=== PATIENT | female | born 1960 | race Caucasian/White ===

== ENCOUNTER 2019-07-14 09:30 | Inpatient (IN) | payer OTHER ==
[2019-07-14] MEDS ORDERED: Ondansetron 4 MG/2 ML SDV IVPUSH ONE (10:16)
[2019-07-14] MEDS ORDERED: Sodium Chloride 0.9% 10 ML Syringe FLUSH PRN ×2 (10:16→15:26)
[2019-07-14] MEDS ORDERED: HYDROmorphone 0.5 MG/0.5 ML Syringe IVPUSH ONE ×2 (10:16→12:26)
[2019-07-14] MEDS ORDERED: diphenhydrAMINE 50 MG/ML SDV IVPUSH ONE (10:17)
--- NOTE | 2019-07-14 10:21 | EDM.PDOC ---
ED HPI GENERAL MEDICAL PROBLEM - General Chief Complaint: General Stated Complaint: RECTAL PAIN Time Seen by Provider: 07/14/19 10:06 Source of Information: Reports: Patient, Family, RN Notes Reviewed History Limitations: Reports: No Limitations - History of Present Illness INITIAL COMMENTS - FREE TEXT/NARRATIVE: 58-year-old female presents emergency department with a complaint of abdominal pain she has a history of extensive abdominal surgeries does use Neulasta me she is also had troubles with hypomagnesemia, she usually controls her pain with tramadol however she has had increased abdominal pain with burning reflux type symptoms in her chest she also has a solitary kidney. No fevers no shortness of breath or chest pain she has noticed a change in her ileostomy output more liquidy Middle Abdomen Pain Score (Numeric/FACES): 8 - Related Data Allergies Allergy/AdvReac Type Severity Reaction Status Date / Time No Known Allergies Allergy Verified 07/14/19 09:52 Home Meds: Home Meds Acetaminophen [Acetaminophen Extra Strength] 1,000 mg PO Q4HR PRN 06/17/19 [ History] Cyanocobalamin (Vitamin B-12) [Cyanocobalamin Injection] 1 ml IM ASDIRECTED 12/28 [History] DULoxetine [Cymbalta] 60 mg PO DAILY 06/17/19 [History] Imipramine HCl 200 mg PO BEDTIME 06/17/19 [History] Magnesium Chloride [Mag Delay] 192 mg PO TID 06/17/19 [History] Melatonin 3 mg PO BEDTIME 06/17/19 [History] Nystatin [Nystatin Oint] 1 dose TOP BID PRN 06/17/19 [History] OLANZapine [ZyPREXA] 5 mg PO Q12HR PRN 06/17/19 [History] Ondansetron [Zofran ODT] 4 mg PO Q4HR PRN 06/17/19 [History] Pedi Multivit No.25/Folic Acid [Flintstones Multivit Chew Tab] 1 tab PO DAILY [History] SUMAtriptan [Imitrex] 50 mg PO BTNUNITS PRN 06/17/19 [History] tiZANidine [Zanaflex] 4 mg PO BID PRN 06/17/19 [History] traMADol [Ultram] 100 mg PO QID 06/17/19 [History] Past Medical History HEENT History: Reports: Impaired Vision Gastrointestinal History: Reports: Bowel Obstruction, Other (See Below) Other Gastrointestinal History: hernia, multiple bowel surgerys [employer]NE[employer]ING [employer] History: Reports: Neurological History: Reports: Migraines Psychiatric History: Reports: Anxiety Hematologic History: Reports: B12 Deficiency - Past Surgical History Head Surgeries/Procedures: Reports: None HEENT Surgical History: Reports: Adenoidectomy, Tonsillectomy Cardiovascular Surgical History: Reports: Cardiac Ablation GI Surgical History: Reports: Appendectomy, Colonoscopy, EGD, Other (See Below) Other GI Surgeries/Procedures: hernia, has iliostomy Female Surgical History: Reports: Hysterectomy Neurological Surgical History: Reports: None Dermatological Surgical History: Reports: None Social & Family History - Tobacco Use Smoking Status *Q: Never Smoker Second Hand Smoke Exposure: No - Caffeine Use Caffeine Use: Reports: None - Recreational Drug Use Recreational Drug Use: No ED ROS GENERAL - Review of Systems Review Of Systems: See Below Constitutional: Denies: Fever, Chills HEENT: Reports: No Symptoms Respiratory: Reports: No Symptoms Cardiovascular: Reports: No Symptoms GI/Abdominal: Reports: Abdominal Pain, Nausea. Denies: Vomiting Psychiatric: Reports: Anxiety ED EXAM, GENERAL - Physical Exam Exam: See Below Exam Limited By: No Limitations General Appearance: Alert, Mild Distress Head: Atraumatic, Normocephalic Neck: Normal Inspection, Supple, Non-Tender, Full Range of Motion Respiratory/Chest: No Respiratory Distress, Lungs Clear, Normal Breath Sounds, No Accessory Muscle Use, Chest Non-Tender Cardiovascular: Regular Rate, Rhythm, No Murmur GI/Abdominal: Soft, Tender Course - Vital Signs Last Recorded V/S: Last Vital Signs Temp 97.4 F 07/14/19 09:55 Pulse 84 07/14/19 13:56 Resp 10 L 07/14/19 13:56 BP 137/79 07/14/19 13:56 Pulse Ox 97 07/14/19 13:56 - Orders/Labs/Meds Orders: Active Orders 24 hr Category Date Time Status Peripheral IV Care [RC] . DIRECTED Care 07/14/19 10:16 Active Abdomen 1V Upright [CR] Stat Exams 07/14/19 10:19 Taken Lactated Ringers [Ringers, Lactated] 1,000 ml Med 07/14/19 10:30 Active IV ASDIRECTED Magnesium Sulfate/Water [Magnesium Sulfate in Water Med 07/14/19 11:22 Active Premix] 2 gm Premix Bag 1 bag IV ONETIME Sodium Chloride 0.9% [Saline Flush] Med 07/14/19 10:16 Active 10 ml FLUSH ASDIRECTED PRN Peripheral IV Insertion Adult [OM.PC] Urgent Oth 07/14/19 10:16 Ordered Medication Orders Lactated Ringer's (Ringers, Lactated) 1,000 mls @ 999 mls/hr IV ASDIRECTED CASSIE Last Admin: 07/14/19 10:50 Dose: 999 mls/hr Magnesium Sulfate 2 gm/ Premix 50 mls @ 12.5 mls/hr IV ONETIME ONE Stop: 07/14/19 15:21 Last Admin: 07/14/19 11:33 Dose: 12.5 mls/hr Sodium Chloride (Saline Flush) 10 ml FLUSH ASDIRECTED PRN PRN Reason: Keep Vein Open Last Admin: 07/14/19 10:51 Dose: 10 ml Labs: Laboratory Tests 07/14/19 07/14/19 07/14/19 Range/Units 10:24 10:24 10:24 WBC 6.1 (4.5-11.0) K/uL RBC 4.34 (3.30-5.50) M/uL Hgb 12.4 (12.0-15.0) g/dL Hct 39.9 (36.0-48.0) % MCV 92 (80-98) fL MCH 29 (27-31) pg MCHC 31 L (32-36) % Plt Count 211 (150-400) K/uL Neut % (Auto) 76 H (36-66) % Lymph % (Auto) 19 L (24-44) % [place] % (Auto) 5 (2-6) % Eos % (Auto) 0 L (2-4) % Baso % (Auto) 0 (0-1) % Sodium 137 L (140-148) mmol/L Potassium 4.2 (3.6-5.2) mmol/L Chloride 99 L (100-108) mmol/L Carbon Dioxide 22 (21-32) mmol/L Anion Gap 20.2 H (5.0-14.0) mmol/L BUN 16 (7-18) mg/dL Creatinine 1.5 H (0.6-1.0) mg/dL Est Cr Clr Drug Dosing 40.00 mL/min Estimated GFR (MDRD) 36 L (>60) Glucose 125 H (74-106) mg/dL Lactic Acid 3.7 H (0.4-2.0) mmol/L Calcium 10.4 H (8.5-10.1) mg/dL Magnesium (1.8-2.4) mg/dL Total Bilirubin 0.3 (0.2-1.0) mg/dL AST 24 (15-37) U/L ALT 41 (12-78) U/L Alkaline Phosphatase 167 H (46-116) U/L Troponin I < 0.017 (0.000-0.056) ng/mL Total Protein 8.8 H (6.4-8.2) g/dL Albumin 4.2 (3.4-5.0) g/dL Globulin 4.6 H (2.3-3.5) g/dL Albumin/Globulin Ratio 0.9 L (1.2-2.2) Lipase 86 (73-393) U/L 07/14/19 Range/Units 10:24 WBC (4.5-11.0) K/uL RBC (3.30-5.50) M/uL Hgb (12.0-15.0) g/dL Hct (36.0-48.0) % MCV (80-98) fL MCH (27-31) pg MCHC (32-36) % Plt Count (150-400) K/uL Neut % (Auto) (36-66) % Lymph % (Auto) (24-44) % [place] % (Auto) (2-6) % Eos % (Auto) (2-4) % Baso % (Auto) (0-1) % Sodium (140-148) mmol/L Potassium (3.6-5.2) mmol/L Chloride (100-108) mmol/L Carbon Dioxide (21-32) mmol/L Anion Gap (5.0-14.0) mmol/L BUN (7-18) mg/dL Creatinine (0.6-1.0) mg/dL Est Cr Clr Drug Dosing mL/min Estimated GFR (MDRD) (>60) Glucose (74-106) mg/dL Lactic Acid (0.4-2.0) mmol/L Calcium (8.5-10.1) mg/dL Magnesium 1.5 L (1.8-2.4) mg/dL Total Bilirubin (0.2-1.0) mg/dL AST (15-37) U/L ALT (12-78) U/L Alkaline Phosphatase (46-116) U/L Troponin I (0.000-0.056) ng/mL Total Protein (6.4-8.2) g/dL Albumin (3.4-5.0) g/dL Globulin (2.3-3.5) g/dL Albumin/Globulin Ratio (1.2-2.2) Lipase (73-393) U/L Meds: Medications Generic Name Dose Route Start Last Admin Trade Name Benignoq PRN Reason Stop Dose Admin Lactated Ringer's 1,000 mls @ 999 mls/hr 07/14/19 10:30 07/14/19 10:50 Ringers, Lactated IV 999 mls/hr ASDIRECTED CASSIE Administration Magnesium Sulfate 2 gm/ Premix 50 mls @ 12.5 mls/hr 07/14/19 11:22 07/14/19 11:33 IV 07/14/19 15:21 12.5 mls/hr ONETIME ONE Administration Sodium Chloride 10 ml 07/14/19 10:16 07/14/19 10:51 Saline Flush FLUSH 10 ml ASDIRECTED PRN Administration Keep Vein Open Discontinued Medications Generic Name Dose Route Start Last Admin Trade Name Freq PRN Reason Stop Dose Admin Diphenhydramine HCl 25 mg 07/14/19 10:17 07/14/19 10:55 Benadryl IVPUSH 07/14/19 10:18 25 mg ONETIME ONE Administration Hydromorphone HCl 0.5 mg 07/14/19 10:16 07/14/19 10:53 Dilaudid IVPUSH 07/14/19 10:17 0.5 mg ONETIME ONE Administration Hydromorphone HCl 1 mg 07/14/19 11:24 07/14/19 11:31 Dilaudid IVPUSH 07/14/19 11:25 1 mg ONETIME ONE Administration Hydromorphone HCl 0.5 mg 07/14/19 12:26 07/14/19 12:32 Dilaudid IVPUSH 07/14/19 12:27 0.5 mg ONETIME ONE Administration Lactated Ringer's 1,000 mls @ 999 mls/hr 07/14/19 11:31 07/14/19 11:34 Ringers, Lactated IV 07/14/19 12:31 999 mls/hr BOLUS ONE Administration Ketamine HCl 15 mg 07/14/19 12:27 07/14/19 12:35 Ketalar IV 07/14/19 12:28 15 mg ONETIME ONE Administration Ondansetron HCl 4 mg 07/14/19 10:16 07/14/19 10:55 Zofran IVPUSH 07/14/19 10:17 4 mg ONETIME ONE Administration - Re-Assessments/Exams Free Text/Narrative Re-Assessment/Exam: 07/14/19 14:49 I did have the opportunity to review old records she has been evaluated at [facility] and been getting most of her care at [facility] several visits throughout the last year and and abruptly quit sometime in December reviewed the note at that time was misuse of tramadol tablets she had received 248 tablets of tramadol on July 05. She does have a history of chronic abdominal pain with difficulty with narcotics does follow with the pain clinic has been managed with tramadol for some time however very high dose. Also review of the [place] medical prescription monitoring program was done as well her score is 700 Departure - Departure Time of Disposition: 15:04 Disposition: Admitted As Inpatient 65 Condition: Poor Clinical Impression: Chronic abdominal pain, Hypomagnesemia - Discharge Information Referrals: Lisa Gerber MD [Primary Care Provider] - Forms: ED Department Discharge Sepsis Event Note - Evaluation Sepsis Screening Result: No Definite Risk - Focused Exam Vital Signs: Vital Signs Temp Pulse Resp BP Pulse Ox 07/14/19 13:56 84 10 L 137/79 97 07/14/19 13:26 83 10 L 161/80 H 98 07/14/19 12:56 99 19 187/91 H 100 07/14/19 12:47 94 16 196/98 H 100 07/14/19 12:42 95 11 L 228/122 H 100 07/14/19 12:41 95 12 205/116 H 94 L 07/14/19 12:39 99 14 187/102 H 95 07/14/19 12:26 90 16 145/82 H 99 07/14/19 09:55 97.4 F 116 H 18 135/97 H 100 07/14/19 09:44 97.4 F 116 H 18 135/97 H 100 Date Exam was Performed: 07/14/19 Time Exam was Performed: 14:49 - My Orders Last 24 Hours: My Active Orders 07/14/19 10:16 Peripheral IV Care [RC] . DIRECTED Sodium Chloride 0.9% [Saline Flush] 10 ml FLUSH ASDIRECTED PRN Peripheral IV Insertion Adult [OM.PC] Urgent 07/14/19 10:19 Abdomen 1V Upright [CR] Stat 07/14/19 10:30 Lactated Ringers [Ringers, Lactated] 1,000 ml IV ASDIRECTED 07/14/19 11:22 Magnesium Sulfate/Water [Magnesium Sulfate in Water Premix] 2 gm Premix Bag 1 bag IV ONETIME - Assessment/Plan Last 24 Hours: My Active Orders 07/14/19 10:16 Peripheral IV Care [RC] . DIRECTED Sodium Chloride 0.9% [Saline Flush] 10 ml FLUSH ASDIRECTED PRN Peripheral IV Insertion Adult [OM.PC] Urgent 07/14/19 10:19 Abdomen 1V Upright [CR] Stat 07/14/19 10:30 Lactated Ringers [Ringers, Lactated] 1,000 ml IV ASDIRECTED 07/14/19 11:22 Magnesium Sulfate/Water [Magnesium Sulfate in Water Premix] 2 gm Premix Bag 1 bag IV ONETIME Plan: Assessment Acuity = acute on chronic Site and laterality = abdominal pain Etiology = unknown Manifestations = chronic narcotic use Location of injury = Home Lab values = CBC unremarkable creatinine elevated 1.5 consistent chronic renal failure stage G4 lactic acid elevated 3.7 consistent lactic acidosis magnesium low at 1.5 consistent with hypomagnesemia troponin was negative CT of the abdomen shows dilated gallbladder questionable infiltrate versus inflammatory marker right lower lung field otherwise no acute abdominal process to explain the abdominal pain Plan Come discussed case with hospitalist on-call at 1430 currently agreed to come evaluate patient emergency department for admission. Did review the [place] prescription drug monitoring program as well as old records from [facility] This note was dictated using [employer] voice recognition software please call with any questions on syntax or grammar.
[2019-07-14] MEDS ORDERED: Lactated Ringers 1,000 ML IV SCH (10:30)
[2019-07-14] MEDS ORDERED: Magnesium Sulfate/Water 2 GM in Premix Bag 1 BAG IV ONE (11:22)
[2019-07-14] MEDS ORDERED: HYDROmorphone 1 MG/ML Syringe IVPUSH ONE (11:24)
[2019-07-14] MEDS ORDERED: Lactated Ringers 1,000 ML IV ONE (11:31)
[2019-07-14] MEDS ORDERED: Ketamine 500 MG/5 ML MDV IV ONE (12:27)
--- NOTE | 2019-07-14 13:15 | CRLCT ---
General abdominal pain. Technique: Noncontrast CT abdomen pelvis. Coronal sagittal reformatted images obtained COMPARISON: No comparison studies are available. FINDINGS: Heart size is normal. Right basilar nodular opacities. No effusion. Splenomegaly measuring 15.2 cm. Hepatomegaly. Unenhanced liver is otherwise unremarkable. Biliary dilatation. Mild distention the gallbladder. No pericholecystic fluid or inflammatory change. Pancreas is unremarkable. Adrenal glands are unremarkable. Left nephrectomy right kidney is unremarkable. Total colectomy. Left ostomy. Mildly prominent fluid-filled small bowel loops. No transition pulmonary findings probably reflect ileus. Inflammatory change seen. Normal caliber abdominal aorta. No suspicious bony lesions. No suspicious bony lesions. Impression: 1. Right lower lobe nodular opacities may represent pneumonia or other infectious inflammatory etiologies. 2. No acute findings in the abdomen or pelvis. Mildly prominent fluid-filled small bowel loops probably reflecting ileus without transition point. 3. Hepatomegaly splenomegaly. 4. Gallbladder mildly distended. No pericholecystic fluid or inflammatory change seen. Please note that all CT scans at this facility use dose modulation, iterative reconstruction, and/or weight-based dosing when appropriate to reduce radiation dose to as low as reasonably achievable. Dictated by Carol Garcia MD @ Jul 14 2019 12:37PM (Electronically Signed)
--- NOTE | 2019-07-14 15:25 | PCM.HP.2 ---
H&P History of Present Illness - General Date of Service: 07/14/19 Admit Problem/Dx: Admission Diagnosis/Problem Admission Diagnosis/Problem Abdominal pain Source of Information: Patient, Family, Provider, RN Notes Reviewed History Limitations: Reports: No Limitations - History of Present Illness Initial Comments - Free Text/Narative: Ms. Foley is a 58-year-old woman who was admitted to observation status through the emergency department for further management of acute on chronic abdominal pain and hypomagnesemia. She has a longstanding history of chronic abdominal pain and has had multiple previous abdominal surgeries. Previous history of inflammatory bowel disease, Crohn's disease versus ulcerative colitis. She is status post total colectomy with an ileostomy. Much of her care has been through the [facility] in [place]. 3 days prior to admission she began to note increased abdominal pain from her baseline with symptoms of nausea, poor oral intake, and liquid stool through the ostomy. This progressed to the point today where she came into the emergency department for evaluation. She was found to be tachycardic, vital signs were otherwise stable with no significant temperature elevation. White blood cell count is within normal range. Lactic acid level mildly elevated at 3.7. CT scan of the abdomen and pelvis showed no obvious acute abdominal abnormality to explain her increase in pain or other symptoms. Incidental finding noted on CT scan was inflammatory changes noted in the lung. She denies respiratory symptoms including shortness of breath or cough. Middle Abdomen Pain Score (Numeric/FACES): 8 - Related Data Allergies/Adverse Reactions: Allergies Allergy/AdvReac Type Severity Reaction Status Date / Time No Known Allergies Allergy Verified 07/14/19 09:52 Home Medications: Home Meds Acetaminophen [Acetaminophen Extra Strength] 1,000 mg PO Q4HR PRN 06/17/19 [ History] Cyanocobalamin (Vitamin B-12) [Cyanocobalamin Injection] 1 ml IM ASDIRECTED 12/28 [History] DULoxetine [Cymbalta] 60 mg PO DAILY 06/17/19 [History] Imipramine HCl 200 mg PO BEDTIME 06/17/19 [History] Magnesium Chloride [Mag Delay] 192 mg PO TID 06/17/19 [History] Melatonin 3 mg PO BEDTIME 06/17/19 [History] Nystatin [Nystatin Oint] 1 dose TOP BID PRN 06/17/19 [History] OLANZapine [ZyPREXA] 5 mg PO Q12HR PRN 06/17/19 [History] Ondansetron [Zofran ODT] 4 mg PO Q4HR PRN 06/17/19 [History] Pedi Multivit No.25/Folic Acid [Flintstones Multivit Chew Tab] 1 tab PO DAILY [History] SUMAtriptan [Imitrex] 50 mg PO BTNUNITS PRN 06/17/19 [History] tiZANidine [Zanaflex] 4 mg PO BID PRN 06/17/19 [History] traMADol [Ultram] 100 mg PO QID 06/17/19 [History] Past Medical History HEENT History: Reports: Impaired Vision Cardiovascular History: Reports: None Gastrointestinal History: Reports: Bowel Obstruction, Other (See Below) Other Gastrointestinal History: hernia, multiple bowel surgerys Genitourinary History: Reports: None [employer] DIRECTOR History: Reports: Neurological History: Reports: Migraines Psychiatric History: Reports: Anxiety Hematologic History: Reports: B12 Deficiency - Past Surgical History Head Surgeries/Procedures: Reports: None HEENT Surgical History: Reports: Adenoidectomy, Tonsillectomy Cardiovascular Surgical History: Reports: Cardiac Ablation GI Surgical History: Reports: Appendectomy, Colonoscopy, EGD, Other (See Below) Other GI Surgeries/Procedures: hernia, has iliostomy Female Surgical History: Reports: Hysterectomy Neurological Surgical History: Reports: None Dermatological Surgical History: Reports: None Social & Family History - Tobacco Use Smoking Status *Q: Never Smoker Second Hand Smoke Exposure: No - Caffeine Use Caffeine Use: Reports: None - Recreational Drug Use Recreational Drug Use: No H&P Review of Systems - Review of Systems: Review Of Systems: See Below General: Reports: Weakness, Fatigue, Decreased Appetite. Denies: Fever, Chills HEENT: Reports: No Symptoms Pulmonary: Reports: No Symptoms Cardiovascular: Reports: No Symptoms Gastrointestinal: Reports: Abdominal Pain, Anorexia, Diarrhea, Nausea. Denies: Difficulty Swallowing, Distension, Hematemesis, Hematochezia, Melena, Vomiting Genitourinary: Reports: No Symptoms Musculoskeletal: Reports: No Symptoms Skin: Reports: No Symptoms Psychiatric: Reports: No Symptoms Neurological: Reports: No Symptoms Hematologic/Lymphatic: Reports: No Symptoms Immunologic: Reports: No Symptoms Exam - Exam Exam: See Below - Vital Signs Vital Signs: Last Vital Signs Temp 97.4 F 07/14/19 09:55 Pulse 95 07/14/19 15:19 Resp 12 07/14/19 15:19 BP 141/72 H 07/14/19 15:19 Pulse Ox 100 07/14/19 15:19 Weight: 177 lb 14.609 oz - Exam Quality Assessment: DVT Prophylaxis General: Alert, Oriented, Cooperative, Moderate Distress HEENT: Conjunctiva Clear, Hearing Intact, Normal Nasal Septum, Posterior Pharynx Clear, Pupils Equal. No: Mucosa Moist & [place] Neck: Supple, Trachea Midline, +2 Carotid Pulse wo Bruit Lungs: Clear to Auscultation, Normal Respiratory Effort Cardiovascular: Regular Rate, Regular Rhythm, Normal S1, Normal S2. No: Systolic Murmur, Diastolic Murmur GI/Abdominal Exam: Soft, Non-Tender, No Organomegaly, No Distention Back Exam: Normal Inspection, Full Range of Motion Extremities: Non-Tender, No Pedal Edema Skin: Warm, Dry, Intact Neurological: Cranial Nerves Intact, Strength Equal Bilateral, Normal Speech, Normal Tone, Sensation Intact. No: Focal Deficit Neuro Extensive - Mental Status: Alert, Oriented x3, Normal Mood/Affect, Normal Cognition, Memory Intact - Patient Data Lab Results Last 24 hrs: Laboratory Results - last 24 hr 07/14/19 07/14/19 07/14/19 Range/Units 10:24 10:24 10:24 WBC 6.1 (4.5-11.0) K/uL RBC 4.34 (3.30-5.50) M/uL Hgb 12.4 (12.0-15.0) g/dL Hct 39.9 (36.0-48.0) % MCV 92 (80-98) fL MCH 29 (27-31) pg MCHC 31 L (32-36) % Plt Count 211 (150-400) K/uL Neut % (Auto) 76 H (36-66) % Lymph % (Auto) 19 L (24-44) % [place] % (Auto) 5 (2-6) % Eos % (Auto) 0 L (2-4) % Baso % (Auto) 0 (0-1) % Sodium 137 L (140-148) mmol/L Potassium 4.2 (3.6-5.2) mmol/L Chloride 99 L (100-108) mmol/L Carbon Dioxide 22 (21-32) mmol/L Anion Gap 20.2 H (5.0-14.0) mmol/L BUN 16 (7-18) mg/dL Creatinine 1.5 H (0.6-1.0) mg/dL Est Cr Clr Drug Dosing 40.00 mL/min Estimated GFR (MDRD) 36 L (>60) Glucose 125 H (74-106) mg/dL Lactic Acid 3.7 H (0.4-2.0) mmol/L Calcium 10.4 H (8.5-10.1) mg/dL Magnesium (1.8-2.4) mg/dL Total Bilirubin 0.3 (0.2-1.0) mg/dL AST 24 (15-37) U/L ALT 41 (12-78) U/L Alkaline Phosphatase 167 H (46-116) U/L Troponin I < 0.017 (0.000-0.056) ng/mL Total Protein 8.8 H (6.4-8.2) g/dL Albumin 4.2 (3.4-5.0) g/dL Globulin 4.6 H (2.3-3.5) g/dL Albumin/Globulin Ratio 0.9 L (1.2-2.2) Lipase 86 (73-393) U/L 07/14/19 Range/Units 10:24 WBC (4.5-11.0) K/uL RBC (3.30-5.50) M/uL Hgb (12.0-15.0) g/dL Hct (36.0-48.0) % MCV (80-98) fL MCH (27-31) pg MCHC (32-36) % Plt Count (150-400) K/uL Neut % (Auto) (36-66) % Lymph % (Auto) (24-44) % [place] % (Auto) (2-6) % Eos % (Auto) (2-4) % Baso % (Auto) (0-1) % Sodium (140-148) mmol/L Potassium (3.6-5.2) mmol/L Chloride (100-108) mmol/L Carbon Dioxide (21-32) mmol/L Anion Gap (5.0-14.0) mmol/L BUN (7-18) mg/dL Creatinine (0.6-1.0) mg/dL Est Cr Clr Drug Dosing mL/min Estimated GFR (MDRD) (>60) Glucose (74-106) mg/dL Lactic Acid (0.4-2.0) mmol/L Calcium (8.5-10.1) mg/dL Magnesium 1.5 L (1.8-2.4) mg/dL Total Bilirubin (0.2-1.0) mg/dL AST (15-37) U/L ALT (12-78) U/L Alkaline Phosphatase (46-116) U/L Troponin I (0.000-0.056) ng/mL Total Protein (6.4-8.2) g/dL Albumin (3.4-5.0) g/dL Globulin (2.3-3.5) g/dL Albumin/Globulin Ratio (1.2-2.2) Lipase (73-393) U/L Result Diagrams: 07/14/19 10:24 07/14/19 10:24 Sepsis Event Note - Evaluation Sepsis Screening Result: No Definite Risk - Focused Exam Vital Signs: Vital Signs Temp Pulse Resp BP Pulse Ox 07/14/19 15:19 95 12 141/72 H 100 07/14/19 13:56 84 10 L 137/79 97 07/14/19 13:26 83 10 L 161/80 H 98 07/14/19 12:56 99 19 187/91 H 100 07/14/19 12:47 94 16 196/98 H 100 07/14/19 12:42 95 11 L 228/122 H 100 07/14/19 12:41 95 12 205/116 H 94 L 07/14/19 12:39 99 14 187/102 H 95 07/14/19 12:26 90 16 145/82 H 99 07/14/19 09:55 97.4 F 116 H 18 135/97 H 100 07/14/19 09:44 97.4 F 116 H 18 135/97 H 100 Date Exam was Performed: 07/14/19 Time Exam was Performed: 15:20 *Q Meaningful Use (ADM) - VTE Risk Assess *Q Each Risk Factor Represents 1 Point: Age 41 - 59 years, Obesity ( BMI > 25 kg/m2 ) Total Score 1 Point Risk Factors: 2 Each Risk Factor Represents 2 Points: None Total Score 2 Point Risk Factors: 0 Each Risk Factor Represents 3 Points: None Total Score 3 Point Risk Factors: 0 Each Risk Factor Represents 5 Points: None Total Score 5 Point Risk Factors: 0 Venous Thromboembolism Risk Factor Score *Q: 2 Problem List Initiated/Reviewed/Updated: Yes Orders Last 24hrs: Active Orders 24 hr Category Date Time Status Patient Status Manage Transfer [TRANSFER] Routine ADT 07/14/19 15:13 Active Peripheral IV Care [RC] . DIRECTED Care 07/14/19 10:16 Active Abdomen 1V Upright [CR] Stat Exams 07/14/19 10:19 Taken Lactated Ringers [Ringers, Lactated] 1,000 ml Med 07/14/19 10:30 Active IV ASDIRECTED Magnesium Sulfate/Water [Magnesium Sulfate in Water Med 07/14/19 11:22 Active Premix] 2 gm Premix Bag 1 bag IV ONETIME Sodium Chloride 0.9% [Saline Flush] Med 07/14/19 10:16 Active 10 ml FLUSH ASDIRECTED PRN Peripheral IV Insertion Adult [OM.PC] Urgent Oth 07/14/19 10:16 Ordered Resuscitation Status Routine Resus Stat 07/14/19 15:15 Ordered Medication Orders Lactated Ringer's (Ringers, Lactated) 1,000 mls @ 999 mls/hr IV ASDIRECTED CASSIE Last Admin: 07/14/19 10:50 Dose: 999 mls/hr Magnesium Sulfate 2 gm/ Premix 50 mls @ 12.5 mls/hr IV ONETIME ONE Stop: 07/14/19 15:21 Last Admin: 07/14/19 11:33 Dose: 12.5 mls/hr Sodium Chloride (Saline Flush) 10 ml FLUSH ASDIRECTED PRN PRN Reason: Keep Vein Open Last Admin: 07/14/19 10:51 Dose: 10 ml Assessment/Plan Comment:: ASSESSMENT AND PLAN ACUTE ON CHRONIC ABDOMINAL PAIN-CT scan unremarkable for specific etiology. With recent symptoms of nausea and more liquid stool, consider underlying viral gastroenteritis. -IV fluids for hydration -Pain and nausea medication as needed -Regular diet -Reassess in a.m. -Protonix 40 mg p.o. twice daily ELEVATED LACTIC ACID-likely secondary to dehydration, no evidence of underlying infectious process or sepsis -IV fluids for hydration -Reassess lactic acid level later today and in a.m. DEHYDRATION-likely secondary to poor oral intake and increased output of liquid stool -IV fluids as above INFLAMMATORY CHANGES RIGHT LOWER LOBE-no evidence of infectious process at this time and she has had no symptoms of respiratory compromise. -Outpatient follow-up CHRONIC KIDNEY DISEASE STAGE III-previous history of nephrectomy -Monitor urine output and renal function during hospital stay MAINTENANCE ISSUES -DVT prophylaxis; Lovenox 40 mg subcu daily -GI prophylaxis; Protonix as above -Law catheter; not indicated -Nutrition; regular diet -Nicotine dependence; not required CODE STATUS-FULL CODE ADMISSION STATUS-this patient will be admitted to observation status, expect no more than a one night hospital stay for evaluation and management of problems as outlined above. DISPOSITION-anticipate discharge to home after the hospital stay. PRIMARY CARE PROVIDER-Dr. Gerber - Mortality Measure Prognosis:: Good
[2019-07-14] MEDS ORDERED: Ondansetron 4 MG Tab.DIS PO PRN (15:26)
[2019-07-14] MEDS ORDERED: OLANZapine 5 MG Tab PO PRN (15:26)
[2019-07-14] MEDS: Magnesium Oxide 400 MG Tab PO SCH ×2 (16:14→20:39)
[2019-07-14] MEDS: Pantoprazole 40 MG Tab.CR PO SCH (16:14)
[2019-07-14] MEDS: Enoxaparin 40 MG/0.4 ML Syringe SUBCUT SCH (16:14)
[2019-07-14] MEDS: HYDROmorphone 0.5 MG/0.5 ML Syringe IVPUSH PRN ×4 (16:15→22:51)
[2019-07-14] MEDS: Lactated Ringers 1,000 ML IV SCH ×2 (17:05→22:55)
[2019-07-14] MEDS: Melatonin 3 MG Tab PO SCH (20:39)
[2019-07-15] MEDS: HYDROmorphone 0.5 MG/0.5 ML Syringe IVPUSH PRN ×11 (00:56→22:30)
[2019-07-15] MEDS: Lactated Ringers 1,000 ML IV SCH (07:19)
[2019-07-15] MEDS: Pantoprazole 40 MG Tab.CR PO SCH ×2 (07:22→16:03)
[2019-07-15] MEDS: Acetaminophen 325 MG Tab PO PRN ×3 (07:36→22:29)
[2019-07-15] MEDS ORDERED: Sodium Chloride 0.9% 1,000 ML IV ONE (09:00)
[2019-07-15] MEDS: DULoxetine 30 MG Cap PO SCH (09:13)
[2019-07-15] MEDS: Magnesium Oxide 400 MG Tab PO SCH (09:13)
[2019-07-15] MEDS: cefTRIAXone 1 GM in Sodium Chloride 0.9% 50 ML IV SCH (09:14)
--- NOTE | 2019-07-15 10:17 | CR ---
Abdomen 1V Upright CLINICAL HISTORY: Pain FINDINGS: There are surgical clips in the abdomen and pelvis. No free air is identified. Small intestinal configuration is nonacute. There are some calcifications in the gluteal muscles which are likely previous injection sites IMPRESSION: Nonacute intestinal gas pattern Previous abdominal surgery
--- NOTE | 2019-07-15 10:33 | CR ---
CHEST: Portable 07/15/2019 at 09 26 CLINICAL HISTORY:Sore throat, cough COMPARISON:None FINDINGS: Heart size and pulmonary vascular are normal. No infiltrate effusion or pneumothorax is seen. Patient has an [id number]-[id number] catheter from the right subclavian approach. Impression: No acute cardiopulmonary process.
[2019-07-15] MEDS: Doxycycline 100 MG in Sodium Chloride 0.9% 100 ML IV SCH ×3 (10:38→22:28)
[2019-07-15] MEDS: Magnesium Sulfate/Water 2 GM in Premix Bag 1 BAG IV SCH ×3 (10:39→21:55)
[2019-07-15] MEDS: Sodium Chloride 0.9% 1,000 ML IV SCH (10:40)
[2019-07-15] MEDS: Benzocaine/Cetylpyridinium/Menthol Lozenge MUCMEM PRN ×2 (12:13→22:29)
--- NOTE | 2019-07-15 13:15 | PCM.PN ---
- General Info Date of Service: 07/15/19 Subjective Update: Overnight the patient developed a high fever. She has been coughing but does not feel short of breath. Abdominal pain is a little better. Still not much output from her ileostomy. Lactic acid level had been slowly improving but has risen again this morning. She does complain of a sore throat. No significant myalgias. She has been placed in isolation with concern that she may have COVID19 infection. When she had the fever this morning blood cultures were obtained and she was started on antibiotics for suspected pneumonia. Functional Status: Reports: Pain Controlled, Tolerating Diet - Review of Systems General: Reports: Fever Pulmonary: Reports: Cough - Patient Data Vitals - Most Recent: Last Vital Signs Temp 37.4 C 07/15/19 11:00 Pulse 101 H 07/15/19 11:00 Resp 18 07/15/19 11:00 BP 119/60 07/15/19 11:00 Pulse Ox 95 07/15/19 11:00 Weight - Most Recent: 80.7 kg I&O - Last 24 Hours: Intake & Output 07/14/19 07/15/19 07/15/19 22:59 06:59 14:59 Intake Total 240 2149 1692 Output Total 500 250 Balance -260 2149 1442 Lab Results Last 24 Hours: Laboratory Results - last 24 hr 07/14/19 07/15/19 07/15/19 Range/Units 19:00 04:00 04:00 WBC (4.5-11.0) K/uL RBC (3.30-5.50) M/uL Hgb (12.0-15.0) g/dL Hct (36.0-48.0) % MCV (80-98) fL MCH (27-31) pg MCHC (32-36) % Plt Count (150-400) K/uL D-Dimer, Quantitative (0.0-400.0) ng/mL Sodium 129 L (140-148) mmol/L Potassium 3.7 (3.6-5.2) mmol/L Chloride 98 L (100-108) mmol/L Carbon Dioxide 22 (21-32) mmol/L Anion Gap 12.7 (5.0-14.0) mmol/L BUN 12 (7-18) mg/dL Creatinine 1.3 H (0.6-1.0) mg/dL Est Cr Clr Drug Dosing 46.16 mL/min Estimated GFR (MDRD) 42 L (>60) Glucose 160 H (74-106) mg/dL Lactic Acid 2.9 H 4.2 H (0.4-2.0) mmol/L Calcium 8.4 L D (8.5-10.1) mg/dL Magnesium 1.3 L (1.8-2.4) mg/dL Lactate Dehydrogenase (82-234) U/L C-Reactive Protein (0.0-0.3) mg/dL Procalcitonin ng/mL 07/15/19 07/15/19 07/15/19 Range/Units 08:40 08:40 08:40 WBC 5.3 (4.5-11.0) K/uL RBC 2.89 L (3.30-5.50) M/uL Hgb 8.3 L D (12.0-15.0) g/dL Hct 27.1 L (36.0-48.0) % MCV 94 (80-98) fL MCH 29 (27-31) pg MCHC 31 L (32-36) % Plt Count 96 L (150-400) K/uL D-Dimer, Quantitative 473 H (0.0-400.0) ng/mL Sodium (140-148) mmol/L Potassium (3.6-5.2) mmol/L Chloride (100-108) mmol/L Carbon Dioxide (21-32) mmol/L Anion Gap (5.0-14.0) mmol/L BUN (7-18) mg/dL Creatinine (0.6-1.0) mg/dL Est Cr Clr Drug Dosing mL/min Estimated GFR (MDRD) (>60) Glucose (74-106) mg/dL Lactic Acid (0.4-2.0) mmol/L Calcium (8.5-10.1) mg/dL Magnesium (1.8-2.4) mg/dL Lactate Dehydrogenase 126 (82-234) U/L C-Reactive Protein (0.0-0.3) mg/dL Procalcitonin ng/mL 07/15/19 07/15/19 Range/Units 08:40 08:40 WBC (4.5-11.0) K/uL RBC (3.30-5.50) M/uL Hgb (12.0-15.0) g/dL Hct (36.0-48.0) % MCV (80-98) fL MCH (27-31) pg MCHC (32-36) % Plt Count (150-400) K/uL D-Dimer, Quantitative (0.0-400.0) ng/mL Sodium (140-148) mmol/L Potassium (3.6-5.2) mmol/L Chloride (100-108) mmol/L Carbon Dioxide (21-32) mmol/L Anion Gap (5.0-14.0) mmol/L BUN (7-18) mg/dL Creatinine (0.6-1.0) mg/dL Est Cr Clr Drug Dosing mL/min Estimated GFR (MDRD) (>60) Glucose (74-106) mg/dL Lactic Acid (0.4-2.0) mmol/L Calcium (8.5-10.1) mg/dL Magnesium (1.8-2.4) mg/dL Lactate Dehydrogenase (82-234) U/L C-Reactive Protein 9.32 H (0.0-0.3) mg/dL Procalcitonin 6.77 H* ng/mL Eliud Results Last 24 Hours: Microbiology 07/15/19 10:24 Influenza Type A Antigen Screen - Final Nasal Aspirate, Unspecified NEGATIVE INFLUENZA A VIRUS AG REFERENCE RANGE: NEGATIVE Influenza Type B Antigen Screen - Final NEGATIVE INFLUENZA B VIRUS AG REFERENCE RANGE: NEGATIVE 07/15/19 10:24 Group A Streptococcus Rapid Screen - Final Throat NEGATIVE STREP A SCREEN REFERENCE RANGE: NEGATIVE Med Orders - Current: Current Medications Acetaminophen (Tylenol) 650 mg PO Q4H PRN PRN Reason: Pain (Mild 1-3)/fever Last Admin: 07/15/19 07:36 Dose: 650 mg Benzocaine/Menthol (Cepacol Sore Throat) 1 lozenge MUCMEM Q2H PRN PRN Reason: Sore Throat Last Admin: 07/15/19 12:13 Dose: 1 polina Duloxetine HCl (Cymbalta) 60 mg PO DAILY [facility] Last Admin: 07/15/19 09:13 Dose: 60 mg Enoxaparin Sodium (Lovenox) 40 mg SUBCUT Q24H [facility] Last Admin: 07/14/19 16:14 Dose: 40 mg Hydromorphone HCl (Dilaudid) 0.5 mg IVPUSH Q2H PRN PRN Reason: Pain Last Admin: 07/15/19 11:52 Dose: 0.5 mg Ceftriaxone Sodium 1 gm/ (Sodium Chloride) 50 mls @ 100 mls/hr IV Q24H [facility] Last Admin: 07/15/19 09:14 Dose: 100 mls/hr Doxycycline Hyclate 100 mg/ (Sodium Chloride) 100 mls @ 100 mls/hr IV Q12H [facility] Last Admin: 07/15/19 10:38 Dose: 100 mls/hr Sodium Chloride (Normal Saline) 1,000 mls @ 25 mls/hr IV ASDIRECTED [facility] Last Admin: 07/15/19 10:40 Dose: 25 mls/hr Magnesium Sulfate 2 gm/ Premix 50 mls @ 25 mls/hr IV Q6H [facility] Stop: 07/16/19 05:59 Last Admin: 07/15/19 10:39 Dose: 25 mls/hr Imipramine HCl (Imipramine Hcl) 200 mg PO BEDTIME [facility] Last Admin: 07/14/19 20:39 Dose: 200 mg Melatonin (Melatonin) 3 mg PO BEDTIME [facility] Last Admin: 07/14/19 20:39 Dose: 3 mg Olanzapine (Zyprexa) 5 mg PO Q12H PRN PRN Reason: Other Ondansetron HCl (Zofran Odt) 4 mg PO Q4H PRN PRN Reason: Other Pantoprazole Sodium (Protonix) 40 mg PO BIDAC [facility] Last Admin: 07/15/19 07:22 Dose: 40 mg Sodium Chloride (Saline Flush) 10 ml FLUSH ASDIRECTED PRN PRN Reason: Keep Vein Open Tizanidine HCl (Zanaflex) 4 mg PO BID PRN PRN Reason: Other Discontinued Medications Diphenhydramine HCl (Benadryl) 25 mg IVPUSH ONETIME ONE Stop: 07/14/19 10:18 Last Admin: 07/14/19 10:55 Dose: 25 mg Hydromorphone HCl (Dilaudid) 0.5 mg IVPUSH ONETIME ONE Stop: 07/14/19 10:17 Last Admin: 07/14/19 10:53 Dose: 0.5 mg Hydromorphone HCl (Dilaudid) 1 mg IVPUSH ONETIME ONE Stop: 07/14/19 11:25 Last Admin: 07/14/19 11:31 Dose: 1 mg Hydromorphone HCl (Dilaudid) 0.5 mg IVPUSH ONETIME ONE Stop: 07/14/19 12:27 Last Admin: 07/14/19 12:32 Dose: 0.5 mg Lactated Ringer's (Ringers, Lactated) 1,000 mls @ 999 mls/hr IV ASDIRECTED [facility] Last Admin: 07/14/19 10:50 Dose: 999 mls/hr Magnesium Sulfate 2 gm/ Premix 50 mls @ 12.5 mls/hr IV ONETIME ONE Stop: 07/14/19 15:21 Last Admin: 07/14/19 11:33 Dose: 12.5 mls/hr Lactated Ringer's (Ringers, Lactated) 1,000 mls @ 999 mls/hr IV BOLUS ONE Stop: 07/14/19 12:31 Last Admin: 07/14/19 11:34 Dose: 999 mls/hr Lactated Ringer's (Ringers, Lactated) 1,000 mls @ 125 mls/hr IV ASDIRECTED [facility] Last Admin: 07/15/19 07:19 Dose: 125 mls/hr Sodium Chloride (Normal Saline) 1,000 mls @ 999 mls/hr IV ASDIRECTED ONE Stop: 07/15/19 10:00 Last Admin: 07/15/19 09:19 Dose: 999 mls/hr Ketamine HCl (Ketalar) 15 mg IV ONETIME ONE Stop: 07/14/19 12:28 Last Admin: 07/14/19 12:35 Dose: 15 mg Magnesium Oxide (Magnesium Oxide) 400 mg PO TID [facility] Last Admin: 07/15/19 09:13 Dose: 400 mg Ondansetron HCl (Zofran) 4 mg IVPUSH ONETIME ONE Stop: 07/14/19 10:17 Last Admin: 07/14/19 10:55 Dose: 4 mg Sodium Chloride (Saline Flush) 10 ml FLUSH ASDIRECTED PRN PRN Reason: Keep Vein Open Last Admin: 07/14/19 10:51 Dose: 10 ml - Exam Quality Assessment: No: Supplemental Oxygen General: Alert, Oriented, Cooperative, No Acute Distress Lungs: Normal Respiratory Effort, Crackles (right lung base) Cardiovascular: Regular Rate, Regular Rhythm GI/Abdominal Exam: Soft, No Distention Extremities: No Pedal Edema Psy/Mental Status: Alert, Normal Affect Sepsis Event Note - Evaluation Sepsis Screening Result: Severe Sepsis Risk - Focused Exam Vital Signs: Vital Signs Temp Temp Pulse Resp BP Pulse Ox 07/15/19 11:00 37.4 C 101 H 18 119/60 95 07/15/19 08:06 37.4 C 07/15/19 07:36 39.1 C H 07/15/19 07:00 39.1 C H 116 H 18 129/96 H 94 L 07/15/19 03:00 37.9 C 107 H 16 130/62 94 L Date Exam was Performed: 07/15/19 Time Exam was Performed: 13:54 - Problem List Review Problem List Initiated/Reviewed/Updated: Yes - My Orders Last 24 Hours: My Active Orders 07/15/19 08:33 Precautions [COMM] Routine 07/15/19 08:55 CULTURE BLOOD [BC] Routine 07/15/19 09:30 MISCELLANEOUS REFERENCE TEST Routine 07/15/19 10:00 Magnesium Sulfate/Water [Magnesium Sulfate in Water Premix] 2 gm Premix Bag 1 bag IV Q6H Sodium Chloride 0.9% [Normal Saline] 1,000 ml IV ASDIRECTED 07/15/19 10:23 Admission Status [Patient Status] [ADT] Routine 07/15/19 10:24 CULTURE STREP A CONFIRMATION [RM] Routine STREP SCRN A RAPID W CULT CONF [RM] Routine 07/15/19 10:25 Benzocaine/Cetylpyrd/Menthol [Cepacol Sore Throat] 1 lozenge MUCMEM Q2H PRN 07/16/19 05:00 CBC W/O DIFF,HEMOGRAM [HEME] Timed (1) COMPREHENSIVE METABOLIC PN,CMP [CHEM] Timed LACTIC ACID [CHEM] Timed - Plan Plan:: ASSESSMENT AND PLAN RIGHT LOWER LOBE PNEUMONIA-CT scan unremarkable abdominal etiology but did show an opacity in the right lower lobe. Patient now has fever and increased cough and I suspect this is related to the right lower lobe infection. She does have a high procalcitonin which makes me think this is a bacterial infection but she also has some findings that could be consistent with a COVID19 infection. She has been placed in isolation. Influenza was negative. Strep testing was negative. -IV at [facility]KO -Pain and nausea medication as needed -Empiric antibiotic coverage with ceftriaxone and doxycycline -Droplet isolation precautions and follow-up COVID19 testing ELEVATED LACTIC ACID-likely secondary to sepsis with pneumonia. Level initially improved but then did rise again this morning. -Encourage oral hydration -Reassess lactic acid level in the morning CHRONIC KIDNEY DISEASE STAGE III-previous history of nephrectomy. Kidney function stable. -Monitor urine output and renal function during hospital stay CHRONIC HYPOMAGNESEMIA-secondary to previous colectomy. Magnesium level at 1.3 this morning. -Supplement magnesium over the next 24 hours patient was initially admitted to observation status MAINTENANCE ISSUES -DVT prophylaxis; Lovenox 40 mg subcu daily -GI prophylaxis; Protonix as above -Law catheter; not indicated -Nutrition; regular diet ADMISSION STATUS-but with her development of fever and new diagnosis of pneumonia I suspect she had pneumonia with sepsis present at the time of admission and it flew under the radar until it became more apparent as the early part of the hospital stay progressed. She has been transitioned to inpatient status for management of a right lower lobe pneumonia with sepsis. DISPOSITION-anticipate discharge to home after the hospital stay. Rad Pedersen MD
[2019-07-15] MEDS: Enoxaparin 40 MG/0.4 ML Syringe SUBCUT SCH (16:03)
[2019-07-15] MEDS: Melatonin 3 MG Tab PO SCH (20:54)
[2019-07-16] MEDS: HYDROmorphone 0.5 MG/0.5 ML Syringe IVPUSH PRN ×11 (00:28→23:44)
[2019-07-16] MEDS: Magnesium Sulfate/Water 2 GM in Premix Bag 1 BAG IV SCH (03:09)
[2019-07-16] MEDS: Pantoprazole 40 MG Tab.CR PO SCH ×2 (07:07→15:32)
[2019-07-16] MEDS: cefTRIAXone 1 GM in Sodium Chloride 0.9% 50 ML IV SCH (08:44)
[2019-07-16] MEDS: DULoxetine 30 MG Cap PO SCH (08:46)
[2019-07-16] MEDS: Doxycycline 100 MG in Sodium Chloride 0.9% 100 ML IV SCH ×2 (09:33→22:55)
--- NOTE | 2019-07-16 12:12 | PCM.PN ---
- General Info Date of Service: 07/16/19 Subjective Update: There were no acute events overnight. She did have several blood cultures returned positive with gram-negative rods. She has a mild cough but no significant shortness of breath. She has not required supplemental oxygen. She does have a fair amount of left lower quadrant abdominal pain but this seems to be slowly getting better. White blood cell count and platelets are both lower today. Hemoglobin is slightly lower. No evidence externally of bleeding with no blood in the ostomy bag and no hematemesis. She feels tired but otherwise a little better today. - Review of Systems General: Denies: Fever Gastrointestinal: Reports: Abdominal Pain - Patient Data Vitals - Most Recent: Last Vital Signs Temp 36.0 C L 07/16/19 10:43 Pulse 86 07/16/19 10:43 Resp 18 07/16/19 10:43 BP 123/64 07/16/19 10:43 Pulse Ox 96 07/16/19 10:43 Weight - Most Recent: 80.7 kg I&O - Last 24 Hours: Intake & Output 07/15/19 07/16/19 07/16/19 22:59 06:59 14:59 Intake Total 197 743 100 Output Total 1160 470 100 Balance -963 273 0 Lab Results Last 24 Hours: Laboratory Results - last 24 hr 07/16/19 07/16/19 07/16/19 Range/Units 04:15 04:15 04:15 WBC 2.9 L (4.5-11.0) K/uL RBC 2.67 L (3.30-5.50) M/uL Hgb 7.8 L (12.0-15.0) g/dL Hct 25.6 L (36.0-48.0) % MCV 96 (80-98) fL MCH 29 (27-31) pg MCHC 31 L (32-36) % Plt Count 77 L (150-400) K/uL Sodium 139 L (140-148) mmol/L Potassium 3.7 (3.6-5.2) mmol/L Chloride 105 (100-108) mmol/L Carbon Dioxide 25 (21-32) mmol/L Anion Gap 12.7 (5.0-14.0) mmol/L BUN 11 (7-18) mg/dL Creatinine 1.0 (0.6-1.0) mg/dL Est Cr Clr Drug Dosing 59.61 mL/min Estimated GFR (MDRD) 57 L (>60) Glucose 126 H (74-106) mg/dL Lactic Acid 1.2 (0.4-2.0) mmol/L Calcium 7.9 L (8.5-10.1) mg/dL Total Bilirubin 0.3 (0.2-1.0) mg/dL AST 13 L (15-37) U/L ALT 21 (12-78) U/L Alkaline Phosphatase 105 (46-116) U/L Total Protein 5.8 L (6.4-8.2) g/dL Albumin 2.5 L (3.4-5.0) g/dL Globulin 3.3 (2.3-3.5) g/dL Albumin/Globulin Ratio 0.8 L (1.2-2.2) Eliud Results Last 24 Hours: Microbiology 07/15/19 08:55 Aerobic Blood Culture - Preliminary Blood - Arm, Right Anaerobic Blood Culture - Preliminary 07/15/19 08:40 Aerobic Blood Culture - Preliminary Blood - Port-A-Cath Anaerobic Blood Culture - Preliminary 07/15/19 10:24 Quick Strep Confirmation Culture - Preliminary Throat NO GROUP A STREP ISOLATED REFERENCE RANGE: NEGATIVE Group A Streptococcus Rapid Screen - Final NEGATIVE STREP A SCREEN REFERENCE RANGE: NEGATIVE 07/15/19 10:24 Influenza Type A Antigen Screen - Final Nasal Aspirate, Unspecified NEGATIVE INFLUENZA A VIRUS AG REFERENCE RANGE: NEGATIVE Influenza Type B Antigen Screen - Final NEGATIVE INFLUENZA B VIRUS AG REFERENCE RANGE: NEGATIVE Med Orders - Current: Current Medications Acetaminophen (Tylenol) 650 mg PO Q4H PRN PRN Reason: Pain (Mild 1-3)/fever Last Admin: 07/15/19 22:29 Dose: 650 mg Benzocaine/Menthol (Cepacol Sore Throat) 1 lozenge MUCMEM Q2H PRN PRN Reason: Sore Throat Last Admin: 07/15/19 22:29 Dose: 1 polina Duloxetine HCl (Cymbalta) 60 mg PO DAILY [facility] Last Admin: 07/16/19 08:46 Dose: 60 mg Enoxaparin Sodium (Lovenox) 40 mg SUBCUT Q24H [facility] Last Admin: 07/15/19 16:03 Dose: 40 mg Hydromorphone HCl (Dilaudid) 0.5 mg IVPUSH Q2H PRN PRN Reason: Pain Last Admin: 07/16/19 09:33 Dose: 0.5 mg Ceftriaxone Sodium 1 gm/ (Sodium Chloride) 50 mls @ 100 mls/hr IV Q24H [facility] Last Admin: 07/16/19 08:44 Dose: 100 mls/hr Doxycycline Hyclate 100 mg/ (Sodium Chloride) 100 mls @ 100 mls/hr IV Q12H [facility] Last Admin: 07/16/19 09:33 Dose: 100 mls/hr Sodium Chloride (Normal Saline) 1,000 mls @ 25 mls/hr IV ASDIRECTED [facility] Last Admin: 07/15/19 10:40 Dose: 25 mls/hr Imipramine HCl (Imipramine Hcl) 200 mg PO BEDTIME [facility] Last Admin: 07/15/19 20:50 Dose: 200 mg Melatonin (Melatonin) 3 mg PO BEDTIME [facility] Last Admin: 07/15/19 20:54 Dose: 3 mg Olanzapine (Zyprexa) 5 mg PO Q12H PRN PRN Reason: Other Ondansetron HCl (Zofran Odt) 4 mg PO Q4H PRN PRN Reason: Other Pantoprazole Sodium (Protonix) 40 mg PO BIDAC [facility] Last Admin: 07/16/19 07:07 Dose: 40 mg Sodium Chloride (Saline Flush) 10 ml FLUSH ASDIRECTED PRN PRN Reason: Keep Vein Open Tizanidine HCl (Zanaflex) 4 mg PO BID PRN PRN Reason: Other Discontinued Medications Diphenhydramine HCl (Benadryl) 25 mg IVPUSH ONETIME ONE Stop: 07/14/19 10:18 Last Admin: 07/14/19 10:55 Dose: 25 mg Hydromorphone HCl (Dilaudid) 0.5 mg IVPUSH ONETIME ONE Stop: 07/14/19 10:17 Last Admin: 07/14/19 10:53 Dose: 0.5 mg Hydromorphone HCl (Dilaudid) 1 mg IVPUSH ONETIME ONE Stop: 07/14/19 11:25 Last Admin: 07/14/19 11:31 Dose: 1 mg Hydromorphone HCl (Dilaudid) 0.5 mg IVPUSH ONETIME ONE Stop: 07/14/19 12:27 Last Admin: 07/14/19 12:32 Dose: 0.5 mg Lactated Ringer's (Ringers, Lactated) 1,000 mls @ 999 mls/hr IV ASDIRECTED [facility] Last Admin: 07/14/19 10:50 Dose: 999 mls/hr Magnesium Sulfate 2 gm/ Premix 50 mls @ 12.5 mls/hr IV ONETIME ONE Stop: 07/14/19 15:21 Last Admin: 07/14/19 11:33 Dose: 12.5 mls/hr Lactated Ringer's (Ringers, Lactated) 1,000 mls @ 999 mls/hr IV BOLUS ONE Stop: 07/14/19 12:31 Last Admin: 07/14/19 11:34 Dose: 999 mls/hr Lactated Ringer's (Ringers, Lactated) 1,000 mls @ 125 mls/hr IV ASDIRECTED [facility] Last Admin: 07/15/19 07:19 Dose: 125 mls/hr Sodium Chloride (Normal Saline) 1,000 mls @ 999 mls/hr IV ASDIRECTED ONE Stop: 07/15/19 10:00 Last Admin: 07/15/19 09:19 Dose: 999 mls/hr Magnesium Sulfate 2 gm/ Premix 50 mls @ 25 mls/hr IV Q6H [facility] Stop: 07/16/19 05:59 Last Admin: 07/16/19 03:09 Dose: 25 mls/hr Ketamine HCl (Ketalar) 15 mg IV ONETIME ONE Stop: 07/14/19 12:28 Last Admin: 07/14/19 12:35 Dose: 15 mg Magnesium Oxide (Magnesium Oxide) 400 mg PO TID [facility] Last Admin: 07/15/19 09:13 Dose: 400 mg Ondansetron HCl (Zofran) 4 mg IVPUSH ONETIME ONE Stop: 07/14/19 10:17 Last Admin: 07/14/19 10:55 Dose: 4 mg Sodium Chloride (Saline Flush) 10 ml FLUSH ASDIRECTED PRN PRN Reason: Keep Vein Open Last Admin: 07/14/19 10:51 Dose: 10 ml - Exam Quality Assessment: No: Supplemental Oxygen General: Alert, Oriented, Cooperative, No Acute Distress Lungs: Normal Respiratory Effort, Crackles (rare right lung base) Cardiovascular: Regular Rate, Regular Rhythm GI/Abdominal Exam: Normal Bowel Sounds, Soft, No Distention, Tender (LLQ) Extremities: No Pedal Edema Psy/Mental Status: Alert, Normal Affect Sepsis Event Note - Evaluation Sepsis Screening Result: No Definite Risk - Focused Exam Vital Signs: Vital Signs Temp Pulse Resp BP BP Pulse Ox 07/16/19 10:43 36.0 C L 86 18 123/64 96 07/16/19 07:00 35.3 C L 76 18 125/66 96 07/16/19 03:00 36.0 C L 79 18 109/59 L 98 Date Exam was Performed: 07/16/19 Time Exam was Performed: 13:45 - Problem List Review Problem List Initiated/Reviewed/Updated: Yes - My Orders Last 24 Hours: My Active Orders 07/16/19 14:00 cefTAZidime Pentahydrate [Fortaz] 1 gm Sodium Chloride 0.9% [Normal Saline] 50 ml IV Q8HR 07/17/19 05:00 BASIC METABOLIC PANEL,BMP [CHEM] Timed CBC W/O DIFF,HEMOGRAM [HEME] Timed (1) CULTURE BLOOD [BC] Routine - Plan Plan:: ASSESSMENT AND PLAN RIGHT LOWER LOBE PNEUMONIA-CT scan unremarkable abdominal etiology but did show an opacity in the right lower lobe. Chest x-ray does not show impressive infiltrate. She is not on supplemental oxygen but does have a cough. -IV at TKO -Pain and nausea medication as needed -Empiric antibiotic coverage with ceftazidime and doxycycline -Droplet isolation precautions and follow-up COVID19 testing GRAM-NEGATIVE BACTEREMIA WITH SEPSIS-multiple blood cultures now positive with gram-negative rods. Unclear if this is related to the pneumonia which is not very impressive or possibly an intra-abdominal source that was not identified on CT scan. I suspect her pancytopenia is related to the gram-negative sepsis. Lactic acid level is now normal. -Change antibiotic coverage to include ceftazidime for Pseudomonas coverage -follow-up cultures -Repeat blood culture tomorrow morning to ensure clearing POSSIBLE COVID19 INFECTION-low likelihood but she does have potential exposures. Laboratory studies possibly suggestive of this type of infection. Influenza and strep testing were negative. -Follow-up COVID19 testing -Continue precautions CHRONIC KIDNEY DISEASE STAGE III-previous history of nephrectomy. Kidney function stable. -Monitor urine output and renal function during hospital stay CHRONIC HYPOMAGNESEMIA-secondary to previous colectomy. Magnesium was supplemented yesterday. -Magnesium level in the morning MAINTENANCE ISSUES -DVT prophylaxis; mechanical with thrombocytopenia -GI prophylaxis; PPI -Law catheter; not indicated -Nutrition; regular diet DISPOSITION-anticipate discharge to home after the hospital stay. Rad Pedersen MD
[2019-07-16] MEDS: Melatonin 3 MG Tab PO SCH (22:23)
[2019-07-16] MEDS: traMADol 50 MG Tab PO SCH (22:51)
[2019-07-16] MEDS: tiZANidine 4 MG Tab PO PRN (22:51)
[2019-07-17] MEDS: HYDROmorphone 0.5 MG/0.5 ML Syringe IVPUSH PRN ×11 (01:51→22:52)
[2019-07-17] MEDS: traMADol 50 MG Tab PO SCH ×4 (04:33→22:51)
[2019-07-17] MEDS: Sodium Chloride 0.9% 1,000 ML IV SCH (06:08)
[2019-07-17] MEDS: Pantoprazole 40 MG Tab.CR PO SCH ×2 (07:58→16:21)
[2019-07-17] MEDS: DULoxetine 30 MG Cap PO SCH (08:00)
[2019-07-17] MEDS: Doxycycline 100 MG in Sodium Chloride 0.9% 100 ML IV SCH (10:19)
[2019-07-17] MEDS ORDERED: Magnesium Sulfate/Water 2 GM in Premix Bag 1 BAG IV ONE (12:00)
--- NOTE | 2019-07-17 14:01 | PCM.PN ---
- General Info Date of Service: 07/17/19 Subjective Update: There were no acute events overnight. She continues to have moderate left lower quadrant abdominal pain but this seems to be slowly getting better. No nausea. She has not had any fevers. She thinks that her stool output in the ostomy has nearly returned to normal. Blood cultures have returned positive for Klebsiella pneumoniae. White blood cell count, hemoglobin and platelets are low but stable. COVID19 testing is still pending. She has not required supplemental oxygen. - Review of Systems General: Denies: Fever Gastrointestinal: Reports: Abdominal Pain - Patient Data Vitals - Most Recent: Last Vital Signs Temp 36.0 C L 07/17/19 12:14 Pulse 92 07/17/19 12:14 Resp 20 07/17/19 12:14 BP 141/62 H 07/17/19 12:14 Pulse Ox 99 07/17/19 12:14 Weight - Most Recent: 80.7 kg I&O - Last 24 Hours: Intake & Output 07/16/19 07/17/19 07/17/19 22:59 06:59 14:59 Intake Total 342 824 500 Output Total 325 120 300 Balance 17 704 200 Lab Results Last 24 Hours: Laboratory Results - last 24 hr 07/15/19 07/17/19 07/17/19 Range/Units 09:30 04:10 04:10 WBC 2.3 L (4.5-11.0) K/uL RBC 2.67 L (3.30-5.50) M/uL Hgb 7.5 L (12.0-15.0) g/dL Hct 25.8 L (36.0-48.0) % MCV 97 (80-98) fL MCH 28 (27-31) pg MCHC 29 L (32-36) % Plt Count 95 L (150-400) K/uL Sodium 140 (140-148) mmol/L Potassium 4.1 (3.6-5.2) mmol/L Chloride 106 (100-108) mmol/L Carbon Dioxide 22 (21-32) mmol/L Anion Gap 12.2 (5.0-14.0) mmol/L BUN 13 (7-18) mg/dL Creatinine 1.0 (0.6-1.0) mg/dL Est Cr Clr Drug Dosing 59.61 mL/min Estimated GFR (MDRD) 57 L (>60) Glucose 115 H (74-106) mg/dL Calcium 7.8 L (8.5-10.1) mg/dL Magnesium (1.8-2.4) mg/dL Miscellaneous Test Comment (.) 07/17/19 Range/Units 09:39 WBC (4.5-11.0) K/uL RBC (3.30-5.50) M/uL Hgb (12.0-15.0) g/dL Hct (36.0-48.0) % MCV (80-98) fL MCH (27-31) pg MCHC (32-36) % Plt Count (150-400) K/uL Sodium (140-148) mmol/L Potassium (3.6-5.2) mmol/L Chloride (100-108) mmol/L Carbon Dioxide (21-32) mmol/L Anion Gap (5.0-14.0) mmol/L BUN (7-18) mg/dL Creatinine (0.6-1.0) mg/dL Est Cr Clr Drug Dosing mL/min Estimated GFR (MDRD) (>60) Glucose (74-106) mg/dL Calcium (8.5-10.1) mg/dL Magnesium 1.8 (1.8-2.4) mg/dL Miscellaneous Test (.) Eliud Results Last 24 Hours: Microbiology 07/15/19 10:24 Quick Strep Confirmation Culture - Final Throat NO GROUP A STREP ISOLATED REFERENCE RANGE: NEGATIVE Group A Streptococcus Rapid Screen - Final NEGATIVE STREP A SCREEN REFERENCE RANGE: NEGATIVE 07/15/19 08:55 Aerobic Blood Culture - Final Blood - Arm, Right Klebsiella Pneumonia Ss Pneumo Anaerobic Blood Culture - Final Klebsiella Pneumonia Ss Pneumo 07/15/19 08:40 Aerobic Blood Culture - Final Blood - Port-A-Cath Klebsiella Pneumonia Ss Pneumo Anaerobic Blood Culture - Final Klebsiella Pneumonia Ss Pneumo Med Orders - Current: Current Medications Acetaminophen (Tylenol) 650 mg PO Q4H PRN PRN Reason: Pain (Mild 1-3)/fever Last Admin: 07/15/19 22:29 Dose: 650 mg Benzocaine/Menthol (Cepacol Sore Throat) 1 lozenge MUCMEM Q2H PRN PRN Reason: Sore Throat Last Admin: 07/15/19 22:29 Dose: 1 polina Cefdinir (Omnicef) 300 mg PO BID [facility] Duloxetine HCl (Cymbalta) 60 mg PO DAILY [facility] Last Admin: 07/17/19 08:00 Dose: 60 mg Hydromorphone HCl (Dilaudid) 0.5 mg IVPUSH Q2H PRN PRN Reason: Pain Last Admin: 07/17/19 12:18 Dose: 0.5 mg Sodium Chloride (Normal Saline) 1,000 mls @ 25 mls/hr IV ASDIRECTED [facility] Last Admin: 07/17/19 06:08 Dose: 25 mls/hr Ceftazidime 1 gm/ Sodium (Chloride) 50 mls @ 100 mls/hr IV Q8HR [facility] Stop: 07/17/19 16:00 Last Admin: 07/17/19 06:03 Dose: 100 mls/hr Magnesium Sulfate 2 gm/ Premix 50 mls @ 12.5 mls/hr IV ONETIME ONE Stop: 07/17/19 15:59 Last Admin: 07/17/19 12:12 Dose: 12.5 mls/hr Imipramine HCl (Imipramine Hcl) 200 mg PO BEDTIME [facility] Last Admin: 07/16/19 22:23 Dose: 200 mg Melatonin (Melatonin) 3 mg PO BEDTIME [facility] Last Admin: 07/16/19 22:23 Dose: 3 mg Olanzapine (Zyprexa) 5 mg PO Q12H PRN PRN Reason: Other Ondansetron HCl (Zofran Odt) 4 mg PO Q4H PRN PRN Reason: Other Pantoprazole Sodium (Protonix) 40 mg PO BIDAC [facility] Last Admin: 07/17/19 07:58 Dose: 40 mg Sodium Chloride (Saline Flush) 10 ml FLUSH ASDIRECTED PRN PRN Reason: Keep Vein Open Tizanidine HCl (Zanaflex) 4 mg PO BID PRN PRN Reason: Other Last Admin: 07/16/19 22:51 Dose: 4 mg Tramadol HCl (Ultram) 100 mg PO Q6H [facility] Last Admin: 07/17/19 10:18 Dose: 100 mg Discontinued Medications Diphenhydramine HCl (Benadryl) 25 mg IVPUSH ONETIME ONE Stop: 07/14/19 10:18 Last Admin: 07/14/19 10:55 Dose: 25 mg Enoxaparin Sodium (Lovenox) 40 mg SUBCUT Q24H [facility] Last Admin: 07/15/19 16:03 Dose: 40 mg Hydromorphone HCl (Dilaudid) 0.5 mg IVPUSH ONETIME ONE Stop: 07/14/19 10:17 Last Admin: 07/14/19 10:53 Dose: 0.5 mg Hydromorphone HCl (Dilaudid) 1 mg IVPUSH ONETIME ONE Stop: 07/14/19 11:25 Last Admin: 07/14/19 11:31 Dose: 1 mg Hydromorphone HCl (Dilaudid) 0.5 mg IVPUSH ONETIME ONE Stop: 07/14/19 12:27 Last Admin: 07/14/19 12:32 Dose: 0.5 mg Lactated Ringer's (Ringers, Lactated) 1,000 mls @ [facility] Admin: 07/14/19 10:50 Dose: 999 mls/hr Magnesium Sulfate 2 gm/ Premix 50 mls @ 12.5 mls/hr IV ONETIME ONE Stop: 07/14/19 15:21 Last Admin: 07/14/19 11:33 Dose: 12.5 mls/hr Lactated Ringer's (Ringers, Lactated) 1,000 mls @ 999 mls/hr IV BOLUS ONE Stop: 07/14/19 12:31 Last Admin: 07/14/19 11:34 Dose: 999 mls/hr Lactated Ringer's (Ringers, Lactated) 1,000 mls @ 125 mls/hr IV ASDIRECTED [facility] Last Admin: 07/15/19 07:19 Dose: 125 mls/hr Ceftriaxone Sodium 1 gm/ (Sodium Chloride) 50 mls @ 100 mls/hr IV Q24H [facility] Last Admin: 07/16/19 08:44 Dose: 100 mls/hr Doxycycline Hyclate 100 mg/ (Sodium Chloride) 100 mls @ 100 mls/hr IV Q12H [facility] Last Admin: 07/17/19 10:19 Dose: 100 mls/hr Sodium Chloride (Normal Saline) 1,000 mls @ 999 mls/hr IV ASDIRECTED ONE Stop: 07/15/19 10:00 Last Admin: 07/15/19 09:19 Dose: 999 mls/hr Magnesium Sulfate 2 gm/ Premix 50 mls @ 25 mls/hr IV Q6H [facility] Stop: 07/16/19 05:59 Last Admin: 07/16/19 03:09 Dose: 25 mls/hr Ketamine HCl (Ketalar) 15 mg IV ONETIME ONE Stop: 07/14/19 12:28 Last Admin: 07/14/19 12:35 Dose: 15 mg Magnesium Oxide (Magnesium Oxide) 400 mg PO TID [facility] Last Admin: 07/15/19 09:13 Dose: 400 mg Ondansetron HCl (Zofran) 4 mg IVPUSH ONETIME ONE Stop: 07/14/19 10:17 Last Admin: 07/14/19 10:55 Dose: 4 mg Sodium Chloride (Saline Flush) 10 ml FLUSH ASDIRECTED PRN PRN Reason: Keep Vein Open Last Admin: 07/14/19 10:51 Dose: 10 ml - Exam Quality Assessment: No: Supplemental Oxygen General: Alert, Oriented, Cooperative, No Acute Distress Lungs: Normal Respiratory Effort Cardiovascular: Regular Rate, Regular Rhythm GI/Abdominal Exam: Soft, No Distention, Tender (Left lower quadrant) Extremities: No Pedal Edema Psy/Mental Status: Alert, Normal Affect Sepsis Event Note - Evaluation Sepsis Screening Result: Severe Sepsis Risk - Focused Exam Vital Signs: Vital Signs Temp Pulse Resp BP Pulse Ox 07/17/19 12:14 36.0 C L 92 20 141/62 H 99 07/17/19 07:54 35.8 C L 88 14 152/77 H 98 07/17/19 05:59 35.3 C L 81 18 140/64 99 Date Exam was Performed: 07/17/19 Time Exam was Performed: 13:58 - Problem List Review Problem List Initiated/Reviewed/Updated: Yes - My Orders Last 24 Hours: My Active Orders 07/16/19 14:00 cefTAZidime Pentahydrate [Fortaz] 1 gm Sodium Chloride 0.9% [Normal Saline] 50 ml IV Q8HR 07/16/19 15:19 Sequential Compression Device [OM.PC] Routine 07/17/19 04:25 CULTURE BLOOD [BC] Routine 07/17/19 12:00 Magnesium Sulfate/Water [Magnesium Sulfate in Water Premix] 2 gm Premix Bag 1 bag IV ONETIME 07/17/19 21:00 Cefdinir [Omnicef] 300 mg PO BID 07/18/19 05:00 BASIC METABOLIC PANEL,BMP [CHEM] Timed CBC WITH AUTO DIFF [HEME] Timed - Plan Plan:: ASSESSMENT AND PLAN RIGHT LOWER LOBE PNEUMONIA-CT scan unremarkable abdominal etiology but did show an opacity in the right lower lobe. Chest x-ray does not show impressive infiltrate. She is not on supplemental oxygen but does have a cough. -IV at TKO -Pain and nausea medication as needed -Empiric antibiotic coverage with ceftazidime and doxycycline -Droplet isolation precautions and follow-up COVID19 testing GRAM-NEGATIVE BACTEREMIA WITH SEPSIS-multiple blood cultures now positive with Klebsiella pneumoniae. Her pneumonia was not very impressive and I think this is unlikely to be the source. Potential intra-abdominal source but CT scan did not definitively identify abscess or other intra-abdominal infection. Clinically she is improving. -Change antibiotic coverage to cefdinir -follow-up cultures including repeat blood culture -Pain control PANCYTOPENIA-likely related to gram-negative sepsis. Levels are stable or starting to improve. -Repeat labs in the morning -Transfuse only if hemoglobin less than 7 POSSIBLE COVID19 INFECTION-low likelihood but she does have potential exposures. Laboratory studies possibly suggestive of this type of infection. Influenza and strep testing were negative. -Follow-up COVID19 testing -Continue precautions CHRONIC KIDNEY DISEASE STAGE III-previous history of nephrectomy. Kidney function stable. -Monitor urine output and renal function during hospital stay CHRONIC HYPOMAGNESEMIA-secondary to previous colectomy. Magnesium will be supplemented again today. MAINTENANCE ISSUES -DVT prophylaxis; mechanical with thrombocytopenia -GI prophylaxis; PPI -Law catheter; not indicated -Nutrition; regular diet DISPOSITION-anticipate discharge to home after the hospital stay. Rad Pedersen MD
[2019-07-17] MEDS: Cefdinir 300 MG Cap PO SCH (20:35)
[2019-07-17] MEDS: Melatonin 3 MG Tab PO SCH (20:35)
[2019-07-17] MEDS: tiZANidine 4 MG Tab PO PRN (20:52)
[2019-07-18] MEDS: HYDROmorphone 0.5 MG/0.5 ML Syringe IVPUSH PRN ×2 (00:55→02:55)
[2019-07-18] MEDS: traMADol 50 MG Tab PO SCH ×4 (05:29→22:14)
[2019-07-18] MEDS: Acetaminophen/oxyCODONE 325-5 MG Tab PO PRN ×4 (05:30→22:15)
[2019-07-18] MEDS: Pantoprazole 40 MG Tab.CR PO SCH ×2 (08:41→16:25)
[2019-07-18] MEDS: DULoxetine 30 MG Cap PO SCH (08:41)
[2019-07-18] MEDS: Cefdinir 300 MG Cap PO SCH ×2 (08:41→22:14)
--- NOTE | 2019-07-18 10:54 | PCM.PN ---
- General Info Date of Service: 07/18/19 Subjective Update: No acute events overnight. Vital signs have been stable. Labs are stable. No new positive culture results. She continues to report moderately severe left lower quadrant abdominal pain. She has been using IV pain medications regularly. She did ask for additional oral pain medications yesterday as well. She reports some nausea and her appetite is not great. She has not had any fevers. No cough or shortness of breath. Functional Status: Reports: Tolerating Diet. Denies: Pain Controlled - Review of Systems General: Denies: Fever Pulmonary: Denies: Shortness of Breath Gastrointestinal: Denies: Abdominal Pain - Patient Data Vitals - Most Recent: Last Vital Signs Temp 35.4 C L 07/18/19 08:46 Pulse 79 07/18/19 08:46 Resp 20 07/18/19 08:46 BP 159/79 H 07/18/19 08:46 Pulse Ox 98 07/18/19 08:46 Weight - Most Recent: 80.7 kg I&O - Last 24 Hours: Intake & Output 07/17/19 07/18/19 07/18/19 22:59 06:59 14:59 Intake Total 785 573 Output Total 180 650 Balance 605 573 -650 Lab Results Last 24 Hours: Laboratory Results - last 24 hr 07/18/19 07/18/19 Range/Units 05:50 05:50 WBC 1.9 L (4.5-11.0) K/uL RBC 2.82 L (3.30-5.50) M/uL Hgb 8.0 L (12.0-15.0) g/dL Hct 27.2 L (36.0-48.0) % MCV 97 (80-98) fL MCH 28 (27-31) pg MCHC 29 L (32-36) % Plt Count 111 L (150-400) K/uL Neut % (Auto) 55 (36-66) % Lymph % (Auto) 37 (24-44) % [place] % (Auto) 8 H (2-6) % Eos % (Auto) 0 L (2-4) % Baso % (Auto) 0 (0-1) % Sodium 137 L (140-148) mmol/L Potassium 4.4 (3.6-5.2) mmol/L Chloride 106 (100-108) mmol/L Carbon Dioxide 25 (21-32) mmol/L Anion Gap 10.4 (5.0-14.0) mmol/L BUN 13 (7-18) mg/dL Creatinine 1.0 (0.6-1.0) mg/dL Est Cr Clr Drug Dosing 59.61 mL/min Estimated GFR (MDRD) 57 L (>60) Glucose 101 (74-106) mg/dL Calcium 8.3 L (8.5-10.1) mg/dL Eliud Results Last 24 Hours: Microbiology 07/17/19 04:25 Aerobic Blood Culture - Preliminary Blood - Port-A-Cath NO GROWTH AFTER 1 DAY Anaerobic Blood Culture - Preliminary NO GROWTH AFTER 1 DAY 07/15/19 10:24 Quick Strep Confirmation Culture - Final Throat NO GROUP A STREP ISOLATED REFERENCE RANGE: NEGATIVE Group A Streptococcus Rapid Screen - Final NEGATIVE STREP A SCREEN REFERENCE RANGE: NEGATIVE 07/15/19 08:55 Aerobic Blood Culture - Final Blood - Arm, Right Klebsiella Pneumonia Ss Pneumo Anaerobic Blood Culture - Final Klebsiella Pneumonia Ss Pneumo 07/15/19 08:40 Aerobic Blood Culture - Final Blood - Port-A-Cath Klebsiella Pneumonia Ss Pneumo Anaerobic Blood Culture - Final Klebsiella Pneumonia Ss Pneumo Med Orders - Current: Current Medications Acetaminophen (Tylenol) 650 mg PO Q4H PRN PRN Reason: Pain (Mild 1-3)/fever Last Admin: 07/15/19 22:29 Dose: 650 mg Benzocaine/Menthol (Cepacol Sore Throat) 1 lozenge MUCMEM Q2H PRN PRN Reason: Sore Throat Last Admin: 07/15/19 22:29 Dose: 1 polina Cefdinir (Omnicef) 300 mg PO BID [facility] Last Admin: 07/18/19 08:41 Dose: 300 mg Duloxetine HCl (Cymbalta) 60 mg PO DAILY [facility] Last Admin: 07/18/19 08:41 Dose: 60 mg Sodium Chloride (Normal Saline) 1,000 mls @ 25 mls/hr IV ASDIRECTED [facility] Last Admin: 07/17/19 06:08 Dose: 25 mls/hr Imipramine HCl (Imipramine Hcl) 200 mg PO BEDTIME [facility] Last Admin: 07/17/19 20:35 Dose: 200 mg Melatonin (Melatonin) 3 mg PO BEDTIME [facility] Last Admin: 07/17/19 20:35 Dose: 3 mg Olanzapine (Zyprexa) 5 mg PO Q12H PRN PRN Reason: Other Ondansetron HCl (Zofran Odt) 4 mg PO Q4H PRN PRN Reason: Other Oxycodone/Acetaminophen (Percocet 325-5 Mg) 1 - 2 tab PO Q4H PRN PRN Reason: Pain Last Admin: 07/18/19 10:29 Dose: 2 tab Pantoprazole Sodium (Protonix) 40 mg PO BIDAC [facility] Last Admin: 07/18/19 08:41 Dose: 40 mg Sodium Chloride (Saline Flush) 10 ml FLUSH ASDIRECTED PRN PRN Reason: Keep Vein Open Tizanidine HCl (Zanaflex) 4 mg PO BID PRN PRN Reason: Other Last Admin: 07/17/19 20:52 Dose: 4 mg Tramadol HCl (Ultram) 100 mg PO Q6H [facility] Last Admin: 07/18/19 10:29 Dose: 100 mg Discontinued Medications Diphenhydramine HCl (Benadryl) 25 mg IVPUSH ONETIME ONE Stop: 07/14/19 10:18 Last Admin: 07/14/19 10:55 Dose: 25 mg Enoxaparin Sodium (Lovenox) 40 mg SUBCUT Q24H [facility] Last Admin: 07/15/19 16:03 Dose: 40 mg Hydromorphone HCl (Dilaudid) 0.5 mg IVPUSH ONETIME ONE Stop: 07/14/19 10:17 Last Admin: 07/14/19 10:53 Dose: 0.5 mg Hydromorphone HCl (Dilaudid) 1 mg IVPUSH ONETIME ONE Stop: 07/14/19 11:25 Last Admin: 07/14/19 11:31 Dose: 1 mg Hydromorphone HCl (Dilaudid) 0.5 mg IVPUSH ONETIME ONE Stop: 07/14/19 12:27 Last Admin: 07/14/19 12:32 Dose: 0.5 mg Hydromorphone HCl (Dilaudid) 0.5 mg IVPUSH Q2H PRN PRN Reason: Pain Last Admin: 07/18/19 02:55 Dose: 0.5 mg Lactated Ringer's (Ringers, Lactated) 1,000 mls @ 999 mls/hr IV ASDIRECTED [facility] Last Admin: 07/14/19 10:50 Dose: 999 mls/hr Magnesium Sulfate 2 gm/ Premix 50 mls @ 12.5 mls/hr IV ONETIME ONE Stop: 07/14/19 15:21 Last Admin: 07/14/19 11:33 Dose: 12.5 mls/hr Lactated Ringer's (Ringers, Lactated) 1,000 mls @ 999 mls/hr IV BOLUS ONE Stop: 07/14/19 12:31 Last Admin: 07/14/19 11:34 Dose: 999 mls/hr Lactated Ringer's (Ringers, Lactated) 1,000 mls @ 125 mls/hr IV ASDIRECTED [facility] Last Admin: 07/15/19 07:19 Dose: 125 mls/hr Ceftriaxone Sodium 1 gm/ (Sodium Chloride) 50 mls @ 100 mls/hr IV Q24H [facility] Last Admin: 07/16/19 08:44 Dose: 100 mls/hr Doxycycline Hyclate 100 mg/ (Sodium Chloride) 100 mls @ 100 mls/hr IV Q12H [facility] Last Admin: 07/17/19 10:19 Dose: 100 mls/hr Sodium Chloride (Normal Saline) 1,000 mls @ 999 mls/hr IV ASDIRECTED ONE Stop: 07/15/19 10:00 Last Admin: 07/15/19 09:19 Dose: 999 mls/hr Magnesium Sulfate 2 gm/ Premix 50 mls @ 25 mls/hr IV Q6H [facility] Stop: 07/16/19 05:59 Last Admin: 07/16/19 03:09 Dose: 25 mls/hr Ceftazidime 1 gm/ Sodium (Chloride) 50 mls @ 100 mls/hr IV Q8HR [facility] Stop: 07/17/19 16:00 Last Admin: 07/17/19 14:24 Dose: 100 mls/hr Magnesium Sulfate 2 gm/ Premix 50 mls @ 12.5 mls/hr IV ONETIME ONE Stop: 07/17/19 15:59 Last Admin: 07/17/19 12:12 Dose: 12.5 mls/hr Ketamine HCl (Ketalar) 15 mg IV ONETIME ONE Stop: 07/14/19 12:28 Last Admin: 07/14/19 12:35 Dose: 15 mg Magnesium Oxide (Magnesium Oxide) 400 mg PO TID [facility] Last Admin: 07/15/19 09:13 Dose: 400 mg Ondansetron HCl (Zofran) 4 mg IVPUSH ONETIME ONE Stop: 07/14/19 10:17 Last Admin: 07/14/19 10:55 Dose: 4 mg Sodium Chloride (Saline Flush) 10 ml FLUSH ASDIRECTED PRN PRN Reason: Keep Vein Open Last Admin: 07/14/19 10:51 Dose: 10 ml - Exam Quality Assessment: No: Supplemental Oxygen General: Alert, Oriented, Cooperative, No Acute Distress Lungs: Normal Respiratory Effort Cardiovascular: Regular Rate, Regular Rhythm GI/Abdominal Exam: Soft, No Distention, Guarding (LLQ), Tender (severe LLQ) Extremities: No Pedal Edema Skin: Warm, Dry Psy/Mental Status: Alert, Anxious Sepsis Event Note - Evaluation Sepsis Screening Result: Sepsis Risk - Focused Exam Vital Signs: Vital Signs Temp Pulse Resp BP Pulse Ox 07/18/19 08:46 35.4 C L 79 20 159/79 H 98 07/18/19 05:28 35.4 C L 78 18 150/74 H 98 07/18/19 00:53 35 C L 72 18 137/65 99 Date Exam was Performed: 07/18/19 Time Exam was Performed: 12:42 - Problem List Review Problem List Initiated/Reviewed/Updated: Yes - My Orders Last 24 Hours: My Active Orders 07/17/19 21:00 Cefdinir [Omnicef] 300 mg PO BID 07/18/19 10:50 Abdomen Pelvis w Cont [CT] Routine 07/19/19 05:00 BASIC METABOLIC PANEL,BMP [CHEM] Timed CBC W/O DIFF,HEMOGRAM [HEME] Timed (1) - Plan Plan:: ASSESSMENT AND PLAN LEFT LOWER QUADRANT ABDOMINAL PAIN-this has persisted throughout the hospital stay and has not improved much. Initial CT did not show any significant abnormalities in the abdomen. With ongoing pain in the positive blood cultures I am going to repeat the CT scan to see if there was something developing that did not show up on the first scan which did not have IV contrast. She has had multiple abdominal surgeries in the past. No vomiting or diarrhea. -Symptom management with pain and nausea control -CT scan of the abdomen and pelvis with IV contrast RIGHT LOWER LOBE PNEUMONIA-initial CT scan unremarkable abdominal etiology but did show an opacity in the right lower lobe. Chest x-ray does not show impressive infiltrate. She is not on supplemental oxygen but does have a cough. -IV at [facility] -Droplet isolation precautions and follow-up COVID19 testing which is still pending GRAM-NEGATIVE BACTEREMIA WITH SEPSIS-multiple blood cultures now positive with Klebsiella pneumoniae. Her pneumonia was not very impressive and I think this is unlikely to be the source. Potential intra-abdominal source but CT scan did not definitively identify abscess or other intra-abdominal infection. Clinically she is improving. -Continue cefdinir -follow-up cultures including repeat blood culture -Pain control PANCYTOPENIA-likely related to gram-negative sepsis. Levels are stable or starting to improve. -Repeat labs in the morning -Transfuse only if hemoglobin less than 7 POSSIBLE COVID19 INFECTION-low likelihood but she does have potential exposures. Laboratory studies possibly suggestive of this type of infection. Influenza and strep testing were negative. -Follow-up COVID19 testing -Continue precautions CHRONIC KIDNEY DISEASE STAGE III-previous history of nephrectomy. Kidney function stable. -Monitor urine output and renal function during hospital stay CHRONIC HYPOMAGNESEMIA-secondary to previous colectomy. MAINTENANCE ISSUES -DVT prophylaxis; mechanical with thrombocytopenia -GI prophylaxis; PPI -Law catheter; not indicated -Nutrition; regular diet DISPOSITION-anticipate discharge to home after the hospital stay. Rad Pedersen MD
[2019-07-18] MEDS ORDERED: Sodium Chloride 0.9% 10 ML Syringe FLUSH PRN (11:04)
[2019-07-18] MEDS ORDERED: Iopamidol 612 MG/ML 100 ML Bottle IV PRN (11:04)
--- NOTE | 2019-07-18 13:19 | CT ---
Abdomen Pelvis w Cont CLINICAL HISTORY: Severe left lower quadrant pain COMPARISON: 07/14/2019. TECHNIQUE: Axial tomographic images are obtained from the dome of the diaphragm to the pubic symphysis without IV contrast enhancement. No oral contrast was used. Auto dosage reduction and iterative reconstruction techniques employed. FINDINGS: The lung bases show persistent the nodular density in the right posterior costophrenic angle. There is a slight increase in density since prior study. This may represent some atelectasis and/or infiltrate.. The liver is enlarged. It shows no mass or biliary dilatation. The gallbladder has a normal appearance. There is a small hiatal hernia. The spleen is significantly enlarged measuring 18.4 x 12.5 x 7.2 cm. It has a uniform density throughout. The splenic and mesenteric veins are prominent The pancreas shows no mass or inflammatory change. The adrenal glands appear normal bilaterally. There has been left nephrectomy. Right kidney has a normal appearance The aorta has a normal contour. There is no suspicious retroperitoneal adenopathy. Patient has a left lower quadrant colostomy site there has been previous low AP resection of the rectum. There is no evidence recurrent mass or abnormal fluid collection. IMPRESSION: Moderate hepatomegaly with severe splenomegaly. This is similar to prior study Previous low AP resection of the rectum with a left lower quadrant colostomy which appears patent and without inflammatory change No abdominal pelvic mass or adenopathy. Persistent irregular nodular density in the right posterior costophrenic angle. Short-term follow-up CT chest recommended in 2-3 months
[2019-07-18] MEDS: HYDROmorphone 1 MG/ML Syringe IVPUSH PRN ×3 (15:10→23:30)
[2019-07-18] MEDS: Melatonin 3 MG Tab PO SCH (22:14)
[2019-07-19] MEDS: HYDROmorphone 1 MG/ML Syringe IVPUSH PRN (03:25)
[2019-07-19] MEDS: traMADol 50 MG Tab PO SCH ×2 (05:35→11:48)
[2019-07-19] MEDS: DULoxetine 30 MG Cap PO SCH (08:05)
[2019-07-19] MEDS: Acetaminophen/oxyCODONE 325-5 MG Tab PO PRN ×2 (08:05→11:47)
[2019-07-19] MEDS: Cefdinir 300 MG Cap PO SCH (08:05)
[2019-07-19] MEDS: Pantoprazole 40 MG Tab.CR PO SCH (08:05)
--- NOTE | 2019-07-19 10:11 | PCM.DCSUM1 ---
Discharge Summary - Hospital Course Brief History: 58-year-old female with a history of multiple abdominal surgeries and current ileostomy status, chronic pain who presented with abdominal pain nausea and a change in her ostomy output. She was admitted for hydration and observation management of possible gastroenteritis. Diagnosis: Stroke: No - Discharge Data Discharge Date: 07/19/19 Discharge Disposition: Home, Self-Care 01 Condition: Good - Referral to Home Health Primary Care Physician: Lisa Gerber MD - Discharge Diagnosis/Problem(s) (1) Enteritis SNOMED Code(s): 47251174 ICD Code: K52.9 - NONINFECTIVE GASTROENTERITIS AND COLITIS, UNSPECIFIED Status: Acute Current Visit: Yes (2) Gram negative sepsis SNOMED Code(s): 077552091 ICD Code: A41.50 - GRAM-NEGATIVE SEPSIS, UNSPECIFIED Status: Acute Current Visit: Yes (3) Pancytopenia SNOMED Code(s): 952897415 ICD Code: D61.818 - OTHER PANCYTOPENIA Status: Acute Current Visit: Yes (4) CKD (chronic kidney disease), stage III SNOMED Code(s): 054044486 ICD Code: N18.3 - CHRONIC KIDNEY DISEASE, STAGE 3 (MODERATE) Status: Chronic Current Visit: Yes (5) COVID-19 virus not detected SNOMED Code(s): 950099612 ICD Code: [id number] - Status: Acute Current Visit: Yes (6) Hypomagnesemia SNOMED Code(s): 329367415 ICD Code: E83.42 - HYPOMAGNESEMIA Status: Acute Current Visit: Yes - Patient Summary/Data Labs Pending at D/C: COVID 19 Hospital Course: Aline presented to the emergency room with acute on chronic abdominal pain, change in her ostomy output as well as weakness and dehydration. Work-up in the emergency room did not show any acute abnormalities on the CT of the abdomen and initially her laboratory studies were unremarkable with the exception of a lactic acid which was 3.7. The CT scan did incidentally note a very small area of probable pneumonia in the right lower lung near the diaphragm. She was not hypoxic or febrile at the time and this was thought to be an incidental finding and not a impressive infection. Initially enteritis was suspected with a likely viral origin. She is admitted for hydration and further management. The morning after admission she did develop a significant fever as well as very mild and temporary hypoxia. At this point there was some concern for a COVID19 infection and a swab was obtained and droplet precautions initiated. We did check LDH, procalcitonin and CRP. Procalcitonin and CRP were both significantly elevated. Her blood cultures from the night before returned positive for gram-negative rods. She was started on doxycycline and ceftriaxone. After the antibiotics were started the patient did not have any more fevers. The next morning laboratory studies noted a pancytopenia with a mild reduction in her white blood cell count and a hemoglobin drop down to around 8 and platelets below 100. Symptomatically she was a little better but still having a fair amount of left-sided abdominal pain. The next day her blood cultures returned positive for Klebsiella. Vitals were stable at this point. Laboratory studies were stable. With a lack of improvement in the positive blood cultures we did repeat a CT scan of the abdomen and pelvis to see if there was an occult infection but again this was unremarkable and the previously noted and very small area of pneumonia in the right lung seem to be shrinking. Over the next couple of days laboratory studies did slowly start to improve with the rebound in her hemoglobin and platelets. White blood cell count remains on the low side of normal but improving. Symptomatically she is doing much better. Abdominal pain is quite a bit better. She is not had any significant diarrhea and her stool seem to be back to normal. At this point my best guess is that she had probably a viral enteritis and may be a temporary bacteremia because of inflammation in the GI tract. Imaging did not show a definite source of infection in the abdomen and the very small area of pneumonia on the right side I do not think was clinically significant. It certainly was not large enough to create bacteria I do not think. She did not have any significant pulmonary symptoms. She is doing better with her therapy. She will be on cefdinir for 3 more days. Her COVID19 testing did return negative. She has follow-up planned next week. She should have a CBC rechecked at that point. - Patient Instructions Diet: Regular Diet as Tolerated Activity: As Tolerated Showering/Bathing: May Shower Notify Provider of: Fever, Increased Pain, Nausea and/or Vomiting Other/Special Instructions: 1. You were in the hospital for management of what I suspect was a viral gastroenteritis complicated by a bacterial superinfection. Your condition has been improving with antibiotic therapy. I do recommend ongoing antibiotic therapy to complete a total of 1 week of antibiotics. Please take cefdinir (Omnicef) 300 mg twice daily with food. Your first dose outside of the hospital will be tonight. 2. Continue your usual home medications as previously prescribed. 3. Follow up with Dr. Lisa Gerber next week. 4. Check CBC next Tuesday 07/25 - f/u pancytopenia - Discharge Plan *PRESCRIPTION DRUG MONITORING PROGRAM REVIEWED*: Yes *COPY OF PRESCRIPTION DRUG MONITORING REPORT IN PATIENT MYLA: No Prescriptions/Med Rec: Cefdinir [Omnicef] 300 mg PO BID #5 cap Home Medications: Home Meds Acetaminophen [Acetaminophen Extra Strength] 1,000 mg PO Q4HR PRN 06/17/19 [ History] Cyanocobalamin (Vitamin B-12) [Cyanocobalamin Injection] 1 ml IM ASDIRECTED 12/28 [History] DULoxetine [Cymbalta] 60 mg PO DAILY 06/17/19 [History] Imipramine HCl 200 mg PO BEDTIME 06/17/19 [History] Magnesium Chloride [Mag Delay] 192 mg PO TID 06/17/19 [History] Melatonin 3 mg PO BEDTIME 06/17/19 [History] Nystatin [Nystatin Oint] 1 dose TOP BID PRN 06/17/19 [History] OLANZapine [ZyPREXA] 5 mg PO Q12HR PRN 06/17/19 [History] Ondansetron [Zofran ODT] 4 mg PO Q4HR PRN 06/17/19 [History] Pedi Multivit No.25/Folic Acid [Flintstones Multivit Chew Tab] 1 tab PO DAILY [History] SUMAtriptan [Imitrex] 50 mg PO BTNUNITS PRN 06/17/19 [History] tiZANidine [Zanaflex] 4 mg PO BID PRN 06/17/19 [History] traMADol [Ultram] 100 mg PO QID 06/17/19 [History] Cefdinir [Omnicef] 300 mg PO BID #5 cap 07/19/19 [Rx] Oxygen Therapy Mode: Room Air Patient Handouts: Viral Gastroenteritis, Adult Referrals: Lisa Gerber MD [Primary Care Provider] - 07/24/19 3:30 pm (Dr. Gerber's nurse will contact you the day before your appointment and determine if appointment will be a virtual apointment through your [employer] Account or you will come into the clinic. If you have any questions please call the clinic at [phone].) - Discharge Summary/Plan Comment DC Time >30 min.: No - Patient Data Vitals - Most Recent: Last Vital Signs Temp 36.2 C 07/19/19 08:02 Pulse 83 07/19/19 08:02 Resp 16 07/19/19 01:00 BP 139/74 07/19/19 08:02 Pulse Ox 98 07/19/19 01:00 Weight - Most Recent: 80.7 kg I&O - Last 24 hours: Intake & Output 07/18/19 07/19/19 07/19/19 22:59 06:59 14:59 Intake Total 240 500 Output Total 240 Balance 0 500 Lab Results - Last 24 hrs: Laboratory Results - last 24 hr 07/19/19 07/19/19 Range/Units 05:30 05:30 WBC 2.7 L (4.5-11.0) K/uL RBC 3.02 L (3.30-5.50) M/uL Hgb 8.8 L (12.0-15.0) g/dL Hct 29.0 L (36.0-48.0) % MCV 96 (80-98) fL MCH 29 (27-31) pg MCHC 30 L (32-36) % Plt Count 123 L (150-400) K/uL Sodium 140 (140-148) mmol/L Potassium 4.4 (3.6-5.2) mmol/L Chloride 106 (100-108) mmol/L Carbon Dioxide 26 (21-32) mmol/L Anion Gap 8.3 (5.0-14.0) mmol/L BUN 14 (7-18) mg/dL Creatinine 1.0 (0.6-1.0) mg/dL Est Cr Clr Drug Dosing 59.61 mL/min Estimated GFR (MDRD) 57 L (>60) Glucose 119 H (74-106) mg/dL Calcium 8.4 L (8.5-10.1) mg/dL YANNI Results - Last 24 hrs: Microbiology 07/17/19 04:25 Aerobic Blood Culture - Preliminary Blood - Port-A-Cath NO GROWTH AFTER 2 DAYS Anaerobic Blood Culture - Preliminary NO GROWTH AFTER 2 DAYS Med Orders - Current: Current Medications Acetaminophen (Tylenol) 650 mg PO Q4H PRN PRN Reason: Pain (Mild 1-3)/fever Last Admin: 07/15/19 22:29 Dose: 650 mg Benzocaine/Menthol (Cepacol Sore Throat) 1 lozenge MUCMEM Q2H PRN PRN Reason: Sore Throat Last Admin: 07/15/19 22:29 Dose: 1 polina Cefdinir (Omnicef) 300 mg PO BID [facility] Last Admin: 07/19/19 08:05 Dose: 300 mg Duloxetine HCl (Cymbalta) 60 mg PO DAILY [facility] Last Admin: 07/19/19 08:05 Dose: 60 mg Heparin Sodium (Porcine) (Heparin Lock Flush 100 Units/Ml) 500 units FLUSH ASDIRECTED PRN PRN Reason: after lab draws Last Admin: 07/19/19 05:34 Dose: 500 units Hydromorphone HCl (Dilaudid) 1 mg IVPUSH Q4H PRN PRN Reason: Pain (severe 7-10) Last Admin: 07/19/19 03:25 Dose: 1 mg Sodium Chloride (Normal Saline) 1,000 mls @ 25 mls/hr IV ASDIRECTED [facility] Last Admin: 07/17/19 06:08 Dose: 25 mls/hr Imipramine HCl (Imipramine Hcl) 200 mg PO BEDTIME [facility] Last Admin: 07/18/19 22:13 Dose: 200 mg Melatonin (Melatonin) 3 mg PO BEDTIME [facility] Last Admin: 07/18/19 22:14 Dose: 3 mg Olanzapine (Zyprexa) 5 mg PO Q12H PRN PRN Reason: Other Ondansetron HCl (Zofran Odt) 4 mg PO Q4H PRN PRN Reason: Other Oxycodone/Acetaminophen (Percocet 325-5 Mg) 1 - 2 tab PO Q4H PRN PRN Reason: Pain Last Admin: 07/19/19 08:05 Dose: 2 tab Pantoprazole Sodium (Protonix) 40 mg PO BIDAC [facility] Last Admin: 07/19/19 08:05 Dose: 40 mg Sodium Chloride (Saline Flush) 10 ml FLUSH ASDIRECTED PRN PRN Reason: Keep Vein Open Tizanidine HCl (Zanaflex) 4 mg PO BID PRN PRN Reason: Other Last Admin: 07/17/19 20:52 Dose: 4 mg Tramadol HCl (Ultram) 100 mg PO Q6H [facility] Last Admin: 07/19/19 05:35 Dose: 100 mg Discontinued Medications Diphenhydramine HCl (Benadryl) 25 mg IVPUSH ONETIME ONE Stop: 07/14/19 10:18 Last Admin: 07/14/19 10:55 Dose: 25 mg Enoxaparin Sodium (Lovenox) 40 mg SUBCUT Q24H [facility] Last Admin: 07/15/19 16:03 Dose: 40 mg Heparin Sodium (Porcine) (Heparin Lock Flush 100 Units/Ml) Confirm Administered Dose 500 units .ROUTE .STK-MED ONE Stop: 07/18/19 11:20 Last Admin: 07/18/19 11:32 Dose: 500 units Hydromorphone HCl (Dilaudid) 0.5 mg IVPUSH ONETIME ONE Stop: 07/14/19 10:17 Last Admin: 07/14/19 10:53 Dose: 0.5 mg Hydromorphone HCl (Dilaudid) 1 mg IVPUSH ONETIME ONE Stop: 07/14/19 11:25 Last Admin: 07/14/19 11:31 Dose: 1 mg Hydromorphone HCl (Dilaudid) 0.5 mg IVPUSH ONETIME ONE Stop: 07/14/19 12:27 Last Admin: 07/14/19 12:32 Dose: 0.5 mg Hydromorphone HCl (Dilaudid) 0.5 mg IVPUSH Q2H PRN PRN Reason: Pain Last Admin: 07/18/19 02:55 Dose: 0.5 mg Lactated Ringer's (Ringers, Lactated) 1,000 mls @ 999 mls/hr IV ASDIRECTED [facility] Last Admin: 07/14/19 10:50 Dose: 999 mls/hr Magnesium Sulfate 2 gm/ Premix 50 mls @ 12.5 mls/hr IV ONETIME ONE Stop: 07/14/19 15:21 Last Admin: 07/14/19 11:33 Dose: 12.5 mls/hr Lactated Ringer's (Ringers, Lactated) 1,000 mls @ 999 mls/hr IV BOLUS ONE Stop: 07/14/19 12:31 Last Admin: 07/14/19 11:34 Dose: 999 mls/hr Lactated Ringer's (Ringers, Lactated) 1,000 mls @ 125 mls/hr IV ASDIRECTED [facility] Last Admin: 07/15/19 07:19 Dose: 125 mls/hr Ceftriaxone Sodium 1 gm/ (Sodium Chloride) 50 mls @ 100 mls/hr IV Q24H [facility] Last Admin: 07/16/19 08:44 Dose: 100 mls/hr Doxycycline Hyclate 100 mg/ (Sodium Chloride) 100 mls @ 100 mls/hr IV Q12H [facility] Last Admin: 07/17/19 10:19 Dose: 100 mls/hr Sodium Chloride (Normal Saline) 1,000 mls @ 999 mls/hr IV ASDIRECTED ONE Stop: 07/15/19 10:00 Last Admin: 07/15/19 09:19 Dose: 999 mls/hr Magnesium Sulfate 2 gm/ Premix 50 mls @ 25 mls/hr IV Q6H [facility] Stop: 07/16/19 05:59 Last Admin: 07/16/19 03:09 Dose: 25 mls/hr Ceftazidime 1 gm/ Sodium (Chloride) 50 mls @ 100 mls/hr IV Q8HR [facility] Stop: 07/17/19 16:00 Last Admin: 07/17/19 14:24 Dose: 100 mls/hr Magnesium Sulfate 2 gm/ Premix 50 mls @ 12.5 mls/hr IV ONETIME ONE Stop: 07/17/19 15:59 Last Admin: 07/17/19 12:12 Dose: 12.5 mls/hr Sodium Chloride (Normal Saline) 76 mls @ 3 mls/sec IV ONETIME ONE Stop: 07/18/19 11:05 Last Admin: 07/18/19 11:40 Dose: 3 mls/sec Iopamidol (Isovue-300 (61%)) 100 ml IV . DIRECTED PRN PRN Reason: RADIOLOGY EXAM Stop: 07/18/19 16:00 Last Admin: 07/18/19 11:40 Dose: 100 ml Ketamine HCl (Ketalar) 15 mg IV ONETIME ONE Stop: 07/14/19 12:28 Last Admin: 07/14/19 12:35 Dose: 15 mg Magnesium Oxide (Magnesium Oxide) 400 mg PO TID [facility]SIE Last Admin: 07/15/19 09:13 Dose: 400 mg Ondansetron HCl (Zofran) 4 mg IVPUSH ONETIME ONE Stop: 07/14/19 10:17 Last Admin: 07/14/19 10:55 Dose: 4 mg Sodium Chloride (Saline Flush) 10 ml FLUSH ASDIRECTED PRN PRN Reason: Keep Vein Open Last Admin: 07/14/19 10:51 Dose: 10 ml Sodium Chloride (Saline Flush) 10 ml FLUSH ONETIME PRN PRN Reason: PER RADIOLOGY PROTOCOL Stop: 07/18/19 11:05 Last Admin: 07/18/19 11:40 Dose: 10 ml - Exam Quality Assessment: Denies: Supplemental Oxygen General: Reports: Alert, Oriented, Cooperative, No Acute Distress Lungs: Reports: Normal Respiratory Effort GI/Abdominal Exam: Soft, No Distention Extremities: No Pedal Edema Psy/Mental Status: Reports: Alert, Normal Affect
== END 2019-07-19 16:46 | disposition home or self-care (01) | DRG 872 ==
LOC: JP.ED 09:30 → JP.MS 15:13 → OBSVTOIN 07-15 10:23
PROVIDERS: ADMIT Hospitalist; ATTEND Internal Medicine
DX: A41.50 Gram-negative sepsis, unspecified (principal); A08.4 Viral intestinal infection, unspecified; N18.3 Chronic kidney disease, stage 3 (moderate); E83.42 Hypomagnesemia; F41.9 Anxiety disorder, unspecified; E53.8 Deficiency of other specified B group vitamins; E86.0 Dehydration; B96.1 Klebsiella pneumoniae [K. pneumoniae] as the cause of diseases classified elsewhere; Z90.49 Acquired absence of other specified parts of digestive tract; Z79.899 Other long term (current) drug therapy; Z90.710 Acquired absence of both cervix and uterus; Z93.2 Ileostomy status
CPT/HCPCS: 36415; 71045; 71045-26; 74018; 74018-26; 74176; 74177; 74177-26; 80048; 80053; 83605; 83615; 83690; 83735; 84145; 84484; 85025; 85027; 85379; 86140; 87040; 87077; 87081; 87186; 87804; 87804-59; 87880-QW; 96361; 96365; 96366; 96372; 96375; 96376; 99285-25; A9270-GY; C1751; G0378; J0696; J0713; J1170; J1200; J1642; J1650; J2405; J3475; J3490; J7030; J7050; J7120; Q9967; U0002

== ENCOUNTER 2019-07-20 16:47 | Inpatient (IN) | payer OTHER ==
[2019-07-20] MEDS ORDERED: HYDROmorphone 0.5 MG/0.5 ML Syringe IVPUSH ONE ×2 (18:03→19:11)
--- NOTE | 2019-07-20 18:16 | EDM.PDOC ---
ED HPI GENERAL MEDICAL PROBLEM - General Chief Complaint: General Stated Complaint: LOW BACK PAIN, HOT & COLD FLASHES Time Seen by Provider: 07/20/19 18:00 Source of Information: Reports: Patient, Old Records History Limitations: Reports: No Limitations - History of Present Illness INITIAL COMMENTS - FREE TEXT/NARRATIVE: 58 yo female was discharged from here yesterday late afternoon. Dr. Pedersen took care of her during that admission. She had a negative CT scan of her abdomen during that visit. She had a mildly elevated lactic acid level on admission. Her WBC ct was low. She did have Klebsiella on a blood culture so was sent home yesterday on a cephalosporin and tramadol for pain relief. She states now that her LLQ pain that she had during her recent stay has progressed over the course of the day today and tramadol is not touching her pain. Has had chills today, but no fever. Her colostomy fluid is looser than normal. She is accompanied by her who provides much of the hx today. Was tested for COVID-19 and was negative. Onset: Gradual (Has been present for a couple weeks, got better while hospitalized, worse over the course of the day today. ) Onset Date: 07/20/19 Duration: Hour(s):, Getting Worse Location: Reports: Abdomen (LLQ) Quality: Reports: Ache Severity: Severe Improves with: Reports: Medication Worsens with: Reports: Other (unknown) Context: Reports: Other (See HPI) Associated Symptoms: Reports: Other (some low back pain). Denies: Fever/Chills , Nausea/Vomiting, Rash Treatments TROUBLE SHOOTER: Reports: Other (see below) (Tramadol) - Related Data Allergies Allergy/AdvReac Type Severity Reaction Status Date / Time No Known Allergies Allergy Verified 07/20/19 18:30 Home Meds: Home Meds Acetaminophen [Acetaminophen Extra Strength] 1,000 mg PO Q4HR PRN 06/17/19 [ History] Cyanocobalamin (Vitamin B-12) [Cyanocobalamin Injection] 1 ml IM ASDIRECTED 12/28 [History] DULoxetine [Cymbalta] 60 mg PO DAILY 06/17/19 [History] Imipramine HCl 200 mg PO BEDTIME 06/17/19 [History] Magnesium Chloride [Mag Delay] 192 mg PO TID 06/17/19 [History] Melatonin 3 mg PO BEDTIME 06/17/19 [History] Nystatin [Nystatin Oint] 1 dose TOP BID PRN 06/17/19 [History] OLANZapine [ZyPREXA] 5 mg PO Q12HR PRN 06/17/19 [History] Ondansetron [Zofran ODT] 4 mg PO Q4HR PRN 06/17/19 [History] Pedi Multivit No.25/Folic Acid [Flintstones Multivit Chew Tab] 1 tab PO DAILY [History] SUMAtriptan [Imitrex] 50 mg PO BTNUNITS PRN 06/17/19 [History] tiZANidine [Zanaflex] 4 mg PO BID PRN 06/17/19 [History] traMADol [Ultram] 100 mg PO QID 06/17/19 [History] Cefdinir [Omnicef] 300 mg PO BID #5 cap 07/19/19 [Rx] Past Medical History HEENT History: Reports: Impaired Vision Cardiovascular History: Reports: None Gastrointestinal History: Reports: Bowel Obstruction, Other (See Below) Other Gastrointestinal History: hernia, multiple bowel surgerys Genitourinary History: Reports: None 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: Neurological History: Reports: Migraines Psychiatric History: Reports: Anxiety Hematologic History: Reports: B12 Deficiency - Past Surgical History Head Surgeries/Procedures: Reports: None HEENT Surgical History: Reports: Adenoidectomy, Tonsillectomy Cardiovascular Surgical History: Reports: Cardiac Ablation GI Surgical History: Reports: Appendectomy, Colonoscopy, EGD, Other (See Below) Other GI Surgeries/Procedures: hernia, has iliostomy Female Surgical History: Reports: Hysterectomy Neurological Surgical History: Reports: None Dermatological Surgical History: Reports: None Social & Family History - Tobacco Use Smoking Status *Q: Never Smoker - Caffeine Use Caffeine Use: Reports: None ED ROS GENERAL - Review of Systems Review Of Systems: See Below Constitutional: Reports: Chills, Decreased Appetite. Denies: Fever HEENT: Reports: No Symptoms Respiratory: Reports: No Symptoms Cardiovascular: Reports: No Symptoms Endocrine: Reports: No Symptoms GI/Abdominal: Reports: Abdominal Pain (LLQ), Diarrhea, Decreased Appetite. Denies: Black Stool, Bloody Stool, Constipation, Distension, Hematochezia, Nausea, Vomiting : Reports: No Symptoms Musculoskeletal: Reports: Back Pain (mild low back) Skin: Reports: No Symptoms Neurological: Reports: No Symptoms Psychiatric: Reports: Anxiety, Other (crying) ED EXAM, GENERAL - Physical Exam Exam: See Below Exam Limited By: No Limitations General Appearance: Alert Eye Exam: Bilateral Eye: Normal Inspection Ears: Normal External Exam, Normal Canal, Hearing Grossly Normal Ear Exam: Bilateral Ear: Auricle Normal, Canal Normal Nose: Normal Inspection, No Blood Throat/Mouth: Normal Inspection, Normal Lips, Normal Oropharynx, Normal Voice, No Airway Compromise Head: Atraumatic, Normocephalic Neck: Normal Inspection Respiratory/Chest: No Respiratory Distress, Lungs Clear, Normal Breath Sounds, No Accessory Muscle Use Cardiovascular: Regular Rate, Rhythm, No Edema GI/Abdominal: Normal Bowel Sounds, Soft, No Distention, Tender (in area of her colostomy bag in the LLQ). No: Non-Tender, Distended, Guarding, Rigid, Rebound Back Exam: Normal Inspection Extremities: Normal Inspection Neurological: Alert, Oriented, CN II-XII Intact, Normal Cognition Psychiatric: Tearful Skin Exam: Warm, Dry, Intact, Normal Color, No Rash Course - Vital Signs Text/Narrative:: Discussed case with Dr. Pedersen @ 1910h Last Recorded V/S: Last Vital Signs Temp 36.6 C 07/20/19 17:31 Pulse 118 H 07/20/19 17:31 Resp 22 H 07/20/19 17:31 BP 162/116 H 07/20/19 17:31 Pulse Ox 100 07/20/19 17:31 - Orders/Labs/Meds Orders: Active Orders 24 hr Category Date Time Status CULTURE BLOOD [BC] Stat Lab 07/20/19 18:15 Received Iopamidol [Isovue-300 (61%)] Med 07/20/19 19:30 Active 100 ml IV . DIRECTED Sodium Chloride 0.9% [Normal Saline] 80 ml Med 07/20/19 19:30 Active IV ASDIRECTED Sodium Chloride 0.9% [Saline Flush] Med 07/20/19 18:02 Active 10 ml FLUSH ASDIRECTED PRN Saline Lock Insert [OM.PC] Routine Oth 07/20/19 18:02 Ordered Medication Orders Sodium Chloride (Normal Saline) 80 mls @ 3 mls/sec IV ASDIRECTED CASSIE Last Admin: 07/20/19 19:37 Dose: 3 mls/sec Iopamidol (Isovue-300 (61%)) 100 ml IV . DIRECTED CASSIE Last Admin: 07/20/19 19:37 Dose: 100 ml Sodium Chloride (Saline Flush) 10 ml FLUSH ASDIRECTED PRN PRN Reason: Keep Vein Open Last Admin: 07/20/19 19:36 Dose: 10 ml Admin: 07/20/19 18:23 Dose: 10 ml Labs: Laboratory Tests 07/20/19 07/20/19 07/20/19 Range/Units 18:15 18:15 18:15 WBC 5.4 (4.5-11.0) K/uL RBC 3.95 (3.30-5.50) M/uL Hgb 11.2 L D (12.0-15.0) g/dL Hct 36.4 (36.0-48.0) % MCV 92 (80-98) fL MCH 28 (27-31) pg MCHC 31 L (32-36) % Plt Count 189 (150-400) K/uL Sodium 137 L (140-148) mmol/L Potassium 4.0 (3.6-5.2) mmol/L Chloride 100 (100-108) mmol/L Carbon Dioxide 21 (21-32) mmol/L Anion Gap 20.0 H (5.0-14.0) mmol/L BUN 13 (7-18) mg/dL Creatinine 1.1 H (0.6-1.0) mg/dL Est Cr Clr Drug Dosing 53.55 mL/min Estimated GFR (MDRD) 51 L (>60) Glucose 100 (74-106) mg/dL Lactic Acid 4.6 H (0.4-2.0) mmol/L Calcium 9.7 D (8.5-10.1) mg/dL Total Bilirubin 0.3 (0.2-1.0) mg/dL AST 16 (15-37) U/L ALT 24 (12-78) U/L Alkaline Phosphatase 127 H (46-116) U/L Lactate Dehydrogenase (82-234) U/L Total Protein 8.1 (6.4-8.2) g/dL Albumin 4.0 (3.4-5.0) g/dL Globulin 4.1 H (2.3-3.5) g/dL Albumin/Globulin Ratio 1.0 L (1.2-2.2) 07/20/19 Range/Units 19:11 WBC (4.5-11.0) K/uL RBC (3.30-5.50) M/uL Hgb (12.0-15.0) g/dL Hct (36.0-48.0) % MCV (80-98) fL MCH (27-31) pg MCHC (32-36) % Plt Count (150-400) K/uL Sodium (140-148) mmol/L Potassium (3.6-5.2) mmol/L Chloride (100-108) mmol/L Carbon Dioxide (21-32) mmol/L Anion Gap (5.0-14.0) mmol/L BUN (7-18) mg/dL Creatinine (0.6-1.0) mg/dL Est Cr Clr Drug Dosing mL/min Estimated GFR (MDRD) (>60) Glucose (74-106) mg/dL Lactic Acid (0.4-2.0) mmol/L Calcium (8.5-10.1) mg/dL Total Bilirubin (0.2-1.0) mg/dL AST (15-37) U/L ALT (12-78) U/L Alkaline Phosphatase (46-116) U/L Lactate Dehydrogenase 174 (82-234) U/L Total Protein (6.4-8.2) g/dL Albumin (3.4-5.0) g/dL Globulin (2.3-3.5) g/dL Albumin/Globulin Ratio (1.2-2.2) Meds: Medications Generic Name Dose Route Start Last Admin Trade Name Freq PRN Reason Stop Dose Admin Sodium Chloride 80 mls @ 3 mls/sec 07/20/19 19:30 07/20/19 19:37 Normal Saline IV 3 mls/sec ASDIRECTED CASSIE Administration Iopamidol 100 ml 07/20/19 19:30 07/20/19 19:37 Isovue-300 (61%) IV 100 ml . DIRECTED CASSIE Administration Sodium Chloride 10 ml 07/20/19 18:02 07/20/19 19:36 Saline Flush FLUSH 10 ml ASDIRECTED PRN Administration Keep Vein Open Discontinued Medications Generic Name Dose Route Start Last Admin Trade Name Freq PRN Reason Stop Dose Admin Dicyclomine HCl 20 mg 04/11/20 20:35 Bentyl IM 07/20/19 20:36 ONETIME ONE Hydromorphone HCl 0.5 mg 07/20/19 18:03 07/20/19 18:23 Dilaudid IVPUSH 07/20/19 18:04 0.5 mg ONETIME ONE Administration Hydromorphone HCl 0.5 mg 07/20/19 19:11 07/20/19 19:17 Dilaudid IVPUSH 07/20/19 19:12 0.5 mg ONETIME ONE Administration Lactated Ringer's 1,000 mls @ 1,000 mls/hr 07/20/19 18:17 07/20/19 18:29 Ringers, Lactated IV 07/20/19 19:16 1,000 mls/hr BOLUS ONE Administration - Radiology Interpretation Free Text/Narrative:: CT abdomen and pelvis with contrast- IMPRESSION: 1. No source for pain or diarrhea. Previous stasis appearance of the exiting ileostomy loop has resolved. 2. Improving presumed inflammatory or infectious reticulonodular density at the right costophrenic angle. 3. Hepatosplenomegaly unchanged. Please note that all CT scans at this facility use dose modulation, iterative reconstruction, and/or weight-based dosing when appropriate to reduce radiation dose to as low as reasonably achievable. Dictated by Yaay Beverly MD @ Jul 20 2019 8:29PM (Electronic Signature) CT Results Date: 07/20/19 CT Results Time: 20:34 Departure - Departure Time of Disposition: 20:50 Disposition: Refer to Observation Condition: Fair Clinical Impression: Abdominal pain Qualifiers: Abdominal location: generalized Qualified Code(s): R10.84 - Generalized abdominal pain - Discharge Information *PRESCRIPTION DRUG MONITORING PROGRAM REVIEWED*: No *COPY OF PRESCRIPTION DRUG MONITORING REPORT IN PATIENT MYLA: No Referrals: Lisa Gerber MD [Primary Care Provider] - Forms: ED Department Discharge Sepsis Event Note - Evaluation Sepsis Screening Result: No Definite Risk - Focused Exam Vital Signs: Vital Signs Temp Pulse Resp BP Pulse Ox 07/20/19 17:31 36.6 C 118 H 22 H 162/116 H 100 07/20/19 17:15 36.6 C 118 H 22 H 162/116 H 100 Date Exam was Performed: 07/20/19 Time Exam was Performed: 20:39 - My Orders Last 24 Hours: My Active Orders 07/20/19 18:02 Sodium Chloride 0.9% [Saline Flush] 10 ml FLUSH ASDIRECTED PRN Saline Lock Insert [OM.PC] Routine 07/20/19 18:15 CULTURE BLOOD [BC] Stat 07/20/19 19:30 Iopamidol [Isovue-300 (61%)] 100 ml IV . DIRECTED Sodium Chloride 0.9% [Normal Saline] 80 ml IV ASDIRECTED - Assessment/Plan Last 24 Hours: My Active Orders 07/20/19 18:02 Sodium Chloride 0.9% [Saline Flush] 10 ml FLUSH ASDIRECTED PRN Saline Lock Insert [OM.PC] Routine 07/20/19 18:15 CULTURE BLOOD [BC] Stat 07/20/19 19:30 Iopamidol [Isovue-300 (61%)] 100 ml IV . DIRECTED Sodium Chloride 0.9% [Normal Saline] 80 ml IV ASDIRECTED
[2019-07-20] MEDS ORDERED: Lactated Ringers 1,000 ML IV ONE (18:17)
[2019-07-20] MEDS: Sodium Chloride 0.9% 10 ML Syringe FLUSH PRN ×2 (18:23→19:36)
[2019-07-20] MEDS ORDERED: Iopamidol 612 MG/ML 100 ML Bottle IV SCH (19:30)
[2019-07-20] MEDS ORDERED: Sodium Chloride 0.9% 80 ML IV SCH (19:30)
--- NOTE | 2019-07-20 20:30 | CRLCT ---
INDICATION: Left lower quadrant abdominal pain with diarrhea. Elevated lactate. COMPARISON: CT 18 July 2019 and 14 July 2019. TECHNIQUE: 100 mL Isovue-300 IV contrast. FINDINGS: Ill-defined subtle reticular nodular densities in the posterior right lung base. No measurable nodule. Minimal diffuse low-attenuation steatosis of the liver. Enlargement of the spleen with greatest length of 17.5 cm. Enlargement of the liver with greatest craniocaudal length of 21 cm. Large splenic vein. Normal pancreas. No adrenal mass. Likely remote postsurgical calcifications along the left retroperitoneal margin abutting the under surface of the distal pancreas and extending along the superficial margin of the proximal psoas. Associated linear and tubular soft tissue attenuation structures may be sequela of prior left nephrectomy. Right kidney is normal. Appearance of total colectomy. Left lower quadrant ileostomy. Somewhat kinked and distorted course of the remaining small bowel but no obstruction. No wall thickening. Small mesenteric root lymph nodes. Fatty replacement of the abdominal wall musculature. Presumably posteriorly displaced bladder with contour deformity. Surgical clips along its cephalad dorsal margin. IMPRESSION: 1. No source for pain or diarrhea. Previous stasis appearance of the exiting ileostomy loop has resolved. 2. Improving presumed inflammatory or infectious reticulonodular density at the right costophrenic angle. 3. Hepatosplenomegaly unchanged. Please note that all CT scans at this facility use dose modulation, iterative reconstruction, and/or weight-based dosing when appropriate to reduce radiation dose to as low as reasonably achievable. Dictated by Yaya Beverly MD @ Jul 20 2019 8:29PM Signed by Dr. Yaya Beverly @ Jul 20 2019 8:29PM
[2019-07-20] MEDS ORDERED: Dicyclomine 20 MG/2 ML SDV IM ONE ×2 (20:35→21:32)
[2019-07-20] MEDS ORDERED: HYDROmorphone 1 MG/ML Syringe IVPUSH ONE (21:11)
--- NOTE | 2019-07-20 21:22 | PCM.HP.2 ---
H&P History of Present Illness - General Date of Service: 07/20/19 Admit Problem/Dx: Admission Diagnosis/Problem Admission Diagnosis/Problem Partial bowel obstruction Source of Information: Patient, Provider History Limitations: Reports: No Limitations - History of Present Illness Initial Comments - Free Text/Narative: CC: My pain kept getting worse HPI: Aline presents to the emergency room today with abdominal pain that started this morning and has progressed throughout the day. She describes a sharp and stabbing pain that is most intense on the left side of her abdomen just lateral to her colostomy. The pain has been fairly constant and has built up in severity as the day has progressed. She did take tramadol at home without any relief. She has not had any nausea or vomiting. She reports that she has only passed air into her ileostomy today and has had very little stool over the past 24 hours. She has had some chills but no significant fevers or shaking chills. She has not had anything to eat since supper last night. She has been drinking some fluids today. No change in bladder habits. No muscle aches. No cough or shortness of breath. Work-up in the emergency room was fairly unremarkable other than a lactic acid level that was elevated at 4. CT scan did not show any obvious cause for her abdominal pain but did show a tortuous course for the intestine through the abdominal wall to the ileostomy. The patient is in significant distress and does not safe for outpatient management. The case has been discussed with Dr. Reno of the surgical team and he will be seeing her tomorrow morning. - Related Data Allergies/Adverse Reactions: Allergies Allergy/AdvReac Type Severity Reaction Status Date / Time No Known Allergies Allergy Verified 07/20/19 18:30 Home Medications: Home Meds Acetaminophen [Acetaminophen Extra Strength] 1,000 mg PO Q4HR PRN 06/17/19 [ History] Cyanocobalamin (Vitamin B-12) [Cyanocobalamin Injection] 1 ml IM ASDIRECTED 12/28 [History] DULoxetine [Cymbalta] 60 mg PO DAILY 06/17/19 [History] Imipramine HCl 200 mg PO BEDTIME 06/17/19 [History] Magnesium Chloride [Mag Delay] 192 mg PO TID 06/17/19 [History] Melatonin 3 mg PO BEDTIME 06/17/19 [History] Nystatin [Nystatin Oint] 1 dose TOP BID PRN 06/17/19 [History] OLANZapine [ZyPREXA] 5 mg PO Q12HR PRN 06/17/19 [History] Ondansetron [Zofran ODT] 4 mg PO Q4HR PRN 06/17/19 [History] Pedi Multivit No.25/Folic Acid [Flintstones Multivit Chew Tab] 1 tab PO DAILY [History] SUMAtriptan [Imitrex] 50 mg PO BTNUNITS PRN 06/17/19 [History] tiZANidine [Zanaflex] 4 mg PO BID PRN 06/17/19 [History] traMADol [Ultram] 100 mg PO QID 06/17/19 [History] Cefdinir [Omnicef] 300 mg PO BID #5 cap 07/19/19 [Rx] Past Medical History HEENT History: Reports: Impaired Vision Cardiovascular History: Reports: None Gastrointestinal History: Reports: Bowel Obstruction, Other (See Below) Other Gastrointestinal History: hernia, multiple bowel surgerys Genitourinary History: Reports: None COMB CAPPER History: Reports: Neurological History: Reports: Migraines Psychiatric History: Reports: Anxiety Hematologic History: Reports: B12 Deficiency - Past Surgical History Head Surgeries/Procedures: Reports: None HEENT Surgical History: Reports: Adenoidectomy, Tonsillectomy Cardiovascular Surgical History: Reports: Cardiac Ablation GI Surgical History: Reports: Appendectomy, Colonoscopy, EGD, Other (See Below) Other GI Surgeries/Procedures: hernia, has iliostomy Female Surgical History: Reports: Hysterectomy Neurological Surgical History: Reports: None Dermatological Surgical History: Reports: None Social & Family History - Family History Cardiac: Denies: CAD - Tobacco Use Smoking Status *Q: Never Smoker - Caffeine Use Caffeine Use: Reports: None H&P Review of Systems - Review of Systems: Review Of Systems: See Below Free Text/Narrative: A complete 12 point review of systems was obtained. Pertinent positives and negatives are noted in the history of present illness. All other systems were reviewed and were negative except as noted. Exam - Exam Exam: See Below - Vital Signs Vital Signs: Last Vital Signs Temp 36.6 C 07/20/19 17:31 Pulse 118 H 07/20/19 17:31 Resp 22 H 07/20/19 17:31 BP 162/116 H 07/20/19 17:31 Pulse Ox 100 07/20/19 17:31 Weight: 81.647 kg - Exam Quality Assessment: No: Supplemental Oxygen General: Alert, Oriented, Cooperative, Mild Distress HEENT: Conjunctiva Clear. No: Mucosa Moist & [place] (dry), Scleral Icterus Neck: Supple, Trachea Midline. No: Lymphadenopathy Lungs: Clear to Auscultation, Normal Respiratory Effort Cardiovascular: Regular Rhythm, Tachycardia GI/Abdominal Exam: Normal Bowel Sounds, Soft, No Distention, Tender (left side of abdomen ) Extremities: No Pedal Edema. No: Increased Warmth Peripheral Pulses: 2+: Dorsalis Pedis (L), Dorsalis Pedis (R) Skin: Warm, Dry Neuro Extensive - Mental Status: Alert, Oriented x3, Nl Response to Commands Neuro Extensive - Motor, Sensory, Reflexes: No: Dysarthria, Abnormal Motor, Tremor Psychiatric: Alert, Normal Affect - Patient Data Lab Results Last 24 hrs: Laboratory Results - last 24 hr 07/20/19 07/20/19 07/20/19 Range/Units 18:15 18:15 18:15 WBC 5.4 (4.5-11.0) K/uL RBC 3.95 (3.30-5.50) M/uL Hgb 11.2 L D (12.0-15.0) g/dL Hct 36.4 (36.0-48.0) % MCV 92 (80-98) fL MCH 28 (27-31) pg MCHC 31 L (32-36) % Plt Count 189 (150-400) K/uL Sodium 137 L (140-148) mmol/L Potassium 4.0 (3.6-5.2) mmol/L Chloride 100 (100-108) mmol/L Carbon Dioxide 21 (21-32) mmol/L Anion Gap 20.0 H (5.0-14.0) mmol/L BUN 13 (7-18) mg/dL Creatinine 1.1 H (0.6-1.0) mg/dL Est Cr Clr Drug Dosing 53.55 mL/min Estimated GFR (MDRD) 51 L (>60) Glucose 100 (74-106) mg/dL Lactic Acid 4.6 H (0.4-2.0) mmol/L Calcium 9.7 D (8.5-10.1) mg/dL Total Bilirubin 0.3 (0.2-1.0) mg/dL AST 16 (15-37) U/L ALT 24 (12-78) U/L Alkaline Phosphatase 127 H (46-116) U/L Lactate Dehydrogenase (82-234) U/L Total Protein 8.1 (6.4-8.2) g/dL Albumin 4.0 (3.4-5.0) g/dL Globulin 4.1 H (2.3-3.5) g/dL Albumin/Globulin Ratio 1.0 L (1.2-2.2) 07/20/19 Range/Units 19:11 WBC (4.5-11.0) K/uL RBC (3.30-5.50) M/uL Hgb (12.0-15.0) g/dL Hct (36.0-48.0) % MCV (80-98) fL MCH (27-31) pg MCHC (32-36) % Plt Count (150-400) K/uL Sodium (140-148) mmol/L Potassium (3.6-5.2) mmol/L Chloride (100-108) mmol/L Carbon Dioxide (21-32) mmol/L Anion Gap (5.0-14.0) mmol/L BUN (7-18) mg/dL Creatinine (0.6-1.0) mg/dL Est Cr Clr Drug Dosing mL/min Estimated GFR (MDRD) (>60) Glucose (74-106) mg/dL Lactic Acid (0.4-2.0) mmol/L Calcium (8.5-10.1) mg/dL Total Bilirubin (0.2-1.0) mg/dL AST (15-37) U/L ALT (12-78) U/L Alkaline Phosphatase (46-116) U/L Lactate Dehydrogenase 174 (82-234) U/L Total Protein (6.4-8.2) g/dL Albumin (3.4-5.0) g/dL Globulin (2.3-3.5) g/dL Albumin/Globulin Ratio (1.2-2.2) Result Diagrams: 07/20/19 18:15 07/20/19 18:15 Imaging Impressions Last 24 hrs: CT scan abdomen and pelvis-images personally reviewed-she is status post colectomy and left nephrectomy. There is no obvious evidence for obstruction. There are no dilated loops of bowel. Liver and spleen are both mildly enlarged. Tortuous course of the intestine through the abdominal wall to the ileostomy. Sepsis Event Note - Evaluation Sepsis Screening Result: No Definite Risk - Focused Exam Vital Signs: Vital Signs Temp Pulse Resp BP Pulse Ox 07/20/19 17:31 36.6 C 118 H 22 H 162/116 H 100 07/20/19 17:15 36.6 C 118 H 22 H 162/116 H 100 Date Exam was Performed: 07/20/19 Time Exam was Performed: 21:34 *Q Meaningful Use (ADM) - VTE *Q VTE Pharmacological Contraindications *Q: Patient Scheduled Surgery - VTE Risk Assess *Q Each Risk Factor Represents 1 Point: Age 41 - 59 years, Obesity ( BMI > 25 kg/m2 ) Total Score 1 Point Risk Factors: 2 Each Risk Factor Represents 2 Points: None Total Score 2 Point Risk Factors: 0 Each Risk Factor Represents 3 Points: None Total Score 3 Point Risk Factors: 0 Each Risk Factor Represents 5 Points: None Total Score 5 Point Risk Factors: 0 Venous Thromboembolism Risk Factor Score *Q: 2 - Problem List (1) Partial small bowel obstruction SNOMED Code(s): 636560575 ICD Code: K56.600 - PARTIAL INTESTINAL OBSTRUCTION, UNSPECIFIED TO CAUSE Status: Acute Current Visit: Yes (2) Abdominal pain SNOMED Code(s): 78098406 ICD Code: R10.9 - UNSPECIFIED ABDOMINAL PAIN Status: Acute Current Visit : Yes Qualifiers: Abdominal location: left lower quadrant Qualified Code(s): R10.32 - Left lower quadrant pain (3) Hypomagnesemia SNOMED Code(s): 807998653 ICD Code: E83.42 - HYPOMAGNESEMIA Status: Acute Current Visit: No Problem List Initiated/Reviewed/Updated: Yes Orders Last 24hrs: Active Orders 24 hr Category Date Time Status Patient Status Manage Transfer [TRANSFER] Routine ADT 07/20/19 21:12 Ordered CULTURE BLOOD [BC] Stat Lab 07/20/19 18:15 Received Iopamidol [Isovue-300 (61%)] Med 07/20/19 19:30 Active 100 ml IV . DIRECTED Sodium Chloride 0.9% [Normal Saline] 80 ml Med 07/20/19 19:30 Active IV ASDIRECTED Sodium Chloride 0.9% [Saline Flush] Med 07/20/19 18:02 Active 10 ml FLUSH ASDIRECTED PRN Saline Lock Insert [OM.PC] Routine Oth 07/20/19 18:02 Ordered Resuscitation Status Routine Resus Stat 07/20/19 21:14 Ordered Medication Orders Sodium Chloride (Normal Saline) 80 mls @ 3 mls/sec IV ASDIRECTED [facility] Last Admin: 07/20/19 19:37 Dose: 3 mls/sec Iopamidol (Isovue-300 (61%)) 100 ml IV . DIRECTED [facility] Last Admin: 07/20/19 19:37 Dose: 100 ml Sodium Chloride (Saline Flush) 10 ml FLUSH ASDIRECTED PRN PRN Reason: Keep Vein Open Last Admin: 07/20/19 19:36 Dose: 10 ml Admin: 07/20/19 18:23 Dose: 10 ml Assessment/Plan Comment:: ASSESSMENT AND PLAN - Acute on chronic abdominal pain-recent hospitalization pain was better yesterday. Significant escalation of pain over the past 12 hours or so. Lactic acid level is elevated at 4. There is concern for partial obstruction versus potentially an ischemic bowel. She is having significant pain and is unable to take anything by mouth at this time. -IV fluids overnight -Pain and nausea management -Flat and upright in the morning -Empiric antibiotics with meropenem since she has recently had antibiotics -Surgical consultation with Dr. Reno History of inflammatory bowel disease-previous colectomy and ileostomy formation. Chronic hypomagnesemia-receives regular infusions of magnesium at the infusion center. Maintenance issues - - DVT prophylaxis -mechanical with possible surgery - GI prophylaxis -IV PPI - Nutrition -nothing by mouth - Law catheter -not indicated at this time CODE STATUS -full code Admission justification -this patient will be admitted for inpatient services and is medically appropriate meeting medical necessity for inpatient admission as outlined in my documentation. I reasonably expect the patient will require inpatient services that span a period time over 2 midnights. I reasonably expect this patient to be discharged or transferred within 96 hours [facility]. Disposition -I would anticipate discharge home after the hospital stay Primary care physician -Dr. Lisa Pedersen M.D. - Mortality Measure Prognosis:: Good
[2019-07-20] MEDS ORDERED: Acetaminophen 325 MG Tab PO PRN (22:00)
[2019-07-20] MEDS ORDERED: Magnesium Hydroxide 400 MG/5 ML Susp 30 ML Cup PO PRN (22:00)
[2019-07-20] MEDS ORDERED: Ondansetron 4 MG/2 ML SDV IV PRN (22:00)
[2019-07-20] MEDS ORDERED: Ondansetron 4 MG Tab.DIS PO PRN (22:00)
[2019-07-20] MEDS ORDERED: Albuterol 0.083% 2.5 MG/3 ML Neb Soln NEB PRN (22:00)
[2019-07-20] MEDS: Meropenem 1 GM in Sodium Chloride 0.9% 100 ML IV SCH (22:40)
[2019-07-20] MEDS: Pantoprazole 40 MG Vial IV SCH (22:41)
[2019-07-20] MEDS: Dextrose 5%-Lactated Ringers 1,000 ML IV SCH (22:41)
[2019-07-20] MEDS: HYDROmorphone 1 MG/ML Syringe IVPUSH PRN (23:47)
[2019-07-21] MEDS: HYDROmorphone 1 MG/ML Syringe IVPUSH PRN ×3 (01:48→06:09)
[2019-07-21] MEDS: Meropenem 1 GM in Sodium Chloride 0.9% 100 ML IV SCH ×3 (05:30→21:35)
[2019-07-21] MEDS ORDERED: HYDROmorphone/Normal Saline 15 MG/30 ML PCA IV PRN (08:05)
[2019-07-21] MEDS ORDERED: Naloxone 0.4 MG/ML SDV IV PRN (08:05)
[2019-07-21] MEDS: Lactobacillus Rhamnosus GG (Probiotic) Cap PO SCH ×2 (09:18→20:34)
[2019-07-21] MEDS: DULoxetine 30 MG Cap PO SCH (09:18)
[2019-07-21] MEDS: Magnesium Sulfate/Water 2 GM in Premix Bag 1 BAG IV SCH ×3 (09:28→22:33)
[2019-07-21] MEDS: Dextrose 5%-Lactated Ringers 1,000 ML IV SCH ×2 (09:32→20:50)
[2019-07-21] MEDS ORDERED: Albuterol/Ipratropium 3.0-0.5 MG/3 ML Neb Soln INH SCH (11:00)
[2019-07-21] MEDS: LORazepam 2 MG/ML SDV IVPUSH PRN (11:34)
--- NOTE | 2019-07-21 11:37 | PCM.PN ---
- General Info Date of Service: 07/21/19 Subjective Update: No acute events overnight. Pain has not been very well controlled and level has been continuously rated at 8 or greater. No obvious triggers to make the pain worse. The IV narcotics help a little bit but not for very long. No significant nausea. No diarrhea. Minimal output into the ileostomy. Blood cultures from the port site are positive for gram-negative rods. Dr. Reno did see the patient today and is planning surgery tomorrow to try to determine the cause of her pain and may potentially need to change the ileostomy site. Functional Status: Denies: Pain Controlled - Review of Systems General: Denies: Fever - Patient Data Vitals - Most Recent: Last Vital Signs Temp 36.2 C 07/21/19 10:54 Pulse 75 07/21/19 10:54 Resp 16 07/21/19 10:54 BP 123/54 L 07/21/19 10:54 Pulse Ox 97 07/21/19 10:54 Weight - Most Recent: 82.3 kg I&O - Last 24 Hours: Intake & Output 07/20/19 07/21/19 07/21/19 22:59 06:59 14:59 Intake Total 817 Output Total 150 100 Balance 667 -100 Lab Results Last 24 Hours: Laboratory Results - last 24 hr 07/20/19 07/20/19 07/20/19 Range/Units 18:15 18:15 18:15 WBC 5.4 (4.5-11.0) K/uL RBC 3.95 (3.30-5.50) M/uL Hgb 11.2 L D (12.0-15.0) g/dL Hct 36.4 (36.0-48.0) % MCV 92 (80-98) fL MCH 28 (27-31) pg MCHC 31 L (32-36) % Plt Count 189 (150-400) K/uL Sodium 137 L (140-148) mmol/L Potassium 4.0 (3.6-5.2) mmol/L Chloride 100 (100-108) mmol/L Carbon Dioxide 21 (21-32) mmol/L Anion Gap 20.0 H (5.0-14.0) mmol/L BUN 13 (7-18) mg/dL Creatinine 1.1 H (0.6-1.0) mg/dL Est Cr Clr Drug Dosing 53.55 mL/min Estimated GFR (MDRD) 51 L (>60) Glucose 100 (74-106) mg/dL Lactic Acid 4.6 H (0.4-2.0) mmol/L Calcium 9.7 D (8.5-10.1) mg/dL Phosphorus (2.5-4.9) mg/dL Magnesium (1.8-2.4) mg/dL Total Bilirubin 0.3 (0.2-1.0) mg/dL AST 16 (15-37) U/L ALT 24 (12-78) U/L Alkaline Phosphatase 127 H (46-116) U/L Lactate Dehydrogenase (82-234) U/L Total Protein 8.1 (6.4-8.2) g/dL Albumin 4.0 (3.4-5.0) g/dL Globulin 4.1 H (2.3-3.5) g/dL Albumin/Globulin Ratio 1.0 L (1.2-2.2) Blood Type Gel Antibody Screen Crossmatch 07/20/19 07/20/19 07/21/19 Range/Units 19:11 22:00 04:42 WBC 3.9 L (4.5-11.0) K/uL RBC 3.25 L (3.30-5.50) M/uL Hgb 9.3 L (12.0-15.0) g/dL Hct 30.5 L (36.0-48.0) % MCV 94 (80-98) fL MCH 29 (27-31) pg MCHC 31 L (32-36) % Plt Count 144 L (150-400) K/uL Sodium (140-148) mmol/L Potassium (3.6-5.2) mmol/L Chloride (100-108) mmol/L Carbon Dioxide (21-32) mmol/L Anion Gap (5.0-14.0) mmol/L BUN (7-18) mg/dL Creatinine (0.6-1.0) mg/dL Est Cr Clr Drug Dosing mL/min Estimated GFR (MDRD) (>60) Glucose (74-106) mg/dL Lactic Acid (0.4-2.0) mmol/L Calcium (8.5-10.1) mg/dL Phosphorus (2.5-4.9) mg/dL Magnesium 1.2 L D (1.8-2.4) mg/dL Total Bilirubin (0.2-1.0) mg/dL AST (15-37) U/L ALT (12-78) U/L Alkaline Phosphatase (46-116) U/L Lactate Dehydrogenase 174 (82-234) U/L Total Protein (6.4-8.2) g/dL Albumin (3.4-5.0) g/dL Globulin (2.3-3.5) g/dL Albumin/Globulin Ratio (1.2-2.2) Blood Type Gel Antibody Screen Crossmatch 07/21/19 07/21/19 07/21/19 Range/Units 04:42 04:42 06:45 WBC (4.5-11.0) K/uL RBC (3.30-5.50) M/uL Hgb (12.0-15.0) g/dL Hct (36.0-48.0) % MCV (80-98) fL MCH (27-31) pg MCHC (32-36) % Plt Count (150-400) K/uL Sodium 139 L (140-148) mmol/L Potassium 3.9 (3.6-5.2) mmol/L Chloride 103 (100-108) mmol/L Carbon Dioxide 24 (21-32) mmol/L Anion Gap 15.9 H (5.0-14.0) mmol/L BUN 11 (7-18) mg/dL Creatinine 1.1 H (0.6-1.0) mg/dL Est Cr Clr Drug Dosing 53.55 mL/min Estimated GFR (MDRD) 51 L (>60) Glucose 107 H (74-106) mg/dL Lactic Acid 2.7 H (0.4-2.0) mmol/L Calcium 8.7 (8.5-10.1) mg/dL Phosphorus (2.5-4.9) mg/dL Magnesium (1.8-2.4) mg/dL Total Bilirubin (0.2-1.0) mg/dL AST (15-37) U/L ALT (12-78) U/L Alkaline Phosphatase (46-116) U/L Lactate Dehydrogenase (82-234) U/L Total Protein (6.4-8.2) g/dL Albumin (3.4-5.0) g/dL Globulin (2.3-3.5) g/dL Albumin/Globulin Ratio (1.2-2.2) Blood Type Gel Antibody Screen Positive A* Crossmatch See Detail 07/21/19 Range/Units 08:02 WBC (4.5-11.0) K/uL RBC (3.30-5.50) M/uL Hgb (12.0-15.0) g/dL Hct (36.0-48.0) % MCV (80-98) fL MCH (27-31) pg MCHC (32-36) % Plt Count (150-400) K/uL Sodium (140-148) mmol/L Potassium (3.6-5.2) mmol/L Chloride (100-108) mmol/L Carbon Dioxide (21-32) mmol/L Anion Gap (5.0-14.0) mmol/L BUN (7-18) mg/dL Creatinine (0.6-1.0) mg/dL Est Cr Clr Drug Dosing mL/min Estimated GFR (MDRD) (>60) Glucose (74-106) mg/dL Lactic Acid (0.4-2.0) mmol/L Calcium (8.5-10.1) mg/dL Phosphorus 3.2 (2.5-4.9) mg/dL Magnesium (1.8-2.4) mg/dL Total Bilirubin (0.2-1.0) mg/dL AST (15-37) U/L ALT (12-78) U/L Alkaline Phosphatase (46-116) U/L Lactate Dehydrogenase (82-234) U/L Total Protein (6.4-8.2) g/dL Albumin (3.4-5.0) g/dL Globulin (2.3-3.5) g/dL Albumin/Globulin Ratio (1.2-2.2) Blood Type Gel Antibody Screen Crossmatch Eliud Results Last 24 Hours: Microbiology 07/20/19 18:15 Aerobic Blood Culture - Preliminary Blood - Port-A-Cath Med Orders - Current: Current Medications Acetaminophen (Tylenol) 650 mg PO Q4H PRN PRN Reason: Pain (Mild 1-3)/fever Albuterol (Proventil Neb Soln) 2.5 mg NEB Q4H PRN PRN Reason: Shortness Of Breath/wheezing Ropivacaine 41 ml/Dexamethasone 8 mg/Epinephrine HCl 0.4 mg/ Sodium Chloride 36.6 ml 0 ml NERVRT ASDIRECTED [facility] Duloxetine HCl (Cymbalta) 60 mg PO DAILY [facility] Last Admin: 07/21/19 09:18 Dose: 60 mg Hydromorphone HCl (Dilaudid) 1 mg IVPUSH Q2H PRN PRN Reason: Pain Last Admin: 07/21/19 06:09 Dose: 1 mg Hydromorphone HCl (Dilaudid Hydraulic Blocker 15 Mg In Ns 30 Ml) 0 mg IV ASDIRECTED PRN; Protocol PRN Reason: FACTORY CLERK PAIN CONTROL Last Admin: 07/21/19 09:18 Dose: 15 mg Dextrose/Lactated Ringer's (Dextrose 5%-Lactated Ringers) 1,000 mls @ 100 mls/ hr IV ASDIRECTED [facility] Last Admin: 07/21/19 09:32 Dose: 100 mls/hr Meropenem 1 gm/ Sodium (Chloride) 100 mls @ 200 mls/hr IV Q8H [facility] Last Admin: 07/21/19 05:30 Dose: 200 mls/hr Magnesium Sulfate 2 gm/ Premix 50 mls @ 25 mls/hr IV Q6H [facility] Stop: 07/24/19 05:59 Last Admin: 07/21/19 09:28 Dose: 25 mls/hr Ketamine HCl 50 mg/ Sodium (Chloride) 50 mls @ 18.6 mls/hr IV ASDIRECTED [facility] Imipramine HCl (Imipramine Hcl) 200 mg PO BEDTIME [facility] Ketamine HCl (Ketalar) 31 mg IV ASDIRECTED [facility] Lactobacillus Rhamnosus (Culturelle) 1 cap PO BID [facility] Last Admin: 07/21/19 09:18 Dose: 1 cap Lorazepam (Ativan) 0.5 mg IVPUSH Q4H PRN PRN Reason: Nausea/Vomiting Magnesium Hydroxide (Milk Of Magnesia) 30 ml PO Q12H PRN PRN Reason: Constipation Naloxone HCl (Narcan) 0.1 mg IV ASDIRECTED PRN PRN Reason: decreased respiratory rate Ondansetron HCl (Zofran Odt) 4 mg PO Q6H PRN PRN Reason: Nausea able to take PO Ondansetron HCl (Zofran) 4 mg IV Q6H PRN PRN Reason: Nausea/Vomiting Pantoprazole Sodium (Protonix Iv) 40 mg IV Q24H [facility] Last Admin: 07/20/19 22:41 Dose: 40 mg Senna/Docusate Sodium (Senna Plus) 1 tab PO BID PRN PRN Reason: Constipation Sodium Chloride (Saline Flush) 10 ml FLUSH ASDIRECTED PRN PRN Reason: Keep Vein Open Last Admin: 07/20/19 19:36 Dose: 10 ml Discontinued Medications Albuterol/Ipratropium (Duoneb 3.0-0.5 Mg/3 Ml) 3 ml INH PREPRO CASSIE Stop: 07/21/19 11:01 Dicyclomine HCl (Bentyl) 20 mg IM ONETIME ONE Stop: 07/20/19 20:36 Last Admin: 07/20/19 22:05 Dose: Not Given Dicyclomine HCl (Bentyl) 20 mg IM ONETIME ONE Stop: 07/20/19 21:33 Last Admin: 07/20/19 21:38 Dose: 20 mg Hydromorphone HCl (Dilaudid) 0.5 mg IVPUSH ONETIME ONE Stop: 07/20/19 18:04 Last Admin: 07/20/19 18:23 Dose: 0.5 mg Hydromorphone HCl (Dilaudid) 0.5 mg IVPUSH ONETIME ONE Stop: 07/20/19 19:12 Last Admin: 07/20/19 19:17 Dose: 0.5 mg Hydromorphone HCl (Dilaudid) 1 mg IVPUSH ONETIME ONE Stop: 07/20/19 21:12 Last Admin: 07/20/19 21:28 Dose: 1 mg Lactated Ringer's (Ringers, Lactated) 1,000 mls @ 1,000 mls/hr IV BOLUS ONE Stop: 07/20/19 19:16 Last Admin: 07/20/19 18:29 Dose: 1,000 mls/hr Sodium Chloride (Normal Saline) 80 mls @ 3 mls/sec IV ASDIRECTED [facility] Last Admin: 07/20/19 19:37 Dose: 3 mls/sec Imipramine HCl (Imipramine Hcl) 200 mg PO BEDTIME [facility] Last Admin: 07/20/19 22:40 Dose: Not Given Iopamidol (Isovue-300 (61%)) 100 ml IV . DIRECTED [facility] Last Admin: 07/20/19 19:37 Dose: 100 ml - Exam Quality Assessment: No: Supplemental Oxygen General: Alert, Oriented, Cooperative, Mild Distress Lungs: Normal Respiratory Effort Cardiovascular: Regular Rate, Regular Rhythm GI/Abdominal Exam: Soft, No Distention Extremities: No Pedal Edema Psy/Mental Status: Alert, Normal Affect Sepsis Event Note - Evaluation Sepsis Screening Result: No Definite Risk - Focused Exam Vital Signs: Vital Signs Temp Pulse Pulse Resp BP BP Pulse Ox 07/21/19 10:54 36.2 C 75 16 123/54 L 97 07/21/19 07:50 36.4 C 79 12 129/51 L 98 07/21/19 03:16 36.3 C 84 15 125/56 L 97 Date Exam was Performed: 07/21/19 Time Exam was Performed: 11:33 - Problem List & Annotations (1) Partial small bowel obstruction SNOMED Code(s): 807851004 Code(s): K56.600 - PARTIAL INTESTINAL OBSTRUCTION, UNSPECIFIED TO CAUSE Status: Acute Current Visit: Yes (2) Abdominal pain SNOMED Code(s): 63098081 Code(s): R10.9 - UNSPECIFIED ABDOMINAL PAIN Status: Acute Current Visit: Yes Qualifiers: Abdominal location: left lower quadrant Qualified Code(s): R10.32 - Left lower quadrant pain (3) Hypomagnesemia SNOMED Code(s): 590055139 Code(s): E83.42 - HYPOMAGNESEMIA Status: Acute Current Visit: No - Problem List Review Problem List Initiated/Reviewed/Updated: Yes - My Orders Last 24 Hours: My Active Orders 07/20/19 21:14 Resuscitation Status Routine 07/20/19 22:00 Patient Status [ADT] Routine Antiembolic Devices [RC] .Routine Height and Weight [RC] DAILY Intake and Output [RC] QSHIFT Notify Provider Consults [RC] ASDIRECTED Notify Provider Vital Signs [RC] ASDIRECTED Oxygen Therapy [RC] .PRN RT Aerosol Therapy [RC] ASDIRECTED Up With Assistance [RC] ASDIRECTED VTE/DVT Education [RC] Per Unit Routine Vital Signs [RC] Q4H Consult to Physician [CONS] Routine Acetaminophen [Tylenol] 650 mg PO Q4H PRN Albuterol [Proventil Neb Soln] 2.5 mg NEB Q4H PRN Dextrose 5%-Lactated Ringers 1,000 ml IV ASDIRECTED Docusate Sodium/Sennosides [Senna Plus] 1 tab PO BID PRN HYDROmorphone [Dilaudid] 1 mg IVPUSH Q2H PRN LORazepam [Ativan] 0.5 mg IVPUSH Q4H PRN Magnesium Hydroxide [Milk of Magnesia] 30 ml PO Q12H PRN Meropenem [Merrem] 1 gm Sodium Chloride 0.9% [Normal Saline] 100 ml IV Q8H Ondansetron [Zofran ODT] 4 mg PO Q6H PRN Ondansetron [Zofran] 4 mg IV Q6H PRN Pantoprazole [ProTONIX IV] 40 mg IV Q24H Sequential Compression Device [OM.PC] Routine 07/21/19 05:00 Abdomen 2V AP Flat Upright [CR] DAILY 07/21/19 09:00 DULoxetine [Cymbalta] 60 mg PO DAILY Lactobacillus Rhamnosus GG [Culturelle] 1 cap PO BID 07/22/19 21:00 Imipramine HCl 200 mg PO BEDTIME - Plan Plan:: ASSESSMENT AND PLAN - Acute on chronic abdominal pain-exact cause not entirely clear at this point but there is concerned that there may be a problem with the ileostomy site or potentially some bowel that is at risk with borderline ischemia. Surgical intervention is planned but will be delayed because of her hemoglobin that is in the 9 range and no available blood because of her antibodies. -Continue IV fluids overnight -Pain and nausea management (FACTORY CLERK started this morning) -Flat and upright in the morning -Empiric antibiotics with meropenem since she has recently had antibiotics -Surgical consultation with Dr. Reno Gram-negative bacteremia-cultures from the port site are growing gram-negative rods. Unclear if this bacteremia is related to the abdominal issue or if she has a potential port infection. -Follow-up cultures -Repeat blood cultures from the port in the morning -Continue meropenem History of inflammatory bowel disease/Crohn's disease-previous colectomy and ileostomy formation. Concern for malfunctioning ileostomy as discussed above. Chronic hypomagnesemia-receives regular infusions of magnesium at the infusion center. Maintenance issues - - DVT prophylaxis -mechanical with possible surgery - GI prophylaxis -IV PPI - Nutrition -clear liquids today, nothing by mouth after midnight - Law catheter -not indicated at this time Disposition -I would anticipate discharge home after the hospital stay Primary care physician -Dr. Lisa Pedersen M.D.
[2019-07-21] MEDS ORDERED: hydrOXYzine HCL 100 MG/2 ML SDV IM ONE (14:22)
[2019-07-21] MEDS: HYDROmorphone/Normal Saline 15 MG/30 ML PCA IV SCH (17:43)
[2019-07-21] MEDS: Pantoprazole 40 MG Vial IV SCH (22:33)
[2019-07-22] MEDS: Magnesium Sulfate/Water 2 GM in Premix Bag 1 BAG IV SCH ×3 (03:08→19:11)
[2019-07-22] MEDS: HYDROmorphone/Normal Saline 15 MG/30 ML PCA IV SCH ×2 (05:11→20:19)
[2019-07-22] MEDS: Meropenem 1 GM in Sodium Chloride 0.9% 100 ML IV SCH ×2 (05:13→19:11)
[2019-07-22] MEDS: LORazepam 2 MG/ML SDV IVPUSH PRN (06:11)
[2019-07-22] MEDS ORDERED: Meropenem 500 MG SDV ONE ×2 (06:44→10:46)
[2019-07-22] MEDS ORDERED: Lidocaine 1% with EPINEPHrine 1:100,000 50 ML MDV ONE (06:45)
[2019-07-22] MEDS ORDERED: Bupivacaine 0.5% 50 ML MDV ONE (06:45)
[2019-07-22] MEDS ORDERED: LORazepam 2 MG/ML SDV IVPUSH PRN (06:57)
[2019-07-22] MEDS ORDERED: Ondansetron 4 MG/2 ML SDV ONE (07:08)
[2019-07-22] MEDS ORDERED: Neostigmine Methylsulfate 1 MG/ML 5 ML Syringe ONE (07:08)
[2019-07-22] MEDS ORDERED: Succinylcholine 200 MG/10 ML MDV ONE (07:08)
[2019-07-22] MEDS ORDERED: fentaNYL 250 MCG/5 ML SDV ONE ×3 (07:08→13:07)
[2019-07-22] MEDS ORDERED: Rocuronium 50 MG/5 ML Vial ONE ×2 (07:08→10:21)
[2019-07-22] MEDS ORDERED: Propofol 200 MG/20 ML SDV ONE (07:08)
[2019-07-22] MEDS ORDERED: Glycopyrrolate 0.2 MG/ML 5 ML MDV ONE (07:08)
[2019-07-22] MEDS ORDERED: Dexamethasone 4 MG/ML SDV ONE (07:08)
--- NOTE | 2019-07-22 07:58 | PN ---
DATE OF SERVICE: 07/22/2019 SUBJECTIVE: Aline is n.p.o. She will be having surgery today. Vital signs have been stable. She has been afebrile. Oral intake for the past 24 hours, she has been n.p.o. since midnight, 200, and urine output 650. Labs this morning, white count 2.3, hemoglobin 7.8, platelets 96. She reports that her main concern is she is very anxious about surgery. REVIEW OF SYSTEMS: Remainder of review of systems negative for any pertinent positives and negatives. OBJECTIVE: GENERAL: Aline Foley is a pleasant 58-year-old female. VITAL SIGNS: TPR is 96.3, 78, 15, blood pressure 91/52. HEENT: Negative. NECK: Supple. HEART: Regular rate and rhythm. LUNGS: Clear. ABDOMEN: Ileostomy on left mid abdomen. Dr. Shamar Reno marked placement if necessary on the right side for ileostomy, pending what he finds when he does surgery. EXTREMITIES: Without peripheral edema. ASSESSMENT: 1. Partial small bowel obstruction. 2. Abdominal pain. 3. Crohn disease. 4. History of ileostomy. PLAN: 1. Ativan 0.5 mg IV q. hourly p.r.n. anxiety. 2. Orders to be written postoperatively. 3. We will evaluate p.r.n. or in a.m. Aline Landeros PA-C /[id number]
[2019-07-22] MEDS ORDERED: Sodium Chloride 0.9% 10 ML ONE (10:46)
--- NOTE | 2019-07-22 10:46 | CR ---
Abdomen 2V AP Flat Upright CLINICAL HISTORY: Abdominal pain FINDINGS: No free air is identified. Small intestinal configuration is nonacute. There is been previous abdominal surgery. There is contrast in the bladder from previous CT. IMPRESSION: Nonacute intestinal gas pattern Previous abdominal surgery
[2019-07-22] MEDS ORDERED: Ketamine 50 MG in Sodium Chloride 0.9% 49.5 ML IV SCH (11:00)
[2019-07-22] MEDS ORDERED: Ketamine 500 MG/5 ML MDV IV SCH (11:00)
[2019-07-22] MEDS ORDERED: Sodium Chloride 0.9% 500 ML ONE (12:35)
[2019-07-22] MEDS ORDERED: Lactated Ringers 1,000 ML ONE ×2 (12:35)
[2019-07-22] MEDS: Lactobacillus Rhamnosus GG (Probiotic) Cap PO SCH (13:11)
[2019-07-22] MEDS: DULoxetine 30 MG Cap PO SCH (13:11)
[2019-07-22] MEDS ORDERED: Labetalol 20 MG/4 ML Syringe ONE (13:25)
[2019-07-22] MEDS ORDERED: Mupirocin Oint 22 GM Tube TOP SCH (14:30)
[2019-07-22] MEDS ORDERED: Hydrogen Peroxide 3% Top Soln 240 ML Bottle ONE (14:59)
[2019-07-22] MEDS ORDERED: hydrOXYzine HCL 100 MG/2 ML SDV IM ONE (15:21)
[2019-07-22] MEDS: hydrOXYzine HCL 100 MG/2 ML SDV IM PRN (15:24)
[2019-07-22] MEDS ORDERED: Albuterol/Ipratropium 3.0-0.5 MG/3 ML Neb Soln INH PRN (16:13)
[2019-07-22] MEDS ORDERED: Ondansetron 4 MG/2 ML SDV IV PRN (16:13)
[2019-07-22] MEDS: MVI, Adult with Vitamin K 10 ML, Chromium/Copper/Mang/Selen/Zn 1 ML in Dextrose 5%-Lact... IV SCH ×3 (17:04)
[2019-07-22] MEDS: Meropenem 500 MG in Sodium Chloride 0.9% 50 ML IV SCH ×2 (17:08→22:12)
[2019-07-22] MEDS: Mupirocin Oint 22 GM Tube TOP SCH (17:09)
[2019-07-22] MEDS: Albuterol/Ipratropium 3.0-0.5 MG/3 ML Neb Soln INH SCH (20:22)
[2019-07-22] MEDS: Pantoprazole 40 MG Vial IV SCH (22:10)
[2019-07-22] MEDS: Dextrose 5%-Lactated Ringers 1,000 ML IV SCH (22:55)
[2019-07-23] MEDS: Dextrose 5%-Lactated Ringers 1,000 ML IV SCH (04:01)
[2019-07-23] MEDS: Meropenem 500 MG in Sodium Chloride 0.9% 50 ML IV SCH ×4 (04:02→22:20)
[2019-07-23] MEDS: HYDROmorphone/Normal Saline 15 MG/30 ML PCA IV SCH ×3 (06:35→21:23)
[2019-07-23] MEDS: Albuterol/Ipratropium 3.0-0.5 MG/3 ML Neb Soln INH SCH ×4 (06:59→21:26)
[2019-07-23] MEDS ORDERED: Dextrose 5%-Lactated Ringers 1,000 ML IV SCH (07:00)
[2019-07-23] MEDS: Potassium Phos in 0.9 % NaCl 15 MMOL in Premix Bag 1 BAG IV SCH ×6 (08:35→17:12)
[2019-07-23] MEDS: Mupirocin Oint 22 GM Tube TOP SCH (08:37)
--- NOTE | 2019-07-23 08:52 | PN ---
DATE OF SERVICE: 07/23/2019 SUBJECTIVE: Aline is postoperative day 1. She has been afebrile. Up, ambulated and sat in the chair for a few minutes. Hemoglobin 8.8. Phosphorus is 2. Vital signs have been stable. Afebrile. Oral intake is zero. Ileostomy put out zero. Law catheter's output was 1668. [place] drains put out 180 and 120 respectively of a dark red drainage. REVIEW OF SYSTEMS: Remainder of review of systems negative for any pertinent positives and negatives. LABORATORY DATA: Lab this morning, hemoglobin 8.8. Phosphorus is 2.0. Platelets 125,000. OBJECTIVE: GENERAL: Aline is a pleasant 58-year-old female. She is alert. VITAL SIGNS: TPR is 97.7, 86, 16. Blood pressure 115/44. HEENT: Negative. NECK: Supple. HEART: Regular rate and rhythm. LUNGS: Clear. ABDOMEN: Dressings dry and intact. Ileostomy stoma was examined by Shamar Reno MD, and looked good. Abdominal binder has been on. EXTREMITIES: Without peripheral edema. SCDs are on. ASSESSMENT: 1. Exploratory laparotomy with: a. Revision of ileostomy. b. Drainage of paraileostomy abscess. c. Small bowel resection. d. Small bowel stricturoplasty. e. Placement of Interceed mesh x2 for paraileostomy inflammation and focal abscess. 2. Severe abdominal and pelvic adhesions. 3. Focal small bowel stricture. 4. Incarcerated paracolostomy hernia. 5. Non-incarcerated incisional hernia. Date of surgery: 07/22/2019. Surgeon: Shamar Reno MD. PLAN: 1. Give 1 unit of blood today. 2. Give 1 unit of blood tomorrow, 07/24/2019. 3. Leave Law catheter in due to bladder resection and accurate output. 4. Check CBC, CMP, mag, phos and BNP in a.m. 5. Decrease IV to 100 mL per hour. 6. K-Phos 45 millimoles IV 1 time today. 7. Schedule and have consent signed for delayed primary closure, IV local and TAP block on , 07/25/2019 at 0715. Surgeon, Shamar Reno MD, n.p.o. after midnight. 8. IV Dilaudid FACILITIES MAINTENANCE ENGINEER increased to 0.5 mg. 9. Continue using incentive spirometer and ambulation. 10.We will evaluate p.r.n. or in a.m. Aline Landeros PA-C /[id number]
--- NOTE | 2019-07-23 11:42 | PCM.PN ---
- General Info Date of Service: 07/23/19 Subjective Update: Ms. Foley is status post exploratory laparotomy performed by Dr. Reno yesterday. There was inflammation and possible developing abscess near the ostomy which is likely source of her bacteremia and recurrent fevers. She has been stable since surgery, afebrile with good vital signs. Functional Status: Reports: Ambulating - Review of Systems General: Reports: Weakness. Denies: Fever, Chills Pulmonary: Reports: No Symptoms Cardiovascular: Reports: No Symptoms Gastrointestinal: Reports: Abdominal Pain. Denies: Difficulty Swallowing, Flatus, Nausea, Vomiting - Patient Data Vitals - Most Recent: Last Vital Signs Temp 98.0 F 07/23/19 11:18 Pulse 94 07/23/19 11:18 Resp 16 07/23/19 11:18 BP 120/48 L 07/23/19 11:18 Pulse Ox 95 07/23/19 11:00 Weight - Most Recent: 181 lb 7.047 oz I&O - Last 24 Hours: Intake & Output 07/22/19 07/23/19 07/23/19 22:59 06:59 14:59 Intake Total 663 1848 0 Output Total 828 1565 200 Balance -165 283 -200 Lab Results Last 24 Hours: Laboratory Results - last 24 hr 07/21/19 07/22/19 07/22/19 Range/Units 06:45 16:13 16:14 WBC (4.5-11.0) K/uL RBC (3.30-5.50) M/uL Hgb (12.0-15.0) g/dL Hct (36.0-48.0) % MCV (80-98) fL MCH (27-31) pg MCHC (32-36) % Plt Count (150-400) K/uL Sodium (140-148) mmol/L Potassium (3.6-5.2) mmol/L Chloride (100-108) mmol/L Carbon Dioxide (21-32) mmol/L Anion Gap (5.0-14.0) mmol/L BUN (7-18) mg/dL Creatinine (0.6-1.0) mg/dL Est Cr Clr Drug Dosing mL/min Estimated GFR (MDRD) (>60) Glucose (74-106) mg/dL Calcium (8.5-10.1) mg/dL Phosphorus (2.5-4.9) mg/dL Magnesium (1.8-2.4) mg/dL Ferritin 835 H (8-388) ng/ml Total Bilirubin (0.2-1.0) mg/dL AST (15-37) U/L ALT (12-78) U/L Alkaline Phosphatase (46-116) U/L Total Protein (6.4-8.2) g/dL Albumin (3.4-5.0) g/dL Globulin (2.3-3.5) g/dL Albumin/Globulin Ratio (1.2-2.2) Vitamin B12 392 (193-986) pg/ml Blood Type A POSITIVE Gel Antibody Screen Positive A* Antibody Identification Anti-K Crossmatch See Detail 07/23/19 07/23/19 Range/Units 04:15 04:15 WBC 4.2 L (4.5-11.0) K/uL RBC 3.03 L (3.30-5.50) M/uL Hgb 8.8 L (12.0-15.0) g/dL Hct 27.9 L (36.0-48.0) % MCV 92 (80-98) fL MCH 29 (27-31) pg MCHC 32 (32-36) % Plt Count 125 L (150-400) K/uL Sodium 137 L (140-148) mmol/L Potassium 4.5 (3.6-5.2) mmol/L Chloride 104 (100-108) mmol/L Carbon Dioxide 27 (21-32) mmol/L Anion Gap 10.5 (5.0-14.0) mmol/L BUN 8 (7-18) mg/dL Creatinine 0.9 (0.6-1.0) mg/dL Est Cr Clr Drug Dosing 65.28 mL/min Estimated GFR (MDRD) > 60 (>60) Glucose 160 H (74-106) mg/dL Calcium 8.2 L (8.5-10.1) mg/dL Phosphorus 2.0 L (2.5-4.9) mg/dL Magnesium 1.8 D (1.8-2.4) mg/dL Ferritin (8-388) ng/ml Total Bilirubin 0.6 (0.2-1.0) mg/dL AST 19 (15-37) U/L ALT 17 (12-78) U/L Alkaline Phosphatase 75 (46-116) U/L Total Protein 5.2 L (6.4-8.2) g/dL Albumin 2.4 L (3.4-5.0) g/dL Globulin 2.8 (2.3-3.5) g/dL Albumin/Globulin Ratio 0.9 L (1.2-2.2) Vitamin B12 (193-986) pg/ml Blood Type Gel Antibody Screen Antibody Identification Crossmatch Eliud Results Last 24 Hours: Microbiology 07/20/19 18:15 Aerobic Blood Culture - Final Blood - Port-A-Cath Klebsiella Pneumonia Ss Pneumo Anaerobic Blood Culture - Preliminary Gram Positive Cocci Med Orders - Current: Current Medications Albuterol/Ipratropium (Duoneb 3.0-0.5 Mg/3 Ml) 3 ml INH QIDRT [facility] Last Admin: 07/23/19 10:45 Dose: 3 ml Albuterol/Ipratropium (Duoneb 3.0-0.5 Mg/3 Ml) 3 ml INH ASDIRECTED PRN PRN Reason: Shortness of Breath Ropivacaine 41 ml/Dexamethasone 8 mg/Epinephrine HCl 0.4 mg/ Sodium Chloride 36.6 ml 0 ml NERVRT ASDIRECTED [facility] Heparin Sodium (Porcine) (Heparin Lock Flush 100 Units/Ml) 500 units FLUSH ASDIRECTED PRN PRN Reason: Keep Vein Open Hydromorphone HCl (Dilaudid [employer] 15 Mg In Ns 30 Ml) 15 mg IV ASDIRECTED [facility]; Protocol Last Admin: 07/23/19 06:35 Dose: 15 mg Hydroxyzine HCl (Vistaril) 100 mg IM Q4H PRN PRN Reason: Pain Last Admin: 07/22/19 15:24 Dose: 100 mg Multivitamins/Minerals 10 ml/Chromium/Copper/Manganese/Seleni/Zn 1 ml/ Dextrose/ Lactated Ringer's 1,011 mls @ 100 mls/hr IV DAILY@1600 [facility] Last Admin: 07/22/19 17:04 Dose: 200 mls/hr Meropenem 500 mg/ Sodium (Chloride) 50 mls @ 100 mls/hr IV Q6H [facility] Last Admin: 07/23/19 04:02 Dose: 100 mls/hr Dextrose/Lactated Ringer's (Dextrose 5%-Lactated Ringers) 1,000 mls @ 100 mls/ hr IV ASDIRECTED [facility] Potassium Phosphate 15 mmol/ (Premix) 250 mls @ 84 mls/hr IV Q3H [facility] Stop: 07/23/19 17:59 Last Admin: 07/23/19 08:35 Dose: 84 mls/hr Lorazepam (Ativan) 0.5 mg IV Q2H PRN PRN Reason: ANXIETY Mupirocin (Bactroban Oint) 0 gm TOP DAILY [facility] Last Admin: 07/23/19 08:37 Dose: Not Given Naloxone HCl (Narcan) 0.1 mg IV ASDIRECTED PRN PRN Reason: decreased respiratory rate Non-Formulary Medication (Tap Block, Pharmacy To Dose) 0 ml NERVRT ONETIME ONE Stop: 07/25/19 07:16 Ondansetron HCl (Zofran) 4 mg IV Q4H PRN PRN Reason: Nausea/Vomiting Pantoprazole Sodium (Protonix Iv) 40 mg IV Q24H [facility] Last Admin: 07/22/19 22:10 Dose: 40 mg Sodium Chloride (Saline Flush) 10 ml FLUSH ASDIRECTED PRN PRN Reason: Keep Vein Open Last Admin: 07/20/19 19:36 Dose: 10 ml Discontinued Medications Acetaminophen (Tylenol) 650 mg PO Q4H PRN PRN Reason: Pain (Mild 1-3)/fever Albuterol (Proventil Neb Soln) 2.5 mg NEB Q4H PRN PRN Reason: Shortness Of Breath/wheezing Albuterol/Ipratropium (Duoneb 3.0-0.5 Mg/3 Ml) 3 ml INH PREPRO [facility] Stop: 07/21/19 11:01 Bupivacaine HCl (Marcaine 0.5%) Confirm Administered Dose 50 ml .ROUTE .STK-MED ONE Stop: 07/22/19 06:46 Ropivacaine 41 ml/Dexamethasone 8 mg/Epinephrine HCl 0.4 mg/ Sodium Chloride 36.6 ml 0 ml NERVRT ASDIRECTED [facility] Last Admin: 07/22/19 13:54 Dose: 80 syringe Dexamethasone (Dexamethasone) Confirm Administered Dose 4 mg .ROUTE .STK-MED ONE Stop: 07/22/19 07:09 Dicyclomine HCl (Bentyl) 20 mg IM ONETIME ONE Stop: 07/20/19 20:36 Last Admin: 07/20/19 22:05 Dose: Not Given Dicyclomine HCl (Bentyl) 20 mg IM ONETIME ONE Stop: 07/20/19 21:33 Last Admin: 07/20/19 21:38 Dose: 20 mg Duloxetine HCl (Cymbalta) 60 mg PO DAILY [facility] Last Admin: 07/22/19 13:11 Dose: Not Given Fentanyl (Sublimaze) Confirm Administered Dose 250 mcg .ROUTE .STK-MED ONE Stop: 07/22/19 07:09 Fentanyl (Sublimaze) Confirm Administered Dose 250 mcg .ROUTE .STK-MED ONE Stop: 07/22/19 10:49 Fentanyl (Sublimaze) Confirm Administered Dose 250 mcg .ROUTE .STK-MED ONE Stop: 07/22/19 13:08 Glycopyrrolate (Robinul) Confirm Administered Dose 1 mg .ROUTE .STK-MED ONE Stop: 07/22/19 07:09 Heparin Sodium (Porcine) (Heparin Lock Flush 100 Units/Ml) Confirm Administered Dose 500 units .ROUTE .STK-MED ONE Stop: 07/23/19 05:34 Last Admin: 07/23/19 05:33 Dose: 500 units Hydrogen Peroxide (Proxacol 3%) Confirm Administered Dose 240 ml .ROUTE .STK- MED ONE Stop: 07/22/19 15:00 Hydromorphone HCl (Dilaudid) 0.5 mg IVPUSH ONETIME ONE Stop: 07/20/19 18:04 Last Admin: 07/20/19 18:23 Dose: 0.5 mg Hydromorphone HCl (Dilaudid) 0.5 mg IVPUSH ONETIME ONE Stop: 07/20/19 19:12 Last Admin: 07/20/19 19:17 Dose: 0.5 mg Hydromorphone HCl (Dilaudid) 1 mg IVPUSH ONETIME ONE Stop: 07/20/19 21:12 Last Admin: 07/20/19 21:28 Dose: 1 mg Hydromorphone HCl (Dilaudid) 1 mg IVPUSH Q2H PRN PRN Reason: Pain Last Admin: 07/21/19 06:09 Dose: 1 mg Hydromorphone HCl (Dilaudid [employer] 15 Mg In Ns 30 Ml) 0 mg IV ASDIRECTED PRN; Protocol 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 Last Admin: 07/21/19 09:18 Dose: 15 mg Hydroxyzine HCl (Vistaril) 100 mg IM ONETIME ONE Stop: 07/21/19 14:23 Last Admin: 07/21/19 14:56 Dose: 100 mg Hydroxyzine HCl (Vistaril) 100 mg IM ONETIME ONE Stop: 07/22/19 15:22 Last Admin: 07/22/19 15:41 Dose: Not Given Lactated Ringer's (Ringers, Lactated) 1,000 mls @ 1,000 mls/hr IV BOLUS ONE Stop: 07/20/19 19:16 Last Admin: 07/20/19 18:29 Dose: 1,000 mls/hr Sodium Chloride (Normal Saline) 80 mls @ 3 mls/sec IV ASDIRECTED [facility] Last Admin: 07/20/19 19:37 Dose: 3 mls/sec Dextrose/Lactated Ringer's (Dextrose 5%-Lactated Ringers) 1,000 mls @ 100 mls/ hr IV ASDIRECTED [facility] Last Admin: 07/21/19 20:50 Dose: 100 mls/hr Meropenem 1 gm/ Sodium (Chloride) 100 mls @ 200 mls/hr IV Q8H [facility] Last Admin: 07/21/19 05:30 Dose: 200 mls/hr Magnesium Sulfate 2 gm/ Premix 50 mls @ 25 mls/hr IV Q6H [facility] Stop: 07/24/19 05:59 Last Admin: 07/22/19 19:11 Dose: Not Given Ketamine HCl 50 mg/ Sodium (Chloride) 50 mls @ 18.6 mls/hr IV ASDIRECTED [facility] Meropenem 1 gm/ Sodium (Chloride) 100 mls @ 200 mls/hr IV Q8H [facility] Last Admin: 07/22/19 19:11 Dose: Not Given Sodium Chloride (Normal Saline) Confirm Administered Dose 10 mls @ as directed .ROUTE .STK-MED ONE Stop: 07/22/19 10:47 Lactated Ringer's (Ringers, Lactated) Confirm Administered Dose 1,000 mls @ as directed .ROUTE .STK-MED ONE Stop: 07/22/19 12:36 Sodium Chloride (Normal Saline) Confirm Administered Dose 500 mls @ as directed .ROUTE .STK-MED ONE Stop: 07/22/19 12:36 Lactated Ringer's (Ringers, Lactated) Confirm Administered Dose 1,000 mls @ as directed .ROUTE .STK-MED ONE Stop: 07/22/19 12:36 Dextrose/Lactated Ringer's (Dextrose 5%-Lactated Ringers) 1,000 mls @ 200 mls/ hr IV ASDIRECTED [facility] Last Admin: 07/23/19 04:01 Dose: 200 mls/hr Imipramine HCl (Imipramine Hcl) 200 mg PO BEDTIME [facility] Last Admin: 07/20/19 22:40 Dose: Not Given Imipramine HCl (Imipramine Hcl) 200 mg PO BEDTIME [facility] Iopamidol (Isovue-300 (61%)) 100 ml IV . DIRECTED [facility] Last Admin: 07/20/19 19:37 Dose: 100 ml Ketamine HCl (Ketalar) 31 mg IV ASDIRECTED [facility] Labetalol HCl (Normodyne) Confirm Administered Dose 20 mg .ROUTE .STK-MED ONE Stop: 07/22/19 13:26 Lactobacillus Rhamnosus (Culturelle) 1 cap PO BID [facility] Last Admin: 07/22/19 13:11 Dose: Not Given Lidocaine/Epinephrine (Xylocaine 1% With Epinephrine 1:100,000) Confirm Administered Dose 50 ml .ROUTE .STK-MED ONE Stop: 07/22/19 06:46 Lorazepam (Ativan) 0.5 mg IVPUSH Q4H PRN PRN Reason: Nausea/Vomiting Last Admin: 07/22/19 06:11 Dose: 0.5 mg Lorazepam (Ativan) 0.5 mg IVPUSH Q1H PRN PRN Reason: Nausea/Vomiting Last Admin: 07/22/19 08:18 Dose: 0.5 mg Magnesium Hydroxide (Milk Of Magnesia) 30 ml PO Q12H PRN PRN Reason: Constipation Meropenem (Merrem) Confirm Administered Dose 500 mg .ROUTE .STK-MED ONE Stop: 07/22/19 06:45 Last Admin: 07/22/19 09:37 Dose: 500 mg Meropenem (Merrem) Confirm Administered Dose 500 mg .ROUTE .STK-MED ONE Stop: 07/22/19 10:47 Neostigmine Methylsulfate (Neostigmine) Confirm Administered Dose 5 mg .ROUTE .STK-MED ONE Stop: 07/22/19 07:09 Ondansetron HCl (Zofran Odt) 4 mg PO Q6H PRN PRN Reason: Nausea able to take PO Ondansetron HCl (Zofran) 4 mg IV Q6H PRN PRN Reason: Nausea/Vomiting Ondansetron HCl (Zofran) Confirm Administered Dose 4 mg .ROUTE .STK-MED ONE Stop: 07/22/19 07:09 Propofol (Diprivan 20 Ml) Confirm Administered Dose 200 mg .ROUTE .STK-MED ONE Stop: 07/22/19 07:09 Rocuronium [place] (Zemuron) Confirm Administered Dose 50 mg .ROUTE .STK-MED ONE Stop: 07/22/19 07:09 Rocuronium [place] (Zemuron) Confirm Administered Dose 50 mg .ROUTE .STK-MED ONE Stop: 07/22/19 10:22 Senna/Docusate Sodium (Senna Plus) 1 tab PO BID PRN PRN Reason: Constipation Succinylcholine Chloride (Quelicin) Confirm Administered Dose 200 mg .ROUTE .STK -MED ONE Stop: 07/22/19 07:09 - Exam Quality Assessment: DVT Prophylaxis General: Alert, Oriented, Cooperative, Moderate Distress Lungs: Clear to Auscultation, Normal Respiratory Effort Cardiovascular: Regular Rate, Regular Rhythm, No Murmurs Extremities: Non-Tender, No Pedal Edema Sepsis Event Note - Evaluation Sepsis Screening Result: No Definite Risk - Focused Exam Vital Signs: Vital Signs Temp Temp Pulse Resp BP Pulse Ox 07/23/19 11:18 98.0 F 94 16 120/48 L 07/23/19 11:14 98.0 F 95 16 125/56 L 07/23/19 11:04 98.2 F 91 16 118/48 L 07/23/19 11:00 98.0 F 95 16 125/56 L 95 07/23/19 07:44 98.4 F 86 16 106/84 97 07/23/19 07:06 97 07/23/19 06:59 87 07/23/19 03:00 97.7 F 86 16 115/44 L 97 07/23/19 00:40 95 Date Exam was Performed: 07/23/19 Time Exam was Performed: 11:38 - Problem List Review Problem List Initiated/Reviewed/Updated: Yes - Plan Plan:: ASSESSMENT AND PLAN - Status post exploratory laparotomy-exact cause not entirely clear at this point but there is concerned that there may be a problem with the ileostomy site or potentially some bowel that is at risk with borderline ischemia. Surgical intervention is planned but will be delayed because of her hemoglobin that is in the 9 range and no available blood because of her antibodies. -Postoperative care per Dr. Reno Klebsiella bacteremia-likely source from the area of previous ileostomy -Continue meropenem History of inflammatory bowel disease/Crohn's disease-previous colectomy and ileostomy formation. Concern for malfunctioning ileostomy as discussed above. Chronic hypomagnesemia-receives regular infusions of magnesium at the infusion center. Maintenance issues - - DVT prophylaxis -mechanical with possible surgery - GI prophylaxis -IV PPI - Nutrition -clear liquids today, nothing by mouth after midnight - Law catheter -not indicated at this time Disposition -I would anticipate discharge home after the hospital stay Primary care physician -Dr. Lisa Gerber
[2019-07-23] MEDS: hydrOXYzine HCL 100 MG/2 ML SDV IM PRN ×3 (12:41→22:11)
[2019-07-23] MEDS: Cyclobenzaprine 10 MG Tab PO SCH ×2 (18:34→23:52)
--- NOTE | 2019-07-23 19:40 | PCM.SN ---
- Free Text/Narrative Note: O: 07/20/2019 blood cultures positive gram positive cocci and klebsiella pneumonia currently on IV antibiotics. A: positive blood culture P: retest Port a cath to rule out source. blood cultures x2 ordered. will await results.
[2019-07-23] MEDS: MVI, Adult with Vitamin K 10 ML, Chromium/Copper/Mang/Selen/Zn 1 ML in Dextrose 5%-Lact... IV SCH ×3 (21:26)
[2019-07-23] MEDS: Pantoprazole 40 MG Vial IV SCH (21:33)
[2019-07-23] MEDS: LORazepam 2 MG/ML SDV IV PRN (23:52)
[2019-07-24] MEDS: Meropenem 500 MG in Sodium Chloride 0.9% 50 ML IV SCH ×4 (04:16→23:31)
[2019-07-24] MEDS: Albuterol/Ipratropium 3.0-0.5 MG/3 ML Neb Soln INH SCH ×4 (07:28→21:20)
[2019-07-24] MEDS ORDERED: Dextrose 5%-Lactated Ringers 1,000 ML IV SCH (07:40)
[2019-07-24] MEDS: Cyclobenzaprine 10 MG Tab PO SCH ×3 (07:42→17:32)
--- NOTE | 2019-07-24 08:49 | PN ---
DATE OF SERVICE: 07/24/2019 SUBJECTIVE: Aline has had difficulty with pain control. Flexeril was added as well as Vistaril IM. Vital signs have been stable. Temperature max 98.9. Oral intake 310. Urine output 2525 via Law catheter. NG was discontinued last evening. [place] drains have put out 25 and 110 respectively and the ileostomy bag has had no output. LABORATORY DATA: Today, hemoglobin is 8. She is already ordered to have 1 unit of packed red blood cells. REVIEW OF SYSTEMS: Remainder of review of systems negative for any pertinent positives and negatives. OBJECTIVE: GENERAL: Aline Foley is a 58-year-old female. She is alert and orientated. VITAL SIGNS: TPR at 07:44, 97.4; 87; 18; blood pressure 131/50. HEENT: Negative. NECK: Supple. HEART: Regular rate and rhythm. LUNGS: Clear. ABDOMEN: Dressings dry and intact. Ileostomy bag negative. EXTREMITIES: Without peripheral edema. SCDs are on. ASSESSMENT: Exploratory laparotomy with: 1. Revision of ileostomy. 2. Drainage of jae-ileostomy abscess. 3. Small bowel resection. 4. Small bowel strictureplasty. 5. Placement of Interceed mesh x2 for jae-ileostomy inflammation and focal abscess. POSTOPERATIVE DIAGNOSES: 1. Severe abdominal pelvic adhesion. 2. Focal small-bowel stricture. 3. Incarcerated pericolostomy hernia. 4. Non incarcerated incisional hernia. 5. Date of surgery: 07/22/2019. Surgeon: Shamar Reno MD. PLAN: 1. Decrease IV to 75 mL per hour. 2. Check CBC, CMP, phos, and BNP in a.m. 3. Magnesium 2 g IV q.6 hours x72 hours. 4. N.p.o. after midnight for delayed primary closure. 5. Evaluate p.r.n. or in a.m. Aline Landeros PA-C /[id number]
[2019-07-24] MEDS: Mupirocin Oint 22 GM Tube TOP SCH (09:09)
[2019-07-24] MEDS: HYDROmorphone/Normal Saline 15 MG/30 ML PCA IV SCH ×2 (09:41→17:39)
[2019-07-24] MEDS: Magnesium Sulfate/Water 2 GM in Premix Bag 1 BAG IV SCH ×3 (09:46→21:20)
[2019-07-24] MEDS: hydrOXYzine HCL 100 MG/2 ML SDV IM PRN ×3 (10:39→21:21)
--- NOTE | 2019-07-24 12:21 | PCM.PN ---
- General Info Date of Service: 07/24/19 Subjective Update: Ms. Folye is experiencing more incisional pain today than she had had yesterday. Vital signs have remained stable and she has been afebrile. Plan is for delayed primary closure of incision tomorrow. Functional Status: Reports: Ambulating - Review of Systems General: Reports: Weakness, Fatigue. Denies: Fever, Chills Pulmonary: Reports: No Symptoms Cardiovascular: Reports: No Symptoms Gastrointestinal: Reports: Abdominal Pain. Denies: Difficulty Swallowing, Flatus, Nausea, Vomiting - Patient Data Vitals - Most Recent: Last Vital Signs Temp 98.1 F 07/24/19 11:00 Pulse 97 07/24/19 11:00 Resp 14 07/24/19 11:00 BP 111/47 L 07/24/19 11:00 Pulse Ox 91 L 07/24/19 12:04 Weight - Most Recent: 181 lb 7.047 oz I&O - Last 24 Hours: Intake & Output 07/23/19 07/24/19 07/24/19 22:59 06:59 14:59 Intake Total 1167 1096 425 Output Total 460 1280 1620 Balance 207 -251 -5948 Lab Results Last 24 Hours: Laboratory Results - last 24 hr 07/21/19 07/24/19 07/24/19 Range/Units 06:45 04:13 04:13 WBC 2.2 L (4.5-11.0) K/uL RBC 2.79 L (3.30-5.50) M/uL Hgb 8.0 L (12.0-15.0) g/dL Hct 26.3 L (36.0-48.0) % MCV 94 (80-98) fL MCH 29 (27-31) pg MCHC 30 L (32-36) % Plt Count 86 L (150-400) K/uL Sodium 141 (140-148) mmol/L Potassium 3.7 (3.6-5.2) mmol/L Chloride 106 (100-108) mmol/L Carbon Dioxide 29 (21-32) mmol/L Anion Gap 5.6 (5.0-14.0) mmol/L BUN 5 L (7-18) mg/dL Creatinine 0.8 (0.6-1.0) mg/dL Est Cr Clr Drug Dosing 73.44 mL/min Estimated GFR (MDRD) > 60 (>60) Glucose 109 H (74-106) mg/dL Calcium 8.1 L (8.5-10.1) mg/dL Phosphorus 3.2 (2.5-4.9) mg/dL Magnesium 1.6 L (1.8-2.4) mg/dL Total Bilirubin 0.4 (0.2-1.0) mg/dL AST 14 L (15-37) U/L ALT 15 (12-78) U/L Alkaline Phosphatase 66 (46-116) U/L NT-Pro-B Natriuret Pep 395 H (5-125) pg/mL Total Protein 5.0 L (6.4-8.2) g/dL Albumin 2.3 L (3.4-5.0) g/dL Globulin 2.7 (2.3-3.5) g/dL Albumin/Globulin Ratio 0.9 L (1.2-2.2) Blood Type A POSITIVE Gel Antibody Screen Positive A* Antibody Identification Anti-K Crossmatch See Detail Eliud Results Last 24 Hours: Microbiology 07/20/19 18:15 Aerobic Blood Culture - Final Blood - Port-A-Cath Klebsiella Pneumonia Ss Pneumo Anaerobic Blood Culture - Final Staphylococcus Epidermidis Med Orders - Current: Current Medications Albuterol/Ipratropium (Duoneb 3.0-0.5 Mg/3 Ml) 3 ml INH QIDRT [facility] Last Admin: 07/24/19 10:45 Dose: 3 ml Albuterol/Ipratropium (Duoneb 3.0-0.5 Mg/3 Ml) 3 ml INH ASDIRECTED PRN PRN Reason: Shortness of Breath Ropivacaine 41 ml/Dexamethasone 8 mg/Epinephrine HCl 0.4 mg/ Sodium Chloride 36.6 ml 0 ml NERVRT ASDIRECTED [facility] Cyclobenzaprine HCl (Flexeril) 10 mg PO Q6H [facility] Last Admin: 07/24/19 07:42 Dose: 10 mg Heparin Sodium (Porcine) (Heparin Lock Flush 100 Units/Ml) 500 units FLUSH ASDIRECTED PRN PRN Reason: Keep Vein Open Hydromorphone HCl (Dilaudid Horse Race Timer 15 Mg In Ns 30 Ml) 15 mg IV ASDIRECTED [facility]; Protocol Last Admin: 07/24/19 09:41 Dose: 15 mg Hydroxyzine HCl (Vistaril) 100 mg IM Q4H PRN PRN Reason: Pain Last Admin: 07/24/19 10:39 Dose: 100 mg Multivitamins/Minerals 10 ml/Chromium/Copper/Manganese/Seleni/Zn 1 ml/ Dextrose/ Lactated Ringer's 1,011 mls @ 75 mls/hr IV DAILY@1600 [facility] Last Admin: 07/23/19 21:26 Dose: 200 mls/hr Meropenem 500 mg/ Sodium (Chloride) 50 mls @ 100 mls/hr IV Q6H [facility] Last Admin: 07/24/19 04:16 Dose: 100 mls/hr Magnesium Sulfate 2 gm/ Premix 50 mls @ 25 mls/hr IV Q6H [facility] Stop: 07/27/19 05:59 Last Admin: 07/24/19 09:46 Dose: 25 mls/hr Dextrose/Lactated Ringer's (Dextrose 5%-Lactated Ringers) 1,000 mls @ 75 mls/ hr IV ASDIRECTED [facility] Lorazepam (Ativan) 0.5 mg IV Q2H PRN PRN Reason: ANXIETY Last Admin: 07/23/19 23:52 Dose: 0.5 mg Mupirocin (Bactroban Oint) 0 gm TOP DAILY [facility] Last Admin: 07/24/19 09:09 Dose: Not Given Naloxone HCl (Narcan) 0.1 mg IV ASDIRECTED PRN PRN Reason: decreased respiratory rate Non-Formulary Medication (Tap Block, Pharmacy To Dose) 0 ml NERVRT ONETIME ONE Stop: 07/25/19 07:16 Ondansetron HCl (Zofran) 4 mg IV Q4H PRN PRN Reason: Nausea/Vomiting Pantoprazole Sodium (Protonix Iv) 40 mg IV Q24H [facility] Last Admin: 07/23/19 21:33 Dose: 40 mg Sodium Chloride (Saline Flush) 10 ml FLUSH ASDIRECTED PRN PRN Reason: Keep Vein Open Last Admin: 07/20/19 19:36 Dose: 10 ml Discontinued Medications Acetaminophen (Tylenol) 650 mg PO Q4H PRN PRN Reason: Pain (Mild 1-3)/fever Albuterol (Proventil Neb Soln) 2.5 mg NEB Q4H PRN PRN Reason: Shortness Of Breath/wheezing Albuterol/Ipratropium (Duoneb 3.0-0.5 Mg/3 Ml) 3 ml INH PREPRO [facility] Stop: 07/21/19 11:01 Bupivacaine HCl (Marcaine 0.5%) Confirm Administered Dose 50 ml .ROUTE .STK-MED ONE Stop: 07/22/19 06:46 Ropivacaine 41 ml/Dexamethasone 8 mg/Epinephrine HCl 0.4 mg/ Sodium Chloride 36.6 ml 0 ml NERVRT ASDIRECTED [facility] Last Admin: 07/22/19 13:54 Dose: 80 syringe Dexamethasone (Dexamethasone) Confirm Administered Dose 4 mg .ROUTE .STK-MED ONE Stop: 07/22/19 07:09 Dicyclomine HCl (Bentyl) 20 mg IM ONETIME ONE Stop: 07/20/19 20:36 Last Admin: 07/20/19 22:05 Dose: Not Given Dicyclomine HCl (Bentyl) 20 mg IM ONETIME ONE Stop: 07/20/19 21:33 Last Admin: 07/20/19 21:38 Dose: 20 mg Duloxetine HCl (Cymbalta) 60 mg PO DAILY [facility] Last Admin: 07/22/19 13:11 Dose: Not Given Fentanyl (Sublimaze) Confirm Administered Dose 250 mcg .ROUTE .STK-MED ONE Stop: 07/22/19 07:09 Fentanyl (Sublimaze) Confirm Administered Dose 250 mcg .ROUTE .STK-MED ONE Stop: 07/22/19 10:49 Fentanyl (Sublimaze) Confirm Administered Dose 250 mcg .ROUTE .STK-MED ONE Stop: 07/22/19 13:08 Glycopyrrolate (Robinul) Confirm Administered Dose 1 mg .ROUTE .STK-MED ONE Stop: 07/22/19 07:09 Heparin Sodium (Porcine) (Heparin Lock Flush 100 Units/Ml) Confirm Administered Dose 500 units .ROUTE .STK-MED ONE Stop: 07/23/19 05:34 Last Admin: 07/23/19 05:33 Dose: 500 units Hydrogen Peroxide (Proxacol 3%) Confirm Administered Dose 240 ml .ROUTE .STK- MED ONE Stop: 07/22/19 15:00 Hydromorphone HCl (Dilaudid) 0.5 mg IVPUSH ONETIME ONE Stop: 07/20/19 18:04 Last Admin: 07/20/19 18:23 Dose: 0.5 mg Hydromorphone HCl (Dilaudid) 0.5 mg IVPUSH ONETIME ONE Stop: 07/20/19 19:12 Last Admin: 07/20/19 19:17 Dose: 0.5 mg Hydromorphone HCl (Dilaudid) 1 mg IVPUSH ONETIME ONE Stop: 07/20/19 21:12 Last Admin: 07/20/19 21:28 Dose: 1 mg Hydromorphone HCl (Dilaudid) 1 mg IVPUSH Q2H PRN PRN Reason: Pain Last Admin: 07/21/19 06:09 Dose: 1 mg Hydromorphone HCl (Dilaudid Horse Race Timer 15 Mg In Ns 30 Ml) 0 mg IV ASDIRECTED PRN; Protocol 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 Last Admin: 07/21/19 09:18 Dose: 15 mg Hydroxyzine HCl (Vistaril) 100 mg IM ONETIME ONE Stop: 07/21/19 14:23 Last Admin: 07/21/19 14:56 Dose: 100 mg Hydroxyzine HCl (Vistaril) 100 mg IM ONETIME ONE Stop: 07/22/19 15:22 Last Admin: 07/22/19 15:41 Dose: Not Given Lactated Ringer's (Ringers, Lactated) 1,000 mls @ 1,000 mls/hr IV BOLUS ONE Stop: 07/20/19 19:16 Last Admin: 07/20/19 18:29 Dose: 1,000 mls/hr Sodium Chloride (Normal Saline) 80 mls @ 3 mls/sec IV ASDIRECTED [facility] Last Admin: 07/20/19 19:37 Dose: 3 mls/sec Dextrose/Lactated Ringer's (Dextrose 5%-Lactated Ringers) 1,000 mls @ 100 mls/ hr IV ASDIRECTED [facility] Last Admin: 07/21/19 20:50 Dose: 100 mls/hr Meropenem 1 gm/ Sodium (Chloride) 100 mls @ 200 mls/hr IV Q8H [facility] Last Admin: 07/21/19 05:30 Dose: 200 mls/hr Magnesium Sulfate 2 gm/ Premix 50 mls @ 25 mls/hr IV Q6H [facility] Stop: 07/24/19 05:59 Last Admin: 07/22/19 19:11 Dose: Not Given Ketamine HCl 50 mg/ Sodium (Chloride) 50 mls @ 18.6 mls/hr IV ASDIRECTED [facility] Meropenem 1 gm/ Sodium (Chloride) 100 mls @ 200 mls/hr IV Q8H [facility] Last Admin: 07/22/19 19:11 Dose: Not Given Sodium Chloride (Normal Saline) Confirm Administered Dose 10 mls @ as directed .ROUTE .[facility] ONE Stop: 07/22/19 10:47 Lactated Ringer's (Ringers, Lactated) Confirm Administered Dose 1,000 mls @ as directed .ROUTE .[facility] ONE Stop: 07/22/19 12:36 Sodium Chloride (Normal Saline) Confirm Administered Dose 500 mls @ as directed .ROUTE .[facility] ONE Stop: 07/22/19 12:36 Lactated Ringer's (Ringers, Lactated) Confirm Administered Dose 1,000 mls @ as directed .ROUTE .[facility] ONE Stop: 07/22/19 12:36 Dextrose/Lactated Ringer's (Dextrose 5%-Lactated Ringers) 1,000 mls @ 200 mls/ hr IV ASDIRECTED [facility] Last Admin: 07/23/19 04:01 Dose: 200 mls/hr Dextrose/Lactated Ringer's (Dextrose 5%-Lactated Ringers) 1,000 mls @ 100 mls/ hr IV ASDIRECTED [facility] Potassium Phosphate 15 mmol/ (Premix) 250 mls @ 84 mls/hr IV Q3H [facility] Stop: 07/23/19 17:59 Last Admin: 07/23/19 17:12 Dose: 84 mls/hr Imipramine HCl (Imipramine Hcl) 200 mg PO BEDTIME [facility] Last Admin: 07/20/19 22:40 Dose: Not Given Imipramine HCl (Imipramine Hcl) 200 mg PO BEDTIME [facility] Iopamidol (Isovue-300 (61%)) 100 ml IV . DIRECTED [facility] Last Admin: 07/20/19 19:37 Dose: 100 ml Ketamine HCl (Ketalar) 31 mg IV ASDIRECTED [facility] Labetalol HCl (Normodyne) Confirm Administered Dose 20 mg .ROUTE .[facility] ONE Stop: 07/22/19 13:26 Lactobacillus Rhamnosus (Culturelle) 1 cap PO BID [facility] Last Admin: 07/22/19 13:11 Dose: Not Given Lidocaine/Epinephrine (Xylocaine 1% With Epinephrine 1:100,000) Confirm Administered Dose 50 ml .ROUTE .STK-MED ONE Stop: 07/22/19 06:46 Lorazepam (Ativan) 0.5 mg IVPUSH Q4H PRN PRN Reason: Nausea/Vomiting Last Admin: 07/22/19 06:11 Dose: 0.5 mg Lorazepam (Ativan) 0.5 mg IVPUSH Q1H PRN PRN Reason: Nausea/Vomiting Last Admin: 07/22/19 08:18 Dose: 0.5 mg Magnesium Hydroxide (Milk Of Magnesia) 30 ml PO Q12H PRN PRN Reason: Constipation Meropenem (Merrem) Confirm Administered Dose 500 mg .ROUTE .STK-MED ONE Stop: 07/22/19 06:45 Last Admin: 07/22/19 09:37 Dose: 500 mg Meropenem (Merrem) Confirm Administered Dose 500 mg .ROUTE .STK-MED ONE Stop: 07/22/19 10:47 Neostigmine Methylsulfate (Neostigmine) Confirm Administered Dose 5 mg .ROUTE .STK-MED ONE Stop: 07/22/19 07:09 Ondansetron HCl (Zofran Odt) 4 mg PO Q6H PRN PRN Reason: Nausea able to take PO Ondansetron HCl (Zofran) 4 mg IV Q6H PRN PRN Reason: Nausea/Vomiting Ondansetron HCl (Zofran) Confirm Administered Dose 4 mg .ROUTE .STK-MED ONE Stop: 07/22/19 07:09 Propofol (Diprivan 20 Ml) Confirm Administered Dose 200 mg .ROUTE .STK-MED ONE Stop: 07/22/19 07:09 Rocuronium [place] (Zemuron) Confirm Administered Dose 50 mg .ROUTE .STK-MED ONE Stop: 07/22/19 07:09 Rocuronium [place] (Zemuron) Confirm Administered Dose 50 mg .ROUTE .STK-MED ONE Stop: 07/22/19 10:22 Senna/Docusate Sodium (Senna Plus) 1 tab PO BID PRN PRN Reason: Constipation Succinylcholine Chloride (Quelicin) Confirm Administered Dose 200 mg .ROUTE .STK -MED ONE Stop: 07/22/19 07:09 - Exam General: Alert, Oriented, Cooperative, Moderate Distress Lungs: Clear to Auscultation, Normal Respiratory Effort Cardiovascular: Regular Rate, Regular Rhythm, No Murmurs Extremities: Non-Tender, No Pedal Edema Sepsis Event Note - Evaluation Sepsis Screening Result: No Definite Risk - Focused Exam Vital Signs: Vital Signs Temp Temp Pulse Resp BP Pulse Ox Pulse Ox 07/24/19 12:04 91 L 07/24/19 11:00 98.1 F 97 14 111/47 L 99 07/24/19 10:45 91 07/24/19 10:25 97.8 F 91 16 118/55 L 07/24/19 09:57 97.7 F 92 16 119/46 L 07/24/19 09:40 97.8 F 90 16 111/49 L 07/24/19 09:21 97.7 F 89 16 119/51 L 07/24/19 09:06 97.5 F 91 16 121/51 L 07/24/19 08:55 97.2 F 95 18 131/52 L 07/24/19 07:44 97.4 F 87 18 131/50 L 100 07/24/19 07:28 87 99 07/24/19 07:05 100 07/24/19 04:00 98.9 F 16 130/57 L 96 07/24/19 01:09 97 Pulse Ox 07/24/19 12:04 07/24/19 11:00 07/24/19 10:45 96 07/24/19 10:25 07/24/19 09:57 07/24/19 09:40 07/24/19 09:21 07/24/19 09:06 07/24/19 08:55 07/24/19 07:44 07/24/19 07:28 07/24/19 07:05 07/24/19 04:00 07/24/19 01:09 Date Exam was Performed: 07/24/19 Time Exam was Performed: 12:17 - Problem List Review Problem List Initiated/Reviewed/Updated: Yes - Plan Plan:: ASSESSMENT AND PLAN - Status post exploratory laparotomy -Postoperative care per Dr. Reno Klebsiella bacteremia-likely source from the area of previous ileostomy -Continue meropenem Pancytopenia-she will require further evaluation after she is recovered from surgery -Outpatient referral to hematology for probable bone marrow biopsy History of inflammatory bowel disease/Crohn's disease-previous colectomy and ileostomy formation. Concern for malfunctioning ileostomy as discussed above. Chronic hypomagnesemia-receives regular infusions of magnesium at the infusion center. Maintenance issues - - DVT prophylaxis -mechanical with possible surgery - GI prophylaxis -IV PPI - Nutrition -clear liquids today, nothing by mouth after midnight - Law catheter -not indicated at this time Disposition -I would anticipate discharge home after the hospital stay Primary care physician -Dr. Lisa Gerber
--- NOTE | 2019-07-24 13:19 | OR ---
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 POSTOPERATIVE DIAGNOSES: 1. Paraileostomy inflammation focal abscess. 2. Severe abdominal and pelvic adhesions. 3. Focal small bowel stricture. 4. Incarcerated paraileostomy hernia. 5. Incarcerated incisional hernia. OPERATIVE PROCEDURES: Exploratory laparotomy with: 1. Formation of new ileostomy (09694). 2. Drainage of paraileostomy abscess (56568). 3. Small bowel resection (24248). 4. Small bowel stricturoplasty (49364). 5. Repair of incarcerated paraileostomy hernia (40681). 6. Repair of non-incarcerated incisional hernia involving midline incision (47388). 7. Placement of Interceed mesh x2 to limit recurrent adhesion formation between pelvic and abdominal wall and underlying viscera (27084). ANESTHESIA: General. [employer]ACLE [employer] CONSULTANT: Aline Landeros PA-C INDICATIONS FOR PROCEDURE: This is a 58-year-old with very complex previous abdominal surgical history. She presents now with severe pain located at and lateral to her left lower quadrant ileostomy. There appeared to be no other obvious source causing this. There was some previous CT scans done in the last few days showing some bogginess of the small bowel as it entered the area of the ileostomy. Plan is to proceed with exploratory laparotomy, most likely revision of the ileostomy to a new location, and other procedures as indicated. Potential risks of the procedure including bleeding, infection, injury to underlying viscera, possibility of any complications with a new ileostomy, as well as possibility of cardiopulmonary, septic, or hemorrhagic complications leading to were discussed, and the patient wishes to proceed. DETAILS OF PROCEDURE: The patient was taken to the operating room and after general endotracheal anesthesia was induced, a Law catheter was inserted, and the abdomen prepped and draped. The previous midline incision from just above the umbilicus down toward the pubis was made and carried down through the full-thickness abdominal wall. What we then encountered were, over the next several hours, very severe dense adhesions with virtually no free planes of dissection, causing this to be up to a 6-hour operation due to the extensive adhesions. Eventually the adhesions were taken down between the small bowel and the abdominal wall toward the left, and the area around the ileostomy was encircled. The patient did have some incarcerated omentum within that hernia. As that was pulled down, there was some salas inflammatory appearing fluid. At that point, there had been some slight admixture with the ileostomy contents, and so cultures were not obtained, as they would certainly not be valid to any the extent. The ileostomy was eventually then taken down, and it was felt that this would be best repositioned, given the infection present. The attachments of the ileostomy were then freed up circumferentially. The actual end of the ileostomy was then stapled off with a MARY LOU stapler and the small bowel and the fat then mobilized into the peritoneal cavity. At that point, the ileostomy hernia site was then closed with an internal layer of #1 Vicryl stitch through the fascia and then a secondary #1 Vicryl stitch placed anteriorly, and that wound was then packed open given the obvious contamination. In order to mobilize the small bowel over to the right lower quadrant for formation of the new ileostomy, extensive small bowel dissection was required. Segment of small bowel distally had to be resected, as it was quite deserosalized after being dissected. As that loop coming out of the previous ileostomy was adherent extremely densely all the way down to the pelvic floor, I suspect that the patient probably had, at one of her previous procedures, a pelvic abscess found to be flanged between the bladder, pelvic sidewall, and urinary bladder and were extremely densely scarred in a confluent manner. Once that small bowel was mobilized up out of the pelvis, the area that was deserosalized was then resected and this was able to be mobilized over into the right lower quadrant, where we had a premarked location for the new ileostomy. On inspection of small bowel at this point, the patient had one additional small bowel stricture, which was treated by means of a stricturoplasty with bowel being flipped over on itself, antimesenteric border being opened, and internal firing of the MARY LOU stapler undertaken and the common opening then closed transversely with the MARY LOU stapler as well. The angles of anastomosis were reinforced with some 3-0 Vicryl stitch. In this case, there was no mesenteric defect. A roughly nickel sized incision was then made lateral to the umbilicus on the right side, where we premarked a relatively smooth area of the abdominal wall, and that core of skin then undertaken. A linear incision in the rectus muscle was then undertaken and the rectus muscle was spread and the underlying peritoneum spread, allowing the end ileostomy small- bowel to be pulled up into that area. The blood supply initially appeared to be a little bit dusky, but after loosening the internal opening somewhat more, that improved, and we had adequate blood supply to the end of the small bowel being used for the new ileostomy. The area was then irrigated with antibiotic-containing saline solution and a total of 3 Dann- Sadler drains placed, 2 in the depths of the pelvis and 1 across the more upper area of the abdomen. The patient did have quite a bit of oozing during the case and did receive 2 units of packed RBCs. However, those were planned to be given irregardless, as she came in with hemoglobin of under 8, and as we had been waiting for some cross-matchable blood. At that point, the midline fascia was approximated. On entering the abdomen, the patient did have an incisional hernia inferior to the umbilicus, and this was repaired as part of the closure with a #2 Vicryl stitch. The skin and subcutaneous tissue were packed open at both the primary midline incision and the old ileostomy site. The ileostomy was then matured using standard technique and using 3-0 Vicryl stitches, and this came up with a nice look circumferentially for hopefully an adequate appliance placement. The patient was then taken to the recovery room in satisfactory condition. There were no evident complications. Physician retail event and sales assistant, Aline Landeros, played an essential role in assisting in this case, helping to position the patient, retract structures as needed, as well as suturing and cutting sutures when indicated. Her presence improved patient safety and decreased operative time. Shamar Reno MD /[id number]
--- NOTE | 2019-07-24 13:49 | CONS ---
DATE OF SERVICE: 07/21/2019 REFERRING PHYSICIAN: CONSULTING PHYSICIAN: Shamar Reno MD HISTORY OF PRESENT ILLNESS: This is a 58-year-old with a long history of abdominal problems. Roughly 4 years ago, she had a total abdominal colectomy with ileostomy for inflammatory bowel disease. She is not certain whether or not the underlying diagnosis was Crohn's versus ulcerative colitis, but she does report in the past that she has had some problems with anal fistulas, which would imply an underlying Crohn's disease diagnosis. Over the past several days, the patient has had increasing abdominal pain and did have positive blood culture with Klebsiella and is on IV antibiotics for that. She was discharged home and then came back yesterday with increasing pain and her lactate was elevated around 4. This morning, it is down to 2.7, and she otherwise hemodynamically appears to be stable. She does have some tenderness lateral to the ileostomy, which is in the left lower quadrant and probably has a degree of paraileostomy hernia in that location as well. CT scan shows no obvious ongoing inflammatory bowel disease, but there certainly remains the possibility particularly with the likely history of Crohn's disease being an underlying primary diagnosis. Otherwise, her labs show hemoglobin dropped to 9.3. The white count was in the low-normal range. Magnesium is quite low this morning, it will be supplemented. We will check her phosphate also. She does have history of red blood cell antibodies, and we will type and cross for 2 units of packed RBCs today. The surgery may need to be delayed if we are not able to have blood available, for the complex history it probably would be ill advised to be operating on her without some cross-matched blood available. Otherwise, plan will be to proceed with an exploratory laparotomy with repair of paraileostomy hernia, as well as possible revision and moving the ileostomy to a new location, (this has been done twice previously in this case), and then other procedures as indicated. Positive blood cultures as such would imply there may be some infectious component that is going on, although that is not clear clinically or radiologically. We will plan on doing them preoperatively, and she is presently on meropenem, which likely should cover things adequately. We will switch her over to Dilaudid MOISTURE MACHINE TENDER today for better pain control and begin supplementing the magnesium, which is quite low at 1.2. Potential risks of the procedure were reviewed with the patient including bleeding, infection, injury to the underlying viscera, possible need for extensive bowel resection, as well as the possibility of cardiopulmonary, septic, or hemorrhagic complications leading to were discussed, and the patient wishes to proceed. We will marya the patient's abdominal wall tomorrow morning in the event that we need to move the ileostomy to a new location so as to place the ileostomy in a location where the appliance would likely work fairly well. Shamar Reno MD /[id number]
[2019-07-24] MEDS: MVI, Adult with Vitamin K 10 ML, Chromium/Copper/Mang/Selen/Zn 1 ML in Dextrose 5%-Lact... IV SCH ×3 (16:58)
[2019-07-24] MEDS: Pantoprazole 40 MG Vial IV SCH (21:20)
[2019-07-25] MEDS: Cyclobenzaprine 10 MG Tab PO SCH ×5 (00:17→23:43)
[2019-07-25] MEDS: hydrOXYzine HCL 100 MG/2 ML SDV IM PRN ×4 (01:55→20:20)
[2019-07-25] MEDS: Magnesium Sulfate/Water 2 GM in Premix Bag 1 BAG IV SCH ×4 (04:06→21:03)
[2019-07-25] MEDS: Meropenem 500 MG in Sodium Chloride 0.9% 50 ML IV SCH ×4 (06:04→23:36)
[2019-07-25] MEDS ORDERED: Meropenem 500 MG SDV ONE (06:26)
[2019-07-25] MEDS ORDERED: Lidocaine 1% with EPINEPHrine 1:100,000 50 ML MDV ONE (06:26)
[2019-07-25] MEDS ORDERED: Bupivacaine 0.5% 50 ML MDV ONE (06:26)
[2019-07-25] MEDS ORDERED: fentaNYL 100 MCG/2 ML SDV ONE (06:54)
[2019-07-25] MEDS ORDERED: Propofol 200 MG/20 ML SDV ONE ×3 (06:54→08:00)
[2019-07-25] MEDS ORDERED: Midazolam 1 MG/ML 2 ML SDV ONE (06:54)
[2019-07-25] MEDS: Albuterol/Ipratropium 3.0-0.5 MG/3 ML Neb Soln INH SCH ×4 (07:03→20:10)
[2019-07-25] MEDS ORDERED: Lactated Ringers 1,000 ML ONE (07:24)
[2019-07-25] MEDS: Mupirocin Oint 22 GM Tube TOP SCH (08:16)
--- NOTE | 2019-07-25 08:26 | PN ---
DATE OF SERVICE: 07/25/2019 SUBJECTIVE: Hemoglobin this morning was 10. BNP was 138. She is n.p.o. for delayed primary closure. States she is very nervous anytime she goes into surgery. Pain has been marginally controlled with FILE CLERK of Dilaudid, Vistaril, Ativan, and Flexeril. Denies any nausea or vomiting. Has been up ambulating. Remainder of review of systems is negative for any pertinent positives and negatives. OBJECTIVE: GENERAL: Aline Foley is a 58-year-old female, alert, orientated, appears quite anxious this morning. VITAL SIGNS: TPR at 0200; 97.5, 87, 16. Blood pressure 114/45. HEENT: Negative. NECK: Supple. HEART: Regular rate and rhythm. LUNGS: Clear. ABDOMEN: Dressing is dry and intact. Ileostomy has no further drainage. [place] drains are intact. EXTREMITIES: Without peripheral edema. ASSESSMENT: Exploratory laparotomy with: 1. Formation of new ileostomy. 2. Drainage of taylor-ileostomy abscess. 3. Small bowel resection. 4. Small bowel strictureplasty. 5. Repair of incarcerated paraileostomy hernia. 6. Repair of non-incarcerated incisional hernia involving midline incision. 7. Placement of Interceed mesh x2 to limit recurrent adhesion formation between pelvic and abdominal wall and underlying viscera. POSTOPERATIVE DIAGNOSES: 1. Taylor-ileostomy inflammation focal abscess. 2. Severe abdominal and pelvic adhesions. 3. Focal small-bowel stricture. 4. Incarcerated paraileostomy hernia. 5. Non-incarcerated incisional hernia. Date of surgery: 07/22/2019. Surgeon: Shamar Reno MD. PLAN: 1. Orders to be written after delayed primary closure today. 2. We will evaluate p.r.n. or in a.m. Aline Landeros PA-C /[id number]
--- NOTE | 2019-07-25 09:11 | PCM.PN ---
- General Info Date of Service: 07/25/19 Subjective Update: Ms. Foley is status post delayed primary closure this morning. She has remained hemodynamically stable and afebrile. She has been doing well with activity and walking in the hallways several times a day. Functional Status: Reports: Ambulating - Review of Systems General: Reports: Weakness. Denies: Fever, Chills Pulmonary: Reports: No Symptoms Cardiovascular: Reports: No Symptoms Gastrointestinal: Reports: Abdominal Pain. Denies: Difficulty Swallowing, Flatus, Nausea, Vomiting - Patient Data Vitals - Most Recent: Last Vital Signs Temp 97.9 F 07/25/19 08:55 Pulse 85 07/25/19 08:55 Resp 16 07/25/19 08:55 BP 110/43 L 07/25/19 08:55 Pulse Ox 94 L 07/25/19 08:55 Weight - Most Recent: 181 lb 7.047 oz I&O - Last 24 Hours: Intake & Output 07/24/19 07/25/19 07/25/19 22:59 06:59 14:59 Intake Total 50 1118 Output Total 410 9288 981 Balance -082 -4351 -338 Lab Results Last 24 Hours: Laboratory Results - last 24 hr 07/21/19 07/25/19 07/25/19 Range/Units 06:45 04:38 04:38 WBC 3.2 L (4.5-11.0) K/uL RBC 3.45 (3.30-5.50) M/uL Hgb 10.0 L D (12.0-15.0) g/dL Hct 32.3 L (36.0-48.0) % MCV 94 (80-98) fL MCH 29 (27-31) pg MCHC 31 L (32-36) % Plt Count 113 L (150-400) K/uL Sodium 138 L (140-148) mmol/L Potassium 3.8 (3.6-5.2) mmol/L Chloride 102 (100-108) mmol/L Carbon Dioxide 31 (21-32) mmol/L Anion Gap 8.8 (5.0-14.0) mmol/L BUN 4 L (7-18) mg/dL Creatinine 0.9 (0.6-1.0) mg/dL Est Cr Clr Drug Dosing 65.28 mL/min Estimated GFR (MDRD) > 60 (>60) Glucose 115 H (74-106) mg/dL Calcium 8.4 L (8.5-10.1) mg/dL Phosphorus 3.5 (2.5-4.9) mg/dL Total Bilirubin 0.9 D (0.2-1.0) mg/dL AST 12 L (15-37) U/L ALT 16 (12-78) U/L Alkaline Phosphatase 76 (46-116) U/L NT-Pro-B Natriuret Pep 138 H (5-125) pg/mL Total Protein 5.4 L (6.4-8.2) g/dL Albumin 2.4 L (3.4-5.0) g/dL Globulin 3.0 (2.3-3.5) g/dL Albumin/Globulin Ratio 0.8 L (1.2-2.2) Antibody Identification Anti-K Crossmatch See Detail Eliud Results Last 24 Hours: Microbiology 07/23/19 19:52 Aerobic Blood Culture - Preliminary Blood - Port-A-Cath NO GROWTH AFTER 1 DAY Anaerobic Blood Culture - Preliminary NO GROWTH AFTER 1 DAY 07/20/19 18:15 Aerobic Blood Culture - Final Blood - Port-A-Cath Klebsiella Pneumonia Ss Pneumo Anaerobic Blood Culture - Final Staphylococcus Epidermidis Med Orders - Current: Current Medications Albuterol/Ipratropium (Duoneb 3.0-0.5 Mg/3 Ml) 3 ml INH QIDRT [facility] Last Admin: 07/25/19 07:03 Dose: Not Given Albuterol/Ipratropium (Duoneb 3.0-0.5 Mg/3 Ml) 3 ml INH ASDIRECTED PRN PRN Reason: Shortness of Breath Bisacodyl (Dulcolax) 10 mg PO BID [facility] Cyanocobalamin (Vitamin B12) 1,000 mcg IM ONETIME ONE Stop: 07/25/19 10:01 Cyclobenzaprine HCl (Flexeril) 10 mg PO Q6H [facility] [place] Last Admin: 07/25/19 06:10 Dose: 10 mg Heparin Sodium (Porcine) (Heparin Lock Flush 100 Units/Ml) 500 units FLUSH ASDIRECTED PRN PRN Reason: Keep Vein Open Hydromorphone HCl (Dilaudid Waiter/Waitress Tavern 15 Mg In Ns 30 Ml) 15 mg IV ASDIRECTED CASSIE; Protocol Last Admin: 07/24/19 17:39 Dose: 15 mg Hydroxyzine HCl (Vistaril) 100 mg IM Q4H PRN PRN Reason: Pain Last Admin: 07/25/19 01:55 Dose: 100 mg Multivitamins/Minerals 10 ml/Chromium/Copper/Manganese/Seleni/Zn 1 ml/ Dextrose/ Lactated Ringer's 1,011 mls @ 75 mls/hr IV DAILY@1600 [facility] Last Admin: 07/24/19 16:58 Dose: 200 mls/hr Meropenem 500 mg/ Sodium (Chloride) 50 mls @ 100 mls/hr IV Q6H [facility] [place] Last Admin: 07/25/19 06:04 Dose: 100 mls/hr Magnesium Sulfate 2 gm/ Premix 50 mls @ 25 mls/hr IV Q6H [facility] [place] Stop: 07/27/19 05:59 Last Admin: 07/25/19 04:06 Dose: 25 mls/hr Dextrose/Lactated Ringer's (Dextrose 5%-Lactated Ringers) 1,000 mls @ 75 mls/ hr IV ASDIRECTED [facility] Lorazepam (Ativan) 0.5 mg IV Q2H PRN PRN Reason: ANXIETY Last Admin: 07/23/19 23:52 Dose: 0.5 mg Mupirocin (Bactroban Oint) 0 gm TOP DAILY [facility] [place] Last Admin: 07/25/19 08:16 Dose: Not Given Naloxone HCl (Narcan) 0.1 mg IV ASDIRECTED PRN PRN Reason: decreased respiratory rate Ondansetron HCl (Zofran) 4 mg IV Q4H PRN PRN Reason: Nausea/Vomiting Pantoprazole Sodium (Protonix Iv) 40 mg IV Q24H [facility] [place] Last Admin: 07/24/19 21:20 Dose: 40 mg Sodium Chloride (Saline Flush) 10 ml FLUSH ASDIRECTED PRN PRN Reason: Keep Vein Open Last Admin: 07/20/19 19:36 Dose: 10 ml Discontinued Medications Acetaminophen (Tylenol) 650 mg PO Q4H PRN PRN Reason: Pain (Mild 1-3)/fever Albuterol (Proventil Neb Soln) 2.5 mg NEB Q4H PRN PRN Reason: Shortness Of Breath/wheezing Albuterol/Ipratropium (Duoneb 3.0-0.5 Mg/3 Ml) 3 ml INH PREPRO [facility] [place] Stop: 07/21/19 11:01 Bupivacaine HCl (Marcaine 0.5%) Confirm Administered Dose 50 ml .ROUTE .STK-MED ONE Stop: 07/22/19 06:46 Bupivacaine HCl (Marcaine 0.5%) Confirm Administered Dose 50 ml .ROUTE .STK-MED ONE Stop: 07/25/19 06:27 Last Admin: 07/25/19 07:39 Dose: 10 ml Ropivacaine 41 ml/Dexamethasone 8 mg/Epinephrine HCl 0.4 mg/ Sodium Chloride 36.6 ml 0 ml NERVRT ASDIRECTED [facility] [place] Last Admin: 07/22/19 13:54 Dose: 80 syringe Ropivacaine 41 ml/Dexamethasone 8 mg/Epinephrine HCl 0.4 mg/ Sodium Chloride 36.6 ml 0 ml NERVRT ASDIRECTED [facility] Last Admin: 07/25/19 07:37 Dose: 80 syringe Dexamethasone (Dexamethasone) Confirm Administered Dose 4 mg .ROUTE .STK-MED ONE Stop: 07/22/19 07:09 Dicyclomine HCl (Bentyl) 20 mg IM ONETIME ONE Stop: 07/20/19 20:36 Last Admin: 07/20/19 22:05 Dose: Not Given Dicyclomine HCl (Bentyl) 20 mg IM ONETIME ONE Stop: 07/20/19 21:33 Last Admin: 07/20/19 21:38 Dose: 20 mg Duloxetine HCl (Cymbalta) 60 mg PO DAILY [facility] [place] Last Admin: 07/22/19 13:11 Dose: Not Given Fentanyl (Sublimaze) Confirm Administered Dose 250 mcg .ROUTE .STK-MED ONE Stop: 07/22/19 07:09 Fentanyl (Sublimaze) Confirm Administered Dose 250 mcg .ROUTE .STK-MED ONE Stop: 07/22/19 10:49 Fentanyl (Sublimaze) Confirm Administered Dose 250 mcg .ROUTE .STK-MED ONE Stop: 07/22/19 13:08 Fentanyl (Sublimaze) Confirm Administered Dose 100 mcg .ROUTE .STK-MED ONE Stop: 07/25/19 06:55 Glycopyrrolate (Robinul) Confirm Administered Dose 1 mg .ROUTE .STK-MED ONE Stop: 07/22/19 07:09 Heparin Sodium (Porcine) (Heparin Lock Flush 100 Units/Ml) Confirm Administered Dose 500 units .ROUTE .STK-MED ONE Stop: 07/23/19 05:34 Last Admin: 07/23/19 05:33 Dose: 500 units Hydrogen Peroxide (Proxacol 3%) Confirm Administered Dose 240 ml .ROUTE .STK- MED ONE Stop: 07/22/19 15:00 Hydromorphone HCl (Dilaudid) 0.5 mg IVPUSH ONETIME ONE Stop: 07/20/19 18:04 Last Admin: 07/20/19 18:23 Dose: 0.5 mg Hydromorphone HCl (Dilaudid) 0.5 mg IVPUSH ONETIME ONE Stop: 07/20/19 19:12 Last Admin: 07/20/19 19:17 Dose: 0.5 mg Hydromorphone HCl (Dilaudid) 1 mg IVPUSH ONETIME ONE Stop: 07/20/19 21:12 Last Admin: 07/20/19 21:28 Dose: 1 mg Hydromorphone HCl (Dilaudid) 1 mg IVPUSH Q2H PRN PRN Reason: Pain Last Admin: 07/21/19 06:09 Dose: 1 mg Hydromorphone HCl (Dilaudid Waiter/Waitress [place]avern 15 Mg In Ns 30 Ml) 0 mg IV ASDIRECTED PRN; Protocol PRN Reason: INCOME TAX MANAGER PAIN CONTROL Last Admin: 07/21/19 09:18 Dose: 15 mg Hydroxyzine HCl (Vistaril) 100 mg IM ONETIME ONE Stop: 07/21/19 14:23 Last Admin: 07/21/19 14:56 Dose: 100 mg Hydroxyzine HCl (Vistaril) 100 mg IM ONETIME ONE Stop: 07/22/19 15:22 Last Admin: 07/22/19 15:41 Dose: Not Given Lactated Ringer's (Ringers, Lactated) 1,000 mls @ 1,000 mls/hr IV BOLUS ONE Stop: 07/20/19 19:16 Last Admin: 07/20/19 18:29 Dose: 1,000 mls/hr Sodium Chloride (Normal Saline) 80 mls @ 3 mls/sec IV ASDIRECTED CASSIE Last Admin: 07/20/19 19:37 Dose: 3 mls/sec Dextrose/Lactated Ringer's (Dextrose 5%-Lactated Ringers) 1,000 mls @ 100 mls/ hr IV ASDIRECTED CASSIE Last Admin: 07/21/19 20:50 Dose: 100 mls/hr Meropenem 1 gm/ Sodium (Chloride) 100 mls @ 200 mls/hr IV Q8H [facility] Last Admin: 07/21/19 05:30 Dose: 200 mls/hr Magnesium Sulfate 2 gm/ Premix 50 mls @ 25 mls/hr IV Q6H [facility] [place] Stop: 07/24/19 05:59 Last Admin: 07/22/19 19:11 Dose: Not Given Ketamine HCl 50 mg/ Sodium (Chloride) 50 mls @ 18.6 mls/hr IV ASDIRECTED [facility] Meropenem 1 gm/ Sodium (Chloride) 100 mls @ 200 mls/hr IV Q8H [facility] [place] Last Admin: 07/22/19 19:11 Dose: Not Given Sodium Chloride (Normal Saline) Confirm Administered Dose 10 mls @ as directed .ROUTE .STK-MED ONE Stop: 07/22/19 10:47 Lactated Ringer's (Ringers, Lactated) Confirm Administered Dose 1,000 mls @ as directed .ROUTE .STK-MED ONE Stop: 07/22/19 12:36 Sodium Chloride (Normal Saline) Confirm Administered Dose 500 mls @ as directed .ROUTE .STK-MED ONE Stop: 07/22/19 12:36 Lactated Ringer's (Ringers, Lactated) Confirm Administered Dose 1,000 mls @ as directed .ROUTE .STK-MED ONE Stop: 07/22/19 12:36 Dextrose/Lactated Ringer's (Dextrose 5%-Lactated Ringers) 1,000 mls @ 200 mls/ hr IV ASDIRECTED [facility] [place] Last Admin: 07/23/19 04:01 Dose: 200 mls/hr Dextrose/Lactated Ringer's (Dextrose 5%-Lactated Ringers) 1,000 mls @ 100 mls/ hr IV ASDIRECTED [facility] Potassium Phosphate 15 mmol/ (Premix) 250 mls @ 84 mls/hr IV Q3H [facility] Stop: 07/23/19 17:59 Last Admin: 07/23/19 17:12 Dose: 84 mls/hr Lactated Ringer's (Ringers, Lactated) Confirm Administered Dose 1,000 mls @ as directed .ROUTE .STK-MED ONE Stop: 07/25/19 07:25 Imipramine HCl (Imipramine Hcl) 200 mg PO BEDTIME [facility] [place] Last Admin: 07/20/19 22:40 Dose: Not Given Imipramine HCl (Imipramine Hcl) 200 mg PO BEDTIME [facility] Iopamidol (Isovue-300 (61%)) 100 ml IV . DIRECTED [facility] Last Admin: 07/20/19 19:37 Dose: 100 ml Ketamine HCl (Ketalar) 31 mg IV ASDIRECTED [facility] Labetalol HCl (Normodyne) Confirm Administered Dose 20 mg .ROUTE .STK-MED ONE Stop: 07/22/19 13:26 Lactobacillus Rhamnosus (Culturelle) 1 cap PO BID [facility] [place] Last Admin: 07/22/19 13:11 Dose: Not Given Lidocaine/Epinephrine (Xylocaine 1% With Epinephrine 1:100,000) Confirm Administered Dose 50 ml .ROUTE .STK-MED ONE Stop: 07/22/19 06:46 Lidocaine/Epinephrine (Xylocaine 1% With Epinephrine 1:100,000) Confirm Administered Dose 50 ml .ROUTE .STK-MED ONE Stop: 07/25/19 06:27 Last Admin: 07/25/19 07:40 Dose: 10 ml Lorazepam (Ativan) 0.5 mg IVPUSH Q4H PRN PRN Reason: Nausea/Vomiting Last Admin: 07/22/19 06:11 Dose: 0.5 mg Lorazepam (Ativan) 0.5 mg IVPUSH Q1H PRN PRN Reason: Nausea/Vomiting Last Admin: 07/22/19 08:18 Dose: 0.5 mg Magnesium Hydroxide (Milk Of Magnesia) 30 ml PO Q12H PRN PRN Reason: Constipation Meropenem (Merrem) Confirm Administered Dose 500 mg .ROUTE .STK-MED ONE Stop: 07/22/19 06:45 Last Admin: 07/22/19 09:37 Dose: 500 mg Meropenem (Merrem) Confirm Administered Dose 500 mg .ROUTE .STK-MED ONE Stop: 07/22/19 10:47 Meropenem (Merrem) Confirm Administered Dose 500 mg .ROUTE .STK-MED ONE Stop: 07/25/19 06:27 Last Admin: 07/25/19 07:40 Dose: 500 mg Midazolam HCl (Versed 1 Mg/Ml) Confirm Administered Dose 2 mg .ROUTE .STK-MED ONE Stop: 07/25/19 06:55 Neostigmine Methylsulfate (Neostigmine) Confirm Administered Dose 5 mg .ROUTE .STK-MED ONE Stop: 07/22/19 07:09 Non-Formulary Medication (Tap Block, Pharmacy To Dose) 0 ml NERVRT ONETIME ONE Stop: 07/25/19 07:16 Ondansetron HCl (Zofran Odt) 4 mg PO Q6H PRN PRN Reason: Nausea able to take PO Ondansetron HCl (Zofran) 4 mg IV Q6H PRN PRN Reason: Nausea/Vomiting Ondansetron HCl (Zofran) Confirm Administered Dose 4 mg .ROUTE .STK-MED ONE Stop: 07/22/19 07:09 Propofol (Diprivan 20 Ml) Confirm Administered Dose 200 mg .ROUTE .STK-MED ONE Stop: 07/22/19 07:09 Propofol (Diprivan 20 Ml) Confirm Administered Dose 200 mg .ROUTE .STK-MED ONE Stop: 07/25/19 06:55 Propofol (Diprivan 20 Ml) Confirm Administered Dose 200 mg .ROUTE .STK-MED ONE Stop: 07/25/19 07:35 Propofol (Diprivan 20 Ml) Confirm Administered Dose 200 mg .ROUTE .STK-MED ONE Stop: 07/25/19 08:01 Rocuronium [place] (Zemuron) Confirm Administered Dose 50 mg .ROUTE .STK-MED ONE Stop: 07/22/19 07:09 Rocuronium [place] (Zemuron) Confirm Administered Dose 50 mg .ROUTE .STK-MED ONE Stop: 07/22/19 10:22 Senna/Docusate Sodium (Senna Plus) 1 tab PO BID PRN PRN Reason: Constipation Succinylcholine Chloride (Quelicin) Confirm Administered Dose 200 mg .ROUTE .STK -MED ONE Stop: 07/22/19 07:09 - Exam Quality Assessment: DVT Prophylaxis General: Alert, Oriented, Cooperative, Moderate Distress Lungs: Clear to Auscultation, Normal Respiratory Effort Cardiovascular: Regular Rate, Regular Rhythm, No Murmurs Extremities: Non-Tender, No Pedal Edema Sepsis Event Note - Evaluation Sepsis Screening Result: No Definite Risk - Focused Exam Vital Signs: Vital Signs Temp Temp Pulse Resp BP Pulse Ox 07/25/19 08:55 97.9 F 85 16 110/43 L 94 L 07/25/19 08:42 95 07/25/19 08:40 98.8 F 89 18 107/50 L 95 07/25/19 08:25 97.5 F 90 14 111/55 L 98 07/25/19 08:20 94 14 111/57 L 96 07/25/19 08:15 88 14 112/52 L 98 07/25/19 08:10 89 14 109/53 L 98 07/25/19 08:05 97.3 F 92 14 102/50 L 96 07/25/19 02:00 97.5 F 87 16 114/45 L 99 07/25/19 01:41 97 07/24/19 22:32 99.2 F 90 16 115/45 L 95 Date Exam was Performed: 07/25/19 Time Exam was Performed: 09:08 - Problem List Review Problem List Initiated/Reviewed/Updated: Yes - Plan Plan:: ASSESSMENT AND PLAN Status post exploratory laparotomy-she did undergo delayed primary closure this morning -Postoperative care per Dr. Reno Klebsiella bacteremia-likely source from the area of previous ileostomy -Continue meropenem Pancytopenia-she will require further evaluation after she is recovered from surgery, sent modestly improved since yesterday -Outpatient referral to hematology for probable bone marrow biopsy -Continue to monitor during hospital stay History of inflammatory bowel disease/Crohn's disease-previous colectomy and ileostomy formation. Concern for malfunctioning ileostomy as discussed above. Chronic hypomagnesemia-receives regular infusions of magnesium at the infusion center. Maintenance issues - - DVT prophylaxis -mechanical with possible surgery - GI prophylaxis -IV PPI - Nutrition -clear liquids today, nothing by mouth after midnight - Law catheter -not indicated at this time Disposition -I would anticipate discharge home after the hospital stay Primary care physician -Dr. Lisa Gerber
[2019-07-25] MEDS: HYDROmorphone/Normal Saline 15 MG/30 ML PCA IV SCH ×2 (09:21→20:10)
[2019-07-25] MEDS: Bisacodyl 5 MG Tab PO SCH ×2 (09:58→20:10)
[2019-07-25] MEDS ORDERED: Cyanocobalamin (Vitamin B12) 1,000 MCG/ML SDV IM ONE (10:00)
[2019-07-25] MEDS: MVI, Adult with Vitamin K 10 ML, Chromium/Copper/Mang/Selen/Zn 1 ML in Dextrose 5%-Lact... IV SCH ×3 (15:52)
[2019-07-25] MEDS: Pantoprazole 40 MG Vial IV SCH (21:02)
[2019-07-26] MEDS: hydrOXYzine HCL 100 MG/2 ML SDV IM PRN ×2 (00:45→04:48)
[2019-07-26] MEDS: HYDROmorphone/Normal Saline 15 MG/30 ML PCA IV SCH (04:52)
[2019-07-26] MEDS: Magnesium Sulfate/Water 2 GM in Premix Bag 1 BAG IV SCH ×4 (04:55→22:08)
[2019-07-26] MEDS: Meropenem 500 MG in Sodium Chloride 0.9% 50 ML IV SCH ×3 (05:01→16:28)
[2019-07-26] MEDS: Cyclobenzaprine 10 MG Tab PO SCH ×4 (05:42→23:50)
[2019-07-26] MEDS: Albuterol/Ipratropium 3.0-0.5 MG/3 ML Neb Soln INH SCH ×4 (06:58→22:08)
[2019-07-26] MEDS: Mupirocin Oint 22 GM Tube TOP SCH (08:11)
[2019-07-26] MEDS: Bisacodyl 5 MG Tab PO SCH ×2 (08:11→22:08)
--- NOTE | 2019-07-26 09:30 | PN ---
DATE OF SERVICE: 07/26/2019 SUBJECTIVE: Aline's pain has been better controlled. Vital signs stable. Oral intake zero. Recorded ileostomy output 200. [place] drains have put out respectively. She had some questions regarding surgery that she discussed with Shamar Reno MD. No other questions or concerns. REVIEW OF SYSTEMS: Remainder of review of systems negative for any pertinent positives and negatives. OBJECTIVE: GENERAL: Aline is a 58-year-old female, alert and orientated. VITAL SIGNS: TPR at 07:44 is 97, 90, 16, blood pressure 122/53. HEENT: Negative. NECK: Supple. HEART: Regular rate and rhythm. LUNGS: Clear. ABDOMEN: Dressings dry and intact. Ileostomy bag intact. EXTREMITIES: Without peripheral edema. ASSESSMENT: 1. Delayed primary closure on 07/25/2019. 2. Exploratory laparotomy with: a. Formation of new ileostomy. b. Drainage of taylor-ileostomy abscess. c. Small bowel resection. d. Small bowel strictureplasty. e. Repair of incarcerated taylor-ileostomy hernia. f. Repair of nonincarcerated incisional hernia involving midline incision. g. Placement of Interceed mesh x2 to limit recurrent adhesion formation between pelvic and abdominal wall and underlying viscera. POSTOPERATIVE DIAGNOSES: 1. Taylor-ileostomy inflammation, focal abscess. 2. Severe abdominal and pelvic adhesions. 3. Focal small-bowel stricture. 4. Incarcerated taylor-ileostomy hernia. 5. Nonincarcerated incisional hernia. Date of surgery: 07/22/2019. Surgeon: Shamar Reno MD. PLAN: 1. Regular diet. 2. Discontinue Vistaril IM. 3. 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 4. Dilaudid 4 mg every 4 hours p.r.n. pain. 5. Vistaril 50 to 100 mg every 4 hours p.r.n. pain. Pharmacy will try to formulate a liquid form. The patient is concerned that she will not absorb the pain medication and will just come straight through her in pill form. 6. Continue ambulation. 7. May shower. 8. We will evaluate p.r.n. or in a.m. Aline Landeros PA-C /[id number]
--- NOTE | 2019-07-26 10:37 | PCM.PN ---
- General Info Date of Service: 07/26/19 Subjective Update: Ms. Foley has been stable over the last 24 hours. Vital signs have remained good and she has been afebrile. Doing well with ambulation and transfers, reports ongoing incisional pain as would be expected. She is started to have output through her ostomy and has been started on a liquid diet. Functional Status: Reports: Tolerating Diet, Ambulating - Review of Systems General: Reports: Weakness. Denies: Fever, Chills Pulmonary: Reports: No Symptoms Cardiovascular: Reports: No Symptoms Gastrointestinal: Reports: Abdominal Pain, Decreased Appetite. Denies: Difficulty Swallowing, Nausea, Vomiting - Patient Data Vitals - Most Recent: Last Vital Signs Temp 97.0 F 07/26/19 07:44 Pulse 90 07/26/19 07:44 Resp 16 07/26/19 07:44 BP 122/53 L 07/26/19 07:44 Pulse Ox 99 07/26/19 07:44 Weight - Most Recent: 180 lb 3.2 oz I&O - Last 24 Hours: Intake & Output 07/25/19 07/26/19 07/26/19 22:59 06:59 14:59 Intake Total 437 956 Output Total 2200 1350 Balance -1763 -394 Eliud Results Last 24 Hours: Microbiology 07/23/19 19:52 Aerobic Blood Culture - Preliminary Blood - Port-A-Cath NO GROWTH AFTER 2 DAYS Anaerobic Blood Culture - Preliminary NO GROWTH AFTER 2 DAYS Med Orders - Current: Current Medications Albuterol/Ipratropium (Duoneb 3.0-0.5 Mg/3 Ml) 3 ml INH QIDRT [facility] Last Admin: 07/26/19 06:58 Dose: 3 ml Albuterol/Ipratropium (Duoneb 3.0-0.5 Mg/3 Ml) 3 ml INH ASDIRECTED PRN PRN Reason: Shortness of Breath Bisacodyl (Dulcolax) 10 mg PO BID [facility] Last Admin: 07/26/19 08:11 Dose: 10 mg Cyclobenzaprine HCl (Flexeril) 10 mg PO Q6H [facility] Last Admin: 07/26/19 05:42 Dose: 10 mg Heparin Sodium (Porcine) (Heparin Lock Flush 100 Units/Ml) 500 units FLUSH ASDIRECTED PRN PRN Reason: Keep Vein Open Hydromorphone HCl (Dilaudid) 4 mg PO Q4H PRN PRN Reason: Pain Hydroxyzine HCl (Atarax) 25 - 50 mg PO Q4H PRN PRN Reason: Pain Multivitamins/Minerals 10 ml/Chromium/Copper/Manganese/Seleni/Zn 1 ml/ Dextrose/ Lactated Ringer's 1,011 mls @ 75 mls/hr IV DAILY@1600 [facility] Last Admin: 07/25/19 15:52 Dose: 200 mls/hr Meropenem 500 mg/ Sodium (Chloride) 50 mls @ 100 mls/hr IV Q6H [facility] Last Admin: 07/26/19 05:01 Dose: 100 mls/hr Magnesium Sulfate 2 gm/ Premix 50 mls @ 25 mls/hr IV Q6H [facility] Stop: 07/27/19 05:59 Last Admin: 07/26/19 04:55 Dose: 25 mls/hr Lorazepam (Ativan) 0.5 mg IV Q2H PRN PRN Reason: ANXIETY Last Admin: 07/23/19 23:52 Dose: 0.5 mg Melatonin (Melatonin) 9 mg PO BEDTIME [facility] Mupirocin (Bactroban Oint) 0 gm TOP DAILY [facility] Last Admin: 07/26/19 08:11 Dose: 1 dose Ondansetron HCl (Zofran) 4 mg IV Q4H PRN PRN Reason: Nausea/Vomiting Pantoprazole Sodium (Protonix Iv) 40 mg IV Q24H [facility] Last Admin: 07/25/19 21:02 Dose: 40 mg Sodium Chloride (Saline Flush) 10 ml FLUSH ASDIRECTED PRN PRN Reason: Keep Vein Open Last Admin: 07/20/19 19:36 Dose: 10 ml Discontinued Medications Acetaminophen (Tylenol) 650 mg PO Q4H PRN PRN Reason: Pain (Mild 1-3)/fever Albuterol (Proventil Neb Soln) 2.5 mg NEB Q4H PRN PRN Reason: Shortness Of Breath/wheezing Albuterol/Ipratropium (Duoneb 3.0-0.5 Mg/3 Ml) 3 ml INH PREPRO [facility] Stop: 07/21/19 11:01 Bupivacaine HCl (Marcaine 0.5%) Confirm Administered Dose 50 ml .ROUTE .[facility]-MED ONE Stop: 07/22/19 06:46 Bupivacaine HCl (Marcaine 0.5%) Confirm Administered Dose 50 ml .ROUTE .ST[facility]-MED ONE Stop: 07/25/19 06:27 Last Admin: 07/25/19 07:39 Dose: 10 ml Ropivacaine 41 ml/Dexamethasone 8 mg/Epinephrine HCl 0.4 mg/ Sodium Chloride 36.6 ml 0 ml NERVRT ASDIRECTED [facility] Last Admin: 07/22/19 13:54 Dose: 80 syringe Ropivacaine 41 ml/Dexamethasone 8 mg/Epinephrine HCl 0.4 mg/ Sodium Chloride 36.6 ml 0 ml NERVRT ASDIRECTED [facility] Last Admin: 07/25/19 07:37 Dose: 80 syringe Cyanocobalamin (Vitamin B12) 1,000 mcg IM ONETIME ONE Stop: 07/25/19 10:01 Last Admin: 07/25/19 11:20 Dose: Not Given Dexamethasone (Dexamethasone) Confirm Administered Dose 4 mg .ROUTE .STK-MED ONE Stop: 07/22/19 07:09 Dicyclomine HCl (Bentyl) 20 mg IM ONETIME ONE Stop: 07/20/19 20:36 Last Admin: 07/20/19 22:05 Dose: Not Given Dicyclomine HCl (Bentyl) 20 mg IM ONETIME ONE Stop: 07/20/19 21:33 Last Admin: 07/20/19 21:38 Dose: 20 mg Duloxetine HCl (Cymbalta) 60 mg PO DAILY [facility] Last Admin: 07/22/19 13:11 Dose: Not Given Fentanyl (Sublimaze) Confirm Administered Dose 250 mcg .ROUTE .STK-MED ONE Stop: 07/22/19 07:09 Fentanyl (Sublimaze) Confirm Administered Dose 250 mcg .ROUTE .STK-MED ONE Stop: 07/22/19 10:49 Fentanyl (Sublimaze) Confirm Administered Dose 250 mcg .ROUTE .STK-MED ONE Stop: 07/22/19 13:08 Fentanyl (Sublimaze) Confirm Administered Dose 100 mcg .ROUTE .STK-MED ONE Stop: 07/25/19 06:55 Glycopyrrolate (Robinul) Confirm Administered Dose 1 mg .ROUTE .STK-MED ONE Stop: 07/22/19 07:09 Heparin Sodium (Porcine) (Heparin Lock Flush 100 Units/Ml) Confirm Administered Dose 500 units .ROUTE .STK-MED ONE Stop: 07/23/19 05:34 Last Admin: 07/23/19 05:33 Dose: 500 units Hydrogen Peroxide (Proxacol 3%) Confirm Administered Dose 240 ml .ROUTE .STK- MED ONE Stop: 07/22/19 15:00 Hydromorphone HCl (Dilaudid) 0.5 mg IVPUSH ONETIME ONE Stop: 07/20/19 18:04 Last Admin: 07/20/19 18:23 Dose: 0.5 mg Hydromorphone HCl (Dilaudid) 0.5 mg IVPUSH ONETIME ONE Stop: 07/20/19 19:12 Last Admin: 07/20/19 19:17 Dose: 0.5 mg Hydromorphone HCl (Dilaudid) 1 mg IVPUSH ONETIME ONE Stop: 07/20/19 21:12 Last Admin: 07/20/19 21:28 Dose: 1 mg Hydromorphone HCl (Dilaudid) 1 mg IVPUSH Q2H PRN PRN Reason: Pain Last Admin: 07/21/19 06:09 Dose: 1 mg Hydromorphone HCl (Dilaudid Final Touch Up Painter 15 Mg In Ns 30 Ml) 0 mg IV ASDIRECTED PRN; Protocol PRN Reason: [employer]MATION F[employer]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 [employer]PERATOR PAIN CONTROL Last Admin: 07/21/19 09:18 Dose: 15 mg Hydromorphone HCl (Dilaudid Final Touch Up Painter 15 Mg In Ns 30 Ml) 15 mg IV ASDIRECTED [facility]; Protocol Last Admin: 07/26/19 04:52 Dose: 15 mg Hydroxyzine HCl (Vistaril) 100 mg IM ONETIME ONE Stop: 07/21/19 14:23 Last Admin: 07/21/19 14:56 Dose: 100 mg Hydroxyzine HCl (Vistaril) 100 mg IM Q4H PRN PRN Reason: Pain Last Admin: 07/26/19 04:48 Dose: 100 mg Hydroxyzine HCl (Vistaril) 100 mg IM ONETIME ONE Stop: 07/22/19 15:22 Last Admin: 07/22/19 15:41 Dose: Not Given Lactated Ringer's (Ringers, Lactated) 1,000 mls @ 1,000 mls/hr IV BOLUS ONE Stop: 07/20/19 19:16 Last Admin: 07/20/19 18:29 Dose: 1,000 mls/hr Sodium Chloride (Normal Saline) 80 mls @ 3 mls/sec IV ASDIRECTED [facility] Last Admin: 07/20/19 19:37 Dose: 3 mls/sec Dextrose/Lactated Ringer's (Dextrose 5%-Lactated Ringers) 1,000 mls @ 100 mls/ hr IV ASDIRECTED [facility] Last Admin: 07/21/19 20:50 Dose: 100 mls/hr Meropenem 1 gm/ Sodium (Chloride) 100 mls @ 200 mls/hr IV Q8H [facility] Last Admin: 07/21/19 05:30 Dose: 200 mls/hr Magnesium Sulfate 2 gm/ Premix 50 mls @ 25 mls/hr IV Q6H [facility] Stop: 07/24/19 05:59 Last Admin: 07/22/19 19:11 Dose: Not Given Ketamine HCl 50 mg/ Sodium (Chloride) 50 mls @ 18.6 mls/hr IV ASDIRECTED [facility] Meropenem 1 gm/ Sodium (Chloride) 100 mls @ 200 mls/hr IV Q8H [facility] Last Admin: 07/22/19 19:11 Dose: Not Given Sodium Chloride (Normal Saline) Confirm Administered Dose 10 mls @ as directed .ROUTE .STK-MED ONE Stop: 07/22/19 10:47 Lactated Ringer's (Ringers, Lactated) Confirm Administered Dose 1,000 mls @ as directed .ROUTE .STK-MED ONE Stop: 07/22/19 12:36 Sodium Chloride (Normal Saline) Confirm Administered Dose 500 mls @ as directed .ROUTE .STK-MED ONE Stop: 07/22/19 12:36 Lactated Ringer's (Ringers, Lactated) Confirm Administered Dose 1,000 mls @ as directed .ROUTE .STK-MED ONE Stop: 07/22/19 12:36 Dextrose/Lactated Ringer's (Dextrose 5%-Lactated Ringers) 1,000 mls @ 200 mls/ hr IV ASDIRECTED [facility] Last Admin: 07/23/19 04:01 Dose: 200 mls/hr Dextrose/Lactated Ringer's (Dextrose 5%-Lactated Ringers) 1,000 mls @ 100 mls/ hr IV ASDIRECTED [facility] Potassium Phosphate 15 mmol/ (Premix) 250 mls @ 84 mls/hr IV Q3H [facility] Stop: 07/23/19 17:59 Last Admin: 07/23/19 17:12 Dose: 84 mls/hr Dextrose/Lactated Ringer's (Dextrose 5%-Lactated Ringers) 1,000 mls @ 75 mls/ hr IV ASDIRECTED [facility] Lactated Ringer's (Ringers, Lactated) Confirm Administered Dose 1,000 mls @ as directed .ROUTE .STK-MED ONE Stop: 07/25/19 07:25 Imipramine HCl (Imipramine Hcl) 200 mg PO BEDTIME [facility] Last Admin: 07/20/19 22:40 Dose: Not Given Imipramine HCl (Imipramine Hcl) 200 mg PO BEDTIME [facility] Iopamidol (Isovue-300 (61%)) 100 ml IV . DIRECTED [facility] Last Admin: 07/20/19 19:37 Dose: 100 ml Ketamine HCl (Ketalar) 31 mg IV ASDIRECTED [facility] Labetalol HCl (Normodyne) Confirm Administered Dose 20 mg .ROUTE .STK-MED ONE Stop: 07/22/19 13:26 Lactobacillus Rhamnosus (Culturelle) 1 cap PO BID [facility] Last Admin: 07/22/19 13:11 Dose: Not Given Lidocaine/Epinephrine (Xylocaine 1% With Epinephrine 1:100,000) Confirm Administered Dose 50 ml .ROUTE .STK-MED ONE Stop: 07/22/19 06:46 Lidocaine/Epinephrine (Xylocaine 1% With Epinephrine 1:100,000) Confirm Administered Dose 50 ml .ROUTE .STK-MED ONE Stop: 07/25/19 06:27 Last Admin: 07/25/19 07:40 Dose: 10 ml Lorazepam (Ativan) 0.5 mg IVPUSH Q4H PRN PRN Reason: Nausea/Vomiting Last Admin: 07/22/19 06:11 Dose: 0.5 mg Lorazepam (Ativan) 0.5 mg IVPUSH Q1H PRN PRN Reason: Nausea/Vomiting Last Admin: 07/22/19 08:18 Dose: 0.5 mg Magnesium Hydroxide (Milk Of Magnesia) 30 ml PO Q12H PRN PRN Reason: Constipation Meropenem (Merrem) Confirm Administered Dose 500 mg .ROUTE .STK-MED ONE Stop: 07/22/19 06:45 Last Admin: 07/22/19 09:37 Dose: 500 mg Meropenem (Merrem) Confirm Administered Dose 500 mg .ROUTE .STK-MED ONE Stop: 07/22/19 10:47 Meropenem (Merrem) Confirm Administered Dose 500 mg .ROUTE .STK-MED ONE Stop: 07/25/19 06:27 Last Admin: 07/25/19 07:40 Dose: 500 mg Midazolam HCl (Versed 1 Mg/Ml) Confirm Administered Dose 2 mg .ROUTE .STK-MED ONE Stop: 07/25/19 06:55 Naloxone HCl (Narcan) 0.1 mg IV ASDIRECTED PRN PRN Reason: decreased respiratory rate Neostigmine Methylsulfate (Neostigmine) Confirm Administered Dose 5 mg .ROUTE .STK-MED ONE Stop: 07/22/19 07:09 Non-Formulary Medication (Tap Block, Pharmacy To Dose) 0 ml NERVRT ONETIME ONE Stop: 07/25/19 07:16 Last Admin: 07/25/19 15:18 Dose: Not Given Ondansetron HCl (Zofran Odt) 4 mg PO Q6H PRN PRN Reason: Nausea able to take PO Ondansetron HCl (Zofran) 4 mg IV Q6H PRN PRN Reason: Nausea/Vomiting Ondansetron HCl (Zofran) Confirm Administered Dose 4 mg .ROUTE .STK-MED ONE Stop: 07/22/19 07:09 Propofol (Diprivan 20 Ml) Confirm Administered Dose 200 mg .ROUTE .STK-MED ONE Stop: 07/22/19 07:09 Propofol (Diprivan 20 Ml) Confirm Administered Dose 200 mg .ROUTE .STK-MED ONE Stop: 07/25/19 06:55 Propofol (Diprivan 20 Ml) Confirm Administered Dose 200 mg .ROUTE .STK-MED ONE Stop: 07/25/19 07:35 Propofol (Diprivan 20 Ml) Confirm Administered Dose 200 mg .ROUTE .STK-MED ONE Stop: 07/25/19 08:01 Rocuronium [place] (Zemuron) Confirm Administered Dose 50 mg .ROUTE .STK-MED ONE Stop: 07/22/19 07:09 Rocuronium [place] (Zemuron) Confirm Administered Dose 50 mg .ROUTE .STK-MED ONE Stop: 07/22/19 10:22 Senna/Docusate Sodium (Senna Plus) 1 tab PO BID PRN PRN Reason: Constipation Succinylcholine Chloride (Quelicin) Confirm Administered Dose 200 mg .ROUTE .STK -MED ONE Stop: 07/22/19 07:09 - Exam Quality Assessment: DVT Prophylaxis General: Alert, Oriented, Cooperative, Moderate Distress Lungs: Clear to Auscultation, Normal Respiratory Effort Cardiovascular: Regular Rate, Regular Rhythm, No Murmurs Extremities: Non-Tender, No Pedal Edema Sepsis Event Note - Evaluation Sepsis Screening Result: No Definite Risk - Focused Exam Vital Signs: Vital Signs Temp Pulse Resp BP Pulse Ox 07/26/19 07:44 97.0 F 90 16 122/53 L 99 07/26/19 07:41 94 L 07/26/19 06:59 85 07/26/19 03:00 97.9 F 80 18 97/52 L 98 07/26/19 01:00 96 07/25/19 23:21 97 F 90 16 122/50 L 97 Date Exam was Performed: 07/26/19 Time Exam was Performed: 10:33 - Problem List Review Problem List Initiated/Reviewed/Updated: Yes - My Orders Last 24 Hours: My Active Orders 07/26/19 10:31 Convert IV to Saline Lock [OM.PC] Routine 07/26/19 21:00 Melatonin 9 mg PO BEDTIME - Plan Plan:: ASSESSMENT AND PLAN Status post exploratory laparotomy-she did undergo delayed primary closure this morning -Postoperative care per Dr. Reno Klebsiella bacteremia-likely source from the area of previous ileostomy -Continue meropenem for a total course of 10 days, this will be completed on July 29. Pancytopenia-she will require further evaluation after she is recovered from surgery -Outpatient referral to hematology for probable bone marrow biopsy -Continue to monitor during hospital stay History of inflammatory bowel disease/Crohn's disease-previous colectomy and ileostomy formation. Concern for malfunctioning ileostomy as discussed above. Chronic hypomagnesemia-receives regular infusions of magnesium at the infusion center. Maintenance issues - - DVT prophylaxis -mechanical with possible surgery - GI prophylaxis -IV PPI - Nutrition -clear liquids today, nothing by mouth after midnight - Law catheter -not indicated at this time Disposition -I would anticipate discharge home after the hospital stay Primary care physician -Dr. Lisa Gerber She has been medically stable over the past several days, hospital service will sign off on the patient at this time. If we can be of further assistance in her medical care during this hospitalization please feel free to reconsult.
[2019-07-26] MEDS: HYDROmorphone 2 MG Tab PO PRN ×2 (10:55→22:27)
[2019-07-26] MEDS: hydrOXYzine HCl 25 MG Tab PO PRN ×2 (10:56→22:27)
[2019-07-26] MEDS: LORazepam 2 MG/ML SDV IV PRN (13:00)
[2019-07-26] MEDS: Melatonin 3 MG Tab PO SCH (22:08)
[2019-07-26] MEDS: Pantoprazole 40 MG Vial IV SCH (22:35)
[2019-07-26] MEDS ORDERED: HYDROmorphone 1 MG/ML Syringe IVPUSH ONE (22:59)
[2019-07-27] MEDS ORDERED: HYDROmorphone 1 MG/ML Syringe IVPUSH ONE (00:34)
[2019-07-27] MEDS: Meropenem 500 MG in Sodium Chloride 0.9% 50 ML IV SCH ×5 (00:45→22:18)
[2019-07-27] MEDS: HYDROmorphone 2 MG Tab PO PRN ×6 (02:36→22:15)
[2019-07-27] MEDS: hydrOXYzine HCl 25 MG Tab PO PRN ×7 (02:36→22:14)
[2019-07-27] MEDS: Magnesium Sulfate/Water 2 GM in Premix Bag 1 BAG IV SCH (03:18)
[2019-07-27] MEDS: Cyclobenzaprine 10 MG Tab PO SCH ×4 (06:23→23:31)
[2019-07-27] MEDS: Albuterol/Ipratropium 3.0-0.5 MG/3 ML Neb Soln INH SCH ×4 (07:41→22:13)
[2019-07-27] MEDS: Bisacodyl 5 MG Tab PO SCH ×2 (09:11→22:13)
[2019-07-27] MEDS: Mupirocin Oint 22 GM Tube TOP SCH (09:11)
[2019-07-27] MEDS ORDERED: HYDROmorphone 2 MG Tab PO PRN (10:44)
[2019-07-27] MEDS ORDERED: Meperidine PF 100 MG/ML Syringe IM ONE (11:50)
[2019-07-27] MEDS ORDERED: hydrOXYzine HCL 100 MG/2 ML SDV IM ONE (11:50)
[2019-07-27] MEDS: Pantoprazole 40 MG Tab.CR PO SCH (22:14)
[2019-07-27] MEDS: Melatonin 3 MG Tab PO SCH (22:14)
[2019-07-28] MEDS: hydrOXYzine HCl 25 MG Tab PO PRN ×6 (02:15→22:27)
[2019-07-28] MEDS: HYDROmorphone 2 MG Tab PO PRN ×6 (02:15→22:27)
[2019-07-28] MEDS: Meropenem 500 MG in Sodium Chloride 0.9% 50 ML IV SCH ×4 (05:56→22:29)
[2019-07-28] MEDS: Cyclobenzaprine 10 MG Tab PO SCH ×3 (06:28→18:21)
[2019-07-28] MEDS: Albuterol/Ipratropium 3.0-0.5 MG/3 ML Neb Soln INH SCH ×4 (07:12→20:44)
[2019-07-28] MEDS ORDERED: fentaNYL 25 MCG/HR Transdermal Patch TRDERM SCH (08:30)
[2019-07-28] MEDS: Mupirocin Oint 22 GM Tube TOP SCH (08:36)
[2019-07-28] MEDS: Bisacodyl 5 MG Tab PO SCH ×2 (08:37→20:34)
[2019-07-28] MEDS: VERIFY FENTANYL PATCH TOP SCH ×2 (08:38→20:43)
[2019-07-28] MEDS: Melatonin 3 MG Tab PO SCH (20:34)
[2019-07-28] MEDS: Pantoprazole 40 MG Tab.CR PO SCH (20:34)
[2019-07-29] MEDS: Cyclobenzaprine 10 MG Tab PO SCH ×4 (00:22→18:32)
[2019-07-29] MEDS: HYDROmorphone 2 MG Tab PO PRN ×5 (02:30→20:55)
[2019-07-29] MEDS: hydrOXYzine HCl 25 MG Tab PO PRN ×5 (02:30→20:55)
[2019-07-29] MEDS: Meropenem 500 MG in Sodium Chloride 0.9% 50 ML IV SCH ×4 (05:31→22:33)
[2019-07-29] MEDS: Albuterol/Ipratropium 3.0-0.5 MG/3 ML Neb Soln INH SCH ×4 (07:04→20:56)
[2019-07-29] MEDS: Bisacodyl 5 MG Tab PO SCH ×2 (08:52→20:55)
[2019-07-29] MEDS: Mupirocin Oint 22 GM Tube TOP SCH (08:52)
[2019-07-29] MEDS: VERIFY FENTANYL PATCH TOP SCH ×2 (08:55→20:56)
[2019-07-29] MEDS ORDERED: Levofloxacin 500 MG Tab PO SCH (12:00)
--- NOTE | 2019-07-29 13:00 | PN ---
DATE OF SERVICE: 07/25/2019 The patient has been afebrile with stable vital signs. Some mucus coming out of the ostomy but no stool as of yet. However, she has been clinically stable. Does require fair bit of pain medication, but was wide awake and alert with that. She underwent the delayed primary closure of both incisions today and the [place] drains and Law catheter were removed. We will begin some bowel stimulation, but otherwise keep her on sips of clear liquids until she get return of bowel function. Her ostomy was examined today, that looks edematous, but otherwise very viable. Shamar Reno MD /[id number]
--- NOTE | 2019-07-29 13:00 | PN ---
DATE OF SERVICE: 07/27/2019 The patient has been afebrile with stable vital signs. She had quite a bit of confusion and pain control issues during the night related to Ativan dose. Her reports that had occurred previously in the hospital in [place] at one point and will, therefore, discontinue the Ativan and have that listed as a medication with adverse side effects. Otherwise, will tentatively plan to have the patient be discharged home tomorrow, pending continued clinical stability. Shamar Reno MD /[id number]
--- NOTE | 2019-07-29 13:30 | PN ---
DATE OF SERVICE: 07/28/2019 The patient has been afebrile with stable vital signs. in the way of abdominal pain. She is receiving quite high doses of Dilaudid 6 mg every 4 hours or so, along with some oral Vistaril, but is still complaining of a fair bit of pain. She is wide awake, so she does not appear to be overdosing on this. Given this, I think we will add a fentanyl patch to see if we can get some more stability in terms of pain control, and otherwise, her examination shows the ileostomy to be healing well. The ischemic changes that were seen initially have now dissipated, and the entire ileostomy is well perfused and this seems to be bradley normally. We will see how we are doing tomorrow as far as pain control, and she may be ready for discharge home at that point. Aquacel dressing will be replaced today. Shamar Reno MD /[id number]
--- NOTE | 2019-07-29 15:22 | DISCH ---
ADMISSION DIAGNOSES: 1. Positive blood culture for Klebsiella. 2. Left lower quadrant abdominal pain. 3. Fever and chills. 4. Gram-negative sepsis. 5. Chronic kidney disease, stage 3. 6. Narcotic addiction. 7. Red blood cell antibody positive. 8. History of supraventricular tachycardia. 9. Chronic pain syndrome. 10.History of left nephrectomy. 11.Crohn's disease. POSTOPERATIVE DIAGNOSES: 1. Paraileostomy inflammation, focal abscess. 2. Severe abdominal and pelvic adhesions. 3. Focal small-bowel stricture. 4. Incarcerated paraileostomy hernia. 5. Non-incarcerated incisional hernia. DISCHARGE DIAGNOSES: 1. Exploratory laparotomy with: a. Formation of a new ileostomy. b. Drainage of paraileostomy abscess. c. Small bowel resection. d. Small bowel strictureplasty. e. Repair of an incarcerated paraileostomy hernia. f. Repair of a non-incarcerated incisional hernia involving midline incision. g. Placement of Interceed mesh x2 to limit recurrent adhesion formation between pelvic and abdominal wall and underlying viscera. Date of surgery, 07/22/2019. Surgeon, Shamar Reno MD. 2. Delayed primary closure for open abdominal incision, 07/25/2019. 3. Klebsiella bacteremia, source likely from the area of previous ileostomy. 4. Pancytopenia. 5. History of inflammatory bowel disease and Crohn's disease, previously colectomy and ileostomy formation. 6. Chronic hypomagnesemia (receives regular infusions of magnesium at the Infusion Center). 7. History of port placement, considered long-term for chronic hypomagnesemia. HISTORY: Aline Foley is a 58-year-old female, who presented to the emergency room on 07/20/2019 after being discharged late 07/19/2019 for Klebsiella on a blood culture. She was sent home with cephalosporin and tramadol but reappeared at the ER with left lower quadrant abdominal pain, which progressed. She had chills but no fever. Colostomy fluid was looser. Tramadol was not helping with her pain. She had a CT and was admitted to the hospital and, on 07/20/2019, consultation with Shamar Reno MD, surgeon, for increasing abdominal pain and tenderness lateral to the ileostomy. She also had a paraileostomy hernia. Hemoglobin had dropped to 9.3. Magnesium was low, so it was supplemented, and she was typed and crossed for 2 units of packed red blood cells. On 07/22/2019, she was hemodynamically stable for surgery. She had no operative complications, with the exception of hemoglobin of 8.8 on postoperative day #1. Phosphorus was 2. Platelets were 125,000, which was up from 96,000 on the day of surgery. The pain was difficult to control, so WATERFRONT DIRECTOR was increased. On 07/23/2019, she was given 1 unit of blood, as well as on 07/24/2019. K- Phos was replaced, and on , she had delayed primary closure and had no complications following that. On 07/25/2019, vital signs remained stable. She was started on a regular diet. Vistaril, which was given IM in adjunct to her WATERFRONT DIRECTOR, was changed to oral, and WATERFRONT DIRECTOR was discontinued, and she was given oral Dilaudid. On 07/27/2019, the pain was not adequately controlled with oral Dilaudid; it was increased to 6 mg of Dilaudid every 4 hours, and she was started on fentanyl 25 mcg patch, along with her Atarax. This seemed to be adequate for pain management. Aline was up independently and afebrile. Vital signs were stable. Oral intake was 960. Urine output was 1700. She was having stool in her ileostomy. Appetite had improved. Labs on the morning of discharge: White count 2.3, hemoglobin 7.8, and platelets 96,000. Potassium 3.8. Calcium is 8.2. Magnesium was not checked; she is getting that through the IV. Aline was alert and orientated and was able to be discharged to home in stable condition. PHYSICAL EXAMINATION: GENERAL: Aline is a 58-year-old female. VITAL SIGNS: Height is 5 feet 6.93 inches, weight is 181 pounds, and BMI is 28. TPR at 0232 hours 97.6, 87, and 14 and blood pressure 107/44. HEENT: Negative. NECK: Supple. HEART: Regular rate and rhythm. LUNGS: Clear. ABDOMEN: Dressing is dry and intact. She has Aquacel on. Ileostomy bag is intact. There is some stool in that. EXTREMITIES: Without peripheral edema. DISPOSITION: Discharged to home. CONDITION: Stable and improving. FOLLOWUP APPOINTMENT: With Shamar Reno MD, on 08/02/2019, at 10:00 a.m. She is to arrive at 9:30 a.m. and have lab work drawn; CBC, magnesium, phosphorus, and CMP. NEW MEDICATIONS: 1. Duragesic 25 mcg transderm patch, to remove that on 08/02/2019. 2. Dilaudid 6 mg q.6 hours p.r.n. pain, #50. 3. Vistaril 25 to 50 mg every 4 hours p.r.n. pain, #50. HOME MEDICATIONS: 1. Discontinue tramadol. 2. Tylenol 1000 mg every 4 hours p.r.n. pain. 3. Vitamin B12 injection 1 mL IM as directed. 4. Cymbalta 60 mg oral daily. 5. Imipramine 200 mg at bedtime. 6. Magnesium chloride 192 mg oral 3 times a day. 7. Melatonin 3 mg at bedtime. 8. Nystatin ointment 1 topical twice daily. 9. Zyprexa 5 mg every 12 hours. 10.Zofran ODT 4 mg every 4 hours p.r.n. nausea. 11.Flintstones multiple chewable tablet 1 tablet daily. 12.Imitrex 50 mg oral p.r.n. migraine. 13.Tizanidine 4 mg twice daily p.r.n. muscle spasms. Discontinue taking Omnicef and tramadol as stated. DISCHARGE INSTRUCTIONS: Diet: Usual diet as tolerated, drink 8 to 10 glasses of water a day. Other activity: No lifting over 10 pounds for 6 weeks. Other activity: Walk 6 times daily. Driving: Do not drive while on narcotic pain medication. Shower/bathing: May shower. Notify the provider if any fever, increased pain, nausea, or vomiting. Keep the site clean and dry. Take off the Aquacel dressing on , 08/01/2019. Other instructions: Use incentive spirometer 10 times every hour while awake. Of note, the patient's port was flushed prior to discharge. She does have an appointment weekly with the infusion center at [facility] for weekly port dressing changes and flushes and magnesium infusion. She also has supplies at home to infuse through her port saline when she feels like she is dehydrated.
[2019-07-29] MEDS: Melatonin 3 MG Tab PO SCH (20:56)
[2019-07-29] MEDS: Pantoprazole 40 MG Tab.CR PO SCH (20:57)
[2019-07-30] MEDS: Cyclobenzaprine 10 MG Tab PO SCH ×3 (00:15→12:11)
[2019-07-30] MEDS: HYDROmorphone 2 MG Tab PO PRN ×3 (01:01→09:24)
[2019-07-30] MEDS: hydrOXYzine HCl 25 MG Tab PO PRN ×3 (01:02→09:24)
[2019-07-30] MEDS: Meropenem 500 MG in Sodium Chloride 0.9% 50 ML IV SCH ×2 (04:58→11:07)
[2019-07-30] MEDS: Albuterol/Ipratropium 3.0-0.5 MG/3 ML Neb Soln INH SCH ×2 (06:58→10:33)
--- NOTE | 2019-07-30 08:52 | OR ---
DATE OF PROCEDURE: 07/25/2019 SURGEON: Shamar Reno MD PREOPERATIVE DIAGNOSIS: Open abdominal incisions. POSTOPERATIVE DIAGNOSIS: Open abdominal incisions. OPERATIVE PROCEDURE: Delayed primary closure of open abdominal incisions. ANESTHESIA: Local plus IV sedation. INDICATION FOR PROCEDURE: This is a 58-year-old status post revision of an ileostomy. The previous ileostomy site was left open, along with the midline incision, as they were felt to be high risk for wound infection. Primary closure was undertaken. The potential risks of delayed primary closure, including bleeding and infection, were reviewed, and the patient wishes to proceed. DETAILS OF PROCEDURE: The patient was taken to the operating room and placed in a supine position after IV sedation was administered. The previous abdominal dressings were taken down. The wounds were inspected and found to be clean. Bilateral transversus abdominis plane blocks were then placed using ultrasound guidance, and the incisions were then prepped and draped and anesthetized with 1% lidocaine mixed with Marcaine and irrigated with a meropenem- containing saline solution at both sites. Two layers of 3-0 and 4-0 Vicryl sutures were placed deep and the skin closed with christiano. Dressings were applied. The patient was taken to the recovery room in satisfactory condition. Shamar Reno MD /[id number]
[2019-07-30] MEDS: Mupirocin Oint 22 GM Tube TOP SCH (08:56)
[2019-07-30] MEDS: Bisacodyl 5 MG Tab PO SCH (08:56)
[2019-07-30] MEDS: VERIFY FENTANYL PATCH TOP SCH (08:59)
--- NOTE | 2019-07-30 11:05 | DISCH ---
ADDENDUM: Aline was discharged yesterday, but had brown urine, which was found to be secondary to bilirubin of 2.2 and urinary tract infection. She was started on Levaquin. She also had a lot of increased anxiety about going home with these 2 issues. She had a good day yesterday and was started on Levaquin. Afebrile. Labs today; hemoglobin 7.7. Creatinine 1.2. Bilirubin was 2.2 yesterday and was 1.8 this morning. REVIEW OF SYSTEMS: Remainder of review of systems negative for any pertinent positives and negatives. OBJECTIVE: GENERAL: Aline is a 58-year-old female. VITAL SIGNS: TPR at 0316; 98.4, 78, 16. Blood pressure 90/51. HEENT: Negative. NECK: Supple. HEART: Regular rate and rhythm. LUNGS: Clear. ABDOMEN: Dressings dry and intact. Ileostomy intact. She has emptied it 3 times in the past 24 hours. EXTREMITIES: Without peripheral edema. PLAN: Replace Aquacel dressing. Levaquin 500 mg for 4 days. Followup Monday with Shamar Reno MD, which is already scheduled at 10:00 a.m., and she is to arrive at 9:30 a.m. to have lab work done. Next week, the patient was instructed, if she would develop any fevers, she should call the clinic for evaluation and to consider port infection or UTI.
== END 2019-07-30 12:45 | disposition home or self-care (01) | DRG 329 ==
LOC: JP.ED 16:47 → JP.MS 21:12
PROVIDERS: ADMIT Internal Medicine; ATTEND Hospitalist
PROC: 0D1B0Z4 Bypass Ileum to Cutaneous, Open Approach (ICD-10-PCS; principal; 2019-07-22)
PROC: 0D9B0ZZ Drainage of Ileum, Open Approach (ICD-10-PCS; 2019-07-22)
PROC: 0DB80ZZ Excision of Small Intestine, Open Approach (ICD-10-PCS; 2019-07-22)
PROC: 0WQF0ZZ Repair Abdominal Wall, Open Approach (ICD-10-PCS; 2019-07-22)
PROC: 0WQF0ZZ Repair Abdominal Wall, Open Approach (ICD-10-PCS; 2019-07-22)
PROC: 3E0M05Z Introduction of Adhesion Barrier into Peritoneal Cavity, Open Approach (ICD-10-PCS; 2019-07-22)
PROC: 30233N1 Transfusion of Nonautologous Red Blood Cells into Peripheral Vein, Percutaneous Approach (ICD-10-PCS; 2019-07-23)
PROC: 30233N1 Transfusion of Nonautologous Red Blood Cells into Peripheral Vein, Percutaneous Approach (ICD-10-PCS; 2019-07-24)
PROC: 0WQF0ZZ Repair Abdominal Wall, Open Approach (ICD-10-PCS; 2019-07-25)
DX: K94.12 Enterostomy infection (principal); A41.59 Other Gram-negative sepsis; I47.1 Supraventricular tachycardia; K50.90 Crohn's disease, unspecified, without complications; K43.3 Parastomal hernia with obstruction, without gangrene; K43.0 Incisional hernia with obstruction, without gangrene; F11.20 Opioid dependence, uncomplicated; D61.818 Other pancytopenia; K56.51 Intestinal adhesions [bands], with partial obstruction; N39.0 Urinary tract infection, site not specified; N18.3 Chronic kidney disease, stage 3 (moderate); Y83.8 Other surgical procedures as the cause of abnormal reaction of the patient, or of later complication, without mention of misadventure at the time of the procedure; E83.42 Hypomagnesemia; H54.7 Unspecified visual loss; G43.909 Migraine, unspecified, not intractable, without status migrainosus; F41.9 Anxiety disorder, unspecified; E53.8 Deficiency of other specified B group vitamins; Z90.5 Acquired absence of kidney; Z90.49 Acquired absence of other specified parts of digestive tract; Z79.899 Other long term (current) drug therapy; Z90.89 Acquired absence of other organs
CPT/HCPCS: 36415; 36430; 74019; 74019-26; 74177; 80048; 80053; 81001; 82607; 82728; 83605; 83615; 83735; 83880; 84100; 85027; 86156; 86850; 86870; 86900; 86901; 86902; 86920; 86922; 87040; 87077; 87086; 87088; 87186; 88304; 88305; 88307; 94640; 94762; 96361; 96372; 96374; 96376; 99285-25; A9270-GY; C1751; C9113; J0171; J0330; J0500; J1100; J1170; J1642; J2060; J2175; J2185; J2250; J2405; J2704; J2710; J2795; J3010; J3410; J3475; J3490; J7040; J7050; J7120; J7121; J7620-GY; P9016; Q9967

== ENCOUNTER 2019-08-02 11:19 | Inpatient (IN) | payer OTHER ==
[2019-08-02] MEDS ORDERED: Naloxone 0.4 MG/ML SDV IV PRN (11:43)
[2019-08-02] MEDS ORDERED: SUMAtriptan 50 MG Tab PO PRN (11:54)
[2019-08-02] MEDS ORDERED: Ropivacaine 40 ML, dexAMETHasone 8 MG, EPINEPHrine 0.4 MG, Sodium Chloride 0.9% 37.6 ML NERVRT SCH ×4 (12:00)
[2019-08-02] MEDS ORDERED: SELEN IV ONE ×3 (12:30)
[2019-08-02] MEDS ORDERED: COPPER IV ONE ×3 (12:30)
[2019-08-02] MEDS ORDERED: MVI IV ONE ×3 (12:30)
[2019-08-02] MEDS ORDERED: MANG IV ONE ×3 (12:30)
[2019-08-02] MEDS ORDERED: [UNRECOGNIZED DRUG - OTHER] IV ONE ×3 (12:30)
[2019-08-02] MEDS ORDERED: VITAMIN K IV ONE ×3 (12:30)
[2019-08-02] MEDS ORDERED: CHROMIUM IV ONE ×3 (12:30)
[2019-08-02] MEDS: HYDROmorphone/Normal Saline 15 MG/30 ML PCA IV PRN ×2 (13:26→22:09)
[2019-08-02] MEDS: hydrOXYzine HCL 100 MG/2 ML SDV IM PRN ×2 (14:55→19:56)
[2019-08-02] MEDS: Acetaminophen 325 MG Tab PO SCH ×2 (16:52→21:27)
[2019-08-02] MEDS: Dextrose 5%-Lactated Ringers 1,000 ML IV SCH (17:30)
[2019-08-02] MEDS: Melatonin 3 MG Tab PO SCH (21:27)
[2019-08-02] MEDS: OLANZapine 5 MG Tab PO PRN (23:00)
[2019-08-02] MEDS: Cyclobenzaprine 10 MG Tab PO PRN (23:00)
[2019-08-03] MEDS: hydrOXYzine HCL 100 MG/2 ML SDV IM PRN ×4 (00:10→23:01)
[2019-08-03] MEDS: Dextrose 5%-Lactated Ringers 1,000 ML IV SCH ×3 (03:05→21:07)
[2019-08-03] MEDS: Acetaminophen 325 MG Tab PO SCH ×4 (05:13→20:59)
[2019-08-03] MEDS ORDERED: Bupivacaine 0.5% 50 ML MDV ONE (06:38)
[2019-08-03] MEDS ORDERED: Meropenem 500 MG SDV ONE (06:38)
[2019-08-03] MEDS ORDERED: Lidocaine 1% with EPINEPHrine 1:100,000 50 ML MDV ONE (06:39)
[2019-08-03] MEDS ORDERED: Levofloxacin/Dextrose 5%-Water 500 MG in Premix Bag 1 BAG IV SCH (07:00)
[2019-08-03] MEDS ORDERED: Midazolam 1 MG/ML 2 ML SDV ONE (07:06)
[2019-08-03] MEDS ORDERED: Propofol 200 MG/20 ML SDV ONE ×2 (07:06→07:37)
[2019-08-03] MEDS ORDERED: fentaNYL 100 MCG/2 ML SDV ONE (07:06)
[2019-08-03] MEDS: Levofloxacin/Dextrose 5%-Water 500 MG in Premix Bag 1 BAG IV SCH (09:11)
[2019-08-03] MEDS: Magnesium Sulfate/Water 2 GM in Premix Bag 1 BAG IV SCH ×3 (10:56→20:59)
[2019-08-03] MEDS: DULoxetine 30 MG Cap PO SCH (11:01)
[2019-08-03] MEDS ORDERED: Iohexol 300 MG/ML 30 ML Bottle PO ONE (13:21)
[2019-08-03] MEDS: HYDROmorphone/Normal Saline 15 MG/30 ML PCA IV PRN (15:56)
[2019-08-03] MEDS: Cyclobenzaprine 10 MG Tab PO PRN (15:56)
--- NOTE | 2019-08-03 16:48 | CRLCT ---
Indication: Postoperative abdominal pain Technique: Oral contrast only. CT abdomen and pelvis without intravenous contrast. Please note that all CT scans at this facility use dose modulation, iterative reconstruction, and/or weight-based dosing when appropriate to reduce radiation dose to as low as reasonably achievable. Comparison: CT July 20, 2019 Findings: Interval takedown of left lower quadrant ostomy and placement right lower quadrant ostomy compared to the most recent examination. There are postoperative changes to the periumbilical and left lower quadrant abdominal wall with incomplete closure. Just beneath the umbilical incision is a fluid collection containing bubbles of air measuring 6.7 x 2.6 centimeters in transverse dimensions and up to 5.8 centimeters in craniocaudad dimension. Fluid within the midline of the pelvis again noted, however, there is now mild peripheral enhancement along with a small bubble of air. This fluid collection measures 5.9 x 5.2 centimeters. Postoperative changes of bowel resection noted in the lower abdomen. Positive oral contrast noted without obstruction. Hepatosplenomegaly with upper abdominal varices and mild mesenteric adenopathy similar to the prior study. Dependent atelectasis without pleural effusion. Small densities associated with the right kidney without hydronephrosis. Left kidney absent. Adrenal glands normal. Normal pancreas. Gallbladder incompletely distended. No intrinsic bone lesion or fracture. Impression: Postoperative changes to the abdominal wall with construction of right lower quadrant ostomy. No mechanical bowel obstruction. Fluid collection containing bubbles of air and peripheral enhancement beneath the umbilical incision measuring 6.7 x 2.6 x 5.8 centimeters consistent with infected fluid collection or abscess. Fluid collection within the midline of the pelvis again noted, however, there is now peripheral enhancement and a small bubble of internal air suggesting infected fluid. Chronic hepatosplenomegaly with upper abdominal ascites and mild mesenteric adenopathy. Please note that all CT scans at this facility use dose modulation, iterative reconstruction, and/or weight-based dosing when appropriate to reduce radiation dose to as low as reasonably achievable. Dictated by Johnathon Padron MD @ Aug 03 2019 4:34PM Signed by Dr. Johnathon Padron @ Aug 03 2019 4:47PM
[2019-08-03] MEDS: Melatonin 3 MG Tab PO SCH (20:58)
[2019-08-03] MEDS: OLANZapine 5 MG Tab PO PRN (20:58)
[2019-08-04] MEDS: Cyclobenzaprine 10 MG Tab PO PRN ×3 (00:01→19:26)
[2019-08-04] MEDS: HYDROmorphone/Normal Saline 15 MG/30 ML PCA IV SCH ×3 (02:12→22:13)
[2019-08-04] MEDS: Acetaminophen 325 MG Tab PO SCH ×4 (05:00→21:13)
[2019-08-04] MEDS: hydrOXYzine HCL 100 MG/2 ML SDV IM PRN ×4 (05:00→21:14)
[2019-08-04] MEDS: Magnesium Sulfate/Water 2 GM in Premix Bag 1 BAG IV SCH ×4 (05:00→21:13)
[2019-08-04] MEDS: DULoxetine 30 MG Cap PO SCH (09:21)
--- NOTE | 2019-08-04 09:21 | HP ---
HISTORY OF PRESENT ILLNESS: The patient presented to the clinic today after a complex recent abdominal surgery with quite a bit of pain in her incision and overall picture of failure to thrive. She is status post drainage of para-ileostomy abscess recently along with movement of the ileostomy from the left to the right side, resection of small bowel stricture plasty, and repair of the para-ileostomy hernia and repair of some incisional hernia in the midline. She was subsequently discharged home. At the time of discharge, her hemoglobin was 8.6. She developed ongoing continued pain in the incision and at this point will be admitted for exploration of that incision tomorrow. There appeared to be some focal necrosis of the skin overlying the suspected probably some fascial necrosis locally as well. She has had little bit of thin drainage from the wound but this does not appear to be grossly infected, i.e., there is no surrounding redness or evidence of cellulitis, and she has been afebrile. The ileostomy wound was also closed on the left side and that wound is much less painful, but will likely be best explored as well. PAST MEDICAL HISTORY: Multiple abdominal surgeries and bowel obstructions. She recently had an ileostomy placed after total partial colectomy for Crohn disease 40 years ago and this most recent ileostomy was in fact the 4th ileostomy as they are being removed periodically through the years. She has history of migraines and some anxiety and recently noted to have low magnesium and generalized malnourished condition. PAST SURGICAL HISTORY: Cardiac ablation for arrhythmias, T and A, multiple hernia repairs. SOCIAL HISTORY: Includes never having smoked. Alcohol use is rare. FAMILY HISTORY: No history of abnormal bleeding or anesthetic problems. MEDICATIONS: As per the attached sheets. ALLERGIES: PER THE ATTACHED SHEETS. REVIEW OF SYSTEMS: The patient other than for pain has been generally doing fairly well. Her most recent ileostomy is working satisfactorily. PHYSICAL EXAMINATION: VITAL SIGNS: The patient is afebrile with stable vital signs. HEENT: Shows some degree of dehydration, otherwise unremarkable. HEART: Regular rhythm. Normal S1 and S2. LUNGS: Clear. BREASTS: Deferred. ABDOMEN: Shows the midline incision with the otherwise intact ileostomy. This has a little bit of thin drainage on its midportion and some focal areas of skin necrosis along the side. No surrounding redness or evidence of cellulitis per se. PELVIC: Deferred. RECTAL: Not possible due to the previous total proctocolectomy. LABORATORY DATA: Show a white count of 6.1; hemoglobin 8.7, which is roughly where it had been at the time of recent discharge. Electrolytes are unremarkable. Creatinine is 1.43, which the patient having been status post a previous left nephrectomy is within the normal range. Albumin is slightly low at 3.3. Liver function tests were unremarkable. IMPRESSION: Painful incision with focal necrosis. The plan will be to proceed with admission with hydration and continuation of the Levaquin that the patient has done prophylactically, and exploration of the wound tomorrow. With hydration, her hemoglobin may drop somewhat further. If this is the case, we will need to work that up as well as provide some transfusions. Shamar Reno MD /[id number]
[2019-08-04] MEDS: Levofloxacin/Dextrose 5%-Water 500 MG in Premix Bag 1 BAG IV SCH (09:22)
[2019-08-04] MEDS: Potassium Phos in 0.9 % NaCl 15 MMOL in Premix Bag 1 BAG IV SCH ×6 (10:37→16:50)
--- NOTE | 2019-08-04 10:55 | PN ---
DATE OF SERVICE: 08/03/2019 The patient has been afebrile with stable vital signs. Bicarb is noted to be somewhat low this morning in the 4 range. Hemoglobin dropped to 6 with hydration. Otherwise, has been clinically stable. The plan is to proceed with exploration of the wound with local plus IV sedation. Will give a TAP block at the same time. Required the need to have some debridement of the wound based on recent focal skin necrosis of the skin with a hemoglobin of 6, so we will plan to get a CT of the abdomen tomorrow to make sure there is not some postoperative hematoma that has developed in the interim and then probably proceed with an upper endoscopy on Monday. The stool has been completely green with no black or bloody stool being reported, so one would think if this is GI tract related, those would be findings present, but we will check the stomach nonetheless probably on Monday and obtain the CT scan of the abdomen tomorrow. She will be receiving 2 units of packed RBCs today as well. Shamar Reno MD /[id number]
[2019-08-04] MEDS: Dextrose 5%-Lactated Ringers 1,000 ML IV SCH (19:50)
[2019-08-04] MEDS: Melatonin 3 MG Tab PO SCH (21:13)
[2019-08-04] MEDS: OLANZapine 5 MG Tab PO PRN (21:14)
[2019-08-05] MEDS: Acetaminophen 325 MG Tab PO SCH ×4 (04:31→22:22)
[2019-08-05] MEDS: Cyclobenzaprine 10 MG Tab PO PRN ×3 (04:32→22:21)
[2019-08-05] MEDS: Magnesium Sulfate/Water 2 GM in Premix Bag 1 BAG IV SCH ×3 (04:32→20:48)
[2019-08-05] MEDS: hydrOXYzine HCL 100 MG/2 ML SDV IM PRN ×3 (04:32→17:54)
[2019-08-05] MEDS: Dextrose 5%-Lactated Ringers 1,000 ML IV SCH ×2 (04:41→20:47)
[2019-08-05] MEDS ORDERED: Meropenem 500 MG SDV ONE (07:29)
[2019-08-05] MEDS ORDERED: Glycopyrrolate 0.2 MG/ML 5 ML MDV ONE (07:38)
[2019-08-05] MEDS ORDERED: Neostigmine Methylsulfate 1 MG/ML 5 ML Syringe ONE (07:38)
[2019-08-05] MEDS ORDERED: Rocuronium 50 MG/5 ML Vial ONE (07:38)
[2019-08-05] MEDS ORDERED: Ondansetron 4 MG/2 ML SDV ONE (07:38)
[2019-08-05] MEDS ORDERED: Propofol 200 MG/20 ML SDV ONE (07:38)
[2019-08-05] MEDS ORDERED: Dexamethasone 4 MG/ML SDV ONE (07:38)
[2019-08-05] MEDS ORDERED: Succinylcholine 200 MG/10 ML MDV ONE (07:38)
[2019-08-05] MEDS ORDERED: fentaNYL 250 MCG/5 ML SDV ONE (07:39)
[2019-08-05] MEDS ORDERED: Ketamine 500 MG/5 ML MDV IV SCH (08:00)
[2019-08-05] MEDS ORDERED: Ropivacaine 40 ML, dexAMETHasone 8 MG, EPINEPHrine 0.4 MG, Sodium Chloride 0.9% 37.6 ML NERVRT SCH ×4 (08:00)
[2019-08-05] MEDS ORDERED: Ketamine 50 MG in Sodium Chloride 0.9% 49.5 ML IV SCH (08:00)
[2019-08-05] MEDS ORDERED: fentaNYL 100 MCG/2 ML SDV ONE (10:29)
[2019-08-05] MEDS ORDERED: Furosemide 20 MG/2 ML VIAL IVPUSH ONE (11:25)
[2019-08-05] MEDS: DULoxetine 30 MG Cap PO SCH (12:00)
[2019-08-05] MEDS: Levofloxacin/Dextrose 5%-Water 500 MG in Premix Bag 1 BAG IV SCH (12:01)
--- NOTE | 2019-08-05 14:35 | PN ---
DATE OF SERVICE: 08/05/2019 SUBJECTIVE: Aline was admitted on 08/02/2019. She is n.p.o., scheduled for exploratory laparotomy for abdominal abscess. She states her pain is controlled. Oral intake before n.p.o. was 1350, urine output 1250. Total output out of ileostomy was 575. Vital signs have been stable and afebrile. Labs; hemoglobin this morning 7.5, creatinine 1.3, and total bilirubin 2.7, BNP 788, albumin 2, total protein 5.8. She has no other concerns or questions. Remainder of review of systems negative for any pertinent positives or negatives. OBJECTIVE: GENERAL: Aline Foley is a 58-year-old female, she is alert, orientated, pale. VITAL SIGNS: TPR at 0446 is 97.5, 77, 16. Blood pressure 107/56. HEENT: Negative. NECK: Supple. HEART: Regular rate and rhythm. LUNGS: Clear. ABDOMEN: Generalized tenderness. Ileostomy intact. EXTREMITIES: Without peripheral edema. ASSESSMENT: 1. Hemoglobin 7.5. 2. Focal necrosis of the skin overlying suspected probable fascial necrosis. 3. Elevated bilirubin. PLAN: Orders will be written postoperatively. Questions were answered. We will evaluate p.r.n. or in a.m. Aline Landeros PA-C /[id number]
[2019-08-05] MEDS: HYDROmorphone/Normal Saline 15 MG/30 ML PCA IV SCH ×2 (16:11→23:19)
[2019-08-05] MEDS: Melatonin 3 MG Tab PO SCH (20:48)
[2019-08-05] MEDS ORDERED: hydrOXYzine HCl 10 MG Tab PO PRN (21:39)
[2019-08-05] MEDS: OLANZapine 5 MG Tab PO PRN (22:21)
[2019-08-05] MEDS ORDERED: hydrOXYzine HCl 25 MG Tab PO PRN (22:40)
[2019-08-06] MEDS: Magnesium Sulfate/Water 2 GM in Premix Bag 1 BAG IV SCH ×2 (03:02→07:20)
[2019-08-06] MEDS: Acetaminophen 325 MG Tab PO SCH ×4 (03:02→21:34)
[2019-08-06] MEDS: Dextrose 5%-Lactated Ringers 1,000 ML IV SCH ×2 (07:14→17:38)
[2019-08-06] MEDS: HYDROmorphone/Normal Saline 15 MG/30 ML PCA IV PRN ×2 (09:10→20:11)
[2019-08-06] MEDS: Levofloxacin/Dextrose 5%-Water 500 MG in Premix Bag 1 BAG IV SCH (09:19)
[2019-08-06] MEDS: DULoxetine 30 MG Cap PO SCH (09:19)
[2019-08-06] MEDS ORDERED: Furosemide 20 MG/2 ML VIAL IVPUSH ONE (10:00)
[2019-08-06] MEDS: hydrOXYzine HCl 25 MG Tab PO PRN ×3 (11:32→20:34)
--- NOTE | 2019-08-06 11:46 | PN ---
DATE OF SERVICE: 08/06/2019 SUBJECTIVE: Aline is postoperative day #1. She has been having dressing changes. Pain has been controlled. Vital signs have been stable. She has been afebrile. Regular diet. Oral intake is 1350, ostomy put out 575, and urine output 1250 of a tea-colored urine. [place] drain 1 and 2 put out 45 and 15 of a light red drainage. Aline did receive 2 units of packed red blood cells for hemoglobin of 7.5, hemoglobin this morning 8.3, bilirubin 2.4, down from 2.6. BNP 1021. Remainder of review of systems negative for any pertinent positives and negatives. OBJECTIVE: GENERAL: Aline is a 58-year-old female. She is sleepy this morning. VITAL SIGNS: TPR at 0716; 97.2, 85, 18. Blood pressure 96/48. HEENT: Negative. NECK: Supple. HEART: Regular rate and rhythm. LUNGS: Clear. ABDOMEN: Dressing dry and intact. Ileostomy in place. EXTREMITIES: Without peripheral edema. ASSESSMENT: 1. Exploratory laparotomy with drainage of subfascial intraabdominal abscess. 2. Drainage of retroperitoneal abdominal abscess. 3. Debridement of abdominal wall for superior intraabdominal and pelvic retroperitoneal abscesses and focal necrosis. Date of surgery: 08/05/2019. Surgeon: Shamar Reno MD. PLAN: 1. Scheduled and have consent signed for EGD with possible biopsies, 08/07/2019 at 0715, IV local sedation, n.p.o. after midnight. Shamar Reno MD. 2. Robinul 0.4 mg IV on-call to OR 08/07/2019, 0715. 3. Scheduled with OR. 4. Decrease CREDIT ASSESSMENT ANALYST settings to 0.4. 5. Decrease Vistaril to 50 mg oral every 4 hours. 6. Continue to change dressings b.i.d. as directed. 7. Give 1 unit of packed red blood cells now. 8. Lasix 20 mg IV after packed red blood cells are infused. 9. May saline lock peripheral IV after the blood has been transfused. 10.Consult Dr. Dickerson for hemolysis. 11.Check CBC, CMP, mag, phos, and BNP in a.m. 12.Good pulmonary toilet. 13.We will evaluate p.r.n. or in a.m. Aline Landeros, PA-C /[id number]
[2019-08-06] MEDS ORDERED: Folic Acid 50 MG/10 ML MDV IV SCH (15:45)
[2019-08-06] MEDS: Folic Acid 1 MG in Sodium Chloride 0.9% 50 ML IV SCH (16:35)
--- NOTE | 2019-08-06 17:06 | PCM.CONS ---
H&P History of Present Illness - General Date of Service: 08/06/19 Admit Problem/Dx: Admission Diagnosis/Problem Admission Diagnosis/Problem Abdominal pain Source of Information: Patient, Old Records, Provider, RN Notes Reviewed History Limitations: Reports: No Limitations - History of Present Illness Initial Comments - Free Text/Narative: Ms. Foley is a 58-year-old woman who I been asked to see by Dr. Reno concerning anemia. Ms. Foley has had 2 hospitalizations within the past several weeks. Initial hospitalization for is for probable intra-abdominal infection and partial bowel obstruction, she was managed conservatively with bowel rest and antibiotics. She improved and was discharged home, within 24 hours she was readmitted with recurrent symptoms of abdominal pain nausea and vomiting. She was seen and evaluated by Dr. Reno and did undergo an exploratory laparotomy. She was felt to have infection at the previous ileostomy site, this site was taken down and a new ileostomy created on the right abdomen. She was hospitalized at that time for over a week and during that period of time was noted to be anemic requiring blood transfusions. She was also noted to be pancytopenic although white blood cell count and platelet counts improved through the hospitalization. She was discharged home but returned after approximately 1 week with recurrent fever and abdominal pain. She was found to have intra-abdominal abscess on CT scan and was taken to the operating room by Dr. Reno for drainage. During this hospitalization she was found to be anemic on admission with a hemoglobin of 6.0. Since then she has been transfused 6 units of red blood cells and her hemoglobin is currently 8.3. Following transfusion nursing staff has noted bloody appearing urine and she is also developed an increase in her hemoglobin level following transfusions. Incisional Pain Score (Numeric/FACES): 9 - Related Data Allergies/Adverse Reactions: Allergies Allergy/AdvReac Type Severity Reaction Status Date / Time lorazepam AdvReac Intermediate Confusion Verified 08/02/19 12:32 Home Medications: Home Meds Acetaminophen [Acetaminophen Extra Strength] 1,000 mg PO Q4HR PRN 06/17/19 [ History] Cyanocobalamin (Vitamin B-12) [Cyanocobalamin Injection] 1 ml IM ASDIRECTED 12/28 [History] DULoxetine [Cymbalta] 60 mg PO DAILY 06/17/19 [History] Imipramine HCl 200 mg PO BEDTIME 06/17/19 [History] Magnesium Chloride [Mag Delay] 192 mg PO TID 06/17/19 [History] Melatonin 3 mg PO BEDTIME 06/17/19 [History] Nystatin [Nystatin Oint] 1 dose TOP BID PRN 06/17/19 [History] OLANZapine [ZyPREXA] 5 mg PO Q12HR PRN 06/17/19 [History] Ondansetron [Zofran ODT] 4 mg PO Q4HR PRN 06/17/19 [History] Pedi Multivit No.25/Folic Acid [Flintstones Multivit Chew Tab] 1 tab PO DAILY [History] SUMAtriptan [Imitrex] 50 mg PO BTNUNITS PRN 06/17/19 [History] tiZANidine [Zanaflex] 4 mg PO BID PRN 06/17/19 [History] HYDROmorphone [Dilaudid] 6 mg PO Q6H PRN #50 tablet 07/29/19 [Rx] Levofloxacin [Levaquin] 500 mg PO DAILY #4 tablet 07/29/19 [Rx] hydrOXYzine HCL [hydrOXYzine] 25 - 50 mg PO Q4H PRN #50 tablet 07/29/19 [Rx] Past Medical History HEENT History: Reports: Impaired Vision Cardiovascular History: Reports: None Gastrointestinal History: Reports: Bowel Obstruction, Other (See Below) Other Gastrointestinal History: hernia, multiple bowel surgerys Genitourinary History: Reports: None 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: Neurological History: Reports: Migraines Psychiatric History: Reports: Anxiety Insulin Pump Model and Associate Music Professor: no Hematologic History: Reports: B12 Deficiency - Infectious Disease History Infectious Disease History: Reports: Chicken Pox, Mononucleosis - Past Surgical History Head Surgeries/Procedures: Reports: None HEENT Surgical History: Reports: Adenoidectomy, Tonsillectomy Cardiovascular Surgical History: Reports: Cardiac Ablation GI Surgical History: Reports: Appendectomy, Colonoscopy, EGD, Other (See Below) Other GI Surgeries/Procedures: hernia, has ileostomy Female Surgical History: Reports: Hysterectomy Neurological Surgical History: Reports: None Dermatological Surgical History: Reports: None Social & Family History - Family History Family Medical History: Noncontributory - Tobacco Use Smoking Status *Q: Never Smoker Second Hand Smoke Exposure: No - Caffeine Use Caffeine Use: Reports: Soda - Recreational Drug Use Recreational Drug Use: No H&P Review of Systems - Review of Systems: Review Of Systems: See Below General: Reports: Malaise, Weakness. Denies: Fever, Chills HEENT: Reports: No Symptoms Pulmonary: Reports: No Symptoms Cardiovascular: Reports: No Symptoms Gastrointestinal: Reports: Abdominal Pain. Denies: Difficulty Swallowing, Distension, Hematemesis, Hematochezia, Melena, Nausea, Vomiting Genitourinary: Reports: No Symptoms Musculoskeletal: Reports: No Symptoms Skin: Reports: No Symptoms Psychiatric: Reports: No Symptoms Neurological: Reports: No Symptoms Hematologic/Lymphatic: Reports: No Symptoms Immunologic: Reports: No Symptoms Exam - Exam Exam: See Below - Vital Signs Vital Signs: Last Vital Signs Temp 97.0 F 08/06/19 16:47 Pulse 78 08/06/19 16:47 Resp 18 08/06/19 16:47 BP 103/45 L 08/06/19 16:47 Pulse Ox 95 08/06/19 16:47 Weight: 176 lb - Exam Neck: Supple, Trachea Midline, +2 Carotid Pulse wo Bruit Lungs: Clear to Auscultation, Normal Respiratory Effort Cardiovascular: Regular Rate, Regular Rhythm, Normal S1, Normal S2. No: Systolic Murmur, Diastolic Murmur GI/Abdominal Exam: Soft, No Organomegaly, Tender. No: Distended, Guarding, Rigid, Rebound Extremities: Non-Tender, No Pedal Edema Skin: Warm, Dry - Patient Data Lab Results Last 24 hrs: Laboratory Results - last 24 hr 08/02/19 08/05/19 08/06/19 Range/Units 12:13 04:00 04:20 WBC 5.5 (4.5-11.0) K/uL RBC 3.02 L (3.30-5.50) M/uL Hgb 8.3 L (12.0-15.0) g/dL Hct 26.5 L (36.0-48.0) % MCV 88 (80-98) fL MCH 28 (27-31) pg MCHC 31 L (32-36) % Plt Count 156 (150-400) K/uL Percent Retic (0.5-1.5) % Sodium (140-148) mmol/L Potassium (3.6-5.2) mmol/L Chloride (100-108) mmol/L Carbon Dioxide (21-32) mmol/L Anion Gap (5.0-14.0) mmol/L BUN (7-18) mg/dL Creatinine (0.6-1.0) mg/dL Est Cr Clr Drug Dosing mL/min Estimated GFR (MDRD) (>60) Glucose (74-106) mg/dL Calcium (8.5-10.1) mg/dL Phosphorus (2.5-4.9) mg/dL Iron (50-170) ug/dL TIBC (250-450) ug/dl % Saturation (20-55) % Total Bilirubin (0.2-1.0) mg/dL Direct Bilirubin (0.0-0.2) mg/dL AST (15-37) U/L ALT (12-78) U/L Alkaline Phosphatase (46-116) U/L Lactate Dehydrogenase (82-234) U/L NT-Pro-B Natriuret Pep (5-125) pg/mL Total Protein (6.4-8.2) g/dL Albumin (3.4-5.0) g/dL Globulin (2.3-3.5) g/dL Albumin/Globulin Ratio (1.2-2.2) Vitamin B12 (193-986) pg/ml Folate (8.6-58.9) ng/ml Blood Type A POSITIVE A POSITIVE Gel Antibody Screen Positive A* Positive A* Antibody Identification Anti-K Crossmatch See Detail See Detail 08/06/19 08/06/19 08/06/19 Range/Units 04:20 07:57 10:00 WBC (4.5-11.0) K/uL RBC (3.30-5.50) M/uL Hgb (12.0-15.0) g/dL Hct (36.0-48.0) % MCV (80-98) fL MCH (27-31) pg MCHC (32-36) % Plt Count (150-400) K/uL Percent Retic 5.0 H (0.5-1.5) % Sodium 139 L (140-148) mmol/L Potassium 4.7 (3.6-5.2) mmol/L Chloride 104 (100-108) mmol/L Carbon Dioxide 26 (21-32) mmol/L Anion Gap 13.7 (5.0-14.0) mmol/L BUN 30 H (7-18) mg/dL Creatinine 1.4 H (0.6-1.0) mg/dL Est Cr Clr Drug Dosing 42.08 mL/min Estimated GFR (MDRD) 38 L (>60) Glucose 161 H (74-106) mg/dL Calcium 8.0 L (8.5-10.1) mg/dL Phosphorus 3.8 (2.5-4.9) mg/dL Iron (50-170) ug/dL TIBC (250-450) ug/dl % Saturation (20-55) % Total Bilirubin 2.4 H (0.2-1.0) mg/dL Direct Bilirubin (0.0-0.2) mg/dL AST 81 H (15-37) U/L ALT 24 (12-78) U/L Alkaline Phosphatase 79 (46-116) U/L Lactate Dehydrogenase > 1000 H (82-234) U/L NT-Pro-B Natriuret Pep 1021 H (5-125) pg/mL Total Protein 6.1 L (6.4-8.2) g/dL Albumin 2.1 L (3.4-5.0) g/dL Globulin 4.0 H (2.3-3.5) g/dL Albumin/Globulin Ratio 0.5 L (1.2-2.2) Vitamin B12 (193-986) pg/ml Folate (8.6-58.9) ng/ml Blood Type Gel Antibody Screen Antibody Identification Crossmatch 08/06/19 08/06/19 Range/Units 10:00 10:00 WBC (4.5-11.0) K/uL RBC (3.30-5.50) M/uL Hgb (12.0-15.0) g/dL Hct (36.0-48.0) % MCV (80-98) fL MCH (27-31) pg MCHC (32-36) % Plt Count (150-400) K/uL Percent Retic (0.5-1.5) % Sodium (140-148) mmol/L Potassium (3.6-5.2) mmol/L Chloride (100-108) mmol/L Carbon Dioxide (21-32) mmol/L Anion Gap (5.0-14.0) mmol/L BUN (7-18) mg/dL Creatinine (0.6-1.0) mg/dL Est Cr Clr Drug Dosing mL/min Estimated GFR (MDRD) (>60) Glucose (74-106) mg/dL Calcium (8.5-10.1) mg/dL Phosphorus (2.5-4.9) mg/dL Iron 99 (50-170) ug/dL TIBC 186 L (250-450) ug/dl % Saturation 53 (20-55) % Total Bilirubin (0.2-1.0) mg/dL Direct Bilirubin 0.55 H (0.0-0.2) mg/dL AST (15-37) U/L ALT (12-78) U/L Alkaline Phosphatase (46-116) U/L Lactate Dehydrogenase (82-234) U/L NT-Pro-B Natriuret Pep (5-125) pg/mL Total Protein (6.4-8.2) g/dL Albumin (3.4-5.0) g/dL Globulin (2.3-3.5) g/dL Albumin/Globulin Ratio (1.2-2.2) Vitamin B12 369 (193-986) pg/ml Folate 4.0 L (8.6-58.9) ng/ml Blood Type Gel Antibody Screen Antibody Identification Crossmatch Result Diagrams: 08/06/19 04:20 08/06/19 04:20 Eliud Results Last 24 hrs: Microbiology 08/05/19 09:55 Gram Stain - Final Abdomen - Abscess Wound Culture - Preliminary 08/05/19 09:57 Gram Stain - Final Abdomen - Abscess Wound Culture - Preliminary Sepsis Event Note - Evaluation Sepsis Screening Result: No Definite Risk - Focused Exam Vital Signs: Vital Signs Temp Pulse Resp BP Pulse Ox 08/06/19 16:47 97.0 F 78 18 103/45 L 95 08/06/19 14:32 94 L 08/06/19 13:15 96.8 F L 86 16 96/62 96 08/06/19 07:26 96 08/06/19 07:16 97.2 F 85 18 96/48 L 98 Date Exam was Performed: 08/06/19 Time Exam was Performed: 17:01 Consult PN Assessment/Plan Problem List Initiated/Reviewed/Updated: Yes My Orders Last 24 Hours: My Active Orders 08/06/19 10:00 COPPER, SERUM Routine DIRECT STEVEN [BBK] Routine HAPTOGLOBIN Routine TRANSFUSION REACTION [BBK] Routine 08/06/19 16:00 Folic Acid 1 mg Sodium Chloride 0.9% [Normal Saline] 50 ml IV Q24H 08/07/19 05:11 FERRITIN [CHEM] AM Plan: ASSESSMENT AND RECOMMENDATIONS ANEMIA-persistent anemia despite transfusion of 6 units of red blood cells over the past 4 days. Evidence of hemolysis with increase in bilirubin following transfusion as well as appearance of blood in the urine. 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 She denies any previous history of hemolytic anemia or significant family history of hemolytic anemia that she is aware of. Evaluation thus far shows an LDH level of greater than 1000 and a reticulocyte count of 5.0. Total bilirubin is 2.4 with an indirect of 1.85, haptoglobin and peripheral smear are pending Steven test direct anti-globin is negative iron B12 levels are normal folic acid level found to be low at 4.0. -Hold on any further blood transfusions -Further discussion with Heme/Onc in a.m. concerning follow-up hemoglobin level and review of peripheral smear -CBC and ferritin in a.m. Requesting Provider: SCOTT Date Consult Requested: 08/06/19 Reason for Consult: Possible hemolytic anemia Patient History Reviewed: Yes Notified Requestor: Yes
[2019-08-06] MEDS: Cyclobenzaprine 10 MG Tab PO PRN (17:44)
[2019-08-06] MEDS: Melatonin 3 MG Tab PO SCH (20:34)
[2019-08-07] MEDS: hydrOXYzine HCl 25 MG Tab PO PRN ×5 (01:17→20:59)
[2019-08-07] MEDS: Cyclobenzaprine 10 MG Tab PO PRN ×3 (01:34→18:41)
[2019-08-07] MEDS: Acetaminophen 325 MG Tab PO SCH ×4 (03:40→21:49)
[2019-08-07] MEDS: Dextrose 5%-Lactated Ringers 1,000 ML IV SCH ×2 (03:42→15:58)
[2019-08-07] MEDS ORDERED: Midazolam 1 MG/ML 2 ML SDV ONE (06:54)
[2019-08-07] MEDS ORDERED: fentaNYL 100 MCG/2 ML SDV ONE (06:54)
[2019-08-07] MEDS ORDERED: Propofol 200 MG/20 ML SDV ONE (06:55)
[2019-08-07] MEDS ORDERED: Glycopyrrolate 0.2 MG/ML 2 ML SDV IVPUSH ONE (07:15)
[2019-08-07] MEDS: Levofloxacin/Dextrose 5%-Water 500 MG in Premix Bag 1 BAG IV SCH (09:21)
[2019-08-07] MEDS: DULoxetine 30 MG Cap PO SCH (09:21)
--- NOTE | 2019-08-07 10:19 | PN ---
DATE OF SERVICE: 08/07/2019 SUBJECTIVE: Aline's hemoglobin this morning was 7.4, creatinine 1.2, magnesium 2, bilirubin 1.1, and BNP 455. She did sleep well during the night, had increased amount of pain with dressing changes. Vital signs have been stable. She is n.p.o. for an EGD this morning. REVIEW OF SYSTEMS: The remainder of the review of systems is negative for any pertinent positives and negatives. OBJECTIVE: GENERAL: Aline Foley is a 58-year-old female. VITAL SIGNS: TPR at 0750 hours: 97.2, 96, and 16. Blood pressure 127/68. HEENT: Negative. NECK: Supple, HEART: Regular rate and rhythm. LUNGS: Clear. ABDOMEN: Dressings dry and intact. Ileostomy bag is intact. EXTREMITIES: Without peripheral edema. ASSESSMENT: 1. Exploratory laparotomy: a. Drainage of a subfascial intraabdominal abscess. b. Drainage of a retroperitoneal abdominal abscess. c. Debridement of abdominal wall for superior intraabdominal and pelvic retroperitoneal abscesses and focal necrosis. Date of surgery: 08/05/2019. Surgeon: Shamar Reno MD. 1. Persistent anemia despite transfusion of 6 units of red blood cells. PLAN: 1. Check CBC, CMP, mag, phos, and BNP in the a.m. Orders will be written post EGD. 2. We will evaluate p.r.n. or in the a.m. Aline Landeros PA-C /[id number]
[2019-08-07] MEDS: HYDROmorphone/Normal Saline 15 MG/30 ML PCA IV PRN (12:53)
[2019-08-07] MEDS: Folic Acid 1 MG in Sodium Chloride 0.9% 50 ML IV SCH (15:58)
--- NOTE | 2019-08-07 17:09 | PCM.CONSN ---
- General Info Date of Service: 08/07/19 Subjective Update: Ms. Foley been stable since yesterday, continues to report significant abdominal wall pain related to recent surgery. Hemoglobin has dropped 1 g from yesterday to 7.4. Denies lightheadedness or increased shortness of breath. Bilirubin has improved from yesterday. Functional Status: Reports: Ambulating - Review of Systems General: Reports: Weakness, Fatigue. Denies: Fever, Chills Pulmonary: Reports: No Symptoms Cardiovascular: Reports: No Symptoms Gastrointestinal: Denies: Diarrhea, Difficulty Swallowing, Nausea, Vomiting - Patient Data Vitals - Most Recent: Last Vital Signs Temp 99.0 F 08/07/19 15:58 Pulse 93 08/07/19 15:38 Resp 16 08/07/19 15:38 BP 98/69 08/07/19 15:38 Pulse Ox 97 08/07/19 15:38 Weight - Most Recent: 176 lb I&O - Last 24 Hours: Intake & Output 08/07/19 08/07/19 08/07/19 06:59 14:59 22:59 Intake Total 1143 600 Output Total 725 500 Balance 418 100 Lab Results Last 24 Hours: Laboratory Results - last 24 hr 08/07/19 08/07/19 08/07/19 Range/Units 04:19 04:19 04:26 WBC 3.7 L (4.5-11.0) K/uL RBC 2.72 L (3.30-5.50) M/uL Hgb 7.4 L (12.0-15.0) g/dL Hct 24.8 L (36.0-48.0) % MCV 91 (80-98) fL MCH 27 (27-31) pg MCHC 30 L (32-36) % Plt Count 148 L (150-400) K/uL Sodium 142 (140-148) mmol/L Potassium 4.0 (3.6-5.2) mmol/L Chloride 106 (100-108) mmol/L Carbon Dioxide 27 (21-32) mmol/L Anion Gap 9.4 (5.0-14.0) mmol/L BUN 19 H (7-18) mg/dL Creatinine 1.2 H (0.6-1.0) mg/dL Est Cr Clr Drug Dosing 49.09 mL/min Estimated GFR (MDRD) 46 L (>60) Glucose 97 (74-106) mg/dL Calcium 7.7 L (8.5-10.1) mg/dL Phosphorus 3.8 (2.5-4.9) mg/dL Magnesium 2.0 D (1.8-2.4) mg/dL Ferritin 1846 H (8-388) ng/ml Total Bilirubin 1.1 H D (0.2-1.0) mg/dL AST 35 (15-37) U/L ALT 21 (12-78) U/L Alkaline Phosphatase 68 (46-116) U/L NT-Pro-B Natriuret Pep 455 H (5-125) pg/mL Total Protein 5.5 L (6.4-8.2) g/dL Albumin 2.0 L (3.4-5.0) g/dL Globulin 3.5 (2.3-3.5) g/dL Albumin/Globulin Ratio 0.6 L (1.2-2.2) Eliud Results Last 24 Hours: Microbiology 08/05/19 09:57 Gram Stain - Final Abdomen - Abscess Wound Culture - Preliminary Anaerobic Culture - Preliminary NO GROWTH AFTER 2 DAYS 08/05/19 09:55 Gram Stain - Final Abdomen - Abscess Wound Culture - Preliminary Anaerobic Culture - Preliminary NO GROWTH AFTER 2 DAYS Med Orders - Current: Current Medications Acetaminophen (Tylenol) 650 mg PO Q6H [facility] Last Admin: 08/07/19 15:58 Dose: 650 mg Cyclobenzaprine HCl (Flexeril) 10 mg PO Q8H PRN PRN Reason: MUSCLE SPASM Last Admin: 08/07/19 10:31 Dose: 10 mg Duloxetine HCl (Cymbalta) 60 mg PO DAILY [facility] Last Admin: 08/07/19 09:21 Dose: 60 mg Hydromorphone HCl (Dilaudid Supervisor Paper Machine 15 Mg In Ns 30 Ml) 0 mg IV ASDIRECTED PRN; Protocol PRN Reason: PAIN Last Admin: 08/07/19 12:53 Dose: 15 mg Hydroxyzine HCl (Atarax) 50 mg PO Q4H PRN PRN Reason: Pain Last Admin: 08/07/19 14:45 Dose: 50 mg Dextrose/Lactated Ringer's (Dextrose 5%-Lactated Ringers) 1,000 mls @ 100 mls/ hr IV ASDIRECTED [facility]SIE Last Admin: 08/07/19 15:58 Dose: 100 mls/hr Levofloxacin/Dextrose 500 mg/ (Premix) 100 mls @ 100 mls/hr IV Q24H [facility] Last Admin: 08/07/19 09:21 Dose: 100 mls/hr Folic Acid 1 mg/ Sodium (Chloride) 50.2 mls @ 200 mls/hr IV Q24H [facility] Last Admin: 08/07/19 15:58 Dose: 200 mls/hr Imipramine HCl (Imipramine Hcl) 200 mg PO BEDTIME [facility] Last Admin: 08/06/19 20:34 Dose: 200 mg Melatonin (Melatonin) 9 mg PO BEDTIME [facility] Last Admin: 08/06/19 20:34 Dose: 9 mg Naloxone HCl (Narcan) 0.1 mg IV ASDIRECTED PRN PRN Reason: decreased respiratory rate Olanzapine (Zyprexa) 5 mg PO Q12H PRN PRN Reason: ANX Last Admin: 08/05/19 22:21 Dose: 5 mg Sumatriptan Succinate (Imitrex) 50 mg PO ASDIRECTED PRN PRN Reason: HEADACHE Discontinued Medications Bupivacaine HCl (Marcaine 0.5%) Confirm Administered Dose 50 ml .ROUTE .STK-MED ONE Stop: 08/03/19 06:39 Ropivacaine 40 ml/Dexamethasone 8 mg/Epinephrine HCl 0.4 mg/ Sodium Chloride 37.6 ml 0 ml NERVRT ASDIRECTED [facility] Last Admin: 08/03/19 07:25 Dose: 80 syringe Ropivacaine 40 ml/Dexamethasone 8 mg/Epinephrine HCl 0.4 mg/ Sodium Chloride 37.6 ml 0 ml NERVRT ASDIRECTED [facility] Last Admin: 08/05/19 10:38 Dose: 80 syringe Dexamethasone (Dexamethasone) Confirm Administered Dose 4 mg .ROUTE .STK-MED ONE Stop: 08/05/19 07:39 Fentanyl (Sublimaze) Confirm Administered Dose 100 mcg .ROUTE .STK-MED ONE Stop: 08/03/19 07:07 Fentanyl (Sublimaze) Confirm Administered Dose 250 mcg .ROUTE .STK-MED ONE Stop: 08/05/19 07:40 Fentanyl (Sublimaze) Confirm Administered Dose 100 mcg .ROUTE .STK-MED ONE Stop: 08/05/19 10:30 Fentanyl (Sublimaze) Confirm Administered Dose 100 mcg .ROUTE .STK-MED ONE Stop: 08/07/19 06:55 Furosemide (Lasix) 20 mg IVPUSH ONETIME ONE Stop: 08/05/19 11:26 Last Admin: 08/05/19 11:14 Dose: 20 mg Furosemide (Lasix) 20 mg IVPUSH ONETIME ONE Stop: 08/06/19 10:01 Last Admin: 08/06/19 15:32 Dose: Not Given Glycopyrrolate (Robinul) Confirm Administered Dose 1 mg .ROUTE .STK-MED ONE Stop: 08/05/19 07:39 Glycopyrrolate (Glycopyrrolate) 0.4 mg IVPUSH ONETIME ONE Stop: 08/07/19 07:16 Last Admin: 08/07/19 07:09 Dose: 0.4 mg Hydromorphone HCl (Dilaudid Supervisor Paper Machine 15 Mg In Ns 30 Ml) 0 mg IV ASDIRECTED PRN; Protocol PRN Reason: [employer] PAIN [employer]OL Last Admin: 08/03/19 15:56 Dose: 15 mg Hydromorphone HCl (Dilaudid Supervisor Paper Machine 15 Mg In Ns 30 Ml) 15 mg IV ASDIRECTED [facility]SIE; Protocol Last Admin: 08/05/19 23:19 Dose: 15 mg Hydroxyzine HCl (Vistaril) 100 mg IM Q4H PRN PRN Reason: PAIN Last Admin: 08/05/19 17:54 Dose: 100 mg Hydroxyzine HCl (Atarax) 100 mg PO Q4H PRN PRN Reason: Pain Last Admin: 08/05/19 22:58 Dose: 100 mg Hydroxyzine HCl (Atarax) 100 mg PO Q4H PRN PRN Reason: Pain Last Admin: 08/06/19 03:02 Dose: 100 mg Chromium/Copper/Manganese/Seleni/Zn 1 ml/ Multivitamins/Minerals 10 ml/ Lactated Ringer's 1,011 mls @ 250 mls/hr IV ONETIME ONE Stop: 08/02/19 16:32 Last Admin: 08/02/19 13:22 Dose: 250 mls/hr Levofloxacin/Dextrose 500 mg/ (Premix) 100 mls @ 100 mls/hr IV Q24H [facility] Last Admin: 08/03/19 15:03 Dose: Not Given Magnesium Sulfate 2 gm/ Premix 50 mls @ 25 mls/hr IV Q6H [facility] Stop: 08/06/19 05:59 Last Admin: 08/05/19 12:59 Dose: 25 mls/hr Potassium Phosphate 15 mmol/ (Premix) 250 mls @ 85 mls/hr IV Q3H [facility] Stop: 08/04/19 17:27 Last Admin: 08/04/19 16:50 Dose: 85 mls/hr Ketamine HCl 50 mg/ Sodium (Chloride) 50 mls @ 18.6 mls/hr IV ASDIRECTED [facility] Magnesium Sulfate 2 gm/ Premix 50 mls @ 25 mls/hr IV Q6H [facility] Stop: 08/06/19 09:59 Last Admin: 08/06/19 07:20 Dose: 25 mls/hr Iohexol (Omnipaque) 20 ml PO ONETIME ONE Stop: 08/03/19 13:22 Last Admin: 08/03/19 13:45 Dose: 20 ml Ketamine HCl (Ketalar) 31 mg IV ASDIRECTED [facility] Lidocaine/Epinephrine (Xylocaine 1% With Epinephrine 1:100,000) Confirm Administered Dose 50 ml .ROUTE .STK-MED ONE Stop: 08/03/19 06:40 Linezolid (Zyvox) 600 mg IRR .STK-MED ONE Stop: 08/05/19 10:36 Last Admin: 08/05/19 10:35 Dose: 600 mg Meropenem (Merrem) Confirm Administered Dose 500 mg .ROUTE .STK-MED ONE Stop: 08/03/19 06:39 Meropenem (Merrem) Confirm Administered Dose 500 mg .ROUTE .STK-MED ONE Stop: 08/05/19 07:30 Last Admin: 08/05/19 10:35 Dose: 500 mg Midazolam HCl (Versed 1 Mg/Ml) Confirm Administered Dose 2 mg .ROUTE .STK-MED ONE Stop: 08/03/19 07:07 Midazolam HCl (Versed 1 Mg/Ml) Confirm Administered Dose 2 mg .ROUTE .STK-MED ONE Stop: 08/07/19 06:55 Neostigmine Methylsulfate (Neostigmine) Confirm Administered Dose 5 mg .ROUTE .STK-MED ONE Stop: 08/05/19 07:39 Ondansetron HCl (Zofran) Confirm Administered Dose 4 mg .ROUTE .STK-MED ONE Stop: 08/05/19 07:39 Propofol (Diprivan 20 Ml) Confirm Administered Dose 200 mg .ROUTE .STK-MED ONE Stop: 08/03/19 07:07 Propofol (Diprivan 20 Ml) Confirm Administered Dose 200 mg .ROUTE .STK-MED ONE Stop: 08/03/19 07:38 Propofol (Diprivan 20 Ml) Confirm Administered Dose 200 mg .ROUTE .STK-MED ONE Stop: 08/05/19 07:39 Propofol (Diprivan 20 Ml) Confirm Administered Dose 200 mg .ROUTE .STK-MED ONE Stop: 08/07/19 06:56 Rocuronium [place] (Zemuron) Confirm Administered Dose 50 mg .ROUTE .STK-MED ONE Stop: 08/05/19 07:39 Succinylcholine Chloride (Quelicin) Confirm Administered Dose 200 mg .ROUTE .STK -MED ONE Stop: 08/05/19 07:39 - Exam Quality Assessment: DVT Prophylaxis General: Alert, Oriented, Cooperative, Moderate Distress Lungs: Clear to Auscultation, Normal Respiratory Effort Cardiovascular: Regular Rate, Regular Rhythm, No Murmurs GI/Abdominal Exam: Soft, No Organomegaly, Tender. No: Distended, Guarding, Rigid, Rebound Extremities: Non-Tender, No Pedal Edema Sepsis Event Note - Evaluation Sepsis Screening Result: No Definite Risk - Focused Exam Vital Signs: Vital Signs Temp Temp Temp Pulse Resp BP Pulse Ox 08/07/19 15:58 99.0 F 08/07/19 15:38 99.0 F 93 16 98/69 97 08/07/19 12:18 96 08/07/19 11:35 97.5 F 96 16 116/46 L 98 08/07/19 09:00 97.3 F 83 16 114/52 L 95 08/07/19 08:45 84 16 121/52 L 94 L 08/07/19 08:30 82 16 131/64 95 08/07/19 08:15 97.3 F 84 16 98/33 L 95 08/07/19 08:03 95 08/07/19 08:01 97.3 F 96 16 143/72 H 98 08/07/19 07:50 97.2 F 96 16 127/68 95 08/07/19 07:45 102 H 16 125/74 95 08/07/19 07:40 93 16 117/70 98 08/07/19 07:35 84 16 118/69 98 08/07/19 07:30 97.0 F 87 16 110/73 98 Date Exam was Performed: 08/07/19 Time Exam was Performed: 17:04 Consult PN Assessment/Plan Problem List Initiated/Reviewed/Updated: Yes My Orders Last 24 Hours: My Active Orders 08/07/19 17:03 HEMOSIDERIN, URINE Stat Plan: ASSESSMENT AND RECOMMENDATIONS ANEMIA-persistent anemia despite transfusion of 6 units of red blood cells. Evidence of hemolysis with increase in bilirubin following transfusion as well as appearance of blood in the urine. 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 Further questioning today she reports she did have episode of anemia last summer and was evaluated at [facility] in [place]. Extensive evaluation there resulted in the opinion that hemolysis was related to her splenomegaly. Hemoglobin has dropped 1 g from yesterday. I have reviewed all of this with the start up specialist multi operation machine operator in [place]. After review of all of the available information he feels that is most likely that hemolysis is related to splenomegaly. -Plan is to transfuse as needed to maintain hemoglobin level of greater than 8 -Further discussion with Heme/Onc in a.m. concerning follow-up hemoglobin level and review of peripheral smear -CBC in a.m. -Urinalysis and urine hemosiderin
[2019-08-07] MEDS ORDERED: tiZANidine 4 MG Tab PO SCH (19:00)
[2019-08-07] MEDS: Melatonin 3 MG Tab PO SCH (20:53)
[2019-08-08] MEDS: hydrOXYzine HCl 25 MG Tab PO PRN ×4 (01:01→17:24)
[2019-08-08] MEDS: Dextrose 5%-Lactated Ringers 1,000 ML IV SCH ×2 (02:15→14:33)
[2019-08-08] MEDS: HYDROmorphone/Normal Saline 15 MG/30 ML PCA IV PRN ×2 (03:10→14:11)
[2019-08-08] MEDS: Cyclobenzaprine 10 MG Tab PO PRN ×2 (03:11→13:55)
[2019-08-08] MEDS: Acetaminophen 325 MG Tab PO SCH ×4 (04:35→21:15)
[2019-08-08] MEDS ORDERED: Linezolid 600 MG in Premix Bag 1 BAG IV SCH ×2 (08:00→21:00)
[2019-08-08] MEDS ORDERED: Fluconazole/Normal Saline 400 MG in Premix Bag 1 BAG IV SCH (09:00)
[2019-08-08] MEDS ORDERED: Fluconazole/Normal Saline 400 MG in Premix Bag 200 BAG IV SCH (09:00)
[2019-08-08] MEDS: DULoxetine 30 MG Cap PO SCH (09:28)
--- NOTE | 2019-08-08 11:28 | PN ---
DATE OF SERVICE: 08/08/2019 SUBJECTIVE: Aline states her pain has been controlled. She has been afebrile. Vital signs stable. Up, ambulating. Oral intake 4420. LABS THIS MORNING: Hemoglobin 7. Magnesium 1.3, creatinine 1.2. REVIEW OF SYSTEMS: Remainder of review of systems negative for any pertinent positives and negatives. OBJECTIVE: GENERAL: Aline Foley is a 58-year-old female. She is alert and orientated. VITAL SIGNS: TPR is 97, 83, 16, blood pressure 112/50. HEENT: Negative. NECK: Supple. HEART: Regular rate and rhythm. LUNGS: Clear. ABDOMEN: Dressings dry and intact. Abdominal binder is on. EXTREMITIES: Without peripheral edema. ASSESSMENT: 1. Exploratory laparotomy: a. Drainage of subfascial intraabdominal abscess. b. Drainage of retroperitoneal abdominal abscess. c. Debridement of abdominal wall for superior intraabdominal and pelvic retroperitoneal abscesses and focal necrosis. d. Date of surgery: 08/05/2019. Surgeon: Shamar Reno MD. 2. Persistent anemia despite transfusion of 6 units of red blood cells. PLAN: 1. Magnesium 2 g IV q.6 hours x72 hours for a magnesium of 1.3. 2. Discontinue Levaquin. 3. Zyvox 600 mg IV q.12 hours. 4. Diflucan 400 mg IV daily for 5 days. Stop on 08/12/2019 after morning dose. 5. Check CBC, CMP, phos, and BNP in a.m. 6. We will evaluate p.r.n. or in a.m. Aline Landeros PA-C /[id number]
[2019-08-08] MEDS: Magnesium Sulfate/Water 2 GM in Premix Bag 1 BAG IV SCH ×2 (13:51→17:19)
[2019-08-08] MEDS: Pantoprazole 40 MG Vial IVPUSH SCH (14:16)
[2019-08-08] MEDS: Clindamycin Phosphate 900 MG in Sodium Chloride 0.9% 100 ML IV SCH ×2 (14:19→21:09)
[2019-08-08] MEDS: Folic Acid 1 MG in Sodium Chloride 0.9% 50 ML IV SCH (16:04)
--- NOTE | 2019-08-08 19:42 | PCM.CONSN ---
- General Info Date of Service: 08/08/19 Subjective Update: Ms. Foley has remained fairly stable since yesterday, although hemoglobin has now dropped to 7.0. Bilirubin has normalized and she has remained afebrile. Continues to experience significant abdominal wall pain related to recent surgeries. - Review of Systems General: Reports: Weakness, Fatigue. Denies: Fever, Chills Pulmonary: Reports: No Symptoms Cardiovascular: Reports: No Symptoms Gastrointestinal: Reports: Abdominal Pain. Denies: Difficulty Swallowing, Nausea, Vomiting - Patient Data Vitals - Most Recent: Last Vital Signs Temp 97.5 F 08/08/19 19:05 Pulse 82 08/08/19 19:05 Resp 14 08/08/19 19:05 BP 141/60 H 08/08/19 19:05 Pulse Ox 99 08/08/19 19:17 Weight - Most Recent: 176 lb I&O - Last 24 Hours: Intake & Output 08/08/19 08/08/19 08/08/19 06:59 14:59 22:59 Intake Total 6584 293 0800 Output Total 410 300 310 Balance 0539 536 4644 Lab Results Last 24 Hours: Laboratory Results - last 24 hr 08/05/19 08/06/19 08/07/19 Range/Units 04:00 10:00 21:47 WBC (4.5-11.0) K/uL RBC (3.30-5.50) M/uL Hgb (12.0-15.0) g/dL Hct (36.0-48.0) % MCV (80-98) fL MCH (27-31) pg MCHC (32-36) % Plt Count (150-400) K/uL Haptoglobin <10 L (33-346) mg/dL Sodium (140-148) mmol/L Potassium (3.6-5.2) mmol/L Chloride (100-108) mmol/L Carbon Dioxide (21-32) mmol/L Anion Gap (5.0-14.0) mmol/L BUN (7-18) mg/dL Creatinine (0.6-1.0) mg/dL Est Cr Clr Drug Dosing mL/min Estimated GFR (MDRD) (>60) Glucose (74-106) mg/dL Calcium (8.5-10.1) mg/dL Phosphorus (2.5-4.9) mg/dL Magnesium (1.8-2.4) mg/dL Total Bilirubin (0.2-1.0) mg/dL AST (15-37) U/L ALT (12-78) U/L Alkaline Phosphatase (46-116) U/L NT-Pro-B Natriuret Pep (5-125) pg/mL Total Protein (6.4-8.2) g/dL Albumin (3.4-5.0) g/dL Globulin (2.3-3.5) g/dL Albumin/Globulin Ratio (1.2-2.2) Urine Color Yellow (YELLOW) Urine Appearance Slightly cloudy A (CLEAR) Urine pH 8.5 H (5.0-8.0) Ur Specific [place] 1.020 (1.008-1.030) Urine Protein Negative (NEGATIVE) mg/dL Urine Glucose (UA) Negative (NEGATIVE) mg/dL Urine Ketones Negative (NEGATIVE) mg/dL Urine Occult Blood Small H (NEGATIVE) Urine Nitrite Negative (NEGATIVE) Urine Bilirubin Negative (NEGATIVE) Urine Urobilinogen 0.2 (0.2-1.0) EU/dL Ur Leukocyte Esterase Negative (NEGATIVE) Urine RBC 0-5 (0-5) Urine WBC 0-5 (0-5) Ur Epithelial Cells Rare Amorphous Sediment Few Urine Bacteria Rare Urine Mucus Not seen Blood Type A POSITIVE Gel Antibody Screen Positive A* Crossmatch See Detail 08/08/19 08/08/19 Range/Units 04:20 04:20 WBC 3.5 L (4.5-11.0) K/uL RBC 2.56 L (3.30-5.50) M/uL Hgb 7.0 L (12.0-15.0) g/dL Hct 23.6 L (36.0-48.0) % MCV 92 (80-98) fL MCH 27 (27-31) pg MCHC 30 L (32-36) % Plt Count 131 L (150-400) K/uL Haptoglobin (33-346) mg/dL Sodium 138 L (140-148) mmol/L Potassium 4.3 (3.6-5.2) mmol/L Chloride 105 (100-108) mmol/L Carbon Dioxide 26 (21-32) mmol/L Anion Gap 11.3 (5.0-14.0) mmol/L BUN 11 (7-18) mg/dL Creatinine 1.2 H (0.6-1.0) mg/dL Est Cr Clr Drug Dosing 49.09 mL/min Estimated GFR (MDRD) 46 L (>60) Glucose 96 (74-106) mg/dL Calcium 7.9 L (8.5-10.1) mg/dL Phosphorus 4.7 (2.5-4.9) mg/dL Magnesium 1.3 L D (1.8-2.4) mg/dL Total Bilirubin 0.9 (0.2-1.0) mg/dL AST 27 (15-37) U/L ALT 20 (12-78) U/L Alkaline Phosphatase 70 (46-116) U/L NT-Pro-B Natriuret Pep 580 H (5-125) pg/mL Total Protein 5.6 L (6.4-8.2) g/dL Albumin 1.9 L (3.4-5.0) g/dL Globulin 3.7 H (2.3-3.5) g/dL Albumin/Globulin Ratio 0.5 L (1.2-2.2) Urine Color (YELLOW) Urine Appearance (CLEAR) Urine pH (5.0-8.0) Ur Specific [place] (1.008-1.030) Urine Protein (NEGATIVE) mg/dL Urine Glucose (UA) (NEGATIVE) mg/dL Urine Ketones (NEGATIVE) mg/dL Urine Occult Blood (NEGATIVE) Urine Nitrite (NEGATIVE) Urine Bilirubin (NEGATIVE) Urine Urobilinogen (0.2-1.0) EU/dL Ur Leukocyte Esterase (NEGATIVE) Urine RBC (0-5) Urine WBC (0-5) Ur Epithelial Cells Amorphous Sediment Urine Bacteria Urine Mucus Blood Type Gel Antibody Screen Crossmatch Eliud Results Last 24 Hours: Microbiology 08/07/19 07:29 CLOtest - Final Stomach NEGATIVE CLOTEST REFERENCE RANGE: NEGATIVE 08/05/19 09:57 Gram Stain - Final Abdomen - Abscess Wound Culture - Final Staphylococcus Simulans Yeast Isolated Anaerobic Culture - Final NO GROWTH AFTER 3 DAYS 08/05/19 09:55 Gram Stain - Final Abdomen - Abscess Wound Culture - Final Staphylococcus Simulans Yeast Isolated Anaerobic Culture - Final NO GROWTH AFTER 3 DAYS Med Orders - Current: Current Medications Acetaminophen (Tylenol) 650 mg PO Q6H [facility] Last Admin: 04/30/20 15:38 Dose: 650 mg Cyclobenzaprine HCl (Flexeril) 10 mg PO Q8H PRN PRN Reason: MUSCLE SPASM Last Admin: 08/08/19 13:55 Dose: 10 mg Duloxetine HCl (Cymbalta) 60 mg PO DAILY [facility] Last Admin: 08/08/19 09:28 Dose: 60 mg Hydromorphone HCl (Dilaudid Access Analyst 15 Mg In Ns 30 Ml) 0 mg IV ASDIRECTED PRN; Protocol PRN Reason: PAIN Last Admin: 08/08/19 14:11 Dose: 15 mg Hydroxyzine HCl (Atarax) 50 mg PO Q4H PRN PRN Reason: Pain Last Admin: 08/08/19 17:24 Dose: 50 mg Dextrose/Lactated Ringer's (Dextrose 5%-Lactated Ringers) 1,000 mls @ 100 mls/ hr IV ASDIRECTED [facility] Last Admin: 08/08/19 14:33 Dose: 100 mls/hr Folic Acid 1 mg/ Sodium (Chloride) 50.2 mls @ 200 mls/hr IV Q24H [facility] Last Admin: 08/08/19 16:04 Dose: 200 mls/hr Magnesium Sulfate 2 gm/ Premix 50 mls @ 25 mls/hr IV Q6H [facility] Stop: 08/11/19 07:59 Last Admin: 08/08/19 17:19 Dose: 25 mls/hr Clindamycin Phosphate 900 mg/ (Sodium Chloride) 106 mls @ 212 mls/hr IV Q8H [facility] Last Admin: 08/08/19 14:19 Dose: 212 mls/hr Fluconazole/Sodium Chloride (400 mg/ Premix) 200 mls @ 100 mls/hr IV Q24H [facility] Stop: 08/12/19 11:59 Imipramine HCl (Imipramine Hcl) 200 mg PO BEDTIME [facility] Last Admin: 08/07/19 20:52 Dose: 200 mg Melatonin (Melatonin) 9 mg PO BEDTIME [facility] Last Admin: 08/07/19 20:53 Dose: 9 mg Naloxone HCl (Narcan) 0.1 mg IV ASDIRECTED PRN PRN Reason: decreased respiratory rate Olanzapine (Zyprexa) 5 mg PO Q12H PRN PRN Reason: ANX Last Admin: 08/05/19 22:21 Dose: 5 mg Pantoprazole Sodium (Protonix Iv) 40 mg IVPUSH Q12H [facility] Last Admin: 08/08/19 14:16 Dose: 40 mg Sumatriptan Succinate (Imitrex) 50 mg PO ASDIRECTED PRN PRN Reason: HEADACHE Discontinued Medications Bupivacaine HCl (Marcaine 0.5%) Confirm Administered Dose 50 ml .ROUTE .STK-MED ONE Stop: 08/03/19 06:39 Ropivacaine 40 ml/Dexamethasone 8 mg/Epinephrine HCl 0.4 mg/ Sodium Chloride 37.6 ml 0 ml NERVRT ASDIRECTED [facility] Last Admin: 08/03/19 07:25 Dose: 80 syringe Ropivacaine 40 ml/Dexamethasone 8 mg/Epinephrine HCl 0.4 mg/ Sodium Chloride 37.6 ml 0 ml NERVRT ASDIRECTED [facility] Last Admin: 08/05/19 10:38 Dose: 80 syringe Dexamethasone (Dexamethasone) Confirm Administered Dose 4 mg .ROUTE .STK-MED ONE Stop: 08/05/19 07:39 Fentanyl (Sublimaze) Confirm Administered Dose 100 mcg .ROUTE .STK-MED ONE Stop: 08/03/19 07:07 Fentanyl (Sublimaze) Confirm Administered Dose 250 mcg .ROUTE .STK-MED ONE Stop: 08/05/19 07:40 Fentanyl (Sublimaze) Confirm Administered Dose 100 mcg .ROUTE .STK-MED ONE Stop: 08/05/19 10:30 Fentanyl (Sublimaze) Confirm Administered Dose 100 mcg .ROUTE .STK-MED ONE Stop: 08/07/19 06:55 Furosemide (Lasix) 20 mg IVPUSH ONETIME ONE Stop: 08/05/19 11:26 Last Admin: 08/05/19 11:14 Dose: 20 mg Furosemide (Lasix) 20 mg IVPUSH ONETIME ONE Stop: 08/06/19 10:01 Last Admin: 08/06/19 15:32 Dose: Not Given Glycopyrrolate (Robinul) Confirm Administered Dose 1 mg .ROUTE .STK-MED ONE Stop: 08/05/19 07:39 Glycopyrrolate (Glycopyrrolate) 0.4 mg IVPUSH ONETIME ONE Stop: 08/07/19 07:16 Last Admin: 08/07/19 07:09 Dose: 0.4 mg Hydromorphone HCl (Dilaudid Access Analyst 15 Mg In Ns 30 Ml) 0 mg IV ASDIRECTED PRN; Protocol PRN Reason: [employer] PAIN CONTROL Last Admin: 08/03/19 15:56 Dose: 15 mg Hydromorphone HCl (Dilaudid Access Analyst 15 Mg In Ns 30 Ml) 15 mg IV ASDIRECTED [facility]; Protocol Last Admin: 08/05/19 23:19 Dose: 15 mg Hydroxyzine HCl (Vistaril) 100 mg IM Q4H PRN PRN Reason: PAIN Last Admin: 08/05/19 17:54 Dose: 100 mg Hydroxyzine HCl (Atarax) 100 mg PO Q4H PRN PRN Reason: Pain Last Admin: 08/05/19 22:58 Dose: 100 mg Hydroxyzine HCl (Atarax) 100 mg PO Q4H PRN PRN Reason: Pain Last Admin: 08/06/19 03:02 Dose: 100 mg Chromium/Copper/Manganese/Seleni/Zn 1 ml/ Multivitamins/Minerals 10 ml/ Lactated Ringer's 1,011 mls @ 250 mls/hr IV ONETIME ONE Stop: 08/02/19 16:32 Last Admin: 08/02/19 13:22 Dose: 250 mls/hr Levofloxacin/Dextrose 500 mg/ (Premix) 100 mls @ 100 mls/hr IV Q24H [facility] Last Admin: 08/03/19 15:03 Dose: Not Given Levofloxacin/Dextrose 500 mg/ (Premix) 100 mls @ 100 mls/hr IV Q24H [facility] Last Admin: 08/07/19 09:21 Dose: 100 mls/hr Magnesium Sulfate 2 gm/ Premix 50 mls @ 25 mls/hr IV Q6H [facility] Stop: 08/06/19 05:59 Last Admin: 08/05/19 12:59 Dose: 25 mls/hr Potassium Phosphate 15 mmol/ (Premix) 250 mls @ 85 mls/hr IV Q3H [facility] Stop: 08/04/19 17:27 Last Admin: 08/04/19 16:50 Dose: 85 mls/hr Ketamine HCl 50 mg/ Sodium (Chloride) 50 mls @ 18.6 mls/hr IV ASDIRECTED [facility] Magnesium Sulfate 2 gm/ Premix 50 mls @ 25 mls/hr IV Q6H [facility] Stop: 08/06/19 09:59 Last Admin: 08/06/19 07:20 Dose: 25 mls/hr Linezolid 600 mg/ Premix 300 mls @ 300 mls/hr IV Q12H [facility] Last Admin: 08/08/19 09:21 Dose: 300 mls/hr Fluconazole/Sodium Chloride (400 mg/ Premix) 200 mls @ 100 mls/hr IV DAILY [facility] Stop: 08/12/19 10:59 Last Admin: 08/08/19 11:00 Dose: 100 mls/hr Fluconazole/Sodium Chloride (400 mg/ Premix) 200 mls @ 100 mls/hr IV Q24H [facility] Stop: 08/12/19 07:59 Iohexol (Omnipaque) 20 ml PO ONETIME ONE Stop: 08/03/19 13:22 Last Admin: 08/03/19 13:45 Dose: 20 ml Ketamine HCl (Ketalar) 31 mg IV ASDIRECTED [facility] Lidocaine/Epinephrine (Xylocaine 1% With Epinephrine 1:100,000) Confirm Administered Dose 50 ml .ROUTE .STK-MED ONE Stop: 08/03/19 06:40 Linezolid (Zyvox) 600 mg IRR .STK-MED ONE Stop: 08/05/19 10:36 Last Admin: 08/05/19 10:35 Dose: 600 mg Meropenem (Merrem) Confirm Administered Dose 500 mg .ROUTE .STK-MED ONE Stop: 08/03/19 06:39 Meropenem (Merrem) Confirm Administered Dose 500 mg .ROUTE .STK-MED ONE Stop: 08/05/19 07:30 Last Admin: 08/05/19 10:35 Dose: 500 mg Midazolam HCl (Versed 1 Mg/Ml) Confirm Administered Dose 2 mg .ROUTE .STK-MED ONE Stop: 08/03/19 07:07 Midazolam HCl (Versed 1 Mg/Ml) Confirm Administered Dose 2 mg .ROUTE .STK-MED ONE Stop: 08/07/19 06:55 Neostigmine Methylsulfate (Neostigmine) Confirm Administered Dose 5 mg .ROUTE .STK-MED ONE Stop: 08/05/19 07:39 Ondansetron HCl (Zofran) Confirm Administered Dose 4 mg .ROUTE .STK-MED ONE Stop: 08/05/19 07:39 Propofol (Diprivan 20 Ml) Confirm Administered Dose 200 mg .ROUTE .STK-MED ONE Stop: 08/03/19 07:07 Propofol (Diprivan 20 Ml) Confirm Administered Dose 200 mg .ROUTE .STK-MED ONE Stop: 08/03/19 07:38 Propofol (Diprivan 20 Ml) Confirm Administered Dose 200 mg .ROUTE .STK-MED ONE Stop: 08/05/19 07:39 Propofol (Diprivan 20 Ml) Confirm Administered Dose 200 mg .ROUTE .STK-MED ONE Stop: 08/07/19 06:56 Rocuronium [place] (Zemuron) Confirm Administered Dose 50 mg .ROUTE .STK-MED ONE Stop: 08/05/19 07:39 Succinylcholine Chloride (Quelicin) Confirm Administered Dose 200 mg .ROUTE .STK -MED ONE Stop: 08/05/19 07:39 Tizanidine HCl (Zanaflex) 4 mg PO DAILY [facility] Stop: 08/07/19 19:01 Last Admin: 08/07/19 19:08 Dose: 4 mg - Exam Quality Assessment: DVT Prophylaxis General: Alert, Oriented, Cooperative, Moderate Distress Lungs: Clear to Auscultation, Normal Respiratory Effort Cardiovascular: Regular Rate, Regular Rhythm, No Murmurs GI/Abdominal Exam: Soft, Non-Tender, No Organomegaly, No Distention Sepsis Event Note - Evaluation Sepsis Screening Result: No Definite Risk - Focused Exam Vital Signs: Vital Signs Temp Temp Pulse Resp BP Pulse Ox 08/08/19 19:17 99 08/08/19 19:05 97.5 F 82 14 141/60 H 99 08/08/19 17:50 97.7 F 76 16 136/59 L 08/08/19 17:46 97.7 F 78 16 143/82 H 08/08/19 17:15 98.5 F 75 16 145/70 H 08/08/19 16:45 97.7 F 78 16 125/65 08/08/19 16:15 98.5 F 79 16 120/56 L 08/08/19 16:01 97.8 F 80 16 115/56 L 08/08/19 16:00 97.8 F 82 16 113/52 L 92 L 08/08/19 15:46 97.8 F 82 16 113/52 L 08/08/19 15:31 98.5 F 78 16 132/60 08/08/19 13:10 100 08/08/19 11:00 97.7 F 84 17 100/44 L 100 Date Exam was Performed: 08/08/19 Time Exam was Performed: 19:38 Consult PN Assessment/Plan Problem List Initiated/Reviewed/Updated: Yes My Orders Last 24 Hours: My Active Orders 08/07/19 21:55 HEMOSIDERIN, URINE Stat 08/08/19 11:13 RED BLOOD CELLS LP [BBK] Urgent Transfuse Red Blood Cells [COMM] Urgent 08/08/19 13:00 Pantoprazole [ProTONIX IV] 40 mg IVPUSH Q12H 08/09/19 05:11 LACTATE DEHYDROGENASE,LDH [CHEM] AM Plan: ASSESSMENT AND RECOMMENDATIONS ANEMIA-persistent anemia despite transfusion of 6 units of red blood cells. Evidence of hemolysis with increase in bilirubin following transfusion as well as appearance of blood in the urine. 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 Further questioning today she reports she did have episode of anemia last summer and was evaluated at [facility] in [place]. Extensive evaluation there resulted in the opinion that hemolysis was related to her splenomegaly. Hemoglobin has dropped 1 g from yesterday. I have reviewed all of this with the terra cotta setter subcontract administrator in [place]. After review of all of the available information he feels that is most likely that hemolysis is related to splenomegaly. Hemoglobin further decreased today to 7.0 -Plan is to transfuse as needed to maintain hemoglobin level of greater than 7 -Further discussion with Heme/Onc in a.m. concerning follow-up hemoglobin level -CBC in a.m. -urine hemosiderin pending -Reassess LDH in a.m. -Transfuse 1 unit of red blood cells today
[2019-08-08] MEDS: Melatonin 3 MG Tab PO SCH (21:09)
[2019-08-09] MEDS: Dextrose 5%-Lactated Ringers 1,000 ML IV SCH ×2 (00:20→10:04)
[2019-08-09] MEDS: Magnesium Sulfate/Water 2 GM in Premix Bag 1 BAG IV SCH ×5 (00:21→23:39)
[2019-08-09] MEDS: hydrOXYzine HCl 25 MG Tab PO PRN ×3 (00:24→21:00)
[2019-08-09] MEDS: Pantoprazole 40 MG Vial IVPUSH SCH ×2 (01:49→13:49)
[2019-08-09] MEDS: Acetaminophen 325 MG Tab PO SCH ×4 (03:11→21:04)
[2019-08-09] MEDS: Clindamycin Phosphate 900 MG in Sodium Chloride 0.9% 100 ML IV SCH ×3 (05:46→21:14)
[2019-08-09] MEDS ORDERED: Fluconazole/Normal Saline 400 MG in Premix Bag 1 BAG IV SCH (06:00)
[2019-08-09] MEDS ORDERED: Furosemide 20 MG/2 ML VIAL IVPUSH ONE ×2 (07:30→14:00)
[2019-08-09] MEDS: HYDROmorphone/Normal Saline 15 MG/30 ML PCA IV PRN ×2 (08:48→19:57)
[2019-08-09] MEDS: DULoxetine 30 MG Cap PO SCH (08:53)
[2019-08-09] MEDS: Lactobacillus Rhamnosus GG (Probiotic) Cap PO SCH ×2 (08:53→20:48)
[2019-08-09] MEDS: Cyclobenzaprine 10 MG Tab PO PRN ×2 (08:57→20:48)
[2019-08-09] MEDS: Fluconazole/Normal Saline 400 MG in Premix Bag 1 BAG IV SCH (10:38)
--- NOTE | 2019-08-09 13:25 | PN ---
DATE OF SERVICE: 08/09/2019 SUBJECTIVE: Aline did receive a unit of packed red blood cells yesterday. Her hemoglobin went from 7.0 to 7.1, bilirubin increased to 2.3, BNP is 1665. Vital signs have been stable. Her pain has been managed. Up, ambulating. Antibiotic started yesterday with clindamycin due to adverse reactions with the Zyvox, so she is reporting that she is emptying out her ileostomy more often. Does request IV rate to be decreased due to frequent urination. REVIEW OF SYSTEMS: Remainder of review of systems negative for any pertinent positives and negatives. OBJECTIVE: GENERAL: Aline Foley is a pleasant 58-year-old female. VITAL SIGNS: TPR at 0750, 98.3; 79; 15; blood pressure 119/52. HEENT: Negative. NECK: Supple. HEART: Regular rate and rhythm. LUNGS: Clear. ABDOMEN: Dressings dry and intact. Abdominal binder is on. EXTREMITIES: Without peripheral edema. ASSESSMENT: 1. Exploratory laparotomy with: a. Drainage of subfascial intraabdominal abscess. b. Drainage of retroperitoneal abdominal abscess. c. Debridement of abdominal wall for superior intraabdominal and pelvic retroperitoneal abscesses and focal necrosis. Date of surgery: 08/05/2019. Surgeon: Shamar Reno MD. 2. Persistent anemia despite transfusion of 7 units of packed red blood cells. 3. Hypomagnesemia. 4. Elevated BNP. PLAN: 1. Type and screen 5 units packed red blood cells, to have 5 units in the hospital for the weekend. 2. Lasix 20 mg IV now. 3. Lasix 20 mg IV at 1400. 4. Probiotics 2 b.i.d. p.o. 5. Decrease IV to keep open. 6. Good pulmonary toilet. 7. We will evaluate p.r.n. or in a.m. Aline Landeros PA-C /[id number]
--- NOTE | 2019-08-09 13:56 | PCM.CONSN ---
- General Info Date of Service: 08/09/19 Subjective Update: Ms. Foley has unfortunately shown ongoing evidence of hemolysis. She was transfused 1 unit of red blood cells yesterday for a hemoglobin of 7.0, this morning hemoglobin is 7.1 and bilirubin has increased again to 2.3. She otherwise has been hemodynamically stable and afebrile. Seems to be slowly progressing and improving following her surgery. Functional Status: Reports: Tolerating Diet, Ambulating - Review of Systems General: Reports: Weakness, Fatigue. Denies: Fever, Chills Pulmonary: Reports: No Symptoms Cardiovascular: Reports: No Symptoms Gastrointestinal: Reports: Abdominal Pain. Denies: Difficulty Swallowing, Nausea, Vomiting - Patient Data Vitals - Most Recent: Last Vital Signs Temp 97.9 F 08/09/19 10:59 Pulse 98 08/09/19 10:59 Resp 18 08/09/19 10:59 BP 127/46 L 08/09/19 10:59 Pulse Ox 95 08/09/19 13:11 Weight - Most Recent: 176 lb I&O - Last 24 Hours: Intake & Output 08/08/19 08/09/19 08/09/19 22:59 06:59 14:59 Intake Total 1809 1618 250 Output Total 510 2457 3330 Balance 2449 -590 -2322 Lab Results Last 24 Hours: Laboratory Results - last 24 hr 08/02/19 08/05/19 08/06/19 Range/Units 12:13 04:00 10:00 WBC (4.5-11.0) K/uL RBC (3.30-5.50) M/uL Hgb (12.0-15.0) g/dL Hct (36.0-48.0) % MCV (80-98) fL MCH (27-31) pg MCHC (32-36) % Plt Count (150-400) K/uL Sodium (140-148) mmol/L Potassium (3.6-5.2) mmol/L Chloride (100-108) mmol/L Carbon Dioxide (21-32) mmol/L Anion Gap (5.0-14.0) mmol/L BUN (7-18) mg/dL Creatinine (0.6-1.0) mg/dL Est Cr Clr Drug Dosing mL/min Estimated GFR (MDRD) (>60) Glucose (74-106) mg/dL Calcium (8.5-10.1) mg/dL Phosphorus (2.5-4.9) mg/dL Total Bilirubin (0.2-1.0) mg/dL AST (15-37) U/L ALT (12-78) U/L Alkaline Phosphatase (46-116) U/L Lactate Dehydrogenase (82-234) U/L NT-Pro-B Natriuret Pep (5-125) pg/mL Total Protein (6.4-8.2) g/dL Albumin (3.4-5.0) g/dL Globulin (2.3-3.5) g/dL Albumin/Globulin Ratio (1.2-2.2) Serum Copper 148 (72-166) ug/dL Blood Type A POSITIVE Gel Antibody Screen Positive A* Antibody Identification Direct AHG Gel w BRIANNA (NEGATIVE) Crossmatch See Detail See Detail Tx Rx Implicated Unit 1 Unit 1 Component Urine Blood Reaction Clerical Check Pre-Trans Blood Type Pre-Trans Vis Hemolysis Pre-Trans Icterus Pre-Trans NEHEMIAH IgG (Gel) Post-Trans Blood Type Post-Tx Visible Hemolys Post-Trans Icterus Post-Trans NEHEMIAH IgG (Gel) Reaction Interpretation 08/06/19 08/08/19 08/09/19 Range/Units 10:00 12:30 04:25 WBC 4.0 L (4.5-11.0) K/uL RBC 2.66 L (3.30-5.50) M/uL Hgb 7.1 L (12.0-15.0) g/dL Hct 24.0 L (36.0-48.0) % MCV 90 (80-98) fL MCH 27 (27-31) pg MCHC 30 L (32-36) % Plt Count 124 L (150-400) K/uL Sodium (140-148) mmol/L Potassium (3.6-5.2) mmol/L Chloride (100-108) mmol/L Carbon Dioxide (21-32) mmol/L Anion Gap (5.0-14.0) mmol/L BUN (7-18) mg/dL Creatinine (0.6-1.0) mg/dL Est Cr Clr Drug Dosing mL/min Estimated GFR (MDRD) (>60) Glucose (74-106) mg/dL Calcium (8.5-10.1) mg/dL Phosphorus (2.5-4.9) mg/dL Total Bilirubin (0.2-1.0) mg/dL AST (15-37) U/L ALT (12-78) U/L Alkaline Phosphatase (46-116) U/L Lactate Dehydrogenase (82-234) U/L NT-Pro-B Natriuret Pep (5-125) pg/mL Total Protein (6.4-8.2) g/dL Albumin (3.4-5.0) g/dL Globulin (2.3-3.5) g/dL Albumin/Globulin Ratio (1.2-2.2) Serum Copper (72-166) ug/dL Blood Type A POSITIVE Gel Antibody Screen Positive A* Antibody Identification Anti-K Direct AHG Gel w BRIANNA Negative (NEGATIVE) Crossmatch See Detail See Detail Tx Rx Implicated Unit 1 Unit 1 Component Prbc Urine Blood Large Reaction Clerical Check Acceptable Pre-Trans Blood Type A positive Pre-Trans Vis Hemolysis Negative Pre-Trans Icterus Negative Pre-Trans NEHEMIAH IgG (Gel) Negative Post-Trans Blood Type A positive Post-Tx Visible Hemolys 2+ Post-Trans Icterus 4+ Post-Trans NEHEMIAH IgG (Gel) Negative Reaction Interpretation 08/09/19 08/09/19 Range/Units 04:25 04:25 WBC (4.5-11.0) K/uL RBC (3.30-5.50) M/uL Hgb (12.0-15.0) g/dL Hct (36.0-48.0) % MCV (80-98) fL MCH (27-31) pg MCHC (32-36) % Plt Count (150-400) K/uL Sodium 138 L (140-148) mmol/L Potassium 4.2 (3.6-5.2) mmol/L Chloride 105 (100-108) mmol/L Carbon Dioxide 26 (21-32) mmol/L Anion Gap 11.2 (5.0-14.0) mmol/L BUN 20 H D (7-18) mg/dL Creatinine 1.3 H (0.6-1.0) mg/dL Est Cr Clr Drug Dosing 45.31 mL/min Estimated GFR (MDRD) 42 L (>60) Glucose 115 H (74-106) mg/dL Calcium 8.0 L (8.5-10.1) mg/dL Phosphorus 3.8 (2.5-4.9) mg/dL Total Bilirubin 2.3 H D (0.2-1.0) mg/dL AST 59 H D (15-37) U/L ALT 21 (12-78) U/L Alkaline Phosphatase 78 (46-116) U/L Lactate Dehydrogenase 1238 H (82-234) U/L NT-Pro-B Natriuret Pep 1666 H (5-125) pg/mL Total Protein 5.8 L (6.4-8.2) g/dL Albumin 1.9 L (3.4-5.0) g/dL Globulin 3.9 H (2.3-3.5) g/dL Albumin/Globulin Ratio 0.5 L (1.2-2.2) Serum Copper (72-166) ug/dL Blood Type Gel Antibody Screen Antibody Identification Direct AHG Gel w BRIANNA (NEGATIVE) Crossmatch Tx Rx Implicated Unit 1 Unit 1 Component Urine Blood Reaction Clerical Check Pre-Trans Blood Type Pre-Trans Vis Hemolysis Pre-Trans Icterus Pre-Trans NEHEMIAH IgG (Gel) Post-Trans Blood Type Post-Tx Visible Hemolys Post-Trans Icterus Post-Trans NEHEMIAH IgG (Gel) Reaction Interpretation Eliud Results Last 24 Hours: Microbiology 08/07/19 07:29 CLOtest - Final Stomach NEGATIVE CLOTEST REFERENCE RANGE: NEGATIVE Med Orders - Current: Current Medications Acetaminophen (Tylenol) 650 mg PO Q6H CASSIE Last Admin: 08/09/19 10:06 Dose: 650 mg Cyclobenzaprine HCl (Flexeril) 10 mg PO Q8H PRN PRN Reason: MUSCLE SPASM Last Admin: 08/09/19 08:57 Dose: 10 mg Duloxetine HCl (Cymbalta) 60 mg PO DAILY CASSIE Last Admin: 08/09/19 08:53 Dose: 60 mg Furosemide (Lasix) 20 mg IVPUSH ONETIME ONE Stop: 08/09/19 14:01 Hydromorphone HCl (Dilaudid [employer]imming [employer] Helper 15 Mg In Ns 30 Ml) 0 mg IV ASDIRECTED PRN; Protocol PRN Reason: PAIN Last Admin: 08/09/19 08:48 Dose: 15 mg Hydroxyzine HCl (Atarax) 50 mg PO Q4H PRN PRN Reason: Pain Last Admin: 08/09/19 00:24 Dose: 50 mg Dextrose/Lactated Ringer's (Dextrose 5%-Lactated Ringers) 1,000 mls @ 0 mls/hr IV ASDIRECTED [facility] Last Admin: 08/09/19 10:04 Dose: 100 mls/hr Folic Acid 1 mg/ Sodium (Chloride) 50.2 mls @ 200 mls/hr IV Q24H [facility] Last Admin: 08/08/19 16:04 Dose: 200 mls/hr Magnesium Sulfate 2 gm/ Premix 50 mls @ 25 mls/hr IV Q6H [facility] Stop: 08/11/19 07:59 Last Admin: 08/09/19 13:28 Dose: 25 mls/hr Clindamycin Phosphate 900 mg/ (Sodium Chloride) 106 mls @ 212 mls/hr IV Q8H [facility] Last Admin: 08/09/19 05:46 Dose: 212 mls/hr Fluconazole/Sodium Chloride (400 mg/ Premix) 200 mls @ 100 mls/hr IV Q24H [facility] Stop: 08/12/19 11:59 Last Admin: 08/09/19 10:38 Dose: 100 mls/hr Imipramine HCl (Imipramine Hcl) 200 mg PO BEDTIME [facility] Last Admin: 08/08/19 21:09 Dose: 200 mg Lactobacillus Rhamnosus (Culturelle) 2 cap PO BID [facility] Last Admin: 08/09/19 08:53 Dose: 2 cap Melatonin (Melatonin) 9 mg PO BEDTIME [facility] Last Admin: 08/08/19 21:09 Dose: 9 mg Naloxone HCl (Narcan) 0.1 mg IV ASDIRECTED PRN PRN Reason: decreased respiratory rate Olanzapine (Zyprexa) 5 mg PO Q12H PRN PRN Reason: ANX Last Admin: 08/05/19 22:21 Dose: 5 mg Pantoprazole Sodium (Protonix Iv) 40 mg IVPUSH Q12H [facility] Last Admin: 08/09/19 13:49 Dose: 40 mg Sumatriptan Succinate (Imitrex) 50 mg PO ASDIRECTED PRN PRN Reason: HEADACHE Discontinued Medications Bupivacaine HCl (Marcaine 0.5%) Confirm Administered Dose 50 ml .ROUTE .STK-MED ONE Stop: 08/03/19 06:39 Ropivacaine 40 ml/Dexamethasone 8 mg/Epinephrine HCl 0.4 mg/ Sodium Chloride 37.6 ml 0 ml NERVRT ASDIRECTED [facility] Last Admin: 08/03/19 07:25 Dose: 80 syringe Ropivacaine 40 ml/Dexamethasone 8 mg/Epinephrine HCl 0.4 mg/ Sodium Chloride 37.6 ml 0 ml NERVRT ASDIRECTED [facility] Last Admin: 08/05/19 10:38 Dose: 80 syringe Dexamethasone (Dexamethasone) Confirm Administered Dose 4 mg .ROUTE .STK-MED ONE Stop: 08/05/19 07:39 Fentanyl (Sublimaze) Confirm Administered Dose 100 mcg .ROUTE .STK-MED ONE Stop: 08/03/19 07:07 Fentanyl (Sublimaze) Confirm Administered Dose 250 mcg .ROUTE .STK-MED ONE Stop: 08/05/19 07:40 Fentanyl (Sublimaze) Confirm Administered Dose 100 mcg .ROUTE .STK-MED ONE Stop: 08/05/19 10:30 Fentanyl (Sublimaze) Confirm Administered Dose 100 mcg .ROUTE .STK-MED ONE Stop: 08/07/19 06:55 Furosemide (Lasix) 20 mg IVPUSH ONETIME ONE Stop: 08/05/19 11:26 Last Admin: 08/05/19 11:14 Dose: 20 mg Furosemide (Lasix) 20 mg IVPUSH ONETIME ONE Stop: 08/06/19 10:01 Last Admin: 08/06/19 15:32 Dose: Not Given Furosemide (Lasix) 20 mg IVPUSH ONETIME ONE Stop: 08/09/19 07:31 Last Admin: 08/09/19 07:43 Dose: 20 mg Glycopyrrolate (Robinul) Confirm Administered Dose 1 mg .ROUTE .STK-MED ONE Stop: 08/05/19 07:39 Glycopyrrolate (Glycopyrrolate) 0.4 mg IVPUSH ONETIME ONE Stop: 08/07/19 07:16 Last Admin: 08/07/19 07:09 Dose: 0.4 mg Hydromorphone HCl (Dilaudid Swimming [employer] Helper 15 Mg In Ns 30 Ml) 0 mg IV ASDIRECTED PRN; Protocol PRN Reason: CRANK HAND PAIN CONTROL Last Admin: 08/03/19 15:56 Dose: 15 mg Hydromorphone HCl (Dilaudid Swimming [employer] Plasterer Helper 15 Mg In Ns 30 Ml) 15 mg IV ASDIRECTED CASSIE; Protocol Last Admin: 08/05/19 23:19 Dose: 15 mg Hydroxyzine HCl (Vistaril) 100 mg IM Q4H PRN PRN Reason: PAIN Last Admin: 08/05/19 17:54 Dose: 100 mg Hydroxyzine HCl (Atarax) 100 mg PO Q4H PRN PRN Reason: Pain Last Admin: 08/05/19 22:58 Dose: 100 mg Hydroxyzine HCl (Atarax) 100 mg PO Q4H PRN PRN Reason: Pain Last Admin: 08/06/19 03:02 Dose: 100 mg Chromium/Copper/Manganese/Seleni/Zn 1 ml/ Multivitamins/Minerals 10 ml/ Lactated Ringer's 1,011 mls @ 250 mls/hr IV ONETIME ONE Stop: 08/02/19 16:32 Last Admin: 08/02/19 13:22 Dose: 250 mls/hr Levofloxacin/Dextrose 500 mg/ (Premix) 100 mls @ 100 mls/hr IV Q24H [facility] Last Admin: 08/03/19 15:03 Dose: Not Given Levofloxacin/Dextrose 500 mg/ (Premix) 100 mls @ 100 mls/hr IV Q24H [facility] Last Admin: 08/07/19 09:21 Dose: 100 mls/hr Magnesium Sulfate 2 gm/ Premix 50 mls @ 25 mls/hr IV Q6H [facility] Stop: 08/06/19 05:59 Last Admin: 08/05/19 12:59 Dose: 25 mls/hr Potassium Phosphate 15 mmol/ (Premix) 250 mls @ 85 mls/hr IV Q3H [facility] Stop: 08/04/19 17:27 Last Admin: 08/04/19 16:50 Dose: 85 mls/hr Ketamine HCl 50 mg/ Sodium (Chloride) 50 mls @ 18.6 mls/hr IV ASDIRECTED [facility] Magnesium Sulfate 2 gm/ Premix 50 mls @ 25 mls/hr IV Q6H [facility] Stop: 08/06/19 09:59 Last Admin: 08/06/19 07:20 Dose: 25 mls/hr Linezolid 600 mg/ Premix 300 mls @ 300 mls/hr IV Q12H [facility] Last Admin: 08/08/19 09:21 Dose: 300 mls/hr Fluconazole/Sodium Chloride (400 mg/ Premix) 200 mls @ 100 mls/hr IV DAILY [facility] Stop: 08/12/19 10:59 Last Admin: 08/08/19 11:00 Dose: 100 mls/hr Fluconazole/Sodium Chloride (400 mg/ Premix) 200 mls @ 100 mls/hr IV Q24H [facility] Stop: 08/12/19 07:59 Iohexol (Omnipaque) 20 ml PO ONETIME ONE Stop: 08/03/19 13:22 Last Admin: 08/03/19 13:45 Dose: 20 ml Ketamine HCl (Ketalar) 31 mg IV ASDIRECTED [facility] Lidocaine/Epinephrine (Xylocaine 1% With Epinephrine 1:100,000) Confirm Administered Dose 50 ml .ROUTE .STK-MED ONE Stop: 08/03/19 06:40 Linezolid (Zyvox) 600 mg IRR .STK-MED ONE Stop: 08/05/19 10:36 Last Admin: 08/05/19 10:35 Dose: 600 mg Meropenem (Merrem) Confirm Administered Dose 500 mg .ROUTE .STK-MED ONE Stop: 08/03/19 06:39 Meropenem (Merrem) Confirm Administered Dose 500 mg .ROUTE .STK-MED ONE Stop: 08/05/19 07:30 Last Admin: 08/05/19 10:35 Dose: 500 mg Midazolam HCl (Versed 1 Mg/Ml) Confirm Administered Dose 2 mg .ROUTE .STK-MED ONE Stop: 08/03/19 07:07 Midazolam HCl (Versed 1 Mg/Ml) Confirm Administered Dose 2 mg .ROUTE .STK-MED ONE Stop: 08/07/19 06:55 Neostigmine Methylsulfate (Neostigmine) Confirm Administered Dose 5 mg .ROUTE .STK-MED ONE Stop: 08/05/19 07:39 Ondansetron HCl (Zofran) Confirm Administered Dose 4 mg .ROUTE .STK-MED ONE Stop: 08/05/19 07:39 Propofol (Diprivan 20 Ml) Confirm Administered Dose 200 mg .ROUTE .STK-MED ONE Stop: 08/03/19 07:07 Propofol (Diprivan 20 Ml) Confirm Administered Dose 200 mg .ROUTE .STK-MED ONE Stop: 08/03/19 07:38 Propofol (Diprivan 20 Ml) Confirm Administered Dose 200 mg .ROUTE .STK-MED ONE Stop: 08/05/19 07:39 Propofol (Diprivan 20 Ml) Confirm Administered Dose 200 mg .ROUTE .STK-MED ONE Stop: 08/07/19 06:56 Rocuronium [place] (Zemuron) Confirm Administered Dose 50 mg .ROUTE .STK-MED ONE Stop: 08/05/19 07:39 Succinylcholine Chloride (Quelicin) Confirm Administered Dose 200 mg .ROUTE .STK -MED ONE Stop: 08/05/19 07:39 Tizanidine HCl (Zanaflex) 4 mg PO DAILY [facility] Stop: 08/07/19 19:01 Last Admin: 08/07/19 19:08 Dose: 4 mg - Exam Quality Assessment: DVT Prophylaxis General: Alert, Oriented, Cooperative, Moderate Distress Lungs: Clear to Auscultation, Normal Respiratory Effort Cardiovascular: Regular Rate, Regular Rhythm, No Murmurs GI/Abdominal Exam: Soft, Non-Tender, No Organomegaly, No Distention Extremities: Non-Tender, No Pedal Edema Sepsis Event Note - Evaluation Sepsis Screening Result: No Definite Risk - Focused Exam Vital Signs: Vital Signs Temp Pulse Resp BP BP Pulse Ox 08/09/19 13:11 95 08/09/19 10:59 97.9 F 98 18 127/46 L 08/09/19 07:50 98.3 F 79 15 119/52 L 97 08/09/19 07:32 98 08/09/19 04:37 99.2 F 80 18 122/54 L 98 Date Exam was Performed: 08/09/19 Time Exam was Performed: 13:53 Consult PN Assessment/Plan Problem List Initiated/Reviewed/Updated: Yes My Orders Last 24 Hours: My Active Orders 08/08/19 13:00 Pantoprazole [ProTONIX IV] 40 mg IVPUSH Q12H 08/09/19 09:13 Transfuse Red Blood Cells [COMM] Urgent 08/12/19 05:11 LACTATE DEHYDROGENASE,LDH [CHEM] AM RETICULOCYTE COUNT [HEME] AM Plan: ASSESSMENT AND RECOMMENDATIONS ANEMIA-going evidence of hemolysis, no significant improvement in hemoglobin following transfusion yesterday. Bilirubin is elevated following transfusion and LDH remains significantly elevated. Serum haptoglobin did come back and was within normal range. Urine hemosiderin is still pending. Reviewed again today with hematology they have recommended transfusion to keep hemoglobin greater than 7 and continue to monitor. Plan for follow-up reticulocyte count and LDH on Monday, May 4. -Plan is to transfuse as needed to maintain hemoglobin level of greater than 7 -Further discussion with Heme/Onc in a.m. concerning follow-up hemoglobin level -CBC in a.m. -urine hemosiderin pending -Reassess LDH in a.m. -Transfuse 1 unit of red blood cells today
[2019-08-09] MEDS: Folic Acid 1 MG in Sodium Chloride 0.9% 50 ML IV SCH (18:28)
[2019-08-09] MEDS: Melatonin 3 MG Tab PO SCH (20:48)
[2019-08-09] MEDS: OLANZapine 5 MG Tab PO PRN (21:00)
[2019-08-09] MEDS: Sodium Chloride 0.9% 1,000 ML IV SCH (23:44)
[2019-08-10] MEDS: Pantoprazole 40 MG Vial IVPUSH SCH ×2 (00:55→12:34)
[2019-08-10] MEDS: hydrOXYzine HCl 25 MG Tab PO PRN ×5 (00:55→21:03)
[2019-08-10] MEDS: Acetaminophen 325 MG Tab PO SCH ×4 (03:38→21:04)
[2019-08-10] MEDS: Clindamycin Phosphate 900 MG in Sodium Chloride 0.9% 100 ML IV SCH ×3 (05:11→21:04)
[2019-08-10] MEDS: Magnesium Sulfate/Water 2 GM in Premix Bag 1 BAG IV SCH ×3 (05:53→17:06)
[2019-08-10] MEDS: DULoxetine 30 MG Cap PO SCH (09:24)
[2019-08-10] MEDS: Lactobacillus Rhamnosus GG (Probiotic) Cap PO SCH ×2 (09:24→21:03)
[2019-08-10] MEDS: Fluconazole/Normal Saline 400 MG in Premix Bag 1 BAG IV SCH (09:25)
[2019-08-10] MEDS: Cyclobenzaprine 10 MG Tab PO PRN ×2 (09:50→21:03)
--- NOTE | 2019-08-10 10:22 | PCM.CONSN ---
- General Info Date of Service: 08/10/19 Subjective Update: Ms. Foley has been stable since yesterday, afebrile with good vital signs. Hemoglobin following transfusion of 1 unit of red blood cells yesterday is up to 7.5. She denies significant shortness of breath, chest pain, or lightheadedness. Functional Status: Reports: Tolerating Diet, Ambulating - Review of Systems General: Reports: Weakness. Denies: Fever, Chills Pulmonary: Reports: No Symptoms Cardiovascular: Reports: No Symptoms Gastrointestinal: Reports: Abdominal Pain. Denies: Difficulty Swallowing, Nausea, Vomiting - Patient Data Vitals - Most Recent: Last Vital Signs Temp 96.9 F 08/10/19 07:42 Pulse 84 08/10/19 07:42 Resp 16 08/10/19 07:42 BP 130/62 08/10/19 07:42 Pulse Ox 96 08/10/19 07:42 Weight - Most Recent: 176 lb I&O - Last 24 Hours: Intake & Output 08/09/19 08/10/19 08/10/19 22:59 06:59 14:59 Intake Total 3031 917 200 Output Total 1310 1754 500 Balance 1721 -837 -300 Lab Results Last 24 Hours: Laboratory Results - last 24 hr 08/05/19 08/06/19 08/08/19 Range/Units 04:00 10:00 12:30 WBC (4.5-11.0) K/uL RBC (3.30-5.50) M/uL Hgb (12.0-15.0) g/dL Hct (36.0-48.0) % MCV (80-98) fL MCH (27-31) pg MCHC (32-36) % Plt Count (150-400) K/uL Sodium (140-148) mmol/L Potassium (3.6-5.2) mmol/L Chloride (100-108) mmol/L Carbon Dioxide (21-32) mmol/L Anion Gap (5.0-14.0) mmol/L BUN (7-18) mg/dL Creatinine (0.6-1.0) mg/dL Est Cr Clr Drug Dosing mL/min Estimated GFR (MDRD) (>60) Glucose (74-106) mg/dL Calcium (8.5-10.1) mg/dL Phosphorus (2.5-4.9) mg/dL Total Bilirubin (0.2-1.0) mg/dL AST (15-37) U/L ALT (12-78) U/L Alkaline Phosphatase (46-116) U/L NT-Pro-B Natriuret Pep (5-125) pg/mL Total Protein (6.4-8.2) g/dL Albumin (3.4-5.0) g/dL Globulin (2.3-3.5) g/dL Albumin/Globulin Ratio (1.2-2.2) Vitamin B12 (193-986) pg/ml Folate (8.6-58.9) ng/ml Blood Type A POSITIVE Gel Antibody Screen Positive A* Antibody Identification Anti-K Direct AHG Gel w BRIANNA Negative (NEGATIVE) Crossmatch See Detail See Detail See Detail Tx Rx Implicated Unit 1 Unit 1 Component Prbc Urine Blood Large Reaction Clerical Check Acceptable Pre-Trans Blood Type A positive Pre-Trans Vis Hemolysis Negative Pre-Trans Icterus Negative Pre-Trans NE[facility]IA[facility] IgG (Gel) Negative Post-Trans Blood Type A positive Post-Tx Visible Hemolys 2+ Post-Trans Icterus 4+ Post-Trans NE[facility] IgG (Gel) Negative Reaction Interpretation 08/10/19 08/10/19 Range/Units 04:13 04:13 WBC 4.1 L (4.5-11.0) K/uL RBC 2.77 L (3.30-5.50) M/uL Hgb 7.5 L (12.0-15.0) g/dL Hct 24.8 L (36.0-48.0) % MCV 90 (80-98) fL MCH 27 (27-31) pg MCHC 30 L (32-36) % Plt Count 128 L (150-400) K/uL Sodium 137 L (140-148) mmol/L Potassium 4.2 (3.6-5.2) mmol/L Chloride 104 (100-108) mmol/L Carbon Dioxide 25 (21-32) mmol/L Anion Gap 12.2 (5.0-14.0) mmol/L BUN 21 H (7-18) mg/dL Creatinine 1.5 H (0.6-1.0) mg/dL Est Cr Clr Drug Dosing 39.27 mL/min Estimated GFR (MDRD) 36 L (>60) Glucose 116 H (74-106) mg/dL Calcium 8.0 L (8.5-10.1) mg/dL Phosphorus 4.2 (2.5-4.9) mg/dL Total Bilirubin 1.9 H (0.2-1.0) mg/dL AST 36 (15-37) U/L ALT 19 (12-78) U/L Alkaline Phosphatase 85 (46-116) U/L NT-Pro-B Natriuret Pep 910 H (5-125) pg/mL Total Protein 6.2 L (6.4-8.2) g/dL Albumin 2.0 L (3.4-5.0) g/dL Globulin 4.2 H (2.3-3.5) g/dL Albumin/Globulin Ratio 0.5 L (1.2-2.2) Vitamin B12 377 (193-986) pg/ml Folate 12.7 (8.6-58.9) ng/ml Blood Type Gel Antibody Screen Antibody Identification Direct AHG Gel w BRIANNA (NEGATIVE) Crossmatch Tx Rx Implicated Unit 1 Unit 1 Component Urine Blood Reaction Clerical Check Pre-Trans Blood Type Pre-Trans Vis Hemolysis Pre-Trans Icterus Pre-Trans NE[place]MIA[facility] IgG (Gel) Post-Trans Blood Type Post-Tx Visible Hemolys Post-Trans Icterus Post-Trans NE[facility] IgG (Gel) Reaction Interpretation Med Orders - Current: Current Medications Acetaminophen (Tylenol) 650 mg PO Q6H [facility] Last Admin: 08/10/19 09:25 Dose: 650 mg Cyclobenzaprine HCl (Flexeril) 10 mg PO Q8H PRN PRN Reason: MUSCLE SPASM Last Admin: 08/10/19 09:50 Dose: 10 mg Duloxetine HCl (Cymbalta) 60 mg PO DAILY [facility] Last Admin: 08/10/19 09:24 Dose: 60 mg Hydromorphone HCl (Dilaudid Forklift Picker 15 Mg In Ns 30 Ml) 0 mg IV ASDIRECTED PRN; Protocol PRN Reason: PAIN Last Admin: 08/09/19 19:57 Dose: 15 mg Hydroxyzine HCl (Atarax) 50 mg PO Q4H PRN PRN Reason: Pain Last Admin: 08/10/19 09:50 Dose: 50 mg Folic Acid 1 mg/ Sodium (Chloride) 50.2 mls @ 200 mls/hr IV Q24H [facility] Last Admin: 08/09/19 18:28 Dose: 200 mls/hr Magnesium Sulfate 2 gm/ Premix 50 mls @ 25 mls/hr IV Q6H [facility] Stop: 08/11/19 07:59 Last Admin: 08/10/19 05:53 Dose: 25 mls/hr Clindamycin Phosphate 900 mg/ (Sodium Chloride) 106 mls @ 212 mls/hr IV Q8H [facility] Last Admin: 08/10/19 05:11 Dose: 212 mls/hr Fluconazole/Sodium Chloride (400 mg/ Premix) 200 mls @ 100 mls/hr IV Q24H [facility] Stop: 08/12/19 11:59 Last Admin: 08/10/19 09:25 Dose: 100 mls/hr Sodium Chloride (Normal Saline) 1,000 mls @ 0 mls/hr IV ASDIRECTED [facility] Last Admin: 08/09/19 23:44 Dose: 25 mls/hr Imipramine HCl (Imipramine Hcl) 200 mg PO BEDTIME [facility] Last Admin: 08/09/19 20:49 Dose: 200 mg Lactobacillus Rhamnosus (Culturelle) 2 cap PO BID [facility] Last Admin: 08/10/19 09:24 Dose: 2 cap Melatonin (Melatonin) 9 mg PO BEDTIME [facility] Last Admin: 08/09/19 20:48 Dose: 9 mg Naloxone HCl (Narcan) 0.1 mg IV ASDIRECTED PRN PRN Reason: decreased respiratory rate Olanzapine (Zyprexa) 5 mg PO Q12H PRN PRN Reason: ANX Last Admin: 08/09/19 21:00 Dose: 5 mg Pantoprazole Sodium (Protonix Iv) 40 mg IVPUSH Q12H [facility] Last Admin: 08/10/19 00:55 Dose: 40 mg Sumatriptan Succinate (Imitrex) 50 mg PO ASDIRECTED PRN PRN Reason: HEADACHE Discontinued Medications Bupivacaine HCl (Marcaine 0.5%) Confirm Administered Dose 50 ml .ROUTE .STK-MED ONE Stop: 08/03/19 06:39 Ropivacaine 40 ml/Dexamethasone 8 mg/Epinephrine HCl 0.4 mg/ Sodium Chloride 37.6 ml 0 ml NERVRT ASDIRECTED [facility] Last Admin: 08/03/19 07:25 Dose: 80 syringe Ropivacaine 40 ml/Dexamethasone 8 mg/Epinephrine HCl 0.4 mg/ Sodium Chloride 37.6 ml 0 ml NERVRT ASDIRECTED [facility] Last Admin: 08/05/19 10:38 Dose: 80 syringe Dexamethasone (Dexamethasone) Confirm Administered Dose 4 mg .ROUTE .STK-MED ONE Stop: 08/05/19 07:39 Fentanyl (Sublimaze) Confirm Administered Dose 100 mcg .ROUTE .STK-MED ONE Stop: 08/03/19 07:07 Fentanyl (Sublimaze) Confirm Administered Dose 250 mcg .ROUTE .STK-MED ONE Stop: 08/05/19 07:40 Fentanyl (Sublimaze) Confirm Administered Dose 100 mcg .ROUTE .STK-MED ONE Stop: 08/05/19 10:30 Fentanyl (Sublimaze) Confirm Administered Dose 100 mcg .ROUTE .STK-MED ONE Stop: 08/07/19 06:55 Furosemide (Lasix) 20 mg IVPUSH ONETIME ONE Stop: 08/05/19 11:26 Last Admin: 08/05/19 11:14 Dose: 20 mg Furosemide (Lasix) 20 mg IVPUSH ONETIME ONE Stop: 08/06/19 10:01 Last Admin: 08/06/19 15:32 Dose: Not Given Furosemide (Lasix) 20 mg IVPUSH ONETIME ONE Stop: 08/09/19 07:31 Last Admin: 08/09/19 07:43 Dose: 20 mg Furosemide (Lasix) 20 mg IVPUSH ONETIME ONE Stop: 08/09/19 14:01 Last Admin: 08/09/19 14:30 Dose: Not Given Glycopyrrolate (Robinul) Confirm Administered Dose 1 mg .ROUTE .STK-MED ONE Stop: 08/05/19 07:39 Glycopyrrolate (Glycopyrrolate) 0.4 mg IVPUSH ONETIME ONE Stop: 08/07/19 07:16 Last Admin: 08/07/19 07:09 Dose: 0.4 mg Hydromorphone HCl (Dilaudid Forklift Picker 15 Mg In Ns 30 Ml) 0 mg IV ASDIRECTED PRN; Protocol PRN Reason: [employer] PAIN [employer]OL Last Admin: 08/03/19 15:56 Dose: 15 mg Hydromorphone HCl (Dilaudid Forklift Picker 15 Mg In Ns 30 Ml) 15 mg IV ASDIRECTED [facility]; Protocol Last Admin: 08/05/19 23:19 Dose: 15 mg Hydroxyzine HCl (Vistaril) 100 mg IM Q4H PRN PRN Reason: PAIN Last Admin: 08/05/19 17:54 Dose: 100 mg Hydroxyzine HCl (Atarax) 100 mg PO Q4H PRN PRN Reason: Pain Last Admin: 08/05/19 22:58 Dose: 100 mg Hydroxyzine HCl (Atarax) 100 mg PO Q4H PRN PRN Reason: Pain Last Admin: 08/06/19 03:02 Dose: 100 mg Chromium/Copper/Manganese/Seleni/Zn 1 ml/ Multivitamins/Minerals 10 ml/ Lactated Ringer's 1,011 mls @ 250 mls/hr IV ONETIME ONE Stop: 08/02/19 16:32 Last Admin: 08/02/19 13:22 Dose: 250 mls/hr Dextrose/Lactated Ringer's (Dextrose 5%-Lactated Ringers) 1,000 mls @ 0 mls/hr IV ASDIRECTED [facility] Last Admin: 08/09/19 10:04 Dose: 100 mls/hr Levofloxacin/Dextrose 500 mg/ (Premix) 100 mls @ 100 mls/hr IV Q24H [facility] Last Admin: 08/03/19 15:03 Dose: Not Given Levofloxacin/Dextrose 500 mg/ (Premix) 100 mls @ 100 mls/hr IV Q24H [facility] Last Admin: 08/07/19 09:21 Dose: 100 mls/hr Magnesium Sulfate 2 gm/ Premix 50 mls @ 25 mls/hr IV Q6H [facility] Stop: 08/06/19 05:59 Last Admin: 08/05/19 12:59 Dose: 25 mls/hr Potassium Phosphate 15 mmol/ (Premix) 250 mls @ 85 mls/hr IV Q3H [facility] Stop: 08/04/19 17:27 Last Admin: 08/04/19 16:50 Dose: 85 mls/hr Ketamine HCl 50 mg/ Sodium (Chloride) 50 mls @ 18.6 mls/hr IV ASDIRECTED [facility] Magnesium Sulfate 2 gm/ Premix 50 mls @ 25 mls/hr IV Q6H [facility] Stop: 08/06/19 09:59 Last Admin: 08/06/19 07:20 Dose: 25 mls/hr Linezolid 600 mg/ Premix 300 mls @ 300 mls/hr IV Q12H [facility] Last Admin: 08/08/19 09:21 Dose: 300 mls/hr Fluconazole/Sodium Chloride (400 mg/ Premix) 200 mls @ 100 mls/hr IV DAILY [facility] Stop: 08/12/19 10:59 Last Admin: 08/08/19 11:00 Dose: 100 mls/hr Fluconazole/Sodium Chloride (400 mg/ Premix) 200 mls @ 100 mls/hr IV Q24H [facility] Stop: 08/12/19 07:59 Iohexol (Omnipaque) 20 ml PO ONETIME ONE Stop: 08/03/19 13:22 Last Admin: 08/03/19 13:45 Dose: 20 ml Ketamine HCl (Ketalar) 31 mg IV ASDIRECTED [facility] Lidocaine/Epinephrine (Xylocaine 1% With Epinephrine 1:100,000) Confirm Administered Dose 50 ml .ROUTE .STK-MED ONE Stop: 08/03/19 06:40 Linezolid (Zyvox) 600 mg IRR .STK-MED ONE Stop: 08/05/19 10:36 Last Admin: 08/05/19 10:35 Dose: 600 mg Meropenem (Merrem) Confirm Administered Dose 500 mg .ROUTE .STK-MED ONE Stop: 08/03/19 06:39 Meropenem (Merrem) Confirm Administered Dose 500 mg .ROUTE .STK-MED ONE Stop: 08/05/19 07:30 Last Admin: 08/05/19 10:35 Dose: 500 mg Midazolam HCl (Versed 1 Mg/Ml) Confirm Administered Dose 2 mg .ROUTE .STK-MED ONE Stop: 08/03/19 07:07 Midazolam HCl (Versed 1 Mg/Ml) Confirm Administered Dose 2 mg .ROUTE .STK-MED ONE Stop: 08/07/19 06:55 Neostigmine Methylsulfate (Neostigmine) Confirm Administered Dose 5 mg .ROUTE .STK-MED ONE Stop: 08/05/19 07:39 Ondansetron HCl (Zofran) Confirm Administered Dose 4 mg .ROUTE .STK-MED ONE Stop: 08/05/19 07:39 Propofol (Diprivan 20 Ml) Confirm Administered Dose 200 mg .ROUTE .STK-MED ONE Stop: 08/03/19 07:07 Propofol (Diprivan 20 Ml) Confirm Administered Dose 200 mg .ROUTE .STK-MED ONE Stop: 08/03/19 07:38 Propofol (Diprivan 20 Ml) Confirm Administered Dose 200 mg .ROUTE .STK-MED ONE Stop: 08/05/19 07:39 Propofol (Diprivan 20 Ml) Confirm Administered Dose 200 mg .ROUTE .STK-MED ONE Stop: 08/07/19 06:56 Rocuronium Datto (Zemuron) Confirm Administered Dose 50 mg .ROUTE .STK-MED ONE Stop: 08/05/19 07:39 Succinylcholine Chloride (Quelicin) Confirm Administered Dose 200 mg .ROUTE .STK -MED ONE Stop: 08/05/19 07:39 Tizanidine HCl (Zanaflex) 4 mg PO DAILY [facility] Stop: 08/07/19 19:01 Last Admin: 08/07/19 19:08 Dose: 4 mg - Exam Quality Assessment: DVT Prophylaxis General: Alert, Oriented, Cooperative, Mild Distress Lungs: Clear to Auscultation, Normal Respiratory Effort Cardiovascular: Regular Rate, Regular Rhythm, No Murmurs Extremities: Non-Tender, No Pedal Edema Sepsis Event Note - Evaluation Sepsis Screening Result: No Definite Risk - Focused Exam Vital Signs: Vital Signs Temp Temp Pulse Resp BP Pulse Ox 08/10/19 07:42 96.9 F 84 16 130/62 96 08/10/19 07:30 94 L 08/10/19 07:16 94 L 08/10/19 03:40 96.2 F L 80 14 103/47 L 98 08/10/19 02:17 96 08/09/19 23:36 96.5 F L 72 14 96/62 95 Date Exam was Performed: 08/10/19 Time Exam was Performed: 10:18 Consult PN Assessment/Plan Problem List Initiated/Reviewed/Updated: Yes My Orders Last 24 Hours: My Active Orders 08/12/19 05:11 LACTATE DEHYDROGENASE,LDH [CHEM] AM RETICULOCYTE COUNT [HEME] AM Plan: ASSESSMENT AND RECOMMENDATIONS ANEMIA-hemoglobin up to 7.5 following transfusion of 1 unit of red blood cells yesterday. She remains asymptomatic with the anemia, bilirubin improved over the last 24 hours -Plan is to transfuse as needed to maintain hemoglobin level of greater than 7 -Follow-up with hematology by phone on Monday, August 4 -CBC in a.m. -Repeat LDH and reticulocyte count on Monday, August 11 -urine hemosiderin pending
[2019-08-10] MEDS: HYDROmorphone/Normal Saline 15 MG/30 ML PCA IV PRN (14:01)
[2019-08-10] MEDS: Folic Acid 1 MG in Sodium Chloride 0.9% 50 ML IV SCH (16:23)
[2019-08-10] MEDS: OLANZapine 5 MG Tab PO PRN (17:00)
[2019-08-10] MEDS: Melatonin 3 MG Tab PO SCH (21:04)
[2019-08-11] MEDS: Magnesium Sulfate/Water 2 GM in Premix Bag 1 BAG IV SCH ×2 (01:31→06:44)
[2019-08-11] MEDS: hydrOXYzine HCl 25 MG Tab PO PRN ×4 (01:32→20:17)
[2019-08-11] MEDS: Pantoprazole 40 MG Vial IVPUSH SCH ×2 (01:32→14:26)
[2019-08-11] MEDS: Acetaminophen 325 MG Tab PO SCH ×4 (03:16→22:15)
[2019-08-11] MEDS: Clindamycin Phosphate 900 MG in Sodium Chloride 0.9% 100 ML IV SCH ×3 (06:07→22:14)
[2019-08-11] MEDS: HYDROmorphone/Normal Saline 15 MG/30 ML PCA IV PRN ×2 (06:11→20:44)
[2019-08-11] MEDS: Lactobacillus Rhamnosus GG (Probiotic) Cap PO SCH ×2 (08:37→20:17)
[2019-08-11] MEDS: DULoxetine 30 MG Cap PO SCH (08:38)
[2019-08-11] MEDS: Cyclobenzaprine 10 MG Tab PO PRN ×2 (08:43→18:18)
--- NOTE | 2019-08-11 10:29 | PCM.CONSN ---
- General Info Date of Service: 08/11/19 Subjective Update: Ms. Foley has experienced further drop in hemoglobin today to 6.7, transfusion of 1 unit of red blood cells has been ordered by Dr. Reno. She remains active walking in the hallways several times a day and sitting in the chair. She denies significant shortness of breath, lightheadedness, or chest pain. Functional Status: Reports: Tolerating Diet, Ambulating - Review of Systems General: Reports: Weakness. Denies: Fever, Chills Pulmonary: Reports: No Symptoms Cardiovascular: Reports: No Symptoms Gastrointestinal: Reports: Abdominal Pain. Denies: Difficulty Swallowing, Hematochezia, Melena, Nausea, Vomiting - Patient Data Vitals - Most Recent: Last Vital Signs Temp 97.7 F 08/11/19 10:19 Pulse 75 08/11/19 10:19 Resp 16 08/11/19 10:19 BP 105/49 L 08/11/19 10:19 Pulse Ox 97 08/11/19 10:19 Weight - Most Recent: 176 lb I&O - Last 24 Hours: Intake & Output 08/10/19 08/11/19 08/11/19 22:59 06:59 14:59 Intake Total 1181 595 0 Output Total 995 600 350 Balance 186 -5 -350 Lab Results Last 24 Hours: Laboratory Results - last 24 hr 08/07/19 08/08/19 08/11/19 Range/Units 21:55 12:30 04:48 WBC 4.0 L (4.5-11.0) K/uL RBC 2.47 L (3.30-5.50) M/uL Hgb 6.7 L* (12.0-15.0) g/dL Hct 22.2 L (36.0-48.0) % MCV 90 (80-98) fL MCH 27 (27-31) pg MCHC 30 L (32-36) % Plt Count 155 (150-400) K/uL Neut % (Auto) 70 H (36-66) % Lymph % (Auto) 22 L (24-44) % Randall % (Auto) 8 H (2-6) % Eos % (Auto) 0 L (2-4) % Baso % (Auto) 0 (0-1) % Sodium (140-148) mmol/L Potassium (3.6-5.2) mmol/L Chloride (100-108) mmol/L Carbon Dioxide (21-32) mmol/L Anion Gap (5.0-14.0) mmol/L BUN (7-18) mg/dL Creatinine (0.6-1.0) mg/dL Est Cr Clr Drug Dosing mL/min Estimated GFR (MDRD) (>60) Glucose (74-106) mg/dL Calcium (8.5-10.1) mg/dL Phosphorus (2.5-4.9) mg/dL Total Bilirubin (0.2-1.0) mg/dL AST (15-37) U/L ALT (12-78) U/L Alkaline Phosphatase (46-116) U/L NT-Pro-B Natriuret Pep (5-125) pg/mL Total Protein (6.4-8.2) g/dL Albumin (3.4-5.0) g/dL Globulin (2.3-3.5) g/dL Albumin/Globulin Ratio (1.2-2.2) Urine Hemosiderin Negative (Negative) Blood Type A POSITIVE Gel Antibody Screen Positive A* Antibody Identification Anti-K Crossmatch See Detail 08/11/19 Range/Units 04:48 WBC (4.5-11.0) K/uL RBC (3.30-5.50) M/uL Hgb (12.0-15.0) g/dL Hct (36.0-48.0) % MCV (80-98) fL MCH (27-31) pg MCHC (32-36) % Plt Count (150-400) K/uL Neut % (Auto) (36-66) % Lymph % (Auto) (24-44) % Randall % (Auto) (2-6) % Eos % (Auto) (2-4) % Baso % (Auto) (0-1) % Sodium 136 L (140-148) mmol/L Potassium 4.1 (3.6-5.2) mmol/L Chloride 104 (100-108) mmol/L Carbon Dioxide 25 (21-32) mmol/L Anion Gap 11.1 (5.0-14.0) mmol/L BUN 18 (7-18) mg/dL Creatinine 1.6 H (0.6-1.0) mg/dL Est Cr Clr Drug Dosing 36.82 mL/min Estimated GFR (MDRD) 33 L (>60) Glucose 126 H (74-106) mg/dL Calcium 7.9 L (8.5-10.1) mg/dL Phosphorus 4.5 (2.5-4.9) mg/dL Total Bilirubin 1.0 (0.2-1.0) mg/dL AST 23 (15-37) U/L ALT 18 (12-78) U/L Alkaline Phosphatase 89 (46-116) U/L NT-Pro-B Natriuret Pep 333 H (5-125) pg/mL Total Protein 6.2 L (6.4-8.2) g/dL Albumin 2.0 L (3.4-5.0) g/dL Globulin 4.2 H (2.3-3.5) g/dL Albumin/Globulin Ratio 0.5 L (1.2-2.2) Urine Hemosiderin (Negative) Blood Type Gel Antibody Screen Antibody Identification Crossmatch Med Orders - Current: Current Medications Acetaminophen (Tylenol) 650 mg PO Q6H [facility] Last Admin: 08/11/19 03:16 Dose: 650 mg Cyclobenzaprine HCl (Flexeril) 10 mg PO Q8H PRN PRN Reason: MUSCLE SPASM Last Admin: 08/11/19 08:43 Dose: 10 mg Duloxetine HCl (Cymbalta) 60 mg PO DAILY [facility] Last Admin: 08/11/19 08:38 Dose: 60 mg Hydromorphone HCl (Dilaudid Rod Puller 15 Mg In Ns 30 Ml) 0 mg IV ASDIRECTED PRN; Protocol PRN Reason: PAIN Last Admin: 08/11/19 06:11 Dose: 15 mg Hydroxyzine HCl (Atarax) 50 mg PO Q4H PRN PRN Reason: Pain Last Admin: 08/11/19 08:42 Dose: 50 mg Folic Acid 1 mg/ Sodium (Chloride) 50.2 mls @ 200 mls/hr IV Q24H [facility] Last Admin: 08/10/19 16:23 Dose: 200 mls/hr Clindamycin Phosphate 900 mg/ (Sodium Chloride) 106 mls @ 212 mls/hr IV Q8H [facility] Last Admin: 08/11/19 06:07 Dose: 212 mls/hr Fluconazole/Sodium Chloride (400 mg/ Premix) 200 mls @ 100 mls/hr IV Q24H [facility] Stop: 08/12/19 11:59 Last Admin: 08/10/19 09:25 Dose: 100 mls/hr Sodium Chloride (Normal Saline) 1,000 mls @ 0 mls/hr IV ASDIRECTED [facility] Last Admin: 08/09/19 23:44 Dose: 25 mls/hr Imipramine HCl (Imipramine Hcl) 200 mg PO BEDTIME [facility] Last Admin: 08/10/19 21:03 Dose: 200 mg Lactobacillus Rhamnosus (Culturelle) 2 cap PO BID [facility] Last Admin: 08/11/19 08:37 Dose: 2 cap Melatonin (Melatonin) 9 mg PO BEDTIME [facility] Last Admin: 08/10/19 21:04 Dose: 9 mg Naloxone HCl (Narcan) 0.1 mg IV ASDIRECTED PRN PRN Reason: decreased respiratory rate Olanzapine (Zyprexa) 5 mg PO Q12H PRN PRN Reason: ANX Last Admin: 08/10/19 17:00 Dose: 5 mg Pantoprazole Sodium (Protonix Iv) 40 mg IVPUSH Q12H [facility] Last Admin: 08/11/19 01:32 Dose: 40 mg Sumatriptan Succinate (Imitrex) 50 mg PO ASDIRECTED PRN PRN Reason: HEADACHE Discontinued Medications Bupivacaine HCl (Marcaine 0.5%) Confirm Administered Dose 50 ml .ROUTE .STK-MED ONE Stop: 08/03/19 06:39 Ropivacaine 40 ml/Dexamethasone 8 mg/Epinephrine HCl 0.4 mg/ Sodium Chloride 37.6 ml 0 ml NERVRT ASDIRECTED [facility] Last Admin: 08/03/19 07:25 Dose: 80 syringe Ropivacaine 40 ml/Dexamethasone 8 mg/Epinephrine HCl 0.4 mg/ Sodium Chloride 37.6 ml 0 ml NERVRT ASDIRECTED [facility] Last Admin: 08/05/19 10:38 Dose: 80 syringe Dexamethasone (Dexamethasone) Confirm Administered Dose 4 mg .ROUTE .STK-MED ONE Stop: 08/05/19 07:39 Fentanyl (Sublimaze) Confirm Administered Dose 100 mcg .ROUTE .STK-MED ONE Stop: 08/03/19 07:07 Fentanyl (Sublimaze) Confirm Administered Dose 250 mcg .ROUTE .STK-MED ONE Stop: 08/05/19 07:40 Fentanyl (Sublimaze) Confirm Administered Dose 100 mcg .ROUTE .STK-MED ONE Stop: 08/05/19 10:30 Fentanyl (Sublimaze) Confirm Administered Dose 100 mcg .ROUTE .STK-MED ONE Stop: 08/07/19 06:55 Furosemide (Lasix) 20 mg IVPUSH ONETIME ONE Stop: 08/05/19 11:26 Last Admin: 08/05/19 11:14 Dose: 20 mg Furosemide (Lasix) 20 mg IVPUSH ONETIME ONE Stop: 08/06/19 10:01 Last Admin: 08/06/19 15:32 Dose: Not Given Furosemide (Lasix) 20 mg IVPUSH ONETIME ONE Stop: 08/09/19 07:31 Last Admin: 08/09/19 07:43 Dose: 20 mg Furosemide (Lasix) 20 mg IVPUSH ONETIME ONE Stop: 08/09/19 14:01 Last Admin: 08/09/19 14:30 Dose: Not Given Glycopyrrolate (Robinul) Confirm Administered Dose 1 mg .ROUTE .STK-MED ONE Stop: 08/05/19 07:39 Glycopyrrolate (Glycopyrrolate) 0.4 mg IVPUSH ONETIME ONE Stop: 08/07/19 07:16 Last Admin: 08/07/19 07:09 Dose: 0.4 mg Hydromorphone HCl (Dilaudid Rod Puller 15 Mg In Ns 30 Ml) 0 mg IV ASDIRECTED PRN; Protocol PRN Reason: [employer] PAIN CONTROL Last Admin: 08/03/19 15:56 Dose: 15 mg Hydromorphone HCl (Dilaudid Rod Puller 15 Mg In Ns 30 Ml) 15 mg IV ASDIRECTED [facility]; Protocol Last Admin: 08/05/19 23:19 Dose: 15 mg Hydroxyzine HCl (Vistaril) 100 mg IM Q4H PRN PRN Reason: PAIN Last Admin: 08/05/19 17:54 Dose: 100 mg Hydroxyzine HCl (Atarax) 100 mg PO Q4H PRN PRN Reason: Pain Last Admin: 08/05/19 22:58 Dose: 100 mg Hydroxyzine HCl (Atarax) 100 mg PO Q4H PRN PRN Reason: Pain Last Admin: 08/06/19 03:02 Dose: 100 mg Chromium/Copper/Manganese/Seleni/Zn 1 ml/ Multivitamins/Minerals 10 ml/ Lactated Ringer's 1,011 mls @ 250 mls/hr IV ONETIME ONE Stop: 08/02/19 16:32 Last Admin: 08/02/19 13:22 Dose: 250 mls/hr Dextrose/Lactated Ringer's (Dextrose 5%-Lactated Ringers) 1,000 mls @ 0 mls/hr IV ASDIRECTED [facility] Last Admin: 08/09/19 10:04 Dose: 100 mls/hr Levofloxacin/Dextrose 500 mg/ (Premix) 100 mls @ 100 mls/hr IV Q24H [facility] Last Admin: 08/03/19 15:03 Dose: Not Given Levofloxacin/Dextrose 500 mg/ (Premix) 100 mls @ 100 mls/hr IV Q24H [facility] Last Admin: 08/07/19 09:21 Dose: 100 mls/hr Magnesium Sulfate 2 gm/ Premix 50 mls @ 25 mls/hr IV Q6H [facility] Stop: 08/06/19 05:59 Last Admin: 08/05/19 12:59 Dose: 25 mls/hr Potassium Phosphate 15 mmol/ (Premix) 250 mls @ 85 mls/hr IV Q3H [facility] Stop: 08/04/19 17:27 Last Admin: 08/04/19 16:50 Dose: 85 mls/hr Ketamine HCl 50 mg/ Sodium (Chloride) 50 mls @ 18.6 mls/hr IV ASDIRECTED [facility] Magnesium Sulfate 2 gm/ Premix 50 mls @ 25 mls/hr IV Q6H [facility] Stop: 08/06/19 09:59 Last Admin: 08/06/19 07:20 Dose: 25 mls/hr Linezolid 600 mg/ Premix 300 mls @ 300 mls/hr IV Q12H [facility] Last Admin: 08/08/19 09:21 Dose: 300 mls/hr Magnesium Sulfate 2 gm/ Premix 50 mls @ 25 mls/hr IV Q6H [facility] Stop: 08/11/19 07:59 Last Admin: 08/11/19 06:44 Dose: 25 mls/hr Fluconazole/Sodium Chloride (400 mg/ Premix) 200 mls @ 100 mls/hr IV DAILY [facility] Stop: 08/12/19 10:59 Last Admin: 08/08/19 11:00 Dose: 100 mls/hr Fluconazole/Sodium Chloride (400 mg/ Premix) 200 mls @ 100 mls/hr IV Q24H [facility] Stop: 08/12/19 07:59 Iohexol (Omnipaque) 20 ml PO ONETIME ONE Stop: 08/03/19 13:22 Last Admin: 08/03/19 13:45 Dose: 20 ml Ketamine HCl (Ketalar) 31 mg IV ASDIRECTED [facility] Lidocaine/Epinephrine (Xylocaine 1% With Epinephrine 1:100,000) Confirm Administered Dose 50 ml .ROUTE .STK-MED ONE Stop: 08/03/19 06:40 Linezolid (Zyvox) 600 mg IRR .STK-MED ONE Stop: 08/05/19 10:36 Last Admin: 08/05/19 10:35 Dose: 600 mg Meropenem (Merrem) Confirm Administered Dose 500 mg .ROUTE .STK-MED ONE Stop: 08/03/19 06:39 Meropenem (Merrem) Confirm Administered Dose 500 mg .ROUTE .STK-MED ONE Stop: 08/05/19 07:30 Last Admin: 08/05/19 10:35 Dose: 500 mg Midazolam HCl (Versed 1 Mg/Ml) Confirm Administered Dose 2 mg .ROUTE .STK-MED ONE Stop: 08/03/19 07:07 Midazolam HCl (Versed 1 Mg/Ml) Confirm Administered Dose 2 mg .ROUTE .STK-MED ONE Stop: 08/07/19 06:55 Neostigmine Methylsulfate (Neostigmine) Confirm Administered Dose 5 mg .ROUTE .STK-MED ONE Stop: 08/05/19 07:39 Ondansetron HCl (Zofran) Confirm Administered Dose 4 mg .ROUTE .STK-MED ONE Stop: 08/05/19 07:39 Propofol (Diprivan 20 Ml) Confirm Administered Dose 200 mg .ROUTE .STK-MED ONE Stop: 08/03/19 07:07 Propofol (Diprivan 20 Ml) Confirm Administered Dose 200 mg .ROUTE .STK-MED ONE Stop: 08/03/19 07:38 Propofol (Diprivan 20 Ml) Confirm Administered Dose 200 mg .ROUTE .STK-MED ONE Stop: 08/05/19 07:39 Propofol (Diprivan 20 Ml) Confirm Administered Dose 200 mg .ROUTE .STK-MED ONE Stop: 08/07/19 06:56 Rocuronium Sycamore (Zemuron) Confirm Administered Dose 50 mg .ROUTE .STK-MED ONE Stop: 08/05/19 07:39 Succinylcholine Chloride (Quelicin) Confirm Administered Dose 200 mg .ROUTE .STK -MED ONE Stop: 08/05/19 07:39 Tizanidine HCl (Zanaflex) 4 mg PO DAILY [facility] Stop: 08/07/19 19:01 Last Admin: 08/07/19 19:08 Dose: 4 mg - Exam Quality Assessment: DVT Prophylaxis General: Alert, Oriented, Cooperative, Mild Distress Lungs: Clear to Auscultation, Normal Respiratory Effort Cardiovascular: Regular Rate, Regular Rhythm, No Murmurs Extremities: Non-Tender, No Pedal Edema Sepsis Event Note - Evaluation Sepsis Screening Result: No Definite Risk - Focused Exam Vital Signs: Vital Signs Temp Temp Pulse Resp BP Pulse Ox 08/11/19 10:19 97.7 F 75 16 105/49 L 97 08/11/19 09:52 97.9 F 76 16 108/52 L 96 08/11/19 09:37 97.8 F 72 16 108/48 L 08/11/19 09:22 97.2 F 77 16 110/45 L 08/11/19 09:08 97.1 F 76 16 119/52 L 08/11/19 07:28 94 L 08/11/19 07:00 96.9 F 78 16 111/51 L 97 08/11/19 01:36 97.8 F 75 16 96/40 L 97 08/11/19 01:07 99 Date Exam was Performed: 08/11/19 Time Exam was Performed: 10:23 Consult PN Assessment/Plan Problem List Initiated/Reviewed/Updated: Yes My Orders Last 24 Hours: My Active Orders 08/11/19 17:00 HGB [HEMOGLOBIN] [HEME] Stat 08/12/19 05:11 LACTATE DEHYDROGENASE,LDH [CHEM] AM RETICULOCYTE COUNT [HEME] AM Plan: ASSESSMENT AND RECOMMENDATIONS 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 Hemoglobin has dropped to 6.7 this morning. She has remained active walking in the hallways several times a day, currently denies chest pain, shortness of breath, or lightheadedness. Urine hemosiderin has finally come back and is negative -Transfuse 1 unit of red blood cells today -Follow-up hemoglobin later this afternoon and in a.m. -Reticulocyte count and LDH in a.m. -Plan is to transfuse as needed to maintain hemoglobin level of greater than 7 -Follow-up with hematology by phone on August 11
[2019-08-11] MEDS: Fluconazole/Normal Saline 400 MG in Premix Bag 1 BAG IV SCH (12:07)
[2019-08-11] MEDS: Folic Acid 1 MG in Sodium Chloride 0.9% 50 ML IV SCH (16:21)
[2019-08-11] MEDS: OLANZapine 5 MG Tab PO PRN (20:17)
[2019-08-11] MEDS: Melatonin 3 MG Tab PO SCH (20:17)
[2019-08-12] MEDS: hydrOXYzine HCl 25 MG Tab PO PRN ×6 (00:52→23:25)
[2019-08-12] MEDS: Pantoprazole 40 MG Vial IVPUSH SCH ×2 (00:52→13:38)
[2019-08-12] MEDS: Cyclobenzaprine 10 MG Tab PO PRN ×3 (04:21→23:25)
[2019-08-12] MEDS: Acetaminophen 325 MG Tab PO SCH ×4 (04:22→21:15)
[2019-08-12] MEDS: Sodium Chloride 0.9% 1,000 ML IV SCH (04:27)
[2019-08-12] MEDS: Clindamycin Phosphate 900 MG in Sodium Chloride 0.9% 100 ML IV SCH ×3 (05:36→21:16)
[2019-08-12] MEDS: DULoxetine 30 MG Cap PO SCH (08:09)
[2019-08-12] MEDS: Lactobacillus Rhamnosus GG (Probiotic) Cap PO SCH ×2 (08:09→21:16)
[2019-08-12] MEDS: OLANZapine 5 MG Tab PO PRN ×2 (08:09→23:25)
[2019-08-12] MEDS: Fluconazole/Normal Saline 400 MG in Premix Bag 1 BAG IV SCH (10:51)
--- NOTE | 2019-08-12 11:57 | PCM.CONSN ---
- General Info Date of Service: 08/12/19 Subjective Update: No acute events overnight. Patient reports an increase in her abdominal pain today and feels very fatigued. No significant shortness of breath. She has been walking around. Only able to eat small quantities at this time. No fevers. Tolerated blood transfusion yesterday and hemoglobin did improve last night but is back down to less than 7 this morning. No obvious source for blood loss. I did talk to the implementation specialist again this morning. The persistent anemia remains a mystery. LDH is slightly better than it was but remains elevated. Reticulocyte count is low. - Review of Systems General: Reports: Fatigue. Denies: Fever Gastrointestinal: Reports: Abdominal Pain - Patient Data Vitals - Most Recent: Last Vital Signs Temp 36.7 C 08/12/19 10:12 Pulse 74 08/12/19 10:12 Resp 16 08/12/19 10:12 BP 112/57 L 08/12/19 10:12 Pulse Ox 97 08/12/19 10:12 Weight - Most Recent: 79.832 kg I&O - Last 24 Hours: Intake & Output 08/11/19 08/12/19 08/12/19 22:59 06:59 14:59 Intake Total 167 1224 200 Output Total 1158 403 550 Balance -991 821 -350 Lab Results Last 24 Hours: Laboratory Results - last 24 hr 08/08/19 08/11/19 08/12/19 Range/Units 12:30 16:58 04:10 WBC (4.5-11.0) K/uL RBC (3.30-5.50) M/uL Hgb 8.3 L (12.0-15.0) g/dL Hct (36.0-48.0) % MCV (80-98) fL MCH (27-31) pg MCHC (32-36) % Plt Count (150-400) K/uL Neut % (Auto) (36-66) % Lymph % (Auto) (24-44) % Bailey % (Auto) (2-6) % Eos % (Auto) (2-4) % Baso % (Auto) (0-1) % Percent Retic 2.7 H (0.5-1.5) % Sodium (140-148) mmol/L Potassium (3.6-5.2) mmol/L Chloride (100-108) mmol/L Carbon Dioxide (21-32) mmol/L Anion Gap (5.0-14.0) mmol/L BUN (7-18) mg/dL Creatinine (0.6-1.0) mg/dL Est Cr Clr Drug Dosing mL/min Estimated GFR (MDRD) (>60) Glucose (74-106) mg/dL Calcium (8.5-10.1) mg/dL Phosphorus (2.5-4.9) mg/dL Magnesium (1.8-2.4) mg/dL Total Bilirubin (0.2-1.0) mg/dL AST (15-37) U/L ALT (12-78) U/L Alkaline Phosphatase (46-116) U/L Lactate Dehydrogenase (82-234) U/L NT-Pro-B Natriuret Pep (5-125) pg/mL Total Protein (6.4-8.2) g/dL Albumin (3.4-5.0) g/dL Globulin (2.3-3.5) g/dL Albumin/Globulin Ratio (1.2-2.2) Blood Type A POSITIVE Gel Antibody Screen Positive A* Antibody Identification Anti-K Crossmatch See Detail 08/12/19 08/12/19 08/12/19 Range/Units 04:10 04:10 04:10 WBC 3.4 L (4.5-11.0) K/uL RBC 2.50 L (3.30-5.50) M/uL Hgb 6.8 L* (12.0-15.0) g/dL Hct 22.5 L (36.0-48.0) % MCV 90 (80-98) fL MCH 27 (27-31) pg MCHC 30 L (32-36) % Plt Count 150 (150-400) K/uL Neut % (Auto) 66 (36-66) % Lymph % (Auto) 24 (24-44) % Bailey % (Auto) 10 H (2-6) % Eos % (Auto) 0 L (2-4) % Baso % (Auto) 0 (0-1) % Percent Retic (0.5-1.5) % Sodium 137 L (140-148) mmol/L Potassium 4.3 (3.6-5.2) mmol/L Chloride 106 (100-108) mmol/L Carbon Dioxide 24 (21-32) mmol/L Anion Gap 11.3 (5.0-14.0) mmol/L BUN 16 (7-18) mg/dL Creatinine 1.6 H (0.6-1.0) mg/dL Est Cr Clr Drug Dosing 36.82 mL/min Estimated GFR (MDRD) 33 L (>60) Glucose 92 (74-106) mg/dL Calcium 7.7 L (8.5-10.1) mg/dL Phosphorus 4.4 (2.5-4.9) mg/dL Magnesium 2.3 D (1.8-2.4) mg/dL Total Bilirubin 1.2 H (0.2-1.0) mg/dL AST 25 (15-37) U/L ALT 21 (12-78) U/L Alkaline Phosphatase 88 (46-116) U/L Lactate Dehydrogenase 945 H (82-234) U/L NT-Pro-B Natriuret Pep 500 H (5-125) pg/mL Total Protein 6.2 L (6.4-8.2) g/dL Albumin 2.0 L (3.4-5.0) g/dL Globulin 4.2 H (2.3-3.5) g/dL Albumin/Globulin Ratio 0.5 L (1.2-2.2) Blood Type Gel Antibody Screen Antibody Identification Crossmatch Med Orders - Current: Current Medications Acetaminophen (Tylenol) 650 mg PO Q6H [facility] Last Admin: 08/12/19 10:50 Dose: 650 mg Cyclobenzaprine HCl (Flexeril) 10 mg PO Q8H PRN PRN Reason: MUSCLE SPASM Last Admin: 08/12/19 04:21 Dose: 10 mg Duloxetine HCl (Cymbalta) 60 mg PO DAILY [facility]SIE Last Admin: 08/12/19 08:09 Dose: 60 mg Hydromorphone HCl (Dilaudid Invasive Physician 15 Mg In Ns 30 Ml) 0 mg IV ASDIRECTED PRN; Protocol PRN Reason: PAIN Last Admin: 08/11/19 20:44 Dose: 15 mg Hydroxyzine HCl (Atarax) 50 mg PO Q4H PRN PRN Reason: Pain Last Admin: 08/12/19 08:15 Dose: 50 mg Folic Acid 1 mg/ Sodium (Chloride) 50.2 mls @ 200 mls/hr IV Q24H [facility] Last Admin: 08/11/19 16:21 Dose: 200 mls/hr Clindamycin Phosphate 900 mg/ (Sodium Chloride) 106 mls @ 212 mls/hr IV Q8H [facility] Last Admin: 08/12/19 05:36 Dose: 212 mls/hr Fluconazole/Sodium Chloride (400 mg/ Premix) 200 mls @ 100 mls/hr IV Q24H [facility] Stop: 08/12/19 11:59 Last Admin: 08/12/19 10:51 Dose: 100 mls/hr Sodium Chloride (Normal Saline) 1,000 mls @ 0 mls/hr IV ASDIRECTED [facility] Last Admin: 08/12/19 04:27 Dose: 25 mls/hr Imipramine HCl (Imipramine Hcl) 200 mg PO BEDTIME [facility] Last Admin: 08/11/19 20:16 Dose: 200 mg Lactobacillus Rhamnosus (Culturelle) 2 cap PO BID [facility] Last Admin: 08/12/19 08:09 Dose: 2 cap Melatonin (Melatonin) 9 mg PO BEDTIME [facility] Last Admin: 08/11/19 20:17 Dose: 9 mg Naloxone HCl (Narcan) 0.1 mg IV ASDIRECTED PRN PRN Reason: decreased respiratory rate Olanzapine (Zyprexa) 5 mg PO Q12H PRN PRN Reason: ANX Last Admin: 08/12/19 08:09 Dose: 5 mg Pantoprazole Sodium (Protonix Iv) 40 mg IVPUSH Q12H [facility] Last Admin: 08/12/19 00:52 Dose: 40 mg Sumatriptan Succinate (Imitrex) 50 mg PO ASDIRECTED PRN PRN Reason: HEADACHE Discontinued Medications Bupivacaine HCl (Marcaine 0.5%) Confirm Administered Dose 50 ml .ROUTE .STK-MED ONE Stop: 08/03/19 06:39 Ropivacaine 40 ml/Dexamethasone 8 mg/Epinephrine HCl 0.4 mg/ Sodium Chloride 37.6 ml 0 ml NERVRT ASDIRECTED [facility] Last Admin: 08/03/19 07:25 Dose: 80 syringe Ropivacaine 40 ml/Dexamethasone 8 mg/Epinephrine HCl 0.4 mg/ Sodium Chloride 37.6 ml 0 ml NERVRT ASDIRECTED [facility] Last Admin: 08/05/19 10:38 Dose: 80 syringe Dexamethasone (Dexamethasone) Confirm Administered Dose 4 mg .ROUTE .STK-MED ONE Stop: 08/05/19 07:39 Fentanyl (Sublimaze) Confirm Administered Dose 100 mcg .ROUTE .STK-MED ONE Stop: 08/03/19 07:07 Fentanyl (Sublimaze) Confirm Administered Dose 250 mcg .ROUTE .STK-MED ONE Stop: 08/05/19 07:40 Fentanyl (Sublimaze) Confirm Administered Dose 100 mcg .ROUTE .STK-MED ONE Stop: 08/05/19 10:30 Fentanyl (Sublimaze) Confirm Administered Dose 100 mcg .ROUTE .STK-MED ONE Stop: 08/07/19 06:55 Furosemide (Lasix) 20 mg IVPUSH ONETIME ONE Stop: 08/05/19 11:26 Last Admin: 08/05/19 11:14 Dose: 20 mg Furosemide (Lasix) 20 mg IVPUSH ONETIME ONE Stop: 08/06/19 10:01 Last Admin: 08/06/19 15:32 Dose: Not Given Furosemide (Lasix) 20 mg IVPUSH ONETIME ONE Stop: 08/09/19 07:31 Last Admin: 08/09/19 07:43 Dose: 20 mg Furosemide (Lasix) 20 mg IVPUSH ONETIME ONE Stop: 08/09/19 14:01 Last Admin: 08/09/19 14:30 Dose: Not Given Glycopyrrolate (Robinul) Confirm Administered Dose 1 mg .ROUTE .STK-MED ONE Stop: 08/05/19 07:39 Glycopyrrolate (Glycopyrrolate) 0.4 mg IVPUSH ONETIME ONE Stop: 08/07/19 07:16 Last Admin: 08/07/19 07:09 Dose: 0.4 mg Hydromorphone HCl (Dilaudid Invasive Physician 15 Mg In Ns 30 Ml) 0 mg IV ASDIRECTED PRN; Protocol 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 Last Admin: 08/03/19 15:56 Dose: 15 mg Hydromorphone HCl (Dilaudid Invasive Physician 15 Mg In Ns 30 Ml) 15 mg IV ASDIRECTED [facility]SIE; Protocol Last Admin: 08/05/19 23:19 Dose: 15 mg Hydroxyzine HCl (Vistaril) 100 mg IM Q4H PRN PRN Reason: PAIN Last Admin: 08/05/19 17:54 Dose: 100 mg Hydroxyzine HCl (Atarax) 100 mg PO Q4H PRN PRN Reason: Pain Last Admin: 08/05/19 22:58 Dose: 100 mg Hydroxyzine HCl (Atarax) 100 mg PO Q4H PRN PRN Reason: Pain Last Admin: 08/06/19 03:02 Dose: 100 mg Chromium/Copper/Manganese/Seleni/Zn 1 ml/ Multivitamins/Minerals 10 ml/ Lactated Ringer's 1,011 mls @ 250 mls/hr IV ONETIME ONE Stop: 08/02/19 16:32 Last Admin: 08/02/19 13:22 Dose: 250 mls/hr Dextrose/Lactated Ringer's (Dextrose 5%-Lactated Ringers) 1,000 mls @ 0 mls/hr IV ASDIRECTED [facility] Last Admin: 08/09/19 10:04 Dose: 100 mls/hr Levofloxacin/Dextrose 500 mg/ (Premix) 100 mls @ 100 mls/hr IV Q24H [facility] Last Admin: 08/03/19 15:03 Dose: Not Given Levofloxacin/Dextrose 500 mg/ (Premix) 100 mls @ 100 mls/hr IV Q24H [facility] Last Admin: 08/07/19 09:21 Dose: 100 mls/hr Magnesium Sulfate 2 gm/ Premix 50 mls @ 25 mls/hr IV Q6H [facility] Stop: 08/06/19 05:59 Last Admin: 08/05/19 12:59 Dose: 25 mls/hr Potassium Phosphate 15 mmol/ (Premix) 250 mls @ 85 mls/hr IV Q3H [facility] Stop: 08/04/19 17:27 Last Admin: 08/04/19 16:50 Dose: 85 mls/hr Ketamine HCl 50 mg/ Sodium (Chloride) 50 mls @ 18.6 mls/hr IV ASDIRECTED [facility] Magnesium Sulfate 2 gm/ Premix 50 mls @ 25 mls/hr IV Q6H [facility] Stop: 08/06/19 09:59 Last Admin: 08/06/19 07:20 Dose: 25 mls/hr Linezolid 600 mg/ Premix 300 mls @ 300 mls/hr IV Q12H [facility] Last Admin: 08/08/19 09:21 Dose: 300 mls/hr Magnesium Sulfate 2 gm/ Premix 50 mls @ 25 mls/hr IV Q6H [facility] Stop: 08/11/19 07:59 Last Admin: 08/11/19 06:44 Dose: 25 mls/hr Fluconazole/Sodium Chloride (400 mg/ Premix) 200 mls @ 100 mls/hr IV DAILY [facility] Stop: 08/12/19 10:59 Last Admin: 08/08/19 11:00 Dose: 100 mls/hr Fluconazole/Sodium Chloride (400 mg/ Premix) 200 mls @ 100 mls/hr IV Q24H [facility] Stop: 08/12/19 07:59 Iohexol (Omnipaque) 20 ml PO ONETIME ONE Stop: 08/03/19 13:22 Last Admin: 08/03/19 13:45 Dose: 20 ml Ketamine HCl (Ketalar) 31 mg IV ASDIRECTED [facility] Lidocaine/Epinephrine (Xylocaine 1% With Epinephrine 1:100,000) Confirm Administered Dose 50 ml .ROUTE .STK-MED ONE Stop: 08/03/19 06:40 Linezolid (Zyvox) 600 mg IRR .STK-MED ONE Stop: 08/05/19 10:36 Last Admin: 08/05/19 10:35 Dose: 600 mg Meropenem (Merrem) Confirm Administered Dose 500 mg .ROUTE .STK-MED ONE Stop: 08/03/19 06:39 Meropenem (Merrem) Confirm Administered Dose 500 mg .ROUTE .STK-MED ONE Stop: 08/05/19 07:30 Last Admin: 08/05/19 10:35 Dose: 500 mg Midazolam HCl (Versed 1 Mg/Ml) Confirm Administered Dose 2 mg .ROUTE .STK-MED ONE Stop: 08/03/19 07:07 Midazolam HCl (Versed 1 Mg/Ml) Confirm Administered Dose 2 mg .ROUTE .STK-MED ONE Stop: 08/07/19 06:55 Neostigmine Methylsulfate (Neostigmine) Confirm Administered Dose 5 mg .ROUTE .STK-MED ONE Stop: 08/05/19 07:39 Ondansetron HCl (Zofran) Confirm Administered Dose 4 mg .ROUTE .STK-MED ONE Stop: 08/05/19 07:39 Propofol (Diprivan 20 Ml) Confirm Administered Dose 200 mg .ROUTE .STK-MED ONE Stop: 08/03/19 07:07 Propofol (Diprivan 20 Ml) Confirm Administered Dose 200 mg .ROUTE .STK-MED ONE Stop: 08/03/19 07:38 Propofol (Diprivan 20 Ml) Confirm Administered Dose 200 mg .ROUTE .STK-MED ONE Stop: 08/05/19 07:39 Propofol (Diprivan 20 Ml) Confirm Administered Dose 200 mg .ROUTE .STK-MED ONE Stop: 08/07/19 06:56 Rocuronium Torrey (Zemuron) Confirm Administered Dose 50 mg .ROUTE .STK-MED ONE Stop: 08/05/19 07:39 Succinylcholine Chloride (Quelicin) Confirm Administered Dose 200 mg .ROUTE .STK -MED ONE Stop: 08/05/19 07:39 Tizanidine HCl (Zanaflex) 4 mg PO DAILY [facility] Stop: 08/07/19 19:01 Last Admin: 08/07/19 19:08 Dose: 4 mg - Exam Quality Assessment: No: Supplemental Oxygen General: Alert, Oriented, Cooperative, No Acute Distress Lungs: Normal Respiratory Effort GI/Abdominal Exam: Soft, No Distention Extremities: No Pedal Edema Skin: Warm, Dry Psy/Mental Status: Alert, Normal Affect Sepsis Event Note - Evaluation Sepsis Screening Result: No Definite Risk - Focused Exam Vital Signs: Vital Signs Temp Pulse Resp BP BP Pulse Ox 08/12/19 10:12 36.7 C 74 16 112/57 L 97 08/12/19 07:15 97 08/12/19 07:09 36.2 C 78 16 133/64 97 08/12/19 04:23 36.5 C 77 14 110/58 L 98 08/12/19 01:15 100 Date Exam was Performed: 08/12/19 Time Exam was Performed: 12:43 Consult PN Assessment/Plan Problem List Initiated/Reviewed/Updated: Yes Plan: ASSESSMENT AND RECOMMENDATIONS 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 Hemoglobin improved yesterday but back to below 7 again this morning. Case was discussed with hematology again this morning. He recommended transfusing several units with the goal to get above 9 and then discharging the patient when she is stable from a surgical standpoint with outpatient follow-up. Still no definitive answer for why the patient is having what appears to be hemolysis versus potentially sequestration in the spleen. -Transfuse 1 unit of red blood cells today -Follow-up hemoglobin in the morning -Plan is to transfuse as needed to maintain hemoglobin level of greater than 7 -Follow-up with hematology by phone or as an outpatient (Dr Alverto Meraz ) Rad Pedersen MD
--- NOTE | 2019-08-12 12:19 | PN ---
DATE OF SERVICE: 08/12/2019 SUBJECTIVE: Vital signs have been stable. Her pain has been controlled. Oral intakes 1600, ostomy put out 350, and urine output 1750. [place] drains have put out 6 and 5 respectively in the past 24 hours. REVIEW OF SYSTEMS: Remainder of review of systems negative for any pertinent positives and negatives. LABORATORY DATA: Hemoglobin 6.7 yesterday, she received 1 unit of blood at 1600, hemoglobin 8.3. This morning, hemoglobin is 6.8. LDH 945. BNP 500. OBJECTIVE: GENERAL: Aline Foley is a 58-year-old female. She is little short of breath, just came back from the bathroom. VITAL SIGNS: TPR at 0423, 97.7, 77, 14, blood pressure 110/58, HEENT: Negative. NECK: Supple. HEART: Regular rate and rhythm. LUNGS: Clear. ABDOMEN: Ileostomy is leaking right now. Her will be bringing her some bags, otherwise intact. [place] drains intact. Dressing otherwise is dry and intact, has been packed twice daily. Per nursing report, it is granulating in nicely. ASSESSMENT: 1. Exploratory laparotomy with: a. Drainage of subfascial intraabdominal abscess. b. Drainage of retroperitoneal abdominal abscess. c. Debridement of abdominal wall for superior intraabdominal and pelvic retroperitoneal abscesses and focal necrosis. d. Date of surgery: 08/05/2019. Surgeon: Shamar Reno MD. 2. Persistent anemia despite transfusion of 9 units of blood. 3. Hypomagnesium, chronic. PLAN: 1. Type and crossmatch 2 units of packed red blood cells. 2. Give 1 unit of packed red blood cells. 3. Discontinue [place] drains x2. 4. Check CBC, CMP, mag, phos, and BNP in a.m. 5. We will evaluate p.r.n. or in a.m. Aline Landeros PA-C /[id number]
--- NOTE | 2019-08-12 12:47 | PN ---
DATE OF SERVICE: 08/04/2019 The patient has been afebrile with stable vital signs. CT scan did show 2 probably infected fluid collections, one below the umbilicus and one further down in the pelvis. Both these have similar fluid and little bit of air present. Her hemoglobin today is 7.2, so we will transfuse her 2 units of packed RBCs and plan to get those areas drained today. We will keep the present antibiotics, which is Levaquin as this appears to be preventing at this point significant septic response. If things worsen over the next 24 hours, we will need to move things up earlier in terms of exploration, but it will be nice to have some more blood available as these 2 units given today are the only ones available at immediate present time due to the red antibodies in the blood requiring blood being sent from [place]. Otherwise, her laboratories show a bump up in the bilirubin to 2.8. We saw this with the last hospitalization and it spontaneously came down. Rest of her liver function tests were basically normal, so this is probably illustrative of Gilbert disease. Otherwise, her phosphate is somewhat low. We will give her some additional potassium phosphate today and recheck some laboratories in the morning. Plan to proceed with exploration with general anesthetic, TAP block, and ketamine infusions tomorrow morning. Shamar Reno MD /[id number]
--- NOTE | 2019-08-12 13:08 | OR ---
DATE OF PROCEDURE: 08/07/2019 SURGEON: Shamar Reno MD PREOPERATIVE DIAGNOSIS: Rule out gastrointestinal bleeding. POSTOPERATIVE DIAGNOSES: 1. Very mild antral gastritis. 2. No gastrointestinal bleeding source noted on upper endoscopy. OPERATIVE PROCEDURE: Esophagogastroduodenoscopy with antral biopsies for CLOtest. ANESTHESIA: IV sedation. INDICATIONS FOR PROCEDURE: This is a 58-year-old presenting with some ongoing problems with drop in hemoglobin. Currently, it is becoming more apparent that this is related to hemolysis, but to rule out any upper GI bleeding source, an upper endoscopy is planned for completion of the workup. Potential risks of the procedure including bleeding and perforation were discussed and the patient wishes to proceed. DETAILS OF PROCEDURE: The patient was taken to the operating room and placed in a left lateral decubitus position. IV sedation was administered, after which the upper GI endoscope was passed orally through the length of the esophagus and into stomach with retroflexion view of the fundus, and thereafter through the pyloric channel and into the duodenum to the junction of the 3rd and 4th portions. Findings included normal hypopharynx, larynx, upper esophageal sphincter, and esophageal body. There was a small hiatal hernia, but not associated with any gross inflammation or other abnormalities of the esophagogastric junction mucosal line. In the stomach, there was some very mild patchy gastritis in the antrum. Otherwise, this was unremarkable. Pyloric channel and visualized portions of the duodenum were unremarkable. At this point, biopsies were obtained from the antrum and sent for CLOtest for H. pylori. Minimal bleeding from the biopsy sites was seen and the procedure was then concluded. The patient was taken to the recovery room in satisfactory condition. Shamar Reno MD /[id number]
--- NOTE | 2019-08-12 13:51 | PN ---
DATE OF SERVICE: 08/11/2019 The patient has been afebrile with stable vital signs. Her hemoglobin did drop to 6.7 overnight and given this, we will transfuse 1 unit of packed RBCs today, recheck some labs. Otherwise, continue with present management. The drain is still putting out a little bit, and we will leave it in place for the next 24 hours and get in the morning. Otherwise, we will continue to follow this case over the next few days to see if the tendency for hemolysis is subsiding. If not, a consideration for a splenectomy will be undertaken. It is notable that she has a chronically enlarged spleen and also some abdominal varices related to some likely portal hypertension making the splenectomy a reasonable option should the hemolysis not subside. Shamar Reno MD /[id number]
--- NOTE | 2019-08-12 14:06 | PN ---
DATE OF SERVICE: 08/07/2019 The patient has been afebrile with stable vital signs, still complaining of quite a bit of pain. At that time, she was quite drowsy, so we elected not to increase the amount of pain medication. Otherwise, oral intake has been fairly good. Upper endoscopy showed no evidence of upper GI bleeding source, and clinical picture continues to be consistent with hemolysis. It is notable that her ferritin level is over 1800, likely related to the hemolysis and hemoglobin dropped from the mid 8s to 7.5 overnight. The hemolysis workup is continuing today per Dr. Dickerson. Otherwise, her dressing is being changed and is clean and will resume oral intake today. We will not give her any additional blood today so as to get a good idea in terms of how the blood loss from hemolysis is going. Otherwise, maximize activity, work with pulmonary toilet, nothing new in the cultures. We will continue the present antibiotics. Shamar Reno MD /[id number]
--- NOTE | 2019-08-12 14:14 | PN ---
DATE OF SERVICE: 08/10/2019 The patient has been afebrile with stable vital signs. No major problems have been noted. Overall, her pain control appears to be gradually improving as time goes by. Particularly with dressing changes, it was fairly uncomfortable. Oral intake has been fairly good and her activity level has been improving spontaneously. Wound was inspected and found to be clean. [place] drainage is quite minimal and will probably pull those out tomorrow. Lab showed the hemoglobin having gone from 7.1 yesterday to 7.5 today, after 1 unit of packed RBCs. I think we will hold off giving any blood today, to get some idea how well the resolution of the inflammation may improve the ongoing hemolysis, as suggested might happen per the consulting photogrammetric surveyor. The patient's creatinine is up little bit at 1.5 from 1.3, but she did have a net diuresis of around 2 L over the last 24 hours, so that would probably be expected. The bilirubin is 1.9 this morning, consistent with the patient receiving blood, as that has been the pattern. At this point, we will maximize activity, continue present antibiotics consisting of clindamycin. With that, we will be giving her some probiotics on an ongoing basis just to make sure there is no impairment in terms of micronutrients needed for red blood cell formation. Folate and B12 were checked, and these were both in the normal range. Ferritin checked earlier was extremely high, consistent with hemolysis. At this point, we will not transfuse the patient today, again to see how things are going. Otherwise, maximize activity and work with pulmonary toilet. Shamar Reno MD /[id number]
[2019-08-12] MEDS: HYDROmorphone/Normal Saline 15 MG/30 ML PCA IV PRN (14:23)
[2019-08-12] MEDS: Folic Acid 1 MG in Sodium Chloride 0.9% 50 ML IV SCH (16:04)
[2019-08-12] MEDS: Melatonin 3 MG Tab PO SCH (21:15)
[2019-08-13] MEDS: Pantoprazole 40 MG Vial IVPUSH SCH (00:37)
[2019-08-13] MEDS: Acetaminophen 325 MG Tab PO SCH ×4 (03:13→21:09)
[2019-08-13] MEDS: hydrOXYzine HCl 25 MG Tab PO PRN ×5 (04:21→23:57)
[2019-08-13] MEDS: Clindamycin Phosphate 900 MG in Sodium Chloride 0.9% 100 ML IV SCH (05:00)
[2019-08-13] MEDS: Sodium Chloride 0.9% 1,000 ML IV SCH (05:05)
[2019-08-13] MEDS ORDERED: Loperamide 2 MG Cap PO PRN (06:50)
[2019-08-13] MEDS: Cyclobenzaprine 10 MG Tab PO PRN ×3 (07:42→23:57)
--- NOTE | 2019-08-13 08:51 | PN ---
DATE OF SERVICE: 08/13/2019 SUBJECTIVE: Aline had a temperature max of 101.3 at 2200, 08/12/2019. Vital signs otherwise have been stable. Oral intake 1010, urine output 900, and she has had 1575 out of her ostomy, which has been loose. Labs this morning, hemoglobin 8.2 after 1 unit of packed red blood cells, creatinine is 1.4, and total bilirubin is 3. BNP 1175. Remainder of review of systems negative for any pertinent positives and negatives. OBJECTIVE: GENERAL: Aline Foley is a pleasant 58-year-old female, sleepy this morning. VITAL SIGNS: TPR at 0311; 98.9, 85, 20, blood pressure 141/75. HEENT: Negative. NECK: Supple. HEART: Regular rate and rhythm. LUNGS: Clear. ABDOMEN: Dressings dry and intact. There is redness noted around ileostomy bag and abdominal binder is on. EXTREMITIES: Without peripheral edema. ASSESSMENT: 1. Exploratory laparotomy with: a. Drainage of subfascial intraabdominal abscess. b. Drainage of retroperitoneal abdominal abscess. c. Debridement of abdominal wall for superior intraabdominal and pelvic retroperitoneal abscesses and focal necrosis. d. Date of surgery: 08/05/2019. Surgeon: Shamar Reno MD. 2. Chronic hypomagnesemia. 3. Multifactorial anemia, 11 units being transfused. PLAN: 1. Give 3 units of packed red blood cells today. 2. Discontinue clindamycin. 3. Lasix 20 mg IV after 2nd unit of packed red blood cells. 4. Lasix 20 mg IV after 3rd unit of packed red blood cells. 5. Imodium 2 mg every 4 hours p.r.n. loose stools. 6. Magnesium 2 g q.6 x48 hours. 7. Discontinue NURSING FACULTY. 8. Dilaudid 6 mg every 6 hours p.r.n. pain. 9. Communication order to put barrier cream around ileostomy site. 10.Check CBC, CMP, phos, and BNP in a.m. 11.Plan discharge in a.m. 12.We will evaluate p.r.n. or in a.m. Hospitalists both have been in contact with Hematology, and the plan is to transfuse as needed to maintain hemoglobin level of greater than 7. Loft Worker would like to follow up with her by phone or as an outpatient, Dr. Paddy Meraz, phone #[phone]. Aline Landeros PA-C /[id number]
[2019-08-13] MEDS ORDERED: Furosemide 20 MG/2 ML VIAL IVPUSH ONE ×4 (09:00→16:30)
[2019-08-13] MEDS: DULoxetine 30 MG Cap PO SCH (09:05)
[2019-08-13] MEDS: Lactobacillus Rhamnosus GG (Probiotic) Cap PO SCH ×2 (09:05→21:09)
[2019-08-13] MEDS: Magnesium Sulfate/Water 2 GM in Premix Bag 1 BAG IV SCH ×3 (09:10→19:44)
--- NOTE | 2019-08-13 10:51 | PCM.CONSN ---
- General Info Date of Service: 08/13/19 Subjective Update: No acute events overnight. The plan is for transition from IV to oral pain medications and the patient is very concerned about pain control with this change. Vital signs have been stable. Hemoglobin is greater than 8 this morning and 3 more units have been ordered. She has not had any fevers. Appetite has been decent. She has been up and walking around. Functional Status: Reports: Pain Controlled, Tolerating Diet - Review of Systems General: Denies: Fever - Patient Data Vitals - Most Recent: Last Vital Signs Temp 36.1 C 08/13/19 10:31 Pulse 81 08/13/19 10:31 Resp 16 08/13/19 10:31 BP 132/67 08/13/19 10:31 Pulse Ox 97 08/13/19 10:31 Weight - Most Recent: 79.832 kg I&O - Last 24 Hours: Intake & Output 08/12/19 08/13/19 08/13/19 22:59 06:59 14:59 Intake Total 1386 831 50 Output Total 750 200 Balance 636 631 50 Lab Results Last 24 Hours: Laboratory Results - last 24 hr 08/08/19 08/12/19 08/13/19 Range/Units 12:30 04:00 04:15 WBC 4.3 L (4.5-11.0) K/uL RBC 3.11 L (3.30-5.50) M/uL Hgb 8.2 L (12.0-15.0) g/dL Hct 27.4 L (36.0-48.0) % MCV 88 (80-98) fL MCH 26 L (27-31) pg MCHC 30 L (32-36) % Plt Count 156 (150-400) K/uL Sodium (140-148) mmol/L Potassium (3.6-5.2) mmol/L Chloride (100-108) mmol/L Carbon Dioxide (21-32) mmol/L Anion Gap (5.0-14.0) mmol/L BUN (7-18) mg/dL Creatinine (0.6-1.0) mg/dL Est Cr Clr Drug Dosing mL/min Estimated GFR (MDRD) (>60) Glucose (74-106) mg/dL Calcium (8.5-10.1) mg/dL Phosphorus (2.5-4.9) mg/dL Magnesium (1.8-2.4) mg/dL Total Bilirubin (0.2-1.0) mg/dL AST (15-37) U/L ALT (12-78) U/L Alkaline Phosphatase (46-116) U/L NT-Pro-B Natriuret Pep (5-125) pg/mL Total Protein (6.4-8.2) g/dL Albumin (3.4-5.0) g/dL Globulin (2.3-3.5) g/dL Albumin/Globulin Ratio (1.2-2.2) Blood Type A POSITIVE Gel Antibody Screen Positive A* Crossmatch See Detail See Detail 08/13/19 Range/Units 04:15 WBC (4.5-11.0) K/uL RBC (3.30-5.50) M/uL Hgb (12.0-15.0) g/dL Hct (36.0-48.0) % MCV (80-98) fL MCH (27-31) pg MCHC (32-36) % Plt Count (150-400) K/uL Sodium 138 L (140-148) mmol/L Potassium 4.3 (3.6-5.2) mmol/L Chloride 106 (100-108) mmol/L Carbon Dioxide 22 (21-32) mmol/L Anion Gap 14.3 H (5.0-14.0) mmol/L BUN 26 H D (7-18) mg/dL Creatinine 1.4 H (0.6-1.0) mg/dL Est Cr Clr Drug Dosing 42.08 mL/min Estimated GFR (MDRD) 38 L (>60) Glucose 102 (74-106) mg/dL Calcium 8.5 (8.5-10.1) mg/dL Phosphorus 3.9 (2.5-4.9) mg/dL Magnesium 1.5 L D (1.8-2.4) mg/dL Total Bilirubin 3.0 H D (0.2-1.0) mg/dL AST 49 H D (15-37) U/L ALT 17 (12-78) U/L Alkaline Phosphatase 98 (46-116) U/L NT-Pro-B Natriuret Pep 1175 H (5-125) pg/mL Total Protein 6.7 (6.4-8.2) g/dL Albumin 2.1 L (3.4-5.0) g/dL Globulin 4.6 H (2.3-3.5) g/dL Albumin/Globulin Ratio 0.5 L (1.2-2.2) Blood Type Gel Antibody Screen Crossmatch Eliud Results Last 24 Hours: Microbiology 08/12/19 21:33 Clostridioides difficile (PCR) - Final Stool / Feces Med Orders - Current: Current Medications Acetaminophen (Tylenol) 650 mg PO Q6H [facility], [facility] Last Admin: 08/13/19 09:05 Dose: 650 mg Cyclobenzaprine HCl (Flexeril) 10 mg PO Q8H PRN PRN Reason: MUSCLE SPASM Last Admin: 08/13/19 07:42 Dose: 10 mg Duloxetine HCl (Cymbalta) 60 mg PO DAILY [facility], [facility] Last Admin: 08/13/19 09:05 Dose: 60 mg Furosemide (Lasix) 20 mg IVPUSH ONETIME ONE Stop: 08/13/19 11:01 Hydromorphone HCl (Dilaudid) 6 mg PO Q4H PRN PRN Reason: Pain Hydroxyzine HCl (Atarax) 50 mg PO Q4H PRN PRN Reason: Pain Last Admin: 08/13/19 10:09 Dose: 50 mg Folic Acid 1 mg/ Sodium (Chloride) 50.2 mls @ 200 mls/hr IV Q24H [facility], [facility] Last Admin: 08/12/19 16:04 Dose: 200 mls/hr Sodium Chloride (Normal Saline) 1,000 mls @ 0 mls/hr IV ASDIRECTED [facility], [facility] Last Admin: 08/13/19 05:05 Dose: 25 mls/hr Magnesium Sulfate 2 gm/ Premix 50 mls @ 25 mls/hr IV Q6H [facility] Stop: 08/16/19 03:59 Last Admin: 08/13/19 09:10 Dose: 25 mls/hr Imipramine HCl (Imipramine Hcl) 200 mg PO BEDTIME [facility] Last Admin: 08/12/19 21:15 Dose: 200 mg Lactobacillus Rhamnosus (Culturelle) 2 cap PO BID [facility] Last Admin: 08/13/19 09:05 Dose: 2 cap Loperamide HCl (Imodium) 2 mg PO Q4H PRN PRN Reason: Diarrhea Melatonin (Melatonin) 9 mg PO BEDTIME [facility] Last Admin: 08/12/19 21:15 Dose: 9 mg Naloxone HCl (Narcan) 0.1 mg IV ASDIRECTED PRN PRN Reason: decreased respiratory rate Olanzapine (Zyprexa) 5 mg PO Q12H PRN PRN Reason: ANX Last Admin: 08/12/19 23:25 Dose: 5 mg Pantoprazole Sodium (Protonix Iv) 40 mg IVPUSH Q12H [facility] Last Admin: 08/13/19 00:37 Dose: 40 mg Sumatriptan Succinate (Imitrex) 50 mg PO ASDIRECTED PRN PRN Reason: HEADACHE Discontinued Medications Bupivacaine HCl (Marcaine 0.5%) Confirm Administered Dose 50 ml .ROUTE .STK-MED ONE Stop: 08/03/19 06:39 Ropivacaine 40 ml/Dexamethasone 8 mg/Epinephrine HCl 0.4 mg/ Sodium Chloride 37.6 ml 0 ml NERVRT ASDIRECTED [facility], [facility] Last Admin: 08/03/19 07:25 Dose: 80 syringe Ropivacaine 40 ml/Dexamethasone 8 mg/Epinephrine HCl 0.4 mg/ Sodium Chloride 37.6 ml 0 ml NERVRT ASDIRECTED [facility], [facility] Last Admin: 08/05/19 10:38 Dose: 80 syringe Dexamethasone (Dexamethasone) Confirm Administered Dose 4 mg .ROUTE .STK-MED ONE Stop: 08/05/19 07:39 Fentanyl (Sublimaze) Confirm Administered Dose 100 mcg .ROUTE .STK-MED ONE Stop: 08/03/19 07:07 Fentanyl (Sublimaze) Confirm Administered Dose 250 mcg .ROUTE .STK-MED ONE Stop: 08/05/19 07:40 Fentanyl (Sublimaze) Confirm Administered Dose 100 mcg .ROUTE .STK-MED ONE Stop: 08/05/19 10:30 Fentanyl (Sublimaze) Confirm Administered Dose 100 mcg .ROUTE .STK-MED ONE Stop: 08/07/19 06:55 Furosemide (Lasix) 20 mg IVPUSH ONETIME ONE Stop: 08/05/19 11:26 Last Admin: 08/05/19 11:14 Dose: 20 mg Furosemide (Lasix) 20 mg IVPUSH ONETIME ONE Stop: 08/06/19 10:01 Last Admin: 08/06/19 15:32 Dose: Not Given Furosemide (Lasix) 20 mg IVPUSH ONETIME ONE Stop: 08/09/19 07:31 Last Admin: 08/09/19 07:43 Dose: 20 mg Furosemide (Lasix) 20 mg IVPUSH ONETIME ONE Stop: 08/09/19 14:01 Last Admin: 08/09/19 14:30 Dose: Not Given Furosemide (Lasix) 20 mg IVPUSH ONETIME ONE Stop: 08/13/19 09:01 Glycopyrrolate (Robinul) Confirm Administered Dose 1 mg .ROUTE .STK-MED ONE Stop: 08/05/19 07:39 Glycopyrrolate (Glycopyrrolate) 0.4 mg IVPUSH ONETIME ONE Stop: 08/07/19 07:16 Last Admin: 08/07/19 07:09 Dose: 0.4 mg Hydromorphone HCl (Dilaudid Car Park Attendant 15 Mg In Ns 30 Ml) 0 mg IV ASDIRECTED PRN; Protocol 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 Last Admin: 08/03/19 15:56 Dose: 15 mg Hydromorphone HCl (Dilaudid Car Park Attendant 15 Mg In Ns 30 Ml) 15 mg IV ASDIRECTED CASSIE; Protocol Last Admin: 08/05/19 23:19 Dose: 15 mg Hydromorphone HCl (Dilaudid Car Park Attendant 15 Mg In Ns 30 Ml) 0 mg IV ASDIRECTED PRN; Protocol PRN Reason: PAIN Last Admin: 08/12/19 14:23 Dose: 15 mg Hydroxyzine HCl (Vistaril) 100 mg IM Q4H PRN PRN Reason: PAIN Last Admin: 08/05/19 17:54 Dose: 100 mg Hydroxyzine HCl (Atarax) 100 mg PO Q4H PRN PRN Reason: Pain Last Admin: 08/05/19 22:58 Dose: 100 mg Hydroxyzine HCl (Atarax) 100 mg PO Q4H PRN PRN Reason: Pain Last Admin: 08/06/19 03:02 Dose: 100 mg Chromium/Copper/Manganese/Seleni/Zn 1 ml/ Multivitamins/Minerals 10 ml/ Lactated Ringer's 1,011 mls @ 250 mls/hr IV ONETIME ONE Stop: 08/02/19 16:32 Last Admin: 08/02/19 13:22 Dose: 250 mls/hr Dextrose/Lactated Ringer's (Dextrose 5%-Lactated Ringers) 1,000 mls @ 0 mls/hr IV ASDIRECTED [facility], [facility] Last Admin: 08/09/19 10:04 Dose: 100 mls/hr Levofloxacin/Dextrose 500 mg/ (Premix) 100 mls @ 100 mls/hr IV Q24H [facility] Last Admin: 08/03/19 15:03 Dose: Not Given Levofloxacin/Dextrose 500 mg/ (Premix) 100 mls @ 100 mls/hr IV Q24H [facility] Last Admin: 08/07/19 09:21 Dose: 100 mls/hr Magnesium Sulfate 2 gm/ Premix 50 mls @ 25 mls/hr IV Q6H [facility] Stop: 08/06/19 05:59 Last Admin: 08/05/19 12:59 Dose: 25 mls/hr Potassium Phosphate 15 mmol/ (Premix) 250 mls @ 85 mls/hr IV Q3H [facility] Stop: 08/04/19 17:27 Last Admin: 08/04/19 16:50 Dose: 85 mls/hr Ketamine HCl 50 mg/ Sodium (Chloride) 50 mls @ 18.6 mls/hr IV ASDIRECTED [facility], [facility] Magnesium Sulfate 2 gm/ Premix 50 mls @ 25 mls/hr IV Q6H [facility] Stop: 08/06/19 09:59 Last Admin: 08/06/19 07:20 Dose: 25 mls/hr Linezolid 600 mg/ Premix 300 mls @ 300 mls/hr IV Q12H [facility] Last Admin: 08/08/19 09:21 Dose: 300 mls/hr Magnesium Sulfate 2 gm/ Premix 50 mls @ 25 mls/hr IV Q6H [facility] Stop: 08/11/19 07:59 Last Admin: 08/11/19 06:44 Dose: 25 mls/hr Fluconazole/Sodium Chloride (400 mg/ Premix) 200 mls @ 100 mls/hr IV DAILY [facility] Stop: 08/12/19 10:59 Last Admin: 08/08/19 11:00 Dose: 100 mls/hr Fluconazole/Sodium Chloride (400 mg/ Premix) 200 mls @ 100 mls/hr IV Q24H [facility] Stop: 08/12/19 07:59 Clindamycin Phosphate 900 mg/ (Sodium Chloride) 106 mls @ 212 mls/hr IV Q8H [facility] Last Admin: 08/13/19 05:00 Dose: 212 mls/hr Fluconazole/Sodium Chloride (400 mg/ Premix) 200 mls @ 100 mls/hr IV Q24H [facility] Stop: 08/12/19 11:59 Last Admin: 08/12/19 10:51 Dose: 100 mls/hr Iohexol (Omnipaque) 20 ml PO ONETIME ONE Stop: 08/03/19 13:22 Last Admin: 08/03/19 13:45 Dose: 20 ml Ketamine HCl (Ketalar) 31 mg IV ASDIRECTED [facility], [facility] Lidocaine/Epinephrine (Xylocaine 1% With Epinephrine 1:100,000) Confirm Administered Dose 50 ml .ROUTE .STK-MED ONE Stop: 08/03/19 06:40 Linezolid (Zyvox) 600 mg IRR .STK-MED ONE Stop: 08/05/19 10:36 Last Admin: 08/05/19 10:35 Dose: 600 mg Meropenem (Merrem) Confirm Administered Dose 500 mg .ROUTE .STK-MED ONE Stop: 08/03/19 06:39 Meropenem (Merrem) Confirm Administered Dose 500 mg .ROUTE .STK-MED ONE Stop: 08/05/19 07:30 Last Admin: 08/05/19 10:35 Dose: 500 mg Midazolam HCl (Versed 1 Mg/Ml) Confirm Administered Dose 2 mg .ROUTE .STK-MED ONE Stop: 08/03/19 07:07 Midazolam HCl (Versed 1 Mg/Ml) Confirm Administered Dose 2 mg .ROUTE .STK-MED ONE Stop: 08/07/19 06:55 Neostigmine Methylsulfate (Neostigmine) Confirm Administered Dose 5 mg .ROUTE .STK-MED ONE Stop: 08/05/19 07:39 Ondansetron HCl (Zofran) Confirm Administered Dose 4 mg .ROUTE .STK-MED ONE Stop: 08/05/19 07:39 Propofol (Diprivan 20 Ml) Confirm Administered Dose 200 mg .ROUTE .STK-MED ONE Stop: 08/03/19 07:07 Propofol (Diprivan 20 Ml) Confirm Administered Dose 200 mg .ROUTE .STK-MED ONE Stop: 08/03/19 07:38 Propofol (Diprivan 20 Ml) Confirm Administered Dose 200 mg .ROUTE .STK-MED ONE Stop: 08/05/19 07:39 Propofol (Diprivan 20 Ml) Confirm Administered Dose 200 mg .ROUTE .STK-MED ONE Stop: 08/07/19 06:56 Rocuronium [place] (Zemuron) Confirm Administered Dose 50 mg .ROUTE .STK-MED ONE Stop: 08/05/19 07:39 Succinylcholine Chloride (Quelicin) Confirm Administered Dose 200 mg .ROUTE .STK -MED ONE Stop: 08/05/19 07:39 Tizanidine HCl (Zanaflex) 4 mg PO DAILY CASSIE Stop: 08/07/19 19:01 Last Admin: 08/07/19 19:08 Dose: 4 mg - Exam Quality Assessment: No: Supplemental Oxygen General: Alert, Oriented, Cooperative, No Acute Distress Lungs: Normal Respiratory Effort GI/Abdominal Exam: Soft, No Distention Psy/Mental Status: Alert, Normal Affect Sepsis Event Note - Evaluation Sepsis Screening Result: No Definite Risk - Focused Exam Vital Signs: Vital Signs Temp Temp Pulse Resp BP BP Pulse Ox 08/13/19 10:31 36.1 C 81 16 132/67 97 08/13/19 10:01 36.6 C 74 14 130/62 95 08/13/19 09:30 36.5 C 78 16 129/63 94 L 08/13/19 09:15 36.5 C 82 16 129/61 94 L 08/13/19 09:00 36.2 C 75 16 134/60 97 08/13/19 08:47 36.3 C 76 14 134/58 L 96 08/13/19 08:39 36.8 C 74 16 133/60 96 08/13/19 07:26 97 08/13/19 07:24 36.8 C 76 16 124/63 98 08/13/19 03:11 37.2 C 85 20 141/75 H 98 08/13/19 01:30 94 L Date Exam was Performed: 08/13/19 Time Exam was Performed: 12:52 Consult PN Assessment/Plan Problem List Initiated/Reviewed/Updated: Yes Plan: ASSESSMENT AND RECOMMENDATIONS 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 Hemoglobin has remained stable overnight. No evidence for bleeding. Seems to be finally getting through the worst of this. She is receiving several units of blood ordered by the surgical service with the hope of improving her hemoglobin level to a safe level for discharge with planned outpatient follow-up. -Transfusion ordered by surgical service today -Follow-up hemoglobin in the morning -Patient will need a hemoglobin checked 72 hours after hospital discharge -She would benefit from outpatient follow-up with hematology in the near future as well -Follow-up with hematology by phone or as an outpatient (Dr Alverto Meraz ) Rad Pedersen MD
[2019-08-13] MEDS: HYDROmorphone 2 MG Tab PO PRN ×4 (11:52→23:57)
[2019-08-13] MEDS: Pantoprazole 40 MG Tab.CR PO SCH (16:16)
[2019-08-13] MEDS: OLANZapine 5 MG Tab PO PRN (16:16)
[2019-08-13] MEDS ORDERED: Folic Acid 1 MG Tab PO SCH (17:00)
[2019-08-13] MEDS: Melatonin 3 MG Tab PO SCH (21:10)
[2019-08-13] MEDS ORDERED: traMADol 50 MG Tab PO ONE (21:35)
[2019-08-14] MEDS: Sodium Chloride 0.9% 1,000 ML IV SCH (02:10)
[2019-08-14] MEDS: Magnesium Sulfate/Water 2 GM in Premix Bag 1 BAG IV SCH ×2 (02:11→07:36)
[2019-08-14] MEDS: Acetaminophen 325 MG Tab PO SCH (04:25)
[2019-08-14] MEDS: HYDROmorphone 2 MG Tab PO PRN ×2 (04:25→08:47)
[2019-08-14] MEDS: hydrOXYzine HCl 25 MG Tab PO PRN ×2 (04:26→08:47)
[2019-08-14] MEDS: Pantoprazole 40 MG Tab.CR PO SCH (07:35)
[2019-08-14] MEDS: DULoxetine 30 MG Cap PO SCH (08:47)
[2019-08-14] MEDS: Lactobacillus Rhamnosus GG (Probiotic) Cap PO SCH (08:47)
--- NOTE | 2019-08-14 11:47 | DISCH ---
ADMISSION DIAGNOSES: 1. 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 2. Low hemoglobin 8.7. Chronic kidney disease stage 3. Red blood cell antibody positive. 3. History of supraventricular tachycardia. 4. Chronic pain syndrome. 5. Crohn's disease. 6. Chronic hypomagnesium. 7. Pancytopenia. DISCHARGE DIAGNOSES: 1. Exploratory laparotomy with: a. Drainage of subfascial intraabdominal abscess. b. Drainage of retroperitoneal abdominal abscess. c. Debridement of abdominal wall for superior intraabdominal and pelvic retroperitoneal abscesses and focal necrosis. Date of surgery 08/05/2019, surgeon Shamar Reno MD. 2. Multifactorial anemia with 14 units of packed red blood cells infused. 3. Chronic hypomagnesium and chronic pain syndrome, chronic kidney disease stage 3, and red blood cell antibody positive. Esophageal gastroduodenoscopy with antral biopsies for CLOtest on 08/07/2019. Postop diagnosis, very mild antral gastritis. No gastrointestinal bleeding source noted on upper endoscopy. HISTORY OF HOSPITALIZATION: Aline Foley is a 58-year-old female, who was seen in the clinic for postop followup on 08/02/2019. She had the above surgery and presented with a hemoglobin of 8.7. She had presented with a painful incision with focal necrosis and she was started on IV hydration and IV antibiotics. On 08/04/2019, her CT showed 2 probable infected fluid collections, 1 below the umbilicus and 1 further in the pelvis. On 08/05/2019, she had her surgery as noted above. Hemoglobin was 7.5. On 08/06/2019, incision was left open for better healing. She was getting dressings changed. Pain was controlled with the STROBOSCOPE OPERATOR. She did have 2 units of packed red blood cells for hemoglobin of 7.5 yesterday and on 08/06/2019 was 8.3. Enrique Dickerson MD, hospitalist is following the patient for hemolysis. On 08/06, she had the EGD, which was negative to rule out any further bleeding. On 08/07/2019, hemoglobin was 7.4. On 08/08/2019, hemoglobin was 7. She received packed red blood cells. Her hospital magnesium did drop, so she was restarted on IV magnesium and antibiotic was changed, Levaquin discontinued and she was started on Zyvox and Diflucan for Staphylococcus simulans and the yeast isolated from her abdominal abscesses. Aline was monitored with CBCs, BNPs, CMPs throughout her hospitalization. Vital signs did remain stable. She received a total of 14 units of packed red blood cells. When she would receive the packed red blood cells, creatinine would remain stable with 1 kidney, but her bilirubin would increase. This was thought to be from inflammatory response and she has had a full workup in other medical facilities. On day of discharge, 08/14/2019, vital signs were stable, afebrile. Pain was controlled with oral Dilaudid, Vistaril. She did receive 1 dose of tramadol during the night. Oral intake was 20/50. Ostomy put out 550 mL. Urine output 1900. Labs morning of discharge; hemoglobin was 11.2, platelets 171, hematocrit 34.6, potassium 3.7, creatinine 1.5, estimated GFR 36, glucose 113, total bilirubin 3.3, AST 54, ALT 19, alkaline phosphatase 118. BNP is 794. Aline was able to be discharged to home in stable condition. PHYSICAL EXAMINATION: GENERAL: Aline Foley is a 58-year-old female. VITAL SIGNS: Height is 5 feet 7 inches, weight is 176 pounds. TPR at 0300; 97, 83, 16. Blood pressure 116/78. HEENT: Negative. NECK: Supple. HEART: Regular rate and rhythm. LUNGS: Clear. ABDOMEN: Ileostomy is in place. There is redness noted around the stoma itself. Open incision has been dressed twice daily. Dressing is dry and intact. EXTREMITIES: Without peripheral edema. DISPOSITION: Discharged to home. CONDITION: Stable and improving. FOLLOWUP APPOINTMENTS: Aline Landeros PA-C Monday08/19/2019 at 8:30 a.m. She is to check a CBC, CMP, and magnesium prior to that appointment. HOME MEDICATIONS: To resume home medications. She did have Dilaudid prescription filled less than 24 hours before being readmitted. She is to take: 1. Tylenol 1000 mg every 4 hours p.r.n. pain. 2. Vitamin B12 injection 1 mL as directed. She does these at home. 3. Cymbalta 60 mg oral daily. 4. Dilaudid 6 mg every 6 hours p.r.n. pain. 5. Imipramine 200 mg at bedtime. 6. Levaquin 500 mg oral to finish the dose she has at home. 7. Magnesium chloride magnesium delay 192 oral 3 times daily. 8. Melatonin 3 mg at bedtime. 9. Nystatin 1 dose topical twice daily p.r.n. 10.Zyprexa 5 mg oral every 12 hours. 11.Zofran ODT 4 mg every 4 hours p.r.n. nausea. 12.Flintstones multivitamin chewable 1 daily. 13.Imitrex 50 mg oral between units of blood product p.r.n. migraine headache. 14.Hydroxyzine 25 to 50 mg oral every 4 hours. 15.Tizanidine 4 mg oral twice daily p.r.n. muscle spasms. DIET: Regular diet as tolerated. Drink 8 to 10 glasses of water a day. ACTIVITY: No lifting greater than 10 pounds for 6 weeks. Other activity: Walk at least 6 times daily inside your home. Driving after discharge. Do not drive while on narcotic pain medication. Shower/bathing: May shower. DISCHARGE INSTRUCTIONS: Notify provider if any fever, increased pain, nausea, or vomiting. Keep site clean and dry. Change dressing on open incision twice a day. Use incentive spirometer 10 times every hour while awake. Follow up with Alverto Meraz MD, crop farm workers. Appointment will be made by hospital staff prior to discharge.
--- NOTE | 2019-08-18 11:58 | OR ---
DATE OF PROCEDURE: 08/05/2019 SURGEON: Shamar Reno MD PREOPERATIVE DIAGNOSIS: Intraabdominal abscess. POSTOPERATIVE DIAGNOSES: 1. Separate intraabdominal and pelvic retroperitoneal abscesses. 2. Focal necrosis of abdominal wall. OPERATIVE PROCEDURES: Exploratory laparotomy with: 1. Drainage of subfascial intraabdominal abscess (69308). 2. Drainage of separate retroperitoneal pelvic abscess (27459). 3. Debridement of abdominal wall (68176). ANESTHESIA: General. CAREER SERVICES REPRESENTATIVE: Aline Landeros PA-C. INDICATIONS FOR PROCEDURE: The patient was admitted with increasing abdominal pain. Initially, we opened up her skin and subcutaneous tissue and debrided that somewhat. She continues to have significant discomfort, and a CT scan was obtained, which showed an abscess underneath the fascia, i.e. an intraabdominal abscess. There is also what appeared an area of abscess collection within the pelvis. The plan is to proceed with exploratory laparotomy and drainage of the abscesses as indicated. Potential risks including bleeding, infection, injury to the underlying viscera were all reviewed, and the patient wishes to proceed. DETAILS OF PROCEDURE: The patient was taken to the operating room, and after general endotracheal anesthesia was induced, the previous operative dressing was removed and the abdomen prepped and draped. Law catheter was placed. The previously closed fascia was then opened. The patient was noted to have some necrosis of the skin, subcutaneous tissue, and muscle and fascia layers. Some of this area was initially debrided. Following this, the peritoneal cavity was entered. Underneath the fascia, there was a well-defined area of purulence. Cultures of this were obtained, and this area was evacuated. Further dissection down toward the pelvis showed a separate collection. This is more or less between the urinary bladder and the pubic bone, i.e. was a retroperitoneal pelvic abscess that was separate from the intraabdominal abscess. This had to do with a significant amount of dissection required during one of the previous operations in the area of the urinary bladder. The bladder was peeled away from the attachments to the abdominal wall on the bladder apex and then pulled back down, opening up the retropubic space, where the abscess was then drained, and cultures of this were obtained. At this point, no further problems were noted. There was a thick layer of scar formation over the underlying viscera, so this did not in fact appear to be a significant danger of injury or fistula formation. The area was irrigated with meropenem and Zyvox containing saline solution until all areas were clear. Two Dann-Sadler drains were then placed through stab wounds in the left abdomen, one taken into the pelvic area, one into and across the area of lower abdominal incision. The midline fascia was then approximated with #2 Vicryl stitch, skin and subcutaneous tissue were packed open with iodoform gauze. The patient received bilateral transversus abdominis plane blocks with ultrasound guidance, and the patient was taken to the recovery room in satisfactory condition. Physician family practice physician assistant, Aline Landeros, played an essential role in assisting in this case, helping to position the patient, retract structures as needed, as well as suturing and cutting sutures when indicated. Her presence improved patient safety and decreased the operative time. Shamar Reno MD /[id number]
--- NOTE | 2019-08-19 19:25 | OR ---
DATE OF PROCEDURE: 08/03/2019 SURGEON: Shamar Reno MD PREOPERATIVE DIAGNOSIS: Painful abdominal incision. POSTOPERATIVE DIAGNOSIS: Painful abdominal incision with: 1. Focal necrosis of skin and subcutaneous tissue and muscular fascia. 2. Focal fascial dehiscence. PROCEDURE PERFORMED: Exploration of abdominal wound with: 1. Debridement of skin and subcutaneous tissue and muscular fascia (98823). 2. Closure of focal fascial dehiscence (68741). ANESTHESIA: General. INDICATION FOR PROCEDURE: The patient was re-admitted with quite a bit of pain in her midline incision. Our plan is to proceed with exploration of that incision, most likely reopening it given the likelihood of some underlying contaminated stroma formation. It does not appear to be overtly infected. The patient had a normal white count, no significant cellulitis around it, and relatively minimal drainage. Potential risks of the procedure including further bleeding and infection were reviewed, and the patient wishes to proceed. DETAILS OF PROCEDURE: The patient was taken to the operating room and after general endotracheal anesthesia was induced, the abdomen was prepped and draped. The christiano of the previous incision were then taken down, and the subcutaneous tissue stitches were divided. The patient had some other contamination, but again, no obvious infection in the wound. The area of skin, subcutaneous tissue, and muscle fascia that was necrotic was then debrided using electrocautery. On the inferior aspect of the incision, the patient was noted to have a focal fascial dehiscence with significant separation of the fascia at that level. This was closed with a series of interrupted #1 Vicryl stitches. At this point, the wound was then packed open with iodoform gauze and a dressing applied. Bilateral transversus abdominis plane blocks were placed with ultrasound guidance, and the patient taken to the recovery room in satisfactory condition. Shamar Reno MD /[id number]
== END 2019-08-14 11:30 | disposition home or self-care (01) | DRG 857 ==
LOC: EEVIPCON 11:19 → JP.MS 11:19
PROVIDERS: ADMIT Surgery; ATTEND Surgery
PROC: 30233N1 Transfusion of Nonautologous Red Blood Cells into Peripheral Vein, Percutaneous Approach (ICD-10-PCS; 2019-08-03)
PROC: 0JB80ZZ Excision of Abdomen Subcutaneous Tissue and Fascia, Open Approach (ICD-10-PCS; 2019-08-03)
PROC: 0WQF0ZZ Repair Abdominal Wall, Open Approach (ICD-10-PCS; 2019-08-03)
PROC: 0W9G0ZZ Drainage of Peritoneal Cavity, Open Approach (ICD-10-PCS; 2019-08-05)
PROC: 0W9H0ZZ Drainage of Retroperitoneum, Open Approach (ICD-10-PCS; 2019-08-05)
PROC: 0DB68ZX Excision of Stomach, Via Natural or Artificial Opening Endoscopic, Diagnostic (ICD-10-PCS; principal; 2019-08-07)
DX: T81.43XA Infection following a procedure, organ and space surgical site, initial encounter (principal); K76.6 Portal hypertension; D58.9 Hereditary hemolytic anemia, unspecified; D61.818 Other pancytopenia; I96 Gangrene, not elsewhere classified; D64.9 Anemia, unspecified; K29.70 Gastritis, unspecified, without bleeding; E83.42 Hypomagnesemia; R16.1 Splenomegaly, not elsewhere classified; F41.9 Anxiety disorder, unspecified; E53.8 Deficiency of other specified B group vitamins; N18.3 Chronic kidney disease, stage 3 (moderate); L76.82 Other postprocedural complications of skin and subcutaneous tissue; B95.8 Unspecified staphylococcus as the cause of diseases classified elsewhere; Z88.8 Allergy status to other drugs, medicaments and biological substances; Z79.899 Other long term (current) drug therapy
CPT/HCPCS: 36415; 36430; 74176; 80053; 81001; 82248; 82525; 82607; 82728; 82746; 83010; 83070; 83550; 83615; 83735; 83880; 84100; 85018; 85025; 85027; 85045; 86850; 86870; 86880; 86900; 86901; 86902; 86920; 86922; 86970; 87070; 87075; 87077; 87081; 87186; 87205; 87493; 88304; 94762; A9270-GY; C1751; C9113; J0171; J0330; J1100; J1170; J1450; J1642; J1940; J1956; J2020; J2185; J2250; J2405; J2704; J2710; J2795; J3010; J3410; J3475; J3490; J7030; J7050; J7120; J7121; P9016; Q9967

== ENCOUNTER 2019-08-31 16:17 | Inpatient (IN) | payer MEDICARE, OTHER ==
--- NOTE | 2019-08-31 17:23 | EDM.PDOC ---
ED HPI GENERAL MEDICAL PROBLEM - General Chief Complaint: Abdominal Pain Stated Complaint: ABD PAIN, WEAK, UNSTABLE Time Seen by Provider: 08/31/19 16:19 Source of Information: Reports: Patient History Limitations: Reports: No Limitations - History of Present Illness INITIAL COMMENTS - FREE TEXT/NARRATIVE: Aline presents today with complaints of feeling weak, like her legs are shaky with nausea at times. She reports abdominal pain that radiates to her rectum for the past two weeks. She currently has an open wound of the lower abdomen that she does wet to dry dressings on. She states her ostomy stool has been more liquid. She denies fever, chills, nausea, vomiting, or other concerns. Discussion with her finds Aline has been drinking more grape soda pop lately along with water. She has not really been eating too much. abdomen Pain Score (Numeric/FACES): 8 - Related Data Allergies Allergy/AdvReac Type Severity Reaction Status Date / Time lorazepam AdvReac Intermediate Confusion Verified 08/02/19 12:32 Home Meds: Home Meds Acetaminophen [Acetaminophen Extra Strength] 1,000 mg PO Q4HR PRN 06/17/19 [ History] Cyanocobalamin (Vitamin B-12) [Cyanocobalamin Injection] 1 ml IM ASDIRECTED 12/28 [History] DULoxetine [Cymbalta] 60 mg PO DAILY 06/17/19 [History] Imipramine HCl 200 mg PO BEDTIME 06/17/19 [History] Magnesium Chloride [Mag Delay] 192 mg PO TID 06/17/19 [History] Melatonin 3 mg PO BEDTIME 06/17/19 [History] Nystatin [Nystatin Oint] 1 dose TOP BID PRN 06/17/19 [History] OLANZapine [ZyPREXA] 5 mg PO Q12HR PRN 06/17/19 [History] Ondansetron [Zofran ODT] 4 mg PO Q4HR PRN 06/17/19 [History] Pedi Multivit No.25/Folic Acid [Flintstones Multivit Chew Tab] 1 tab PO DAILY [History] SUMAtriptan [Imitrex] 50 mg PO BTNUNITS PRN 06/17/19 [History] tiZANidine [Zanaflex] 4 mg PO BID PRN 06/17/19 [History] HYDROmorphone [Dilaudid] 6 mg PO Q6H PRN #50 tablet 07/29/19 [Rx] Levofloxacin [Levaquin] 500 mg PO DAILY #4 tablet 07/29/19 [Rx] hydrOXYzine HCL [hydrOXYzine] 25 - 50 mg PO Q4H PRN #50 tablet 07/29/19 [Rx] Metoprolol Tartrate 25 mg PO DAILY 08/31/19 [History] amLODIPine [Norvasc] 5 mg PO DAILY 08/31/19 [History] calcitrioL [Calcitriol] 0.25 mg PO DAILY 08/31/19 [History] Past Medical History HEENT History: Reports: Impaired Vision Cardiovascular History: Reports: None Gastrointestinal History: Reports: Bowel Obstruction, Other (See Below) Other Gastrointestinal History: hernia, multiple bowel surgerys Genitourinary History: Reports: None [employer] History: Reports: Neurological History: Reports: Migraines Psychiatric History: Reports: Anxiety Insulin Pump Model and Shoulder Puncher: no Hematologic History: Reports: B12 Deficiency - Infectious Disease History Infectious Disease History: Reports: Chicken Pox, Mononucleosis - Past Surgical History Head Surgeries/Procedures: Reports: None HEENT Surgical History: Reports: Adenoidectomy, Tonsillectomy Cardiovascular Surgical History: Reports: Cardiac Ablation GI Surgical History: Reports: Appendectomy, Colonoscopy, EGD, Other (See Below) Other GI Surgeries/Procedures: hernia, has ileostomy Female Surgical History: Reports: Hysterectomy Neurological Surgical History: Reports: None Dermatological Surgical History: Reports: None Social & Family History - Family History Family Medical History: Noncontributory - Tobacco Use Smoking Status *Q: Never Smoker - Caffeine Use Caffeine Use: Reports: Soda - Recreational Drug Use Recreational Drug Use: No ED ROS GENERAL - Review of Systems Review Of Systems: See Below Constitutional: Reports: Weakness, Decreased Appetite HEENT: Reports: No Symptoms Respiratory: Reports: No Symptoms Cardiovascular: Reports: No Symptoms Endocrine: Reports: No Symptoms GI/Abdominal: Reports: Abdominal Pain, Nausea, Other (Open abdominal wound, she also reports more liquid stool to ostomy) : Reports: Pain (pain to low pelvis) Musculoskeletal: Reports: No Symptoms Skin: Reports: Wound, Other (chronic open wound to abdomen, smaller closed woundwith scab to abdomen. ) Neurological: Reports: No Symptoms Psychiatric: Reports: No Symptoms Hematologic/Lymphatic: Reports: No Symptoms Immunologic: Reports: No Symptoms ED EXAM, GI/ABD - Physical Exam Exam: See Below Exam Limited By: No Limitations General Appearance: Alert, WD/WN, No Apparent Distress Eyes: Bilateral: Normal Appearance (PERRL) Ears: Normal External Exam, Normal Canal, Hearing Grossly Normal, Normal TMs Throat/Mouth: Normal Inspection, Normal Lips, Normal Gums, Normal Oropharynx, Normal Voice, No Airway Compromise Head: Atraumatic, Normocephalic Neck: Normal Inspection, Supple, Non-Tender, Full Range of Motion. No: Lymphadenopathy (R), Lymphadenopathy (L) Respiratory/Chest: No Respiratory Distress, Lungs Clear, Normal Breath Sounds, No Accessory Muscle Use, Chest Non-Tender. No: Crackles, Rales, Rhonchi, Wheezing Cardiovascular: Normal Peripheral Pulses, Regular Rate, Rhythm, No Edema, No Gallop, No Murmur, No Rub GI/Abdominal Exam: Normal Bowel Sounds, Soft, Tender. No: Guarding, Rigid, Rebound Back Exam: Normal Inspection, Full Range of Motion. No: CVA Tenderness (R), CVA Tenderness (L) Extremities: Normal Inspection, Normal Range of Motion, Non-Tender, No Pedal Edema, Normal Capillary Refill Neurological: Alert, Oriented, Normal Cognition Psychiatric: Normal Affect, Normal Mood Skin Exam: Warm, Dry, No Rash, Other (large open wound with scant drainage to lower abdomen, packed with wet gauze. 3.5cm eschar noted to closed wound to LLQ ) Lymphatic: No Adenopathy Course - Vital Signs Last Recorded V/S: Last Vital Signs Temp 36.7 C 08/31/19 20:43 Pulse 116 H 08/31/19 20:43 Resp 20 08/31/19 20:43 BP 97/67 08/31/19 20:43 Pulse Ox 98 08/31/19 20:43 - Orders/Labs/Meds Orders: Active Orders 24 hr Category Date Time Status CULTURE STOOL + SHIGATOX [RM] Stat Lab 08/31/19 18:41 Received Sodium Chloride 0.9% [Normal Saline] 250 ml Med 08/31/19 17:30 Active IV ASDIRECTED Sodium Chloride 0.9% [Saline Flush] Med 08/31/19 17:24 Active 10 ml FLUSH ASDIRECTED PRN Saline Lock Insert [OM.PC] Routine Oth 08/31/19 17:24 Ordered Medication Orders Sodium Chloride (Normal Saline) 250 mls @ 250 mls/hr IV ASDIRECTED CASSIE Last Admin: 08/31/19 17:43 Dose: 250 mls/hr Sodium Chloride (Saline Flush) 10 ml FLUSH ASDIRECTED PRN PRN Reason: Keep Vein Open Last Admin: 08/31/19 17:43 Dose: 10 ml Labs: Laboratory Tests 08/31/19 08/31/19 08/31/19 Range/Units 17:35 17:35 18:22 WBC 8.5 (4.5-11.0) K/uL RBC 4.16 (3.30-5.50) M/uL Hgb 10.7 L (12.0-15.0) g/dL Hct 34.2 L (36.0-48.0) % MCV 82 (80-98) fL MCH 26 L (27-31) pg MCHC 31 L (32-36) % Plt Count 209 (150-400) K/uL Neut % (Auto) 76 H (36-66) % Lymph % (Auto) 15 L (24-44) % [place] % (Auto) 8 H (2-6) % Eos % (Auto) 0 L (2-4) % Baso % (Auto) 0 (0-1) % Sodium 125 L (140-148) mmol/L Potassium 4.2 (3.6-5.2) mmol/L Chloride 90 L (100-108) mmol/L Carbon Dioxide 26 (21-32) mmol/L Anion Gap 13.2 (5.0-14.0) mmol/L BUN 40 H (7-18) mg/dL Creatinine 3.9 H* D (0.6-1.0) mg/dL Est Cr Clr Drug Dosing 15.10 mL/min Estimated GFR (MDRD) 12 L (>60) Glucose 128 H (74-106) mg/dL Lactic Acid (0.4-2.0) mmol/L Calcium 9.5 (8.5-10.1) mg/dL Magnesium 1.3 L (1.8-2.4) mg/dL C-Reactive Protein 2.83 H (0.0-0.3) mg/dL Procalcitonin ng/mL Urine Color (YELLOW) Urine Appearance (CLEAR) Urine pH (5.0-8.0) Ur Specific [place] (1.008-1.030) Urine Protein (NEGATIVE) mg/dL Urine Glucose (UA) (NEGATIVE) mg/dL Urine Ketones (NEGATIVE) mg/dL Urine Occult Blood (NEGATIVE) Urine Nitrite (NEGATIVE) Urine Bilirubin (NEGATIVE) Urine Urobilinogen (0.2-1.0) EU/dL Ur Leukocyte Esterase (NEGATIVE) Urine RBC (0-5) Urine WBC (0-5) Ur Epithelial Cells Amorphous Sediment Urine Bacteria Urine Mucus 08/31/19 08/31/19 08/31/19 Range/Units 18:23 18:27 18:41 WBC (4.5-11.0) K/uL RBC (3.30-5.50) M/uL Hgb (12.0-15.0) g/dL Hct (36.0-48.0) % MCV (80-98) fL MCH (27-31) pg MCHC (32-36) % Plt Count (150-400) K/uL Neut % (Auto) (36-66) % Lymph % (Auto) (24-44) % [place] % (Auto) (2-6) % Eos % (Auto) (2-4) % Baso % (Auto) (0-1) % Sodium (140-148) mmol/L Potassium (3.6-5.2) mmol/L Chloride (100-108) mmol/L Carbon Dioxide (21-32) mmol/L Anion Gap (5.0-14.0) mmol/L BUN (7-18) mg/dL Creatinine (0.6-1.0) mg/dL Est Cr Clr Drug Dosing mL/min Estimated GFR (MDRD) (>60) Glucose (74-106) mg/dL Lactic Acid 3.1 H (0.4-2.0) mmol/L Calcium (8.5-10.1) mg/dL Magnesium (1.8-2.4) mg/dL C-Reactive Protein (0.0-0.3) mg/dL Procalcitonin 1.03 ng/mL Urine Color Yellow (YELLOW) Urine Appearance Cloudy A (CLEAR) Urine pH 5.0 (5.0-8.0) Ur Specific [place] >= 1.030 (1.008-1.030) Urine Protein 100 H (NEGATIVE) mg/dL Urine Glucose (UA) Negative (NEGATIVE) mg/dL Urine Ketones Negative (NEGATIVE) mg/dL Urine Occult Blood Trace-intact H (NEGATIVE) Urine Nitrite Negative (NEGATIVE) Urine Bilirubin Moderate H (NEGATIVE) Urine Urobilinogen 0.2 (0.2-1.0) EU/dL Ur Leukocyte Esterase Small H (NEGATIVE) Urine RBC 0-5 (0-5) Urine WBC 10-20 H (0-5) Ur Epithelial Cells Moderate Amorphous Sediment Many Urine Bacteria Many Urine Mucus Few Patient lab work reviewed, Dr. eRno notified, he advises to admit patient for hydration through hospitalist. Dr. Pedersen notified, additional lab work initiated, CT abdomen/pelvis ordered. Meds: Medications Generic Name Dose Route Start Last Admin Trade Name Freq PRN Reason Stop Dose Admin Sodium Chloride 250 mls @ 250 mls/hr 08/31/19 17:30 08/31/19 17:43 Normal Saline IV 250 mls/hr ASDIRECTED CASSIE Administration Sodium Chloride 10 ml 08/31/19 17:24 08/31/19 17:43 Saline Flush FLUSH 10 ml ASDIRECTED PRN Administration Keep Vein Open Discontinued Medications Generic Name Dose Route Start Last Admin Trade Name Freq PRN Reason Stop Dose Admin Hydromorphone HCl 0.5 mg 08/31/19 19:03 08/31/19 19:16 Dilaudid IVPUSH 08/31/19 19:04 0.5 mg ONETIME ONE Administration Ondansetron HCl 4 mg 08/31/19 17:43 08/31/19 17:57 Zofran IVPUSH 08/31/19 17:44 4 mg ONETIME ONE Administration - Re-Assessments/Exams Free Text/Narrative Re-Assessment/Exam: 08/31/19 17:43 Patient request something for nausea and pain. She will be given zofran 4mg IV. Vital signs stable. Lab work pending. 08/31/19 19:33 Dr. Pedersen updated with patient labs, he will be in to admit patient. Departure - Departure Time of Disposition: 20:30 Disposition: Admitted As Inpatient 65 Condition: Fair Clinical Impression: BEN (acute kidney injury), Dehydration, Nausea - Discharge Information *PRESCRIPTION DRUG MONITORING PROGRAM REVIEWED*: Yes *COPY OF PRESCRIPTION DRUG MONITORING REPORT IN PATIENT MYLA: No Sepsis Event Note - Evaluation Sepsis Screening Result: No Definite Risk - Focused Exam Vital Signs: Vital Signs Temp Pulse Resp BP Pulse Ox 08/31/19 19:15 107 H 18 109/73 96 08/31/19 16:54 36.1 C 114 H 20 110/73 97 08/31/19 16:45 36.1 C 114 H 20 110/73 97 Date Exam was Performed: 08/31/19 Time Exam was Performed: 20:51 - My Orders Last 24 Hours: My Active Orders 08/31/19 17:24 Sodium Chloride 0.9% [Saline Flush] 10 ml FLUSH ASDIRECTED PRN Saline Lock Insert [OM.PC] Routine 08/31/19 17:30 Sodium Chloride 0.9% [Normal Saline] 250 ml IV ASDIRECTED 08/31/19 18:41 CULTURE STOOL + SHIGATOX [RM] Stat - Assessment/Plan Last 24 Hours: My Active Orders 08/31/19 17:24 Sodium Chloride 0.9% [Saline Flush] 10 ml FLUSH ASDIRECTED PRN Saline Lock Insert [OM.PC] Routine 08/31/19 17:30 Sodium Chloride 0.9% [Normal Saline] 250 ml IV ASDIRECTED 08/31/19 18:41 CULTURE STOOL + SHIGATOX [RM] Stat Assessment:: BEN, dehydration, nausea Patient admitted per Dr. Pedersen.
[2019-08-31] MEDS ORDERED: Sodium Chloride 0.9% 10 ML Syringe FLUSH PRN (17:24)
[2019-08-31] MEDS ORDERED: Sodium Chloride 0.9% 250 ML IV SCH (17:30)
[2019-08-31] MEDS ORDERED: Ondansetron 4 MG/2 ML SDV IVPUSH ONE (17:43)
[2019-08-31] MEDS ORDERED: HYDROmorphone 0.5 MG/0.5 ML Syringe IVPUSH ONE (19:03)
--- NOTE | 2019-08-31 19:33 | CRLCT ---
INDICATION: Abdominal pain TECHNIQUE: CT Abdomen and pelvis without i.v. contrast. Coronal and sagittal reformats were obtained. COMPARISON: 08/03/2019 FINDINGS: Lower chest: Unremarkable. Liver: Unremarkable. Spleen: Moderate splenomegaly is present, measuring 16.5 cm without change. Pancreas: Unremarkable. Gallbladder: Unremarkable. Kidney: The patient is status post left nephrectomy. The right kidney is unremarkable on noncontrast imaging. Adrenal: Unremarkable. 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 On image 108, there is a posterior fluid collection measuring 1.9 cm with marginal surgical clip seen. This is presumably a residual rectal stump. The appendix is normal in appearance and size. Vascular: Unremarkable. Lymph: Unremarkable. Peritoneum: The anterior peritoneal fluid collection seen on prior examination has resolved. No pneumoperitoneum is seen. No significant ascites is noted. Pelvis: Unremarkable. Soft tissue: Dehiscence of the midline abdominal incision is present, likely due to healing by secondary intention. Bone: Unremarkable for age. IMPRESSION: 1. Moderate splenomegaly is present, measuring 16.5 cm without change. Dictated by Pancho Redman MD @ 08/31/2019 7:31:55 PM Please note that all CT scans at this facility use dose modulation, iterative reconstruction, and/or weight-based dosing when appropriate to reduce radiation dose to as low as reasonably achievable. Dictated by: Pancho Redman MD @ 08/31/2019 19:32:00 (Electronically Signed)
--- NOTE | 2019-08-31 20:28 | PCM.HP.2 ---
H&P History of Present Illness - General Date of Service: 08/31/19 Admit Problem/Dx: Admission Diagnosis/Problem Admission Diagnosis/Problem Acute kidney injury Source of Information: Patient, Provider History Limitations: Reports: No Limitations - History of Present Illness Initial Comments - Free Text/Narative: CC: I get so dizzy, I know there is something wrong HPI: Aline presents to the emergency room with several days of progressive nausea. She has had one episode of vomiting. Symptoms have progressed to the point that she is had a significant decrease in her intake which was marginal at best to start. She complains of mild generalized abdominal pain with the most impressive pain in the lower abdomen. This is a crampy pain that comes and goes. She has been taking some abat-wpk-yolzbwp pain medications without much relief. She has not had any noted fevers or chills. Her appetite has been decreased but this is been the norm for the past several weeks. Ostomy output is normal in quantity but slightly more loose than usual. She has been having some difficulty with passing urine and is able to pass only small quantities of urine at a time. She does not report any dysuria or urgency. She feels weak. She gets dizzy when she stands up and tries to walk around. Dizziness is better when she is laying down. Work-up in the emergency room revealed significant acute kidney injury with a creatinine of 3.9. Magnesium is low. White blood cell count is normal. Urine moderately suggestive of infection. Lactic acid is mildly elevated. Patient will be admitted for management of acute kidney injury likely secondary to severe dehydration as well as electrolyte replacement and symptom management. - Related Data Allergies/Adverse Reactions: Allergies Allergy/AdvReac Type Severity Reaction Status Date / Time lorazepam AdvReac Intermediate Confusion Verified 08/02/19 12:32 Home Medications: Home Meds Acetaminophen [Acetaminophen Extra Strength] 1,000 mg PO Q4HR PRN 06/17/19 [ History] Cyanocobalamin (Vitamin B-12) [Cyanocobalamin Injection] 1 ml IM ASDIRECTED 12/28 [History] DULoxetine [Cymbalta] 60 mg PO DAILY 06/17/19 [History] Imipramine HCl 200 mg PO BEDTIME 06/17/19 [History] Magnesium Chloride [Mag Delay] 192 mg PO TID 06/17/19 [History] Melatonin 3 mg PO BEDTIME 06/17/19 [History] Nystatin [Nystatin Oint] 1 dose TOP BID PRN 06/17/19 [History] OLANZapine [ZyPREXA] 5 mg PO Q12HR PRN 06/17/19 [History] Ondansetron [Zofran ODT] 4 mg PO Q4HR PRN 06/17/19 [History] Pedi Multivit No.25/Folic Acid [Flintstones Multivit Chew Tab] 1 tab PO DAILY [History] SUMAtriptan [Imitrex] 50 mg PO BTNUNITS PRN 06/17/19 [History] tiZANidine [Zanaflex] 4 mg PO BID PRN 06/17/19 [History] HYDROmorphone [Dilaudid] 6 mg PO Q6H PRN #50 tablet 07/29/19 [Rx] Levofloxacin [Levaquin] 500 mg PO DAILY #4 tablet 07/29/19 [Rx] hydrOXYzine HCL [hydrOXYzine] 25 - 50 mg PO Q4H PRN #50 tablet 07/29/19 [Rx] Metoprolol Tartrate 25 mg PO DAILY 08/31/19 [History] amLODIPine [Norvasc] 5 mg PO DAILY 08/31/19 [History] calcitrioL [Calcitriol] 0.25 mg PO DAILY 08/31/19 [History] Past Medical History HEENT History: Reports: Impaired Vision Cardiovascular History: Reports: None Gastrointestinal History: Reports: Bowel Obstruction, Other (See Below) Other Gastrointestinal History: hernia, multiple bowel surgerys Genitourinary History: Reports: None 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: Neurological History: Reports: Migraines Psychiatric History: Reports: Anxiety Insulin Pump Model and [id number] Armor Crewman: no Hematologic History: Reports: B12 Deficiency - Infectious Disease History Infectious Disease History: Reports: Chicken Pox, Mononucleosis - Past Surgical History Head Surgeries/Procedures: Reports: None HEENT Surgical History: Reports: Adenoidectomy, Tonsillectomy Cardiovascular Surgical History: Reports: Cardiac Ablation GI Surgical History: Reports: Appendectomy, Colonoscopy, EGD, Other (See Below) Other GI Surgeries/Procedures: hernia, has ileostomy Female Surgical History: Reports: Hysterectomy Neurological Surgical History: Reports: None Dermatological Surgical History: Reports: None Social & Family History - Family History Family Medical History: Noncontributory - Tobacco Use Smoking Status *Q: Never Smoker - Caffeine Use Caffeine Use: Reports: Soda - Recreational Drug Use Recreational Drug Use: No H&P Review of Systems - Review of Systems: Review Of Systems: See Below Free Text/Narrative: A complete 12 point review of systems was obtained. Pertinent positives and negatives are noted in the history of present illness. All other systems were reviewed and were negative except as noted. Exam - Exam Exam: See Below - Vital Signs Vital Signs: Last Vital Signs Temp 36.1 C 08/31/19 16:54 Pulse 114 H 08/31/19 16:54 Resp 20 08/31/19 16:54 BP 110/73 08/31/19 16:54 Pulse Ox 97 08/31/19 16:54 Weight: 73.936 kg - Exam Quality Assessment: No: Supplemental Oxygen General: Alert, Oriented, Cooperative, Mild Distress HEENT: Conjunctiva Clear. No: Mucosa Moist & [place] (dry), Scleral Icterus Neck: Supple, Trachea Midline. No: Lymphadenopathy Lungs: Clear to Auscultation, Normal Respiratory Effort Cardiovascular: Regular Rhythm, Tachycardia. No: Systolic Murmur GI/Abdominal Exam: Normal Bowel Sounds, Soft, No Distention, Tender, Other ( ostomy right upper abdomen ) Extremities: No Pedal Edema. No: Increased Warmth Peripheral Pulses: 1+: Dorsalis Pedis (L), Dorsalis Pedis (R) Skin: Warm, Dry, Incision (midline abdominal incision healing by secondary intention with no erythema or drainage) Neuro Extensive - Mental Status: Alert, Oriented x3, Nl Response to Commands Neuro Extensive - Motor, Sensory, Reflexes: No: Dysarthria, Abnormal Motor, Tremor Psychiatric: Alert, Normal Affect - Patient Data Lab Results Last 24 hrs: Laboratory Results - last 24 hr 08/31/19 08/31/19 08/31/19 Range/Units 17:35 17:35 18:22 WBC 8.5 (4.5-11.0) K/uL RBC 4.16 (3.30-5.50) M/uL Hgb 10.7 L (12.0-15.0) g/dL Hct 34.2 L (36.0-48.0) % MCV 82 (80-98) fL MCH 26 L (27-31) pg MCHC 31 L (32-36) % Plt Count 209 (150-400) K/uL Neut % (Auto) 76 H (36-66) % Lymph % (Auto) 15 L (24-44) % [place] % (Auto) 8 H (2-6) % Eos % (Auto) 0 L (2-4) % Baso % (Auto) 0 (0-1) % Sodium 125 L (140-148) mmol/L Potassium 4.2 (3.6-5.2) mmol/L Chloride 90 L (100-108) mmol/L Carbon Dioxide 26 (21-32) mmol/L Anion Gap 13.2 (5.0-14.0) mmol/L BUN 40 H (7-18) mg/dL Creatinine 3.9 H* D (0.6-1.0) mg/dL Est Cr Clr Drug Dosing 15.10 mL/min Estimated GFR (MDRD) 12 L (>60) Glucose 128 H (74-106) mg/dL Lactic Acid (0.4-2.0) mmol/L Calcium 9.5 (8.5-10.1) mg/dL Magnesium 1.3 L (1.8-2.4) mg/dL C-Reactive Protein 2.83 H (0.0-0.3) mg/dL Procalcitonin ng/mL Urine Color (YELLOW) Urine Appearance (CLEAR) Urine pH (5.0-8.0) Ur Specific [place] (1.008-1.030) Urine Protein (NEGATIVE) mg/dL Urine Glucose (UA) (NEGATIVE) mg/dL Urine Ketones (NEGATIVE) mg/dL Urine Occult Blood (NEGATIVE) Urine Nitrite (NEGATIVE) Urine Bilirubin (NEGATIVE) Urine Urobilinogen (0.2-1.0) EU/dL Ur Leukocyte Esterase (NEGATIVE) Urine RBC (0-5) Urine WBC (0-5) Ur Epithelial Cells Amorphous Sediment Urine Bacteria Urine Mucus 08/31/19 08/31/19 08/31/19 Range/Units 18:23 18:27 18:41 WBC (4.5-11.0) K/uL RBC (3.30-5.50) M/uL Hgb (12.0-15.0) g/dL Hct (36.0-48.0) % MCV (80-98) fL MCH (27-31) pg MCHC (32-36) % Plt Count (150-400) K/uL Neut % (Auto) (36-66) % Lymph % (Auto) (24-44) % [place] % (Auto) (2-6) % Eos % (Auto) (2-4) % Baso % (Auto) (0-1) % Sodium (140-148) mmol/L Potassium (3.6-5.2) mmol/L Chloride (100-108) mmol/L Carbon Dioxide (21-32) mmol/L Anion Gap (5.0-14.0) mmol/L BUN (7-18) mg/dL Creatinine (0.6-1.0) mg/dL Est Cr Clr Drug Dosing mL/min Estimated GFR (MDRD) (>60) Glucose (74-106) mg/dL Lactic Acid 3.1 H (0.4-2.0) mmol/L Calcium (8.5-10.1) mg/dL Magnesium (1.8-2.4) mg/dL C-Reactive Protein (0.0-0.3) mg/dL Procalcitonin 1.03 ng/mL Urine Color Yellow (YELLOW) Urine Appearance Cloudy A (CLEAR) Urine pH 5.0 (5.0-8.0) Ur Specific [place] >= 1.030 (1.008-1.030) Urine Protein 100 H (NEGATIVE) mg/dL Urine Glucose (UA) Negative (NEGATIVE) mg/dL Urine Ketones Negative (NEGATIVE) mg/dL Urine Occult Blood Trace-intact H (NEGATIVE) Urine Nitrite Negative (NEGATIVE) Urine Bilirubin Moderate H (NEGATIVE) Urine Urobilinogen 0.2 (0.2-1.0) EU/dL Ur Leukocyte Esterase Small H (NEGATIVE) Urine RBC 0-5 (0-5) Urine WBC 10-20 H (0-5) Ur Epithelial Cells Moderate Amorphous Sediment Many Urine Bacteria Many Urine Mucus Few Result Diagrams: 08/31/19 17:35 08/31/19 17:35 Eliud Results Last 24 hrs: Microbiology 08/31/19 18:41 Stool for WBCs - Final Stool / Feces NO WBC SEEN REFERENCE RANGE: NO WBC SEEN Imaging Impressions Last 24 hrs: CT abd/pelvis-images personally reviewed-s/p subtotal colectomy with right sided ostomy. Left kidney surgically absent. No hydronephrosis. No abscess or free air. No bowel distention. Sepsis Event Note - Evaluation Sepsis Screening Result: No Definite Risk - Focused Exam Vital Signs: Vital Signs Temp Pulse Resp BP Pulse Ox 08/31/19 16:54 36.1 C 114 H 20 110/73 97 08/31/19 16:45 36.1 C 114 H 20 110/73 97 Date Exam was Performed: 08/31/19 Time Exam was Performed: 20:32 *Q Meaningful Use (ADM) - VTE Risk Assess *Q Each Risk Factor Represents 1 Point: Age 41 - 59 years Total Score 1 Point Risk Factors: 1 Each Risk Factor Represents 2 Points: None Total Score 2 Point Risk Factors: 0 Each Risk Factor Represents 3 Points: None Total Score 3 Point Risk Factors: 0 Each Risk Factor Represents 5 Points: None Total Score 5 Point Risk Factors: 0 Venous Thromboembolism Risk Factor Score *Q: 1 - Problem List (1) Acute kidney injury SNOMED Code(s): 56366374, 26067872 ICD Code: N17.9 - ACUTE KIDNEY FAILURE, UNSPECIFIED Status: Acute Current Visit: Yes (2) Severe dehydration SNOMED Code(s): 131087525 ICD Code: E86.0 - DEHYDRATION Status: Acute Current Visit: Yes (3) Nausea SNOMED Code(s): 515634913 ICD Code: R11.0 - NAUSEA Status: Acute Current Visit: Yes (4) History of left nephrectomy SNOMED Code(s): 29525340151862 ICD Code: Z90.5 - ACQUIRED ABSENCE OF KIDNEY Status: Chronic Current Visit: No (5) Crohn's disease SNOMED Code(s): 75919261 ICD Code: K50.90 - CROHN'S DISEASE, UNSPECIFIED, WITHOUT COMPLICATIONS Status: Chronic Current Visit: No Qualifiers: Gastrointestinal tract location: unspecified location Digestive disease complication type: unspecified complication Qualified Code(s): K50.919 - Crohn 's disease, unspecified, with unspecified complications Problem List Initiated/Reviewed/Updated: Yes Orders Last 24hrs: Active Orders 24 hr Category Date Time Status Patient Status Manage Transfer [TRANSFER] Routine ADT 08/31/19 20:11 Ordered CULTURE STOOL + SHIGATOX [RM] Stat Lab 08/31/19 18:41 Received Sodium Chloride 0.9% [Normal Saline] 250 ml Med 08/31/19 17:30 Active IV ASDIRECTED Sodium Chloride 0.9% [Saline Flush] Med 08/31/19 17:24 Active 10 ml FLUSH ASDIRECTED PRN Saline Lock Insert [OM.PC] Routine Oth 08/31/19 17:24 Ordered Resuscitation Status Routine Resus Stat 08/31/19 20:15 Ordered Medication Orders Sodium Chloride (Normal Saline) 250 mls @ 250 mls/hr IV ASDIRECTED CASSIE Last Admin: 08/31/19 17:43 Dose: 250 mls/hr Sodium Chloride (Saline Flush) 10 ml FLUSH ASDIRECTED PRN PRN Reason: Keep Vein Open Last Admin: 08/31/19 17:43 Dose: 10 ml Assessment/Plan Comment:: ASSESSMENT AND PLAN - Acute kidney injury-secondary to severe dehydration. She has only her right kidney remaining. Lactic acid is elevated and I suspect is related to the dehydration rather than sepsis. Urine specific gravity is greater than 1.030. She has not been eating or drinking well secondary to nausea. No acute intra- abdominal pathology on the CT scan. -IV fluids overnight -Repeat labs in the morning -Symptomatic management of nausea with scopolamine patch Acute cystitis without hematuria, suspected-moderate suggestion of infection based on urinalysis. She is symptomatic so I will treat this while the culture is pending. 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 Incision is healing by secondary intention and appears to be doing well at this time. Ostomy output has been normal. Hypomagnesemia-chronic problem with her previous colectomy. -Supplement magnesium Maintenance issues - - DVT prophylaxis -SCDs - GI prophylaxis -PPI - Nutrition -regular diet - Law catheter -not indicated CODE STATUS -full code Admission justification -this patient will be admitted for inpatient services and is medically appropriate meeting medical necessity for inpatient admission as outlined in my documentation. I reasonably expect the patient will require inpatient services that span a period time over 2 midnights. I reasonably expect this patient to be discharged or transferred within 96 hours [facility]. Disposition -anticipate discharge home after the hospital stay Primary care physician -Dr. Lisa Pedersen M.D. - Mortality Measure Prognosis:: Good
[2019-08-31] MEDS ORDERED: Magnesium Hydroxide 400 MG/5 ML Susp 30 ML Cup PO PRN (21:03)
[2019-08-31] MEDS ORDERED: Albuterol 0.083% 2.5 MG/3 ML Neb Soln NEB PRN (21:03)
[2019-08-31] MEDS ORDERED: cefTRIAXone 1 GM in Sodium Chloride 0.9% 50 ML IV ONE (21:15)
[2019-08-31] MEDS: Sodium Chloride 0.9% 1,000 ML IV SCH (22:00)
[2019-08-31] MEDS: HYDROmorphone 1 MG/ML Syringe IVPUSH PRN (22:00)
[2019-08-31] MEDS: Melatonin 3 MG Tab PO SCH (22:08)
[2019-08-31] MEDS: Lactobacillus Rhamnosus GG (Probiotic) Cap PO SCH (22:08)
[2019-08-31] MEDS: HYDROmorphone 2 MG Tab PO PRN (22:08)
[2019-08-31] MEDS: Ondansetron 4 MG/2 ML SDV IV PRN (22:17)
[2019-08-31] MEDS: Scopolamine 1.5 MG Transdermal Patch TRDERM SCH (22:47)
[2019-08-31] MEDS: Magnesium Sulfate/Water 2 GM in Premix Bag 1 BAG IV SCH (22:48)
[2019-09-01] MEDS: HYDROmorphone 1 MG/ML Syringe IVPUSH PRN ×5 (01:40→22:04)
[2019-09-01] MEDS: Magnesium Sulfate/Water 2 GM in Premix Bag 1 BAG IV SCH ×4 (04:39→21:04)
[2019-09-01] MEDS: Sodium Chloride 0.9% 1,000 ML IV SCH ×2 (06:38→14:48)
[2019-09-01] MEDS: HYDROmorphone 2 MG Tab PO PRN ×3 (07:34→21:02)
[2019-09-01] MEDS: Pantoprazole 40 MG Tab.CR PO SCH (07:38)
[2019-09-01] MEDS: Lactobacillus Rhamnosus GG (Probiotic) Cap PO SCH ×2 (08:51→21:05)
[2019-09-01] MEDS: DULoxetine 30 MG Cap PO SCH (08:51)
[2019-09-01] MEDS: LORazepam 2 MG/ML SDV IVPUSH PRN ×2 (11:01→22:04)
[2019-09-01] MEDS: CALCITRIOL 0.25 MG PO SCH (11:02)
--- NOTE | 2019-09-01 11:09 | PCM.PN ---
- General Info Date of Service: 09/01/19 Subjective Update: No acute events overnight since admission. Abdominal pain persists and is not dramatically better. Still having some nausea but was able to eat better today. No fevers. Sodium is slightly better but creatinine level has risen from yesterday. She has not made any urine since she is been admitted to the hospital. Functional Status: Reports: Pain Controlled - Review of Systems General: Reports: Weakness Gastrointestinal: Reports: Abdominal Pain, Nausea - Patient Data Vitals - Most Recent: Last Vital Signs Temp 35.9 C L 09/01/19 08:19 Pulse 84 09/01/19 08:19 Resp 16 09/01/19 08:19 BP 103/49 L 09/01/19 08:19 Pulse Ox 93 L 09/01/19 08:19 Weight - Most Recent: 73.936 kg I&O - Last 24 Hours: Intake & Output 08/31/19 09/01/19 09/01/19 22:59 06:59 14:59 Intake Total 100 1406 350 Output Total 400 550 Balance 100 1006 -200 Lab Results Last 24 Hours: Laboratory Results - last 24 hr 08/31/19 08/31/19 08/31/19 Range/Units 17:35 17:35 18:22 WBC 8.5 (4.5-11.0) K/uL RBC 4.16 (3.30-5.50) M/uL Hgb 10.7 L (12.0-15.0) g/dL Hct 34.2 L (36.0-48.0) % MCV 82 (80-98) fL MCH 26 L (27-31) pg MCHC 31 L (32-36) % Plt Count 209 (150-400) K/uL Neut % (Auto) 76 H (36-66) % Lymph % (Auto) 15 L (24-44) % [place] % (Auto) 8 H (2-6) % Eos % (Auto) 0 L (2-4) % Baso % (Auto) 0 (0-1) % Sodium 125 L (140-148) mmol/L Potassium 4.2 (3.6-5.2) mmol/L Chloride 90 L (100-108) mmol/L Carbon Dioxide 26 (21-32) mmol/L Anion Gap 13.2 (5.0-14.0) mmol/L BUN 40 H (7-18) mg/dL Creatinine 3.9 H* D (0.6-1.0) mg/dL Est Cr Clr Drug Dosing 15.10 mL/min Estimated GFR (MDRD) 12 L (>60) Glucose 128 H (74-106) mg/dL Lactic Acid (0.4-2.0) mmol/L Calcium 9.5 (8.5-10.1) mg/dL Magnesium 1.3 L (1.8-2.4) mg/dL C-Reactive Protein 2.83 H (0.0-0.3) mg/dL Procalcitonin ng/mL Urine Color (YELLOW) Urine Appearance (CLEAR) Urine pH (5.0-8.0) Ur Specific [place] (1.008-1.030) Urine Protein (NEGATIVE) mg/dL Urine Glucose (UA) (NEGATIVE) mg/dL Urine Ketones (NEGATIVE) mg/dL Urine Occult Blood (NEGATIVE) Urine Nitrite (NEGATIVE) Urine Bilirubin (NEGATIVE) Urine Urobilinogen (0.2-1.0) EU/dL Ur Leukocyte Esterase (NEGATIVE) Urine RBC (0-5) Urine WBC (0-5) Ur Epithelial Cells Amorphous Sediment Urine Bacteria Urine Mucus 08/31/19 08/31/19 08/31/19 Range/Units 18:23 18:27 18:41 WBC (4.5-11.0) K/uL RBC (3.30-5.50) M/uL Hgb (12.0-15.0) g/dL Hct (36.0-48.0) % MCV (80-98) fL MCH (27-31) pg MCHC (32-36) % Plt Count (150-400) K/uL Neut % (Auto) (36-66) % Lymph % (Auto) (24-44) % [place] % (Auto) (2-6) % Eos % (Auto) (2-4) % Baso % (Auto) (0-1) % Sodium (140-148) mmol/L Potassium (3.6-5.2) mmol/L Chloride (100-108) mmol/L Carbon Dioxide (21-32) mmol/L Anion Gap (5.0-14.0) mmol/L BUN (7-18) mg/dL Creatinine (0.6-1.0) mg/dL Est Cr Clr Drug Dosing mL/min Estimated GFR (MDRD) (>60) Glucose (74-106) mg/dL Lactic Acid 3.1 H (0.4-2.0) mmol/L Calcium (8.5-10.1) mg/dL Magnesium (1.8-2.4) mg/dL C-Reactive Protein (0.0-0.3) mg/dL Procalcitonin 1.03 ng/mL Urine Color Yellow (YELLOW) Urine Appearance Cloudy A (CLEAR) Urine pH 5.0 (5.0-8.0) Ur Specific [place] >= 1.030 (1.008-1.030) Urine Protein 100 H (NEGATIVE) mg/dL Urine Glucose (UA) Negative (NEGATIVE) mg/dL Urine Ketones Negative (NEGATIVE) mg/dL Urine Occult Blood Trace-intact H (NEGATIVE) Urine Nitrite Negative (NEGATIVE) Urine Bilirubin Moderate H (NEGATIVE) Urine Urobilinogen 0.2 (0.2-1.0) EU/dL Ur Leukocyte Esterase Small H (NEGATIVE) Urine RBC 0-5 (0-5) Urine WBC 10-20 H (0-5) Ur Epithelial Cells Moderate Amorphous Sediment Many Urine Bacteria Many Urine Mucus Few 08/31/19 09/01/19 09/01/19 Range/Units 22:00 04:50 04:50 WBC 8.4 (4.5-11.0) K/uL RBC 3.56 (3.30-5.50) M/uL Hgb 9.1 L (12.0-15.0) g/dL Hct 29.8 L (36.0-48.0) % MCV 84 (80-98) fL MCH 26 L (27-31) pg MCHC 31 L (32-36) % Plt Count 161 (150-400) K/uL Neut % (Auto) (36-66) % Lymph % (Auto) (24-44) % [place] % (Auto) (2-6) % Eos % (Auto) (2-4) % Baso % (Auto) (0-1) % Sodium 128 L (140-148) mmol/L Potassium 4.4 (3.6-5.2) mmol/L Chloride 94 L (100-108) mmol/L Carbon Dioxide 26 (21-32) mmol/L Anion Gap 12.4 (5.0-14.0) mmol/L BUN 43 H (7-18) mg/dL Creatinine 4.3 H* (0.6-1.0) mg/dL Est Cr Clr Drug Dosing 13.70 mL/min Estimated GFR (MDRD) 11 L (>60) Glucose 117 H (74-106) mg/dL Lactic Acid 1.8 (0.4-2.0) mmol/L Calcium 8.7 (8.5-10.1) mg/dL Magnesium (1.8-2.4) mg/dL C-Reactive Protein (0.0-0.3) mg/dL Procalcitonin ng/mL Urine Color (YELLOW) Urine Appearance (CLEAR) Urine pH (5.0-8.0) Ur Specific [place] (1.008-1.030) Urine Protein (NEGATIVE) mg/dL Urine Glucose (UA) (NEGATIVE) mg/dL Urine Ketones (NEGATIVE) mg/dL Urine Occult Blood (NEGATIVE) Urine Nitrite (NEGATIVE) Urine Bilirubin (NEGATIVE) Urine Urobilinogen (0.2-1.0) EU/dL Ur Leukocyte Esterase (NEGATIVE) Urine RBC (0-5) Urine WBC (0-5) Ur Epithelial Cells Amorphous Sediment Urine Bacteria Urine Mucus 09/01/19 Range/Units 04:50 WBC (4.5-11.0) K/uL RBC (3.30-5.50) M/uL Hgb (12.0-15.0) g/dL Hct (36.0-48.0) % MCV (80-98) fL MCH (27-31) pg MCHC (32-36) % Plt Count (150-400) K/uL Neut % (Auto) (36-66) % Lymph % (Auto) (24-44) % [place] % (Auto) (2-6) % Eos % (Auto) (2-4) % Baso % (Auto) (0-1) % Sodium (140-148) mmol/L Potassium (3.6-5.2) mmol/L Chloride (100-108) mmol/L Carbon Dioxide (21-32) mmol/L Anion Gap (5.0-14.0) mmol/L BUN (7-18) mg/dL Creatinine (0.6-1.0) mg/dL Est Cr Clr Drug Dosing mL/min Estimated GFR (MDRD) (>60) Glucose (74-106) mg/dL Lactic Acid 1.8 (0.4-2.0) mmol/L Calcium (8.5-10.1) mg/dL Magnesium (1.8-2.4) mg/dL C-Reactive Protein (0.0-0.3) mg/dL Procalcitonin ng/mL Urine Color (YELLOW) Urine Appearance (CLEAR) Urine pH (5.0-8.0) Ur Specific [place] (1.008-1.030) Urine Protein (NEGATIVE) mg/dL Urine Glucose (UA) (NEGATIVE) mg/dL Urine Ketones (NEGATIVE) mg/dL Urine Occult Blood (NEGATIVE) Urine Nitrite (NEGATIVE) Urine Bilirubin (NEGATIVE) Urine Urobilinogen (0.2-1.0) EU/dL Ur Leukocyte Esterase (NEGATIVE) Urine RBC (0-5) Urine WBC (0-5) Ur Epithelial Cells Amorphous Sediment Urine Bacteria Urine Mucus Eliud Results Last 24 Hours: Microbiology 08/31/19 18:41 Stool for WBCs - Final Stool / Feces NO WBC SEEN REFERENCE RANGE: NO WBC SEEN Med Orders - Current: Current Medications Acetaminophen (Tylenol) 650 mg PO Q4H PRN PRN Reason: Pain (Mild 1-3)/fever Albuterol (Proventil Neb Soln) 2.5 mg NEB Q4H PRN PRN Reason: Shortness Of Breath/wheezing Duloxetine HCl (Cymbalta) 60 mg PO DAILY [facility] Last Admin: 09/01/19 08:51 Dose: 60 mg Heparin Sodium (Porcine) (Heparin Lock Flush 100 Units/Ml) 500 units FLUSH ASDIRECTED PRN PRN Reason: Keep Vein Open Hydromorphone HCl (Dilaudid) 6 mg PO Q6H PRN PRN Reason: Pain (moderate 4-6) Last Admin: 09/01/19 07:34 Dose: 6 mg Hydromorphone HCl (Dilaudid) 1 mg IVPUSH Q2H PRN PRN Reason: Pain (severe 7-10) Last Admin: 09/01/19 04:47 Dose: 1 mg Ceftriaxone Sodium 1 gm/ (Sodium Chloride) 50 mls @ 100 mls/hr IV Q24H [facility] Magnesium Sulfate 2 gm/ Premix 50 mls @ 12.5 mls/hr IV Q6H [facility] Stop: 09/02/19 19:29 Last Admin: 09/01/19 08:51 Dose: 12.5 mls/hr Sodium Chloride (Normal Saline) 1,000 mls @ 125 mls/hr IV ASDIRECTED [facility] Last Admin: 09/01/19 06:38 Dose: 125 mls/hr Lactobacillus Rhamnosus (Culturelle) 1 cap PO BID [facility] Last Admin: 09/01/19 08:51 Dose: 1 cap Lorazepam (Ativan) 0.5 mg IVPUSH Q4H PRN PRN Reason: Nausea/Vomiting Last Admin: 09/01/19 11:01 Dose: 0.5 mg Magnesium Hydroxide (Milk Of Magnesia) 30 ml PO Q12H PRN PRN Reason: Constipation Melatonin (Melatonin) 9 mg PO BEDTIME [facility] Last Admin: 08/31/19 22:08 Dose: 9 mg Calcitriol ( Calcitriol) 0.25 Mg* *Pom 0.25 mg PO DAILY [facility] Last Admin: 09/01/19 11:02 Dose: Not Given Ondansetron HCl (Zofran Odt) 4 mg PO Q6H PRN PRN Reason: Nausea able to take PO Ondansetron HCl (Zofran) 4 mg IV Q6H PRN PRN Reason: Nausea/Vomiting Last Admin: 08/31/19 22:17 Dose: 4 mg Pantoprazole Sodium (Protonix) 40 mg PO ACBREAKFAST [facility] Last Admin: 09/01/19 07:38 Dose: 40 mg Imipramine Hcl 100mg (CapPom) 0 each PO BEDTIME [facility] Scopolamine (Transderm-Scop) 1.5 mg TRDERM Q72H [facility] Last Admin: 08/31/19 22:47 Dose: 1.5 mg Senna/Docusate Sodium (Senna Plus) 1 tab PO BID PRN PRN Reason: Constipation Sodium Chloride (Saline Flush) 10 ml FLUSH ASDIRECTED PRN PRN Reason: Keep Vein Open Last Admin: 08/31/19 17:43 Dose: 10 ml Discontinued Medications Hydromorphone HCl (Dilaudid) 0.5 mg IVPUSH ONETIME ONE Stop: 08/31/19 19:04 Last Admin: 08/31/19 19:16 Dose: 0.5 mg Sodium Chloride (Normal Saline) 250 mls @ 250 mls/hr IV ASDIRECTED [facility] Last Admin: 08/31/19 17:43 Dose: 250 mls/hr Ceftriaxone Sodium 1 gm/ (Sodium Chloride) 50 mls @ 100 mls/hr IV ONETIME ONE Stop: 08/31/19 21:44 Last Admin: 08/31/19 22:09 Dose: 100 mls/hr Imipramine HCl (Imipramine Hcl) 200 mg PO BEDTIME [facility] Imipramine HCl (Imipramine Hcl) 200 mg PO ONETIME ONE Stop: 08/31/19 21:31 Last Admin: 08/31/19 22:48 Dose: Not Given Ondansetron HCl (Zofran) 4 mg IVPUSH ONETIME ONE Stop: 08/31/19 17:44 Last Admin: 08/31/19 17:57 Dose: 4 mg - Exam Quality Assessment: No: Supplemental Oxygen General: Alert, Oriented, Cooperative, No Acute Distress Lungs: Normal Respiratory Effort Cardiovascular: Regular Rate, Regular Rhythm GI/Abdominal Exam: Soft, No Distention Extremities: No Pedal Edema Psy/Mental Status: Alert, Normal Affect Sepsis Event Note - Evaluation Sepsis Screening Result: No Definite Risk - Focused Exam Vital Signs: Vital Signs Temp Temp Pulse Pulse Resp BP Pulse Ox 09/01/19 08:19 35.9 C L 84 16 103/49 L 93 L 09/01/19 05:51 36.0 C L 85 16 96/39 L 97 09/01/19 01:03 36.4 C 98 16 104/45 L 98 Date Exam was Performed: 09/01/19 Time Exam was Performed: 13:39 - Problem List & Annotations (1) Acute kidney injury SNOMED Code(s): 51397603, 62653977 Code(s): N17.9 - ACUTE KIDNEY FAILURE, UNSPECIFIED Status: Acute Current Visit: Yes (2) Severe dehydration SNOMED Code(s): 376294341 Code(s): E86.0 - DEHYDRATION Status: Acute Current Visit: Yes (3) Nausea SNOMED Code(s): 245838456 Code(s): R11.0 - NAUSEA Status: Acute Current Visit: Yes (4) History of left nephrectomy SNOMED Code(s): 69964042943899 Code(s): Z90.5 - ACQUIRED ABSENCE OF KIDNEY Status: Chronic Current Visit : No (5) Crohn's disease SNOMED Code(s): 58233653 Code(s): K50.90 - CROHN'S DISEASE, UNSPECIFIED, WITHOUT COMPLICATIONS Status: Chronic Current Visit: No Qualifiers: Gastrointestinal tract location: unspecified location Digestive disease complication type: unspecified complication Qualified Code(s): K50.919 - Crohn 's disease, unspecified, with unspecified complications - Problem List Review Problem List Initiated/Reviewed/Updated: Yes - My Orders Last 24 Hours: My Active Orders 08/31/19 20:15 Resuscitation Status Routine 08/31/19 21:03 Patient Status [ADT] Routine Antiembolic Devices [RC] .Routine Height and Weight [RC] DAILY Intake and Output [RC] QSHIFT Notify Provider Vital Signs [RC] ASDIRECTED Oxygen Therapy [RC] PRN RT Aerosol Therapy [RC] ASDIRECTED Up With Assistance [RC] ASDIRECTED Vital Signs [RC] Q4H Acetaminophen [Tylenol] 650 mg PO Q4H PRN Albuterol [Proventil Neb Soln] 2.5 mg NEB Q4H PRN Docusate Sodium/Sennosides [Senna Plus] 1 tab PO BID PRN HYDROmorphone [Dilaudid] 1 mg IVPUSH Q2H PRN HYDROmorphone [Dilaudid] 6 mg PO Q6H PRN LORazepam [Ativan] 0.5 mg IVPUSH Q4H PRN Lactobacillus Rhamnosus GG [Culturelle] 1 cap PO BID Magnesium Hydroxide [Milk of Magnesia] 30 ml PO Q12H PRN Melatonin 9 mg PO BEDTIME Ondansetron [Zofran ODT] 4 mg PO Q6H PRN Ondansetron [Zofran] 4 mg IV Q6H PRN Scopolamine [Transderm-Scop] 1.5 mg TRDERM Q72H Sodium Chloride 0.9% [Normal Saline] 1,000 ml IV ASDIRECTED Sequential Compression Device [OM.PC] Routine 08/31/19 21:30 Magnesium Sulfate/Water [Magnesium Sulfate in Water Premix] 2 gm Premix Bag 1 bag IV Q6H 09/01/19 05:34 Heparin Sodium [Heparin Lock Flush 100 Units/ML] 500 units FLUSH ASDIRECTED PRN 09/01/19 07:30 Pantoprazole [ProTONIX] 40 mg PO ACBREAKFAST 09/01/19 09:00 DULoxetine [Cymbalta] 60 mg PO DAILY calcitrioL [Calcitriol] 0.25 mg PO DAILY 09/01/19 21:00 Patient's Own Medication [Ptom] 0 each PO BEDTIME cefTRIAXone [Rocephin] 1 gm Sodium Chloride 0.9% [Normal Saline] 50 ml IV Q24H 09/02/19 05:00 BASIC METABOLIC PANEL,BMP [CHEM] Timed CBC W/O DIFF,HEMOGRAM [HEME] Timed (1) - Plan Plan:: ASSESSMENT AND PLAN - Acute oliguric kidney injury-secondary to severe dehydration. She has only her right kidney remaining. Creatinine level has risen from yesterday despite the fluids overnight. She has not made any urine since hospital admission. No strong urgency to initiate dialysis at this point but without any urine output we may be heading in that direction. -Continue IV fluids -Repeat BMP this afternoon -Repeat labs in the morning -Symptomatic management of nausea with scopolamine patch -Consider transfer to a higher level of care if she continues to be oliguric/ anuric Acute cystitis without hematuria, suspected-moderate suggestion of infection based on urinalysis. Culture negative so far. 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 Incision is healing by secondary intention and appears to be doing well at this time. Ostomy output has been normal. Hypomagnesemia-chronic problem with her previous colectomy. -Supplement magnesium Maintenance issues - - DVT prophylaxis -SCDs - GI prophylaxis -PPI - Nutrition -regular diet Disposition -anticipate discharge home after the hospital stay Primary care physician -Dr. Lisa Pedersen M.D.
[2019-09-01] MEDS: cefTRIAXone 1 GM in Sodium Chloride 0.9% 50 ML IV SCH (21:03)
[2019-09-01] MEDS: IMIPRAMINE HCL 100 MG PO SCH (21:05)
[2019-09-01] MEDS: Melatonin 3 MG Tab PO SCH (21:05)
[2019-09-02] MEDS: Sodium Chloride 0.9% 1,000 ML IV SCH (03:26)
[2019-09-02] MEDS: HYDROmorphone 2 MG Tab PO PRN ×4 (03:45→19:47)
[2019-09-02] MEDS: Magnesium Sulfate/Water 2 GM in Premix Bag 1 BAG IV SCH ×3 (03:46→16:58)
[2019-09-02] MEDS: HYDROmorphone 1 MG/ML Syringe IVPUSH PRN ×3 (03:56→08:53)
[2019-09-02] MEDS: Pantoprazole 40 MG Tab.CR PO SCH (07:32)
[2019-09-02] MEDS: DULoxetine 30 MG Cap PO SCH (08:45)
[2019-09-02] MEDS: CALCITRIOL 0.25 MG PO SCH (08:46)
[2019-09-02] MEDS: Lactobacillus Rhamnosus GG (Probiotic) Cap PO SCH ×3 (08:46→20:15)
--- NOTE | 2019-09-02 13:04 | PCM.PN ---
- General Info Date of Service: 09/02/19 Subjective Update: Ms. Foley has shown some improvement over the last 24 hours. Appetite seems to be improving along with her oral intake. Renal function significantly improved and she is started to make urine with slowly improving urine output. She has redeveloped significant anemia although is not showing overt onset of hemolysis. Functional Status: Reports: Tolerating Diet, Ambulating, Urinating - Review of Systems General: Reports: Weakness. Denies: Fever, Chills Pulmonary: Reports: No Symptoms Cardiovascular: Reports: No Symptoms Gastrointestinal: Reports: Abdominal Pain. Denies: Diarrhea, Difficulty Swallowing, Nausea, Vomiting - Patient Data Vitals - Most Recent: Last Vital Signs Temp 96.6 F L 09/02/19 10:10 Pulse 81 09/02/19 10:10 Resp 18 09/02/19 10:10 BP 110/58 L 09/02/19 10:10 Pulse Ox 96 09/02/19 10:10 Weight - Most Recent: 163 lb I&O - Last 24 Hours: Intake & Output 09/01/19 09/02/19 09/02/19 22:59 06:59 14:59 Intake Total 3078 2300 290 Output Total 2175 600 400 Balance 903 1700 -110 Lab Results Last 24 Hours: Laboratory Results - last 24 hr 09/01/19 09/02/19 09/02/19 Range/Units 14:04 05:59 05:59 WBC 2.6 L (4.5-11.0) K/uL RBC 2.71 L (3.30-5.50) M/uL Hgb 7.0 L D (12.0-15.0) g/dL Hct 23.6 L (36.0-48.0) % MCV 87 (80-98) fL MCH 26 L (27-31) pg MCHC 30 L (32-36) % Plt Count 96 L (150-400) K/uL Sodium 132 L 134 L (140-148) mmol/L Potassium 3.9 3.7 (3.6-5.2) mmol/L Chloride 99 L 103 (100-108) mmol/L Carbon Dioxide 24 26 (21-32) mmol/L Anion Gap 12.9 8.7 (5.0-14.0) mmol/L BUN 41 H 28 H (7-18) mg/dL Creatinine 3.7 H* 2.4 H (0.6-1.0) mg/dL Est Cr Clr Drug Dosing 15.92 24.54 mL/min Estimated GFR (MDRD) 13 L 21 L (>60) Glucose 123 H 110 H (74-106) mg/dL Calcium 7.9 L 7.5 L (8.5-10.1) mg/dL Blood Type Gel Antibody Screen Crossmatch 09/02/19 Range/Units 06:25 WBC (4.5-11.0) K/uL RBC (3.30-5.50) M/uL Hgb (12.0-15.0) g/dL Hct (36.0-48.0) % MCV (80-98) fL MCH (27-31) pg MCHC (32-36) % Plt Count (150-400) K/uL Sodium (140-148) mmol/L Potassium (3.6-5.2) mmol/L Chloride (100-108) mmol/L Carbon Dioxide (21-32) mmol/L Anion Gap (5.0-14.0) mmol/L BUN (7-18) mg/dL Creatinine (0.6-1.0) mg/dL Est Cr Clr Drug Dosing mL/min Estimated GFR (MDRD) (>60) Glucose (74-106) mg/dL Calcium (8.5-10.1) mg/dL Blood Type A POSITIVE Gel Antibody Screen Positive A* Crossmatch See Detail Eliud Results Last 24 Hours: Microbiology 08/31/19 18:41 Stool Culture - Preliminary Stool / Feces NORMAL ENTERIC CLARY 1 DAY Shiga Toxin I - Final NEGATIVE FOR SHIGA TOXIN 1 Shiga Toxin II - Final NEGATIVE FOR SHIGA TOXIN 2 REFERENCE RANGE: NEGATIVE Med Orders - Current: Current Medications Acetaminophen (Tylenol) 650 mg PO Q4H PRN PRN Reason: Pain (Mild 1-3)/fever Albuterol (Proventil Neb Soln) 2.5 mg NEB Q4H PRN PRN Reason: Shortness Of Breath/wheezing Duloxetine HCl (Cymbalta) 60 mg PO DAILY [facility] Last Admin: 09/02/19 08:45 Dose: 60 mg Heparin Sodium (Porcine) (Heparin Lock Flush 100 Units/Ml) 500 units FLUSH ASDIRECTED PRN PRN Reason: Keep Vein Open Hydromorphone HCl (Dilaudid) 2 mg PO Q4H PRN PRN Reason: Pain (moderate 4-6) Last Admin: 09/02/19 12:27 Dose: 2 mg Ceftriaxone Sodium 1 gm/ (Sodium Chloride) 50 mls @ 100 mls/hr IV Q24H [facility] Last Admin: 09/01/19 21:03 Dose: 100 mls/hr Magnesium Sulfate 2 gm/ Premix 50 mls @ 12.5 mls/hr IV Q6H [facility] Stop: 09/02/19 19:29 Last Admin: 09/02/19 08:47 Dose: 12.5 mls/hr Lactobacillus Rhamnosus (Culturelle) 1 cap PO BID [facility] Last Admin: 09/02/19 08:46 Dose: 1 cap Lorazepam (Ativan) 0.5 mg IVPUSH Q4H PRN PRN Reason: Nausea/Vomiting Last Admin: 09/01/19 22:04 Dose: 0.5 mg Magnesium Hydroxide (Milk Of Magnesia) 30 ml PO Q12H PRN PRN Reason: Constipation Melatonin (Melatonin) 9 mg PO BEDTIME [facility] Last Admin: 09/01/19 21:05 Dose: 9 mg Calcitriol ( Calcitriol) 0.25 Mg* *Pom 0.25 mg PO DAILY [facility] Last Admin: 09/02/19 08:46 Dose: Not Given Ondansetron HCl (Zofran Odt) 4 mg PO Q6H PRN PRN Reason: Nausea able to take PO Ondansetron HCl (Zofran) 4 mg IV Q6H PRN PRN Reason: Nausea/Vomiting Last Admin: 08/31/19 22:17 Dose: 4 mg Pantoprazole Sodium (Protonix) 40 mg PO ACBREAKFAST [facility] Last Admin: 09/02/19 07:32 Dose: 40 mg Imipramine Hcl 100mg (CapPom) 0 each PO BEDTIME [facility] Last Admin: 09/01/19 21:05 Dose: 1 each Scopolamine (Transderm-Scop) 1.5 mg TRDERM Q72H [facility] Last Admin: 08/31/19 22:47 Dose: 1.5 mg Senna/Docusate Sodium (Senna Plus) 1 tab PO BID PRN PRN Reason: Constipation Sodium Chloride (Saline Flush) 10 ml FLUSH ASDIRECTED PRN PRN Reason: Keep Vein Open Last Admin: 08/31/19 17:43 Dose: 10 ml Discontinued Medications Hydromorphone HCl (Dilaudid) 0.5 mg IVPUSH ONETIME ONE Stop: 08/31/19 19:04 Last Admin: 08/31/19 19:16 Dose: 0.5 mg Hydromorphone HCl (Dilaudid) 6 mg PO Q6H PRN PRN Reason: Pain (moderate 4-6) Last Admin: 09/02/19 03:45 Dose: 6 mg Hydromorphone HCl (Dilaudid) 1 mg IVPUSH Q2H PRN PRN Reason: Pain (severe 7-10) Last Admin: 09/02/19 08:53 Dose: 1 mg Sodium Chloride (Normal Saline) 250 mls @ 250 mls/hr IV ASDIRECTED [facility] Last Admin: 08/31/19 17:43 Dose: 250 mls/hr Sodium Chloride (Normal Saline) 1,000 mls @ 125 mls/hr IV ASDIRECTED [facility] Last Admin: 09/02/19 03:26 Dose: 125 mls/hr Ceftriaxone Sodium 1 gm/ (Sodium Chloride) 50 mls @ 100 mls/hr IV ONETIME ONE Stop: 08/31/19 21:44 Last Admin: 08/31/19 22:09 Dose: 100 mls/hr Imipramine HCl (Imipramine Hcl) 200 mg PO BEDTIME [facility] Imipramine HCl (Imipramine Hcl) 200 mg PO ONETIME ONE Stop: 08/31/19 21:31 Last Admin: 08/31/19 22:48 Dose: Not Given Ondansetron HCl (Zofran) 4 mg IVPUSH ONETIME ONE Stop: 08/31/19 17:44 Last Admin: 08/31/19 17:57 Dose: 4 mg - Exam Quality Assessment: DVT Prophylaxis General: Alert, Oriented, Cooperative, Mild Distress Lungs: Clear to Auscultation, Normal Respiratory Effort Cardiovascular: Regular Rate, Regular Rhythm, No Murmurs GI/Abdominal Exam: Soft, No Organomegaly, Tender. No: Distended, Guarding, Rigid, Rebound Extremities: Non-Tender, No Pedal Edema Skin: Warm, Dry Sepsis Event Note - Evaluation Sepsis Screening Result: No Definite Risk - Focused Exam Vital Signs: Vital Signs Temp Pulse Resp BP BP Pulse Ox 09/02/19 10:10 96.6 F L 81 18 110/58 L 96 09/02/19 07:32 96.8 F L 80 16 108/56 L 96 09/02/19 03:00 96.4 F L 77 16 92/50 L 100 Date Exam was Performed: 09/02/19 Time Exam was Performed: 13:00 - Problem List Review Problem List Initiated/Reviewed/Updated: Yes - My Orders Last 24 Hours: My Active Orders 09/02/19 10:39 HYDROmorphone [Dilaudid] 2 mg PO Q4H PRN Convert IV to Saline Lock [OM.PC] Routine 09/02/19 12:56 Consult to Physician [CONS] Routine 09/02/19 12:57 Notify Provider Consults [RC] ASDIRECTED 09/03/19 05:00 BASIC METABOLIC PANEL,BMP [CHEM] Timed CBC WITH AUTO DIFF [HEME] Timed - Plan Plan:: ASSESSMENT AND PLAN - Acute oliguric kidney injury-secondary to severe dehydration. She has only her right kidney remaining. Improvement in creatinine over the last 24 hours, urine output slowly improving -Saline lock IV -Repeat labs in the morning -Symptomatic management of nausea with scopolamine patch Acute cystitis without hematuria, suspected-moderate suggestion of infection based on urinalysis. Culture negative so far. 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 Incision is healing by secondary intention and appears to be doing well at this time. Ostomy output has been normal. Hypomagnesemia-chronic problem with her previous colectomy. -Supplement magnesium Hemolytic anemia-significant problem for her in the past as well as during recent hospitalizations. Specific etiology not apparent based on previous evaluation. Hemoglobin has now dropped to 7.0 -Transfuse 1 unit of red blood cells later today when available -Follow-up hemoglobin in a.m. Maintenance issues - - DVT prophylaxis -SCDs - GI prophylaxis -PPI - Nutrition -regular diet Disposition -anticipate discharge home after the hospital stay Primary care physician -Dr. Lisa Gerber
[2019-09-02] MEDS: LORazepam 2 MG/ML SDV IVPUSH PRN (18:36)
[2019-09-02] MEDS: Acetaminophen 325 MG Tab PO PRN (18:38)
[2019-09-02] MEDS: Melatonin 3 MG Tab PO SCH ×2 (19:49→20:15)
[2019-09-02] MEDS: IMIPRAMINE HCL 100 MG PO SCH ×2 (19:50→20:15)
[2019-09-02] MEDS: tiZANidine 4 MG Tab PO PRN (20:32)
[2019-09-02] MEDS: cefTRIAXone 1 GM in Sodium Chloride 0.9% 50 ML IV SCH (20:32)
[2019-09-03] MEDS: HYDROmorphone 2 MG Tab PO PRN ×3 (00:33→08:53)
[2019-09-03] MEDS: Ondansetron 4 MG/2 ML SDV IV PRN (00:51)
[2019-09-03] MEDS: Acetaminophen 325 MG Tab PO PRN ×3 (04:27→16:45)
[2019-09-03] MEDS: Pantoprazole 40 MG Tab.CR PO SCH (07:41)
[2019-09-03] MEDS: Lactobacillus Rhamnosus GG (Probiotic) Cap PO SCH ×3 (08:55→20:53)
[2019-09-03] MEDS: CALCITRIOL 0.25 MG PO SCH (08:55)
[2019-09-03] MEDS: DULoxetine 30 MG Cap PO SCH (08:56)
--- NOTE | 2019-09-03 12:24 | PCM.PN ---
- General Info Date of Service: 09/03/19 Subjective Update: Ms. Foley has shown further improvement since yesterday. Urine output has been picking up and renal function has significantly improved from admission. She has been in the hallways ambulating on a regular basis and reports that her appetite is improved with less nausea. Functional Status: Reports: Tolerating Diet, Ambulating, Urinating - Review of Systems General: Reports: Weakness. Denies: Fever, Chills Pulmonary: Reports: No Symptoms Cardiovascular: Reports: No Symptoms Gastrointestinal: Reports: Abdominal Pain. Denies: Constipation, Diarrhea, Difficulty Swallowing, Hematochezia, Nausea, Vomiting Genitourinary: Reports: No Symptoms - Patient Data Vitals - Most Recent: Last Vital Signs Temp 97.8 F 09/03/19 07:33 Pulse 81 09/03/19 07:33 Resp 16 09/03/19 07:33 BP 96/56 L 09/03/19 07:33 Pulse Ox 98 09/03/19 07:33 Weight - Most Recent: 163 lb I&O - Last 24 Hours: Intake & Output 09/02/19 09/03/19 09/03/19 22:59 06:59 14:59 Intake Total 575 290 Output Total 1300 1250 Balance -725 -960 Lab Results Last 24 Hours: Laboratory Results - last 24 hr 09/02/19 09/03/19 09/03/19 Range/Units 06:25 05:55 05:55 WBC 3.4 L (4.5-11.0) K/uL RBC 2.97 L (3.30-5.50) M/uL Hgb 7.8 L (12.0-15.0) g/dL Hct 26.1 L (36.0-48.0) % MCV 88 (80-98) fL MCH 26 L (27-31) pg MCHC 30 L (32-36) % Plt Count 100 L (150-400) K/uL Neut % (Auto) 69 H (36-66) % Lymph % (Auto) 21 L (24-44) % [place] % (Auto) 10 H (2-6) % Eos % (Auto) 0 L (2-4) % Baso % (Auto) 0 (0-1) % Sodium 136 L (140-148) mmol/L Potassium 3.8 (3.6-5.2) mmol/L Chloride 104 (100-108) mmol/L Carbon Dioxide 27 (21-32) mmol/L Anion Gap 8.8 (5.0-14.0) mmol/L BUN 17 (7-18) mg/dL Creatinine 1.6 H (0.6-1.0) mg/dL Est Cr Clr Drug Dosing 36.82 mL/min Estimated GFR (MDRD) 33 L (>60) Glucose 124 H (74-106) mg/dL Calcium 7.3 L (8.5-10.1) mg/dL Blood Type A POSITIVE Gel Antibody Screen Positive A* Antibody Identification Anti-K Crossmatch See Detail Eliud Results Last 24 Hours: Microbiology 08/31/19 18:41 Stool Culture - Preliminary Stool / Feces NORMAL ENTERIC CLARY 2 DAYS Shiga Toxin I - Final NEGATIVE FOR SHIGA TOXIN 1 Shiga Toxin II - Final NEGATIVE FOR SHIGA TOXIN 2 REFERENCE RANGE: NEGATIVE Med Orders - Current: Current Medications Acetaminophen (Tylenol) 650 mg PO Q4H PRN PRN Reason: Pain (Mild 1-3)/fever Last Admin: 09/03/19 04:27 Dose: 650 mg Albuterol (Proventil Neb Soln) 2.5 mg NEB Q4H PRN PRN Reason: Shortness Of Breath/wheezing Duloxetine HCl (Cymbalta) 60 mg PO DAILY [facility] Last Admin: 09/03/19 08:56 Dose: 60 mg Heparin Sodium (Porcine) (Heparin Lock Flush 100 Units/Ml) 500 units FLUSH ASDIRECTED PRN PRN Reason: Keep Vein Open Ceftriaxone Sodium 1 gm/ (Sodium Chloride) 50 mls @ 100 mls/hr IV Q24H [facility] Last Admin: 09/02/19 20:32 Dose: 100 mls/hr Lactobacillus Rhamnosus (Culturelle) 1 cap PO BID [facility] Last Admin: 09/03/19 08:55 Dose: 1 cap Magnesium Hydroxide (Milk Of Magnesia) 30 ml PO Q12H PRN PRN Reason: Constipation Melatonin (Melatonin) 9 mg PO BEDTIME [facility] Last Admin: 09/02/19 20:15 Dose: Not Given Calcitriol ( Calcitriol) 0.25 Mg* *Pom 0.25 mg PO DAILY [facility] Last Admin: 09/03/19 08:55 Dose: Not Given Ondansetron HCl (Zofran Odt) 4 mg PO Q6H PRN PRN Reason: Nausea able to take PO Ondansetron HCl (Zofran) 4 mg IV Q6H PRN PRN Reason: Nausea/Vomiting Last Admin: 09/03/19 00:51 Dose: 4 mg Pantoprazole Sodium (Protonix) 40 mg PO ACBREAKFAST [facility] Last Admin: 09/03/19 07:41 Dose: 40 mg Imipramine Hcl 100mg (CapPom) 0 each PO BEDTIME [facility] Last Admin: 09/02/19 20:15 Dose: Not Given Scopolamine (Transderm-Scop) 1.5 mg TRDERM Q72H [facility] Last Admin: 08/31/19 22:47 Dose: 1.5 mg Senna/Docusate Sodium (Senna Plus) 1 tab PO BID PRN PRN Reason: Constipation Sodium Chloride (Saline Flush) 10 ml FLUSH ASDIRECTED PRN PRN Reason: Keep Vein Open Last Admin: 08/31/19 17:43 Dose: 10 ml Tizanidine HCl (Zanaflex) 4 mg PO BID PRN PRN Reason: Muscle Spasm Last Admin: 09/02/19 20:32 Dose: 4 mg Tramadol HCl (Ultram) 50 mg PO Q4H PRN PRN Reason: Pain Discontinued Medications Hydromorphone HCl (Dilaudid) 0.5 mg IVPUSH ONETIME ONE Stop: 08/31/19 19:04 Last Admin: 08/31/19 19:16 Dose: 0.5 mg Hydromorphone HCl (Dilaudid) 6 mg PO Q6H PRN PRN Reason: Pain (moderate 4-6) Last Admin: 09/02/19 03:45 Dose: 6 mg Hydromorphone HCl (Dilaudid) 1 mg IVPUSH Q2H PRN PRN Reason: Pain (severe 7-10) Last Admin: 09/02/19 08:53 Dose: 1 mg Hydromorphone HCl (Dilaudid) 2 mg PO Q4H PRN PRN Reason: Pain (moderate 4-6) Last Admin: 09/02/19 16:04 Dose: 2 mg Hydromorphone HCl (Dilaudid) 4 mg PO Q4H PRN PRN Reason: Pain (moderate 4-6) Last Admin: 09/03/19 08:53 Dose: 4 mg Sodium Chloride (Normal Saline) 250 mls @ 250 mls/hr IV ASDIRECTED [facility] Last Admin: 08/31/19 17:43 Dose: 250 mls/hr Magnesium Sulfate 2 gm/ Premix 50 mls @ 12.5 mls/hr IV Q6H [facility] Stop: 09/02/19 19:29 Last Admin: 09/02/19 16:58 Dose: 12.5 mls/hr Sodium Chloride (Normal Saline) 1,000 mls @ 125 mls/hr IV ASDIRECTED [facility] Last Admin: 09/02/19 03:26 Dose: 125 mls/hr Ceftriaxone Sodium 1 gm/ (Sodium Chloride) 50 mls @ 100 mls/hr IV ONETIME ONE Stop: 08/31/19 21:44 Last Admin: 08/31/19 22:09 Dose: 100 mls/hr Imipramine HCl (Imipramine Hcl) 200 mg PO BEDTIME [facility] Imipramine HCl (Imipramine Hcl) 200 mg PO ONETIME ONE Stop: 08/31/19 21:31 Last Admin: 08/31/19 22:48 Dose: Not Given Lorazepam (Ativan) 0.5 mg IVPUSH Q4H PRN PRN Reason: Nausea/Vomiting Last Admin: 09/02/19 18:36 Dose: 0.5 mg Ondansetron HCl (Zofran) 4 mg IVPUSH ONETIME ONE Stop: 08/31/19 17:44 Last Admin: 08/31/19 17:57 Dose: 4 mg - Exam Quality Assessment: DVT Prophylaxis General: Alert, Oriented, Cooperative, Mild Distress Lungs: Clear to Auscultation, Normal Respiratory Effort Cardiovascular: Regular Rate, Regular Rhythm, No Murmurs GI/Abdominal Exam: Soft, Non-Tender, No Organomegaly, No Distention Extremities: Non-Tender, No Pedal Edema Sepsis Event Note - Evaluation Sepsis Screening Result: No Definite Risk - Focused Exam Vital Signs: Vital Signs Temp Temp Pulse Resp BP BP Pulse Ox 09/03/19 07:33 97.8 F 81 16 96/56 L 98 09/03/19 04:57 99.0 F 09/03/19 04:29 113/73 09/03/19 04:27 100.0 F 09/03/19 04:01 100.0 F 84 16 88/43 L 94 L Date Exam was Performed: 09/03/19 Time Exam was Performed: 12:21 - Problem List Review Problem List Initiated/Reviewed/Updated: Yes - My Orders Last 24 Hours: My Active Orders 09/02/19 12:56 Consult to Physician [CONS] Routine 09/02/19 12:57 Notify Provider Consults [RC] ASDIRECTED 09/02/19 19:59 tiZANidine [Zanaflex] 4 mg PO BID PRN 09/03/19 12:17 traMADol [Ultram] 50 mg PO Q4H PRN 09/03/19 12:18 Transfuse Red Blood Cells [COMM] Urgent 09/04/19 05:00 BASIC METABOLIC PANEL,BMP [CHEM] Timed CBC WITH AUTO DIFF [HEME] Timed - Plan Plan:: ASSESSMENT AND PLAN - Acute oliguric kidney injury-secondary to severe dehydration. She has only her right kidney remaining. Urine output has improved and creatinine also improved to 1.6 today -Saline lock IV -Repeat labs in the morning -Symptomatic management of nausea with scopolamine patch Acute cystitis without hematuria, suspected-moderate suggestion of infection based on urinalysis. Culture negative so far. 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 Incision is healing by secondary intention and appears to be doing well at this time. Ostomy output has been normal. Hypomagnesemia-chronic problem with her previous colectomy. -Supplement magnesium Hemolytic anemia-significant problem for her in the past as well as during recent hospitalizations. Specific etiology not apparent based on previous evaluation. Now improved to 7.8 following transfusion of 1 unit of red blood cells. Will manage as we did during last hospitalization with a few more transfusions prior to discharge. -Transfuse 1 unit of red blood cells today -Follow-up hemoglobin in a.m. Maintenance issues - - DVT prophylaxis -SCDs - GI prophylaxis -PPI - Nutrition -regular diet Disposition -anticipate discharge home after the hospital stay Primary care physician -Dr. Lisa Gerber
[2019-09-03] MEDS: traMADol 50 MG Tab PO PRN ×3 (12:41→21:40)
--- NOTE | 2019-09-03 14:10 | CONS ---
DATE OF SERVICE: 09/03/2019 REFERRING PHYSICIAN: CONSULTING PHYSICIAN: Aline Landeros PA-C ADMISSION DIAGNOSES: 1. Open abdominal incision. 2. Acute kidney injury. 3. Dehydration. 4. Nausea. 5. History of left nephrectomy. 6. Crohn disease. 7. Chronic hypomagnesemia. 8. Status post subtotal colectomy with right-sided ostomy. HISTORY: Ms. Aline Foley presented to the emergency room on 08/31/2019, and Dr. Enrique Dickerson requested consultation in regard to her open abdominal incision, which she has been packing at home. Aline states, she presented to the ER after several days of nausea, vomiting, and came in weak and dehydrated. No appetite. MEDICATIONS: See EMR. CHRONIC MEDICAL HISTORY: Crohn's, multiple bowel surgeries, has had an ostomy for over 40 years, migraine headaches, chronic pain, anxiety, vitamin B12 deficiency, chronic low magnesium. PAST SURGICAL HISTORY: See EMR. SOCIAL HISTORY: . Not employed. Does not smoke. Drinks caffeinated and carbonated beverages rare. REVIEW OF SYSTEMS: CONSTITUTIONAL: Denies any fever, chills, night sweats, or fatigue. NECK: Negative. CHEST: No chest pain, shortness of breath, fast or irregular heartbeats. LUNGS: No cough. ABDOMEN: No abdominal pain. Incision looks good. Ileostomy has been working well. EXTREMITIES: No joint pain, but does report her legs feel weak. SKIN: There has been no rash. NEURO: Has been dizzy, weak, and afraid of falling. PSYCHIATRIC: Increased depression stating because she has been sick for so long. Remainder of review of systems negative for any pertinent positives and negatives. OBJECTIVE: GENERAL: Aline Foley is a 58-year-old female. VITAL SIGNS: Height is 5 feet 7 inches. Weight is 163 pounds. TPR at 07:33; 97.8, 81, 16, and blood pressure 96/56. HEENT: Negative. NECK: Supple. HEART: Regular rate and rhythm. LUNGS: Clear. ABDOMEN: Incision is almost flush with the skin. 4x4 lays and open incision is healing well. Benoit tissue granulation occurring. Ostomy is intact. EXTREMITIES: Without peripheral edema. SCDs are on. NEUROLOGIC: Intact. SKIN: Without rash. PSYCHIATRIC: Mood and affect appropriate. ASSESSMENT: 1. Open abdominal incision. 2. Acute kidney injury. 3. Severe dehydration. 4. Nausea. 5. History of left nephrectomy. 6. Crohn disease. 7. Hemolytic anemia, 1 unit of red blood cells transfused on 09/02/2019. PLAN: Continue dressing changes b.i.d. Will evaluate p.r.n. or in a.m. Thank you for this consultation. Aline Landeros PA-C /[id number]
[2019-09-03] MEDS: Ondansetron 4 MG Tab.DIS PO PRN (18:28)
[2019-09-03] MEDS: IMIPRAMINE HCL 100 MG PO SCH ×2 (19:40→20:53)
[2019-09-03] MEDS: tiZANidine 4 MG Tab PO PRN (19:40)
[2019-09-03] MEDS: Melatonin 3 MG Tab PO SCH ×2 (19:43→20:53)
[2019-09-03] MEDS: cefTRIAXone 1 GM in Sodium Chloride 0.9% 50 ML IV SCH (21:34)
[2019-09-03] MEDS: Scopolamine 1.5 MG Transdermal Patch TRDERM SCH (21:35)
[2019-09-04] MEDS: traMADol 50 MG Tab PO PRN ×5 (02:29→20:23)
[2019-09-04] MEDS: Acetaminophen 325 MG Tab PO PRN ×3 (08:18→20:22)
[2019-09-04] MEDS: Ondansetron 4 MG Tab.DIS PO PRN ×2 (08:25→18:44)
[2019-09-04] MEDS: Loperamide 2 MG Cap PO SCH ×2 (09:51→16:03)
[2019-09-04] MEDS: Pantoprazole 40 MG Tab.CR PO SCH (09:51)
[2019-09-04] MEDS: Lactobacillus Rhamnosus GG (Probiotic) Cap PO SCH ×2 (09:51→20:26)
[2019-09-04] MEDS: CALCITRIOL 0.25 MG PO SCH (09:51)
[2019-09-04] MEDS: DULoxetine 30 MG Cap PO SCH (09:52)
[2019-09-04] MEDS ORDERED: Lactated Ringers 1,000 ML IV SCH (10:45)
[2019-09-04] MEDS: Atropine/Diphenoxylate 0.025-2.5 MG Tab PO SCH ×3 (11:04→20:31)
[2019-09-04] MEDS: LORazepam 0.5 MG Tab PO PRN ×2 (11:11→18:44)
--- NOTE | 2019-09-04 11:31 | PN ---
DATE OF SERVICE: 09/04/2019 SUBJECTIVE: Aline states that she is feeling a little better. Hemoglobin this morning 8.4, creatinine 1.3. She received 1 unit of packed red blood cells yesterday. She has a virtual appointment with kidney specialist today. Vital signs have been stable, afebrile. Changing her colostomy quite frequently. She has had 3250 mL out of stool. REVIEW OF SYSTEMS: Remainder of review of systems negative for any pertinent positives and negatives. OBJECTIVE: GENERAL: Aline Foley is a 58-year-old female. Alert, orientated. VITAL SIGNS: TPR at 0804, 97.9; 74; 24; blood pressure 111/62. HEENT: Negative. NECK: Supple. HEART: Regular rate and rhythm. LUNGS: Clear. ABDOMEN: Dressings dry and intact. Abdominal binder is on. EXTREMITIES: Without peripheral edema. ASSESSMENT: 1. Diarrhea, large output from ostomy. 2. Open abdominal incision. 3. Acute kidney injury. 4. Severe dehydration, resolving. 5. Nausea. 6. History of left nephrectomy. 7. Crohn's disease. 8. Hemolytic anemia, 2 units of red blood cells transfused on 09/02/2019 and 09/03/2019. PLAN: 1. Check Clostridium difficile now. 2. Imodium/loperamide 2 mg p.o. q.8 hours scheduled. 3. Lomotil 0.025/2.5 mg 1 tablet p.o. t.i.d. scheduled. 4. We will evaluate p.r.n. or in a.m. Aline Landreos PA-C /[id number]
--- NOTE | 2019-09-04 12:03 | PCM.PN ---
- General Info Date of Service: 09/04/19 Subjective Update: Ms. Foley has developed increased symptoms of nausea with higher ostomy output since yesterday. Oral intake today thus far has been poor. Hemoglobin relatively stable following transfusion over the past 2 days. She will receive her third transfusion today to try and stabilize her hemoglobin level until she is able to see hematology. Functional Status: Reports: Ambulating, Urinating. Denies: Tolerating Diet - Review of Systems General: Reports: Weakness. Denies: Fever, Chills Pulmonary: Reports: No Symptoms Cardiovascular: Reports: No Symptoms Gastrointestinal: Reports: Abdominal Pain, Decreased Appetite, Nausea. Denies: Difficulty Swallowing, Vomiting Genitourinary: Reports: No Symptoms - Patient Data Vitals - Most Recent: Last Vital Signs Temp 96.5 F L 09/04/19 11:23 Pulse 72 09/04/19 11:23 Resp 18 09/04/19 11:23 BP 128/60 09/04/19 11:23 Pulse Ox 99 09/04/19 10:53 Weight - Most Recent: 163 lb I&O - Last 24 Hours: Intake & Output 09/03/19 09/04/19 09/04/19 22:59 06:59 14:59 Intake Total 1410 400 Output Total 3650 750 1000 Balance -2240 -750 -600 Lab Results Last 24 Hours: Laboratory Results - last 24 hr 09/02/19 09/04/19 09/04/19 Range/Units 06:25 04:25 04:25 WBC 3.2 L (4.5-11.0) K/uL RBC 3.16 L (3.30-5.50) M/uL Hgb 8.4 L (12.0-15.0) g/dL Hct 27.9 L (36.0-48.0) % MCV 88 (80-98) fL MCH 27 (27-31) pg MCHC 30 L (32-36) % Plt Count 89 L (150-400) K/uL Neut % (Auto) 68 H (36-66) % Lymph % (Auto) 20 L (24-44) % [place] % (Auto) 12 H (2-6) % Eos % (Auto) 0 L (2-4) % Baso % (Auto) 0 (0-1) % Sodium 137 L (140-148) mmol/L Potassium 3.7 (3.6-5.2) mmol/L Chloride 104 (100-108) mmol/L Carbon Dioxide 25 (21-32) mmol/L Anion Gap 11.7 (5.0-14.0) mmol/L BUN 14 (7-18) mg/dL Creatinine 1.3 H (0.6-1.0) mg/dL Est Cr Clr Drug Dosing 45.31 mL/min Estimated GFR (MDRD) 42 L (>60) Glucose 121 H (74-106) mg/dL Calcium 8.0 L (8.5-10.1) mg/dL Blood Type A POSITIVE Gel Antibody Screen Positive A* Antibody Identification Anti-K Crossmatch See Detail Eliud Results Last 24 Hours: Microbiology 09/04/19 08:22 Clostridioides difficile (PCR) - Final Stool / Feces 08/31/19 18:41 Stool Culture - Final Stool / Feces NORMAL ENTERIC CLARY. NO SALMONELLA, SHIGELLA, CAMPYLOBACTER OR E.COLI O157 ISOLATED. Shiga Toxin I - Final NEGATIVE FOR SHIGA TOXIN 1 Shiga Toxin II - Final NEGATIVE FOR SHIGA TOXIN 2 REFERENCE RANGE: NEGATIVE Med Orders - Current: Current Medications Acetaminophen (Tylenol) 650 mg PO Q4H PRN PRN Reason: Pain (Mild 1-3)/fever Last Admin: 09/04/19 08:18 Dose: 650 mg Albuterol (Proventil Neb Soln) 2.5 mg NEB Q4H PRN PRN Reason: Shortness Of Breath/wheezing Diphenoxylate HCl/Atropine (Lomotil 0.025-2.5 Mg) 1 tab PO TID [facility] Last Admin: 09/04/19 11:04 Dose: 1 tab Duloxetine HCl (Cymbalta) 60 mg PO DAILY [facility] Last Admin: 09/04/19 09:52 Dose: 60 mg Heparin Sodium (Porcine) (Heparin Lock Flush 100 Units/Ml) 500 units FLUSH ASDIRECTED PRN PRN Reason: Keep Vein Open Ceftriaxone Sodium 1 gm/ (Sodium Chloride) 50 mls @ 100 mls/hr IV Q24H [facility] Last Admin: 09/03/19 21:34 Dose: 100 mls/hr Sodium Chloride (Normal Saline) 1,000 mls @ 125 mls/hr IV ASDIRECTED [facility] Lactobacillus Rhamnosus (Culturelle) 1 cap PO BID [facility] Last Admin: 09/04/19 09:51 Dose: 1 cap Loperamide HCl (Imodium) 2 mg PO Q8H [facility] Last Admin: 09/04/19 09:51 Dose: 2 mg Lorazepam (Ativan) 0.5 mg PO Q4H PRN PRN Reason: Anxiety Last Admin: 09/04/19 11:11 Dose: 0.5 mg Magnesium Hydroxide (Milk Of Magnesia) 30 ml PO Q12H PRN PRN Reason: Constipation Melatonin (Melatonin) 9 mg PO BEDTIME [facility] Last Admin: 09/03/19 20:53 Dose: Not Given Calcitriol ( Calcitriol) 0.25 Mg* *Pom 0.25 mg PO DAILY [facility] Last Admin: 09/04/19 09:51 Dose: Not Given Olanzapine (Zyprexa) 5 mg PO Q12H PRN PRN Reason: Anxiety Ondansetron HCl (Zofran Odt) 4 mg PO Q6H PRN PRN Reason: Nausea able to take PO Last Admin: 09/04/19 08:25 Dose: 4 mg Ondansetron HCl (Zofran) 4 mg IV Q6H PRN PRN Reason: Nausea/Vomiting Last Admin: 09/03/19 00:51 Dose: 4 mg Pantoprazole Sodium (Protonix) 40 mg PO ACBREAKFAST [facility] Last Admin: 09/04/19 09:51 Dose: 40 mg Imipramine Hcl 100mg (CapPom) 0 each PO BEDTIME [facility] Last Admin: 09/03/19 20:53 Dose: Not Given Scopolamine (Transderm-Scop) 1.5 mg TRDERM Q72H [facility] Last Admin: 09/03/19 21:35 Dose: 1.5 mg Senna/Docusate Sodium (Senna Plus) 1 tab PO BID PRN PRN Reason: Constipation Sodium Chloride (Saline Flush) 10 ml FLUSH ASDIRECTED PRN PRN Reason: Keep Vein Open Last Admin: 08/31/19 17:43 Dose: 10 ml Tizanidine HCl (Zanaflex) 4 mg PO BID PRN PRN Reason: Muscle Spasm Last Admin: 09/03/19 19:40 Dose: 4 mg Tramadol HCl (Ultram) 50 mg PO Q4H PRN PRN Reason: Pain Last Admin: 09/04/19 08:18 Dose: 50 mg Discontinued Medications Hydromorphone HCl (Dilaudid) 0.5 mg IVPUSH ONETIME ONE Stop: 08/31/19 19:04 Last Admin: 08/31/19 19:16 Dose: 0.5 mg Hydromorphone HCl (Dilaudid) 6 mg PO Q6H PRN PRN Reason: Pain (moderate 4-6) Last Admin: 09/02/19 03:45 Dose: 6 mg Hydromorphone HCl (Dilaudid) 1 mg IVPUSH Q2H PRN PRN Reason: Pain (severe 7-10) Last Admin: 09/02/19 08:53 Dose: 1 mg Hydromorphone HCl (Dilaudid) 2 mg PO Q4H PRN PRN Reason: Pain (moderate 4-6) Last Admin: 09/02/19 16:04 Dose: 2 mg Hydromorphone HCl (Dilaudid) 4 mg PO Q4H PRN PRN Reason: Pain (moderate 4-6) Last Admin: 09/03/19 08:53 Dose: 4 mg Sodium Chloride (Normal Saline) 250 mls @ 250 mls/hr IV ASDIRECTED [facility] Last Admin: 08/31/19 17:43 Dose: 250 mls/hr Magnesium Sulfate 2 gm/ Premix 50 mls @ 12.5 mls/hr IV Q6H [facility] Stop: 09/02/19 19:29 Last Admin: 09/02/19 16:58 Dose: 12.5 mls/hr Sodium Chloride (Normal Saline) 1,000 mls @ 125 mls/hr IV ASDIRECTED [facility] Last Admin: 09/02/19 03:26 Dose: 125 mls/hr Ceftriaxone Sodium 1 gm/ (Sodium Chloride) 50 mls @ 100 mls/hr IV ONETIME ONE Stop: 08/31/19 21:44 Last Admin: 08/31/19 22:09 Dose: 100 mls/hr Lactated Ringer's (Ringers, Lactated) 1,000 mls @ 125 mls/hr IV ASDIRECTED [facility] Imipramine HCl (Imipramine Hcl) 200 mg PO BEDTIME [facility] Imipramine HCl (Imipramine Hcl) 200 mg PO ONETIME ONE Stop: 08/31/19 21:31 Last Admin: 08/31/19 22:48 Dose: Not Given Lorazepam (Ativan) 0.5 mg IVPUSH Q4H PRN PRN Reason: Nausea/Vomiting Last Admin: 09/02/19 18:36 Dose: 0.5 mg Ondansetron HCl (Zofran) 4 mg IVPUSH ONETIME ONE Stop: 08/31/19 17:44 Last Admin: 08/31/19 17:57 Dose: 4 mg - Exam Quality Assessment: DVT Prophylaxis General: Alert, Oriented, Cooperative, Moderate Distress Lungs: Clear to Auscultation, Normal Respiratory Effort Cardiovascular: Regular Rate, Regular Rhythm, No Murmurs GI/Abdominal Exam: Soft, No Organomegaly, Tender. No: Distended, Guarding, Rigid, Rebound Extremities: Non-Tender, No Pedal Edema Sepsis Event Note - Evaluation Sepsis Screening Result: Severe Sepsis Risk - Focused Exam Vital Signs: Vital Signs Temp Temp Pulse Pulse Resp BP Pulse Ox 09/04/19 11:23 96.5 F L 72 18 128/60 09/04/19 10:53 96.3 F L 76 20 115/48 L 99 09/04/19 10:38 96.7 F L 72 20 133/69 09/04/19 10:21 97.3 F 72 18 92/75 98 09/04/19 10:08 97.5 F 68 20 114/54 L 09/04/19 08:04 97.9 F 74 24 H 111/62 100 09/04/19 03:00 98.0 F 81 16 131/66 98 Date Exam was Performed: 09/04/19 Time Exam was Performed: 11:59 - Problem List Review Problem List Initiated/Reviewed/Updated: Yes - My Orders Last 24 Hours: My Active Orders 09/03/19 12:17 traMADol [Ultram] 50 mg PO Q4H PRN 09/04/19 08:09 Transfuse Red Blood Cells [COMM] Urgent 09/04/19 10:44 LORazepam [Ativan] 0.5 mg PO Q4H PRN 09/04/19 10:45 Sodium Chloride 0.9% [Normal Saline] 1,000 ml IV ASDIRECTED 09/05/19 05:00 BASIC METABOLIC PANEL,BMP [CHEM] Timed CBC WITH AUTO DIFF [HEME] Timed MAGNESIUM [CHEM] Timed - Plan Plan:: ASSESSMENT AND PLAN - Acute oliguric kidney injury-resolved -Saline lock IV -Repeat labs in the morning -Symptomatic management of nausea with scopolamine patch Acute cystitis without hematuria, suspected-moderate suggestion of infection based on urinalysis. 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 Incision is healing by secondary intention and appears to be doing well at this time. Increased symptoms of nausea with higher ostomy output, difficile negative -IV fluids Hypomagnesemia-chronic problem with her previous colectomy. -Supplement magnesium Hemolytic anemia-significant problem for her in the past as well as during recent hospitalizations. Specific etiology not apparent based on previous evaluation. Open stable following transfusions. Will follow previous protocol and transfused to a higher level, appointment with hematology is pending -Transfuse 1 unit of red blood cells today -Follow-up hemoglobin in a.m. Maintenance issues - - DVT prophylaxis -SCDs - GI prophylaxis -PPI - Nutrition -regular diet Disposition -anticipate discharge home after the hospital stay Primary care physician -Dr. Lisa Gerber
[2019-09-04] MEDS: Sodium Chloride 0.9% 1,000 ML IV SCH (12:23)
[2019-09-04] MEDS: tiZANidine 4 MG Tab PO PRN (16:03)
[2019-09-04] MEDS: Melatonin 3 MG Tab PO SCH (20:27)
[2019-09-04] MEDS: IMIPRAMINE HCL 100 MG PO SCH (20:27)
[2019-09-04] MEDS: cefTRIAXone 1 GM in Sodium Chloride 0.9% 50 ML IV SCH (20:31)
[2019-09-05] MEDS: Loperamide 2 MG Cap PO SCH ×4 (00:48→23:30)
[2019-09-05] MEDS: traMADol 50 MG Tab PO PRN ×5 (00:58→20:23)
[2019-09-05] MEDS: LORazepam 0.5 MG Tab PO PRN ×3 (03:37→12:41)
[2019-09-05] MEDS: Sodium Chloride 0.9% 1,000 ML IV SCH ×2 (08:17→15:31)
[2019-09-05] MEDS: Pantoprazole 40 MG Tab.CR PO SCH (08:19)
[2019-09-05] MEDS: CALCITRIOL 0.25 MG PO SCH (08:20)
[2019-09-05] MEDS: DULoxetine 30 MG Cap PO SCH (08:20)
[2019-09-05] MEDS: Lactobacillus Rhamnosus GG (Probiotic) Cap PO SCH ×2 (08:20→20:23)
--- NOTE | 2019-09-05 09:46 | PCM.PN ---
- General Info Date of Service: 09/05/19 Subjective Update: Ms. Foley continues to experience some symptoms of nausea as well as wording relatively high output from her ostomy. Oral intake has been poor because of her symptoms of nausea. After third transfusion, hemoglobin is now 8.5. All signs overall have been stable and she has remained afebrile. White blood cell count and platelets remain low. Functional Status: Reports: Ambulating, Urinating. Denies: Tolerating Diet - Review of Systems General: Reports: Weakness. Denies: Fever, Chills Pulmonary: Reports: No Symptoms Cardiovascular: Reports: No Symptoms Gastrointestinal: Reports: Abdominal Pain, Diarrhea, Nausea. Denies: Difficulty Swallowing, Hematochezia, Melena, Vomiting Genitourinary: Reports: No Symptoms - Patient Data Vitals - Most Recent: Last Vital Signs Temp 98.5 F 09/05/19 07:16 Pulse 73 09/05/19 07:16 Resp 16 09/05/19 07:16 BP 147/66 H 09/05/19 07:16 Pulse Ox 99 09/05/19 07:16 Weight - Most Recent: 172 lb 3.2 oz I&O - Last 24 Hours: Intake & Output 09/04/19 09/05/19 09/05/19 22:59 06:59 14:59 Intake Total 1325 600 350 Output Total 2100 700 Balance -775 -100 350 Lab Results Last 24 Hours: Laboratory Results - last 24 hr 09/02/19 09/05/19 09/05/19 Range/Units 06:25 04:15 04:15 WBC 2.9 L (4.5-11.0) K/uL RBC 3.21 L (3.30-5.50) M/uL Hgb 8.5 L (12.0-15.0) g/dL Hct 28.4 L (36.0-48.0) % MCV 89 (80-98) fL MCH 27 (27-31) pg MCHC 30 L (32-36) % Plt Count 84 L (150-400) K/uL Neut % (Auto) 61 (36-66) % Lymph % (Auto) 30 (24-44) % [place] % (Auto) 9 H (2-6) % Eos % (Auto) 0 L (2-4) % Baso % (Auto) 0 (0-1) % Sodium 139 L (140-148) mmol/L Potassium 3.9 (3.6-5.2) mmol/L Chloride 106 (100-108) mmol/L Carbon Dioxide 26 (21-32) mmol/L Anion Gap 10.9 (5.0-14.0) mmol/L BUN 13 (7-18) mg/dL Creatinine 1.3 H (0.6-1.0) mg/dL Est Cr Clr Drug Dosing 45.31 mL/min Estimated GFR (MDRD) 42 L (>60) Glucose 93 (74-106) mg/dL Calcium 7.4 L (8.5-10.1) mg/dL Magnesium 1.2 L (1.8-2.4) mg/dL Blood Type A POSITIVE Gel Antibody Screen Positive A* Antibody Identification Anti-K Crossmatch See Detail Eliud Results Last 24 Hours: Microbiology 09/04/19 08:22 Clostridioides difficile (PCR) - Final Stool / Feces 08/31/19 18:41 Stool Culture - Final Stool / Feces NORMAL ENTERIC CLARY. NO SALMONELLA, SHIGELLA, CAMPYLOBACTER OR E.COLI O157 ISOLATED. Shiga Toxin I - Final NEGATIVE FOR SHIGA TOXIN 1 Shiga Toxin II - Final NEGATIVE FOR SHIGA TOXIN 2 REFERENCE RANGE: NEGATIVE Med Orders - Current: Current Medications Acetaminophen (Tylenol) 650 mg PO Q4H PRN PRN Reason: Pain (Mild 1-3)/fever Last Admin: 09/04/19 20:22 Dose: 650 mg Albuterol (Proventil Neb Soln) 2.5 mg NEB Q4H PRN PRN Reason: Shortness Of Breath/wheezing Calcium Polycarbophil (Fibercon) 1,250 mg PO QID [facility] Diphenoxylate HCl/Atropine (Lomotil 0.025-2.5 Mg) 2 tab PO QID [facility] Duloxetine HCl (Cymbalta) 60 mg PO DAILY [facility] Last Admin: 09/05/19 08:20 Dose: 60 mg Heparin Sodium (Porcine) (Heparin Lock Flush 100 Units/Ml) 500 units FLUSH ASDIRECTED PRN PRN Reason: Keep Vein Open Ceftriaxone Sodium 1 gm/ (Sodium Chloride) 50 mls @ 100 mls/hr IV Q24H [facility] Last Admin: 09/04/19 20:31 Dose: 100 mls/hr Sodium Chloride (Normal Saline) 1,000 mls @ 125 mls/hr IV ASDIRECTED [facility] Last Admin: 09/05/19 08:17 Dose: 125 mls/hr Magnesium Sulfate 2 gm/ Premix 50 mls @ 25 mls/hr IV Q4H [facility] Stop: 09/07/19 07:59 Lactobacillus Rhamnosus (Culturelle) 1 cap PO BID [facility] Last Admin: 09/05/19 08:20 Dose: 1 cap Loperamide HCl (Imodium) 2 mg PO Q8H [facility] Last Admin: 09/05/19 08:19 Dose: 2 mg Lorazepam (Ativan) 0.5 mg PO Q4H PRN PRN Reason: Anxiety Last Admin: 09/05/19 08:16 Dose: 0.5 mg Magnesium Hydroxide (Milk Of Magnesia) 30 ml PO Q12H PRN PRN Reason: Constipation Melatonin (Melatonin) 9 mg PO BEDTIME [facility] Last Admin: 09/04/19 20:27 Dose: 9 mg Calcitriol ( Calcitriol) 0.25 Mg* *Pom 0.25 mg PO DAILY [facility] Last Admin: 09/05/19 08:20 Dose: Not Given Olanzapine (Zyprexa) 5 mg PO Q12H PRN PRN Reason: Anxiety Ondansetron HCl (Zofran Odt) 4 mg PO Q6H PRN PRN Reason: Nausea able to take PO Last Admin: 09/04/19 18:44 Dose: 4 mg Ondansetron HCl (Zofran) 4 mg IV Q6H PRN PRN Reason: Nausea/Vomiting Last Admin: 09/03/19 00:51 Dose: 4 mg Pantoprazole Sodium (Protonix) 40 mg PO ACBREAKFAST [facility] Last Admin: 09/05/19 08:19 Dose: 40 mg Imipramine Hcl 100mg (CapPom) 0 each PO BEDTIME [facility] Last Admin: 09/04/19 20:27 Dose: 1 each Scopolamine (Transderm-Scop) 1.5 mg TRDERM Q72H [facility] Last Admin: 09/03/19 21:35 Dose: 1.5 mg Senna/Docusate Sodium (Senna Plus) 1 tab PO BID PRN PRN Reason: Constipation Sodium Chloride (Saline Flush) 10 ml FLUSH ASDIRECTED PRN PRN Reason: Keep Vein Open Last Admin: 08/31/19 17:43 Dose: 10 ml Tizanidine HCl (Zanaflex) 4 mg PO BID PRN PRN Reason: Muscle Spasm Last Admin: 09/04/19 16:03 Dose: 4 mg Tramadol HCl (Ultram) 50 mg PO Q4H PRN PRN Reason: Pain Last Admin: 09/05/19 06:47 Dose: 50 mg Discontinued Medications Diphenoxylate HCl/Atropine (Lomotil 0.025-2.5 Mg) 1 tab PO TID [facility] Last Admin: 09/04/19 20:31 Dose: 1 tab Hydromorphone HCl (Dilaudid) 0.5 mg IVPUSH ONETIME ONE Stop: 08/31/19 19:04 Last Admin: 08/31/19 19:16 Dose: 0.5 mg Hydromorphone HCl (Dilaudid) 6 mg PO Q6H PRN PRN Reason: Pain (moderate 4-6) Last Admin: 09/02/19 03:45 Dose: 6 mg Hydromorphone HCl (Dilaudid) 1 mg IVPUSH Q2H PRN PRN Reason: Pain (severe 7-10) Last Admin: 09/02/19 08:53 Dose: 1 mg Hydromorphone HCl (Dilaudid) 2 mg PO Q4H PRN PRN Reason: Pain (moderate 4-6) Last Admin: 09/02/19 16:04 Dose: 2 mg Hydromorphone HCl (Dilaudid) 4 mg PO Q4H PRN PRN Reason: Pain (moderate 4-6) Last Admin: 09/03/19 08:53 Dose: 4 mg Sodium Chloride (Normal Saline) 250 mls @ 250 mls/hr IV ASDIRECTED [facility] Last Admin: 08/31/19 17:43 Dose: 250 mls/hr Magnesium Sulfate 2 gm/ Premix 50 mls @ 12.5 mls/hr IV Q6H [facility] Stop: 09/02/19 19:29 Last Admin: 09/02/19 16:58 Dose: 12.5 mls/hr Sodium Chloride (Normal Saline) 1,000 mls @ 125 mls/hr IV ASDIRECTED [facility] Last Admin: 09/02/19 03:26 Dose: 125 mls/hr Ceftriaxone Sodium 1 gm/ (Sodium Chloride) 50 mls @ 100 mls/hr IV ONETIME ONE Stop: 08/31/19 21:44 Last Admin: 08/31/19 22:09 Dose: 100 mls/hr Lactated Ringer's (Ringers, Lactated) 1,000 mls @ 125 mls/hr IV ASDIRECTED [facility] Imipramine HCl (Imipramine Hcl) 200 mg PO BEDTIME [facility] Imipramine HCl (Imipramine Hcl) 200 mg PO ONETIME ONE Stop: 08/31/19 21:31 Last Admin: 08/31/19 22:48 Dose: Not Given Lorazepam (Ativan) 0.5 mg IVPUSH Q4H PRN PRN Reason: Nausea/Vomiting Last Admin: 09/02/19 18:36 Dose: 0.5 mg Ondansetron HCl (Zofran) 4 mg IVPUSH ONETIME ONE Stop: 08/31/19 17:44 Last Admin: 08/31/19 17:57 Dose: 4 mg - Exam Quality Assessment: DVT Prophylaxis General: Alert, Oriented, Cooperative, Mild Distress Lungs: Clear to Auscultation, Normal Respiratory Effort Cardiovascular: Regular Rate, Regular Rhythm, No Murmurs GI/Abdominal Exam: Soft, No Organomegaly, Tender. No: Distended, Guarding, Rigid, Rebound Extremities: Non-Tender, No Pedal Edema Skin: Warm, Dry Sepsis Event Note - Evaluation Sepsis Screening Result: Severe Sepsis Risk - Focused Exam Vital Signs: Vital Signs Temp Pulse Resp BP Pulse Ox 09/05/19 07:16 98.5 F 73 16 147/66 H 99 09/05/19 03:38 97.8 F 66 16 110/49 L 98 09/04/19 22:32 97.5 F 73 18 93/35 L 98 Date Exam was Performed: 09/05/19 Time Exam was Performed: 09:42 - Problem List Review Problem List Initiated/Reviewed/Updated: Yes - My Orders Last 24 Hours: My Active Orders 09/04/19 10:44 LORazepam [Ativan] 0.5 mg PO Q4H PRN 09/04/19 10:45 Sodium Chloride 0.9% [Normal Saline] 1,000 ml IV ASDIRECTED - Plan Plan:: ASSESSMENT AND PLAN - Acute oliguric kidney injury-resolved -Saline lock IV -Repeat labs in the morning -Symptomatic management of nausea with scopolamine patch Acute cystitis without hematuria, suspected-moderate suggestion of infection based on urinalysis. 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 Incision is healing by secondary intention and appears to be doing well at this time. Increased symptoms of nausea with higher ostomy output, difficile negative -IV fluids -Monitor and record ostomy output Hypomagnesemia-chronic problem with her previous colectomy. -Supplement magnesium Hemolytic anemia-significant problem for her in the past as well as during recent hospitalizations. Specific etiology not apparent based on previous evaluation. Hemoglobin today 8.5 following transfusion of 3 units of red blood cells. -Follow-up hemoglobin in a.m. Maintenance issues - - DVT prophylaxis -SCDs - GI prophylaxis -PPI - Nutrition -regular diet Disposition -anticipate discharge home after the hospital stay Primary care physician -Dr. Lisa Gerber
[2019-09-05] MEDS: Atropine/Diphenoxylate 0.025-2.5 MG Tab PO SCH ×4 (10:16→23:29)
[2019-09-05] MEDS: Calcium Polycarbophil 625 MG Tab PO SCH ×3 (10:16→23:29)
[2019-09-05] MEDS: Magnesium Sulfate/Water 2 GM in Premix Bag 1 BAG IV SCH ×4 (10:16→23:30)
[2019-09-05] MEDS: tiZANidine 4 MG Tab PO PRN ×2 (10:23→15:43)
[2019-09-05] MEDS: Acetaminophen 325 MG Tab PO PRN (12:40)
--- NOTE | 2019-09-05 13:18 | PN ---
DATE OF SERVICE: 09/05/2019 SUBJECTIVE: Aline's vital signs have been stable. Labs this morning; hemoglobin 8.5 and magnesium was 1.2. The creatinine is stable at 1.3. Oral intake 1800. Ostomy output 2300. Urine output 1150. Starting the Lomotil and Imodium 24 hours did slightly decrease her output out of the ostomy. C diff was obtained and negative. REVIEW OF SYSTEMS: Remainder of review of systems negative for any pertinent positives and negatives. OBJECTIVE: GENERAL: Aline Foley is a 58-year-old female, alert and orientated, weepy this morning. VITAL SIGNS: TPR at 0716; 98.5, 73, 16, and blood pressure 147/66. HEENT: Negative. NECK: Supple. HEART: Regular rate and rhythm. LUNGS: Clear. ABDOMEN: Dressing has been observed being changed by patient. Open incision healing well. EXTREMITIES: Without peripheral edema. ASSESSMENT: 1. Diarrhea. Large output from ostomy. 2. Open abdominal incision. 3. Acute kidney injury. 4. Severe dehydration, resolved. 5. Nausea, resolved. 6. History of left nephrectomy. 7. Crohn's disease. 8. Hemolytic anemia. 3 units of RBCs transfused; 09/01, 09/02, and 09/03. PLAN: 1. Continue imodium 2 mg q.8 hours scheduled. Increase Lomotil 0.025/2.5 mg 2 tabs oral q.i.d. scheduled. 2. Dietary consult. 3. Magnesium 2 g IV q.4 hours x72 hours. 4. Check CMP, CBC, and phos in the a.m. 5. FiberCon tablets q.i.d. 6. Dietary consult in regard to increasing fiber in diet. Aline Landeros PA-C /[id number]
[2019-09-05] MEDS: Melatonin 3 MG Tab PO SCH (20:23)
[2019-09-05] MEDS: IMIPRAMINE HCL 100 MG PO SCH (20:24)
[2019-09-05] MEDS: cefTRIAXone 1 GM in Sodium Chloride 0.9% 50 ML IV SCH (20:26)
[2019-09-06] MEDS: Magnesium Sulfate/Water 2 GM in Premix Bag 1 BAG IV SCH ×6 (03:05→22:02)
[2019-09-06] MEDS: Sodium Chloride 0.9% 1,000 ML IV SCH ×2 (03:09→18:20)
[2019-09-06] MEDS: tiZANidine 4 MG Tab PO PRN ×2 (03:18→12:12)
[2019-09-06] MEDS: traMADol 50 MG Tab PO PRN ×5 (03:18→20:32)
[2019-09-06] MEDS: Atropine/Diphenoxylate 0.025-2.5 MG Tab PO SCH ×4 (05:51→22:05)
[2019-09-06] MEDS: Calcium Polycarbophil 625 MG Tab PO SCH ×4 (05:51→22:04)
[2019-09-06] MEDS: LORazepam 0.5 MG Tab PO PRN ×2 (07:36→12:12)
[2019-09-06] MEDS: Loperamide 2 MG Cap PO SCH ×4 (07:38→22:05)
[2019-09-06] MEDS: Pantoprazole 40 MG Tab.CR PO SCH ×2 (07:38→16:24)
[2019-09-06] MEDS ORDERED: Amylase/Lipase/Protease 12,000 Unit Cap.CR PO SCH (08:00)
--- NOTE | 2019-09-06 09:19 | PCM.PN ---
- General Info Date of Service: 09/06/19 Subjective Update: Ms. Foley continues to experience symptoms of nausea, output from ostomy has improved but still remains higher than desired. Vital signs have remained stable and she has been afebrile. Hemoglobin level this morning 8.1 which does represent a drop from yesterday. Functional Status: Reports: Ambulating, Urinating. Denies: Tolerating Diet - Review of Systems General: Reports: Weakness. Denies: Fever, Chills, Appetite Pulmonary: Reports: No Symptoms Cardiovascular: Reports: No Symptoms Gastrointestinal: Reports: Abdominal Pain, Nausea. Denies: Difficulty Swallowing, Vomiting - Patient Data Vitals - Most Recent: Last Vital Signs Temp 97.1 F 09/06/19 07:41 Pulse 68 09/06/19 07:41 Resp 18 09/06/19 07:41 BP 126/48 L 09/06/19 07:41 Pulse Ox 99 09/06/19 07:41 Weight - Most Recent: 172 lb 3.2 oz I&O - Last 24 Hours: Intake & Output 09/05/19 09/06/19 09/06/19 22:59 06:59 14:59 Intake Total 1932 1453 240 Output Total 1725 1200 550 Balance 207 253 -310 Lab Results Last 24 Hours: Laboratory Results - last 24 hr 09/02/19 09/06/19 09/06/19 Range/Units 06:25 04:30 04:30 WBC 2.6 L (4.5-11.0) K/uL RBC 3.03 L (3.30-5.50) M/uL Hgb 8.1 L (12.0-15.0) g/dL Hct 26.8 L (36.0-48.0) % MCV 88 (80-98) fL MCH 27 (27-31) pg MCHC 30 L (32-36) % Plt Count 96 L (150-400) K/uL Sodium 134 L (140-148) mmol/L Potassium 3.7 (3.6-5.2) mmol/L Chloride 107 (100-108) mmol/L Carbon Dioxide 25 (21-32) mmol/L Anion Gap 5.7 (5.0-14.0) mmol/L BUN 8 (7-18) mg/dL Creatinine 1.1 H (0.6-1.0) mg/dL Est Cr Clr Drug Dosing 53.55 mL/min Estimated GFR (MDRD) 51 L (>60) Glucose 97 (74-106) mg/dL Calcium 7.2 L (8.5-10.1) mg/dL Phosphorus 2.3 L (2.5-4.9) mg/dL Total Bilirubin 0.8 D (0.2-1.0) mg/dL AST 24 (15-37) U/L ALT 18 (12-78) U/L Alkaline Phosphatase 85 (46-116) U/L Total Protein 6.1 L (6.4-8.2) g/dL Albumin 2.1 L (3.4-5.0) g/dL Globulin 4.0 H (2.3-3.5) g/dL Albumin/Globulin Ratio 0.5 L (1.2-2.2) Crossmatch See Detail Med Orders - Current: Current Medications Acetaminophen (Tylenol) 650 mg PO Q4H PRN PRN Reason: Pain (Mild 1-3)/fever Last Admin: 09/05/19 12:40 Dose: 650 mg Albuterol (Proventil Neb Soln) 2.5 mg NEB Q4H PRN PRN Reason: Shortness Of Breath/wheezing Lipase/Protease/Amylase (Cremazin Dr 12,000 Units) 24,000 cap PO TIDMEALS [facility] Calcium Polycarbophil (Fibercon) 1,250 mg PO QID [facility] Last Admin: 09/06/19 05:51 Dose: 1,250 mg Diphenoxylate HCl/Atropine (Lomotil 0.025-2.5 Mg) 2 tab PO QID [facility] Last Admin: 09/06/19 05:51 Dose: 2 tab Duloxetine HCl (Cymbalta) 60 mg PO DAILY [facility] Last Admin: 09/05/19 08:20 Dose: 60 mg Heparin Sodium (Porcine) (Heparin Lock Flush 100 Units/Ml) 500 units FLUSH ASDIRECTED PRN PRN Reason: Keep Vein Open Ceftriaxone Sodium 1 gm/ (Sodium Chloride) 50 mls @ 100 mls/hr IV Q24H [facility] Last Admin: 09/05/19 20:26 Dose: 100 mls/hr Magnesium Sulfate 2 gm/ Premix 50 mls @ 25 mls/hr IV Q4H [facility] Stop: 05/30/20 07:59 Last Admin: 09/06/19 05:52 Dose: 25 mls/hr Albumin Human (Albumin 25%) 25 gm in 100 mls @ 25 mls/hr IV DAILY [facility] Stop: 09/09/19 12:59 Albumin Human (Albumin 25%) 25 gm in 100 mls @ 25 mls/hr IV Q24H [facility] Stop: 09/09/19 17:59 Sodium Chloride (Normal Saline) 1,000 mls @ 75 mls/hr IV ASDIRECTED [facility] Lactobacillus Rhamnosus (Culturelle) 1 cap PO BID [facility] Last Admin: 09/05/19 20:23 Dose: 1 cap Loperamide HCl (Imodium) 4 mg PO Q6H [facility] Lorazepam (Ativan) 0.5 mg PO Q4H PRN PRN Reason: Anxiety Last Admin: 09/06/19 07:36 Dose: 0.5 mg Magnesium Hydroxide (Milk Of Magnesia) 30 ml PO Q12H PRN PRN Reason: Constipation Melatonin (Melatonin) 9 mg PO BEDTIME [facility] Last Admin: 09/05/19 20:23 Dose: 9 mg Calcitriol ( Calcitriol) 0.25 Mg* *Pom 0.25 mg PO DAILY [facility] Last Admin: 09/05/19 08:20 Dose: Not Given Olanzapine (Zyprexa) 5 mg PO Q12H PRN PRN Reason: Anxiety Ondansetron HCl (Zofran Odt) 4 mg PO Q6H PRN PRN Reason: Nausea able to take PO Last Admin: 09/04/19 18:44 Dose: 4 mg Ondansetron HCl (Zofran) 4 mg IV Q6H PRN PRN Reason: Nausea/Vomiting Last Admin: 09/03/19 00:51 Dose: 4 mg Pantoprazole Sodium (Protonix) 40 mg PO BIDAC [facility] Imipramine Hcl 100mg (CapPom) 0 each PO BEDTIME [facility] Last Admin: 09/05/19 20:24 Dose: 1 each Scopolamine (Transderm-Scop) 1.5 mg TRDERM Q72H [facility] Last Admin: 09/03/19 21:35 Dose: 1.5 mg Senna/Docusate Sodium (Senna Plus) 1 tab PO BID PRN PRN Reason: Constipation Sodium Chloride (Saline Flush) 10 ml FLUSH ASDIRECTED PRN PRN Reason: Keep Vein Open Last Admin: 08/31/19 17:43 Dose: 10 ml Tizanidine HCl (Zanaflex) 4 mg PO BID PRN PRN Reason: Muscle Spasm Last Admin: 09/06/19 03:18 Dose: 4 mg Tramadol HCl (Ultram) 50 mg PO Q4H PRN PRN Reason: Pain Last Admin: 09/06/19 07:36 Dose: 50 mg Discontinued Medications Diphenoxylate HCl/Atropine (Lomotil 0.025-2.5 Mg) 1 tab PO TID [facility] Last Admin: 09/05/19 14:01 Dose: Not Given Hydromorphone HCl (Dilaudid) 0.5 mg IVPUSH ONETIME ONE Stop: 08/31/19 19:04 Last Admin: 08/31/19 19:16 Dose: 0.5 mg Hydromorphone HCl (Dilaudid) 6 mg PO Q6H PRN PRN Reason: Pain (moderate 4-6) Last Admin: 09/02/19 03:45 Dose: 6 mg Hydromorphone HCl (Dilaudid) 1 mg IVPUSH Q2H PRN PRN Reason: Pain (severe 7-10) Last Admin: 09/02/19 08:53 Dose: 1 mg Hydromorphone HCl (Dilaudid) 2 mg PO Q4H PRN PRN Reason: Pain (moderate 4-6) Last Admin: 09/02/19 16:04 Dose: 2 mg Hydromorphone HCl (Dilaudid) 4 mg PO Q4H PRN PRN Reason: Pain (moderate 4-6) Last Admin: 09/03/19 08:53 Dose: 4 mg Sodium Chloride (Normal Saline) 250 mls @ 250 mls/hr IV ASDIRECTED [facility] Last Admin: 08/31/19 17:43 Dose: 250 mls/hr Magnesium Sulfate 2 gm/ Premix 50 mls @ 12.5 mls/hr IV Q6H [facility] Stop: 09/02/19 19:29 Last Admin: 09/02/19 16:58 Dose: 12.5 mls/hr Sodium Chloride (Normal Saline) 1,000 mls @ 125 mls/hr IV ASDIRECTED [facility] Last Admin: 09/02/19 03:26 Dose: 125 mls/hr Ceftriaxone Sodium 1 gm/ (Sodium Chloride) 50 mls @ 100 mls/hr IV ONETIME ONE Stop: 08/31/19 21:44 Last Admin: 08/31/19 22:09 Dose: 100 mls/hr Lactated Ringer's (Ringers, Lactated) 1,000 mls @ 125 mls/hr IV ASDIRECTED [facility] Sodium Chloride (Normal Saline) 1,000 mls @ 125 mls/hr IV ASDIRECTED [facility] Last Admin: 09/06/19 03:09 Dose: 125 mls/hr Imipramine HCl (Imipramine Hcl) 200 mg PO BEDTIME [facility] Imipramine HCl (Imipramine Hcl) 200 mg PO ONETIME ONE Stop: 08/31/19 21:31 Last Admin: 08/31/19 22:48 Dose: Not Given Loperamide HCl (Imodium) 2 mg PO Q8H [facility] Last Admin: 09/06/19 07:38 Dose: 2 mg Lorazepam (Ativan) 0.5 mg IVPUSH Q4H PRN PRN Reason: Nausea/Vomiting Last Admin: 09/02/19 18:36 Dose: 0.5 mg Ondansetron HCl (Zofran) 4 mg IVPUSH ONETIME ONE Stop: 08/31/19 17:44 Last Admin: 08/31/19 17:57 Dose: 4 mg Pantoprazole Sodium (Protonix) 40 mg PO ACBREAKFAST [facility] Last Admin: 09/06/19 07:38 Dose: 40 mg - Exam Quality Assessment: DVT Prophylaxis General: Alert, Oriented, Cooperative, Moderate Distress Lungs: Clear to Auscultation, Normal Respiratory Effort Cardiovascular: Regular Rate, Regular Rhythm GI/Abdominal Exam: Soft, No Organomegaly, Tender. No: Distended, Guarding, Rigid, Rebound Extremities: Non-Tender, No Pedal Edema Sepsis Event Note - Evaluation Sepsis Screening Result: No Definite Risk - Focused Exam Vital Signs: Vital Signs Temp Pulse Resp BP Pulse Ox 09/06/19 07:41 97.1 F 68 18 126/48 L 99 09/06/19 03:11 96.8 F L 74 16 131/53 L 100 09/05/19 23:00 97 F 65 16 109/48 L 98 Date Exam was Performed: 09/06/19 Time Exam was Performed: 09:15 - Problem List Review Problem List Initiated/Reviewed/Updated: Yes - My Orders Last 24 Hours: My Active Orders 09/06/19 09:15 Sodium Chloride 0.9% @ 75 MLS/HR(1000ml) Sodium Chloride 0.9% [Normal Saline] 1 ,000 ml IV ASDIRECTED 09/07/19 05:00 CBC WITH AUTO DIFF [HEME] Timed COMPREHENSIVE METABOLIC PN,CMP [CHEM] Timed - Plan Plan:: ASSESSMENT AND PLAN Acute oliguric kidney injury-resolved -Repeat labs in the morning Acute cystitis without hematuria, suspected-moderate suggestion of infection based on urinalysis. 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 Incision is healing by secondary intention and appears to be doing well at this time. Increased symptoms of nausea with higher ostomy output, difficile negative -Management per Dr. [place] -IV fluids -Monitor and record ostomy output Hypomagnesemia-chronic problem with her previous colectomy. -Supplement magnesium Hemolytic anemia-significant problem for her in the past as well as during recent hospitalizations. Specific etiology not apparent based on previous evaluation. Hemoglobin today 8.1 following transfusion of 3 units of red blood cells. -Follow-up hemoglobin in a.m. Maintenance issues - - DVT prophylaxis -SCDs - GI prophylaxis -PPI - Nutrition -regular diet Disposition -anticipate discharge home after the hospital stay Primary care physician -Dr. Lisa Gerber
[2019-09-06] MEDS: Lactobacillus Rhamnosus GG (Probiotic) Cap PO SCH ×2 (09:52→20:31)
[2019-09-06] MEDS: DULoxetine 30 MG Cap PO SCH (09:52)
[2019-09-06] MEDS: CALCITRIOL 0.25 MG PO SCH (09:54)
[2019-09-06] MEDS: Amylase/Lipase/Protease 12,000 Unit Cap.CR PO SCH ×3 (09:55→16:24)
[2019-09-06] MEDS: Ondansetron 4 MG Tab.DIS PO PRN (10:50)
--- NOTE | 2019-09-06 12:00 | PN ---
DATE OF SERVICE: 09/06/2019 SUBJECTIVE: Aline has had in oral intake 1330 and ostomy output 2100. Urine output 2125. She had 100% of breakfast, 40% of lunch, and 50% of dinner. Afebrile. Vital signs stable. Weight is stable. LABORATORY DATA: Hemoglobin 8.1, platelets 96,000. Sodium 134, potassium 3.7, creatinine 1.1, total protein 6.1, albumin is 2.1. OBJECTIVE: GENERAL: Aline Foley is a 58-year-old female. Color pale. VITAL SIGNS: TPR at 0741, 97.1; 68; 18; blood pressure 126/48. HEENT: Negative. NECK: Supple. HEART: Regular rate and rhythm. LUNGS: Clear. ABDOMEN: Dressings dry and intact. Abdominal binder is on. EXTREMITIES: Without peripheral edema. ASSESSMENT: 1. Diarrhea, large output from ostomy. 2. Open abdominal incision. 3. Acute kidney injury. 4. Severe dehydration, resolved. 5. Nausea, resolved. 6. Hemolytic anemia. 7. History of left nephrectomy. 8. Crohn's disease. PLAN: 1. Type and cross 3 units of packed red blood cells. The blood will be here in [facility]. 2. Albumin 50 g IV x4 days. 3. Accurate intake and output. 4. Protein supplements q.i.d. 5. 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 6. Increase Protonix 40 mg to b.i.d. 7. Add Creon 24,000 International Units 3 times a day with each meal. 8. Increase Imodium to 4 mg every 6 hours scheduled. 9. Encourage the patient to increase oral intake. 10.We will evaluate p.r.n. or in a.m. Aline Landeros PA-C /[id number]
[2019-09-06] MEDS: Acetaminophen 325 MG Tab PO PRN ×2 (12:12→20:31)
[2019-09-06] MEDS: OLANZapine 5 MG Tab PO PRN (19:30)
[2019-09-06] MEDS: Melatonin 3 MG Tab PO SCH (20:31)
[2019-09-06] MEDS: IMIPRAMINE HCL 100 MG PO SCH (20:33)
[2019-09-06] MEDS: Scopolamine 1.5 MG Transdermal Patch TRDERM SCH (20:41)
[2019-09-07] MEDS: tiZANidine 4 MG Tab PO PRN ×3 (00:16→21:32)
[2019-09-07] MEDS: Magnesium Sulfate/Water 2 GM in Premix Bag 1 BAG IV SCH ×2 (02:13→05:52)
[2019-09-07] MEDS: Acetaminophen 325 MG Tab PO PRN ×5 (04:13→23:30)
[2019-09-07] MEDS: traMADol 50 MG Tab PO PRN ×5 (04:13→23:31)
[2019-09-07] MEDS: Loperamide 2 MG Cap PO SCH ×4 (04:13→21:32)
[2019-09-07] MEDS: Atropine/Diphenoxylate 0.025-2.5 MG Tab PO SCH ×4 (05:50→21:32)
[2019-09-07] MEDS: Calcium Polycarbophil 625 MG Tab PO SCH ×4 (05:50→21:31)
[2019-09-07] MEDS: Sodium Chloride 0.9% 1,000 ML IV SCH (07:36)
[2019-09-07] MEDS: Pantoprazole 40 MG Tab.CR PO SCH ×2 (08:51→15:36)
[2019-09-07] MEDS: Amylase/Lipase/Protease 12,000 Unit Cap.CR PO SCH ×3 (08:51→17:18)
[2019-09-07] MEDS: CALCITRIOL 0.25 MG PO SCH (08:53)
[2019-09-07] MEDS: Lactobacillus Rhamnosus GG (Probiotic) Cap PO SCH ×2 (08:53→20:29)
[2019-09-07] MEDS: DULoxetine 30 MG Cap PO SCH (08:53)
[2019-09-07] MEDS: OLANZapine 5 MG Tab PO PRN ×2 (09:29→21:32)
--- NOTE | 2019-09-07 10:36 | PCM.PN ---
- General Info Date of Service: 09/07/19 Subjective Update: Ms. Foley is been stable since yesterday, hemoglobin is now down to 7.3. Nausea and ostomy output seem to be improved, she reports better appetite. Vital signs have been good and she has remained afebrile. Functional Status: Reports: Ambulating, Urinating - Review of Systems General: Denies: Fever, Chills Pulmonary: Reports: No Symptoms Cardiovascular: Reports: No Symptoms Gastrointestinal: Reports: Abdominal Pain, Nausea. Denies: Decreased Appetite, Diarrhea, Difficulty Swallowing, Vomiting Genitourinary: Reports: No Symptoms - Patient Data Vitals - Most Recent: Last Vital Signs Temp 97 F 09/07/19 07:22 Pulse 66 09/07/19 07:22 Resp 16 09/07/19 07:22 BP 108/49 L 09/07/19 07:22 Pulse Ox 98 09/07/19 07:22 Weight - Most Recent: 175 lb 3.2 oz I&O - Last 24 Hours: Intake & Output 09/06/19 09/07/19 09/07/19 22:59 06:59 14:59 Intake Total 2173 1095 100 Output Total 2075 1825 Balance 98 -730 100 Lab Results Last 24 Hours: Laboratory Results - last 24 hr 09/06/19 09/07/19 09/07/19 Range/Units 05:45 03:50 03:50 WBC 2.4 L (4.5-11.0) K/uL RBC 2.73 L (3.30-5.50) M/uL Hgb 7.3 L (12.0-15.0) g/dL Hct 24.5 L (36.0-48.0) % MCV 90 (80-98) fL MCH 27 (27-31) pg MCHC 30 L (32-36) % Plt Count 99 L (150-400) K/uL Neut % (Auto) 55 (36-66) % Lymph % (Auto) 35 (24-44) % [place] % (Auto) 10 H (2-6) % Eos % (Auto) 0 L (2-4) % Baso % (Auto) 0 (0-1) % Sodium 140 (140-148) mmol/L Potassium 4.1 (3.6-5.2) mmol/L Chloride 109 H (100-108) mmol/L Carbon Dioxide 26 (21-32) mmol/L Anion Gap 9.1 (5.0-14.0) mmol/L BUN 9 (7-18) mg/dL Creatinine 1.0 (0.6-1.0) mg/dL Est Cr Clr Drug Dosing 58.91 mL/min Estimated GFR (MDRD) 57 L (>60) Glucose 92 (74-106) mg/dL Calcium 7.6 L (8.5-10.1) mg/dL Total Bilirubin 1.0 (0.2-1.0) mg/dL AST 23 (15-37) U/L ALT 17 (12-78) U/L Alkaline Phosphatase 74 (46-116) U/L Total Protein 6.2 L (6.4-8.2) g/dL Albumin 2.7 L (3.4-5.0) g/dL Globulin 3.5 (2.3-3.5) g/dL Albumin/Globulin Ratio 0.8 L (1.2-2.2) Blood Type A POSITIVE Gel Antibody Screen Positive A* Antibody Identification Anti-K Crossmatch See Detail Med Orders - Current: Current Medications Acetaminophen (Tylenol) 650 mg PO Q4H PRN PRN Reason: Pain (Mild 1-3)/fever Last Admin: 09/07/19 09:29 Dose: 650 mg Albuterol (Proventil Neb Soln) 2.5 mg NEB Q4H PRN PRN Reason: Shortness Of Breath/wheezing Lipase/Protease/Amylase (Cremazin Dr 12,000 Units) 2 cap PO TIDMEALS [facility] Last Admin: 09/07/19 08:51 Dose: 2 cap Calcium Polycarbophil (Fibercon) 1,250 mg PO QID [facility] Last Admin: 09/07/19 09:00 Dose: 1,250 mg Diphenoxylate HCl/Atropine (Lomotil 0.025-2.5 Mg) 2 tab PO QID [facility] Last Admin: 09/07/19 09:05 Dose: 2 tab Duloxetine HCl (Cymbalta) 60 mg PO DAILY [facility] Last Admin: 09/07/19 08:53 Dose: 60 mg Heparin Sodium (Porcine) (Heparin Lock Flush 100 Units/Ml) 500 units FLUSH ASDIRECTED PRN PRN Reason: Keep Vein Open Albumin Human (Albumin 25%) 25 gm in 100 mls @ 25 mls/hr IV DAILY [facility] Stop: 09/09/19 12:59 Last Admin: 09/07/19 08:52 Dose: 25 mls/hr Albumin Human (Albumin 25%) 25 gm in 100 mls @ 25 mls/hr IV Q24H [facility] Stop: 09/09/19 17:59 Last Admin: 09/06/19 14:09 Dose: 25 mls/hr Sodium Chloride (Normal Saline) 1,000 mls @ 75 mls/hr IV ASDIRECTED [facility] Last Admin: 09/07/19 07:36 Dose: 75 mls/hr Lactobacillus Rhamnosus (Culturelle) 1 cap PO BID [facility] Last Admin: 09/07/19 08:53 Dose: 1 cap Loperamide HCl (Imodium) 4 mg PO Q6H [facility] Last Admin: 09/07/19 09:01 Dose: 4 mg Lorazepam (Ativan) 0.5 mg PO Q4H PRN PRN Reason: Anxiety Last Admin: 09/06/19 12:12 Dose: 0.5 mg Magnesium Hydroxide (Milk Of Magnesia) 30 ml PO Q12H PRN PRN Reason: Constipation Melatonin (Melatonin) 9 mg PO BEDTIME [facility] Last Admin: 09/06/19 20:31 Dose: 9 mg Calcitriol ( Calcitriol) 0.25 Mg* *Pom 0.25 mg PO DAILY [facility] Last Admin: 09/07/19 08:53 Dose: Not Given Olanzapine (Zyprexa) 5 mg PO Q12H PRN PRN Reason: Anxiety Last Admin: 09/07/19 09:29 Dose: 5 mg Ondansetron HCl (Zofran Odt) 4 mg PO Q6H PRN PRN Reason: Nausea able to take PO Last Admin: 09/06/19 10:50 Dose: 4 mg Ondansetron HCl (Zofran) 4 mg IV Q6H PRN PRN Reason: Nausea/Vomiting Last Admin: 09/03/19 00:51 Dose: 4 mg Pantoprazole Sodium (Protonix) 40 mg PO BIDAC [facility] Last Admin: 09/07/19 08:51 Dose: 40 mg Imipramine Hcl 100mg (CapPom) 0 each PO BEDTIME [facility] Last Admin: 09/06/19 20:33 Dose: 1 each Scopolamine (Transderm-Scop) 1.5 mg TRDERM Q72H [facility] Last Admin: 09/06/19 20:41 Dose: 1.5 mg Senna/Docusate Sodium (Senna Plus) 1 tab PO BID PRN PRN Reason: Constipation Sodium Chloride (Saline Flush) 10 ml FLUSH ASDIRECTED PRN PRN Reason: Keep Vein Open Last Admin: 08/31/19 17:43 Dose: 10 ml Tizanidine HCl (Zanaflex) 4 mg PO BID PRN PRN Reason: Muscle Spasm Last Admin: 09/07/19 09:30 Dose: 4 mg Tramadol HCl (Ultram) 50 mg PO Q4H PRN PRN Reason: Pain Last Admin: 09/07/19 09:30 Dose: 50 mg Discontinued Medications Diphenoxylate HCl/Atropine (Lomotil 0.025-2.5 Mg) 1 tab PO TID [facility] Last Admin: 09/05/19 14:01 Dose: Not Given Hydromorphone HCl (Dilaudid) 0.5 mg IVPUSH ONETIME ONE Stop: 08/31/19 19:04 Last Admin: 08/31/19 19:16 Dose: 0.5 mg Hydromorphone HCl (Dilaudid) 6 mg PO Q6H PRN PRN Reason: Pain (moderate 4-6) Last Admin: 09/02/19 03:45 Dose: 6 mg Hydromorphone HCl (Dilaudid) 1 mg IVPUSH Q2H PRN PRN Reason: Pain (severe 7-10) Last Admin: 09/02/19 08:53 Dose: 1 mg Hydromorphone HCl (Dilaudid) 2 mg PO Q4H PRN PRN Reason: Pain (moderate 4-6) Last Admin: 09/02/19 16:04 Dose: 2 mg Hydromorphone HCl (Dilaudid) 4 mg PO Q4H PRN PRN Reason: Pain (moderate 4-6) Last Admin: 09/03/19 08:53 Dose: 4 mg Sodium Chloride (Normal Saline) 250 mls @ 250 mls/hr IV ASDIRECTED [facility] Last Admin: 08/31/19 17:43 Dose: 250 mls/hr Ceftriaxone Sodium 1 gm/ (Sodium Chloride) 50 mls @ 100 mls/hr IV Q24H [facility] Last Admin: 09/05/19 20:26 Dose: 100 mls/hr Magnesium Sulfate 2 gm/ Premix 50 mls @ 12.5 mls/hr IV Q6H [facility] Stop: 09/02/19 19:29 Last Admin: 09/02/19 16:58 Dose: 12.5 mls/hr Sodium Chloride (Normal Saline) 1,000 mls @ 125 mls/hr IV ASDIRECTED [facility] Last Admin: 09/02/19 03:26 Dose: 125 mls/hr Ceftriaxone Sodium 1 gm/ (Sodium Chloride) 50 mls @ 100 mls/hr IV ONETIME ONE Stop: 08/31/19 21:44 Last Admin: 08/31/19 22:09 Dose: 100 mls/hr Lactated Ringer's (Ringers, Lactated) 1,000 mls @ 125 mls/hr IV ASDIRECTED [facility] Sodium Chloride (Normal Saline) 1,000 mls @ 125 mls/hr IV ASDIRECTED [facility] Last Admin: 09/06/19 03:09 Dose: 125 mls/hr Magnesium Sulfate 2 gm/ Premix 50 mls @ 25 mls/hr IV Q4H [facility] Stop: 09/07/19 07:59 Last Admin: 09/07/19 05:52 Dose: 25 mls/hr Imipramine HCl (Imipramine Hcl) 200 mg PO BEDTIME [facility] Imipramine HCl (Imipramine Hcl) 200 mg PO ONETIME ONE Stop: 08/31/19 21:31 Last Admin: 08/31/19 22:48 Dose: Not Given Loperamide HCl (Imodium) 2 mg PO Q8H [facility] Last Admin: 09/06/19 07:38 Dose: 2 mg Lorazepam (Ativan) 0.5 mg IVPUSH Q4H PRN PRN Reason: Nausea/Vomiting Last Admin: 09/02/19 18:36 Dose: 0.5 mg Ondansetron HCl (Zofran) 4 mg IVPUSH ONETIME ONE Stop: 08/31/19 17:44 Last Admin: 08/31/19 17:57 Dose: 4 mg Pantoprazole Sodium (Protonix) 40 mg PO ACBREAKFAST [facility] Last Admin: 09/06/19 07:38 Dose: 40 mg - Exam General: Alert, Oriented, Cooperative, Mild Distress Lungs: Clear to Auscultation, Normal Respiratory Effort Cardiovascular: Regular Rate, Regular Rhythm, No Murmurs GI/Abdominal Exam: Soft, Non-Tender, No Organomegaly, No Distention Extremities: Non-Tender, No Pedal Edema Sepsis Event Note - Evaluation Sepsis Screening Result: No Definite Risk - Focused Exam Vital Signs: Vital Signs Temp Pulse Resp BP BP Pulse Ox 09/07/19 07:22 97 F 66 16 108/49 L 98 09/07/19 04:16 97.3 F 66 16 103/39 L 97 09/06/19 22:36 98.2 F 71 14 102/38 L 95 Date Exam was Performed: 09/07/19 Time Exam was Performed: 10:33 - Problem List Review Problem List Initiated/Reviewed/Updated: Yes - Plan Plan:: ASSESSMENT AND PLAN Acute oliguric kidney injury-resolved -Repeat labs in the morning Acute cystitis without hematuria-resolved -Discontinue ceftriaxone Crohn's disease with multiple intestinal abnormalities-recent significant abdominal surgery to redo the ileostomy with multiple postoperative complications including 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 Incision is healing by secondary intention and appears to be doing well at this time. Nausea and ostomy output improved over the last 24 hours -Management per Dr. Reno -Saline lock IV -Monitor and record ostomy output Hypomagnesemia-chronic problem with her previous colectomy. -Supplement magnesium Hemolytic anemia-significant problem for her in the past as well as during recent hospitalizations. Specific etiology not apparent based on previous evaluation. Hemoglobin is now dropped to 7.3 -Transfuse 1 unit of red blood cells -Follow-up hemoglobin in a.m. Maintenance issues - - DVT prophylaxis -SCDs - GI prophylaxis -PPI - Nutrition -regular diet Disposition -anticipate discharge home after the hospital stay Primary care physician -Dr. Lisa Gerber
[2019-09-07] MEDS: LORazepam 0.5 MG Tab PO PRN ×2 (16:56→23:00)
[2019-09-07] MEDS: Melatonin 3 MG Tab PO SCH (20:29)
[2019-09-07] MEDS: IMIPRAMINE HCL 100 MG PO SCH (20:30)
[2019-09-08] MEDS: LORazepam 0.5 MG Tab PO PRN ×2 (03:00→16:31)
[2019-09-08] MEDS: Acetaminophen 325 MG Tab PO PRN ×5 (03:30→20:02)
[2019-09-08] MEDS: Loperamide 2 MG Cap PO SCH ×5 (03:31→22:11)
[2019-09-08] MEDS: traMADol 50 MG Tab PO PRN ×5 (03:31→20:02)
[2019-09-08] MEDS: Calcium Polycarbophil 625 MG Tab PO SCH ×4 (05:31→22:12)
[2019-09-08] MEDS: Atropine/Diphenoxylate 0.025-2.5 MG Tab PO SCH ×5 (05:31→22:11)
[2019-09-08] MEDS: Pantoprazole 40 MG Tab.CR PO SCH ×2 (07:37→16:08)
[2019-09-08] MEDS: tiZANidine 4 MG Tab PO PRN ×2 (07:37→23:07)
[2019-09-08] MEDS: Amylase/Lipase/Protease 12,000 Unit Cap.CR PO SCH ×3 (07:38→18:03)
[2019-09-08] MEDS: OLANZapine 5 MG Tab PO PRN ×2 (07:42→16:07)
--- NOTE | 2019-09-08 08:25 | PCM.PN ---
- General Info Date of Service: 09/08/19 Subjective Update: Ms. Foley continues to experience hemolytic anemia, hemoglobin yesterday was 7.3, after transfusion of 1 unit hemoglobin today is 7.7. She continues to experience symptoms of nausea and relatively high output through her ostomy. - Review of Systems General: Reports: Weakness. Denies: Fever, Chills Pulmonary: Reports: No Symptoms Cardiovascular: Reports: No Symptoms Gastrointestinal: Reports: Abdominal Pain, Nausea. Denies: Difficulty Swallowing, Vomiting Genitourinary: Reports: No Symptoms - Patient Data Vitals - Most Recent: Last Vital Signs Temp 99.8 F 09/08/19 07:25 Pulse 95 09/08/19 07:25 Resp 16 09/08/19 07:25 BP 118/54 L 09/08/19 07:25 Pulse Ox 93 L 09/08/19 07:25 Weight - Most Recent: 175 lb 3.2 oz I&O - Last 24 Hours: Intake & Output 09/07/19 09/08/19 09/08/19 22:59 06:59 14:59 Intake Total 3032 1025 Output Total 4250 1050 500 Balance -1218 -25 -500 Lab Results Last 24 Hours: Laboratory Results - last 24 hr 09/06/19 09/08/19 09/08/19 Range/Units 05:45 03:55 03:55 WBC 4.2 L (4.5-11.0) K/uL RBC 2.92 L (3.30-5.50) M/uL Hgb 7.7 L (12.0-15.0) g/dL Hct 26.0 L (36.0-48.0) % MCV 89 (80-98) fL MCH 26 L (27-31) pg MCHC 30 L (32-36) % Plt Count 88 L (150-400) K/uL Sodium 137 L (140-148) mmol/L Potassium 3.8 (3.6-5.2) mmol/L Chloride 103 (100-108) mmol/L Carbon Dioxide 23 (21-32) mmol/L Anion Gap 14.8 H (5.0-14.0) mmol/L BUN 14 D (7-18) mg/dL Creatinine 1.2 H (0.6-1.0) mg/dL Est Cr Clr Drug Dosing 49.09 mL/min Estimated GFR (MDRD) 46 L (>60) Glucose 104 (74-106) mg/dL Calcium 8.3 L (8.5-10.1) mg/dL Phosphorus 2.0 L (2.5-4.9) mg/dL Magnesium 1.5 L (1.8-2.4) mg/dL Total Bilirubin 2.2 H D (0.2-1.0) mg/dL AST 23 (15-37) U/L ALT 16 (12-78) U/L Alkaline Phosphatase 75 (46-116) U/L Total Protein 7.1 (6.4-8.2) g/dL Albumin 3.5 (3.4-5.0) g/dL Globulin 3.6 H (2.3-3.5) g/dL Albumin/Globulin Ratio 1.0 L (1.2-2.2) Blood Type A POSITIVE Gel Antibody Screen Positive A* Antibody Identification Anti-K Crossmatch See Detail Med Orders - Current: Current Medications Acetaminophen (Tylenol) 650 mg PO Q4H PRN PRN Reason: Pain (Mild 1-3)/fever Last Admin: 09/08/19 07:37 Dose: 650 mg Albuterol (Proventil Neb Soln) 2.5 mg NEB Q4H PRN PRN Reason: Shortness Of Breath/wheezing Lipase/Protease/Amylase ([place] 12,000 Units) 2 cap PO TIDMEALS [facility] Last Admin: 09/08/19 07:38 Dose: 2 cap Calcium Polycarbophil (Fibercon) 1,250 mg PO QID [facility] Last Admin: 09/08/19 05:31 Dose: 1,250 mg Diphenoxylate HCl/Atropine (Lomotil 0.025-2.5 Mg) 2 tab PO QID [facility] Last Admin: 09/08/19 05:31 Dose: 2 tab Duloxetine HCl (Cymbalta) 60 mg PO DAILY [facility] Last Admin: 09/07/19 08:53 Dose: 60 mg Heparin Sodium (Porcine) (Heparin Lock Flush 100 Units/Ml) 500 units FLUSH ASDIRECTED PRN PRN Reason: Keep Vein Open Albumin Human (Albumin 25%) 25 gm in 100 mls @ 25 mls/hr IV DAILY [facility] Stop: 09/09/19 12:59 Last Admin: 09/07/19 08:52 Dose: 25 mls/hr Albumin Human (Albumin 25%) 25 gm in 100 mls @ 25 mls/hr IV Q24H [facility] Stop: 09/09/19 17:59 Last Admin: 09/07/19 15:12 Dose: 25 mls/hr Lactobacillus Rhamnosus (Culturelle) 1 cap PO BID [facility] Last Admin: 09/07/19 20:29 Dose: 1 cap Loperamide HCl (Imodium) 4 mg PO Q6H [facility] Last Admin: 09/08/19 03:31 Dose: 4 mg Lorazepam (Ativan) 0.5 mg PO Q4H PRN PRN Reason: Anxiety Last Admin: 09/08/19 03:00 Dose: 0.5 mg Magnesium Hydroxide (Milk Of Magnesia) 30 ml PO Q12H PRN PRN Reason: Constipation Melatonin (Melatonin) 9 mg PO BEDTIME [facility] Last Admin: 09/07/19 20:29 Dose: 9 mg Calcitriol ( Calcitriol) 0.25 Mg* *Pom 0.25 mg PO DAILY [facility] Last Admin: 09/07/19 08:53 Dose: Not Given Olanzapine (Zyprexa) 5 mg PO Q12H PRN PRN Reason: Anxiety Last Admin: 09/08/19 07:42 Dose: 5 mg Ondansetron HCl (Zofran Odt) 4 mg PO Q6H PRN PRN Reason: Nausea able to take PO Last Admin: 09/06/19 10:50 Dose: 4 mg Ondansetron HCl (Zofran) 4 mg IV Q6H PRN PRN Reason: Nausea/Vomiting Last Admin: 09/03/19 00:51 Dose: 4 mg Pantoprazole Sodium (Protonix) 40 mg PO BIDAC [facility] Last Admin: 09/08/19 07:37 Dose: 40 mg Imipramine Hcl 100mg (CapPom) 0 each PO BEDTIME [facility] Last Admin: 09/07/19 20:30 Dose: 1 each Scopolamine (Transderm-Scop) 1.5 mg TRDERM Q72H [facility] Last Admin: 09/06/19 20:41 Dose: 1.5 mg Senna/Docusate Sodium (Senna Plus) 1 tab PO BID PRN PRN Reason: Constipation Sodium Chloride (Saline Flush) 10 ml FLUSH ASDIRECTED PRN PRN Reason: Keep Vein Open Last Admin: 08/31/19 17:43 Dose: 10 ml Tizanidine HCl (Zanaflex) 4 mg PO BID PRN PRN Reason: Muscle Spasm Last Admin: 09/08/19 07:37 Dose: 4 mg Tramadol HCl (Ultram) 50 mg PO Q4H PRN PRN Reason: Pain Last Admin: 09/08/19 07:36 Dose: 50 mg Discontinued Medications Diphenoxylate HCl/Atropine (Lomotil 0.025-2.5 Mg) 1 tab PO TID [facility] Last Admin: 09/05/19 14:01 Dose: Not Given Hydromorphone HCl (Dilaudid) 0.5 mg IVPUSH ONETIME ONE Stop: 08/31/19 19:04 Last Admin: 08/31/19 19:16 Dose: 0.5 mg Hydromorphone HCl (Dilaudid) 6 mg PO Q6H PRN PRN Reason: Pain (moderate 4-6) Last Admin: 09/02/19 03:45 Dose: 6 mg Hydromorphone HCl (Dilaudid) 1 mg IVPUSH Q2H PRN PRN Reason: Pain (severe 7-10) Last Admin: 09/02/19 08:53 Dose: 1 mg Hydromorphone HCl (Dilaudid) 2 mg PO Q4H PRN PRN Reason: Pain (moderate 4-6) Last Admin: 09/02/19 16:04 Dose: 2 mg Hydromorphone HCl (Dilaudid) 4 mg PO Q4H PRN PRN Reason: Pain (moderate 4-6) Last Admin: 09/03/19 08:53 Dose: 4 mg Sodium Chloride (Normal Saline) 250 mls @ 250 mls/hr IV ASDIRECTED [facility] Last Admin: 08/31/19 17:43 Dose: 250 mls/hr Ceftriaxone Sodium 1 gm/ (Sodium Chloride) 50 mls @ 100 mls/hr IV Q24H [facility] Last Admin: 09/05/19 20:26 Dose: 100 mls/hr Magnesium Sulfate 2 gm/ Premix 50 mls @ 12.5 mls/hr IV Q6H [facility] Stop: 09/02/19 19:29 Last Admin: 09/02/19 16:58 Dose: 12.5 mls/hr Sodium Chloride (Normal Saline) 1,000 mls @ 125 mls/hr IV ASDIRECTED [facility] Last Admin: 09/02/19 03:26 Dose: 125 mls/hr Ceftriaxone Sodium 1 gm/ (Sodium Chloride) 50 mls @ 100 mls/hr IV ONETIME ONE Stop: 08/31/19 21:44 Last Admin: 08/31/19 22:09 Dose: 100 mls/hr Lactated Ringer's (Ringers, Lactated) 1,000 mls @ 125 mls/hr IV ASDIRECTED [facility] Sodium Chloride (Normal Saline) 1,000 mls @ 125 mls/hr IV ASDIRECTED [facility] Last Admin: 09/06/19 03:09 Dose: 125 mls/hr Magnesium Sulfate 2 gm/ Premix 50 mls @ 25 mls/hr IV Q4H [facility] Stop: 09/07/19 07:59 Last Admin: 09/07/19 05:52 Dose: 25 mls/hr Sodium Chloride (Normal Saline) 1,000 mls @ 75 mls/hr IV ASDIRECTED [facility] Last Admin: 09/07/19 07:36 Dose: 75 mls/hr Imipramine HCl (Imipramine Hcl) 200 mg PO BEDTIME [facility] Imipramine HCl (Imipramine Hcl) 200 mg PO ONETIME ONE Stop: 08/31/19 21:31 Last Admin: 08/31/19 22:48 Dose: Not Given Loperamide HCl (Imodium) 2 mg PO Q8H [facility] Last Admin: 09/06/19 07:38 Dose: 2 mg Lorazepam (Ativan) 0.5 mg IVPUSH Q4H PRN PRN Reason: Nausea/Vomiting Last Admin: 09/02/19 18:36 Dose: 0.5 mg Ondansetron HCl (Zofran) 4 mg IVPUSH ONETIME ONE Stop: 08/31/19 17:44 Last Admin: 08/31/19 17:57 Dose: 4 mg Pantoprazole Sodium (Protonix) 40 mg PO ACBREAKFAST [facility] Last Admin: 09/06/19 07:38 Dose: 40 mg - Exam General: Alert, Oriented, Cooperative, Mild Distress Lungs: Clear to Auscultation, Normal Respiratory Effort Cardiovascular: Regular Rate, Regular Rhythm, No Murmurs GI/Abdominal Exam: Soft, No Organomegaly, Tender. No: Distended, Guarding, Rigid, Rebound Extremities: Non-Tender, No Pedal Edema Sepsis Event Note - Evaluation Sepsis Screening Result: No Definite Risk - Focused Exam Vital Signs: Vital Signs Temp Pulse Resp BP Pulse Ox 09/08/19 07:25 99.8 F 95 16 118/54 L 93 L 09/08/19 05:32 100.3 F 09/08/19 03:32 100.9 F H 102 H 118/56 L 09/08/19 03:02 101 F H 104 H 16 90/42 L 99 09/07/19 22:29 98.1 F 71 16 140/45 L 99 Date Exam was Performed: 09/08/19 Time Exam was Performed: 08:20 - Problem List Review Problem List Initiated/Reviewed/Updated: Yes - My Orders Last 24 Hours: My Active Orders 09/07/19 10:36 Convert IV to Saline Lock [OM.PC] Routine 09/09/19 05:00 CBC WITH AUTO DIFF [HEME] Timed COMPREHENSIVE METABOLIC PN,CMP [CHEM] Timed MAGNESIUM [CHEM] Timed 09/09/19 05:11 LACTATE DEHYDROGENASE,LDH [CHEM] AM RETICULOCYTE COUNT [HEME] AM - Plan Plan:: ASSESSMENT AND PLAN Acute oliguric kidney injury-resolved -Repeat labs in the morning Acute cystitis without hematuria-resolved Crohn's disease with multiple intestinal abnormalities-recent significant abdominal surgery to redo the ileostomy with multiple postoperative complications including 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 Incision is healing by secondary intention and appears to be doing well at this time. New difficulty with nausea and high output through the ostomy -Management per Dr. Reno -Saline lock IV -Monitor and record ostomy output Hypomagnesemia-chronic problem with her previous colectomy. -Follow-up magnesium in a.m. Hemolytic anemia-significant problem for her in the past as well as during recent hospitalizations. 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 Reviewed with hematology on-call again today, they have recommended a trial of steroids to see if there is any response. -Decadron 14 mg IV daily -Also consider a trial of IgG -Transfuse 1 unit of red blood cells -Follow-up hemoglobin in a.m. Maintenance issues - - DVT prophylaxis -SCDs - GI prophylaxis -PPI - Nutrition -regular diet Disposition -anticipate discharge home after the hospital stay Primary care physician -Dr. Lisa Gerber
[2019-09-08] MEDS ORDERED: Dexamethasone 4 MG/ML SDV IVPUSH SCH (09:00)
[2019-09-08] MEDS: DULoxetine 30 MG Cap PO SCH (10:00)
[2019-09-08] MEDS: Lactobacillus Rhamnosus GG (Probiotic) Cap PO SCH ×2 (10:00→20:01)
[2019-09-08] MEDS: Magnesium Sulfate/Water 2 GM in Premix Bag 1 BAG IV SCH ×3 (10:02→20:53)
--- NOTE | 2019-09-08 11:13 | PN ---
DATE OF SERVICE: 09/08/2019 The patient has been afebrile with stable vital signs. Oral intake was a little higher. With this, her ileostomy output has also gone up higher over around 2300 again. Tincture of opium was not available, but we will ask pharmacy to order that in. In the meantime, we will see if we can move up the Lomotil and Imodium doses to q.4 hours, and otherwise continue the administration of the albumin. The magnesium remains somewhat low and we will continue to supplement that IV, and at some point, we may need to think in terms of getting the patient home with some home TPN to supplement oral intake, if we are not able to get the ileostomy output decreased sufficiently over the next few days. The patient's hemoglobin went from 7.4 to 7.7 with 1 unit of packed RBCs yesterday. We will give her 1 additional unit today. She is obviously undergoing some hemolysis, as she has done previously, as the bilirubin did bump up to around 2 with yesterday's transfusion. Shamar Reno MD /[id number] MTDD
[2019-09-08] MEDS: VERIFY SCOP PATCH TOP SCH (13:42)
--- NOTE | 2019-09-08 15:46 | PN ---
DATE OF SERVICE: 09/07/2019 The patient has been afebrile with stable vital signs. Her ileostomy output is decreasing now to around 1800 from 3200 yesterday and oral intake was little over 2 L, so things are gradually improving. Hemoglobin is down in the 7s. We will give her 1 unit of packed RBCs today. Recheck some laboratories tomorrow. She is on maximum dose of Imodium and Lomotil. Given this, I will add some tincture of opium 0.5 mL q.i.d. to try to slow the ileostomy down somewhat further. Otherwise, we will build up her albumin levels, which should help with absorption as well and continue the local wound care. Shamar Reno MD /[id number]
[2019-09-08] MEDS: Ondansetron 4 MG Tab.DIS PO PRN ×2 (16:31→22:14)
[2019-09-08] MEDS: CALCITRIOL 0.25 MG PO SCH (16:57)
[2019-09-08] MEDS ORDERED: Vancomycin 1 GM SDV IV SCH (20:00)
[2019-09-08] MEDS: Melatonin 3 MG Tab PO SCH (20:02)
[2019-09-08] MEDS: IMIPRAMINE HCL 100 MG PO SCH (20:02)
[2019-09-08] MEDS: Piperacillin/Tazobactam 3.375 GM in Sodium Chloride 0.9% 50 ML IV SCH (20:04)
--- NOTE | 2019-09-08 20:23 | CRLCR ---
Indication: No fever. Technique: Two views of the chest. Comparison: July 15, 2019. Findings: A right-sided Port-A-Cath is identified. A probable developing left lower lobe infiltrate is identified. No pleural effusion or pneumothorax is identified. Impression: Probable developing left lower lobe infiltrate Dictated by Mary Marino MD @ Sep 08 2019 8:21PM Signed by Dr. Mary Marino @ Sep 08 2019 8:22PM
--- NOTE | 2019-09-08 20:50 | PCM.SN.2 ---
- Free Text/Narrative Note: Ms. Foley shortly developed a fever late this afternoon/early evening. This did occur shortly after she had completed her transfusion, there was some question as to whether there may have been a transfusion reaction. Initial evaluation for that is negative. Blood cultures have been obtained, urinalysis showed no evidence of infection. Chest x-ray shows probable developing left lower lobe infiltrate. She has been started on broad-spectrum IV antibiotic therapy for healthcare associated pneumonia. Antibiotics include vancomycin, Zosyn, and levofloxacin.
[2019-09-08] MEDS ORDERED: VANCOMYCIN PER PHARMACY SCH (21:00)
[2019-09-08] MEDS ORDERED: Levofloxacin/Dextrose 5%-Water 750 MG in Premix Bag 1 BAG IV SCH ×2 (21:00→23:00)
[2019-09-09] MEDS: Acetaminophen 325 MG Tab PO PRN ×4 (00:13→13:08)
[2019-09-09] MEDS: traMADol 50 MG Tab PO PRN ×5 (00:14→19:43)
[2019-09-09] MEDS: Piperacillin/Tazobactam 3.375 GM in Sodium Chloride 0.9% 50 ML IV SCH (02:06)
[2019-09-09] MEDS: Loperamide 2 MG Cap PO SCH ×6 (02:34→21:16)
[2019-09-09] MEDS: Atropine/Diphenoxylate 0.025-2.5 MG Tab PO SCH ×6 (02:35→21:39)
[2019-09-09] MEDS: Magnesium Sulfate/Water 2 GM in Premix Bag 1 BAG IV SCH ×4 (02:36→21:21)
[2019-09-09] MEDS: Calcium Polycarbophil 625 MG Tab PO SCH ×4 (05:45→21:16)
[2019-09-09] MEDS: Amylase/Lipase/Protease 12,000 Unit Cap.CR PO SCH ×3 (07:28→16:20)
[2019-09-09] MEDS: Pantoprazole 40 MG Tab.CR PO SCH ×2 (07:28→16:19)
[2019-09-09] MEDS: Piperacillin/Tazobactam/Dext 3.375 GM in Premix Bag 1 BAG IV SCH ×3 (08:04→19:30)
[2019-09-09] MEDS: VERIFY SCOP PATCH TOP SCH (08:09)
[2019-09-09] MEDS: Lactobacillus Rhamnosus GG (Probiotic) Cap PO SCH ×2 (08:11→21:16)
[2019-09-09] MEDS: DULoxetine 30 MG Cap PO SCH (08:11)
[2019-09-09] MEDS: OLANZapine 5 MG Tab PO PRN ×2 (08:51→13:09)
--- NOTE | 2019-09-09 10:38 | PN ---
DATE OF SERVICE: 09/09/2019 SUBJECTIVE: Aline had a unit of blood yesterday and she did develop 102 fever after the blood was infused and nausea. Blood cultures are pending. Chest x-ray showed left lower lobe infiltration. She was started on Levaquin, Zosyn, and vancomycin. She has been afebrile since the temperature spike. Oral intake 1320, 1125 mL out of the ostomy bag. REVIEW OF SYSTEMS: Remainder of review of systems negative for any pertinent positives and negatives. LABORATORY DATA: Hemoglobin 7.5. OBJECTIVE: GENERAL: Aline is a 58-year-old female, color pale. Alert, orientated. VITAL SIGNS: TPR at 0718, 95.9; 71; 16; blood pressure 104/44. HEENT: Negative. NECK: Supple. HEART: Regular rate and rhythm. LUNGS: Clear. ABDOMEN: Dressing dry and intact. Ileostomy intact. EXTREMITIES: Without peripheral edema. ASSESSMENT: 1. New left lower lobe infiltration. 2. Diarrhea, large amount from ostomy. 3. Open abdominal incision. 4. Acute kidney injury. 5. Severe dehydration, resolved. 6. Hemolytic anemia. 7. History of left nephrectomy. 8. Crohn's disease. PLAN: 1. Give 1 unit of packed red blood cells. 2. Albumin 50 g x3 days. 3. Check CBC, CMP, phos, and BNP in a.m. 4. Encouraged to use incentive spirometer. 5. We will evaluate p.r.n. or in a.m. Aline Landeros PA-C /[id number]
--- NOTE | 2019-09-09 14:37 | PCM.PN ---
- General Info Date of Service: 09/09/19 Subjective Update: No acute events overnight. Pain is stable and fairly well controlled. Still has nausea not able to eat very much. No fever since yesterday afternoon and antibiotics were initiated. Cultures negative so far. Hemoglobin level stable compared to yesterday despite the transfusion. Platelets are slightly lower than yesterday. She has been up and walking around. Ostomy output slightly less today but still on the high output side. Functional Status: Reports: Pain Controlled, Tolerating Diet - Review of Systems Pulmonary: Denies: Shortness of Breath Gastrointestinal: Reports: Abdominal Pain, Nausea - Patient Data Vitals - Most Recent: Last Vital Signs Temp 35.1 C L 09/09/19 14:29 Pulse 75 09/09/19 14:29 Resp 18 09/09/19 14:29 BP 104/42 L 09/09/19 14:29 Pulse Ox 96 09/09/19 11:39 Weight - Most Recent: 77.474 kg I&O - Last 24 Hours: Intake & Output 09/08/19 09/09/19 09/09/19 22:59 06:59 14:59 Intake Total 1650 750 440 Output Total 1375 500 575 Balance 275 250 -135 Lab Results Last 24 Hours: Laboratory Results - last 24 hr 09/06/19 09/08/19 09/09/19 Range/Units 05:45 20:00 05:40 WBC 3.6 L (4.5-11.0) K/uL RBC 2.69 L (3.30-5.50) M/uL Hgb 7.5 L (12.0-15.0) g/dL Hct 24.0 L (36.0-48.0) % MCV 89 (80-98) fL MCH 28 (27-31) pg MCHC 31 L (32-36) % Plt Count 47 L (150-400) K/uL Add Manual Diff Yes Neutrophils % (Manual) 80 H (36-66) % Lymphocytes % (Manual) 17 L (24-44) % Monocytes % (Manual) 3 (2-6) % Percent Retic (0.5-1.5) % Sodium (140-148) mmol/L Potassium (3.6-5.2) mmol/L Chloride (100-108) mmol/L Carbon Dioxide (21-32) mmol/L Anion Gap (5.0-14.0) mmol/L BUN (7-18) mg/dL Creatinine (0.6-1.0) mg/dL Est Cr Clr Drug Dosing mL/min Estimated GFR (MDRD) (>60) Glucose (74-106) mg/dL Calcium (8.5-10.1) mg/dL Phosphorus (2.5-4.9) mg/dL Magnesium (1.8-2.4) mg/dL Total Bilirubin (0.2-1.0) mg/dL AST (15-37) U/L ALT (12-78) U/L Alkaline Phosphatase (46-116) U/L Lactate Dehydrogenase (82-234) U/L Total Protein (6.4-8.2) g/dL Albumin (3.4-5.0) g/dL Globulin (2.3-3.5) g/dL Albumin/Globulin Ratio (1.2-2.2) Urine Color Other A (YELLOW) Urine Appearance Clear (CLEAR) Urine pH 5.5 (5.0-8.0) Ur Specific [place] 1.015 (1.008-1.030) Urine Protein 100 H (NEGATIVE) mg/dL Urine Glucose (UA) Negative (NEGATIVE) mg/dL Urine Ketones Negative (NEGATIVE) mg/dL Urine Occult Blood Small H (NEGATIVE) Urine Nitrite Negative (NEGATIVE) Urine Bilirubin Small H (NEGATIVE) Urine Urobilinogen 0.2 (0.2-1.0) EU/dL Ur Leukocyte Esterase Negative (NEGATIVE) Urine RBC Not seen (0-5) Urine WBC Not seen (0-5) Ur Epithelial Cells Moderate Amorphous Sediment Few Urine Bacteria Not seen Blood Type A POSITIVE Gel Antibody Screen Positive A* Antibody Identification Anti-K Crossmatch See Detail 09/09/19 09/09/19 09/09/19 Range/Units 05:40 05:40 05:40 WBC (4.5-11.0) K/uL RBC (3.30-5.50) M/uL Hgb (12.0-15.0) g/dL Hct (36.0-48.0) % MCV (80-98) fL MCH (27-31) pg MCHC (32-36) % Plt Count (150-400) K/uL Add Manual Diff Neutrophils % (Manual) (36-66) % Lymphocytes % (Manual) (24-44) % Monocytes % (Manual) (2-6) % Percent Retic 2.2 H (0.5-1.5) % Sodium 137 L (140-148) mmol/L Potassium 4.1 (3.6-5.2) mmol/L Chloride 103 (100-108) mmol/L Carbon Dioxide 24 (21-32) mmol/L Anion Gap 14.1 H (5.0-14.0) mmol/L BUN 26 H D (7-18) mg/dL Creatinine 1.5 H (0.6-1.0) mg/dL Est Cr Clr Drug Dosing 39.27 mL/min Estimated GFR (MDRD) 36 L (>60) Glucose 148 H (74-106) mg/dL Calcium 9.2 (8.5-10.1) mg/dL Phosphorus (2.5-4.9) mg/dL Magnesium 3.0 H D (1.8-2.4) mg/dL Total Bilirubin 4.6 H D (0.2-1.0) mg/dL AST 21 (15-37) U/L ALT 18 (12-78) U/L Alkaline Phosphatase 57 (46-116) U/L Lactate Dehydrogenase 442 H (82-234) U/L Total Protein 7.2 (6.4-8.2) g/dL Albumin 3.5 (3.4-5.0) g/dL Globulin 3.7 H (2.3-3.5) g/dL Albumin/Globulin Ratio 1.0 L (1.2-2.2) Urine Color (YELLOW) Urine Appearance (CLEAR) Urine pH (5.0-8.0) Ur Specific [place] (1.008-1.030) Urine Protein (NEGATIVE) mg/dL Urine Glucose (UA) (NEGATIVE) mg/dL Urine Ketones (NEGATIVE) mg/dL Urine Occult Blood (NEGATIVE) Urine Nitrite (NEGATIVE) Urine Bilirubin (NEGATIVE) Urine Urobilinogen (0.2-1.0) EU/dL Ur Leukocyte Esterase (NEGATIVE) Urine RBC (0-5) Urine WBC (0-5) Ur Epithelial Cells Amorphous Sediment Urine Bacteria Blood Type Gel Antibody Screen Antibody Identification Crossmatch 09/09/19 Range/Units 05:40 WBC (4.5-11.0) K/uL RBC (3.30-5.50) M/uL Hgb (12.0-15.0) g/dL Hct (36.0-48.0) % MCV (80-98) fL MCH (27-31) pg MCHC (32-36) % Plt Count (150-400) K/uL Add Manual Diff Neutrophils % (Manual) (36-66) % Lymphocytes % (Manual) (24-44) % Monocytes % (Manual) (2-6) % Percent Retic (0.5-1.5) % Sodium (140-148) mmol/L Potassium (3.6-5.2) mmol/L Chloride (100-108) mmol/L Carbon Dioxide (21-32) mmol/L Anion Gap (5.0-14.0) mmol/L BUN (7-18) mg/dL Creatinine (0.6-1.0) mg/dL Est Cr Clr Drug Dosing mL/min Estimated GFR (MDRD) (>60) Glucose (74-106) mg/dL Calcium (8.5-10.1) mg/dL Phosphorus 2.8 (2.5-4.9) mg/dL Magnesium (1.8-2.4) mg/dL Total Bilirubin (0.2-1.0) mg/dL AST (15-37) U/L ALT (12-78) U/L Alkaline Phosphatase (46-116) U/L Lactate Dehydrogenase (82-234) U/L Total Protein (6.4-8.2) g/dL Albumin (3.4-5.0) g/dL Globulin (2.3-3.5) g/dL Albumin/Globulin Ratio (1.2-2.2) Urine Color (YELLOW) Urine Appearance (CLEAR) Urine pH (5.0-8.0) Ur Specific [place] (1.008-1.030) Urine Protein (NEGATIVE) mg/dL Urine Glucose (UA) (NEGATIVE) mg/dL Urine Ketones (NEGATIVE) mg/dL Urine Occult Blood (NEGATIVE) Urine Nitrite (NEGATIVE) Urine Bilirubin (NEGATIVE) Urine Urobilinogen (0.2-1.0) EU/dL Ur Leukocyte Esterase (NEGATIVE) Urine RBC (0-5) Urine WBC (0-5) Ur Epithelial Cells Amorphous Sediment Urine Bacteria Blood Type Gel Antibody Screen Antibody Identification Crossmatch Med Orders - Current: Current Medications Acetaminophen (Tylenol) 650 mg PO Q4H PRN PRN Reason: Pain (Mild 1-3)/fever Last Admin: 09/09/19 13:08 Dose: 650 mg Albuterol (Proventil Neb Soln) 2.5 mg NEB Q4H PRN PRN Reason: Shortness Of Breath/wheezing Lipase/Protease/Amylase (Cremazin Dr 12,000 Units) 2 cap PO TIDMEALS [facility] Last Admin: 09/09/19 13:10 Dose: 2 cap Calcium Polycarbophil (Fibercon) 1,250 mg PO QID [facility] Last Admin: 09/09/19 10:15 Dose: 1,250 mg Diphenoxylate HCl/Atropine (Lomotil 0.025-2.5 Mg) 2 tab PO Q4H [facility] Last Admin: 09/09/19 11:23 Dose: 2 tab Duloxetine HCl (Cymbalta) 60 mg PO DAILY [facility] Last Admin: 09/09/19 08:11 Dose: 60 mg Heparin Sodium (Porcine) (Heparin Lock Flush 100 Units/Ml) 500 units FLUSH ASDIRECTED PRN PRN Reason: Keep Vein Open Albumin Human (Albumin 25%) 25 gm in 100 mls @ 25 mls/hr IV Q24H [facility] Stop: 09/09/19 17:59 Last Admin: 09/08/19 13:40 Dose: 25 mls/hr Magnesium Sulfate 2 gm/ Premix 50 mls @ 25 mls/hr IV Q6H [facility] Stop: 09/11/19 05:29 Last Admin: 09/09/19 10:14 Dose: 25 mls/hr Dexamethasone 14 mg/ Sodium (Chloride) 53.5 mls @ 104.902 mls/hr IV Q24H [facility] Stop: 09/12/19 12:01 Last Admin: 09/09/19 13:11 Dose: 104.902 mls/hr Vancomycin HCl 1 gm/ Sodium (Chloride) 250 mls @ 166.667 mls/hr IV Q24H [facility] Last Admin: 09/08/19 20:49 Dose: 166.667 mls/hr Albumin Human (Albumin 25%) 25 gm in 100 mls @ 25 mls/hr IV DAILY [facility] Stop: 09/12/19 12:59 Albumin Human (Albumin 25%) 25 gm in 100 mls @ 25 mls/hr IV Q24H [facility] Stop: 09/12/19 17:59 Piperacillin/Tazobactam/ (Dextrose 3.375 gm/ Premix) 50 mls @ 100 mls/hr IV Q6H [facility] Last Admin: 09/09/19 14:03 Dose: 100 mls/hr Levofloxacin/Dextrose 750 mg/ (Premix) 150 mls @ 100 mls/hr IV Q48H [facility] Lactobacillus Rhamnosus (Culturelle) 1 cap PO BID [facility] Last Admin: 09/09/19 08:11 Dose: 1 cap Loperamide HCl (Imodium) 4 mg PO Q4H [facility] Last Admin: 09/09/19 13:50 Dose: 4 mg Lorazepam (Ativan) 0.5 mg PO Q4H PRN PRN Reason: Anxiety Last Admin: 09/08/19 16:31 Dose: 0.5 mg Magnesium Hydroxide (Milk Of Magnesia) 30 ml PO Q12H PRN PRN Reason: Constipation Melatonin (Melatonin) 9 mg PO BEDTIME [facility] Last Admin: 09/08/19 20:02 Dose: 9 mg Verify Scop Patch 0 each TOP DAILY [facility] Last Admin: 09/09/19 08:09 Dose: 1 each Olanzapine (Zyprexa) 5 mg PO Q12H PRN PRN Reason: Anxiety Last Admin: 09/09/19 13:09 Dose: 5 mg Ondansetron HCl (Zofran Odt) 4 mg PO Q6H PRN PRN Reason: Nausea able to take PO Last Admin: 09/08/19 22:14 Dose: 4 mg Ondansetron HCl (Zofran) 4 mg IV Q6H PRN PRN Reason: Nausea/Vomiting Last Admin: 09/03/19 00:51 Dose: 4 mg Pantoprazole Sodium (Protonix) 40 mg PO BIDAC [facility] Last Admin: 09/09/19 07:28 Dose: 40 mg Imipramine Hcl 100mg (CapPom) 0 each PO BEDTIME [facility] Last Admin: 09/08/19 20:02 Dose: 1 each Scopolamine (Transderm-Scop) 1.5 mg TRDERM Q72H [facility] Last Admin: 09/06/19 20:41 Dose: 1.5 mg Senna/Docusate Sodium (Senna Plus) 1 tab PO BID PRN PRN Reason: Constipation Sodium Chloride (Saline Flush) 10 ml FLUSH ASDIRECTED PRN PRN Reason: Keep Vein Open Last Admin: 08/31/19 17:43 Dose: 10 ml Tizanidine HCl (Zanaflex) 4 mg PO BID PRN PRN Reason: Muscle Spasm Last Admin: 09/08/19 23:07 Dose: 4 mg Tramadol HCl (Ultram) 50 mg PO Q4H PRN PRN Reason: Pain Last Admin: 09/09/19 13:09 Dose: 50 mg Discontinued Medications Diphenoxylate HCl/Atropine (Lomotil 0.025-2.5 Mg) 1 tab PO TID [facility] Last Admin: 09/05/19 14:01 Dose: Not Given Diphenoxylate HCl/Atropine (Lomotil 0.025-2.5 Mg) 2 tab PO QID [facility] Last Admin: 09/08/19 05:31 Dose: 2 tab Hydromorphone HCl (Dilaudid) 0.5 mg IVPUSH ONETIME ONE Stop: 08/31/19 19:04 Last Admin: 08/31/19 19:16 Dose: 0.5 mg Hydromorphone HCl (Dilaudid) 6 mg PO Q6H PRN PRN Reason: Pain (moderate 4-6) Last Admin: 09/02/19 03:45 Dose: 6 mg Hydromorphone HCl (Dilaudid) 1 mg IVPUSH Q2H PRN PRN Reason: Pain (severe 7-10) Last Admin: 09/02/19 08:53 Dose: 1 mg Hydromorphone HCl (Dilaudid) 2 mg PO Q4H PRN PRN Reason: Pain (moderate 4-6) Last Admin: 09/02/19 16:04 Dose: 2 mg Hydromorphone HCl (Dilaudid) 4 mg PO Q4H PRN PRN Reason: Pain (moderate 4-6) Last Admin: 09/03/19 08:53 Dose: 4 mg Sodium Chloride (Normal Saline) 250 mls @ 250 mls/hr IV ASDIRECTED [facility] Last Admin: 08/31/19 17:43 Dose: 250 mls/hr Ceftriaxone Sodium 1 gm/ (Sodium Chloride) 50 mls @ 100 mls/hr IV Q24H [facility] Last Admin: 09/05/19 20:26 Dose: 100 mls/hr Magnesium Sulfate 2 gm/ Premix 50 mls @ 12.5 mls/hr IV Q6H [facility] Stop: 09/02/19 19:29 Last Admin: 09/02/19 16:58 Dose: 12.5 mls/hr Sodium Chloride (Normal Saline) 1,000 mls @ 125 mls/hr IV ASDIRECTED [facility] Last Admin: 09/02/19 03:26 Dose: 125 mls/hr Ceftriaxone Sodium 1 gm/ (Sodium Chloride) 50 mls @ 100 mls/hr IV ONETIME ONE Stop: 08/31/19 21:44 Last Admin: 08/31/19 22:09 Dose: 100 mls/hr Lactated Ringer's (Ringers, Lactated) 1,000 mls @ 125 mls/hr IV ASDIRECTED [facility] Sodium Chloride (Normal Saline) 1,000 mls @ 125 mls/hr IV ASDIRECTED [facility] Last Admin: 09/06/19 03:09 Dose: 125 mls/hr Magnesium Sulfate 2 gm/ Premix 50 mls @ 25 mls/hr IV Q4H [facility] Stop: 09/07/19 07:59 Last Admin: 09/07/19 05:52 Dose: 25 mls/hr Albumin Human (Albumin 25%) 25 gm in 100 mls @ 25 mls/hr IV DAILY [facility] Stop: 09/09/19 12:59 Last Admin: 09/09/19 09:12 Dose: 25 mls/hr Sodium Chloride (Normal Saline) 1,000 mls @ 75 mls/hr IV ASDIRECTED [facility] Last Admin: 09/07/19 07:36 Dose: 75 mls/hr Piperacillin Sod/Tazobactam (Sod 3.375 gm/ Sodium Chloride) 50 mls @ 100 mls/ hr IV Q6H [facility] Last Admin: 09/09/19 02:06 Dose: 100 mls/hr Levofloxacin/Dextrose 750 mg/ (Premix) 150 mls @ 100 mls/hr IV Q24H [facility] Last Admin: 09/08/19 22:18 Dose: Not Given Levofloxacin/Dextrose 750 mg/ (Premix) 150 mls @ 100 mls/hr IV Q24H [facility] Last Admin: 09/08/19 22:57 Dose: 100 mls/hr Imipramine HCl (Imipramine Hcl) 200 mg PO BEDTIME [facility] Imipramine HCl (Imipramine Hcl) 200 mg PO ONETIME ONE Stop: 08/31/19 21:31 Last Admin: 08/31/19 22:48 Dose: Not Given Loperamide HCl (Imodium) 2 mg PO Q8H [facility] Last Admin: 09/06/19 07:38 Dose: 2 mg Loperamide HCl (Imodium) 4 mg PO Q6H [facility] Last Admin: 09/08/19 03:31 Dose: 4 mg Lorazepam (Ativan) 0.5 mg IVPUSH Q4H PRN PRN Reason: Nausea/Vomiting Last Admin: 09/02/19 18:36 Dose: 0.5 mg Calcitriol ( Calcitriol) 0.25 Mg* *Pom 0.25 mg PO DAILY [facility] Last Admin: 09/08/19 16:57 Dose: Not Given Ondansetron HCl (Zofran) 4 mg IVPUSH ONETIME ONE Stop: 08/31/19 17:44 Last Admin: 08/31/19 17:57 Dose: 4 mg Pantoprazole Sodium (Protonix) 40 mg PO ACBREAKFAST [facility] Last Admin: 09/06/19 07:38 Dose: 40 mg Pharmacy Consult (Consult To Pharmacy) 1 each .XX ASDIRECTED [facility] Stop: 09/09/19 08:00 Vancomycin HCl (Vancomycin) 1 gm IV .PHARMACY TO DOSE [facility] - Exam Quality Assessment: No: Supplemental Oxygen General: Alert, Oriented, Cooperative, No Acute Distress Lungs: Normal Respiratory Effort Cardiovascular: Regular Rate, Regular Rhythm GI/Abdominal Exam: Soft, No Distention Extremities: No Pedal Edema Skin: Warm, Dry Psy/Mental Status: Alert, Normal Affect Sepsis Event Note - Evaluation Sepsis Screening Result: Severe Sepsis Risk - Focused Exam Vital Signs: Vital Signs Temp Temp Pulse Pulse Resp BP Pulse Ox 09/09/19 14:29 35.1 C L 75 75 18 104/42 L 09/09/19 14:14 35.2 C L 77 18 110/46 L 09/09/19 13:59 34.4 C L 79 18 96/39 L 09/09/19 11:39 35.4 C L 69 16 91/41 L 96 09/09/19 07:18 35.5 C L 71 16 104/44 L 99 09/09/19 02:54 105/54 L 09/09/19 02:38 35.9 C L 69 16 86/40 L 96 Date Exam was Performed: 09/09/19 Time Exam was Performed: 15:45 - Problem List & Annotations (1) Acute kidney injury SNOMED Code(s): 12016352, 64755796 Code(s): N17.9 - ACUTE KIDNEY FAILURE, UNSPECIFIED Status: Acute Current Visit: Yes (2) Severe dehydration SNOMED Code(s): 311434807 Code(s): E86.0 - DEHYDRATION Status: Acute Current Visit: Yes (3) Nausea SNOMED Code(s): 471952030 Code(s): R11.0 - NAUSEA Status: Acute Current Visit: Yes (4) History of left nephrectomy SNOMED Code(s): 73935897141632 Code(s): Z90.5 - ACQUIRED ABSENCE OF KIDNEY Status: Chronic Current Visit : No (5) Crohn's disease SNOMED Code(s): 29315725 Code(s): K50.90 - CROHN'S DISEASE, UNSPECIFIED, WITHOUT COMPLICATIONS Status: Chronic Current Visit: No Qualifiers: Gastrointestinal tract location: unspecified location Digestive disease complication type: unspecified complication Qualified Code(s): K50.919 - Crohn 's disease, unspecified, with unspecified complications - Problem List Review Problem List Initiated/Reviewed/Updated: Yes - Plan Plan:: ASSESSMENT AND PLAN Acute oliguric kidney injury-resolved -Repeat labs in the morning Acute cystitis without hematuria-resolved Crohn's disease with multiple intestinal abnormalities-recent significant abdominal surgery to redo the ileostomy with multiple postoperative complications including 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 Incision is healing by secondary intention and appears to be doing well at this time. New difficulty with nausea and high output through the ostomy. -Management per Dr. Reno -Saline lock IV -Monitor and record ostomy output Hypomagnesemia-chronic problem with her previous colectomy. -Follow-up magnesium in a.m. Hemolytic anemia, suspected-significant problem for her in the past as well as during recent hospitalizations. 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 Reviewed with hematology on- call again today, they have recommended a trial of steroids to see if there is any response. -Decadron 14 mg IV daily x5 days -Also consider a trial of IVIG -Transfuse 1 unit of red blood cells -Follow-up hemoglobin in a.m. Maintenance issues - - DVT prophylaxis -SCDs - GI prophylaxis -PPI - Nutrition -regular diet Disposition -anticipate discharge home after the hospital stay Rad Pedersen MD
[2019-09-09] MEDS: OPIUM TINCTURE PO SCH ×2 (15:55→21:39)
[2019-09-09] MEDS: Fluconazole/Normal Saline 200 MG in Premix Bag 1 BAG IV SCH (17:45)
[2019-09-09] MEDS: LORazepam 0.5 MG Tab PO PRN (19:48)
[2019-09-09] MEDS: tiZANidine 4 MG Tab PO PRN (19:48)
[2019-09-09] MEDS: Melatonin 3 MG Tab PO SCH (21:16)
[2019-09-09] MEDS: Scopolamine 1.5 MG Transdermal Patch TRDERM SCH (21:16)
[2019-09-09] MEDS: IMIPRAMINE HCL 100 MG PO SCH (21:19)
[2019-09-10] MEDS: LORazepam 0.5 MG Tab PO PRN ×4 (00:03→20:24)
[2019-09-10] MEDS: traMADol 50 MG Tab PO PRN ×5 (00:04→20:23)
[2019-09-10] MEDS: Loperamide 2 MG Cap PO SCH ×6 (02:31→22:36)
[2019-09-10] MEDS: Atropine/Diphenoxylate 0.025-2.5 MG Tab PO SCH ×6 (02:32→22:36)
[2019-09-10] MEDS: Piperacillin/Tazobactam/Dext 3.375 GM in Premix Bag 1 BAG IV SCH ×4 (02:32→20:30)
[2019-09-10] MEDS: Magnesium Sulfate/Water 2 GM in Premix Bag 1 BAG IV SCH ×4 (02:33→20:33)
[2019-09-10] MEDS: OLANZapine 5 MG Tab PO PRN ×2 (04:28→20:23)
[2019-09-10] MEDS: Calcium Polycarbophil 625 MG Tab PO SCH ×4 (05:39→22:36)
[2019-09-10] MEDS: OPIUM TINCTURE PO SCH ×4 (05:40→23:35)
[2019-09-10] MEDS: Amylase/Lipase/Protease 12,000 Unit Cap.CR PO SCH ×3 (07:49→17:08)
[2019-09-10] MEDS: Pantoprazole 40 MG Tab.CR PO SCH ×2 (08:04→17:08)
[2019-09-10] MEDS: Acetaminophen 325 MG Tab PO PRN ×3 (08:47→20:23)
[2019-09-10] MEDS: tiZANidine 4 MG Tab PO PRN ×3 (08:48→20:23)
[2019-09-10] MEDS: DULoxetine 30 MG Cap PO SCH (08:54)
[2019-09-10] MEDS: Lactobacillus Rhamnosus GG (Probiotic) Cap PO SCH ×3 (08:54→20:33)
[2019-09-10] MEDS: VERIFY SCOP PATCH TOP SCH (08:55)
[2019-09-10] MEDS ORDERED: Furosemide 20 MG/2 ML VIAL IVPUSH ONE (09:00)
--- NOTE | 2019-09-10 12:09 | PN ---
DATE OF SERVICE: 09/10/2019 SUBJECTIVE: Aline has been afebrile. She has been more active, up walking. Vital signs; afebrile. Oral intake 1080, urine output 1650, and ileostomy put out 900. Pain is controlled with tramadol. She did start opium tincture for diarrhea yesterday around 4:00 p.m. LABORATORY DATA TODAY: Hemoglobin 8.2, white count 4.5, potassium 4.5. She is getting magnesium, so that was not checked. BNP was 3834. REVIEW OF SYSTEMS: Remainder of review of systems negative for any pertinent positives and negatives. OBJECTIVE: GENERAL: Aline Foley is a 58-year-old female, alert and orientated, looks like she is feeling much better. Color is pale. VITAL SIGNS: TPR at 0700, 95.6; 75; 18; blood pressure 135/62. HEENT: Negative. NECK: Supple. HEART: Regular rate and rhythm. LUNGS: Clear. ABDOMEN: Dressing is dry and intact. Abdominal binder is on. EXTREMITIES: Without peripheral edema. ASSESSMENT: 1. Left lower lobe infiltration. 2. Diarrhea, large amount from ostomy. 3. Open abdominal incision. 4. Acute kidney injury. 5. Severe dehydration, resolved. 6. Hemolytic anemia. 7. History of left nephrectomy. 8. Crohn's disease. PLAN: 1. Lasix 20 mg IV now. 2. Check CBC, CMP, phos, BNP. 3. Type and cross 2 units of blood in a.m. 4. May shower. 5. Continue use of good pulmonary function, use of IS, and ambulation. 6. We will evaluate p.r.n. or in a.m. Aline Landeros PA-C /[id number]
--- NOTE | 2019-09-10 12:24 | PCM.PN ---
- General Info Date of Service: 09/10/19 Subjective Update: No acute events overnight. Vital signs have been stable. Abdominal pain is controlled. Ostomy output is a little better today. No fevers in the past 48 hours. Blood cultures from her peripheral collection are positive for gram- positive cocci. Blood cultures from the port are growing gram-negative rods and some fungal elements were seen. She has been walking. Appetite is little better. Hemoglobin is slightly improved from yesterday and platelets are improving. Functional Status: Reports: Pain Controlled, Tolerating Diet - Review of Systems Gastrointestinal: Reports: Abdominal Pain - Patient Data Vitals - Most Recent: Last Vital Signs Temp 35.3 C L 09/10/19 07:00 Pulse 75 09/10/19 07:00 Resp 18 09/10/19 07:00 BP 135/62 09/10/19 07:00 Pulse Ox 97 09/10/19 07:00 Weight - Most Recent: 78.608 kg I&O - Last 24 Hours: Intake & Output 09/09/19 09/10/19 09/10/19 22:59 06:59 14:59 Intake Total 1330 500 200 Output Total 950 1100 400 Balance 380 -600 -200 Lab Results Last 24 Hours: Laboratory Results - last 24 hr 09/06/19 09/10/19 09/10/19 Range/Units 05:45 04:15 04:15 WBC 4.5 (4.5-11.0) K/uL RBC 3.01 L (3.30-5.50) M/uL Hgb 8.2 L (12.0-15.0) g/dL Hct 26.9 L (36.0-48.0) % MCV 89 (80-98) fL MCH 27 (27-31) pg MCHC 31 L (32-36) % Plt Count 60 L (150-400) K/uL Sodium 138 L (140-148) mmol/L Potassium 4.5 (3.6-5.2) mmol/L Chloride 105 (100-108) mmol/L Carbon Dioxide 22 (21-32) mmol/L Anion Gap 15.5 H (5.0-14.0) mmol/L BUN 39 H (7-18) mg/dL Creatinine 1.3 H (0.6-1.0) mg/dL Est Cr Clr Drug Dosing 45.31 mL/min Estimated GFR (MDRD) 42 L (>60) Glucose 148 H (74-106) mg/dL Calcium 8.7 (8.5-10.1) mg/dL Phosphorus 3.1 (2.5-4.9) mg/dL Total Bilirubin 2.8 H (0.2-1.0) mg/dL AST 16 (15-37) U/L ALT 16 (12-78) U/L Alkaline Phosphatase 50 (46-116) U/L NT-Pro-B Natriuret Pep 3834 H (5-125) pg/mL Total Protein 7.3 (6.4-8.2) g/dL Albumin 3.7 (3.4-5.0) g/dL Globulin 3.6 H (2.3-3.5) g/dL Albumin/Globulin Ratio 1.0 L (1.2-2.2) Blood Type A POSITIVE Gel Antibody Screen Positive A* Antibody Identification Anti-K Crossmatch See Detail Eliud Results Last 24 Hours: Microbiology 09/08/19 19:45 Aerobic Blood Culture - Preliminary Blood - Venous - Lab Draw Anaerobic Blood Culture - Preliminary NO GROWTH AFTER 1 DAY 09/08/19 19:45 Aerobic Blood Culture - Preliminary Blood - Venous Anaerobic Blood Culture - Preliminary NO GROWTH AFTER 1 DAY Med Orders - Current: Current Medications Acetaminophen (Tylenol) 650 mg PO Q4H PRN PRN Reason: Pain (Mild 1-3)/fever Last Admin: 09/10/19 08:47 Dose: 650 mg Albuterol (Proventil Neb Soln) 2.5 mg NEB Q4H PRN PRN Reason: Shortness Of Breath/wheezing Lipase/Protease/Amylase (Gus Greer 12,000 Units) 2 cap PO TIDMEALS [facility] Last Admin: 09/10/19 07:49 Dose: 2 cap Calcium Polycarbophil (Fibercon) 1,250 mg PO QID [facility] Last Admin: 09/10/19 10:31 Dose: 1,250 mg Diphenoxylate HCl/Atropine (Lomotil 0.025-2.5 Mg) 2 tab PO Q4H [facility] Last Admin: 09/10/19 05:39 Dose: 2 tab Duloxetine HCl (Cymbalta) 60 mg PO DAILY [facility] Last Admin: 09/10/19 08:54 Dose: 60 mg Heparin Sodium (Porcine) (Heparin Lock Flush 100 Units/Ml) 500 units FLUSH ASDIRECTED PRN PRN Reason: Keep Vein Open Magnesium Sulfate 2 gm/ Premix 50 mls @ 25 mls/hr IV Q6H [facility] Stop: 09/11/19 05:29 Last Admin: 09/10/19 08:56 Dose: 25 mls/hr Dexamethasone 14 mg/ Sodium (Chloride) 53.5 mls @ 104.902 mls/hr IV Q24H [facility] Stop: 09/12/19 12:01 Last Admin: 09/09/19 13:11 Dose: 104.902 mls/hr Vancomycin HCl 1 gm/ Sodium (Chloride) 250 mls @ 166.667 mls/hr IV Q24H [facility] Last Admin: 09/09/19 21:23 Dose: 166.667 mls/hr Albumin Human (Albumin 25%) 25 gm in 100 mls @ 25 mls/hr IV DAILY [facility] Stop: 09/12/19 12:59 Last Admin: 09/10/19 08:53 Dose: 25 mls/hr Albumin Human (Albumin 25%) 25 gm in 100 mls @ 25 mls/hr IV Q24H [facility] Stop: 09/12/19 17:59 Piperacillin/Tazobactam/ (Dextrose 3.375 gm/ Premix) 50 mls @ 100 mls/hr IV Q6H [facility] Last Admin: 09/10/19 07:49 Dose: 100 mls/hr Levofloxacin/Dextrose 750 mg/ (Premix) 150 mls @ 100 mls/hr IV Q48H [facility] Fluconazole/Sodium Chloride (200 mg/ Premix) 100 mls @ 100 mls/hr IV Q24H [facility] Last Admin: 09/09/19 17:45 Dose: 100 mls/hr Lactobacillus Rhamnosus (Culturelle) 1 cap PO BID [facility] Last Admin: 09/10/19 08:54 Dose: 1 cap Loperamide HCl (Imodium) 4 mg PO Q4H [facility] Last Admin: 09/10/19 10:30 Dose: 4 mg Lorazepam (Ativan) 0.5 mg PO Q4H PRN PRN Reason: Anxiety Last Admin: 09/10/19 08:51 Dose: 0.5 mg Magnesium Hydroxide (Milk Of Magnesia) 30 ml PO Q12H PRN PRN Reason: Constipation Melatonin (Melatonin) 9 mg PO BEDTIME [facility] Last Admin: 09/09/19 21:16 Dose: 9 mg Verify Scop Patch 0 each TOP DAILY [facility] Last Admin: 09/10/19 08:55 Dose: Not Given Olanzapine (Zyprexa) 5 mg PO Q12H PRN PRN Reason: Anxiety Last Admin: 09/10/19 04:28 Dose: 5 mg Ondansetron HCl (Zofran Odt) 4 mg PO Q6H PRN PRN Reason: Nausea able to take PO Last Admin: 09/08/19 22:14 Dose: 4 mg Ondansetron HCl (Zofran) 4 mg IV Q6H PRN PRN Reason: Nausea/Vomiting Last Admin: 09/03/19 00:51 Dose: 4 mg Opium Tincture (Opium Tincture) 5 mg PO QID [facility] Last Admin: 09/10/19 10:32 Dose: 5 mg Pantoprazole Sodium (Protonix) 40 mg PO BIDAC [facility] Last Admin: 09/10/19 08:04 Dose: 40 mg Imipramine Hcl 100mg (CapPom) 0 each PO BEDTIME [facility] Last Admin: 09/09/19 21:19 Dose: 1 each Scopolamine (Transderm-Scop) 1.5 mg TRDERM Q72H [facility] Last Admin: 09/09/19 21:16 Dose: 1.5 mg Senna/Docusate Sodium (Senna Plus) 1 tab PO BID PRN PRN Reason: Constipation Sodium Chloride (Saline Flush) 10 ml FLUSH ASDIRECTED PRN PRN Reason: Keep Vein Open Last Admin: 08/31/19 17:43 Dose: 10 ml Tizanidine HCl (Zanaflex) 4 mg PO BID PRN PRN Reason: Muscle Spasm Last Admin: 09/10/19 08:48 Dose: 4 mg Tramadol HCl (Ultram) 50 mg PO Q4H PRN PRN Reason: Pain Last Admin: 09/10/19 08:46 Dose: 50 mg Discontinued Medications Diphenoxylate HCl/Atropine (Lomotil 0.025-2.5 Mg) 1 tab PO TID [facility] Last Admin: 09/05/19 14:01 Dose: Not Given Diphenoxylate HCl/Atropine (Lomotil 0.025-2.5 Mg) 2 tab PO QID [facility] Last Admin: 09/08/19 05:31 Dose: 2 tab Furosemide (Lasix) 20 mg IVPUSH ONETIME ONE Stop: 09/10/19 09:01 Last Admin: 09/10/19 10:31 Dose: 20 mg Hydromorphone HCl (Dilaudid) 0.5 mg IVPUSH ONETIME ONE Stop: 08/31/19 19:04 Last Admin: 08/31/19 19:16 Dose: 0.5 mg Hydromorphone HCl (Dilaudid) 6 mg PO Q6H PRN PRN Reason: Pain (moderate 4-6) Last Admin: 09/02/19 03:45 Dose: 6 mg Hydromorphone HCl (Dilaudid) 1 mg IVPUSH Q2H PRN PRN Reason: Pain (severe 7-10) Last Admin: 09/02/19 08:53 Dose: 1 mg Hydromorphone HCl (Dilaudid) 2 mg PO Q4H PRN PRN Reason: Pain (moderate 4-6) Last Admin: 09/02/19 16:04 Dose: 2 mg Hydromorphone HCl (Dilaudid) 4 mg PO Q4H PRN PRN Reason: Pain (moderate 4-6) Last Admin: 09/03/19 08:53 Dose: 4 mg Sodium Chloride (Normal Saline) 250 mls @ 250 mls/hr IV ASDIRECTED [facility] Last Admin: 08/31/19 17:43 Dose: 250 mls/hr Ceftriaxone Sodium 1 gm/ (Sodium Chloride) 50 mls @ 100 mls/hr IV Q24H [facility] Last Admin: 09/05/19 20:26 Dose: 100 mls/hr Magnesium Sulfate 2 gm/ Premix 50 mls @ 12.5 mls/hr IV Q6H [facility] Stop: 09/02/19 19:29 Last Admin: 09/02/19 16:58 Dose: 12.5 mls/hr Sodium Chloride (Normal Saline) 1,000 mls @ 125 [facility] Last Admin: 09/02/19 03:26 Dose: 125 mls/hr Ceftriaxone Sodium 1 gm/ (Sodium Chloride) 50 mls @ 100 mls/hr IV ONETIME ONE Stop: 08/31/19 21:44 Last Admin: 08/31/19 22:09 Dose: 100 mls/hr Lactated Ringer's (Ringers, Lactated) 1,000 mls @ 125 mls/hr IV ASDIRECTED [facility] Sodium Chloride (Normal Saline) 1,000 mls @ 125 mls/hr IV ASDIRECTED [facility] Last Admin: 09/06/19 03:09 Dose: 125 mls/hr Magnesium Sulfate 2 gm/ Premix 50 mls @ 25 mls/hr IV Q4H [facility] Stop: 09/07/19 07:59 Last Admin: 09/07/19 05:52 Dose: 25 mls/hr Albumin Human (Albumin 25%) 25 gm in 100 mls @ 25 mls/hr IV DAILY [facility] Stop: 09/09/19 12:59 Last Admin: 09/09/19 14:49 Dose: 25 mls/hr Albumin Human (Albumin 25%) 25 gm in 100 mls @ 25 mls/hr IV Q24H [facility] Stop: 09/09/19 17:59 Last Admin: 09/09/19 15:16 Dose: 25 mls/hr Sodium Chloride (Normal Saline) 1,000 mls @ 75 mls/hr IV ASDIRECTED [facility] Last Admin: 09/07/19 07:36 Dose: 75 mls/hr Piperacillin Sod/Tazobactam (Sod 3.375 gm/ Sodium Chloride) 50 mls @ 100 mls/ hr IV Q6H [facility] Last Admin: 09/09/19 02:06 Dose: 100 mls/hr Levofloxacin/Dextrose 750 mg/ (Premix) 150 mls @ 100 mls/hr IV Q24H [facility] Last Admin: 09/08/19 22:18 Dose: Not Given Levofloxacin/Dextrose 750 mg/ (Premix) 150 mls @ 100 mls/hr IV Q24H [facility] Last Admin: 09/08/19 22:57 Dose: 100 mls/hr Imipramine HCl (Imipramine Hcl) 200 mg PO BEDTIME [facility] Imipramine HCl (Imipramine Hcl) 200 mg PO ONETIME ONE Stop: 08/31/19 21:31 Last Admin: 08/31/19 22:48 Dose: Not Given Loperamide HCl (Imodium) 2 mg PO Q8H [facility] Last Admin: 09/06/19 07:38 Dose: 2 mg Loperamide HCl (Imodium) 4 mg PO Q6H [facility] Last Admin: 09/08/19 03:31 Dose: 4 mg Lorazepam (Ativan) 0.5 mg IVPUSH Q4H PRN PRN Reason: Nausea/Vomiting Last Admin: 09/02/19 18:36 Dose: 0.5 mg Calcitriol ( Calcitriol) 0.25 Mg* *Pom 0.25 mg PO DAILY [facility] Last Admin: 09/08/19 16:57 Dose: Not Given Ondansetron HCl (Zofran) 4 mg IVPUSH ONETIME ONE Stop: 08/31/19 17:44 Last Admin: 08/31/19 17:57 Dose: 4 mg Pantoprazole Sodium (Protonix) 40 mg PO ACBREAKFAST [facility] Last Admin: 09/06/19 07:38 Dose: 40 mg Pharmacy Consult (Consult To Pharmacy) 1 each .XX ASDIRECTED [facility] Stop: 09/09/19 08:00 Vancomycin HCl (Vancomycin) 1 gm IV .PHARMACY TO DOSE [facility] - Exam Quality Assessment: No: Supplemental Oxygen General: Alert, Oriented, Cooperative, No Acute Distress Lungs: Normal Respiratory Effort GI/Abdominal Exam: Soft, No Distention Extremities: No Pedal Edema Skin: Warm, Dry Psy/Mental Status: Alert, Normal Affect Sepsis Event Note - Evaluation Sepsis Screening Result: No Definite Risk - Focused Exam Vital Signs: Vital Signs Temp Pulse Resp BP Pulse Ox 09/10/19 07:00 35.3 C L 75 18 135/62 97 09/10/19 02:37 35.4 C L 64 18 106/54 L 97 Date Exam was Performed: 09/10/19 Time Exam was Performed: 14:23 - Problem List & Annotations (1) Acute kidney injury SNOMED Code(s): 68455699, 40266647 Code(s): N17.9 - ACUTE KIDNEY FAILURE, UNSPECIFIED Status: Acute Current Visit: Yes (2) Severe dehydration SNOMED Code(s): 867761909 Code(s): E86.0 - DEHYDRATION Status: Acute Current Visit: Yes (3) Nausea SNOMED Code(s): 982058236 Code(s): R11.0 - NAUSEA Status: Acute Current Visit: Yes (4) History of left nephrectomy SNOMED Code(s): 72347971815760 Code(s): Z90.5 - ACQUIRED ABSENCE OF KIDNEY Status: Chronic Current Visit : No (5) Crohn's disease SNOMED Code(s): 08549279 Code(s): K50.90 - CROHN'S DISEASE, UNSPECIFIED, WITHOUT COMPLICATIONS Status: Chronic Current Visit: No Qualifiers: Gastrointestinal tract location: unspecified location Digestive disease complication type: unspecified complication Qualified Code(s): K50.919 - Crohn 's disease, unspecified, with unspecified complications - Problem List Review Problem List Initiated/Reviewed/Updated: Yes - My Orders Last 24 Hours: My Active Orders 09/09/19 17:30 Fluconazole/Normal Saline [Diflucan in NS 200 MG/100 ML] 200 mg Premix Bag 1 bag IV Q24H 09/10/19 12:30 tiZANidine [Zanaflex] 4 mg PO Q6H PRN 09/10/19 Dinner NPO After Midnight [Nothing per Oral After Midnight Diet] [DIET] 09/11/19 04:00 LACTATE DEHYDROGENASE,LDH [CHEM] Timed RETICULOCYTE COUNT [HEME] Timed - Plan Plan:: ASSESSMENT AND PLAN Fever and bacteremia-peripheral blood cultures have gram-positive cocci growing in the Port culture is growing gram-negative rods and possibly yeast. She is on broad-spectrum antibiotics at this time. She has had several positive cultures from her port over recent months and I am concerned that there may be a colonization/infection of the port catheter. The plan is for removal of this device tomorrow morning. She will remain on broad-spectrum antibiotics until cultures are final. Initially there was concern for pneumonia but I suspect this is the source of fever and infection. 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 Incision is healing by secondary intention and appears to be doing well at this time. New difficulty with nausea and high output through the ostomy. -Management per Dr. Reno -Saline lock IV -Monitor and record ostomy output Hypomagnesemia-chronic problem with her previous colectomy. -Follow-up magnesium in a.m. Hemolytic anemia, suspected-significant problem for her in the past as well as during recent hospitalizations. 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 Reviewed with hematology on- call again, they have recommended a trial of steroids to see if there is any response. Levels are improving. -No indication for transfusion today -Decadron 14 mg IV daily x5 days -Follow-up labs in the morning Maintenance issues - - DVT prophylaxis -SCDs - GI prophylaxis -PPI - Nutrition -regular diet Disposition -anticipate discharge home after the hospital stay Rad Pedersen MD
[2019-09-10] MEDS: Fluconazole/Normal Saline 200 MG in Premix Bag 1 BAG IV SCH (17:09)
[2019-09-10] MEDS: Melatonin 3 MG Tab PO SCH ×2 (20:22→20:33)
[2019-09-10] MEDS: IMIPRAMINE HCL 100 MG PO SCH ×2 (20:22→20:33)
[2019-09-10] MEDS ORDERED: Levofloxacin/Dextrose 5%-Water 750 MG in Premix Bag 1 BAG IV SCH (23:00)
[2019-09-11] MEDS: Atropine/Diphenoxylate 0.025-2.5 MG Tab PO SCH ×6 (01:31→19:45)
[2019-09-11] MEDS: Loperamide 2 MG Cap PO SCH ×6 (01:31→21:27)
[2019-09-11] MEDS: Piperacillin/Tazobactam/Dext 3.375 GM in Premix Bag 1 BAG IV SCH ×4 (01:48→19:45)
[2019-09-11] MEDS: traMADol 50 MG Tab PO PRN ×4 (02:10→19:45)
[2019-09-11] MEDS: tiZANidine 4 MG Tab PO PRN ×3 (02:11→18:48)
[2019-09-11] MEDS: LORazepam 0.5 MG Tab PO PRN ×3 (02:11→18:48)
[2019-09-11] MEDS: Magnesium Sulfate/Water 2 GM in Premix Bag 1 BAG IV SCH (03:33)
[2019-09-11] MEDS: Calcium Polycarbophil 625 MG Tab PO SCH ×3 (05:03→15:48)
[2019-09-11] MEDS: OPIUM TINCTURE PO SCH ×4 (05:09→21:26)
[2019-09-11] MEDS ORDERED: Lidocaine 1% with EPINEPHrine 1:100,000 50 ML MDV ONE (06:31)
[2019-09-11] MEDS ORDERED: Bupivacaine 0.5% 50 ML MDV ONE (06:31)
[2019-09-11] MEDS ORDERED: Midazolam 1 MG/ML 2 ML SDV ONE (07:10)
[2019-09-11] MEDS ORDERED: fentaNYL 100 MCG/2 ML SDV ONE (07:10)
[2019-09-11] MEDS ORDERED: Propofol 200 MG/20 ML SDV ONE (07:10)
[2019-09-11] MEDS ORDERED: Lidocaine 1% 2 ML ONE (07:15)
[2019-09-11] MEDS ORDERED: Lactated Ringers 1,000 ML ONE (07:28)
[2019-09-11] MEDS: Amylase/Lipase/Protease 12,000 Unit Cap.CR PO SCH ×3 (08:51→16:49)
[2019-09-11] MEDS: Pantoprazole 40 MG Tab.CR PO SCH ×2 (08:51→15:50)
[2019-09-11] MEDS: DULoxetine 30 MG Cap PO SCH (08:52)
[2019-09-11] MEDS: Lactobacillus Rhamnosus GG (Probiotic) Cap PO SCH ×2 (08:52→21:27)
[2019-09-11] MEDS: VERIFY SCOP PATCH TOP SCH (08:54)
--- NOTE | 2019-09-11 09:08 | PN ---
DATE OF SERVICE: 09/11/2019 SUBJECTIVE: Aline is n.p.o. She will be having her port removed today. She has been afebrile. Oral intake 2080, urine output 2600, and her ostomy output was 775 for 24 hours. REVIEW OF SYSTEMS: Remainder of review of systems negative for any pertinent positives and negatives. LABORATORY DATA: Hemoglobin 7.9. Potassium is 4.7, creatinine 1.3. Her BNP is 3381. OBJECTIVE: GENERAL: Aline Foley is a 58-year-old female. She is alert and orientated. Color pale. VITAL SIGNS: TPR at 0203, 95.1; 71; 18; blood pressure 134/67. HEENT: Negative. NECK: Supple. HEART: Regular rate and rhythm. LUNGS: Clear. ABDOMEN: Dressings dry and intact. Abdominal binder is on. EXTREMITIES: Without peripheral edema. ASSESSMENT: 1. Positive cultures from port. 2. Left lower lobe infiltration. 3. Diarrhea, large amount from ostomy, improving. 4. Open abdominal incision. 5. Acute kidney injury. 6. Severe dehydration, resolved. 7. Hemolytic anemia. 8. History of left nephrectomy. 9. Crohn's disease. PLAN: 1. Referral to dietitian for oral hydrating, oral solution for small bowel syndrome. 2. Imodium. Continue same dose, but give every 6 hours instead of every 4. Lomotil, same dose, give every 6 hours instead of every 4. 3. Communication order written to get preauthorization from her insurance company, as needed, for opium tincture 5 mg p.o. q.i.d. 4. We will continue use of incentive spirometer. 5. We will evaluate p.r.n. or in a.m. Aline Landeros PA-C /[id number]
[2019-09-11] MEDS: Lactated Ringers 1,000 ML IV SCH (11:24)
--- NOTE | 2019-09-11 11:40 | PCM.PN ---
- General Info Date of Service: 09/11/19 Subjective Update: No acute event overnight. She had her port removed this morning and the tip was sent for culture. No significant pain issues at this time. No nausea. Ostomy output is slightly better again today. She has been up and walking around. No fevers. White blood cell count, hemoglobin and platelets are all stable. Kidney function stable. Functional Status: Reports: Pain Controlled - Review of Systems General: Denies: Fever - Patient Data Vitals - Most Recent: Last Vital Signs Temp 35.6 C L 09/11/19 10:45 Pulse 63 09/11/19 10:45 Resp 16 09/11/19 10:45 BP 141/64 H 09/11/19 10:45 Pulse Ox 100 09/11/19 10:45 Weight - Most Recent: 80.467 kg I&O - Last 24 Hours: Intake & Output 09/10/19 09/11/19 09/11/19 22:59 06:59 14:59 Intake Total 2595 100 250 Output Total 6942 211 3346 Balance 1320 -800 -800 Lab Results Last 24 Hours: Laboratory Results - last 24 hr 09/11/19 09/11/19 09/11/19 Range/Units 04:10 04:10 04:10 WBC 3.6 L (4.5-11.0) K/uL RBC 2.90 L (3.30-5.50) M/uL Hgb 7.9 L (12.0-15.0) g/dL Hct 26.4 L (36.0-48.0) % MCV 91 (80-98) fL MCH 27 (27-31) pg MCHC 30 L (32-36) % Plt Count 69 L (150-400) K/uL Percent Retic 1.9 H (0.5-1.5) % Sodium 138 L (140-148) mmol/L Potassium 4.7 (3.6-5.2) mmol/L Chloride 106 (100-108) mmol/L Carbon Dioxide 23 (21-32) mmol/L Anion Gap 13.7 (5.0-14.0) mmol/L BUN 31 H (7-18) mg/dL Creatinine 1.3 H (0.6-1.0) mg/dL Est Cr Clr Drug Dosing 45.31 mL/min Estimated GFR (MDRD) 42 L (>60) Glucose 144 H (74-106) mg/dL Calcium 8.5 (8.5-10.1) mg/dL Phosphorus 3.3 (2.5-4.9) mg/dL Total Bilirubin 1.4 H (0.2-1.0) mg/dL AST 9 L (15-37) U/L ALT 17 (12-78) U/L Alkaline Phosphatase 44 L (46-116) U/L Lactate Dehydrogenase 310 H (82-234) U/L NT-Pro-B Natriuret Pep 3381 H (5-125) pg/mL Total Protein 7.2 (6.4-8.2) g/dL Albumin 3.7 (3.4-5.0) g/dL Globulin 3.5 (2.3-3.5) g/dL Albumin/Globulin Ratio 1.1 L (1.2-2.2) Blood Type A POSITIVE Gel Antibody Screen Positive A* Crossmatch See Detail Eliud Results Last 24 Hours: Microbiology 09/11/19 08:02 Gram Stain - Final Other - Port-A-Cath 09/08/19 19:45 Aerobic Blood Culture - Final Blood - Venous - Lab Draw Staph Hominis Ss Hominis Anaerobic Blood Culture - Final 09/08/19 19:45 Aerobic Blood Culture - Final Blood - Venous Klebsiella Pneumonia Ss Pneumo Anaerobic Blood Culture - Preliminary NO GROWTH AFTER 2 DAYS Med Orders - Current: Current Medications Acetaminophen (Tylenol) 650 mg PO Q4H PRN PRN Reason: Pain (Mild 1-3)/fever Last Admin: 09/10/19 20:23 Dose: 650 mg Albuterol (Proventil Neb Soln) 2.5 mg NEB Q4H PRN PRN Reason: Shortness Of Breath/wheezing Lipase/Protease/Amylase (Gus Greer 12,000 Units) 2 cap PO TIDMEALS [facility] Last Admin: 09/11/19 11:23 Dose: 2 cap Calcium Polycarbophil (Fibercon) 1,250 mg PO QID [facility] Last Admin: 09/11/19 09:27 Dose: 1,250 mg Diphenoxylate HCl/Atropine (Lomotil 0.025-2.5 Mg) 2 tab PO Q6H [facility] Last Admin: 09/11/19 08:52 Dose: 2 tab Duloxetine HCl (Cymbalta) 60 mg PO DAILY [facility] Last Admin: 09/11/19 08:52 Dose: 60 mg Heparin Sodium (Porcine) (Heparin Lock Flush 100 Units/Ml) 500 units FLUSH ASDIRECTED PRN PRN Reason: Keep Vein Open Dexamethasone 14 mg/ Sodium (Chloride) 53.5 mls @ 104.902 mls/hr IV Q24H [facility] Stop: 09/12/19 12:01 Last Admin: 09/10/19 12:27 Dose: 104.902 mls/hr Albumin Human (Albumin 25%) 25 gm in 100 mls @ 25 mls/hr IV DAILY [facility] Stop: 09/12/19 12:59 Last Admin: 09/11/19 09:10 Dose: 25 mls/hr Albumin Human (Albumin 25%) 25 gm in 100 mls @ 25 mls/hr IV Q24H [facility] Stop: 09/12/19 17:59 Last Admin: 09/10/19 13:33 Dose: 25 mls/hr Piperacillin/Tazobactam/ (Dextrose 3.375 gm/ Premix) 50 mls @ 100 mls/hr IV Q6H [facility] Last Admin: 09/11/19 09:06 Dose: 100 mls/hr Fluconazole/Sodium Chloride (200 mg/ Premix) 100 mls @ 100 mls/hr IV Q24H [facility] Last Admin: 09/10/19 17:09 Dose: 100 mls/hr Lactated Ringer's (Ringers, Lactated) 1,000 mls @ 50 mls/hr IV ASDIRECTED [facility] Last Admin: 09/11/19 11:24 Dose: 50 mls/hr Lactobacillus Rhamnosus (Culturelle) 1 cap PO BID [facility] Last Admin: 09/11/19 08:52 Dose: 1 cap Loperamide HCl (Imodium) 4 mg PO Q6H [facility] Last Admin: 09/11/19 09:28 Dose: 4 mg Lorazepam (Ativan) 0.5 mg PO Q4H PRN PRN Reason: Anxiety Last Admin: 09/11/19 02:11 Dose: 0.5 mg Magnesium Hydroxide (Milk Of Magnesia) 30 ml PO Q12H PRN PRN Reason: Constipation Melatonin (Melatonin) 9 mg PO BEDTIME [facility] Last Admin: 09/10/19 20:33 Dose: Not Given Verify Scop Patch 0 each TOP DAILY [facility] Last Admin: 09/11/19 08:54 Dose: Not Given Olanzapine (Zyprexa) 5 mg PO Q12H PRN PRN Reason: Anxiety Last Admin: 09/10/19 20:23 Dose: 5 mg Ondansetron HCl (Zofran Odt) 4 mg PO Q6H PRN PRN Reason: Nausea able to take PO Last Admin: 09/08/19 22:14 Dose: 4 mg Ondansetron HCl (Zofran) 4 mg IV Q6H PRN PRN Reason: Nausea/Vomiting Last Admin: 09/03/19 00:51 Dose: 4 mg Opium Tincture (Opium Tincture) 5 mg PO QID [facility] Last Admin: 09/11/19 09:42 Dose: 5 mg Pantoprazole Sodium (Protonix) 40 mg PO BIDAC [facility] Last Admin: 09/11/19 08:51 Dose: 40 mg Imipramine Hcl 100mg (CapPom) 0 each PO BEDTIME [facility] Last Admin: 09/10/19 20:33 Dose: Not Given Scopolamine (Transderm-Scop) 1.5 mg TRDERM Q72H [facility] Last Admin: 09/09/19 21:16 Dose: 1.5 mg Senna/Docusate Sodium (Senna Plus) 1 tab PO BID PRN PRN Reason: Constipation Sodium Chloride (Saline Flush) 10 ml FLUSH ASDIRECTED PRN PRN Reason: Keep Vein Open Last Admin: 08/31/19 17:43 Dose: 10 ml Tizanidine HCl (Zanaflex) 4 mg PO Q6H PRN PRN Reason: Muscle Spasm Last Admin: 09/11/19 02:11 Dose: 4 mg Tramadol HCl (Ultram) 50 mg PO Q4H PRN PRN Reason: Pain Last Admin: 09/11/19 02:10 Dose: 50 mg Discontinued Medications Bupivacaine HCl (Marcaine 0.5%) Confirm Administered Dose 50 ml .ROUTE .STK-MED ONE Stop: 09/11/19 06:32 Last Admin: 09/11/19 08:03 Dose: 2.5 ml Diphenoxylate HCl/Atropine (Lomotil 0.025-2.5 Mg) 1 tab PO TID [facility] Last Admin: 09/05/19 14:01 Dose: Not Given Diphenoxylate HCl/Atropine (Lomotil 0.025-2.5 Mg) 2 tab PO QID [facility] Last Admin: 09/08/19 05:31 Dose: 2 tab Diphenoxylate HCl/Atropine (Lomotil 0.025-2.5 Mg) 2 tab PO Q4H [facility] Last Admin: 09/11/19 05:03 Dose: Not Given Fentanyl (Sublimaze) Confirm Administered Dose 100 mcg .ROUTE .STK-MED ONE Stop: 09/11/19 07:11 Furosemide (Lasix) 20 mg IVPUSH ONETIME ONE Stop: 09/10/19 09:01 Last Admin: 09/10/19 10:31 Dose: 20 mg Hydromorphone HCl (Dilaudid) 0.5 mg IVPUSH ONETIME ONE Stop: 08/31/19 19:04 Last Admin: 08/31/19 19:16 Dose: 0.5 mg Hydromorphone HCl (Dilaudid) 6 mg PO Q6H PRN PRN Reason: Pain (moderate 4-6) Last Admin: 09/02/19 03:45 Dose: 6 mg Hydromorphone HCl (Dilaudid) 1 mg IVPUSH Q2H PRN PRN Reason: Pain (severe 7-10) Last Admin: 09/02/19 08:53 Dose: 1 mg Hydromorphone HCl (Dilaudid) 2 mg PO Q4H PRN PRN Reason: Pain (moderate 4-6) Last Admin: 09/02/19 16:04 Dose: 2 mg Hydromorphone HCl (Dilaudid) 4 mg PO Q4H PRN PRN Reason: Pain (moderate 4-6) Last Admin: 09/03/19 08:53 Dose: 4 mg Sodium Chloride (Normal Saline) 250 mls @ 250 mls/hr IV ASDIRECTED [facility] Last Admin: 08/31/19 17:43 Dose: 250 mls/hr Ceftriaxone Sodium 1 gm/ (Sodium Chloride) 50 mls @ 100 mls/hr IV Q24H [facility] Last Admin: 09/05/19 20:26 Dose: 100 mls/hr Magnesium Sulfate 2 gm/ Premix 50 mls @ 12.5 mls/hr IV Q6H [facility] Stop: 09/02/19 19:29 Last Admin: 09/02/19 16:58 Dose: 12.5 mls/hr Sodium Chloride (Normal Saline) 1,000 mls @ 125 mls/hr IV ASDIRECTED [facility] Last Admin: 09/02/19 03:26 Dose: 125 mls/hr Ceftriaxone Sodium 1 gm/ (Sodium Chloride) 50 mls @ 100 mls/hr IV ONETIME ONE Stop: 08/31/19 21:44 Last Admin: 08/31/19 22:09 Dose: 100 mls/hr Lactated Ringer's (Ringers, Lactated) 1,000 mls @ 125 mls/hr IV ASDIRECTED [facility] Sodium Chloride (Normal Saline) 1,000 mls @ 125 mls/hr IV ASDIRECTED [facility] Last Admin: 09/06/19 03:09 Dose: 125 mls/hr Magnesium Sulfate 2 gm/ Premix 50 mls @ 25 mls/hr IV Q4H [facility] Stop: 09/07/19 07:59 Last Admin: 09/07/19 05:52 Dose: 25 mls/hr Albumin Human (Albumin 25%) 25 gm in 100 mls @ 25 mls/hr IV DAILY [facility] Stop: 09/09/19 12:59 Last Admin: 09/09/19 14:49 Dose: 25 mls/hr Albumin Human (Albumin 25%) 25 gm in 100 mls @ 25 mls/hr IV Q24H [facility] Stop: 09/09/19 17:59 Last Admin: 09/09/19 15:16 Dose: 25 mls/hr Sodium Chloride (Normal Saline) 1,000 mls @ 75 mls/hr IV ASDIRECTED [facility] Last Admin: 09/07/19 07:36 Dose: 75 mls/hr Magnesium Sulfate 2 gm/ Premix 50 mls @ 25 mls/hr IV Q6H [facility] Stop: 09/11/19 05:29 Last Admin: 09/11/19 03:33 Dose: 25 mls/hr Piperacillin Sod/Tazobactam (Sod 3.375 gm/ Sodium Chloride) 50 mls @ 100 mls/ hr IV Q6H [facility] Last Admin: 09/09/19 02:06 Dose: 100 mls/hr Vancomycin HCl 1 gm/ Sodium (Chloride) 250 mls @ 166.667 mls/hr IV Q24H [facility] Last Admin: 06/02/20 20:33 Dose: 166.667 mls/hr Levofloxacin/Dextrose 750 mg/ (Premix) 150 mls @ 100 mls/hr IV Q24H [facility] Last Admin: 09/08/19 22:18 Dose: Not Given Levofloxacin/Dextrose 750 mg/ (Premix) 150 mls @ 100 mls/hr IV Q24H [facility] Last Admin: 09/08/19 22:57 Dose: 100 mls/hr Levofloxacin/Dextrose 750 mg/ (Premix) 150 mls @ 100 mls/hr IV Q48H [facility] Last Admin: 09/11/19 00:17 Dose: 100 mls/hr Lidocaine HCl (Xylocaine-Mpf 1%) Confirm Administered Dose 2 mls @ as directed .ROUTE .ST-MED ONE Stop: 09/11/19 07:16 Lactated Ringer's (Ringers, Lactated) Confirm Administered Dose 1,000 mls @ as directed .ROUTE .ST-MED ONE Stop: 09/11/19 07:29 Imipramine HCl (Imipramine Hcl) 200 mg PO BEDTIME [facility] Imipramine HCl (Imipramine Hcl) 200 mg PO ONETIME ONE Stop: 08/31/19 21:31 Last Admin: 08/31/19 22:48 Dose: Not Given Lidocaine/Epinephrine (Xylocaine 1% With Epinephrine 1:100,000) Confirm Administered Dose 50 ml .ROUTE .STK-MED ONE Stop: 09/11/19 06:32 Last Admin: 09/11/19 08:03 Dose: 2.5 ml Loperamide HCl (Imodium) 2 mg PO Q8H [facility] Last Admin: 09/06/19 07:38 Dose: 2 mg Loperamide HCl (Imodium) 4 mg PO Q6H [facility] Last Admin: 09/08/19 03:31 Dose: 4 mg Loperamide HCl (Imodium) 4 mg PO Q4H [facility] Last Admin: 09/11/19 05:03 Dose: Not Given Lorazepam (Ativan) 0.5 mg IVPUSH Q4H PRN PRN Reason: Nausea/Vomiting Last Admin: 09/02/19 18:36 Dose: 0.5 mg Midazolam HCl (Versed 1 Mg/Ml) Confirm Administered Dose 2 mg .ROUTE .STK-MED ONE Stop: 09/11/19 07:11 Calcitriol ( Calcitriol) 0.25 Mg* *Pom 0.25 mg PO DAILY [facility] Last Admin: 09/08/19 16:57 Dose: Not Given Ondansetron HCl (Zofran) 4 mg IVPUSH ONETIME ONE Stop: 08/31/19 17:44 Last Admin: 08/31/19 17:57 Dose: 4 mg Pantoprazole Sodium (Protonix) 40 mg PO ACBREAKFAST [facility] Last Admin: 09/06/19 07:38 Dose: 40 mg Pharmacy Consult (Consult To Pharmacy) 1 each .XX ASDIRECTED [facility] Stop: 09/09/19 08:00 Propofol (Diprivan 20 Ml) Confirm Administered Dose 200 mg .ROUTE .STK-MED ONE Stop: 09/11/19 07:11 Tizanidine HCl (Zanaflex) 4 mg PO BID PRN PRN Reason: Muscle Spasm Last Admin: 09/10/19 08:48 Dose: 4 mg Vancomycin HCl (Vancomycin) 1 gm IV .PHARMACY TO DOSE [facility] - Exam Quality Assessment: No: Supplemental Oxygen General: Alert, Oriented, Cooperative, No Acute Distress Lungs: Normal Respiratory Effort GI/Abdominal Exam: Soft, No Distention Extremities: No Pedal Edema Psy/Mental Status: Alert, Normal Affect Sepsis Event Note - Evaluation Sepsis Screening Result: No Definite Risk - Focused Exam Vital Signs: Vital Signs Temp Temp Pulse Pulse Resp BP BP 09/11/19 10:45 35.6 C L 63 16 141/64 H 09/11/19 09:30 35.6 C L 59 L 14 143/59 H 09/11/19 09:00 35.6 C L 60 14 136/62 09/11/19 08:45 96.6 C H 58 L 14 125/69 09/11/19 08:30 35.9 C L 67 15 126/41 L 09/11/19 08:17 35.9 C L 58 L 16 132/54 L 09/11/19 08:05 36.2 C 64 14 140/69 09/11/19 08:00 62 14 136/66 09/11/19 07:55 64 14 144/78 H 09/11/19 07:50 60 14 137/68 09/11/19 07:45 36 C L 66 14 131/64 09/11/19 02:03 35.1 C L 71 18 134/67 Pulse Ox 09/11/19 10:45 100 06/03/20 09:30 97 09/11/19 09:00 98 09/11/19 08:45 98 09/11/19 08:30 95 09/11/19 08:17 97 09/11/19 08:05 95 09/11/19 08:00 95 09/11/19 07:55 98 09/11/19 07:50 98 09/11/19 07:45 98 09/11/19 02:03 98 Date Exam was Performed: 09/11/19 Time Exam was Performed: 14:21 - Problem List & Annotations (1) Acute kidney injury SNOMED Code(s): 81158672, 40030451 Code(s): N17.9 - ACUTE KIDNEY FAILURE, UNSPECIFIED Status: Acute Current Visit: Yes (2) Severe dehydration SNOMED Code(s): 255496759 Code(s): E86.0 - DEHYDRATION Status: Acute Current Visit: Yes (3) Nausea SNOMED Code(s): 265757878 Code(s): R11.0 - NAUSEA Status: Acute Current Visit: Yes (4) History of left nephrectomy SNOMED Code(s): 38420429673833 Code(s): Z90.5 - ACQUIRED ABSENCE OF KIDNEY Status: Chronic Current Visit : No (5) Crohn's disease SNOMED Code(s): 05337321 Code(s): K50.90 - CROHN'S DISEASE, UNSPECIFIED, WITHOUT COMPLICATIONS Status: Chronic Current Visit: No Qualifiers: Gastrointestinal tract location: unspecified location Digestive disease complication type: unspecified complication Qualified Code(s): K50.919 - Crohn 's disease, unspecified, with unspecified complications - Problem List Review Problem List Initiated/Reviewed/Updated: Yes - My Orders Last 24 Hours: My Active Orders 09/10/19 12:30 tiZANidine [Zanaflex] 4 mg PO Q6H PRN 09/11/19 04:10 ANTIBODY IDENTIFICATION [BBK] Routine RED BLOOD CELLS LP [BBK] Routine TYPE AND SCREEN [BBK] Routine 09/12/19 04:00 CULTURE BLOOD [BC] Timed - Plan Plan:: ASSESSMENT AND PLAN Fever and bacteremia-peripheral blood culture grew out staph hominis which I suspect is a contaminant. Her port culture grew out Klebsiella which is similar to previous positive blood cultures from her port and there were some fungal elements seen though no fungus has been identified on culture as of yet. Her port has been removed but I am concerned this may have been the source of infection and potentially a smoldering sepsis-like picture. 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 Incision is healing by secondary intention and appears to be doing well at this time. Symptoms are improving and intake is improving. -Management per Dr. Reno -Saline lock IV -Monitor and record ostomy output Hypomagnesemia-chronic problem with her previous colectomy. -Follow-up magnesium in a.m. Hemolytic anemia, suspected-significant problem for her in the past as well as during recent hospitalizations. Thought be secondary to chronic anemia as well as hemolytic anemia secondary to splenomegaly versus smoldering sepsis-like picture. Reviewed with hematology on-call again, they have recommended a trial of steroids to see if there is any response. Levels are stable but not dramatically improved. I do not believe she is responding very well to steroids. -No indication for transfusion today -Decadron 14 mg IV daily x5 days then stop -Follow-up labs in the morning Maintenance issues - - DVT prophylaxis -SCDs - GI prophylaxis -PPI - Nutrition -regular diet Disposition -anticipate discharge home after the hospital stay Rad Pedersen MD
[2019-09-11] MEDS: Fluconazole/Normal Saline 200 MG in Premix Bag 1 BAG IV SCH (18:36)
[2019-09-11] MEDS: Melatonin 3 MG Tab PO SCH (21:27)
[2019-09-11] MEDS: IMIPRAMINE HCL 100 MG PO SCH (21:27)
[2019-09-11] MEDS: OLANZapine 5 MG Tab PO PRN (21:32)
[2019-09-12] MEDS: LORazepam 0.5 MG Tab PO PRN ×4 (01:08→20:06)
[2019-09-12] MEDS: Calcium Polycarbophil 625 MG Tab PO SCH ×5 (01:08→22:06)
[2019-09-12] MEDS: Atropine/Diphenoxylate 0.025-2.5 MG Tab PO SCH ×4 (01:08→20:13)
[2019-09-12] MEDS: Piperacillin/Tazobactam/Dext 3.375 GM in Premix Bag 1 BAG IV SCH ×4 (01:08→20:03)
[2019-09-12] MEDS: traMADol 50 MG Tab PO PRN ×4 (01:09→20:06)
[2019-09-12] MEDS: Loperamide 2 MG Cap PO SCH ×4 (04:37→22:05)
[2019-09-12] MEDS: OPIUM TINCTURE PO SCH ×4 (05:21→22:16)
[2019-09-12] MEDS: Pantoprazole 40 MG Tab.CR PO SCH ×2 (07:33→15:57)
[2019-09-12] MEDS: Amylase/Lipase/Protease 12,000 Unit Cap.CR PO SCH ×3 (07:33→16:00)
[2019-09-12] MEDS: Lactated Ringers 1,000 ML IV SCH (07:38)
[2019-09-12] MEDS: DULoxetine 30 MG Cap PO SCH (08:54)
[2019-09-12] MEDS: Lactobacillus Rhamnosus GG (Probiotic) Cap PO SCH ×2 (08:54→20:14)
[2019-09-12] MEDS: VERIFY SCOP PATCH TOP SCH (09:05)
[2019-09-12] MEDS: tiZANidine 4 MG Tab PO PRN ×3 (09:11→22:08)
--- NOTE | 2019-09-12 11:17 | PN ---
DATE OF SERVICE: 09/12/2019 SUBJECTIVE: Aline is up ambulating, afebrile, feeling better. She has had oral intake of 1480, urine output 2250, and ostomy output 1100. REVIEW OF SYSTEMS: Remainder of review of systems negative for any pertinent positives and negatives. OBJECTIVE: GENERAL: Aline Foley is a 58-year-old female, alert, orientated VITAL SIGNS: TPR at 0727 at 95.5, 72, 16. Blood pressure 144/72. HEENT: Negative. NECK: Supple. HEART: Regular rate and rhythm. LUNGS: Clear. ABDOMEN: Dressing dry and intact. Abdominal binder is on. EXTREMITIES: Without peripheral edema. ASSESSMENT: 1. Port removal, 09/11/2019, Shamar Reno, Surgeon. 2. Positive cultures from port. 3. Left lower lobe infiltration. 4. Diarrhea, large amount from ostomy, improving. 5. Open abdominal incision. 6. Acute kidney injury. 7. Severe dehydration, resolved. 8. Hemolytic anemia. 9. History of left nephrectomy. 10.Crohn's disease. PLAN: 1. Check CBC, CMP, phos, BNP, and magnesium in the morning. 2. 1 L of oral hydrating solution daily. 3. Accurate intake and output. 4. Remove dressing from port removal. 5. Continue use of incentive spirometer and ambulation. 6. We will evaluate p.r.n. or in a.m. Aline Landeros PA-C /[id number]
--- NOTE | 2019-09-12 11:57 | PCM.PN ---
- General Info Date of Service: 09/12/19 Subjective Update: No acute events overnight. Pain has been well controlled with the increase in the tramadol. She has been up and walking around. Appetite and oral intake have been improving. No fevers. Port was removed successfully yesterday. Cultures negative so far. Labs are stable. Feeling better each day. Functional Status: Reports: Pain Controlled, Tolerating Diet - Review of Systems General: Denies: Fever - Patient Data Vitals - Most Recent: Last Vital Signs Temp 36.1 C 09/12/19 10:41 Pulse 67 09/12/19 10:41 Resp 16 09/12/19 10:41 BP 139/70 09/12/19 10:41 Pulse Ox 97 09/12/19 10:41 Weight - Most Recent: 80.558 kg I&O - Last 24 Hours: Intake & Output 09/11/19 09/12/19 09/12/19 22:59 06:59 14:59 Intake Total 1133 400 290 Output Total 950 850 750 Balance 183 450 -460 Lab Results Last 24 Hours: Laboratory Results - last 24 hr 09/12/19 09/12/19 Range/Units 04:39 04:39 WBC 2.8 L (4.5-11.0) K/uL RBC 3.01 L (3.30-5.50) M/uL Hgb 8.1 L (12.0-15.0) g/dL Hct 27.9 L (36.0-48.0) % MCV 93 (80-98) fL MCH 27 (27-31) pg MCHC 29 L (32-36) % Plt Count 82 L (150-400) K/uL Sodium 140 (140-148) mmol/L Potassium 4.5 (3.6-5.2) mmol/L Chloride 106 (100-108) mmol/L Carbon Dioxide 23 (21-32) mmol/L Anion Gap 10.6 (5.0-14.0) mmol/L BUN 28 H (7-18) mg/dL Creatinine 1.2 H (0.6-1.0) mg/dL Est Cr Clr Drug Dosing 49.09 mL/min Estimated GFR (MDRD) 46 L (>60) Glucose 151 H (74-106) mg/dL Calcium 8.9 (8.5-10.1) mg/dL Phosphorus 3.1 (2.5-4.9) mg/dL Magnesium 2.0 D (1.8-2.4) mg/dL Total Bilirubin 1.2 H (0.2-1.0) mg/dL AST 9 L (15-37) U/L ALT 17 (12-78) U/L Alkaline Phosphatase 52 (46-116) U/L Total Protein 7.4 (6.4-8.2) g/dL Albumin 4.1 (3.4-5.0) g/dL Globulin 3.3 (2.3-3.5) g/dL Albumin/Globulin Ratio 1.2 (1.2-2.2) Eliud Results Last 24 Hours: Microbiology 09/11/19 08:02 Anaerobic Culture - Preliminary Other - Port-A-Cath NO GROWTH AFTER 1 DAY 09/11/19 08:02 Gram Stain - Final Other - Port-A-Cath Wound Culture - Preliminary NO GROWTH AFTER 1 DAY 09/08/19 19:45 Aerobic Blood Culture - Final Blood - Venous Klebsiella Pneumonia Ss Pneumo Anaerobic Blood Culture - Preliminary NO GROWTH AFTER 3 DAYS Med Orders - Current: Current Medications Acetaminophen (Tylenol) 650 mg PO Q4H PRN PRN Reason: Pain (Mild 1-3)/fever Last Admin: 09/10/19 20:23 Dose: 650 mg Albuterol (Proventil Neb Soln) 2.5 mg NEB Q4H PRN PRN Reason: Shortness Of Breath/wheezing Lipase/Protease/Amylase (Creon Dr 12,000 Units) 2 cap PO TIDMEALS [facility] Last Admin: 09/12/19 11:08 Dose: 2 cap Calcium Polycarbophil (Fibercon) 1,250 mg PO QID [facility] Last Admin: 09/12/19 09:09 Dose: 1,250 mg Diphenoxylate HCl/Atropine (Lomotil 0.025-2.5 Mg) 2 tab PO Q6H [facility] Last Admin: 09/12/19 07:37 Dose: 2 tab Duloxetine HCl (Cymbalta) 60 mg PO DAILY [facility] Last Admin: 09/12/19 08:54 Dose: 60 mg Heparin Sodium (Porcine) (Heparin Lock Flush 100 Units/Ml) 500 units FLUSH ASDIRECTED PRN PRN Reason: Keep Vein Open Dexamethasone 14 mg/ Sodium (Chloride) 53.5 mls @ 104.902 mls/hr IV Q24H [facility] Stop: 09/12/19 12:01 Last Admin: 09/11/19 12:06 Dose: 104.902 mls/hr Albumin Human (Albumin 25%) 25 gm in 100 mls @ 25 mls/hr IV DAILY [facility] Stop: 09/12/19 12:59 Last Admin: 09/12/19 08:53 Dose: 25 mls/hr Albumin Human (Albumin 25%) 25 gm in 100 mls @ 25 mls/hr IV Q24H [facility] Stop: 09/12/19 17:59 Last Admin: 09/11/19 14:30 Dose: 25 mls/hr Piperacillin/Tazobactam/ (Dextrose 3.375 gm/ Premix) 50 mls @ 100 mls/hr IV Q6H [facility] Last Admin: 09/12/19 07:39 Dose: 100 mls/hr Fluconazole/Sodium Chloride (200 mg/ Premix) 100 mls @ 100 mls/hr IV Q24H [facility] Last Admin: 09/11/19 18:36 Dose: 100 mls/hr Lactated Ringer's (Ringers, Lactated) 1,000 mls @ 50 mls/hr IV ASDIRECTED [facility] Last Admin: 09/12/19 07:38 Dose: 50 mls/hr Lactobacillus Rhamnosus (Culturelle) 1 cap PO BID [facility] Last Admin: 09/12/19 08:54 Dose: 1 cap Loperamide HCl (Imodium) 4 mg PO Q6H [facility] Last Admin: 09/12/19 09:10 Dose: 4 mg Lorazepam (Ativan) 0.5 mg PO Q4H PRN PRN Reason: Anxiety Last Admin: 09/12/19 09:11 Dose: 0.5 mg Melatonin (Melatonin) 9 mg PO BEDTIME [facility] Last Admin: 09/11/19 21:27 Dose: 9 mg Verify Scop Patch 0 each TOP DAILY [facility] Last Admin: 09/12/19 09:05 Dose: Not Given Olanzapine (Zyprexa) 5 mg PO Q12H PRN PRN Reason: Anxiety Last Admin: 09/11/19 21:32 Dose: 5 mg Ondansetron HCl (Zofran Odt) 4 mg PO Q6H PRN PRN Reason: Nausea able to take PO Last Admin: 09/08/19 22:14 Dose: 4 mg Ondansetron HCl (Zofran) 4 mg IV Q6H PRN PRN Reason: Nausea/Vomiting Last Admin: 09/03/19 00:51 Dose: 4 mg Opium Tincture (Opium Tincture) 5 mg PO QID [facility] Last Admin: 09/12/19 09:10 Dose: 5 mg Pantoprazole Sodium (Protonix) 40 mg PO BIDAC [facility] Last Admin: 09/12/19 07:33 Dose: 40 mg Imipramine Hcl 100mg (CapPom) 0 each PO BEDTIME [facility] Last Admin: 09/11/19 21:27 Dose: 2 each Scopolamine (Transderm-Scop) 1.5 mg TRDERM Q72H [facility] Last Admin: 09/09/19 21:16 Dose: 1.5 mg Senna/Docusate Sodium (Senna Plus) 1 tab PO BID PRN PRN Reason: Constipation Sodium Chloride (Saline Flush) 10 ml FLUSH ASDIRECTED PRN PRN Reason: Keep Vein Open Last Admin: 08/31/19 17:43 Dose: 10 ml Tizanidine HCl (Zanaflex) 4 mg PO Q6H PRN PRN Reason: Muscle Spasm Last Admin: 09/12/19 09:11 Dose: 4 mg Tramadol HCl (Ultram) 100 mg PO Q4H PRN PRN Reason: Pain Last Admin: 09/12/19 09:11 Dose: 100 mg Discontinued Medications Bupivacaine HCl (Marcaine 0.5%) Confirm Administered Dose 50 ml .ROUTE .STK-MED ONE Stop: 09/11/19 06:32 Last Admin: 09/11/19 08:03 Dose: 2.5 ml Diphenoxylate HCl/Atropine (Lomotil 0.025-2.5 Mg) 1 tab PO TID [facility] Last Admin: 09/05/19 14:01 Dose: Not Given Diphenoxylate HCl/Atropine (Lomotil 0.025-2.5 Mg) 2 tab PO QID [facility] Last Admin: 09/08/19 05:31 Dose: 2 tab Diphenoxylate HCl/Atropine (Lomotil 0.025-2.5 Mg) 2 tab PO Q4H [facility] Last Admin: 09/11/19 05:03 Dose: Not Given Fentanyl (Sublimaze) Confirm Administered Dose 100 mcg .ROUTE .STK-MED ONE Stop: 09/11/19 07:11 Furosemide (Lasix) 20 mg IVPUSH ONETIME ONE Stop: 09/10/19 09:01 Last Admin: 09/10/19 10:31 Dose: 20 mg Hydromorphone HCl (Dilaudid) 0.5 mg IVPUSH ONETIME ONE Stop: 08/31/19 19:04 Last Admin: 08/31/19 19:16 Dose: 0.5 mg Hydromorphone HCl (Dilaudid) 6 mg PO Q6H PRN PRN Reason: Pain (moderate 4-6) Last Admin: 09/02/19 03:45 Dose: 6 mg Hydromorphone HCl (Dilaudid) 1 mg IVPUSH Q2H PRN PRN Reason: Pain (severe 7-10) Last Admin: 09/02/19 08:53 Dose: 1 mg Hydromorphone HCl (Dilaudid) 2 mg PO Q4H PRN PRN Reason: Pain (moderate 4-6) Last Admin: 09/02/19 16:04 Dose: 2 mg Hydromorphone HCl (Dilaudid) 4 mg PO Q4H PRN PRN Reason: Pain (moderate 4-6) Last Admin: 09/03/19 08:53 Dose: 4 mg Sodium Chloride (Normal Saline) 250 mls @ 250 mls/hr IV ASDIRECTED [facility] Last Admin: 08/31/19 17:43 Dose: 250 mls/hr Ceftriaxone Sodium 1 gm/ (Sodium Chloride) 50 mls @ 100 mls/hr IV Q24H [facility] Last Admin: 09/05/19 20:26 Dose: 100 mls/hr Magnesium Sulfate 2 gm/ Premix 50 mls @ 12.5 mls/hr IV Q6H [facility] Stop: 09/02/19 19:29 Last Admin: 09/02/19 16:58 Dose: 12.5 mls/hr Sodium Chloride (Normal Saline) 1,000 mls @ 125 mls/hr IV ASDIRECTED [facility] Last Admin: 09/02/19 03:26 Dose: 125 mls/hr Ceftriaxone Sodium 1 gm/ (Sodium Chloride) 50 mls @ 100 mls/hr IV ONETIME ONE Stop: 08/31/19 21:44 Last Admin: 08/31/19 22:09 Dose: 100 mls/hr Lactated Ringer's (Ringers, Lactated) 1,000 mls @ 125 mls/hr IV ASDIRECTED [facility] Sodium Chloride (Normal Saline) 1,000 mls @ 125 mls/hr IV ASDIRECTED [facility] Last Admin: 09/06/19 03:09 Dose: 125 mls/hr Magnesium Sulfate 2 gm/ Premix 50 mls @ 25 mls/hr IV Q4H [facility] Stop: 09/07/19 07:59 Last Admin: 09/07/19 05:52 Dose: 25 mls/hr Albumin Human (Albumin 25%) 25 gm in 100 mls @ 25 mls/hr IV DAILY [facility] Stop: 09/09/19 12:59 Last Admin: 09/09/19 14:49 Dose: 25 mls/hr Albumin Human (Albumin 25%) 25 gm in 100 mls @ 25 mls/hr IV Q24H [facility] Stop: 09/09/19 17:59 Last Admin: 09/09/19 15:16 Dose: 25 mls/hr Sodium Chloride (Normal Saline) 1,000 mls @ 75 mls/hr IV ASDIRECTED [facility] Last Admin: 09/07/19 07:36 Dose: 75 mls/hr Magnesium Sulfate 2 gm/ Premix 50 mls @ 25 mls/hr IV Q6H [facility] Stop: 09/11/19 05:29 Last Admin: 09/11/19 03:33 Dose: 25 mls/hr Piperacillin Sod/Tazobactam (Sod 3.375 gm/ Sodium Chloride) 50 mls @ 100 mls/ hr IV Q6H [facility] Last Admin: 09/09/19 02:06 Dose: 100 mls/hr Vancomycin HCl 1 gm/ Sodium (Chloride) 250 mls @ 166.667 mls/hr IV Q24H [facility] Last Admin: 09/10/19 20:33 Dose: 166.667 mls/hr Levofloxacin/Dextrose 750 mg/ (Premix) 150 mls @ 100 mls/hr IV Q24H [facility] Last Admin: 09/08/19 22:18 Dose: Not Given Levofloxacin/Dextrose 750 mg/ (Premix) 150 mls @ 100 mls/hr IV Q24H [facility] Last Admin: 09/08/19 22:57 Dose: 100 mls/hr Levofloxacin/Dextrose 750 mg/ (Premix) 150 mls @ 100 mls/hr IV Q48H [facility] Last Admin: 09/11/19 00:17 Dose: 100 mls/hr Lidocaine HCl (Xylocaine-Mpf 1%) Confirm Administered Dose 2 mls @ as directed .ROUTE .[facility]-MED ONE Stop: 09/11/19 07:16 Lactated Ringer's (Ringers, Lactated) Confirm Administered Dose 1,000 mls @ as directed .ROUTE .[facility] ONE Stop: 09/11/19 07:29 Imipramine HCl (Imipramine Hcl) 200 mg PO BEDTIME [facility] Imipramine HCl (Imipramine Hcl) 200 mg PO ONETIME ONE Stop: 08/31/19 21:31 Last Admin: 08/31/19 22:48 Dose: Not Given Lidocaine/Epinephrine (Xylocaine 1% With Epinephrine 1:100,000) Confirm Administered Dose 50 ml .ROUTE .[facility] ONE Stop: 09/11/19 06:32 Last Admin: 09/11/19 08:03 Dose: 2.5 ml Loperamide HCl (Imodium) 2 mg PO Q8H [facility] Last Admin: 09/06/19 07:38 Dose: 2 mg Loperamide HCl (Imodium) 4 mg PO Q6H [facility] Last Admin: 09/08/19 03:31 Dose: 4 mg Loperamide HCl (Imodium) 4 mg PO Q4H [facility] Last Admin: 09/11/19 05:03 Dose: Not Given Lorazepam (Ativan) 0.5 mg IVPUSH Q4H PRN PRN Reason: Nausea/Vomiting Last Admin: 09/02/19 18:36 Dose: 0.5 mg Magnesium Hydroxide (Milk Of Magnesia) 30 ml PO Q12H PRN PRN Reason: Constipation Midazolam HCl (Versed 1 Mg/Ml) Confirm Administered Dose 2 mg .ROUTE .[facility]-MED ONE Stop: 09/11/19 07:11 Calcitriol ( Calcitriol) 0.25 Mg* *Pom 0.25 mg PO DAILY [facility] Last Admin: 09/08/19 16:57 Dose: Not Given Ondansetron HCl (Zofran) 4 mg IVPUSH ONETIME ONE Stop: 08/31/19 17:44 Last Admin: 08/31/19 17:57 Dose: 4 mg Pantoprazole Sodium (Protonix) 40 mg PO ACBREAKFAST [facility] Last Admin: 09/06/19 07:38 Dose: 40 mg Pharmacy Consult (Consult To Pharmacy) 1 each .XX ASDIRECTED [facility] Stop: 09/09/19 08:00 Propofol (Diprivan 20 Ml) Confirm Administered Dose 200 mg .ROUTE .STK-MED ONE Stop: 09/11/19 07:11 Tizanidine HCl (Zanaflex) 4 mg PO BID PRN PRN Reason: Muscle Spasm Last Admin: 09/10/19 08:48 Dose: 4 mg Tramadol HCl (Ultram) 50 mg PO Q4H PRN PRN Reason: Pain Last Admin: 09/11/19 02:10 Dose: 50 mg Vancomycin HCl (Vancomycin) 1 gm IV .PHARMACY TO DOSE [facility] - Exam Quality Assessment: No: Supplemental Oxygen General: Alert, Oriented, Cooperative, No Acute Distress Lungs: Normal Respiratory Effort GI/Abdominal Exam: Soft, No Distention Extremities: No Pedal Edema Psy/Mental Status: Alert, Normal Affect Sepsis Event Note - Evaluation Sepsis Screening Result: Severe Sepsis Risk - Focused Exam Vital Signs: Vital Signs Temp Pulse Resp BP Pulse Ox 09/12/19 10:41 36.1 C 67 16 139/70 97 09/12/19 07:27 35.3 C L 72 16 144/72 H 99 09/12/19 02:03 35.6 C L 65 16 151/68 H 99 Date Exam was Performed: 09/12/19 Time Exam was Performed: 13:45 - Problem List & Annotations (1) Acute kidney injury SNOMED Code(s): 07868467, 54267592 Code(s): N17.9 - ACUTE KIDNEY FAILURE, UNSPECIFIED Status: Acute Current Visit: Yes (2) Severe dehydration SNOMED Code(s): 886812965 Code(s): E86.0 - DEHYDRATION Status: Acute Current Visit: Yes (3) Nausea SNOMED Code(s): 134044692 Code(s): R11.0 - NAUSEA Status: Acute Current Visit: Yes (4) History of left nephrectomy SNOMED Code(s): 57805632872484 Code(s): Z90.5 - ACQUIRED ABSENCE OF KIDNEY Status: Chronic Current Visit : No (5) Crohn's disease SNOMED Code(s): 68872550 Code(s): K50.90 - CROHN'S DISEASE, UNSPECIFIED, WITHOUT COMPLICATIONS Status: Chronic Current Visit: No Qualifiers: Gastrointestinal tract location: unspecified location Digestive disease complication type: unspecified complication Qualified Code(s): K50.919 - Crohn 's disease, unspecified, with unspecified complications - Problem List Review Problem List Initiated/Reviewed/Updated: Yes - My Orders Last 24 Hours: My Active Orders 09/11/19 11:45 traMADol [Ultram] 100 mg PO Q4H PRN 09/12/19 04:39 CULTURE BLOOD [BC] Routine - Plan Plan:: ASSESSMENT AND PLAN Fever and bacteremia-peripheral blood culture grew out staph hominis which I suspect is a contaminant. Her port culture grew out Klebsiella and fungal elements were thought to be seen. Port was removed on 09/10. Clinically doing well. No fevers. Follow-up cultures are pending. 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 Incision is healing by secondary intention and appears to be doing well at this time. Symptoms are improving and intake is improving. -Management per Dr. Reno -Saline lock IV -Monitor and record ostomy output Hypomagnesemia-chronic problem with her previous colectomy but doing well with recent supplementation.. Hemolytic anemia, suspected-significant problem for her in the past as well as during recent hospitalizations. Thought be secondary to chronic anemia as well as hemolytic anemia secondary to splenomegaly versus smoldering sepsis-like picture. Reviewed with hematology on-call again, they have recommended a trial of steroids to see if there is any response. Levels are stable. I do not believe she is responding very well to steroids and the 5-day burst will be complete today. -No indication for transfusion today -Decadron 14 mg IV daily x5 days then stop (today is day 5) -Follow-up labs in the morning Maintenance issues - - DVT prophylaxis -SCDs - GI prophylaxis -PPI - Nutrition -regular diet Disposition -anticipate discharge home after the hospital stay Rad Pedersen MD
[2019-09-12] MEDS: Fluconazole/Normal Saline 200 MG in Premix Bag 1 BAG IV SCH (18:15)
[2019-09-12] MEDS: Melatonin 3 MG Tab PO SCH (20:13)
[2019-09-12] MEDS: IMIPRAMINE HCL 100 MG PO SCH (20:14)
[2019-09-12] MEDS: Scopolamine 1.5 MG Transdermal Patch TRDERM SCH (20:16)
[2019-09-12] MEDS: OLANZapine 5 MG Tab PO PRN (22:06)
[2019-09-13] MEDS: traMADol 50 MG Tab PO PRN ×5 (00:04→22:47)
[2019-09-13] MEDS: LORazepam 0.5 MG Tab PO PRN ×5 (00:04→22:47)
[2019-09-13] MEDS: Piperacillin/Tazobactam/Dext 3.375 GM in Premix Bag 1 BAG IV SCH ×4 (01:55→20:57)
[2019-09-13] MEDS: Atropine/Diphenoxylate 0.025-2.5 MG Tab PO SCH ×4 (01:56→20:58)
[2019-09-13] MEDS: OPIUM TINCTURE PO SCH ×4 (05:00→21:06)
[2019-09-13] MEDS: Calcium Polycarbophil 625 MG Tab PO SCH ×4 (05:00→21:01)
[2019-09-13] MEDS: Loperamide 2 MG Cap PO SCH ×4 (05:01→21:01)
[2019-09-13] MEDS: tiZANidine 4 MG Tab PO PRN ×3 (05:07→21:06)
[2019-09-13] MEDS ORDERED: Furosemide 20 MG/2 ML VIAL IVPUSH SCH (08:00)
[2019-09-13] MEDS: Amylase/Lipase/Protease 12,000 Unit Cap.CR PO SCH ×3 (08:14→16:23)
[2019-09-13] MEDS: Pantoprazole 40 MG Tab.CR PO SCH ×2 (08:14→15:37)
[2019-09-13] MEDS: Magnesium Sulfate/Water 2 GM in Premix Bag 1 BAG IV SCH ×3 (08:19→21:00)
[2019-09-13] MEDS: DULoxetine 30 MG Cap PO SCH (08:19)
[2019-09-13] MEDS: Lactobacillus Rhamnosus GG (Probiotic) Cap PO SCH ×2 (08:19→21:00)
[2019-09-13] MEDS: VERIFY SCOP PATCH TOP SCH (08:20)
--- NOTE | 2019-09-13 10:23 | PN ---
DATE OF SERVICE: 09/13/2019 SUBJECTIVE: Aline is feeling better. Vital signs have been stable. Oral intake 2030, urine output 2350, ostomy output 1350. LABORATORY DATA: Hemoglobin 8.5, potassium is 5, magnesium 1.6, and BNP is 8364. REVIEW OF SYSTEMS: Remainder of review of systems negative for any pertinent positives and negatives. OBJECTIVE: GENERAL: Aline Foley is a pleasant 58-year-old female. VITAL SIGNS: TPR at 0705; 95, 65, 16, blood pressure 107/91. HEENT: Negative. NECK: Supple. HEART: Regular rate and rhythm. LUNGS: Clear. ABDOMEN: Dressings dry and intact. Abdominal binder is on. EXTREMITIES: Without peripheral edema. ASSESSMENT: 1. Port removal, 09/11/2019; Shamar Reno, surgeon. 2. Positive cultures from port, which required removal. 3. Left lower lobe infiltration. 4. Diarrhea, large amount from ostomy, improving. 5. Open abdominal incision. 6. Acute kidney injury. 7. Severe dehydration, resolved. 8. Hemolytic anemia. 9. History of left nephrectomy. 10.Crohn's disease. PLAN: 1. Magnesium 2 g IV q.6 hours x72 hours. 2. Lasix 20 mg IV now 0800 and repeat at 1400, 1 time/1 day. 3. Saline lock IV. 4. Check CBC, CMP, phos, BNP in a.m. 5. Continue with dietary instructions. 6. We will evaluate p.r.n. or in a.m. Aline Landeros PA-C /[id number]
--- NOTE | 2019-09-13 12:52 | PCM.PN ---
- General Info Date of Service: 09/13/19 Subjective Update: No acute events overnight. No fevers. She continues to feel better each day. Appetite is getting better. Output from the ostomy is decreasing. Hemoglobin slightly better again today. Platelets and white count are little better. Doing well and repeat cultures and port cultures are negative so far. Functional Status: Reports: Tolerating Diet - Review of Systems General: Denies: Fever - Patient Data Vitals - Most Recent: Last Vital Signs Temp 35.6 C L 09/13/19 10:29 Pulse 69 09/13/19 10:29 Resp 16 09/13/19 10:29 BP 118/64 09/13/19 10:29 Pulse Ox 100 09/13/19 10:29 Weight - Most Recent: 80.921 kg I&O - Last 24 Hours: Intake & Output 09/12/19 09/13/19 09/13/19 22:59 06:59 14:59 Intake Total 1768 1250 820 Output Total 1600 900 675 Balance 168 350 145 Lab Results Last 24 Hours: Laboratory Results - last 24 hr 09/13/19 09/13/19 Range/Units 04:00 04:20 WBC 3.0 L (4.5-11.0) K/uL RBC 3.08 L (3.30-5.50) M/uL Hgb 8.5 L (12.0-15.0) g/dL Hct 28.5 L (36.0-48.0) % MCV 93 (80-98) fL MCH 28 (27-31) pg MCHC 30 L (32-36) % Plt Count 96 L (150-400) K/uL Sodium 142 (140-148) mmol/L Potassium 5.0 (3.6-5.2) mmol/L Chloride 108 (100-108) mmol/L Carbon Dioxide 23 (21-32) mmol/L Anion Gap 11.5 (5.0-14.0) mmol/L BUN 27 H (7-18) mg/dL Creatinine 1.1 H (0.6-1.0) mg/dL Est Cr Clr Drug Dosing 53.55 mL/min Estimated GFR (MDRD) 51 L (>60) Glucose 118 H (74-106) mg/dL Calcium 9.1 (8.5-10.1) mg/dL Phosphorus 2.8 (2.5-4.9) mg/dL Magnesium 1.6 L (1.8-2.4) mg/dL Total Bilirubin 1.0 (0.2-1.0) mg/dL AST 10 L (15-37) U/L ALT 24 (12-78) U/L Alkaline Phosphatase 56 (46-116) U/L NT-Pro-B Natriuret Pep 8364 H (5-125) pg/mL Total Protein 7.4 (6.4-8.2) g/dL Albumin 4.4 (3.4-5.0) g/dL Globulin 3.0 (2.3-3.5) g/dL Albumin/Globulin Ratio 1.5 (1.2-2.2) Eliud Results Last 24 Hours: Microbiology 09/11/19 08:02 Gram Stain - Final Other - Port-A-Cath Wound Culture - Preliminary NO GROWTH AFTER 2 DAYS 09/12/19 04:39 Aerobic Blood Culture - Preliminary Blood NO GROWTH AFTER 1 DAY Anaerobic Blood Culture - Preliminary NO GROWTH AFTER 1 DAY 09/08/19 19:45 Aerobic Blood Culture - Final Blood - Venous Klebsiella Pneumonia Ss Pneumo Anaerobic Blood Culture - Preliminary NO GROWTH AFTER 4 DAYS Med Orders - Current: Current Medications Acetaminophen (Tylenol) 650 mg PO Q4H PRN PRN Reason: Pain (Mild 1-3)/fever Last Admin: 09/10/19 20:23 Dose: 650 mg Albuterol (Proventil Neb Soln) 2.5 mg NEB Q4H PRN PRN Reason: Shortness Of Breath/wheezing Lipase/Protease/Amylase (uGs Dr 12,000 Units) 2 cap PO TIDMEALS [facility] Last Admin: 09/13/19 12:24 Dose: 2 cap Calcium Polycarbophil (Fibercon) 1,250 mg PO QID [facility] Last Admin: 09/13/19 09:28 Dose: 1,250 mg Diphenoxylate HCl/Atropine (Lomotil 0.025-2.5 Mg) 2 tab PO Q6H [facility] Last Admin: 09/13/19 08:17 Dose: 2 tab Duloxetine HCl (Cymbalta) 60 mg PO DAILY [facility] Last Admin: 09/13/19 08:19 Dose: 60 mg Furosemide (Lasix) 20 mg IVPUSH BID@0800,1400 [facility] Stop: 09/13/19 14:01 Last Admin: 09/13/19 08:13 Dose: 20 mg Heparin Sodium (Porcine) (Heparin Lock Flush 100 Units/Ml) 500 units FLUSH ASDIRECTED PRN PRN Reason: Keep Vein Open Piperacillin/Tazobactam/ (Dextrose 3.375 gm/ Premix) 50 mls @ 100 mls/hr IV Q6H [facility] Last Admin: 09/13/19 08:17 Dose: 100 mls/hr Lactated Ringer's (Ringers, Lactated) 1,000 mls @ 50 mls/hr IV ASDIRECTED [facility] Last Admin: 09/12/19 07:38 Dose: 50 mls/hr Magnesium Sulfate 2 gm/ Premix 50 mls @ 25 mls/hr IV Q6H [facility] Stop: 09/16/19 04:59 Last Admin: 09/13/19 08:19 Dose: 25 mls/hr Lactobacillus Rhamnosus (Culturelle) 1 cap PO BID [facility] Last Admin: 09/13/19 08:19 Dose: 1 cap Loperamide HCl (Imodium) 4 mg PO Q6H [facility] Last Admin: 09/13/19 09:28 Dose: 4 mg Lorazepam (Ativan) 0.5 mg PO Q4H PRN PRN Reason: Anxiety Last Admin: 09/13/19 05:07 Dose: 0.5 mg Melatonin (Melatonin) 9 mg PO BEDTIME [facility] Last Admin: 09/12/19 20:13 Dose: 9 mg Verify Scop Patch 0 each TOP DAILY [facility] Last Admin: 09/13/19 08:20 Dose: Not Given Olanzapine (Zyprexa) 5 mg PO Q12H PRN PRN Reason: Anxiety Last Admin: 09/12/19 22:06 Dose: 5 mg Ondansetron HCl (Zofran Odt) 4 mg PO Q6H PRN PRN Reason: Nausea able to take PO Last Admin: 09/08/19 22:14 Dose: 4 mg Ondansetron HCl (Zofran) 4 mg IV Q6H PRN PRN Reason: Nausea/Vomiting Last Admin: 09/03/19 00:51 Dose: 4 mg Opium Tincture (Opium Tincture) 5 mg PO QID [facility] Last Admin: 09/13/19 09:57 Dose: 5 mg Pantoprazole Sodium (Protonix) 40 mg PO BIDAC [facility] Last Admin: 09/13/19 08:14 Dose: 40 mg Imipramine Hcl 100mg (CapPom) 0 each PO BEDTIME [facility] Last Admin: 09/12/19 20:14 Dose: 1 each Scopolamine (Transderm-Scop) 1.5 mg TRDERM Q72H [facility] Last Admin: 09/12/19 20:16 Dose: 1.5 mg Senna/Docusate Sodium (Senna Plus) 1 tab PO BID PRN PRN Reason: Constipation Sodium Chloride (Saline Flush) 10 ml FLUSH ASDIRECTED PRN PRN Reason: Keep Vein Open Last Admin: 08/31/19 17:43 Dose: 10 ml Tizanidine HCl (Zanaflex) 4 mg PO Q6H PRN PRN Reason: Muscle Spasm Last Admin: 09/13/19 05:07 Dose: 4 mg Tramadol HCl (Ultram) 100 mg PO Q4H PRN PRN Reason: Pain Last Admin: 09/13/19 04:59 Dose: 100 mg Discontinued Medications Bupivacaine HCl (Marcaine 0.5%) Confirm Administered Dose 50 ml .ROUTE .STK-MED ONE Stop: 09/11/19 06:32 Last Admin: 09/11/19 08:03 Dose: 2.5 ml Diphenoxylate HCl/Atropine (Lomotil 0.025-2.5 Mg) 1 tab PO TID [facility] Last Admin: 09/05/19 14:01 Dose: Not Given Diphenoxylate HCl/Atropine (Lomotil 0.025-2.5 Mg) 2 tab PO QID [facility] Last Admin: 09/08/19 05:31 Dose: 2 tab Diphenoxylate HCl/Atropine (Lomotil 0.025-2.5 Mg) 2 tab PO Q4H [facility] Last Admin: 09/11/19 05:03 Dose: Not Given Fentanyl (Sublimaze) Confirm Administered Dose 100 mcg .ROUTE .STK-MED ONE Stop: 09/11/19 07:11 Furosemide (Lasix) 20 mg IVPUSH ONETIME ONE Stop: 09/10/19 09:01 Last Admin: 09/10/19 10:31 Dose: 20 mg Hydromorphone HCl (Dilaudid) 0.5 mg IVPUSH ONETIME ONE Stop: 08/31/19 19:04 Last Admin: 08/31/19 19:16 Dose: 0.5 mg Hydromorphone HCl (Dilaudid) 6 mg PO Q6H PRN PRN Reason: Pain (moderate 4-6) Last Admin: 09/02/19 03:45 Dose: 6 mg Hydromorphone HCl (Dilaudid) 1 mg IVPUSH Q2H PRN PRN Reason: Pain (severe 7-10) Last Admin: 09/02/19 08:53 Dose: 1 mg Hydromorphone HCl (Dilaudid) 2 mg PO Q4H PRN PRN Reason: Pain (moderate 4-6) Last Admin: 09/02/19 16:04 Dose: 2 mg Hydromorphone HCl (Dilaudid) 4 mg PO Q4H PRN PRN Reason: Pain (moderate 4-6) Last Admin: 09/03/19 08:53 Dose: 4 mg Sodium Chloride (Normal Saline) 250 mls @ 250 mls/hr IV ASDIRECTED [facility] Last Admin: 08/31/19 17:43 Dose: 250 mls/hr Ceftriaxone Sodium 1 gm/ (Sodium Chloride) 50 mls @ 100 mls/hr IV Q24H [facility] Last Admin: 09/05/19 20:26 Dose: 100 mls/hr Magnesium Sulfate 2 gm/ Premix 50 mls @ 12.5 mls/hr IV Q6H [facility] Stop: 09/02/19 19:29 Last Admin: 09/02/19 16:58 Dose: 12.5 mls/hr Sodium Chloride (Normal Saline) 1,000 mls @ 125 mls/hr IV ASDIRECTED [facility] Last Admin: 09/02/19 03:26 Dose: 125 mls/hr Ceftriaxone Sodium 1 gm/ (Sodium Chloride) 50 mls @ 100 mls/hr IV ONETIME ONE Stop: 08/31/19 21:44 Last Admin: 08/31/19 22:09 Dose: 100 mls/hr Lactated Ringer's (Ringers, Lactated) 1,000 mls @ 125 mls/hr IV ASDIRECTED [facility] Sodium Chloride (Normal Saline) 1,000 mls @ 125 mls/hr IV ASDIRECTED [facility] Last Admin: 09/06/19 03:09 Dose: 125 mls/hr Magnesium Sulfate 2 gm/ Premix 50 mls @ 25 mls/hr IV Q4H [facility] Stop: 09/07/19 07:59 Last Admin: 09/07/19 05:52 Dose: 25 mls/hr Albumin Human (Albumin 25%) 25 gm in 100 mls @ 25 mls/hr IV DAILY [facility] Stop: 09/09/19 12:59 Last Admin: 09/09/19 14:49 Dose: 25 mls/hr Albumin Human (Albumin 25%) 25 gm in 100 mls @ 25 mls/hr IV Q24H [facility] Stop: 09/09/19 17:59 Last Admin: 09/09/19 15:16 Dose: 25 mls/hr Sodium Chloride (Normal Saline) 1,000 mls @ 75 mls/hr IV ASDIRECTED [facility] Last Admin: 09/07/19 07:36 Dose: 75 mls/hr Magnesium Sulfate 2 gm/ Premix 50 mls @ 25 mls/hr IV Q6H [facility] Stop: 09/11/19 05:29 Last Admin: 09/11/19 03:33 Dose: 25 mls/hr Dexamethasone 14 mg/ Sodium (Chloride) 53.5 mls @ 104.902 mls/hr IV Q24H [facility] Stop: 09/12/19 12:01 Last Admin: 09/12/19 12:52 Dose: 104.902 mls/hr Piperacillin Sod/Tazobactam (Sod 3.375 gm/ Sodium Chloride) 50 mls @ 100 mls/ hr IV Q6H [facility] Last Admin: 09/09/19 02:06 Dose: 100 mls/hr Vancomycin HCl 1 gm/ Sodium (Chloride) 250 mls @ 166.667 mls/hr IV Q24H [facility] Last Admin: 09/10/19 20:33 Dose: 166.667 mls/hr Levofloxacin/Dextrose 750 mg/ (Premix) 150 mls @ 100 mls/hr IV Q24H [facility] Last Admin: 09/08/19 22:18 Dose: Not Given Levofloxacin/Dextrose 750 mg/ (Premix) 150 mls @ 100 mls/hr IV Q24H [facility] Last Admin: 09/08/19 22:57 Dose: 100 mls/hr Albumin Human (Albumin 25%) 25 gm in 100 mls @ 25 mls/hr IV DAILY [facility] Stop: 09/12/19 12:59 Last Admin: 09/12/19 08:53 Dose: 25 mls/hr Albumin Human (Albumin 25%) 25 gm in 100 mls @ 25 mls/hr IV Q24H [facility] Stop: 09/12/19 17:59 Last Admin: 09/12/19 14:09 Dose: 25 mls/hr Levofloxacin/Dextrose 750 mg/ (Premix) 150 mls @ 100 mls/hr IV Q48H [facility] Last Admin: 09/11/19 00:17 Dose: 100 mls/hr Fluconazole/Sodium Chloride (200 mg/ Premix) 100 mls @ 100 mls/hr IV Q24H [facility] Last Admin: 09/12/19 18:15 Dose: 100 mls/hr Lidocaine HCl (Xylocaine-Mpf 1%) Confirm Administered Dose 2 mls @ as directed .ROUTE .STK-MED ONE Stop: 09/11/19 07:16 Lactated Ringer's (Ringers, Lactated) Confirm Administered Dose 1,000 mls @ as directed .ROUTE .STK-MED ONE Stop: 09/11/19 07:29 Imipramine HCl (Imipramine Hcl) 200 mg PO BEDTIME [facility] Imipramine HCl (Imipramine Hcl) 200 mg PO ONETIME ONE Stop: 08/31/19 21:31 Last Admin: 08/31/19 22:48 Dose: Not Given Lidocaine/Epinephrine (Xylocaine 1% With Epinephrine 1:100,000) Confirm Administered Dose 50 ml .ROUTE .STK-MED ONE Stop: 09/11/19 06:32 Last Admin: 09/11/19 08:03 Dose: 2.5 ml Loperamide HCl (Imodium) 2 mg PO Q8H [facility] Last Admin: 09/06/19 07:38 Dose: 2 mg Loperamide HCl (Imodium) 4 mg PO Q6H [facility] Last Admin: 09/08/19 03:31 Dose: 4 mg Loperamide HCl (Imodium) 4 mg PO Q4H [facility] Last Admin: 09/11/19 05:03 Dose: Not Given Lorazepam (Ativan) 0.5 mg IVPUSH Q4H PRN PRN Reason: Nausea/Vomiting Last Admin: 09/02/19 18:36 Dose: 0.5 mg Magnesium Hydroxide (Milk Of Magnesia) 30 ml PO Q12H PRN PRN Reason: Constipation Midazolam HCl (Versed 1 Mg/Ml) Confirm Administered Dose 2 mg .ROUTE .STK-MED ONE Stop: 09/11/19 07:11 Calcitriol ( Calcitriol) 0.25 Mg* *Pom 0.25 mg PO DAILY [facility] Last Admin: 09/08/19 16:57 Dose: Not Given Ondansetron HCl (Zofran) 4 mg IVPUSH ONETIME ONE Stop: 08/31/19 17:44 Last Admin: 08/31/19 17:57 Dose: 4 mg Pantoprazole Sodium (Protonix) 40 mg PO ACBREAKFAST [facility] Last Admin: 09/06/19 07:38 Dose: 40 mg Pharmacy Consult (Consult To Pharmacy) 1 each .XX ASDIRECTED [facility] Stop: 09/09/19 08:00 Propofol (Diprivan 20 Ml) Confirm Administered Dose 200 mg .ROUTE .STK-MED ONE Stop: 09/11/19 07:11 Tizanidine HCl (Zanaflex) 4 mg PO BID PRN PRN Reason: Muscle Spasm Last Admin: 09/10/19 08:48 Dose: 4 mg Tramadol HCl (Ultram) 50 mg PO Q4H PRN PRN Reason: Pain Last Admin: 09/11/19 02:10 Dose: 50 mg Vancomycin HCl (Vancomycin) 1 gm IV .PHARMACY TO DOSE [facility] - Exam Quality Assessment: No: Supplemental Oxygen General: Alert, Oriented, Cooperative, No Acute Distress Lungs: Normal Respiratory Effort GI/Abdominal Exam: Soft, No Distention Extremities: No Pedal Edema Psy/Mental Status: Alert, Normal Affect Sepsis Event Note - Evaluation Sepsis Screening Result: Severe Sepsis Risk - Focused Exam Vital Signs: Vital Signs Temp Pulse Resp BP Pulse Ox 09/13/19 10:29 35.6 C L 69 16 118/64 100 09/13/19 07:05 35.0 C L 65 16 107/91 H 99 09/13/19 03:14 35.2 C L 63 16 129/59 L 99 Date Exam was Performed: 09/13/19 Time Exam was Performed: 14:49 - Problem List & Annotations (1) Acute kidney injury SNOMED Code(s): 92406303, 57290897 Code(s): N17.9 - ACUTE KIDNEY FAILURE, UNSPECIFIED Status: Acute Current Visit: Yes (2) Severe dehydration SNOMED Code(s): 209534805 Code(s): E86.0 - DEHYDRATION Status: Acute Current Visit: Yes (3) Nausea SNOMED Code(s): 946003770 Code(s): R11.0 - NAUSEA Status: Acute Current Visit: Yes (4) History of left nephrectomy SNOMED Code(s): 59578922408755 Code(s): Z90.5 - ACQUIRED ABSENCE OF KIDNEY Status: Chronic Current Visit : No (5) Crohn's disease SNOMED Code(s): 77083411 Code(s): K50.90 - CROHN'S DISEASE, UNSPECIFIED, WITHOUT COMPLICATIONS Status: Chronic Current Visit: No Qualifiers: Gastrointestinal tract location: unspecified location Digestive disease complication type: unspecified complication Qualified Code(s): K50.919 - Crohn 's disease, unspecified, with unspecified complications - Problem List Review Problem List Initiated/Reviewed/Updated: Yes - My Orders Last 24 Hours: My Active Orders 09/14/19 09:00 Cefdinir [Omnicef] 300 mg PO BID - Plan Plan:: ASSESSMENT AND PLAN Fever and bacteremia-peripheral blood culture grew out staph hominis which I suspect is a contaminant. Her port culture grew out Klebsiella and fungal elements were thought to be seen. Port was removed on 09/10. Clinically doing well. No fevers. Repeat cultures and port culture negative so far. 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 Incision is healing by secondary intention and appears to be doing well at this time. Symptoms are improving and intake is improving. -Management per Dr. Reno -Saline lock IV -Monitor and record ostomy output Hypomagnesemia-chronic problem with her previous colectomy but doing well with recent supplementation.. Hemolytic anemia, suspected-significant problem for her in the past as well as during recent hospitalizations. Thought be secondary to chronic anemia as well as hemolytic anemia secondary to splenomegaly versus smoldering sepsis-like picture. Did not seem to respond to steroids. Levels slowly improving. -No indication for transfusion today -Follow-up labs in the morning Maintenance issues - - DVT prophylaxis -SCDs - GI prophylaxis -PPI - Nutrition -regular diet Disposition -anticipate discharge home after the hospital stay Rad Pedersen MD
[2019-09-13] MEDS ORDERED: HYDROmorphone 1 MG/ML Syringe IVPUSH ONE (16:45)
[2019-09-13] MEDS: IMIPRAMINE HCL 100 MG PO SCH (21:00)
[2019-09-13] MEDS: Melatonin 3 MG Tab PO SCH (21:00)
[2019-09-14] MEDS: Acetaminophen 325 MG Tab PO PRN ×3 (01:45→13:10)
[2019-09-14] MEDS: Atropine/Diphenoxylate 0.025-2.5 MG Tab PO SCH ×4 (01:45→20:42)
[2019-09-14] MEDS: Piperacillin/Tazobactam/Dext 3.375 GM in Premix Bag 1 BAG IV SCH (01:45)
[2019-09-14] MEDS: traMADol 50 MG Tab PO PRN ×4 (02:49→19:49)
[2019-09-14] MEDS: LORazepam 0.5 MG Tab PO PRN ×2 (02:49→13:10)
[2019-09-14] MEDS: Magnesium Sulfate/Water 2 GM in Premix Bag 1 BAG IV SCH ×4 (02:50→20:43)
[2019-09-14] MEDS: Lactated Ringers 1,000 ML IV SCH (02:57)
[2019-09-14] MEDS: Loperamide 2 MG Cap PO SCH ×4 (03:03→21:06)
[2019-09-14] MEDS: Calcium Polycarbophil 625 MG Tab PO SCH ×4 (05:31→21:06)
[2019-09-14] MEDS: OPIUM TINCTURE PO SCH ×4 (05:31→21:05)
[2019-09-14] MEDS: Pantoprazole 40 MG Tab.CR PO SCH ×2 (08:02→16:08)
[2019-09-14] MEDS: Amylase/Lipase/Protease 12,000 Unit Cap.CR PO SCH ×3 (08:02→16:09)
[2019-09-14] MEDS: Lactobacillus Rhamnosus GG (Probiotic) Cap PO SCH ×2 (08:12→20:43)
[2019-09-14] MEDS: DULoxetine 30 MG Cap PO SCH (08:13)
[2019-09-14] MEDS: VERIFY SCOP PATCH TOP SCH (08:42)
[2019-09-14] MEDS ORDERED: Furosemide 20 MG/2 ML VIAL IVPUSH ONE (09:00)
[2019-09-14] MEDS: Cefdinir 300 MG Cap PO SCH ×2 (10:02→20:43)
[2019-09-14] MEDS ORDERED: HYDROmorphone 1 MG/ML Syringe IVPUSH PRN (10:55)
--- NOTE | 2019-09-14 10:57 | PCM.PN ---
- General Info Date of Service: 09/14/19 Subjective Update: No acute events overnight. Patient has been having difficulty with increased irritation and pain around her ostomy site. She has had to change her ostomy 9 times in the past 24 hours which is quite unusual for her. The pain around her ostomy site can be quite severe because of the irritation to her skin. No fevers. Appetite has been good. Functional Status: Reports: Pain Controlled, Tolerating Diet - Review of Systems Gastrointestinal: Reports: Other (burning pain around ostomy site ) - Patient Data Vitals - Most Recent: Last Vital Signs Temp 35.8 C L 09/14/19 10:07 Pulse 77 09/14/19 10:07 Resp 16 09/14/19 10:07 BP 120/50 L 09/14/19 10:07 Pulse Ox 99 09/14/19 10:07 Weight - Most Recent: 80.467 kg I&O - Last 24 Hours: Intake & Output 09/13/19 09/14/19 09/14/19 22:59 06:59 14:59 Intake Total 1420 948 740 Output Total 537 689 6280 Balance 920 48 -635 Lab Results Last 24 Hours: Laboratory Results - last 24 hr 09/14/19 09/14/19 Range/Units 04:15 04:15 WBC 5.0 (4.5-11.0) K/uL RBC 3.24 L (3.30-5.50) M/uL Hgb 8.6 L (12.0-15.0) g/dL Hct 29.9 L (36.0-48.0) % MCV 92 (80-98) fL MCH 27 (27-31) pg MCHC 29 L (32-36) % Plt Count 131 L (150-400) K/uL Sodium 142 (140-148) mmol/L Potassium 3.9 (3.6-5.2) mmol/L Chloride 108 (100-108) mmol/L Carbon Dioxide 26 (21-32) mmol/L Anion Gap 8.2 (5.0-14.0) mmol/L BUN 27 H (7-18) mg/dL Creatinine 1.2 H (0.6-1.0) mg/dL Est Cr Clr Drug Dosing 49.09 mL/min Estimated GFR (MDRD) 46 L (>60) Glucose 98 (74-106) mg/dL Calcium 8.2 L (8.5-10.1) mg/dL Phosphorus 3.0 (2.5-4.9) mg/dL Total Bilirubin 0.8 (0.2-1.0) mg/dL AST 9 L (15-37) U/L ALT 23 (12-78) U/L Alkaline Phosphatase 56 (46-116) U/L NT-Pro-B Natriuret Pep 4473 H (5-125) pg/mL Total Protein 6.7 (6.4-8.2) g/dL Albumin 3.8 (3.4-5.0) g/dL Globulin 2.9 (2.3-3.5) g/dL Albumin/Globulin Ratio 1.3 (1.2-2.2) Leiud Results Last 24 Hours: Microbiology 09/08/19 19:45 Aerobic Blood Culture - Final Blood - Venous Klebsiella Pneumonia Ss Pneumo Anaerobic Blood Culture - Preliminary 09/11/19 08:02 Gram Stain - Final Other - Port-A-Cath Wound Culture - Preliminary 09/11/19 08:02 Anaerobic Culture - Preliminary Other - Port-A-Cath NO GROWTH AFTER 2 DAYS 09/12/19 04:39 Aerobic Blood Culture - Preliminary Blood NO GROWTH AFTER 2 DAYS Anaerobic Blood Culture - Preliminary NO GROWTH AFTER 2 DAYS Med Orders - Current: Current Medications Acetaminophen (Tylenol) 650 mg PO Q4H PRN PRN Reason: Pain (Mild 1-3)/fever Last Admin: 09/14/19 08:09 Dose: 650 mg Albuterol (Proventil Neb Soln) 2.5 mg NEB Q4H PRN PRN Reason: Shortness Of Breath/wheezing Lipase/Protease/Amylase (Cremazin Dr 12,000 Units) 2 cap PO TIDMEALS [facility] Last Admin: 09/14/19 08:02 Dose: 2 cap Calcium Polycarbophil (Fibercon) 1,250 mg PO QID [facility] Last Admin: 09/14/19 10:01 Dose: 1,250 mg Cefdinir (Omnicef) 300 mg PO BID [facility] Last Admin: 09/14/19 10:02 Dose: 300 mg Diphenoxylate HCl/Atropine (Lomotil 0.025-2.5 Mg) 2 tab PO Q6H [facility] Last Admin: 09/14/19 08:10 Dose: 2 tab Duloxetine HCl (Cymbalta) 60 mg PO DAILY [facility] Last Admin: 09/14/19 08:13 Dose: 60 mg Heparin Sodium (Porcine) (Heparin Lock Flush 100 Units/Ml) 500 units FLUSH ASDIRECTED PRN PRN Reason: Keep Vein Open Lactated Ringer's (Ringers, Lactated) 1,000 mls @ 50 mls/hr IV ASDIRECTED [facility] Last Admin: 09/14/19 02:57 Dose: 50 mls/hr Magnesium Sulfate 2 gm/ Premix 50 mls @ 25 mls/hr IV Q6H [facility] Stop: 09/16/19 04:59 Last Admin: 09/14/19 08:19 Dose: 25 mls/hr Lactobacillus Rhamnosus (Culturelle) 1 cap PO BID [facility] Last Admin: 09/14/19 08:12 Dose: 1 cap Loperamide HCl (Imodium) 4 mg PO Q6H [facility] Last Admin: 09/14/19 10:03 Dose: 4 mg Lorazepam (Ativan) 0.5 mg PO Q4H PRN PRN Reason: Anxiety Last Admin: 09/14/19 02:49 Dose: 0.5 mg Melatonin (Melatonin) 9 mg PO BEDTIME [facility] Last Admin: 09/13/19 21:00 Dose: 9 mg Verify Scop Patch 0 each TOP DAILY [facility] Last Admin: 09/14/19 08:42 Dose: Not Given Olanzapine (Zyprexa) 5 mg PO Q12H PRN PRN Reason: Anxiety Last Admin: 09/12/19 22:06 Dose: 5 mg Ondansetron HCl (Zofran Odt) 4 mg PO Q6H PRN PRN Reason: Nausea able to take PO Last Admin: 09/08/19 22:14 Dose: 4 mg Ondansetron HCl (Zofran) 4 mg IV Q6H PRN PRN Reason: Nausea/Vomiting Last Admin: 09/03/19 00:51 Dose: 4 mg Opium Tincture (Opium Tincture) 5 mg PO QID [facility] Last Admin: 09/14/19 10:04 Dose: 5 mg Pantoprazole Sodium (Protonix) 40 mg PO BIDAC [facility] Last Admin: 09/14/19 08:02 Dose: 40 mg Imipramine Hcl 100mg (CapPom) 0 each PO BEDTIME [facility] Last Admin: 09/13/19 21:00 Dose: 2 each Scopolamine (Transderm-Scop) 1.5 mg TRDERM Q72H [facility] Last Admin: 09/12/19 20:16 Dose: 1.5 mg Senna/Docusate Sodium (Senna Plus) 1 tab PO BID PRN PRN Reason: Constipation Sodium Chloride (Saline Flush) 10 ml FLUSH ASDIRECTED PRN PRN Reason: Keep Vein Open Last Admin: 08/31/19 17:43 Dose: 10 ml Tizanidine HCl (Zanaflex) 4 mg PO Q6H PRN PRN Reason: Muscle Spasm Last Admin: 09/13/19 21:06 Dose: 4 mg Tramadol HCl (Ultram) 100 mg PO Q4H PRN PRN Reason: Pain Last Admin: 09/14/19 08:09 Dose: 100 mg Discontinued Medications Bupivacaine HCl (Marcaine 0.5%) Confirm Administered Dose 50 ml .ROUTE .STK-MED ONE Stop: 09/11/19 06:32 Last Admin: 09/11/19 08:03 Dose: 2.5 ml Diphenoxylate HCl/Atropine (Lomotil 0.025-2.5 Mg) 1 tab PO TID [facility] Last Admin: 09/05/19 14:01 Dose: Not Given Diphenoxylate HCl/Atropine (Lomotil 0.025-2.5 Mg) 2 tab PO QID [facility] Last Admin: 09/08/19 05:31 Dose: 2 tab Diphenoxylate HCl/Atropine (Lomotil 0.025-2.5 Mg) 2 tab PO Q4H [facility] Last Admin: 09/11/19 05:03 Dose: Not Given Fentanyl (Sublimaze) Confirm Administered Dose 100 mcg .ROUTE .STK-MED ONE Stop: 09/11/19 07:11 Furosemide (Lasix) 20 mg IVPUSH ONETIME ONE Stop: 09/10/19 09:01 Last Admin: 09/10/19 10:31 Dose: 20 mg Furosemide (Lasix) 20 mg IVPUSH BID@0800,1400 [facility] Stop: 09/13/19 14:01 Last Admin: 09/13/19 08:13 Dose: 20 mg Furosemide (Lasix) 20 mg IVPUSH ONETIME ONE Stop: 09/14/19 09:01 Last Admin: 09/14/19 08:11 Dose: 20 mg Hydromorphone HCl (Dilaudid) 0.5 mg IVPUSH ONETIME ONE Stop: 08/31/19 19:04 Last Admin: 08/31/19 19:16 Dose: 0.5 mg Hydromorphone HCl (Dilaudid) 6 mg PO Q6H PRN PRN Reason: Pain (moderate 4-6) Last Admin: 09/02/19 03:45 Dose: 6 mg Hydromorphone HCl (Dilaudid) 1 mg IVPUSH Q2H PRN PRN Reason: Pain (severe 7-10) Last Admin: 09/02/19 08:53 Dose: 1 mg Hydromorphone HCl (Dilaudid) 2 mg PO Q4H PRN PRN Reason: Pain (moderate 4-6) Last Admin: 09/02/19 16:04 Dose: 2 mg Hydromorphone HCl (Dilaudid) 4 mg PO Q4H PRN PRN Reason: Pain (moderate 4-6) Last Admin: 09/03/19 08:53 Dose: 4 mg Hydromorphone HCl (Dilaudid) 1 mg IVPUSH ONETIME ONE Stop: 09/13/19 16:46 Last Admin: 09/13/19 16:53 Dose: 1 mg Sodium Chloride (Normal Saline) 250 mls @ 250 mls/hr IV ASDIRECTED [facility] Last Admin: 08/31/19 17:43 Dose: 250 mls/hr Ceftriaxone Sodium 1 gm/ (Sodium Chloride) 50 mls @ 100 mls/hr IV Q24H [facility] Last Admin: 09/05/19 20:26 Dose: 100 mls/hr Magnesium Sulfate 2 gm/ Premix 50 mls @ 12.5 mls/hr IV Q6H [facility] Stop: 09/02/19 19:29 Last Admin: 09/02/19 16:58 Dose: 12.5 mls/hr Sodium Chloride (Normal Saline) 1,000 mls @ 125 mls/hr IV ASDIRECTED [facility] Last Admin: 09/02/19 03:26 Dose: 125 mls/hr Ceftriaxone Sodium 1 gm/ (Sodium Chloride) 50 mls @ 100 mls/hr IV ONETIME ONE Stop: 08/31/19 21:44 Last Admin: 08/31/19 22:09 Dose: 100 mls/hr Lactated Ringer's (Ringers, Lactated) 1,000 mls @ 125 mls/hr IV ASDIRECTED [facility] Sodium Chloride (Normal Saline) 1,000 mls @ 125 mls/hr IV ASDIRECTED [facility] Last Admin: 09/06/19 03:09 Dose: 125 mls/hr Magnesium Sulfate 2 gm/ Premix 50 mls @ 25 mls/hr IV Q4H [facility] Stop: 09/07/19 07:59 Last Admin: 09/07/19 05:52 Dose: 25 mls/hr Albumin Human (Albumin 25%) 25 gm in 100 mls @ 25 mls/hr IV DAILY [facility] Stop: 09/09/19 12:59 Last Admin: 09/09/19 14:49 Dose: 25 mls/hr Albumin Human (Albumin 25%) 25 gm in 100 mls @ 25 mls/hr IV Q24H [facility] Stop: 09/09/19 17:59 Last Admin: 09/09/19 15:16 Dose: 25 mls/hr Sodium Chloride (Normal Saline) 1,000 mls @ 75 mls/hr IV ASDIRECTED [facility] Last Admin: 09/07/19 07:36 Dose: 75 mls/hr Magnesium Sulfate 2 gm/ Premix 50 mls @ 25 mls/hr IV Q6H [facility] Stop: 09/11/19 05:29 Last Admin: 09/11/19 03:33 Dose: 25 mls/hr Dexamethasone 14 mg/ Sodium (Chloride) 53.5 mls @ 104.902 mls/hr IV Q24H [facility] Stop: 09/12/19 12:01 Last Admin: 09/12/19 12:52 Dose: 104.902 mls/hr Piperacillin Sod/Tazobactam (Sod 3.375 gm/ Sodium Chloride) 50 mls @ 100 mls/ hr IV Q6H [facility] Last Admin: 09/09/19 02:06 Dose: 100 mls/hr Vancomycin HCl 1 gm/ Sodium (Chloride) 250 mls @ 166.667 mls/hr IV Q24H [facility] Last Admin: 09/10/19 20:33 Dose: 166.667 mls/hr Levofloxacin/Dextrose 750 mg/ (Premix) 150 mls @ 100 mls/hr IV Q24H [facility] Last Admin: 09/08/19 22:18 Dose: Not Given Levofloxacin/Dextrose 750 mg/ (Premix) 150 mls @ 100 mls/hr IV Q24H [facility] Last Admin: 09/08/19 22:57 Dose: 100 mls/hr Albumin Human (Albumin 25%) 25 gm in 100 mls @ 25 mls/hr IV DAILY [facility] Stop: 09/12/19 12:59 Last Admin: 09/12/19 08:53 Dose: 25 mls/hr Albumin Human (Albumin 25%) 25 gm in 100 mls @ 25 mls/hr IV Q24H [facility] Stop: 09/12/19 17:59 Last Admin: 09/12/19 14:09 Dose: 25 mls/hr Piperacillin/Tazobactam/ (Dextrose 3.375 gm/ Premix) 50 mls @ 100 mls/hr IV Q6H [facility] Stop: 09/14/19 05:00 Last Admin: 09/14/19 01:45 Dose: 100 mls/hr Levofloxacin/Dextrose 750 mg/ (Premix) 150 mls @ 100 mls/hr IV Q48H [facility] Last Admin: 09/11/19 00:17 Dose: 100 mls/hr Fluconazole/Sodium Chloride (200 mg/ Premix) 100 mls @ 100 mls/hr IV Q24H [facility] Last Admin: 09/12/19 18:15 Dose: 100 mls/hr Lidocaine HCl (Xylocaine-Mpf 1%) Confirm Administered Dose 2 mls @ as directed .ROUTE .STK-MED ONE Stop: 09/11/19 07:16 Lactated Ringer's (Ringers, Lactated) Confirm Administered Dose 1,000 mls @ as directed .ROUTE .STK-MED ONE Stop: 09/11/19 07:29 Imipramine HCl (Imipramine Hcl) 200 mg PO BEDTIME [facility] Imipramine HCl (Imipramine Hcl) 200 mg PO ONETIME ONE Stop: 08/31/19 21:31 Last Admin: 08/31/19 22:48 Dose: Not Given Lidocaine/Epinephrine (Xylocaine 1% With Epinephrine 1:100,000) Confirm Administered Dose 50 ml .ROUTE .STK-MED ONE Stop: 09/11/19 06:32 Last Admin: 09/11/19 08:03 Dose: 2.5 ml Loperamide HCl (Imodium) 2 mg PO Q8H [facility] Last Admin: 09/06/19 07:38 Dose: 2 mg Loperamide HCl (Imodium) 4 mg PO Q6H [facility] Last Admin: 09/08/19 03:31 Dose: 4 mg Loperamide HCl (Imodium) 4 mg PO Q4H [facility] Last Admin: 09/11/19 05:03 Dose: Not Given Lorazepam (Ativan) 0.5 mg IVPUSH Q4H PRN PRN Reason: Nausea/Vomiting Last Admin: 09/02/19 18:36 Dose: 0.5 mg Magnesium Hydroxide (Milk Of Magnesia) 30 ml PO Q12H PRN PRN Reason: Constipation Midazolam HCl (Versed 1 Mg/Ml) Confirm Administered Dose 2 mg .ROUTE .STK-MED ONE Stop: 09/11/19 07:11 Calcitriol ( Calcitriol) 0.25 Mg* *Pom 0.25 mg PO DAILY [facility] Last Admin: 09/08/19 16:57 Dose: Not Given Ondansetron HCl (Zofran) 4 mg IVPUSH ONETIME ONE Stop: 08/31/19 17:44 Last Admin: 08/31/19 17:57 Dose: 4 mg Pantoprazole Sodium (Protonix) 40 mg PO ACBREAKFAST [facility] Last Admin: 09/06/19 07:38 Dose: 40 mg Pharmacy Consult (Consult To Pharmacy) 1 each .XX ASDIRECTED [facility] Stop: 09/09/19 08:00 Propofol (Diprivan 20 Ml) Confirm Administered Dose 200 mg .ROUTE .STK-MED ONE Stop: 09/11/19 07:11 Tizanidine HCl (Zanaflex) 4 mg PO BID PRN PRN Reason: Muscle Spasm Last Admin: 09/10/19 08:48 Dose: 4 mg Tramadol HCl (Ultram) 50 mg PO Q4H PRN PRN Reason: Pain Last Admin: 09/11/19 02:10 Dose: 50 mg Vancomycin HCl (Vancomycin) 1 gm IV .PHARMACY TO DOSE CASSIE - Exam Quality Assessment: No: Supplemental Oxygen General: Alert, Oriented, Cooperative, No Acute Distress Lungs: Normal Respiratory Effort GI/Abdominal Exam: Soft, No Distention Extremities: No Pedal Edema Skin: Warm, Dry, Rash (patchy erythematous rash around ostomy site and surrounding skin ) Psy/Mental Status: Alert, Normal Affect Sepsis Event Note - Evaluation Sepsis Screening Result: No Definite Risk - Focused Exam Vital Signs: Vital Signs Temp Pulse Resp BP Pulse Ox 09/14/19 10:07 35.8 C L 77 16 120/50 L 99 09/14/19 06:47 35.3 C L 82 18 125/72 100 09/14/19 03:00 35.8 C L 61 14 108/47 L 97 Date Exam was Performed: 09/14/19 Time Exam was Performed: 11:26 - Problem List & Annotations (1) Acute kidney injury SNOMED Code(s): 51072415, 12434427 Code(s): N17.9 - ACUTE KIDNEY FAILURE, UNSPECIFIED Status: Acute Current Visit: Yes (2) Severe dehydration SNOMED Code(s): 715868831 Code(s): E86.0 - DEHYDRATION Status: Acute Current Visit: Yes (3) Nausea SNOMED Code(s): 720160984 Code(s): R11.0 - NAUSEA Status: Acute Current Visit: Yes (4) History of left nephrectomy SNOMED Code(s): 83359636672996 Code(s): Z90.5 - ACQUIRED ABSENCE OF KIDNEY Status: Chronic Current Visit : No (5) Crohn's disease SNOMED Code(s): 03886790 Code(s): K50.90 - CROHN'S DISEASE, UNSPECIFIED, WITHOUT COMPLICATIONS Status: Chronic Current Visit: No Qualifiers: Gastrointestinal tract location: unspecified location Digestive disease complication type: unspecified complication Qualified Code(s): K50.919 - Crohn 's disease, unspecified, with unspecified complications - Problem List Review Problem List Initiated/Reviewed/Updated: Yes - My Orders Last 24 Hours: My Active Orders 09/14/19 09:00 Cefdinir [Omnicef] 300 mg PO BID 09/14/19 10:55 HYDROmorphone [Dilaudid] 1 mg IVPUSH Q4H PRN - Plan Plan:: ASSESSMENT AND PLAN Fever and bacteremia-peripheral blood culture grew out staph hominis which I suspect is a contaminant. Her port culture grew out Klebsiella and fungal elements were thought to be seen. Port was removed on 09/10. Clinically doing well. No fevers. Repeat cultures and port culture negative so far. 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 Some difficulty with irritation around her ostomy site. -Local wound cares around her ostomy site -Management per Dr. Reno -Saline lock IV -Monitor and record ostomy output Hypomagnesemia-currently being supplemented. Hemolytic anemia, suspected-significant problem for her in the past as well as during recent hospitalizations. Thought be secondary to chronic anemia as well as hemolytic anemia secondary to splenomegaly versus smoldering sepsis-like picture. Did not seem to respond to steroids. Levels stable to slightly improved. -No indication for transfusion today -Follow-up labs in the morning Maintenance issues - - DVT prophylaxis -SCDs - GI prophylaxis -PPI - Nutrition -regular diet Disposition -anticipate discharge home after the hospital stay Rad Pedersen MD
[2019-09-14] MEDS: HYDROmorphone 1 MG/ML Syringe IVPUSH PRN ×3 (14:10→22:33)
[2019-09-14] MEDS ORDERED: Dimethicone 20%/Zinc Oxide 25% 56 GM Spray Bottle TOP PRN (19:18)
[2019-09-14] MEDS: Melatonin 3 MG Tab PO SCH (20:43)
[2019-09-14] MEDS: IMIPRAMINE HCL 100 MG PO SCH (21:00)
[2019-09-14] MEDS: OLANZapine 5 MG Tab PO PRN (21:05)
[2019-09-14] MEDS: tiZANidine 4 MG Tab PO PRN (21:05)
[2019-09-15] MEDS: LORazepam 0.5 MG Tab PO PRN ×3 (01:54→22:12)
[2019-09-15] MEDS: traMADol 50 MG Tab PO PRN ×5 (01:54→23:52)
[2019-09-15] MEDS: Atropine/Diphenoxylate 0.025-2.5 MG Tab PO SCH ×5 (01:54→22:12)
[2019-09-15] MEDS: Magnesium Sulfate/Water 2 GM in Premix Bag 1 BAG IV SCH ×4 (01:59→20:03)
[2019-09-15] MEDS: Loperamide 2 MG Cap PO SCH ×5 (03:34→23:52)
[2019-09-15] MEDS: tiZANidine 4 MG Tab PO PRN ×2 (03:34→21:31)
[2019-09-15] MEDS: OPIUM TINCTURE PO SCH ×4 (05:29→21:31)
[2019-09-15] MEDS: HYDROmorphone 1 MG/ML Syringe IVPUSH PRN ×7 (05:29→22:12)
[2019-09-15] MEDS: Calcium Polycarbophil 625 MG Tab PO SCH ×2 (05:30→09:25)
[2019-09-15] MEDS: Pantoprazole 40 MG Tab.CR PO SCH ×2 (07:18→16:28)
[2019-09-15] MEDS: Acetaminophen 325 MG Tab PO PRN ×4 (07:27→23:52)
[2019-09-15] MEDS: DULoxetine 30 MG Cap PO SCH (08:04)
[2019-09-15] MEDS: Amylase/Lipase/Protease 12,000 Unit Cap.CR PO SCH ×3 (08:05→16:28)
[2019-09-15] MEDS: Lactobacillus Rhamnosus GG (Probiotic) Cap PO SCH ×2 (08:08→20:03)
[2019-09-15] MEDS: VERIFY SCOP PATCH TOP SCH (08:12)
[2019-09-15] MEDS: Cefdinir 300 MG Cap PO SCH ×2 (09:25→20:04)
[2019-09-15] MEDS: Lactated Ringers 1,000 ML IV SCH (09:28)
[2019-09-15] MEDS ORDERED: Aluminum Hydroxide/Magnesium Hydroxide/Simethicone Susp 30 ML Cup PRN (11:15)
--- NOTE | 2019-09-15 11:18 | PCM.PN ---
- General Info Date of Service: 09/15/19 Subjective Update: No acute events overnight. Still having trouble with her ostomy. The area of irritation seems larger and more irritated today than yesterday. She is complaining of burning pain around her ostomy. She has not had any fevers. Stool remains mostly liquid. Functional Status: Reports: Tolerating Diet. Denies: Pain Controlled - Review of Systems General: Denies: Fever Skin: Reports: Rash (around ostomy ) - Patient Data Vitals - Most Recent: Last Vital Signs Temp 37.1 C 09/15/19 07:57 Pulse 75 09/15/19 07:57 Resp 16 09/15/19 07:57 BP 117/50 L 09/15/19 07:57 Pulse Ox 99 09/15/19 07:57 Weight - Most Recent: 79.107 kg I&O - Last 24 Hours: Intake & Output 09/14/19 09/15/19 09/15/19 22:59 06:59 14:59 Intake Total 860 1714 240 Output Total 900 1200 350 Balance -40 514 -110 Lab Results Last 24 Hours: Laboratory Results - last 24 hr 09/11/19 09/15/19 09/15/19 Range/Units 04:10 04:15 04:15 WBC 4.7 (4.5-11.0) K/uL RBC 3.43 (3.30-5.50) M/uL Hgb 9.2 L (12.0-15.0) g/dL Hct 31.5 L (36.0-48.0) % MCV 92 (80-98) fL MCH 27 (27-31) pg MCHC 29 L (32-36) % Plt Count 134 L (150-400) K/uL Sodium 141 (140-148) mmol/L Potassium 3.7 (3.6-5.2) mmol/L Chloride 107 (100-108) mmol/L Carbon Dioxide 27 (21-32) mmol/L Anion Gap 7.3 (5.0-14.0) mmol/L BUN 20 H (7-18) mg/dL Creatinine 1.1 H (0.6-1.0) mg/dL Est Cr Clr Drug Dosing 53.41 mL/min Estimated GFR (MDRD) 51 L (>60) Glucose 97 (74-106) mg/dL Calcium 7.7 L (8.5-10.1) mg/dL Phosphorus 3.5 (2.5-4.9) mg/dL Total Bilirubin 0.8 (0.2-1.0) mg/dL AST 10 L (15-37) U/L ALT 22 (12-78) U/L Alkaline Phosphatase 54 (46-116) U/L NT-Pro-B Natriuret Pep 993 H (5-125) pg/mL Total Protein 6.5 (6.4-8.2) g/dL Albumin 3.6 (3.4-5.0) g/dL Globulin 2.9 (2.3-3.5) g/dL Albumin/Globulin Ratio 1.2 (1.2-2.2) Crossmatch See Detail Eliud Results Last 24 Hours: Microbiology 09/08/19 19:45 Aerobic Blood Culture - Final Blood - Venous - Lab Draw Staph Hominis Ss Hominis Anaerobic Blood Culture - Final 09/08/19 19:45 Aerobic Blood Culture - Final Blood - Venous Klebsiella Pneumonia Ss Pneumo Anaerobic Blood Culture - Final Klebsiella Pneumonia Ss Pneumo 09/11/19 08:02 Anaerobic Culture - Final Other - Port-A-Cath NO GROWTH AFTER 3 DAYS 09/11/19 08:02 Gram Stain - Final Other - Port-A-Cath Wound Culture - Final Klebsiella Pneumonia Ss Pneumo 09/12/19 04:39 Aerobic Blood Culture - Preliminary Blood NO GROWTH AFTER 3 DAYS Anaerobic Blood Culture - Preliminary NO GROWTH AFTER 3 DAYS Med Orders - Current: Current Medications Acetaminophen (Tylenol) 650 mg PO Q4H PRN PRN Reason: Pain (Mild 1-3)/fever Last Admin: 09/15/19 07:27 Dose: 650 mg Al Hydroxide/Mg Hydroxide (Mag-Al Plus) 30 ml .XX Q2H PRN PRN Reason: Ostomy irritation Albuterol (Proventil Neb Soln) 2.5 mg NEB Q4H PRN PRN Reason: Shortness Of Breath/wheezing Lipase/Protease/Amylase (Gus Greer 12,000 Units) 2 cap PO TIDMEALS [facility] Last Admin: 09/15/19 08:05 Dose: 2 cap Calcium Polycarbophil (Fibercon) 1,250 mg PO QID [facility] Last Admin: 09/15/19 09:25 Dose: 1,250 mg Cefdinir (Omnicef) 300 mg PO BID [facility] Last Admin: 09/15/19 09:25 Dose: 300 mg Dimethicone/Zinc Oxide (Rash Relief-Zinc Oxide [place]) 0.5 gm TOP ASDIRECTED PRN PRN Reason: skin irritation Diphenoxylate HCl/Atropine (Lomotil 0.025-2.5 Mg) 2 tab PO Q6H [facility] Last Admin: 09/15/19 08:16 Dose: 2 tab Duloxetine HCl (Cymbalta) 60 mg PO DAILY [facility] Last Admin: 09/15/19 08:04 Dose: 60 mg Heparin Sodium (Porcine) (Heparin Lock Flush 100 Units/Ml) 500 units FLUSH ASDIRECTED PRN PRN Reason: Keep Vein Open Hydromorphone HCl (Dilaudid) 1 mg IVPUSH Q2H PRN PRN Reason: Pain (severe 7-10) Last Admin: 09/15/19 10:33 Dose: 1 mg Lactated Ringer's (Ringers, Lactated) 1,000 mls @ 50 mls/hr IV ASDIRECTED [facility] Last Admin: 09/15/19 09:28 Dose: 50 mls/hr Magnesium Sulfate 2 gm/ Premix 50 mls @ 25 mls/hr IV Q6H [facility] Stop: 09/16/19 04:59 Last Admin: 09/15/19 08:10 Dose: 25 mls/hr Magnesium Sulfate 2 gm/ Premix 50 mls @ 25 mls/hr IV Q6H [facility] Lactobacillus Rhamnosus (Culturelle) 1 cap PO BID [facility] Last Admin: 09/15/19 08:08 Dose: 1 cap Loperamide HCl (Imodium) 4 mg PO Q6H [facility] Last Admin: 09/15/19 09:25 Dose: 4 mg Lorazepam (Ativan) 0.5 mg PO Q4H PRN PRN Reason: Anxiety Last Admin: 09/15/19 01:54 Dose: 0.5 mg Melatonin (Melatonin) 9 mg PO BEDTIME [facility] Last Admin: 09/14/19 20:43 Dose: 9 mg Verify Scop Patch 0 each TOP DAILY [facility] Last Admin: 09/15/19 08:12 Dose: Not Given Olanzapine (Zyprexa) 5 mg PO Q12H PRN PRN Reason: Anxiety Last Admin: 09/14/19 21:05 Dose: 5 mg Ondansetron HCl (Zofran Odt) 4 mg PO Q6H PRN PRN Reason: Nausea able to take PO Last Admin: 09/08/19 22:14 Dose: 4 mg Ondansetron HCl (Zofran) 4 mg IV Q6H PRN PRN Reason: Nausea/Vomiting Last Admin: 09/03/19 00:51 Dose: 4 mg Opium Tincture (Opium Tincture) 5 mg PO QID [facility] Last Admin: 09/15/19 09:26 Dose: 5 mg Pantoprazole Sodium (Protonix) 40 mg PO BIDAC [facility] Last Admin: 09/15/19 07:18 Dose: 40 mg Imipramine Hcl 100mg (CapPom) 0 each PO BEDTIME [facility] Last Admin: 09/14/19 21:00 Dose: 1 each Scopolamine (Transderm-Scop) 1.5 mg TRDERM Q72H [facility] Last Admin: 09/12/19 20:16 Dose: 1.5 mg Senna/Docusate Sodium (Senna Plus) 1 tab PO BID PRN PRN Reason: Constipation Silver Sulfadiazine (Silvadene 1% Cream 400 Gm) 1 gm TOP BID [facility] Sodium Chloride (Saline Flush) 10 ml FLUSH ASDIRECTED PRN PRN Reason: Keep Vein Open Last Admin: 08/31/19 17:43 Dose: 10 ml Tizanidine HCl (Zanaflex) 4 mg PO Q6H PRN PRN Reason: Muscle Spasm Last Admin: 09/15/19 03:34 Dose: 4 mg Tramadol HCl (Ultram) 100 mg PO Q4H PRN PRN Reason: Pain Last Admin: 09/15/19 07:27 Dose: 100 mg Discontinued Medications Bupivacaine HCl (Marcaine 0.5%) Confirm Administered Dose 50 ml .ROUTE .STK-MED ONE Stop: 09/11/19 06:32 Last Admin: 09/11/19 08:03 Dose: 2.5 ml Diphenoxylate HCl/Atropine (Lomotil 0.025-2.5 Mg) 1 tab PO TID [facility] Last Admin: 09/05/19 14:01 Dose: Not Given Diphenoxylate HCl/Atropine (Lomotil 0.025-2.5 Mg) 2 tab PO QID [facility] Last Admin: 09/08/19 05:31 Dose: 2 tab Diphenoxylate HCl/Atropine (Lomotil 0.025-2.5 Mg) 2 tab PO Q4H [facility] Last Admin: 09/11/19 05:03 Dose: Not Given Fentanyl (Sublimaze) Confirm Administered Dose 100 mcg .ROUTE .[facility] ONE Stop: 09/11/19 07:11 Furosemide (Lasix) 20 mg IVPUSH ONETIME ONE Stop: 09/10/19 09:01 Last Admin: 09/10/19 10:31 Dose: 20 mg Furosemide (Lasix) 20 mg IVPUSH BID@0800,1400 [facility] Stop: 09/13/19 14:01 Last Admin: 09/13/19 08:13 Dose: 20 mg Furosemide (Lasix) 20 mg IVPUSH ONETIME ONE Stop: 09/14/19 09:01 Last Admin: 09/14/19 08:11 Dose: 20 mg Hydromorphone HCl (Dilaudid) 0.5 mg IVPUSH ONETIME ONE Stop: 08/31/19 19:04 Last Admin: 08/31/19 19:16 Dose: 0.5 mg Hydromorphone HCl (Dilaudid) 6 mg PO Q6H PRN PRN Reason: Pain (moderate 4-6) Last Admin: 09/02/19 03:45 Dose: 6 mg Hydromorphone HCl (Dilaudid) 1 mg IVPUSH Q2H PRN PRN Reason: Pain (severe 7-10) Last Admin: 09/02/19 08:53 Dose: 1 mg Hydromorphone HCl (Dilaudid) 2 mg PO Q4H PRN PRN Reason: Pain (moderate 4-6) Last Admin: 09/02/19 16:04 Dose: 2 mg Hydromorphone HCl (Dilaudid) 4 mg PO Q4H PRN PRN Reason: Pain (moderate 4-6) Last Admin: 09/03/19 08:53 Dose: 4 mg Hydromorphone HCl (Dilaudid) 1 mg IVPUSH ONETIME ONE Stop: 09/13/19 16:46 Last Admin: 09/13/19 16:53 Dose: 1 mg Hydromorphone HCl (Dilaudid) 1 mg IVPUSH Q4H PRN PRN Reason: Pain (severe 7-10) Last Admin: 09/14/19 11:28 Dose: 1 mg Sodium Chloride (Normal Saline) 250 mls @ 250 mls/hr IV ASDIRECTED [facility] Last Admin: 08/31/19 17:43 Dose: 250 mls/hr Ceftriaxone Sodium 1 gm/ (Sodium Chloride) 50 mls @ 100 mls/hr IV Q24H [facility] Last Admin: 09/05/19 20:26 Dose: 100 mls/hr Magnesium Sulfate 2 gm/ Premix 50 mls @ 12.5 mls/hr IV Q6H [facility] Stop: 09/02/19 19:29 Last Admin: 09/02/19 16:58 Dose: 12.5 mls/hr Sodium Chloride (Normal Saline) 1,000 mls @ 125 mls/hr IV ASDIRECTED [facility] Last Admin: 09/02/19 03:26 Dose: 125 mls/hr Ceftriaxone Sodium 1 gm/ (Sodium Chloride) 50 mls @ 100 mls/hr IV ONETIME ONE Stop: 08/31/19 21:44 Last Admin: 08/31/19 22:09 Dose: 100 mls/hr Lactated Ringer's (Ringers, Lactated) 1,000 mls @ 125 mls/hr IV ASDIRECTED [facility] Sodium Chloride (Normal Saline) 1,000 mls @ 125 mls/hr IV ASDIRECTED [facility] Last Admin: 09/06/19 03:09 Dose: 125 mls/hr Magnesium Sulfate 2 gm/ Premix 50 mls @ 25 mls/hr IV Q4H [facility] Stop: 09/07/19 07:59 Last Admin: 09/07/19 05:52 Dose: 25 mls/hr Albumin Human (Albumin 25%) 25 gm in 100 mls @ 25 mls/hr IV DAILY [facility] Stop: 09/09/19 12:59 Last Admin: 09/09/19 14:49 Dose: 25 mls/hr Albumin Human (Albumin 25%) 25 gm in 100 mls @ 25 mls/hr IV Q24H [facility] Stop: 09/09/19 17:59 Last Admin: 09/09/19 15:16 Dose: 25 mls/hr Sodium Chloride (Normal Saline) 1,000 mls @ 75 mls/hr IV ASDIRECTED [facility] Last Admin: 09/07/19 07:36 Dose: 75 mls/hr Magnesium Sulfate 2 gm/ Premix 50 mls @ 25 mls/hr IV Q6H [facility] Stop: 09/11/19 05:29 Last Admin: 09/11/19 03:33 Dose: 25 mls/hr Dexamethasone 14 mg/ Sodium (Chloride) 53.5 mls @ 104.902 mls/hr IV Q24H [facility] Stop: 09/12/19 12:01 Last Admin: 09/12/19 12:52 Dose: 104.902 mls/hr Piperacillin Sod/Tazobactam (Sod 3.375 gm/ Sodium Chloride) 50 mls @ 100 mls/ hr IV Q6H [facility] Last Admin: 09/09/19 02:06 Dose: 100 mls/hr Vancomycin HCl 1 gm/ Sodium (Chloride) 250 mls @ 166.667 mls/hr IV Q24H [facility] Last Admin: 09/10/19 20:33 Dose: 166.667 mls/hr Levofloxacin/Dextrose 750 mg/ (Premix) 150 mls @ 100 mls/hr IV Q24H [facility] Last Admin: 09/08/19 22:18 Dose: Not Given Levofloxacin/Dextrose 750 mg/ (Premix) 150 mls @ 100 mls/hr IV Q24H [facility] Last Admin: 09/08/19 22:57 Dose: 100 mls/hr Albumin Human (Albumin 25%) 25 gm in 100 mls @ 25 mls/hr IV DAILY [facility] Stop: 09/12/19 12:59 Last Admin: 09/12/19 08:53 Dose: 25 mls/hr Albumin Human (Albumin 25%) 25 gm in 100 mls @ 25 mls/hr IV Q24H [facility] Stop: 09/12/19 17:59 Last Admin: 09/12/19 14:09 Dose: 25 mls/hr Piperacillin/Tazobactam/ (Dextrose 3.375 gm/ Premix) 50 mls @ 100 mls/hr IV Q6H [facility] Stop: 09/14/19 05:00 Last Admin: 09/14/19 01:45 Dose: 100 mls/hr Levofloxacin/Dextrose 750 mg/ (Premix) 150 mls @ 100 mls/hr IV Q48H [facility] Last Admin: 09/11/19 00:17 Dose: 100 mls/hr Fluconazole/Sodium Chloride (200 mg/ Premix) 100 mls @ 100 mls/hr IV Q24H [facility] Last Admin: 09/12/19 18:15 Dose: 100 mls/hr Lidocaine HCl (Xylocaine-Mpf 1%) Confirm Administered Dose 2 mls @ as directed .ROUTE .[facility] ONE Stop: 09/11/19 07:16 Lactated Ringer's (Ringers, Lactated) Confirm Administered Dose 1,000 mls @ as directed .ROUTE .[facility] ONE Stop: 09/11/19 07:29 Imipramine HCl (Imipramine Hcl) 200 mg PO BEDTIME [facility] Imipramine HCl (Imipramine Hcl) 200 mg PO ONETIME ONE Stop: 08/31/19 21:31 Last Admin: 08/31/19 22:48 Dose: Not Given Lidocaine/Epinephrine (Xylocaine 1% With Epinephrine 1:100,000) Confirm Administered Dose 50 ml .ROUTE .[facility] ONE Stop: 09/11/19 06:32 Last Admin: 09/11/19 08:03 Dose: 2.5 ml Loperamide HCl (Imodium) 2 mg PO Q8H [facility] Last Admin: 09/06/19 07:38 Dose: 2 mg Loperamide HCl (Imodium) 4 mg PO Q6H [facility] Last Admin: 09/08/19 03:31 Dose: 4 mg Loperamide HCl (Imodium) 4 mg PO Q4H [facility] Last Admin: 09/11/19 05:03 Dose: Not Given Lorazepam (Ativan) 0.5 mg IVPUSH Q4H PRN PRN Reason: Nausea/Vomiting Last Admin: 09/02/19 18:36 Dose: 0.5 mg Magnesium Hydroxide (Milk Of Magnesia) 30 ml PO Q12H PRN PRN Reason: Constipation Midazolam HCl (Versed 1 Mg/Ml) Confirm Administered Dose 2 mg .ROUTE .[facility] ONE Stop: 09/11/19 07:11 Calcitriol ( Calcitriol) 0.25 Mg* *Pom 0.25 mg PO DAILY [facility] Last Admin: 09/08/19 16:57 Dose: Not Given Ondansetron HCl (Zofran) 4 mg IVPUSH ONETIME ONE Stop: 08/31/19 17:44 Last Admin: 08/31/19 17:57 Dose: 4 mg Pantoprazole Sodium (Protonix) 40 mg PO ACBREAKFAST [facility] Last Admin: 09/06/19 07:38 Dose: 40 mg Pharmacy Consult (Consult To Pharmacy) 1 each .XX ASDIRECTED [facility] Stop: 09/09/19 08:00 Propofol (Diprivan 20 Ml) Confirm Administered Dose 200 mg .ROUTE .STK-MED ONE Stop: 09/11/19 07:11 Tizanidine HCl (Zanaflex) 4 mg PO BID PRN PRN Reason: Muscle Spasm Last Admin: 09/10/19 08:48 Dose: 4 mg Tramadol HCl (Ultram) 50 mg PO Q4H PRN PRN Reason: Pain Last Admin: 09/11/19 02:10 Dose: 50 mg Vancomycin HCl (Vancomycin) 1 gm IV .PHARMACY TO DOSE [facility] - Exam Quality Assessment: No: Supplemental Oxygen General: Alert, Oriented, Cooperative, No Acute Distress Lungs: Normal Respiratory Effort GI/Abdominal Exam: Soft, No Distention, Other (ostomy right mid abdomen ) Extremities: No Pedal Edema Skin: Rash (erythematous excoriated rash around the ostomy laterally and inferiorly. ) Psy/Mental Status: Alert, Normal Affect Sepsis Event Note - Evaluation Sepsis Screening Result: No Definite Risk - Focused Exam Vital Signs: Vital Signs Temp Pulse Resp BP Pulse Ox 09/15/19 07:57 37.1 C 75 16 117/50 L 99 09/15/19 01:57 72 16 111/48 L 99 Date Exam was Performed: 09/15/19 Time Exam was Performed: 11:34 - Problem List & Annotations (1) Acute kidney injury SNOMED Code(s): 28737566, 94586703 Code(s): N17.9 - ACUTE KIDNEY FAILURE, UNSPECIFIED Status: Acute Current Visit: Yes (2) Severe dehydration SNOMED Code(s): 501765927 Code(s): E86.0 - DEHYDRATION Status: Acute Current Visit: Yes (3) Nausea SNOMED Code(s): 434383651 Code(s): R11.0 - NAUSEA Status: Acute Current Visit: Yes (4) History of left nephrectomy SNOMED Code(s): 55828317072474 Code(s): Z90.5 - ACQUIRED ABSENCE OF KIDNEY Status: Chronic Current Visit : No (5) Crohn's disease SNOMED Code(s): 45671020 Code(s): K50.90 - CROHN'S DISEASE, UNSPECIFIED, WITHOUT COMPLICATIONS Status: Chronic Current Visit: No Qualifiers: Gastrointestinal tract location: unspecified location Digestive disease complication type: unspecified complication Qualified Code(s): K50.919 - Crohn 's disease, unspecified, with unspecified complications - Problem List Review Problem List Initiated/Reviewed/Updated: Yes - My Orders Last 24 Hours: My Active Orders 09/14/19 14:00 HYDROmorphone [Dilaudid] 1 mg IVPUSH Q2H PRN 09/14/19 19:18 Dimethicone/Zinc Oxide [Rash Relief-Zinc Oxide [place]] 0.5 gm TOP ASDIRECTED PRN 09/15/19 11:15 Alum Hydrox/Mag Hydrox/Simeth [Mag-Al Plus] 30 ml .XX Q2H PRN 09/15/19 11:30 Silver Sulfadiazine [Silvadene 1% Cream 400 GM] 1 gm TOP BID - Plan Plan:: ASSESSMENT AND PLAN Fever and bacteremia-peripheral blood culture grew out staph hominis which I suspect is a contaminant. Her port culture and peripheral blood cultures grew out Klebsiella and fungal elements were thought to be seen in the port blood sample though no cultures have been positive for yeast. Port was removed on 09/10 and repeat cultures have been negative. -Continue ciprofloxacin, plan for total of 10 days from the time of port removal (end on 09/20) -Follow-up repeat blood culture collected 09/11 (-to date) Ostomy malfunction-increasing irritation and erythema over the past couple of days. Does not appear to be infected but she is having some leakage despite a variety of efforts to help with the adhesive. 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 Increasing difficulty with irritation around her ostomy site. -Local wound cares around her ostomy site -Management per Dr. Reno -Saline lock IV -Monitor and record ostomy output Hypomagnesemia-currently being supplemented. Hemolytic anemia, suspected-significant problem for her in the past as well as during recent hospitalizations. Thought be secondary to chronic anemia as well as hemolytic anemia secondary to splenomegaly versus smoldering sepsis-like picture since she is getting better with treatment for infection. Did not seem to respond to steroids. Levels stable to slightly improved. -No indication for transfusion today -Follow-up labs in the morning Maintenance issues - - DVT prophylaxis -SCDs - GI prophylaxis -PPI - Nutrition -regular diet Disposition -anticipate discharge home after the hospital stay Rad Pedersen MD
[2019-09-15] MEDS: Silver Sulfadiazine 1% Crm 400 GM Jar TOP SCH ×2 (11:24→20:02)
[2019-09-15] MEDS ORDERED: Silver Sulfadiazine 1% Crm 400 GM Jar TOP SCH (11:30)
[2019-09-15] MEDS: OLANZapine 5 MG Tab PO PRN (15:10)
[2019-09-15] MEDS: IMIPRAMINE HCL 100 MG PO SCH (20:02)
[2019-09-15] MEDS: Melatonin 3 MG Tab PO SCH (20:03)
[2019-09-15] MEDS: Scopolamine 1.5 MG Transdermal Patch TRDERM SCH (20:04)
[2019-09-16] MEDS: HYDROmorphone 1 MG/ML Syringe IVPUSH PRN ×2 (00:19→03:29)
[2019-09-16] MEDS: Magnesium Sulfate/Water 2 GM in Premix Bag 1 BAG IV SCH (03:28)
[2019-09-16] MEDS: LORazepam 0.5 MG Tab PO PRN (03:28)
[2019-09-16] MEDS: Atropine/Diphenoxylate 0.025-2.5 MG Tab PO SCH ×2 (03:28→05:33)
[2019-09-16] MEDS: OLANZapine 5 MG Tab PO PRN (03:28)
[2019-09-16] MEDS: tiZANidine 4 MG Tab PO PRN (03:28)
[2019-09-16] MEDS: Lactated Ringers 1,000 ML IV SCH (05:32)
[2019-09-16] MEDS: Loperamide 2 MG Cap PO SCH ×2 (05:33→08:04)
[2019-09-16] MEDS: OPIUM TINCTURE PO SCH (05:34)
[2019-09-16] MEDS: Amylase/Lipase/Protease 12,000 Unit Cap.CR PO SCH (08:03)
[2019-09-16] MEDS: Pantoprazole 40 MG Tab.CR PO SCH (08:03)
[2019-09-16] MEDS: Lactobacillus Rhamnosus GG (Probiotic) Cap PO SCH (08:04)
[2019-09-16] MEDS: DULoxetine 30 MG Cap PO SCH (08:04)
[2019-09-16] MEDS: Silver Sulfadiazine 1% Crm 400 GM Jar TOP SCH (08:05)
[2019-09-16] MEDS: Cefdinir 300 MG Cap PO SCH (08:05)
[2019-09-16] MEDS: VERIFY SCOP PATCH TOP SCH (08:07)
[2019-09-16] MEDS ORDERED: Magnesium Sulfate/Water 2 GM in Premix Bag 1 BAG IV SCH (09:00)
--- NOTE | 2019-09-16 13:25 | DISCH ---
ADMISSION DIAGNOSES: 1. Severe dehydration. 2. Open abdominal incision. 3. Acute kidney injury. 4. Nausea. 5. History of left nephrectomy. 6. Crohn's disease. 7. Chronic hypomagnesemia. 8. Status post subtotal colectomy with right-sided ostomy. 9. Hemolytic anemia. DISCHARGE DIAGNOSES: 1. Port removal on 09/11/2019. Surgeon: surgeon Alphonso. 2. Positive cultures from port, which required removal. 3. Left lower lobe infiltration. 4. Diarrhea, large amounts from ostomy, improving. 5. Open abdominal incision. 6. Acute kidney injury. 7. Severe dehydration, resolved. 8. Hemolytic anemia, requiring 6 units of transfused red blood cells. 9. History of left nephrectomy. 10.Crohn's disease. HISTORY: Aline Foley is a 58-year-old female, who had had colectomy, along with removal of her ileostomy. She presented to the emergency room on 08/31/2019 with several days of progressive nausea, 1 episode of vomiting. Workup in the emergency room showed an acute kidney injury. Creatinine of 3.9. Magnesium is low, and she was admitted to the hospital with acute kidney injury and severe dehydration. On 09/01/19, hemoglobin 10.7, and by receiving adequate fluids, she did improve. On 09/02/19, appetite was improving. Kidney function test has improved. Creatinine went to 2.4. On 09/03/19, she had a surgical consult due to open abdominal incision, which she had been packing at home. Hemoglobin was 7.8, and she was given 1 unit of packed red blood cells. Her hemoglobin was 7.8 following the transfusion. On 09/04/19, she started having large output from the ostomy. Clostridium difficile was ordered, along with Imodium and Lomotil. It was also noted that she had acute cystitis without hematuria and is on ceftriaxone. Magnesium was supplemented, and she was given 1 more unit of packed red blood cells. She continued to have an increased amount of output from the ostomy, and Imodium and Lomotil were increased. Hemoglobin was 8.5 after a total of 3 units of packed red blood cells. On 09/06/19, albumin was supplemented. Dietary consult for short-gut syndrome. Imodium was increased to 4 mg every 6 hours. Protonix was increased to 40 mg b.i.d. Dietary consult and protein supplements were given. IV prednisone was given for the hemolytic anemia. With Dietary consult, her ostomy output eventually started to decrease, and she was started on electrolyte solution to supplement for the short gut syndrome. Rehydration mixture recipes were given to Aline. She was rehydrating with tomato juice and water and also Gatorade and salt. With a total of 6 units transfused, her port was removed, due to culturing out Klebsiella pneumoniae, along with her blood cultures grew out the same. Aline was treated with antibiotics, IV Omnicef, and she will be able to be discharged to home with a bowel regime of Lomotil, Imodium, opium tincture, and Creon, and diet instructions with rehydrating solution. Aline was able to be discharged to home on 09/16/2019. Last labs on 09/16/2019, hemoglobin 8.4, platelets 124,000, potassium 3.8, creatinine 1.1. BNP 425. REVIEW OF SYSTEMS: CONSTITUTIONAL: No fever, chills, night sweats. She is very tired, has been taking Dilaudid IV every 2 hours. HEENT: Otherwise negative. NECK: Supple. HEART: Negative for chest pain, shortness of breath. LUNGS: No cough. ABDOMEN: As above. Ostomy has put out 1100 in the past 24 hours. Oral intake was 1780 and urine output 2150. Ostomy appliance has been leaking quite a bit in the last 2 days. EXTREMITIES: Without joint pain or swelling. NEUROLOGIC: Intact. SKIN: Without rash. PSYCHIATRIC: Mood and affect appropriate. PHYSICAL EXAMINATION: GENERAL: Aline Foley is a 58-year-old female. VITAL SIGNS: Height is 5 feet 6.93 inches, weight is 174 pounds. TPR at 0023, 96.7; 79; 16; blood pressure 102/46. HEENT: Negative. NECK: Supple. HEART: Regular rate and rhythm. LUNGS: Clear. ABDOMEN: Dressing dry and intact. Ileostomy is intact right now. EXTREMITIES: Without peripheral edema. DISPOSITION: Discharged to home. CONDITION: Stable and improving. FOLLOWUP: Appointment on 09/19/2019 at 8:45 a.m. Arrive at 8:30 a.m. for CMP, magnesium, BNP, CBC, and phos. NEW MEDICATIONS: 1. Creon 24,000 units 1 capsule 3 times a day with meals. 2. Lomotil 2 mg every 4 hours p.r.n. diarrhea, 180. 3. Culturelle 1 capsule twice daily, #60. 4. Imodium 4 mg every 4 hours #100 p.r.n. 5. Mag-Oxide 400 mg oral twice a day, #60. 6. Zofran 4 mg every 6 hours p.r.n. nausea, #30. 7. Opium tincture 10 mg/mL and she gets 5 mg 4 times a day, #28. 8. Tylenol 650 mg q.4 hours p.r.n. pain. 9. Cymbalta 60 mg oral daily. 10.Melatonin 9 mg at bedtime. 11.Zyprexa 5 mg every 12 hours. 12.Silvadene 1% cream twice daily to affected area. 13.Tizanidine 4 mg oral q.6 hours p.r.n. muscle spasms. 14.Tramadol 100 mg every 4 hours p.r.n. pain. 15.Vitamin B12 1 mL IM as directed. 16.Imipramine HCL 200 mg at bedtime. 17.Metoprolol tartrate 25 mg oral daily. 18.Nystatin 1 dose topical twice a day. 19.Pediatric multivitamin 1 tablet oral daily. 20.Imitrex 50 mg p.r.n. migraine headaches. 21.Norvasc 5 mg oral daily. 22.Calcitriol 0.25 mg oral daily. 23.Hydroxyzine 25 to 50 mg oral every 4 hours p.r.n. additional pain. DIET: Usual diet as tolerated. Drink 1 to 2 L of the special electrolyte beverages a day. OTHER ACTIVITY: Walk at least 6 times inside your house. May shower. Notify provider if any fever, increased pain, nausea, or vomiting. Keep site clean and dry. Change dressing twice a day.
--- NOTE | 2019-09-16 13:50 | PN ---
DATE OF SERVICE: 09/15/2019 The patient has been afebrile with stable vital signs. Her ostomy appliance remains the biggest problem at this point. We did get a good seal around midnight tonight and that has been holding. Upon discharge, she will need to be set up to see the ostomy nurse in [place] for ongoing management of that issue. Otherwise, she is tolerating the Gatorade with added salt very well. BNP is down to 993. Oral intake remains fairly good. Ostomy output was around 400, so there was some spillage, but overall it appears that the amount of output has decreased quite a bit. Her labs show no major problems. Creatinine is stable at 1.1. Hemoglobin continues to creep up at 9.2. We will tentatively plan for discharge home tomorrow. We will continue the magnesium supplementation until the time of discharge home. Shamar Reno MD /[id number] MTDD
--- NOTE | 2019-09-16 14:34 | PN ---
DATE OF SERVICE: 09/14/2019 The patient has been afebrile with stable vital signs. No major problems were noted overnight. She has been having a little bit of problem with ostomy appliance but seems to be getting worked out. Her BNP is down from 8000 to 4000. We will give her one additional dose of Lasix today. Otherwise, ostomy output has been only around 800, and at this point, if things remain stable over the weekend, we can have her discharged home on Monday. She is tolerating the oral hydration solution, which basically consists of Gatorade with some added sodium, and we will have the patient and instructed on how to mix this and tentatively plan for discharge home on Monday. Of note, her hemoglobin is slightly higher than yesterday at 8.6, so we are not seeing any ongoing significant hemolysis. Shamar Reno MD /[id number] MTDD
--- NOTE | 2019-09-18 18:42 | OR ---
DATE OF PROCEDURE: 09/11/2019 SURGEON: Shamar Reno MD PREOPERATIVE DIAGNOSIS: Possibly infected port. POSTOPERATIVE DIAGNOSIS: Possibly infected port. OPERATIVE PROCEDURE: Removal of Bard port located in right subclavian vein region. ANESTHESIA: Local plus IV sedation. INDICATION: This 58-year-old is presenting with two sets of blood cultures, one from periphery and one from the port, which draws different organisms, making it suspicious that the port is involved in a smoldering infection. Given this, the port is to be removed. Potential risks including further bleeding and infection were reviewed, and the patient wishes to proceed. DESCRIPTION OF PROCEDURE: The patient was taken to the operating room and placed in supine position. IV sedation was administered, after which the right anterior chest wall was prepped and draped. The area over the port was then anesthetized with 1% lidocaine mixed with Marcaine. A transverse incision was made and carried down through the skin and subcutaneous tissue. The port was then freed up of surrounding attachments. Cultures were then obtained from within the port capsule. Then, the port point where the port tubing left the capsule was dissected free such that the tubing was then freed up as well. Pursestring stitch of 3-0 Vicryl stitch around the port exit site was then placed and catheter was removed. The tip of the catheter was then also cut and sent for cultures. There was no gross purulence present. The wound was irrigated with meropenem-containing saline solution and then closed with some 3-0 and 4-0 Vicryl stitch deep and 4-0 Vicryl subcuticular stitch. Steri-Strips were applied. The patient was taken to the recovery room in satisfactory condition. Shamar Reno MD /[id number]
== END 2019-09-16 09:20 | disposition home or self-care (01) | DRG 981 ==
LOC: JP.ED 16:17 → JP.2SS 20:11 → JP.MS 09-08 14:19
PROVIDERS: ADMIT Internal Medicine; ATTEND Hospitalist
PROC: 30233N1 Transfusion of Nonautologous Red Blood Cells into Peripheral Vein, Percutaneous Approach (ICD-10-PCS; principal; 2019-09-03)
PROC: 30233N1 Transfusion of Nonautologous Red Blood Cells into Peripheral Vein, Percutaneous Approach (ICD-10-PCS; 2019-09-04)
PROC: 05PY03Z Removal of Infusion Device from Upper Vein, Open Approach (ICD-10-PCS; 2019-09-11)
PROC: 0JPT0WZ Removal of Totally Implantable Vascular Access Device from Trunk Subcutaneous Tissue and Fascia, Open Approach (ICD-10-PCS; 2019-09-11)
DX: N17.9 Acute kidney failure, unspecified (principal); J18.9 Pneumonia, unspecified organism; T80.211A Bloodstream infection due to central venous catheter, initial encounter; K50.919 Crohn's disease, unspecified, with unspecified complications; N30.00 Acute cystitis without hematuria; K56.609 Unspecified intestinal obstruction, unspecified as to partial versus complete obstruction; D58.9 Hereditary hemolytic anemia, unspecified; K50.912 Crohn's disease, unspecified, with intestinal obstruction; K94.13 Enterostomy malfunction; E86.0 Dehydration; R11.0 Nausea; H54.7 Unspecified visual loss; F41.9 Anxiety disorder, unspecified; E53.8 Deficiency of other specified B group vitamins; E83.42 Hypomagnesemia; Z90.89 Acquired absence of other organs; Z90.49 Acquired absence of other specified parts of digestive tract; G43.909 Migraine, unspecified, not intractable, without status migrainosus; Z93.2 Ileostomy status; Z90.710 Acquired absence of both cervix and uterus; Z90.5 Acquired absence of kidney; Z88.8 Allergy status to other drugs, medicaments and biological substances; Z79.899 Other long term (current) drug therapy
CPT/HCPCS: 36415; 74176; 80048; 81001; 83605; 83735; 84145; 85025; 86140; 87046; 87899 ×2; 89055; 96361; 96374; 96375; 99285; J1170; J2405; J7050; 36430; 71046; 80053; 83615; 83880; 84100; 85027; 85045; 86156; 86850; 86870; 86900; 86901; 86902; 86920; 86922; 86970; 87040; 87070; 87075; 87077; 87186; 87205; 87493; A9270-GY; J0696; J1100; J1450; J1940; J1956; J2001; J2060; J2250; J2543; J2704; J3010; J3370; J3475; J3490; J7030; J7120; P9016; P9047

== ENCOUNTER 2019-09-23 04:33 | Emergency (ER) | payer OTHER ==
[2019-09-23] MEDS ORDERED: HYDROmorphone 1 MG/ML Syringe IVPUSH ONE (05:27)
[2019-09-23] MEDS ORDERED: Haloperidol Lactate 5 MG/ML SDV IVPUSH ONE (05:28)
--- NOTE | 2019-09-23 05:41 | EDM.PDOC ---
<Frantz Delgado - Last Filed: 09/23/19 07:30> ED HPI GENERAL MEDICAL PROBLEM - General Chief Complaint: Abdominal Pain Stated Complaint: ABD PAIN Time Seen by Provider: 09/23/19 05:10 Source of Information: Reports: Patient, Family History Limitations: Reports: No Limitations - History of Present Illness INITIAL COMMENTS - FREE TEXT/NARRATIVE: This is a 58-year-old with history of Crohn's disease and multiple prior abdominal surgeries, including redo colostomy and current abdominal incision healing by secondary intention, who presents with abdominal pain. History is primarily provided by her as the patient is hysterical. Reportedly she was doing well after going home from the hospital last week. 2 days ago she was out and running some errands around town. Yesterday she began having intermittent abdominal pain and decreased appetite. This was accompanied by some nausea. The pain is seemingly epigastric in nature and also between her open incision and her ostomy site. The pain is severe. At this time the patient is primarily interested in having something to drink, she is unable to provide any more history. abd pain Pain Score (Numeric/FACES): 9 - Related Data Allergies Allergy/AdvReac Type Severity Reaction Status Date / Time No Known Allergies Allergy Verified 09/23/19 04:43 Home Meds: Home Meds Acetaminophen [Acetaminophen Extra Strength] 1,000 mg PO Q4HR PRN 06/17/19 [ History] Cyanocobalamin (Vitamin B-12) [Cyanocobalamin Injection] 1 ml IM ASDIRECTED 12/28 [History] Imipramine HCl 200 mg PO BEDTIME 06/17/19 [History] Melatonin 3 mg PO BEDTIME 06/17/19 [History] Nystatin [Nystatin Oint] 1 dose TOP BID PRN 06/17/19 [History] Ondansetron [Zofran ODT] 4 mg PO Q4HR PRN 06/17/19 [History] Pedi Multivit No.25/Folic Acid [Flintstones Multivit Chew Tab] 1 tab PO DAILY [History] SUMAtriptan [Imitrex] 50 mg PO BTNUNITS PRN 06/17/19 [History] tiZANidine [Zanaflex] 4 mg PO BID PRN 06/17/19 [History] hydrOXYzine HCL [hydrOXYzine] 25 - 50 mg PO Q4H PRN #50 tablet 07/29/19 [Rx] Metoprolol Tartrate 25 mg PO DAILY 08/31/19 [History] amLODIPine [Norvasc] 5 mg PO DAILY 08/31/19 [History] calcitrioL [Calcitriol] 0.25 mg PO DAILY 08/31/19 [History] Opium Tincture 5 mg PO QID #28 ml 09/11/19 [Rx] Acetaminophen [Tylenol] 650 mg PO Q4H PRN tablet 09/16/19 [Rx] Amylase/Lipase/Protease [Creon DR 12,000 Units] 2 cap PO TIDMEALS #180 cap.cr [Rx] Atropine/Diphenoxylate [Diphenoxylate-Atropine] 2 tab PO Q4H #180 tablet [Rx] DULoxetine [Cymbalta] 60 mg PO DAILY cap 09/16/19 [Rx] Lactobacillus Rhamnosus GG [Culturelle] 1 cap PO BID #60 cap 09/16/19 [Rx] Loperamide [Imodium] 4 mg PO Q4H #100 cap 09/16/19 [Rx] Magnesium Oxide 400 mg PO BID #60 tab 09/16/19 [Rx] Melatonin 9 mg PO BEDTIME tablet 09/16/19 [Rx] OLANZapine [ZyPREXA] 5 mg PO Q12H PRN tablet 09/16/19 [Rx] Ondansetron [Zofran ODT] 4 mg PO Q6H PRN #30 tab.dis 09/16/19 [Rx] Silver Sulfadiazine [Silvadene 1% Cream 400 GM] 0 gm TOP BID jar 09/16/19 [Rx] tiZANidine [Zanaflex] 4 mg PO Q6H PRN tablet 09/16/19 [Rx] traMADol [Ultram] 100 mg PO Q4H PRN tablet 09/16/19 [Rx] Past Medical History HEENT History: Reports: Impaired Vision Cardiovascular History: Reports: None Gastrointestinal History: Reports: Bowel Obstruction, Other (See Below) Other Gastrointestinal History: hernia, multiple bowel surgerys Genitourinary History: Reports: None [employer] History: Reports: Neurological History: Reports: Migraines Psychiatric History: Reports: Anxiety Insulin Pump Model and Street Light Wirer: no Hematologic History: Reports: Anemia, B12 Deficiency, Blood Transfusion(s), Folic Acid, Iron Deficiency - Infectious Disease History Infectious Disease History: Reports: Chicken Pox, Mononucleosis - Past Surgical History Head Surgeries/Procedures: Reports: None HEENT Surgical History: Reports: Adenoidectomy, Tonsillectomy Cardiovascular Surgical History: Reports: Cardiac Ablation GI Surgical History: Reports: Appendectomy, Colonoscopy, EGD, Other (See Below) Other GI Surgeries/Procedures: hernia, has ileostomy. ileostomy Female Surgical History: Reports: Hysterectomy Neurological Surgical History: Reports: None Dermatological Surgical History: Reports: None Social & Family History - Family History Family Medical History: Noncontributory - Tobacco Use Smoking Status *Q: Never Smoker - Caffeine Use Caffeine Use: Reports: Soda - Recreational Drug Use Recreational Drug Use: No ED ROS GENERAL - Review of Systems Review Of Systems: See Below Constitutional: Reports: No Symptoms HEENT: Reports: No Symptoms Respiratory: Reports: No Symptoms Cardiovascular: Reports: No Symptoms Endocrine: Reports: No Symptoms GI/Abdominal: Reports: Abdominal Pain : Reports: No Symptoms Musculoskeletal: Reports: No Symptoms Skin: Reports: No Symptoms Neurological: Reports: No Symptoms Psychiatric: Reports: No Symptoms Hematologic/Lymphatic: Reports: No Symptoms Immunologic: Reports: No Symptoms ED EXAM, GI/ABD - Physical Exam Exam: See Below Exam Limited By: No Limitations General Appearance: Moderate Distress Ears: Normal External Exam Nose: Normal Inspection Throat/Mouth: Normal Inspection Head: Atraumatic, Normocephalic Neck: Normal Inspection Respiratory/Chest: Lungs Clear Cardiovascular: Regular Rate, Rhythm GI/Abdominal Exam: Soft, No Distention, Other (Ostomy with green output, packing in her open abdominal wound, she has mild diffuse tenderness.) Extremities: Normal Inspection Neurological: Alert, Oriented Psychiatric: Anxious, Tearful Skin Exam: Warm, Dry Course - Vital Signs Last Recorded V/S: Last Vital Signs Temp 96.8 F L 09/23/19 04:53 Pulse 99 09/23/19 04:53 Resp 20 09/23/19 04:53 BP 161/85 H 09/23/19 04:53 Pulse Ox 100 09/23/19 04:53 - Orders/Labs/Meds Labs: Laboratory Tests 09/23/19 09/23/19 Range/Units 06:10 06:10 WBC 5.8 (4.5-11.0) K/uL RBC 3.95 (3.30-5.50) M/uL Hgb 11.1 L D (12.0-15.0) g/dL Hct 35.0 L (36.0-48.0) % MCV 89 (80-98) fL MCH 28 (27-31) pg MCHC 32 (32-36) % Plt Count 164 (150-400) K/uL Sodium 140 (140-148) mmol/L Potassium 4.2 (3.6-5.2) mmol/L Chloride 103 (100-108) mmol/L Carbon Dioxide 21 (21-32) mmol/L Anion Gap 15.7 H (5.0-14.0) mmol/L BUN 20 H (7-18) mg/dL Creatinine 1.2 H (0.6-1.0) mg/dL Est Cr Clr Drug Dosing 49.09 mL/min Estimated GFR (MDRD) 46 L (>60) Glucose 114 H (74-106) mg/dL Calcium 9.9 D (8.5-10.1) mg/dL Total Bilirubin 1.3 H D (0.2-1.0) mg/dL AST 31 D (15-37) U/L ALT 36 D (12-78) U/L Alkaline Phosphatase 131 H D (46-116) U/L Total Protein 9.2 H (6.4-8.2) g/dL Albumin 4.6 (3.4-5.0) g/dL Globulin 4.6 H (2.3-3.5) g/dL Albumin/Globulin Ratio 1.0 L (1.2-2.2) Lipase 164 (73-393) U/L Meds: Medications Discontinued Medications Generic Name Dose Route Start Last Admin Trade Name Freq PRN Reason Stop Dose Admin Haloperidol Lactate 2 mg 09/23/19 05:28 Haldol IVPUSH 09/23/19 05:29 ONETIME ONE Haloperidol Lactate 2 mg 09/23/19 06:16 09/23/19 06:27 Haldol IM 09/23/19 06:17 2 mg ONETIME ONE Administration Hydromorphone HCl 1 mg 09/23/19 05:27 Dilaudid IVPUSH 09/23/19 05:28 ONETIME ONE Hydromorphone HCl 1 mg 09/23/19 06:17 09/23/19 06:26 Dilaudid IM 09/23/19 06:18 1 mg ONETIME ONE Administration Hydromorphone HCl 0.5 mg 09/23/19 07:30 09/23/19 07:43 Dilaudid IVPUSH 09/23/19 07:31 0.5 mg ONETIME ONE Administration Lidocaine HCl Confirm 09/23/19 07:14 Xylocaine-Mpf 1% Administered 09/23/19 07:15 Dose 2 mls @ as directed .ROUTE .STK-MED ONE - Re-Assessments/Exams Free Text/Narrative Re-Assessment/Exam: This is a 58-year-old with a very complex medical and surgical history who presents with concerns of abdominal pain. On exam she is found to be quite distressed, apparent psychologic component to her presentation, fortunately her vitals and exam are actually quite reassuring. She was recently admitted and had a complex hospital course including bacteremia and apparent pneumonia. I think given her complex history we do need to check abdominal labs and a CT scan, however it would not be surprising to find that her presentation is largely psychogenic. We are going to give her a dose of IV Dilaudid as well as Haldol for nausea/ hysteria. 09/23/19 05:42 Free Text/Narrative Re-Assessment/Exam: Patient more comfortable but still concerned of now primarily RUQ pain. Labs notable for elevated Bili and Alk phos, otherwise largely at baseline. Read of CT pending, non-contrast obtained due to lack of IV contrast. Gallbladder does seem enlarged but no appreciable wall thickening. Anesthesia was able to place IV. We are going to give a dose of dilaudid and obtain RUQ ultrasound to further investigate gall bladder. Patient is quite concerned about her home pain plan, does have PCP appointment later this AM for this. She was signed out to Dr Sainz at end of shift pending imaging results and final disposition. 09/23/19 07:30 Departure - Departure Disposition: Home, Self-Care 01 Clinical Impression: Abdominal pain Qualifiers: Abdominal location: upper abdomen, unspecified Qualified Code(s): R10.10 - Upper abdominal pain, unspecified - Discharge Information Instructions: Abdominal Pain, Adult, [id number] Referrals: Lisa Gerber MD [Primary Care Provider] - Forms: ED Department Discharge Care Plan Goals: Continue your medications as prescribed and recheck later this week as scheduled. Sepsis Event Note (ED) - Evaluation Sepsis Screening Result: No Definite Risk - Focused Exam Vital Signs: Vital Signs Temp Pulse Resp BP Pulse Ox 09/23/19 04:53 96.8 F L 99 20 161/85 H 100 09/23/19 04:52 96.8 F L 99 20 161/85 H 100 <Yair Sainz - Last Filed: 09/23/19 09:30> Course - Re-Assessments/Exams Free Text/Narrative Re-Assessment/Exam: 09/23/19 08:18 FINDINGS: No abnormal intra pulmonary nodular densities through the lung bases. No evidence of pleural effusion. Normal size cardiac silhouette without any evidence of pericardial effusion. No focal hepatic pathology. Splenomegaly; stable in appearance. No pancreatic pathology. Distended gallbladder without any pericholecystic inflammatory changes. No evidence of biliary duct dilatation. No adrenal pathology. Status post left nephrectomy. The right kidney is unremarkable. No retroperitoneal lymphadenopathy. Colectomy with the ostomy in the right lower quadrant of the abdomen. A 4.1 cm loculated low-dense fluid collection in the presacral location; increasing in size when compared to August 31, 2019; this may represent distention of the rectal stump. No pathology surrounding the ostomy site in the right lower quadrant of the abdomen to explain the patient`s clinical symptomatology. Impression : 1. No pathology surrounding the ostomy site. 2. Status post colectomy and left nephrectomy with an ostomy in the right lower quadrant of the abdomen. 3. Increasing low-dense fluid collection presacral area; rule out distention of the rectal stump. 4. Splenomegaly ; stable in appearance. Care turned over from Dr. Delgado pending ultrasound report. Gallbladder is distended but no inflammation or pathologic findings. This was discussed with the patient and she became very emotional and insisted on being told what was the problem because she has so many sweats during the day and night over the past couple of days. I did review the above CT scan and will discuss the significance of the distention of the rectal stump finding. She refused to do the ultrasound until having more narcotic pain medication which is very concerning. 09/23/19 08:[address] report with Dr. Reno, nothing was acutely concerning. Patient did calm down and was willing to go home when offered 15 additional doses of tramadol to take home. This was supplied through [facility]. Recheck later this week with her primary providers as scheduled. Departure - Departure Time of Disposition: 08:55
[2019-09-23] MEDS ORDERED: Haloperidol Lactate 5 MG/ML SDV IM ONE (06:16)
[2019-09-23] MEDS ORDERED: HYDROmorphone 1 MG/ML Syringe IM ONE (06:17)
[2019-09-23] MEDS ORDERED: Lidocaine 1% 2 ML ONE (07:14)
[2019-09-23] MEDS ORDERED: HYDROmorphone 0.5 MG/0.5 ML Syringe IVPUSH ONE (07:30)
--- NOTE | 2019-09-23 07:43 | CRLCT ---
INDICATION: Pain around the ostomy site. COMPARISON: CT abdomen and pelvis without intravenous or oral contrast August 31, 2019. TECHNIQUE: CT abdomen and pelvis without intravenous or oral contrast; coronal and sagittal reformats. FINDINGS: No abnormal intra pulmonary nodular densities through the lung bases. No evidence of pleural effusion. Normal size cardiac silhouette without any evidence of pericardial effusion. No focal hepatic pathology. Splenomegaly; stable in appearance. No pancreatic pathology. Distended gallbladder without any pericholecystic inflammatory changes. No evidence of biliary duct dilatation. No adrenal pathology. Status post left nephrectomy. The right kidney is unremarkable. No retroperitoneal lymphadenopathy. Colectomy with the ostomy in the right lower quadrant of the abdomen. A 4.1 cm loculated low-dense fluid collection in the presacral location; increasing in size when compared to August 31, 2019; this may represent distention of the rectal stump. No pathology surrounding the ostomy site in the right lower quadrant of the abdomen to explain the patient`s clinical symptomatology. Impression : 1. No pathology surrounding the ostomy site. 2. Status post colectomy and left nephrectomy with an ostomy in the right lower quadrant of the abdomen. 3. Increasing low-dense fluid collection presacral area; rule out distention of the rectal stump. 4. Splenomegaly ; stable in appearance. Please note that all CT scans at this facility use dose modulation, iterative reconstruction, and/or weight-based dosing when appropriate to reduce radiation dose to as low as reasonably achievable. Dictated by Yomaira Mary MD @ Sep 23 2019 7:33AM Signed by Dr. Yomaira Mary @ Sep 23 2019 7:41AM
--- NOTE | 2019-09-23 09:26 | US ---
Abdomen Ltd CLINICAL HISTORY: Elevated LFTs COMPARISON: CT earlier same day. TECHNIQUE: Real-time images were obtained through the gallbladder fossa. FINDINGS: The limited visualized liver is free of mass or biliary dilatation. The echotexture appears normal. The gallbladder is distended measuring 10 cm in length. This correlates to findings on. There is no wall thickening. The common bile duct measures 5 mm. IMPRESSION: Very limited study Gallbladder distention without stones wall thickening or pericholecystic fluid. Common bile duct is normal
== END 2019-09-23 08:56 | disposition home or self-care (01) ==
LOC: JP.ED 04:33
DX: R10.10 Upper abdominal pain, unspecified (principal); G43.909 Migraine, unspecified, not intractable, without status migrainosus; Z90.49 Acquired absence of other specified parts of digestive tract; Z98.890 Other specified postprocedural states; Z90.710 Acquired absence of both cervix and uterus; Z79.899 Other long term (current) drug therapy
CPT/HCPCS: 36415; 74176; 76705; 80053; 83690; 85027; 96372; 96374; 99284; J1170; J1630; J2001

== ENCOUNTER 2019-10-22 15:52 | Inpatient (IN) | payer MEDICARE, OTHER ==
[2019-10-22] MEDS ORDERED: Sodium Chloride 0.9% 1,000 ML IV SCH ×2 (17:00→19:25)
--- NOTE | 2019-10-22 17:10 | EDM.PDOC ---
ED HPI GENERAL MEDICAL PROBLEM - General Chief Complaint: Abdominal Pain Stated Complaint: DIARRHEA Time Seen by Provider: 10/22/19 16:10 Source of Information: Reports: Patient, Family History Limitations: Reports: No Limitations - History of Present Illness INITIAL COMMENTS - FREE TEXT/NARRATIVE: pt has had 2 procedures to revise her ileostomy. She has beem pouring out huge v oumes of fluid in the bag. She feels like she is not keeping up with the fluid Onset: Gradual Duration: Hour(s): Location: Reports: Abdomen, Generalized Associated Symptoms: Reports: Other (huge voumes of output in the ileostomy) Upper Anterior Abdominal Pain Score (Numeric/FACES): 8 - Related Data Allergies Allergy/AdvReac Type Severity Reaction Status Date / Time No Known Allergies Allergy Verified 10/22/19 16:15 Home Meds: Home Meds Acetaminophen [Acetaminophen Extra Strength] 1,000 mg PO Q4HR PRN 06/17/19 [History] Cyanocobalamin (Vitamin B-12) [Cyanocobalamin Injection] 1 ml IM ASDIRECTED 06/17/19 [History] Imipramine HCl 200 mg PO BEDTIME 06/17/19 [History] Nystatin [Nystatin Oint] 1 dose TOP BID PRN 06/17/19 [History] Ondansetron [Zofran ODT] 4 mg PO Q4HR PRN 06/17/19 [History] Pedi Multivit No.25/Folic Acid [Flintstones Multivit Chew Tab] 1 tab PO DAILY 06/17/19 [History] SUMAtriptan [Imitrex] 50 mg PO BTNUNITS PRN 06/17/19 [History] tiZANidine [Zanaflex] 4 mg PO BID PRN 06/17/19 [History] hydrOXYzine HCL [hydrOXYzine] 25 - 50 mg PO Q4H PRN #50 tablet 07/29/19 [Rx] Acetaminophen [Tylenol] 650 mg PO Q4H PRN tablet 09/16/19 [Rx] Amylase/Lipase/Protease [Creon DR 12,000 Units] 2 cap PO TIDMEALS #180 cap.cr 09/16/19 [Rx] DULoxetine [Cymbalta] 60 mg PO DAILY cap 09/16/19 [Rx] Lactobacillus Rhamnosus GG [Culturelle] 1 cap PO BID #60 cap 09/16/19 [Rx] Loperamide [Imodium] 4 mg PO Q4H #100 cap 09/16/19 [Rx] Melatonin 9 mg PO BEDTIME tablet 09/16/19 [Rx] OLANZapine [ZyPREXA] 5 mg PO Q12H PRN tablet 09/16/19 [Rx] traMADol [Ultram] 100 mg PO Q4H PRN tablet 09/16/19 [Rx] Atropine/Diphenoxylate [Diphenoxylate-Atropine] 2 tab PO Q6H 10/22/19 [History] Magnesium Oxide 400 mg PO TID 10/22/19 [History] Potassium Chloride 1 tab PO BID 10/22/19 [History] Past Medical History HEENT History: Reports: Impaired Vision Cardiovascular History: Reports: None Gastrointestinal History: Reports: Bowel Obstruction, Other (See Below) Other Gastrointestinal History: hernia, multiple bowel surgerys Genitourinary History: Reports: None [employer] HELPER History: Reports: Neurological History: Reports: Migraines Psychiatric History: Reports: Anxiety Insulin Pump Model and Radiology Director: no Hematologic History: Reports: Anemia, B12 Deficiency, Blood Transfusion(s), Folic Acid, Iron Deficiency - Infectious Disease History Infectious Disease History: Reports: Chicken Pox - Past Surgical History Head Surgeries/Procedures: Reports: None HEENT Surgical History: Reports: Adenoidectomy, Tonsillectomy Cardiovascular Surgical History: Reports: Cardiac Ablation GI Surgical History: Reports: Appendectomy, Colonoscopy, EGD, Other (See Below) Other GI Surgeries/Procedures: hernia, has ileostomy. ileostomy Female Surgical History: Reports: Hysterectomy Neurological Surgical History: Reports: None Dermatological Surgical History: Reports: None Social & Family History - Family History Family Medical History: Noncontributory - Tobacco Use Smoking Status *Q: Never Smoker Second Hand Smoke Exposure: No - Caffeine Use Caffeine Use: Reports: None - Recreational Drug Use Recreational Drug Use: No ED ROS GENERAL - Review of Systems Review Of Systems: See Below Constitutional: Reports: Malaise, Weakness HEENT: Reports: No Symptoms Respiratory: Reports: No Symptoms Cardiovascular: Reports: No Symptoms Endocrine: Reports: No Symptoms, Fatigue GI/Abdominal: Reports: Diarrhea, Other (huge volumes of output with the ileostomy) Musculoskeletal: Reports: Muscle Stiffness Skin: Reports: No Symptoms ED EXAM, GI/ABD - Physical Exam Exam: See Below Text/Narrative:: pt arrived with a history of discomfort in the upper abdoman. She feels like she has a burning sensation present. She has continued to put out large volumes of stool with the ileostomy. Exam Limited By: No Limitations General Appearance: Alert, Anxious, Moderate Distress, Other ( she feels like she has emptied her bag at least 10 times today very watery. ) Ears: Normal TMs Nose: Normal Inspection Throat/Mouth: Normal Inspection Head: Atraumatic Neck: Normal Inspection Respiratory/Chest: No Respiratory Distress Cardiovascular: Regular Rate, Rhythm GI/Abdominal Exam: Other ( wounds look good. She is tender in the epigastric area. She has alot of burning in the area. She has been scoped in the past and she was found to have irritation) (Female) Exam: Deferred Rectal (Female) Exam: Deferred Back Exam: Normal Inspection Extremities: Normal Inspection Neurological: Alert, Oriented, Normal Cognition Psychiatric: Anxious Course - Vital Signs Last Recorded V/S: Last Vital Signs Temp 36.1 C 10/27/19 14:41 Pulse 70 10/27/19 14:41 Resp 18 10/27/19 14:41 BP 105/59 L 10/27/19 14:41 Pulse Ox 94 L 10/27/19 14:41 - Orders/Labs/Meds Orders: Medication Orders Acetaminophen (Tylenol) 650 mg PO Q4H PRN PRN Reason: Pain (Mild 1-3)/fever Last Admin: 10/27/19 03:15 Dose: 650 mg Documented by: Admin: 10/24/19 04:45 Dose: 650 mg Documented by: KVNG Lipase/Protease/Amylase (Gus Greer 12,000 Units) 2 cap PO TIDMEALS [facility]E Tab Admin: 10/27/19 17:03 Dose: 2 cap Documented by: Admin: 10/27/19 12:30 Dose: 2 cap Documented by: Admin: 10/27/19 08:50 Dose: 2 cap Documented by: Admin: 10/26/19 16:43 Dose: 2 cap Documented by: Admin: 10/26/19 13:59 Dose: 2 cap Documented by: Admin: 10/26/19 08:48 Dose: 2 cap Documented by: Admin: 10/25/19 16:37 Dose: 2 cap Documented by: Admin: 10/25/19 12:38 Dose: 2 cap Documented by: Admin: 10/25/19 07:43 Dose: 2 cap Documented by: Admin: 10/24/19 18:32 Dose: 2 cap Documented by: Admin: 10/24/19 13:05 Dose: 2 cap Documented by: Admin: 10/24/19 07:56 Dose: 2 cap Documented by: Admin: 10/23/19 18:19 Dose: 2 cap Documented by: Admin: 10/23/19 11:40 Dose: 2 cap Documented by: Admin: 10/23/19 08:38 Dose: 2 cap Documented by: ANJELICA Diphenoxylate HCl/Atropine (Lomotil 0.025-2.5 Mg) 2 tab PO Q6H [facility]SIE Barth Admin: 10/27/19 17:06 Dose: 2 tab Documented by: Admin: 10/27/19 09:04 Dose: 2 tab Documented by: Admin: 10/27/19 01:56 Dose: 2 tab Documented by: Admin: 10/26/19 20:47 Dose: 2 tab Documented by: Admin: 10/26/19 14:01 Dose: 2 tab Documented by: Admin: 10/26/19 09:03 Dose: 2 tab Documented by: Admin: 10/26/19 02:35 Dose: 2 tab Documented by: Admin: 10/25/19 19:52 Dose: 2 tab Documented by: Admin: 10/25/19 14:33 Dose: 2 tab Documented by: Admin: 10/25/19 09:28 Dose: 2 tab Documented by: Admin: 10/25/19 01:25 Dose: 2 tab Documented by: Admin: 10/24/19 20:07 Dose: 2 tab Documented by: Admin: 10/24/19 14:58 Dose: 2 tab Documented by: Admin: 10/24/19 07:55 Dose: 2 tab Documented by: Admin: 10/24/19 03:01 Dose: 2 tab Documented by: Admin: 10/23/19 20:48 Dose: 2 tab Documented by: Admin: 10/23/19 14:23 Dose: 2 tab Documented by: Admin: 10/23/19 08:39 Dose: 2 tab Documented by: Admin: 10/23/19 01:56 Dose: 2 tab Documented by: Admin: 10/22/19 20:52 Dose: 2 tab Documented by: MARCELINO Duloxetine HCl (Cymbalta) 60 mg PO DAILY [facility] Tab Admin: 10/27/19 08:49 Dose: 60 mg Documented by: Admin: 10/26/19 08:49 Dose: 60 mg Documented by: Admin: 10/25/19 09:04 Dose: 60 mg Documented by: Admin: 10/24/19 09:37 Dose: 60 mg Documented by: Admin: 10/23/19 08:38 Dose: 60 mg Documented by: ANJELICA Sodium Chloride (Normal Saline) 1,000 mls @ 25 mls/hr IV ASDIRECTED [facility] Magnesium Sulfate 2 gm/ Premix 50 mls @ 25 mls/hr IV Q4H [facility] Last Admin: 10/27/19 17:04 Dose: 25 mls/hr Documented by: Infusion: 10/27/19 15:52 Dose: 25 mls/hr Documented by: Admin: 10/27/19 13:52 Dose: 25 mls/hr Documented by: Infusion: 10/27/19 12:40 Dose: 25 mls/hr Documented by: Admin: 10/27/19 10:40 Dose: 25 mls/hr Documented by: Infusion: 10/27/19 07:39 Dose: 25 mls/hr Documented by: Admin: 10/27/19 05:39 Dose: 25 mls/hr Documented by: Infusion: 10/27/19 03:58 Dose: 25 mls/hr Documented by: Admin: 10/27/19 01:58 Dose: 25 mls/hr Documented by: Infusion: 10/26/19 23:38 Dose: 25 mls/hr Documented by: Admin: 10/26/19 21:38 Dose: 25 mls/hr Documented by: Infusion: 10/26/19 20:03 Dose: 25 mls/hr Documented by: Admin: 10/26/19 18:03 Dose: 25 mls/hr Documented by: Infusion: 10/26/19 15:59 Dose: 25 mls/hr Documented by: Admin: 10/26/19 13:59 Dose: 25 mls/hr Documented by: Infusion: 10/26/19 12:54 Dose: 25 mls/hr Documented by: Admin: 10/26/19 10:54 Dose: 25 mls/hr Documented by: DOREEN Lactated Ringer's (Ringers, Lactated) 1,000 mls @ 60 mls/hr IV ASDIRECTED [facility] Last Admin: 10/27/19 17:00 Dose: 60 mls/hr Documented by: Infusion: 10/27/19 17:00 Dose: 60 mls/hr Documented by: Admin: 10/27/19 05:45 Dose: 60 mls/hr Documented by: Infusion: 10/27/19 03:41 Dose: 60 mls/hr Documented by: Admin: 10/26/19 11:00 Dose: 60 mls/hr Documented by: DOREEN Albumin Human (Albumin 25%) 25 gm in 100 mls @ 25 mls/hr IV Q24H [facility] Stop: 10/29/19 12:59 Last Admin: 10/27/19 09:04 Dose: 25 mls/hr Documented by: DEWEY Albumin Human (Albumin 25%) 25 gm in 100 mls @ 25 mls/hr IV Q24H [facility] Stop: 10/29/19 16:59 Last Admin: 10/27/19 12:44 Dose: 25 mls/hr Documented by: HARSHIL Imipramine HCl (Imipramine Hcl) 200 mg PO BEDTIME [facility] Last Admin: 10/26/19 20:46 Dose: 200 mg Documented by: Admin: 10/25/19 20:54 Dose: 200 mg Documented by: Admin: 10/24/19 20:07 Dose: 200 mg Documented by: Admin: 10/23/19 20:48 Dose: 200 mg Documented by: Admin: 10/22/19 21:04 Dose: 200 mg Documented by: MARCELINO Lactobacillus Rhamnosus (Culturelle) 1 cap PO BID [facility] Admin: 10/27/19 08:50 Dose: 1 cap Documented by: Admin: 10/26/19 20:47 Dose: 1 cap Documented by: Admin: 10/26/19 08:49 Dose: 1 cap Documented by: Admin: 10/25/19 20:53 Dose: 1 cap Documented by: Admin: 10/25/19 09:04 Dose: 1 cap Documented by: Admin: 10/24/19 20:07 Dose: 1 cap Documented by: Admin: 10/24/19 09:37 Dose: 1 cap Documented by: Admin: 10/23/19 20:48 Dose: 1 cap Documented by: Admin: 10/23/19 08:38 Dose: 1 cap Documented by: Admin: 10/22/19 20:52 Dose: 1 cap Documented by: MARCELINO Liraglutide (Victoza) 1.2 mg SUBCUT DAILY [facility] Admin: 10/27/19 08:50 Dose: 1.2 mg Documented by: DEWEY Loperamide HCl (Imodium) 4 mg PO QID [facility] Admin: 10/27/19 17:02 Dose: 4 mg Documented by: Admin: 10/27/19 09:13 Dose: 4 mg Documented by: Admin: 10/27/19 05:39 Dose: 4 mg Documented by: Admin: 10/26/19 21:39 Dose: 4 mg Documented by: Admin: 10/26/19 16:44 Dose: 4 mg Documented by: Admin: 10/26/19 09:03 Dose: 4 mg Documented by: Admin: 10/26/19 06:00 Dose: 4 mg Documented by: Admin: 10/25/19 21:01 Dose: 4 mg Documented by: Admin: 10/25/19 16:36 Dose: 4 mg Documented by: MARBELLA Lorazepam (Ativan) 0.5 mg IVPUSH Q4H PRN PRN Reason: Nausea Magnesium Oxide (Magnesium Oxide) 400 mg PO TID [facility] Admin: 10/27/19 13:52 Dose: 400 mg Documented by: Admin: 10/27/19 08:49 Dose: 400 mg Documented by: Admin: 10/26/19 20:47 Dose: 400 mg Documented by: Admin: 10/26/19 13:59 Dose: 400 mg Documented by: Admin: 10/26/19 08:49 Dose: 400 mg Documented by: Admin: 10/25/19 20:53 Dose: 400 mg Documented by: Admin: 10/25/19 14:29 Dose: 400 mg Documented by: Admin: 10/25/19 09:04 Dose: 400 mg Documented by: Admin: 10/24/19 20:07 Dose: 400 mg Documented by: Admin: 10/24/19 13:05 Dose: 400 mg Documented by: Admin: 10/24/19 09:37 Dose: 400 mg Documented by: Admin: 10/23/19 20:48 Dose: 400 mg Documented by: Admin: 10/23/19 14:23 Dose: 400 mg Documented by: Admin: 10/23/19 08:38 Dose: 400 mg Documented by: Admin: 10/22/19 20:52 Dose: 400 mg Documented by: MARCELINO Melatonin (Melatonin) 9 mg PO BEDTIME [facility] Admin: 10/26/19 20:47 Dose: 9 mg Documented by: Admin: 10/25/19 20:53 Dose: 9 mg Documented by: Admin: 10/24/19 20:07 Dose: 9 mg Documented by: Admin: 10/23/19 20:48 Dose: 9 mg Documented by: Admin: 10/22/19 20:53 Dose: 9 mg Documented by: MARCELINO Multivitamins/Iron (Child Chew Iron) 1 tab PO DAILY [facility] Admin: 10/27/19 08:48 Dose: 1 tab Documented by: Admin: 10/26/19 08:49 Dose: 1 tab Documented by: Admin: 10/25/19 09:04 Dose: 1 tab Documented by: Admin: 10/24/19 09:37 Dose: 1 tab Documented by: Admin: 10/23/19 08:38 Dose: 1 tab Documented by: ANJELICA Olanzapine (Zyprexa) 5 mg PO Q12H PRN PRN Reason: Anxiety Last Admin: 10/22/19 20:53 Dose: 5 mg Documented by: MARCELINO Ondansetron HCl (Zofran) 4 mg IV Q4H PRN PRN Reason: Nausea/Vomiting Last Admin: 10/27/19 14:21 Dose: 4 mg Documented by: DOREEN Opium Tincture (Opium Tincture 5 Mg/0.5ml U/D) 10 mg PO QID [facility] Admin: 10/27/19 17:02 Dose: 10 mg Documented by: Admin: 10/27/19 10:39 Dose: 10 mg Documented by: Admin: 10/27/19 05:39 Dose: 10 mg Documented by: Admin: 10/26/19 21:39 Dose: 10 mg Documented by: Admin: 10/26/19 16:52 Dose: 10 mg Documented by: GORDON Pantoprazole Sodium (Protonix) 40 mg PO BIDAC [facility] Last Admin: 10/27/19 15:44 Dose: 40 mg Documented by: Admin: 10/27/19 08:50 Dose: 40 mg Documented by: Admin: 10/26/19 16:43 Dose: 40 mg Documented by: GORDON Psyllium Husk (Metamucil Fiber Wafer) 2 each PO TID [facility] Last Admin: 10/27/19 13:52 Dose: 2 each Documented by: Admin: 10/27/19 08:51 Dose: 2 each Documented by: DEWEY Sodium Chloride (Saline Flush) 10 ml FLUSH ASDIRECTED PRN PRN Reason: Keep Vein Open Tizanidine HCl (Zanaflex) 4 mg PO BID PRN PRN Reason: Other Last Admin: 10/27/19 15:48 Dose: 4 mg Documented by: Admin: 10/27/19 03:15 Dose: 4 mg Documented by: Admin: 10/26/19 20:46 Dose: 4 mg Documented by: Admin: 10/25/19 20:54 Dose: 4 mg Documented by: Admin: 10/24/19 07:55 Dose: 4 mg Documented by: Admin: 10/22/19 20:51 Dose: 4 mg Documented by: MARCELINO Tramadol HCl (Ultram) 100 mg PO Q6H PRN PRN Reason: Pain Last Admin: 10/27/19 13:52 Dose: 100 mg Documented by: Admin: 10/27/19 05:39 Dose: 100 mg Documented by: Admin: 10/26/19 21:39 Dose: 100 mg Documented by: Admin: 10/26/19 10:59 Dose: 100 mg Documented by: Admin: 10/25/19 22:52 Dose: 100 mg Documented by: Admin: 10/25/19 15:43 Dose: 100 mg Documented by: MARBELLA Labs: Laboratory Tests 10/22/19 10/22/19 10/22/19 Range/Units 16:30 16:30 16:30 WBC 9.4 (4.5-11.0) K/uL RBC 4.39 (3.30-5.50) M/uL Hgb 13.4 D (12.0-15.0) g/dL Hct 40.2 (36.0-48.0) % MCV 92 (80-98) fL MCH 31 (27-31) pg MCHC 33 (32-36) % Plt Count 208 (150-400) K/uL Neut % (Auto) 60 (36-66) % Lymph % (Auto) 31 (24-44) % Atkinson % (Auto) 9 H (2-6) % Eos % (Auto) 0 L (2-4) % Baso % (Auto) 0 (0-1) % Sodium 137 L (140-148) mmol/L Potassium 3.6 (3.6-5.2) mmol/L Chloride 95 L (100-108) mmol/L Carbon Dioxide 30 (21-32) mmol/L Anion Gap 15.6 H (5.0-14.0) mmol/L BUN 46 H D (7-18) mg/dL Creatinine 3.7 H* D (0.6-1.0) mg/dL Est Cr Clr Drug Dosing 15.92 mL/min Estimated GFR (MDRD) 13 L (>60) Glucose 118 H (74-106) mg/dL Calcium 8.8 (8.5-10.1) mg/dL Magnesium 1.3 L (1.8-2.4) mg/dL Total Bilirubin 0.7 (0.2-1.0) mg/dL AST 41 H (15-37) U/L ALT 67 D (12-78) U/L Alkaline Phosphatase 166 H (46-116) U/L Total Protein 9.6 H (6.4-8.2) g/dL Albumin 4.8 (3.4-5.0) g/dL Globulin 4.8 H (2.3-3.5) g/dL Albumin/Globulin Ratio 1.0 L (1.2-2.2) Urine Color (YELLOW) Urine Appearance (CLEAR) Urine pH (5.0-8.0) Ur Specific [place] (1.008-1.030) Urine Protein (NEGATIVE) mg/dL Urine Glucose (UA) (NEGATIVE) mg/dL Urine Ketones (NEGATIVE) mg/dL Urine Occult Blood (NEGATIVE) Urine Nitrite (NEGATIVE) Urine Bilirubin (NEGATIVE) Urine Urobilinogen (0.2-1.0) EU/dL Ur Leukocyte Esterase (NEGATIVE) Urine RBC (0-5) Urine WBC (0-5) Ur Epithelial Cells Amorphous Sediment Urine Bacteria Urine Mucus 10/22/19 Range/Units 16:47 WBC (4.5-11.0) K/uL RBC (3.30-5.50) M/uL Hgb (12.0-15.0) g/dL Hct (36.0-48.0) % MCV (80-98) fL MCH (27-31) pg MCHC (32-36) % Plt Count (150-400) K/uL Neut % (Auto) (36-66) % Lymph % (Auto) (24-44) % Atkinson % (Auto) (2-6) % Eos % (Auto) (2-4) % Baso % (Auto) (0-1) % Sodium (140-148) mmol/L Potassium (3.6-5.2) mmol/L Chloride (100-108) mmol/L Carbon Dioxide (21-32) mmol/L Anion Gap (5.0-14.0) mmol/L BUN (7-18) mg/dL Creatinine (0.6-1.0) mg/dL Est Cr Clr Drug Dosing mL/min Estimated GFR (MDRD) (>60) Glucose (74-106) mg/dL Calcium (8.5-10.1) mg/dL Magnesium (1.8-2.4) mg/dL Total Bilirubin (0.2-1.0) mg/dL AST (15-37) U/L ALT (12-78) U/L Alkaline Phosphatase (46-116) U/L Total Protein (6.4-8.2) g/dL Albumin (3.4-5.0) g/dL Globulin (2.3-3.5) g/dL Albumin/Globulin Ratio (1.2-2.2) Urine Color Yellow (YELLOW) Urine Appearance Cloudy A (CLEAR) Urine pH 5.5 (5.0-8.0) Ur Specific [place] >= 1.030 (1.008-1.030) Urine Protein 100 H (NEGATIVE) mg/dL Urine Glucose (UA) Negative (NEGATIVE) mg/dL Urine Ketones Negative (NEGATIVE) mg/dL Urine Occult Blood Negative (NEGATIVE) Urine Nitrite Negative (NEGATIVE) Urine Bilirubin Small H (NEGATIVE) Urine Urobilinogen 0.2 (0.2-1.0) EU/dL Ur Leukocyte Esterase Trace H (NEGATIVE) Urine RBC 0-5 (0-5) Urine WBC 10-20 H (0-5) Ur Epithelial Cells Few Amorphous Sediment Rare Urine Bacteria Moderate Urine Mucus Rare Meds: Medications Generic Name Dose Route Start Last Admin Trade Name Benignoq PRN Reason Stop Dose Admin Acetaminophen 650 mg 10/22/19 19:25 10/27/19 03:15 Tylenol PO 650 mg Q4H PRN Administration Pain (Mild 1-3)/fever Lipase/Protease/Amylase 2 cap 10/23/19 08:00 10/27/19 17:03 Gus Greer 12,000 Units PO 2 cap TIDMEALS [facility] Administration Diphenoxylate HCl/Atropine 2 tab 10/22/19 20:00 10/27/19 17:06 Lomotil 0.025-2.5 Mg PO 2 tab Q6H [facility] Administration Duloxetine HCl 60 mg 10/23/19 09:00 10/27/19 08:49 Cymbalta PO 60 mg DAILY [facility] Administration Sodium Chloride 1,000 mls @ 25 mls/hr 10/25/19 13:05 Normal Saline IV ASDIRECTED [facility] Magnesium Sulfate 2 gm/ Premix 50 mls @ 25 mls/hr 10/26/19 10:00 10/27/19 17:04 IV 25 mls/hr Q4H [facility] Administration Lactated Ringer's 1,000 mls @ 60 mls/hr 10/26/19 09:30 10/27/19 17:00 Ringers, Lactated IV 60 mls/hr ASDIRECTED [facility] Administration Albumin Human 25 gm in 100 mls @ 25 mls/hr 10/27/19 09:00 10/27/19 09:04 Albumin 25% IV 10/29/19 12:59 25 mls/hr Q24H [facility] Administration Albumin Human 25 gm in 100 mls @ 25 mls/hr 10/27/19 13:00 10/27/19 12:44 Albumin 25% IV 10/29/19 16:59 25 mls/hr Q24H [facility] Administration Imipramine HCl 200 mg 10/22/19 21:00 10/26/19 20:46 Imipramine Hcl PO 200 mg BEDTIME [facility] Administration Lactobacillus Rhamnosus 1 cap 10/22/19 21:00 10/27/19 08:50 Culturelle PO 1 cap BID [facility] Administration Liraglutide 1.2 mg 10/27/19 09:00 10/27/19 08:50 Victoza SUBCUT 1.2 mg DAILY [facility] Administration Loperamide HCl 4 mg 10/25/19 16:00 10/27/19 17:02 Imodium PO 4 mg QID [facility] Administration Lorazepam 0.5 mg 10/27/19 17:14 Ativan IVPUSH Q4H PRN Nausea Magnesium Oxide 400 mg 10/22/19 21:00 10/27/19 13:52 Magnesium Oxide PO 400 mg TID [facility] Administration Melatonin 9 mg 10/22/19 21:00 10/26/19 20:47 Melatonin PO 9 mg BEDTIME [facility] Administration Multivitamins/Iron 1 tab 10/23/19 09:00 10/27/19 08:48 Child Chew Iron PO 1 tab DAILY [facility] Administration Olanzapine 5 mg 10/22/19 19:25 10/22/19 20:53 Zyprexa PO 5 mg Q12H PRN Administration Anxiety Ondansetron HCl 4 mg 10/22/19 19:25 10/27/19 14:21 Zofran IV 4 mg Q4H PRN Administration Nausea/Vomiting Opium Tincture 10 mg 10/26/19 16:00 10/27/19 17:02 Opium Tincture 5 Mg/0.5ml U/D PO 10 mg QID [facility] Administration Pantoprazole Sodium 40 mg 10/26/19 16:30 10/27/19 15:44 Protonix PO 40 mg BIDAC [facility] Administration Psyllium Husk 2 each 10/27/19 09:00 10/27/19 13:52 Metamucil Fiber Wafer PO 2 each TID [facility] Administration Sodium Chloride 10 ml 10/22/19 19:25 Saline Flush FLUSH ASDIRECTED PRN Keep Vein Open Tizanidine HCl 4 mg 10/22/19 19:25 10/27/19 15:48 Zanaflex PO 4 mg BID PRN Administration Other Tramadol HCl 100 mg 10/25/19 13:09 10/27/19 13:52 Ultram PO 100 mg Q6H PRN Administration Pain Discontinued Medications Generic Name Dose Route Start Last Admin Trade Name Freq PRN Reason Stop Dose Admin Cephalexin 500 mg 10/24/19 21:00 10/26/19 08:49 Keflex PO 500 mg BID [facility] Administration Clonidine HCl 0.1 mg 10/26/19 21:00 10/27/19 11:41 Catapres PO Not Given BID [facility] Enoxaparin Sodium 30 mg 10/22/19 19:25 10/22/19 20:52 Lovenox SUBCUT 30 mg DAILY [facility] Administration Enoxaparin Sodium 30 mg 10/23/19 20:00 Lovenox SUBCUT Q24H [facility] Hydromorphone HCl 0.5 mg 10/22/19 18:45 10/22/19 18:51 Dilaudid IVPUSH 10/22/19 18:46 0.5 mg ONETIME ONE Administration Sodium Chloride 1,000 mls @ 999 mls/hr 10/22/19 17:00 10/22/19 17:56 Normal Saline IV 999 mls/hr ASDIRECTED [facility] Administration Magnesium Sulfate 2 gm/ Premix 50 mls @ 12.5 mls/hr 10/22/19 17:26 10/22/19 18:18 IV 10/22/19 21:25 12.5 mls/hr ONETIME ONE Administration Ceftriaxone Sodium 1 gm/ 50 mls @ 100 mls/hr 10/22/19 20:00 10/23/19 20:48 Sodium Chloride IV 100 mls/hr Q24H [facility] Administration Sodium Chloride 1,000 mls @ 250 mls/hr 10/22/19 19:25 10/22/19 20:54 Normal Saline IV 10/23/19 01:26 250 mls/hr ASDIRECTED [facility] Administration Sodium Chloride 1,000 mls @ 125 mls/hr 10/22/19 23:45 10/23/19 07:22 Normal Saline IV 125 mls/hr ASDIRECTED [facility] Administration Magnesium Sulfate 2 gm/ Premix 50 mls @ 25 mls/hr 10/23/19 00:00 10/23/19 05:34 IV 10/23/19 07:59 25 mls/hr Q6H [facility] Administration Sodium Chloride 500 mls @ 500 mls/hr 10/23/19 03:00 10/23/19 03:59 Normal Saline IV 10/23/19 03:59 500 mls/hr .BOLUS ONE Administration Sodium Chloride 1,000 mls @ 75 mls/hr 10/23/19 11:00 Normal Saline IV ASDIRECTED [facility] Albumin Human 25 gm in 100 mls @ 25 mls/hr 10/25/19 13:30 10/25/19 17:56 Albumin 25% IV 10/25/19 21:29 25 mls/hr Q4H CASSIE Administration Liraglutide 0.6 mg 10/26/19 10:00 10/26/19 10:55 Victoza SUBCUT 0.6 mg DAILY CASSIE Administration Loperamide HCl 4 mg 10/22/19 19:25 10/22/19 20:51 Imodium PO 4 mg Q4H PRN Administration Diarrhea Opium Tincture 10 mg 10/24/19 14:00 Opium Tincture PO TID CASSIE Opium Tincture 10 mg 10/24/19 14:00 10/26/19 09:03 Opium Tincture 5 Mg/0.5ml U/D PO 10 mg TID CASSIE Administration Opium Tincture 10 mg 10/26/19 12:30 10/26/19 13:58 Opium Tincture 5 Mg/0.5ml U/D PO 10/26/19 12:31 10 mg ONETIME ONE Administration Oxycodone HCl 5 mg 10/22/19 19:54 10/25/19 11:27 Oxycodone PO 5 mg Q4H PRN Administration Pain Pantoprazole Sodium 40 mg 10/22/19 17:34 10/22/19 18:18 Protonix Iv IVPUSH 10/22/19 17:35 40 mg ONETIME ONE Administration Pantoprazole Sodium 40 mg 10/26/19 10:00 10/26/19 10:55 Protonix Iv IV 10/26/19 10:01 40 mg ONETIME ONE Administration Potassium Chloride 40 meq 10/23/19 08:00 10/23/19 08:38 Klor-Con M20 PO 10/23/19 08:01 40 meq ONETIME ONE Administration Psyllium Husk 2 each 10/26/19 10:00 10/26/19 20:46 Metamucil Fiber Wafer PO 2 each BID CASSIE Administration Tramadol HCl 100 mg 10/22/19 19:25 Ultram PO Q6H PRN Pain - Re-Assessments/Exams Free Text/Narrative Re-Assessment/Exam: 10/22/19 17:33 pt has a creatnine that has risen to 3.7. Will obtain stools for culture. Her mag is low and will bolus for that. She is having burning pain in the epigastric area. will give her protonix Departure - Departure Time of Disposition: 14:45 Disposition: Admitted As Inpatient 65 Condition: Fair Clinical Impression: Dehydration, Renal insufficiency, Diarrhea, Hypomagnesemia, Gastrointestinal irritation, UTI (urinary tract infection) - Discharge Information Sepsis Event Note (ED) - Evaluation Sepsis Screening Result: No Definite Risk
[2019-10-22] MEDS ORDERED: Magnesium Sulfate/Water 2 GM in Premix Bag 1 BAG IV ONE (17:26)
[2019-10-22] MEDS ORDERED: Pantoprazole 40 MG Vial IVPUSH ONE (17:34)
--- NOTE | 2019-10-22 17:45 | PCM.HP.2 ---
H&P History of Present Illness - General Date of Service: 10/22/19 Admit Problem/Dx: Admission Diagnosis/Problem Admission Diagnosis/Problem Acute kidney injury Source of Information: Patient, Family, Old Records, Provider, RN Notes Reviewed History Limitations: Reports: No Limitations - History of Present Illness Initial Comments - Free Text/Narative: Ms. Foley is a 58-year-old woman who was admitted through the emergency department with progressive weakness, dehydration, and acute kidney injury, secondary to high output out of her ileostomy. She has recent history of several prolonged hospitalizations at this facility. She presented with intra- abdominal action associated with her previous ileostomy and underwent surgical procedure with creation of a new ileostomy. Postoperative course was complicated by intra-abdominal infection requiring exploratory laparotomy and drainage, with an open abdominal wound. She was last hospitalized at this facility at the end of August and after discharged home is done relatively well until recently. Over the past week has noted increased output from her ostomy and has become progressively more weak. Appetite is been diminished and she has experienced intermittent nausea and vomiting. Abdominal wound has been slowly closing with only a small residual open area. She denies recent fevers chills or sweats. Upper Anterior Abdominal Pain Score (Numeric/FACES): 8 - Related Data Allergies/Adverse Reactions: Allergies Allergy/AdvReac Type Severity Reaction Status Date / Time No Known Allergies Allergy Verified 10/22/19 16:15 Home Medications: Home Meds Acetaminophen [Acetaminophen Extra Strength] 1,000 mg PO Q4HR PRN 06/17/19 [History] Cyanocobalamin (Vitamin B-12) [Cyanocobalamin Injection] 1 ml IM ASDIRECTED 06/17/19 [History] Imipramine HCl 200 mg PO BEDTIME 06/17/19 [History] Nystatin [Nystatin Oint] 1 dose TOP BID PRN 06/17/19 [History] Ondansetron [Zofran ODT] 4 mg PO Q4HR PRN 06/17/19 [History] Pedi Multivit No.25/Folic Acid [Flintstones Multivit Chew Tab] 1 tab PO DAILY 06/17/19 [History] SUMAtriptan [Imitrex] 50 mg PO BTNUNITS PRN 06/17/19 [History] tiZANidine [Zanaflex] 4 mg PO BID PRN 06/17/19 [History] hydrOXYzine HCL [hydrOXYzine] 25 - 50 mg PO Q4H PRN #50 tablet 07/29/19 [Rx] Acetaminophen [Tylenol] 650 mg PO Q4H PRN tablet 09/16/19 [Rx] Amylase/Lipase/Protease [Creon DR 12,000 Units] 2 cap PO TIDMEALS #180 cap.cr 09/16/19 [Rx] DULoxetine [Cymbalta] 60 mg PO DAILY cap 09/16/19 [Rx] Lactobacillus Rhamnosus GG [Culturelle] 1 cap PO BID #60 cap 09/16/19 [Rx] Loperamide [Imodium] 4 mg PO Q4H #100 cap 09/16/19 [Rx] Melatonin 9 mg PO BEDTIME tablet 09/16/19 [Rx] OLANZapine [ZyPREXA] 5 mg PO Q12H PRN tablet 09/16/19 [Rx] traMADol [Ultram] 100 mg PO Q4H PRN tablet 09/16/19 [Rx] Atropine/Diphenoxylate [Diphenoxylate-Atropine] 2 tab PO Q6H 10/22/19 [History] Magnesium Oxide 400 mg PO TID 10/22/19 [History] Potassium Chloride 1 tab PO BID 10/22/19 [History] Past Medical History HEENT History: Reports: Impaired Vision Cardiovascular History: Reports: None Gastrointestinal History: Reports: Bowel Obstruction, Other (See Below) Other Gastrointestinal History: hernia, multiple bowel surgerys Genitourinary History: Reports: None 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: Neurological History: Reports: Migraines Psychiatric History: Reports: Anxiety Insulin Pump Model and Tank Filler: no Hematologic History: Reports: Anemia, B12 Deficiency, Blood Transfusion(s), Folic Acid, Iron Deficiency - Infectious Disease History Infectious Disease History: Reports: Chicken Pox - Past Surgical History Head Surgeries/Procedures: Reports: None HEENT Surgical History: Reports: Adenoidectomy, Tonsillectomy Cardiovascular Surgical History: Reports: Cardiac Ablation GI Surgical History: Reports: Appendectomy, Colonoscopy, EGD, Other (See Below) Other GI Surgeries/Procedures: hernia, has ileostomy. ileostomy Female Surgical History: Reports: Hysterectomy Neurological Surgical History: Reports: None Dermatological Surgical History: Reports: None Social & Family History - Family History Family Medical History: Noncontributory - Tobacco Use Smoking Status *Q: Never Smoker Second Hand Smoke Exposure: No - Caffeine Use Caffeine Use: Reports: None - Recreational Drug Use Recreational Drug Use: No H&P Review of Systems - Review of Systems: Review Of Systems: See Below General: Reports: Malaise, Weakness, Fatigue, Decreased Appetite. Denies: Fever, Chills HEENT: Reports: No Symptoms Pulmonary: Reports: No Symptoms Cardiovascular: Reports: No Symptoms Gastrointestinal: Reports: Abdominal Pain, Diarrhea, Decreased Appetite, Nausea, Vomiting. Denies: Constipation, Difficulty Swallowing, Distension, Hematemesis, Hematochezia, Melena Genitourinary: Reports: No Symptoms Musculoskeletal: Reports: No Symptoms Skin: Reports: No Symptoms Psychiatric: Reports: No Symptoms Neurological: Reports: No Symptoms Hematologic/Lymphatic: Reports: No Symptoms Immunologic: Reports: No Symptoms Exam - Exam Exam: See Below - Vital Signs Vital Signs: Last Vital Signs Temp 96.4 F L 10/22/19 16:50 Pulse 105 H 10/22/19 16:51 Resp 16 10/22/19 16:51 BP 136/88 10/22/19 16:51 Pulse Ox 98 10/22/19 16:51 Weight: 154 lb 15.759 oz - Exam Quality Assessment: DVT Prophylaxis General: Alert, Oriented, Cooperative, Mild Distress HEENT: Conjunctiva Clear, Hearing Intact. No: Mucosa Moist & [place] Neck: Supple, Trachea Midline, +2 Carotid Pulse wo Bruit Lungs: Clear to Auscultation, Normal Respiratory Effort Cardiovascular: Regular Rate, Regular Rhythm, Normal S1, Normal S2. No: S ystolic Murmur, Diastolic Murmur GI/Abdominal Exam: Soft, No Organomegaly, Tender, Other (2 cm open wound mid abdomen with apparent small sinus tract). No: Distended, Guarding, Rigid, Rebound Back Exam: Normal Inspection, Full Range of Motion Extremities: Non-Tender, No Pedal Edema Skin: Warm, Dry Neurological: Cranial Nerves Intact, Strength Equal Bilateral, Normal Speech, Normal Tone, Sensation Intact. No: Focal Deficit Neuro Extensive - Mental Status: Alert, Oriented x3, Normal Mood/Affect, Normal Cognition, Memory Intact - Patient Data Lab Results Last 24 hrs: Laboratory Results - last 24 hr 10/22/19 10/22/19 10/22/19 Range/Units 16:30 16:30 16:30 WBC 9.4 (4.5-11.0) K/uL RBC 4.39 (3.30-5.50) M/uL Hgb 13.4 D (12.0-15.0) g/dL Hct 40.2 (36.0-48.0) % MCV 92 (80-98) fL MCH 31 (27-31) pg MCHC 33 (32-36) % Plt Count 208 (150-400) K/uL Neut % (Auto) 60 (36-66) % Lymph % (Auto) 31 (24-44) % Wise % (Auto) 9 H (2-6) % Eos % (Auto) 0 L (2-4) % Baso % (Auto) 0 (0-1) % Sodium 137 L (140-148) mmol/L Potassium 3.6 (3.6-5.2) mmol/L Chloride 95 L (100-108) mmol/L Carbon Dioxide 30 (21-32) mmol/L Anion Gap 15.6 H (5.0-14.0) mmol/L BUN 46 H D (7-18) mg/dL Creatinine 3.7 H* D (0.6-1.0) mg/dL Est Cr Clr Drug Dosing 15.92 mL/min Estimated GFR (MDRD) 13 L (>60) Glucose 118 H (74-106) mg/dL Calcium 8.8 (8.5-10.1) mg/dL Magnesium 1.3 L (1.8-2.4) mg/dL Total Bilirubin 0.7 (0.2-1.0) mg/dL AST 41 H (15-37) U/L ALT 67 D (12-78) U/L Alkaline Phosphatase 166 H (46-116) U/L Total Protein 9.6 H (6.4-8.2) g/dL Albumin 4.8 (3.4-5.0) g/dL Globulin 4.8 H (2.3-3.5) g/dL Albumin/Globulin Ratio 1.0 L (1.2-2.2) Urine Color (YELLOW) Urine Appearance (CLEAR) Urine pH (5.0-8.0) Ur Specific [place] (1.008-1.030) Urine Protein (NEGATIVE) mg/dL Urine Glucose (UA) (NEGATIVE) mg/dL Urine Ketones (NEGATIVE) mg/dL Urine Occult Blood (NEGATIVE) Urine Nitrite (NEGATIVE) Urine Bilirubin (NEGATIVE) Urine Urobilinogen (0.2-1.0) EU/dL Ur Leukocyte Esterase (NEGATIVE) Urine RBC (0-5) Urine WBC (0-5) Ur Epithelial Cells Amorphous Sediment Urine Bacteria Urine Mucus 10/22/19 Range/Units 16:47 WBC (4.5-11.0) K/uL RBC (3.30-5.50) M/uL Hgb (12.0-15.0) g/dL Hct (36.0-48.0) % MCV (80-98) fL MCH (27-31) pg MCHC (32-36) % Plt Count (150-400) K/uL Neut % (Auto) (36-66) % Lymph % (Auto) (24-44) % Wise % (Auto) (2-6) % Eos % (Auto) (2-4) % Baso % (Auto) (0-1) % Sodium (140-148) mmol/L Potassium (3.6-5.2) mmol/L Chloride (100-108) mmol/L Carbon Dioxide (21-32) mmol/L Anion Gap (5.0-14.0) mmol/L BUN (7-18) mg/dL Creatinine (0.6-1.0) mg/dL Est Cr Clr Drug Dosing mL/min Estimated GFR (MDRD) (>60) Glucose (74-106) mg/dL Calcium (8.5-10.1) mg/dL Magnesium (1.8-2.4) mg/dL Total Bilirubin (0.2-1.0) mg/dL AST (15-37) U/L ALT (12-78) U/L Alkaline Phosphatase (46-116) U/L Total Protein (6.4-8.2) g/dL Albumin (3.4-5.0) g/dL Globulin (2.3-3.5) g/dL Albumin/Globulin Ratio (1.2-2.2) Urine Color Yellow (YELLOW) Urine Appearance Cloudy A (CLEAR) Urine pH 5.5 (5.0-8.0) Ur Specific [place] >= 1.030 (1.008-1.030) Urine Protein 100 H (NEGATIVE) mg/dL Urine Glucose (UA) Negative (NEGATIVE) mg/dL Urine Ketones Negative (NEGATIVE) mg/dL Urine Occult Blood Negative (NEGATIVE) Urine Nitrite Negative (NEGATIVE) Urine Bilirubin Small H (NEGATIVE) Urine Urobilinogen 0.2 (0.2-1.0) EU/dL Ur Leukocyte Esterase Trace H (NEGATIVE) Urine RBC 0-5 (0-5) Urine WBC 10-20 H (0-5) Ur Epithelial Cells Few Amorphous Sediment Rare Urine Bacteria Moderate Urine Mucus Rare Result Diagrams: 10/22/19 16:30 10/22/19 16:30 Sepsis Event Note - Evaluation Sepsis Screening Result: No Definite Risk - Focused Exam Vital Signs: Vital Signs Temp Pulse Resp BP Pulse Ox 10/22/19 16:51 105 H 16 136/88 98 10/22/19 16:50 96.4 F L 107 H 16 137/95 H 98 10/22/19 16:09 96.4 F L 107 H 16 137/95 H 98 Date Exam was Performed: 10/22/19 Time Exam was Performed: 19:12 *Q Meaningful Use (ADM) - VTE Risk Assess *Q Each Risk Factor Represents 1 Point: Age 41 - 59 years, History Inflammatory Bowel Disease Total Score 1 Point Risk Factors: 2 Each Risk Factor Represents 2 Points: None Total Score 2 Point Risk Factors: 0 Each Risk Factor Represents 3 Points: None Total Score 3 Point Risk Factors: 0 Each Risk Factor Represents 5 Points: None Total Score 5 Point Risk Factors: 0 Venous Thromboembolism Risk Factor Score *Q: 2 Problem List Initiated/Reviewed/Updated: Yes Orders Last 24hrs: Active Orders 24 hr Category Date Time Status Patient Status Manage Transfer [TRANSFER] Routine ADT 10/22/19 17:35 Ordered CLOS DIFFICILE PCR W/REFLEX [RM] Stat Lab 10/22/19 17:30 Received CULTURE STOOL + SHIGATOX [RM] Stat Lab 10/22/19 17:30 Received CULTURE URINE [RM] Stat Lab 10/22/19 17:07 Received OVA + PARASITE EXAM Stat Lab 10/22/19 17:30 Received Magnesium Sulfate/Water [Magnesium Sulfate in Water Med 10/22/19 17:26 Active Premix] 2 gm Premix Bag 1 bag IV ONETIME Sodium Chloride 0.9% [Normal Saline] 1,000 ml Med 10/22/19 17:00 Active IV ASDIRECTED Resuscitation Status Routine Resus Stat 10/22/19 17:40 Ordered Medication Orders Sodium Chloride (Normal Saline) 1,000 mls @ 999 mls/hr IV ASDIRECTED [facility] Magnesium Sulfate 2 gm/ Premix 50 mls @ 12.5 mls/hr IV ONETIME ONE Stop: 10/22/19 21:25 Assessment/Plan Comment:: ASSESSMENT AND PLAN DIARRHEA/HIGH OSTOMY OUTPUT-causing dehydration with associated acute kidney injury -Continue current therapy with Lomotil and Imodium -IV fluids for hydration -Stool studies including C. difficile pending ACUTE KIDNEY INJURY-secondary to dehydration and intravascular volume depletion -IV fluids for hydration -Closely monitor urine output and renal function DEHYDRATION-secondary to high ostomy output -IV fluids as above URINARY TRACT INFECTION-uncomplicated -Urine culture pending -Ceftriaxone 1 g IV every 24 hours OPEN ABDOMINAL WOUND -Continue current management and wound care MAINTENANCE ISSUES -DVT prophylaxis; Lovenox 30 mg subcu daily -GI prophylaxis; continue outpatient PPI therapy -Law catheter; not indicated -Nutrition; regular diet -Nicotine dependence; not required CODE STATUS-FULL CODE ADMISSION STATUS-patient will be admitted to inpatient status, expect at least a 2 night hospital stay for evaluation and management of problems as outlined above. At the time of this admission I do not reasonably expected evaluation and management of this problem will require more than a 96 hour hospital stay. DISPOSITION-anticipate discharge to home after the hospital stay. PRIMARY CARE PROVIDER-Dr. Gerber - Mortality Measure Prognosis:: Good
[2019-10-22] MEDS ORDERED: HYDROmorphone 0.5 MG/0.5 ML Syringe IVPUSH ONE (18:45)
[2019-10-22] MEDS ORDERED: Enoxaparin 30 MG/0.3 ML Syringe SUBCUT SCH (19:25)
[2019-10-22] MEDS ORDERED: traMADol 50 MG Tab PO PRN (19:25)
[2019-10-22] MEDS ORDERED: Sodium Chloride 0.9% 10 ML Syringe FLUSH PRN (19:25)
[2019-10-22] MEDS ORDERED: Loperamide 2 MG Cap PO PRN (19:25)
[2019-10-22] MEDS: tiZANidine 2 MG Tab PO PRN (20:51)
[2019-10-22] MEDS: Atropine/Diphenoxylate 0.025-2.5 MG Tab PO SCH (20:52)
[2019-10-22] MEDS: Magnesium Oxide 400 MG Tab PO SCH (20:52)
[2019-10-22] MEDS: cefTRIAXone 1 GM in Sodium Chloride 0.9% 50 ML IV SCH (20:52)
[2019-10-22] MEDS: Lactobacillus Rhamnosus GG (Probiotic) Cap PO SCH (20:52)
[2019-10-22] MEDS: OLANZapine 5 MG Tab PO PRN (20:53)
[2019-10-22] MEDS: oxyCODONE 5 MG Tab PO PRN (20:53)
[2019-10-22] MEDS: Melatonin 3 MG Tab PO SCH (20:53)
[2019-10-22] MEDS: Magnesium Sulfate/Water 2 GM in Premix Bag 1 BAG IV SCH (23:52)
[2019-10-23] MEDS: Sodium Chloride 0.9% 1,000 ML IV SCH ×2 (00:44→07:22)
[2019-10-23] MEDS: Atropine/Diphenoxylate 0.025-2.5 MG Tab PO SCH ×4 (01:56→20:48)
[2019-10-23] MEDS ORDERED: Sodium Chloride 0.9% 500 ML IV ONE (03:00)
[2019-10-23] MEDS: Magnesium Sulfate/Water 2 GM in Premix Bag 1 BAG IV SCH (05:34)
[2019-10-23] MEDS: oxyCODONE 5 MG Tab PO PRN ×3 (05:39→20:06)
[2019-10-23] MEDS ORDERED: Potassium Chloride 20 MEQ Tab.ER PO ONE (08:00)
[2019-10-23] MEDS: Lactobacillus Rhamnosus GG (Probiotic) Cap PO SCH ×2 (08:38→20:48)
[2019-10-23] MEDS: Amylase/Lipase/Protease 12,000 Unit Cap.CR PO SCH ×3 (08:38→18:19)
[2019-10-23] MEDS: DULoxetine 30 MG Cap PO SCH (08:38)
[2019-10-23] MEDS: Magnesium Oxide 400 MG Tab PO SCH ×3 (08:38→20:48)
[2019-10-23] MEDS: Multivitamins with Iron Tab.Chew PO SCH (08:38)
--- NOTE | 2019-10-23 10:57 | PCM.PN ---
- General Info Date of Service: 10/23/19 Subjective Update: No acute events overnight. No fevers. Ostomy output seems to be a little better today with a slight decrease. No significant abdominal pain. She has been up and walking around. No complaints of nausea. Urine cultures growing a gram-negative radha. Creatinine has improved significantly since yesterday but is not back to normal yet. Functional Status: Reports: Pain Controlled, Tolerating Diet - Review of Systems General: Denies: Fever Gastrointestinal: Reports: Diarrhea. Denies: Abdominal Pain - Patient Data Vitals - Most Recent: Last Vital Signs Temp 35.3 C L 10/23/19 07:16 Pulse 66 10/23/19 07:16 Resp 16 10/23/19 07:16 BP 94/42 L 10/23/19 07:16 Pulse Ox 98 10/23/19 07:16 Weight - Most Recent: 74.2 kg I&O - Last 24 Hours: Intake & Output 10/22/19 10/23/19 10/23/19 22:59 06:59 14:59 Intake Total 2482 360 Output Total 725 550 Balance 1757 -190 Lab Results Last 24 Hours: Laboratory Results - last 24 hr 10/22/19 10/22/19 10/22/19 Range/Units 16:30 16:30 16:30 WBC 9.4 (4.5-11.0) K/uL RBC 4.39 (3.30-5.50) M/uL Hgb 13.4 D (12.0-15.0) g/dL Hct 40.2 (36.0-48.0) % MCV 92 (80-98) fL MCH 31 (27-31) pg MCHC 33 (32-36) % Plt Count 208 (150-400) K/uL Neut % (Auto) 60 (36-66) % Lymph % (Auto) 31 (24-44) % [place] % (Auto) 9 H (2-6) % Eos % (Auto) 0 L (2-4) % Baso % (Auto) 0 (0-1) % Sodium 137 L (140-148) mmol/L Potassium 3.6 (3.6-5.2) mmol/L Chloride 95 L (100-108) mmol/L Carbon Dioxide 30 (21-32) mmol/L Anion Gap 15.6 H (5.0-14.0) mmol/L BUN 46 H D (7-18) mg/dL Creatinine 3.7 H* D (0.6-1.0) mg/dL Est Cr Clr Drug Dosing 15.92 mL/min Estimated GFR (MDRD) 13 L (>60) Glucose 118 H (74-106) mg/dL Calcium 8.8 (8.5-10.1) mg/dL Magnesium 1.3 L (1.8-2.4) mg/dL Total Bilirubin 0.7 (0.2-1.0) mg/dL AST 41 H (15-37) U/L ALT 67 D (12-78) U/L Alkaline Phosphatase 166 H (46-116) U/L Total Protein 9.6 H (6.4-8.2) g/dL Albumin 4.8 (3.4-5.0) g/dL Globulin 4.8 H (2.3-3.5) g/dL Albumin/Globulin Ratio 1.0 L (1.2-2.2) Urine Color (YELLOW) Urine Appearance (CLEAR) Urine pH (5.0-8.0) Ur Specific [place] (1.008-1.030) Urine Protein (NEGATIVE) mg/dL Urine Glucose (UA) (NEGATIVE) mg/dL Urine Ketones (NEGATIVE) mg/dL Urine Occult Blood (NEGATIVE) Urine Nitrite (NEGATIVE) Urine Bilirubin (NEGATIVE) Urine Urobilinogen (0.2-1.0) EU/dL Ur Leukocyte Esterase (NEGATIVE) Urine RBC (0-5) Urine WBC (0-5) Ur Epithelial Cells Amorphous Sediment Urine Bacteria Urine Mucus 10/22/19 10/23/19 10/23/19 Range/Units 16:47 04:41 04:41 WBC 3.8 L (4.5-11.0) K/uL RBC 2.97 L (3.30-5.50) M/uL Hgb 9.0 L D (12.0-15.0) g/dL Hct 28.3 L (36.0-48.0) % MCV 95 (80-98) fL MCH 30 (27-31) pg MCHC 32 (32-36) % Plt Count 109 L (150-400) K/uL Neut % (Auto) 46 (36-66) % Lymph % (Auto) 44 (24-44) % Granite % (Auto) 10 H (2-6) % Eos % (Auto) 0 L (2-4) % Baso % (Auto) 0 (0-1) % Sodium 141 (140-148) mmol/L Potassium 3.4 L (3.6-5.2) mmol/L Chloride 104 (100-108) mmol/L Carbon Dioxide 28 (21-32) mmol/L Anion Gap 12.4 (5.0-14.0) mmol/L BUN 38 H (7-18) mg/dL Creatinine 2.5 H (0.6-1.0) mg/dL Est Cr Clr Drug Dosing 23.56 mL/min Estimated GFR (MDRD) 20 L (>60) Glucose 100 (74-106) mg/dL Calcium 7.8 L (8.5-10.1) mg/dL Magnesium 2.8 H D (1.8-2.4) mg/dL Total Bilirubin 0.5 (0.2-1.0) mg/dL AST 32 (15-37) U/L ALT 47 (12-78) U/L Alkaline Phosphatase 114 (46-116) U/L Total Protein 6.3 L (6.4-8.2) g/dL Albumin 3.1 L (3.4-5.0) g/dL Globulin 3.2 (2.3-3.5) g/dL Albumin/Globulin Ratio 1.0 L (1.2-2.2) Urine Color Yellow (YELLOW) Urine Appearance Cloudy A (CLEAR) Urine pH 5.5 (5.0-8.0) Ur Specific [place] >= 1.030 (1.008-1.030) Urine Protein 100 H (NEGATIVE) mg/dL Urine Glucose (UA) Negative (NEGATIVE) mg/dL Urine Ketones Negative (NEGATIVE) mg/dL Urine Occult Blood Negative (NEGATIVE) Urine Nitrite Negative (NEGATIVE) Urine Bilirubin Small H (NEGATIVE) Urine Urobilinogen 0.2 (0.2-1.0) EU/dL Ur Leukocyte Esterase Trace H (NEGATIVE) Urine RBC 0-5 (0-5) Urine WBC 10-20 H (0-5) Ur Epithelial Cells Few Amorphous Sediment Rare Urine Bacteria Moderate Urine Mucus Rare Eliud Results Last 24 Hours: Microbiology 10/22/19 17:30 Stool Culture - Preliminary Stool / Feces NORMAL ENTERIC CLARY 1 DAY 10/22/19 17:07 Urine Culture - Preliminary Urine, Bladder 10/22/19 17:30 Clostridioides difficile (PCR) - Final Stool / Feces Med Orders - Current: Current Medications Acetaminophen (Tylenol) 650 mg PO Q4H PRN PRN Reason: Pain (Mild 1-3)/fever Lipase/Protease/Amylase (Creon Dr 12,000 Units) 2 cap PO TIDMEALS [facility] Last Admin: 10/23/19 08:38 Dose: 2 cap Documented by: Diphenoxylate HCl/Atropine (Lomotil 0.025-2.5 Mg) 2 tab PO Q6H [facility] Last Admin: 10/23/19 08:39 Dose: 2 tab Documented by: Duloxetine HCl (Cymbalta) 60 mg PO DAILY [facility] Last Admin: 10/23/19 08:38 Dose: 60 mg Documented by: Ceftriaxone Sodium 1 gm/ (Sodium Chloride) 50 mls @ 100 mls/hr IV Q24H [facility] Last Admin: 10/22/19 20:52 Dose: 100 mls/hr Documented by: Imipramine HCl (Imipramine Hcl) 200 mg PO BEDTIME [facility] Last Admin: 10/22/19 21:04 Dose: 200 mg Documented by: Lactobacillus Rhamnosus (Culturelle) 1 cap PO BID [facility] Last Admin: 10/23/19 08:38 Dose: 1 cap Documented by: Loperamide HCl (Imodium) 4 mg PO Q4H PRN PRN Reason: Diarrhea Last Admin: 10/22/19 20:51 Dose: 4 mg Documented by: Magnesium Oxide (Magnesium Oxide) 400 mg PO TID [facility] Last Admin: 10/23/19 08:38 Dose: 400 mg Documented by: Melatonin (Melatonin) 9 mg PO BEDTIME [facility] Last Admin: 10/22/19 20:53 Dose: 9 mg Documented by: Multivitamins/Iron (Child Chew Iron) 1 tab PO DAILY [facility] Last Admin: 10/23/19 08:38 Dose: 1 tab Documented by: Olanzapine (Zyprexa) 5 mg PO Q12H PRN PRN Reason: Anxiety Last Admin: 10/22/19 20:53 Dose: 5 mg Documented by: Ondansetron HCl (Zofran) 4 mg IV Q4H PRN PRN Reason: Nausea/Vomiting Oxycodone HCl (Oxycodone) 5 mg PO Q4H PRN PRN Reason: Pain Last Admin: 10/23/19 05:39 Dose: 5 mg Documented by: Sodium Chloride (Saline Flush) 10 ml FLUSH ASDIRECTED PRN PRN Reason: Keep Vein Open Tizanidine HCl (Zanaflex) 4 mg PO BID PRN PRN Reason: Other Last Admin: 10/22/19 20:51 Dose: 4 mg Documented by: Discontinued Medications Enoxaparin Sodium (Lovenox) 30 mg SUBCUT DAILY [facility] Last Admin: 10/22/19 20:52 Dose: 30 mg Documented by: Enoxaparin Sodium (Lovenox) 30 mg SUBCUT Q24H [facility] Hydromorphone HCl (Dilaudid) 0.5 mg IVPUSH ONETIME ONE Stop: 10/22/19 18:46 Last Admin: 10/22/19 18:51 Dose: 0.5 mg Documented by: Sodium Chloride (Normal Saline) 1,000 mls @ 999 mls/hr IV ASDIRECTED [facility] Last Admin: 10/22/19 17:56 Dose: 999 mls/hr Documented by: Magnesium Sulfate 2 gm/ Premix 50 mls @ 12.5 mls/hr IV ONETIME ONE Stop: 10/22/19 21:25 Last Admin: 10/22/19 18:18 Dose: 12.5 mls/hr Documented by: Sodium Chloride (Normal Saline) 1,000 mls @ 250 mls/hr IV ASDIRECTED [facility] Stop: 10/23/19 01:26 Last Admin: 10/22/19 20:54 Dose: 250 mls/hr Documented by: Sodium Chloride (Normal Saline) 1,000 mls @ 125 mls/hr IV ASDIRECTED [facility] Last Admin: 10/23/19 07:22 Dose: 125 mls/hr Documented by: Magnesium Sulfate 2 gm/ Premix 50 mls @ 25 mls/hr IV Q6H [facility] Stop: 10/23/19 07:59 Last Admin: 10/23/19 05:34 Dose: 25 mls/hr Documented by: Sodium Chloride (Normal Saline) 500 mls @ 500 mls/hr IV .BOLUS ONE Stop: 10/23/19 03:59 Last Admin: 10/23/19 03:59 Dose: 500 mls/hr Documented by: Pantoprazole Sodium (Protonix Iv) 40 mg IVPUSH ONETIME ONE Stop: 10/22/19 17:35 Last Admin: 10/22/19 18:18 Dose: 40 mg Documented by: Potassium Chloride (Klor-Con M20) 40 meq PO ONETIME ONE Stop: 10/23/19 08:01 Last Admin: 10/23/19 08:38 Dose: 40 meq Documented by: Tramadol HCl (Ultram) 100 mg PO Q6H PRN PRN Reason: Pain - Exam Quality Assessment: No: Supplemental Oxygen General: Alert, Oriented, Cooperative, No Acute Distress Lungs: Normal Respiratory Effort Cardiovascular: Regular Rate, Regular Rhythm GI/Abdominal Exam: Soft, No Distention Extremities: No Pedal Edema Psy/Mental Status: Alert, Normal Affect Sepsis Event Note - Evaluation Sepsis Screening Result: No Definite Risk - Focused Exam Vital Signs: Vital Signs Temp Pulse Resp BP Pulse Ox 10/23/19 07:16 35.3 C L 66 16 94/42 L 98 10/23/19 05:00 70 16 104/42 L 95 10/23/19 04:02 71 16 89/44 L 95 10/23/19 03:00 71 16 83/40 L 98 10/23/19 01:57 35.2 C L 73 16 85/46 L 98 10/23/19 00:45 73 16 90/40 L 98 10/22/19 23:51 81 16 79/41 L 98 Date Exam was Performed: 10/23/19 Time Exam was Performed: 13:18 - Problem List Review Problem List Initiated/Reviewed/Updated: Yes - My Orders Last 24 Hours: My Active Orders 10/23/19 11:00 Sodium Chloride 0.9% [Normal Saline] 1,000 ml IV ASDIRECTED 10/24/19 05:00 BASIC METABOLIC PANEL,BMP [CHEM] Timed CBC W/O DIFF,HEMOGRAM [HEME] Timed (1) - Plan Plan:: ASSESSMENT AND PLAN DIARRHEA/HIGH OSTOMY OUTPUT-output still higher than usual but is less today. Better oral intake today. C. difficile was negative. -Continue current therapy with Lomotil and Imodium -Continue gentle IV fluids for hydration ACUTE KIDNEY INJURY-secondary to dehydration and intravascular volume depletion. Creatinine significantly improved but still quite a bit higher than baseline. -Continue gentle IV fluids for hydration -Closely monitor urine output and renal function DEHYDRATION-secondary to high ostomy output -IV fluids as above URINARY TRACT INFECTION-culture growing a gram-negative radha but identification is still pending. -Follow-up urine culture -Ceftriaxone 1 g IV every 24 hours OPEN ABDOMINAL WOUND-healing well, no issues. -Continue current management and wound care MAINTENANCE ISSUES -DVT prophylaxis; SCDs -GI prophylaxis; continue outpatient PPI therapy -Nutrition; regular diet DISPOSITION-anticipate discharge to home after the hospital stay. Rad Pedersen MD
[2019-10-23] MEDS ORDERED: Sodium Chloride 0.9% 1,000 ML IV SCH (11:00)
[2019-10-23] MEDS ORDERED: Enoxaparin 30 MG/0.3 ML Syringe SUBCUT SCH (20:00)
[2019-10-23] MEDS: cefTRIAXone 1 GM in Sodium Chloride 0.9% 50 ML IV SCH (20:48)
[2019-10-23] MEDS: Melatonin 3 MG Tab PO SCH (20:48)
[2019-10-24] MEDS: Atropine/Diphenoxylate 0.025-2.5 MG Tab PO SCH ×4 (03:01→20:07)
[2019-10-24] MEDS: Acetaminophen 325 MG Tab PO PRN (04:45)
[2019-10-24] MEDS: oxyCODONE 5 MG Tab PO PRN ×3 (04:45→20:18)
[2019-10-24] MEDS: tiZANidine 2 MG Tab PO PRN (07:55)
[2019-10-24] MEDS: Amylase/Lipase/Protease 12,000 Unit Cap.CR PO SCH ×3 (07:56→18:32)
[2019-10-24] MEDS: DULoxetine 30 MG Cap PO SCH (09:37)
[2019-10-24] MEDS: Lactobacillus Rhamnosus GG (Probiotic) Cap PO SCH ×2 (09:37→20:07)
[2019-10-24] MEDS: Magnesium Oxide 400 MG Tab PO SCH ×3 (09:37→20:07)
[2019-10-24] MEDS: Multivitamins with Iron Tab.Chew PO SCH (09:37)
[2019-10-24] MEDS ORDERED: OPIUM TINCTURE PO SCH (14:00)
[2019-10-24] MEDS: [UNRECOGNIZED DRUG - OTHER] PO SCH ×2 (14:59→20:08)
--- NOTE | 2019-10-24 15:08 | PCM.PN ---
- General Info Date of Service: 10/24/19 Subjective Update: There were no acute events overnight. The patient reports that overall she feels fairly well. No significant abdominal pain or nausea. She does continue to have a fairly high output from her ostomy. She has not had any fevers. She has been up and walking around. Kidney function is better. - Patient Data Vitals - Most Recent: Last Vital Signs Temp 36.3 C 10/24/19 11:00 Pulse 83 10/24/19 11:00 Resp 18 10/24/19 11:00 BP 102/48 L 10/24/19 11:00 Pulse Ox 100 10/24/19 11:00 Weight - Most Recent: 74.2 kg I&O - Last 24 Hours: Intake & Output 10/24/19 10/24/19 10/24/19 06:59 14:59 22:59 Intake Total 1902 1140 Output Total 950 350 Balance 952 790 Lab Results Last 24 Hours: Laboratory Results - last 24 hr 10/23/19 10/24/19 10/24/19 Range/Units 14:17 05:45 05:45 WBC 2.5 L (4.5-11.0) K/uL RBC 2.65 L (3.30-5.50) M/uL Hgb 8.1 L (12.0-15.0) g/dL Hct 25.9 L (36.0-48.0) % MCV 98 (80-98) fL MCH 31 (27-31) pg MCHC 31 L (32-36) % Plt Count 77 L (150-400) K/uL Sodium 143 (140-148) mmol/L Potassium 4.1 (3.6-5.2) mmol/L Chloride 109 H (100-108) mmol/L Carbon Dioxide 28 (21-32) mmol/L Anion Gap 10.1 (5.0-14.0) mmol/L BUN 23 H (7-18) mg/dL Creatinine 1.5 H (0.6-1.0) mg/dL Est Cr Clr Drug Dosing 39.27 mL/min Estimated GFR (MDRD) 36 L (>60) Glucose 108 H (74-106) mg/dL Calcium 8.0 L (8.5-10.1) mg/dL Magnesium (1.8-2.4) mg/dL SARS Virus RNA (PCR) Negative (NEGATIVE) 10/24/19 Range/Units 05:45 WBC (4.5-11.0) K/uL RBC (3.30-5.50) M/uL Hgb (12.0-15.0) g/dL Hct (36.0-48.0) % MCV (80-98) fL MCH (27-31) pg MCHC (32-36) % Plt Count (150-400) K/uL Sodium (140-148) mmol/L Potassium (3.6-5.2) mmol/L Chloride (100-108) mmol/L Carbon Dioxide (21-32) mmol/L Anion Gap (5.0-14.0) mmol/L BUN (7-18) mg/dL Creatinine (0.6-1.0) mg/dL Est Cr Clr Drug Dosing mL/min Estimated GFR (MDRD) (>60) Glucose (74-106) mg/dL Calcium (8.5-10.1) mg/dL Magnesium 1.9 D (1.8-2.4) mg/dL SARS Virus RNA (PCR) (NEGATIVE) Eliud Results Last 24 Hours: Microbiology 10/22/19 17:30 Stool Culture - Preliminary Stool / Feces NORMAL ENTERIC CLARY 2 DAYS Shiga Toxin I - Final NEGATIVE FOR SHIGA TOXIN 1 Shiga Toxin II - Final NEGATIVE FOR SHIGA TOXIN 2 REFERENCE RANGE: NEGATIVE 10/22/19 17:07 Urine Culture - Final Urine, Bladder Klebsiella Pneumonia Ss Pneumo Med Orders - Current: Current Medications Acetaminophen (Tylenol) 650 mg PO Q4H PRN PRN Reason: Pain (Mild 1-3)/fever Last Admin: 10/24/19 04:45 Dose: 650 mg Documented by: Lipase/Protease/Amylase (Gus Greer 12,000 Units) 2 cap PO TIDMEALS [facility] Last Admin: 10/24/19 13:05 Dose: 2 cap Documented by: Diphenoxylate HCl/Atropine (Lomotil 0.025-2.5 Mg) 2 tab PO Q6H [facility] Last Admin: 10/24/19 14:58 Dose: 2 tab Documented by: Duloxetine HCl (Cymbalta) 60 mg PO DAILY [facility] Last Admin: 10/24/19 09:37 Dose: 60 mg Documented by: Ceftriaxone Sodium 1 gm/ (Sodium Chloride) 50 mls @ 100 mls/hr IV Q24H [facility] Last Admin: 10/23/19 20:48 Dose: 100 mls/hr Documented by: Sodium Chloride (Normal Saline) 1,000 mls @ 75 mls/hr IV ASDIRECTED [facility] Imipramine HCl (Imipramine Hcl) 200 mg PO BEDTIME [facility] Last Admin: 10/23/19 20:48 Dose: 200 mg Documented by: Lactobacillus Rhamnosus (Culturelle) 1 cap PO BID [facility] Last Admin: 10/24/19 09:37 Dose: 1 cap Documented by: Loperamide HCl (Imodium) 4 mg PO Q4H PRN PRN Reason: Diarrhea Last Admin: 10/22/19 20:51 Dose: 4 mg Documented by: Magnesium Oxide (Magnesium Oxide) 400 mg PO TID [facility] Last Admin: 10/24/19 13:05 Dose: 400 mg Documented by: Melatonin (Melatonin) 9 mg PO BEDTIME [facility] Last Admin: 10/23/19 20:48 Dose: 9 mg Documented by: Multivitamins/Iron (Child Chew Iron) 1 tab PO DAILY [facility] Last Admin: 10/24/19 09:37 Dose: 1 tab Documented by: Olanzapine (Zyprexa) 5 mg PO Q12H PRN PRN Reason: Anxiety Last Admin: 10/22/19 20:53 Dose: 5 mg Documented by: Ondansetron HCl (Zofran) 4 mg IV Q4H PRN PRN Reason: Nausea/Vomiting Opium Tincture (Opium Tincture 5 Mg/0.5ml U/D) 10 mg PO TID [facility] Last Admin: 10/24/19 14:59 Dose: 10 mg Documented by: Oxycodone HCl (Oxycodone) 5 mg PO Q4H PRN PRN Reason: Pain Last Admin: 10/24/19 13:05 Dose: 5 mg Documented by: Sodium Chloride (Saline Flush) 10 ml FLUSH ASDIRECTED PRN PRN Reason: Keep Vein Open Tizanidine HCl (Zanaflex) 4 mg PO BID PRN PRN Reason: Other Last Admin: 10/24/19 07:55 Dose: 4 mg Documented by: Discontinued Medications Enoxaparin Sodium (Lovenox) 30 mg SUBCUT DAILY [facility] Last Admin: 10/22/19 20:52 Dose: 30 mg Documented by: Enoxaparin Sodium (Lovenox) 30 mg SUBCUT Q24H [facility] Hydromorphone HCl (Dilaudid) 0.5 mg IVPUSH ONETIME ONE Stop: 10/22/19 18:46 Last Admin: 10/22/19 18:51 Dose: 0.5 mg Documented by: Sodium Chloride (Normal Saline) 1,000 mls @ 999 mls/hr IV ASDIRECTED [facility] Last Admin: 10/22/19 17:56 Dose: 999 mls/hr Documented by: Magnesium Sulfate 2 gm/ Premix 50 mls @ 12.5 mls/hr IV ONETIME ONE Stop: 10/22/19 21:25 Last Admin: 10/22/19 18:18 Dose: 12.5 mls/hr Documented by: Sodium Chloride (Normal Saline) 1,000 mls @ 250 mls/hr IV ASDIRECTED [facility] Stop: 10/23/19 01:26 Last Admin: 10/22/19 20:54 Dose: 250 mls/hr Documented by: Sodium Chloride (Normal Saline) 1,000 mls @ 125 mls/hr IV ASDIRECTED [facility] Last Admin: 10/23/19 07:22 Dose: 125 mls/hr Documented by: Magnesium Sulfate 2 gm/ Premix 50 mls @ 25 mls/hr IV Q6H [facility] Stop: 10/23/19 07:59 Last Admin: 10/23/19 05:34 Dose: 25 mls/hr Documented by: Sodium Chloride (Normal Saline) 500 mls @ 500 mls/hr IV .BOLUS ONE Stop: 10/23/19 03:59 Last Admin: 10/23/19 03:59 Dose: 500 mls/hr Documented by: Opium Tincture (Opium Tincture) 10 mg PO TID [facility] Pantoprazole Sodium (Protonix Iv) 40 mg IVPUSH ONETIME ONE Stop: 10/22/19 17:35 Last Admin: 10/22/19 18:18 Dose: 40 mg Documented by: Potassium Chloride (Klor-Con M20) 40 meq PO ONETIME ONE Stop: 10/23/19 08:01 Last Admin: 10/23/19 08:38 Dose: 40 meq Documented by: Tramadol HCl (Ultram) 100 mg PO Q6H PRN PRN Reason: Pain - Exam Quality Assessment: No: Supplemental Oxygen General: Alert, Oriented, Cooperative, No Acute Distress Lungs: Normal Respiratory Effort Cardiovascular: Regular Rate, Regular Rhythm GI/Abdominal Exam: Soft, No Distention Extremities: No Pedal Edema Psy/Mental Status: Alert, Normal Affect Sepsis Event Note - Evaluation Sepsis Screening Result: No Definite Risk - Focused Exam Vital Signs: Vital Signs Temp Pulse Resp BP Pulse Ox 10/24/19 11:00 36.3 C 83 18 102/48 L 100 10/24/19 07:00 36.4 C 80 18 110/48 L 100 Date Exam was Performed: 10/24/19 Time Exam was Performed: 15:06 - Problem List Review Problem List Initiated/Reviewed/Updated: Yes - My Orders Last 24 Hours: My Active Orders 10/24/19 14:00 Opium Tincture [Opium Tincture 5 MG/0.5ML U/D] 10 mg PO TID 10/25/19 05:00 BASIC METABOLIC PANEL,BMP [CHEM] Timed CBC W/O DIFF,HEMOGRAM [HEME] Timed (1) - Plan Plan:: ASSESSMENT AND PLAN DIARRHEA/HIGH OSTOMY OUTPUT-ostomy output still quite high and I think she is at high risk for dehydration until her output decreases. -Continue current therapy with Lomotil and Imodium -Tincture of opium 3 times daily -Encourage oral intake ACUTE KIDNEY INJURY-secondary to dehydration and intravascular volume depletion. Creatinine back to baseline. -Closely monitor urine output and renal function DEHYDRATION-secondary to high ostomy output URINARY TRACT INFECTION-culture growing Klebsiella. -Cephalexin twice daily OPEN ABDOMINAL WOUND-healing well, no issues. -Continue current management and wound care MAINTENANCE ISSUES -DVT prophylaxis; SCDs -GI prophylaxis; continue outpatient PPI therapy -Nutrition; regular diet DISPOSITION-anticipate discharge to home after the hospital stay. Rad Pedersen MD
[2019-10-24] MEDS: Melatonin 3 MG Tab PO SCH (20:07)
[2019-10-24] MEDS: Cephalexin 250 MG Cap PO SCH (20:08)
[2019-10-25] MEDS: Atropine/Diphenoxylate 0.025-2.5 MG Tab PO SCH ×4 (01:25→19:52)
[2019-10-25] MEDS: oxyCODONE 5 MG Tab PO PRN ×3 (01:25→11:27)
[2019-10-25] MEDS: Amylase/Lipase/Protease 12,000 Unit Cap.CR PO SCH ×3 (07:43→16:37)
[2019-10-25] MEDS: Lactobacillus Rhamnosus GG (Probiotic) Cap PO SCH ×2 (09:04→20:53)
[2019-10-25] MEDS: Cephalexin 250 MG Cap PO SCH ×2 (09:04→20:53)
[2019-10-25] MEDS: Multivitamins with Iron Tab.Chew PO SCH (09:04)
[2019-10-25] MEDS: Magnesium Oxide 400 MG Tab PO SCH ×3 (09:04→20:53)
[2019-10-25] MEDS: DULoxetine 30 MG Cap PO SCH (09:04)
[2019-10-25] MEDS: [UNRECOGNIZED DRUG - OTHER] PO SCH ×3 (09:28→21:01)
[2019-10-25] MEDS ORDERED: Sodium Chloride 0.9% 1,000 ML IV SCH (13:05)
--- NOTE | 2019-10-25 13:06 | PCM.PN ---
- General Info Date of Service: 10/25/19 Subjective Update: No acute events overnight. No fevers. Still having high output from her ostomy but otherwise feels well. No significant abdominal pain other than her chronic pains. No new positive culture results. Kidney function is back to baseline. White count, hemoglobin and platelets are stable. She has been up and walking around. Functional Status: Reports: Pain Controlled - Patient Data Vitals - Most Recent: Last Vital Signs Temp 36.2 C 10/25/19 11:00 Pulse 76 10/25/19 11:00 Resp 18 10/25/19 11:00 BP 94/56 L 10/25/19 11:00 Pulse Ox 100 10/25/19 11:00 Weight - Most Recent: 74.2 kg I&O - Last 24 Hours: Intake & Output 10/24/19 10/25/19 10/25/19 22:59 06:59 14:59 Intake Total 1410 1310 Output Total 3731 750 1075 Balance -2321 -750 235 Lab Results Last 24 Hours: Laboratory Results - last 24 hr 10/24/19 10/25/19 10/25/19 Range/Units 05:45 06:19 06:19 WBC 2.2 L (4.5-11.0) K/uL RBC 2.83 L (3.30-5.50) M/uL Hgb 8.8 L (12.0-15.0) g/dL Hct 27.8 L (36.0-48.0) % MCV 98 (80-98) fL MCH 31 (27-31) pg MCHC 32 (32-36) % Plt Count 78 L (150-400) K/uL Sodium 142 (140-148) mmol/L Potassium 4.7 (3.6-5.2) mmol/L Chloride 108 (100-108) mmol/L Carbon Dioxide 27 (21-32) mmol/L Anion Gap 7.1 (5.0-14.0) mmol/L BUN 15 (7-18) mg/dL Creatinine 1.2 H (0.6-1.0) mg/dL Est Cr Clr Drug Dosing 48.96 mL/min Estimated GFR (MDRD) 46 L (>60) Glucose 87 (74-106) mg/dL Calcium 8.2 L (8.5-10.1) mg/dL Magnesium 1.9 D (1.8-2.4) mg/dL Eliud Results Last 24 Hours: Microbiology 10/22/19 17:30 Stool Culture - Final Stool / Feces NORMAL ENTERIC CLARY. NO SALMONELLA, SHIGELLA, CAMPYLOBACTER OR E.COLI O157 ISOLATED. Shiga Toxin I - Final NEGATIVE FOR SHIGA TOXIN 1 Shiga Toxin II - Final NEGATIVE FOR SHIGA TOXIN 2 REFERENCE RANGE: NEGATIVE Med Orders - Current: Current Medications Acetaminophen (Tylenol) 650 mg PO Q4H PRN PRN Reason: Pain (Mild 1-3)/fever Last Admin: 10/24/19 04:45 Dose: 650 mg Documented by: Lipase/Protease/Amylase (Gus Greer 12,000 Units) 2 cap PO TIDMEALS [facility] Last Admin: 10/25/19 12:38 Dose: 2 cap Documented by: Cephalexin (Keflex) 500 mg PO BID [facility] Last Admin: 10/25/19 09:04 Dose: 500 mg Documented by: Diphenoxylate HCl/Atropine (Lomotil 0.025-2.5 Mg) 2 tab PO Q6H [facility] Last Admin: 10/25/19 09:28 Dose: 2 tab Documented by: Duloxetine HCl (Cymbalta) 60 mg PO DAILY [facility] Last Admin: 10/25/19 09:04 Dose: 60 mg Documented by: Imipramine HCl (Imipramine Hcl) 200 mg PO BEDTIME [facility] Last Admin: 10/24/19 20:07 Dose: 200 mg Documented by: Lactobacillus Rhamnosus (Culturelle) 1 cap PO BID [facility] Last Admin: 10/25/19 09:04 Dose: 1 cap Documented by: Magnesium Oxide (Magnesium Oxide) 400 mg PO TID [facility] Last Admin: 10/25/19 09:04 Dose: 400 mg Documented by: Melatonin (Melatonin) 9 mg PO BEDTIME [facility] Last Admin: 10/24/19 20:07 Dose: 9 mg Documented by: Multivitamins/Iron (Child Chew Iron) 1 tab PO DAILY [facility] Last Admin: 10/25/19 09:04 Dose: 1 tab Documented by: Olanzapine (Zyprexa) 5 mg PO Q12H PRN PRN Reason: Anxiety Last Admin: 10/22/19 20:53 Dose: 5 mg Documented by: Ondansetron HCl (Zofran) 4 mg IV Q4H PRN PRN Reason: Nausea/Vomiting Opium Tincture (Opium Tincture 5 Mg/0.5ml U/D) 10 mg PO TID [facility] Last Admin: 10/25/19 09:28 Dose: 10 mg Documented by: Oxycodone HCl (Oxycodone) 5 mg PO Q4H PRN PRN Reason: Pain Last Admin: 10/25/19 11:27 Dose: 5 mg Documented by: Sodium Chloride (Saline Flush) 10 ml FLUSH ASDIRECTED PRN PRN Reason: Keep Vein Open Tizanidine HCl (Zanaflex) 4 mg PO BID PRN PRN Reason: Other Last Admin: 10/24/19 07:55 Dose: 4 mg Documented by: Discontinued Medications Enoxaparin Sodium (Lovenox) 30 mg SUBCUT DAILY [facility] Last Admin: 10/22/19 20:52 Dose: 30 mg Documented by: Enoxaparin Sodium (Lovenox) 30 mg SUBCUT Q24H [facility] Hydromorphone HCl (Dilaudid) 0.5 mg IVPUSH ONETIME ONE Stop: 10/22/19 18:46 Last Admin: 10/22/19 18:51 Dose: 0.5 mg Documented by: Sodium Chloride (Normal Saline) 1,000 mls @ 999 mls/hr IV ASDIRECTED [facility] Last Admin: 10/22/19 17:56 Dose: 999 mls/hr Documented by: Magnesium Sulfate 2 gm/ Premix 50 mls @ 12.5 mls/hr IV ONETIME ONE Stop: 10/22/19 21:25 Last Admin: 10/22/19 18:18 Dose: 12.5 mls/hr Documented by: Ceftriaxone Sodium 1 gm/ (Sodium Chloride) 50 mls @ 100 mls/hr IV Q24H [facility] Last Admin: 10/23/19 20:48 Dose: 100 mls/hr Documented by: Sodium Chloride (Normal Saline) 1,000 mls @ 250 mls/hr IV ASDIRECTED [facility] Stop: 10/23/19 01:26 Last Admin: 10/22/19 20:54 Dose: 250 mls/hr Documented by: Sodium Chloride (Normal Saline) 1,000 mls @ 125 mls/hr IV ASDIRECTED [facility] Last Admin: 10/23/19 07:22 Dose: 125 mls/hr Documented by: Magnesium Sulfate 2 gm/ Premix 50 mls @ 25 mls/hr IV Q6H [facility] Stop: 10/23/19 07:59 Last Admin: 10/23/19 05:34 Dose: 25 mls/hr Documented by: Sodium Chloride (Normal Saline) 500 mls @ 500 mls/hr IV .BOLUS ONE Stop: 10/23/19 03:59 Last Admin: 10/23/19 03:59 Dose: 500 mls/hr Documented by: Sodium Chloride (Normal Saline) 1,000 mls @ 75 mls/hr IV ASDIRECTED [facility] Loperamide HCl (Imodium) 4 mg PO Q4H PRN PRN Reason: Diarrhea Last Admin: 10/22/19 20:51 Dose: 4 mg Documented by: Opium Tincture (Opium Tincture) 10 mg PO TID [facility] Pantoprazole Sodium (Protonix Iv) 40 mg IVPUSH ONETIME ONE Stop: 10/22/19 17:35 Last Admin: 10/22/19 18:18 Dose: 40 mg Documented by: Potassium Chloride (Klor-Con M20) 40 meq PO ONETIME ONE Stop: 10/23/19 08:01 Last Admin: 10/23/19 08:38 Dose: 40 meq Documented by: Tramadol HCl (Ultram) 100 mg PO Q6H PRN PRN Reason: Pain - Exam Quality Assessment: No: Supplemental Oxygen General: Alert, Oriented, Cooperative, No Acute Distress Lungs: Normal Respiratory Effort Cardiovascular: Regular Rate, Regular Rhythm GI/Abdominal Exam: Soft, No Distention Extremities: No Pedal Edema Psy/Mental Status: Alert, Normal Affect Sepsis Event Note - Evaluation Sepsis Screening Result: No Definite Risk - Focused Exam Vital Signs: Vital Signs Temp Pulse Resp BP Pulse Ox 10/25/19 11:00 36.2 C 76 18 94/56 L 100 10/25/19 07:45 35.9 C L 85 16 94/66 97 10/25/19 03:00 36.2 C 75 16 94/44 L 100 Date Exam was Performed: 10/25/19 Time Exam was Performed: 15:57 - Problem List Review Problem List Initiated/Reviewed/Updated: Yes - My Orders Last 24 Hours: My Active Orders 10/24/19 14:00 Opium Tincture [Opium Tincture 5 MG/0.5ML U/D] 10 mg PO TID 10/24/19 21:00 cephALEXin [Keflex] 500 mg PO BID 10/25/19 13:03 Albumin 25 GM/100 ML IVPB @ 25 MLS/HR Albumin Human [Albumin 25%] 25 gm in 100 ml IV ONETIME 10/25/19 13:05 Sodium Chloride 0.9% [Normal Saline] 1,000 ml IV ASDIRECTED 10/25/19 13:06 Albumin 25 GM/100 ML IVPB @ 25 MLS/HR Albumin Human [Albumin 25%] 25 gm in 100 ml IV ONETIME 10/25/19 16:00 Loperamide [Imodium] 4 mg PO QID 10/26/19 05:00 CBC W/O DIFF,HEMOGRAM [HEME] Timed (1) COMPREHENSIVE METABOLIC PN,CMP [CHEM] Timed MAGNESIUM [CHEM] Timed - Plan Plan:: ASSESSMENT AND PLAN DIARRHEA/HIGH OSTOMY OUTPUT-still having high output from her ostomy despite increased medications yesterday. With only 1 kidney she is at high risk for dehydration and kidney injury given the ongoing high output of more than 4 L per 24 hours. -Albumin infusion with the hope of improving gut absorption -Scheduled Lomotil -Schedule Imodium 4 times daily -Tincture of opium 3 times daily -High-fiber diet -Encourage oral intake -Surgical consultation with Dr. Reno for any additional recommendations in the morning ACUTE KIDNEY INJURY-secondary to dehydration and intravascular volume depletion. Creatinine back to baseline. -Closely monitor urine output and renal function DEHYDRATION-secondary to high ostomy output. Resolved. URINARY TRACT INFECTION-culture growing Klebsiella. -Cephalexin twice daily OPEN ABDOMINAL WOUND-healing well, no issues. -Continue current management and wound care MAINTENANCE ISSUES -DVT prophylaxis; SCDs -GI prophylaxis; continue outpatient PPI therapy -Nutrition; regular diet DISPOSITION-anticipate discharge to home after the hospital stay. Rad Pedersen MD
[2019-10-25] MEDS: traMADol 50 MG Tab PO PRN ×2 (15:43→22:52)
[2019-10-25] MEDS: Loperamide 2 MG Cap PO SCH ×2 (16:36→21:01)
[2019-10-25] MEDS: Melatonin 3 MG Tab PO SCH (20:53)
[2019-10-25] MEDS: tiZANidine 2 MG Tab PO PRN (20:54)
[2019-10-26] MEDS: Atropine/Diphenoxylate 0.025-2.5 MG Tab PO SCH ×4 (02:35→20:47)
[2019-10-26] MEDS: Loperamide 2 MG Cap PO SCH ×4 (06:00→21:39)
[2019-10-26] MEDS: Amylase/Lipase/Protease 12,000 Unit Cap.CR PO SCH ×3 (08:48→16:43)
[2019-10-26] MEDS: Lactobacillus Rhamnosus GG (Probiotic) Cap PO SCH ×2 (08:49→20:47)
[2019-10-26] MEDS: Multivitamins with Iron Tab.Chew PO SCH (08:49)
[2019-10-26] MEDS: DULoxetine 30 MG Cap PO SCH (08:49)
[2019-10-26] MEDS: Cephalexin 250 MG Cap PO SCH (08:49)
[2019-10-26] MEDS: Magnesium Oxide 400 MG Tab PO SCH ×3 (08:49→20:47)
[2019-10-26] MEDS: [UNRECOGNIZED DRUG - OTHER] PO SCH ×3 (09:03→21:39)
[2019-10-26] MEDS ORDERED: Pantoprazole 40 MG Vial IV ONE (10:00)
[2019-10-26] MEDS ORDERED: Liraglutide (rDNA Origin) 0.6 MG/0.1 ML 3 ML Pen SUBCUT SCH (10:00)
--- NOTE | 2019-10-26 10:15 | CONS ---
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 The problem she has been facing is intermittently getting behind in terms of the high output from the ileostomy resulting in dehydration and insults to renal function requiring some multiple hospitalizations. The patient in the past has been on variety of agents including Gatorade with added sodium. At some point, we also tried some Victoza. I am not sure if that was covered as an outpatient, however, looking at the med list today, some additional adjuncts to help slow down the ostomy output will be added and this will include metamucil wafers 2 b.i.d. We will instruct her to get started on Gatorade 2 to 3 L a day with pharmacy to add or provide instructions to add 100 mEq/L concentration of sodium chloride in the Gatorade. Also add Protonix with initial IV dose followed by a b.i.d. oral dose of codeine sulfate 20 mg p.o. q.i.d. That dose could be increased as needed. Clonidine 0.1 mg p.o. b.i.d. We will need to watch for any problems with low blood pressure with that, and then we will have Victoza starting at 0.6 mg subcutaneous dose daily and to check to see if that is covered. Otherwise, her magnesium is quite low today at 1.1 and for the duration of the hospitalization, we will give her 2 g of magnesium sulfate q.4 hours IV. We will follow the case and try to make some adjustments to medical management as tolerated. Shamar Reno MD /[id number]
--- NOTE | 2019-10-26 10:36 | PCM.PN ---
- General Info Date of Service: 10/26/19 Subjective Update: No acute events overnight. No fevers. No abdominal pain. Still having a fairly high output from her ostomy. Labs are stable. No nausea. She has been up and walking around and in general feels well. Functional Status: Reports: Pain Controlled, Tolerating Diet - Review of Systems General: Denies: Fever - Patient Data Vitals - Most Recent: Last Vital Signs Temp 36.3 C 10/26/19 10:00 Pulse 95 10/26/19 10:00 Resp 18 10/26/19 10:00 BP 104/46 L 10/26/19 10:00 Pulse Ox 98 10/26/19 10:00 Weight - Most Recent: 74.2 kg I&O - Last 24 Hours: Intake & Output 10/25/19 10/26/19 10/26/19 22:59 06:59 14:59 Intake Total 200 755 480 Output Total 1450 1775 300 Balance -1250 -1020 180 Lab Results Last 24 Hours: Laboratory Results - last 24 hr 10/26/19 10/26/19 Range/Units 04:15 04:15 WBC 2.3 L (4.5-11.0) K/uL RBC 2.58 L (3.30-5.50) M/uL Hgb 7.9 L (12.0-15.0) g/dL Hct 25.4 L (36.0-48.0) % MCV 98 (80-98) fL MCH 31 (27-31) pg MCHC 31 L (32-36) % Plt Count 83 L (150-400) K/uL Sodium 143 (140-148) mmol/L Potassium 4.5 (3.6-5.2) mmol/L Chloride 109 H (100-108) mmol/L Carbon Dioxide 25 (21-32) mmol/L Anion Gap 13.5 (5.0-14.0) mmol/L BUN 13 (7-18) mg/dL Creatinine 1.2 H (0.6-1.0) mg/dL Est Cr Clr Drug Dosing 48.96 mL/min Estimated GFR (MDRD) 46 L (>60) Glucose 92 (74-106) mg/dL Calcium 8.1 L (8.5-10.1) mg/dL Magnesium 1.1 L D (1.8-2.4) mg/dL Total Bilirubin 0.3 (0.2-1.0) mg/dL AST 19 (15-37) U/L ALT 30 (12-78) U/L Alkaline Phosphatase 82 (46-116) U/L Total Protein 6.3 L (6.4-8.2) g/dL Albumin 3.4 (3.4-5.0) g/dL Globulin 2.9 (2.3-3.5) g/dL Albumin/Globulin Ratio 1.2 (1.2-2.2) Eliud Results Last 24 Hours: Microbiology 10/22/19 17:30 Stool Culture - Final Stool / Feces NORMAL ENTERIC CLARY. NO SALMONELLA, SHIGELLA, CAMPYLOBACTER OR E.COLI O157 ISOLATED. Shiga Toxin I - Final NEGATIVE FOR SHIGA TOXIN 1 Shiga Toxin II - Final NEGATIVE FOR SHIGA TOXIN 2 REFERENCE RANGE: NEGATIVE Med Orders - Current: Current Medications Acetaminophen (Tylenol) 650 mg PO Q4H PRN PRN Reason: Pain (Mild 1-3)/fever Last Admin: 10/24/19 04:45 Dose: 650 mg Documented by: Lipase/Protease/Amylase (Creon Dr 12,000 Units) 2 cap PO TIDMEALS [facility] Last Admin: 10/26/19 08:48 Dose: 2 cap Documented by: Cephalexin (Keflex) 500 mg PO BID [facility] Last Admin: 10/26/19 08:49 Dose: 500 mg Documented by: Clonidine HCl (Catapres) 0.1 mg PO BID [facility] Diphenoxylate HCl/Atropine (Lomotil 0.025-2.5 Mg) 2 tab PO Q6H [facility] Last Admin: 10/26/19 09:03 Dose: 2 tab Documented by: Duloxetine HCl (Cymbalta) 60 mg PO DAILY [facility] Last Admin: 10/26/19 08:49 Dose: 60 mg Documented by: Sodium Chloride (Normal Saline) 1,000 mls @ 25 mls/hr IV ASDIRECTED [facility] Magnesium Sulfate 2 gm/ Premix 50 mls @ 25 mls/hr IV Q4H [facility] Lactated Ringer's (Ringers, Lactated) 1,000 mls @ 60 mls/hr IV ASDIRECTED [facility] Imipramine HCl (Imipramine Hcl) 200 mg PO BEDTIME [facility] Last Admin: 10/25/19 20:54 Dose: 200 mg Documented by: Lactobacillus Rhamnosus (Culturelle) 1 cap PO BID [facility] Last Admin: 10/26/19 08:49 Dose: 1 cap Documented by: Liraglutide (Victoza) 0.6 mg SUBCUT DAILY [facility] Loperamide HCl (Imodium) 4 mg PO QID [facility] Last Admin: 10/26/19 09:03 Dose: 4 mg Documented by: Magnesium Oxide (Magnesium Oxide) 400 mg PO TID [facility] Last Admin: 10/26/19 08:49 Dose: 400 mg Documented by: Melatonin (Melatonin) 9 mg PO BEDTIME [facility] Last Admin: 10/25/19 20:53 Dose: 9 mg Documented by: Multivitamins/Iron (Child Chew Iron) 1 tab PO DAILY [facility] Last Admin: 10/26/19 08:49 Dose: 1 tab Documented by: Olanzapine (Zyprexa) 5 mg PO Q12H PRN PRN Reason: Anxiety Last Admin: 10/22/19 20:53 Dose: 5 mg Documented by: Ondansetron HCl (Zofran) 4 mg IV Q4H PRN PRN Reason: Nausea/Vomiting Opium Tincture (Opium Tincture 5 Mg/0.5ml U/D) 10 mg PO QID [facility] Opium Tincture (Opium Tincture 5 Mg/0.5ml U/D) 10 mg PO ONETIME ONE Stop: 10/26/19 12:31 Pantoprazole Sodium (Protonix) 40 mg PO BIDAC [facility] Psyllium Husk (Metamucil Fiber Wafer) 2 each PO BID [facility] Sodium Chloride (Saline Flush) 10 ml FLUSH ASDIRECTED PRN PRN Reason: Keep Vein Open Tizanidine HCl (Zanaflex) 4 mg PO BID PRN PRN Reason: Other Last Admin: 10/25/19 20:54 Dose: 4 mg Documented by: Tramadol HCl (Ultram) 100 mg PO Q6H PRN PRN Reason: Pain Last Admin: 10/25/19 22:52 Dose: 100 mg Documented by: Discontinued Medications Enoxaparin Sodium (Lovenox) 30 mg SUBCUT DAILY [facility] Last Admin: 10/22/19 20:52 Dose: 30 mg Documented by: Enoxaparin Sodium (Lovenox) 30 mg SUBCUT Q24H [facility] Hydromorphone HCl (Dilaudid) 0.5 mg IVPUSH ONETIME ONE Stop: 10/22/19 18:46 Last Admin: 10/22/19 18:51 Dose: 0.5 mg Documented by: Sodium Chloride (Normal Saline) 1,000 mls @ 999 mls/hr IV ASDIRECTED [facility] Last Admin: 10/22/19 17:56 Dose: 999 mls/hr Documented by: Magnesium Sulfate 2 gm/ Premix 50 mls @ 12.5 mls/hr IV ONETIME ONE Stop: 10/22/19 21:25 Last Admin: 10/22/19 18:18 Dose: 12.5 mls/hr Documented by: Ceftriaxone Sodium 1 gm/ (Sodium Chloride) 50 mls @ 100 mls/hr IV Q24H [facility] Last Admin: 10/23/19 20:48 Dose: 100 mls/hr Documented by: Sodium Chloride (Normal Saline) 1,000 mls @ 250 mls/hr IV ASDIRECTED [facility] Stop: 10/23/19 01:26 Last Admin: 10/22/19 20:54 Dose: 250 mls/hr Documented by: Sodium Chloride (Normal Saline) 1,000 mls @ 125 mls/hr IV ASDIRECTED [facility] Last Admin: 10/23/19 07:22 Dose: 125 mls/hr Documented by: Magnesium Sulfate 2 gm/ Premix 50 mls @ 25 mls/hr IV Q6H [facility] Stop: 10/23/19 07:59 Last Admin: 10/23/19 05:34 Dose: 25 mls/hr Documented by: Sodium Chloride (Normal Saline) 500 mls @ 500 mls/hr IV .BOLUS ONE Stop: 10/23/19 03:59 Last Admin: 10/23/19 03:59 Dose: 500 mls/hr Documented by: Sodium Chloride (Normal Saline) 1,000 mls @ 75 mls/hr IV ASDIRECTED [facility] Albumin Human (Albumin 25%) 25 gm in 100 mls @ 25 mls/hr IV Q4H [facility] Stop: 10/25/19 21:29 Last Admin: 10/25/19 17:56 Dose: 25 mls/hr Documented by: Loperamide HCl (Imodium) 4 mg PO Q4H PRN PRN Reason: Diarrhea Last Admin: 10/22/19 20:51 Dose: 4 mg Documented by: Opium Tincture (Opium Tincture) 10 mg PO TID [facility] Opium Tincture (Opium Tincture 5 Mg/0.5ml U/D) 10 mg PO TID [facility] Last Admin: 10/26/19 09:03 Dose: 10 mg Documented by: Oxycodone HCl (Oxycodone) 5 mg PO Q4H PRN PRN Reason: Pain Last Admin: 10/25/19 11:27 Dose: 5 mg Documented by: Pantoprazole Sodium (Protonix Iv) 40 mg IVPUSH ONETIME ONE Stop: 10/22/19 17:35 Last Admin: 10/22/19 18:18 Dose: 40 mg Documented by: Pantoprazole Sodium (Protonix Iv) 40 mg IV ONETIME ONE Stop: 10/26/19 10:01 Potassium Chloride (Klor-Con M20) 40 meq PO ONETIME ONE Stop: 10/23/19 08:01 Last Admin: 10/23/19 08:38 Dose: 40 meq Documented by: Tramadol HCl (Ultram) 100 mg PO Q6H PRN PRN Reason: Pain - Exam Quality Assessment: No: Supplemental Oxygen General: Alert, Oriented, Cooperative, No Acute Distress Lungs: Normal Respiratory Effort GI/Abdominal Exam: Soft, No Distention Extremities: No Pedal Edema Psy/Mental Status: Alert, Normal Affect Sepsis Event Note - Evaluation Sepsis Screening Result: No Definite Risk - Focused Exam Vital Signs: Vital Signs Temp Pulse Resp BP Pulse Ox 10/26/19 10:00 36.3 C 95 18 104/46 L 98 10/26/19 07:00 36.0 C L 78 18 113/53 L 100 10/26/19 02:39 35.7 C L 69 16 102/47 L 100 10/25/19 23:18 116/52 L 10/25/19 22:53 35.8 C L 79 14 84/40 L 98 Date Exam was Performed: 10/26/19 Time Exam was Performed: 11:58 - Problem List Review Problem List Initiated/Reviewed/Updated: Yes - My Orders Last 24 Hours: My Active Orders 10/25/19 13:05 Sodium Chloride 0.9% [Normal Saline] 1,000 ml IV ASDIRECTED 10/25/19 13:09 traMADol [Ultram] 100 mg PO Q6H PRN 10/25/19 13:37 Consult to Physician [CONS] Routine 10/25/19 13:38 Notify Provider Consults [RC] ASDIRECTED 10/25/19 16:00 Loperamide [Imodium] 4 mg PO QID 10/26/19 12:30 Opium Tincture [Opium Tincture 5 MG/0.5ML U/D] 10 mg PO ONETIME ONE - Plan Plan:: ASSESSMENT AND PLAN DIARRHEA/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 Still having high output from her ostomy. Surgical consultation today recommended a variety of medication changes. -Additional management as recommended by surgery -Scheduled Lomotil -Schedule Imodium 4 times daily -Tincture of opium 3 times daily -High-fiber diet -Encourage oral intake ACUTE KIDNEY INJURY-resolved. At high risk for recurrence without aggressive interventions discussed above. -Closely monitor urine output and renal function URINARY TRACT INFECTION-culture growing Klebsiella and she has completed adequate treatment. -Stop antibiotics OPEN ABDOMINAL WOUND-healing well, no issues. -Continue current management and wound care MAINTENANCE ISSUES -DVT prophylaxis; SCDs -GI prophylaxis; continue outpatient PPI therapy -Nutrition; regular diet DISPOSITION-anticipate discharge to home after the hospital stay. Rad Pedersen MD
[2019-10-26] MEDS: Psyllium Seed (With Sugar) Wafer PO SCH ×2 (10:54→20:46)
[2019-10-26] MEDS: Magnesium Sulfate/Water 2 GM in Premix Bag 1 BAG IV SCH ×4 (10:54→21:38)
[2019-10-26] MEDS: traMADol 50 MG Tab PO PRN ×2 (10:59→21:39)
[2019-10-26] MEDS: Lactated Ringers 1,000 ML IV SCH (11:00)
[2019-10-26] MEDS ORDERED: [UNRECOGNIZED DRUG - OTHER] PO ONE (12:30)
[2019-10-26] MEDS: Pantoprazole 40 MG Tab.CR PO SCH (16:43)
[2019-10-26] MEDS: tiZANidine 2 MG Tab PO PRN (20:46)
[2019-10-26] MEDS: cloNIDine 0.1 MG Tab PO SCH (20:46)
[2019-10-26] MEDS: Melatonin 3 MG Tab PO SCH (20:47)
[2019-10-27] MEDS: Atropine/Diphenoxylate 0.025-2.5 MG Tab PO SCH ×4 (01:56→20:14)
[2019-10-27] MEDS: Magnesium Sulfate/Water 2 GM in Premix Bag 1 BAG IV SCH ×6 (01:58→21:58)
[2019-10-27] MEDS: tiZANidine 2 MG Tab PO PRN ×2 (03:15→15:48)
[2019-10-27] MEDS: Acetaminophen 325 MG Tab PO PRN (03:15)
[2019-10-27] MEDS: [UNRECOGNIZED DRUG - OTHER] PO SCH ×4 (05:39→21:58)
[2019-10-27] MEDS: traMADol 50 MG Tab PO PRN ×3 (05:39→20:20)
[2019-10-27] MEDS: Loperamide 2 MG Cap PO SCH ×4 (05:39→21:58)
[2019-10-27] MEDS: Lactated Ringers 1,000 ML IV SCH ×2 (05:45→17:00)
[2019-10-27] MEDS: Multivitamins with Iron Tab.Chew PO SCH (08:48)
[2019-10-27] MEDS: Magnesium Oxide 400 MG Tab PO SCH ×3 (08:49→20:08)
[2019-10-27] MEDS: DULoxetine 30 MG Cap PO SCH (08:49)
[2019-10-27] MEDS: Lactobacillus Rhamnosus GG (Probiotic) Cap PO SCH ×2 (08:50→20:08)
[2019-10-27] MEDS: Pantoprazole 40 MG Tab.CR PO SCH ×2 (08:50→15:44)
[2019-10-27] MEDS: Amylase/Lipase/Protease 12,000 Unit Cap.CR PO SCH ×3 (08:50→17:03)
[2019-10-27] MEDS: Psyllium Seed (With Sugar) Wafer PO SCH ×3 (08:51→20:09)
[2019-10-27] MEDS ORDERED: Liraglutide (rDNA Origin) 0.6 MG/0.1 ML 3 ML Pen SUBCUT SCH (09:00)
--- NOTE | 2019-10-27 10:44 | PCM.PN ---
- General Info Date of Service: 10/27/19 Subjective Update: No acute events overnight. No fevers. Patient feels well. No significant abdominal pain. Continues to have high output from her ostomy despite multiple interventions initiated yesterday. Quantity of output is very similar over the past 24 hours. Kidney function stable. Pancytopenia stable. She has been up and walking around. Tolerating diet well. Functional Status: Reports: Pain Controlled, Tolerating Diet - Patient Data Vitals - Most Recent: Last Vital Signs Temp 35.6 C L 10/27/19 07:00 Pulse 66 10/27/19 07:00 Resp 18 10/27/19 07:00 BP 98/53 L 10/27/19 07:00 Pulse Ox 100 10/27/19 07:00 Weight - Most Recent: 74.2 kg I&O - Last 24 Hours: Intake & Output 10/26/19 10/27/19 10/27/19 22:59 06:59 14:59 Intake Total 1666 600 Output Total 1925 1600 Balance -259 -1000 Lab Results Last 24 Hours: Laboratory Results - last 24 hr 10/27/19 10/27/19 10/27/19 Range/Units 04:10 04:10 08:00 WBC 2.4 L (4.5-11.0) K/uL RBC 2.50 L (3.30-5.50) M/uL Hgb 7.8 L (12.0-15.0) g/dL Hct 24.6 L (36.0-48.0) % MCV 98 (80-98) fL MCH 31 (27-31) pg MCHC 32 (32-36) % Plt Count 93 L (150-400) K/uL Sodium 143 (140-148) mmol/L Potassium 4.6 (3.6-5.2) mmol/L Chloride 109 H (100-108) mmol/L Carbon Dioxide 24 (21-32) mmol/L Anion Gap 14.6 H (5.0-14.0) mmol/L BUN 13 (7-18) mg/dL Creatinine 1.2 H (0.6-1.0) mg/dL Est Cr Clr Drug Dosing 48.96 mL/min Estimated GFR (MDRD) 46 L (>60) Glucose 114 H (74-106) mg/dL Calcium 7.9 L (8.5-10.1) mg/dL Phosphorus 3.1 (2.5-4.9) mg/dL Total Bilirubin 0.4 (0.2-1.0) mg/dL AST 17 (15-37) U/L ALT 26 (12-78) U/L Alkaline Phosphatase 84 (46-116) U/L Total Protein 5.8 L (6.4-8.2) g/dL Albumin 3.2 L (3.4-5.0) g/dL Globulin 2.6 (2.3-3.5) g/dL Albumin/Globulin Ratio 1.2 (1.2-2.2) Blood Type A POSITIVE Gel Antibody Screen Positive A* Crossmatch See Detail Med Orders - Current: Current Medications Acetaminophen (Tylenol) 650 mg PO Q4H PRN PRN Reason: Pain (Mild 1-3)/fever Last Admin: 10/27/19 03:15 Dose: 650 mg Documented by: Lipase/Protease/Amylase (Creon Dr 12,000 Units) 2 cap PO TIDMEALS [facility] Last Admin: 10/27/19 08:50 Dose: 2 cap Documented by: Diphenoxylate HCl/Atropine (Lomotil 0.025-2.5 Mg) 2 tab PO Q6H [facility] Last Admin: 10/27/19 09:04 Dose: 2 tab Documented by: Duloxetine HCl (Cymbalta) 60 mg PO DAILY [facility] Last Admin: 10/27/19 08:49 Dose: 60 mg Documented by: Sodium Chloride (Normal Saline) 1,000 mls @ 25 mls/hr IV ASDIRECTED [facility] Magnesium Sulfate 2 gm/ Premix 50 mls @ 25 mls/hr IV Q4H [facility] Last Admin: 10/27/19 10:40 Dose: 25 mls/hr Documented by: Lactated Ringer's (Ringers, Lactated) 1,000 mls @ 60 mls/hr IV ASDIRECTED [facility] Last Admin: 10/27/19 05:45 Dose: 60 mls/hr Documented by: Albumin Human (Albumin 25%) 25 gm in 100 mls @ 25 mls/hr IV Q24H [facility] Stop: 10/29/19 12:59 Last Admin: 10/27/19 09:04 Dose: 25 mls/hr Documented by: Albumin Human (Albumin 25%) 25 gm in 100 mls @ 25 mls/hr IV Q24H [facility] Stop: 10/29/19 16:59 Imipramine HCl (Imipramine Hcl) 200 mg PO BEDTIME [facility] Last Admin: 10/26/19 20:46 Dose: 200 mg Documented by: Lactobacillus Rhamnosus (Culturelle) 1 cap PO BID [facility] Last Admin: 10/27/19 08:50 Dose: 1 cap Documented by: Liraglutide (Victoza) 1.2 mg SUBCUT DAILY [facility] Last Admin: 10/27/19 08:50 Dose: 1.2 mg Documented by: Loperamide HCl (Imodium) 4 mg PO QID [facility] Last Admin: 10/27/19 09:13 Dose: 4 mg Documented by: Magnesium Oxide (Magnesium Oxide) 400 mg PO TID [facility] Last Admin: 10/27/19 08:49 Dose: 400 mg Documented by: Melatonin (Melatonin) 9 mg PO BEDTIME [facility] Last Admin: 10/26/19 20:47 Dose: 9 mg Documented by: Multivitamins/Iron (Child Chew Iron) 1 tab PO DAILY [facility] Last Admin: 10/27/19 08:48 Dose: 1 tab Documented by: Olanzapine (Zyprexa) 5 mg PO Q12H PRN PRN Reason: Anxiety Last Admin: 10/22/19 20:53 Dose: 5 mg Documented by: Ondansetron HCl (Zofran) 4 mg IV Q4H PRN PRN Reason: Nausea/Vomiting Opium Tincture (Opium Tincture 5 Mg/0.5ml U/D) 10 mg PO QID [facility] Last Admin: 10/27/19 10:39 Dose: 10 mg Documented by: Pantoprazole Sodium (Protonix) 40 mg PO BIDAC [facility] Last Admin: 10/27/19 08:50 Dose: 40 mg Documented by: Psyllium Husk (Metamucil Fiber Wafer) 2 each PO TID [facility] Last Admin: 10/27/19 08:51 Dose: 2 each Documented by: Sodium Chloride (Saline Flush) 10 ml FLUSH ASDIRECTED PRN PRN Reason: Keep Vein Open Tizanidine HCl (Zanaflex) 4 mg PO BID PRN PRN Reason: Other Last Admin: 10/27/19 03:15 Dose: 4 mg Documented by: Tramadol HCl (Ultram) 100 mg PO Q6H PRN PRN Reason: Pain Last Admin: 10/27/19 05:39 Dose: 100 mg Documented by: Discontinued Medications Cephalexin (Keflex) 500 mg PO BID [facility] Last Admin: 10/26/19 08:49 Dose: 500 mg Documented by: Clonidine HCl (Catapres) 0.1 mg PO BID [facility] Last Admin: 10/26/19 20:46 Dose: 0.1 mg Documented by: Enoxaparin Sodium (Lovenox) 30 mg SUBCUT DAILY [facility] Last Admin: 10/22/19 20:52 Dose: 30 mg Documented by: Enoxaparin Sodium (Lovenox) 30 mg SUBCUT Q24H [facility] Hydromorphone HCl (Dilaudid) 0.5 mg IVPUSH ONETIME ONE Stop: 10/22/19 18:46 Last Admin: 10/22/19 18:51 Dose: 0.5 mg Documented by: Sodium Chloride (Normal Saline) 1,000 mls @ 999 mls/hr IV ASDIRECTED [facility] Last Admin: 10/22/19 17:56 Dose: 999 mls/hr Documented by: Magnesium Sulfate 2 gm/ Premix 50 mls @ 12.5 mls/hr IV ONETIME ONE Stop: 10/22/19 21:25 Last Admin: 10/22/19 18:18 Dose: 12.5 mls/hr Documented by: Ceftriaxone Sodium 1 gm/ (Sodium Chloride) 50 mls @ 100 mls/hr IV Q24H [facility] Last Admin: 10/23/19 20:48 Dose: 100 mls/hr Documented by: Sodium Chloride (Normal Saline) 1,000 mls @ 250 mls/hr IV ASDIRECTED [facility] Stop: 10/23/19 01:26 Last Admin: 10/22/19 20:54 Dose: 250 mls/hr Documented by: Sodium Chloride (Normal Saline) 1,000 mls @ 125 mls/hr IV ASDIRECTED [facility] Last Admin: 10/23/19 07:22 Dose: 125 mls/hr Documented by: Magnesium Sulfate 2 gm/ Premix 50 mls @ 25 mls/hr IV Q6H [facility] Stop: 10/23/19 07:59 Last Admin: 10/23/19 05:34 Dose: 25 mls/hr Documented by: Sodium Chloride (Normal Saline) 500 mls @ 500 mls/hr IV .BOLUS ONE Stop: 10/23/19 03:59 Last Admin: 10/23/19 03:59 Dose: 500 mls/hr Documented by: Sodium Chloride (Normal Saline) 1,000 mls @ 75 mls/hr IV ASDIRECTED [facility] Albumin Human (Albumin 25%) 25 gm in 100 mls @ 25 mls/hr IV Q4H [facility] Stop: 10/25/19 21:29 Last Admin: 10/25/19 17:56 Dose: 25 mls/hr Documented by: Liraglutide (Victoza) 0.6 mg SUBCUT DAILY [facility] Last Admin: 10/26/19 10:55 Dose: 0.6 mg Documented by: Loperamide HCl (Imodium) 4 mg PO Q4H PRN PRN Reason: Diarrhea Last Admin: 10/22/19 20:51 Dose: 4 mg Documented by: Opium Tincture (Opium Tincture) 10 mg PO TID [facility] Opium Tincture (Opium Tincture 5 Mg/0.5ml U/D) 10 mg PO TID [facility] Last Admin: 10/26/19 09:03 Dose: 10 mg Documented by: Opium Tincture (Opium Tincture 5 Mg/0.5ml U/D) 10 mg PO ONETIME ONE Stop: 10/26/19 12:31 Last Admin: 10/26/19 13:58 Dose: 10 mg Documented by: Oxycodone HCl (Oxycodone) 5 mg PO Q4H PRN PRN Reason: Pain Last Admin: 10/25/19 11:27 Dose: 5 mg Documented by: Pantoprazole Sodium (Protonix Iv) 40 mg IVPUSH ONETIME ONE Stop: 10/22/19 17:35 Last Admin: 10/22/19 18:18 Dose: 40 mg Documented by: Pantoprazole Sodium (Protonix Iv) 40 mg IV ONETIME ONE Stop: 10/26/19 10:01 Last Admin: 10/26/19 10:55 Dose: 40 mg Documented by: Potassium Chloride (Klor-Con M20) 40 meq PO ONETIME ONE Stop: 10/23/19 08:01 Last Admin: 10/23/19 08:38 Dose: 40 meq Documented by: Psyllium Husk (Metamucil Fiber Wafer) 2 each PO BID [facility] Last Admin: 10/26/19 20:46 Dose: 2 each Documented by: Tramadol HCl (Ultram) 100 mg PO Q6H PRN PRN Reason: Pain - Exam Quality Assessment: No: Supplemental Oxygen General: Alert, Oriented, Cooperative, No Acute Distress Lungs: Normal Respiratory Effort GI/Abdominal Exam: Soft, No Distention Extremities: No Pedal Edema Psy/Mental Status: Alert, Normal Affect Sepsis Event Note - Evaluation Sepsis Screening Result: No Definite Risk - Focused Exam Vital Signs: Vital Signs Temp Pulse Resp BP Pulse Ox 10/27/19 07:00 35.6 C L 66 18 98/53 L 100 10/27/19 03:16 36.2 C 70 17 90/45 L 98 10/26/19 23:45 35.3 C L 78 18 104/41 L 97 Date Exam was Performed: 10/27/19 Time Exam was Performed: 11:23 - Problem List Review Problem List Initiated/Reviewed/Updated: Yes - Plan Plan:: ASSESSMENT AND PLAN DIARRHEA/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 Not much change in the past 24 hours. Blood pressure low so clonidine will be held. Blood work is all stable and overall she looks well but continues to have a very high output and is at a very high risk for problems given her solitary kidney and risk for dehydration. -Additional management as recommended by surgery -Discontinue clonidine with low blood pressure -Scheduled Lomotil -Schedule Imodium 4 times daily -Tincture of opium 3 times daily -High-fiber diet -Encourage oral intake ACUTE KIDNEY INJURY-resolved. At high risk for recurrence without aggressive interventions discussed above. -Closely monitor urine output and renal function URINARY TRACT INFECTION-culture growing Klebsiella and she has completed adequate treatment. OPEN ABDOMINAL WOUND-healing well, no issues. -Continue current management and wound care MAINTENANCE ISSUES -DVT prophylaxis; SCDs -GI prophylaxis; continue outpatient PPI therapy -Nutrition; regular diet DISPOSITION-anticipate discharge to home after the hospital stay. Rda Pedersen MD
[2019-10-27] MEDS: cloNIDine 0.1 MG Tab PO SCH (11:41)
--- NOTE | 2019-10-27 13:16 | PN ---
DATE OF SERVICE: 10/27/2019 The patient has been afebrile. Stable vital signs. She was on 2 L of the Gatorade with sodium chloride supplementation and ileostomy output is still quite excessive and we will adjust today in terms of increasing Metamucil wafers to 2 wafers t.i.d. and move the Victoza up to 1.2 mg subcu today and q.a.m. We will need to check and see if Victoza is covered by insurance. Otherwise, we will give her some additional albumin today and over the next couple of days. Her hemoglobin is 7.8. We will give her 1 unit of packed RBCs today as well and then have Dietary see the patient on Monday regarding decreasing hypertonic p.o. intake and continue the magnesium supplementation. Shamar Reno MD /[id number]
[2019-10-27] MEDS: Ondansetron 4 MG/2 ML SDV IV PRN (14:21)
[2019-10-27] MEDS: Melatonin 3 MG Tab PO SCH (20:07)
[2019-10-28] MEDS: Atropine/Diphenoxylate 0.025-2.5 MG Tab PO SCH ×4 (01:00→22:15)
[2019-10-28] MEDS: tiZANidine 2 MG Tab PO PRN ×2 (01:00→09:08)
[2019-10-28] MEDS: Magnesium Sulfate/Water 2 GM in Premix Bag 1 BAG IV SCH ×8 (01:00→22:20)
[2019-10-28] MEDS: Ondansetron 4 MG/2 ML SDV IV PRN ×3 (03:30→19:12)
[2019-10-28] MEDS: Loperamide 2 MG Cap PO SCH ×4 (05:10→22:16)
[2019-10-28] MEDS: [UNRECOGNIZED DRUG - OTHER] PO SCH ×4 (05:11→22:21)
[2019-10-28] MEDS: Amylase/Lipase/Protease 12,000 Unit Cap.CR PO SCH ×3 (07:45→16:03)
[2019-10-28] MEDS: Pantoprazole 40 MG Tab.CR PO SCH ×2 (07:45→16:02)
[2019-10-28] MEDS ORDERED: Liraglutide (rDNA Origin) 0.6 MG/0.1 ML 3 ML Pen SUBCUT SCH (09:00)
[2019-10-28] MEDS: Magnesium Oxide 400 MG Tab PO SCH ×3 (09:05→22:15)
[2019-10-28] MEDS: DULoxetine 30 MG Cap PO SCH (09:05)
[2019-10-28] MEDS: Lactobacillus Rhamnosus GG (Probiotic) Cap PO SCH ×2 (09:05→22:15)
[2019-10-28] MEDS: Psyllium Seed (With Sugar) Wafer PO SCH ×3 (09:05→22:16)
[2019-10-28] MEDS: Multivitamins with Iron Tab.Chew PO SCH (09:05)
[2019-10-28] MEDS: traMADol 50 MG Tab PO PRN (09:08)
--- NOTE | 2019-10-28 12:30 | PN ---
DATE OF SERVICE: 10/28/2019 SUBJECTIVE: Aline continues to have high output out of her ileostomy. She put out 4300 yesterday. Oral intake 2880, although she states that she did drink 3 L of Gatorade. She reports she has been up ambulating and has no other questions or concerns today. Hemoglobin 8.5, creatinine 1.1, phosphorus 3.4, magnesium is 4.3. REVIEW OF SYSTEMS: Remainder of review of systems negative for any pertinent positives and negatives. OBJECTIVE: GENERAL: Aline Foley is a 58-year-old female. Color pale. She is alert and orientated. VITAL SIGNS: TPR is 97.3, 78, 16, and blood pressure 121/72. HEENT: Negative. NECK: Supple. HEART: Regular rate and rhythm. LUNGS: Clear. ABDOMEN: Soft and nontender. Ileostomy in place. Open wound, dressing dry and intact. EXTREMITIES: Without peripheral edema. ASSESSMENT: 1. Diarrhea, history of ileostomy, large output. 2. Acute kidney injury, resolved. 3. Urinary tract infection, Klebsiella, resolved. 4. Open abdominal wound. 5. Chronic low magnesium. PLAN: 1. Schedule and have consent signed for port placement, 10/29/2019, at 0715, first case. IV local sedation. Surgeon: Shamar Reno MD. N.p.o. after midnight. 2. Hold clonidine if systolic blood pressure is 105 or less. 3. Increase Victoza 1.8 subcu q.a.m. 4. We will be checking with insurance company if they will pay for the Victoza. 5. Dietary consult in regard to high ostomy output. 6. Step 4 gastric bypass diet. 7. N.p.o. after midnight. 8. We will evaluate p.r.n. or in a.m. Aline Landeros PA-C /[id number]
--- NOTE | 2019-10-28 13:25 | PCM.PN ---
- General Info Date of Service: 10/28/19 Subjective Update: Ms. Foley unfortunately continues to experience high ostomy output. Otherwise she has been doing well and remains afebrile. She has been eating and walking in the hallways. Functional Status: Reports: Tolerating Diet, Ambulating, Urinating - Review of Systems General: Reports: No Symptoms Pulmonary: Reports: No Symptoms Cardiovascular: Reports: No Symptoms Gastrointestinal: Reports: No Symptoms - Patient Data Vitals - Most Recent: Last Vital Signs Temp 97.4 F 10/28/19 10:36 Pulse 80 10/28/19 10:36 Resp 16 10/28/19 10:36 BP 96/50 L 10/28/19 10:36 Pulse Ox 98 10/28/19 10:36 Weight - Most Recent: 163 lb 9.328 oz I&O - Last 24 Hours: Intake & Output 10/27/19 10/28/19 10/28/19 22:59 06:59 14:59 Intake Total 1130 975 600 Output Total 2400 1400 600 Balance -1270 -425 0 Lab Results Last 24 Hours: Laboratory Results - last 24 hr 10/28/19 10/28/19 Range/Units 04:10 04:10 WBC 2.8 L (4.5-11.0) K/uL RBC 2.79 L (3.30-5.50) M/uL Hgb 8.5 L (12.0-15.0) g/dL Hct 27.2 L (36.0-48.0) % MCV 98 (80-98) fL MCH 31 (27-31) pg MCHC 31 L (32-36) % Plt Count 116 L (150-400) K/uL Sodium 143 (140-148) mmol/L Potassium 4.4 (3.6-5.2) mmol/L Chloride 108 (100-108) mmol/L Carbon Dioxide 27 (21-32) mmol/L Anion Gap 8.2 (5.0-14.0) mmol/L BUN 10 (7-18) mg/dL Creatinine 1.1 H (0.6-1.0) mg/dL Est Cr Clr Drug Dosing 53.41 mL/min Estimated GFR (MDRD) 51 L (>60) Glucose 90 (74-106) mg/dL Calcium 8.3 L (8.5-10.1) mg/dL Phosphorus 3.4 (2.5-4.9) mg/dL Magnesium 4.3 H D (1.8-2.4) mg/dL Total Bilirubin 0.4 (0.2-1.0) mg/dL AST 14 L (15-37) U/L ALT 23 (12-78) U/L Alkaline Phosphatase 79 (46-116) U/L Total Protein 6.7 (6.4-8.2) g/dL Albumin 3.6 (3.4-5.0) g/dL Globulin 3.1 (2.3-3.5) g/dL Albumin/Globulin Ratio 1.2 (1.2-2.2) Med Orders - Current: Current Medications Acetaminophen (Tylenol) 650 mg PO Q4H PRN PRN Reason: Pain (Mild 1-3)/fever Last Admin: 10/27/19 03:15 Dose: 650 mg Documented by: Lipase/Protease/Amylase (Gus Dr 12,000 Units) 2 cap PO TIDMEALS [facility] Last Admin: 10/28/19 11:39 Dose: 2 cap Documented by: Diphenoxylate HCl/Atropine (Lomotil 0.025-2.5 Mg) 2 tab PO Q6H [facility] Last Admin: 10/28/19 07:45 Dose: 2 tab Documented by: Duloxetine HCl (Cymbalta) 60 mg PO DAILY [facility] Last Admin: 10/28/19 09:05 Dose: 60 mg Documented by: Sodium Chloride (Normal Saline) 1,000 mls @ 25 mls/hr IV ASDIRECTED [facility] Magnesium Sulfate 2 gm/ Premix 50 mls @ 25 mls/hr IV Q4H [facility] Last Admin: 10/28/19 11:39 Dose: 25 mls/hr Documented by: Lactated Ringer's (Ringers, Lactated) 1,000 mls @ 60 mls/hr IV ASDIRECTED [facility] Last Admin: 10/27/19 17:00 Dose: 60 mls/hr Documented by: Albumin Human (Albumin 25%) 25 gm in 100 mls @ 25 mls/hr IV Q24H [facility] Stop: 10/29/19 12:59 Last Admin: 10/28/19 09:04 Dose: 25 mls/hr Documented by: Albumin Human (Albumin 25%) 25 gm in 100 mls @ 25 mls/hr IV Q24H [facility] Stop: 10/29/19 16:59 Last Admin: 10/27/19 12:44 Dose: 25 mls/hr Documented by: Imipramine HCl (Imipramine Hcl) 200 mg PO BEDTIME [facility] Last Admin: 10/27/19 20:09 Dose: 200 mg Documented by: Lactobacillus Rhamnosus (Culturelle) 1 cap PO BID [facility] Last Admin: 10/28/19 09:05 Dose: 1 cap Documented by: Liraglutide (Victoza) 1.8 mg SUBCUT DAILY [facility] Last Admin: 10/28/19 09:06 Dose: 1.8 mg Documented by: Loperamide HCl (Imodium) 4 mg PO QID [facility] Last Admin: 10/28/19 09:04 Dose: 4 mg Documented by: Lorazepam (Ativan) 0.5 mg IVPUSH Q4H PRN PRN Reason: Nausea Magnesium Oxide (Magnesium Oxide) 400 mg PO TID [facility] Last Admin: 10/28/19 09:05 Dose: 400 mg Documented by: Melatonin (Melatonin) 9 mg PO BEDTIME [facility] Last Admin: 10/27/19 20:07 Dose: 9 mg Documented by: Multivitamins/Iron (Child Chew Iron) 1 tab PO DAILY [facility] Last Admin: 10/28/19 09:05 Dose: 1 tab Documented by: Olanzapine (Zyprexa) 5 mg PO Q12H PRN PRN Reason: Anxiety Last Admin: 10/22/19 20:53 Dose: 5 mg Documented by: Ondansetron HCl (Zofran) 4 mg IV Q4H PRN PRN Reason: Nausea/Vomiting Last Admin: 10/28/19 03:30 Dose: 4 mg Documented by: Opium Tincture (Opium Tincture 5 Mg/0.5ml U/D) 10 mg PO QID [facility] Last Admin: 10/28/19 11:40 Dose: 10 mg Documented by: Pantoprazole Sodium (Protonix) 40 mg PO BIDAC [facility] Last Admin: 10/28/19 07:45 Dose: 40 mg Documented by: Psyllium Husk (Metamucil Fiber Wafer) 2 each PO TID [facility] Last Admin: 10/28/19 09:05 Dose: 2 each Documented by: Sodium Chloride (Saline Flush) 10 ml FLUSH ASDIRECTED PRN PRN Reason: Keep Vein Open Tizanidine HCl (Zanaflex) 4 mg PO BID PRN PRN Reason: Other Last Admin: 10/28/19 09:08 Dose: 4 mg Documented by: Tramadol HCl (Ultram) 100 mg PO Q6H PRN PRN Reason: Pain Last Admin: 10/28/19 09:08 Dose: 100 mg Documented by: Discontinued Medications Cephalexin (Keflex) 500 mg PO BID [facility] Last Admin: 10/26/19 08:49 Dose: 500 mg Documented by: Clonidine HCl (Catapres) 0.1 mg PO BID [facility] Last Admin: 10/27/19 11:41 Dose: Not Given Documented by: Enoxaparin Sodium (Lovenox) 30 mg SUBCUT DAILY [facility] Last Admin: 10/22/19 20:52 Dose: 30 mg Documented by: Enoxaparin Sodium (Lovenox) 30 mg SUBCUT Q24H [facility] Hydromorphone HCl (Dilaudid) 0.5 mg IVPUSH ONETIME ONE Stop: 10/22/19 18:46 Last Admin: 10/22/19 18:51 Dose: 0.5 mg Documented by: Sodium Chloride (Normal Saline) 1,000 mls @ [facility] Last Admin: 10/22/19 17:56 Dose: 999 mls/hr Documented by: Magnesium Sulfate 2 gm/ Premix 50 mls @ 12.5 mls/hr IV ONETIME ONE Stop: 10/22/19 21:25 Last Admin: 10/22/19 18:18 Dose: 12.5 mls/hr Documented by: Ceftriaxone Sodium 1 gm/ (Sodium Chloride) 50 mls @ 100 mls/hr IV Q24H [facility] Last Admin: 10/23/19 20:48 Dose: 100 mls/hr Documented by: Sodium Chloride (Normal Saline) 1,000 mls @ 250 mls/hr IV ASDIRECTED [facility] Stop: 10/23/19 01:26 Last Admin: 10/22/19 20:54 Dose: 250 mls/hr Documented by: Sodium Chloride (Normal Saline) 1,000 mls @ 125 mls/hr IV ASDIRECTED [facility] Last Admin: 10/23/19 07:22 Dose: 125 mls/hr Documented by: Magnesium Sulfate 2 gm/ Premix 50 mls @ 25 mls/hr IV Q6H [facility] Stop: 10/23/19 07:59 Last Admin: 10/23/19 05:34 Dose: 25 mls/hr Documented by: Sodium Chloride (Normal Saline) 500 mls @ 500 mls/hr IV .BOLUS ONE Stop: 10/23/19 03:59 Last Admin: 10/23/19 03:59 Dose: 500 mls/hr Documented by: Sodium Chloride (Normal Saline) 1,000 mls @ 75 mls/hr IV ASDIRECTED [facility] Albumin Human (Albumin 25%) 25 gm in 100 mls @ 25 mls/hr IV Q4H [facility] Stop: 10/25/19 21:29 Last Admin: 10/25/19 17:56 Dose: 25 mls/hr Documented by: Liraglutide (Victoza) 0.6 mg SUBCUT DAILY [facility] Last Admin: 10/26/19 10:55 Dose: 0.6 mg Documented by: Liraglutide (Victoza) 1.2 mg SUBCUT DAILY [facility] Last Admin: 10/27/19 08:50 Dose: 1.2 mg Documented by: Loperamide HCl (Imodium) 4 mg PO Q4H PRN PRN Reason: Diarrhea Last Admin: 10/22/19 20:51 Dose: 4 mg Documented by: Opium Tincture (Opium Tincture) 10 mg PO TID [facility] Opium Tincture (Opium Tincture 5 Mg/0.5ml U/D) 10 mg PO TID [facility] Last Admin: 10/26/19 09:03 Dose: 10 mg Documented by: Opium Tincture (Opium Tincture 5 Mg/0.5ml U/D) 10 mg PO ONETIME ONE Stop: 10/26/19 12:31 Last Admin: 10/26/19 13:58 Dose: 10 mg Documented by: Oxycodone HCl (Oxycodone) 5 mg PO Q4H PRN PRN Reason: Pain Last Admin: 10/25/19 11:27 Dose: 5 mg Documented by: Pantoprazole Sodium (Protonix Iv) 40 mg IVPUSH ONETIME ONE Stop: 10/22/19 17:35 Last Admin: 10/22/19 18:18 Dose: 40 mg Documented by: Pantoprazole Sodium (Protonix Iv) 40 mg IV ONETIME ONE Stop: 10/26/19 10:01 Last Admin: 10/26/19 10:55 Dose: 40 mg Documented by: Potassium Chloride (Klor-Con M20) 40 meq PO ONETIME ONE Stop: 10/23/19 08:01 Last Admin: 10/23/19 08:38 Dose: 40 meq Documented by: Psyllium Husk (Metamucil Fiber Wafer) 2 each PO BID [facility] Last Admin: 10/26/19 20:46 Dose: 2 each Documented by: Tramadol HCl (Ultram) 100 mg PO Q6H PRN PRN Reason: Pain - Exam Quality Assessment: DVT Prophylaxis General: Alert, Oriented, Cooperative, Mild Distress Lungs: Clear to Auscultation, Normal Respiratory Effort Cardiovascular: Regular Rate, Regular Rhythm, No Murmurs GI/Abdominal Exam: Soft, Non-Tender, No Organomegaly, No Distention Extremities: Non-Tender, No Pedal Edema Sepsis Event Note - Evaluation Sepsis Screening Result: No Definite Risk - Focused Exam Vital Signs: Vital Signs Temp Pulse Resp BP Pulse Ox 10/28/19 10:36 97.4 F 80 16 96/50 L 98 10/28/19 07:04 97.3 F 78 16 121/72 97 Date Exam was Performed: 10/28/19 Time Exam was Performed: 13:23 - Problem List Review Problem List Initiated/Reviewed/Updated: Yes - Plan Plan:: ASSESSMENT AND PLAN DIARRHEA/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 Not much change in the past 24 hours. Blood pressure low so clonidine will be held. Blood work is all stable and overall she looks well but continues to have a very high output and is at a very high risk for problems given her solitary kidney and risk for dehydration. -Additional management as recommended by surgery -Discontinue clonidine with low blood pressure -Scheduled Lomotil -Schedule Imodium 4 times daily -Tincture of opium 3 times daily -High-fiber diet -Encourage oral intake ACUTE KIDNEY INJURY-resolved. At high risk for recurrence without aggressive interventions discussed above. -Closely monitor urine output and renal function URINARY TRACT INFECTION-culture growing Klebsiella and she has completed adequate treatment. OPEN ABDOMINAL WOUND-healing well, no issues. -Continue current management and wound care MAINTENANCE ISSUES -DVT prophylaxis; SCDs -GI prophylaxis; continue outpatient PPI therapy -Nutrition; regular diet DISPOSITION-anticipate discharge to home after the hospital stay.
[2019-10-28] MEDS: LORazepam 2 MG/ML SDV IVPUSH PRN (20:02)
[2019-10-28] MEDS ORDERED: Metoclopramide 10 MG Tab PO ONE (21:31)
[2019-10-28] MEDS ORDERED: Metoclopramide 10 MG/2 ML SDV IV STA (22:08)
[2019-10-28] MEDS: Melatonin 3 MG Tab PO SCH (22:15)
[2019-10-28] MEDS: Lactated Ringers 1,000 ML IV SCH (22:25)
[2019-10-29] MEDS: LORazepam 2 MG/ML SDV IVPUSH PRN ×3 (00:20→10:53)
[2019-10-29] MEDS: Atropine/Diphenoxylate 0.025-2.5 MG Tab PO SCH ×4 (02:48→20:00)
[2019-10-29] MEDS: Magnesium Sulfate/Water 2 GM in Premix Bag 1 BAG IV SCH ×6 (02:48→21:15)
[2019-10-29] MEDS: [UNRECOGNIZED DRUG - OTHER] PO SCH (08:13)
[2019-10-29] MEDS: Loperamide 2 MG Cap PO SCH ×4 (08:51→21:15)
--- NOTE | 2019-10-29 08:55 | PN ---
DATE OF SERVICE: 10/29/2019 SUBJECTIVE: Aline had become nauseated last evening, had a total of 350 emesis. Oral intake was 2540 and output 875. Her ileostomy put out 2024. She reports she continues to be a little bit nauseated. REVIEW OF SYSTEMS: Remainder of review of systems negative for any pertinent positives and negatives. OBJECTIVE: GENERAL: Aline Foley is a 58-year-old female, color pale. VITAL SIGNS: TPR on 10/28/2019 at 2226, 96; 76; 16; blood pressure 165/57. HEENT: Negative. NECK: Supple. HEART: Regular rate and rhythm. LUNGS: Clear. ABDOMEN: Soft and nontender. Ileostomy intact. EXTREMITIES: Without peripheral edema. ASSESSMENT: 1. Postpone port placement until tomorrow, make n.p.o. after midnight tonight. Hold Victoza. 2. Hold tincture of opium. 3. Increase IV of LR to 125 mL/hour. 4. We will evaluate p.r.n. or in a.m. Aline Landeros PA-C /[id number]
[2019-10-29] MEDS: Pantoprazole 40 MG Tab.CR PO SCH ×2 (09:06→15:59)
[2019-10-29] MEDS: Amylase/Lipase/Protease 12,000 Unit Cap.CR PO SCH ×3 (09:06→17:02)
[2019-10-29] MEDS: Magnesium Oxide 400 MG Tab PO SCH ×3 (09:07→20:01)
[2019-10-29] MEDS: Psyllium Seed (With Sugar) Wafer PO SCH ×4 (09:07→20:02)
[2019-10-29] MEDS: traMADol 50 MG Tab PO PRN ×2 (09:21→20:08)
[2019-10-29] MEDS: tiZANidine 2 MG Tab PO PRN ×2 (09:21→20:08)
[2019-10-29] MEDS: Ondansetron 4 MG/2 ML SDV IV PRN (09:21)
[2019-10-29] MEDS: Multivitamins with Iron Tab.Chew PO SCH (10:58)
[2019-10-29] MEDS: Lactobacillus Rhamnosus GG (Probiotic) Cap PO SCH ×2 (10:58→20:00)
[2019-10-29] MEDS: DULoxetine 30 MG Cap PO SCH (10:58)
--- NOTE | 2019-10-29 12:26 | PCM.PN ---
- General Info Date of Service: 10/29/19 Subjective Update: Ms. Foley has unfortunately experienced nausea and vomiting since yesterday afternoon. Output from her ostomy has decreased during the last 24 hours to a much more reasonable range. Plan is for placement of James catheter tomorrow by Dr. Reno. Functional Status: Reports: Tolerating Diet, Ambulating, Urinating - Review of Systems General: Reports: No Symptoms Pulmonary: Reports: No Symptoms Cardiovascular: Reports: No Symptoms Gastrointestinal: Reports: Nausea, Vomiting. Denies: Abdominal Pain, Difficulty Swallowing - Patient Data Vitals - Most Recent: Last Vital Signs Temp 95.6 F L 10/29/19 08:48 Pulse 75 10/29/19 08:48 Resp 16 10/29/19 08:48 BP 124/53 L 10/29/19 08:48 Pulse Ox 99 10/29/19 08:48 Weight - Most Recent: 163 lb 9.328 oz I&O - Last 24 Hours: Intake & Output 10/28/19 10/29/19 10/29/19 22:59 06:59 14:59 Intake Total 3040 150 Output Total 2375 350 8852 Balance 1240 -850 -1600 Lab Results Last 24 Hours: Laboratory Results - last 24 hr 10/29/19 Range/Units 05:40 Sodium 140 (140-148) mmol/L Potassium 5.2 (3.6-5.2) mmol/L Chloride 104 (100-108) mmol/L Carbon Dioxide 30 (21-32) mmol/L Anion Gap 6.4 (5.0-14.0) mmol/L BUN 11 (7-18) mg/dL Creatinine 1.2 H (0.6-1.0) mg/dL Est Cr Clr Drug Dosing 48.96 mL/min Estimated GFR (MDRD) 46 L (>60) Glucose 100 (74-106) mg/dL Calcium 9.0 (8.5-10.1) mg/dL Magnesium 3.2 H D (1.8-2.4) mg/dL Eliud Results Last 24 Hours: Microbiology 10/22/19 17:30 Ova and Parasites - Final Stool / Feces Med Orders - Current: Current Medications Acetaminophen (Tylenol) 650 mg PO Q4H PRN PRN Reason: Pain (Mild 1-3)/fever Last Admin: 10/27/19 03:15 Dose: 650 mg Documented by: Lipase/Protease/Amylase (Gus Greer 12,000 Units) 2 cap PO TIDMEALS [facility] Last Admin: 10/29/19 09:06 Dose: Not Given Documented by: Diphenoxylate HCl/Atropine (Lomotil 0.025-2.5 Mg) 2 tab PO Q6H [facility] Last Admin: 10/29/19 08:53 Dose: Not Given Documented by: Duloxetine HCl (Cymbalta) 60 mg PO DAILY [facility] Last Admin: 10/29/19 10:58 Dose: 60 mg Documented by: Sodium Chloride (Normal Saline) 1,000 mls @ 25 mls/hr IV ASDIRECTED [facility] Magnesium Sulfate 2 gm/ Premix 50 mls @ 25 mls/hr IV Q4H [facility] Last Admin: 10/29/19 09:07 Dose: Not Given Documented by: Albumin Human (Albumin 25%) 25 gm in 100 mls @ 25 mls/hr IV Q24H [facility] Stop: 10/29/19 12:59 Last Admin: 10/29/19 09:23 Dose: 25 mls/hr Documented by: Albumin Human (Albumin 25%) 25 gm in 100 mls @ 25 mls/hr IV Q24H [facility] Stop: 10/29/19 16:59 Last Admin: 10/28/19 13:40 Dose: 25 mls/hr Documented by: Lactated Ringer's (Ringers, Lactated) 1,000 mls @ 125 mls/hr IV ASDIRECTED [facility] Imipramine HCl (Imipramine Hcl) 200 mg PO BEDTIME [facility] Last Admin: 10/28/19 22:15 Dose: Not Given Documented by: Lactobacillus Rhamnosus (Culturelle) 1 cap PO BID [facility] Last Admin: 10/29/19 10:58 Dose: 1 cap Documented by: Liraglutide (Victoza) 1.8 mg SUBCUT DAILY [facility] Last Admin: 10/28/19 09:06 Dose: 1.8 mg Documented by: Loperamide HCl (Imodium) 4 mg PO QID [facility] Last Admin: 10/29/19 10:57 Dose: 4 mg Documented by: Lorazepam (Ativan) 0.5 mg IVPUSH Q4H PRN PRN Reason: Nausea Last Admin: 10/29/19 10:53 Dose: 0.5 mg Documented by: Magnesium Oxide (Magnesium Oxide) 400 mg PO TID [facility] Last Admin: 10/29/19 09:07 Dose: Not Given Documented by: Melatonin (Melatonin) 9 mg PO BEDTIME [facility] Last Admin: 10/28/19 22:15 Dose: Not Given Documented by: Metoclopramide HCl (Reglan) 10 mg PO Q6H PRN PRN Reason: Nausea/Vomiting Multivitamins/Iron (Child Chew Iron) 1 tab PO DAILY [facility] Last Admin: 10/29/19 10:58 Dose: 1 tab Documented by: Olanzapine (Zyprexa) 5 mg PO Q12H PRN PRN Reason: Anxiety Last Admin: 10/22/19 20:53 Dose: 5 mg Documented by: Ondansetron HCl (Zofran) 4 mg IV Q4H PRN PRN Reason: Nausea/Vomiting Last Admin: 10/29/19 09:21 Dose: 4 mg Documented by: Opium Tincture (Opium Tincture 5 Mg/0.5ml U/D) 10 mg PO QID [facility] Last Admin: 10/29/19 08:13 Dose: Not Given Documented by: Pantoprazole Sodium (Protonix) 40 mg PO BIDAC COUNT [facility] Last Admin: 10/29/19 09:06 Dose: Not Given Documented by: Psyllium Husk (Metamucil Fiber Wafer) 2 each PO TID [facility] Last Admin: 10/29/19 10:57 Dose: 2 each Documented by: Sodium Chloride (Saline Flush) 10 ml FLUSH ASDIRECTED PRN PRN Reason: Keep Vein Open Tizanidine HCl (Zanaflex) 4 mg PO BID PRN PRN Reason: Other Last Admin: 10/29/19 09:21 Dose: 4 mg Documented by: Tramadol HCl (Ultram) 100 mg PO Q6H PRN PRN Reason: Pain Last Admin: 10/29/19 09:21 Dose: 100 mg Documented by: Discontinued Medications Cephalexin (Keflex) 500 mg PO BID [facility] Last Admin: 10/26/19 08:49 Dose: 500 mg Documented by: Clonidine HCl (Catapres) 0.1 mg PO BID [facility] Last Admin: 10/27/19 11:41 Dose: Not Given Documented by: Enoxaparin Sodium (Lovenox) 30 mg SUBCUT DAILY [facility] Last Admin: 10/22/19 20:52 Dose: 30 mg Documented by: Enoxaparin Sodium (Lovenox) 30 mg SUBCUT Q24H [facility] Hydromorphone HCl (Dilaudid) 0.5 mg IVPUSH ONETIME ONE Stop: 10/22/19 18:46 Last Admin: 10/22/19 18:51 Dose: 0.5 mg Documented by: Sodium Chloride (Normal Saline) 1,000 mls @ 999 mls/hr IV ASDIRECTED COUNT [facility] Last Admin: 10/22/19 17:56 Dose: 999 mls/hr Documented by: Magnesium Sulfate 2 gm/ Premix 50 mls @ 12.5 mls/hr IV ONETIME ONE Stop: 10/22/19 21:25 Last Admin: 10/22/19 18:18 Dose: 12.5 mls/hr Documented by: Ceftriaxone Sodium 1 gm/ (Sodium Chloride) 50 mls @ 100 mls/hr IV Q24H COUNT [facility] Last Admin: 10/23/19 20:48 Dose: 100 mls/hr Documented by: Sodium Chloride (Normal Saline) 1,000 mls @ 250 mls/hr IV ASDIRECTED COUNT [facility] Stop: 10/23/19 01:26 Last Admin: 10/22/19 20:54 Dose: 250 mls/hr Documented by: Sodium Chloride (Normal Saline) 1,000 mls @ 125 mls/hr IV ASDIRECTED COUNT [facility] Last Admin: 10/23/19 07:22 Dose: 125 mls/hr Documented by: Magnesium Sulfate 2 gm/ Premix 50 mls @ 25 mls/hr IV Q6H COUNT [facility] Stop: 10/23/19 07:59 Last Admin: 10/23/19 05:34 Dose: 25 mls/hr Documented by: Sodium Chloride (Normal Saline) 500 mls @ 500 mls/hr IV .BOLUS ONE Stop: 10/23/19 03:59 Last Admin: 10/23/19 03:59 Dose: 500 mls/hr Documented by: Sodium Chloride (Normal Saline) 1,000 mls @ 75 mls/hr IV ASDIRECTED COUNT [facility] Albumin Human (Albumin 25%) 25 gm in 100 mls @ 25 mls/hr IV Q4H COUNT [facility] Stop: 10/25/19 21:29 Last Admin: 10/25/19 17:56 Dose: 25 mls/hr Documented by: Lactated Ringer's (Ringers, Lactated) 1,000 mls @ 60 mls/hr IV ASDIRECTED COUNT [facility] Last Admin: 10/28/19 22:25 Dose: 60 mls/hr Documented by: Liraglutide (Victoza) 0.6 mg SUBCUT DAILY COUNT [facility] Last Admin: 10/26/19 10:55 Dose: 0.6 mg Documented by: Liraglutide (Victoza) 1.2 mg SUBCUT DAILY COUNT [facility] Last Admin: 10/27/19 08:50 Dose: 1.2 mg Documented by: Loperamide HCl (Imodium) 4 mg PO Q4H PRN PRN Reason: Diarrhea Last Admin: 10/22/19 20:51 Dose: 4 mg Documented by: Metoclopramide HCl (Reglan) 10 mg PO ONETIME ONE Stop: 10/28/19 21:32 Last Admin: 10/28/19 22:07 Dose: Not Given Documented by: Metoclopramide HCl (Reglan) 10 mg IV ONETIME STA Stop: 10/28/19 22:09 Last Admin: 10/28/19 22:23 Dose: 10 mg Documented by: Opium Tincture (Opium Tincture) 10 mg PO TID COUNT [facility] Opium Tincture (Opium Tincture 5 Mg/0.5ml U/D) 10 mg PO TID COUNT [facility] Last Admin: 10/26/19 09:03 Dose: 10 mg Documented by: Opium Tincture (Opium Tincture 5 Mg/0.5ml U/D) 10 mg PO ONETIME ONE Stop: 10/26/19 12:31 Last Admin: 10/26/19 13:58 Dose: 10 mg Documented by: Oxycodone HCl (Oxycodone) 5 mg PO Q4H PRN PRN Reason: Pain Last Admin: 10/25/19 11:27 Dose: 5 mg Documented by: Pantoprazole Sodium (Protonix Iv) 40 mg IVPUSH ONETIME ONE Stop: 10/22/19 17:35 Last Admin: 10/22/19 18:18 Dose: 40 mg Documented by: Pantoprazole Sodium (Protonix Iv) 40 mg IV ONETIME ONE Stop: 10/26/19 10:01 Last Admin: 10/26/19 10:55 Dose: 40 mg Documented by: Potassium Chloride (Klor-Con M20) 40 meq PO ONETIME ONE Stop: 10/23/19 08:01 Last Admin: 10/23/19 08:38 Dose: 40 meq Documented by: Psyllium Husk (Metamucil Fiber Wafer) 2 each PO BID [facility] Last Admin: 10/26/19 20:46 Dose: 2 each Documented by: Tramadol HCl (Ultram) 100 mg PO Q6H PRN PRN Reason: Pain - Exam General: Alert, Oriented, Cooperative, Moderate Distress Lungs: Clear to Auscultation, Normal Respiratory Effort Cardiovascular: Regular Rate, Regular Rhythm GI/Abdominal Exam: Soft, Non-Tender, No Organomegaly, No Distention Extremities: Non-Tender, No Pedal Edema Sepsis Event Note - Evaluation Sepsis Screening Result: No Definite Risk - Focused Exam Vital Signs: Vital Signs Temp Pulse Resp BP Pulse Ox 10/29/19 08:48 95.6 F L 75 16 124/53 L 99 10/29/19 02:00 16 Date Exam was Performed: 10/29/19 Time Exam was Performed: 12:24 - Problem List Review Problem List Initiated/Reviewed/Updated: Yes - Plan Plan:: ASSESSMENT AND PLAN DIARRHEA/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 Ostomy output has decreased nicely over the last 24 hours, she is now developed nausea and vomiting. -Additional management as recommended by surgery -Scheduled Lomotil -Schedule Imodium 4 times daily -Tincture of opium 3 times daily -High-fiber diet -Encourage oral intake ACUTE KIDNEY INJURY-resolved. At high risk for recurrence without aggressive interventions discussed above. -Closely monitor urine output and renal function URINARY TRACT INFECTION-culture growing Klebsiella and she has completed adequate treatment. OPEN ABDOMINAL WOUND-healing well, no issues. -Continue current management and wound care MAINTENANCE ISSUES -DVT prophylaxis; SCDs -GI prophylaxis; continue outpatient PPI therapy -Nutrition; regular diet DISPOSITION-anticipate discharge to home after the hospital stay.
[2019-10-29] MEDS: Lactated Ringers 1,000 ML IV SCH ×2 (17:04→22:20)
[2019-10-29] MEDS: Melatonin 3 MG Tab PO SCH (20:02)
[2019-10-30] MEDS: LORazepam 2 MG/ML SDV IVPUSH PRN ×2 (01:30→05:25)
[2019-10-30] MEDS: Atropine/Diphenoxylate 0.025-2.5 MG Tab PO SCH ×4 (01:30→20:20)
[2019-10-30] MEDS: Magnesium Sulfate/Water 2 GM in Premix Bag 1 BAG IV SCH ×6 (01:30→22:02)
[2019-10-30] MEDS: Ondansetron 4 MG/2 ML SDV IV PRN ×4 (03:22→20:17)
[2019-10-30] MEDS: Metoclopramide 10 MG Tab PO PRN ×4 (04:16→23:26)
[2019-10-30] MEDS: tiZANidine 2 MG Tab PO PRN ×2 (05:25→14:00)
[2019-10-30] MEDS: traMADol 50 MG Tab PO PRN ×2 (05:25→14:01)
[2019-10-30] MEDS: Loperamide 2 MG Cap PO SCH ×4 (05:30→22:02)
[2019-10-30] MEDS ORDERED: Bupivacaine 0.5% 50 ML MDV ONE (06:24)
[2019-10-30] MEDS ORDERED: Lidocaine 1% with EPINEPHrine 1:100,000 50 ML MDV ONE (06:24)
[2019-10-30] MEDS: Lactated Ringers 1,000 ML IV SCH ×2 (06:38→14:12)
[2019-10-30] MEDS ORDERED: Propofol 200 MG/20 ML SDV ONE ×2 (06:52→07:27)
[2019-10-30] MEDS ORDERED: Midazolam 1 MG/ML 2 ML SDV ONE (06:52)
[2019-10-30] MEDS ORDERED: fentaNYL 100 MCG/2 ML SDV ONE (06:52)
[2019-10-30] MEDS: DULoxetine 30 MG Cap PO SCH (08:30)
[2019-10-30] MEDS: Psyllium Seed (With Sugar) Wafer PO SCH ×3 (08:30→20:22)
[2019-10-30] MEDS: Lactobacillus Rhamnosus GG (Probiotic) Cap PO SCH ×2 (08:30→20:21)
[2019-10-30] MEDS: Magnesium Oxide 400 MG Tab PO SCH ×3 (08:31→20:22)
[2019-10-30] MEDS: Multivitamins with Iron Tab.Chew PO SCH (08:31)
[2019-10-30] MEDS: Pantoprazole 40 MG Tab.CR PO SCH ×2 (08:39→16:43)
[2019-10-30] MEDS: Amylase/Lipase/Protease 12,000 Unit Cap.CR PO SCH ×3 (08:43→16:43)
[2019-10-30] MEDS ORDERED: Liraglutide (rDNA Origin) 0.6 MG/0.1 ML 3 ML Pen SUBCUT SCH (09:00)
--- NOTE | 2019-10-30 10:33 | PN ---
DATE OF SERVICE: 10/30/2019 SUBJECTIVE: Aline is n.p.o. She will be having a James catheter placed. Her vital signs have been stable. She had 1 episode of nausea, but no emesis. She has questions regarding some moles on her back by her waistband that she would like removed. Dr. Reno did look at those, will remove those at a later time, and she has a stitch from her incision where her James catheter was before, that will be removed during OR. REVIEW OF SYSTEMS: Remainder of review of systems negative for any pertinent positives or negatives. LABORATORY DATA: See EMR. Oral intake 2420. Ostomy output 4150. Urine output 2325. OBJECTIVE: GENERAL: Aline is a 58-year-old female. VITAL SIGNS: TPR at 0845, 97.4, 73, 18, blood pressure 105/55. HEENT: Negative. NECK: Supple. HEART: Regular rate and rhythm. LUNGS: Clear. ABDOMEN: Ileostomy in place. EXTREMITIES: Without peripheral edema. ASSESSMENT: 1. Diarrhea, history of ileostomy, large output. 2. Acute kidney injury, resolved. 3. Urinary tract infection, Klebsiella, resolved. 4. Open abdominal wound. 5. Chronic low magnesium. PLAN: Orders to be written post James catheter placement. We will evaluate p.r.n. or in a.m. Aline Landeros PA-C /[id number]
--- NOTE | 2019-10-30 12:32 | PCM.PN ---
- General Info Date of Service: 10/30/19 Subjective Update: Ms. Foley underwent placement of James catheter earlier today, still recovering from sedation and is mildly to moderately lethargic. Nausea and vomiting have improved but not totally resolved. She continues to experience fairly high output through her ostomy. Functional Status: Reports: Ambulating, Urinating - Review of Systems General: Reports: Weakness, Fatigue. Denies: Fever, Chills Pulmonary: Reports: No Symptoms Cardiovascular: Reports: No Symptoms Gastrointestinal: Reports: Abdominal Pain, Decreased Appetite, Diarrhea, Nausea. Denies: Difficulty Swallowing, Vomiting - Patient Data Vitals - Most Recent: Last Vital Signs Temp 98.2 F 10/30/19 11:04 Pulse 67 10/30/19 11:04 Resp 18 10/30/19 11:04 BP 99/57 L 10/30/19 11:04 Pulse Ox 98 10/30/19 11:04 Weight - Most Recent: 163 lb 9.328 oz I&O - Last 24 Hours: Intake & Output 10/29/19 10/30/19 10/30/19 22:59 06:59 14:59 Intake Total 1016 1800 500 Output Total 1829 3956 8790 Balance -809 -[id number] -[id number] Lab Results Last 24 Hours: Laboratory Results - last 24 hr 10/27/19 10/30/19 10/30/19 Range/Units 08:00 04:00 04:00 WBC 2.0 L (4.5-11.0) K/uL RBC 2.55 L (3.30-5.50) M/uL Hgb 7.8 L (12.0-15.0) g/dL Hct 25.0 L (36.0-48.0) % MCV 98 (80-98) fL MCH 31 (27-31) pg MCHC 31 L (32-36) % Plt Count 123 L (150-400) K/uL Sodium 143 (140-148) mmol/L Potassium 4.0 (3.6-5.2) mmol/L Chloride 105 (100-108) mmol/L Carbon Dioxide 28 (21-32) mmol/L Anion Gap 10.3 (5.0-14.0) mmol/L BUN 12 (7-18) mg/dL Creatinine 1.2 H (0.6-1.0) mg/dL Est Cr Clr Drug Dosing 48.96 mL/min Estimated GFR (MDRD) 46 L (>60) Glucose 97 (74-106) mg/dL Calcium 8.6 (8.5-10.1) mg/dL Phosphorus 3.5 (2.5-4.9) mg/dL Total Bilirubin 0.5 (0.2-1.0) mg/dL AST 14 L (15-37) U/L ALT 18 (12-78) U/L Alkaline Phosphatase 81 (46-116) U/L Total Protein 7.3 (6.4-8.2) g/dL Albumin 4.3 (3.4-5.0) g/dL Globulin 3.0 (2.3-3.5) g/dL Albumin/Globulin Ratio 1.4 (1.2-2.2) Blood Type A POSITIVE Gel Antibody Screen Positive A* Antibody Identification Anti-K Crossmatch See Detail Med Orders - Current: Current Medications Acetaminophen (Tylenol) 650 mg PO Q4H PRN PRN Reason: Pain (Mild 1-3)/fever Last Admin: 10/27/19 03:15 Dose: 650 mg Documented by: Lipase/Protease/Amylase (Gus Greer 12,000 Units) 2 cap PO TIDMEALS [facility] Last Admin: 10/30/19 12:07 Dose: 2 cap Documented by: Diphenoxylate HCl/Atropine (Lomotil 0.025-2.5 Mg) 2 tab PO Q6H [facility] Last Admin: 10/30/19 08:30 Dose: 2 tab Documented by: Duloxetine HCl (Cymbalta) 60 mg PO DAILY [facility] Last Admin: 10/30/19 08:30 Dose: 60 mg Documented by: Heparin Sodium (Porcine) (Heparin Lock Flush 100 Units/Ml) 500 units FLUSH ASDIRECTED PRN PRN Reason: Other Sodium Chloride (Normal Saline) 1,000 mls @ 25 mls/hr IV ASDIRECTED [facility] Magnesium Sulfate 2 gm/ Premix 50 mls @ 25 mls/hr IV Q4H [facility] Last Admin: 10/30/19 09:51 Dose: 25 mls/hr Documented by: Lactated Ringer's (Ringers, Lactated) 1,000 mls @ 125 mls/hr IV ASDIRECTED [facility] Last Admin: 10/30/19 06:38 Dose: 125 mls/hr Documented by: Albumin Human (Albumin 25%) 25 gm in 100 mls @ 25 mls/hr IV Q24H [facility] Stop: 11/01/19 12:59 Last Admin: 10/30/19 09:51 Dose: 25 mls/hr Documented by: Albumin Human (Albumin 25%) 25 gm in 100 mls @ 25 mls/hr IV Q24H [facility] Stop: 11/01/19 16:59 Imipramine HCl (Imipramine Hcl) 200 mg PO BEDTIME [facility] Last Admin: 10/29/19 20:01 Dose: 200 mg Documented by: Lactobacillus Rhamnosus (Culturelle) 1 cap PO BID [facility] Last Admin: 10/30/19 08:30 Dose: 1 cap Documented by: Liraglutide (Victoza) 1.8 mg SUBCUT DAILY [facility] Last Admin: 10/30/19 08:39 Dose: 1.8 mg Documented by: Loperamide HCl (Imodium) 4 mg PO QID [facility] Last Admin: 10/30/19 09:51 Dose: 4 mg Documented by: Lorazepam (Ativan) 0.5 mg IVPUSH Q4H PRN PRN Reason: Nausea Last Admin: 10/30/19 05:25 Dose: 0.5 mg Documented by: Magnesium Oxide (Magnesium Oxide) 400 mg PO TID [facility] Last Admin: 10/30/19 08:31 Dose: 400 mg Documented by: Melatonin (Melatonin) 9 mg PO BEDTIME [facility] Last Admin: 10/29/19 20:02 Dose: 9 mg Documented by: Metoclopramide HCl (Reglan) 10 mg PO Q6H PRN PRN Reason: Nausea/Vomiting Last Admin: 10/30/19 10:08 Dose: 10 mg Documented by: Multivitamins/Iron (Child Chew Iron) 1 tab PO DAILY [facility] Last Admin: 10/30/19 08:31 Dose: 1 tab Documented by: Olanzapine (Zyprexa) 5 mg PO Q12H PRN PRN Reason: Anxiety Last Admin: 10/22/19 20:53 Dose: 5 mg Documented by: Ondansetron HCl (Zofran) 4 mg IV Q4H PRN PRN Reason: Nausea/Vomiting Last Admin: 10/30/19 08:31 Dose: 4 mg Documented by: Opium Tincture (Opium Tincture 5 Mg/0.5ml U/D) 10 mg PO QID [facility] Last Admin: 10/29/19 08:13 Dose: Not Given Documented by: Pantoprazole Sodium (Protonix) 40 mg PO BIDAC [facility] Last Admin: 10/30/19 08:39 Dose: 40 mg Documented by: Psyllium Husk (Metamucil Fiber Wafer) 2 each PO TID [facility] Last Admin: 10/30/19 08:30 Dose: 2 each Documented by: Sodium Chloride (Saline Flush) 10 ml FLUSH ASDIRECTED PRN PRN Reason: Keep Vein Open Tizanidine HCl (Zanaflex) 4 mg PO BID PRN PRN Reason: Other Last Admin: 10/30/19 05:25 Dose: 4 mg Documented by: Tramadol HCl (Ultram) 100 mg PO Q6H PRN PRN Reason: Pain Last Admin: 10/30/19 05:25 Dose: 100 mg Documented by: Discontinued Medications Bupivacaine HCl (Marcaine 0.5%) Confirm Administered Dose 50 ml .ROUTE .STK-MED ONE Stop: 10/30/19 06:25 Last Admin: 10/30/19 07:33 Dose: 7.5 ml Documented by: Cephalexin (Keflex) 500 mg PO BID [facility] Last Admin: 10/26/19 08:49 Dose: 500 mg Documented by: Clonidine HCl (Catapres) 0.1 mg PO BID [facility] Last Admin: 10/27/19 11:41 Dose: Not Given Documented by: Enoxaparin Sodium (Lovenox) 30 mg SUBCUT DAILY [facility] Last Admin: 10/22/19 20:52 Dose: 30 mg Documented by: Enoxaparin Sodium (Lovenox) 30 mg SUBCUT Q24H [facility] Fentanyl (Sublimaze) Confirm Administered Dose 100 mcg .ROUTE .STK-MED ONE Stop: 10/30/19 06:53 Heparin Sodium (Porcine) (Heparin Lock Flush 100 Units/Ml) Confirm Administered Dose 1,500 units .ROUTE .STK-MED ONE Stop: 10/30/19 06:25 Last Admin: 10/30/19 07:28 Dose: 1,500 units Documented by: Hydromorphone HCl (Dilaudid) 0.5 mg IVPUSH ONETIME ONE Stop: 10/22/19 18:46 Last Admin: 10/22/19 18:51 Dose: 0.5 mg Documented by: Sodium Chloride (Normal Saline) 1,000 mls @ 999 mls/hr IV ASDIRECTED [facility] Last Admin: 10/22/19 17:56 Dose: 999 mls/hr Documented by: Magnesium Sulfate 2 gm/ Premix 50 mls @ 12.5 mls/hr IV ONETIME ONE Stop: 10/22/19 21:25 Last Admin: 10/22/19 18:18 Dose: 12.5 mls/hr Documented by: Ceftriaxone Sodium 1 gm/ (Sodium Chloride) 50 mls @ 100 mls/hr IV Q24H [facility] Last Admin: 10/23/19 20:48 Dose: 100 mls/hr Documented by: Sodium Chloride (Normal Saline) 1,000 mls @ 250 mls/hr IV ASDIRECTED [facility] Stop: 10/23/19 01:26 Last Admin: 10/22/19 20:54 Dose: 250 mls/hr Documented by: Sodium Chloride (Normal Saline) 1,000 mls @ 125 mls/hr IV ASDIRECTED [facility] Last Admin: 10/23/19 07:22 Dose: 125 mls/hr Documented by: Magnesium Sulfate 2 gm/ Premix 50 mls @ 25 mls/hr IV Q6H [facility] Stop: 10/23/19 07:59 Last Admin: 10/23/19 05:34 Dose: 25 mls/hr Documented by: Sodium Chloride (Normal Saline) 500 mls @ 500 mls/hr IV .BOLUS ONE Stop: 10/23/19 03:59 Last Admin: 10/23/19 03:59 Dose: 500 mls/hr Documented by: Sodium Chloride (Normal Saline) 1,000 mls @ 75 mls/hr IV ASDIRECTED [facility] Albumin Human (Albumin 25%) 25 gm in 100 mls @ 25 mls/hr IV Q4H [facility] Stop: 10/25/19 21:29 Last Admin: 10/25/19 17:56 Dose: 25 mls/hr Documented by: Lactated Ringer's (Ringers, Lactated) 1,000 mls @ 60 mls/hr IV ASDIRECTED [facility] Last Admin: 10/28/19 22:25 Dose: 60 mls/hr Documented by: Albumin Human (Albumin 25%) 25 gm in 100 mls @ 25 mls/hr IV Q24H [facility] Stop: 10/29/19 12:59 Last Admin: 10/29/19 09:23 Dose: 25 mls/hr Documented by: Albumin Human (Albumin 25%) 25 gm in 100 mls @ 25 mls/hr IV Q24H [facility] Stop: 10/29/19 16:59 Last Admin: 10/29/19 13:23 Dose: 25 mls/hr Documented by: Linezolid (Zyvox) Confirm Administered Dose 300 mls @ as directed .ROUTE .STK- MED ONE Stop: 10/30/19 07:28 Albumin Human (Albumin 25%) 25 gm in 100 mls @ 25 mls/hr IV Q24H [facility] Stop: 11/01/19 12:59 Lidocaine/Epinephrine (Xylocaine 1% With Epinephrine 1:100,000) Confirm Administered Dose 50 ml .ROUTE .STK-MED ONE Stop: 10/30/19 06:25 Last Admin: 10/30/19 07:33 Dose: 7.5 ml Documented by: Linezolid (Zyvox) 600 mg IRR .STK-MED ONE Stop: 10/30/19 07:31 Last Admin: 10/30/19 07:30 Dose: 600 mg Documented by: Liraglutide (Victoza) 0.6 mg SUBCUT DAILY [facility] Last Admin: 10/26/19 10:55 Dose: 0.6 mg Documented by: Liraglutide (Victoza) 1.2 mg SUBCUT DAILY [facility] Last Admin: 10/27/19 08:50 Dose: 1.2 mg Documented by: Liraglutide (Victoza) 1.8 mg SUBCUT DAILY [facility] Last Admin: 10/28/19 09:06 Dose: 1.8 mg Documented by: Loperamide HCl (Imodium) 4 mg PO Q4H PRN PRN Reason: Diarrhea Last Admin: 10/22/19 20:51 Dose: 4 mg Documented by: Metoclopramide HCl (Reglan) 10 mg PO ONETIME ONE Stop: 10/28/19 21:32 Last Admin: 10/28/19 22:07 Dose: Not Given Documented by: Metoclopramide HCl (Reglan) 10 mg IV ONETIME [facility] Stop: 10/28/19 22:09 Last Admin: 10/28/19 22:23 Dose: 10 mg Documented by: Midazolam HCl (Versed 1 Mg/Ml) Confirm Administered Dose 2 mg .ROUTE .STK-MED ONE Stop: 10/30/19 06:53 Opium Tincture (Opium Tincture) 10 mg PO TID [facility] Opium Tincture (Opium Tincture 5 Mg/0.5ml U/D) 10 mg PO TID [facility] Last Admin: 10/26/19 09:03 Dose: 10 mg Documented by: Opium Tincture (Opium Tincture 5 Mg/0.5ml U/D) 10 mg PO ONETIME ONE Stop: 10/26/19 12:31 Last Admin: 10/26/19 13:58 Dose: 10 mg Documented by: Oxycodone HCl (Oxycodone) 5 mg PO Q4H PRN PRN Reason: Pain Last Admin: 10/25/19 11:27 Dose: 5 mg Documented by: Pantoprazole Sodium (Protonix Iv) 40 mg IVPUSH ONETIME ONE Stop: 10/22/19 17:35 Last Admin: 10/22/19 18:18 Dose: 40 mg Documented by: Pantoprazole Sodium (Protonix Iv) 40 mg IV ONETIME ONE Stop: 10/26/19 10:01 Last Admin: 10/26/19 10:55 Dose: 40 mg Documented by: Potassium Chloride (Klor-Con M20) 40 meq PO ONETIME ONE Stop: 10/23/19 08:01 Last Admin: 10/23/19 08:38 Dose: 40 meq Documented by: Propofol (Diprivan 20 Ml) Confirm Administered Dose 200 mg .ROUTE .STK-MED ONE Stop: 10/30/19 06:53 Propofol (Diprivan 20 Ml) Confirm Administered Dose 200 mg .ROUTE .STK-MED ONE Stop: 10/30/19 07:28 Psyllium Husk (Metamucil Fiber Wafer) 2 each PO BID [facility] Last Admin: 10/26/19 20:46 Dose: 2 each Documented by: Tramadol HCl (Ultram) 100 mg PO Q6H PRN PRN Reason: Pain - Exam Quality Assessment: DVT Prophylaxis General: Alert, Oriented, Cooperative, Mild Distress Lungs: Clear to Auscultation, Normal Respiratory Effort Cardiovascular: Regular Rate, Regular Rhythm, No Murmurs GI/Abdominal Exam: Soft, No Organomegaly, Tender. No: Distended, Guarding, Rigid, Rebound Extremities: Non-Tender, No Pedal Edema Sepsis Event Note - Evaluation Sepsis Screening Result: No Definite Risk - Focused Exam Vital Signs: Vital Signs Temp Temp Pulse Resp BP BP Pulse Ox 10/30/19 11:04 98.2 F 67 18 99/57 L 98 10/30/19 10:03 94/53 L 10/30/19 09:30 124/55 L 10/30/19 09:00 119/72 10/30/19 08:45 97.4 F 73 18 108/55 L 97 10/30/19 08:30 74 18 113/60 99 10/30/19 08:20 96.8 F L 74 18 130/60 99 10/30/19 08:05 97.0 F 77 16 121/65 99 10/30/19 08:00 78 15 120/59 L 97 10/30/19 07:55 80 14 121/64 100 10/30/19 07:50 79 14 118/63 100 10/30/19 07:45 96.8 F L 85 14 116/64 100 10/30/19 02:00 97.0 F 78 16 121/66 97 Date Exam was Performed: 10/30/19 Time Exam was Performed: 12:30 - Problem List Review Problem List Initiated/Reviewed/Updated: Yes - Plan Plan:: ASSESSMENT AND PLAN DIARRHEA/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 Due to and vomiting moderately improved, still fairly high ostomy output over the last 24 hours. Status post placement of James catheter earlier today by Dr. Reno. -Additional management as recommended by surgery -Scheduled Lomotil -Schedule Imodium 4 times daily -Tincture of opium 3 times daily -High-fiber diet -Encourage oral intake ACUTE KIDNEY INJURY-resolved. At high risk for recurrence without aggressive interventions discussed above. -Closely monitor urine output and renal function URINARY TRACT INFECTION-culture growing Klebsiella and she has completed adequate treatment. OPEN ABDOMINAL WOUND-healing well, no issues. -Continue current management and wound care MAINTENANCE ISSUES -DVT prophylaxis; SCDs -GI prophylaxis; continue outpatient PPI therapy -Nutrition; regular diet DISPOSITION-anticipate discharge to home after the hospital stay.
[2019-10-30] MEDS: [UNRECOGNIZED DRUG - OTHER] PO SCH ×2 (16:42→22:02)
[2019-10-30] MEDS: Melatonin 3 MG Tab PO SCH (20:22)
[2019-10-31] MEDS: Magnesium Sulfate/Water 2 GM in Premix Bag 1 BAG IV SCH ×6 (01:02→22:17)
[2019-10-31] MEDS: Lactated Ringers 1,000 ML IV SCH ×3 (01:02→20:25)
[2019-10-31] MEDS: Ondansetron 4 MG/2 ML SDV IV PRN (01:58)
[2019-10-31] MEDS: Atropine/Diphenoxylate 0.025-2.5 MG Tab PO SCH ×4 (01:58→20:21)
[2019-10-31] MEDS: traMADol 50 MG Tab PO PRN ×4 (01:58→20:21)
[2019-10-31] MEDS: tiZANidine 2 MG Tab PO PRN ×2 (05:45→08:17)
[2019-10-31] MEDS: Loperamide 2 MG Cap PO SCH ×4 (05:45→22:16)
[2019-10-31] MEDS: Acetaminophen 325 MG Tab PO PRN (05:46)
[2019-10-31] MEDS: [UNRECOGNIZED DRUG - OTHER] PO SCH ×4 (05:46→22:17)
[2019-10-31] MEDS: Metoclopramide 10 MG Tab PO PRN (05:46)
[2019-10-31] MEDS: Amylase/Lipase/Protease 12,000 Unit Cap.CR PO SCH ×3 (07:23→16:25)
[2019-10-31] MEDS: Pantoprazole 40 MG Tab.CR PO SCH ×2 (07:23→16:25)
[2019-10-31] MEDS ORDERED: Lactated Ringers 1,000 ML IV SCH (07:30)
[2019-10-31] MEDS: Psyllium Seed (With Sugar) Wafer PO SCH ×3 (08:32→20:23)
[2019-10-31] MEDS: Multivitamins with Iron Tab.Chew PO SCH (08:32)
[2019-10-31] MEDS: Lactobacillus Rhamnosus GG (Probiotic) Cap PO SCH ×2 (08:32→20:22)
[2019-10-31] MEDS: DULoxetine 30 MG Cap PO SCH (08:32)
[2019-10-31] MEDS: Magnesium Oxide 400 MG Tab PO SCH ×3 (08:32→20:23)
--- NOTE | 2019-10-31 09:41 | PN ---
DATE OF SERVICE: 10/31/2019 SUBJECTIVE: Aline had her central line put in yesterday. Her oral intake was 1750. Ostomy output was 4675. Urine output was 2425. Afebrile. Reports some nausea. REVIEW OF SYSTEMS: Remainder of review of systems negative for any pertinent positives and negatives. OBJECTIVE: GENERAL: Aline Foley is a 58-year-old female, alert and orientated. Color pale. VITAL SIGNS: TPR 97.5; 77; 18; blood pressure 120/59. HEENT: Negative. NECK: Supple. HEART: Regular rate and rhythm. LUNGS: Clear. ABDOMEN: Ostomy in place. Otherwise abdomen is soft and nontender. EXTREMITIES: Without peripheral edema. ASSESSMENT: 1. Status post James catheter placement on 10/30/2019. 2. Acute kidney injury, resolved. 3. Urinary tract infection, Klebsiella, resolved. 4. Open abdominal wound. 5. Chronic low magnesium. PLAN: 1. Discontinue continuous IV. 2. 1 L of lactated Ringer's twice daily. 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 She will do this once in the morning and once in the afternoon to run over 2 hours approximately, and will be discharged with this order. 3. To stop Victoza. 4. To replace James catheter dressing, it is coming loose on 1 edge. 5. Plan discharge in a.m. Aline Landeros PA-C /[id number]
--- NOTE | 2019-10-31 11:57 | PCM.PN ---
- General Info Date of Service: 10/31/19 Subjective Update: Ms. Foley has improved somewhat, still experiencing relatively high ostomy output. Vital signs have remained good and she is afebrile. Continues to show evidence of her hemolytic anemia although has not required transfusion during this stay. Functional Status: Reports: Ambulating, Urinating. Denies: Tolerating Diet - Review of Systems General: Reports: Weakness. Denies: Fever, Chills Pulmonary: Reports: No Symptoms Cardiovascular: Reports: No Symptoms Gastrointestinal: Reports: Abdominal Pain, Decreased Appetite, Diarrhea, Nausea. Denies: Difficulty Swallowing, Vomiting Genitourinary: Reports: No Symptoms - Patient Data Vitals - Most Recent: Last Vital Signs Temp 97.5 F 10/31/19 07:14 Pulse 77 10/31/19 07:14 Resp 18 10/31/19 07:14 BP 120/59 L 10/31/19 07:14 Pulse Ox 97 10/31/19 07:14 Weight - Most Recent: 163 lb 9.328 oz I&O - Last 24 Hours: Intake & Output 10/30/19 10/31/19 10/31/19 22:59 06:59 14:59 Intake Total 1597 2014 300 Output Total 2088 8262 9708 Balance -0739 -954 -1114 Lab Results Last 24 Hours: Laboratory Results - last 24 hr 10/31/19 10/31/19 Range/Units 04:00 04:00 WBC 2.4 L (4.5-11.0) K/uL RBC 2.46 L (3.30-5.50) M/uL Hgb 7.5 L (12.0-15.0) g/dL Hct 24.6 L (36.0-48.0) % MCV 100 H (80-98) fL MCH 31 (27-31) pg MCHC 31 L (32-36) % Plt Count 128 L (150-400) K/uL Sodium 141 (140-148) mmol/L Potassium 4.2 (3.6-5.2) mmol/L Chloride 104 (100-108) mmol/L Carbon Dioxide 28 (21-32) mmol/L Anion Gap 8.8 (5.0-14.0) mmol/L BUN 12 (7-18) mg/dL Creatinine 1.2 H (0.6-1.0) mg/dL Est Cr Clr Drug Dosing 48.96 mL/min Estimated GFR (MDRD) 46 L (>60) Glucose 86 (74-106) mg/dL Calcium 8.5 (8.5-10.1) mg/dL Phosphorus 3.5 (2.5-4.9) mg/dL Magnesium 4.3 H D (1.8-2.4) mg/dL Total Bilirubin 0.7 (0.2-1.0) mg/dL AST 13 L (15-37) U/L ALT 19 (12-78) U/L Alkaline Phosphatase 75 (46-116) U/L Total Protein 7.3 (6.4-8.2) g/dL Albumin 4.6 (3.4-5.0) g/dL Globulin 2.7 (2.3-3.5) g/dL Albumin/Globulin Ratio 1.7 (1.2-2.2) Med Orders - Current: Current Medications Acetaminophen (Tylenol) 650 mg PO Q4H PRN PRN Reason: Pain (Mild 1-3)/fever Last Admin: 10/31/19 05:46 Dose: 650 mg Documented by: Lipase/Protease/Amylase (Gus Greer 12,000 Units) 2 cap PO TIDMEALS [facility] Last Admin: 10/31/19 11:37 Dose: 2 cap Documented by: Diphenoxylate HCl/Atropine (Lomotil 0.025-2.5 Mg) 2 tab PO Q6H [facility] Last Admin: 10/31/19 07:23 Dose: 2 tab Documented by: Duloxetine HCl (Cymbalta) 60 mg PO DAILY [facility] Last Admin: 10/31/19 08:32 Dose: 60 mg Documented by: Heparin Sodium (Porcine) (Heparin Lock Flush 100 Units/Ml) 500 units FLUSH ASDIRECTED PRN PRN Reason: Other Last Admin: 10/31/19 04:34 Dose: 500 units Documented by: Sodium Chloride (Normal Saline) 1,000 mls @ 25 mls/hr IV ASDIRECTED [facility] Magnesium Sulfate 2 gm/ Premix 50 mls @ 25 mls/hr IV Q4H [facility] Last Admin: 10/31/19 09:50 Dose: 25 mls/hr Documented by: Albumin Human (Albumin 25%) 25 gm in 100 mls @ 25 mls/hr IV Q24H [facility] Stop: 11/01/19 12:59 Last Admin: 10/31/19 08:21 Dose: 25 mls/hr Documented by: Albumin Human (Albumin 25%) 25 gm in 100 mls @ 25 mls/hr IV Q24H [facility] Stop: 11/01/19 16:59 Last Admin: 10/30/19 14:01 Dose: 25 mls/hr Documented by: Lactated Ringer's (Ringers, Lactated) 1,000 mls @ 500 mls/hr IV BID [facility] Last Admin: 10/31/19 08:19 Dose: 500 mls/hr Documented by: Imipramine HCl (Imipramine Hcl) 200 mg PO BEDTIME [facility] Last Admin: 10/30/19 20:21 Dose: 200 mg Documented by: Lactobacillus Rhamnosus (Culturelle) 1 cap PO BID [facility] Last Admin: 10/31/19 08:32 Dose: 1 cap Documented by: Loperamide HCl (Imodium) 4 mg PO QID [facility] Last Admin: 10/31/19 09:49 Dose: 4 mg Documented by: Lorazepam (Ativan) 0.5 mg IVPUSH Q4H PRN PRN Reason: Nausea Last Admin: 10/30/19 05:25 Dose: 0.5 mg Documented by: Magnesium Oxide (Magnesium Oxide) 400 mg PO TID [facility] Last Admin: 10/31/19 08:32 Dose: 400 mg Documented by: Melatonin (Melatonin) 9 mg PO BEDTIME [facility] Last Admin: 10/30/19 20:22 Dose: 9 mg Documented by: Metoclopramide HCl (Reglan) 10 mg PO Q6H PRN PRN Reason: Nausea/Vomiting Last Admin: 10/31/19 05:46 Dose: 10 mg Documented by: Multivitamins/Iron (Child Chew Iron) 1 tab PO DAILY [facility] Last Admin: 10/31/19 08:32 Dose: 1 tab Documented by: Olanzapine (Zyprexa) 5 mg PO Q12H PRN PRN Reason: Anxiety Last Admin: 10/22/19 20:53 Dose: 5 mg Documented by: Ondansetron HCl (Zofran) 4 mg IV Q4H PRN PRN Reason: Nausea/Vomiting Last Admin: 10/31/19 01:58 Dose: 4 mg Documented by: Opium Tincture (Opium Tincture 5 Mg/0.5ml U/D) 10 mg PO QID [facility] Last Admin: 10/31/19 11:10 Dose: Not Given Documented by: Pantoprazole Sodium (Protonix) 40 mg PO BIDAC [facility] Last Admin: 10/31/19 07:23 Dose: 40 mg Documented by: Psyllium Husk (Metamucil Fiber Wafer) 2 each PO TID [facility] Last Admin: 10/31/19 08:32 Dose: 2 each Documented by: Sodium Chloride (Saline Flush) 10 ml FLUSH ASDIRECTED PRN PRN Reason: Keep Vein Open Tizanidine HCl (Zanaflex) 4 mg PO BID PRN PRN Reason: Other Last Admin: 10/31/19 08:17 Dose: 4 mg Documented by: Tramadol HCl (Ultram) 100 mg PO Q6H PRN PRN Reason: Pain Last Admin: 10/31/19 08:17 Dose: 100 mg Documented by: Discontinued Medications Bupivacaine HCl (Marcaine 0.5%) Confirm Administered Dose 50 ml .ROUTE .STK-MED ONE Stop: 10/30/19 06:25 Last Admin: 10/30/19 07:33 Dose: 7.5 ml Documented by: Cephalexin (Keflex) 500 mg PO BID [facility] Last Admin: 10/26/19 08:49 Dose: 500 mg Documented by: Clonidine HCl (Catapres) 0.1 mg PO BID [facility] Last Admin: 10/27/19 11:41 Dose: Not Given Documented by: Enoxaparin Sodium (Lovenox) 30 mg SUBCUT DAILY [facility] Last Admin: 10/22/19 20:52 Dose: 30 mg Documented by: Enoxaparin Sodium (Lovenox) 30 mg SUBCUT Q24H [facility] Fentanyl (Sublimaze) Confirm Administered Dose 100 mcg .ROUTE .STK-MED ONE Stop: 10/30/19 06:53 Heparin Sodium (Porcine) (Heparin Lock Flush 100 Units/Ml) Confirm Administered Dose 1,500 units .ROUTE .STK-MED ONE Stop: 10/30/19 06:25 Last Admin: 10/30/19 07:28 Dose: 1,500 units Documented by: Hydromorphone HCl (Dilaudid) 0.5 mg IVPUSH ONETIME ONE Stop: 10/22/19 18:46 Last Admin: 10/22/19 18:51 Dose: 0.5 mg Documented by: Sodium Chloride (Normal Saline) 1,000 mls @ 999 mls/hr IV ASDIRECTED [facility] Last Admin: 10/22/19 17:56 Dose: 999 mls/hr Documented by: Magnesium Sulfate 2 gm/ Premix 50 mls @ 12.5 mls/hr IV ONETIME ONE Stop: 10/22/19 21:25 Last Admin: 10/22/19 18:18 Dose: 12.5 mls/hr Documented by: Ceftriaxone Sodium 1 gm/ (Sodium Chloride) 50 mls @ 100 mls/hr IV Q24H [facility] Last Admin: 10/23/19 20:48 Dose: 100 mls/hr Documented by: Sodium Chloride (Normal Saline) 1,000 mls @ 250 mls/hr IV ASDIRECTED [facility] Stop: 10/23/19 01:26 Last Admin: 10/22/19 20:54 Dose: 250 mls/hr Documented by: Sodium Chloride (Normal Saline) 1,000 mls @ 125 mls/hr IV ASDIRECTED [facility] Last Admin: 10/23/19 07:22 Dose: 125 mls/hr Documented by: Magnesium Sulfate 2 gm/ Premix 50 mls @ 25 mls/hr IV Q6H [facility] Stop: 10/23/19 07:59 Last Admin: 10/23/19 05:34 Dose: 25 mls/hr Documented by: Sodium Chloride (Normal Saline) 500 mls @ 500 mls/hr IV .BOLUS ONE Stop: 10/23/19 03:59 Last Admin: 10/23/19 03:59 Dose: 500 mls/hr Documented by: Sodium Chloride (Normal Saline) 1,000 mls @ 75 mls/hr IV ASDIRECTED [facility] Albumin Human (Albumin 25%) 25 gm in 100 mls @ 25 mls/hr IV Q4H [facility] Stop: 10/25/19 21:29 Last Admin: 10/25/19 17:56 Dose: 25 mls/hr Documented by: Lactated Ringer's (Ringers, Lactated) 1,000 mls @ 60 mls/hr IV ASDIRECTED [facility] Last Admin: 10/28/19 22:25 Dose: 60 mls/hr Documented by: Albumin Human (Albumin 25%) 25 gm in 100 mls @ 25 mls/hr IV Q24H [facility] Stop: 10/29/19 12:59 Last Admin: 10/29/19 09:23 Dose: 25 mls/hr Documented by: Albumin Human (Albumin 25%) 25 gm in 100 mls @ 25 mls/hr IV Q24H [facility] Stop: 10/29/19 16:59 Last Admin: 10/29/19 13:23 Dose: 25 mls/hr Documented by: Lactated Ringer's (Ringers, Lactated) 1,000 mls @ 125 mls/hr IV ASDIRECTED [facility] Last Admin: 10/31/19 01:02 Dose: 125 mls/hr Documented by: Linezolid (Zyvox) Confirm Administered Dose 300 mls @ as directed .ROUTE .STK- MED ONE Stop: 10/30/19 07:28 Albumin Human (Albumin 25%) 25 gm in 100 mls @ 25 mls/hr IV Q24H [facility] Stop: 11/01/19 12:59 Lidocaine/Epinephrine (Xylocaine 1% With Epinephrine 1:100,000) Confirm Administered Dose 50 ml .ROUTE .STK-MED ONE Stop: 10/30/19 06:25 Last Admin: 10/30/19 07:33 Dose: 7.5 ml Documented by: Linezolid (Zyvox) 600 mg IRR .STK-MED ONE Stop: 10/30/19 07:31 Last Admin: 10/30/19 07:30 Dose: 600 mg Documented by: Liraglutide (Victoza) 0.6 mg SUBCUT DAILY [facility] Last Admin: 10/26/19 10:55 Dose: 0.6 mg Documented by: Liraglutide (Victoza) 1.2 mg SUBCUT DAILY [facility] Last Admin: 10/27/19 08:50 Dose: 1.2 mg Documented by: Liraglutide (Victoza) 1.8 mg SUBCUT DAILY [facility] Last Admin: 10/28/19 09:06 Dose: 1.8 mg Documented by: Liraglutide (Victoza) 1.8 mg SUBCUT DAILY [facility] Last Admin: 10/30/19 08:39 Dose: 1.8 mg Documented by: Loperamide HCl (Imodium) 4 mg PO Q4H PRN PRN Reason: Diarrhea Last Admin: 10/22/19 20:51 Dose: 4 mg Documented by: Metoclopramide HCl (Reglan) 10 mg PO ONETIME ONE Stop: 10/28/19 21:32 Last Admin: 10/28/19 22:07 Dose: Not Given Documented by: Metoclopramide HCl (Reglan) 10 mg IV ONETIME [facility] Stop: 10/28/19 22:09 Last Admin: 10/28/19 22:23 Dose: 10 mg Documented by: Midazolam HCl (Versed 1 Mg/Ml) Confirm Administered Dose 2 mg .ROUTE .STK-MED ONE Stop: 10/30/19 06:53 Opium Tincture (Opium Tincture) 10 mg PO TID [facility] Opium Tincture (Opium Tincture 5 Mg/0.5ml U/D) 10 mg PO TID [facility] Last Admin: 10/26/19 09:03 Dose: 10 mg Documented by: Opium Tincture (Opium Tincture 5 Mg/0.5ml U/D) 10 mg PO ONETIME ONE Stop: 10/26/19 12:31 Last Admin: 10/26/19 13:58 Dose: 10 mg Documented by: Oxycodone HCl (Oxycodone) 5 mg PO Q4H PRN PRN Reason: Pain Last Admin: 10/25/19 11:27 Dose: 5 mg Documented by: Pantoprazole Sodium (Protonix Iv) 40 mg IVPUSH ONETIME ONE Stop: 10/22/19 17:35 Last Admin: 10/22/19 18:18 Dose: 40 mg Documented by: Pantoprazole Sodium (Protonix Iv) 40 mg IV ONETIME ONE Stop: 10/26/19 10:01 Last Admin: 10/26/19 10:55 Dose: 40 mg Documented by: Potassium Chloride (Klor-Con M20) 40 meq PO ONETIME ONE Stop: 10/23/19 08:01 Last Admin: 10/23/19 08:38 Dose: 40 meq Documented by: Propofol (Diprivan 20 Ml) Confirm Administered Dose 200 mg .ROUTE .STK-MED ONE Stop: 10/30/19 06:53 Propofol (Diprivan 20 Ml) Confirm Administered Dose 200 mg .ROUTE .STK-MED ONE Stop: 10/30/19 07:28 Psyllium Husk (Metamucil Fiber Wafer) 2 each PO BID [facility] Last Admin: 07/18/20 20:46 Dose: 2 each Documented by: Tramadol HCl (Ultram) 100 mg PO Q6H PRN PRN Reason: Pain - Exam Quality Assessment: DVT Prophylaxis General: Alert, Oriented, Cooperative, Mild Distress Lungs: Clear to Auscultation, Normal Respiratory Effort Cardiovascular: Regular Rate, Regular Rhythm, No Murmurs GI/Abdominal Exam: Soft, No Organomegaly, Tender. 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 Due to and vomiting moderately improved, still fairly high ostomy output over the last 24 hours. Status post placement of James catheter by Dr. Reno. -Additional management as recommended by surgery -Scheduled Lomotil -Schedule Imodium 4 times daily -Tincture of opium 3 times daily -High-fiber diet -Encourage oral intake HEMOLYTIC ANEMIA-associated with pancytopenia. Hemoglobin low but stable and has not yet required transfusion -Reassess CBC in a.m. ACUTE KIDNEY INJURY-resolved. At high risk for recurrence without aggressive interventions discussed above. -Closely monitor urine output and renal function URINARY TRACT INFECTION-culture growing Klebsiella and she has completed adequate treatment. OPEN ABDOMINAL WOUND-healing well, no issues. -Continue current management and wound care MAINTENANCE ISSUES -DVT prophylaxis; SCDs -GI prophylaxis; continue outpatient PPI therapy -Nutrition; regular diet DISPOSITION-anticipate discharge to home after the hospital stay.
[2019-10-31] MEDS: Melatonin 3 MG Tab PO SCH (20:23)
[2019-11-01] MEDS: tiZANidine 2 MG Tab PO PRN (00:25)
[2019-11-01] MEDS: Magnesium Sulfate/Water 2 GM in Premix Bag 1 BAG IV SCH ×4 (02:24→13:41)
[2019-11-01] MEDS: Atropine/Diphenoxylate 0.025-2.5 MG Tab PO SCH ×3 (02:24→13:45)
[2019-11-01] MEDS: traMADol 50 MG Tab PO PRN ×2 (03:46→13:38)
[2019-11-01] MEDS: [UNRECOGNIZED DRUG - OTHER] PO SCH ×3 (05:36→15:45)
[2019-11-01] MEDS: Loperamide 2 MG Cap PO SCH ×3 (05:41→15:20)
[2019-11-01] MEDS: Amylase/Lipase/Protease 12,000 Unit Cap.CR PO SCH ×3 (07:44→16:17)
[2019-11-01] MEDS: Pantoprazole 40 MG Tab.CR PO SCH ×2 (07:44→16:17)
[2019-11-01] MEDS: Lactated Ringers 1,000 ML IV SCH ×2 (08:41→15:21)
[2019-11-01] MEDS: Lactobacillus Rhamnosus GG (Probiotic) Cap PO SCH (08:41)
[2019-11-01] MEDS: Multivitamins with Iron Tab.Chew PO SCH (08:41)
[2019-11-01] MEDS: DULoxetine 30 MG Cap PO SCH (08:42)
[2019-11-01] MEDS: Magnesium Oxide 400 MG Tab PO SCH ×2 (08:42→13:43)
[2019-11-01] MEDS: Psyllium Seed (With Sugar) Wafer PO SCH ×2 (08:42→13:43)
[2019-11-01] MEDS: Ondansetron 4 MG/2 ML SDV IV PRN (10:03)
[2019-11-01] MEDS: OLANZapine 5 MG Tab PO PRN (13:39)
--- NOTE | 2019-11-02 10:50 | DISCH ---
ADMISSION DIAGNOSES: Acute kidney injury. Urinary tract infection, Klebsiella, resolved. Dehydration, chronic low magnesium, high ileostomy output, open abdominal wound, anxiety, multiple blood transfusions. DISCHARGE DIAGNOSES: James catheter placement, 10/30/2019, surgeon, Shamar Reno MD. Persistent high ileostomy output. Chronic low magnesium, open abdominal incision, acute injury to kidney resolved and acute urinary tract infection resolved. HISTORY: Aline Foley is a 58-year-old female who presented to the emergency room on 10/22/2019 with progressive weakness, dehydration, acute kidney injury secondary to high output of her ileostomy. She was admitted to the hospital. HOSPITAL COURSE: She was given IV fluids, medications to help with her high ileostomy output. She was tried on Victoza which caused nausea and vomiting, so this was discontinued, and she also was on tincture of opium for diarrhea, but this was discontinued during the hospitalization due to nausea. Medications that she took at home were continued; Lomotil, probiotics, Creon, Imodium. Metamucil Fiber Wafers were added. Aline was taught during the hospitalization to administer through her James catheter 1 L of lactated Ringer's twice a day. Aline was taught how to give herself the IV liquids. These were ordered through [facility] along with saline flushes and heparin flushes. She was able to be discharged to home on 11/01/2019. REVIEW OF SYSTEMS: CONSTITUTIONAL: Denies any fever, chills, night sweats, or fatigue. HEENT: Negative for headache, dizziness, loss of coordination. NECK: Negative. HEART: No chest pain, palpitations. LUNGS: No shortness of breath or cough. ABDOMEN: Ileostomy output remains to be high. No nausea and no abdominal pain. EXTREMITIES: Negative. SKIN: Without rash. NEUROLOGIC: Negative as stated above. PSYCHIATRIC: Some depression. Remainder of review of systems negative for any pertinent positives and negatives. OBJECTIVE: GENERAL: Aline Foley is a 58-year-old female. VITAL SIGNS: Height is 5 feet 6.93 inches. Weight is 163 pounds. TPR: 96.7, 73, 18. Blood pressure 145/64. HEENT: Negative. NECK: Supple. HEART: Regular rate and rhythm. LUNGS: Clear. ABDOMEN: Dressings dry and intact. Ileostomy bag is intact. EXTREMITIES: Without peripheral edema. I and O in the past 24 hours: Oral intake 3250. Ileostomy output is 4050. Urine output is 2075. LABORATORY DATA: Labs prior to discharge, white count 2.6, RBC is 2.34, hemoglobin 7.3, hematocrit 23.4, and platelets of 118. Potassium 4.2, magnesium 4.3, but she was receiving magnesium. DISPOSITION: Discharged to home. CONDITION: Stable and improving. FOLLOWUP APPOINTMENT: With Shamar Rowdy on 11/06/2019. Time of appointment will be made through scheduling. She is to arrive 30 minutes before scheduled time for CBC, CMP, mag, and phos. DIET: Regular diet as tolerated along with her electrolyte drinks per Dietary. Drink 8 to 10 glasses of water a day with electrolyte solution. HOME MEDICATIONS: New medication is metamucil fiber wafer 2, three times a day, #180 with 11 refills. A prescription for lactated Ringer's 1 L b.i.d. for 1 month and 11 refills filled out. Heparin flushes refilled for 1 year and saline flushes refilled for 1 year. She is to resume her home medication with the exception of discontinuing the tincture of opium. DISCHARGE INSTRUCTIONS: Activity as tolerated. May shower. Continue to change open abdominal wound dressings twice a day.
--- NOTE | 2019-11-04 09:21 | OR ---
DATE OF PROCEDURE: 10/30/2019 SURGEON: Shamar Reno MD PREOPERATIVE DIAGNOSIS: Indication for long-term central venous access. POSTOPERATIVE DIAGNOSIS: Indication for long-term central venous access. OPERATIVE PROCEDURE: Placement of double-lumen James catheter via left subclavian vein approach. ANESTHESIA: Local plus IV sedation. INDICATION FOR PROCEDURE: This is a 58-year-old who remains a difficult case in terms of short bowel syndrome with an end-jejunostomy. Her ileostomy output remained high despite multiple approaches to try to slow that down. Nutritionally, the patient appears to be holding her own but has difficulty maintaining adequate liquid intake. To facilitate this, we will place a James catheter through which the patient can be provided additional IV fluid at home. Potential risks of the procedure including bleeding, infection, injury to the neurovascular structure of the lungs during the procedure were reviewed along with possibility of infection or occlusion of the James catheter were reviewed, and the patient wishes to proceed. DETAILS OF PROCEDURE: The patient was taken to the operating room and placed in a supine position. After IV sedation was administered, the upper chest and neck areas were prepped and draped. The left subclavian area was anesthetized with 1% lidocaine, the left subclavian vein cannulated, a guidewire passed over, and at that point, some additional local anesthetic was placed in the infraclavicular area. A small stab wound roughly 4 fingerbreadths below the original puncture site was then made and the James catheter was tunneled between those 2 incisions, and over and peel-away catheter was placed without difficulty. Good in and outflow was noted through the James catheter which was then flushed with heparinized saline. The catheter was sutured at the same level with 3-0 nylon stitch and original puncture site closed with subdermal stitch of 4-0 Vicryl stitch. The catheter had been cut such that the tip would lie in the upper right atrium, and fluoroscopy confirmed adequate location of the catheter. The patient was taken to the recovery room in satisfactory condition. Shamar Reno MD /[id number]
== END 2019-11-01 17:25 | disposition home or self-care (01) | DRG 683 ==
LOC: JP.ED 15:52 → JP.MS 17:35
PROVIDERS: ADMIT Hospitalist; ATTEND Internal Medicine
PROC: 30233N1 Transfusion of Nonautologous Red Blood Cells into Peripheral Vein, Percutaneous Approach (ICD-10-PCS; 2019-10-27)
PROC: 05H633Z Insertion of Infusion Device into Left Subclavian Vein, Percutaneous Approach (ICD-10-PCS; principal; 2019-10-30)
DX: N17.9 Acute kidney failure, unspecified (principal); K91.2 Postsurgical malabsorption, not elsewhere classified; N39.0 Urinary tract infection, site not specified; D58.9 Hereditary hemolytic anemia, unspecified; D61.818 Other pancytopenia; E83.42 Hypomagnesemia; N18.9 Chronic kidney disease, unspecified; R19.7 Diarrhea, unspecified; H54.7 Unspecified visual loss; E86.0 Dehydration; G43.909 Migraine, unspecified, not intractable, without status migrainosus; E86.9 Volume depletion, unspecified; Z20.828 Contact with and (suspected) exposure to other viral communicable diseases; F41.9 Anxiety disorder, unspecified; E53.8 Deficiency of other specified B group vitamins; B96.1 Klebsiella pneumoniae [K. pneumoniae] as the cause of diseases classified elsewhere; S31.109D Unspecified open wound of abdominal wall, unspecified quadrant without penetration into peritoneal cavity, subsequent encounter; Z93.2 Ileostomy status; Z98.890 Other specified postprocedural states; Z79.899 Other long term (current) drug therapy; Z90.89 Acquired absence of other organs; Z90.710 Acquired absence of both cervix and uterus
CPT/HCPCS: 36415; 80048; 80053; 81001; 83735; 84100; 85025; 85027; 86850; 86870; 86900; 86901; 86902; 86920; 86922; 87046; 87086; 87088; 87177; 87186; 87209; 87493; 87899; 99284; 99285; A9270-GY; C9113; J0696; J1170; J1642; J1650; J2020; J2060; J2250; J2405; J2704; J2765; J3010; J3475; J3490; J7030; J7040; J7050; J7120; P9047; U0002

== ENCOUNTER 2019-11-08 08:02 | Day surgery (SDC) | payer MEDICARE, OTHER ==
[~2019-11-08 08:02] MED LIST: Bupivacaine 0.5% 50 ML MDV ONE; Lidocaine 1% with EPINEPHrine 1:100,000 50 ML MDV ONE; Midazolam 1 MG/ML 2 ML SDV ONE; Propofol 200 MG/20 ML SDV ONE; fentaNYL 100 MCG/2 ML SDV ONE
[2019-11-08] MEDS ORDERED: Magnesium Sulfate/Water 2 GM in Premix Bag 1 BAG IV ONE ×2 (09:00→13:00)
[2019-11-08] MEDS ORDERED: MVI, Adult with Vitamin K 10 ML, Chromium/Copper/Mang/Selen/Zn 1 ML in Lactated Ringers... IV ONE ×3 (09:00)
[2019-11-08] MEDS ORDERED: Linezolid 600 MG in Premix Bag 1 BAG IV ONE (10:00)
[2019-11-08] MEDS ORDERED: Meropenem 500 MG SDV ONE (10:43)
[2019-11-08] MEDS ORDERED: Propofol 200 MG/20 ML SDV ONE ×2 (11:26→11:35)
[2019-11-08] MEDS ORDERED: Lactated Ringers 1,000 ML IV ONE (12:15)
--- NOTE | 2019-11-08 13:40 | CR ---
Fluoro Up To 1Hr CLINICAL HISTORY: James insertion FINDINGS: Single fluoroscopy image is seen of the upper mediastinum showing a central venous catheter from the left subclavian approach. Tip is in the brachycephalic superior vena caval junction Fluoroscopy time was 266 seconds
--- NOTE | 2019-11-12 15:07 | OR ---
DATE OF PROCEDURE: 11/08/2019 SURGEON: Shamar Reno MD PREOPERATIVE DIAGNOSIS: Contaminated James catheter. POSTOPERATIVE DIAGNOSIS: Contaminated James catheter. OPERATIVE PROCEDURES: 1. Removal of previous James catheter (94387). 2. Placement of new James catheter ([id number]). ANESTHESIA: Local plus IV sedation. INDICATION FOR PROCEDURE: A 58-year-old suffering with short bowel syndrome, was receiving supplemental IV fluids at home. She went home with James catheter, and despite training of her and her regarding management, the caps where the James catheter was normally closed off, were both open to the air when she was seen in the clinic yesterday, and given this, it was felt likely that the James catheter would be contaminated and its removal and replacement would be warranted. Potential risks of the procedure including bleeding, infection, injury to the underlying lung or vasculature were reviewed, and the patient wishes to proceed. DETAILS OF PROCEDURE: The patient was taken to the operating room, and after IV sedation was administered, the previous James catheter in the left infraclavicular area was removed. This needed relatively minimal dissection at this point as it had been recently placed of scar formation around the fibrous cuff had developed. This was then held with some pressure briefly to avoid any bleeding. Attention was then taken to the right infraclavicular area. The patient had a port in that location for extended period, and after being anesthetized, the subclavian vein at no point could be cannulated. I struck maybe thrombosed relatively longstanding port in that area that had been previously present. Attention was then taken to the left side which was further anesthetized with 1% lidocaine mixed with Marcaine somewhat lateral to the more recent James catheter site. A puncture was made and the subclavian vein cannulated. A guidewire was placed there and into the superior vena cava and right atrial junction 4 fingerbreadths below that puncture site. Then, a stab wound was made and the James catheter was then tunneled between the 2 small incisions and cut such that the tip would lie in the area of the right atrial and subclavian vein junction. Over the introducer and peel- away catheter, the James catheter was then deployed under fluoroscopic control without difficulty. Good in and outflow was noted through the port which was flushed with heparinized saline and the original skin puncture site closed with a subdermal layer of 4-0 Vicryl stitch and Steri-Strips and the catheter at the skin exit site approximated with a 2- 0 nylon stitch. The patient was taken to the recovery room in satisfactory condition. There were no evident complications. Shamar Reno MD /[id number]
== END 2019-11-08 14:37 | disposition home or self-care (01) ==
LOC: JP.SDS 08:02
PROVIDERS: ATTEND Surgery
DX: T82.594A Other mechanical complication of infusion catheter, initial encounter (principal); K91.2 Postsurgical malabsorption, not elsewhere classified; E66.9 Obesity, unspecified; Z11.59 Encounter for screening for other viral diseases; Z68.25 Body mass index [BMI] 25.0-25.9, adult
CPT/HCPCS: 36558; 36589; 76000; J1642; J2020; J2250; J2704; J3010; J3475; J3490; J7120; U0002; J2185

== ENCOUNTER 2019-12-13 07:52 | Inpatient (IN) | payer MEDICARE, OTHER ==
[2019-12-13] MEDS ORDERED: HYDROmorphone 0.5 MG/0.5 ML Syringe IVPUSH ONE ×2 (08:23→09:55)
--- NOTE | 2019-12-13 08:26 | EDM.PDOC ---
ED HPI GENERAL MEDICAL PROBLEM - General Chief Complaint: General Stated Complaint: abd. pain Time Seen by Provider: 12/13/19 08:10 Source of Information: Reports: Patient, Family History Limitations: Reports: No Limitations - History of Present Illness INITIAL COMMENTS - FREE TEXT/NARRATIVE: 59-year-old female with an extensive history of abdominal surgeries who has had 1 week of persistent diarrhea and abdominal pain not responding to tramadol. No fevers or chills. Denies nausea or vomiting. Also increased low back pain, no urinary symptoms. She presents very similar to when I saw her earlier this year with significant abdominal pain but the work-up was negative. She takes 6 or 8 tramadol daily, did not take any this morning because it is "not working. Onset: Unknown/Unsure Associated Symptoms: Reports: Malaise, Weakness. Denies: Confusion, Chest Pain, Cough, Fever/Chills, Shortness of Breath Lower Abdomen Pain Score (Numeric/FACES): 8 - Related Data Allergies Allergy/AdvReac Type Severity Reaction Status Date / Time No Known Allergies Allergy Verified 12/13/19 08:05 Home Meds: Home Meds Acetaminophen [Acetaminophen Extra Strength] 1,000 mg PO Q4HR PRN 06/17/19 [History] Cyanocobalamin (Vitamin B-12) [Cyanocobalamin Injection] 1 ml IM ASDIRECTED 06/17/19 [History] Imipramine HCl 200 mg PO BEDTIME 06/17/19 [History] Nystatin [Nystatin Oint] 1 dose TOP BID PRN 06/17/19 [History] Ondansetron [Zofran ODT] 4 mg PO Q4HR PRN 06/17/19 [History] Pedi Multivit No.25/Folic Acid [Flintstones Multivit Chew Tab] 1 tab PO DAILY 06/17/19 [History] SUMAtriptan [Imitrex] 50 mg PO BTNUNITS PRN 06/17/19 [History] tiZANidine [Zanaflex] 4 mg PO BID PRN 06/17/19 [History] Amylase/Lipase/Protease [Gus BEE 12,000 Units] 2 cap PO TIDMEALS #180 cap.cr 09/16/19 [Rx] DULoxetine [Cymbalta] 60 mg PO DAILY cap 09/16/19 [Rx] Lactobacillus Rhamnosus GG [Culturelle] 1 cap PO BID #60 cap 09/16/19 [Rx] Loperamide [Imodium] 4 mg PO Q4H #100 cap 09/16/19 [Rx] Melatonin 9 mg PO BEDTIME tablet 09/16/19 [Rx] traMADol [Ultram] 100 mg PO Q4H PRN tablet 09/16/19 [Rx] Atropine/Diphenoxylate [Diphenoxylate-Atropine] 2 tab PO Q6H 10/22/19 [History] Magnesium Oxide 400 mg PO TID 10/22/19 [History] Potassium Chloride 20 meq PO BID 10/22/19 [History] Psyllium Seed (With Sugar) [Metamucil Fiber Wafer] 2 each PO TID #180 wafer 11/01/19 [Rx] Past Medical History HEENT History: Reports: Impaired Vision Cardiovascular History: Reports: Arrhythmia Gastrointestinal History: Reports: Bowel Obstruction, Chronic Diarrhea, Other (See Below) Other Gastrointestinal History: hernia, multiple bowel surgerys, short gut syndrome Genitourinary History: Reports: Renal Calculus [employer] History: Reports: Neurological History: Reports: Migraines Psychiatric History: Reports: Anxiety Insulin Pump Model and Junior Php Developer: no Hematologic History: Reports: Anemia, B12 Deficiency, Blood Transfusion(s), Folic Acid, Iron Deficiency - Infectious Disease History Infectious Disease History: Reports: Chicken Pox - Past Surgical History Head Surgeries/Procedures: Reports: None HEENT Surgical History: Reports: Adenoidectomy, Tonsillectomy Cardiovascular Surgical History: Reports: Cardiac Ablation GI Surgical History: Reports: Appendectomy, Colonoscopy, EGD, Other (See Below) Other GI Surgeries/Procedures: hernia, has ileostomy. ileostomy Female Surgical History: Reports: Hysterectomy Neurological Surgical History: Reports: None Dermatological Surgical History: Reports: None Social & Family History - Family History Family Medical History: Noncontributory - Tobacco Use Smoking Status *Q: Never Smoker - Caffeine Use Caffeine Use: Reports: Soda - Recreational Drug Use Recreational Drug Use: No ED ROS GENERAL - Review of Systems Review Of Systems: See Below Constitutional: Reports: Malaise. Denies: Fever, Chills HEENT: Reports: No Symptoms Respiratory: Denies: Shortness of Breath Cardiovascular: Denies: Chest Pain, Palpitations GI/Abdominal: Reports: Abdominal Pain, Diarrhea : Reports: No Symptoms. Denies: Frequency Skin: Reports: No Symptoms Neurological: Reports: Dizziness, Weakness Psychiatric: Reports: Anxiety ED EXAM, GENERAL - Physical Exam Exam: See Below Exam Limited By: No Limitations General Appearance: Alert, No Apparent Distress (Looks uncomfortable but not distressed) Eye Exam: Bilateral Eye: Normal Inspection Head: Atraumatic Respiratory/Chest: No Respiratory Distress, Lungs Clear Cardiovascular: Regular Rate, Rhythm Extremities: Normal Inspection Neurological: Alert, No Motor/Sensory Deficits Psychiatric: Anxious, Tearful Skin Exam: Warm, Dry Course - Vital Signs Last Recorded V/S: Last Vital Signs Temp 97.6 F 12/13/19 08:05 Pulse 94 12/13/19 10:56 Resp 18 12/13/19 08:05 BP 164/86 H 12/13/19 10:56 Pulse Ox 100 12/13/19 10:56 - Orders/Labs/Meds Orders: Active Orders 24 hr Category Date Time Status Magnesium Sulfate/Water [Magnesium Sulfate in Water Med 12/13/19 11:30 Active Premix] 2 gm Premix Bag 1 bag IV Q1H Sodium Chloride 0.9% [Normal Saline] 1,000 ml Med 12/13/19 09:15 Active IV ASDIRECTED Sodium Chloride 0.9% [Normal Saline] 1,000 ml Med 12/13/19 11:30 Active IV ASDIRECTED Sodium Chloride 0.9% [Normal Saline] 77 ml Med 12/13/19 10:00 Active IV ASDIRECTED Medication Orders Sodium Chloride (Normal Saline) 1,000 mls @ 1,000 mls/hr IV ASDIRECTED [facility] Last Admin: 12/13/19 11:25 Dose: 1,000 mls/hr Documented by: Infusion: 12/13/19 10:20 Dose: 1,000 mls/hr Documented by: Admin: 12/13/19 09:20 Dose: 1,000 mls/hr Documented by: NEENA Sodium Chloride (Normal Saline) 77 mls @ 3.5 mls/sec IV ASDIRECTED CASSIE Last Admin: 12/13/19 10:11 Dose: 3.5 mls/sec Documented by: TELLY Magnesium Sulfate 2 gm/ Premix 50 mls @ 50 mls/hr IV Q1H CASSIE Stop: 12/13/19 13:29 Last Admin: 12/13/19 12:43 Dose: 50 mls/hr Documented by: Infusion: 12/13/19 12:25 Dose: 50 mls/hr Documented by: Admin: 12/13/19 11:25 Dose: 50 mls/hr Documented by: NEENA Sodium Chloride (Normal Saline) 1,000 mls @ 1,000 mls/hr IV ASDIRECTED [facility] Labs: Laboratory Tests 12/13/19 12/13/19 12/13/19 Range/Units 08:31 08:39 08:39 WBC 4.3 L (4.5-11.0) K/uL RBC 3.69 (3.30-5.50) M/uL Hgb 11.8 L D (12.0-15.0) g/dL Hct 35.2 L (36.0-48.0) % MCV 95 (80-98) fL MCH 32 H (27-31) pg MCHC 34 (32-36) % Plt Count 111 L (150-400) K/uL Neut % (Auto) 72 H (36-66) % Lymph % (Auto) 23 L (24-44) % Brooks % (Auto) 5 (2-6) % Eos % (Auto) 0 L (2-4) % Baso % (Auto) 0 (0-1) % Sodium 138 L (140-148) mmol/L Potassium 4.1 (3.6-5.2) mmol/L Chloride 102 (100-108) mmol/L Carbon Dioxide 23 (21-32) mmol/L Anion Gap 17.1 H (5.0-14.0) mmol/L BUN 12 (7-18) mg/dL Creatinine 1.3 H (0.6-1.0) mg/dL Est Cr Clr Drug Dosing 45.59 mL/min Estimated GFR (MDRD) 42 L (>60) Glucose 100 (74-106) mg/dL Lactic Acid (0.4-2.0) mmol/L Calcium 9.3 (8.5-10.1) mg/dL Magnesium 1.2 L (1.8-2.4) mg/dL Total Bilirubin 0.5 (0.2-1.0) mg/dL AST 26 D (15-37) U/L ALT 40 D (12-78) U/L Alkaline Phosphatase 132 H D (46-116) U/L Total Protein 8.5 H (6.4-8.2) g/dL Albumin 4.4 (3.4-5.0) g/dL Globulin 4.1 H (2.3-3.5) g/dL Albumin/Globulin Ratio 1.1 L (1.2-2.2) Urine Color Yellow (YELLOW) Urine Appearance Slightly cloudy A (CLEAR) Urine pH 6.5 (5.0-8.0) Ur Specific [place] 1.020 (1.008-1.030) Urine Protein Negative (NEGATIVE) mg/dL Urine Glucose (UA) Negative (NEGATIVE) mg/dL Urine Ketones Negative (NEGATIVE) mg/dL Urine Occult Blood Small H (NEGATIVE) Urine Nitrite Negative (NEGATIVE) Urine Bilirubin Negative (NEGATIVE) Urine Urobilinogen 0.2 (0.2-1.0) EU/dL Ur Leukocyte Esterase Negative (NEGATIVE) Urine RBC 0-5 (0-5) Urine WBC Not seen (0-5) Ur Epithelial Cells Rare Amorphous Sediment Few Urine Bacteria Few Urine Mucus Few 12/13/19 Range/Units 08:39 WBC (4.5-11.0) K/uL RBC (3.30-5.50) M/uL Hgb (12.0-15.0) g/dL Hct (36.0-48.0) % MCV (80-98) fL MCH (27-31) pg MCHC (32-36) % Plt Count (150-400) K/uL Neut % (Auto) (36-66) % Lymph % (Auto) (24-44) % Brooks % (Auto) (2-6) % Eos % (Auto) (2-4) % Baso % (Auto) (0-1) % Sodium (140-148) mmol/L Potassium (3.6-5.2) mmol/L Chloride (100-108) mmol/L Carbon Dioxide (21-32) mmol/L Anion Gap (5.0-14.0) mmol/L BUN (7-18) mg/dL Creatinine (0.6-1.0) mg/dL Est Cr Clr Drug Dosing mL/min Estimated GFR (MDRD) (>60) Glucose (74-106) mg/dL Lactic Acid 1.9 (0.4-2.0) mmol/L Calcium (8.5-10.1) mg/dL Magnesium (1.8-2.4) mg/dL Total Bilirubin (0.2-1.0) mg/dL AST (15-37) U/L ALT (12-78) U/L Alkaline Phosphatase (46-116) U/L Total Protein (6.4-8.2) g/dL Albumin (3.4-5.0) g/dL Globulin (2.3-3.5) g/dL Albumin/Globulin Ratio (1.2-2.2) Urine Color (YELLOW) Urine Appearance (CLEAR) Urine pH (5.0-8.0) Ur Specific [place] (1.008-1.030) Urine Protein (NEGATIVE) mg/dL Urine Glucose (UA) (NEGATIVE) mg/dL Urine Ketones (NEGATIVE) mg/dL Urine Occult Blood (NEGATIVE) Urine Nitrite (NEGATIVE) Urine Bilirubin (NEGATIVE) Urine Urobilinogen (0.2-1.0) EU/dL Ur Leukocyte Esterase (NEGATIVE) Urine RBC (0-5) Urine WBC (0-5) Ur Epithelial Cells Amorphous Sediment Urine Bacteria Urine Mucus Meds: Medications Generic Name Dose Route Start Last Admin Trade Name Freq PRN Reason Stop Dose Admin Sodium Chloride 1,000 mls @ 1,000 mls/hr 12/13/19 09:15 12/13/19 11:25 Normal Saline IV 1,000 mls/hr ASDIRECTED CASSIE Administration Sodium Chloride 77 mls @ 3.5 mls/sec 12/13/19 10:00 12/13/19 10:11 Normal Saline IV 3.5 mls/sec ASDIRECTED CASSIE Administration Magnesium Sulfate 2 gm/ Premix 50 mls @ 50 mls/hr 12/13/19 11:30 12/13/19 12:43 IV 12/13/19 13:29 50 mls/hr Q1H CASSIE Administration Sodium Chloride 1,000 mls @ 1,000 mls/hr 12/13/19 11:30 Normal Saline IV ASDIRECTED CASSIE Discontinued Medications Generic Name Dose Route Start Last Admin Trade Name Freq PRN Reason Stop Dose Admin Hydromorphone HCl 0.5 mg 12/13/19 08:23 12/13/19 08:34 Dilaudid IVPUSH 12/13/19 08:24 0.5 mg ONETIME ONE Administration Hydromorphone HCl 0.5 mg 12/13/19 09:55 12/13/19 09:59 Dilaudid IVPUSH 12/13/19 09:56 0.5 mg ONETIME ONE Administration Iopamidol 111 ml 12/13/19 09:53 12/13/19 10:11 Isovue-300 (61%) IV 12/13/19 09:54 111 ml ONETIME ONE Administration - Re-Assessments/Exams Free Text/Narrative Re-Assessment/Exam: 12/13/19 09:50 Patient initially got some relief from the IV Dilaudid, mini cath UA showed a specific gravity of 1.020 and no infection. Hemoglobin is 11.8 which is excellent for her, white count 4300 and lactic acid was normal. Magnesium 1.2. Patient will be hydrated with normal saline and a CT with IV contrast performed. Creatinine is 1.3 and GFR 43. 12/13/19 11:59 CT scan was nonspecific, patient became more symptomatic and upset that we "finding anything". Dr. Reno recommended 4 g of medium IV and a second liter of fluid, I discussed her condition with Dr. Dickerson and he agreed to see her to consider admission. Departure - Departure Time of Disposition: 12:50 Disposition: Admitted As Inpatient 65 Clinical Impression: Chronic abdominal pain - Discharge Information Sepsis Event Note (ED) - Evaluation Sepsis Screening Result: No Definite Risk - Focused Exam Vital Signs: Vital Signs Temp Pulse Resp BP Pulse Ox 12/13/19 10:56 94 164/86 H 100 12/13/19 10:36 93 159/81 H 100 12/13/19 10:15 90 155/75 H 12/13/19 09:55 95 141/88 H 12/13/19 09:25 96 152/78 H 12/13/19 08:56 94 156/78 H 96 12/13/19 08:26 102 H 163/94 H 100 12/13/19 08:05 97.6 F 103 H 18 166/103 H 100 12/13/19 07:59 97.6 F 103 H 18 166/103 H 100 - My Orders Last 24 Hours: My Active Orders 12/13/19 09:15 Sodium Chloride 0.9% [Normal Saline] 1,000 ml IV ASDIRECTED 12/13/19 10:00 Sodium Chloride 0.9% [Normal Saline] 77 ml IV ASDIRECTED 12/13/19 11:30 Magnesium Sulfate/Water [Magnesium Sulfate in Water Premix] 2 gm Premix Bag 1 bag IV Q1H Sodium Chloride 0.9% [Normal Saline] 1,000 ml IV ASDIRECTED - Assessment/Plan Last 24 Hours: My Active Orders 12/13/19 09:15 Sodium Chloride 0.9% [Normal Saline] 1,000 ml IV ASDIRECTED 12/13/19 10:00 Sodium Chloride 0.9% [Normal Saline] 77 ml IV ASDIRECTED 12/13/19 11:30 Magnesium Sulfate/Water [Magnesium Sulfate in Water Premix] 2 gm Premix Bag 1 bag IV Q1H Sodium Chloride 0.9% [Normal Saline] 1,000 ml IV ASDIRECTED
[2019-12-13] MEDS: Sodium Chloride 0.9% 1,000 ML IV SCH ×3 (09:20→19:45)
[2019-12-13] MEDS ORDERED: Iopamidol 612 MG/ML 500 ML Multipack Bottle IV ONE (09:53)
[2019-12-13] MEDS: Magnesium Sulfate/Water 2 GM in Premix Bag 1 BAG IV SCH ×3 (11:25→19:57)
[2019-12-13] MEDS ORDERED: Sodium Chloride 0.9% 1,000 ML IV SCH (11:30)
--- NOTE | 2019-12-13 11:44 | CT ---
Abdomen Pelvis w Cont CLINICAL HISTORY: Pain COMPARISON: Noncontrast study September 2019. TECHNIQUE: Axial tomographic images are obtained from the dome of the diaphragm to the pubic symphysis with IV contrast enhancement. No oral contrast was used. Auto dosage reduction and iterative reconstruction techniques employed. FINDINGS: The lung bases are clear. The liver is enlarged. There is diffuse fatty infiltration. There is no biliary dilatation. The gallbladder is large. This is similar to prior study. The spleen is moderately enlarged measuring 19 cm in length. This is unchanged. The pancreas shows no mass or inflammatory change. The adrenal glands appear normal bilaterally. The left kidney has been removed. Right kidney has a normal appearance The aorta has a normal contour. There is no suspicious retroperitoneal adenopathy. Patient is status post total colectomy. There is a right abdominal ileostomy. There is moderate scarring and abdominal wall thickening at the midline from previous surgery. Fat planes are well demarcated. Pelvic side daly are clear. IMPRESSION: Moderate hepatosplenomegaly with fatty infiltration of the liver Prominent gallbladder similar to September 2019 Previous colectomy and multiple prior small intestinal surgeries. There is a right abdominal ileostomy. Intestinal configuration is nonacute. Previous left nephrectomy
--- NOTE | 2019-12-13 11:55 | PCM.HP.2 ---
H&P History of Present Illness - General Date of Service: 12/13/19 Admit Problem/Dx: Admission Diagnosis/Problem Admission Diagnosis/Problem Diarrhea Source of Information: Patient, Family, Old Records, Provider, RN Notes Reviewed History Limitations: Reports: No Limitations - History of Present Illness Initial Comments - Free Text/Narative: Ms. Foley is a 59-year-old woman who is admitted through the emergency department with weakness and abdominal pain secondary to increased ostomy output and hypomagnesemia. She intermittently has had difficulty with high ostomy ou tput often becomes very dehydrated with associated acute kidney injury. It has not progressed to that point but she has had a higher ostomy outputs over the past 10 days, significantly worse over the last 24 hours. Renal function at this time is stable but she is found to have significant hypomagnesemia which has been an ongoing problem for her. She reports increased pain in her lower back and left lower quadrant to the abdomen. CT scan was obtained in the emergency department and shows no significant abnormalities within the abdomen to explain her current symptoms. Labs have not been obtained and other than low magnesium there are no other obvious red flags. Lower Abdomen Pain Score (Numeric/FACES): 8 - Related Data Allergies/Adverse Reactions: Allergies Allergy/AdvReac Type Severity Reaction Status Date / Time No Known Allergies Allergy Verified 12/13/19 08:05 Home Medications: Home Meds Acetaminophen [Acetaminophen Extra Strength] 1,000 mg PO Q4HR PRN 06/17/19 [History] Cyanocobalamin (Vitamin B-12) [Cyanocobalamin Injection] 1 ml IM ASDIRECTED 06/17/19 [History] Imipramine HCl 200 mg PO BEDTIME 06/17/19 [History] Nystatin [Nystatin Oint] 1 dose TOP BID PRN 06/17/19 [History] Ondansetron [Zofran ODT] 4 mg PO Q4HR PRN 06/17/19 [History] Pedi Multivit No.25/Folic Acid [Flintstones Multivit Chew Tab] 1 tab PO DAILY 06/17/19 [History] SUMAtriptan [Imitrex] 50 mg PO BTNUNITS PRN 06/17/19 [History] tiZANidine [Zanaflex] 4 mg PO BID PRN 06/17/19 [History] Amylase/Lipase/Protease [Creon DR 12,000 Units] 2 cap PO TIDMEALS #180 cap.cr 09/16/19 [Rx] DULoxetine [Cymbalta] 60 mg PO DAILY cap 09/16/19 [Rx] Lactobacillus Rhamnosus GG [Culturelle] 1 cap PO BID #60 cap 09/16/19 [Rx] Loperamide [Imodium] 4 mg PO Q4H #100 cap 09/16/19 [Rx] Melatonin 9 mg PO BEDTIME tablet 09/16/19 [Rx] traMADol [Ultram] 100 mg PO Q4H PRN tablet 09/16/19 [Rx] Atropine/Diphenoxylate [Diphenoxylate-Atropine] 2 tab PO Q6H 10/22/19 [History] Magnesium Oxide 400 mg PO TID 10/22/19 [History] Potassium Chloride 20 meq PO BID 10/22/19 [History] Psyllium Seed (With Sugar) [Metamucil Fiber Wafer] 2 each PO TID #180 wafer 11/01/19 [Rx] Past Medical History HEENT History: Reports: Impaired Vision Cardiovascular History: Reports: Arrhythmia Gastrointestinal History: Reports: Bowel Obstruction, Chronic Diarrhea, Other (See Below) Other Gastrointestinal History: hernia, multiple bowel surgerys, short gut syndrome Genitourinary History: Reports: Renal Calculus 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: Neurological History: Reports: Migraines Psychiatric History: Reports: Anxiety Insulin Pump Model and Hr Director: no Hematologic History: Reports: Anemia, B12 Deficiency, Blood Transfusion(s), Folic Acid, Iron Deficiency - Infectious Disease History Infectious Disease History: Reports: Chicken Pox - Past Surgical History Head Surgeries/Procedures: Reports: None HEENT Surgical History: Reports: Adenoidectomy, Tonsillectomy Cardiovascular Surgical History: Reports: Cardiac Ablation GI Surgical History: Reports: Appendectomy, Colonoscopy, EGD, Other (See Below) Other GI Surgeries/Procedures: hernia, has ileostomy. ileostomy Female Surgical History: Reports: Hysterectomy Neurological Surgical History: Reports: None Dermatological Surgical History: Reports: None Social & Family History - Family History Family Medical History: Noncontributory - Tobacco Use Smoking Status *Q: Never Smoker - Caffeine Use Caffeine Use: Reports: Soda - Recreational Drug Use Recreational Drug Use: No H&P Review of Systems - Review of Systems: Review Of Systems: See Below General: Reports: Malaise, Weakness. Denies: Fever, Chills HEENT: Reports: No Symptoms Pulmonary: Reports: No Symptoms Cardiovascular: Reports: No Symptoms Gastrointestinal: Reports: Abdominal Pain, Diarrhea, Decreased Appetite. De nies: Black Stool, Bloody Stool, Difficulty Swallowing, Distension, Nausea, Vomiting Genitourinary: Reports: No Symptoms Musculoskeletal: Reports: No Symptoms Skin: Reports: No Symptoms Psychiatric: Reports: No Symptoms Neurological: Reports: No Symptoms Hematologic/Lymphatic: Reports: No Symptoms Immunologic: Reports: No Symptoms Exam - Exam Exam: See Below - Vital Signs Vital Signs: Last Vital Signs Temp 97.6 F 12/13/19 08:05 Pulse 94 12/13/19 10:56 Resp 18 12/13/19 08:05 BP 164/86 H 12/13/19 10:56 Pulse Ox 100 12/13/19 10:56 Weight: 162 lb 14.746 oz - Exam Quality Assessment: DVT Prophylaxis General: Alert, Oriented, Cooperative, Moderate Distress HEENT: Conjunctiva Clear, Hearing Intact, Mucosa Moist & [place], Normal Nasal Septum, Posterior Pharynx Clear, Pupils Equal Neck: Supple, Trachea Midline, +2 Carotid Pulse wo Bruit Lungs: Clear to Auscultation, Normal Respiratory Effort Cardiovascular: Regular Rate, Regular Rhythm, Normal S1, Normal S2. No: Systolic Murmur, Diastolic Murmur GI/Abdominal Exam: Soft, No Organomegaly, Tender. No: Distended, Guarding, Rigid, Rebound Back Exam: Normal Inspection, Full Range of Motion Extremities: Non-Tender, No Pedal Edema Skin: Warm, Dry Neurological: Cranial Nerves Intact, Strength Equal Bilateral, Normal Speech, Normal Tone, Sensation Intact. No: Focal Deficit Neuro Extensive - Mental Status: Alert, Oriented x3, Normal Mood/Affect, Normal Cognition, Memory Intact - Patient Data Lab Results Last 24 hrs: Laboratory Results - last 24 hr 12/13/19 12/13/19 12/13/19 Range/Units 08:31 08:39 08:39 WBC 4.3 L (4.5-11.0) K/uL RBC 3.69 (3.30-5.50) M/uL Hgb 11.8 L D (12.0-15.0) g/dL Hct 35.2 L (36.0-48.0) % MCV 95 (80-98) fL MCH 32 H (27-31) pg MCHC 34 (32-36) % Plt Count 111 L (150-400) K/uL Neut % (Auto) 72 H (36-66) % Lymph % (Auto) 23 L (24-44) % [place] % (Auto) 5 (2-6) % Eos % (Auto) 0 L (2-4) % Baso % (Auto) 0 (0-1) % Sodium 138 L (140-148) mmol/L Potassium 4.1 (3.6-5.2) mmol/L Chloride 102 (100-108) mmol/L Carbon Dioxide 23 (21-32) mmol/L Anion Gap 17.1 H (5.0-14.0) mmol/L BUN 12 (7-18) mg/dL Creatinine 1.3 H (0.6-1.0) mg/dL Est Cr Clr Drug Dosing 45.59 mL/min Estimated GFR (MDRD) 42 L (>60) Glucose 100 (74-106) mg/dL Lactic Acid (0.4-2.0) mmol/L Calcium 9.3 (8.5-10.1) mg/dL Magnesium 1.2 L (1.8-2.4) mg/dL Total Bilirubin 0.5 (0.2-1.0) mg/dL AST 26 D (15-37) U/L ALT 40 D (12-78) U/L Alkaline Phosphatase 132 H D (46-116) U/L Total Protein 8.5 H (6.4-8.2) g/dL Albumin 4.4 (3.4-5.0) g/dL Globulin 4.1 H (2.3-3.5) g/dL Albumin/Globulin Ratio 1.1 L (1.2-2.2) Urine Color Yellow (YELLOW) Urine Appearance Slightly cloudy A (CLEAR) Urine pH 6.5 (5.0-8.0) Ur Specific [place] 1.020 (1.008-1.030) Urine Protein Negative (NEGATIVE) mg/dL Urine Glucose (UA) Negative (NEGATIVE) mg/dL Urine Ketones Negative (NEGATIVE) mg/dL Urine Occult Blood Small H (NEGATIVE) Urine Nitrite Negative (NEGATIVE) Urine Bilirubin Negative (NEGATIVE) Urine Urobilinogen 0.2 (0.2-1.0) EU/dL Ur Leukocyte Esterase Negative (NEGATIVE) Urine RBC 0-5 (0-5) Urine WBC Not seen (0-5) Ur Epithelial Cells Rare Amorphous Sediment Few Urine Bacteria Few Urine Mucus Few 12/13/19 Range/Units 08:39 WBC (4.5-11.0) K/uL RBC (3.30-5.50) M/uL Hgb (12.0-15.0) g/dL Hct (36.0-48.0) % MCV (80-98) fL MCH (27-31) pg MCHC (32-36) % Plt Count (150-400) K/uL Neut % (Auto) (36-66) % Lymph % (Auto) (24-44) % [place] % (Auto) (2-6) % Eos % (Auto) (2-4) % Baso % (Auto) (0-1) % Sodium (140-148) mmol/L Potassium (3.6-5.2) mmol/L Chloride (100-108) mmol/L Carbon Dioxide (21-32) mmol/L Anion Gap (5.0-14.0) mmol/L BUN (7-18) mg/dL Creatinine (0.6-1.0) mg/dL Est Cr Clr Drug Dosing mL/min Estimated GFR (MDRD) (>60) Glucose (74-106) mg/dL Lactic Acid 1.9 (0.4-2.0) mmol/L Calcium (8.5-10.1) mg/dL Magnesium (1.8-2.4) mg/dL Total Bilirubin (0.2-1.0) mg/dL AST (15-37) U/L ALT (12-78) U/L Alkaline Phosphatase (46-116) U/L Total Protein (6.4-8.2) g/dL Albumin (3.4-5.0) g/dL Globulin (2.3-3.5) g/dL Albumin/Globulin Ratio (1.2-2.2) Urine Color (YELLOW) Urine Appearance (CLEAR) Urine pH (5.0-8.0) Ur Specific [place] (1.008-1.030) Urine Protein (NEGATIVE) mg/dL Urine Glucose (UA) (NEGATIVE) mg/dL Urine Ketones (NEGATIVE) mg/dL Urine Occult Blood (NEGATIVE) Urine Nitrite (NEGATIVE) Urine Bilirubin (NEGATIVE) Urine Urobilinogen (0.2-1.0) EU/dL Ur Leukocyte Esterase (NEGATIVE) Urine RBC (0-5) Urine WBC (0-5) Ur Epithelial Cells Amorphous Sediment Urine Bacteria Urine Mucus Result Diagrams: 12/13/19 08:39 12/13/19 08:39 Sepsis Event Note - Evaluation Sepsis Screening Result: No Definite Risk - Focused Exam Vital Signs: Vital Signs Temp Pulse Resp BP Pulse Ox 12/13/19 10:56 94 164/86 H 100 12/13/19 10:36 93 159/81 H 100 12/13/19 10:15 90 155/75 H 12/13/19 09:55 95 141/88 H 12/13/19 09:25 96 152/78 H 12/13/19 08:56 94 156/78 H 96 12/13/19 08:26 102 H 163/94 H 100 12/13/19 08:05 97.6 F 103 H 18 166/103 H 100 12/13/19 07:59 97.6 F 103 H 18 166/103 H 100 *Q Meaningful Use (ADM) - VTE Risk Assess *Q Each Risk Factor Represents 1 Point: None Total Score 1 Point Risk Factors: 0 Each Risk Factor Represents 2 Points: Age 60 - 74 Years Total Score 2 Point Risk Factors: 2 Each Risk Factor Represents 3 Points: None Total Score 3 Point Risk Factors: 0 Each Risk Factor Represents 5 Points: None Total Score 5 Point Risk Factors: 0 Venous Thromboembolism Risk Factor Score *Q: 2 Problem List Initiated/Reviewed/Updated: Yes Orders Last 24hrs: Active Orders 24 hr Category Date Time Status Patient Status Manage Transfer [TRANSFER] Routine ADT 12/13/19 11:46 Ordered Magnesium Sulfate/Water [Magnesium Sulfate in Water Med 12/13/19 11:30 Active Premix] 2 gm Premix Bag 1 bag IV Q1H Sodium Chloride 0.9% [Normal Saline] 1,000 ml Med 12/13/19 09:15 Active IV ASDIRECTED Sodium Chloride 0.9% [Normal Saline] 1,000 ml Med 12/13/19 11:30 Active IV ASDIRECTED Sodium Chloride 0.9% [Normal Saline] 77 ml Med 12/13/19 10:00 Active IV ASDIRECTED Resuscitation Status Routine Resus Stat 12/13/19 11:50 Ordered Medication Orders Sodium Chloride (Normal Saline) 1,000 mls @ 1,000 mls/hr IV ASDIRECTED [facility] Last Admin: 12/13/19 11:25 Dose: 1,000 mls/hr Documented by: Infusion: 12/13/19 10:20 Dose: 1,000 mls/hr Documented by: Admin: 12/13/19 09:20 Dose: 1,000 mls/hr Documented by: NEENA Sodium Chloride (Normal Saline) 77 mls @ 3.5 mls/sec IV ASDIRECTED [facility] Last Admin: 12/13/19 10:11 Dose: 3.5 mls/sec Documented by: TELLY Magnesium Sulfate 2 gm/ Premix 50 mls @ 50 mls/hr IV Q1H [facility] Stop: 12/13/19 13:29 Last Admin: 12/13/19 11:25 Dose: 50 mls/hr Documented by: NEENA Sodium Chloride (Normal Saline) 1,000 mls @ 1,000 mls/hr IV ASDIRECTED [facility] Assessment/Plan Comment:: ASSESSMENT AND PLAN DIARRHEA/HIGH OSTOMY OUTPUT-symptoms of weakness and associated abdominal pain, no severe dehydration or acute kidney injury with this episode -Continue current therapy with Lomotil and Imodium -IV fluids for hydration -Stool studies including C. difficile pending OPEN ABDOMINAL WOUND-all open area on the upper aspect of her abdominal wound -Continue current management and wound care HYPOMAGNESEMIA -IV magnesium replacement -Reassess magnesium level in a.m. MAINTENANCE ISSUES -DVT prophylaxis; Lovenox 40 mg subcu daily -GI prophylaxis; continue outpatient PPI therapy -Law catheter; not indicated -Nutrition; regular diet -Nicotine dependence; not required CODE STATUS-FULL CODE ADMISSION STATUS-patient will be admitted to observation status, expect no more than 48-hour hospitalization for management of current problems. DISPOSITION-anticipate discharge to home after the hospital stay. PRIMARY CARE PROVIDER-Dr. Gerber - Mortality Measure Prognosis:: Good
[2019-12-13] MEDS ORDERED: tiZANidine 2 MG Tab PO PRN (12:57)
[2019-12-13] MEDS ORDERED: Sodium Chloride 0.9% 10 ML Syringe FLUSH PRN (12:57)
[2019-12-13] MEDS ORDERED: SUMAtriptan 50 MG Tab PO PRN (12:57)
[2019-12-13] MEDS ORDERED: Ondansetron 4 MG Tab.DIS PO PRN (12:57)
[2019-12-13] MEDS: HYDROmorphone 2 MG Tab PO PRN ×4 (13:35→23:18)
[2019-12-13] MEDS: LIPASE PO SCH ×2 (13:37→16:18)
[2019-12-13] MEDS: PROTEASE PO SCH ×2 (13:37→16:18)
[2019-12-13] MEDS: AMYLASE PO SCH ×2 (13:37→16:18)
[2019-12-13] MEDS: MAGNESIUM OXIDE 400 MG PO SCH ×2 (14:16→22:08)
[2019-12-13] MEDS: [UNRECOGNIZED DRUG - OTHER] PO SCH ×2 (14:16→22:09)
[2019-12-13] MEDS: Enoxaparin 40 MG/0.4 ML Syringe SUBCUT SCH (14:45)
[2019-12-13] MEDS: Potassium Chloride 20 MEQ Tab.ER PO SCH (16:18)
[2019-12-13] MEDS: ATROPINE PO SCH ×2 (16:34→22:11)
[2019-12-13] MEDS: DIPHENOXYLATE PO SCH ×2 (16:34→22:11)
[2019-12-13] MEDS: Acetaminophen 325 MG Tab PO PRN (19:53)
[2019-12-13] MEDS ORDERED: IMIPRAMINE HCL PO SCH (21:00)
[2019-12-13] MEDS ORDERED: Non-Formulary Medication 1 Each (Potassium Chloride [Potassium Chloride] 20 MEQ) PO SCH (21:00)
[2019-12-13] MEDS: LACTOBACILLUS RHAMNOSUS GG PO SCH (22:07)
[2019-12-13] MEDS: Melatonin 3 MG Tab PO SCH (22:12)
[2019-12-13] MEDS: TIZANIDINE 2 MG PO PRN (23:16)
[2019-12-14] MEDS: Magnesium Sulfate/Water 2 GM in Premix Bag 1 BAG IV SCH ×2 (02:14→08:14)
[2019-12-14] MEDS: HYDROmorphone 2 MG Tab PO PRN ×7 (02:14→21:40)
[2019-12-14] MEDS: Loperamide 2 MG Cap PO SCH (02:57)
[2019-12-14] MEDS: Sodium Chloride 0.9% 1,000 ML IV SCH (03:08)
[2019-12-14] MEDS: DIPHENOXYLATE PO SCH ×4 (03:10→21:48)
[2019-12-14] MEDS: ATROPINE PO SCH ×4 (03:10→21:48)
[2019-12-14] MEDS: MAGNESIUM OXIDE 400 MG PO SCH ×3 (08:10→21:44)
[2019-12-14] MEDS: [UNRECOGNIZED DRUG - OTHER] PO SCH ×3 (08:11→21:47)
[2019-12-14] MEDS: LOPERAMIDE 2 MG PO PRN (08:12)
[2019-12-14] MEDS: LACTOBACILLUS RHAMNOSUS GG PO SCH ×2 (08:13→21:41)
[2019-12-14] MEDS: AMYLASE PO SCH ×3 (08:15→17:27)
[2019-12-14] MEDS: PROTEASE PO SCH ×3 (08:15→17:27)
[2019-12-14] MEDS: LIPASE PO SCH ×3 (08:15→17:27)
[2019-12-14] MEDS: DULOXETINE 60 MG PO SCH (08:16)
[2019-12-14] MEDS: Multivitamins with Iron Tab.Chew PO SCH (08:16)
[2019-12-14] MEDS: Potassium Chloride 20 MEQ Tab.ER PO SCH ×2 (08:16→17:31)
[2019-12-14] MEDS: Acetaminophen 325 MG Tab PO PRN ×3 (08:20→21:43)
[2019-12-14] MEDS ORDERED: [UNRECOGNIZED DRUG - REMARK] PO SCH (09:00)
--- NOTE | 2019-12-14 09:42 | PCM.PN ---
- General Info Date of Service: 12/14/19 Subjective Update: Ms. Foley is been stable since admission, ostomy output also has remained within average range although stools are somewhat loose. C. difficile is negative, other stool cultures pending. She has remained afebrile and has been hemodynamically stable. She has developed mild pancytopenia, present during previous admissions. Functional Status: Reports: Tolerating Diet, Ambulating, Urinating - Review of Systems General: Reports: No Symptoms Pulmonary: Reports: No Symptoms Cardiovascular: Reports: No Symptoms Gastrointestinal: Reports: Abdominal Pain. Denies: Diarrhea, Difficulty Swallowing, Hematochezia, Melena, Nausea, Vomiting - Patient Data Vitals - Most Recent: Last Vital Signs Temp 97.3 F 12/14/19 09:36 Pulse 79 12/14/19 09:36 Resp 18 12/14/19 09:36 BP 115/63 12/14/19 09:36 Pulse Ox 99 12/14/19 09:36 Weight - Most Recent: 164 lb I&O - Last 24 Hours: Intake & Output 12/13/19 12/14/19 12/14/19 22:59 06:59 14:59 Intake Total 2706 1269 50 Output Total 450 775 Balance 2256 494 50 Lab Results Last 24 Hours: Laboratory Results - last 24 hr 12/14/19 12/14/19 Range/Units 04:15 04:15 WBC 2.5 L (4.5-11.0) K/uL RBC 2.95 L (3.30-5.50) M/uL Hgb 9.5 L D (12.0-15.0) g/dL Hct 28.9 L (36.0-48.0) % MCV 98 (80-98) fL MCH 32 H (27-31) pg MCHC 33 (32-36) % Plt Count 82 L (150-400) K/uL Neut % (Auto) 48 (36-66) % Lymph % (Auto) 43 (24-44) % [place] % (Auto) 9 H (2-6) % Eos % (Auto) 0 L (2-4) % Baso % (Auto) 0 (0-1) % Sodium 139 L (140-148) mmol/L Potassium 4.2 (3.6-5.2) mmol/L Chloride 107 (100-108) mmol/L Carbon Dioxide 24 (21-32) mmol/L Anion Gap 12.2 (5.0-14.0) mmol/L BUN 12 (7-18) mg/dL Creatinine 1.1 H (0.6-1.0) mg/dL Est Cr Clr Drug Dosing 53.88 mL/min Estimated GFR (MDRD) 51 L (>60) Glucose 103 (74-106) mg/dL Calcium 8.5 (8.5-10.1) mg/dL Magnesium 3.3 H D (1.8-2.4) mg/dL Eliud Results Last 24 Hours: Microbiology 12/13/19 16:03 Shiga Toxin I - Final Stool / Feces NEGATIVE FOR SHIGA TOXIN 1 Shiga Toxin II - Final NEGATIVE FOR SHIGA TOXIN 2 REFERENCE RANGE: NEGATIVE Clostridioides difficile (PCR) - Final 12/13/19 16:03 Stool for WBCs - Final Stool / Feces NO WBC SEEN REFERENCE RANGE: NO WBC SEEN Med Orders - Current: Current Medications Acetaminophen (Tylenol) 650 mg PO Q4H PRN PRN Reason: Pain (Mild 1-3)/fever Last Admin: 12/14/19 08:20 Dose: 650 mg Documented by: Lipase/Protease/Amylase (Gus Greer 12,000 Units) 2 cap PO TIDMEALS [facility] Last Admin: 12/14/19 08:15 Dose: 2 cap Documented by: Cyanocobalamin (Vitamin B12) 1,000 mcg IM Q30D [facility] Diphenoxylate HCl/Atropine (Lomotil 0.025-2.5 Mg) 2 tab PO Q6H [facility] Last Admin: 12/14/19 09:35 Dose: 2 tab Documented by: Enoxaparin Sodium (Lovenox) 40 mg SUBCUT Q24H [facility] Last Admin: 12/13/19 14:45 Dose: 40 mg Documented by: Hydromorphone HCl (Dilaudid) 2 mg PO Q3H PRN PRN Reason: Pain Last Admin: 12/14/19 09:32 Dose: 2 mg Documented by: Magnesium Sulfate 2 gm/ Premix 50 mls @ 25 mls/hr IV Q6H [facility] Stop: 12/14/19 09:59 Last Admin: 12/14/19 08:14 Dose: 25 mls/hr Documented by: Lactobacillus Rhamnosus (Culturelle) 1 cap PO BID [facility] Last Admin: 12/14/19 08:13 Dose: 1 cap Documented by: Loperamide HCl (Imodium) 4 mg PO QID PRN PRN Reason: Diarrhea Last Admin: 12/14/19 08:12 Dose: 4 mg Documented by: Magnesium Oxide (Magnesium Oxide) 400 mg PO TID [facility] Last Admin: 12/14/19 08:10 Dose: 400 mg Documented by: Melatonin (Melatonin) 9 mg PO BEDTIME [facility] Last Admin: 12/13/19 22:12 Dose: 9 mg Documented by: Multivitamins/Iron (Child Chew Iron) 1 tab PO DAILY [facility] Last Admin: 12/14/19 08:16 Dose: 1 tab Documented by: Imipramine 100mg (Caps Own Med ) 2 each PO BEDTIME [facility] Ondansetron HCl (Zofran Odt) 4 mg PO Q4H PRN PRN Reason: Other Duloxetine 60 Mg Cap (Pom) 0 each PO DAILY [facility] Last Admin: 12/14/19 08:16 Dose: 60 each Documented by: Potassium Chloride (Klor-Con M20) 20 meq PO BIDMEALS [facility] Last Admin: 12/14/19 08:16 Dose: 20 meq Documented by: Psyllium Husk (Metamucil Fiber Wafer) 2 each PO TID [facility] Last Admin: 12/14/19 08:11 Dose: 2 each Documented by: Sodium Chloride (Saline Flush) 10 ml FLUSH ASDIRECTED PRN PRN Reason: Keep Vein Open Sumatriptan Succinate (Imitrex) 50 mg PO Q24H PRN PRN Reason: Migraine Tizanidine HCl (Zanaflex) 4 mg PO BID PRN PRN Reason: cramps Last Admin: 12/13/19 23:16 Dose: 4 mg Documented by: Discontinued Medications Hydromorphone HCl (Dilaudid) 0.5 mg IVPUSH ONETIME ONE Stop: 12/13/19 08:24 Last Admin: 12/13/19 08:34 Dose: 0.5 mg Documented by: Hydromorphone HCl (Dilaudid) 0.5 mg IVPUSH ONETIME ONE Stop: 12/13/19 09:56 Last Admin: 12/13/19 09:59 Dose: 0.5 mg Documented by: Sodium Chloride (Normal Saline) 1,000 mls @ 1,000 mls/hr IV ASDIRECTED [facility] Last Admin: 12/13/19 11:25 Dose: 1,000 mls/hr Documented by: Sodium Chloride (Normal Saline) 77 mls @ 3.5 mls/sec IV ASDIRECTED [facility] Last Admin: 12/13/19 10:11 Dose: 3.5 mls/sec Documented by: Magnesium Sulfate 2 gm/ Premix 50 mls @ 50 mls/hr IV Q1H [facility] Stop: 12/13/19 13:29 Last Admin: 12/13/19 12:43 Dose: 50 mls/hr Documented by: Sodium Chloride (Normal Saline) 1,000 mls @ 1,000 mls/hr IV ASDIRECTED [facility] Sodium Chloride (Normal Saline) 1,000 mls @ 125 mls/hr IV ASDIRECTED [facility] Last Admin: 12/14/19 03:08 Dose: 125 mls/hr Documented by: Imipramine HCl (Imipramine Hcl) 200 mg PO BEDTIME [facility] Last Admin: 12/14/19 01:05 Dose: Not Given Documented by: Iopamidol (Isovue-300 (61%)) 111 ml IV ONETIME ONE Stop: 12/13/19 09:54 Last Admin: 12/13/19 10:11 Dose: 111 ml Documented by: Loperamide HCl (Imodium) 4 mg PO Q4H [facility] Last Admin: 12/14/19 02:57 Dose: Not Given Documented by: Tizanidine HCl (Zanaflex) 4 mg PO BID PRN PRN Reason: cramps - Exam Quality Assessment: DVT Prophylaxis General: Alert, Oriented, Cooperative, Mild Distress Lungs: Clear to Auscultation, Normal Respiratory Effort Cardiovascular: Regular Rate, Regular Rhythm, No Murmurs GI/Abdominal Exam: Soft, No Organomegaly, Tender. No: Distended, Guarding, Rigid, Rebound Extremities: Non-Tender, No Pedal Edema Sepsis Event Note - Evaluation Sepsis Screening Result: No Definite Risk - Focused Exam Vital Signs: Vital Signs Temp Pulse Resp BP Pulse Ox 12/14/19 09:36 97.3 F 79 18 115/63 99 12/14/19 02:10 97.9 F 70 15 105/40 L 99 12/13/19 22:37 96.8 F L 68 16 105/48 L 100 - Problem List Review Problem List Initiated/Reviewed/Updated: Yes - My Orders Last 24 Hours: My Active Orders 12/13/19 11:50 Resuscitation Status Routine 12/13/19 Lunch Regular Diet [DIET] 12/13/19 12:57 Acetaminophen [TylenoL] 650 mg PO Q4H PRN HYDROmorphone [Dilaudid] 2 mg PO Q3H PRN Ondansetron [Zofran ODT] 4 mg PO Q4H PRN SUMAtriptan [Imitrex] 50 mg PO Q24H PRN Sodium Chloride 0.9% [Saline Flush] 10 ml FLUSH ASDIRECTED PRN 12/13/19 12:57 Patient Status [ADT] Routine Ambulate [RC] QID Height and Weight [RC] DAILY Intake and Output [RC] QSHIFT Notify Provider Vital Signs [RC] ASDIRECTED Oxygen Therapy [RC] PRN Peripheral IV Care [RC] Q12H Up ad Faith [RC] ASDIRECTED Up to Chair [RC] QID VTE/DVT Education [RC] Per Unit Routine Vital Signs [RC] Q4H Peripheral IV Insertion Adult [OM.PC] Routine 12/13/19 13:15 Amylase/Lipase/Protease [Gus GREER 12,000 Units] 2 cap PO TIDMEALS 12/13/19 14:00 Enoxaparin [Lovenox] 40 mg SUBCUT Q24H Magnesium Oxide 400 mg PO TID Psyllium Seed (With Sugar) [Metamucil Fiber Wafer] 2 each PO TID 12/13/19 16:00 Atropine/Diphenoxylate [Lomotil 0.025-2.5 MG] 2 tab PO Q6H 12/13/19 16:03 CLOS DIFFICILE PCR W/REFLEX [RM] Stat CULTURE STOOL + SHIGATOX [RM] Stat 12/13/19 17:00 Potassium Chloride [Klor-Con M20] 20 meq PO BIDMEALS 12/13/19 20:00 Magnesium Sulfate/Water [Magnesium Sulfate in Water Premix] 2 gm Premix Bag 1 bag IV Q6H 12/13/19 21:00 Lactobacillus Rhamnosus GG [Culturelle] 1 cap PO BID Melatonin 9 mg PO BEDTIME 12/13/19 22:57 tiZANidine [Zanaflex] 4 mg PO BID PRN 12/14/19 09:00 Multivitamins with Iron [Child Chew Iron] 1 tab PO DAILY Patient's Own Medication [Ptom] 0 each PO DAILY 12/14/19 09:38 Convert IV to Saline Lock [OM.PC] Routine 12/14/19 21:00 Non-Formulary Medication [NF Drug] 2 each PO BEDTIME 12/15/19 05:00 BASIC METABOLIC PANEL,BMP [CHEM] Timed CBC WITH AUTO DIFF [HEME] Timed 12/19/19 10:00 Cyanocobalamin (Vitamin B12) [Vitamin B12] 1,000 mcg IM Q30D - Plan Plan:: ASSESSMENT AND PLAN DIARRHEA/HIGH OSTOMY OUTPUT-symptoms of weakness and associated abdominal pain, no severe dehydration or acute kidney injury with this episode. Ostomy output seems to be fairly well controlled since admission. Difficile is negative, other stool studies pending -Continue current therapy with Lomotil and Imodium -Lock IV -Stool studies pending OPEN ABDOMINAL WOUND-small open area on the upper aspect of her abdominal wound -Continue current management and wound care HYPOMAGNESEMIA-resolved PANCYTOPENIA-recurrent, often present during previous admissions -Reassess CBC in a.m. MAINTENANCE ISSUES -DVT prophylaxis; Lovenox 40 mg subcu daily -GI prophylaxis; continue outpatient PPI therapy -Law catheter; not indicated -Nutrition; regular diet -Nicotine dependence; not required CODE STATUS-FULL CODE ADMISSION STATUS-patient will be admitted to observation status, expect no more than 48-hour hospitalization for management of current problems. DISPOSITION-anticipate discharge to home after the hospital stay. PRIMARY CARE PROVIDER-Dr. Gerber
[2019-12-14] MEDS: TIZANIDINE 2 MG PO PRN ×2 (12:29→18:37)
[2019-12-14] MEDS: Enoxaparin 40 MG/0.4 ML Syringe SUBCUT SCH (14:07)
[2019-12-14] MEDS: IMIPRAMINE PO SCH (21:47)
[2019-12-14] MEDS: Melatonin 3 MG Tab PO SCH (21:47)
[2019-12-15] MEDS: HYDROmorphone 2 MG Tab PO PRN ×8 (00:58→22:19)
[2019-12-15] MEDS: DIPHENOXYLATE PO SCH ×4 (04:00→21:04)
[2019-12-15] MEDS: ATROPINE PO SCH ×4 (04:00→21:04)
[2019-12-15] MEDS: Acetaminophen 325 MG Tab PO PRN ×3 (07:05→19:23)
[2019-12-15] MEDS: TIZANIDINE 2 MG PO PRN ×2 (07:06→13:22)
[2019-12-15] MEDS: PROTEASE PO SCH ×3 (08:43→17:40)
[2019-12-15] MEDS: LIPASE PO SCH ×3 (08:43→17:40)
[2019-12-15] MEDS: AMYLASE PO SCH ×3 (08:43→17:40)
[2019-12-15] MEDS: Multivitamins with Iron Tab.Chew PO SCH (08:44)
[2019-12-15] MEDS: MAGNESIUM OXIDE 400 MG PO SCH ×3 (08:45→21:02)
[2019-12-15] MEDS: LACTOBACILLUS RHAMNOSUS GG PO SCH ×2 (08:45→21:01)
[2019-12-15] MEDS: [UNRECOGNIZED DRUG - OTHER] PO SCH ×3 (08:46→21:03)
[2019-12-15] MEDS: DULOXETINE 60 MG PO SCH (08:46)
[2019-12-15] MEDS: Potassium Chloride 20 MEQ Tab.ER PO SCH ×2 (08:49→17:47)
--- NOTE | 2019-12-15 09:34 | PCM.PN ---
- General Info Date of Service: 12/15/19 Subjective Update: Ms. Foley has unfortunately experienced increase in liquid ostomy output over the last 24 hours. She reports that her pain control is improved this morning, she has remained afebrile and hemodynamically stable. Pancytopenia has been stable with no progression of anemia. Functional Status: Reports: Tolerating Diet, Ambulating, Urinating - Review of Systems General: Reports: Weakness, Fatigue. Denies: Fever, Chills Pulmonary: Reports: No Symptoms Cardiovascular: Reports: No Symptoms Gastrointestinal: Reports: Abdominal Pain, Diarrhea, Nausea. Denies: Difficulty Swallowing, Vomiting - Patient Data Vitals - Most Recent: Last Vital Signs Temp 97.0 F 12/15/19 07:07 Pulse 66 12/15/19 07:07 Resp 16 12/15/19 07:07 BP 130/57 L 12/15/19 07:07 Pulse Ox 99 12/15/19 07:07 Weight - Most Recent: 164 lb I&O - Last 24 Hours: Intake & Output 12/14/19 12/15/19 12/15/19 22:59 06:59 14:59 Intake Total 250 800 Output Total 2475 130 900 Balance -2475 120 -100 Lab Results Last 24 Hours: Laboratory Results - last 24 hr 12/15/19 12/15/19 Range/Units 05:30 05:30 WBC 2.7 L (4.5-11.0) K/uL RBC 3.17 L (3.30-5.50) M/uL Hgb 10.4 L (12.0-15.0) g/dL Hct 31.3 L (36.0-48.0) % MCV 99 H (80-98) fL MCH 33 H (27-31) pg MCHC 33 (32-36) % Plt Count 91 L (150-400) K/uL Neut % (Auto) 47 (36-66) % Lymph % (Auto) 45 H (24-44) % [place] % (Auto) 9 H (2-6) % Eos % (Auto) 0 L (2-4) % Baso % (Auto) 0 (0-1) % Sodium 139 L (140-148) mmol/L Potassium 4.7 (3.6-5.2) mmol/L Chloride 105 (100-108) mmol/L Carbon Dioxide 25 (21-32) mmol/L Anion Gap 13.7 (5.0-14.0) mmol/L BUN 12 (7-18) mg/dL Creatinine 1.2 H (0.6-1.0) mg/dL Est Cr Clr Drug Dosing 49.39 mL/min Estimated GFR (MDRD) 46 L (>60) Glucose 108 H (74-106) mg/dL Calcium 9.0 (8.5-10.1) mg/dL Eliud Results Last 24 Hours: Microbiology 12/13/19 16:03 Stool Culture - Preliminary Stool / Feces NORMAL ENTERIC [place] 1 DAY Shiga Toxin I - Final NEGATIVE FOR SHIGA TOXIN 1 Shiga Toxin II - Final NEGATIVE FOR SHIGA TOXIN 2 REFERENCE RANGE: NEGATIVE Clostridioides difficile (PCR) - Final Med Orders - Current: Current Medications Acetaminophen (Tylenol) 650 mg PO Q4H PRN PRN Reason: Pain (Mild 1-3)/fever Last Admin: 12/15/19 07:05 Dose: 650 mg Documented by: Lipase/Protease/Amylase (Gus Greer 12,000 Units) 2 cap PO TIDMEALS [facility] Last Admin: 12/15/19 08:43 Dose: 2 cap Documented by: Cyanocobalamin (Vitamin B12) 1,000 mcg IM Q30D [facility] Diphenoxylate HCl/Atropine (Lomotil 0.025-2.5 Mg) 2 tab PO Q6H [facility] Last Admin: 12/15/19 04:00 Dose: 2 tab Documented by: Enoxaparin Sodium (Lovenox) 40 mg SUBCUT Q24H [facility] Last Admin: 12/14/19 14:07 Dose: 40 mg Documented by: Heparin Sodium (Porcine) (Heparin Lock Flush 100 Units/Ml) 500 units 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 Last Admin: 12/15/19 05:37 Dose: 500 units Documented by: Hydromorphone HCl (Dilaudid) 2 mg PO Q3H PRN PRN Reason: Pain Last Admin: 12/15/19 07:05 Dose: 2 mg Documented by: Sodium Chloride (Normal Saline) 1,000 mls @ 100 mls/hr IV ASDIRECTED [facility] Lactobacillus Rhamnosus (Culturelle) 1 cap PO BID [facility] Last Admin: 12/15/19 08:45 Dose: 1 cap Documented by: Loperamide HCl (Imodium) 4 mg PO QID PRN PRN Reason: Diarrhea Last Admin: 12/14/19 08:12 Dose: 4 mg Documented by: Magnesium Oxide (Magnesium Oxide) 400 mg PO TID [facility] Last Admin: 12/15/19 08:45 Dose: 400 mg Documented by: Melatonin (Melatonin) 9 mg PO BEDTIME [facility] Last Admin: 12/14/19 21:47 Dose: Not Given Documented by: Multivitamins/Iron (Child Chew Iron) 1 tab PO DAILY [facility] Last Admin: 12/15/19 08:44 Dose: Not Given Documented by: Imipramine 100mg (Caps Own Med ) 2 each PO BEDTIME [facility] Last Admin: 12/14/19 21:47 Dose: 2 each Documented by: Ondansetron HCl (Zofran Odt) 4 mg PO Q4H PRN PRN Reason: Other Duloxetine 60 Mg Cap (Pom) 0 each PO DAILY [facility] Last Admin: 12/15/19 08:46 Dose: 1 each Documented by: Potassium Chloride (Klor-Con M20) 20 meq PO BIDMEALS [facility] Last Admin: 12/15/19 08:49 Dose: 20 meq Documented by: Psyllium Husk (Metamucil Fiber Wafer) 2 each PO TID [facility] Last Admin: 12/15/19 08:46 Dose: 2 each Documented by: Sodium Chloride (Saline Flush) 10 ml FLUSH ASDIRECTED PRN PRN Reason: Keep Vein Open Sumatriptan Succinate (Imitrex) 50 mg PO Q24H PRN PRN Reason: Migraine Tizanidine HCl (Zanaflex) 4 mg PO BID PRN PRN Reason: cramps Last Admin: 12/15/19 07:06 Dose: 4 mg Documented by: Discontinued Medications Hydromorphone HCl (Dilaudid) 0.5 mg IVPUSH ONETIME ONE Stop: 12/13/19 08:24 Last Admin: 12/13/19 08:34 Dose: 0.5 mg Documented by: Hydromorphone HCl (Dilaudid) 0.5 mg IVPUSH ONETIME ONE Stop: 12/13/19 09:56 Last Admin: 12/13/19 09:59 Dose: 0.5 mg Documented by: Sodium Chloride (Normal Saline) 1,000 mls @ 1,000 mls/hr IV ASDIRECTED [facility] Last Admin: 12/13/19 11:25 Dose: 1,000 mls/hr Documented by: Sodium Chloride (Normal Saline) 77 mls @ 3.5 mls/sec IV ASDIRECTED [facility] Last Admin: 12/13/19 10:11 Dose: 3.5 mls/sec Documented by: Magnesium Sulfate 2 gm/ Premix 50 mls @ 50 mls/hr IV Q1H [facility] Stop: 12/13/19 13:29 Last Admin: 12/13/19 12:43 Dose: 50 mls/hr Documented by: Sodium Chloride (Normal Saline) 1,000 mls @ 1,000 mls/hr IV ASDIRECTED [facility] Sodium Chloride (Normal Saline) 1,000 mls @ 125 mls/hr IV ASDIRECTED [facility] Last Admin: 12/14/19 03:08 Dose: 125 mls/hr Documented by: Magnesium Sulfate 2 gm/ Premix 50 mls @ 25 mls/hr IV Q6H [facility] Stop: 12/14/19 09:59 Last Admin: 12/14/19 08:14 Dose: 25 mls/hr Documented by: Imipramine HCl (Imipramine Hcl) 200 mg PO BEDTIME [facility] Last Admin: 12/14/19 01:05 Dose: Not Given Documented by: Iopamidol (Isovue-300 (61%)) 111 ml IV ONETIME ONE Stop: 12/13/19 09:54 Last Admin: 12/13/19 10:11 Dose: 111 ml Documented by: Loperamide HCl (Imodium) 4 mg PO Q4H [facility] Last Admin: 12/14/19 02:57 Dose: Not Given Documented by: Tizanidine HCl (Zanaflex) 4 mg PO BID PRN PRN Reason: cramps - Exam Quality Assessment: DVT Prophylaxis General: Alert, Oriented, Cooperative, Mild Distress Lungs: Clear to Auscultation, Normal Respiratory Effort Cardiovascular: Regular Rate, Regular Rhythm, No Murmurs GI/Abdominal Exam: Soft, No Organomegaly, Tender. No: Distended, Guarding, Rigid, Rebound Extremities: Non-Tender, No Pedal Edema Sepsis Event Note - Evaluation Sepsis Screening Result: No Definite Risk - Focused Exam Vital Signs: Vital Signs Temp Pulse Resp BP Pulse Ox 12/15/19 07:07 97.0 F 66 16 130/57 L 99 12/15/19 03:58 96.0 F L 65 16 100/52 L 98 12/15/19 00:00 96.7 F L 67 16 110/50 L 98 - Problem List Review Problem List Initiated/Reviewed/Updated: Yes - My Orders Last 24 Hours: My Active Orders 12/14/19 09:00 Multivitamins with Iron [Child Chew Iron] 1 tab PO DAILY Patient's Own Medication [Ptom] 0 each PO DAILY 12/14/19 10:28 Heparin Sodium [Heparin Lock Flush 100 Units/ML] 500 units FLUSH ASDIRECTED PRN 12/14/19 21:00 Non-Formulary Medication [NF Drug] 2 each PO BEDTIME 12/15/19 09:28 Patient Status [ADT] Routine 12/15/19 09:30 Sodium Chloride 0.9% @ 100 MLS/HR(1000ml) Sodium Chloride 0.9% [Normal Saline] 1,000 ml IV ASDIRECTED 12/16/19 05:00 BASIC METABOLIC PANEL,BMP [CHEM] Timed CBC WITH AUTO DIFF [HEME] Timed MAGNESIUM [CHEM] Timed 12/19/19 10:00 Cyanocobalamin (Vitamin B12) [Vitamin B12] 1,000 mcg IM Q30D - Plan Plan:: ASSESSMENT AND PLAN DIARRHEA/HIGH OSTOMY OUTPUT-symptoms of weakness and associated abdominal pain. The output has increased over the last 24 hours with very liquid output -Continue current therapy with Lomotil and Imodium -Banana flakes -Because of high ostomy output restarted IV fluids, normal saline 100 cc/h OPEN ABDOMINAL WOUND-small open area on the upper aspect of her abdominal wound -Continue current management and wound care HYPOMAGNESEMIA-resolved -Reassess magnesium level in a.m. PANCYTOPENIA-recurrent, often present during previous admissions. Levels have mildly improved over the last 24 hours, no severe anemia so far -Reassess CBC in a.m. MAINTENANCE ISSUES -DVT prophylaxis; Lovenox 40 mg subcu daily -GI prophylaxis; continue outpatient PPI therapy -Law catheter; not indicated -Nutrition; regular diet -Nicotine dependence; not required CODE STATUS-FULL CODE ADMISSION STATUS-patient will be admitted to observation status, expect no more than 48-hour hospitalization for management of current problems. DISPOSITION-anticipate discharge to home after the hospital stay. PRIMARY CARE PROVIDER-Dr. Gerber
[2019-12-15] MEDS: Sodium Chloride 0.9% 1,000 ML IV SCH ×2 (10:00→19:08)
[2019-12-15] MEDS: LOPERAMIDE 2 MG PO PRN ×2 (10:00→15:15)
[2019-12-15] MEDS: Enoxaparin 40 MG/0.4 ML Syringe SUBCUT SCH (13:13)
[2019-12-15] MEDS: IMIPRAMINE PO SCH (21:03)
[2019-12-15] MEDS: Melatonin 3 MG Tab PO SCH (21:06)
[2019-12-16] MEDS: Acetaminophen 325 MG Tab PO PRN ×4 (01:19→20:48)
[2019-12-16] MEDS: HYDROmorphone 2 MG Tab PO PRN ×7 (01:19→20:47)
[2019-12-16] MEDS: DIPHENOXYLATE PO SCH ×4 (04:25→21:00)
[2019-12-16] MEDS: ATROPINE PO SCH ×4 (04:25→21:00)
[2019-12-16] MEDS: Sodium Chloride 0.9% 1,000 ML IV SCH ×2 (04:28→20:55)
[2019-12-16] MEDS: TIZANIDINE 2 MG PO PRN (07:25)
[2019-12-16] MEDS: AMYLASE PO SCH ×3 (07:29→17:22)
[2019-12-16] MEDS: Potassium Chloride 20 MEQ Tab.ER PO SCH ×2 (07:29→17:22)
[2019-12-16] MEDS: LIPASE PO SCH ×3 (07:29→17:22)
[2019-12-16] MEDS: PROTEASE PO SCH ×3 (07:29→17:22)
[2019-12-16] MEDS: [UNRECOGNIZED DRUG - OTHER] PO SCH ×3 (09:01→20:50)
[2019-12-16] MEDS: MAGNESIUM OXIDE 400 MG PO SCH ×3 (09:03→20:50)
[2019-12-16] MEDS: DULOXETINE 60 MG PO SCH (09:03)
[2019-12-16] MEDS: LACTOBACILLUS RHAMNOSUS GG PO SCH ×2 (09:04→20:49)
[2019-12-16] MEDS: Multivitamins with Iron Tab.Chew PO SCH (09:05)
--- NOTE | 2019-12-16 10:42 | PCM.PN ---
- General Info Date of Service: 12/16/19 Subjective Update: No acute issues overnight. Abdominal pain is a little better today. Appetite is a little better. No fevers. Ostomy output seemed more thick last night but is back to water today. Magnesium a little low today. Up and walking around. Functional Status: Reports: Pain Controlled, Tolerating Diet - Review of Systems General: Denies: Fever Gastrointestinal: Reports: Abdominal Pain - Patient Data Vitals - Most Recent: Last Vital Signs Temp 36.9 C 12/16/19 10:02 Pulse 95 12/16/19 10:02 Resp 18 12/16/19 10:02 BP 133/70 12/16/19 10:02 Pulse Ox 98 12/16/19 10:02 Weight - Most Recent: 75.296 kg I&O - Last 24 Hours: Intake & Output 12/15/19 12/16/19 12/16/19 22:59 06:59 14:59 Intake Total 785 1658 760 Output Total 1570 1500 525 Balance -785 158 235 Lab Results Last 24 Hours: Laboratory Results - last 24 hr 12/16/19 12/16/19 Range/Units 04:05 04:05 WBC 2.9 L (4.5-11.0) K/uL RBC 3.19 L (3.30-5.50) M/uL Hgb 10.2 L (12.0-15.0) g/dL Hct 31.2 L (36.0-48.0) % MCV 98 (80-98) fL MCH 32 H (27-31) pg MCHC 33 (32-36) % Plt Count 92 L (150-400) K/uL Neut % (Auto) 46 (36-66) % Lymph % (Auto) 46 H (24-44) % [place] % (Auto) 9 H (2-6) % Eos % (Auto) 0 L (2-4) % Baso % (Auto) 0 (0-1) % Sodium 139 L (140-148) mmol/L Potassium 4.9 (3.6-5.2) mmol/L Chloride 106 (100-108) mmol/L Carbon Dioxide 22 (21-32) mmol/L Anion Gap 15.9 H (5.0-14.0) mmol/L BUN 12 (7-18) mg/dL Creatinine 1.1 H (0.6-1.0) mg/dL Est Cr Clr Drug Dosing 53.88 mL/min Estimated GFR (MDRD) 51 L (>60) Glucose 96 (74-106) mg/dL Calcium 8.7 (8.5-10.1) mg/dL Magnesium 1.5 L D (1.8-2.4) mg/dL Eliud Results Last 24 Hours: Microbiology 12/13/19 16:03 Stool Culture - Preliminary Stool / Feces NORMAL ENTERIC [place] 2 DAYS Shiga Toxin I - Final NEGATIVE FOR SHIGA TOXIN 1 Shiga Toxin II - Final NEGATIVE FOR SHIGA TOXIN 2 REFERENCE RANGE: NEGATIVE Clostridioides difficile (PCR) - Final Med Orders - Current: Current Medications Acetaminophen (Tylenol) 650 mg PO Q4H PRN PRN Reason: Pain (Mild 1-3)/fever Last Admin: 12/16/19 07:22 Dose: 650 mg Documented by: Lipase/Protease/Amylase ([place] Dr 12,000 Units) 2 cap PO TIDMEALS [facility] Last Admin: 12/16/19 07:29 Dose: 2 cap Documented by: Cyanocobalamin (Vitamin B12) 1,000 mcg IM Q30D [facility] Diphenoxylate HCl/Atropine (Lomotil 0.025-2.5 Mg) 2 tab PO Q6H [facility] Last Admin: 12/16/19 09:02 Dose: 2 tab Documented by: Enoxaparin Sodium (Lovenox) 40 mg SUBCUT Q24H [facility] Last Admin: 12/15/19 13:13 Dose: 40 mg Documented by: Heparin Sodium (Porcine) (Heparin Lock Flush 100 Units/Ml) 500 units 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 Last Admin: 12/15/19 05:37 Dose: 500 units Documented by: Hydromorphone HCl (Dilaudid) 2 mg PO Q3H PRN PRN Reason: Pain Last Admin: 12/16/19 10:36 Dose: 2 mg Documented by: Sodium Chloride (Normal Saline) 1,000 mls @ 100 mls/hr IV ASDIRECTED [facility] Last Admin: 12/16/19 04:28 Dose: 100 mls/hr Documented by: Lactobacillus Rhamnosus (Culturelle) 1 cap PO BID [facility] Last Admin: 12/16/19 09:04 Dose: 1 cap Documented by: Loperamide HCl (Imodium) 4 mg PO QID PRN PRN Reason: Diarrhea Last Admin: 12/15/19 15:15 Dose: 4 mg Documented by: Magnesium Oxide (Magnesium Oxide) 400 mg PO TID [facility] Last Admin: 12/16/19 09:03 Dose: 400 mg Documented by: Melatonin (Melatonin) 9 mg PO BEDTIME [facility] Last Admin: 12/15/19 21:06 Dose: 9 mg Documented by: Multivitamins/Iron (Child Chew Iron) 1 tab PO DAILY [facility] Last Admin: 12/16/19 09:05 Dose: Not Given Documented by: Imipramine 100mg (Caps Own Med ) 2 each PO BEDTIME [facility] Last Admin: 12/15/19 21:03 Dose: 2 each Documented by: Ondansetron HCl (Zofran Odt) 4 mg PO Q4H PRN PRN Reason: Other Duloxetine 60 Mg Cap (Pom) 0 each PO DAILY [facility] Last Admin: 12/16/19 09:03 Dose: 1 each Documented by: Potassium Chloride (Klor-Con M20) 20 meq PO BIDMEALS [facility] Last Admin: 12/16/19 07:29 Dose: 20 meq Documented by: Psyllium Husk (Metamucil Fiber Wafer) 2 each PO TID [facility] Last Admin: 12/16/19 09:01 Dose: 2 each Documented by: Sodium Chloride (Saline Flush) 10 ml FLUSH ASDIRECTED PRN PRN Reason: Keep Vein Open Sumatriptan Succinate (Imitrex) 50 mg PO Q24H PRN PRN Reason: Migraine Tizanidine HCl (Zanaflex) 4 mg PO BID PRN PRN Reason: cramps Last Admin: 12/16/19 07:25 Dose: 4 mg Documented by: Discontinued Medications Hydromorphone HCl (Dilaudid) 0.5 mg IVPUSH ONETIME ONE Stop: 12/13/19 08:24 Last Admin: 12/13/19 08:34 Dose: 0.5 mg Documented by: Hydromorphone HCl (Dilaudid) 0.5 mg IVPUSH ONETIME ONE Stop: 12/13/19 09:56 Last Admin: 12/13/19 09:59 Dose: 0.5 mg Documented by: Sodium Chloride (Normal Saline) 1,000 mls @ 1,000 mls/hr IV ASDIRECTED [facility] Last Admin: 12/13/19 11:25 Dose: 1,000 mls/hr Documented by: Sodium Chloride (Normal Saline) 77 mls @ 3.5 mls/sec IV ASDIRECTED [facility] Last Admin: 12/13/19 10:11 Dose: 3.5 mls/sec Documented by: Magnesium Sulfate 2 gm/ Premix 50 mls @ 50 mls/hr IV Q1H [facility] Stop: 12/13/19 13:29 Last Admin: 12/13/19 12:43 Dose: 50 mls/hr Documented by: Sodium Chloride (Normal Saline) 1,000 mls @ 1,000 mls/hr IV ASDIRECTED [facility] Sodium Chloride (Normal Saline) 1,000 mls @ 125 mls/hr IV ASDIRECTED [facility] Last Admin: 12/14/19 03:08 Dose: 125 mls/hr Documented by: Magnesium Sulfate 2 gm/ Premix 50 mls @ 25 mls/hr IV Q6H [facility] Stop: 12/14/19 09:59 Last Admin: 12/14/19 08:14 Dose: 25 mls/hr Documented by: Imipramine HCl (Imipramine Hcl) 200 mg PO BEDTIME [facility] Last Admin: 12/14/19 01:05 Dose: Not Given Documented by: Iopamidol (Isovue-300 (61%)) 111 ml IV ONETIME ONE Stop: 12/13/19 09:54 Last Admin: 12/13/19 10:11 Dose: 111 ml Documented by: Loperamide HCl (Imodium) 4 mg PO Q4H [facility] Last Admin: 12/14/19 02:57 Dose: Not Given Documented by: Tizanidine HCl (Zanaflex) 4 mg PO BID PRN PRN Reason: cramps - Exam Quality Assessment: No: Supplemental Oxygen General: Alert, Oriented, Cooperative, No Acute Distress Lungs: Normal Respiratory Effort Cardiovascular: Regular Rate, Regular Rhythm GI/Abdominal Exam: Soft, No Distention Extremities: No Pedal Edema Psy/Mental Status: Alert, Normal Affect Sepsis Event Note - Evaluation Sepsis Screening Result: No Definite Risk - Focused Exam Vital Signs: Vital Signs Temp Pulse Resp BP Pulse Ox 12/16/19 10:02 36.9 C 95 18 133/70 98 12/16/19 07:00 36.4 C 72 18 153/70 H 99 12/16/19 03:00 36.6 C 72 16 145/68 H 99 12/15/19 22:45 36.2 C 58 L 16 105/46 L 98 - Problem List Review Problem List Initiated/Reviewed/Updated: Yes - My Orders Last 24 Hours: My Active Orders 12/16/19 10:45 Magnesium Sulfate/Water [Magnesium Sulfate in Water Premix] 2 gm Premix Bag 1 bag IV Q6H 12/16/19 11:00 Cholestyramine/Sucrose [Cholestyramine Packet] 4 gm PO QID 12/17/19 05:00 BASIC METABOLIC PANEL,BMP [CHEM] Timed CBC W/O DIFF,HEMOGRAM [HEME] Timed (1) - Plan Plan:: ASSESSMENT AND PLAN DIARRHEA/HIGH OSTOMY OUTPUT-symptoms of weakness and associated abdominal pain. The output was better last night but liquid and high output again today. -Continue current therapy with Lomotil and Imodium -trial of cholestyramine QID -Banana flakes -continue gentle fluids OPEN ABDOMINAL WOUND-small open area on the upper aspect of her abdominal wound -Continue current management and wound care HYPOMAGNESEMIA-low again this am. -supplement via IV route PANCYTOPENIA-recurrent, often present during previous admissions. Levels stable. -Reassess CBC in a.m. MAINTENANCE ISSUES -DVT prophylaxis; Lovenox 40 mg subcu daily -GI prophylaxis; continue outpatient PPI therapy -Law catheter; not indicated -Nutrition; regular diet DISPOSITION-anticipate discharge to home after the hospital stay. Rad Pedersen MD
[2019-12-16] MEDS: Cholestyramine/Sucrose Powder 4 GM Packet PO SCH ×4 (12:23→21:01)
[2019-12-16] MEDS: Magnesium Sulfate/Water 2 GM in Premix Bag 1 BAG IV SCH ×3 (12:25→22:21)
[2019-12-16] MEDS: Enoxaparin 40 MG/0.4 ML Syringe SUBCUT SCH (14:11)
[2019-12-16] MEDS: tiZANidine 2 MG Tab PO PRN ×2 (15:11→21:00)
[2019-12-16] MEDS: Melatonin 3 MG Tab PO SCH (20:50)
[2019-12-16] MEDS: IMIPRAMINE PO SCH (20:52)
[2019-12-16] MEDS ORDERED: HYDROmorphone 1 MG/ML Syringe IVPUSH ONE (22:03)
[2019-12-17] MEDS: HYDROmorphone 2 MG Tab PO PRN ×8 (00:56→23:04)
[2019-12-17] MEDS: Acetaminophen 325 MG Tab PO PRN ×4 (00:57→19:59)
[2019-12-17] MEDS: DIPHENOXYLATE PO SCH ×2 (04:00→09:00)
[2019-12-17] MEDS: ATROPINE PO SCH ×2 (04:00→09:00)
[2019-12-17] MEDS: tiZANidine 2 MG Tab PO PRN (04:00)
[2019-12-17] MEDS: Sodium Chloride 0.9% 1,000 ML IV SCH ×3 (04:01→23:06)
[2019-12-17] MEDS: Magnesium Sulfate/Water 2 GM in Premix Bag 1 BAG IV SCH (04:03)
[2019-12-17] MEDS: Cholestyramine/Sucrose Powder 4 GM Packet PO SCH ×5 (06:02→21:06)
[2019-12-17] MEDS: Potassium Chloride 20 MEQ Tab.ER PO SCH ×2 (07:34→16:13)
[2019-12-17] MEDS: LIPASE PO SCH (07:34)
[2019-12-17] MEDS: PROTEASE PO SCH (07:34)
[2019-12-17] MEDS: AMYLASE PO SCH (07:34)
[2019-12-17] MEDS ORDERED: Loperamide 2 MG Cap PO PRN (08:54)
[2019-12-17] MEDS: DULOXETINE 60 MG PO SCH (08:57)
[2019-12-17] MEDS: [UNRECOGNIZED DRUG - OTHER] PO SCH (08:57)
[2019-12-17] MEDS: Multivitamins with Iron Tab.Chew PO SCH (08:58)
[2019-12-17] MEDS: MAGNESIUM OXIDE 400 MG PO SCH (08:58)
[2019-12-17] MEDS: LACTOBACILLUS RHAMNOSUS GG PO SCH (08:58)
[2019-12-17] MEDS: Atropine/Diphenoxylate 0.025-2.5 MG Tab PO SCH ×3 (09:10→21:11)
--- NOTE | 2019-12-17 10:08 | PCM.PN ---
- General Info Date of Service: 12/17/19 Subjective Update: Patient did report an increase in her pain overnight but otherwise no acute events. Abdominal pain is slightly better today. Stool seems to be thickening up slightly with a darker color and is not just water coming out at this time. No fevers. Intake and output was matched fairly well yesterday with the IV fluids. Labs are stable. Functional Status: Reports: Pain Controlled, Tolerating Diet - Review of Systems General: Denies: Fever Gastrointestinal: Reports: Abdominal Pain, Diarrhea - Patient Data Vitals - Most Recent: Last Vital Signs Temp 35 C L 12/17/19 07:36 Pulse 70 12/17/19 07:36 Resp 16 12/17/19 07:36 BP 141/70 H 12/17/19 07:36 Pulse Ox 99 12/17/19 07:36 Weight - Most Recent: 74.752 kg I&O - Last 24 Hours: Intake & Output 12/16/19 12/17/19 12/17/19 22:59 06:59 14:59 Intake Total 3250 1107 Output Total 1875 925 Balance 1375 182 Lab Results Last 24 Hours: Laboratory Results - last 24 hr 12/17/19 12/17/19 Range/Units 04:20 04:20 WBC 3.0 L (4.5-11.0) K/uL RBC 3.41 (3.30-5.50) M/uL Hgb 10.9 L (12.0-15.0) g/dL Hct 33.3 L (36.0-48.0) % MCV 98 (80-98) fL MCH 32 H (27-31) pg MCHC 33 (32-36) % Plt Count 94 L (150-400) K/uL Sodium 139 L (140-148) mmol/L Potassium 4.7 (3.6-5.2) mmol/L Chloride 106 (100-108) mmol/L Carbon Dioxide 23 (21-32) mmol/L Anion Gap 14.7 H (5.0-14.0) mmol/L BUN 12 (7-18) mg/dL Creatinine 1.2 H (0.6-1.0) mg/dL Est Cr Clr Drug Dosing 49.39 mL/min Estimated GFR (MDRD) 46 L (>60) Glucose 90 (74-106) mg/dL Calcium 8.8 (8.5-10.1) mg/dL Eliud Results Last 24 Hours: Microbiology 12/13/19 16:03 Stool Culture - Final Stool / Feces NORMAL ENTERIC CLARY. NO SALMONELLA, SHIGELLA, CAMPYLOBACTER OR E.COLI O157 ISOLATED. Shiga Toxin I - Final NEGATIVE FOR SHIGA TOXIN 1 Shiga Toxin II - Final NEGATIVE FOR SHIGA TOXIN 2 REFERENCE RANGE: NEGATIVE Clostridioides difficile (PCR) - Final Med Orders - Current: Current Medications Acetaminophen (Tylenol) 650 mg PO Q4H PRN PRN Reason: Pain (Mild 1-3)/fever Last Admin: 12/17/19 07:33 Dose: 650 mg Documented by: Lipase/Protease/Amylase (Creon Dr 12,000 Units) 2 cap PO TIDMEALS [facility] Cholestyramine Resin (Cholestyramine Packet) 4 gm PO QID [facility] Last Admin: 12/17/19 09:00 Dose: 4 gm Documented by: Cyanocobalamin (Vitamin B12) 1,000 mcg IM Q30D [facility] Diphenoxylate HCl/Atropine (Lomotil 0.025-2.5 Mg) 2 tab PO Q6H [facility] Last Admin: 12/17/19 09:10 Dose: Not Given Documented by: Duloxetine HCl (Cymbalta) 60 mg PO DAILY [facility] Enoxaparin Sodium (Lovenox) 40 mg SUBCUT Q24H [facility] Last Admin: 12/16/19 14:11 Dose: 40 mg Documented by: Heparin Sodium (Porcine) (Heparin Lock Flush 100 Units/Ml) 500 units FLUSH 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 Last Admin: 12/17/19 04:30 Dose: 500 units Documented by: Hydromorphone HCl (Dilaudid) 2 mg PO Q3H PRN PRN Reason: Pain Last Admin: 12/17/19 07:33 Dose: 2 mg Documented by: Sodium Chloride (Normal Saline) 1,000 mls @ 100 mls/hr IV ASDIRECTED [facility] Last Admin: 12/17/19 04:01 Dose: 100 mls/hr Documented by: Imipramine HCl (Imipramine Hcl) 200 mg PO BEDTIME [facility] Lactobacillus Rhamnosus (Culturelle) 1 cap PO BID [facility] Loperamide HCl (Imodium) 4 mg PO QID PRN PRN Reason: Diarrhea Magnesium Oxide (Magnesium Oxide) 400 mg PO TID [facility] Melatonin (Melatonin) 9 mg PO BEDTIME [facility] Last Admin: 12/16/19 20:50 Dose: 9 mg Documented by: Multivitamins/Iron (Child Chew Iron) 1 tab PO DAILY [facility] Last Admin: 12/17/19 08:58 Dose: 1 tab Documented by: Ondansetron HCl (Zofran Odt) 4 mg PO Q4H PRN PRN Reason: Other Potassium Chloride (Klor-Con M20) 20 meq PO BIDMEALS [facility] Last Admin: 12/17/19 07:34 Dose: 20 meq Documented by: Psyllium Husk (Metamucil Fiber Wafer) 2 each PO TID [facility] Sodium Chloride (Saline Flush) 10 ml FLUSH ASDIRECTED PRN PRN Reason: Keep Vein Open Sumatriptan Succinate (Imitrex) 50 mg PO Q24H PRN PRN Reason: Migraine Tizanidine HCl (Zanaflex) 4 mg PO Q6H PRN PRN Reason: cramps Discontinued Medications Lipase/Protease/Amylase (Gus Dr 12,000 Units) 2 cap PO TIDMEALS [facility] Last Admin: 12/17/19 07:34 Dose: 2 cap Documented by: Diphenoxylate HCl/Atropine (Lomotil 0.025-2.5 Mg) 2 tab PO Q6H [facility] Last Admin: 12/17/19 09:00 Dose: 2 tab Documented by: Hydromorphone HCl (Dilaudid) 0.5 mg IVPUSH ONETIME ONE Stop: 12/13/19 08:24 Last Admin: 12/13/19 08:34 Dose: 0.5 mg Documented by: Hydromorphone HCl (Dilaudid) 0.5 mg IVPUSH ONETIME ONE Stop: 12/13/19 09:56 Last Admin: 12/13/19 09:59 Dose: 0.5 mg Documented by: Hydromorphone HCl (Dilaudid) 1 mg IVPUSH ONETIME ONE Stop: 12/16/19 22:04 Last Admin: 12/16/19 22:13 Dose: 1 mg Documented by: Sodium Chloride (Normal Saline) 1,000 mls @ 1,000 mls/hr IV ASDIRECTED [facility] Last Admin: 12/13/19 11:25 Dose: 1,000 mls/hr Documented by: Sodium Chloride (Normal Saline) 77 mls @ 3.5 mls/sec IV ASDIRECTED [facility] Last Admin: 12/13/19 10:11 Dose: 3.5 mls/sec Documented by: Magnesium Sulfate 2 gm/ Premix 50 mls @ 50 mls/hr IV Q1H [facility] Stop: 12/13/19 13:29 Last Admin: 12/13/19 12:43 Dose: 50 mls/hr Documented by: Sodium Chloride (Normal Saline) 1,000 mls @ 1,000 mls/hr IV ASDIRECTED [facility] Sodium Chloride (Normal Saline) 1,000 mls @ 125 mls/hr IV ASDIRECTED [facility] Last Admin: 12/14/19 03:08 Dose: 125 mls/hr Documented by: Magnesium Sulfate 2 gm/ Premix 50 mls @ 25 mls/hr IV Q6H [facility] Stop: 12/14/19 09:59 Last Admin: 12/14/19 08:14 Dose: 25 mls/hr Documented by: Magnesium Sulfate 2 gm/ Premix 50 mls @ 25 mls/hr IV Q6H [facility] Stop: 12/17/19 06:59 Last Admin: 12/17/19 04:03 Dose: 25 mls/hr Documented by: Imipramine HCl (Imipramine Hcl) 200 mg PO BEDTIME [facility] Last Admin: 12/14/19 01:05 Dose: Not Given Documented by: Iopamidol (Isovue-300 (61%)) 111 ml IV ONETIME ONE Stop: 12/13/19 09:54 Last Admin: 12/13/19 10:11 Dose: 111 ml Documented by: Lactobacillus Rhamnosus (Culturelle) 1 cap PO BID [facility] Stop: 12/17/19 09:10 Last Admin: 12/17/19 08:58 Dose: 1 cap Documented by: Loperamide HCl (Imodium) 4 mg PO Q4H [facility] Last Admin: 12/14/19 02:57 Dose: Not Given Documented by: Loperamide HCl (Imodium) 4 mg PO QID PRN PRN Reason: Diarrhea Last Admin: 12/15/19 15:15 Dose: 4 mg Documented by: Magnesium Oxide (Magnesium Oxide) 400 mg PO TID [facility] Stop: 12/17/19 09:10 Last Admin: 12/17/19 08:58 Dose: 400 mg Documented by: Imipramine 100mg (Caps Own Med ) 2 each PO BEDTIME [facility] Last Admin: 12/16/19 20:52 Dose: 2 each Documented by: Duloxetine 60 Mg Cap (Pom) 0 each PO DAILY [facility] Stop: 12/17/19 09:10 Last Admin: 12/17/19 08:57 Dose: 1 each Documented by: Psyllium Husk (Metamucil Fiber Wafer) 2 each PO TID [facility] Last Admin: 12/17/19 08:57 Dose: 2 each Documented by: Tizanidine HCl (Zanaflex) 4 mg PO BID PRN PRN Reason: cramps Tizanidine HCl (Zanaflex) 4 mg PO BID PRN PRN Reason: cramps Last Admin: 12/16/19 07:25 Dose: 4 mg Documented by: Tizanidine HCl (Zanaflex) 4 mg PO Q6H PRN PRN Reason: cramps Last Admin: 12/17/19 04:00 Dose: 4 mg Documented by: - Exam Quality Assessment: No: Supplemental Oxygen General: Alert, Oriented, Cooperative, No Acute Distress Lungs: Normal Respiratory Effort GI/Abdominal Exam: Soft, No Distention Back Exam: CVA Tenderness (L) Skin: Warm, Dry Psy/Mental Status: Alert, Normal Affect Sepsis Event Note - Evaluation Sepsis Screening Result: No Definite Risk - Focused Exam Vital Signs: Vital Signs Temp Pulse Resp BP Pulse Ox 12/17/19 07:36 35 C L 70 16 141/70 H 99 12/17/19 04:04 36.5 C 68 16 152/61 H 99 12/16/19 22:18 36.0 C L 77 18 136/51 L 98 - Problem List Review Problem List Initiated/Reviewed/Updated: Yes - My Orders Last 24 Hours: My Active Orders 12/16/19 11:00 Cholestyramine/Sucrose [Cholestyramine Packet] 4 gm PO QID 12/17/19 09:01 tiZANidine [Zanaflex] 4 mg PO Q6H PRN 12/18/19 05:00 BASIC METABOLIC PANEL,BMP [CHEM] Timed CBC W/O DIFF,HEMOGRAM [HEME] Timed (1) - Plan Plan:: ASSESSMENT AND PLAN DIARRHEA/HIGH OSTOMY OUTPUT-output remains elevated but seems to be thickening up and hopefully we are turning the corner. Abdominal pain persists but is a little bit better today. No fevers. -Continue current therapy with Lomotil and Imodium -trial of cholestyramine QID -Banana flakes -continue gentle fluids OPEN ABDOMINAL WOUND-small open area on the upper aspect of her abdominal wound -Continue current management and wound care HYPOMAGNESEMIA-low again yesterday and she did receive supplementation. PANCYTOPENIA-recurrent, often present during previous admissions. Levels stable. -Reassess CBC in a.m. MAINTENANCE ISSUES -DVT prophylaxis; Lovenox 40 mg subcu daily -GI prophylaxis; continue outpatient PPI therapy -Law catheter; not indicated -Nutrition; regular diet DISPOSITION-anticipate discharge to home after the hospital stay. Rad Pedersen MD
[2019-12-17] MEDS: tiZANidine 4 MG Tab PO PRN ×2 (10:36→19:51)
[2019-12-17] MEDS: Amylase/Lipase/Protease 12,000 Unit Cap.CR PO SCH ×2 (12:04→16:13)
[2019-12-17] MEDS: Magnesium Oxide 400 MG Tab PO SCH ×3 (13:28→20:01)
[2019-12-17] MEDS: Psyllium Seed (With Sugar) Wafer PO SCH ×3 (13:28→20:01)
[2019-12-17] MEDS: Enoxaparin 40 MG/0.4 ML Syringe SUBCUT SCH (13:29)
[2019-12-17] MEDS: Lactobacillus Rhamnosus GG (Probiotic) Cap PO SCH ×2 (19:50→20:01)
[2019-12-17] MEDS: Melatonin 3 MG Tab PO SCH (21:10)
[2019-12-18] MEDS: HYDROmorphone 2 MG Tab PO PRN ×5 (02:36→14:39)
[2019-12-18] MEDS: tiZANidine 4 MG Tab PO PRN ×2 (05:24→11:51)
[2019-12-18] MEDS: Atropine/Diphenoxylate 0.025-2.5 MG Tab PO SCH ×3 (05:25→17:06)
[2019-12-18] MEDS: Cholestyramine/Sucrose Powder 4 GM Packet PO SCH ×3 (05:27→17:14)
[2019-12-18] MEDS: Potassium Chloride 20 MEQ Tab.ER PO SCH ×2 (07:44→17:06)
[2019-12-18] MEDS: Amylase/Lipase/Protease 12,000 Unit Cap.CR PO SCH ×3 (07:44→17:06)
[2019-12-18] MEDS: Magnesium Oxide 400 MG Tab PO SCH ×2 (08:40→14:40)
[2019-12-18] MEDS: Lactobacillus Rhamnosus GG (Probiotic) Cap PO SCH (08:40)
[2019-12-18] MEDS: Multivitamins with Iron Tab.Chew PO SCH (08:40)
[2019-12-18] MEDS: Psyllium Seed (With Sugar) Wafer PO SCH ×2 (08:41→14:38)
[2019-12-18] MEDS ORDERED: DULoxetine 30 MG Cap PO SCH (09:00)
--- NOTE | 2019-12-18 11:38 | PCM.DCSUM1 ---
Discharge Summary - Hospital Course Brief History: 59-year-old female with history of Crohn's disease with multiple complications and surgeries including colectomy with ileostomy formation who presented with high output from her ostomy and was admitted for management of significant dehydration, abdominal pain and weakness because of the high output. Diagnosis: Stroke: No - Discharge Data Discharge Date: 12/18/19 Discharge Disposition: Home, Self-Care 01 Condition: Fair - Referral to Home Health Primary Care Physician: Lisa Gerber MD - Discharge Diagnosis/Problem(s) (1) High output ileostomy SNOMED Code(s): 794701611 ICD Code: R19.8 - OT SYMPTOMS AND SIGNS INVOLVING THE DGSTV SYS AND ABDOMEN; Z93.2 - ILEOSTOMY STATUS Status: Acute Current Visit: Yes (2) Dehydration SNOMED Code(s): 14880754 ICD Code: E86.0 - DEHYDRATION Status: Acute Current Visit: No (3) Abdominal pain SNOMED Code(s): 20339374 ICD Code: R10.9 - UNSPECIFIED ABDOMINAL PAIN Status: Acute Current Visit: No Qualifiers: Abdominal location: upper abdomen, unspecified Qualified Code(s): R10.10 - Upper abdominal pain, unspecified (4) Hypomagnesemia SNOMED Code(s): 444992521 ICD Code: E83.42 - HYPOMAGNESEMIA Status: Acute Current Visit: No (5) Pancytopenia SNOMED Code(s): 174418469 ICD Code: D61.818 - OTHER PANCYTOPENIA Status: Acute Current Visit: Yes (6) CKD (chronic kidney disease), stage III SNOMED Code(s): 369776984 ICD Code: N18.3 - CHRONIC KIDNEY DISEASE, STAGE 3 (MODERATE) Status: Chronic Current Visit: No (7) Crohn's disease SNOMED Code(s): 89538824 ICD Code: K50.90 - CROHN'S DISEASE, UNSPECIFIED, WITHOUT COMPLICATIONS Status: Chronic Current Visit: No Qualifiers: Gastrointestinal tract location: unspecified location Digestive disease complication type: other complication Qualified Code(s): K50.918 - Crohn's disease, unspecified, with other complication - Patient Summary/Data Hospital Course: Aline presented to the emergency room with progressive increase in output from her ileostomy as well as weakness, dehydration and acute on chronic abdominal pain. Work-up in the emergency room was fairly unremarkable including labs and a CT scan of the abdomen and pelvis. There was some evidence for dehydration and she was not thought to be safe for outpatient management. She was admitted to the hospital with IV fluids and symptom management. We did add banana flakes to her home regimen to reduce the output from her ostomy. Over the next couple of days things remained stable but she continued to have high output. Her abdominal pain was stable but not back to baseline. In addition to the banana flakes we added cholestyramine and this did seem to provide a difference for decreasing her ostomy output and helping it to be thicker. Her kidney function has remained stable throughout the course of the hospital stay. She was managed with IV fluids for much of the stay because of the high output of about 5 L of fluid per day. Her abdominal pain seems to be slowly improving. She has not had any fevers. Stool studies were all unremarkable. Her magnesium was low and this was supplemented throughout the course of the hospital stay. We did see a mild pancytopenia which is common during her hospitalizations. Her hemoglobin level remained above 10 the entire time and platelets were only slightly below 100. All of these levels have been trending up at the time of discharge. Seem to be heading in the right direction with all the changes to her bowel regimen. These are all outlined in the medication section. She feels well enough and comfortable going home at this time. She does have IV fluids available to her as an outpatient. She was interested in outpatient magnesium infusions and was hoping to do these at home and this has been coordinated through home health care. She has early follow-up scheduled with primary care. - Patient Instructions Diet: Usual Diet as Tolerated Activity: As Tolerated Driving: Do Not Drive (If taking pain pills) Showering/Bathing: May Shower Notify Provider of: Fever, Increased Pain, Nausea and/or Vomiting Other/Special Instructions: 1. You were in the hospital for management of a high output ileostomy which led to dehydration, abdominal pain and weakness. Your condition has been improving with the addition of cholestyramine to your regimen. You should continue to take the cholestyramine 4 times daily along with banana flakes 3-4 times daily. These are in addition to the probiotic, Lomotil, Imodium, and fiber wafers that you have been taking. 2. Continue your other home medications as previously prescribed. 3. You should continue your outpatient IV fluids as previously prescribed. We have completed paperwork for outpatient magnesium infusions which you will receive weekly. You should have your magnesium level checked prior to administration of the magnesium. - Discharge Plan *PRESCRIPTION DRUG MONITORING PROGRAM REVIEWED*: Not Applicable *COPY OF PRESCRIPTION DRUG MONITORING REPORT IN PATIENT MYLA: Not Applicable Prescriptions/Med Rec: Cholestyramine/Sucrose [Cholestyramine] 4 gm PO QID #120 packet HYDROmorphone [Dilaudid] 2 - 4 mg PO Q4H PRN #25 tablet PRN Reason: Pain Home Medications: Home Meds Acetaminophen [Acetaminophen Extra Strength] 1,000 mg PO Q4HR PRN 06/17/19 [History] Cyanocobalamin (Vitamin B-12) [Cyanocobalamin Injection] 1 ml IM ASDIRECTED 06/17/19 [History] Imipramine HCl 200 mg PO BEDTIME 06/17/19 [History] Nystatin [Nystatin Oint] 1 dose TOP BID PRN 06/17/19 [History] Ondansetron [Zofran ODT] 4 mg PO Q4HR PRN 06/17/19 [History] Pedi Multivit No.25/Folic Acid [Flintstones Multivit Chew Tab] 1 tab PO DAILY 06/17/19 [History] SUMAtriptan [Imitrex] 50 mg PO BTNUNITS PRN 06/17/19 [History] tiZANidine [Zanaflex] 4 mg PO BID PRN 06/17/19 [History] Amylase/Lipase/Protease [Creon DR 12,000 Units] 2 cap PO TIDMEALS #180 cap.cr 09/16/19 [Rx] DULoxetine [Cymbalta] 60 mg PO DAILY cap 09/16/19 [Rx] Lactobacillus Rhamnosus GG [Culturelle] 1 cap PO BID #60 cap 09/16/19 [Rx] Loperamide [Imodium] 4 mg PO Q4H #100 cap 09/16/19 [Rx] Melatonin 9 mg PO BEDTIME tablet 09/16/19 [Rx] traMADol [Ultram] 100 mg PO Q4H PRN tablet 09/16/19 [Rx] Atropine/Diphenoxylate [Diphenoxylate-Atropine] 2 tab PO Q6H 10/22/19 [History] Magnesium Oxide 400 mg PO TID 10/22/19 [History] Potassium Chloride 20 meq PO BID 10/22/19 [History] Psyllium Seed (With Sugar) [Metamucil Fiber Wafer] 2 each PO TID #180 wafer 11/01/19 [Rx] Cholestyramine/Sucrose [Cholestyramine] 4 gm PO QID #120 packet 12/18/19 [Rx] HYDROmorphone [Dilaudid] 2 - 4 mg PO Q4H PRN #25 tablet 12/18/19 [Rx] Oxygen Therapy Mode: Room Air Patient Handouts: Dehydration, Adult Referrals: Lisa Gerber MD [Primary Care Provider] - 12/30/19 9:40 am (1 week -follow-up hospital stay for high output ileostomy with dehydration Appointment with Dr. Gerber is a virtual appointment. Please check in through your My Chart 15 minutes early.) - Discharge Summary/Plan Comment DC Time >30 min.: Yes (45-coordinating outpatient infusions) - Patient Data Vitals - Most Recent: Last Vital Signs Temp 34.8 C L 12/18/19 10:34 Pulse 84 12/18/19 10:34 Resp 18 12/18/19 10:34 BP 119/84 12/18/19 10:34 Pulse Ox 100 12/18/19 10:34 Weight - Most Recent: 74.661 kg I&O - Last 24 hours: Intake & Output 12/17/19 12/18/19 12/18/19 22:59 06:59 14:59 Intake Total 3039 660 Output Total 2140 157 925 Balance 579 -0544 -995 Lab Results - Last 24 hrs: Laboratory Results - last 24 hr 12/18/19 12/18/19 Range/Units 04:00 04:00 WBC 3.4 L (4.5-11.0) K/uL RBC 3.50 (3.30-5.50) M/uL Hgb 10.9 L (12.0-15.0) g/dL Hct 34.6 L (36.0-48.0) % MCV 99 H (80-98) fL MCH 31 (27-31) pg MCHC 32 (32-36) % Plt Count 100 L (150-400) K/uL Sodium 140 (140-148) mmol/L Potassium 5.1 (3.6-5.2) mmol/L Chloride 107 (100-108) mmol/L Carbon Dioxide 23 (21-32) mmol/L Anion Gap 10.4 (5.0-14.0) mmol/L BUN 12 (7-18) mg/dL Creatinine 1.1 H (0.6-1.0) mg/dL Est Cr Clr Drug Dosing 53.52 mL/min Estimated GFR (MDRD) 51 L (>60) Glucose 86 (74-106) mg/dL Calcium 9.0 (8.5-10.1) mg/dL YANNI Results - Last 24 hrs: Microbiology 12/13/19 16:03 Stool Culture - Final Stool / Feces NORMAL ENTERIC CLARY. NO SALMONELLA, SHIGELLA, CAMPYLOBACTER OR E.COLI O157 ISOLATED. Shiga Toxin I - Final NEGATIVE FOR SHIGA TOXIN 1 Shiga Toxin II - Final NEGATIVE FOR SHIGA TOXIN 2 REFERENCE RANGE: NEGATIVE Clostridioides difficile (PCR) - Final Med Orders - Current: Current Medications Acetaminophen (Tylenol) 650 mg PO Q4H PRN PRN Reason: Pain (Mild 1-3)/fever Last Admin: 12/17/19 19:59 Dose: 650 mg Documented by: Lipase/Protease/Amylase (Cremazin Dr 12,000 Units) 2 cap PO TIDMEALS [facility] Last Admin: 12/18/19 07:44 Dose: 2 cap Documented by: Cholestyramine Resin (Cholestyramine Packet) 4 gm PO QID [facility] Last Admin: 12/18/19 10:39 Dose: 4 gm Documented by: Cyanocobalamin (Vitamin B12) 1,000 mcg IM Q30D [facility] Diphenoxylate HCl/Atropine (Lomotil 0.025-2.5 Mg) 2 tab PO Q6H [facility] Last Admin: 12/18/19 10:39 Dose: 2 tab Documented by: Duloxetine HCl (Cymbalta) 60 mg PO DAILY [facility] Last Admin: 12/18/19 08:42 Dose: 60 mg Documented by: Enoxaparin Sodium (Lovenox) 40 mg SUBCUT Q24H [facility] Last Admin: 12/17/19 13:29 Dose: 40 mg Documented by: Heparin Sodium (Porcine) (Heparin Lock Flush 100 Units/Ml) 500 units 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 Last Admin: 12/18/19 10:55 Dose: 500 units Documented by: Hydromorphone HCl (Dilaudid) 4 mg PO Q3H PRN PRN Reason: Pain Last Admin: 12/18/19 08:39 Dose: 4 mg Documented by: Sodium Chloride (Normal Saline) 1,000 mls @ 100 mls/hr IV ASDIRECTED [facility] Last Admin: 12/17/19 23:06 Dose: 100 mls/hr Documented by: Imipramine HCl (Imipramine Hcl) 200 mg PO BEDTIME [facility] Last Admin: 12/17/19 20:01 Dose: Not Given Documented by: Lactobacillus Rhamnosus (Culturelle) 1 cap PO BID [facility] Last Admin: 12/18/19 08:40 Dose: 1 cap Documented by: Loperamide HCl (Imodium) 4 mg PO QID PRN PRN Reason: Diarrhea Magnesium Oxide (Magnesium Oxide) 400 mg PO TID [facility] Last Admin: 12/18/19 08:40 Dose: 400 mg Documented by: Melatonin (Melatonin) 9 mg PO BEDTIME [facility] Last Admin: 12/17/19 21:10 Dose: 9 mg Documented by: Multivitamins/Iron (Child Chew Iron) 1 tab PO DAILY [facility] Last Admin: 12/18/19 08:40 Dose: 1 tab Documented by: Ondansetron HCl (Zofran Odt) 4 mg PO Q4H PRN PRN Reason: Other Potassium Chloride (Klor-Con M20) 20 meq PO BIDMEALS [facility] Last Admin: 12/18/19 07:44 Dose: 20 meq Documented by: Psyllium Husk (Metamucil Fiber Wafer) 2 each PO TID [facility] Last Admin: 12/18/19 08:41 Dose: 2 each Documented by: Sodium Chloride (Saline Flush) 10 ml FLUSH ASDIRECTED PRN PRN Reason: Keep Vein Open Sumatriptan Succinate (Imitrex) 50 mg PO Q24H PRN PRN Reason: Migraine Tizanidine HCl (Zanaflex) 4 mg PO Q6H PRN PRN Reason: cramps Last Admin: 12/18/19 05:24 Dose: 4 mg Documented by: Discontinued Medications Lipase/Protease/Amylase (Gus Greer 12,000 Units) 2 cap PO TIDMEALS [facility] Last Admin: 12/17/19 07:34 Dose: 2 cap Documented by: Diphenoxylate HCl/Atropine (Lomotil 0.025-2.5 Mg) 2 tab PO Q6H [facility] Last Admin: 12/17/19 09:00 Dose: 2 tab Documented by: Hydromorphone HCl (Dilaudid) 0.5 mg IVPUSH ONETIME ONE Stop: 12/13/19 08:24 Last Admin: 12/13/19 08:34 Dose: 0.5 mg Documented by: Hydromorphone HCl (Dilaudid) 0.5 mg IVPUSH ONETIME ONE Stop: 12/13/19 09:56 Last Admin: 12/13/19 09:59 Dose: 0.5 mg Documented by: Hydromorphone HCl (Dilaudid) 2 mg PO Q3H PRN PRN Reason: Pain Last Admin: 12/17/19 10:36 Dose: 2 mg Documented by: Hydromorphone HCl (Dilaudid) 1 mg IVPUSH ONETIME ONE Stop: 12/16/19 22:04 Last Admin: 12/16/19 22:13 Dose: 1 mg Documented by: Sodium Chloride (Normal Saline) 1,000 mls @ 1,000 mls/hr IV ASDIRECTED [facility] Last Admin: 12/13/19 11:25 Dose: 1,000 mls/hr Documented by: Sodium Chloride (Normal Saline) 77 mls @ 3.5 mls/sec IV ASDIRECTED [facility] Last Admin: 12/13/19 10:11 Dose: 3.5 mls/sec Documented by: Magnesium Sulfate 2 gm/ Premix 50 mls @ 50 mls/hr IV Q1H [facility] Stop: 12/13/19 13:29 Last Admin: 12/13/19 12:43 Dose: 50 mls/hr Documented by: Sodium Chloride (Normal Saline) 1,000 mls @ 1,000 mls/hr IV ASDIRECTED [facility] Sodium Chloride (Normal Saline) 1,000 mls @ 125 mls/hr IV ASDIRECTED [facility] Last Admin: 12/14/19 03:08 Dose: 125 mls/hr Documented by: Magnesium Sulfate 2 gm/ Premix 50 mls @ 25 mls/hr IV Q6H [facility] Stop: 12/14/19 09:59 Last Admin: 12/14/19 08:14 Dose: 25 mls/hr Documented by: Magnesium Sulfate 2 gm/ Premix 50 mls @ 25 mls/hr IV Q6H [facility] Stop: 12/17/19 06:59 Last Admin: 12/17/19 04:03 Dose: 25 mls/hr Documented by: Imipramine HCl (Imipramine Hcl) 200 mg PO BEDTIME [facility] Last Admin: 12/14/19 01:05 Dose: Not Given Documented by: Iopamidol (Isovue-300 (61%)) 111 ml IV ONETIME ONE Stop: 12/13/19 09:54 Last Admin: 12/13/19 10:11 Dose: 111 ml Documented by: Lactobacillus Rhamnosus (Culturelle) 1 cap PO BID [facility] Stop: 12/17/19 09:10 Last Admin: 12/17/19 08:58 Dose: 1 cap Documented by: Loperamide HCl (Imodium) 4 mg PO Q4H [facility] Last Admin: 12/14/19 02:57 Dose: Not Given Documented by: Loperamide HCl (Imodium) 4 mg PO QID PRN PRN Reason: Diarrhea Last Admin: 12/15/19 15:15 Dose: 4 mg Documented by: Magnesium Oxide (Magnesium Oxide) 400 mg PO TID [facility] Stop: 12/17/19 09:10 Last Admin: 12/17/19 08:58 Dose: 400 mg Documented by: Imipramine 100mg (Caps Own Med ) 2 each PO BEDTIME [facility] Last Admin: 12/16/19 20:52 Dose: 2 each Documented by: Duloxetine 60 Mg Cap (Pom) 0 each PO DAILY [facility] Stop: 12/17/19 09:10 Last Admin: 12/17/19 08:57 Dose: 1 each Documented by: Psyllium Husk (Metamucil Fiber Wafer) 2 each PO TID [facility] Last Admin: 12/17/19 08:57 Dose: 2 each Documented by: Tizanidine HCl (Zanaflex) 4 mg PO BID PRN PRN Reason: cramps Tizanidine HCl (Zanaflex) 4 mg PO BID PRN PRN Reason: cramps Last Admin: 12/16/19 07:25 Dose: 4 mg Documented by: Tizanidine HCl (Zanaflex) 4 mg PO Q6H PRN PRN Reason: cramps Last Admin: 12/17/19 04:00 Dose: 4 mg Documented by:
[2019-12-18] MEDS: Enoxaparin 40 MG/0.4 ML Syringe SUBCUT SCH (14:37)
[2019-12-19] MEDS ORDERED: Cyanocobalamin (Vitamin B12) 1,000 MCG/ML SDV IM SCH (10:00)
== END 2019-12-18 17:15 | disposition home or self-care (01) | DRG 641 ==
LOC: JP.ED 07:52 → JP.2SS 11:46 → OBSVTOIN 12-15 09:28
PROVIDERS: ADMIT Hospitalist; ATTEND Internal Medicine
DX: R19.7 Diarrhea, unspecified (principal); E86.0 Dehydration; R10.9 Unspecified abdominal pain; D61.818 Other pancytopenia; K50.918 Crohn's disease, unspecified, with other complication; X58.XXXA Exposure to other specified factors, initial encounter; S31.109A Unspecified open wound of abdominal wall, unspecified quadrant without penetration into peritoneal cavity, initial encounter; R19.8 Other specified symptoms and signs involving the digestive system and abdomen; E83.42 Hypomagnesemia; D64.9 Anemia, unspecified; E53.8 Deficiency of other specified B group vitamins; N18.3 Chronic kidney disease, stage 3 (moderate); H54.7 Unspecified visual loss; K52.9 Noninfective gastroenteritis and colitis, unspecified; G43.909 Migraine, unspecified, not intractable, without status migrainosus; D51.9 Vitamin B12 deficiency anemia, unspecified; Z93.2 Ileostomy status; Z79.899 Other long term (current) drug therapy; Z98.890 Other specified postprocedural states; Z93.3 Colostomy status; Z87.442 Personal history of urinary calculi; Z90.89 Acquired absence of other organs; Z90.710 Acquired absence of both cervix and uterus
CPT/HCPCS: 36415; 74177; 74177-26; 80048; 80053; 81001; 83605; 83735; 85025; 85027; 87046; 87493; 87899; 89055; 96361; 96365; 96366; 96372; 96375; 96376; 99284; 99285-25; A9270-GY; G0378; J1170; J1642; J1650; J3475; J7030; J7050; Q9967

== ENCOUNTER 2020-01-19 13:09 | Emergency (ER) | payer MEDICARE, OTHER ==
[2020-01-19] MEDS ORDERED: Sodium Chloride 0.9% 10 ML Syringe FLUSH PRN (14:15)
[2020-01-19] MEDS ORDERED: Sodium Chloride 0.9% 1,000 ML IV SCH (14:15)
[2020-01-19] MEDS ORDERED: HYDROmorphone 1 MG/ML Syringe IVPUSH ONE (14:44)
[2020-01-19] MEDS ORDERED: Lactated Ringers 2,000 ML IV ONE (14:45)
--- NOTE | 2020-01-19 14:46 | EDM.PDOC ---
ED HPI GENERAL MEDICAL PROBLEM - General Chief Complaint: Abdominal Pain Stated Complaint: STOMACH, SWEATS, LOW GRADE TEMP Time Seen by Provider: 01/19/20 14:46 Source of Information: Reports: Patient, Family (husbnd ), Old Records (previous hospitalization) History Limitations: Reports: No Limitations (severe abdominal discomfort) - History of Present Illness INITIAL COMMENTS - FREE TEXT/NARRATIVE: Aline is a 59 year old female with extensive GI history with surgery related to Crohn's disease with multiple complications including colectomy with ileostomy and localized ileostomy abscess formation with relocation by Dr Reno in [place]. Aline was admitted 3-4 weeks ago for high output ostomy, diarrhea with severe acute on chronic abdominal pain. Aline was discharge on Dec 17 and was doing fairly well until the last 3-4 days progressive worsening loose stools and increase in generalized abdominal pain, exactly the same but noticed increased nausea, without vomiting, nasal congestion and increased fatigue. Aline was previous discharged with a few doses of oral Dilaudid. Pain is usually managed with Tramadol up to 8 dose per day to manage chronic pain. Previous visits and recent hospitalization was reviewed with test results. Aline had a flare 2 months prior to last hospitalizations. Aline's Crohn's has been managed by [facility], GI specialist but has not updated her [facility] provider since June of this year. Aline normal goes to the [facility] yearly to see her GI specialist. Zachery has not contacted her [facility] provider about recent hospitalization and progressive symptoms. Aline report chronc rectal pain 5 out of 10 but rectal pain closer to 9.5 out of 10 and generalized abdominal pain 9 out of 10. Abdomen Pain Score (Numeric/FACES): 9 - Related Data Allergies Allergy/AdvReac Type Severity Reaction Status Date / Time No Known Allergies Allergy Verified 01/19/20 14:11 Home Meds: Home Meds Acetaminophen [Acetaminophen Extra Strength] 1,000 mg PO Q4HR PRN 06/17/19 [History] Cyanocobalamin (Vitamin B-12) [Cyanocobalamin Injection] 1 ml IM ASDIRECTED 06/17/19 [History] Imipramine HCl 200 mg PO BEDTIME 06/17/19 [History] Nystatin [Nystatin Oint] 1 dose TOP BID PRN 06/17/19 [History] Ondansetron [Zofran ODT] 4 mg PO Q4HR PRN 06/17/19 [History] Pedi Multivit No.25/Folic Acid [Flintstones Multivit Chew Tab] 1 tab PO DAILY 06/17/19 [History] SUMAtriptan [Imitrex] 50 mg PO BTNUNITS PRN 06/17/19 [History] tiZANidine [Zanaflex] 4 mg PO BID PRN 06/17/19 [History] Amylase/Lipase/Protease [Gus BEE 12,000 Units] 2 cap PO TIDMEALS #180 cap.cr 09/16/19 [Rx] DULoxetine [Cymbalta] 60 mg PO DAILY cap 09/16/19 [Rx] Lactobacillus Rhamnosus GG [Culturelle] 1 cap PO BID #60 cap 09/16/19 [Rx] Loperamide [Imodium] 4 mg PO Q4H #100 cap 09/16/19 [Rx] Melatonin 9 mg PO BEDTIME tablet 09/16/19 [Rx] traMADol [Ultram] 100 mg PO Q4H PRN tablet 09/16/19 [Rx] Atropine/Diphenoxylate [Diphenoxylate-Atropine] 2 tab PO Q6H 10/22/19 [History] Magnesium Oxide 400 mg PO TID 10/22/19 [History] Potassium Chloride 20 meq PO BID 10/22/19 [History] Psyllium Seed (With Sugar) [Metamucil Fiber Wafer] 2 each PO TID #180 wafer 11/01/19 [Rx] Cholestyramine/Sucrose [Cholestyramine] 4 gm PO QID #120 packet 12/18/19 [Rx] Amylase/Lipase/Protease [Gus BEE 12,000 Units] 2 cap PO TID 01/19/20 [History] HYDROmorphone [Dilaudid] 2 - 4 mg PO Q4H PRN 3 Days #20 tab 01/19/20 [Rx] L. 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: Neurological History: Reports: Migraines Psychiatric History: Reports: Anxiety Insulin Pump Model and Cloth Shearer: no Hematologic History: Reports: Anemia, B12 Deficiency, Blood Transfusion(s), Folic Acid, Iron Deficiency Other Hematologic History: magnesium deficiency - Infectious Disease History Infectious Disease History: Reports: C-Difficile - Past Surgical History Head Surgeries/Procedures: Reports: None HEENT Surgical History: Reports: Adenoidectomy, Tonsillectomy Cardiovascular Surgical History: Reports: Cardiac Ablation GI Surgical History: Reports: Appendectomy, Colonoscopy, EGD, Other (See Below) Other GI Surgeries/Procedures: hernia, has ileostomy. ileostomy Female Surgical History: Reports: Hysterectomy, Other (See Below) Other Female Surgeries/Procedures: nephrectomy left Neurological Surgical History: Reports: None Dermatological Surgical History: Reports: None Social & Family History - Family History Family Medical History: Noncontributory - Tobacco Use Smoking Status *Q: Never Smoker - Caffeine Use Caffeine Use: Reports: Soda - Recreational Drug Use Recreational Drug Use: No ED ROS GENERAL - Review of Systems Review Of Systems: Comprehensive ROS is negative, except as noted in HPI. ED EXAM, GI/ABD - Physical Exam Exam: See Below Exam Limited By: No Limitations (tearful due to severe abdominal pressure and rectal pain) General Appearance: Alert, Severe Distress (tearful) Eyes: Bilateral: Normal Appearance Ears: Hearing Grossly Normal Nose: Other (deferred due to mask use) Throat/Mouth: Other (deferred due to mask use) Neck: Full Range of Motion Respiratory/Chest: No Respiratory Distress, Lungs Clear, Normal Breath Sounds Cardiovascular: Normal Peripheral Pulses, Regular Rate, Rhythm (elevated blood pressure), Diastolic Murmur, Systolic Murmur GI/Abdominal Exam: Normal Bowel Sounds, Other (diffuse discomfort non focal. Ileostomy site. ) (Female) Exam: Deferred Rectal (Female) Exam: Deferred Back Exam: Full Range of Motion (no joseluis with movement) Extremities: Normal Inspection, Normal Range of Motion (no pain with movement) Neurological: Alert, Oriented, Normal Cognition Psychiatric: Flat Affect, Tearful Skin Exam: Warm, Dry, Intact, Normal Color, No Rash Lymphatic: No Adenopathy Course - Vital Signs Last Recorded V/S: Last Vital Signs Temp 36.8 C 01/19/20 14:08 Pulse 81 01/19/20 14:30 Resp 16 01/19/20 15:00 BP 182/92 H 01/19/20 15:00 Pulse Ox 97 01/19/20 15:00 - Orders/Labs/Meds Orders: Active Orders 24 hr Category Date Time Status Cardiac Monitoring [RC] .As Directed Care 01/19/20 14:14 Active Implanted Port Access [RC] QSHIFT Care 01/19/20 15:05 Active Peripheral IV Care [RC] . DIRECTED Care 01/19/20 14:15 Active Vital Signs [RC] Q30M Care 01/19/20 15:08 Active C Diff [CLOS DIFFICILE PCR W/REFLEX] [] Stat Lab 01/19/20 17:54 Ordered CULTURE STOOL + SHIGATOX [] Stat Lab 01/19/20 17:54 Ordered HYDROmorphone [Dilaudid] Med 01/19/20 15:06 Active 1 mg IVPUSH ONETIME PRN Heparin Sodium [Heparin Lock Flush 100 Units/ML] Med 01/19/20 18:21 Active 500 units FLUSH ASDIRECTED PRN Sodium Chloride 0.9% [Saline Flush] Med 01/19/20 14:15 Active 10 ml FLUSH ASDIRECTED PRN Peripheral IV Insertion Adult [OM.PC] Urgent Oth 01/19/20 14:15 Ordered Medication Orders Heparin Sodium (Porcine) (Heparin Lock Flush 100 Units/Ml) 500 units FLUSH ASDIRECTED PRN PRN Reason: Other Last Admin: 01/19/20 18:36 Dose: 500 units Documented by: PREILOR Hydromorphone HCl (Dilaudid) 1 mg IVPUSH ONETIME PRN PRN Reason: Pain Last Admin: 01/19/20 15:48 Dose: 1 mg Documented by: PREILOR Sodium Chloride (Saline Flush) 10 ml FLUSH ASDIRECTED PRN PRN Reason: Keep Vein Open Last Admin: 01/19/20 18:35 Dose: 10 ml Documented by: PREILOR Labs: Laboratory Tests 01/19/20 01/19/20 01/19/20 Range/Units 14:28 14:30 14:30 WBC 4.4 L (4.5-11.0) K/uL RBC 3.48 (3.30-5.50) M/uL Hgb 11.5 L (12.0-15.0) g/dL Hct 33.8 L (36.0-48.0) % MCV 97 (80-98) fL MCH 33 H (27-31) pg MCHC 34 (32-36) % Plt Count 137 L (150-400) K/uL Neut % (Auto) 67 H (36-66) % Lymph % (Auto) 26 (24-44) % [place] % (Auto) 6 (2-6) % Eos % (Auto) 0 L (2-4) % Baso % (Auto) 0 (0-1) % Sodium 140 (140-148) mmol/L Potassium 4.3 (3.6-5.2) mmol/L Chloride 104 (100-108) mmol/L Carbon Dioxide 23 (21-32) mmol/L Anion Gap 13.2 (5.0-14.0) mmol/L BUN 11 (7-18) mg/dL Creatinine 1.1 H (0.6-1.0) mg/dL Est Cr Clr Drug Dosing 52.89 mL/min Estimated GFR (MDRD) 51 L (>60) Glucose 102 (74-106) mg/dL Lactic Acid (0.4-2.0) mmol/L Calcium 9.7 (8.5-10.1) mg/dL Magnesium 1.4 L (1.8-2.4) mg/dL Total Bilirubin 0.6 (0.2-1.0) mg/dL AST 24 (15-37) U/L ALT 38 (12-78) U/L Alkaline Phosphatase 141 H (46-116) U/L Total Protein 8.6 H (6.4-8.2) g/dL Albumin 4.3 (3.4-5.0) g/dL Globulin 4.3 H (2.3-3.5) g/dL Albumin/Globulin Ratio 1.0 L (1.2-2.2) Lipase 142 (73-393) U/L TSH, Ultra Sensitive 1.260 (0.358-3.740) uIU/mL SARS-CoV-2 RNA (B[facility]) (NEGATIVE) 10/11/20 10/11/20 Range/Units 14:30 15:33 WBC (4.5-11.0) K/uL RBC (3.30-5.50) M/uL Hgb (12.0-15.0) g/dL Hct (36.0-48.0) % MCV (80-98) fL MCH (27-31) pg MCHC (32-36) % Plt Count (150-400) K/uL Neut % (Auto) (36-66) % Lymph % (Auto) (24-44) % [place] % (Auto) (2-6) % Eos % (Auto) (2-4) % Baso % (Auto) (0-1) % Sodium (140-148) mmol/L Potassium (3.6-5.2) mmol/L Chloride (100-108) mmol/L Carbon Dioxide (21-32) mmol/L Anion Gap (5.0-14.0) mmol/L BUN (7-18) mg/dL Creatinine (0.6-1.0) mg/dL Est Cr Clr Drug Dosing mL/min Estimated GFR (MDRD) (>60) Glucose (74-106) mg/dL Lactic Acid 2.6 H (0.4-2.0) mmol/L Calcium (8.5-10.1) mg/dL Magnesium (1.8-2.4) mg/dL Total Bilirubin (0.2-1.0) mg/dL AST (15-37) U/L ALT (12-78) U/L Alkaline Phosphatase (46-116) U/L Total Protein (6.4-8.2) g/dL Albumin (3.4-5.0) g/dL Globulin (2.3-3.5) g/dL Albumin/Globulin Ratio (1.2-2.2) Lipase (73-393) U/L TSH, Ultra Sensitive (0.358-3.740) uIU/mL SARS-CoV-2 RNA ([facility]) Negative (NEGATIVE) Meds: Medications Generic Name Dose Route Start Last Admin Trade Name Freq PRN Reason Stop Dose Admin Heparin Sodium (Porcine) 500 units 01/19/20 18:21 01/19/20 18:36 Heparin Lock Flush 100 Units/Ml FLUSH 500 units ASDIRECTED PRN Administration Other Hydromorphone HCl 1 mg 01/19/20 15:06 01/19/20 15:48 Dilaudid IVPUSH 1 mg ONETIME PRN Administration Pain Sodium Chloride 10 ml 01/19/20 14:15 01/19/20 18:35 Saline Flush FLUSH 10 ml ASDIRECTED PRN Administration Keep Vein Open Discontinued Medications Generic Name Dose Route Start Last Admin Trade Name Freq PRN Reason Stop Dose Admin Hydromorphone HCl 1 mg 01/19/20 14:44 01/19/20 15:10 Dilaudid IVPUSH 01/19/20 14:45 1 mg ONETIME ONE Administration Hydromorphone HCl 1 mg 01/19/20 16:54 01/19/20 17:21 Dilaudid IVPUSH 01/19/20 16:55 1 mg ONETIME ONE Administration Hydromorphone HCl 1 mg 01/19/20 18:21 01/19/20 18:34 Dilaudid IVPUSH 01/19/20 18:22 1 mg ONETIME ONE Administration Lactated Ringer's 2,000 mls @ 1,000 mls/hr 01/19/20 14:45 01/19/20 15:09 Ringers, Lactated IV 01/19/20 16:44 1,000 mls/hr BOLUS ONE Administration Magnesium Sulfate 2 gm/ Premix 50 mls @ 50 mls/hr 01/19/20 16:47 01/19/20 17:10 IV 01/19/20 17:46 50 mls/hr ONETIME ONE Administration Ondansetron HCl 4 mg 01/19/20 15:06 01/19/20 15:23 Zofran IVPUSH 01/19/20 15:07 4 mg ONETIME ONE Administration Tramadol HCl 100 mg 01/19/20 16:55 01/19/20 17:20 Ultram PO 01/19/20 16:56 100 mg ONETIME ONE Administration - Re-Assessments/Exams Free Text/Narrative Re-Assessment/Exam: Offered to call [facility] but no health and safety consultant provider available per patient and and phone number in purse at home. GI specialist may have additional recommendations or treatment alternatives for acute on chronic abdominal pain, ileostomy dumping with low magnesium, dehydration despite self treatment with 2L LR (daily) and Mag 2GM (2 times per week). Magnesium decreases due to GI loss. Reassessment: Aline's pain is improved to 8 out of 10 after Dilaudid 1 mg x 2 1-2 hours ago, IV LR 1 liter through port. discuss blood test which show no concerning findings at this time. CT not warranted or recommended for further evaluation. Discussed repeat Dilaudid dosing with oral Tramadol 100mg (pt usual pain management medication, second liter of LR and magnesium 2GM IV over 60 minutes. Aline would like to attempt to go home with Dilaudid tablets and discuss recurrent symptoms and hospitalization with [facility] specialist for recommendations at this time. 01/19/20 17:00 Departure - Departure Time of Disposition: 18:47 Disposition: Home, Self-Care 01 Clinical Impression: Chronic abdominal pain, Hypomagnesemia, High output ileostomy, Chronic pain syndrome, Diarrhea Crohn's disease Qualifiers: Gastrointestinal tract location: unspecified location Digestive disease complication type: other complication Qualified Code(s): K50.918 - Crohn's disease, unspecified, with other complication - Discharge Information Prescriptions: HYDROmorphone [Dilaudid] 2 - 4 mg PO Q4H PRN 3 Days #20 tab PRN Reason: Abdominal Pain Instructions: Diarrhea, Adult, Abdominal Pain, Adult, Hypomagnesemia, Short Bowel Syndrome Referrals: PCP,None [Primary Care Provider] - Forms: ED Department Discharge Additional Instructions: 1. Discussed step butts approach to improve ileostomy output (decrease diarrhea): Fiberco/Metamucil wafers (2pkg QID) then Imodium 4mg upto TID, Cholestyramine upto 24G per 24 hours (2-4 times per day) then Lomotil increases are directed. 2. Call [facility] specialist with ER visits and recent hospitalizations to see if additional recommendations. 3. Do not take magnesium potassium or any other medications within 2 hours of taking Cholestyramine (will decrease absorption of medication). 4. Continue Tramadol 50-100mg per PCP pain contract 8 tablets per 24hours. 5. Dilaudid 2-4mg every 6-8hours for severe pain #20 tablet prescription written. 6. Call PCP regarding recent ER visit and additional pain medications/recommendations. Sepsis Event Note (ED) - Evaluation Sepsis Screening Result: No Definite Risk - Focused Exam Vital Signs: Vital Signs Temp Pulse Resp BP Pulse Ox 01/19/20 15:00 16 182/92 H 97 01/19/20 14:30 81 18 186/99 H 97 01/19/20 14:08 36.8 C 90 22 H 199/94 H 100 - My Orders Last 24 Hours: My Active Orders 01/19/20 14:14 Cardiac Monitoring [RC] .As Directed 01/19/20 14:15 Peripheral IV Care [RC] . DIRECTED Sodium Chloride 0.9% [Saline Flush] 10 ml FLUSH ASDIRECTED PRN Peripheral IV Insertion Adult [OM.PC] Urgent 01/19/20 15:05 Implanted Port Access [RC] QSHIFT 01/19/20 15:06 HYDROmorphone [Dilaudid] 1 mg IVPUSH ONETIME PRN 01/19/20 15:08 Vital Signs [RC] Q30M 01/19/20 17:54 C Diff [CLOS DIFFICILE PCR W/REFLEX] [RM] Stat CULTURE STOOL + SHIGATOX [RM] Stat 01/19/20 18:21 Heparin Sodium [Heparin Lock Flush 100 Units/ML] 500 units FLUSH ASDIRECTED PRN - Assessment/Plan Last 24 Hours: My Active Orders 01/19/20 14:14 Cardiac Monitoring [RC] .As Directed 01/19/20 14:15 Peripheral IV Care [RC] . DIRECTED Sodium Chloride 0.9% [Saline Flush] 10 ml FLUSH ASDIRECTED PRN Peripheral IV Insertion Adult [OM.PC] Urgent 01/19/20 15:05 Implanted Port Access [RC] QSHIFT 01/19/20 15:06 HYDROmorphone [Dilaudid] 1 mg IVPUSH ONETIME PRN 01/19/20 15:08 Vital Signs [RC] Q30M 01/19/20 17:54 C Diff [CLOS DIFFICILE PCR W/REFLEX] [RM] Stat CULTURE STOOL + SHIGATOX [RM] Stat 01/19/20 18:21 Heparin Sodium [Heparin Lock Flush 100 Units/ML] 500 units FLUSH ASDIRECTED PRN
[2020-01-19] MEDS ORDERED: Ondansetron 4 MG/2 ML SDV IVPUSH ONE (15:06)
[2020-01-19] MEDS ORDERED: HYDROmorphone 0.5 MG/0.5 ML Syringe IVPUSH PRN (15:06)
[2020-01-19] MEDS ORDERED: Magnesium Sulfate/Water 2 GM in Premix Bag 1 BAG IV ONE (16:47)
[2020-01-19] MEDS ORDERED: HYDROmorphone 0.5 MG/0.5 ML Syringe IVPUSH ONE ×2 (16:54→18:21)
[2020-01-19] MEDS ORDERED: traMADol 50 MG Tab PO ONE (16:55)
== END 2020-01-19 19:12 | disposition home or self-care (01) ==
LOC: JP.ED 13:09
DX: K50.918 Crohn's disease, unspecified, with other complication (principal); E83.42 Hypomagnesemia; Z93.2 Ileostomy status; Z20.828 Contact with and (suspected) exposure to other viral communicable diseases; F41.9 Anxiety disorder, unspecified; Z79.899 Other long term (current) drug therapy; Z90.49 Acquired absence of other specified parts of digestive tract; Z90.710 Acquired absence of both cervix and uterus
CPT/HCPCS: 36415; 80053; 83605; 83690; 83735; 84443; 85025; 96365; 96375; 96376; 99284; A9270; J1170; J1642; J2405; J3475; J7120; U0002

== ENCOUNTER 2020-01-22 07:40 | Emergency (ER) | payer MEDICARE, OTHER ==
[2020-01-22] MEDS ORDERED: HYDROmorphone 2 MG Tab PO STA (08:35)
--- NOTE | 2020-01-22 08:41 | EDM.PDOC ---
ED HPI GENERAL MEDICAL PROBLEM - General Chief Complaint: Gastrointestinal Problem Stated Complaint: PAIN, HEADACHE, LOOSE STOOLS Time Seen by Provider: 01/22/20 08:25 Source of Information: Reports: Patient, Family, Old Records, RN History Limitations: Reports: No Limitations - History of Present Illness INITIAL COMMENTS - FREE TEXT/NARRATIVE: 59 yo female with a pHx of Crohn's presents with large volumes of diarrhea and abd/rectal pain much like she had when she presented here a few days ago. Got IV fluids, but was not clinically dehydrated at that time. She was also given magnesium for her chronic hypomagnesemia. She also was given IV Dilaudid while here and oral Dilaudid to go. She has not used up all of her Dilaudid since her last ER visit. She was given several things to try to hopefully make the diarrhea less severe. 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 When queried she has not reached out to [facility], her primary, or her surgeon since her last ER visit. Without saying as much it sounds like she is mainly looking for more IV Dilaudid. She also reports a GRIJALVA currently. Her last oral Dilaudid was 2 mg at about 0100h last night. Onset: Unknown/Unsure Duration: Chronic, Waxing/Waning Location: Reports: Abdomen ( and rectal area pain) Quality: Reports: Ache Severity: Severe Improves with: Reports: Medication (Dilaudid/Tramadol) Worsens with: Reports: Eating Context: Reports: Other (See HPI) Associated Symptoms: Reports: Headaches. Denies: Fever/Chills, Nausea/Vomiting Treatments FITNESS/WELLNESS DIRECTOR: Reports: Other (see below) (none since 0100h) Rectal Pain Score (Numeric/FACES): 9 - Related Data Allergies Allergy/AdvReac Type Severity Reaction Status Date / Time No Known Allergies Allergy Verified 01/22/20 07:51 Home Meds: Home Meds Acetaminophen [Acetaminophen Extra Strength] 1,000 mg PO Q4HR PRN 06/17/19 [History] Cyanocobalamin (Vitamin B-12) [Cyanocobalamin Injection] 1 ml IM ASDIRECTED 06/17/19 [History] Imipramine HCl 200 mg PO BEDTIME 06/17/19 [History] Nystatin [Nystatin Oint] 1 dose TOP BID PRN 06/17/19 [History] Ondansetron [Zofran ODT] 4 mg PO Q4HR PRN 06/17/19 [History] Pedi Multivit No.25/Folic Acid [Flintstones Multivit Chew Tab] 1 tab PO DAILY 06/17/19 [History] SUMAtriptan [Imitrex] 50 mg PO BTNUNITS PRN 06/17/19 [History] tiZANidine [Zanaflex] 4 mg PO BID PRN 06/17/19 [History] DULoxetine [Cymbalta] 60 mg PO DAILY cap 09/16/19 [Rx] Lactobacillus Rhamnosus GG [Culturelle] 1 cap PO BID #60 cap 09/16/19 [Rx] Loperamide [Imodium] 4 mg PO Q4H #100 cap 09/16/19 [Rx] Melatonin 9 mg PO BEDTIME tablet 09/16/19 [Rx] traMADol [Ultram] 100 mg PO Q4H PRN tablet 09/16/19 [Rx] Atropine/Diphenoxylate [Diphenoxylate-Atropine] 2 tab PO Q6H 10/22/19 [History] Magnesium Oxide 400 mg PO TID 10/22/19 [History] Potassium Chloride 20 meq PO BID 10/22/19 [History] Psyllium Seed (With Sugar) [Metamucil Fiber Wafer] 2 each PO TID #180 wafer 11/01/19 [Rx] Cholestyramine/Sucrose [Cholestyramine] 4 gm PO QID #120 packet 12/18/19 [Rx] Amylase/Lipase/Protease [Creon DR 12,000 Units] 2 cap PO TID 01/19/20 [History] HYDROmorphone [Dilaudid] 2 - 4 mg PO Q4H PRN 3 Days #20 tab 01/19/20 [Rx] L. Rhamnosus GG/Inulin [Culturelle Digest 10B Cell Cap] 1 cap PO ASDIRECTED 01/19/20 [History] Magnesium Sulfate/D5W [Magnesium 2 Gram/50 ml-D5w] 2 gm IV ASDIRECTED 01/19/20 [History] Past Medical History HEENT History: Reports: Impaired Vision Cardiovascular History: Reports: Arrhythmia Gastrointestinal History: Reports: Bowel Obstruction, Chronic Diarrhea, Other (See Below) Other Gastrointestinal History: hernia, multiple bowel surgerys, short gut syndrome Genitourinary History: Reports: Renal Calculus HOURLY ASSOCIATE History: Reports: Neurological History: Reports: Migraines Psychiatric History: Reports: Anxiety Insulin Pump Model and Bakery Associate: no Hematologic History: Reports: Anemia, B12 Deficiency, Blood Transfusion(s), Folic Acid, Iron Deficiency Other Hematologic History: magnesium deficiency - Infectious Disease History Infectious Disease History: Reports: Chicken Pox, Measles, Mumps - Past Surgical History HEENT Surgical History: Reports: Adenoidectomy, Tonsillectomy Cardiovascular Surgical History: Reports: Cardiac Ablation GI Surgical History: Reports: Appendectomy, Colonoscopy, EGD, Other (See Below) Other GI Surgeries/Procedures: hernia, has ileostomy. ileostomy Female Surgical History: Reports: Hysterectomy, Other (See Below) Other Female Surgeries/Procedures: nephrectomy left Neurological Surgical History: Reports: None Dermatological Surgical History: Reports: None Social & Family History - Family History Family Medical History: Noncontributory - Tobacco Use Tobacco Use Status *Q: Never Tobacco User Second Hand Smoke Exposure: No - Caffeine Use Caffeine Use: Reports: Soda - Recreational Drug Use Recreational Drug Use: No ED ROS GENERAL - Review of Systems Review Of Systems: See Below Constitutional: Reports: No Symptoms HEENT: Reports: No Symptoms Respiratory: Reports: No Symptoms Cardiovascular: Reports: No Symptoms Endocrine: Reports: No Symptoms GI/Abdominal: Reports: Abdominal Pain ( and rectal pain), Diarrhea. Denies: Black Stool, Bloody Stool, Constipation, Distension, Hematemesis, Hematochezia, Melena, Nausea, Vomiting : Reports: No Symptoms Musculoskeletal: Reports: No Symptoms Skin: Reports: No Symptoms Neurological: Reports: No Symptoms Psychiatric: Reports: No Symptoms ED EXAM, GI/ABD - Physical Exam Exam: See Below Exam Limited By: No Limitations General Appearance: Alert, WD/WN, No Apparent Distress Eyes: Bilateral: Normal Appearance Ears: Normal External Exam, Normal Canal, Hearing Grossly Normal Nose: Normal Inspection, No Blood Throat/Mouth: Normal Inspection, Normal Lips, Normal Oropharynx, Normal Voice, No Airway Compromise Head: Atraumatic, Normocephalic Neck: Normal Inspection Respiratory/Chest: No Respiratory Distress, Lungs Clear, Normal Breath Sounds, No Accessory Muscle Use Cardiovascular: Regular Rate, Rhythm, No Edema GI/Abdominal Exam: Normal Bowel Sounds, Soft, No Distention, Tender (mild, diffuse). No: Distended, Guarding, Rigid, Rebound Extremities: Normal Inspection, Normal Range of Motion, Non-Tender, No Pedal Edema Neurological: Alert, Oriented, CN II-XII Intact, Normal Cognition, No Motor/Sensory Deficits Psychiatric: Normal Affect, Normal Mood Skin Exam: Warm, Dry, Intact, Normal Color, No Rash Course - Vital Signs Text/Narrative:: Case discussed with Dr. Reno @ [facility], recommends f/u with her primary. Last Recorded V/S: Last Vital Signs Temp 36.2 C 01/22/20 08:14 Pulse 92 01/22/20 08:14 Resp 16 01/22/20 08:14 BP 164/82 H 01/22/20 08:14 Pulse Ox 100 01/22/20 08:14 - Orders/Labs/Meds Orders: Active Orders 24 hr Category Date Time Status Orthostatic Vital Signs [RC] ASDIRECTED Care 01/22/20 08:23 Active Abdomen Pelvis w Cont [CT] Stat Exams 01/22/20 09:59 Ordered Hemoccult [OCCULT BLOOD DIAGNOSTIC] [OP] Stat Lab 01/22/20 10:18 Ordered UA W/O MICROSCOPIC [URIN] Stat Lab 01/22/20 08:23 Ordered Iopamidol [Isovue-300 (61%)] Med 01/22/20 10:30 Active 114 ml IV . DIRECTED Sodium Chloride 0.9% [Saline Flush] Med 01/22/20 09:51 Active 10 ml FLUSH ASDIRECTED PRN Sodium Chloride 0.9% [Saline Flush] Med 01/22/20 10:19 Active 10 ml FLUSH ONETIME PRN Saline Lock Insert [OM.PC] Routine Oth 01/22/20 09:51 Ordered Medication Orders Iopamidol (Isovue-300 (61%)) 114 ml IV . DIRECTED CASSIE Sodium Chloride (Saline Flush) 10 ml FLUSH ASDIRECTED PRN PRN Reason: Keep Vein Open Sodium Chloride (Saline Flush) 10 ml FLUSH ONETIME PRN PRN Reason: PER RADIOLOGY PROTOCOL Labs: Laboratory Tests 01/22/20 01/22/20 01/22/20 Range/Units 08:22 08:23 09:42 WBC 3.6 L (4.5-11.0) K/uL RBC 3.25 L (3.30-5.50) M/uL Hgb 10.4 L (12.0-15.0) g/dL Hct 32.5 L (36.0-48.0) % MCV 100 H (80-98) fL MCH 32 H (27-31) pg MCHC 32 (32-36) % Plt Count 115 L (150-400) K/uL Sodium 141 (140-148) mmol/L Potassium 4.4 (3.6-5.2) mmol/L Chloride 106 (100-108) mmol/L Carbon Dioxide 24 (21-32) mmol/L Anion Gap 11.0 (5.0-14.0) mmol/L BUN 11 (7-18) mg/dL Creatinine 1.2 H (0.6-1.0) mg/dL Est Cr Clr Drug Dosing 48.48 mL/min Estimated GFR (MDRD) 46 L (>60) Glucose 103 (74-106) mg/dL Calcium 9.0 (8.5-10.1) mg/dL Magnesium 1.6 L (1.8-2.4) mg/dL Lipase (73-393) U/L 01/22/20 Range/Units 10:25 WBC (4.5-11.0) K/uL RBC (3.30-5.50) M/uL Hgb (12.0-15.0) g/dL Hct (36.0-48.0) % MCV (80-98) fL MCH (27-31) pg MCHC (32-36) % Plt Count (150-400) K/uL Sodium (140-148) mmol/L Potassium (3.6-5.2) mmol/L Chloride (100-108) mmol/L Carbon Dioxide (21-32) mmol/L Anion Gap (5.0-14.0) mmol/L BUN (7-18) mg/dL Creatinine (0.6-1.0) mg/dL Est Cr Clr Drug Dosing mL/min Estimated GFR (MDRD) (>60) Glucose (74-106) mg/dL Calcium (8.5-10.1) mg/dL Magnesium (1.8-2.4) mg/dL Lipase 159 (73-393) U/L Meds: Medications Generic Name Dose Route Start Last Admin Trade Name Freq PRN Reason Stop Dose Admin Iopamidol 114 ml 01/22/20 10:30 Isovue-300 (61%) IV . DIRECTED CASSIE Sodium Chloride 10 ml 01/22/20 09:51 Saline Flush FLUSH ASDIRECTED PRN Keep Vein Open Sodium Chloride 10 ml 01/22/20 10:19 Saline Flush FLUSH ONETIME PRN PER RADIOLOGY PROTOCOL Discontinued Medications Generic Name Dose Route Start Last Admin Trade Name Benignoq PRN Reason Stop Dose Admin Diphenhydramine HCl 25 mg 01/22/20 09:52 01/22/20 10:11 Benadryl IVPUSH 01/22/20 09:53 25 mg ONETIME ONE Administration Hydromorphone HCl 4 mg 01/22/20 08:35 01/22/20 08:51 Dilaudid PO 01/22/20 08:36 4 mg NOW STA Administration Sodium Chloride 75 mls @ 3 mls/sec 01/22/20 10:19 Normal Saline IV 01/22/20 10:20 ONETIME ONE Ketorolac Tromethamine 30 mg 01/22/20 09:52 01/22/20 10:13 Toradol IVPUSH 01/22/20 09:53 30 mg ONETIME ONE Administration Prochlorperazine Edisylate 10 mg 01/22/20 09:52 01/22/20 10:09 Compazine IVPUSH 01/22/20 09:53 10 mg ONETIME ONE Administration - Radiology Interpretation Free Text/Narrative:: CT abdomen/pelvis with IV contast- CT Results Date: 01/22/20 - Re-Assessments/Exams Free Text/Narrative Re-Assessment/Exam: 01/22/20 09:53 Says sx's worse since 4 mg oral Dilaudid. GRIJALVA no better. Will give IV Toradol, compazine, benedryl to see if this helps her GRIJALVA, abdomen. Has had GRIJALVA's like this in the past. 01/22/20 09:54 Free Text/Narrative Re-Assessment/Exam: 01/22/20 11:05 Patient deferred on having another CT scan to work up her abd/rectal pain as nothing was found the last time she was scanned for this. Departure - Departure Time of Disposition: 11:10 Disposition: Home, Self-Care 01 Condition: Fair Clinical Impression: Chronic abdominal pain, High output ileostomy Headache Qualifiers: Headache type: unspecified Headache chronicity pattern: acute headache Intractability: not intractable Qualified Code(s): R51.9 - Headache, unspecified - Discharge Information *PRESCRIPTION DRUG MONITORING PROGRAM REVIEWED*: No *COPY OF PRESCRIPTION DRUG MONITORING REPORT IN PATIENT MYLA: No Referrals: Lisa Gerber MD [Primary Care Provider] - Forms: ED Department Discharge Additional Instructions: Your lab work today was all normal. A copy of these labs were provided today so that you can share them with your family doctor. Continue your present cares. Follow up with Dr. Buzz gold to formulate a plan your management of your condition and possibly to provide a referral to [facility] if this is needed. Dr. Gerber should be prescribing pain meds if they are needed. Return here if there is a change in your condition such as fever or bleeding. Sepsis Event Note (ED) - Evaluation Sepsis Screening Result: No Definite Risk - Focused Exam Vital Signs: Vital Signs Temp Pulse Resp BP Pulse Ox 01/22/20 08:14 36.2 C 92 16 164/82 H 100 - My Orders Last 24 Hours: My Active Orders 01/22/20 08:23 Orthostatic Vital Signs [RC] ASDIRECTED UA W/O MICROSCOPIC [URIN] Stat 01/22/20 09:51 Sodium Chloride 0.9% [Saline Flush] 10 ml FLUSH ASDIRECTED PRN Saline Lock Insert [OM.PC] Routine 01/22/20 09:59 Abdomen Pelvis w Cont [CT] Stat 01/22/20 10:18 Hemoccult [OCCULT BLOOD DIAGNOSTIC] [OP] Stat 01/22/20 10:19 Sodium Chloride 0.9% [Saline Flush] 10 ml FLUSH ONETIME PRN 01/22/20 10:30 Iopamidol [Isovue-300 (61%)] 114 ml IV . DIRECTED - Assessment/Plan Last 24 Hours: My Active Orders 01/22/20 08:23 Orthostatic Vital Signs [RC] ASDIRECTED UA W/O MICROSCOPIC [URIN] Stat 01/22/20 09:51 Sodium Chloride 0.9% [Saline Flush] 10 ml FLUSH ASDIRECTED PRN Saline Lock Insert [OM.PC] Routine 01/22/20 09:59 Abdomen Pelvis w Cont [CT] Stat 01/22/20 10:18 Hemoccult [OCCULT BLOOD DIAGNOSTIC] [OP] Stat 01/22/20 10:19 Sodium Chloride 0.9% [Saline Flush] 10 ml FLUSH ONETIME PRN 01/22/20 10:30 Iopamidol [Isovue-300 (61%)] 114 ml IV . DIRECTED
[2020-01-22] MEDS ORDERED: Sodium Chloride 0.9% 10 ML Syringe FLUSH PRN ×2 (09:51→10:19)
[2020-01-22] MEDS ORDERED: Ketorolac 30 MG/ML SDV IVPUSH ONE (09:52)
[2020-01-22] MEDS ORDERED: Prochlorperazine 10 MG/2 ML SDV IVPUSH ONE (09:52)
[2020-01-22] MEDS ORDERED: diphenhydrAMINE 50 MG/ML SDV IVPUSH ONE (09:52)
[2020-01-22] MEDS ORDERED: Sodium Chloride 0.9% 75 ML IV ONE (10:19)
[2020-01-22] MEDS ORDERED: Iopamidol 612 MG/ML 150 ML Bottle IV SCH (10:30)
== END 2020-01-22 11:20 | disposition home or self-care (01) ==
LOC: JP.ED 07:40
DX: R10.84 Generalized abdominal pain (principal); G89.29 Other chronic pain; F41.9 Anxiety disorder, unspecified; Z79.899 Other long term (current) drug therapy; Z93.2 Ileostomy status; R51.9 Headache, unspecified
CPT/HCPCS: 36415; 80048; 83690; 83735; 85027; 96374; 96375; 99284; A9270; J0780; J1200; J1885

== ENCOUNTER 2020-03-10 13:45 | Emergency (ER) | payer MEDICARE, OTHER ==
[2020-03-10] MEDS ORDERED: Sodium Chloride 0.9% 10 ML Syringe FLUSH PRN (15:08)
[2020-03-10] MEDS ORDERED: fentaNYL 100 MCG/2 ML SDV IVPUSH ONE (15:09)
--- NOTE | 2020-03-10 15:14 | EDM.PDOC ---
ED HPI GENERAL MEDICAL PROBLEM - General Chief Complaint: General Stated Complaint: KIDNEY STONES? Time Seen by Provider: 03/10/20 15:00 Source of Information: Reports: Patient, Family, RN Notes Reviewed History Limitations: Reports: No Limitations - History of Present Illness INITIAL COMMENTS - FREE TEXT/NARRATIVE: 59-year-old female presents emergency department with a complaint of abdominal pain, she was recently admitted to [facility] last week she states she underwent an extensive evaluation did receive a transfusion of blood down there and started on antibiotics both through her port and orally she does have difficulty explaining the exact procedures that were done or exactly why she was admitted. Was discharged home is set to follow-up at the [facility] within a week however over the last few days she she has become more short of breath has had some fevers at home increasing abdominal pain and body aches Right Lower Back Pain Score (Numeric/FACES): 9 - Related Data Allergies Allergy/AdvReac Type Severity Reaction Status Date / Time No Known Allergies Allergy Verified 01/22/20 07:51 Home Meds: Home Meds Acetaminophen [Acetaminophen Extra Strength] 1,000 mg PO Q4HR PRN 06/17/19 [History] Cyanocobalamin (Vitamin B-12) [Cyanocobalamin Injection] 1 ml IM ASDIRECTED 06/17/19 [History] Imipramine HCl 200 mg PO BEDTIME 06/17/19 [History] Nystatin [Nystatin Oint] 1 dose TOP BID PRN 06/17/19 [History] Ondansetron [Zofran ODT] 4 mg PO Q4HR PRN 06/17/19 [History] Pedi Multivit No.25/Folic Acid [Flintstones Multivit Chew Tab] 1 tab PO DAILY 06/17/19 [History] SUMAtriptan [Imitrex] 50 mg PO BTNUNITS PRN 06/17/19 [History] tiZANidine [Zanaflex] 4 mg PO BID PRN 06/17/19 [History] DULoxetine [Cymbalta] 60 mg PO DAILY cap 09/16/19 [Rx] Lactobacillus Rhamnosus GG [Culturelle] 1 cap PO BID #60 cap 09/16/19 [Rx] Loperamide [Imodium] 4 mg PO Q4H #100 cap 09/16/19 [Rx] Melatonin 9 mg PO BEDTIME tablet 09/16/19 [Rx] traMADol [Ultram] 100 mg PO Q4H PRN tablet 09/16/19 [Rx] Atropine/Diphenoxylate [Diphenoxylate-Atropine] 2 tab PO Q6H 10/22/19 [History] Magnesium Oxide 400 mg PO TID 10/22/19 [History] Potassium Chloride 20 meq PO BID 10/22/19 [History] Psyllium Seed (With Sugar) [Metamucil Fiber Wafer] 2 each PO TID #180 wafer 11/01/19 [Rx] Cholestyramine/Sucrose [Cholestyramine] 4 gm PO QID #120 packet 12/18/19 [Rx] Amylase/Lipase/Protease [Gus DR 12,000 Units] 2 cap PO TID 01/19/20 [History] L. Rhamnosus GG/Inulin [Culturelle Digest 10B Cell Cap] 1 cap PO ASDIRECTED 01/19/20 [History] Magnesium Sulfate/D5W [Magnesium 2 Gram/50 ml-D5w] 2 gm IV ASDIRECTED 01/19/20 [History] Amoxicillin 875 mg PO BID 03/10/20 [History] HYDROmorphone [Dilaudid] 2 mg PO Q4H PRN #20 tab 03/10/20 [Rx] Levofloxacin [Levaquin] 500 mg PO ASDIRECTED 03/10/20 [History] OLANZapine [Olanzapine] 5 mg PO BID 03/10/20 [History] oxyCODONE 5 mg PO TID 03/10/20 [History] Past Medical History HEENT History: Reports: Impaired Vision Cardiovascular History: Reports: Arrhythmia Gastrointestinal History: Reports: Bowel Obstruction, Chronic Diarrhea, Other (See Below) Other Gastrointestinal History: hernia, multiple bowel surgerys, short gut syndrome Genitourinary History: Reports: Renal Calculus ROUND UP RING HAND History: Reports: Neurological History: Reports: Migraines Psychiatric History: Reports: Anxiety Hematologic History: Reports: Anemia, B12 Deficiency, Blood Transfusion(s), Folic Acid, Iron Deficiency Other Hematologic History: magnesium deficiency - Infectious Disease History Infectious Disease History: Reports: Chicken Pox, Measles, Mumps - Past Surgical History Head Surgeries/Procedures: Reports: None HEENT Surgical History: Reports: Adenoidectomy, Tonsillectomy Cardiovascular Surgical History: Reports: Cardiac Ablation GI Surgical History: Reports: Appendectomy, Colonoscopy, EGD, Other (See Below) Other GI Surgeries/Procedures: hernia, has ileostomy. ileostomy Female Surgical History: Reports: Hysterectomy, Other (See Below) Other Female Surgeries/Procedures: nephrectomy left Neurological Surgical History: Reports: None Dermatological Surgical History: Reports: None Social & Family History - Family History Family Medical History: No Pertinent Family History - Tobacco Use Tobacco Use Status *Q: Never Tobacco User - Caffeine Use Caffeine Use: Reports: Soda - Recreational Drug Use Recreational Drug Use: No ED ROS GENERAL - Review of Systems Review Of Systems: See Below Constitutional: Reports: Fever, Chills, Weakness Respiratory: Reports: No Symptoms Cardiovascular: Reports: No Symptoms GI/Abdominal: Reports: Abdominal Pain, Flatus, Nausea. Denies: Vomiting : Reports: No Symptoms Musculoskeletal: Reports: Muscle Pain ED EXAM, GENERAL - Physical Exam Exam: See Below Exam Limited By: No Limitations General Appearance: Alert, Mild Distress Respiratory/Chest: No Respiratory Distress, Lungs Clear, Normal Breath Sounds, No Accessory Muscle Use, Chest Non-Tender Cardiovascular: Regular Rate, Rhythm, No Murmur GI/Abdominal: Normal Bowel Sounds, Soft, Tender (Generalized tenderness) Course - Vital Signs Last Recorded V/S: Last Vital Signs Temp 97 F 03/10/20 14:12 Pulse 85 03/10/20 17:50 Resp 16 03/10/20 14:12 BP 142/73 H 03/10/20 17:50 Pulse Ox 100 03/10/20 16:18 - Orders/Labs/Meds Orders: Active Orders 24 hr Category Date Time Status Peripheral IV Care [RC] . DIRECTED Care 03/10/20 15:09 Active UA W/MICROSCOPIC [URIN] Urgent Lab 03/10/20 16:26 Ordered Lactated Ringers [Ringers, Lactated] 1,000 ml Med 03/10/20 15:15 Active IV ASDIRECTED Sodium Chloride 0.9% [Saline Flush] Med 03/10/20 15:08 Active 10 ml FLUSH ASDIRECTED PRN Isolation [COMM] Stat Oth 03/10/20 15:12 Ordered Peripheral IV Insertion Adult [OM.PC] Urgent Oth 03/10/20 15:08 Ordered Medication Orders Lactated Ringer's (Ringers, Lactated) 1,000 mls @ 999 mls/hr IV ASDIRECTED CASSIE Last Admin: 03/10/20 15:23 Dose: 999 mls/hr Documented by: DEE DEE Sodium Chloride (Saline Flush) 10 ml FLUSH ASDIRECTED PRN PRN Reason: Keep Vein Open Last Admin: 03/10/20 15:24 Dose: 10 ml Documented by: DEE DEE Labs: Laboratory Tests 03/10/20 03/10/20 03/10/20 Range/Units 15:18 15:18 15:18 WBC 3.6 L (4.5-11.0) K/uL RBC 2.81 L (3.30-5.50) M/uL Hgb 8.7 L (12.0-15.0) g/dL Hct 27.9 L (36.0-48.0) % MCV 99 H (80-98) fL MCH 31 (27-31) pg MCHC 31 L (32-36) % Plt Count 109 L (150-400) K/uL Neut % (Auto) 70 H (36-66) % Lymph % (Auto) 25 (24-44) % Ransom % (Auto) 5 (2-6) % Eos % (Auto) 0 L (2-4) % Baso % (Auto) 0 (0-1) % PT (9.5-12.0) sec INR (0.80-1.20) D-Dimer, Quantitative (0.0-500.0) ng/mL Sodium 129 L (140-148) mmol/L Potassium 4.1 (3.6-5.2) mmol/L Chloride 94 L (100-108) mmol/L Carbon Dioxide 23 (21-32) mmol/L Anion Gap 16.1 H (5.0-14.0) mmol/L BUN 14 (7-18) mg/dL Creatinine 1.4 H (0.6-1.0) mg/dL Est Cr Clr Drug Dosing 41.55 mL/min Estimated GFR (MDRD) 38 L (>60) Glucose 95 (74-106) mg/dL Lactic Acid 0.8 (0.4-2.0) mmol/L Calcium 8.3 L (8.5-10.1) mg/dL Ferritin (8-388) ng/ml Total Bilirubin 1.0 D (0.2-1.0) mg/dL AST 42 H (15-37) U/L ALT 20 (12-78) U/L Alkaline Phosphatase 86 (46-116) U/L Lactate Dehydrogenase (82-234) U/L Troponin I < 0.017 (0.000-0.056) ng/mL Total Protein 7.4 (6.4-8.2) g/dL Albumin 2.6 L (3.4-5.0) g/dL Globulin 4.8 H (2.3-3.5) g/dL Albumin/Globulin Ratio 0.5 L (1.2-2.2) Lipase 78 (73-393) U/L Procalcitonin ng/mL SARS CoV-2 RNA Rapid BJ 03/10/20 03/10/20 03/10/20 Range/Units 15:18 15:18 15:18 WBC (4.5-11.0) K/uL RBC (3.30-5.50) M/uL Hgb (12.0-15.0) g/dL Hct (36.0-48.0) % MCV (80-98) fL MCH (27-31) pg MCHC (32-36) % Plt Count (150-400) K/uL Neut % (Auto) (36-66) % Lymph % (Auto) (24-44) % Ransom % (Auto) (2-6) % Eos % (Auto) (2-4) % Baso % (Auto) (0-1) % PT 16.5 H (9.5-12.0) sec INR 1.53 H (0.80-1.20) D-Dimer, Quantitative 3933.33 H (0.0-500.0) ng/mL Sodium (140-148) mmol/L Potassium (3.6-5.2) mmol/L Chloride (100-108) mmol/L Carbon Dioxide (21-32) mmol/L Anion Gap (5.0-14.0) mmol/L BUN (7-18) mg/dL Creatinine (0.6-1.0) mg/dL Est Cr Clr Drug Dosing mL/min Estimated GFR (MDRD) (>60) Glucose (74-106) mg/dL Lactic Acid (0.4-2.0) mmol/L Calcium (8.5-10.1) mg/dL Ferritin 3377 H (8-388) ng/ml Total Bilirubin (0.2-1.0) mg/dL AST (15-37) U/L ALT (12-78) U/L Alkaline Phosphatase (46-116) U/L Lactate Dehydrogenase (82-234) U/L Troponin I (0.000-0.056) ng/mL Total Protein (6.4-8.2) g/dL Albumin (3.4-5.0) g/dL Globulin (2.3-3.5) g/dL Albumin/Globulin Ratio (1.2-2.2) Lipase (73-393) U/L Procalcitonin ng/mL SARS CoV-2 RNA Rapid BJ 03/10/20 03/10/20 03/10/20 Range/Units 15:18 15:18 15:36 WBC (4.5-11.0) K/uL RBC (3.30-5.50) M/uL Hgb (12.0-15.0) g/dL Hct (36.0-48.0) % MCV (80-98) fL MCH (27-31) pg MCHC (32-36) % Plt Count (150-400) K/uL Neut % (Auto) (36-66) % Lymph % (Auto) (24-44) % Ransom % (Auto) (2-6) % Eos % (Auto) (2-4) % Baso % (Auto) (0-1) % PT (9.5-12.0) sec INR (0.80-1.20) D-Dimer, Quantitative (0.0-500.0) ng/mL Sodium (140-148) mmol/L Potassium (3.6-5.2) mmol/L Chloride (100-108) mmol/L Carbon Dioxide (21-32) mmol/L Anion Gap (5.0-14.0) mmol/L BUN (7-18) mg/dL Creatinine (0.6-1.0) mg/dL Est Cr Clr Drug Dosing mL/min Estimated GFR (MDRD) (>60) Glucose (74-106) mg/dL Lactic Acid (0.4-2.0) mmol/L Calcium (8.5-10.1) mg/dL Ferritin (8-388) ng/ml Total Bilirubin (0.2-1.0) mg/dL AST (15-37) U/L ALT (12-78) U/L Alkaline Phosphatase (46-116) U/L Lactate Dehydrogenase 470 H (82-234) U/L Troponin I (0.000-0.056) ng/mL Total Protein (6.4-8.2) g/dL Albumin (3.4-5.0) g/dL Globulin (2.3-3.5) g/dL Albumin/Globulin Ratio (1.2-2.2) Lipase (73-393) U/L Procalcitonin 4.84 H* ng/mL SARS CoV-2 RNA Rapid BJ Negative Meds: Medications Generic Name Dose Route Start Last Admin Trade Name Freq PRN Reason Stop Dose Admin Lactated Ringer's 1,000 mls @ 999 mls/hr 03/10/20 15:15 03/10/20 15:23 Ringers, Lactated IV 999 mls/hr ASDIRECTED CASSIE Administration Sodium Chloride 10 ml 03/10/20 15:08 03/10/20 15:24 Saline Flush FLUSH 10 ml ASDIRECTED PRN Administration Keep Vein Open Discontinued Medications Generic Name Dose Route Start Last Admin Trade Name Freq PRN Reason Stop Dose Admin Fentanyl 100 mcg 03/10/20 15:09 03/10/20 15:23 Sublimaze IVPUSH 03/10/20 15:10 100 mcg ONETIME ONE Administration Hydromorphone HCl 1 mg 03/10/20 16:19 03/10/20 16:24 Dilaudid IVPUSH 03/10/20 16:20 1 mg ONETIME ONE Administration Hydromorphone HCl 1 mg 03/10/20 17:02 03/10/20 17:20 Dilaudid IVPUSH 03/10/20 17:03 1 mg ONETIME ONE Administration Hydromorphone HCl 1 mg 03/10/20 18:02 Dilaudid IVPUSH 03/10/20 18:03 ONETIME ONE Lactated Ringer's 1,000 mls @ 999 mls/hr 03/10/20 16:22 03/10/20 16:24 Ringers, Lactated IV 03/10/20 17:22 999 mls/hr BOLUS ONE Administration Tizanidine HCl 4 mg 03/10/20 17:03 03/10/20 17:19 Zanaflex PO 03/10/20 17:04 4 mg NOW STA Administration Departure - Departure Time of Disposition: 18:09 Disposition: Home, Self-Care 01 Condition: Poor Clinical Impression: Abdominal pain Qualifiers: Abdominal location: upper abdomen, unspecified Qualified Code(s): R10.10 - Upper abdominal pain, unspecified - Discharge Information Prescriptions: HYDROmorphone [Dilaudid] 2 mg PO Q4H PRN #20 tab PRN Reason: Pain Instructions: Abdominal Pain, Adult, [id number] Referrals: Lisa Gerber MD [Primary Care Provider] - Forms: ED Department Discharge Additional Instructions: Your medications have been faxed to [facility], please keep your follow-up appointment with your primary care for your hospitalization, call or return to the emergency department worsening of symptoms Sepsis Event Note (ED) - Evaluation Sepsis Screening Result: No Definite Risk - Focused Exam Vital Signs: Vital Signs Temp Pulse Resp BP Pulse Ox 03/10/20 17:50 85 142/73 H 03/10/20 16:18 89 149/64 H 100 03/10/20 14:12 97 F 110 H 16 149/72 H 100 03/10/20 14:07 97 F 110 H 16 149/72 H 100 - My Orders Last 24 Hours: My Active Orders 03/10/20 15:08 Sodium Chloride 0.9% [Saline Flush] 10 ml FLUSH ASDIRECTED PRN Peripheral IV Insertion Adult [OM.PC] Urgent 03/10/20 15:09 Peripheral IV Care [RC] . DIRECTED 03/10/20 15:12 Isolation [COMM] Stat 03/10/20 15:15 Lactated Ringers [Ringers, Lactated] 1,000 ml IV ASDIRECTED 03/10/20 16:26 UA W/MICROSCOPIC [URIN] Urgent - Assessment/Plan Last 24 Hours: My Active Orders 03/10/20 15:08 Sodium Chloride 0.9% [Saline Flush] 10 ml FLUSH ASDIRECTED PRN Peripheral IV Insertion Adult [OM.PC] Urgent 03/10/20 15:09 Peripheral IV Care [RC] . DIRECTED 03/10/20 15:12 Isolation [COMM] Stat 03/10/20 15:15 Lactated Ringers [Ringers, Lactated] 1,000 ml IV ASDIRECTED 03/10/20 16:26 UA W/MICROSCOPIC [URIN] Urgent Plan: Assessment Acuity = acute Site and laterality = abdominal pain Etiology = unknown Manifestations = none Location of injury = Home Lab values = WBC low at 3.6 consistent leukopenia hemoglobin 8.7 consistent with normochromic anemia INR 1.53 D-dimer elevated 3933 consistent with inflammatory response sodium low at 129 consistent hyponatremia creatinine elevated 1.4 consistent chronic renal failure stage G3 B ferritin elevated 3377 LDH slightly elevated 470 troponin was negative lipase normal at 78 procalcitonin elevated 4.84 of uncertain significance Covid negative chest x-ray shows no acute process Plan After reviewing lab work from the [facility] and recent hospitalization last week she was admitted for abdominal pain and hematuria thought to be a pyelonephritis treated with antibiotics of vancomycin and gentamicin ceftriaxone discharged home on Vanco and amoxicillin. Continue to have pain throughout her course she reports the emergency department same problem today however her lab work is better from compared to last week. I did offer her admission however we are read alert at this time that would include a transfer which she declined she is going to try pain medication at home and continue with her antibiotics therefore prescription for Dilaudid 2 mg p.o. every 4 hours as needed total #20 faxed to [facility] keep her follow-up appointment for posthospitalization This note was dictated using [employer] voice recognition software please call with any questions on syntax or grammar.
[2020-03-10] MEDS ORDERED: Lactated Ringers 1,000 ML IV SCH (15:15)
[2020-03-10] MEDS ORDERED: HYDROmorphone 1 MG/ML Syringe IVPUSH ONE ×3 (16:19→18:02)
[2020-03-10] MEDS ORDERED: Lactated Ringers 1,000 ML IV ONE (16:22)
--- NOTE | 2020-03-10 16:28 | CRLCR ---
Indication: Respiratory failure Technique: Chest 1 view Comparison: September 08, 2019 Findings/Impression: Left-sided central venous catheter tip terminates at the level of the cavoatrial junction. Normal cardiomediastinal silhouette and pulmonary vasculature. The lungs are clear. No effusion or pneumothorax. No acute osseous abnormality. Dictated by Lisa Keith MD @ Mar 10 2020 4:26PM Signed by Dr. Lisa Keith @ Mar 10 2020 4:27PM
[2020-03-10] MEDS ORDERED: tiZANidine 4 MG Tab PO STA (17:03)
== END 2020-03-10 18:22 | disposition home or self-care (01) ==
LOC: JP.ED 13:45
DX: R10.10 Upper abdominal pain, unspecified (principal); F41.9 Anxiety disorder, unspecified; Z79.899 Other long term (current) drug therapy; Z20.828 Contact with and (suspected) exposure to other viral communicable diseases
CPT/HCPCS: 36415; 71045; 80053; 82728; 83605; 83615; 83690; 84145; 84484; 85025; 85379; 85610; 96374; 96375; 96376; 99285; A9270; J1170; J1642; J3010; J7120; U0002

== ENCOUNTER 2020-03-15 09:01 | Inpatient (IN) | payer MEDICARE, OTHER ==
[2020-03-15] MEDS ORDERED: HYDROmorphone 0.5 MG/0.5 ML Syringe IVPUSH ONE ×3 (09:59→13:38)
[2020-03-15] MEDS ORDERED: Sodium Chloride 0.9% 10 ML Syringe FLUSH PRN (09:59)
--- NOTE | 2020-03-15 10:07 | EDM.PDOC ---
ED HPI GENERAL MEDICAL PROBLEM - General Chief Complaint: Abdominal Pain Stated Complaint: ABDOMINAL PAIN Time Seen by Provider: 03/15/20 09:50 Source of Information: Reports: Patient, Old Records, RN History Limitations: Reports: Other (incomplete records) - History of Present Illness INITIAL COMMENTS - FREE TEXT/NARRATIVE: 59 yo female s/p ileostomy was seen in [place] for chronic abdominal pain with diarrhea since her ileostomy. They noted some blood in her urine and electrolyte deficiencies and admitted her for 5 days during which time she had a CT scan of her abd/pelvis that was apparently unremarkable. She has a follow up appt back with [place] in a couple weeks. She was here last Monday and saw Officer. He gave her Dilaudid 4 mg tabs #20 which she is now out of. She called the clinic a couple of times this past week after her ER visit and was told they would not see her before the middle of the month(Dr. Gerber) and no one called her back about the fact that she was running out of her pain meds. She is now in pain and says she is very weak. Eating increases her abdominal pain. She continues to have a lot of diarrhea. No fever. Here with her . Onset: Unknown/Unsure Duration: Chronic, Waxing/Waning Location: Reports: Abdomen Quality: Reports: Ache Severity: Moderate Improves with: Reports: Medication Worsens with: Reports: Eating Context: Reports: Other (See HPI) Associated Symptoms: Reports: Loss of Appetite, Malaise, Weakness (generalized). Denies: Fever/Chills, Nausea/Vomiting Treatments SKETCHER: Reports: Other (see below) (usual meds) Abdomen Pain Score (Numeric/FACES): 9 - Related Data Allergies Allergy/AdvReac Type Severity Reaction Status Date / Time No Known Allergies Allergy Verified 03/15/20 09:24 Home Meds: Home Meds Acetaminophen [Acetaminophen Extra Strength] 1,000 mg PO Q4HR PRN 06/17/19 [History] Cyanocobalamin (Vitamin B-12) [Cyanocobalamin Injection] 1 ml IM ASDIRECTED 06/17/19 [History] Imipramine HCl 200 mg PO BEDTIME 06/17/19 [History] Nystatin [Nystatin Oint] 1 dose TOP BID PRN 06/17/19 [History] Ondansetron [Zofran ODT] 4 mg PO Q4HR PRN 06/17/19 [History] Pedi Multivit No.25/Folic Acid [Flintstones Multivit Chew Tab] 1 tab PO DAILY 06/17/19 [History] SUMAtriptan [Imitrex] 50 mg PO BTNUNITS PRN 06/17/19 [History] tiZANidine [Zanaflex] 4 mg PO BID PRN 06/17/19 [History] DULoxetine [Cymbalta] 60 mg PO DAILY cap 09/16/19 [Rx] Lactobacillus Rhamnosus GG [Culturelle] 1 cap PO BID #60 cap 09/16/19 [Rx] Melatonin 9 mg PO BEDTIME tablet 09/16/19 [Rx] Atropine/Diphenoxylate [Diphenoxylate-Atropine] 2 tab PO Q6H 10/22/19 [History] Magnesium Oxide 400 mg PO TID 10/22/19 [History] Potassium Chloride 20 meq PO BID 10/22/19 [History] Psyllium Seed (With Sugar) [Metamucil Fiber Wafer] 2 each PO TID #180 wafer 11/01/19 [Rx] Cholestyramine/Sucrose [Cholestyramine] 4 gm PO QID #120 packet 12/18/19 [Rx] Amylase/Lipase/Protease [Gus DR 12,000 Units] 2 cap PO TID 01/19/20 [History] L. Rhamnosus GG/Inulin [Culturelle Digest 10B Cell Cap] 1 cap PO ASDIRECTED 01/19/20 [History] Magnesium Sulfate/D5W [Magnesium 2 Gram/50 ml-D5w] 2 gm IV ASDIRECTED 01/19/20 [History] OLANZapine [Olanzapine] 5 mg PO BID 03/10/20 [History] Loperamide [Imodium] 2 mg PO Q4H PRN 03/15/20 [History] Past Medical History HEENT History: Reports: Impaired Vision Cardiovascular History: Reports: Arrhythmia Gastrointestinal History: Reports: Bowel Obstruction, Chronic Diarrhea, Other (See Below) Other Gastrointestinal History: hernia, multiple bowel surgerys, short gut syndrome Genitourinary History: Reports: Renal Calculus [employer]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: Neurological History: Reports: Migraines Psychiatric History: Reports: Anxiety Hematologic History: Reports: Anemia, B12 Deficiency, Blood Transfusion(s), Folic Acid, Iron Deficiency Other Hematologic History: magnesium deficiency - Infectious Disease History Infectious Disease History: Reports: Chicken Pox, Measles, Mumps - Past Surgical History Head Surgeries/Procedures: Reports: None HEENT Surgical History: Reports: Adenoidectomy, Tonsillectomy Cardiovascular Surgical History: Reports: Cardiac Ablation GI Surgical History: Reports: Appendectomy, Colonoscopy, EGD, Other (See Below) Other GI Surgeries/Procedures: hernia, has ileostomy. ileostomy Female Surgical History: Reports: Hysterectomy, Other (See Below) Other Female Surgeries/Procedures: nephrectomy left Neurological Surgical History: Reports: None Dermatological Surgical History: Reports: None Social & Family History - Family History Family Medical History: No Pertinent Family History - Tobacco Use Tobacco Use Status *Q: Never Tobacco User - Caffeine Use Caffeine Use: Reports: Soda - Recreational Drug Use Recreational Drug Use: No ED ROS GENERAL - Review of Systems Review Of Systems: See Below Constitutional: Reports: Malaise, Weakness, Decreased Appetite. Denies: Fever, Chills HEENT: Reports: No Symptoms Respiratory: Reports: No Symptoms Cardiovascular: Reports: No Symptoms Endocrine: Reports: No Symptoms GI/Abdominal: Reports: Abdominal Pain, Diarrhea. Denies: Black Stool, Bloody Stool, Constipation, Distension, Flatus, Hematemesis, Hematochezia, Melena, Nausea, Vomiting : Reports: No Symptoms Musculoskeletal: Reports: No Symptoms Skin: Reports: No Symptoms. Denies: Change in Color Neurological: Reports: No Symptoms Psychiatric: Reports: No Symptoms ED EXAM, GI/ABD - Physical Exam Exam: See Below Exam Limited By: No Limitations General Appearance: Alert, WD/WN, No Apparent Distress Eyes: Bilateral: Normal Appearance Ears: Normal External Exam, Normal Canal, Hearing Grossly Normal Nose: Normal Inspection, No Blood Throat/Mouth: Normal Inspection, Normal Lips, Normal Oropharynx, Normal Voice, No Airway Compromise Head: Atraumatic, Normocephalic Neck: Normal Inspection Respiratory/Chest: No Respiratory Distress, Lungs Clear, Normal Breath Sounds, No Accessory Muscle Use Cardiovascular: Regular Rate, Rhythm, No Edema GI/Abdominal Exam: Normal Bowel Sounds, Soft, No Distention, Tender (diffuse), Other (extensive surgical wounds present, all healed. Some bruising present. ). No: Non-Tender, Distended, Guarding, Rigid, Rebound Back Exam: Normal Inspection. No: CVA Tenderness (R), CVA Tenderness (L) Extremities: Normal Inspection, Normal Range of Motion, Non-Tender, No Pedal Edema Neurological: Alert, Oriented, CN II-XII Intact, Normal Cognition, No Motor/Sensory Deficits Psychiatric: Normal Affect, Normal Mood Skin Exam: Warm, Dry, Intact, No Rash, Ecchymosis (just left of umbilicus). No: Erythema Course - Vital Signs Text/Narrative:: Dr. Sandy Reno called @ 1339h Dr. Pedersen called @ 1343h Last Recorded V/S: Last Vital Signs Temp 36.2 C 03/15/20 09:20 Pulse 102 H 03/15/20 09:20 Resp 18 03/15/20 09:20 BP 180/91 H 03/15/20 09:20 Pulse Ox 100 03/15/20 09:20 - Orders/Labs/Meds Orders: Active Orders 24 hr Category Date Time Status UA W/MICROSCOPIC [URIN] Stat Lab 03/15/20 10:00 Ordered Sodium Chloride 0.9% [Normal Saline] 1,000 ml Med 03/15/20 10:45 Active IV ASDIRECTED Sodium Chloride 0.9% [Saline Flush] Med 03/15/20 09:59 Active 10 ml FLUSH ASDIRECTED PRN Saline Lock Insert [OM.PC] Routine Oth 03/15/20 09:59 Ordered Medication Orders Sodium Chloride (Normal Saline) 1,000 mls @ 500 mls/hr IV ASDIRECTED CASSIE Last Admin: 03/15/20 11:13 Dose: 500 mls/hr Documented by: PREILOR Sodium Chloride (Saline Flush) 10 ml FLUSH ASDIRECTED PRN PRN Reason: Keep Vein Open Last Admin: 03/15/20 10:11 Dose: 10 ml Documented by: PREILOR Labs: Laboratory Tests 03/15/20 03/15/20 03/15/20 Range/Units 10:12 10:12 10:12 WBC 3.9 L (4.5-11.0) K/uL RBC 2.77 L (3.30-5.50) M/uL Hgb 8.3 L (12.0-15.0) g/dL Hct 27.3 L (36.0-48.0) % MCV 99 H (80-98) fL MCH 30 (27-31) pg MCHC 30 L (32-36) % Plt Count 164 (150-400) K/uL Sodium 134 L (140-148) mmol/L Potassium 3.9 (3.6-5.2) mmol/L Chloride 99 L (100-108) mmol/L Carbon Dioxide 24 (21-32) mmol/L Anion Gap 14.9 H (5.0-14.0) mmol/L BUN 7 (7-18) mg/dL Creatinine 1.1 H (0.6-1.0) mg/dL Est Cr Clr Drug Dosing 52.89 mL/min Estimated GFR (MDRD) 51 L (>60) Glucose 107 H (74-106) mg/dL Calcium 8.3 L (8.5-10.1) mg/dL Magnesium 1.6 L (1.8-2.4) mg/dL Total Bilirubin 0.8 (0.2-1.0) mg/dL AST 27 (15-37) U/L ALT 27 (12-78) U/L Alkaline Phosphatase 131 H (46-116) U/L C-Reactive Protein 8.45 H (0.0-0.3) mg/dL Total Protein 7.1 (6.4-8.2) g/dL Albumin 2.5 L (3.4-5.0) g/dL Globulin 4.6 H (2.3-3.5) g/dL Albumin/Globulin Ratio 0.5 L (1.2-2.2) Lipase (73-393) U/L 03/15/20 Range/Units 10:12 WBC (4.5-11.0) K/uL RBC (3.30-5.50) M/uL Hgb (12.0-15.0) g/dL Hct (36.0-48.0) % MCV (80-98) fL MCH (27-31) pg MCHC (32-36) % Plt Count (150-400) K/uL Sodium (140-148) mmol/L Potassium (3.6-5.2) mmol/L Chloride (100-108) mmol/L Carbon Dioxide (21-32) mmol/L Anion Gap (5.0-14.0) mmol/L BUN (7-18) mg/dL Creatinine (0.6-1.0) mg/dL Est Cr Clr Drug Dosing mL/min Estimated GFR (MDRD) (>60) Glucose (74-106) mg/dL Calcium (8.5-10.1) mg/dL Magnesium (1.8-2.4) mg/dL Total Bilirubin (0.2-1.0) mg/dL AST (15-37) U/L ALT (12-78) U/L Alkaline Phosphatase (46-116) U/L C-Reactive Protein (0.0-0.3) mg/dL Total Protein (6.4-8.2) g/dL Albumin (3.4-5.0) g/dL Globulin (2.3-3.5) g/dL Albumin/Globulin Ratio (1.2-2.2) Lipase 84 (73-393) U/L Meds: Medications Generic Name Dose Route Start Last Admin Trade Name Tierra PRN Reason Stop Dose Admin Sodium Chloride 1,000 mls @ 500 mls/hr 03/15/20 10:45 03/15/20 11:13 Normal Saline IV 500 mls/hr ASDIRECTED CASSIE Administration Sodium Chloride 10 ml 03/15/20 09:59 03/15/20 10:11 Saline Flush FLUSH 10 ml ASDIRECTED PRN Administration Keep Vein Open Discontinued Medications Generic Name Dose Route Start Last Admin Trade Name Tierra PRN Reason Stop Dose Admin Acetaminophen 1,000 mg 03/15/20 11:15 03/15/20 11:26 Tylenol Extra Strength PO 03/15/20 11:16 1,000 mg ONETIME ONE Administration Hydromorphone HCl 0.5 mg 03/15/20 09:59 03/15/20 10:10 Dilaudid IVPUSH 03/15/20 10:00 0.5 mg ONETIME ONE Administration Hydromorphone HCl 0.5 mg 03/15/20 11:09 03/15/20 11:15 Dilaudid IVPUSH 03/15/20 11:10 0.5 mg ONETIME ONE Administration Hydromorphone HCl 0.5 mg 03/15/20 13:38 Dilaudid IVPUSH 03/15/20 13:39 ONETIME ONE Magnesium Sulfate 2 gm in 50 mls @ 25 mls/hr 03/15/20 10:44 03/15/20 11:14 Magnesium Sulfate In Water Premix IV 03/15/20 12:43 25 mls/hr ONETIME ONE Administration Sodium Chloride 74 mls @ 3 mls/sec 03/15/20 11:30 Normal Saline IV 03/15/20 11:31 ASDIRECTED CASSIE Iopamidol 112 ml 03/15/20 11:16 Isovue-300 (61%) IV 03/15/20 11:17 ONETIME ONE Lorazepam 1 mg 03/15/20 11:30 03/15/20 11:40 Ativan IVPUSH 03/15/20 11:31 1 mg ONETIME ONE Administration Sodium Chloride 10 ml 03/15/20 11:16 Saline Flush FLUSH 03/15/20 11:17 ONETIME ONE - Radiology Interpretation Free Text/Narrative:: CT abd/pelvis with IV contrast- IMPRESSION: 1. Small-bowel obstruction with a transition point in the lower pelvis. There is a some mesenteric stranding but no interloop fluid. 2. Hepatosplenomegaly slightly increased from prior. 3. Postoperative changes of left nephrectomy and colectomy with right lower quadrant ostomy. 4. Layering sludge within a distended gallbladder, unchanged. No evidence of acute cholecystitis. Please note that all CT scans at this facility use dose modulation, iterative reconstruction, and/or weight-based dosing when appropriate to reduce radiation dose to as low as reasonably achievable. Dictated by Marilu Nevarez MD @ Mar 15 2020 1:07PM CT Results Date: 03/15/20 CT Results Time: 13:37 Departure - Departure Time of Disposition: 13:50 Disposition: Admitted As Inpatient 65 Condition: Fair Clinical Impression: SBO (small bowel obstruction) Anemia Qualifiers: Anemia type: unspecified type Qualified Code(s): D64.9 - Anemia, unspecified - Discharge Information *PRESCRIPTION DRUG MONITORING PROGRAM REVIEWED*: No *COPY OF PRESCRIPTION DRUG MONITORING REPORT IN PATIENT MYLA: No Referrals: Lisa Gerber MD [Primary Care Provider] - Forms: ED Department Discharge Sepsis Event Note (ED) - Evaluation Sepsis Screening Result: Possible Sepsis Risk - Focused Exam Vital Signs: Vital Signs Temp Pulse Resp BP Pulse Ox 03/15/20 09:20 36.2 C 102 H 18 180/91 H 100 03/15/20 09:16 36.2 C 102 H 18 180/91 H 100 - My Orders Last 24 Hours: My Active Orders 03/15/20 09:59 Sodium Chloride 0.9% [Saline Flush] 10 ml FLUSH ASDIRECTED PRN Saline Lock Insert [OM.PC] Routine 03/15/20 10:00 UA W/MICROSCOPIC [URIN] Stat 03/15/20 10:45 Sodium Chloride 0.9% [Normal Saline] 1,000 ml IV ASDIRECTED - Assessment/Plan Last 24 Hours: My Active Orders 03/15/20 09:59 Sodium Chloride 0.9% [Saline Flush] 10 ml FLUSH ASDIRECTED PRN Saline Lock Insert [OM.PC] Routine 03/15/20 10:00 UA W/MICROSCOPIC [URIN] Stat 03/15/20 10:45 Sodium Chloride 0.9% [Normal Saline] 1,000 ml IV ASDIRECTED
[2020-03-15] MEDS ORDERED: Magnesium Sulfate/Water 2 GM/50 ML BAG IV ONE (10:44)
[2020-03-15] MEDS ORDERED: Sodium Chloride 0.9% 1,000 ML IV SCH (10:45)
[2020-03-15] MEDS ORDERED: Acetaminophen 500 MG Tab PO ONE (11:15)
[2020-03-15] MEDS ORDERED: Iopamidol 612 MG/ML 500 ML Multipack Bottle IV ONE (11:16)
[2020-03-15] MEDS ORDERED: LORazepam 2 MG/ML SDV IVPUSH ONE (11:30)
--- NOTE | 2020-03-15 13:35 | CRLCT ---
INDICATION: Abdominal pain. TECHNIQUE: CT abdomen and pelvis acquired with IV contrast. 112 mL IV Isovue-300. COMPARISON: CT of the abdomen and pelvis 12/13/2019. FINDINGS: The lung bases are clear. Hepatomegaly measuring 25.6 cm, similar to slightly increased in size compared to the previous CT. The spleen is markedly enlarged measuring 24.1 cm increased from the prior exam. There is no hepatic or splenic mass. Layering gallbladder sludge within a distended gallbladder similar to prior. No gallbladder wall thickening or pericholecystic fluid. No biliary ductal dilatation. Postoperative changes of colectomy with right lower quadrant ostomy. There are moderately dilated loops of small bowel measuring up to 3.4 cm in diameter in the right lower quadrant. Distal loops are decompressed. The transition point is not visualized directly however it is likely in the lower pelvis. No pneumatosis. There is a mild mesenteric stranding in the left lower quadrant no interloop fluid or free air. The previously described presacral fluid collection is decreased in size. A small amount of soft tissue is present which may reflect the rectal stump. The pancreas, adrenal glands and right kidney are unremarkable. Status post left nephrectomy. No abdominal or pelvic lymphadenopathy. Mild atherosclerotic calcifications of a normal caliber abdominal aorta. No acute osseous abnormality. IMPRESSION: 1. Small-bowel obstruction with a transition point in the lower pelvis. There is a some mesenteric stranding but no interloop fluid. 2. Hepatosplenomegaly slightly increased from prior. 3. Postoperative changes of left nephrectomy and colectomy with right lower quadrant ostomy. 4. Layering sludge within a distended gallbladder, unchanged. No evidence of acute cholecystitis. Please note that all CT scans at this facility use dose modulation, iterative reconstruction, and/or weight-based dosing when appropriate to reduce radiation dose to as low as reasonably achievable. Dictated by Marilu Nevarez MD @ Mar 15 2020 1:07PM Signed by Dr. Marilu Nevarez @ Mar 15 2020 1:33PM
--- NOTE | 2020-03-15 14:42 | PCM.HP.2 ---
H&P History of Present Illness - General Date of Service: 03/15/20 Admit Problem/Dx: Admission Diagnosis/Problem Admission Diagnosis/Problem Small bowel obstruction due to adhesions Source of Information: Patient, Family, Provider History Limitations: Reports: No Limitations - History of Present Illness Initial Comments - Free Text/Narative: CC: My stomach has been hurting HPI: Aline presents to the emergency room today with several days of progressive generalized abdominal pain. She describes this as a constant dull throbbing pain throughout her abdomen. This has progressed to moderately severe. She has some hydromorphone pills that she has been using and this does help temporarily. Moving seems to make the pain worse. Trying to eat makes the pain worse. This is different than her usual chronic abdominal pain and is steadily getting worse. She has had nausea but no vomiting. She has had very little to eat in the past 3 days but has been able to get some fluids in. She is making good quantities of urine. She has had very little stool passing into her ostomy bag but does get some gas. She has some subjective fevers but has not measured any elevated temperatures. No complaints of chest pain or shortness of breath. She feels weak and tired. Work-up in the emergency room revealed stable chronic pancytopenia and stable kidney function. A CT scan of the abdomen and pelvis showed a small bowel obstruction with a probable transition point in the pelvis area. She will be admitted for further management. Abdomen Pain Score (Numeric/FACES): 9 - Related Data Allergies/Adverse Reactions: Allergies Allergy/AdvReac Type Severity Reaction Status Date / Time No Known Allergies Allergy Verified 03/15/20 09:24 Home Medications: Home Meds Acetaminophen [Acetaminophen Extra Strength] 1,000 mg PO Q4HR PRN 06/17/19 [History] Cyanocobalamin (Vitamin B-12) [Cyanocobalamin Injection] 1 ml IM ASDIRECTED 06/17/19 [History] Imipramine HCl 200 mg PO BEDTIME 06/17/19 [History] Nystatin [Nystatin Oint] 1 dose TOP BID PRN 06/17/19 [History] Ondansetron [Zofran ODT] 4 mg PO Q4HR PRN 06/17/19 [History] Pedi Multivit No.25/Folic Acid [Flintstones Multivit Chew Tab] 1 tab PO DAILY 06/17/19 [History] SUMAtriptan [Imitrex] 50 mg PO BTNUNITS PRN 06/17/19 [History] tiZANidine [Zanaflex] 4 mg PO BID PRN 06/17/19 [History] DULoxetine [Cymbalta] 60 mg PO DAILY cap 09/16/19 [Rx] Lactobacillus Rhamnosus GG [Culturelle] 1 cap PO BID #60 cap 09/16/19 [Rx] Melatonin 9 mg PO BEDTIME tablet 09/16/19 [Rx] Atropine/Diphenoxylate [Diphenoxylate-Atropine] 2 tab PO Q6H 10/22/19 [History] Magnesium Oxide 400 mg PO TID 10/22/19 [History] Potassium Chloride 20 meq PO BID 10/22/19 [History] Psyllium Seed (With Sugar) [Metamucil Fiber Wafer] 2 each PO TID #180 wafer 11/01/19 [Rx] Cholestyramine/Sucrose [Cholestyramine] 4 gm PO QID #120 packet 12/18/19 [Rx] Amylase/Lipase/Protease [Creon DR 12,000 Units] 2 cap PO TID 01/19/20 [History] L. Rhamnosus GG/Inulin [Culturelle Digest 10B Cell Cap] 1 cap PO ASDIRECTED 01/19/20 [History] Magnesium Sulfate/D5W [Magnesium 2 Gram/50 ml-D5w] 2 gm IV ASDIRECTED 01/19/20 [History] OLANZapine [Olanzapine] 5 mg PO BID 03/10/20 [History] Loperamide [Imodium] 2 mg PO Q4H PRN 03/15/20 [History] Past Medical History HEENT History: Reports: Impaired Vision Cardiovascular History: Reports: Arrhythmia Gastrointestinal History: Reports: Bowel Obstruction, Chronic Diarrhea, Other (See Below) Other Gastrointestinal History: hernia, multiple bowel surgerys, short gut syndrome Genitourinary History: Reports: Renal Calculus 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: Neurological History: Reports: Migraines Psychiatric History: Reports: Anxiety Hematologic History: Reports: Anemia, B12 Deficiency, Blood Transfusion(s), Folic Acid, Iron Deficiency Other Hematologic History: magnesium deficiency - Infectious Disease History Infectious Disease History: Reports: Chicken Pox, Measles, Mumps - Past Surgical History Head Surgeries/Procedures: Reports: None HEENT Surgical History: Reports: Adenoidectomy, Tonsillectomy Cardiovascular Surgical History: Reports: Cardiac Ablation GI Surgical History: Reports: Appendectomy, Colonoscopy, EGD, Other (See Below) Other GI Surgeries/Procedures: hernia, has ileostomy. ileostomy Female Surgical History: Reports: Hysterectomy, Other (See Below) Other Female Surgeries/Procedures: nephrectomy left Neurological Surgical History: Reports: None Dermatological Surgical History: Reports: None Social & Family History - Family History Family Medical History: No Pertinent Family History - Tobacco Use Tobacco Use Status *Q: Never Tobacco User - Caffeine Use Caffeine Use: Reports: Soda - Alcohol Use Alcohol Use History: No - Recreational Drug Use Recreational Drug Use: No H&P Review of Systems - Review of Systems: Review Of Systems: See Below Free Text/Narrative: A complete 12 point review of systems was obtained. Pertinent positives and negatives are noted in the history of present illness. All other systems were reviewed and were negative except as noted. Exam - Exam Exam: See Below - Vital Signs Vital Signs: Last Vital Signs Temp 36.2 C 03/15/20 09: Pulse 93 03/15/20 14:09 Resp 18 03/15/20 14:09 BP 164/82 H 03/15/20 14:09 Pulse Ox 98 03/15/20 14:09 Weight: 74.843 kg - Exam Quality Assessment: No: Supplemental Oxygen General: Alert, Oriented, Cooperative, Mild Distress HEENT: Conjunctiva Clear, Mucosa Moist & [place]. No: Scleral Icterus Neck: Supple, Trachea Midline Lungs: Clear to Auscultation, Normal Respiratory Effort Cardiovascular: Regular Rate, Regular Rhythm, Other (flowers insertion left upper chest with no erythema or drainage) GI/Abdominal Exam: Normal Bowel Sounds, Soft, No Distention, Tender (moderate diffuse ) Extremities: No Pedal Edema. No: Increased Warmth Peripheral Pulses: 2+: Dorsalis Pedis (L), Dorsalis Pedis (R) Skin: Warm, Dry Neuro Extensive - Mental Status: Alert, Oriented x3, Nl Response to Commands Neuro Extensive - Motor, Sensory, Reflexes: No: Dysarthria, Abnormal Motor, Tremor Psychiatric: Alert, Normal Affect - Patient Data Lab Results Last 24 hrs: Laboratory Results - last 24 hr 03/15/20 03/15/20 03/15/20 Range/Units 10:12 10:12 10:12 WBC 3.9 L (4.5-11.0) K/uL RBC 2.77 L (3.30-5.50) M/uL Hgb 8.3 L (12.0-15.0) g/dL Hct 27.3 L (36.0-48.0) % MCV 99 H (80-98) fL MCH 30 (27-31) pg MCHC 30 L (32-36) % Plt Count 164 (150-400) K/uL Sodium 134 L (140-148) mmol/L Potassium 3.9 (3.6-5.2) mmol/L Chloride 99 L (100-108) mmol/L Carbon Dioxide 24 (21-32) mmol/L Anion Gap 14.9 H (5.0-14.0) mmol/L BUN 7 (7-18) mg/dL Creatinine 1.1 H (0.6-1.0) mg/dL Est Cr Clr Drug Dosing 52.89 mL/min Estimated GFR (MDRD) 51 L (>60) Glucose 107 H (74-106) mg/dL Calcium 8.3 L (8.5-10.1) mg/dL Magnesium 1.6 L (1.8-2.4) mg/dL Total Bilirubin 0.8 (0.2-1.0) mg/dL AST 27 (15-37) U/L ALT 27 (12-78) U/L Alkaline Phosphatase 131 H (46-116) U/L C-Reactive Protein 8.45 H (0.0-0.3) mg/dL Total Protein 7.1 (6.4-8.2) g/dL Albumin 2.5 L (3.4-5.0) g/dL Globulin 4.6 H (2.3-3.5) g/dL Albumin/Globulin Ratio 0.5 L (1.2-2.2) Lipase (73-393) U/L 03/15/20 Range/Units 10:12 WBC (4.5-11.0) K/uL RBC (3.30-5.50) M/uL Hgb (12.0-15.0) g/dL Hct (36.0-48.0) % MCV (80-98) fL MCH (27-31) pg MCHC (32-36) % Plt Count (150-400) K/uL Sodium (140-148) mmol/L Potassium (3.6-5.2) mmol/L Chloride (100-108) mmol/L Carbon Dioxide (21-32) mmol/L Anion Gap (5.0-14.0) mmol/L BUN (7-18) mg/dL Creatinine (0.6-1.0) mg/dL Est Cr Clr Drug Dosing mL/min Estimated GFR (MDRD) (>60) Glucose (74-106) mg/dL Calcium (8.5-10.1) mg/dL Magnesium (1.8-2.4) mg/dL Total Bilirubin (0.2-1.0) mg/dL AST (15-37) U/L ALT (12-78) U/L Alkaline Phosphatase (46-116) U/L C-Reactive Protein (0.0-0.3) mg/dL Total Protein (6.4-8.2) g/dL Albumin (3.4-5.0) g/dL Globulin (2.3-3.5) g/dL Albumin/Globulin Ratio (1.2-2.2) Lipase 84 (73-393) U/L Result Diagrams: 03/15/20 10:12 03/15/20 10:12 Imaging Impressions Last 24 hrs: CT scan of the abdomen and pelvis-images personally reviewed-there is evidence for a small bowel obstruction with dilated loops of small bowel in the lower abdomen. No specific transition point identified but suspect transition point in the pelvis area. Postoperative changes are noted throughout the abdomen. She has an ileostomy. Gallbladder mildly distended with some sludge. Right kidney appears normal. Left kidney surgically absent. Sepsis Event Note - Evaluation Sepsis Screening Result: Possible Sepsis Risk - Focused Exam Vital Signs: Vital Signs Temp Pulse Resp BP Pulse Ox 03/15/20 14:09 93 18 164/82 H 98 03/15/20 09:20 36.2 C 102 H 18 180/91 H 100 03/15/20 09:16 36.2 C 102 H 18 180/91 H 100 *Q Meaningful Use (ADM) - VTE Risk Assess *Q Each Risk Factor Represents 1 Point: History Inflammatory Bowel Disease Total Score 1 Point Risk Factors: 1 Each Risk Factor Represents 2 Points: Age 60 - 74 Years Total Score 2 Point Risk Factors: 2 Each Risk Factor Represents 3 Points: None Total Score 3 Point Risk Factors: 0 Each Risk Factor Represents 5 Points: None Total Score 5 Point Risk Factors: 0 Venous Thromboembolism Risk Factor Score *Q: 3 - Problem List (1) SBO (small bowel obstruction) SNOMED Code(s): 427031604 ICD Code: K56.609 - UNSP INTESTNL OBST, UNSP TO PARTIAL VERSUS COMPLETE OBST Status: Acute Current Visit: Yes (2) Crohn's disease SNOMED Code(s): 78283917 ICD Code: K50.90 - CROHN'S DISEASE, UNSPECIFIED, WITHOUT COMPLICATIONS Status: Chronic Current Visit: No Qualifiers: Gastrointestinal tract location: unspecified location Digestive disease complication type: other complication Qualified Code(s): K50.918 - Crohn's disease, unspecified, with other complication (3) Pancytopenia SNOMED Code(s): 034374244 ICD Code: D61.818 - OTHER PANCYTOPENIA Status: Chronic Current Visit: No (4) CKD (chronic kidney disease), stage III SNOMED Code(s): 511616034 ICD Code: N18.3 - CHRONIC KIDNEY DISEASE, STAGE 3 (MODERATE) * DO NOT USE * Status: Chronic Current Visit: No Qualifiers: Chronic kidney disease stage 3 subtype: stage 3a (GFR 45-59) Qualified C ode(s): N18.31 - Chronic kidney disease, stage 3a (5) History of left nephrectomy SNOMED Code(s): 63934393140910 ICD Code: Z90.5 - ACQUIRED ABSENCE OF KIDNEY Status: Chronic Current Visit: No Problem List Initiated/Reviewed/Updated: Yes Orders Last 24hrs: Active Orders 24 hr Category Date Time Status Patient Status Manage Transfer [TRANSFER] Routine ADT 03/15/20 14:32 Ordered UA W/MICROSCOPIC [URIN] Stat Lab 03/15/20 10:00 Ordered Sodium Chloride 0.9% [Normal Saline] 1,000 ml Med 03/15/20 10:45 Active IV ASDIRECTED Sodium Chloride 0.9% [Saline Flush] Med 03/15/20 09:59 Active 10 ml FLUSH ASDIRECTED PRN Saline Lock Insert [OM.PC] Routine Oth 03/15/20 09:59 Ordered Resuscitation Status Routine Resus Stat 03/15/20 14:34 Ordered Medication Orders Sodium Chloride (Normal Saline) 1,000 mls @ 500 mls/hr IV ASDIRECTED [facility] Last Admin: 03/15/20 11:13 Dose: 500 mls/hr Documented by: PREILOR Sodium Chloride (Saline Flush) 10 ml FLUSH ASDIRECTED PRN PRN Reason: Keep Vein Open Last Admin: 03/15/20 10:11 Dose: 10 ml Documented by: PREILOR Assessment/Plan Comment:: ASSESSMENT AND PLAN - Small bowel obstruction-Long history of Crohn's disease with multiple abdominal surgeries and ileostomy. Transition point appears to be in the abdomen based on CT imaging. Currently having a fair amount of pain. Vital signs are stable. No vomiting. -Symptomatic management of pain and nausea -IV fluids -Flat and upright x-ray in the morning -Surgical consultation with Dr. Reno -NG tube if she starts vomiting Pancytopenia-chronic, stable. This usually decompensates slightly when she gets sick or stressed. Levels are currently stable with no indication for transfusion. Thought to be related to hypersplenism. -Labs in the morning -Transfuse hemoglobin if less than 7 Stage III chronic kidney disease-history of left nephrectomy. Kidney function at baseline. Maintenance issues - - DVT prophylaxis -SCDs - GI prophylaxis -PPI - Nutrition -n.p.o. - Law catheter -not indicated CODE STATUS -full code Admission justification -this patient will be admitted for inpatient services and is medically appropriate meeting medical necessity for inpatient admission as outlined in my documentation. I reasonably expect the patient will require inpatient services that span a period time over 2 midnights. I reasonably expect this patient to be discharged or transferred within 96 hours [facility]. Disposition -anticipate discharge home after the hospital stay Primary care physician -Dr. Lisa Pedersen M.D. - Mortality Measure Prognosis:: Good
[2020-03-15] MEDS ORDERED: Ondansetron 4 MG Tab.DIS PO PRN (15:16)
[2020-03-15] MEDS ORDERED: LORazepam 2 MG/ML SDV IVPUSH PRN (15:16)
[2020-03-15] MEDS ORDERED: tiZANidine 2 MG Tab PO PRN (15:16)
[2020-03-15] MEDS: Lactated Ringers 1,000 ML IV SCH ×2 (15:56→23:34)
[2020-03-15] MEDS: HYDROmorphone 1 MG/ML Syringe IVPUSH PRN ×4 (15:57→22:31)
[2020-03-15] MEDS: Pantoprazole 40 MG Vial IV SCH (15:57)
[2020-03-15] MEDS: Sodium Chloride 0.9% 10 ML Syringe FLUSH ONE (19:33)
[2020-03-15] MEDS: OLANZapine 5 MG Tab PO SCH (20:29)
[2020-03-15] MEDS: tiZANidine 4 MG Tab PO PRN (20:30)
[2020-03-15] MEDS: Magnesium Sulfate/Water 2 GM/50 ML BAG IV SCH (20:34)
[2020-03-15] MEDS ORDERED: IMIPRAMINE HCL PO SCH (21:00)
[2020-03-15] MEDS: Acetaminophen 325 MG Tab PO PRN (22:39)
[2020-03-16] MEDS: HYDROmorphone 1 MG/ML Syringe IVPUSH PRN ×5 (00:41→09:43)
[2020-03-16] MEDS: Magnesium Sulfate/Water 2 GM/50 ML BAG IV SCH (02:41)
[2020-03-16] MEDS: Pantoprazole 40 MG Vial IV SCH ×2 (04:40→16:02)
[2020-03-16] MEDS: Lactated Ringers 1,000 ML IV SCH (09:48)
[2020-03-16] MEDS: OLANZapine 5 MG Tab PO SCH ×2 (09:50→20:52)
[2020-03-16] MEDS: DULoxetine 30 MG Cap PO SCH (09:50)
--- NOTE | 2020-03-16 10:32 | CR ---
Abdomen 2V AP Flat Upright CLINICAL HISTORY: Follow-up obstruction FINDINGS: There is massive hepatosplenomegaly. A shunt has an ostomy site in the right lower quadrant. Chest gas pattern is nonacute. No free air is identified. There are some patchy infiltrates or some fibrosis in both lung bases. IMPRESSION: Right lower quadrant ostomy site. Massive hepatosplenomegaly Bibasal infiltrates. Some of this may be chronic.
--- NOTE | 2020-03-16 10:59 | CONS ---
DATE OF SERVICE: 03/16/2020 REFERRING PHYSICIAN: Rad Pedersen MD CONSULTING PHYSICIAN: Aline Landeros PA-C HISTORY OF PRESENT ILLNESS: Aline presented to the clinic yesterday for abdominal pain. She has had progressive generalized abdominal pain; constant, dull, throbbing pain in her abdomen, she reports it was a 10/10. She had some leftover Dilaudid that she had been taking; moving makes the pain worse; trying to eat, but unable to. States this pain is different. She has had nausea, but no vomiting and very little to eat in the past 3 days, but has been able to get in fluids. She has had some blood passing in the ostomy bag and she also has had very little stools. CT scan of the abdomen and pelvis showed a partial small bowel obstruction, probable transition point in the abdomen. CURRENT MEDICATIONS: See D-Share. PAST MEDICAL HISTORY: Wears corrective lenses for impaired vision. Heart; arrhythmia. GI; has had an ileostomy, prior to that a colostomy for over 30 years, history of bowel obstruction and chronic diarrhea. GI; multiple surgeries, short-gut syndrome. ; renal calculus. 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 Neurological history is chronic migraine. Psychiatric is anxiety. Hematologic history; anemia, B12, has had several blood transfusions and has iron deficiency anemia. Also chronic magnesium deficiency, so gives herself magnesium infusions at home. PAST SURGICAL HISTORY: See EMR. REVIEW OF SYSTEMS: All 12 systems were reviewed. Negative for any other pertinent positives or negatives with exception of abdominal pain. PHYSICAL EXAMINATION: GENERAL: Aline is a 59-year-old female. Height is 5 feet 7 inches. Weight is 164 pounds. BMI is 25.7. VITAL SIGNS: TPR is 97.7, 92, 18, blood pressure 173/73. HEENT: Negative. NECK: Supple. HEART: Regular rate and rhythm. LUNGS: Clear. ABDOMEN: Generalized tenderness. Ileostomy in place. EXTREMITIES: Without peripheral edema. NEUROLOGIC: Intact. SKIN: Without rash. ASSESSMENT: 1. Partial small bowel obstruction. 2. Crohn disease. 3. . 4. Chronic kidney disease stage 3. 5. History of left nephrectomy. PLAN: 1. Start TPN. Orders faxed to Pharmacy. 2. Check CBC, CMP, mag, phos, type and screen for 2 units. 3. Abdominal x-ray flat and upright in a.m. clear. 4. Decrease IV to TKO when TPN is started. 5. Sips of clear liquids and ice chips. 6. We will evaluate p.r.n. or in a.m. Aline Landeros PA-C /[id number]
[2020-03-16] MEDS: 1: AA 5%/Calcium/D15W/Lytes 1,000 ML with MVI, Adult with Vitamin K 10 ML, Zinc/Copper/M IV SCH ×6 (12:07→21:55)
[2020-03-16] MEDS: oxyCODONE 5 MG Tab PO PRN ×3 (14:04→22:41)
[2020-03-16] MEDS: tiZANidine 4 MG Tab PO PRN (15:54)
[2020-03-16] MEDS: Acetaminophen 325 MG Tab PO PRN ×2 (15:56→22:40)
--- NOTE | 2020-03-16 15:56 | PCM.PN ---
- General Info Date of Service: 03/16/20 Subjective Update: Ms. Foley was admitted through the emergency department yesterday. Symptoms included abdominal pain with nausea and decreased ostomy output. CT scan showed evidence of small bowel obstruction. Functional Status: Reports: Ambulating, Urinating - Review of Systems General: Reports: Weakness, Fatigue. Denies: Fever, Chills Pulmonary: Reports: No Symptoms Cardiovascular: Reports: No Symptoms Gastrointestinal: Reports: Abdominal Pain, Nausea. Denies: Diarrhea, Difficulty Swallowing, Hematochezia, Melena, Vomiting Genitourinary: Reports: No Symptoms - Patient Data Vitals - Most Recent: Last Vital Signs Temp 101.6 F H 03/16/20 15:44 Pulse 100 03/16/20 15:44 Resp 18 03/16/20 15:44 BP 187/80 H 03/16/20 15:44 Pulse Ox 84 L 03/16/20 15:44 Weight - Most Recent: 163 lb 4.813 oz I&O - Last 24 Hours: Intake & Output 03/16/20 03/16/20 03/16/20 06:59 14:59 22:59 Intake Total 1423 Output Total 425 300 Balance 998 -300 Lab Results Last 24 Hours: Laboratory Results - last 24 hr 03/15/20 03/16/20 03/16/20 Range/Units 19:39 05:55 05:55 WBC 3.3 L (4.5-11.0) K/uL RBC 2.50 L (3.30-5.50) M/uL Hgb 7.3 L (12.0-15.0) g/dL Hct 24.8 L (36.0-48.0) % MCV 99 H (80-98) fL MCH 29 (27-31) pg MCHC 29 L (32-36) % Plt Count 158 (150-400) K/uL Sodium 133 L (140-148) mmol/L Potassium 4.0 (3.6-5.2) mmol/L Chloride 100 (100-108) mmol/L Carbon Dioxide 23 (21-32) mmol/L Anion Gap 14.0 (5.0-14.0) mmol/L BUN 9 (7-18) mg/dL Creatinine 1.2 H (0.6-1.0) mg/dL Est Cr Clr Drug Dosing 48.48 mL/min Estimated GFR (MDRD) 46 L (>60) Glucose 93 (74-106) mg/dL Calcium 8.1 L (8.5-10.1) mg/dL Urine Color Yellow (YELLOW) Urine Appearance Clear (CLEAR) Urine pH 7.0 (5.0-8.0) Ur Specific [place] 1.015 (1.008-1.030) Urine Protein Negative (NEGATIVE) mg/dL Urine Glucose (UA) Negative (NEGATIVE) mg/dL Urine Ketones Negative (NEGATIVE) mg/dL Urine Occult Blood Moderate H (NEGATIVE) Urine Nitrite Negative (NEGATIVE) Urine Bilirubin Negative (NEGATIVE) Urine Urobilinogen 0.2 (0.2-1.0) EU/dL Ur Leukocyte Esterase Negative (NEGATIVE) Urine RBC Not seen (0-5) Urine WBC Not seen (0-5) Ur Epithelial Cells Rare Urine Bacteria Not seen Med Orders - Current: Current Medications Acetaminophen (Tylenol) 650 mg PO Q4H PRN PRN Reason: Pain (Mild 1-3)/fever Last Admin: 03/15/20 22:39 Dose: 650 mg Documented by: Duloxetine HCl (Cymbalta) 60 mg PO DAILY [facility] Last Admin: 03/16/20 09:50 Dose: 60 mg Documented by: Fat Emulsion Intravenous (Intralipid 20%) 100 mls @ 8.3 mls/hr IV Q24H [facility] Multivitamins/Minerals 10 ml/Zinc 1 ml/ Amino Ac/Electrol/Dextrose/Calcium 1,011 mls @ 100 mls/hr IV .BY DURATION [facility] Last Admin: 03/16/20 12:07 Dose: 100 mls/hr Documented by: Amino Ac/Electrol/Dextrose/Calcium (Clinimix E 5/15) 1,000 mls @ 100 mls/hr IV .BY DURATION [facility] Imipramine HCl (Imipramine Hcl) 200 mg PO BEDTIME [facility] Last Admin: 03/15/20 20:29 Dose: 200 mg Documented by: Olanzapine (Zyprexa) 5 mg PO BID [facility] Last Admin: 03/16/20 09:50 Dose: 5 mg Documented by: Ondansetron HCl (Zofran) 4 mg IV Q6H PRN PRN Reason: Nausea/Vomiting Ondansetron HCl (Zofran Odt) 4 mg PO Q6H PRN PRN Reason: Nausea able to take PO Oxycodone HCl (Oxycodone) 5 mg PO Q4H PRN PRN Reason: Pain Last Admin: 03/16/20 14:04 Dose: 5 mg Documented by: Pantoprazole Sodium (Protonix Iv) 40 mg IV Q12H [facility] Last Admin: 03/16/20 04:40 Dose: 40 mg Documented by: Tizanidine HCl (Zanaflex) 4 mg PO Q6H PRN PRN Reason: muscle cramps Last Admin: 03/15/20 20:30 Dose: 4 mg Documented by: Discontinued Medications Acetaminophen (Tylenol Extra Strength) 1,000 mg PO ONETIME ONE Stop: 03/15/20 11:16 Last Admin: 03/15/20 11:26 Dose: 1,000 mg Documented by: Hydromorphone HCl (Dilaudid) 0.5 mg IVPUSH ONETIME ONE Stop: 03/15/20 10:00 Last Admin: 03/15/20 10:10 Dose: 0.5 mg Documented by: Hydromorphone HCl (Dilaudid) 0.5 mg IVPUSH ONETIME ONE Stop: 03/15/20 11:10 Last Admin: 03/15/20 11:15 Dose: 0.5 mg Documented by: Hydromorphone HCl (Dilaudid) 0.5 mg IVPUSH ONETIME ONE Stop: 03/15/20 13:39 Last Admin: 03/15/20 14:04 Dose: 0.5 mg Documented by: Hydromorphone HCl (Dilaudid) 1 mg IVPUSH Q2H PRN PRN Reason: Pain (severe 7-10) Last Admin: 03/16/20 09:43 Dose: 1 mg Documented by: Sodium Chloride (Normal Saline) 1,000 mls @ 500 mls/hr IV ASDIRECTED [facility] Last Admin: 03/15/20 11:13 Dose: 500 mls/hr Documented by: Magnesium Sulfate (Magnesium Sulfate In Water Premix) 2 gm in 50 mls @ 25 mls/hr IV ONETIME ONE Stop: 03/15/20 12:43 Last Admin: 03/15/20 11:14 Dose: 25 mls/hr Documented by: Sodium Chloride (Normal Saline) 74 mls @ 3 mls/sec IV ASDIRECTED [facility] Stop: 03/15/20 11:31 Lactated Ringer's (Ringers, Lactated) 1,000 mls @ 0 mls/hr IV ASDIRECTED [facility] Last Admin: 03/16/20 09:48 Dose: 100 mls/hr Documented by: Magnesium Sulfate (Magnesium Sulfate In Water Premix) 2 gm in 50 mls @ 12.5 mls/hr IV Q6H [facility] Stop: 03/16/20 05:59 Last Admin: 03/16/20 02:41 Dose: 12.5 mls/hr Documented by: Iopamidol (Isovue-300 (61%)) 112 ml IV ONETIME ONE Stop: 03/15/20 11:17 Last Admin: 03/15/20 19:33 Dose: Not Given Documented by: Lorazepam (Ativan) 1 mg IVPUSH ONETIME ONE Stop: 03/15/20 11:31 Last Admin: 03/15/20 11:40 Dose: 1 mg Documented by: Lorazepam (Ativan) 0.5 mg IVPUSH Q4H PRN PRN Reason: Nausea/Vomiting Sodium Chloride (Saline Flush) 10 ml FLUSH ASDIRECTED PRN PRN Reason: Keep Vein Open Last Admin: 03/15/20 10:11 Dose: 10 ml Documented by: Sodium Chloride (Saline Flush) 10 ml FLUSH ONETIME ONE Stop: 03/15/20 11:17 Last Admin: 03/15/20 19:33 Dose: Not Given Documented by: - Exam Quality Assessment: DVT Prophylaxis General: Alert, Oriented, Cooperative, Mild Distress Lungs: Clear to Auscultation, Normal Respiratory Effort Cardiovascular: Regular Rate, Regular Rhythm, No Murmurs GI/Abdominal Exam: Soft, No Organomegaly, Tender. No: Distended, Guarding, Rigid, Rebound Extremities: Non-Tender, No Pedal Edema Sepsis Event Note - Evaluation Sepsis Screening Result: No Definite Risk - Focused Exam Vital Signs: Vital Signs Temp Pulse Resp BP Pulse Ox 03/16/20 15:44 101.6 F H 100 18 187/80 H 84 L 03/16/20 12:08 99.8 F 100 20 180/82 H 93 L 03/16/20 10:00 99.0 F 03/16/20 07:33 97.7 F 92 18 173/73 H 93 L - Problem List Review Problem List Initiated/Reviewed/Updated: Yes - My Orders Last 24 Hours: My Active Orders 03/16/20 12:37 oxyCODONE 5 mg PO Q4H PRN - Plan Plan:: ASSESSMENT AND PLAN - Small bowel obstruction-Long history of Crohn's disease with multiple abdominal surgeries and ileostomy. Transition point appears to be in the abdomen based on CT imaging. Improved from admission, intermittent ostomy output -Symptomatic management of pain and nausea -IV fluids -Flat and upright x-ray in the morning -Surgical follow-up per Dr. Reno -NG tube if she starts vomiting Pancytopenia-chronic, stable. This usually decompensates slightly when she gets sick or stressed. Levels are currently stable with no indication for transfusion. Thought to be related to hypersplenism. -Labs in the morning -Transfuse hemoglobin if less than 7 Stage III chronic kidney disease-history of left nephrectomy. Kidney function at baseline. Maintenance issues - - DVT prophylaxis -SCDs - GI prophylaxis -PPI - Nutrition -n.p.o. - Law catheter -not indicated CODE STATUS -full code Admission justification -this patient will be admitted for inpatient services and is medically appropriate meeting medical necessity for inpatient admission as outlined in my documentation. I reasonably expect the patient will require inpatient services that span a period time over 2 midnights. I reasonably expect this patient to be discharged or transferred within 96 hours [facility]. Disposition -anticipate discharge home after the hospital stay Primary care physician -Dr. Lisa Gerber
[2020-03-16] MEDS ORDERED: Fat Emulsion 100 ML IV SCH (16:00)
[2020-03-16] MEDS ORDERED: Sodium Chloride 0.9% 10 ML SDV FLUSH ONE (17:52)
[2020-03-16] MEDS ORDERED: Iopamidol 755 Mg/ML 100 ML Bottle IV SCH (18:00)
[2020-03-16] MEDS ORDERED: Vancomycin 1 GM SDV IV SCH (18:00)
[2020-03-16] MEDS ORDERED: Sodium Chloride 0.9% 100 ML IV SCH (18:00)
[2020-03-16] MEDS: Meropenem 1 GM in Sodium Chloride 0.9% 100 ML IV SCH (18:49)
[2020-03-16] MEDS: Sodium Chloride 0.9% 10 ML Syringe FLUSH ONE (19:31)
[2020-03-16] MEDS ORDERED: Vancomycin 2 GM in Sodium Chloride 0.9% 500 ML IV ONE (20:00)
--- NOTE | 2020-03-16 20:13 | CRLCT ---
Indication: Chest pain, hypoxia and fever Technique: Volumetric multidetector CT images of the chest were obtained after the administration of IV contrast. 100 cc Isovue-370 low osmolar Comparison: CT abdomen pelvis March 15, 2020 Findings: The thoracic inlet and thyroid gland are unremarkable. The thoracic aorta is nonaneurysmal. There is no central filling defect to suggest pulmonary embolism. There are extensive enlarged mediastinal and hilar lymph nodes. There is no evidence of axillary adenopathy. There is marked thickening of the central bronchi. There are extensive nodular airspace opacities seen throughout the bilateral hemithoraces with diffuse air-trapping, interlobular septal thickening and trace basilar effusions with adjacent compressive atelectasis. There are innumerable pulmonary nodules seen bilaterally. The partially visualized upper abdominal viscera demonstrates marked hepatosplenomegaly. The thoracic vertebral body heights are grossly maintained with minimal endplate Schmorl`s defect. There is moderate facet arthrosis. There is no evidence of displaced fracture. Impression: No evidence of pulmonary embolus. Demonstration of extensive nodular airspace opacities and pulmonary nodules seen throughout the bilateral hemithoraces which may represent multifocal infiltrates such as can be seen in the setting of septic embolization. However, is no evidence of cavitation of these lesions. Additional considerations could include multifocal metastatic disease from unknown primary. Continued follow-up after treatment is recommended therefore. Please note that all CT scans at this facility use dose modulation, iterative reconstruction, and/or weight-based dosing when appropriate to reduce radiation dose to as low as reasonably achievable. Dictated by Chris Cohen MD @ Mar 16 2020 8:04PM Signed by Dr. Chris Cohen @ Mar 16 2020 8:12PM
[2020-03-16] MEDS: Lactobacillus Rhamnosus GG (Probiotic) Cap PO SCH ×2 (20:45→20:51)
[2020-03-16] MEDS: Levofloxacin/Dextrose 5%-Water 750 MG in Premix Bag 1 BAG IV SCH (20:50)
[2020-03-17] MEDS: Meropenem 1 GM in Sodium Chloride 0.9% 100 ML IV SCH ×3 (03:08→18:21)
[2020-03-17] MEDS: oxyCODONE 5 MG Tab PO PRN ×3 (03:09→13:29)
[2020-03-17] MEDS: Acetaminophen 325 MG Tab PO PRN ×4 (03:09→19:56)
[2020-03-17] MEDS: Pantoprazole 40 MG Vial IV SCH ×2 (04:16→16:06)
[2020-03-17] MEDS: tiZANidine 4 MG Tab PO PRN ×2 (04:16→13:32)
[2020-03-17] MEDS ORDERED: Central Total Parenteral Nutrition Bag SCH (08:00)
--- NOTE | 2020-03-17 08:55 | CR ---
CHEST: 2 view CLINICAL HISTORY:Chest wall pain COMPARISON:03/10/2020 FINDINGS: Heart size and pulmonary vascularity are normal. There are patchy bilateral ill-defined infiltrates in both lung xie right greater than left. There is a central venous catheter in the superior vena cava. There are small bibasal effusions. IMPRESSION: Diffuse bilateral ill-defined pneumonic infiltrates Minimal bibasal effusions
--- NOTE | 2020-03-17 09:05 | CR ---
Abdomen 2V AP Flat Upright CLINICAL HISTORY: Small bowel obstruction FINDINGS: Patient is significant hepatosplenomegaly. There is been previous lower abdominal and pelvic surgery with a right lower quadrant ostomy site. There is a slight increase in gas-filled bowel loops. Gas pattern is nonspecific. No free air is seen. IMPRESSION: Slight increase in bowel gas in a nonspecific pattern Significant hepatosplenomegaly Previous abdominal surgery with right lower quadrant ostomy site
[2020-03-17] MEDS: DULoxetine 30 MG Cap PO SCH (09:26)
[2020-03-17] MEDS: OLANZapine 5 MG Tab PO SCH ×2 (09:26→20:05)
[2020-03-17] MEDS: Lactobacillus Rhamnosus GG (Probiotic) Cap PO SCH ×2 (09:26→20:05)
[2020-03-17] MEDS ORDERED: fentaNYL 100 MCG/2 ML SDV ONE (09:54)
[2020-03-17] MEDS ORDERED: Propofol 200 MG/20 ML SDV ONE (09:54)
[2020-03-17] MEDS ORDERED: Midazolam 1 MG/ML 2 ML SDV ONE (09:55)
[2020-03-17] MEDS ORDERED: Ibuprofen 400 MG Tab PO ONE ×2 (10:42→13:00)
[2020-03-17] MEDS ORDERED: Sodium Chloride 0.9% 500 ML IV ONE (10:42)
[2020-03-17] MEDS ORDERED: Sodium Chloride 0.9% 1,000 ML IV SCH ×2 (10:45→16:45)
[2020-03-17] MEDS ORDERED: Bupivacaine 0.5% 50 ML MDV ONE (10:54)
[2020-03-17] MEDS ORDERED: Lidocaine 1% with EPINEPHrine 1:100,000 50 ML MDV ONE (10:54)
--- NOTE | 2020-03-17 10:57 | PN ---
DATE OF SERVICE: 03/17/2020 SUBJECTIVE: Aline developed a temp max of 101.5. Enrique Dickerson was consulted. She did have gram-positive cocci cultured out of her port. She was started on meropenem, vancomycin, and Levaquin. Her oxygen at the time of her temperature did go in the 80s and currently now was running 90% on 2 L of O2. Per nursing staff, she has been connecting and disconnecting her port while the TPN and lipids had been running. Reports the pain is not controlled, would like an increase in her pain medication, this was deferred to Enrique Dickerson MD. REVIEW OF SYSTEMS: Remainder of review of systems negative for any pertinent positives and negatives. OBJECTIVE: GENERAL: Aline Foley is a 59-year-old female. VITAL SIGNS: Temp at 07:30 was 103.4, pulse 111, respirations 20, blood pressure 154/60, O2 by pulse oximetry is 94% on 2 L. HEENT: Negative. NECK: Supple. HEART: Regular rate and rhythm. LUNGS: Revealed decreased breath sounds bilaterally, rhonchi with coughing. ABDOMEN: Generalized tenderness. EXTREMITIES: Without peripheral edema. ASSESSMENT: 1. 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 2. Partial small bowel obstruction. 3. Crohn disease. 4. Chronic kidney disease, stage III with history of left nephrectomy. PLAN: Discontinue TPN, discontinue lipids. Use peripheral IV with normal saline running at 100 mL/h. We will evaluate p.r.n. or in a.m. Removal of Port-A-Cath pending. Aline Landeros PA-C /[id number]
[2020-03-17] MEDS ORDERED: Lidocaine 1% 2 ML ONE (11:03)
[2020-03-17] MEDS: HYDROmorphone 0.5 MG/0.5 ML Syringe IVPUSH PRN ×4 (12:49→23:05)
--- NOTE | 2020-03-17 13:14 | PCM.PN ---
- General Info Date of Service: 03/17/20 Subjective Update: Ms. Foley has unfortunately developed evidence of significant pulmonary infection and sepsis over the last 24 hours. She did develop increased respiratory rate with hypoxia, stabilized on supplemental oxygen. During this period of time also noted to spike temperature. Blood cultures were obtained and are growing gram-positive cocci. She does have a central line catheter on the left and during hospitalization has been noted by nursing staff to be manip ulating access points and IV lines. She recently was hospitalized at the [facility] in [place]. Blood cultures at that time were positive for Enterobacter and Enterococcus. She was discharged home on oral antibiotic therapy with ampicillin and levofloxacin. She also was directed to flush central line with vancomycin and gentamicin. She completed her antibiotic therapy on 11 March including the central line flushes. Abdominal flatplate and upright x-ray continued to show evidence of at least partial bowel obstruction. CT scan of the chest with PE protocol was obtained last night showing no evidence of pulmonary emboli but did document multiple areas of infection through both lung xie consistent with seeding of infection versus malignancy with multiple mets. She has been started on broad-spectrum IV antibiotic therapy including vancomycin, meropenem, and levofloxacin. - Review of Systems General: Reports: Fever, Weakness, Fatigue, Malaise, Chills Pulmonary: Reports: Shortness of Breath, Pleuritic Chest Pain. Denies: Cough, Sputum, Hemoptysis, Wheezing Cardiovascular: Reports: Dyspnea on Exertion. Denies: Chest Pain, Palpitations, Orthopnea, PND, Edema, Lightheadedness Gastrointestinal: Reports: Abdominal Pain. Denies: Difficulty Swallowing, Hematochezia, Melena, Nausea, Vomiting Musculoskeletal: Reports: No Symptoms Skin: Reports: No Symptoms - Patient Data Vitals - Most Recent: Last Vital Signs Temp 102.1 F H 03/17/20 13:06 Pulse 116 H 03/17/20 13:06 Resp 25 H 03/17/20 13:06 BP 125/67 03/17/20 13:06 Pulse Ox 94 L 03/17/20 12:45 Weight - Most Recent: 163 lb 4.813 oz I&O - Last 24 Hours: Intake & Output 03/16/20 03/17/20 03/17/20 22:59 06:59 14:59 Intake Total 770 1230 Output Total 1000 750 Balance -230 -750 1230 Lab Results Last 24 Hours: Laboratory Results - last 24 hr 03/16/20 03/16/20 03/16/20 Range/Units 16:30 16:30 16:30 WBC 3.9 L (4.5-11.0) K/uL RBC 2.55 L (3.30-5.50) M/uL Hgb 7.6 L (12.0-15.0) g/dL Hct 25.0 L (36.0-48.0) % MCV 98 (80-98) fL MCH 30 (27-31) pg MCHC 30 L (32-36) % Plt Count 173 (150-400) K/uL Neut % (Auto) 72 H (36-66) % Lymph % (Auto) 19 L (24-44) % [place] % (Auto) 9 H (2-6) % Eos % (Auto) 0 L (2-4) % Baso % (Auto) 0 (0-1) % Puncture Site Lt brachial ABG pH 7.463 H (7.350-7.450) ABG pCO2 34.9 L (35.0-42.0) mmHg ABG pO2 50.0 L (75.0-100.0) mmHg ABG HCO3 24.7 (22.0-26.0) mmol/L ABG Total CO2 23.4 (21.0-25.0) mmol/L ABG O2 Saturation 84.1 L (95.0-98.0) % ABG O2 Content 9.0 L (15.0-23.0) %vol ABG Base Excess 1.4 mm/L ABG Hemoglobin 7.8 L (12.0-16.0) g/dL ABG Oxyhemoglobin 81.7 % ABG Carboxyhemoglobin 2.1 H (0.0-1.6) % ABG Methemoglobin 0.7 % César Test N/a O2 Delivery Device Nasal cannula Oxygen Flow Rate 2.0 L Sodium (140-148) mmol/L Potassium (3.6-5.2) mmol/L Chloride (100-108) mmol/L Carbon Dioxide (21-32) mmol/L Anion Gap (5.0-14.0) mmol/L BUN (7-18) mg/dL Creatinine (0.6-1.0) mg/dL Est Cr Clr Drug Dosing mL/min Estimated GFR (MDRD) (>60) Glucose (74-106) mg/dL Lactic Acid 0.7 (0.4-2.0) mmol/L Calcium (8.5-10.1) mg/dL Phosphorus (2.5-4.9) mg/dL Magnesium (1.8-2.4) mg/dL Total Bilirubin (0.2-1.0) mg/dL AST (15-37) U/L ALT (12-78) U/L Alkaline Phosphatase (46-116) U/L Troponin I (0.000-0.056) ng/mL Total Protein (6.4-8.2) g/dL Albumin (3.4-5.0) g/dL Globulin (2.3-3.5) g/dL Albumin/Globulin Ratio (1.2-2.2) Urine Color (YELLOW) Urine Appearance (CLEAR) Urine pH (5.0-8.0) Ur Specific [place] (1.008-1.030) Urine Protein (NEGATIVE) mg/dL Urine Glucose (UA) (NEGATIVE) mg/dL Urine Ketones (NEGATIVE) mg/dL Urine Occult Blood (NEGATIVE) Urine Nitrite (NEGATIVE) Urine Bilirubin (NEGATIVE) Urine Urobilinogen (0.2-1.0) EU/dL Ur Leukocyte Esterase (NEGATIVE) Urine RBC (0-5) Urine WBC (0-5) Ur Epithelial Cells Amorphous Sediment Urine Bacteria Urine Mucus SARS-CoV-2 RNA (BJ) (NEGATIVE) SARS CoV-2 RNA Rapid BJ 03/16/20 03/16/20 03/16/20 Range/Units 16:40 17:36 18:50 WBC (4.5-11.0) K/uL RBC (3.30-5.50) M/uL Hgb (12.0-15.0) g/dL Hct (36.0-48.0) % MCV (80-98) fL MCH (27-31) pg MCHC (32-36) % Plt Count (150-400) K/uL Neut % (Auto) (36-66) % Lymph % (Auto) (24-44) % [place] % (Auto) (2-6) % Eos % (Auto) (2-4) % Baso % (Auto) (0-1) % Puncture Site ABG pH (7.350-7.450) ABG pCO2 (35.0-42.0) mmHg ABG pO2 (75.0-100.0) mmHg ABG HCO3 (22.0-26.0) mmol/L ABG Total CO2 (21.0-25.0) mmol/L ABG O2 Saturation (95.0-98.0) % ABG O2 Content (15.0-23.0) %vol ABG Base Excess mm/L ABG Hemoglobin (12.0-16.0) g/dL ABG Oxyhemoglobin % ABG Carboxyhemoglobin (0.0-1.6) % ABG Methemoglobin % César Test O2 Delivery Device Oxygen Flow Rate L Sodium (140-148) mmol/L Potassium (3.6-5.2) mmol/L Chloride (100-108) mmol/L Carbon Dioxide (21-32) mmol/L Anion Gap (5.0-14.0) mmol/L BUN (7-18) mg/dL Creatinine (0.6-1.0) mg/dL Est Cr Clr Drug Dosing mL/min Estimated GFR (MDRD) (>60) Glucose (74-106) mg/dL Lactic Acid (0.4-2.0) mmol/L Calcium (8.5-10.1) mg/dL Phosphorus (2.5-4.9) mg/dL Magnesium (1.8-2.4) mg/dL Total Bilirubin (0.2-1.0) mg/dL AST (15-37) U/L ALT (12-78) U/L Alkaline Phosphatase (46-116) U/L Troponin I < 0.017 (0.000-0.056) ng/mL Total Protein (6.4-8.2) g/dL Albumin (3.4-5.0) g/dL Globulin (2.3-3.5) g/dL Albumin/Globulin Ratio (1.2-2.2) Urine Color (YELLOW) Urine Appearance (CLEAR) Urine pH (5.0-8.0) Ur Specific [place] (1.008-1.030) Urine Protein (NEGATIVE) mg/dL Urine Glucose (UA) (NEGATIVE) mg/dL Urine Ketones (NEGATIVE) mg/dL Urine Occult Blood (NEGATIVE) Urine Nitrite (NEGATIVE) Urine Bilirubin (NEGATIVE) Urine Urobilinogen (0.2-1.0) EU/dL Ur Leukocyte Esterase (NEGATIVE) Urine RBC (0-5) Urine WBC (0-5) Ur Epithelial Cells Amorphous Sediment Urine Bacteria Urine Mucus SARS-CoV-2 RNA (BJ) Negative (NEGATIVE) SARS CoV-2 RNA Rapid BJ Negative 03/17/20 03/17/20 03/17/20 Range/Units 04:00 04:00 04:30 WBC 2.8 L (4.5-11.0) K/uL RBC 2.50 L (3.30-5.50) M/uL Hgb 7.6 L (12.0-15.0) g/dL Hct 24.6 L (36.0-48.0) % MCV 98 (80-98) fL MCH 30 (27-31) pg MCHC 31 L (32-36) % Plt Count 132 L (150-400) K/uL Neut % (Auto) (36-66) % Lymph % (Auto) (24-44) % [place] % (Auto) (2-6) % Eos % (Auto) (2-4) % Baso % (Auto) (0-1) % Puncture Site ABG pH (7.350-7.450) ABG pCO2 (35.0-42.0) mmHg ABG pO2 (75.0-100.0) mmHg ABG HCO3 (22.0-26.0) mmol/L ABG Total CO2 (21.0-25.0) mmol/L ABG O2 Saturation (95.0-98.0) % ABG O2 Content (15.0-23.0) %vol ABG Base Excess mm/L ABG Hemoglobin (12.0-16.0) g/dL ABG Oxyhemoglobin % ABG Carboxyhemoglobin (0.0-1.6) % ABG Methemoglobin % César Test O2 Delivery Device Oxygen Flow Rate L Sodium 133 L (140-148) mmol/L Potassium 4.3 (3.6-5.2) mmol/L Chloride 101 (100-108) mmol/L Carbon Dioxide 23 (21-32) mmol/L Anion Gap 13.3 (5.0-14.0) mmol/L BUN 12 (7-18) mg/dL Creatinine 1.3 H (0.6-1.0) mg/dL Est Cr Clr Drug Dosing 44.63 mL/min Estimated GFR (MDRD) 42 L (>60) Glucose 142 H (74-106) mg/dL Lactic Acid (0.4-2.0) mmol/L Calcium 7.7 L (8.5-10.1) mg/dL Phosphorus 2.2 L (2.5-4.9) mg/dL Magnesium 1.9 (1.8-2.4) mg/dL Total Bilirubin 0.6 (0.2-1.0) mg/dL AST 17 (15-37) U/L ALT 17 (12-78) U/L Alkaline Phosphatase 95 (46-116) U/L Troponin I (0.000-0.056) ng/mL Total Protein 6.8 (6.4-8.2) g/dL Albumin 2.1 L (3.4-5.0) g/dL Globulin 4.7 H (2.3-3.5) g/dL Albumin/Globulin Ratio 0.5 L (1.2-2.2) Urine Color Yellow (YELLOW) Urine Appearance Clear (CLEAR) Urine pH 8.0 (5.0-8.0) Ur Specific [place] 1.020 (1.008-1.030) Urine Protein Trace H (NEGATIVE) mg/dL Urine Glucose (UA) Normal (NEGATIVE) mg/dL Urine Ketones Negative (NEGATIVE) mg/dL Urine Occult Blood Moderate (NEGATIVE) Urine Nitrite Negative (NEGATIVE) Urine Bilirubin Negative (NEGATIVE) Urine Urobilinogen 0.2 (0.2-1.0) EU/dL Ur Leukocyte Esterase Negative (NEGATIVE) Urine RBC 5-10 H (0-5) Urine WBC 0-5 (0-5) Ur Epithelial Cells Few Amorphous Sediment Not seen Urine Bacteria Few Urine Mucus Not seen SARS-CoV-2 RNA (BJ) (NEGATIVE) SARS CoV-2 RNA Rapid BJ Eliud Results Last 24 Hours: Microbiology 03/17/20 11:34 Gram Stain - Final Other - Abscess 03/17/20 11:35 Gram Stain - Final Other - James Line 03/16/20 16:39 Aerobic Blood Culture - Preliminary Blood - Port-A-Cath Gram Positive Cocci Anaerobic Blood Culture - Preliminary Gram Positive Cocci Med Orders - Current: Current Medications Acetaminophen (Tylenol) 650 mg PO Q4H PRN PRN Reason: Pain (Mild 1-3)/fever Last Admin: 03/17/20 07:30 Dose: 650 mg Documented by: Duloxetine HCl (Cymbalta) 60 mg PO DAILY COUNTS INCLUDE 234 BEDS AT THE [facility] Last Admin: 03/17/20 09:26 Dose: 60 mg Documented by: Hydromorphone HCl (Dilaudid) 0.5 mg IVPUSH Q3H PRN PRN Reason: Pain Last Admin: 03/17/20 12:49 Dose: 0.5 mg Documented by: Meropenem 1 gm/ Sodium (Chloride) 100 mls @ 200 mls/hr IV Q8H COUNTS INCLUDE 234 BEDS AT THE [facility] Last Admin: 03/17/20 10:55 Dose: 200 mls/hr Documented by: Levofloxacin/Dextrose 750 mg/ (Premix) 150 mls @ 100 mls/hr IV Q24H COUNTS INCLUDE 234 BEDS AT THE [facility] Last Admin: 03/16/20 20:50 Dose: 100 mls/hr Documented by: Vancomycin HCl 1 gm/ Sodium (Chloride) 250 mls @ 165 mls/hr IV Q12H COUNTS INCLUDE 234 BEDS AT THE [facility] Last Admin: 03/17/20 10:41 Dose: 165 mls/hr Documented by: Sodium Chloride (Normal Saline) 1,000 mls @ 100 mls/hr IV ASDIRECTED COUNTS INCLUDE 234 BEDS AT THE [facility] Imipramine HCl (Imipramine Hcl) 200 mg PO BEDTIME COUNTS INCLUDE 234 BEDS AT THE [facility] Last Admin: 03/16/20 20:52 Dose: 200 mg Documented by: Lactobacillus Rhamnosus (Culturelle) 1 cap PO BID COUNTS INCLUDE 234 BEDS AT THE [facility] Last Admin: 03/17/20 09:26 Dose: 1 cap Documented by: Olanzapine (Zyprexa) 5 mg PO BID COUNTS INCLUDE 234 BEDS AT THE [facility] Last Admin: 03/17/20 09:26 Dose: 5 mg Documented by: Ondansetron HCl (Zofran) 4 mg IV Q6H PRN PRN Reason: Nausea/Vomiting Ondansetron HCl (Zofran Odt) 4 mg PO Q6H PRN PRN Reason: Nausea able to take PO Oxycodone HCl (Oxycodone) 5 mg PO Q4H PRN PRN Reason: Pain Last Admin: 03/17/20 07:30 Dose: 5 mg Documented by: Pantoprazole Sodium (Protonix Iv) 40 mg IV Q12H COUNTS INCLUDE 234 BEDS AT THE [facility] Last Admin: 03/17/20 04:16 Dose: 40 mg Documented by: Tizanidine HCl (Zanaflex) 4 mg PO Q6H PRN PRN Reason: muscle cramps Last Admin: 03/17/20 04:16 Dose: 4 mg Documented by: Vancomycin HCl (Vancomycin) 1 gm IV .PHARMACY TO DOSE COUNTS INCLUDE 234 BEDS AT THE [facility] Stop: 03/17/20 18:01 Discontinued Medications Acetaminophen (Tylenol Extra Strength) 1,000 mg PO ONETIME ONE Stop: 03/15/20 11:16 Last Admin: 03/15/20 11:26 Dose: 1,000 mg Documented by: Bupivacaine HCl (Marcaine 0.5%) Confirm Administered Dose 50 ml .ROUTE .STK-MED ONE Stop: 03/17/20 10:55 Last Admin: 03/17/20 11:30 Dose: 3.5 ml Documented by: Fentanyl (Sublimaze) Confirm Administered Dose 100 mcg .ROUTE .STK-MED ONE Stop: 03/17/20 09:55 Heparin Sodium (Porcine) (Heparin Lock Flush 100 Units/Ml) Confirm Administered Dose 500 units .ROUTE .STK-MED ONE Stop: 03/17/20 10:55 Last Admin: 03/17/20 11:40 Dose: 500 units Documented by: Hydromorphone HCl (Dilaudid) 0.5 mg IVPUSH ONETIME ONE Stop: 03/15/20 10:00 Last Admin: 03/15/20 10:10 Dose: 0.5 mg Documented by: Hydromorphone HCl (Dilaudid) 0.5 mg IVPUSH ONETIME ONE Stop: 03/15/20 11:10 Last Admin: 03/15/20 11:15 Dose: 0.5 mg Documented by: Hydromorphone HCl (Dilaudid) 0.5 mg IVPUSH ONETIME ONE Stop: 03/15/20 13:39 Last Admin: 03/15/20 14:04 Dose: 0.5 mg Documented by: Hydromorphone HCl (Dilaudid) 1 mg IVPUSH Q2H PRN PRN Reason: Pain (severe 7-10) Last Admin: 03/16/20 09:43 Dose: 1 mg Documented by: Sodium Chloride (Normal Saline) 1,000 mls @ 500 mls/hr IV ASDIRECTED COUNTS INCLUDE 234 BEDS AT THE [facility] Last Admin: 03/15/20 11:13 Dose: 500 mls/hr Documented by: Magnesium Sulfate (Magnesium Sulfate In Water Premix) 2 gm in 50 mls @ 25 mls/hr IV ONETIME ONE Stop: 03/15/20 12:43 Last Admin: 03/15/20 11:14 Dose: 25 mls/hr Documented by: Sodium Chloride (Normal Saline) 74 mls @ 3 mls/sec IV ASDIRECTED COUNTS INCLUDE 234 BEDS AT THE [facility] Stop: 03/15/20 11:31 Lactated Ringer's (Ringers, Lactated) 1,000 mls @ 0 mls/hr IV ASDIRECTED COUNTS INCLUDE 234 BEDS AT THE [facility] Last Admin: 03/16/20 09:48 Dose: 100 mls/hr Documented by: Magnesium Sulfate (Magnesium Sulfate In Water Premix) 2 gm in 50 mls @ 12.5 mls/hr IV Q6H COUNTS INCLUDE 234 BEDS AT THE [facility] Stop: 03/16/20 05:59 Last Admin: 03/16/20 02:41 Dose: 12.5 mls/hr Documented by: Fat Emulsion Intravenous (Intralipid 20%) 100 mls @ 8.3 mls/hr IV Q24H COUNTS INCLUDE 234 BEDS AT THE [facility] Last Admin: 03/16/20 16:01 Dose: 8.3 mls/hr Documented by: Multivitamins/Minerals 10 ml/Zinc 1 ml/ Amino Ac/Electrol/Dextrose/Calcium 1,011 mls @ 100 mls/hr IV .BY DURATION COUNTS INCLUDE 234 BEDS AT THE [facility] Last Admin: 03/16/20 12:07 Dose: 100 mls/hr Documented by: Amino Ac/Electrol/Dextrose/Calcium (Clinimix E /15) 1,000 mls @ 100 mls/hr IV .BY DURATION COUNTS INCLUDE 234 BEDS AT THE [facility] Last Admin: 03/16/20 21:55 Dose: 100 mls/hr Documented by: Sodium Chloride (Normal Saline) 100 mls @ 3 mls/sec IV ASDIRECTED COUNTS INCLUDE 234 BEDS AT THE [facility] Last Admin: 03/16/20 19:31 Dose: 3 mls/sec Documented by: Vancomycin HCl 2 gm/ Sodium (Chloride) 500 mls @ 250 mls/hr IV ONETIME ONE Stop: 03/16/20 21:59 Last Admin: 03/16/20 22:41 Dose: 250 mls/hr Documented by: Vancomycin HCl 1 gm/ Sodium (Chloride) 250 mls @ 166.667 mls/hr IV Q12H COUNTS INCLUDE 234 BEDS AT THE [facility] Sodium Chloride (Normal Saline) 500 mls @ 500 mls/hr IV .BOLUS ONE Stop: 03/17/20 11:41 Last Admin: 03/17/20 10:56 Dose: 500 mls/hr Documented by: Lidocaine HCl (Xylocaine-Mpf 1%) Confirm Administered Dose 2 mls @ as directed .ROUTE .STK-MED ONE Stop: 03/17/20 11:04 Ibuprofen (Motrin) 400 mg PO ONETIME ONE Stop: 03/17/20 13:01 Last Admin: 03/17/20 12:59 Dose: 400 mg Documented by: Iopamidol (Isovue-300 (61%)) 112 ml IV ONETIME ONE Stop: 03/15/20 11:17 Last Admin: 03/15/20 19:33 Dose: Not Given Documented by: Iopamidol (Isovue-370 (76%)) 100 ml IV . DIRECTED COUNTS INCLUDE 234 BEDS AT THE [facility] Last Admin: 03/16/20 19:31 Dose: 100 ml Documented by: Lidocaine/Epinephrine (Xylocaine 1% With Epinephrine 1:100,000) Confirm Administered Dose 50 ml .ROUTE .STK-MED ONE Stop: 03/17/20 10:55 Last Admin: 03/17/20 11:30 Dose: 3.5 ml Documented by: Lorazepam (Ativan) 1 mg IVPUSH ONETIME ONE Stop: 03/15/20 11:31 Last Admin: 03/15/20 11:40 Dose: 1 mg Documented by: Lorazepam (Ativan) 0.5 mg IVPUSH Q4H PRN PRN Reason: Nausea/Vomiting Midazolam HCl (Versed 1 Mg/Ml) Confirm Administered Dose 2 mg .ROUTE .STK-MED ONE Stop: 03/17/20 09:56 Non-Formulary Medication (Total Parenteral Nutrition, Central) 1,000 ml .XX .Continue Order COUNTS INCLUDE 234 BEDS AT THE [facility] Stop: 03/17/20 08:01 Propofol (Diprivan 20 Ml) Confirm Administered Dose 200 mg .ROUTE .STK-MED ONE Stop: 03/17/20 09:55 Sodium Chloride (Saline Flush) 10 ml FLUSH ASDIRECTED PRN PRN Reason: Keep Vein Open Last Admin: 03/15/20 10:11 Dose: 10 ml Documented by: Sodium Chloride (Saline Flush) 10 ml FLUSH ONETIME ONE Stop: 03/15/20 11:17 Last Admin: 03/16/20 19:31 Dose: 10 ml Documented by: Sodium Chloride (Normal Saline) 10 ml FLUSH ONETIME ONE Stop: 12/07/20 17:53 Last Admin: 03/16/20 20:53 Dose: Not Given Documented by: - Exam Quality Assessment: Supplemental Oxygen, Central Line/PICC, DVT Prophylaxis General: Alert, Cooperative, Moderate Distress Lungs: Clear to Auscultation, Decreased Breath Sounds. No: Normal Respiratory Effort, Rales, Rhonchi, Wheezing Cardiovascular: Regular Rhythm, No Murmurs, Tachycardia GI/Abdominal Exam: Soft, Non-Tender, No Organomegaly, No Distention Extremities: Non-Tender, No Pedal Edema Skin: Warm, Dry, Intact Sepsis Event Note - Evaluation Sepsis Screening Result: Sepsis Risk - Focused Exam Vital Signs: Vital Signs Temp Temp Temp Pulse Resp BP Pulse Ox 03/17/20 13:06 102.1 F H 116 H 25 H 125/67 03/17/20 12:45 110 H 50 H 160/28 H 94 L 03/17/20 12:15 101.5 F H 113 H 141/75 H 03/17/20 12:10 112 H 36 H 117/66 98 03/17/20 12:05 98.2 F 111 H 36 H 125/63 98 03/17/20 12:00 111 H 36 H 105/67 99 03/17/20 11:55 98.2 F 110 H 36 H 121/56 L 96 03/17/20 10:35 103.3 F H 116 H 30 H 124/46 L 94 L 03/17/20 08:15 104.2 F H 03/17/20 08:00 217.8 F H 03/17/20 07:30 103.4 F H 03/17/20 07:26 103 F H 111 H 20 154/60 H 94 L 03/17/20 07:25 86 L 03/17/20 01:25 100.3 F 96 18 160/50 H 95 - Problem List Review Problem List Initiated/Reviewed/Updated: Yes - My Orders Last 24 Hours: My Active Orders 03/16/20 12:37 oxyCODONE 5 mg PO Q4H PRN 03/16/20 16:17 Blood Culture x2 Reflex Set [OM.PC] Urgent 03/16/20 16:30 CULTURE BLOOD [BC] Stat 03/16/20 16:39 CULTURE BLOOD [BC] Stat 03/16/20 17:43 EKG 12 Lead [EK] Stat 03/16/20 18:00 Lactobacillus Rhamnosus GG [Culturelle] 1 cap PO BID Meropenem [Merrem] 1 gm Sodium Chloride 0.9% [Normal Saline] 100 ml IV Q8H Vancomycin 1 gm IV .PHARMACY TO DOSE 03/16/20 18:30 Levofloxacin/Dextrose 5%-Water [Levaquin in D5W 750 MG/150 ML] 750 mg Premix Bag 1 bag IV Q24H 03/17/20 10:00 Vancomycin 1 gm Sodium Chloride 0.9% [Normal Saline] 250 ml IV Q12H 03/17/20 10:45 Sodium Chloride 0.9% [Normal Saline] 1,000 ml IV ASDIRECTED 03/17/20 11:01 IS (RT) [RT Incentive Spirometry] [RC] Q1HWA 03/17/20 11:52 Patient Status [ADT] Routine 03/17/20 12:00 HYDROmorphone [Dilaudid] 0.5 mg IVPUSH Q3H PRN 03/17/20 13:15 Enoxaparin [Lovenox] 40 mg SUBCUT DAILY 03/18/20 05:00 Chest 1V Frontal [CR] Timed BLOOD GAS ARTERIAL [BG] Timed CBC WITH AUTO DIFF [HEME] Timed COMPREHENSIVE METABOLIC PN,CMP [CHEM] Timed MAGNESIUM [CHEM] Timed 03/18/20 05:11 CULTURE BLOOD [BC] AM CULTURE BLOOD [BC] AM Blood Culture x2 Reflex Set [OM.PC] AM 03/19/20 09:30 VANCOMYCIN TROUGH [CHEM] Timed - Plan Plan:: ASSESSMENT AND PLAN Bilateral pneumonia with sepsis-likely secondary to seeding from central line. Question as to whether her manipulation of the central line led to infection and current seeding of the lungs with pneumonia. T scan was consistent with multiple patchy areas of infiltrate consistent with hematologic seeding of infection. Recent positive blood cultures the [facility] in [place] including Enterobacter and Enterococcus related to a urinary tract infection. She does have some evidence of sepsis I have not given vigorous fluid replacement as she is received ongoing IV fluids since admission and current blood pressures within desired range. Her left sided central line has been removed by Dr. Reno. -Monitor in ICU, further fluid boluses and or norepinephrine depending on hemodynamic stability -Repeat blood cultures in a.m. -Continue current antibiotic therapy with vancomycin, meropenem, and levofloxacin, pending culture results Hypoxic respiratory compromise-secondary to bilateral pulmonary infiltrates -Supplemental oxygen as needed -Repeat blood gases in a.m. Small bowel obstruction-Long history of Crohn's disease with multiple abdominal surgeries and ileostomy. Transition point appears to be in the abdomen based on CT imaging. Improved from admission, intermittent ostomy output -Symptomatic management of pain and nausea -IV fluids -Flat and upright x-ray in the morning -Surgical follow-up per Dr. Reno -NG tube if she starts vomiting Pancytopenia-chronic, stable. This usually decompensates slightly when she gets sick or stressed. Levels are currently stable with no indication for transfusion. Thought to be related to hypersplenism. -Labs in the morning -Transfuse hemoglobin if less than 7 Stage III chronic kidney disease-history of left nephrectomy. Kidney function at baseline. Maintenance issues - - DVT prophylaxis -SCDs - GI prophylaxis -PPI - Nutrition -n.p.o. - Law catheter -not indicated CODE STATUS -full code Admission justification -this patient will be admitted for inpatient services and is medically appropriate meeting medical necessity for inpatient admission as outlined in my documentation. I reasonably expect the patient will require inpatient services that span a period time over 2 midnights. I reasonably expect this patient to be discharged or transferred within 96 hours [facility] Disposition -anticipate discharge home after the hospital stay Primary care physician -Dr. Lisa Gerber
--- NOTE | 2020-03-17 14:05 | CR ---
CHEST: Vertebral 03/17/2020 at 12:06 PM CLINICAL HISTORY:James catheter insertion COMPARISON:Prior day study FINDINGS: There has been interval removal of a left subclavian catheter and placement of a right the subclavian James catheter. The tip is in the right atrium. Patient has persistent diffuse bilateral infiltrates. There are no pleural effusions or pneumothorax. Heart and pulmonary vascularity are normal. Impression: Right-sided subclavian James catheter placed Diffuse bilateral pulmonary infiltrates persist No pneumothorax
[2020-03-17] MEDS: Norepinephrine 4 MG in Dextrose 5% in Water 246 ML IV SCH ×2 (15:18)
[2020-03-17] MEDS ORDERED: Enoxaparin 40 MG/0.4 ML Syringe SUBCUT SCH (16:00)
[2020-03-17] MEDS ORDERED: Fat Emulsion 100 ML IV SCH (16:00)
[2020-03-17] MEDS: 1: AA 5%/Calcium/D15W/Lytes 1,000 ML with MVI, Adult with Vitamin K 10 ML, Zinc/Copper/M IV SCH ×3 (16:06)
[2020-03-17] MEDS: Levofloxacin/Dextrose 5%-Water 750 MG in Premix Bag 1 BAG IV SCH (19:06)
[2020-03-18] MEDS: Norepinephrine 4 MG in Dextrose 5% in Water 246 ML IV SCH ×8 (00:37→18:21)
[2020-03-18] MEDS: Meropenem 1 GM in Sodium Chloride 0.9% 100 ML IV SCH ×3 (01:17→21:05)
[2020-03-18] MEDS: 1: AA 5%/Calcium/D15W/Lytes 1,000 ML with MVI, Adult with Vitamin K 10 ML, Zinc/Copper/M IV SCH ×9 (01:17→22:27)
[2020-03-18] MEDS: HYDROmorphone 0.5 MG/0.5 ML Syringe IVPUSH PRN ×6 (01:57→23:25)
[2020-03-18] MEDS: Pantoprazole 40 MG Vial IV SCH ×3 (04:00→15:18)
[2020-03-18] MEDS: tiZANidine 4 MG Tab PO PRN (04:05)
[2020-03-18] MEDS ORDERED: LORazepam 2 MG/ML SDV IVPUSH ONE (06:37)
[2020-03-18] MEDS: OLANZapine 5 MG Tab PO SCH (08:56)
[2020-03-18] MEDS: Lactobacillus Rhamnosus GG (Probiotic) Cap PO SCH (08:56)
[2020-03-18] MEDS: DULoxetine 30 MG Cap PO SCH (08:56)
--- NOTE | 2020-03-18 09:17 | CR ---
Abdomen Series w Chest 1V CLINICAL HISTORY: Small bowel obstruction FINDINGS: Patient has diffuse bilateral pulmonary infiltrates. These are similar to 03/17/2020. There is a right subclavian line. Tip is in the right atrium. There is mild gaseous distention of stomach. This appears similar to prior study. There may be an element of gastroparesis. There are scattered air-filled loops of small bowel in a nonspecific pattern. Patient has significant hepatosplenomegaly IMPRESSION: Persistent diffuse bilateral pulmonary infiltrates similar to prior study Mild gastric distention Nonspecific intestinal gas pattern similar to prior study Significant hepatosplenomegaly
--- NOTE | 2020-03-18 10:22 | PN ---
DATE OF SERVICE: 03/18/2020 SUBJECTIVE: Aline had her port replaced yesterday. Currently, her temperature is 100.3, respirations have been 62 to 70, and she has been having a difficult time breathing. She is receiving a unit of packed red blood cells right now. She has no other questions or concerns. OBJECTIVE: GENERAL: Aline Foley is a 59-year-old female. She is pale, short of breath. VITAL SIGNS: TPR is 100.3, 107, 62, blood pressure is 101/50. HEENT: Negative. HEART: Regular rate and rhythm. LUNGS: Very shallow, rapid respirations. Dressing over left upper chest. ASSESSMENT: 1. Removal of left James catheter and central venous catheter insertion for infected James catheter and need for long-term IV access. Date of procedure: 03/17/2020. Surgeon: Shamar Reno MD. 2. May remove dressing over new catheter site. 3. Remainder of care as per Enrique Dickerson MD. Aline Landeros PA-C /[id number]
[2020-03-18] MEDS ORDERED: propofoL 100 ML ONE (10:44)
[2020-03-18] MEDS ORDERED: Heparin Sodium 5,000 Units/ML Vial ONE (10:58)
[2020-03-18] MEDS ORDERED: Succinylcholine 200 MG/10 ML MDV ONE (11:21)
[2020-03-18] MEDS ORDERED: Propofol 200 MG/20 ML SDV ONE (11:21)
[2020-03-18] MEDS: Heparin Sodium 5,000 UNITS in Sodium Chloride 0.9% 500 ML IV SCH (11:41)
[2020-03-18] MEDS: propofoL 100 ML IV SCH ×3 (11:45→20:53)
--- NOTE | 2020-03-18 12:11 | PCM.PN ---
- General Info Date of Service: 03/18/20 Subjective Update: Ms. Foley has unfortunately developed progressive respiratory compromise through the night. She has been unable to tolerate BiPAP and has had very rapid respiratory rate with shallow inspiration. Chest x-ray from this morning shows bilateral pulmonary infiltrates, similar to yesterday. Hemodynamics have stabilized with use of IV norepinephrine. - Review of Systems General: Reports: Fever, Weakness, Fatigue. Denies: Chills Pulmonary: Reports: Shortness of Breath, Cough. Denies: Pleuritic Chest Pain, Sputum, Hemoptysis, Wheezing Cardiovascular: Reports: Dyspnea on Exertion. Denies: Chest Pain, Palpitations, Orthopnea, PND, Edema, Lightheadedness Gastrointestinal: Reports: Abdominal Pain, Decreased Appetite. Denies: Constipation, Diarrhea, Difficulty Swallowing, Nausea, Vomiting Genitourinary: Reports: No Symptoms - Patient Data Vitals - Most Recent: Last Vital Signs Temp 102.1 F H 03/18/20 11:00 Pulse 117 H 03/18/20 09:05 Resp 32 H 03/18/20 11:35 BP 130/55 L 03/18/20 11:35 Pulse Ox 98 03/18/20 11:35 Weight - Most Recent: 167 lb 8.821 oz I&O - Last 24 Hours: Intake & Output 03/17/20 03/18/20 03/18/20 22:59 06:59 14:59 Intake Total 748 2986 328 Output Total 650 600 250 Balance 98 2386 78 Lab Results Last 24 Hours: Laboratory Results - last 24 hr 03/17/20 03/17/20 03/18/20 Range/Units 04:00 16:30 06:20 WBC 2.7 L (4.5-11.0) K/uL RBC 2.21 L (3.30-5.50) M/uL Hgb 6.5 L* (12.0-15.0) g/dL Hct 21.8 L (36.0-48.0) % MCV 99 H (80-98) fL MCH 29 (27-31) pg MCHC 30 L (32-36) % Plt Count 77 L (150-400) K/uL Add Manual Diff Yes Neutrophils % (Manual) 68 H (36-66) % Band Neutrophils % 19 H (5-11) % Lymphocytes % (Manual) 10 L (24-44) % Monocytes % (Manual) 3 (2-6) % Puncture Site Lt radial ABG pH 7.385 (7.350-7.450) ABG pCO2 28.6 L (35.0-42.0) mmHg ABG pO2 103.0 H (75.0-100.0) mmHg ABG HCO3 16.7 L (22.0-26.0) mmol/L ABG Total CO2 16.1 L (21.0-25.0) mmol/L ABG O2 Saturation 97.9 (95.0-98.0) % ABG O2 Content 10.1 L (15.0-23.0) %vol ABG Base Excess -7.1 mm/L ABG Hemoglobin 7.4 L (12.0-16.0) g/dL ABG Oxyhemoglobin 95.6 % ABG Carboxyhemoglobin 1.6 (0.0-1.6) % ABG Methemoglobin 0.8 % César Test Passed O2 Delivery Device Bipap Oxygen Flow Rate L Sodium (140-148) mmol/L Potassium (3.6-5.2) mmol/L Chloride (100-108) mmol/L Carbon Dioxide (21-32) mmol/L Anion Gap (5.0-14.0) mmol/L BUN (7-18) mg/dL Creatinine (0.6-1.0) mg/dL Est Cr Clr Drug Dosing mL/min Estimated GFR (MDRD) (>60) Glucose (74-106) mg/dL Calcium (8.5-10.1) mg/dL Magnesium (1.8-2.4) mg/dL Total Bilirubin (0.2-1.0) mg/dL AST (15-37) U/L ALT (12-78) U/L Alkaline Phosphatase (46-116) U/L Total Protein (6.4-8.2) g/dL Albumin (3.4-5.0) g/dL Globulin (2.3-3.5) g/dL Albumin/Globulin Ratio (1.2-2.2) Vancomycin Trough (10.0-20.0) ug/mL Blood Type A POSITIVE Gel Antibody Screen Positive A* Crossmatch See Detail 03/18/20 03/18/20 03/18/20 Range/Units 06:20 06:20 10:00 WBC (4.5-11.0) K/uL RBC (3.30-5.50) M/uL Hgb (12.0-15.0) g/dL Hct (36.0-48.0) % MCV (80-98) fL MCH (27-31) pg MCHC (32-36) % Plt Count (150-400) K/uL Add Manual Diff Neutrophils % (Manual) (36-66) % Band Neutrophils % (5-11) % Lymphocytes % (Manual) (24-44) % Monocytes % (Manual) (2-6) % Puncture Site Rt radial ABG pH 7.365 (7.350-7.450) ABG pCO2 34.7 L (35.0-42.0) mmHg ABG pO2 56.2 L (75.0-100.0) mmHg ABG HCO3 19.3 L (22.0-26.0) mmol/L ABG Total CO2 18.9 L (21.0-25.0) mmol/L ABG O2 Saturation 88.3 L (95.0-98.0) % ABG O2 Content 8.2 L (15.0-23.0) %vol ABG Base Excess -5.0 mm/L ABG Hemoglobin 6.8 L (12.0-16.0) g/dL ABG Oxyhemoglobin 85.8 % ABG Carboxyhemoglobin 1.9 H (0.0-1.6) % ABG Methemoglobin 0.9 % César Test Pass O2 Delivery Device Nasal cannula Oxygen Flow Rate 3.0 L Sodium 136 L (140-148) mmol/L Potassium 4.3 (3.6-5.2) mmol/L Chloride 105 (100-108) mmol/L Carbon Dioxide 21 (21-32) mmol/L Anion Gap 14.3 H (5.0-14.0) mmol/L BUN 23 H D (7-18) mg/dL Creatinine 1.8 H (0.6-1.0) mg/dL Est Cr Clr Drug Dosing 32.23 mL/min Estimated GFR (MDRD) 29 L (>60) Glucose 146 H (74-106) mg/dL Calcium 7.4 L (8.5-10.1) mg/dL Magnesium 1.7 L (1.8-2.4) mg/dL Total Bilirubin 1.2 H D (0.2-1.0) mg/dL AST 30 D (15-37) U/L ALT 15 (12-78) U/L Alkaline Phosphatase 82 (46-116) U/L Total Protein 5.6 L (6.4-8.2) g/dL Albumin 1.6 L (3.4-5.0) g/dL Globulin 4.0 H (2.3-3.5) g/dL Albumin/Globulin Ratio 0.4 L (1.2-2.2) Vancomycin Trough 17.0 (10.0-20.0) ug/mL Blood Type Gel Antibody Screen Crossmatch Eliud Results Last 24 Hours: Microbiology 03/16/20 16:39 Aerobic Blood Culture - Preliminary Blood - Port-A-Cath Gram Positive Cocci Anaerobic Blood Culture - Preliminary Gram Positive Cocci 03/17/20 11:35 Gram Stain - Final Other - James Line Wound Culture - Preliminary NO GROWTH AFTER 1 DAY Anaerobic Culture - Preliminary NO GROWTH AFTER 1 DAY 03/17/20 11:34 Gram Stain - Final Other - Abscess Wound Culture - Preliminary NO GROWTH AFTER 1 DAY Anaerobic Culture - Preliminary NO GROWTH AFTER 1 DAY 03/16/20 16:30 Aerobic Blood Culture - Preliminary Blood - Artery NO GROWTH AFTER 1 DAY Anaerobic Blood Culture - Preliminary NO GROWTH AFTER 1 DAY Med Orders - Current: Current Medications Duloxetine HCl (Cymbalta) 60 mg PO DAILY [facility] Last Admin: 03/18/20 08:56 Dose: 60 mg Documented by: Hydromorphone HCl (Dilaudid) 0.5 mg IVPUSH Q3H PRN PRN Reason: Pain Last Admin: 03/18/20 08:10 Dose: 0.5 mg Documented by: Meropenem 1 gm/ Sodium (Chloride) 100 mls @ 200 mls/hr IV Q8H [facility] Last Admin: 03/18/20 09:56 Dose: 200 mls/hr Documented by: Levofloxacin/Dextrose 750 mg/ (Premix) 150 mls @ 100 mls/hr IV Q24H [facility] Last Admin: 03/17/20 19:06 Dose: 100 mls/hr Documented by: Vancomycin HCl 1 gm/ Sodium (Chloride) 250 mls @ 165 mls/hr IV Q12H [facility] Last Admin: 03/18/20 10:47 Dose: 165 mls/hr Documented by: Multivitamins/Minerals 10 ml/Zinc 1 ml/ Amino Ac/Electrol/Dextrose/Calcium 1,011 mls @ 100 mls/hr IV .BY DURATION [facility] Last Admin: 03/17/20 16:06 Dose: 100 mls/hr Documented by: Amino Ac/Electrol/Dextrose/Calcium (Clinimix E 5/15) 1,000 mls @ 100 mls/hr IV .BY DURATION [facility] Last Admin: 03/18/20 01:17 Dose: 100 mls/hr Documented by: Norepinephrine Bitartrate 4 mg (/ Dextrose/Water) 250 mls @ 7.5 mls/hr IV TITRATE [facility]; Protocol Last Titration: 03/18/20 09:30 Dose: 7 mcg/min, 26.25 mls/hr Documented by: Propofol (Diprivan 100 Ml) 100 mls @ 2.28 mls/hr IV TITRATE [facility]; Protocol Imipramine HCl (Imipramine Hcl) 200 mg PO BEDTIME [facility] Last Admin: 03/17/20 20:04 Dose: 200 mg Documented by: Olanzapine (Zyprexa) 5 mg PO BID [facility] Last Admin: 03/18/20 08:56 Dose: 5 mg Documented by: Ondansetron HCl (Zofran) 4 mg IV Q6H PRN PRN Reason: Nausea/Vomiting Ondansetron HCl (Zofran Odt) 4 mg PO Q6H PRN PRN Reason: Nausea able to take PO Pantoprazole Sodium (Protonix Iv) 40 mg IV Q12H [facility] Last Admin: 03/18/20 05:48 Dose: Not Given Documented by: Discontinued Medications Acetaminophen (Tylenol Extra Strength) 1,000 mg PO ONETIME ONE Stop: 03/15/20 11:16 Last Admin: 03/15/20 11:26 Dose: 1,000 mg Documented by: Acetaminophen (Tylenol) 650 mg PO Q4H PRN PRN Reason: Pain (Mild 1-3)/fever Last Admin: 03/17/20 19:56 Dose: 650 mg Documented by: Bupivacaine HCl (Marcaine 0.5%) Confirm Administered Dose 50 ml .ROUTE .STK-MED ONE Stop: 03/17/20 10:55 Last Admin: 03/17/20 11:30 Dose: 3.5 ml Documented by: Enoxaparin Sodium (Lovenox) 40 mg SUBCUT Q24H [facility] Last Admin: 03/17/20 16:05 Dose: 40 mg Documented by: Fentanyl (Sublimaze) Confirm Administered Dose 100 mcg .ROUTE .STK-MED ONE Stop: 03/17/20 09:55 Heparin Sodium (Porcine) (Heparin Lock Flush 100 Units/Ml) Confirm Administered Dose 500 units .ROUTE .STK-MED ONE Stop: 03/17/20 10:55 Last Admin: 03/17/20 11:40 Dose: 500 units Documented by: Heparin Sodium (Porcine) (Heparin Sodium) Confirm Administered Dose 5,000 units .ROUTE .STK-MED ONE Stop: 03/18/20 10:59 Last Admin: 03/18/20 11:54 Dose: Not Given Documented by: Hydromorphone HCl (Dilaudid) 0.5 mg IVPUSH ONETIME ONE Stop: 03/15/20 10:00 Last Admin: 03/15/20 10:10 Dose: 0.5 mg Documented by: Hydromorphone HCl (Dilaudid) 0.5 mg IVPUSH ONETIME ONE Stop: 03/15/20 11:10 Last Admin: 03/15/20 11:15 Dose: 0.5 mg Documented by: Hydromorphone HCl (Dilaudid) 0.5 mg IVPUSH ONETIME ONE Stop: 03/15/20 13:39 Last Admin: 03/15/20 14:04 Dose: 0.5 mg Documented by: Hydromorphone HCl (Dilaudid) 1 mg IVPUSH Q2H PRN PRN Reason: Pain (severe 7-10) Last Admin: 03/16/20 09:43 Dose: 1 mg Documented by: Sodium Chloride (Normal Saline) 1,000 mls @ 500 mls/hr IV ASDIRECTED [facility] Last Admin: 03/15/20 11:13 Dose: 500 mls/hr Documented by: Magnesium Sulfate (Magnesium Sulfate In Water Premix) 2 gm in 50 mls @ 25 mls/hr IV ONETIME ONE Stop: 03/15/20 12:43 Last Admin: 03/15/20 11:14 Dose: 25 mls/hr Documented by: Sodium Chloride (Normal Saline) 74 mls @ 3 mls/sec IV ASDIRECTED [facility] Stop: 03/15/20 11:31 Lactated Ringer's (Ringers, Lactated) 1,000 mls @ 0 mls/hr IV ASDIRECTED [facility] Last Admin: 03/16/20 09:48 Dose: 100 mls/hr Documented by: Magnesium Sulfate (Magnesium Sulfate In Water Premix) 2 gm in 50 mls @ 12.5 mls/hr IV Q6H [facility] Stop: 03/16/20 05:59 Last Admin: 03/16/20 02:41 Dose: 12.5 mls/hr Documented by: Fat Emulsion Intravenous (Intralipid 20%) 100 mls @ 8.3 mls/hr IV Q24H [facility] Last Admin: 03/16/20 16:01 Dose: 8.3 mls/hr Documented by: Multivitamins/Minerals 10 ml/Zinc 1 ml/ Amino Ac/Electrol/Dextrose/Calcium 1,011 mls @ 100 mls/hr IV .BY DURATION [facility] Last Admin: 03/16/20 12:07 Dose: 100 mls/hr Documented by: Amino Ac/Electrol/Dextrose/Calcium (Clinimix E /15) 1,000 mls @ 100 mls/hr IV .BY DURATION [facility] Last Admin: 03/16/20 21:55 Dose: 100 mls/hr Documented by: Sodium Chloride (Normal Saline) 100 mls @ 3 mls/sec IV ASDIRECTED [facility] Last Admin: 03/16/20 19:31 Dose: 3 mls/sec Documented by: Vancomycin HCl 2 gm/ Sodium (Chloride) 500 mls @ 250 mls/hr IV ONETIME ONE Stop: 03/16/20 21:59 Last Admin: 03/16/20 22:41 Dose: 250 mls/hr Documented by: Vancomycin HCl 1 gm/ Sodium (Chloride) 250 mls @ 166.667 mls/hr IV Q12H [facility] Sodium Chloride (Normal Saline) 1,000 mls @ 100 mls/hr IV ASDIRECTED [facility] Last Admin: 03/18/20 00:39 Dose: 100 mls/hr Documented by: Sodium Chloride (Normal Saline) 500 mls @ 500 mls/hr IV .BOLUS ONE Stop: 03/17/20 11:41 Last Admin: 03/17/20 10:56 Dose: 500 mls/hr Documented by: Lidocaine HCl (Xylocaine-Mpf 1%) Confirm Administered Dose 2 mls @ as directed .ROUTE .STK-MED ONE Stop: 03/17/20 11:04 Fat Emulsion Intravenous (Intralipid 20%) 100 mls @ 8.3 mls/hr IV Q24H [facility] Last Admin: 03/17/20 16:07 Dose: 8.3 mls/hr Documented by: Sodium Chloride (Normal Saline) 1,000 mls @ 500 mls/hr IV ASDIRECTED [facility] Stop: 03/17/20 18:46 Propofol (Diprivan 100 Ml) Confirm Administered Dose 100 mls @ as directed .ROUTE .STK-MED ONE Stop: 03/18/20 10:45 Last Admin: 03/18/20 11:54 Dose: Not Given Documented by: Ibuprofen (Motrin) 400 mg PO ONETIME ONE Stop: 03/17/20 13:01 Last Admin: 03/17/20 12:59 Dose: 400 mg Documented by: Iopamidol (Isovue-300 (61%)) 112 ml IV ONETIME ONE Stop: 03/15/20 11:17 Last Admin: 03/15/20 19:33 Dose: Not Given Documented by: Iopamidol (Isovue-370 (76%)) 100 ml IV . DIRECTED [facility] Last Admin: 03/16/20 19:31 Dose: 100 ml Documented by: Lactobacillus Rhamnosus (Culturelle) 1 cap PO BID [facility] Last Admin: 03/18/20 08:56 Dose: 1 cap Documented by: Lidocaine/Epinephrine (Xylocaine 1% With Epinephrine 1:100,000) Confirm Administered Dose 50 ml .ROUTE .STK-MED ONE Stop: 03/17/20 10:55 Last Admin: 03/17/20 11:30 Dose: 3.5 ml Documented by: Lorazepam (Ativan) 1 mg IVPUSH ONETIME ONE Stop: 03/15/20 11:31 Last Admin: 03/15/20 11:40 Dose: 1 mg Documented by: Lorazepam (Ativan) 0.5 mg IVPUSH Q4H PRN PRN Reason: Nausea/Vomiting Lorazepam (Ativan) 0.5 mg IVPUSH ONETIME ONE Stop: 03/18/20 06:38 Last Admin: 03/18/20 07:04 Dose: 0.5 mg Documented by: Midazolam HCl (Versed 1 Mg/Ml) Confirm Administered Dose 2 mg .ROUTE .STK-MED ONE Stop: 03/17/20 09:56 Non-Formulary Medication (Total Parenteral Nutrition, Central) 1,000 ml .XX .Continue Order [facility] Stop: 03/17/20 08:01 Oxycodone HCl (Oxycodone) 5 mg PO Q4H PRN PRN Reason: Pain Last Admin: 03/17/20 13:29 Dose: 5 mg Documented by: Propofol (Diprivan 20 Ml) Confirm Administered Dose 200 mg .ROUTE .STK-MED ONE Stop: 03/17/20 09:55 Propofol (Diprivan 20 Ml) Confirm Administered Dose 200 mg .ROUTE .STK-MED ONE Stop: 03/18/20 11:22 Sodium Chloride (Saline Flush) 10 ml FLUSH ASDIRECTED PRN PRN Reason: Keep Vein Open Last Admin: 03/15/20 10:11 Dose: 10 ml Documented by: Sodium Chloride (Saline Flush) 10 ml FLUSH ONETIME ONE Stop: 03/15/20 11:17 Last Admin: 03/16/20 19:31 Dose: 10 ml Documented by: Sodium Chloride (Normal Saline) 10 ml FLUSH ONETIME ONE Stop: 03/16/20 17:53 Last Admin: 03/16/20 20:53 Dose: Not Given Documented by: Succinylcholine Chloride (Quelicin) Confirm Administered Dose 200 mg .ROUTE .STK-MED ONE Stop: 03/18/20 11:22 Tizanidine HCl (Zanaflex) 4 mg PO Q6H PRN PRN Reason: muscle cramps Last Admin: 03/17/20 13:32 Dose: 4 mg Documented by: Vancomycin HCl (Vancomycin) 1 gm IV .PHARMACY TO DOSE [facility] Stop: 03/17/20 18:01 - Exam Quality Assessment: Supplemental Oxygen, Central Line/PICC, Urine Catheter, DVT Prophylaxis General: Sedated, Lethargic Lungs: Decreased Breath Sounds, Rales, Rhonchi. No: Crackles, Rub, Wheezing Cardiovascular: Regular Rate, Regular Rhythm, No Murmurs GI/Abdominal Exam: Soft, Tender. No: Distended, Guarding, Rigid, Rebound Extremities: Non-Tender, No Pedal Edema Sepsis Event Note - Evaluation Sepsis Screening Result: Severe Sepsis Risk - Focused Exam Vital Signs: Vital Signs Temp Temp Pulse Resp BP Pulse Ox 12/09/20 11:35 32 H 130/55 L 98 03/18/20 11:15 34 H 109/47 L 99 03/18/20 11:00 102.1 F H 63 H 144/70 H 91 L 03/18/20 10:00 54 H 100/51 L 93 L 03/18/20 09:28 100.5 F 67 H 131/44 L 91 L 03/18/20 09:05 100.4 F 117 H 59 H 135/48 L 90 L 03/18/20 08:35 100.3 F 61 H 140/55 L 89 L 03/18/20 08:05 100.3 F 62 H 101/50 L 94 L 03/18/20 07:50 99.6 F 70 H 104/50 L 94 L 03/18/20 07:35 99.5 F 58 H 108/48 L 95 03/18/20 07:20 100.5 F 61 H 102/44 L 98 03/18/20 07:05 100.1 F 98 35 H 102/49 L 98 03/18/20 06:00 100.4 F 46 H 98/44 L 100 03/18/20 05:00 100.4 F 50 H 123/55 L 100 03/18/20 04:00 98.1 F 54 H 114/49 L 94 L 03/18/20 03:00 51 H 113/42 L 93 L 03/18/20 02:00 99.8 F 50 H 110/42 L 92 L 03/18/20 01:00 19 94/42 L 93 L - Problem List Review Problem List Initiated/Reviewed/Updated: Yes - My Orders Last 24 Hours: My Active Orders 03/17/20 11:52 Patient Status [ADT] Routine 03/17/20 12:00 HYDROmorphone [Dilaudid] 0.5 mg IVPUSH Q3H PRN 03/17/20 15:04 RT BiPAP/CPAP [RC] ASDIRECTED 03/17/20 15:15 Norepinephrine [Levophed] 4 mg Dextrose 5% in Water 246 ml IV TITRATE 03/18/20 05:11 Blood Culture x2 Reflex Set [OM.PC] AM 03/18/20 05:56 CULTURE BLOOD [BC] AM 03/18/20 06:20 CULTURE BLOOD [BC] AM 03/18/20 06:35 Transfuse Red Blood Cells [COMM] Stat 03/18/20 11:45 RASS Sedation Scale [RC] ASDIRECTED Propofol Drip @ 5 MCG/KG/MIN(100ml) propofoL [Diprivan 100 ML] 100 ml IV TITRATE Desired Level of Sedation (RASS) [AST] Click to Edit 03/18/20 11:55 Antiembolic Devices [RC] .Routine Sequential Compression Device [OM.PC] Routine 03/18/20 11:57 Chest 1V Frontal [CR] Stat 03/18/20 11:59 Mechanical Ventilation [RT Ventilator, Adult] [RC] ASDIRECTED 03/18/20 12:02 Urinary Catheter Assessment [RC] ASDIRECTED 03/18/20 12:15 Insert Law Catheter [Insert Urinary Catheter] [OM.PC] Q24H BLOOD GAS ARTERIAL [BG] Stat 03/18/20 17:00 BASIC METABOLIC PANEL,BMP [CHEM] Stat BLOOD GAS ARTERIAL [BG] Stat CBC WITH AUTO DIFF [HEME] Stat 03/19/20 05:00 Chest 1V Frontal [CR] DAILY BLOOD GAS ARTERIAL [BG] Timed CBC WITH AUTO DIFF [HEME] Timed COMPREHENSIVE METABOLIC PN,CMP [CHEM] Timed MAGNESIUM [CHEM] Timed 03/20/20 05:00 Chest 1V Frontal [CR] DAILY 03/21/20 05:00 Chest 1V Frontal [CR] DAILY 03/22/20 05:00 Chest 1V Frontal [CR] DAILY 03/23/20 05:00 Chest 1V Frontal [CR] DAILY - Plan Plan:: ASSESSMENT AND PLAN Bilateral pneumonia with sepsis-unfortunately she is developed progressive respiratory compromise during the night, requiring intubation and mechanical ventilation. She had marked temperature elevations yesterday and eventually did develop some hypotension requiring use of IV norepinephrine. Hemodynamics have been more stable with use of norepinephrine. Most recent cultures, from Monday are growing gram-positive cocci, final ID and sensitivities pending -Monitor in ICU -blood cultures pending, including repeat cultures obtained this morning -Continue current antibiotic therapy with vancomycin, meropenem, and levofloxacin, pending culture results Hypoxic respiratory failure-secondary to bilateral pulmonary infiltrates -Mechanical ventilation Small bowel obstruction-Long history of Crohn's disease with multiple abdominal surgeries and ileostomy. Transition point appears to be in the abdomen based on CT imaging. Improved from admission, intermittent ostomy output -Symptomatic management of pain and nausea -IV fluids -Flat and upright x-ray in the morning -Surgical follow-up per Dr. Reno -NG tube if she starts vomiting Pancytopenia-chronic, stable. This usually decompensates slightly when she gets sick or stressed. Has dropped below 7 during the night -Transfuse 1 unit of red blood cells -Follow-up hemoglobin this afternoon and in a.m. -Transfuse hemoglobin less than 8, because of current respiratory failure and infection Stage III chronic kidney disease-history of left nephrectomy. Renal function has worsened over the last 24 hours -Closely monitor urine output and renal function Maintenance issues - - DVT prophylaxis -SCDs - GI prophylaxis -PPI - Nutrition -n.p.o. - Law catheter -placed to closely monitor urine output CODE STATUS -full code Admission justification -this patient will be admitted for inpatient services and is medically appropriate meeting medical necessity for inpatient admission as outlined in my documentation. I reasonably expect the patient will require inpatient services that span a period time over 2 midnights. I reasonably expect this patient to be discharged or transferred within 96 hours [facility] Disposition -anticipate discharge home after the hospital stay Primary care physician -Dr. Lisa Gerber
--- NOTE | 2020-03-18 12:46 | CR ---
CHEST: Portable 03/18/2020 at 12:40 PM CLINICAL HISTORY:Postintubation COMPARISON:Earlier 03/18/2020 FINDINGS: Patient has persistent bilateral pulmonary infiltrates. There may be a slight increase since prior studies. Endotracheal tube is been placed in the distal third of the trachea. It is approximately 2 cm from the oly. There is a right subclavian catheter. Tip is in the right atrium. IMPRESSION: Endotracheal intubation. Tube appears in good position Diffuse bilateral pulmonary infiltrates mainly increased slightly since prior study
--- NOTE | 2020-03-18 13:14 | ANES ---
DATE OF SERVICE: 03/18/2020 Aline is a 59-year-old female, patient of Dr. Enrique Dickerson, in her intensive care unit. I was consulted to assess the patient for acute respiratory distress for intubation. Upon arrival, I found a 59-year-old female patient, very tachypneic, with O2 saturations in the low 80s, tachycardic. I discussed with her that we would be placing an endotracheal tube, and she was agreeable. The BiPAP was removed, and I sedated her with 150 mg of propofol. I was able to cannulate the trachea with an 8 endotracheal tube without difficulty. MAC 3 blade was used. Bilateral breath sounds and positive end-tidal CO2. The tube was secured at 22 to 23 cm per RT. I then proceeded to listen to bilateral breath sounds. O2 saturations within a short time in the mid 90s range. I then proceeded to locate the left radial artery. Sterile prep and drape. Sterile gloves. I cannulated that with an arterial needle, I believe it was 20-gauge, with definitely good blood flow. I secured it in place with Vicryl suture with Charles needle as well as tape. She tolerated both procedures quite well. Please refer to the nurse's notes for vital signs and neurological status, which were within normal range for the procedure, and I reported off to the staff. Enrique Villarreal CRNA /[id number]
[2020-03-18] MEDS: Acetaminophen 1,000 MG in Premix Bag 1 BAG IV PRN ×2 (15:51→23:24)
[2020-03-19] MEDS: propofoL 100 ML IV SCH ×7 (02:20→22:11)
[2020-03-19] MEDS: Norepinephrine 4 MG in Dextrose 5% in Water 246 ML IV SCH ×4 (03:22→13:42)
[2020-03-19] MEDS: Pantoprazole 40 MG Vial IV SCH ×2 (04:48→16:14)
[2020-03-19] MEDS: HYDROmorphone 0.5 MG/0.5 ML Syringe IVPUSH PRN ×5 (05:36→22:32)
[2020-03-19] MEDS: Acetaminophen 1,000 MG in Premix Bag 1 BAG IV PRN (07:48)
[2020-03-19] MEDS: 1: AA 5%/Calcium/D15W/Lytes 1,000 ML with MVI, Adult with Vitamin K 10 ML, Zinc/Copper/M IV SCH ×6 (08:28→18:42)
[2020-03-19] MEDS: DULoxetine 30 MG Cap PO SCH (08:35)
--- NOTE | 2020-03-19 09:20 | CR ---
Abdomen 2V AP Flat Upright CLINICAL HISTORY: Follow-up bowel obstruction FINDINGS: Patient is diffuse bilateral pulmonary infiltrates similar to prior study. No free air is identified. There is a gas-filled stomach. Small intestinal gas pattern is nonacute. There is a right lower quadrant ostomy site. There is significant hepatosplenomegaly IMPRESSION: Persistent bilateral infiltrates Air-filled stomach similar to prior study Postoperative changes in the abdomen
--- NOTE | 2020-03-19 09:21 | CR ---
CHEST: Portable 03/19/2020 at 4:37 AM CLINICAL HISTORY:Respiratory failure COMPARISON:03/18/2020 FINDINGS: Endotracheal tube remains in the distal third of the trachea unchanged in position. Right subclavian venous line remains in right atrium. There are persistent diffuse bilateral pulmonary infiltrates similar to prior study if not slightly increased. This may be technical. IMPRESSION: Persistent moderate bilateral pulmonary infiltrates Endotracheal tube is unchanged in position
[2020-03-19] MEDS: Meropenem 1 GM in Sodium Chloride 0.9% 100 ML IV SCH ×2 (10:14→22:11)
--- NOTE | 2020-03-19 12:47 | PCM.PN ---
- General Info Date of Service: 03/19/20 Subjective Update: Ms. Foley has been relatively stable over the past 24 hours. She continues to require norepinephrine to maintain adequate blood pressures, although pressures overall are improved and we are in the process of tapering norepinephrine. Respiratory status stable on current ventilatory settings, oxygenating well, continues to hyperventilate with a mild respiratory alkalosis and metabolic compensation. She is unable to provide a meaningful history concerning symptoms or review of systems because of intubation and sedation. - Patient Data Vitals - Most Recent: Last Vital Signs Temp 97.6 F 03/19/20 12:00 Pulse 117 H 03/18/20 09:05 Resp 34 H 03/19/20 12:00 BP 136/68 03/19/20 12:00 Pulse Ox 97 03/19/20 12:00 Weight - Most Recent: 167 lb 8.821 oz I&O - Last 24 Hours: Intake & Output 03/18/20 03/19/20 03/19/20 22:59 06:59 14:59 Intake Total 2477 2102 Output Total 365 1000 Balance 2112 1102 Lab Results Last 24 Hours: Laboratory Results - last 24 hr 03/18/20 03/18/20 03/18/20 Range/Units 16:48 16:48 16:48 WBC 2.2 L (4.5-11.0) K/uL RBC 2.51 L (3.30-5.50) M/uL Hgb 7.5 L (12.0-15.0) g/dL Hct 24.6 L (36.0-48.0) % MCV 98 (80-98) fL MCH 30 (27-31) pg MCHC 31 L (32-36) % Plt Count 60 L (150-400) K/uL Neut % (Auto) (36-66) % Lymph % (Auto) (24-44) % [place] % (Auto) (2-6) % Eos % (Auto) (2-4) % Baso % (Auto) (0-1) % Add Manual Diff Yes Neutrophils % (Manual) 70 H (36-66) % Band Neutrophils % 16 H (5-11) % Lymphocytes % (Manual) 12 L (24-44) % Monocytes % (Manual) 2 (2-6) % Puncture Site A-line ABG pH 7.430 (7.350-7.450) ABG pCO2 26.3 L (35.0-42.0) mmHg ABG pO2 146.0 H (75.0-100.0) mmHg ABG HCO3 17.2 L (22.0-26.0) mmol/L ABG Total CO2 16.3 L (21.0-25.0) mmol/L ABG O2 Saturation 99.5 H (95.0-98.0) % ABG O2 Content 10.6 L (15.0-23.0) %vol ABG Base Excess -5.9 mm/L ABG Hemoglobin 7.7 L (12.0-16.0) g/dL ABG Oxyhemoglobin 95.1 % ABG Carboxyhemoglobin 2.7 H (0.0-1.6) % ABG Methemoglobin 1.7 % César Test A-line O2 Delivery Device Nasal cannula Oxygen Flow Rate L Sodium 137 L (140-148) mmol/L Potassium 4.3 (3.6-5.2) mmol/L Chloride 106 (100-108) mmol/L Carbon Dioxide 18 L (21-32) mmol/L Anion Gap 17.3 H (5.0-14.0) mmol/L BUN 27 H (7-18) mg/dL Creatinine 1.8 H (0.6-1.0) mg/dL Est Cr Clr Drug Dosing 32.23 mL/min Estimated GFR (MDRD) 29 L (>60) Glucose 141 H (74-106) mg/dL Calcium 7.5 L (8.5-10.1) mg/dL Magnesium (1.8-2.4) mg/dL Total Bilirubin (0.2-1.0) mg/dL AST (15-37) U/L ALT (12-78) U/L Alkaline Phosphatase (46-116) U/L Total Protein (6.4-8.2) g/dL Albumin (3.4-5.0) g/dL Globulin (2.3-3.5) g/dL Albumin/Globulin Ratio (1.2-2.2) 03/19/20 03/19/20 03/19/20 Range/Units 05:00 05:00 05:00 WBC 2.5 L (4.5-11.0) K/uL RBC 2.54 L (3.30-5.50) M/uL Hgb 7.5 L (12.0-15.0) g/dL Hct 24.8 L (36.0-48.0) % MCV 98 (80-98) fL MCH 30 (27-31) pg MCHC 30 L (32-36) % Plt Count 57 L (150-400) K/uL Neut % (Auto) 77 H (36-66) % Lymph % (Auto) 18 L (24-44) % [place] % (Auto) 5 (2-6) % Eos % (Auto) 0 L (2-4) % Baso % (Auto) 0 (0-1) % Add Manual Diff Neutrophils % (Manual) (36-66) % Band Neutrophils % (5-11) % Lymphocytes % (Manual) (24-44) % Monocytes % (Manual) (2-6) % Puncture Site Line ABG pH 7.404 (7.350-7.450) ABG pCO2 28.0 L (35.0-42.0) mmHg ABG pO2 120.0 H (75.0-100.0) mmHg ABG HCO3 17.2 L (22.0-26.0) mmol/L ABG Total CO2 16.4 L (21.0-25.0) mmol/L ABG O2 Saturation 99.0 H (95.0-98.0) % ABG O2 Content 10.4 L (15.0-23.0) %vol ABG Base Excess -6.4 mm/L ABG Hemoglobin 7.6 L (12.0-16.0) g/dL ABG Oxyhemoglobin 94.9 % ABG Carboxyhemoglobin 2.8 H (0.0-1.6) % ABG Methemoglobin 1.3 % César Test O2 Delivery Device Vapotherm Oxygen Flow Rate L Sodium 137 L (140-148) mmol/L Potassium 4.0 (3.6-5.2) mmol/L Chloride 107 (100-108) mmol/L Carbon Dioxide 18 L (21-32) mmol/L Anion Gap 16.0 H (5.0-14.0) mmol/L BUN 28 H (7-18) mg/dL Creatinine 1.7 H (0.6-1.0) mg/dL Est Cr Clr Drug Dosing 34.13 mL/min Estimated GFR (MDRD) 31 L (>60) Glucose 149 H (74-106) mg/dL Calcium 7.5 L (8.5-10.1) mg/dL Magnesium 1.8 (1.8-2.4) mg/dL Total Bilirubin 2.8 H D (0.2-1.0) mg/dL AST 78 H D (15-37) U/L ALT 24 (12-78) U/L Alkaline Phosphatase 90 (46-116) U/L Total Protein 5.6 L (6.4-8.2) g/dL Albumin 1.4 L (3.4-5.0) g/dL Globulin 4.2 H (2.3-3.5) g/dL Albumin/Globulin Ratio 0.3 L (1.2-2.2) Eliud Results Last 24 Hours: Microbiology 03/18/20 06:20 Aerobic Blood Culture - Preliminary Blood - Artery NO GROWTH AFTER 1 DAY Anaerobic Blood Culture - Preliminary NO GROWTH AFTER 1 DAY 03/18/20 05:56 Aerobic Blood Culture - Preliminary Blood - Picc Line NO GROWTH AFTER 1 DAY Anaerobic Blood Culture - Preliminary NO GROWTH AFTER 1 DAY 03/16/20 16:39 Aerobic Blood Culture - Final Blood - Port-A-Cath Enterococcus Faecalis Anaerobic Blood Culture - Preliminary Gram Positive Cocci 03/16/20 16:30 Aerobic Blood Culture - Preliminary Blood - Artery NO GROWTH AFTER 2 DAYS Anaerobic Blood Culture - Preliminary NO GROWTH AFTER 2 DAYS 03/17/20 11:35 Gram Stain - Final Other - James Line Wound Culture - Preliminary Anaerobic Culture - Preliminary NO GROWTH AFTER 2 DAYS 03/17/20 11:34 Gram Stain - Final Other - Abscess Wound Culture - Preliminary Anaerobic Culture - Preliminary NO GROWTH AFTER 2 DAYS Med Orders - Current: Current Medications Duloxetine HCl (Cymbalta) 60 mg PO DAILY [facility]E Last Admin: 03/19/20 08:35 Dose: Not Given Documented by: Furosemide (Lasix) 40 mg IVPUSH NOW ONE Stop: 03/19/20 12:39 Hydromorphone HCl (Dilaudid) 0.5 mg IVPUSH Q3H PRN PRN Reason: Pain Last Admin: 03/19/20 08:44 Dose: 0.5 mg Documented by: Multivitamins/Minerals 10 ml/Zinc 1 ml/ Amino Ac/Electrol/Dextrose/Calcium 1,011 mls @ 100 mls/hr IV .BY DURATION [facility] Last Admin: 03/18/20 22:27 Dose: 100 mls/hr Documented by: Amino Ac/Electrol/Dextrose/Calcium (Clinimix E 08/22) 1,000 mls @ 100 mls/hr IV .BY DURATION [facility] Last Admin: 03/19/20 08:28 Dose: 100 mls/hr Documented by: Norepinephrine Bitartrate 4 mg (/ Dextrose/Water) 250 mls @ 7.5 mls/hr IV TITRATE [facility]; Protocol Last Titration: 03/19/20 12:02 Dose: 5 mcg/min, 18.75 mls/hr Documented by: Propofol (Diprivan 100 Ml) 100 mls @ 2.28 mls/hr IV TITRATE [facility]; Protocol Last Titration: 03/19/20 10:16 Dose: 60 mcg/kg/min, 27.36 mls/hr Documented by: Heparin Sodium (Porcine) 5,000 (units/ Sodium Chloride) 501 mls @ 1 mls/hr IV ASDIRECTED [facility] Last Admin: 03/18/20 11:41 Dose: 1 mls/hr Documented by: Levofloxacin/Dextrose 750 mg/ (Premix) 150 mls @ 100 mls/hr IV Q48H [facility] Meropenem 1 gm/ Sodium (Chloride) 100 mls @ 200 mls/hr IV Q12H [facility] Last Admin: 03/19/20 10:14 Dose: 200 mls/hr Documented by: Vancomycin HCl 1 gm/ Sodium (Chloride) 250 mls @ 167 mls/hr IV Q24H [facility] Last Admin: 03/19/20 11:27 Dose: 167 mls/hr Documented by: Acetaminophen 1,000 mg/ Premix 100 mls @ 400 mls/hr IV Q8H PRN PRN Reason: Fever Stop: 03/20/20 15:46 Imipramine HCl (Imipramine Hcl) 200 mg PO BEDTIME [facility] Last Admin: 03/17/20 20:04 Dose: 200 mg Documented by: Olanzapine (Zyprexa) 5 mg PO BID [facility] Last Admin: 03/18/20 08:56 Dose: 5 mg Documented by: Ondansetron HCl (Zofran) 4 mg IV Q6H PRN PRN Reason: Nausea/Vomiting Ondansetron HCl (Zofran Odt) 4 mg PO Q6H PRN PRN Reason: Nausea able to take PO Pantoprazole Sodium (Protonix Iv) 40 mg IV Q12H [facility] Last Admin: 03/19/20 04:48 Dose: 40 mg Documented by: Discontinued Medications Acetaminophen (Tylenol Extra Strength) 1,000 mg PO ONETIME ONE Stop: 03/15/20 11:16 Last Admin: 03/15/20 11:26 Dose: 1,000 mg Documented by: Acetaminophen (Tylenol) 650 mg PO Q4H PRN PRN Reason: Pain (Mild 1-3)/fever Last Admin: 03/17/20 19:56 Dose: 650 mg Documented by: Bupivacaine HCl (Marcaine 0.5%) Confirm Administered Dose 50 ml .ROUTE .STK-MED ONE Stop: 03/17/20 10:55 Last Admin: 03/17/20 11:30 Dose: 3.5 ml Documented by: Enoxaparin Sodium (Lovenox) 40 mg SUBCUT Q24H [facility] Last Admin: 03/17/20 16:05 Dose: 40 mg Documented by: Fentanyl (Sublimaze) Confirm Administered Dose 100 mcg .ROUTE .STK-MED ONE Stop: 03/17/20 09:55 Heparin Sodium (Porcine) (Heparin Lock Flush 100 Units/Ml) Confirm Administered Dose 500 units .ROUTE .STK-MED ONE Stop: 03/17/20 10:55 Last Admin: 03/17/20 11:40 Dose: 500 units Documented by: Heparin Sodium (Porcine) (Heparin Sodium) Confirm Administered Dose 5,000 units .ROUTE .STK-MED ONE Stop: 03/18/20 10:59 Last Admin: 03/18/20 11:54 Dose: Not Given Documented by: Hydromorphone HCl (Dilaudid) 0.5 mg IVPUSH ONETIME ONE Stop: 03/15/20 10:00 Last Admin: 03/15/20 10:10 Dose: 0.5 mg Documented by: Hydromorphone HCl (Dilaudid) 0.5 mg IVPUSH ONETIME ONE Stop: 03/15/20 11:10 Last Admin: 03/15/20 11:15 Dose: 0.5 mg Documented by: Hydromorphone HCl (Dilaudid) 0.5 mg IVPUSH ONETIME ONE Stop: 03/15/20 13:39 Last Admin: 03/15/20 14:04 Dose: 0.5 mg Documented by: Hydromorphone HCl (Dilaudid) 1 mg IVPUSH Q2H PRN PRN Reason: Pain (severe 7-10) Last Admin: 03/16/20 09:43 Dose: 1 mg Documented by: Sodium Chloride (Normal Saline) 1,000 mls @ 500 mls/hr IV ASDIRECTED [facility] Last Admin: 03/15/20 11:13 Dose: 500 mls/hr Documented by: Magnesium Sulfate (Magnesium Sulfate In Water Premix) 2 gm in 50 mls @ 25 mls/hr IV ONETIME ONE Stop: 03/15/20 12:43 Last Admin: 03/15/20 11:14 Dose: 25 mls/hr Documented by: Sodium Chloride (Normal Saline) 74 mls @ 3 mls/sec IV ASDIRECTED [facility] Stop: 03/15/20 11:31 Lactated Ringer's (Ringers, Lactated) 1,000 mls @ 0 mls/hr IV ASDIRECTED [facility] Last Admin: 03/16/20 09:48 Dose: 100 mls/hr Documented by: Magnesium Sulfate (Magnesium Sulfate In Water Premix) 2 gm in 50 mls @ 12.5 mls/hr IV Q6H [facility] Stop: 03/16/20 05:59 Last Admin: 03/16/20 02:41 Dose: 12.5 mls/hr Documented by: Fat Emulsion Intravenous (Intralipid 20%) 100 mls @ 8.3 mls/hr IV Q24H [facility] Last Admin: 03/16/20 16:01 Dose: 8.3 mls/hr Documented by: Multivitamins/Minerals 10 ml/Zinc 1 ml/ Amino Ac/Electrol/Dextrose/Calcium 1,011 mls @ 100 mls/hr IV .BY DURATION [facility] Last Admin: 03/16/20 12:07 Dose: 100 mls/hr Documented by: Amino Ac/Electrol/Dextrose/Calcium (Clinimix E 15) 1,000 mls @ 100 mls/hr IV .BY DURATION [facility] Last Admin: 03/16/20 21:55 Dose: 100 mls/hr Documented by: Meropenem 1 gm/ Sodium (Chloride) 100 mls @ 200 mls/hr IV Q8H [facility] Last Admin: 03/18/20 09:56 Dose: 200 mls/hr Documented by: Levofloxacin/Dextrose 750 mg/ (Premix) 150 mls @ 100 mls/hr IV Q24H [facility] Last Admin: 03/17/20 19:06 Dose: 100 mls/hr Documented by: Sodium Chloride (Normal Saline) 100 mls @ 3 mls/sec IV ASDIRECTED [facility] Last Admin: 03/16/20 19:31 Dose: 3 mls/sec Documented by: Vancomycin HCl 2 gm/ Sodium (Chloride) 500 mls @ 250 mls/hr IV ONETIME ONE Stop: 03/16/20 21:59 Last Admin: 03/16/20 22:41 Dose: 250 mls/hr Documented by: Vancomycin HCl 1 gm/ Sodium (Chloride) 250 mls @ 166.667 mls/hr IV Q12H [facility] Vancomycin HCl 1 gm/ Sodium (Chloride) 250 mls @ 165 mls/hr IV Q12H [facility] Last Admin: 03/18/20 10:47 Dose: 165 mls/hr Documented by: Sodium Chloride (Normal Saline) 1,000 mls @ 100 mls/hr IV ASDIRECTED [facility] Last Admin: 03/18/20 00:39 Dose: 100 mls/hr Documented by: Sodium Chloride (Normal Saline) 500 mls @ 500 mls/hr IV .BOLUS ONE Stop: 03/17/20 11:41 Last Admin: 03/17/20 10:56 Dose: 500 mls/hr Documented by: Lidocaine HCl (Xylocaine-Mpf 1%) Confirm Administered Dose 2 mls @ as directed .ROUTE .STK-MED ONE Stop: 03/17/20 11:04 Fat Emulsion Intravenous (Intralipid 20%) 100 mls @ 8.3 mls/hr IV Q24H [facility] Last Admin: 03/17/20 16:07 Dose: 8.3 mls/hr Documented by: Sodium Chloride (Normal Saline) 1,000 mls @ 500 mls/hr IV ASDIRECTED [facility] Stop: 03/17/20 18:46 Propofol (Diprivan 100 Ml) Confirm Administered Dose 100 mls @ as directed .ROUTE .STK-MED ONE Stop: 03/18/20 10:45 Last Admin: 03/18/20 11:54 Dose: Not Given Documented by: Acetaminophen 1,000 mg/ Premix 100 mls @ 400 mls/hr IV Q8H PRN PRN Reason: Fever Stop: 03/19/20 15:34 Last Admin: 03/19/20 07:48 Dose: 400 mls/hr Documented by: Ibuprofen (Motrin) 400 mg PO ONETIME ONE Stop: 03/17/20 13:01 Last Admin: 03/17/20 12:59 Dose: 400 mg Documented by: Iopamidol (Isovue-300 (61%)) 112 ml IV ONETIME ONE Stop: 03/15/20 11:17 Last Admin: 03/15/20 19:33 Dose: Not Given Documented by: Iopamidol (Isovue-370 (76%)) 100 ml IV . DIRECTED [facility] Last Admin: 03/16/20 19:31 Dose: 100 ml Documented by: Lactobacillus Rhamnosus (Culturelle) 1 cap PO BID [facility] Last Admin: 03/18/20 08:56 Dose: 1 cap Documented by: Lidocaine/Epinephrine (Xylocaine 1% With Epinephrine 1:100,000) Confirm Administered Dose 50 ml .ROUTE .STK-MED ONE Stop: 03/17/20 10:55 Last Admin: 03/17/20 11:30 Dose: 3.5 ml Documented by: Lorazepam (Ativan) 1 mg IVPUSH ONETIME ONE Stop: 03/15/20 11:31 Last Admin: 03/15/20 11:40 Dose: 1 mg Documented by: Lorazepam (Ativan) 0.5 mg IVPUSH Q4H PRN PRN Reason: Nausea/Vomiting Lorazepam (Ativan) 0.5 mg IVPUSH ONETIME ONE Stop: 03/18/20 06:38 Last Admin: 03/18/20 07:04 Dose: 0.5 mg Documented by: Midazolam HCl (Versed 1 Mg/Ml) Confirm Administered Dose 2 mg .ROUTE .STK-MED ONE Stop: 03/17/20 09:56 Non-Formulary Medication (Total Parenteral Nutrition, Central) 1,000 ml .XX .Continue Order [facility] Stop: 03/17/20 08:01 Oxycodone HCl (Oxycodone) 5 mg PO Q4H PRN PRN Reason: Pain Last Admin: 03/17/20 13:29 Dose: 5 mg Documented by: Propofol (Diprivan 20 Ml) Confirm Administered Dose 200 mg .ROUTE .STK-MED ONE Stop: 03/17/20 09:55 Propofol (Diprivan 20 Ml) Confirm Administered Dose 200 mg .ROUTE .STK-MED ONE Stop: 03/18/20 11:22 Sodium Chloride (Saline Flush) 10 ml FLUSH ASDIRECTED PRN PRN Reason: Keep Vein Open Last Admin: 03/15/20 10:11 Dose: 10 ml Documented by: Sodium Chloride (Saline Flush) 10 ml FLUSH ONETIME ONE Stop: 03/15/20 11:17 Last Admin: 03/16/20 19:31 Dose: 10 ml Documented by: Sodium Chloride (Normal Saline) 10 ml FLUSH ONETIME ONE Stop: 03/16/20 17:53 Last Admin: 03/16/20 20:53 Dose: Not Given Documented by: Succinylcholine Chloride (Quelicin) Confirm Administered Dose 200 mg .ROUTE .STK-MED ONE Stop: 03/18/20 11:22 Tizanidine HCl (Zanaflex) 4 mg PO Q6H PRN PRN Reason: muscle cramps Last Admin: 03/18/20 04:05 Dose: 4 mg Documented by: Vancomycin HCl (Vancomycin) 1 gm IV .PHARMACY TO DOSE [facility] Stop: 03/17/20 18:01 - Exam Quality Assessment: Supplemental Oxygen (Ventilator), Central Line/PICC, Urine Catheter, DVT Prophylaxis General: Sedated, Lethargic HEENT: Pupils Equal Lungs: Decreased Breath Sounds, Rales, Rhonchi. No: Crackles, Wheezing Cardiovascular: Regular Rate, Regular Rhythm, No Murmurs GI/Abdominal Exam: Soft, Non-Tender, No Organomegaly, No Distention Extremities: Non-Tender, No Pedal Edema Skin: Warm, Dry, Intact Sepsis Event Note - Evaluation Sepsis Screening Result: Severe Sepsis Risk - Focused Exam Vital Signs: Vital Signs Temp Resp BP BP Pulse Ox 03/19/20 12:00 97.6 F 34 H 136/68 97 03/19/20 11:00 28 H 132/67 98 03/19/20 10:00 98.1 F 30 H 119/56 L 96 03/19/20 09:00 100 F 32 H 111/54 L 98 03/19/20 08:00 28 H 131/67 97 03/19/20 07:50 99.9 F 03/19/20 07:00 98.2 F 33 H 138/67 99 03/19/20 06:00 98.3 F 32 H 131/57 L 127/63 98 03/19/20 05:00 98.9 F 23 H 124/57 L 116/80 97 03/19/20 04:00 99.0 F 31 H 126/56 L 128/64 97 03/19/20 03:00 97.2 F 31 H 111/52 L 114/58 L 97 03/19/20 02:00 97.5 F 30 H 105/49 L 118/55 L 96 03/19/20 01:00 98.4 F 23 H 98/48 L 107/49 L 97 - Problem List Review Problem List Initiated/Reviewed/Updated: Yes - My Orders Last 24 Hours: My Active Orders 03/18/20 11:45 RASS Sedation Scale [RC] ASDIRECTED propofoL [Diprivan 100 ML] 100 ml IV TITRATE Desired Level of Sedation (RASS) [AST] Click to Edit 03/18/20 11:55 Antiembolic Devices [RC] .Routine Sequential Compression Device [OM.PC] Routine 03/18/20 11:59 Mechanical Ventilation [RT Ventilator, Adult] [RC] Q2H 03/18/20 12:02 Urinary Catheter Assessment [RC] ASDIRECTED 03/18/20 12:13 Nrsg Assess Restraint Init/Mon [RC] Q1H 03/18/20 12:15 Insert Law Catheter [Insert Urinary Catheter] [OM.PC] Q24H Heparin Sodium 5,000 units Sodium Chloride 0.9% [Normal Saline] 500 ml IV ASDIRECTED 03/18/20 22:00 Meropenem [Merrem] 1 gm Sodium Chloride 0.9% [Normal Saline] 100 ml IV Q12H 03/19/20 08:55 Echo Comp wo Cont [US] Stat 03/19/20 11:30 Vancomycin 1 gm Sodium Chloride 0.9% [Normal Saline] 250 ml IV Q24H 03/19/20 12:23 Initiate/Renew Non-Violent Restraints (All Ages) Q24H 03/19/20 12:38 Furosemide [Lasix] 40 mg IVPUSH NOW ONE 03/19/20 15:45 Acetaminophen [Ofirmev] 1,000 mg Premix Bag 1 bag IV Q8H 03/19/20 17:00 BASIC METABOLIC PANEL,BMP [CHEM] Stat BLOOD GAS ARTERIAL [BG] Stat HGB [HEMOGLOBIN] [HEME] Stat 03/19/20 18:30 Levofloxacin/Dextrose 5%-Water [Levaquin in D5W 750 MG/150 ML] 750 mg Premix Bag 1 bag IV Q48H 03/20/20 05:00 Chest 1V Frontal [CR] DAILY BLOOD GAS ARTERIAL [BG] Timed CBC WITH AUTO DIFF [HEME] Timed COMPREHENSIVE METABOLIC PN,CMP [CHEM] Timed MAGNESIUM [CHEM] Timed 03/21/20 05:00 Chest 1V Frontal [CR] DAILY 03/22/20 05:00 Chest 1V Frontal [CR] DAILY 03/23/20 05:00 Chest 1V Frontal [CR] DAILY - Plan Plan:: ASSESSMENT AND PLAN Bilateral pneumonia with sepsis-stable over the last 24 hours, remains on IV norepinephrine. Overall blood pressure is improved and taper of norepinephrine is in progress. Blood culture growing Enterococcus, sensitive to all tested antibiotics including vancomycin. -Continue norepinephrine as needed to maintain mean arterial pressure of greater than 65 -Monitor in ICU -blood cultures pending, including repeat cultures obtained this morning -Continue current antibiotic therapy with vancomycin, meropenem, and levofloxacin, pending culture results -Mind 40 mg IV today Hypoxic respiratory failure-secondary to bilateral pulmonary infiltrates. Respiratory status stable on current ventilator settings. Remains tachypneic with respiratory alkalosis and metabolic compensation. Currently requiring minimal supplemental oxygen at 35% FiO2. -Mechanical ventilation Small bowel obstruction-Long history of Crohn's disease with multiple abdominal surgeries and ileostomy. Transition point appears to be in the abdomen based on CT imaging. Improved from admission, intermittent ostomy output -Symptomatic management of pain and nausea -IV fluids -Flat and upright x-ray in the morning -Surgical follow-up per Dr. Reno -NG tube if she starts vomiting Pancytopenia-chronic, stable. This usually decompensates slightly when she gets sick or stressed. Has dropped below 7 during the night -Transfuse 1 unit of red blood cells -Follow-up hemoglobin this afternoon and in a.m. -Transfuse hemoglobin less than 8, because of current respiratory failure and infection -Hold enoxaparin because of thrombocytopenia Stage III chronic kidney disease-history of left nephrectomy. Renal function stable since yesterday -Closely monitor urine output and renal function Maintenance issues - - DVT prophylaxis -SCDs - GI prophylaxis -PPI - Nutrition -n.p.o. - Law catheter -placed to closely monitor urine output CODE STATUS -full code Admission justification -this patient will be admitted for inpatient services and is medically appropriate meeting medical necessity for inpatient admission as outlined in my documentation. I reasonably expect the patient will require inpatient services that span a period time over 2 midnights. I reasonably expect this patient to be discharged or transferred within 96 hours [facility] Disposition -anticipate discharge home after the hospital stay Primary care physician -Dr. Lisa Gerber
[2020-03-19] MEDS ORDERED: Furosemide 40 MG/4 ML VIAL IVPUSH ONE (13:00)
[2020-03-19] MEDS ORDERED: Acetaminophen 1,000 MG in Premix Bag 1 BAG IV PRN (15:45)
[2020-03-19] MEDS: Levofloxacin/Dextrose 5%-Water 750 MG in Premix Bag 1 BAG IV SCH (18:16)
[2020-03-20] MEDS: propofoL 100 ML IV SCH ×9 (01:15→23:15)
[2020-03-20] MEDS: HYDROmorphone 0.5 MG/0.5 ML Syringe IVPUSH PRN ×8 (01:31→23:34)
[2020-03-20] MEDS: Pantoprazole 40 MG Vial IV SCH ×2 (04:27→16:38)
[2020-03-20] MEDS: 1: AA 5%/Calcium/D15W/Lytes 1,000 ML with MVI, Adult with Vitamin K 10 ML, Zinc/Copper/M IV SCH ×6 (05:16→15:18)
[2020-03-20] MEDS ORDERED: Furosemide 40 MG/4 ML VIAL IVPUSH ONE ×2 (08:20→21:00)
[2020-03-20] MEDS: Magnesium Sulfate/Water 2 GM in Premix Bag 1 BAG IV SCH ×2 (09:07→14:35)
[2020-03-20] MEDS: DULoxetine 30 MG Cap PO SCH (09:13)
--- NOTE | 2020-03-20 09:15 | CR ---
CHEST: Portable 03/20/2020 at 5:32 AM CLINICAL HISTORY:Respiratory failure, infiltrates COMPARISON:03/19/2020 FINDINGS: Endotracheal tube remains in the distal third of the trachea unchanged in position. Right subclavian central venous catheter remains in place. There are diffuse bilateral pulmonary infiltrates similar if not slightly improved when compared to prior study. Some of this difference may be technical. Impression: Endotracheal tube in good position Persistent bilateral pulmonary infiltrates. There may be minimal improvement since prior study.
[2020-03-20] MEDS: Meropenem 1 GM in Sodium Chloride 0.9% 100 ML IV SCH ×2 (09:59→22:19)
--- NOTE | 2020-03-20 10:12 | PCM.PN ---
- General Info Date of Service: 03/20/20 Subjective Update: Ms. Foley remained stable and actually shown further improvement over the last 24 hours. In stable and she is now off of IV norepinephrine. Oxygenating well, respiratory rate remains elevated around 30. Modest improvement in infiltrates on chest x-ray this morning. She is unable to provide meaningful information concerning symptoms or review of systems because of current sedation and intubation. - Patient Data Vitals - Most Recent: Last Vital Signs Temp 96.1 F L 03/20/20 08:00 Pulse 94 03/20/20 09:00 Resp 33 H 03/20/20 09:00 BP 134/58 L 03/20/20 09:00 Pulse Ox 100 03/20/20 09:00 Weight - Most Recent: 167 lb 8.821 oz I&O - Last 24 Hours: Intake & Output 03/19/20 03/20/20 03/20/20 22:59 06:59 14:59 Intake Total 2321 1774 0 Output Total 1525 750 425 Balance 796 1024 -425 Lab Results Last 24 Hours: Laboratory Results - last 24 hr 03/17/20 03/19/20 03/19/20 Range/Units 04:00 17:01 17:01 WBC (4.5-11.0) K/uL RBC (3.30-5.50) M/uL Hgb 7.4 L (12.0-15.0) g/dL Hct (36.0-48.0) % MCV (80-98) fL MCH (27-31) pg MCHC (32-36) % Plt Count (150-400) K/uL Add Manual Diff Neutrophils % (Manual) (36-66) % Band Neutrophils % (5-11) % Lymphocytes % (Manual) (24-44) % Monocytes % (Manual) (2-6) % Myelocytes % % Polychromasia Hypochromasia Anisocytosis Microcytosis Macrocytosis Puncture Site A-line ABG pH 7.425 (7.350-7.450) ABG pCO2 28.8 L (35.0-42.0) mmHg ABG pO2 135.0 H (75.0-100.0) mmHg ABG HCO3 18.6 L (22.0-26.0) mmol/L ABG Total CO2 17.8 L (21.0-25.0) mmol/L ABG O2 Saturation 99.1 H (95.0-98.0) % ABG O2 Content 10.2 L (15.0-23.0) %vol ABG Base Excess -4.7 mm/L ABG Hemoglobin 7.4 L (12.0-16.0) g/dL ABG Oxyhemoglobin 95.2 % ABG Carboxyhemoglobin 2.8 H (0.0-1.6) % ABG Methemoglobin 1.1 % César Test A-line O2 Delivery Device Oxygen Flow Rate L Sodium (140-148) mmol/L Potassium (3.6-5.2) mmol/L Chloride (100-108) mmol/L Carbon Dioxide (21-32) mmol/L Anion Gap (5.0-14.0) mmol/L BUN (7-18) mg/dL Creatinine (0.6-1.0) mg/dL Est Cr Clr Drug Dosing mL/min Estimated GFR (MDRD) (>60) Glucose (74-106) mg/dL Calcium (8.5-10.1) mg/dL Magnesium (1.8-2.4) mg/dL Total Bilirubin (0.2-1.0) mg/dL AST (15-37) U/L ALT (12-78) U/L Alkaline Phosphatase (46-116) U/L Total Protein (6.4-8.2) g/dL Albumin (3.4-5.0) g/dL Globulin (2.3-3.5) g/dL Albumin/Globulin Ratio (1.2-2.2) Blood Type A POSITIVE Gel Antibody Screen Positive A* Crossmatch See Detail 03/19/20 03/20/20 03/20/20 Range/Units 17:01 05:00 05:00 WBC 1.8 L (4.5-11.0) K/uL RBC 2.20 L (3.30-5.50) M/uL Hgb 6.5 L* (12.0-15.0) g/dL Hct 21.5 L (36.0-48.0) % MCV 98 (80-98) fL MCH 30 (27-31) pg MCHC 30 L (32-36) % Plt Count 42 L (150-400) K/uL Add Manual Diff Yes Neutrophils % (Manual) 56 (36-66) % Band Neutrophils % 22 H (5-11) % Lymphocytes % (Manual) 16 L (24-44) % Monocytes % (Manual) 6 (2-6) % Myelocytes % % Polychromasia Marked H Hypochromasia Marked H Anisocytosis Many H Microcytosis Many H Macrocytosis Rare Puncture Site Line ABG pH 7.409 (7.350-7.450) ABG pCO2 29.8 L (35.0-42.0) mmHg ABG pO2 111.0 H (75.0-100.0) mmHg ABG HCO3 18.4 L (22.0-26.0) mmol/L ABG Total CO2 17.8 L (21.0-25.0) mmol/L ABG O2 Saturation 98.7 H (95.0-98.0) % ABG O2 Content 9.2 L (15.0-23.0) %vol ABG Base Excess -5.2 mm/L ABG Hemoglobin 6.7 L (12.0-16.0) g/dL ABG Oxyhemoglobin 94.9 % ABG Carboxyhemoglobin 2.5 H (0.0-1.6) % ABG Methemoglobin 1.3 % C[employer]ar Test O2 Delivery Device Nasal cannula Oxygen Flow Rate L Sodium 137 L (140-148) mmol/L Potassium 3.9 (3.6-5.2) mmol/L Chloride 105 (100-108) mmol/L Carbon Dioxide 19 L (21-32) mmol/L Anion Gap 16.9 H (5.0-14.0) mmol/L BUN 28 H (7-18) mg/dL Creatinine 1.6 H (0.6-1.0) mg/dL Est Cr Clr Drug Dosing 36.26 mL/min Estimated GFR (MDRD) 33 L (>60) Glucose 152 H (74-106) mg/dL Calcium 7.6 L (8.5-10.1) mg/dL Magnesium (1.8-2.4) mg/dL Total Bilirubin (0.2-1.0) mg/dL AST (15-37) U/L ALT (12-78) U/L Alkaline Phosphatase (46-116) U/L Total Protein (6.4-8.2) g/dL Albumin (3.4-5.0) g/dL Globulin (2.3-3.5) g/dL Albumin/Globulin Ratio (1.2-2.2) Blood Type Gel Antibody Screen Crossmatch 03/20/20 03/20/20 Range/Units 05:00 05:00 WBC (4.5-11.0) K/uL RBC (3.30-5.50) M/uL Hgb (12.0-15.0) g/dL Hct (36.0-48.0) % MCV (80-98) fL MCH (27-31) pg MCHC (32-36) % Plt Count (150-400) K/uL Add Manual Diff Neutrophils % (Manual) (36-66) % Band Neutrophils % (5-11) % Lymphocytes % (Manual) (24-44) % Monocytes % (Manual) (2-6) % Myelocytes % % Polychromasia Hypochromasia Anisocytosis Microcytosis Macrocytosis Puncture Site ABG pH (7.350-7.450) ABG pCO2 (35.0-42.0) mmHg ABG pO2 (75.0-100.0) mmHg ABG HCO3 (22.0-26.0) mmol/L ABG Total CO2 (21.0-25.0) mmol/L ABG O2 Saturation (95.0-98.0) % ABG O2 Content (15.0-23.0) %vol ABG Base Excess mm/L ABG Hemoglobin (12.0-16.0) g/dL ABG Oxyhemoglobin % ABG Carboxyhemoglobin (0.0-1.6) % ABG Methemoglobin % César Test O2 Delivery Device Oxygen Flow Rate L Sodium 138 L (140-148) mmol/L Potassium 4.0 (3.6-5.2) mmol/L Chloride 107 (100-108) mmol/L Carbon Dioxide 18 L (21-32) mmol/L Anion Gap 17.0 H (5.0-14.0) mmol/L BUN 30 H (7-18) mg/dL Creatinine 1.5 H (0.6-1.0) mg/dL Est Cr Clr Drug Dosing 38.68 mL/min Estimated GFR (MDRD) 35 L (>60) Glucose 130 H (74-106) mg/dL Calcium 7.4 L (8.5-10.1) mg/dL Magnesium 1.6 L (1.8-2.4) mg/dL Total Bilirubin 3.1 H (0.2-1.0) mg/dL AST 88 H (15-37) U/L ALT 27 (12-78) U/L Alkaline Phosphatase 116 (46-116) U/L Total Protein 5.6 L (6.4-8.2) g/dL Albumin 1.4 L (3.4-5.0) g/dL Globulin 4.2 H (2.3-3.5) g/dL Albumin/Globulin Ratio 0.3 L (1.2-2.2) Blood Type A POSITIVE Gel Antibody Screen Positive A* Crossmatch See Detail Eliud Results Last 24 Hours: Microbiology 03/17/20 11:35 Gram Stain - Final Other - James Line Wound Culture - Final Yeast Isolated Anaerobic Culture - Final NO GROWTH AFTER 3 DAYS 03/18/20 06:20 Aerobic Blood Culture - Preliminary Blood - Artery NO GROWTH AFTER 2 DAYS Anaerobic Blood Culture - Preliminary NO GROWTH AFTER 2 DAYS 03/18/20 05:56 Aerobic Blood Culture - Preliminary Blood - Picc Line NO GROWTH AFTER 2 DAYS Anaerobic Blood Culture - Preliminary NO GROWTH AFTER 2 DAYS 03/16/20 16:39 Aerobic Blood Culture - Final Blood - Port-A-Cath Enterococcus Faecalis Anaerobic Blood Culture - Final Gram Positive Cocci 03/17/20 11:34 Gram Stain - Final Other - Abscess Wound Culture - Final NO GROWTH AFTER 3 DAYS Anaerobic Culture - Final NO GROWTH AFTER 3 DAYS 03/16/20 16:30 Aerobic Blood Culture - Preliminary Blood - Artery NO GROWTH AFTER 3 DAYS Anaerobic Blood Culture - Preliminary NO GROWTH AFTER 3 DAYS Med Orders - Current: Current Medications Duloxetine HCl (Cymbalta) 60 mg PO DAILY [facility] Last Admin: 03/20/20 09:13 Dose: Not Given Documented by: Hydromorphone HCl (Dilaudid) 0.5 mg IVPUSH Q3H PRN PRN Reason: Pain Last Admin: 03/20/20 07:34 Dose: 0.5 mg Documented by: Multivitamins/Minerals 10 ml/Zinc 1 ml/ Amino Ac/Electrol/Dextrose/Calcium 1,011 mls @ 100 mls/hr IV .BY DURATION [facility] Last Admin: 03/20/20 05:16 Dose: 100 mls/hr Documented by: Amino Ac/Electrol/Dextrose/Calcium (Clinimix E /15) 1,000 mls @ 100 mls/hr IV .BY DURATION [facility] Last Admin: 03/19/20 18:42 Dose: 100 mls/hr Documented by: Norepinephrine Bitartrate 4 mg (/ Dextrose/Water) 250 mls @ 7.5 mls/hr IV TITRATE [facility]; Protocol Last Titration: 03/19/20 22:00 Dose: 0 mcg/min, 0 mls/hr Documented by: Propofol (Diprivan 100 Ml) 100 mls @ 2.28 mls/hr IV TITRATE [facility]; Protocol Last Admin: 03/20/20 09:03 Dose: 75 mcg/kg/min, 34.2 mls/hr Documented by: Heparin Sodium (Porcine) 5,000 (units/ Sodium Chloride) 501 mls @ 1 mls/hr IV ASDIRECTED [facility] Last Admin: 03/18/20 11:41 Dose: 1 mls/hr Documented by: Levofloxacin/Dextrose 750 mg/ (Premix) 150 mls @ 100 mls/hr IV Q48H [facility] Last Admin: 03/19/20 18:16 Dose: 100 mls/hr Documented by: Meropenem 1 gm/ Sodium (Chloride) 100 mls @ 200 mls/hr IV Q12H [facility] Last Admin: 03/20/20 09:59 Dose: 200 mls/hr Documented by: Vancomycin HCl 1 gm/ Sodium (Chloride) 250 mls @ 167 mls/hr IV Q24H [facility] Last Admin: 03/19/20 11:27 Dose: 167 mls/hr Documented by: Acetaminophen 1,000 mg/ Premix 100 mls @ 400 mls/hr IV Q8H PRN PRN Reason: Fever Stop: 03/20/20 15:46 Magnesium Sulfate 2 gm/ Premix 50 mls @ 25 mls/hr IV Q6H [facility] Stop: 03/20/20 16:59 Last Admin: 03/20/20 09:07 Dose: 25 mls/hr Documented by: Imipramine HCl (Imipramine Hcl) 200 mg PO BEDTIME [facility] Last Admin: 03/17/20 20:04 Dose: 200 mg Documented by: Olanzapine (Zyprexa) 5 mg PO BID [facility] Last Admin: 03/18/20 08:56 Dose: 5 mg Documented by: Ondansetron HCl (Zofran) 4 mg IV Q6H PRN PRN Reason: Nausea/Vomiting Ondansetron HCl (Zofran Odt) 4 mg PO Q6H PRN PRN Reason: Nausea able to take PO Pantoprazole Sodium (Protonix Iv) 40 mg IV Q12H [facility] Last Admin: 03/20/20 04:27 Dose: 40 mg Documented by: Discontinued Medications Acetaminophen (Tylenol Extra Strength) 1,000 mg PO ONETIME ONE Stop: 03/15/20 11:16 Last Admin: 03/15/20 11:26 Dose: 1,000 mg Documented by: Acetaminophen (Tylenol) 650 mg PO Q4H PRN PRN Reason: Pain (Mild 1-3)/fever Last Admin: 03/17/20 19:56 Dose: 650 mg Documented by: Bupivacaine HCl (Marcaine 0.5%) Confirm Administered Dose 50 ml .ROUTE .STK-MED ONE Stop: 03/17/20 10:55 Last Admin: 03/17/20 11:30 Dose: 3.5 ml Documented by: Enoxaparin Sodium (Lovenox) 40 mg SUBCUT Q24H [facility] Last Admin: 03/17/20 16:05 Dose: 40 mg Documented by: Fentanyl (Sublimaze) Confirm Administered Dose 100 mcg .ROUTE .STK-MED ONE Stop: 03/17/20 09:55 Furosemide (Lasix) 40 mg IVPUSH NOW ONE Stop: 03/19/20 13:01 Last Admin: 03/19/20 13:40 Dose: 40 mg Documented by: Furosemide (Lasix) 40 mg IVPUSH NOW ONE Stop: 03/20/20 08:21 Last Admin: 03/20/20 08:36 Dose: 40 mg Documented by: Heparin Sodium (Porcine) (Heparin Lock Flush 100 Units/Ml) Confirm Administered Dose 500 units .ROUTE .STK-MED ONE Stop: 03/17/20 10:55 Last Admin: 03/17/20 11:40 Dose: 500 units Documented by: Heparin Sodium (Porcine) (Heparin Sodium) Confirm Administered Dose 5,000 units .ROUTE .STK-MED ONE Stop: 03/18/20 10:59 Last Admin: 03/18/20 11:54 Dose: Not Given Documented by: Hydromorphone HCl (Dilaudid) 0.5 mg IVPUSH ONETIME ONE Stop: 03/15/20 10:00 Last Admin: 03/15/20 10:10 Dose: 0.5 mg Documented by: Hydromorphone HCl (Dilaudid) 0.5 mg IVPUSH ONETIME ONE Stop: 03/15/20 11:10 Last Admin: 03/15/20 11:15 Dose: 0.5 mg Documented by: Hydromorphone HCl (Dilaudid) 0.5 mg IVPUSH ONETIME ONE Stop: 03/15/20 13:39 Last Admin: 03/15/20 14:04 Dose: 0.5 mg Documented by: Hydromorphone HCl (Dilaudid) 1 mg IVPUSH Q2H PRN PRN Reason: Pain (severe 7-10) Last Admin: 03/16/20 09:43 Dose: 1 mg Documented by: Sodium Chloride (Normal Saline) 1,000 mls @ 500 mls/hr IV ASDIRECTED [facility] Last Admin: 03/15/20 11:13 Dose: 500 mls/hr Documented by: Magnesium Sulfate (Magnesium Sulfate In Water Premix) 2 gm in 50 mls @ 25 mls/hr IV ONETIME ONE Stop: 03/15/20 12:43 Last Admin: 03/15/20 11:14 Dose: 25 mls/hr Documented by: Sodium Chloride (Normal Saline) 74 mls @ 3 mls/sec IV ASDIRECTED [facility] Stop: 03/15/20 11:31 Lactated Ringer's (Ringers, Lactated) 1,000 mls @ 0 mls/hr IV ASDIRECTED [facility] Last Admin: 03/16/20 09:48 Dose: 100 mls/hr Documented by: Magnesium Sulfate (Magnesium Sulfate In Water Premix) 2 gm in 50 mls @ 12.5 mls/hr IV Q6H [facility] Stop: 03/16/20 05:59 Last Admin: 03/16/20 02:41 Dose: 12.5 mls/hr Documented by: Fat Emulsion Intravenous (Intralipid 20%) 100 mls @ 8.3 mls/hr IV Q24H [facility] Last Admin: 03/16/20 16:01 Dose: 8.3 mls/hr Documented by: Multivitamins/Minerals 10 ml/Zinc 1 ml/ Amino Ac/Electrol/Dextrose/Calcium 1,011 mls @ 100 mls/hr IV .BY DURATION [facility] Last Admin: 03/16/20 12:07 Dose: 100 mls/hr Documented by: Amino Ac/Electrol/Dextrose/Calcium (Clinimix E 08/22) 1,000 mls @ 100 mls/hr IV .BY DURATION [facility] Last Admin: 03/16/20 21:55 Dose: 100 mls/hr Documented by: Meropenem 1 gm/ Sodium (Chloride) 100 mls @ 200 mls/hr IV Q8H [facility] Last Admin: 03/18/20 09:56 Dose: 200 mls/hr Documented by: Levofloxacin/Dextrose 750 mg/ (Premix) 150 mls @ 100 mls/hr IV Q24H [facility] Last Admin: 03/17/20 19:06 Dose: 100 mls/hr Documented by: Sodium Chloride (Normal Saline) 100 mls @ 3 mls/sec IV ASDIRECTED [facility] Last Admin: 03/16/20 19:31 Dose: 3 mls/sec Documented by: Vancomycin HCl 2 gm/ Sodium (Chloride) 500 mls @ 250 mls/hr IV ONETIME ONE Stop: 03/16/20 21:59 Last Admin: 03/16/20 22:41 Dose: 250 mls/hr Documented by: Vancomycin HCl 1 gm/ Sodium (Chloride) 250 mls @ 166.667 mls/hr IV Q12H [facility] Vancomycin HCl 1 gm/ Sodium (Chloride) 250 mls @ 165 mls/hr IV Q12H [facility] Last Admin: 03/18/20 10:47 Dose: 165 mls/hr Documented by: Sodium Chloride (Normal Saline) 1,000 mls @ 100 mls/hr IV ASDIRECTED [facility] Last Admin: 03/18/20 00:39 Dose: 100 mls/hr Documented by: Sodium Chloride (Normal Saline) 500 mls @ 500 mls/hr IV .BOLUS ONE Stop: 03/17/20 11:41 Last Admin: 03/17/20 10:56 Dose: 500 mls/hr Documented by: Lidocaine HCl (Xylocaine-Mpf 1%) Confirm Administered Dose 2 mls @ as directed .ROUTE .STK-MED ONE Stop: 03/17/20 11:04 Fat Emulsion Intravenous (Intralipid 20%) 100 mls @ 8.3 mls/hr IV Q24H [facility] Last Admin: 03/17/20 16:07 Dose: 8.3 mls/hr Documented by: Sodium Chloride (Normal Saline) 1,000 mls @ 500 mls/hr IV ASDIRECTED [facility] Stop: 03/17/20 18:46 Propofol (Diprivan 100 Ml) Confirm Administered Dose 100 mls @ as directed .ROUTE .STK-MED ONE Stop: 03/18/20 10:45 Last Admin: 03/18/20 11:54 Dose: Not Given Documented by: Acetaminophen 1,000 mg/ Premix 100 mls @ 400 mls/hr IV Q8H PRN PRN Reason: Fever Stop: 03/19/20 15:34 Last Admin: 03/19/20 07:48 Dose: 400 mls/hr Documented by: Ibuprofen (Motrin) 400 mg PO ONETIME ONE Stop: 03/17/20 13:01 Last Admin: 03/17/20 12:59 Dose: 400 mg Documented by: Iopamidol (Isovue-300 (61%)) 112 ml IV ONETIME ONE Stop: 03/15/20 11:17 Last Admin: 03/15/20 19:33 Dose: Not Given Documented by: Iopamidol (Isovue-370 (76%)) 100 ml IV . DIRECTED [facility] Last Admin: 03/16/20 19:31 Dose: 100 ml Documented by: Lactobacillus Rhamnosus (Culturelle) 1 cap PO BID [facility] Last Admin: 03/18/20 08:56 Dose: 1 cap Documented by: Lidocaine/Epinephrine (Xylocaine 1% With Epinephrine 1:100,000) Confirm Administered Dose 50 ml .ROUTE .STK-MED ONE Stop: 03/17/20 10:55 Last Admin: 03/17/20 11:30 Dose: 3.5 ml Documented by: Lorazepam (Ativan) 1 mg IVPUSH ONETIME ONE Stop: 03/15/20 11:31 Last Admin: 03/15/20 11:40 Dose: 1 mg Documented by: Lorazepam (Ativan) 0.5 mg IVPUSH Q4H PRN PRN Reason: Nausea/Vomiting Lorazepam (Ativan) 0.5 mg IVPUSH ONETIME ONE Stop: 03/18/20 06:38 Last Admin: 03/18/20 07:04 Dose: 0.5 mg Documented by: Midazolam HCl (Versed 1 Mg/Ml) Confirm Administered Dose 2 mg .ROUTE .STK-MED ONE Stop: 03/17/20 09:56 Non-Formulary Medication (Total Parenteral Nutrition, Central) 1,000 ml .XX .Continue Order [facility] Stop: 03/17/20 08:01 Oxycodone HCl (Oxycodone) 5 mg PO Q4H PRN PRN Reason: Pain Last Admin: 03/17/20 13:29 Dose: 5 mg Documented by: Propofol (Diprivan 20 Ml) Confirm Administered Dose 200 mg .ROUTE .STK-MED ONE Stop: 03/17/20 09:55 Propofol (Diprivan 20 Ml) Confirm Administered Dose 200 mg .ROUTE .STK-MED ONE Stop: 03/18/20 11:22 Sodium Chloride (Saline Flush) 10 ml FLUSH ASDIRECTED PRN PRN Reason: Keep Vein Open Last Admin: 03/15/20 10:11 Dose: 10 ml Documented by: Sodium Chloride (Saline Flush) 10 ml FLUSH ONETIME ONE Stop: 03/15/20 11:17 Last Admin: 03/16/20 19:31 Dose: 10 ml Documented by: Sodium Chloride (Normal Saline) 10 ml FLUSH ONETIME ONE Stop: 03/16/20 17:53 Last Admin: 03/16/20 20:53 Dose: Not Given Documented by: Succinylcholine Chloride (Quelicin) Confirm Administered Dose 200 mg .ROUTE .STK-MED ONE Stop: 03/18/20 11:22 Tizanidine HCl (Zanaflex) 4 mg PO Q6H PRN PRN Reason: muscle cramps Last Admin: 03/18/20 04:05 Dose: 4 mg Documented by: Vancomycin HCl (Vancomycin) 1 gm IV .PHARMACY TO DOSE [facility] Stop: 03/17/20 18:01 - Exam Quality Assessment: Supplemental Oxygen (Ventilator), Central Line/PICC, Urine Catheter, DVT Prophylaxis General: Sedated, Lethargic HEENT: Pupils Equal Lungs: Decreased Breath Sounds, Rales, Rhonchi. No: Wheezing Cardiovascular: Regular Rate, Regular Rhythm, No Murmurs GI/Abdominal Exam: Soft, Non-Tender, No Organomegaly, No Distention Extremities: Non-Tender, No Pedal Edema Sepsis Event Note - Evaluation Sepsis Screening Result: Severe Sepsis Risk - Focused Exam Vital Signs: Vital Signs Temp Temp Pulse Resp BP BP Pulse Ox 03/20/20 09:00 94 33 H 134/58 L 100 03/20/20 08:00 96.1 F L 90 32 H 128/61 99 03/20/20 07:32 96.1 F L 90 31 H 125/61 03/20/20 07:14 96.3 F L 91 31 H 113/56 L 03/20/20 07:00 96.3 F L 90 31 H 113/56 L 97 03/20/20 06:40 97.7 F 90 32 H 103/51 L 97 03/20/20 06:24 97.9 F 88 31 H 97/51 L 96 03/20/20 06:09 98.5 F 96 28 H 100/57 L 99 03/20/20 06:00 97.4 F 95 34 H 93/54 L 100 03/20/20 05:54 97.4 F 101 H 32 H 100/54 L 99 03/20/20 05:00 98 29 H 100/54 L 99 03/20/20 04:00 98.4 F 96 14 109/44 L 96 03/20/20 03:00 104 H 31 H 92/46 L 98 03/20/20 02:00 97.3 F 97 22 H 111/56 L 99 03/20/20 01:00 95 28 H 99/51 L 95 03/20/20 00:00 97.8 F 100 16 114/60 99 03/19/20 23:00 97.6 F 98 30 H 99/56 L 96 - Problem List Review Problem List Initiated/Reviewed/Updated: Yes - My Orders Last 24 Hours: My Active Orders 03/19/20 11:30 Vancomycin 1 gm Sodium Chloride 0.9% [Normal Saline] 250 ml IV Q24H 03/19/20 12:23 Initiate/Renew Non-Violent Restraints (All Ages) Q24H 03/19/20 15:45 Acetaminophen [Ofirmev] 1,000 mg Premix Bag 1 bag IV Q8H 03/19/20 18:30 Levofloxacin/Dextrose 5%-Water [Levaquin in D5W 750 MG/150 ML] 750 mg Premix Bag 1 bag IV Q48H 03/20/20 05:00 ANTIBODY IDENTIFICATION [BBK] Routine RED BLOOD CELLS LP [BBK] Routine TYPE AND SCREEN [BBK] Routine 03/20/20 05:28 Transfuse Red Blood Cells [COMM] Urgent 03/20/20 09:00 Magnesium Sulfate/Water [Magnesium Sulfate in Water Premix] 2 gm Premix Bag 1 bag IV Q6H 03/20/20 11:00 VANCOMYCIN TROUGH [CHEM] Routine 03/20/20 17:00 BASIC METABOLIC PANEL,BMP [CHEM] Stat BLOOD GAS ARTERIAL [BG] Stat HGB [HEMOGLOBIN] [HEME] Stat 03/21/20 05:00 Chest 1V Frontal [CR] DAILY BLOOD GAS ARTERIAL [BG] Timed CBC WITH AUTO DIFF [HEME] Timed COMPREHENSIVE METABOLIC PN,CMP [CHEM] Timed MAGNESIUM [CHEM] Timed 03/22/20 05:00 Chest 1V Frontal [CR] DAILY 03/23/20 05:00 Chest 1V Frontal [CR] DAILY - Plan Plan:: ASSESSMENT AND PLAN Bilateral pneumonia with sepsis-stable over the last 24 hours, she is now off of IV norepinephrine with stable blood pressures. Follow-up blood cultures remain negative, initial blood cultures growing Enterococcus, sensitive to vancomycin. -Monitor in ICU -blood cultures pending, including repeat cultures obtained this morning -Continue current antibiotic therapy with vancomycin and meropenem -Discontinue levofloxacin -Furosemide 40 mg IV now Hypoxic respiratory failure-secondary to bilateral pulmonary infiltrates. Respiratory status stable on current ventilator settings. Remains tachypneic with respiratory alkalosis and metabolic compensation. Currently requiring minimal supplemental oxygen at 35% FiO2. -Mechanical ventilation -Trial of IMV with higher rate and pressure support -Spontaneous breathing trial in a.m. Small bowel obstruction-Long history of Crohn's disease with multiple abdominal surgeries and ileostomy. Transition point appears to be in the abdomen based on CT imaging. Improved from admission, intermittent ostomy output -Symptomatic management of pain and nausea -IV fluids -Flat and upright x-ray in the morning -Surgical follow-up per Dr. Reno -NG tube if she starts vomiting Pancytopenia-chronic, stable. This usually decompensates slightly when she gets sick or stressed. Has dropped below 7 during the night again -Transfuse 1 unit of red blood cells -Follow-up hemoglobin this afternoon and in a.m. -Transfuse hemoglobin less than 8, because of current respiratory failure and infection -Hold enoxaparin because of thrombocytopenia Stage III chronic kidney disease-history of left nephrectomy. Renal function stable since yesterday -Closely monitor urine output and renal function Maintenance issues - - DVT prophylaxis -SCDs - GI prophylaxis -PPI - Nutrition -n.p.o. - Law catheter -placed to closely monitor urine output CODE STATUS -full code Admission justification -this patient will be admitted for inpatient services and is medically appropriate meeting medical necessity for inpatient admission as outlined in my documentation. I reasonably expect the patient will require inpatient services that span a period time over 2 midnights. I reasonably expect this patient to be discharged or transferred within 96 hours after admission to the Critical [facility]. Disposition -anticipate discharge home after the hospital stay Primary care physician -Dr. Lisa Gerber
[2020-03-20] MEDS ORDERED: Central Total Parenteral Nutrition Bag IV SCH (12:00)
[2020-03-21] MEDS: 1: AA 5%/Calcium/D15W/Lytes 1,000 ML with MVI, Adult with Vitamin K 10 ML, Zinc/Copper/M IV SCH ×9 (01:06→21:59)
[2020-03-21] MEDS: propofoL 100 ML IV SCH ×8 (02:11→23:01)
[2020-03-21] MEDS: HYDROmorphone 0.5 MG/0.5 ML Syringe IVPUSH PRN ×7 (03:09→22:54)
[2020-03-21] MEDS: Pantoprazole 40 MG Vial IV SCH ×2 (03:13→16:12)
[2020-03-21] MEDS: DULoxetine 30 MG Cap PO SCH (09:08)
[2020-03-21] MEDS: Meropenem 1 GM in Sodium Chloride 0.9% 100 ML IV SCH ×2 (09:39→22:57)
[2020-03-21] MEDS ORDERED: Central Total Parenteral Nutrition Bag IV SCH (10:15)
--- NOTE | 2020-03-21 10:18 | PCM.PN ---
- General Info Date of Service: 03/21/20 Subjective Update: Ms. Foley has remained hemodynamically stable and afebrile over the last 24 hours. Respiratory status has been fairly stable although she has failed a spontaneous breathing trial this morning. She did have a good diuresis yesterday but creatinine is elevated today and bilirubin is further elevated as well. She is unable to provide a meaningful history concerning the recent symptoms or review of systems because of intubation and sedation. - Patient Data Vitals - Most Recent: Last Vital Signs Temp 98.4 F 03/21/20 09:00 Pulse 90 03/21/20 10:00 Resp 28 H 03/21/20 10:00 BP 104/50 L 03/21/20 10:00 Pulse Ox 99 03/21/20 10:00 Weight - Most Recent: 178 lb I&O - Last 24 Hours: Intake & Output 03/20/20 03/21/20 03/21/20 22:59 06:59 14:59 Intake Total 2101 Output Total 1595 1315 Balance 506 -1315 Lab Results Last 24 Hours: Laboratory Results - last 24 hr 03/17/20 03/20/20 03/20/20 Range/Units 04:00 05:00 11:00 WBC (4.5-11.0) K/uL RBC (3.30-5.50) M/uL Hgb (12.0-15.0) g/dL Hct (36.0-48.0) % MCV (80-98) fL MCH (27-31) pg MCHC (32-36) % Plt Count (150-400) K/uL Add Manual Diff Neutrophils % (Manual) (36-66) % Band Neutrophils % (5-11) % Lymphocytes % (Manual) (24-44) % Monocytes % (Manual) (2-6) % Puncture Site ABG pH (7.350-7.450) ABG pCO2 (35.0-42.0) mmHg ABG pO2 (75.0-100.0) mmHg ABG HCO3 (22.0-26.0) mmol/L ABG Total CO2 (21.0-25.0) mmol/L ABG O2 Saturation (95.0-98.0) % ABG O2 Content (15.0-23.0) %vol ABG Base Excess mm/L ABG Hemoglobin (12.0-16.0) g/dL ABG Oxyhemoglobin % ABG Carboxyhemoglobin (0.0-1.6) % ABG Methemoglobin % César Test O2 Delivery Device Oxygen Flow Rate L Sodium (140-148) mmol/L Potassium (3.6-5.2) mmol/L Chloride (100-108) mmol/L Carbon Dioxide (21-32) mmol/L Anion Gap (5.0-14.0) mmol/L BUN (7-18) mg/dL Creatinine (0.6-1.0) mg/dL Est Cr Clr Drug Dosing mL/min Estimated GFR (MDRD) (>60) Glucose (74-106) mg/dL Calcium (8.5-10.1) mg/dL Magnesium (1.8-2.4) mg/dL Total Bilirubin (0.2-1.0) mg/dL Direct Bilirubin (0.0-0.2) mg/dL AST (15-37) U/L ALT (12-78) U/L Alkaline Phosphatase (46-116) U/L Total Protein (6.4-8.2) g/dL Albumin (3.4-5.0) g/dL Globulin (2.3-3.5) g/dL Albumin/Globulin Ratio (1.2-2.2) Vancomycin Trough 12.1 (10.0-20.0) ug/mL Blood Type A POSITIVE Gel Antibody Screen Positive A* Antibody Identification Anti-K Anti-K Crossmatch See Detail 03/20/20 03/20/20 03/20/20 Range/Units 17:04 17:04 17:04 WBC (4.5-11.0) K/uL RBC (3.30-5.50) M/uL Hgb 7.4 L (12.0-15.0) g/dL Hct (36.0-48.0) % MCV (80-98) fL MCH (27-31) pg MCHC (32-36) % Plt Count (150-400) K/uL Add Manual Diff Neutrophils % (Manual) (36-66) % Band Neutrophils % (5-11) % Lymphocytes % (Manual) (24-44) % Monocytes % (Manual) (2-6) % Puncture Site A-line ABG pH 7.363 (7.350-7.450) ABG pCO2 37.6 (35.0-42.0) mmHg ABG pO2 136.0 H (75.0-100.0) mmHg ABG HCO3 20.9 L (22.0-26.0) mmol/L ABG Total CO2 20.2 L (21.0-25.0) mmol/L ABG O2 Saturation 99.1 H (95.0-98.0) % ABG O2 Content 10.2 L (15.0-23.0) %vol ABG Base Excess -3.6 mm/L ABG Hemoglobin 7.4 L (12.0-16.0) g/dL ABG Oxyhemoglobin 95.3 % ABG Carboxyhemoglobin 2.6 H (0.0-1.6) % ABG Methemoglobin 1.2 % César Test Not performed O2 Delivery Device Nasal cannula Oxygen Flow Rate L Sodium 138 L (140-148) mmol/L Potassium 3.9 (3.6-5.2) mmol/L Chloride 105 (100-108) mmol/L Carbon Dioxide 22 (21-32) mmol/L Anion Gap 14.9 H (5.0-14.0) mmol/L BUN 35 H (7-18) mg/dL Creatinine 1.5 H (0.6-1.0) mg/dL Est Cr Clr Drug Dosing 38.68 mL/min Estimated GFR (MDRD) 35 L (>60) Glucose 121 H (74-106) mg/dL Calcium 7.9 L (8.5-10.1) mg/dL Magnesium (1.8-2.4) mg/dL Total Bilirubin (0.2-1.0) mg/dL Direct Bilirubin (0.0-0.2) mg/dL AST (15-37) U/L ALT (12-78) U/L Alkaline Phosphatase (46-116) U/L Total Protein (6.4-8.2) g/dL Albumin (3.4-5.0) g/dL Globulin (2.3-3.5) g/dL Albumin/Globulin Ratio (1.2-2.2) Vancomycin Trough (10.0-20.0) ug/mL Blood Type Gel Antibody Screen Antibody Identification Crossmatch 03/21/20 03/21/20 03/21/20 Range/Units 04:36 04:36 04:36 WBC 2.4 L (4.5-11.0) K/uL RBC 2.38 L (3.30-5.50) M/uL Hgb 7.1 L (12.0-15.0) g/dL Hct 23.0 L (36.0-48.0) % MCV 97 (80-98) fL MCH 30 (27-31) pg MCHC 31 L (32-36) % Plt Count 42 L (150-400) K/uL Add Manual Diff Yes Neutrophils % (Manual) 62 (36-66) % Band Neutrophils % 13 H (5-11) % Lymphocytes % (Manual) 19 L (24-44) % Monocytes % (Manual) 6 (2-6) % Puncture Site A-line ABG pH 7.384 (7.350-7.450) ABG pCO2 32.6 L (35.0-42.0) mmHg ABG pO2 129.0 H (75.0-100.0) mmHg ABG HCO3 19.0 L (22.0-26.0) mmol/L ABG Total CO2 18.4 L (21.0-25.0) mmol/L ABG O2 Saturation 98.9 H (95.0-98.0) % ABG O2 Content 9.7 L (15.0-23.0) %vol ABG Base Excess -5.0 mm/L ABG Hemoglobin 7.1 L (12.0-16.0) g/dL ABG Oxyhemoglobin 94.2 % ABG Carboxyhemoglobin 3.2 H (0.0-1.6) % ABG Methemoglobin 1.6 % César Test A-line O2 Delivery Device Oxygen Flow Rate L Sodium 138 L (140-148) mmol/L Potassium 4.1 (3.6-5.2) mmol/L Chloride 105 (100-108) mmol/L Carbon Dioxide 21 (21-32) mmol/L Anion Gap 16.1 H (5.0-14.0) mmol/L BUN 44 H (7-18) mg/dL Creatinine 1.9 H (0.6-1.0) mg/dL Est Cr Clr Drug Dosing 30.54 mL/min Estimated GFR (MDRD) 27 L (>60) Glucose 131 H (74-106) mg/dL Calcium 7.8 L (8.5-10.1) mg/dL Magnesium 2.0 (1.8-2.4) mg/dL Total Bilirubin 7.5 H D (0.2-1.0) mg/dL Direct Bilirubin (0.0-0.2) mg/dL AST 120 H (15-37) U/L ALT 26 (12-78) U/L Alkaline Phosphatase 147 H (46-116) U/L Total Protein 5.9 L (6.4-8.2) g/dL Albumin 1.4 L (3.4-5.0) g/dL Globulin 4.5 H (2.3-3.5) g/dL Albumin/Globulin Ratio 0.3 L (1.2-2.2) Vancomycin Trough (10.0-20.0) ug/mL Blood Type Gel Antibody Screen Antibody Identification Crossmatch 03/21/20 Range/Units 04:36 WBC (4.5-11.0) K/uL RBC (3.30-5.50) M/uL Hgb (12.0-15.0) g/dL Hct (36.0-48.0) % MCV (80-98) fL MCH (27-31) pg MCHC (32-36) % Plt Count (150-400) K/uL Add Manual Diff Neutrophils % (Manual) (36-66) % Band Neutrophils % (5-11) % Lymphocytes % (Manual) (24-44) % Monocytes % (Manual) (2-6) % Puncture Site ABG pH (7.350-7.450) ABG pCO2 (35.0-42.0) mmHg ABG pO2 (75.0-100.0) mmHg ABG HCO3 (22.0-26.0) mmol/L ABG Total CO2 (21.0-25.0) mmol/L ABG O2 Saturation (95.0-98.0) % ABG O2 Content (15.0-23.0) %vol ABG Base Excess mm/L ABG Hemoglobin (12.0-16.0) g/dL ABG Oxyhemoglobin % ABG Carboxyhemoglobin (0.0-1.6) % ABG Methemoglobin % César Test O2 Delivery Device Oxygen Flow Rate L Sodium (140-148) mmol/L Potassium (3.6-5.2) mmol/L Chloride (100-108) mmol/L Carbon Dioxide (21-32) mmol/L Anion Gap (5.0-14.0) mmol/L BUN (7-18) mg/dL Creatinine (0.6-1.0) mg/dL Est Cr Clr Drug Dosing mL/min Estimated GFR (MDRD) (>60) Glucose (74-106) mg/dL Calcium (8.5-10.1) mg/dL Magnesium (1.8-2.4) mg/dL Total Bilirubin (0.2-1.0) mg/dL Direct Bilirubin 6.47 H (0.0-0.2) mg/dL AST (15-37) U/L ALT (12-78) U/L Alkaline Phosphatase (46-116) U/L Total Protein (6.4-8.2) g/dL Albumin (3.4-5.0) g/dL Globulin (2.3-3.5) g/dL Albumin/Globulin Ratio (1.2-2.2) Vancomycin Trough (10.0-20.0) ug/mL Blood Type Gel Antibody Screen Antibody Identification Crossmatch Eliud Results Last 24 Hours: Microbiology 03/18/20 06:20 Aerobic Blood Culture - Preliminary Blood - Artery NO GROWTH AFTER 3 DAYS Anaerobic Blood Culture - Preliminary NO GROWTH AFTER 3 DAYS 03/18/20 05:56 Aerobic Blood Culture - Preliminary Blood - Picc Line NO GROWTH AFTER 3 DAYS Anaerobic Blood Culture - Preliminary NO GROWTH AFTER 3 DAYS 03/16/20 16:30 Aerobic Blood Culture - Preliminary Blood - Artery NO GROWTH AFTER 4 DAYS Anaerobic Blood Culture - Preliminary NO GROWTH AFTER 4 DAYS 03/17/20 11:35 Gram Stain - Final Other - James Line Wound Culture - Final Yeast Isolated Anaerobic Culture - Final NO GROWTH AFTER 3 DAYS 03/16/20 16:39 Aerobic Blood Culture - Final Blood - Port-A-Cath Enterococcus Faecalis Anaerobic Blood Culture - Final Gram Positive Cocci 03/17/20 11:34 Gram Stain - Final Other - Abscess Wound Culture - Final NO GROWTH AFTER 3 DAYS Anaerobic Culture - Final NO GROWTH AFTER 3 DAYS Med Orders - Current: Current Medications Duloxetine HCl (Cymbalta) 60 mg PO DAILY [facility] Last Admin: 03/21/20 09:08 Dose: Not Given Documented by: Hydromorphone HCl (Dilaudid) 0.5 mg IVPUSH Q3H PRN PRN Reason: Pain Last Admin: 03/21/20 09:16 Dose: 0.5 mg Documented by: Multivitamins/Minerals 10 ml/Zinc 1 ml/ Amino Ac/Electrol/Dextrose/Calcium 1,011 mls @ 100 mls/hr IV .BY DURATION [facility] Last Admin: 03/20/20 05:16 Dose: 100 mls/hr Documented by: Amino Ac/Electrol/Dextrose/Calcium (Clinimix E 08/22) 1,000 mls @ 100 mls/hr IV .BY DURATION [facility] Last Admin: 03/21/20 01:06 Dose: 100 mls/hr Documented by: Norepinephrine Bitartrate 4 mg (/ Dextrose/Water) 250 mls @ 7.5 mls/hr IV TITRATE [facility]; Protocol Last Titration: 03/19/20 22:00 Dose: 0 mcg/min, 0 mls/hr Documented by: Propofol (Diprivan 100 Ml) 100 mls @ 2.28 mls/hr IV TITRATE [facility]; Protocol Last Admin: 03/21/20 09:08 Dose: 70 mcg/kg/min, 31.92 mls/hr Documented by: Heparin Sodium (Porcine) 5,000 (units/ Sodium Chloride) 501 mls @ 1 mls/hr IV ASDIRECTED [facility] Last Admin: 03/18/20 11:41 Dose: 1 mls/hr Documented by: Levofloxacin/Dextrose 750 mg/ (Premix) 150 mls @ 100 mls/hr IV Q48H [facility] Last Admin: 03/19/20 18:16 Dose: 100 mls/hr Documented by: Meropenem 1 gm/ Sodium (Chloride) 100 mls @ 200 mls/hr IV Q12H [facility] Last Admin: 03/21/20 09:39 Dose: 200 mls/hr Documented by: Vancomycin HCl 1 gm/ Sodium (Chloride) 250 mls @ 167 mls/hr IV Q18H [facility] Last Admin: 03/21/20 05:46 Dose: 167 mls/hr Documented by: Imipramine HCl (Imipramine Hcl) 200 mg PO BEDTIME [facility] Last Admin: 03/17/20 20:04 Dose: 200 mg Documented by: Olanzapine (Zyprexa) 5 mg PO BID [facility] Last Admin: 03/18/20 08:56 Dose: 5 mg Documented by: Ondansetron HCl (Zofran) 4 mg IV Q6H PRN PRN Reason: Nausea/Vomiting Ondansetron HCl (Zofran Odt) 4 mg PO Q6H PRN PRN Reason: Nausea able to take PO Pantoprazole Sodium (Protonix Iv) 40 mg IV Q12H [facility] Last Admin: 03/21/20 03:13 Dose: 40 mg Documented by: Discontinued Medications Acetaminophen (Tylenol Extra Strength) 1,000 mg PO ONETIME ONE Stop: 03/15/20 11:16 Last Admin: 03/15/20 11:26 Dose: 1,000 mg Documented by: Acetaminophen (Tylenol) 650 mg PO Q4H PRN PRN Reason: Pain (Mild 1-3)/fever Last Admin: 03/17/20 19:56 Dose: 650 mg Documented by: Bupivacaine HCl (Marcaine 0.5%) Confirm Administered Dose 50 ml .ROUTE .STK-MED ONE Stop: 03/17/20 10:55 Last Admin: 03/17/20 11:30 Dose: 3.5 ml Documented by: Enoxaparin Sodium (Lovenox) 40 mg SUBCUT Q24H [facility] Last Admin: 03/17/20 16:05 Dose: 40 mg Documented by: Fentanyl (Sublimaze) Confirm Administered Dose 100 mcg .ROUTE .STK-MED ONE Stop: 03/17/20 09:55 Furosemide (Lasix) 40 mg IVPUSH NOW ONE Stop: 03/19/20 13:01 Last Admin: 03/19/20 13:40 Dose: 40 mg Documented by: Furosemide (Lasix) 40 mg IVPUSH NOW ONE Stop: 03/20/20 08:21 Last Admin: 03/20/20 08:36 Dose: 40 mg Documented by: Furosemide (Lasix) 40 mg IVPUSH NOW ONE Stop: 03/20/20 21:01 Last Admin: 03/20/20 22:16 Dose: 40 mg Documented by: Heparin Sodium (Porcine) (Heparin Lock Flush 100 Units/Ml) Confirm Administered Dose 500 units .ROUTE .STK-MED ONE Stop: 03/17/20 10:55 Last Admin: 03/17/20 11:40 Dose: 500 units Documented by: Heparin Sodium (Porcine) (Heparin Sodium) Confirm Administered Dose 5,000 units .ROUTE .STK-MED ONE Stop: 03/18/20 10:59 Last Admin: 03/18/20 11:54 Dose: Not Given Documented by: Hydromorphone HCl (Dilaudid) 0.5 mg IVPUSH ONETIME ONE Stop: 03/15/20 10:00 Last Admin: 03/15/20 10:10 Dose: 0.5 mg Documented by: Hydromorphone HCl (Dilaudid) 0.5 mg IVPUSH ONETIME ONE Stop: 03/15/20 11:10 Last Admin: 03/15/20 11:15 Dose: 0.5 mg Documented by: Hydromorphone HCl (Dilaudid) 0.5 mg IVPUSH ONETIME ONE Stop: 03/15/20 13:39 Last Admin: 03/15/20 14:04 Dose: 0.5 mg Documented by: Hydromorphone HCl (Dilaudid) 1 mg IVPUSH Q2H PRN PRN Reason: Pain (severe 7-10) Last Admin: 03/16/20 09:43 Dose: 1 mg Documented by: Sodium Chloride (Normal Saline) 1,000 mls @ 500 mls/hr IV ASDIRECTED [facility] Last Admin: 03/15/20 11:13 Dose: 500 mls/hr Documented by: Magnesium Sulfate (Magnesium Sulfate In Water Premix) 2 gm in 50 mls @ 25 mls/hr IV ONETIME ONE Stop: 03/15/20 12:43 Last Admin: 03/15/20 11:14 Dose: 25 mls/hr Documented by: Sodium Chloride (Normal Saline) 74 mls @ 3 mls/sec IV ASDIRECTED [facility] Stop: 03/15/20 11:31 Lactated Ringer's (Ringers, Lactated) 1,000 mls @ 0 mls/hr IV ASDIRECTED [facility] Last Admin: 03/16/20 09:48 Dose: 100 mls/hr Documented by: Magnesium Sulfate (Magnesium Sulfate In Water Premix) 2 gm in 50 mls @ 12.5 mls/hr IV Q6H [facility] Stop: 03/16/20 05:59 Last Admin: 03/16/20 02:41 Dose: 12.5 mls/hr Documented by: Fat Emulsion Intravenous (Intralipid 20%) 100 mls @ 8.3 mls/hr IV Q24H [facility] Last Admin: 03/16/20 16:01 Dose: 8.3 mls/hr Documented by: Multivitamins/Minerals 10 ml/Zinc 1 ml/ Amino Ac/Electrol/Dextrose/Calcium 1,011 mls @ 100 mls/hr IV .BY DURATION [facility] Last Admin: 03/16/20 12:07 Dose: 100 mls/hr Documented by: Amino Ac/Electrol/Dextrose/Calcium (Clinimix E /15) 1,000 mls @ 100 mls/hr IV .BY DURATION [facility] Last Admin: 03/16/20 21:55 Dose: 100 mls/hr Documented by: Meropenem 1 gm/ Sodium (Chloride) 100 mls @ 200 mls/hr IV Q8H [facility] Last Admin: 03/18/20 09:56 Dose: 200 mls/hr Documented by: Levofloxacin/Dextrose 750 mg/ (Premix) 150 mls @ 100 mls/hr IV Q24H [facility] Last Admin: 03/17/20 19:06 Dose: 100 mls/hr Documented by: Sodium Chloride (Normal Saline) 100 mls @ 3 mls/sec IV ASDIRECTED [facility] Last Admin: 03/16/20 19:31 Dose: 3 mls/sec Documented by: Vancomycin HCl 2 gm/ Sodium (Chloride) 500 mls @ 250 mls/hr IV ONETIME ONE Stop: 03/16/20 21:59 Last Admin: 03/16/20 22:41 Dose: 250 mls/hr Documented by: Vancomycin HCl 1 gm/ Sodium (Chloride) 250 mls @ 166.667 mls/hr IV Q12H [facility] Vancomycin HCl 1 gm/ Sodium (Chloride) 250 mls @ 165 mls/hr IV Q12H [facility] Last Admin: 03/18/20 10:47 Dose: 165 mls/hr Documented by: Sodium Chloride (Normal Saline) 1,000 mls @ 100 mls/hr IV ASDIRECTED [facility] Last Admin: 03/18/20 00:39 Dose: 100 mls/hr Documented by: Sodium Chloride (Normal Saline) 500 mls @ 500 mls/hr IV .BOLUS ONE Stop: 03/17/20 11:41 Last Admin: 03/17/20 10:56 Dose: 500 mls/hr Documented by: Lidocaine HCl (Xylocaine-Mpf 1%) Confirm Administered Dose 2 mls @ as directed .ROUTE .STK-MED ONE Stop: 03/17/20 11:04 Fat Emulsion Intravenous (Intralipid 20%) 100 mls @ 8.3 mls/hr IV Q24H [facility] Last Admin: 03/17/20 16:07 Dose: 8.3 mls/hr Documented by: Sodium Chloride (Normal Saline) 1,000 mls @ 500 mls/hr IV ASDIRECTED [facility] Stop: 03/17/20 18:46 Propofol (Diprivan 100 Ml) Confirm Administered Dose 100 mls @ as directed .ROUTE .STK-MED ONE Stop: 03/18/20 10:45 Last Admin: 03/18/20 11:54 Dose: Not Given Documented by: Vancomycin HCl 1 gm/ Sodium (Chloride) 250 mls @ 167 mls/hr IV Q24H [facility] Last Admin: 03/19/20 11:27 Dose: 167 mls/hr Documented by: Acetaminophen 1,000 mg/ Premix 100 mls @ 400 mls/hr IV Q8H PRN PRN Reason: Fever Stop: 03/19/20 15:34 Last Admin: 03/19/20 07:48 Dose: 400 mls/hr Documented by: Acetaminophen 1,000 mg/ Premix 100 mls @ 400 mls/hr IV Q8H PRN PRN Reason: Fever Stop: 03/20/20 15:46 Magnesium Sulfate 2 gm/ Premix 50 mls @ 25 mls/hr IV Q6H [facility] Stop: 03/20/20 16:59 Last Admin: 03/20/20 14:35 Dose: 25 mls/hr Documented by: Ibuprofen (Motrin) 400 mg PO ONETIME ONE Stop: 03/17/20 13:01 Last Admin: 03/17/20 12:59 Dose: 400 mg Documented by: Iopamidol (Isovue-300 (61%)) 112 ml IV ONETIME ONE Stop: 03/15/20 11:17 Last Admin: 03/15/20 19:33 Dose: Not Given Documented by: Iopamidol (Isovue-370 (76%)) 100 ml IV . DIRECTED [facility] Last Admin: 03/16/20 19:31 Dose: 100 ml Documented by: Lactobacillus Rhamnosus (Culturelle) 1 cap PO BID [facility] Last Admin: 03/18/20 08:56 Dose: 1 cap Documented by: Lidocaine/Epinephrine (Xylocaine 1% With Epinephrine 1:100,000) Confirm Administ ered Dose 50 ml .ROUTE .STK-MED ONE Stop: 03/17/20 10:55 Last Admin: 03/17/20 11:30 Dose: 3.5 ml Documented by: Lorazepam (Ativan) 1 mg IVPUSH ONETIME ONE Stop: 03/15/20 11:31 Last Admin: 03/15/20 11:40 Dose: 1 mg Documented by: Lorazepam (Ativan) 0.5 mg IVPUSH Q4H PRN PRN Reason: Nausea/Vomiting Lorazepam (Ativan) 0.5 mg IVPUSH ONETIME ONE Stop: 03/18/20 06:38 Last Admin: 03/18/20 07:04 Dose: 0.5 mg Documented by: Midazolam HCl (Versed 1 Mg/Ml) Confirm Administered Dose 2 mg .ROUTE .STK-MED ONE Stop: 03/17/20 09:56 Non-Formulary Medication (Total Parenteral Nutrition, Central) 1,000 ml .XX .Continue Order [facility] Stop: 03/17/20 08:01 Non-Formulary Medication (Total Parenteral Nutrition, Central) 0 ml IV ONETIME [facility] Stop: 03/20/20 12:01 Oxycodone HCl (Oxycodone) 5 mg PO Q4H PRN PRN Reason: Pain Last Admin: 03/17/20 13:29 Dose: 5 mg Documented by: Propofol (Diprivan 20 Ml) Confirm Administered Dose 200 mg .ROUTE .STK-MED ONE Stop: 03/17/20 09:55 Propofol (Diprivan 20 Ml) Confirm Administered Dose 200 mg .ROUTE .STK-MED ONE Stop: 03/18/20 11:22 Sodium Chloride (Saline Flush) 10 ml FLUSH ASDIRECTED PRN PRN Reason: Keep Vein Open Last Admin: 03/15/20 10:11 Dose: 10 ml Documented by: Sodium Chloride (Saline Flush) 10 ml FLUSH ONETIME ONE Stop: 03/15/20 11:17 Last Admin: 03/16/20 19:31 Dose: 10 ml Documented by: Sodium Chloride (Normal Saline) 10 ml FLUSH ONETIME ONE Stop: 03/16/20 17:53 Last Admin: 03/16/20 20:53 Dose: Not Given Documented by: Succinylcholine Chloride (Quelicin) Confirm Administered Dose 200 mg .ROUTE .STK-MED ONE Stop: 03/18/20 11:22 Tizanidine HCl (Zanaflex) 4 mg PO Q6H PRN PRN Reason: muscle cramps Last Admin: 03/18/20 04:05 Dose: 4 mg Documented by: Vancomycin HCl (Vancomycin) 1 gm IV .PHARMACY TO DOSE [facility] Stop: 03/17/20 18:01 - Exam Quality Assessment: Supplemental Oxygen (Ventilator), Central Line/PICC, Urine Catheter, DVT Prophylaxis General: Sedated, Lethargic Lungs: Rales, Rhonchi. No: Crackles, Wheezing Cardiovascular: Regular Rate, Regular Rhythm, No Murmurs GI/Abdominal Exam: Soft, No Organomegaly, No Distention, Tender. No: Distended Extremities: Non-Tender, No Pedal Edema Sepsis Event Note - Evaluation Sepsis Screening Result: Severe Sepsis Risk - Focused Exam Vital Signs: Vital Signs Temp Pulse Resp BP BP Pulse Ox 03/21/20 10:00 90 28 H 104/50 L 99 03/21/20 09:00 98.4 F 92 32 H 105/58 L 98 03/21/20 08:00 94 23 H 126/60 99 03/21/20 07:00 98 F 90 29 H 103/46 L 97 03/21/20 06:00 92 29 H 107/57 L 100 03/21/20 05:00 89 29 H 98/49 L 99 03/21/20 04:00 98.0 F 89 27 H 105/52 L 03/21/20 03:00 94 29 H 113/50 L 99 03/21/20 02:00 94 29 H 116/51 L 98 03/21/20 01:00 91 28 H 98/50 L 97 03/21/20 00:00 98.0 F 86 26 H 94/48 L 95 03/20/20 22:59 89 28 H 95/45 L 96 - Problem List Review Problem List Initiated/Reviewed/Updated: Yes - My Orders Last 24 Hours: My Active Orders 03/20/20 12:00 Vancomycin 1 gm Sodium Chloride 0.9% [Normal Saline] 250 ml IV Q18H 03/20/20 15:29 Initiate/Renew Non-Violent Restraints (All Ages) Q24H 03/21/20 05:00 Chest 1V Frontal [CR] DAILY 03/21/20 08:14 Transfuse Red Blood Cells [COMM] Stat 03/21/20 08:21 Abdomen Comp [US] Stat 03/21/20 17:00 BASIC METABOLIC PANEL,BMP [CHEM] Stat BLOOD GAS ARTERIAL [BG] Stat HGB [HEMOGLOBIN] [HEME] Stat 03/22/20 05:00 Chest 1V Frontal [CR] DAILY BLOOD GAS ARTERIAL [BG] Timed CBC WITH AUTO DIFF [HEME] Timed COMPREHENSIVE METABOLIC PN,CMP [CHEM] Timed 03/23/20 05:00 Chest 1V Frontal [CR] DAILY - Plan Plan:: ASSESSMENT AND PLAN Bilateral pneumonia with sepsis-stable over the last 24 hours, she is now off of IV norepinephrine with stable blood pressures. Follow-up blood cultures remain negative, initial blood cultures growing Enterococcus, sensitive to vancomycin. -Monitor in ICU -blood cultures pending, including repeat cultures which have remained negative -Continue current antibiotic therapy with vancomycin and meropenem -Hold on diuretic therapy today because of increase in creatinine Hypoxic respiratory failure-secondary to bilateral pulmonary infiltrates. Respiratory status stable on current ventilator settings. Remains tachypneic with respiratory alkalosis and metabolic compensation. Currently requiring minimal supplemental oxygen at 35% FiO2. She failed spontaneous breathing trial this morning with significant increase in respiratory rate from baseline. He also failed a trial of IMV yesterday -Mechanical ventilation -Spontaneous breathing trial in a.m. Small bowel obstruction-Long history of Crohn's disease with multiple abdominal surgeries and ileostomy. Transition point appears to be in the abdomen based on CT imaging. Improved from admission, intermittent ostomy output -Symptomatic management of pain and nausea -TPN -Surgical follow-up per Dr. Reno Elevated bilirubin-she still has her gallbladder, CT scan on admission showed evidence of gallbladder sludge but no wall thickening -Direct bilirubin level -Abdominal ultrasound to evaluate for obstruction and/or cholecystitis -Recheck labs in a.m. Pancytopenia-chronic, stable. This usually decompensates slightly when she gets sick or stressed. Hemoglobin 7.1 this morning -Transfuse 1 unit of red blood cells -Follow-up hemoglobin this afternoon and in a.m. -Transfuse hemoglobin less than 7 -Hold enoxaparin because of thrombocytopenia Stage III chronic kidney disease-history of left nephrectomy. Creatinine increased with diuresis -Hold diuretic therapy today -Closely monitor urine output and renal function Maintenance issues - - DVT prophylaxis -SCDs - GI prophylaxis -PPI - Nutrition -n.p.o. - Law catheter -placed to closely monitor urine output CODE STATUS -full code Admission justification -this patient will be admitted for inpatient services and is medically appropriate meeting medical necessity for inpatient admission as outlined in my documentation. I reasonably expect the patient will require inpatient services that span a period time over 2 midnights. I reasonably expect this patient to be discharged or transferred within 96 hours after admission to the [facility]. Disposition -anticipate discharge home after the hospital stay Primary care physician -Dr. Lisa Gerber
[2020-03-21] MEDS: Heparin Sodium 5,000 UNITS in Sodium Chloride 0.9% 500 ML IV SCH (12:04)
[2020-03-21] MEDS: Levofloxacin/Dextrose 5%-Water 750 MG in Premix Bag 1 BAG IV SCH (17:42)
[2020-03-21] MEDS: Ondansetron 4 MG/2 ML SDV IV PRN (20:02)
[2020-03-22] MEDS: propofoL 100 ML IV SCH ×9 (01:52→23:59)
[2020-03-22] MEDS: HYDROmorphone 0.5 MG/0.5 ML Syringe IVPUSH PRN ×6 (03:04→20:40)
[2020-03-22] MEDS: Pantoprazole 40 MG Vial IV SCH (03:09)
[2020-03-22] MEDS: Ondansetron 4 MG/2 ML SDV IV PRN (03:16)
[2020-03-22] MEDS: 1: AA 5%/Calcium/D15W/Lytes 1,000 ML with MVI, Adult with Vitamin K 10 ML, Zinc/Copper/M IV SCH ×3 (06:03)
[2020-03-22] MEDS ORDERED: Furosemide 40 MG/4 ML VIAL IVPUSH ONE (09:00)
--- NOTE | 2020-03-22 10:02 | PCM.PN ---
- General Info Date of Service: 03/22/20 Subjective Update: Ms. Foley held spontaneous breathing trial again this morning with increase in respiratory rate. Respiratory status is otherwise been fairly stable and her overall rate on the ventilator has slowly decreased over the past few days, now in the mid 20s when at rest. Unfortunately she has developed progressive increase in bilirubin. Unable to provide meaningful information concerning history or review of systems because of sedation and intubation. - Patient Data Vitals - Most Recent: Last Vital Signs Temp 98 F 03/22/20 07:00 Pulse 94 03/22/20 09:00 Resp 26 H 03/22/20 09:00 BP 140/61 03/22/20 09:00 Pulse Ox 99 03/22/20 09:00 Weight - Most Recent: 179 lb 3.2 oz I&O - Last 24 Hours: Intake & Output 03/21/20 03/22/20 03/22/20 22:59 06:59 14:59 Intake Total 3864 1855 Output Total 790 1125 850 Balance 3074 730 -850 Lab Results Last 24 Hours: Laboratory Results - last 24 hr 03/17/20 03/20/20 03/21/20 Range/Units 04:00 05:00 17:00 WBC (4.5-11.0) K/uL RBC (3.30-5.50) M/uL Hgb 7.9 L (12.0-15.0) g/dL Hct (36.0-48.0) % MCV (80-98) fL MCH (27-31) pg MCHC (32-36) % Plt Count (150-400) K/uL Add Manual Diff Neutrophils % (Manual) (36-66) % Band Neutrophils % (5-11) % Lymphocytes % (Manual) (24-44) % Monocytes % (Manual) (2-6) % Puncture Site ABG pH (7.350-7.450) ABG pCO2 (35.0-42.0) mmHg ABG pO2 (75.0-100.0) mmHg ABG HCO3 (22.0-26.0) mmol/L ABG Total CO2 (21.0-25.0) mmol/L ABG O2 Saturation (95.0-98.0) % ABG O2 Content (15.0-23.0) %vol ABG Base Excess mm/L ABG Hemoglobin (12.0-16.0) g/dL ABG Oxyhemoglobin % ABG Carboxyhemoglobin (0.0-1.6) % ABG Methemoglobin % César Test O2 Delivery Device Oxygen Flow Rate L Sodium (140-148) mmol/L Potassium (3.6-5.2) mmol/L Chloride (100-108) mmol/L Carbon Dioxide (21-32) mmol/L Anion Gap (5.0-14.0) mmol/L BUN (7-18) mg/dL Creatinine (0.6-1.0) mg/dL Est Cr Clr Drug Dosing mL/min Estimated GFR (MDRD) (>60) Glucose (74-106) mg/dL Calcium (8.5-10.1) mg/dL Total Bilirubin (0.2-1.0) mg/dL AST (15-37) U/L ALT (12-78) U/L Alkaline Phosphatase (46-116) U/L Total Protein (6.4-8.2) g/dL Albumin (3.4-5.0) g/dL Globulin (2.3-3.5) g/dL Albumin/Globulin Ratio (1.2-2.2) Blood Type A POSITIVE Gel Antibody Screen Positive A* Antibody Identification Anti-K Crossmatch See Detail See Detail 03/21/20 03/21/20 03/22/20 Range/Units 17:00 17:00 04:42 WBC 2.7 L (4.5-11.0) K/uL RBC 2.68 L (3.30-5.50) M/uL Hgb 7.9 L (12.0-15.0) g/dL Hct 25.9 L (36.0-48.0) % MCV 97 (80-98) fL MCH 30 (27-31) pg MCHC 31 L (32-36) % Plt Count 56 L (150-400) K/uL Add Manual Diff Yes Neutrophils % (Manual) 60 (36-66) % Band Neutrophils % 12 H (5-11) % Lymphocytes % (Manual) 18 L (24-44) % Monocytes % (Manual) 10 H (2-6) % Puncture Site A-line ABG pH 7.392 (7.350-7.450) ABG pCO2 31.1 L (35.0-42.0) mmHg ABG pO2 200.0 H (75.0-100.0) mmHg ABG HCO3 18.5 L (22.0-26.0) mmol/L ABG Total CO2 17.7 L (21.0-25.0) mmol/L ABG O2 Saturation 99.6 H (95.0-98.0) % ABG O2 Content 10.9 L (15.0-23.0) %vol ABG Base Excess -5.3 mm/L ABG Hemoglobin 7.9 L (12.0-16.0) g/dL ABG Oxyhemoglobin 93.9 % ABG Carboxyhemoglobin 4.7 H (0.0-1.6) % ABG Methemoglobin 1.0 % César Test Not performed O2 Delivery Device Nasal cannula Oxygen Flow Rate L Sodium 138 L (140-148) mmol/L Potassium 4.4 (3.6-5.2) mmol/L Chloride 106 (100-108) mmol/L Carbon Dioxide 18 L (21-32) mmol/L Anion Gap 18.4 H (5.0-14.0) mmol/L BUN 49 H (7-18) mg/dL Creatinine 1.7 H (0.6-1.0) mg/dL Est Cr Clr Drug Dosing 34.13 mL/min Estimated GFR (MDRD) 31 L (>60) Glucose 118 H (74-106) mg/dL Calcium 7.9 L (8.5-10.1) mg/dL Total Bilirubin (0.2-1.0) mg/dL AST (15-37) U/L ALT (12-78) U/L Alkaline Phosphatase (46-116) U/L Total Protein (6.4-8.2) g/dL Albumin (3.4-5.0) g/dL Globulin (2.3-3.5) g/dL Albumin/Globulin Ratio (1.2-2.2) Blood Type Gel Antibody Screen Antibody Identification Crossmatch 03/22/20 03/22/20 Range/Units 04:42 04:42 WBC (4.5-11.0) K/uL RBC (3.30-5.50) M/uL Hgb (12.0-15.0) g/dL Hct (36.0-48.0) % MCV (80-98) fL MCH (27-31) pg MCHC (32-36) % Plt Count (150-400) K/uL Add Manual Diff Neutrophils % (Manual) (36-66) % Band Neutrophils % (5-11) % Lymphocytes % (Manual) (24-44) % Monocytes % (Manual) (2-6) % Puncture Site A-line ABG pH 7.304 L (7.350-7.450) ABG pCO2 37.6 (35.0-42.0) mmHg ABG pO2 174.0 H (75.0-100.0) mmHg ABG HCO3 18.1 L (22.0-26.0) mmol/L ABG Total CO2 17.6 L (21.0-25.0) mmol/L ABG O2 Saturation 99.2 H (95.0-98.0) % ABG O2 Content 10.9 L (15.0-23.0) %vol ABG Base Excess -7.1 mm/L ABG Hemoglobin 8.0 L (12.0-16.0) g/dL ABG Oxyhemoglobin 93.6 % ABG Carboxyhemoglobin 3.9 H (0.0-1.6) % ABG Methemoglobin 1.7 % César Test A-line O2 Delivery Device Nasal cannula Oxygen Flow Rate L Sodium 139 L (140-148) mmol/L Potassium 4.4 (3.6-5.2) mmol/L Chloride 108 (100-108) mmol/L Carbon Dioxide 20 L (21-32) mmol/L Anion Gap 15.4 H (5.0-14.0) mmol/L BUN 47 H (7-18) mg/dL Creatinine 1.5 H (0.6-1.0) mg/dL Est Cr Clr Drug Dosing 38.68 mL/min Estimated GFR (MDRD) 35 L (>60) Glucose 134 H (74-106) mg/dL Calcium 8.1 L (8.5-10.1) mg/dL Total Bilirubin 12.0 H D (0.2-1.0) mg/dL AST 145 H (15-37) U/L ALT 32 (12-78) U/L Alkaline Phosphatase 210 H (46-116) U/L Total Protein 6.1 L (6.4-8.2) g/dL Albumin 1.4 L (3.4-5.0) g/dL Globulin 4.7 H (2.3-3.5) g/dL Albumin/Globulin Ratio 0.3 L (1.2-2.2) Blood Type Gel Antibody Screen Antibody Identification Crossmatch Eliud Results Last 24 Hours: Microbiology 03/18/20 06:20 Aerobic Blood Culture - Preliminary Blood - Artery NO GROWTH AFTER 4 DAYS Anaerobic Blood Culture - Preliminary NO GROWTH AFTER 4 DAYS 03/18/20 05:56 Aerobic Blood Culture - Preliminary Blood - Picc Line NO GROWTH AFTER 4 DAYS Anaerobic Blood Culture - Preliminary NO GROWTH AFTER 4 DAYS 03/16/20 16:30 Aerobic Blood Culture - Final Blood - Artery NO GROWTH AFTER 5 DAYS Anaerobic Blood Culture - Final NO GROWTH AFTER 5 DAYS Med Orders - Current: Current Medications Duloxetine HCl (Cymbalta) 60 mg PO DAILY [facility] Last Admin: 03/21/20 09:08 Dose: Not Given Documented by: Famotidine (Pepcid) 20 mg IVPUSH Q24H [facility] Hydromorphone HCl (Dilaudid) 0.5 mg IVPUSH Q3H PRN PRN Reason: Pain Last Admin: 03/22/20 09:01 Dose: 0.5 mg Documented by: Multivitamins/Minerals 10 ml/Zinc 1 ml/ Amino Ac/Electrol/Dextrose/Calcium 1,01 1 mls @ 100 mls/hr IV .BY DURATION [facility] Last Admin: 03/21/20 11:19 Dose: 100 mls/hr Documented by: Amino Ac/Electrol/Dextrose/Calcium (Clinimix E 5/15) 1,000 mls @ 100 mls/hr IV .BY DURATION [facility] Last Admin: 03/22/20 06:03 Dose: 100 mls/hr Documented by: Propofol (Diprivan 100 Ml) 100 mls @ 2.28 mls/hr IV TITRATE [facility]; Protocol Last Titration: 03/22/20 09:04 Dose: 90 mcg/kg/min, 41.04 mls/hr Documented by: Heparin Sodium (Porcine) 5,000 (units/ Sodium Chloride) 501 mls @ 1 mls/hr IV ASDIRECTED [facility] Last Admin: 03/21/20 12:04 Dose: 1 mls/hr Documented by: Vancomycin HCl 1 gm/ Sodium (Chloride) 250 mls @ 167 mls/hr IV Q18H [facility] Last Admin: 03/21/20 23:29 Dose: 167 mls/hr Documented by: Piperacillin/Tazobactam/ (Dextrose 2.25 gm/ Premix) 50 mls @ 100 mls/hr IV Q6H [facility] Imipramine HCl (Imipramine Hcl) 200 mg PO BEDTIME [facility] Last Admin: 03/17/20 20:04 Dose: 200 mg Documented by: Olanzapine (Zyprexa) 5 mg PO BID [facility] Last Admin: 03/18/20 08:56 Dose: 5 mg Documented by: Ondansetron HCl (Zofran) 4 mg IV Q6H PRN PRN Reason: Nausea/Vomiting Last Admin: 03/22/20 03:16 Dose: 4 mg Documented by: Ondansetron HCl (Zofran Odt) 4 mg PO Q6H PRN PRN Reason: Nausea able to take PO Discontinued Medications Acetaminophen (Tylenol Extra Strength) 1,000 mg PO ONETIME ONE Stop: 03/15/20 11:16 Last Admin: 03/15/20 11:26 Dose: 1,000 mg Documented by: Acetaminophen (Tylenol) 650 mg PO Q4H PRN PRN Reason: Pain (Mild 1-3)/fever Last Admin: 03/17/20 19:56 Dose: 650 mg Documented by: Bupivacaine HCl (Marcaine 0.5%) Confirm Administered Dose 50 ml .ROUTE .STK-MED ONE Stop: 03/17/20 10:55 Last Admin: 03/17/20 11:30 Dose: 3.5 ml Documented by: Enoxaparin Sodium (Lovenox) 40 mg SUBCUT Q24H [facility] Last Admin: 03/17/20 16:05 Dose: 40 mg Documented by: Fentanyl (Sublimaze) Confirm Administered Dose 100 mcg .ROUTE .STK-MED ONE Stop: 03/17/20 09:55 Furosemide (Lasix) 40 mg IVPUSH NOW ONE Stop: 03/19/20 13:01 Last Admin: 03/19/20 13:40 Dose: 40 mg Documented by: Furosemide (Lasix) 40 mg IVPUSH NOW ONE Stop: 03/20/20 08:21 Last Admin: 03/20/20 08:36 Dose: 40 mg Documented by: Furosemide (Lasix) 40 mg IVPUSH NOW ONE Stop: 03/20/20 21:01 Last Admin: 03/20/20 22:16 Dose: 40 mg Documented by: Furosemide (Lasix) 40 mg IVPUSH NOW ONE Stop: 03/22/20 09:01 Last Admin: 03/22/20 08:30 Dose: 40 mg Documented by: Heparin Sodium (Porcine) (Heparin Lock Flush 100 Units/Ml) Confirm Administered Dose 500 units .ROUTE .STK-MED ONE Stop: 03/17/20 10:55 Last Admin: 03/17/20 11:40 Dose: 500 units Documented by: Heparin Sodium (Porcine) (Heparin Sodium) Confirm Administered Dose 5,000 units .ROUTE .STK-MED ONE Stop: 03/18/20 10:59 Last Admin: 03/18/20 11:54 Dose: Not Given Documented by: Hydromorphone HCl (Dilaudid) 0.5 mg IVPUSH ONETIME ONE Stop: 03/15/20 10:00 Last Admin: 03/15/20 10:10 Dose: 0.5 mg Documented by: Hydromorphone HCl (Dilaudid) 0.5 mg IVPUSH ONETIME ONE Stop: 03/15/20 11:10 Last Admin: 03/15/20 11:15 Dose: 0.5 mg Documented by: Hydromorphone HCl (Dilaudid) 0.5 mg IVPUSH ONETIME ONE Stop: 03/15/20 13:39 Last Admin: 03/15/20 14:04 Dose: 0.5 mg Documented by: Hydromorphone HCl (Dilaudid) 1 mg IVPUSH Q2H PRN PRN Reason: Pain (severe 7-10) Last Admin: 03/16/20 09:43 Dose: 1 mg Documented by: Sodium Chloride (Normal Saline) 1,000 mls @ 500 mls/hr IV ASDIRECTED [facility] Last Admin: 03/15/20 11:13 Dose: 500 mls/hr Documented by: Magnesium Sulfate (Magnesium Sulfate In Water Premix) 2 gm in 50 mls @ 25 mls/hr IV ONETIME ONE Stop: 03/15/20 12:43 Last Admin: 03/15/20 11:14 Dose: 25 mls/hr Documented by: Sodium Chloride (Normal Saline) 74 mls @ 3 mls/sec IV ASDIRECTED [facility] Stop: 03/15/20 11:31 Lactated Ringer's (Ringers, Lactated) 1,000 mls @ 0 mls/hr IV ASDIRECTED [facility] Last Admin: 03/16/20 09:48 Dose: 100 mls/hr Documented by: Magnesium Sulfate (Magnesium Sulfate In Water Premix) 2 gm in 50 mls @ 12.5 mls/hr IV Q6H [facility] Stop: 03/16/20 05:59 Last Admin: 03/16/20 02:41 Dose: 12.5 mls/hr Documented by: Fat Emulsion Intravenous (Intralipid 20%) 100 mls @ 8.3 mls/hr IV Q24H [facility] Last Admin: 03/16/20 16:01 Dose: 8.3 mls/hr Documented by: Multivitamins/Minerals 10 ml/Zinc 1 ml/ Amino Ac/Electrol/Dextrose/Calcium 1,011 mls @ 100 mls/hr IV .BY DURATION [facility] Last Admin: 03/16/20 12:07 Dose: 100 mls/hr Documented by: Amino Ac/Electrol/Dextrose/Calcium (Clinimix E 15) 1,000 mls @ 100 mls/hr IV .BY DURATION [facility] Last Admin: 03/16/20 21:55 Dose: 100 mls/hr Documented by: Meropenem 1 gm/ Sodium (Chloride) 100 mls @ 200 mls/hr IV Q8H [facility] Last Admin: 03/18/20 09:56 Dose: 200 mls/hr Documented by: Levofloxacin/Dextrose 750 mg/ (Premix) 150 mls @ 100 mls/hr IV Q24H [facility] Last Admin: 03/17/20 19:06 Dose: 100 mls/hr Documented by: Sodium Chloride (Normal Saline) 100 mls @ 3 mls/sec IV ASDIRECTED [facility] Last Admin: 03/16/20 19:31 Dose: 3 mls/sec Documented by: Vancomycin HCl 2 gm/ Sodium (Chloride) 500 mls @ 250 mls/hr IV ONETIME ONE Stop: 03/16/20 21:59 Last Admin: 03/16/20 22:41 Dose: 250 mls/hr Documented by: Vancomycin HCl 1 gm/ Sodium (Chloride) 250 mls @ 166.667 mls/hr IV Q12H [facility] Vancomycin HCl 1 gm/ Sodium (Chloride) 250 mls @ 165 mls/hr IV Q12H [facility] Last Admin: 03/18/20 10:47 Dose: 165 mls/hr Documented by: Sodium Chloride (Normal Saline) 1,000 mls @ 100 mls/hr IV ASDIRECTED [facility] Last Admin: 03/18/20 00:39 Dose: 100 mls/hr Documented by: Sodium Chloride (Normal Saline) 500 mls @ 500 mls/hr IV .BOLUS ONE Stop: 03/17/20 11:41 Last Admin: 03/17/20 10:56 Dose: 500 mls/hr Documented by: Lidocaine HCl (Xylocaine-Mpf 1%) Confirm Administered Dose 2 mls @ as directed .ROUTE .STK-MED ONE Stop: 03/17/20 11:04 Fat Emulsion Intravenous (Intralipid 20%) 100 mls @ 8.3 mls/hr IV Q24H [facility] Last Admin: 03/17/20 16:07 Dose: 8.3 mls/hr Documented by: Norepinephrine Bitartrate 4 mg (/ Dextrose/Water) 250 mls @ 7.5 mls/hr IV TITRATE [facility]; Protocol Last Titration: 03/19/20 22:00 Dose: 0 mcg/min, 0 mls/hr Documented by: Sodium Chloride (Normal Saline) 1,000 mls @ 500 mls/hr IV ASDIRECTED [facility] Stop: 03/17/20 18:46 Propofol (Diprivan 100 Ml) Confirm Administered Dose 100 mls @ as directed .ROUTE .STK-MED ONE Stop: 03/18/20 10:45 Last Admin: 03/18/20 11:54 Dose: Not Given Documented by: Levofloxacin/Dextrose 750 mg/ (Premix) 150 mls @ 100 mls/hr IV Q48H [facility] Last Admin: 03/21/20 17:42 Dose: 100 mls/hr Documented by: Meropenem 1 gm/ Sodium (Chloride) 100 mls @ 200 mls/hr IV Q12H [facility] Last Admin: 03/21/20 22:57 Dose: 200 mls/hr Documented by: Vancomycin HCl 1 gm/ Sodium (Chloride) 250 mls @ 167 mls/hr IV Q24H [facility] Last Admin: 03/19/20 11:27 Dose: 167 mls/hr Documented by: Acetaminophen 1,000 mg/ Premix 100 mls @ 400 mls/hr IV Q8H PRN PRN Reason: Fever Stop: 03/19/20 15:34 Last Admin: 03/19/20 07:48 Dose: 400 mls/hr Documented by: Acetaminophen 1,000 mg/ Premix 100 mls @ 400 mls/hr IV Q8H PRN PRN Reason: Fever Stop: 03/20/20 15:46 Magnesium Sulfate 2 gm/ Premix 50 mls @ 25 mls/hr IV Q6H [facility] Stop: 03/20/20 16:59 Last Admin: 03/20/20 14:35 Dose: 25 mls/hr Documented by: Ibuprofen (Motrin) 400 mg PO ONETIME ONE Stop: 03/17/20 13:01 Last Admin: 03/17/20 12:59 Dose: 400 mg Documented by: Iopamidol (Isovue-300 (61%)) 112 ml IV ONETIME ONE Stop: 03/15/20 11:17 Last Admin: 03/15/20 19:33 Dose: Not Given Documented by: Iopamidol (Isovue-370 (76%)) 100 ml IV . DIRECTED [facility] Last Admin: 03/16/20 19:31 Dose: 100 ml Documented by: Lactobacillus Rhamnosus (Culturelle) 1 cap PO BID [facility] Last Admin: 03/18/20 08:56 Dose: 1 cap Documented by: Lidocaine/Epinephrine (Xylocaine 1% With Epinephrine 1:100,000) Confirm Administered Dose 50 ml .ROUTE .STK-MED ONE Stop: 03/17/20 10:55 Last Admin: 03/17/20 11:30 Dose: 3.5 ml Documented by: Lorazepam (Ativan) 1 mg IVPUSH ONETIME ONE Stop: 03/15/20 11:31 Last Admin: 03/15/20 11:40 Dose: 1 mg Documented by: Lorazepam (Ativan) 0.5 mg IVPUSH Q4H PRN PRN Reason: Nausea/Vomiting Lorazepam (Ativan) 0.5 mg IVPUSH ONETIME ONE Stop: 03/18/20 06:38 Last Admin: 03/18/20 07:04 Dose: 0.5 mg Documented by: Midazolam HCl (Versed 1 Mg/Ml) Confirm Administered Dose 2 mg .ROUTE .STK-MED ONE Stop: 03/17/20 09:56 Non-Formulary Medication (Total Parenteral Nutrition, Central) 1,000 ml .XX .Continue Order [facility] Stop: 03/17/20 08:01 Non-Formulary Medication (Total Parenteral Nutrition, Central) 0 ml IV ONETIME [facility] Stop: 03/20/20 12:01 Non-Formulary Medication (Total Parenteral Nutrition, Central) 0 ml IV ONETIME [facility] Stop: 03/21/20 12:00 Oxycodone HCl (Oxycodone) 5 mg PO Q4H PRN PRN Reason: Pain Last Admin: 03/17/20 13:29 Dose: 5 mg Documented by: Pantoprazole Sodium (Protonix Iv) 40 mg IV Q12H [facility] Last Admin: 03/22/20 03:09 Dose: 40 mg Documented by: Propofol (Diprivan 20 Ml) Confirm Administered Dose 200 mg .ROUTE .STK-MED ONE Stop: 03/17/20 09:55 Propofol (Diprivan 20 Ml) Confirm Administered Dose 200 mg .ROUTE .STK-MED ONE Stop: 03/18/20 11:22 Sodium Chloride (Saline Flush) 10 ml FLUSH ASDIRECTED PRN PRN Reason: Keep Vein Open Last Admin: 03/15/20 10:11 Dose: 10 ml Documented by: Sodium Chloride (Saline Flush) 10 ml FLUSH ONETIME ONE Stop: 03/15/20 11:17 Last Admin: 03/16/20 19:31 Dose: 10 ml Documented by: Sodium Chloride (Normal Saline) 10 ml FLUSH ONETIME ONE Stop: 03/16/20 17:53 Last Admin: 03/16/20 20:53 Dose: Not Given Documented by: Succinylcholine Chloride (Quelicin) Confirm Administered Dose 200 mg .ROUTE .STK-MED ONE Stop: 03/18/20 11:22 Tizanidine HCl (Zanaflex) 4 mg PO Q6H PRN PRN Reason: muscle cramps Last Admin: 03/18/20 04:05 Dose: 4 mg Documented by: Vancomycin HCl (Vancomycin) 1 gm IV .PHARMACY TO DOSE [facility] Stop: 03/17/20 18:01 - Exam Quality Assessment: Supplemental Oxygen (Ventilator), Central Line/PICC, Urine Catheter, DVT Prophylaxis General: Sedated, Lethargic Lungs: Rhonchi. No: Crackles, Rales, Rub, Wheezing Cardiovascular: Regular Rate, Regular Rhythm, No Murmurs GI/Abdominal Exam: Soft, Non-Tender, No Organomegaly, No Distention Extremities: Non-Tender, No Pedal Edema Skin: Warm, Dry Sepsis Event Note - Evaluation Sepsis Screening Result: Severe Sepsis Risk - Focused Exam Vital Signs: Vital Signs Temp Pulse Resp BP BP Pulse Ox 03/22/20 09:00 94 26 H 140/61 99 03/22/20 08:00 98 48 H 182/76 H 98 03/22/20 07:00 98 F 80 27 H 118/56 L 98 03/22/20 06:00 86 26 H 141/65 H 99 03/22/20 05:00 90 26 H 150/70 H 100 03/22/20 04:00 97.2 F 89 24 H 145/55 H 99 03/22/20 03:00 92 26 H 142/68 H 98 03/22/20 02:00 86 28 H 141/73 H 98 03/22/20 01:00 82 30 H 126/66 99 03/22/20 00:00 97.7 F 82 29 H 122/60 99 03/21/20 23:00 83 27 H 130/63 99 03/21/20 22:00 87 26 H 128/58 L 99 - Problem List Review Problem List Initiated/Reviewed/Updated: Yes - My Orders Last 24 Hours: My Active Orders 03/21/20 16:02 Initiate/Renew Non-Violent Restraints (All Ages) Q24H 03/22/20 05:00 Chest 1V Frontal [CR] DAILY 03/22/20 10:00 Piperacillin/Tazobactam/Dext [Zosyn in Dextrose Iso-Osmotic] 2.25 gm Premix Bag 1 bag IV Q6H 03/22/20 16:00 Famotidine [Pepcid] 20 mg IVPUSH Q24H 03/22/20 17:00 BASIC METABOLIC PANEL,BMP [CHEM] Stat HGB [HEMOGLOBIN] [HEME] Stat 03/23/20 05:00 Chest 1V Frontal [CR] DAILY BLOOD GAS ARTERIAL [BG] Timed CBC WITH AUTO DIFF [HEME] Timed COMPREHENSIVE METABOLIC PN,CMP [CHEM] Timed MAGNESIUM [CHEM] Timed 03/23/20 11:30 VANCOMYCIN TROUGH [CHEM] Timed 03/24/20 05:00 Chest 1V Frontal [CR] DAILY 03/25/20 05:00 Chest 1V Frontal [CR] DAILY 03/26/20 05:00 Chest 1V Frontal [CR] DAILY - Plan Plan:: ASSESSMENT AND PLAN Bilateral pneumonia with sepsis-stable over the last 24 hours, she is now off of IV norepinephrine with stable blood pressures. Follow-up blood cultures remain negative, initial blood cultures growing Enterococcus, sensitive to vancomycin. -Monitor in ICU -blood cultures pending, including repeat cultures which have remained negative -Meropenem discontinued today because of elevated bilirubin -Continue current antibiotic therapy with vancomycin -Add Zosyn to replace meropenem -Furosemide 40 mg IV today Hypoxic respiratory failure-secondary to bilateral pulmonary infiltrates. Respiratory status stable on current ventilator settings. Respiratory rate slowly decreasing at rest, now in the mid 20s. Oxygenating well on minimal FiO2 at 35%, with no significant CO2 retention. She failed spontaneous breathing trial again this morning with increase in respiratory rate and agitation. -Mechanical ventilation -Spontaneous breathing trial in a.m. Small bowel obstruction-Long history of Crohn's disease with multiple abdominal surgeries and ileostomy. Transition point appears to be in the abdomen based on CT imaging. Improved from admission, intermittent ostomy output -Symptomatic management of pain and nausea -Hold TPN -Surgical follow-up per Dr. Reno Elevated bilirubin-she still has her gallbladder, ultrasound obtained yesterday showed no evidence of ductal dilatation or acute cholecystitis. She was noted to have sludge and stones within the gallbladder. Medications reviewed today to look for possible medication effect. -Discontinue Protonix, meropenem, and hold TPN today -Recheck labs in a.m. Pancytopenia-chronic, stable. This usually decompensates slightly when she gets sick or stressed. Hemoglobin stable since yesterday at 7.9 -Follow-up hemoglobin this afternoon and in a.m. -Transfuse hemoglobin less than 7 -Hold enoxaparin because of thrombocytopenia Stage III chronic kidney disease-history of left nephrectomy. Creatinine increased with diuresis -Hold diuretic therapy today -Closely monitor urine output and renal function Maintenance issues - - DVT prophylaxis -SCDs - GI prophylaxis -Pepcid - Nutrition -n.p.o. - Law catheter -placed to closely monitor urine output CODE STATUS -full code Admission justification -this patient will be admitted for inpatient services and is medically appropriate meeting medical necessity for inpatient admission as outlined in my documentation. I reasonably expect the patient will require inpatient services that span a period time over 2 midnights. I reasonably expect this patient to be discharged or transferred within 96 hours after admission to the [facility]. Disposition -anticipate discharge home after the hospital stay Primary care physician -Dr. Lisa Gerber
[2020-03-22] MEDS: Piperacillin/Tazobactam/Dext 2.25 GM in Premix Bag 1 BAG IV SCH ×3 (10:05→21:58)
--- NOTE | 2020-03-22 11:59 | OR ---
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 PROCEDURES: 1. Removal of James catheter (left subclavian vein position) (49217). 2. Insertion of triple-lumen catheter via right subclavian vein approach (19632). ANESTHESIA: Local plus IV sedation. INDICATIONS FOR PROCEDURE: A 59-year-old female presenting with a picture of sepsis. Blood cultures were obtained and showed a positive culture for Gram-positive cocci from the James catheter site, and given this with other obvious sources of sepsis apart from some viral seeding into the lungs via the infected James catheter, the James catheter is to be removed. We attempted to place a PICC line earlier which was unsuccessful and given this, the patient will need a secondary temporary central line placed. Potential risks of the procedure including bleeding, infection, pneumohemothorax, or vascular injury were reviewed with the patient and she wishes to proceed. DETAILS OF THE PROCEDURE: The patient was placed in a supine position. After IV sedation was administered, the initial area around the James catheter site was anesthetized with 1% lidocaine. A small incision was made over the end of the catheter and the fibrous button then dissected free. The catheter was then removed. A small amount of purulence around the catheter was noted, this was cultured, and upon removal of the catheter, the tip was also sent for culture. Dressing then applied to that area. The right upper chest wall and neck were then sterilely prepped and draped, and the right subclavian vein cannulated, guidewire passed. Over the guidewire, a triple-lumen catheter positioned, this was noted to pass into the superior vena cava. Good in and outflow was noted at the ports; ports were flushed with heparinized saline, and the catheter was sutured to the skin with simple 3-0 silk stitch and dressing applied. The patient was taken to the recovery room in satisfactory condition. Shamar Reno MD /[id number]
[2020-03-22] MEDS: Famotidine 20 MG/2 ML SDV IVPUSH SCH (15:39)
[2020-03-22] MEDS: OLANZapine 5 MG Tab PO SCH (20:41)
[2020-03-23] MEDS: HYDROmorphone 0.5 MG/0.5 ML Syringe IVPUSH PRN ×10 (00:17→23:10)
[2020-03-23] MEDS: Ondansetron 4 MG/2 ML SDV IV PRN (01:58)
[2020-03-23] MEDS: propofoL 100 ML IV SCH ×10 (02:32→23:25)
[2020-03-23] MEDS: Piperacillin/Tazobactam/Dext 2.25 GM in Premix Bag 1 BAG IV SCH ×4 (03:37→22:56)
--- NOTE | 2020-03-23 09:24 | CR ---
CHEST: Portable 03/21/2020 at 4:35 AM CLINICAL HISTORY:Respiratory failure COMPARISON:03/20/2020 FINDINGS: Endotracheal tube is in the distal third of the trachea. Right-sided thickening catheter is in the right atrium. Diffuse bilateral pulmonary infiltrates persist unchanged. IMPRESSION: No significant interval change of bilateral pulmonary infiltrates Endotracheal tube and right central venous line are in place
--- NOTE | 2020-03-23 09:25 | PCM.PN ---
- General Info Date of Service: 03/23/20 Subjective Update: There were no acute events overnight. The patient remains intubated but her sedation is off. She does have her eyes open but does not able to follow any commands at this time. She does nod her head yes when asked about abdominal pain. She did not have any fevers overnight. Blood pressures have been stable. She is needing minimal support from the ventilator and her FiO2 is only 30%. Her spontaneous breathing trial this morning did not go very well and her respiratory rate quickly increased to the 50s. She appeared uncomfortable and anxious. She did receive a dose of pain medication to see if this would help but it did not improve her respiratory rate. There are no new positive culture results. Bilirubin is up to 14.9 today. Functional Status: Reports: Other (intubated and sedated) - Review of Systems General: Denies: Fever - Patient Data Vitals - Most Recent: Last Vital Signs Temp 36.3 C 03/23/20 07:00 Pulse 78 03/23/20 09:00 Resp 52 H 03/23/20 09:00 BP 134/62 03/23/20 09:00 Pulse Ox 98 03/23/20 09:00 Weight - Most Recent: 80.649 kg I&O - Last 24 Hours: Intake & Output 03/22/20 03/23/20 03/23/20 22:59 06:59 14:59 Intake Total 1158 580 Output Total 1365 1430 75 Balance -207 -1430 505 Lab Results Last 24 Hours: Laboratory Results - last 24 hr 03/20/20 03/22/20 03/22/20 Range/Units 05:00 16:57 16:57 WBC (4.5-11.0) K/uL RBC (3.30-5.50) M/uL Hgb 7.6 L (12.0-15.0) g/dL Hct (36.0-48.0) % MCV (80-98) fL MCH (27-31) pg MCHC (32-36) % Plt Count (150-400) K/uL Add Manual Diff Neutrophils % (Manual) (36-66) % Band Neutrophils % (5-11) % Lymphocytes % (Manual) (24-44) % Monocytes % (Manual) (2-6) % Puncture Site ABG pH (7.350-7.450) ABG pCO2 (35.0-42.0) mmHg ABG pO2 (75.0-100.0) mmHg ABG HCO3 (22.0-26.0) mmol/L ABG Total CO2 (21.0-25.0) mmol/L ABG O2 Saturation (95.0-98.0) % ABG O2 Content (15.0-23.0) %vol ABG Base Excess mm/L ABG Hemoglobin (12.0-16.0) g/dL ABG Oxyhemoglobin % ABG Carboxyhemoglobin (0.0-1.6) % ABG Methemoglobin % César Test O2 Delivery Device Oxygen Flow Rate L Sodium 140 (140-148) mmol/L Potassium 4.6 (3.6-5.2) mmol/L Chloride 106 (100-108) mmol/L Carbon Dioxide 19 L (21-32) mmol/L Anion Gap 19.6 H (5.0-14.0) mmol/L BUN 51 H (7-18) mg/dL Creatinine 1.7 H (0.6-1.0) mg/dL Est Cr Clr Drug Dosing 34.13 mL/min Estimated GFR (MDRD) 31 L (>60) Glucose 88 (74-106) mg/dL Calcium 8.1 L (8.5-10.1) mg/dL Magnesium (1.8-2.4) mg/dL Total Bilirubin (0.2-1.0) mg/dL AST (15-37) U/L ALT (12-78) U/L Alkaline Phosphatase (46-116) U/L Total Protein (6.4-8.2) g/dL Albumin (3.4-5.0) g/dL Globulin (2.3-3.5) g/dL Albumin/Globulin Ratio (1.2-2.2) Crossmatch See Detail 03/23/20 03/23/20 03/23/20 Range/Units 07:47 07:47 07:47 WBC 3.1 L (4.5-11.0) K/uL RBC 2.60 L (3.30-5.50) M/uL Hgb 8.0 L (12.0-15.0) g/dL Hct 25.0 L (36.0-48.0) % MCV 96 (80-98) fL MCH 31 (27-31) pg MCHC 32 (32-36) % Plt Count 91 L (150-400) K/uL Add Manual Diff Yes Neutrophils % (Manual) 70 H (36-66) % Band Neutrophils % 9 (5-11) % Lymphocytes % (Manual) 15 L (24-44) % Monocytes % (Manual) 6 (2-6) % Puncture Site A-line ABG pH 7.366 (7.350-7.450) ABG pCO2 29.0 L (35.0-42.0) mmHg ABG pO2 143.0 H (75.0-100.0) mmHg ABG HCO3 16.2 L (22.0-26.0) mmol/L ABG Total CO2 15.6 L (21.0-25.0) mmol/L ABG O2 Saturation 99.1 H (95.0-98.0) % ABG O2 Content 10.2 L (15.0-23.0) %vol ABG Base Excess -7.9 mm/L ABG Hemoglobin 7.7 L (12.0-16.0) g/dL ABG Oxyhemoglobin 91.4 % ABG Carboxyhemoglobin 4.7 H (0.0-1.6) % ABG Methemoglobin 3.1 % César Test A-line O2 Delivery Device Oxygen Flow Rate L Sodium 140 (140-148) mmol/L Potassium 4.9 (3.6-5.2) mmol/L Chloride 108 (100-108) mmol/L Carbon Dioxide 20 L (21-32) mmol/L Anion Gap 16.9 H (5.0-14.0) mmol/L BUN 51 H (7-18) mg/dL Creatinine 1.6 H (0.6-1.0) mg/dL Est Cr Clr Drug Dosing 36.26 mL/min Estimated GFR (MDRD) 33 L (>60) Glucose 95 (74-106) mg/dL Calcium 7.6 L (8.5-10.1) mg/dL Magnesium 2.1 (1.8-2.4) mg/dL Total Bilirubin 14.9 H (0.2-1.0) mg/dL AST 151 H (15-37) U/L ALT 56 (12-78) U/L Alkaline Phosphatase 267 H (46-116) U/L Total Protein 6.3 L (6.4-8.2) g/dL Albumin 1.4 L (3.4-5.0) g/dL Globulin 4.9 H (2.3-3.5) g/dL Albumin/Globulin Ratio 0.3 L (1.2-2.2) Crossmatch Eliud Results Last 24 Hours: Microbiology 03/18/20 06:20 Aerobic Blood Culture - Final Blood - Artery NO GROWTH AFTER 5 DAYS Anaerobic Blood Culture - Final NO GROWTH AFTER 5 DAYS 03/18/20 05:56 Aerobic Blood Culture - Final Blood - Picc Line NO GROWTH AFTER 5 DAYS Anaerobic Blood Culture - Final NO GROWTH AFTER 5 DAYS Med Orders - Current: Current Medications Duloxetine HCl (Cymbalta) 60 mg PO DAILY [facility] Last Admin: 03/21/20 09:08 Dose: Not Given Documented by: Famotidine (Pepcid) 20 mg IVPUSH Q24H [facility] Last Admin: 03/22/20 15:39 Dose: 20 mg Documented by: Hydromorphone HCl (Dilaudid) 0.5 mg IVPUSH Q2H PRN PRN Reason: Pain Multivitamins/Minerals 10 ml/Zinc 1 ml/ Amino Ac/Electrol/Dextrose/Calcium 1,011 mls @ 100 mls/hr IV .BY DURATION [facility] Last Admin: 03/21/20 11:19 Dose: 100 mls/hr Documented by: Amino Ac/Electrol/Dextrose/Calcium (Clinimix E 5/15) 1,000 mls @ 100 mls/hr IV .BY DURATION [facility] Last Admin: 03/22/20 06:03 Dose: 100 mls/hr Documented by: Propofol (Diprivan 100 Ml) 100 mls @ 2.28 mls/hr IV TITRATE [facility]; Protocol Last Titration: 03/23/20 09:10 Dose: 0 mcg/kg/min, 0 mls/hr Documented by: Heparin Sodium (Porcine) 5,000 (units/ Sodium Chloride) 501 mls @ 1 mls/hr IV ASDIRECTED [facility] Last Admin: 03/21/20 12:04 Dose: 1 mls/hr Documented by: Vancomycin HCl 1 gm/ Sodium (Chloride) 250 mls @ 167 mls/hr IV Q18H [facility] Last Admin: 03/22/20 17:17 Dose: 167 mls/hr Documented by: Piperacillin/Tazobactam/ (Dextrose 2.25 gm/ Premix) 50 mls @ 100 mls/hr IV Q6H [facility] Last Admin: 03/23/20 03:37 Dose: 100 mls/hr Documented by: Imipramine HCl (Imipramine Hcl) 200 mg PO BEDTIME [facility] Last Admin: 03/22/20 20:41 Dose: Not Given Documented by: Olanzapine (Zyprexa) 5 mg PO BID [facility] Last Admin: 03/22/20 20:41 Dose: Not Given Documented by: Ondansetron HCl (Zofran) 4 mg IV Q6H PRN PRN Reason: Nausea/Vomiting Last Admin: 03/23/20 01:58 Dose: 4 mg Documented by: Ondansetron HCl (Zofran Odt) 4 mg PO Q6H PRN PRN Reason: Nausea able to take PO Discontinued Medications Acetaminophen (Tylenol Extra Strength) 1,000 mg PO ONETIME ONE Stop: 03/15/20 11:16 Last Admin: 03/15/20 11:26 Dose: 1,000 mg Documented by: Acetaminophen (Tylenol) 650 mg PO Q4H PRN PRN Reason: Pain (Mild 1-3)/fever Last Admin: 03/17/20 19:56 Dose: 650 mg Documented by: Bupivacaine HCl (Marcaine 0.5%) Confirm Administered Dose 50 ml .ROUTE .STK-MED ONE Stop: 03/17/20 10:55 Last Admin: 03/17/20 11:30 Dose: 3.5 ml Documented by: Enoxaparin Sodium (Lovenox) 40 mg SUBCUT Q24H [facility] Last Admin: 03/17/20 16:05 Dose: 40 mg Documented by: Fentanyl (Sublimaze) Confirm Administered Dose 100 mcg .ROUTE .STK-MED ONE Stop: 03/17/20 09:55 Furosemide (Lasix) 40 mg IVPUSH NOW ONE Stop: 03/19/20 13:01 Last Admin: 03/19/20 13:40 Dose: 40 mg Documented by: Furosemide (Lasix) 40 mg IVPUSH NOW ONE Stop: 03/20/20 08:21 Last Admin: 03/20/20 08:36 Dose: 40 mg Documented by: Furosemide (Lasix) 40 mg IVPUSH NOW ONE Stop: 03/20/20 21:01 Last Admin: 03/20/20 22:16 Dose: 40 mg Documented by: Furosemide (Lasix) 40 mg IVPUSH NOW ONE Stop: 03/22/20 09:01 Last Admin: 03/22/20 08:30 Dose: 40 mg Documented by: Heparin Sodium (Porcine) (Heparin Lock Flush 100 Units/Ml) Confirm Administered Dose 500 units .ROUTE .STK-MED ONE Stop: 03/17/20 10:55 Last Admin: 03/17/20 11:40 Dose: 500 units Documented by: Heparin Sodium (Porcine) (Heparin Sodium) Confirm Administered Dose 5,000 units .ROUTE .STK-MED ONE Stop: 03/18/20 10:59 Last Admin: 03/18/20 11:54 Dose: Not Given Documented by: Hydromorphone HCl (Dilaudid) 0.5 mg IVPUSH ONETIME ONE Stop: 03/15/20 10:00 Last Admin: 03/15/20 10:10 Dose: 0.5 mg Documented by: Hydromorphone HCl (Dilaudid) 0.5 mg IVPUSH ONETIME ONE Stop: 03/15/20 11:10 Last Admin: 03/15/20 11:15 Dose: 0.5 mg Documented by: Hydromorphone HCl (Dilaudid) 0.5 mg IVPUSH ONETIME ONE Stop: 03/15/20 13:39 Last Admin: 03/15/20 14:04 Dose: 0.5 mg Documented by: Hydromorphone HCl (Dilaudid) 1 mg IVPUSH Q2H PRN PRN Reason: Pain (severe 7-10) Last Admin: 03/16/20 09:43 Dose: 1 mg Documented by: Hydromorphone HCl (Dilaudid) 0.5 mg IVPUSH Q3H PRN PRN Reason: Pain Last Admin: 03/23/20 09:11 Dose: 0.5 mg Documented by: Sodium Chloride (Normal Saline) 1,000 mls @ 500 mls/hr IV ASDIRECTED [facility] Last Admin: 03/15/20 11:13 Dose: 500 mls/hr Documented by: Magnesium Sulfate (Magnesium Sulfate In Water Premix) 2 gm in 50 mls @ 25 mls/hr IV ONETIME ONE Stop: 03/15/20 12:43 Last Admin: 03/15/20 11:14 Dose: 25 mls/hr Documented by: Sodium Chloride (Normal Saline) 74 mls @ 3 mls/sec IV ASDIRECTED [facility] Stop: 03/15/20 11:31 Lactated Ringer's (Ringers, Lactated) 1,000 mls @ 0 mls/hr IV ASDIRECTED [facility] Last Admin: 03/16/20 09:48 Dose: 100 mls/hr Documented by: Magnesium Sulfate (Magnesium Sulfate In Water Premix) 2 gm in 50 mls @ 12.5 mls/hr IV Q6H [facility] Stop: 03/16/20 05:59 Last Admin: 03/16/20 02:41 Dose: 12.5 mls/hr Documented by: Fat Emulsion Intravenous (Intralipid 20%) 100 mls @ 8.3 mls/hr IV Q24H [facility] Last Admin: 03/16/20 16:01 Dose: 8.3 mls/hr Documented by: Multivitamins/Minerals 10 ml/Zinc 1 ml/ Amino Ac/Electrol/Dextrose/Calcium 1,011 mls @ 100 mls/hr IV .BY DURATION [facility] Last Admin: 03/16/20 12:07 Dose: 100 mls/hr Documented by: Amino Ac/Electrol/Dextrose/Calcium (Clinimix E 15) 1,000 mls @ 100 mls/hr IV .BY DURATION [facility] Last Admin: 03/16/20 21:55 Dose: 100 mls/hr Documented by: Meropenem 1 gm/ Sodium (Chloride) 100 mls @ 200 mls/hr IV Q8H [facility] Last Admin: 03/18/20 09:56 Dose: 200 mls/hr Documented by: Levofloxacin/Dextrose 750 mg/ (Premix) 150 mls @ 100 mls/hr IV Q24H [facility] Last Admin: 03/17/20 19:06 Dose: 100 mls/hr Documented by: Sodium Chloride (Normal Saline) 100 mls @ 3 mls/sec IV ASDIRECTED [facility] Last Admin: 03/16/20 19:31 Dose: 3 mls/sec Documented by: Vancomycin HCl 2 gm/ Sodium (Chloride) 500 mls @ 250 mls/hr IV ONETIME ONE Stop: 03/16/20 21:59 Last Admin: 03/16/20 22:41 Dose: 250 mls/hr Documented by: Vancomycin HCl 1 gm/ Sodium (Chloride) 250 mls @ 166.667 mls/hr IV Q12H [facility] Vancomycin HCl 1 gm/ Sodium (Chloride) 250 mls @ 165 mls/hr IV Q12H [facility] Last Admin: 03/18/20 10:47 Dose: 165 mls/hr Documented by: Sodium Chloride (Normal Saline) 1,000 mls @ 100 mls/hr IV ASDIRECTED [facility] Last Admin: 03/18/20 00:39 Dose: 100 mls/hr Documented by: Sodium Chloride (Normal Saline) 500 mls @ 500 mls/hr IV .BOLUS ONE Stop: 03/17/20 11:41 Last Admin: 03/17/20 10:56 Dose: 500 mls/hr Documented by: Lidocaine HCl (Xylocaine-Mpf 1%) Confirm Administered Dose 2 mls @ as directed .ROUTE .STK-MED ONE Stop: 03/17/20 11:04 Fat Emulsion Intravenous (Intralipid 20%) 100 mls @ 8.3 mls/hr IV Q24H [facility] Last Admin: 03/17/20 16:07 Dose: 8.3 mls/hr Documented by: Norepinephrine Bitartrate 4 mg (/ Dextrose/Water) 250 mls @ 7.5 mls/hr IV TITRATE [facility]; Protocol Last Titration: 03/19/20 22:00 Dose: 0 mcg/min, 0 mls/hr Documented by: Sodium Chloride (Normal Saline) 1,000 mls @ 500 mls/hr IV ASDIRECTED [facility] Stop: 03/17/20 18:46 Propofol (Diprivan 100 Ml) Confirm Administered Dose 100 mls @ as directed .ROUTE .STK-MED ONE Stop: 03/18/20 10:45 Last Admin: 03/18/20 11:54 Dose: Not Given Documented by: Levofloxacin/Dextrose 750 mg/ (Premix) 150 mls @ 100 mls/hr IV Q48H [facility] Last Admin: 03/21/20 17:42 Dose: 100 mls/hr Documented by: Meropenem 1 gm/ Sodium (Chloride) 100 mls @ 200 mls/hr IV Q12H [facility] Last Admin: 03/21/20 22:57 Dose: 200 mls/hr Documented by: Vancomycin HCl 1 gm/ Sodium (Chloride) 250 mls @ 167 mls/hr IV Q24H [facility] Last Admin: 03/19/20 11:27 Dose: 167 mls/hr Documented by: Acetaminophen 1,000 mg/ Premix 100 mls @ 400 mls/hr IV Q8H PRN PRN Reason: Fever Stop: 03/19/20 15:34 Last Admin: 03/19/20 07:48 Dose: 400 mls/hr Documented by: Acetaminophen 1,000 mg/ Premix 100 mls @ 400 mls/hr IV Q8H PRN PRN Reason: Fever Stop: 03/20/20 15:46 Magnesium Sulfate 2 gm/ Premix 50 mls @ 25 mls/hr IV Q6H [facility] Stop: 03/20/20 16:59 Last Admin: 03/20/20 14:35 Dose: 25 mls/hr Documented by: Ibuprofen (Motrin) 400 mg PO ONETIME ONE Stop: 03/17/20 13:01 Last Admin: 03/17/20 12:59 Dose: 400 mg Documented by: Iopamidol (Isovue-300 (61%)) 112 ml IV ONETIME ONE Stop: 03/15/20 11:17 Last Admin: 03/15/20 19:33 Dose: Not Given Documented by: Iopamidol (Isovue-370 (76%)) 100 ml IV . DIRECTED [facility] Last Admin: 03/16/20 19:31 Dose: 100 ml Documented by: Lactobacillus Rhamnosus (Culturelle) 1 cap PO BID [facility] Last Admin: 03/18/20 08:56 Dose: 1 cap Documented by: Lidocaine/Epinephrine (Xylocaine 1% With Epinephrine 1:100,000) Confirm Administered Dose 50 ml .ROUTE .STK-MED ONE Stop: 03/17/20 10:55 Last Admin: 03/17/20 11:30 Dose: 3.5 ml Documented by: Lorazepam (Ativan) 1 mg IVPUSH ONETIME ONE Stop: 03/15/20 11:31 Last Admin: 03/15/20 11:40 Dose: 1 mg Documented by: Lorazepam (Ativan) 0.5 mg IVPUSH Q4H PRN PRN Reason: Nausea/Vomiting Lorazepam (Ativan) 0.5 mg IVPUSH ONETIME ONE Stop: 03/18/20 06:38 Last Admin: 03/18/20 07:04 Dose: 0.5 mg Documented by: Midazolam HCl (Versed 1 Mg/Ml) Confirm Administered Dose 2 mg .ROUTE .STK-MED ONE Stop: 03/17/20 09:56 Non-Formulary Medication (Total Parenteral Nutrition, Central) 1,000 ml .XX .Continue Order [facility] Stop: 03/17/20 08:01 Non-Formulary Medication (Total Parenteral Nutrition, Central) 0 ml IV ONETIME [facility] Stop: 03/20/20 12:01 Non-Formulary Medication (Total Parenteral Nutrition, Central) 0 ml IV ONETIME [facility] Stop: 03/21/20 12:00 Oxycodone HCl (Oxycodone) 5 mg PO Q4H PRN PRN Reason: Pain Last Admin: 03/17/20 13:29 Dose: 5 mg Documented by: Pantoprazole Sodium (Protonix Iv) 40 mg IV Q12H [facility] Last Admin: 03/22/20 03:09 Dose: 40 mg Documented by: Propofol (Diprivan 20 Ml) Confirm Administered Dose 200 mg .ROUTE .STK-MED ONE Stop: 03/17/20 09:55 Propofol (Diprivan 20 Ml) Confirm Administered Dose 200 mg .ROUTE .STK-MED ONE Stop: 03/18/20 11:22 Sodium Chloride (Saline Flush) 10 ml FLUSH ASDIRECTED PRN PRN Reason: Keep Vein Open Last Admin: 03/15/20 10:11 Dose: 10 ml Documented by: Sodium Chloride (Saline Flush) 10 ml FLUSH ONETIME ONE Stop: 03/15/20 11:17 Last Admin: 03/16/20 19:31 Dose: 10 ml Documented by: Sodium Chloride (Normal Saline) 10 ml FLUSH ONETIME ONE Stop: 03/16/20 17:53 Last Admin: 03/16/20 20:53 Dose: Not Given Documented by: Succinylcholine Chloride (Quelicin) Confirm Administered Dose 200 mg .ROUTE .STK-MED ONE Stop: 03/18/20 11:22 Tizanidine HCl (Zanaflex) 4 mg PO Q6H PRN PRN Reason: muscle cramps Last Admin: 03/18/20 04:05 Dose: 4 mg Documented by: Vancomycin HCl (Vancomycin) 1 gm IV .PHARMACY TO DOSE [facility] Stop: 03/17/20 18:01 - Exam Quality Assessment: Supplemental Oxygen General: No Acute Distress, Sedated. No: Alert, Oriented HEENT: Pupils Equal Neck: Supple Lungs: Rhonchi (moderate diffuse). No: Normal Respiratory Effort (increased resp rate), Wheezing Cardiovascular: Regular Rate, Regular Rhythm GI/Abdominal Exam: Soft, No Distention, Tender (pt grimaces with palpation ), Hepatomegaly, Splenomegaly Extremities: No Pedal Edema. No: Increased Warmth Skin: Warm, Dry Psy/Mental Status: No: Alert, Agitated Sepsis Event Note - Evaluation Sepsis Screening Result: Severe Sepsis Risk - Focused Exam Vital Signs: Vital Signs Temp Pulse Resp BP Pulse Ox 03/23/20 09:00 78 52 H 134/62 98 03/23/20 08:00 74 23 H 157/83 H 98 03/23/20 07:00 36.3 C 75 21 H 107/49 L 98 03/23/20 06:00 78 24 H 120/55 L 99 03/23/20 05:00 79 25 H 123/56 L 97 03/23/20 04:00 36.7 C 75 22 H 111/52 L 98 03/23/20 03:00 81 23 H 126/59 L 03/23/20 02:00 92 132 H 120/66 100 03/23/20 01:00 88 20 140/55 L 100 03/23/20 00:00 36.3 C 78 25 H 129/62 99 03/22/20 23:00 79 25 H 129/58 L 99 03/22/20 22:00 79 27 H 115/56 L 97 - Problem List & Annotations (1) SBO (small bowel obstruction) SNOMED Code(s): 586660549 Code(s): K56.609 - UNSP INTESTNL OBST, UNSP TO PARTIAL VERSUS COMPLETE OBST Status: Acute Current Visit: Yes (2) Crohn's disease SNOMED Code(s): 05772300 Code(s): K50.90 - CROHN'S DISEASE, UNSPECIFIED, WITHOUT COMPLICATIONS Status: Chronic Current Visit: No Qualifiers: Gastrointestinal tract location: unspecified location Digestive disease complication type: other complication Qualified Code(s): K50.918 - Crohn's disease, unspecified, with other complication (3) Pancytopenia SNOMED Code(s): 510373529 Code(s): D61.818 - OTHER PANCYTOPENIA Status: Chronic Current Visit: No (4) CKD (chronic kidney disease), stage III SNOMED Code(s): 171679195 Code(s): N18.3 - CHRONIC KIDNEY DISEASE, STAGE 3 (MODERATE) * DO NOT USE * Status: Chronic Current Visit: No Qualifiers: Chronic kidney disease stage 3 subtype: stage 3a (GFR 45-59) Qualified Code(s): N18.31 - Chronic kidney disease, stage 3a (5) History of left nephrectomy SNOMED Code(s): 16243855650292 Code(s): Z90.5 - ACQUIRED ABSENCE OF KIDNEY Status: Chronic Current Visit: No - Problem List Review Problem List Initiated/Reviewed/Updated: Yes - My Orders Last 24 Hours: My Active Orders 03/23/20 09:13 Initiate/Renew Non-Violent Restraints (All Ages) Q24H 03/23/20 09:15 HYDROmorphone [Dilaudid] 0.5 mg IVPUSH Q2H PRN 03/23/20 09:22 LIPASE [CHEM] Urgent 03/23/20 09:23 Abdomen Pelvis wo Cont [CT] Routine 03/23/20 12:15 Insert Law Catheter [Insert Urinary Catheter] [OM.PC] Q24H 03/24/20 05:00 BLOOD GAS ARTERIAL [BG] Timed CBC W/O DIFF,HEMOGRAM [HEME] Timed (1) COMPREHENSIVE METABOLIC PN,CMP [CHEM] Timed - Plan Plan:: ASSESSMENT AND PLAN Bilateral pneumonia with septic shock-CT imaging gave appearance of septic emboli. Stable and needing minimal vent support. No longer needing norepinephrine. Still on broad-spectrum antibiotics. No new positive culture results. Chest x-ray is clearing. -Continue Pip/Tazo and vancomycin -Follow-up repeat cultures Hypoxic respiratory failure-secondary to bilateral pulmonary infiltrates. Resting and sedated respiratory rate slowly improving but quite tachypneic without sedation. She did not tolerate spontaneous breathing trial again this morning. -Mechanical ventilation -Spontaneous breathing trial in a.m. Small bowel obstruction-Long history of Crohn's disease with multiple abdominal surgeries and ileostomy. This seems to have resolved for the most part. -Symptomatic management of pain and nausea -Hold TPN -Surgical follow-up per Dr. Reno Elevated bilirubin, concern for cholangitis-US 03/21 showed some sludge and stones but no obvious cholecystitis. Bilirubin has risen further. Multiple medications were stopped on 03/22. -Discontinue Protonix, meropenem, and TPN -CT of the abdomen and pelvis -Gastroenterology consultation after the CT -Recheck labs in a.m. Pancytopenia, hypersplenism?-chronic, stable. This usually decompensates slightly when she gets sick or stressed. Hemoglobin stable since yesterday at 7.9 -Follow-up hemoglobin this afternoon and in a.m. -Transfuse hemoglobin less than 7 -Hold enoxaparin because of thrombocytopenia Stage III chronic kidney disease-history of left nephrectomy. Creatinine is moderately higher during her acute illness but has been stable for several days. Volume status appears appropriate. -Hold diuretic therapy today -Closely monitor urine output and renal function Maintenance issues - - DVT prophylaxis -SCDs - GI prophylaxis -Pepcid - Nutrition -n.p.o. - Law catheter -placed to closely monitor urine output Disposition -anticipate discharge home after the hospital stay. Patient may need to transfer to higher level of care. Rad Pedersen MD
--- NOTE | 2020-03-23 09:32 | US ---
Abdomen Comp CLINICAL HISTORY: Elevated bilirubin COMPARISON: CT 03/15/2020. TECHNIQUE: Real-time images were obtained through the right upper quadrant. FINDINGS: The liver is enlarged measuring over 22 cm in length. There is diffuse fatty infiltration. It is freely of mass or biliary dilatation. The gallbladder is 11 cm in length. There is some biliary sludge. There are some echogenic foci felt to represent small stones The common bile duct measures 7 mm. The spleen is moderately enlarged 26 cm in length The pancreas is partially obscured. The right kidney measures 14.1 x 7.0 x 5.4 cm. Cortical thickness is 1.2 cm. Left kidney has been removed.. The IVC is normal. There is no aortic aneurysm. No free fluid seen IMPRESSION: No significant hepatosplenomegaly Fatty infiltration of the liver Gallbladder is enlarged but similar to CT. There are stones and sludge Previous left nephrectomy
[2020-03-23] MEDS: OLANZapine 5 MG Tab PO SCH ×2 (09:42→21:10)
--- NOTE | 2020-03-23 10:56 | CR ---
CHEST: Portable 03/22/2020 at 4:03 AM CLINICAL HISTORY:Respiratory failure COMPARISON:03/21/2020 FINDINGS: Diffuse bilateral pulmonary infiltrates are similar to prior study. The basal lung markings are exaggerated by less than optimal inspiration. Endotracheal tube is in the midtrachea. There is a right subclavian central venous line. IMPRESSION: LESS than optimal inspiration exaggerates basilar lung markings Diffuse bilateral pneumonic infiltrates are felt to be similar to the prior day
--- NOTE | 2020-03-23 11:13 | CR ---
CHEST: Portable 03/23/2020 at 4:20 AM CLINICAL HISTORY:Respiratory failure, infiltrates COMPARISON:03/22/2020 FINDINGS: Endotracheal tube and right subcortical in catheter unchanged in position. There are diffuse bilateral pulmonary infiltrates. There may be a slight increase in the left lower lobe. This may be technical. IMPRESSION: Diffuse bilateral pulmonary infiltrates persist. There may be a slight increase in infiltrate in the left lower lobe.
--- NOTE | 2020-03-23 13:46 | CT ---
Abdomen Pelvis wo Cont CLINICAL HISTORY: Elevated bilirubin, cholangitis COMPARISON: CT 01/14/2020. Current ultrasound TECHNIQUE: Axial tomographic images are obtained from the dome of the diaphragm to the pubic symphysis without IV contrast enhancement. No oral contrast was used. The dosage reduction and iterative reconstruction techniques employed. FINDINGS: The lung bases show bilateral infiltrates and some patchy consolidation in the left lower lobe. There are multiple cavitary nodules in the lower lung xie bilaterally.. Some of these nodules were present on prior study but not cavitary. The liver is significantly enlarged. Mid clavicular length is 28 cm. This has increased since 03/15/2020 when it was 25 cm. There is no intrahepatic biliary dilatation. The gallbladder has decreased in size when compared to prior study. There is moderate density in the dependent portion. This may represent some previous vicarious excretion from previous contrast CT on 03/15/2020. There does appear to be some wall thickening some of this may be due to its relative contraction compared to the prior study. The spleen is also significantly enlarged. There is an ill-defined 3.5 x 3.3 x 4.9 cm low-attenuation focus in the lower anterior lateral portion. This is not identified on the prior CT or on current ultrasound. This could represent splenic infarct. There is free fluid in the pelvis. There is some stranding in the mesenteric fat in the low abdomen and pelvis. There appears to be some thickening of small bowel loops in the pelvis without significant dilatation. Patient has a colostomy site in the right mid the bowel loops just proximal to the ostomy site also appear thickened. This is a change since prior study. Abdomen. The pancreas shows no mass or inflammatory change. The adrenal glands appear normal. The left kidney has been removed. The aorta has a normal course and contour. There is no suspicious retroperitoneal adenopathy. IMPRESSION: Multiple small cavitary nodules throughout both lung xie new since prior study. These may represent septic emboli. Due to the relatively recent change, cavitary metastases are felt less likely. Atypical infection is not excluded. Significant hepatomegaly which appears to have increased slightly since the study of 03/15/2020. Previously seen gallbladder distention has diminished. There may be some mild gallbladder wall thickening. There is density within the gallbladder lumen which is likely from previous IV contrast injection and vicarious excretion. There also appears to be some debris. Thickened mid and lower abdominal small bowel with some mesenteric streaking and some lower abdominal ascites. This may represent an enteritis. This is new since prior study. Ill-defined low-attenuation area in the lower spleen which is significantly enlarged. This may represent splenic infarct. This was not obvious on prior CT or current ultrasound.
[2020-03-23] MEDS: Famotidine 20 MG/2 ML SDV IVPUSH SCH (15:37)
[2020-03-24] MEDS: propofoL 100 ML IV SCH ×4 (01:37→08:26)
[2020-03-24] MEDS: HYDROmorphone 0.5 MG/0.5 ML Syringe IVPUSH PRN ×4 (02:27→08:37)
[2020-03-24] MEDS: Piperacillin/Tazobactam/Dext 2.25 GM in Premix Bag 1 BAG IV SCH (04:36)
[2020-03-24] MEDS: OLANZapine 5 MG Tab PO SCH ×2 (08:40→21:15)
[2020-03-24] MEDS ORDERED: LORazepam 2 MG/ML SDV IVPUSH PRN (09:06)
--- NOTE | 2020-03-24 09:14 | PCM.PN ---
- General Info Date of Service: 03/24/20 Subjective Update: There were no acute events overnight. The patient has remained intubated and was sedated until earlier this morning. She is not able to provide any reliable history at this time. We did try a weaning trial with stable vital signs but we did see an increase in her respiratory rate as we have the last 3 days. She seems to be anxious leading to the increased respiratory rate. We did elect to extubate her given her stability with heart rate and blood pressure. She has had adequate oxygen saturations since that time. She is able to follow commands such as squeezing fingers, wiggling toes and coughing but otherwise is not able to have a conversation. She has not had any fevers. There are no new positive culture results. Functional Status: Reports: Other (intubated and still sedated) - Review of Systems General: Denies: Fever - Patient Data Vitals - Most Recent: Last Vital Signs Temp 35.9 C L 03/24/20 09:00 Pulse 76 03/24/20 09:00 Resp 35 H 03/24/20 09:00 BP 131/56 L 03/24/20 09:00 Pulse Ox 95 03/24/20 09:00 Weight - Most Recent: 79.742 kg I&O - Last 24 Hours: Intake & Output 03/23/20 03/24/20 03/24/20 22:59 06:59 14:59 Intake Total 833 923 250 Output Total 575 1150 Balance 258 -227 250 Lab Results Last 24 Hours: Laboratory Results - last 24 hr 03/20/20 03/23/20 03/23/20 Range/Units 05:00 09:22 11:35 WBC (4.5-11.0) K/uL RBC (3.30-5.50) M/uL Hgb (12.0-15.0) g/dL Hct (36.0-48.0) % MCV (80-98) fL MCH (27-31) pg MCHC (32-36) % Plt Count (150-400) K/uL Puncture Site ABG pH (7.350-7.450) ABG pCO2 (35.0-42.0) mmHg ABG pO2 (75.0-100.0) mmHg ABG HCO3 (22.0-26.0) mmol/L ABG Total CO2 (21.0-25.0) mmol/L ABG O2 Saturation (95.0-98.0) % ABG O2 Content (15.0-23.0) %vol ABG Base Excess mm/L ABG Hemoglobin (12.0-16.0) g/dL ABG Oxyhemoglobin % ABG Carboxyhemoglobin (0.0-1.6) % ABG Methemoglobin % O2 Delivery Device Oxygen Flow Rate L Sodium (140-148) mmol/L Potassium (3.6-5.2) mmol/L Chloride (100-108) mmol/L Carbon Dioxide (21-32) mmol/L Anion Gap (5.0-14.0) mmol/L BUN (7-18) mg/dL Creatinine (0.6-1.0) mg/dL Est Cr Clr Drug Dosing mL/min Estimated GFR (MDRD) (>60) Glucose (74-106) mg/dL Lactic Acid (0.4-2.0) mmol/L Calcium (8.5-10.1) mg/dL Total Bilirubin (0.2-1.0) mg/dL AST (15-37) U/L ALT (12-78) U/L Alkaline Phosphatase (46-116) U/L Total Protein (6.4-8.2) g/dL Albumin (3.4-5.0) g/dL Globulin (2.3-3.5) g/dL Albumin/Globulin Ratio (1.2-2.2) Lipase 244 (73-393) U/L Vancomycin Trough 19.6 (10.0-20.0) ug/mL Crossmatch See Detail 03/24/20 03/24/20 03/24/20 Range/Units 05:00 05:00 05:00 WBC 3.2 L (4.5-11.0) K/uL RBC 2.51 L (3.30-5.50) M/uL Hgb 7.8 L (12.0-15.0) g/dL Hct 24.2 L (36.0-48.0) % MCV 96 (80-98) fL MCH 31 (27-31) pg MCHC 32 (32-36) % Plt Count 120 L (150-400) K/uL Puncture Site Line ABG pH 7.379 (7.350-7.450) ABG pCO2 30.0 L (35.0-42.0) mmHg ABG pO2 116.0 H (75.0-100.0) mmHg ABG HCO3 17.3 L (22.0-26.0) mmol/L ABG Total CO2 16.6 L (21.0-25.0) mmol/L ABG O2 Saturation 98.5 H (95.0-98.0) % ABG O2 Content 9.9 L (15.0-23.0) %vol ABG Base Excess -6.7 mm/L ABG Hemoglobin 7.5 L (12.0-16.0) g/dL ABG Oxyhemoglobin 92.5 % ABG Carboxyhemoglobin 3.3 H (0.0-1.6) % ABG Methemoglobin 2.8 % O2 Delivery Device Ventilator Oxygen Flow Rate L Sodium 139 L (140-148) mmol/L Potassium 4.6 (3.6-5.2) mmol/L Chloride 108 (100-108) mmol/L Carbon Dioxide 19 L (21-32) mmol/L Anion Gap 16.6 H (5.0-14.0) mmol/L BUN 45 H (7-18) mg/dL Creatinine 1.5 H (0.6-1.0) mg/dL Est Cr Clr Drug Dosing 38.68 mL/min Estimated GFR (MDRD) 35 L (>60) Glucose 107 H (74-106) mg/dL Lactic Acid (0.4-2.0) mmol/L Calcium 7.3 L (8.5-10.1) mg/dL Total Bilirubin 13.2 H (0.2-1.0) mg/dL AST 100 H (15-37) U/L ALT 55 (12-78) U/L Alkaline Phosphatase 238 H (46-116) U/L Total Protein 6.6 (6.4-8.2) g/dL Albumin 1.3 L (3.4-5.0) g/dL Globulin 5.3 H (2.3-3.5) g/dL Albumin/Globulin Ratio 0.3 L (1.2-2.2) Lipase (73-393) U/L Vancomycin Trough (10.0-20.0) ug/mL Crossmatch 03/24/20 Range/Units 05:00 WBC (4.5-11.0) K/uL RBC (3.30-5.50) M/uL Hgb (12.0-15.0) g/dL Hct (36.0-48.0) % MCV (80-98) fL MCH (27-31) pg MCHC (32-36) % Plt Count (150-400) K/uL Puncture Site ABG pH (7.350-7.450) ABG pCO2 (35.0-42.0) mmHg ABG pO2 (75.0-100.0) mmHg ABG HCO3 (22.0-26.0) mmol/L ABG Total CO2 (21.0-25.0) mmol/L ABG O2 Saturation (95.0-98.0) % ABG O2 Content (15.0-23.0) %vol ABG Base Excess mm/L ABG Hemoglobin (12.0-16.0) g/dL ABG Oxyhemoglobin % ABG Carboxyhemoglobin (0.0-1.6) % ABG Methemoglobin % O2 Delivery Device Oxygen Flow Rate L Sodium (140-148) mmol/L Potassium (3.6-5.2) mmol/L Chloride (100-108) mmol/L Carbon Dioxide (21-32) mmol/L Anion Gap (5.0-14.0) mmol/L BUN (7-18) mg/dL Creatinine (0.6-1.0) mg/dL Est Cr Clr Drug Dosing mL/min Estimated GFR (MDRD) (>60) Glucose (74-106) mg/dL Lactic Acid 0.7 (0.4-2.0) mmol/L Calcium (8.5-10.1) mg/dL Total Bilirubin (0.2-1.0) mg/dL AST (15-37) U/L ALT (12-78) U/L Alkaline Phosphatase (46-116) U/L Total Protein (6.4-8.2) g/dL Albumin (3.4-5.0) g/dL Globulin (2.3-3.5) g/dL Albumin/Globulin Ratio (1.2-2.2) Lipase (73-393) U/L Vancomycin Trough (10.0-20.0) ug/mL Crossmatch Eliud Results Last 24 Hours: Microbiology 03/18/20 06:20 Aerobic Blood Culture - Final Blood - Artery NO GROWTH AFTER 5 DAYS Anaerobic Blood Culture - Final NO GROWTH AFTER 5 DAYS 03/18/20 05:56 Aerobic Blood Culture - Final Blood - Picc Line NO GROWTH AFTER 5 DAYS Anaerobic Blood Culture - Final NO GROWTH AFTER 5 DAYS Med Orders - Current: Current Medications Duloxetine HCl (Cymbalta) 60 mg PO DAILY [facility] Last Admin: 03/21/20 09:08 Dose: Not Given Documented by: Famotidine (Pepcid) 20 mg IVPUSH Q24H [facility] Last Admin: 03/23/20 15:37 Dose: 20 mg Documented by: Hydromorphone HCl (Dilaudid) 1 mg IVPUSH Q2H PRN PRN Reason: Pain Multivitamins/Minerals 10 ml/Zinc 1 ml/ Amino Ac/Electrol/Dextrose/Calcium 1,011 mls @ 100 mls/hr IV .BY DURATION [facility] Last Admin: 03/21/20 11:19 Dose: 100 mls/hr Documented by: Amino Ac/Electrol/Dextrose/Calcium (Clinimix E 08/22) 1,000 mls @ 100 mls/hr IV .BY DURATION [facility] Last Admin: 03/22/20 06:03 Dose: 100 mls/hr Documented by: Propofol (Diprivan 100 Ml) 100 mls @ 2.28 mls/hr IV TITRATE [facility]; Protocol Last Titration: 03/24/20 09:06 Dose: 0 mcg/kg/min, 0 mls/hr Documented by: Heparin Sodium (Porcine) 5,000 (units/ Sodium Chloride) 501 mls @ 1 mls/hr IV ASDIRECTED [facility] Last Admin: 03/21/20 12:04 Dose: 1 mls/hr Documented by: Piperacillin/Tazobactam/ (Dextrose 2.25 gm/ Premix) 50 mls @ 100 mls/hr IV Q6H [facility] Last Admin: 03/24/20 04:36 Dose: 100 mls/hr Documented by: Vancomycin HCl 1 gm/ Sodium (Chloride) 250 mls @ 167 mls/hr IV Q18H [facility] Last Admin: 03/24/20 07:56 Dose: 167 mls/hr Documented by: Imipramine HCl (Imipramine Hcl) 200 mg PO BEDTIME [facility] Last Admin: 03/23/20 21:10 Dose: Not Given Documented by: Lorazepam (Ativan) 0.5 mg IVPUSH Q2H PRN PRN Reason: Anxiety Olanzapine (Zyprexa) 5 mg PO BID [facility] Last Admin: 03/24/20 08:40 Dose: Not Given Documented by: Ondansetron HCl (Zofran) 4 mg IV Q6H PRN PRN Reason: Nausea/Vomiting Last Admin: 03/23/20 01:58 Dose: 4 mg Documented by: Ondansetron HCl (Zofran Odt) 4 mg PO Q6H PRN PRN Reason: Nausea able to take PO Discontinued Medications Acetaminophen (Tylenol Extra Strength) 1,000 mg PO ONETIME ONE Stop: 03/15/20 11:16 Last Admin: 03/15/20 11:26 Dose: 1,000 mg Documented by: Acetaminophen (Tylenol) 650 mg PO Q4H PRN PRN Reason: Pain (Mild 1-3)/fever Last Admin: 03/17/20 19:56 Dose: 650 mg Documented by: Bupivacaine HCl (Marcaine 0.5%) Confirm Administered Dose 50 ml .ROUTE .STK-MED ONE Stop: 03/17/20 10:55 Last Admin: 03/17/20 11:30 Dose: 3.5 ml Documented by: Enoxaparin Sodium (Lovenox) 40 mg SUBCUT Q24H [facility] Last Admin: 03/17/20 16:05 Dose: 40 mg Documented by: Fentanyl (Sublimaze) Confirm Administered Dose 100 mcg .ROUTE .STK-MED ONE Stop: 03/17/20 09:55 Furosemide (Lasix) 40 mg IVPUSH NOW ONE Stop: 03/19/20 13:01 Last Admin: 03/19/20 13:40 Dose: 40 mg Documented by: Furosemide (Lasix) 40 mg IVPUSH NOW ONE Stop: 03/20/20 08:21 Last Admin: 03/20/20 08:36 Dose: 40 mg Documented by: Furosemide (Lasix) 40 mg IVPUSH NOW ONE Stop: 03/20/20 21:01 Last Admin: 03/20/20 22:16 Dose: 40 mg Documented by: Furosemide (Lasix) 40 mg IVPUSH NOW ONE Stop: 03/22/20 09:01 Last Admin: 03/22/20 08:30 Dose: 40 mg Documented by: Heparin Sodium (Porcine) (Heparin Lock Flush 100 Units/Ml) Confirm Administered Dose 500 units .ROUTE .STK-MED ONE Stop: 03/17/20 10:55 Last Admin: 03/17/20 11:40 Dose: 500 units Documented by: Heparin Sodium (Porcine) (Heparin Sodium) Confirm Administered Dose 5,000 units .ROUTE .STK-MED ONE Stop: 03/18/20 10:59 Last Admin: 03/18/20 11:54 Dose: Not Given Documented by: Hydromorphone HCl (Dilaudid) 0.5 mg IVPUSH ONETIME ONE Stop: 03/15/20 10:00 Last Admin: 03/15/20 10:10 Dose: 0.5 mg Documented by: Hydromorphone HCl (Dilaudid) 0.5 mg IVPUSH ONETIME ONE Stop: 03/15/20 11:10 Last Admin: 03/15/20 11:15 Dose: 0.5 mg Documented by: Hydromorphone HCl (Dilaudid) 0.5 mg IVPUSH ONETIME ONE Stop: 03/15/20 13:39 Last Admin: 03/15/20 14:04 Dose: 0.5 mg Documented by: Hydromorphone HCl (Dilaudid) 1 mg IVPUSH Q2H PRN PRN Reason: Pain (severe 7-10) Last Admin: 03/16/20 09:43 Dose: 1 mg Documented by: Hydromorphone HCl (Dilaudid) 0.5 mg IVPUSH Q3H PRN PRN Reason: Pain Last Admin: 03/23/20 09:11 Dose: 0.5 mg Documented by: Hydromorphone HCl (Dilaudid) 0.5 mg IVPUSH Q2H PRN PRN Reason: Pain Last Admin: 03/24/20 08:37 Dose: 0.5 mg Documented by: Sodium Chloride (Normal Saline) 1,000 mls @ 500 mls/hr IV ASDIRECTED [facility] Last Admin: 03/15/20 11:13 Dose: 500 mls/hr Documented by: Magnesium Sulfate (Magnesium Sulfate In Water Premix) 2 gm in 50 mls @ 25 mls/h r IV ONETIME ONE Stop: 03/15/20 12:43 Last Admin: 03/15/20 11:14 Dose: 25 mls/hr Documented by: Sodium Chloride (Normal Saline) 74 mls @ 3 mls/sec IV ASDIRECTED [facility] Stop: 03/15/20 11:31 Lactated Ringer's (Ringers, Lactated) 1,000 mls @ 0 mls/hr IV ASDIRECTED [facility] Last Admin: 03/16/20 09:48 Dose: 100 mls/hr Documented by: Magnesium Sulfate (Magnesium Sulfate In Water Premix) 2 gm in 50 mls @ 12.5 mls/hr IV Q6H [facility] Stop: 03/16/20 05:59 Last Admin: 03/16/20 02:41 Dose: 12.5 mls/hr Documented by: Fat Emulsion Intravenous (Intralipid 20%) 100 mls @ 8.3 mls/hr IV Q24H [facility] Last Admin: 03/16/20 16:01 Dose: 8.3 mls/hr Documented by: Multivitamins/Minerals 10 ml/Zinc 1 ml/ Amino Ac/Electrol/Dextrose/Calcium 1,011 mls @ 100 mls/hr IV .BY DURATION [facility] Last Admin: 03/16/20 12:07 Dose: 100 mls/hr Documented by: Amino Ac/Electrol/Dextrose/Calcium (Clinimix E 515) 1,000 mls @ 100 mls/hr IV .BY DURATION [facility] Last Admin: 03/16/20 21:55 Dose: 100 mls/hr Documented by: Meropenem 1 gm/ Sodium (Chloride) 100 mls @ 200 mls/hr IV Q8H [facility] Last Admin: 03/18/20 09:56 Dose: 200 mls/hr Documented by: Levofloxacin/Dextrose 750 mg/ (Premix) 150 mls @ 100 mls/hr IV Q24H [facility] Last Admin: 03/17/20 19:06 Dose: 100 mls/hr Documented by: Sodium Chloride (Normal Saline) 100 mls @ 3 mls/sec IV ASDIRECTED [facility] Last Admin: 03/16/20 19:31 Dose: 3 mls/sec Documented by: Vancomycin HCl 2 gm/ Sodium (Chloride) 500 mls @ 250 mls/hr IV ONETIME ONE Stop: 03/16/20 21:59 Last Admin: 03/16/20 22:41 Dose: 250 mls/hr Documented by: Vancomycin HCl 1 gm/ Sodium (Chloride) 250 mls @ 166.667 mls/hr IV Q12H [facility] Vancomycin HCl 1 gm/ Sodium (Chloride) 250 mls @ 165 mls/hr IV Q12H [facility] Last Admin: 03/18/20 10:47 Dose: 165 mls/hr Documented by: Sodium Chloride (Normal Saline) 1,000 mls @ 100 mls/hr IV ASDIRECTED [facility] Last Admin: 03/18/20 00:39 Dose: 100 mls/hr Documented by: Sodium Chloride (Normal Saline) 500 mls @ 500 mls/hr IV .BOLUS ONE Stop: 03/17/20 11:41 Last Admin: 03/17/20 10:56 Dose: 500 mls/hr Documented by: Lidocaine HCl (Xylocaine-Mpf 1%) Confirm Administered Dose 2 mls @ as directed .ROUTE .STK-MED ONE Stop: 03/17/20 11:04 Fat Emulsion Intravenous (Intralipid 20%) 100 mls @ 8.3 mls/hr IV Q24H [facility] Last Admin: 03/17/20 16:07 Dose: 8.3 mls/hr Documented by: Norepinephrine Bitartrate 4 mg (/ Dextrose/Water) 250 mls @ 7.5 mls/hr IV TITRATE [facility]; Protocol Last Titration: 03/19/20 22:00 Dose: 0 mcg/min, 0 mls/hr Documented by: Sodium Chloride (Normal Saline) 1,000 mls @ 500 mls/hr IV ASDIRECTED [facility] Stop: 03/17/20 18:46 Propofol (Diprivan 100 Ml) Confirm Administered Dose 100 mls @ as directed .ROUTE .STK-MED ONE Stop: 03/18/20 10:45 Last Admin: 03/18/20 11:54 Dose: Not Given Documented by: Levofloxacin/Dextrose 750 mg/ (Premix) 150 mls @ 100 mls/hr IV Q48H [facility] Last Admin: 03/21/20 17:42 Dose: 100 mls/hr Documented by: Meropenem 1 gm/ Sodium (Chloride) 100 mls @ 200 mls/hr IV Q12H [facility] Last Admin: 03/21/20 22:57 Dose: 200 mls/hr Documented by: Vancomycin HCl 1 gm/ Sodium (Chloride) 250 mls @ 167 mls/hr IV Q24H [facility] Last Admin: 03/19/20 11:27 Dose: 167 mls/hr Documented by: Acetaminophen 1,000 mg/ Premix 100 mls @ 400 mls/hr IV Q8H PRN PRN Reason: Fever Stop: 03/19/20 15:34 Last Admin: 03/19/20 07:48 Dose: 400 mls/hr Documented by: Acetaminophen 1,000 mg/ Premix 100 mls @ 400 mls/hr IV Q8H PRN PRN Reason: Fever Stop: 03/20/20 15:46 Magnesium Sulfate 2 gm/ Premix 50 mls @ 25 mls/hr IV Q6H [facility] Stop: 03/20/20 16:59 Last Admin: 03/20/20 14:35 Dose: 25 mls/hr Documented by: Vancomycin HCl 1 gm/ Sodium (Chloride) 250 mls @ 167 mls/hr IV Q18H [facility] Last Admin: 03/22/20 17:17 Dose: 167 mls/hr Documented by: Ibuprofen (Motrin) 400 mg PO ONETIME ONE Stop: 03/17/20 13:01 Last Admin: 03/17/20 12:59 Dose: 400 mg Documented by: Iopamidol (Isovue-300 (61%)) 112 ml IV ONETIME ONE Stop: 03/15/20 11:17 Last Admin: 03/15/20 19:33 Dose: Not Given Documented by: Iopamidol (Isovue-370 (76%)) 100 ml IV . DIRECTED [facility] Last Admin: 03/16/20 19:31 Dose: 100 ml Documented by: Lactobacillus Rhamnosus (Culturelle) 1 cap PO BID [facility] Last Admin: 03/18/20 08:56 Dose: 1 cap Documented by: Lidocaine/Epinephrine (Xylocaine 1% With Epinephrine 1:100,000) Confirm Administered Dose 50 ml .ROUTE .STK-MED ONE Stop: 03/17/20 10:55 Last Admin: 03/17/20 11:30 Dose: 3.5 ml Documented by: Lorazepam (Ativan) 1 mg IVPUSH ONETIME ONE Stop: 03/15/20 11:31 Last Admin: 03/15/20 11:40 Dose: 1 mg Documented by: Lorazepam (Ativan) 0.5 mg IVPUSH Q4H PRN PRN Reason: Nausea/Vomiting Lorazepam (Ativan) 0.5 mg IVPUSH ONETIME ONE Stop: 03/18/20 06:38 Last Admin: 03/18/20 07:04 Dose: 0.5 mg Documented by: Midazolam HCl (Versed 1 Mg/Ml) Confirm Administered Dose 2 mg .ROUTE .STK-MED ONE Stop: 03/17/20 09:56 Non-Formulary Medication (Total Parenteral Nutrition, Central) 1,000 ml .XX .Continue Order [facility] Stop: 03/17/20 08:01 Non-Formulary Medication (Total Parenteral Nutrition, Central) 0 ml IV ONETIME [facility] Stop: 03/20/20 12:01 Non-Formulary Medication (Total Parenteral Nutrition, Central) 0 ml IV ONETIME [facility] Stop: 03/21/20 12:00 Oxycodone HCl (Oxycodone) 5 mg PO Q4H PRN PRN Reason: Pain Last Admin: 03/17/20 13:29 Dose: 5 mg Documented by: Pantoprazole Sodium (Protonix Iv) 40 mg IV Q12H [facility] Last Admin: 03/22/20 03:09 Dose: 40 mg Documented by: Propofol (Diprivan 20 Ml) Confirm Administered Dose 200 mg .ROUTE .STK-MED ONE Stop: 03/17/20 09:55 Propofol (Diprivan 20 Ml) Confirm Administered Dose 200 mg .ROUTE .STK-MED ONE Stop: 03/18/20 11:22 Sodium Chloride (Saline Flush) 10 ml FLUSH ASDIRECTED PRN PRN Reason: Keep Vein Open Last Admin: 03/15/20 10:11 Dose: 10 ml Documented by: Sodium Chloride (Saline Flush) 10 ml FLUSH ONETIME ONE Stop: 03/15/20 11:17 Last Admin: 03/16/20 19:31 Dose: 10 ml Documented by: Sodium Chloride (Normal Saline) 10 ml FLUSH ONETIME ONE Stop: 03/16/20 17:53 Last Admin: 03/16/20 20:53 Dose: Not Given Documented by: Succinylcholine Chloride (Quelicin) Confirm Administered Dose 200 mg .ROUTE .STK-MED ONE Stop: 03/18/20 11:22 Tizanidine HCl (Zanaflex) 4 mg PO Q6H PRN PRN Reason: muscle cramps Last Admin: 03/18/20 04:05 Dose: 4 mg Documented by: Vancomycin HCl (Vancomycin) 1 gm IV .PHARMACY TO DOSE [facility] Stop: 03/17/20 18:01 - Exam Quality Assessment: Supplemental Oxygen General: No Acute Distress, Sedated. No: Alert HEENT: Pupils Equal Lungs: Clear to Auscultation, Normal Respiratory Effort Cardiovascular: Regular Rate, Regular Rhythm GI/Abdominal Exam: Soft, No Distention. No: Normal Bowel Sounds (hypoactive) Extremities: No Pedal Edema. No: Increased Warmth Peripheral Pulses: 2+: Dorsalis Pedis (L), Dorsalis Pedis (R) Skin: Warm, Dry, Other (jaundice ) Psy/Mental Status: No: Alert, Agitated Sepsis Event Note - Evaluation Sepsis Screening Result: Severe Sepsis Risk - Focused Exam Vital Signs: Vital Signs Temp Pulse Resp BP Pulse Ox 03/24/20 09:00 35.9 C L 76 35 H 131/56 L 95 03/24/20 08:00 75 26 H 125/55 L 94 L 03/24/20 07:00 36.0 C L 77 25 H 112/49 L 97 03/24/20 06:00 36.1 C 23 H 125/54 L 97 03/24/20 05:00 22 H 120/51 L 97 03/24/20 04:00 36.3 C 21 H 122/56 L 97 03/24/20 03:00 20 138/61 98 03/24/20 02:00 36.0 C L 74 23 H 125/62 98 03/24/20 01:00 21 H 108/50 L 98 03/24/20 00:00 35.9 C L 22 H 128/55 L 98 03/23/20 23:00 23 H 133/65 98 03/23/20 22:00 36.1 C 24 H 119/61 98 - Problem List & Annotations (1) SBO (small bowel obstruction) SNOMED Code(s): 357175314 Code(s): K56.609 - UNSP INTESTNL OBST, UNSP TO PARTIAL VERSUS COMPLETE OBST Status: Acute Current Visit: Yes (2) Crohn's disease SNOMED Code(s): 06930589 Code(s): K50.90 - CROHN'S DISEASE, UNSPECIFIED, WITHOUT COMPLICATIONS Status: Chronic Current Visit: No Qualifiers: Gastrointestinal tract location: unspecified location Digestive disease complication type: other complication Qualified Code(s): K50.918 - Crohn's disease, unspecified, with other complication (3) Pancytopenia SNOMED Code(s): 372558649 Code(s): D61.818 - OTHER PANCYTOPENIA Status: Chronic Current Visit: No (4) CKD (chronic kidney disease), stage III SNOMED Code(s): 353670959 Code(s): N18.3 - CHRONIC KIDNEY DISEASE, STAGE 3 (MODERATE) * DO NOT USE * Status: Chronic Current Visit: No Qualifiers: Chronic kidney disease stage 3 subtype: stage 3a (GFR 45-59) Qualified Code(s): N18.31 - Chronic kidney disease, stage 3a (5) History of left nephrectomy SNOMED Code(s): 39840397317097 Code(s): Z90.5 - ACQUIRED ABSENCE OF KIDNEY Status: Chronic Current Visit: No - Problem List Review Problem List Initiated/Reviewed/Updated: Yes - My Orders Last 24 Hours: My Active Orders 03/24/20 09:06 LORazepam [Ativan] 0.5 mg IVPUSH Q2H PRN 03/24/20 09:07 Initiate/Renew Non-Violent Restraints (All Ages) Q24H 03/24/20 09:15 HYDROmorphone [Dilaudid] 1 mg IVPUSH Q2H PRN 03/24/20 12:15 Insert Law Catheter [Insert Urinary Catheter] [OM.PC] Q24H 03/25/20 05:00 CBC W/O DIFF,HEMOGRAM [HEME] Timed (1) COMPREHENSIVE METABOLIC PN,CMP [CHEM] Timed - Plan Plan:: ASSESSMENT AND PLAN Bilateral pneumonia with septic shock-CT imaging gave appearance of septic emboli. Chest x-ray clearing. Successfully extubated this morning and stable with supplemental oxygen. Only positive culture so far has been Enterococcus. -Change antibiotics to ampicillin/sulbactam -Follow-up repeat cultures Hypoxic respiratory failure-secondary to bilateral pulmonary infiltrates. Stable so far since extubation other than her agitated delirium. -Supplement oxygen as indicated Mixed delirium-periods of agitation as well as somnolence following extubation. I suspect this is mostly related to persistence of sedating medications with contribution from ICU delirium. I would anticipate that this should improve over time. She has been without her psychiatric meds for several days. -IM olanzapine x1 -Restart home meds as able -Lorazepam for significant agitation -Consider additional antipsychotics as needed Small bowel obstruction-Long history of Crohn's disease with multiple abdominal surgeries and ileostomy. This seems to have resolved for the most part. -Symptomatic management of pain and nausea -Hold TPN -Surgical follow-up per Dr. Reno Elevated bilirubin, concern for cholangitis-US 03/21 showed some sludge and stones but no obvious cholecystitis. CT scan yesterday did not show acute pathology or evidence for obstruction. Bilirubin slightly better today. -Discontinue Protonix, meropenem, and TPN -Gastroenterology consultation if she does not continue to improve further -Recheck labs in a.m. Pancytopenia, hypersplenism?-chronic, stable. Stable so far. -Follow-up hemoglobin in a.m. -Transfuse hemoglobin less than 7 -Hold enoxaparin because of thrombocytopenia Stage III chronic kidney disease-history of left nephrectomy. Creatinine stable. Volume status appropriate. -Hold diuretic therapy today -Closely monitor urine output and renal function Maintenance issues - - DVT prophylaxis -SCDs - GI prophylaxis -Pepcid - Nutrition -n.p.o. - Law catheter -placed for strict intake and output monitoring with critical patient Disposition -anticipate discharge home after the hospital stay. Patient may need to transfer to higher level of care. Rad Pedersen MD
--- NOTE | 2020-03-24 09:29 | CR ---
CHEST: Portable 03/24/2020 at 5:36 AM CLINICAL HISTORY:Respiratory failure COMPARISON:03/23/2020 FINDINGS: Endotracheal tube remains in the midtrachea. Right subclavian catheter is unchanged position. Diffuse bilateral infiltrates persist. There is scattered nodularity which is better seen on CT. Impression: Persistent bilateral pulmonary infiltrates similar to prior study. There is some scattered vague nodularity which is partially obscured by infiltrate.
--- NOTE | 2020-03-24 09:33 | OR ---
DATE OF PROCEDURE: 03/23/2020 SURGEON: Shamar Reno MD The patient remains ventilated and with some renal insufficiency. Bilirubin remains fairly high at 14. CT scan was obtained earlier today which showed an enlarged liver, no significant biliary dilatation, and the gallbladder appeared to be somewhat less distended than previously. We were asked to see the patient regarding elevated bilirubin issue. This appeared to be probably not related to the acute cholecystitis or biliary obstruction, presented with more of a medical related liver problem and probable multiple organ failure type pattern. We will continue to follow the patient. Shamar Reno MD /[id number]
[2020-03-24] MEDS: Ampicillin/Sulbactam Na 1.5 GM in Sodium Chloride 0.9% 50 ML IV SCH ×3 (09:39→21:15)
[2020-03-24] MEDS ORDERED: Acetaminophen 650 MG Supp RECTAL PRN (10:46)
[2020-03-24] MEDS ORDERED: OLANZapine 10 MG Vial IM ONE (11:00)
[2020-03-24] MEDS: HYDROmorphone 1 MG/ML Syringe IVPUSH PRN ×5 (13:10→23:15)
[2020-03-24] MEDS: Famotidine 20 MG/2 ML SDV IVPUSH SCH (16:04)
[2020-03-25] MEDS: HYDROmorphone 1 MG/ML Syringe IVPUSH PRN ×5 (01:15→21:25)
[2020-03-25] MEDS: Ampicillin/Sulbactam Na 1.5 GM in Sodium Chloride 0.9% 50 ML IV SCH ×4 (03:17→21:29)
[2020-03-25] MEDS: OLANZapine 5 MG Tab PO SCH ×2 (08:10→21:27)
--- NOTE | 2020-03-25 09:26 | PCM.PN ---
- General Info Date of Service: 03/25/20 Subjective Update: There were no acute events overnight following extubation yesterday morning. Vital signs were stable. Oxygenation was stable with 2 L of supplemental oxygen. Patient is more alert and interactive today though not back to baseline. She is slightly confused and a little bit lethargic but overall doing well. She does not feel short of breath and has not been coughing. She reports only mild abdominal pain this morning. She has had some sips of liquid and tolerated these without any difficulty. No fevers. Bilirubin is down to 8 today. Functional Status: Reports: Pain Controlled - Review of Systems General: Reports: Weakness. Denies: Fever Neurological: Reports: Confusion - Patient Data Vitals - Most Recent: Last Vital Signs Temp 36.1 C 03/25/20 07:00 Pulse 78 03/25/20 08:00 Resp 22 H 03/25/20 08:00 BP 166/86 H 03/25/20 08:00 Pulse Ox 100 03/25/20 07:00 Weight - Most Recent: 76.4 kg I&O - Last 24 Hours: Intake & Output 03/24/20 03/25/20 03/25/20 22:59 06:59 14:59 Intake Total 347 Output Total 450 1225 Balance -450 -878 Lab Results Last 24 Hours: Laboratory Results - last 24 hr 03/24/20 03/25/20 03/25/20 Range/Units 11:45 04:19 04:19 WBC 3.5 L (4.5-11.0) K/uL RBC 2.61 L (3.30-5.50) M/uL Hgb 7.5 L (12.0-15.0) g/dL Hct 24.9 L (36.0-48.0) % MCV 95 (80-98) fL MCH 29 (27-31) pg MCHC 30 L (32-36) % Plt Count 145 L (150-400) K/uL Puncture Site A-line ABG pH 7.430 (7.350-7.450) ABG pCO2 23.5 L (35.0-42.0) mmHg ABG pO2 75.3 (75.0-100.0) mmHg ABG HCO3 15.3 L (22.0-26.0) mmol/L ABG Total CO2 14.5 L (21.0-25.0) mmol/L ABG O2 Saturation 95.8 (95.0-98.0) % ABG O2 Content 10.3 L (15.0-23.0) %vol ABG Base Excess -7.7 mm/L ABG Hemoglobin 8.1 L (12.0-16.0) g/dL ABG Oxyhemoglobin 89.8 % ABG Carboxyhemoglobin 3.8 H (0.0-1.6) % ABG Methemoglobin 2.5 % César Test A-line O2 Delivery Device Nasal cannula Oxygen Flow Rate 2.0 L Sodium 144 (140-148) mmol/L Potassium 4.5 (3.6-5.2) mmol/L Chloride 112 H (100-108) mmol/L Carbon Dioxide 20 L (21-32) mmol/L Anion Gap 16.5 H (5.0-14.0) mmol/L BUN 37 H (7-18) mg/dL Creatinine 1.4 H (0.6-1.0) mg/dL Est Cr Clr Drug Dosing 41.45 mL/min Estimated GFR (MDRD) 38 L (>60) Glucose 92 (74-106) mg/dL Calcium 7.8 L (8.5-10.1) mg/dL Total Bilirubin 8.8 H (0.2-1.0) mg/dL AST 55 H (15-37) U/L ALT 31 (12-78) U/L Alkaline Phosphatase 211 H (46-116) U/L Ammonia (11-32) mmol/L Total Protein 7.0 (6.4-8.2) g/dL Albumin 1.5 L (3.4-5.0) g/dL Globulin 5.5 H (2.3-3.5) g/dL Albumin/Globulin Ratio 0.3 L (1.2-2.2) 03/25/20 Range/Units 04:19 WBC (4.5-11.0) K/uL RBC (3.30-5.50) M/uL Hgb (12.0-15.0) g/dL Hct (36.0-48.0) % MCV (80-98) fL MCH (27-31) pg MCHC (32-36) % Plt Count (150-400) K/uL Puncture Site ABG pH (7.350-7.450) ABG pCO2 (35.0-42.0) mmHg ABG pO2 (75.0-100.0) mmHg ABG HCO3 (22.0-26.0) mmol/L ABG Total CO2 (21.0-25.0) mmol/L ABG O2 Saturation (95.0-98.0) % ABG O2 Content (15.0-23.0) %vol ABG Base Excess mm/L ABG Hemoglobin (12.0-16.0) g/dL ABG Oxyhemoglobin % ABG Carboxyhemoglobin (0.0-1.6) % ABG Methemoglobin % César Test O2 Delivery Device Oxygen Flow Rate L Sodium (140-148) mmol/L Potassium (3.6-5.2) mmol/L Chloride (100-108) mmol/L Carbon Dioxide (21-32) mmol/L Anion Gap (5.0-14.0) mmol/L BUN (7-18) mg/dL Creatinine (0.6-1.0) mg/dL Est Cr Clr Drug Dosing mL/min Estimated GFR (MDRD) (>60) Glucose (74-106) mg/dL Calcium (8.5-10.1) mg/dL Total Bilirubin (0.2-1.0) mg/dL AST (15-37) U/L ALT (12-78) U/L Alkaline Phosphatase (46-116) U/L Ammonia 12 (11-32) mmol/L Total Protein (6.4-8.2) g/dL Albumin (3.4-5.0) g/dL Globulin (2.3-3.5) g/dL Albumin/Globulin Ratio (1.2-2.2) Med Orders - Current: Current Medications Acetaminophen (Tylenol) 650 mg RECTAL Q4H PRN PRN Reason: Fever Duloxetine HCl (Cymbalta) 60 mg PO DAILY [facility] Famotidine (Pepcid) 20 mg PO BEDTIME [facility] Heparin Sodium (Porcine) (Heparin Lock Flush 100 Units/Ml) 500 units FLUSH ASDIRECTED PRN PRN Reason: IV Use Last Admin: 03/25/20 08:04 Dose: 500 units Documented by: Hydromorphone HCl (Dilaudid) 1 mg IVPUSH Q2H PRN PRN Reason: Pain Last Admin: 03/25/20 08:04 Dose: 1 mg Documented by: Hydromorphone HCl (Dilaudid) 2 - 4 mg PO Q3H PRN PRN Reason: Pain Multivitamins/Minerals 10 ml/Zinc 1 ml/ Amino Ac/Electrol/Dextrose/Calcium 1,011 mls @ 100 mls/hr IV .BY DURATION [facility] Last Admin: 03/21/20 11:19 Dose: 100 mls/hr Documented by: Amino Ac/Electrol/Dextrose/Calcium (Clinimix E /15) 1,000 mls @ 100 mls/hr IV .BY DURATION [facility] Last Admin: 03/22/20 06:03 Dose: 100 mls/hr Documented by: Ampicillin Sodium/Sulbactam (Sodium 1.5 gm/ Sodium Chloride) 50 mls @ 100 mls/hr IV Q6H [facility] Last Admin: 03/25/20 03:17 Dose: 100 mls/hr Documented by: Imipramine HCl (Imipramine Hcl) 200 mg PO BEDTIME [facility] Last Admin: 03/24/20 21:14 Dose: 200 mg Documented by: Lorazepam (Ativan) 0.5 mg IVPUSH Q2H PRN PRN Reason: Anxiety Last Admin: 03/24/20 09:36 Dose: 0.5 mg Documented by: Lorazepam (Ativan) 0.5 mg PO Q4H PRN PRN Reason: Anxiety Olanzapine (Zyprexa) 5 mg PO BID [facility] Last Admin: 03/25/20 08:10 Dose: 5 mg Documented by: Ondansetron HCl (Zofran) 4 mg IV Q6H PRN PRN Reason: Nausea/Vomiting Last Admin: 03/23/20 01:58 Dose: 4 mg Documented by: Ondansetron HCl (Zofran Odt) 4 mg PO Q6H PRN PRN Reason: Nausea able to take PO Discontinued Medications Acetaminophen (Tylenol Extra Strength) 1,000 mg PO ONETIME ONE Stop: 03/15/20 11:16 Last Admin: 03/15/20 11:26 Dose: 1,000 mg Documented by: Acetaminophen (Tylenol) 650 mg PO Q4H PRN PRN Reason: Pain (Mild 1-3)/fever Last Admin: 03/17/20 19:56 Dose: 650 mg Documented by: Bupivacaine HCl (Marcaine 0.5%) Confirm Administered Dose 50 ml .ROUTE .STK-MED ONE Stop: 03/17/20 10:55 Last Admin: 03/17/20 11:30 Dose: 3.5 ml Documented by: Duloxetine HCl (Cymbalta) 60 mg PO DAILY [facility] Last Admin: 03/21/20 09:08 Dose: Not Given Documented by: Enoxaparin Sodium (Lovenox) 40 mg SUBCUT Q24H [facility] Last Admin: 03/17/20 16:05 Dose: 40 mg Documented by: Famotidine (Pepcid) 20 mg IVPUSH Q24H [facility] Last Admin: 03/24/20 16:04 Dose: 20 mg Documented by: Fentanyl (Sublimaze) Confirm Administered Dose 100 mcg .ROUTE .STK-MED ONE Stop: 03/17/20 09:55 Furosemide (Lasix) 40 mg IVPUSH NOW ONE Stop: 03/19/20 13:01 Last Admin: 03/19/20 13:40 Dose: 40 mg Documented by: Furosemide (Lasix) 40 mg IVPUSH NOW ONE Stop: 03/20/20 08:21 Last Admin: 03/20/20 08:36 Dose: 40 mg Documented by: Furosemide (Lasix) 40 mg IVPUSH NOW ONE Stop: 03/20/20 21:01 Last Admin: 03/20/20 22:16 Dose: 40 mg Documented by: Furosemide (Lasix) 40 mg IVPUSH NOW ONE Stop: 03/22/20 09:01 Last Admin: 03/22/20 08:30 Dose: 40 mg Documented by: Heparin Sodium (Porcine) (Heparin Lock Flush 100 Units/Ml) Confirm Administered Dose 500 units .ROUTE .STK-MED ONE Stop: 03/17/20 10:55 Last Admin: 03/17/20 11:40 Dose: 500 units Documented by: Heparin Sodium (Porcine) (Heparin Sodium) Confirm Administered Dose 5,000 units .ROUTE .STK-MED ONE Stop: 03/18/20 10:59 Last Admin: 03/18/20 11:54 Dose: Not Given Documented by: Hydromorphone HCl (Dilaudid) 0.5 mg IVPUSH ONETIME ONE Stop: 03/15/20 10:00 Last Admin: 03/15/20 10:10 Dose: 0.5 mg Documented by: Hydromorphone HCl (Dilaudid) 0.5 mg IVPUSH ONETIME ONE Stop: 03/15/20 11:10 Last Admin: 03/15/20 11:15 Dose: 0.5 mg Documented by: Hydromorphone HCl (Dilaudid) 0.5 mg IVPUSH ONETIME ONE Stop: 03/15/20 13:39 Last Admin: 03/15/20 14:04 Dose: 0.5 mg Documented by: Hydromorphone HCl (Dilaudid) 1 mg IVPUSH Q2H PRN PRN Reason: Pain (severe 7-10) Last Admin: 03/16/20 09:43 Dose: 1 mg Documented by: Hydromorphone HCl (Dilaudid) 0.5 mg IVPUSH Q3H PRN PRN Reason: Pain Last Admin: 03/23/20 09:11 Dose: 0.5 mg Documented by: Hydromorphone HCl (Dilaudid) 0.5 mg IVPUSH Q2H PRN PRN Reason: Pain Last Admin: 03/24/20 08:37 Dose: 0.5 mg Documented by: Sodium Chloride (Normal Saline) 1,000 mls @ 500 mls/hr IV ASDIRECTED [facility] Last Admin: 03/15/20 11:13 Dose: 500 mls/hr Documented by: Magnesium Sulfate (Magnesium Sulfate In Water Premix) 2 gm in 50 mls @ 25 mls/hr IV ONETIME ONE Stop: 03/15/20 12:43 Last Admin: 03/15/20 11:14 Dose: 25 mls/hr Documented by: Sodium Chloride (Normal Saline) 74 mls @ 3 mls/sec IV ASDIRECTED [facility] Stop: 03/15/20 11:31 Lactated Ringer's (Ringers, Lactated) 1,000 mls @ 0 mls/hr IV ASDIRECTED [facility] Last Admin: 03/16/20 09:48 Dose: 100 mls/hr Documented by: Magnesium Sulfate (Magnesium Sulfate In Water Premix) 2 gm in 50 mls @ 12.5 mls/hr IV Q6H [facility] Stop: 03/16/20 05:59 Last Admin: 03/16/20 02:41 Dose: 12.5 mls/hr Documented by: Fat Emulsion Intravenous (Intralipid 20%) 100 mls @ 8.3 mls/hr IV Q24H [facility] Last Admin: 03/16/20 16:01 Dose: 8.3 mls/hr Documented by: Multivitamins/Minerals 10 ml/Zinc 1 ml/ Amino Ac/Electrol/Dextrose/Calcium 1,011 mls @ 100 mls/hr IV .BY DURATION [facility] Last Admin: 03/16/20 12:07 Dose: 100 mls/hr Documented by: Amino Ac/Electrol/Dextrose/Calcium (Clinimix E /15) 1,000 mls @ 100 mls/hr IV .BY DURATION [facility] Last Admin: 03/16/20 21:55 Dose: 100 mls/hr Documented by: Meropenem 1 gm/ Sodium (Chloride) 100 mls @ 200 mls/hr IV Q8H [facility] Last Admin: 03/18/20 09:56 Dose: 200 mls/hr Documented by: Levofloxacin/Dextrose 750 mg/ (Premix) 150 mls @ 100 mls/hr IV Q24H [facility] Last Admin: 03/17/20 19:06 Dose: 100 mls/hr Documented by: Sodium Chloride (Normal Saline) 100 mls @ 3 mls/sec IV ASDIRECTED [facility] Last Admin: 03/16/20 19:31 Dose: 3 mls/sec Documented by: Vancomycin HCl 2 gm/ Sodium (Chloride) 500 mls @ 250 mls/hr IV ONETIME ONE Stop: 03/16/20 21:59 Last Admin: 03/16/20 22:41 Dose: 250 mls/hr Documented by: Vancomycin HCl 1 gm/ Sodium (Chloride) 250 mls @ 166.667 mls/hr IV Q12H [facility] Vancomycin HCl 1 gm/ Sodium (Chloride) 250 mls @ 165 mls/hr IV Q12H [facility] Last Admin: 03/18/20 10:47 Dose: 165 mls/hr Documented by: Sodium Chloride (Normal Saline) 1,000 mls @ 100 mls/hr IV ASDIRECTED [facility] Last Admin: 03/18/20 00:39 Dose: 100 mls/hr Documented by: Sodium Chloride (Normal Saline) 500 mls @ 500 mls/hr IV .BOLUS ONE Stop: 03/17/20 11:41 Last Admin: 03/17/20 10:56 Dose: 500 mls/hr Documented by: Lidocaine HCl (Xylocaine-Mpf 1%) Confirm Administered Dose 2 mls @ as directed .ROUTE .STK-MED ONE Stop: 03/17/20 11:04 Fat Emulsion Intravenous (Intralipid 20%) 100 mls @ 8.3 mls/hr IV Q24H [facility] Last Admin: 03/17/20 16:07 Dose: 8.3 mls/hr Documented by: Norepinephrine Bitartrate 4 mg (/ Dextrose/Water) 250 mls @ 7.5 mls/hr IV TITRATE [facility]; Protocol Last Titration: 03/19/20 22:00 Dose: 0 mcg/min, 0 mls/hr Documented by: Sodium Chloride (Normal Saline) 1,000 mls @ 500 mls/hr IV ASDIRECTED [facility] Stop: 03/17/20 18:46 Propofol (Diprivan 100 Ml) Confirm Administered Dose 100 mls @ as directed .ROUTE .STK-MED ONE Stop: 03/18/20 10:45 Last Admin: 03/18/20 11:54 Dose: Not Given Documented by: Propofol (Diprivan 100 Ml) 100 mls @ 2.28 mls/hr IV TITRATE [facility]; Protocol Last Titration: 03/24/20 09:06 Dose: 0 mcg/kg/min, 0 mls/hr Documented by: Heparin Sodium (Porcine) 5,000 (units/ Sodium Chloride) 501 mls @ 1 mls/hr IV ASDIRECTED [facility] Last Admin: 03/21/20 12:04 Dose: 1 mls/hr Documented by: Levofloxacin/Dextrose 750 mg/ (Premix) 150 mls @ 100 mls/hr IV Q48H [facility] Last Admin: 03/21/20 17:42 Dose: 100 mls/hr Documented by: Meropenem 1 gm/ Sodium (Chloride) 100 mls @ 200 mls/hr IV Q12H [facility] Last Admin: 03/21/20 22:57 Dose: 200 mls/hr Documented by: Vancomycin HCl 1 gm/ Sodium (Chloride) 250 mls @ 167 mls/hr IV Q24H [facility] Last Admin: 03/19/20 11:27 Dose: 167 mls/hr Documented by: Acetaminophen 1,000 mg/ Premix 100 mls @ 400 mls/hr IV Q8H PRN PRN Reason: Fever Stop: 03/19/20 15:34 Last Admin: 03/19/20 07:48 Dose: 400 mls/hr Documented by: Acetaminophen 1,000 mg/ Premix 100 mls @ 400 mls/hr IV Q8H PRN PRN Reason: Fever Stop: 03/20/20 15:46 Magnesium Sulfate 2 gm/ Premix 50 mls @ 25 mls/hr IV Q6H [facility] Stop: 03/20/20 16:59 Last Admin: 03/20/20 14:35 Dose: 25 mls/hr Documented by: Vancomycin HCl 1 gm/ Sodium (Chloride) 250 mls @ 167 mls/hr IV Q18H [facility] Last Admin: 03/22/20 17:17 Dose: 167 mls/hr Documented by: Piperacillin/Tazobactam/ (Dextrose 2.25 gm/ Premix) 50 mls @ 100 mls/hr IV Q6H [facility] Last Admin: 03/24/20 04:36 Dose: 100 mls/hr Documented by: Vancomycin HCl 1 gm/ Sodium (Chloride) 250 mls @ 167 mls/hr IV Q18H [facility] Last Admin: 03/24/20 07:56 Dose: 167 mls/hr Documented by: Ibuprofen (Motrin) 400 mg PO ONETIME ONE Stop: 03/17/20 13:01 Last Admin: 03/17/20 12:59 Dose: 400 mg Documented by: Iopamidol (Isovue-300 (61%)) 112 ml IV ONETIME ONE Stop: 03/15/20 11:17 Last Admin: 03/15/20 19:33 Dose: Not Given Documented by: Iopamidol (Isovue-370 (76%)) 100 ml IV . DIRECTED [facility] Last Admin: 03/16/20 19:31 Dose: 100 ml Documented by: Lactobacillus Rhamnosus (Culturelle) 1 cap PO BID [facility] Last Admin: 03/18/20 08:56 Dose: 1 cap Documented by: Lidocaine/Epinephrine (Xylocaine 1% With Epinephrine 1:100,000) Confirm Administered Dose 50 ml .ROUTE .STK-MED ONE Stop: 03/17/20 10:55 Last Admin: 03/17/20 11:30 Dose: 3.5 ml Documented by: Lorazepam (Ativan) 1 mg IVPUSH ONETIME ONE Stop: 03/15/20 11:31 Last Admin: 03/15/20 11:40 Dose: 1 mg Documented by: Lorazepam (Ativan) 0.5 mg IVPUSH Q4H PRN PRN Reason: Nausea/Vomiting Lorazepam (Ativan) 0.5 mg IVPUSH ONETIME ONE Stop: 03/18/20 06:38 Last Admin: 03/18/20 07:04 Dose: 0.5 mg Documented by: Midazolam HCl (Versed 1 Mg/Ml) Confirm Administered Dose 2 mg .ROUTE .STK-MED ONE Stop: 03/17/20 09:56 Non-Formulary Medication (Total Parenteral Nutrition, Central) 1,000 ml .XX .Continue Order [facility] Stop: 03/17/20 08:01 Non-Formulary Medication (Total Parenteral Nutrition, Central) 0 ml IV ONETIME [facility] Stop: 03/20/20 12:01 Non-Formulary Medication (Total Parenteral Nutrition, Central) 0 ml IV ONETIME [facility] Stop: 03/21/20 12:00 Olanzapine (Zyprexa) 5 mg IM ONETIME ONE Stop: 03/24/20 11:01 Last Admin: 03/24/20 10:59 Dose: 5 mg Documented by: Oxycodone HCl (Oxycodone) 5 mg PO Q4H PRN PRN Reason: Pain Last Admin: 03/17/20 13:29 Dose: 5 mg Documented by: Pantoprazole Sodium (Protonix Iv) 40 mg IV Q12H [facility] Last Admin: 03/22/20 03:09 Dose: 40 mg Documented by: Propofol (Diprivan 20 Ml) Confirm Administered Dose 200 mg .ROUTE .STK-MED ONE Stop: 03/17/20 09:55 Propofol (Diprivan 20 Ml) Confirm Administered Dose 200 mg .ROUTE .STK-MED ONE Stop: 03/18/20 11:22 Sodium Chloride (Saline Flush) 10 ml FLUSH ASDIRECTED PRN PRN Reason: Keep Vein Open Last Admin: 03/15/20 10:11 Dose: 10 ml Documented by: Sodium Chloride (Saline Flush) 10 ml FLUSH ONETIME ONE Stop: 03/15/20 11:17 Last Admin: 03/16/20 19:31 Dose: 10 ml Documented by: Sodium Chloride (Normal Saline) 10 ml FLUSH ONETIME ONE Stop: 03/16/20 17:53 Last Admin: 03/16/20 20:53 Dose: Not Given Documented by: Succinylcholine Chloride (Quelicin) Confirm Administered Dose 200 mg .ROUTE .STK-MED ONE Stop: 03/18/20 11:22 Tizanidine HCl (Zanaflex) 4 mg PO Q6H PRN PRN Reason: muscle cramps Last Admin: 03/18/20 04:05 Dose: 4 mg Documented by: Vancomycin HCl (Vancomycin) 1 gm IV .PHARMACY TO DOSE [facility] Stop: 03/17/20 18:01 - Exam Quality Assessment: No: Supplemental Oxygen General: Alert, Cooperative, No Acute Distress HEENT: Scleral Icterus Lungs: Normal Respiratory Effort, Crackles (rare lower lungs) Cardiovascular: Regular Rate, Regular Rhythm GI/Abdominal Exam: Normal Bowel Sounds, Soft, No Distention Extremities: No Pedal Edema. No: Increased Warmth Skin: Warm, Dry, Other (jaundice ) Psy/Mental Status: Alert. No: Agitated Sepsis Event Note - Evaluation Sepsis Screening Result: Severe Sepsis Risk - Focused Exam Vital Signs: Vital Signs Temp Pulse Resp BP Pulse Ox 03/25/20 08:00 78 22 H 166/86 H 03/25/20 07:00 36.1 C 74 24 H 144/68 H 100 03/25/20 06:00 32 H 148/70 H 98 03/25/20 05:00 36.1 C 32 H 147/68 H 98 03/25/20 04:00 32 H 141/68 H 99 03/25/20 03:00 36 H 137/68 98 03/25/20 02:00 36 H 146/66 H 99 03/25/20 01:00 36.1 C 38 H 148/72 H 94 L 03/25/20 00:00 28 H 137/63 94 L 03/24/20 23:00 36.2 C 32 H 138/69 95 03/24/20 22:00 32 H 162/70 H 94 L - Problem List & Annotations (1) SBO (small bowel obstruction) SNOMED Code(s): 769481931 Code(s): K56.609 - UNSP INTESTNL OBST, UNSP TO PARTIAL VERSUS COMPLETE OBST Status: Acute Current Visit: Yes (2) Crohn's disease SNOMED Code(s): 92319527 Code(s): K50.90 - CROHN'S DISEASE, UNSPECIFIED, WITHOUT COMPLICATIONS Status: Chronic Current Visit: No Qualifiers: Gastrointestinal tract location: unspecified location Digestive disease complication type: other complication Qualified Code(s): K50.918 - Crohn's disease, unspecified, with other complication (3) Pancytopenia SNOMED Code(s): 290206178 Code(s): D61.818 - OTHER PANCYTOPENIA Status: Chronic Current Visit: No (4) CKD (chronic kidney disease), stage III SNOMED Code(s): 593884003 Code(s): N18.3 - CHRONIC KIDNEY DISEASE, STAGE 3 (MODERATE) * DO NOT USE * Status: Chronic Current Visit: No Qualifiers: Chronic kidney disease stage 3 subtype: stage 3a (GFR 45-59) Qualified Code(s): N18.31 - Chronic kidney disease, stage 3a (5) History of left nephrectomy SNOMED Code(s): 99333767188320 Code(s): Z90.5 - ACQUIRED ABSENCE OF KIDNEY Status: Chronic Current Visit: No - Problem List Review Problem List Initiated/Reviewed/Updated: Yes - My Orders Last 24 Hours: My Active Orders 03/24/20 09:06 LORazepam [Ativan] 0.5 mg IVPUSH Q2H PRN 03/24/20 09:10 HYDROmorphone [Dilaudid] 1 mg IVPUSH Q2H PRN 03/24/20 10:00 Ampicillin/Sulbactam Na [Unasyn] 1.5 gm Sodium Chloride 0.9% [Normal Saline] 50 ml IV Q6H 03/24/20 10:46 Acetaminophen [Tylenol] 650 mg RECTAL Q4H PRN 03/24/20 11:33 Heparin Sodium [Heparin Lock Flush 100 Units/ML] 500 units FLUSH ASDIRECTED PRN 03/25/20 09:21 HYDROmorphone [Dilaudid] 2 - 4 mg PO Q3H PRN 03/25/20 09:21 DULoxetine [Cymbalta] 60 mg PO DAILY 03/25/20 09:22 LORazepam [Ativan] 0.5 mg PO Q4H PRN 03/25/20 09:23 Up With Assistance [RC] ASDIRECTED 03/25/20 Lunch Clear Liquid Diet [DIET] 03/25/20 12:15 Insert Law Catheter [Insert Urinary Catheter] [OM.PC] Q24H 03/25/20 21:00 Famotidine [Pepcid] 20 mg PO BEDTIME 03/26/20 05:00 CBC W/O DIFF,HEMOGRAM [HEME] Timed (1) COMPREHENSIVE METABOLIC PN,CMP [CHEM] Timed MAGNESIUM [CHEM] Timed - Plan Plan:: ASSESSMENT AND PLAN Bilateral pneumonia with septic shock-CT imaging gave appearance of septic emboli. Chest x-ray clearing. Successfully extubated 03/24 and doing well since extubation. -Continue ampicillin/sulbactam -Follow-up repeat cultures Hypoxic respiratory failure-secondary to bilateral pulmonary infiltrates. St able since extubation and off oxygen this morning. -Supplement oxygen as indicated Mixed delirium-periods of agitation as well as somnolence following extubation. I suspect this is mostly related to persistence of sedating medication she is clearing but has not back to baseline yet. -Restart home meds this morning -Lorazepam for significant agitation -Consider additional antipsychotics as needed Small bowel obstruction-Long history of Crohn's disease with multiple abdominal surgeries and ileostomy. So far she has had small quantities but stable output from her ostomy. -Symptomatic management of pain and nausea -Trial of clear liquids Elevated bilirubin, probable shock liver-US 03/21 showed some sludge and stones but no obvious cholecystitis. CT scan did not show acute pathology or evidence for obstruction. Bilirubin much improved today. -Gastroenterology consultation if she does not continue to improve further -Recheck labs in a.m. Pancytopenia, hypersplenism?-chronic, stable. Stable so far. -Follow-up labs in a.m. -Transfuse hemoglobin less than 7 -Hold enoxaparin because of thrombocytopenia Stage III chronic kidney disease-history of left nephrectomy. Creatinine stab le. Volume status appropriate. -Hold diuretic therapy today -Closely monitor urine output and renal function Maintenance issues - - DVT prophylaxis -SCDs - GI prophylaxis -Pepcid - Nutrition -clear liquids - Law catheter -placed for strict intake and output monitoring with critical patient, I would anticipate removal tomorrow if stable overnight Disposition -anticipate discharge home after the hospital stay. Patient may need to transfer to higher level of care. Rad Pedersen MD
[2020-03-25] MEDS: DULoxetine 30 MG Cap PO SCH (09:49)
[2020-03-25] MEDS: HYDROmorphone 2 MG Tab PO PRN ×4 (09:49→20:08)
[2020-03-25] MEDS: LORazepam 0.5 MG Tab PO PRN ×2 (09:50→16:55)
[2020-03-25] MEDS: Famotidine 20 MG Tab PO SCH (21:27)
[2020-03-26] MEDS: HYDROmorphone 2 MG Tab PO PRN ×6 (03:21→21:10)
[2020-03-26] MEDS: LORazepam 0.5 MG Tab PO PRN (03:21)
[2020-03-26] MEDS: Ampicillin/Sulbactam Na 1.5 GM in Sodium Chloride 0.9% 50 ML IV SCH ×4 (03:22→21:09)
[2020-03-26] MEDS: DULoxetine 30 MG Cap PO SCH ×2 (07:07→09:03)
[2020-03-26] MEDS: OLANZapine 5 MG Tab PO SCH ×2 (09:03→21:09)
[2020-03-26] MEDS ORDERED: Loperamide 2 MG Cap PO PRN (09:04)
--- NOTE | 2020-03-26 09:10 | PCM.PN ---
- General Info Date of Service: 03/26/20 Subjective Update: There were no acute events overnight and the patient rested comfortably. She feels a little better today with less confusion. She does not feel short of breath. She does not report abdominal pain this morning. She has had increased ostomy output in the past 24 hours. No fevers. Bilirubin is better again today. She was able to get from the bed to the chair under her own power. She has not required supplemental oxygen other than a very small amount overnight. Functional Status: Reports: Pain Controlled - Review of Systems General: Reports: Weakness. Denies: Fever Neurological: Reports: Confusion - Patient Data Vitals - Most Recent: Last Vital Signs Temp 35.9 C L 03/26/20 08:00 Pulse 75 03/26/20 08:00 Resp 26 H 03/26/20 08:00 BP 147/91 H 03/26/20 08:00 Pulse Ox 93 L 03/26/20 08:00 Weight - Most Recent: 74.9 kg I&O - Last 24 Hours: Intake & Output 03/25/20 03/26/20 03/26/20 22:59 06:59 14:59 Intake Total 1090 340 Output Total 500 1650 Balance 590 -1310 Lab Results Last 24 Hours: Laboratory Results - last 24 hr 03/26/20 03/26/20 Range/Units 04:41 04:41 WBC 4.1 L (4.5-11.0) K/uL RBC 2.75 L (3.30-5.50) M/uL Hgb 7.6 L (12.0-15.0) g/dL Hct 26.0 L (36.0-48.0) % MCV 95 (80-98) fL MCH 28 (27-31) pg MCHC 29 L (32-36) % Plt Count 163 (150-400) K/uL Sodium 142 (140-148) mmol/L Potassium 3.9 (3.6-5.2) mmol/L Chloride 107 (100-108) mmol/L Carbon Dioxide 21 (21-32) mmol/L Anion Gap 13.6 (5.0-14.0) mmol/L BUN 32 H (7-18) mg/dL Creatinine 1.5 H (0.6-1.0) mg/dL Est Cr Clr Drug Dosing 38.68 mL/min Estimated GFR (MDRD) 35 L (>60) Glucose 106 (74-106) mg/dL Calcium 7.8 L (8.5-10.1) mg/dL Magnesium 2.2 (1.8-2.4) mg/dL Total Bilirubin 6.8 H (0.2-1.0) mg/dL AST 44 H (15-37) U/L ALT 27 (12-78) U/L Alkaline Phosphatase 197 H (46-116) U/L Total Protein 7.6 (6.4-8.2) g/dL Albumin 1.5 L (3.4-5.0) g/dL Globulin 6.1 H (2.3-3.5) g/dL Albumin/Globulin Ratio 0.3 L (1.2-2.2) Med Orders - Current: Current Medications Acetaminophen (Tylenol) 650 mg RECTAL Q4H PRN PRN Reason: Fever Duloxetine HCl (Cymbalta) 60 mg PO DAILY [facility] Last Admin: 03/26/20 09:03 Dose: 60 mg Documented by: Famotidine (Pepcid) 20 mg PO BEDTIME [facility] Last Admin: 03/25/20 21:27 Dose: 20 mg Documented by: Heparin Sodium (Porcine) (Heparin Lock Flush 100 Units/Ml) 500 units FLUSH ASDIRECTED PRN PRN Reason: IV Use Last Admin: 03/26/20 09:05 Dose: 500 units Documented by: Hydromorphone HCl (Dilaudid) 1 mg IVPUSH Q2H PRN PRN Reason: Pain (severe 7-10) Last Admin: 03/25/20 21:25 Dose: 1 mg Documented by: Hydromorphone HCl (Dilaudid) 2 - 4 mg PO Q3H PRN PRN Reason: Pain Last Admin: 03/26/20 06:51 Dose: 4 mg Documented by: Multivitamins/Minerals 10 ml/Zinc 1 ml/ Amino Ac/Electrol/Dextrose/Calcium 1,011 mls @ 100 mls/hr IV .BY DURATION [facility] Last Admin: 03/21/20 11:19 Dose: 100 mls/hr Documented by: Amino Ac/Electrol/Dextrose/Calcium (Clinimix E 15) 1,000 mls @ 100 mls/hr IV .BY DURATION [facility] Last Admin: 03/22/20 06:03 Dose: 100 mls/hr Documented by: Ampicillin Sodium/Sulbactam (Sodium 1.5 gm/ Sodium Chloride) 50 mls @ 100 mls/hr IV Q6H [facility] Last Admin: 03/26/20 03:22 Dose: 100 mls/hr Documented by: Imipramine HCl (Imipramine Hcl) 200 mg PO BEDTIME [facility] Last Admin: 03/25/20 21:26 Dose: 200 mg Documented by: Lorazepam (Ativan) 0.5 mg IVPUSH Q2H PRN PRN Reason: Anxiety Last Admin: 03/24/20 09:36 Dose: 0.5 mg Documented by: Lorazepam (Ativan) 0.5 mg PO Q4H PRN PRN Reason: Anxiety Last Admin: 03/26/20 03:21 Dose: 0.5 mg Documented by: Olanzapine (Zyprexa) 5 mg PO BID [facility] Last Admin: 03/26/20 09:03 Dose: 5 mg Documented by: Ondansetron HCl (Zofran) 4 mg IV Q6H PRN PRN Reason: Nausea/Vomiting Last Admin: 03/23/20 01:58 Dose: 4 mg Documented by: Ondansetron HCl (Zofran Odt) 4 mg PO Q6H PRN PRN Reason: Nausea able to take PO Discontinued Medications Acetaminophen (Tylenol Extra Strength) 1,000 mg PO ONETIME ONE Stop: 03/15/20 11:16 Last Admin: 03/15/20 11:26 Dose: 1,000 mg Documented by: Acetaminophen (Tylenol) 650 mg PO Q4H PRN PRN Reason: Pain (Mild 1-3)/fever Last Admin: 03/17/20 19:56 Dose: 650 mg Documented by: Bupivacaine HCl (Marcaine 0.5%) Confirm Administered Dose 50 ml .ROUTE .STK-MED ONE Stop: 03/17/20 10:55 Last Admin: 03/17/20 11:30 Dose: 3.5 ml Documented by: Duloxetine HCl (Cymbalta) 60 mg PO DAILY [facility] Last Admin: 03/26/20 07:07 Dose: Not Given Documented by: Enoxaparin Sodium (Lovenox) 40 mg SUBCUT Q24H [facility] Last Admin: 03/17/20 16:05 Dose: 40 mg Documented by: Famotidine (Pepcid) 20 mg IVPUSH Q24H [facility] Last Admin: 03/24/20 16:04 Dose: 20 mg Documented by: Fentanyl (Sublimaze) Confirm Administered Dose 100 mcg .ROUTE .STK-MED ONE Stop: 03/17/20 09:55 Furosemide (Lasix) 40 mg IVPUSH NOW ONE Stop: 03/19/20 13:01 Last Admin: 03/19/20 13:40 Dose: 40 mg Documented by: Furosemide (Lasix) 40 mg IVPUSH NOW ONE Stop: 03/20/20 08:21 Last Admin: 03/20/20 08:36 Dose: 40 mg Documented by: Furosemide (Lasix) 40 mg IVPUSH NOW ONE Stop: 03/20/20 21:01 Last Admin: 03/20/20 22:16 Dose: 40 mg Documented by: Furosemide (Lasix) 40 mg IVPUSH NOW ONE Stop: 03/22/20 09:01 Last Admin: 03/22/20 08:30 Dose: 40 mg Documented by: Heparin Sodium (Porcine) (Heparin Lock Flush 100 Units/Ml) Confirm Administered Dose 500 units .ROUTE .STK-MED ONE Stop: 03/17/20 10:55 Last Admin: 03/17/20 11:40 Dose: 500 units Documented by: Heparin Sodium (Porcine) (Heparin Sodium) Confirm Administered Dose 5,000 units .ROUTE .STK-MED ONE Stop: 03/18/20 10:59 Last Admin: 03/18/20 11:54 Dose: Not Given Documented by: Hydromorphone HCl (Dilaudid) 0.5 mg IVPUSH ONETIME ONE Stop: 03/15/20 10:00 Last Admin: 03/15/20 10:10 Dose: 0.5 mg Documented by: Hydromorphone HCl (Dilaudid) 0.5 mg IVPUSH ONETIME ONE Stop: 03/15/20 11:10 Last Admin: 03/15/20 11:15 Dose: 0.5 mg Documented by: Hydromorphone HCl (Dilaudid) 0.5 mg IVPUSH ONETIME ONE Stop: 03/15/20 13:39 Last Admin: 03/15/20 14:04 Dose: 0.5 mg Documented by: Hydromorphone HCl (Dilaudid) 1 mg IVPUSH Q2H PRN PRN Reason: Pain (severe 7-10) Last Admin: 03/16/20 09:43 Dose: 1 mg Documented by: Hydromorphone HCl (Dilaudid) 0.5 mg IVPUSH Q3H PRN PRN Reason: Pain Last Admin: 03/23/20 09:11 Dose: 0.5 mg Documented by: Hydromorphone HCl (Dilaudid) 0.5 mg IVPUSH Q2H PRN PRN Reason: Pain Last Admin: 03/24/20 08:37 Dose: 0.5 mg Documented by: Sodium Chloride (Normal Saline) 1,000 mls @ 500 mls/hr IV ASDIRECTED [facility] Last Admin: 03/15/20 11:13 Dose: 500 mls/hr Documented by: Magnesium Sulfate (Magnesium Sulfate In Water Premix) 2 gm in 50 mls @ 25 mls/hr IV ONETIME ONE Stop: 03/15/20 12:43 Last Admin: 03/15/20 11:14 Dose: 25 mls/hr Documented by: Sodium Chloride (Normal Saline) 74 mls @ 3 mls/sec IV ASDIRECTED [facility] Stop: 03/15/20 11:31 Lactated Ringer's (Ringers, Lactated) 1,000 mls @ 0 mls/hr IV ASDIRECTED [facility] Last Admin: 03/16/20 09:48 Dose: 100 mls/hr Documented by: Magnesium Sulfate (Magnesium Sulfate In Water Premix) 2 gm in 50 mls @ 12.5 mls/hr IV Q6H [facility] Stop: 03/16/20 05:59 Last Admin: 03/16/20 02:41 Dose: 12.5 mls/hr Documented by: Fat Emulsion Intravenous (Intralipid 20%) 100 mls @ 8.3 mls/hr IV Q24H [facility] Last Admin: 03/16/20 16:01 Dose: 8.3 mls/hr Documented by: Multivitamins/Minerals 10 ml/Zinc 1 ml/ Amino Ac/Electrol/Dextrose/Calcium 1,011 mls @ 100 mls/hr IV .BY DURATION [facility] Last Admin: 03/16/20 12:07 Dose: 100 mls/hr Documented by: Amino Ac/Electrol/Dextrose/Calcium (Clinimix E 08/22) 1,000 mls @ 100 mls/hr IV .BY DURATION [facility] Last Admin: 03/16/20 21:55 Dose: 100 mls/hr Documented by: Meropenem 1 gm/ Sodium (Chloride) 100 mls @ 200 mls/hr IV Q8H [facility] Last Admin: 03/18/20 09:56 Dose: 200 mls/hr Documented by: Levofloxacin/Dextrose 750 mg/ (Premix) 150 mls @ 100 mls/hr IV Q24H [facility] Last Admin: 03/17/20 19:06 Dose: 100 mls/hr Documented by: Sodium Chloride (Normal Saline) 100 mls @ 3 mls/sec IV ASDIRECTED [facility] Last Admin: 03/16/20 19:31 Dose: 3 mls/sec Documented by: Vancomycin HCl 2 gm/ Sodium (Chloride) 500 mls @ 250 mls/hr IV ONETIME ONE Stop: 03/16/20 21:59 Last Admin: 03/16/20 22:41 Dose: 250 mls/hr Documented by: Vancomycin HCl 1 gm/ Sodium (Chloride) 250 mls @ 166.667 mls/hr IV Q12H [facility] Vancomycin HCl 1 gm/ Sodium (Chloride) 250 mls @ 165 mls/hr IV Q12H [facility] Last Admin: 03/18/20 10:47 Dose: 165 mls/hr Documented by: Sodium Chloride (Normal Saline) 1,000 mls @ 100 mls/hr IV ASDIRECTED [facility] Last Admin: 03/18/20 00:39 Dose: 100 mls/hr Documented by: Sodium Chloride (Normal Saline) 500 mls @ 500 mls/hr IV .BOLUS ONE Stop: 03/17/20 11:41 Last Admin: 03/17/20 10:56 Dose: 500 mls/hr Documented by: Lidocaine HCl (Xylocaine-Mpf 1%) Confirm Administered Dose 2 mls @ as directed .ROUTE .STK-MED ONE Stop: 03/17/20 11:04 Fat Emulsion Intravenous (Intralipid 20%) 100 mls @ 8.3 mls/hr IV Q24H [facility] Last Admin: 03/17/20 16:07 Dose: 8.3 mls/hr Documented by: Norepinephrine Bitartrate 4 mg (/ Dextrose/Water) 250 mls @ 7.5 mls/hr IV TITRATE [facility]; Protocol Last Titration: 03/19/20 22:00 Dose: 0 mcg/min, 0 mls/hr Documented by: Sodium Chloride (Normal Saline) 1,000 mls @ 500 mls/hr IV ASDIRECTED [facility] Stop: 03/17/20 18:46 Propofol (Diprivan 100 Ml) Confirm Administered Dose 100 mls @ as directed .ROUTE .STK-MED ONE Stop: 03/18/20 10:45 Last Admin: 03/18/20 11:54 Dose: Not Given Documented by: Propofol (Diprivan 100 Ml) 100 mls @ 2.28 mls/hr IV TITRATE [facility]; Protocol Last Titration: 03/24/20 09:06 Dose: 0 mcg/kg/min, 0 mls/hr Documented by: Heparin Sodium (Porcine) 5,000 (units/ Sodium Chloride) 501 mls @ 1 mls/hr IV ASDIRECTED [facility] Last Admin: 03/21/20 12:04 Dose: 1 mls/hr Documented by: Levofloxacin/Dextrose 750 mg/ (Premix) 150 mls @ 100 mls/hr IV Q48H [facility] Last Admin: 03/21/20 17:42 Dose: 100 mls/hr Documented by: Meropenem 1 gm/ Sodium (Chloride) 100 mls @ 200 mls/hr IV Q12H [facility] Last Admin: 03/21/20 22:57 Dose: 200 mls/hr Documented by: Vancomycin HCl 1 gm/ Sodium (Chloride) 250 mls @ 167 mls/hr IV Q24H [facility] Last Admin: 03/19/20 11:27 Dose: 167 mls/hr Documented by: Acetaminophen 1,000 mg/ Premix 100 mls @ 400 mls/hr IV Q8H PRN PRN Reason: Fever Stop: 03/19/20 15:34 Last Admin: 03/19/20 07:48 Dose: 400 mls/hr Documented by: Acetaminophen 1,000 mg/ Premix 100 mls @ 400 mls/hr IV Q8H PRN PRN Reason: Fever Stop: 03/20/20 15:46 Magnesium Sulfate 2 gm/ Premix 50 mls @ 25 mls/hr IV Q6H [facility] Stop: 03/20/20 16:59 Last Admin: 03/20/20 14:35 Dose: 25 mls/hr Documented by: Vancomycin HCl 1 gm/ Sodium (Chloride) 250 mls @ 167 mls/hr IV Q18H [facility] Last Admin: 03/22/20 17:17 Dose: 167 mls/hr Documented by: Piperacillin/Tazobactam/ (Dextrose 2.25 gm/ Premix) 50 mls @ 100 mls/hr IV Q6H [facility] Last Admin: 03/24/20 04:36 Dose: 100 mls/hr Documented by: Vancomycin HCl 1 gm/ Sodium (Chloride) 250 mls @ 167 mls/hr IV Q18H [facility] Last Admin: 03/24/20 07:56 Dose: 167 mls/hr Documented by: Ibuprofen (Motrin) 400 mg PO ONETIME ONE Stop: 03/17/20 13:01 Last Admin: 03/17/20 12:59 Dose: 400 mg Documented by: Iopamidol (Isovue-300 (61%)) 112 ml IV ONETIME ONE Stop: 03/15/20 11:17 Last Admin: 03/15/20 19:33 Dose: Not Given Documented by: Iopamidol (Isovue-370 (76%)) 100 ml IV . DIRECTED [facility] Last Admin: 03/16/20 19:31 Dose: 100 ml Documented by: Lactobacillus Rhamnosus (Culturelle) 1 cap PO BID [facility] Last Admin: 03/18/20 08:56 Dose: 1 cap Documented by: Lidocaine/Epinephrine (Xylocaine 1% With Epinephrine 1:100,000) Confirm Administered Dose 50 ml .ROUTE .STK-MED ONE Stop: 03/17/20 10:55 Last Admin: 03/17/20 11:30 Dose: 3.5 ml Documented by: Lorazepam (Ativan) 1 mg IVPUSH ONETIME ONE Stop: 03/15/20 11:31 Last Admin: 03/15/20 11:40 Dose: 1 mg Documented by: Lorazepam (Ativan) 0.5 mg IVPUSH Q4H PRN PRN Reason: Nausea/Vomiting Lorazepam (Ativan) 0.5 mg IVPUSH ONETIME ONE Stop: 03/18/20 06:38 Last Admin: 03/18/20 07:04 Dose: 0.5 mg Documented by: Midazolam HCl (Versed 1 Mg/Ml) Confirm Administered Dose 2 mg .ROUTE .STK-MED ONE Stop: 03/17/20 09:56 Non-Formulary Medication (Total Parenteral Nutrition, Central) 1,000 ml .XX .Continue Order [facility] Stop: 03/17/20 08:01 Non-Formulary Medication (Total Parenteral Nutrition, Central) 0 ml IV ONETIME [facility] Stop: 03/20/20 12:01 Non-Formulary Medication (Total Parenteral Nutrition, Central) 0 ml IV ONETIME [facility] Stop: 03/21/20 12:00 Olanzapine (Zyprexa) 5 mg IM ONETIME ONE Stop: 03/24/20 11:01 Last Admin: 03/24/20 10:59 Dose: 5 mg Documented by: Oxycodone HCl (Oxycodone) 5 mg PO Q4H PRN PRN Reason: Pain Last Admin: 03/17/20 13:29 Dose: 5 mg Documented by: Pantoprazole Sodium (Protonix Iv) 40 mg IV Q12H [facility] Last Admin: 03/22/20 03:09 Dose: 40 mg Documented by: Propofol (Diprivan 20 Ml) Confirm Administered Dose 200 mg .ROUTE .STK-MED ONE Stop: 03/17/20 09:55 Propofol (Diprivan 20 Ml) Confirm Administered Dose 200 mg .ROUTE .STK-MED ONE Stop: 03/18/20 11:22 Sodium Chloride (Saline Flush) 10 ml FLUSH ASDIRECTED PRN PRN Reason: Keep Vein Open Last Admin: 03/15/20 10:11 Dose: 10 ml Documented by: Sodium Chloride (Saline Flush) 10 ml FLUSH ONETIME ONE Stop: 03/15/20 11:17 Last Admin: 03/16/20 19:31 Dose: 10 ml Documented by: Sodium Chloride (Normal Saline) 10 ml FLUSH ONETIME ONE Stop: 03/16/20 17:53 Last Admin: 03/16/20 20:53 Dose: Not Given Documented by: Succinylcholine Chloride (Quelicin) Confirm Administered Dose 200 mg .ROUTE .STK-MED ONE Stop: 03/18/20 11:22 Tizanidine HCl (Zanaflex) 4 mg PO Q6H PRN PRN Reason: muscle cramps Last Admin: 03/18/20 04:05 Dose: 4 mg Documented by: Vancomycin HCl (Vancomycin) 1 gm IV .PHARMACY TO DOSE [facility] Stop: 03/17/20 18:01 - Exam Quality Assessment: No: Supplemental Oxygen General: Alert, Cooperative, No Acute Distress HEENT: Scleral Icterus Lungs: Clear to Auscultation, Normal Respiratory Effort Cardiovascular: Regular Rate, Regular Rhythm GI/Abdominal Exam: Soft, No Distention Extremities: No Pedal Edema. No: Increased Warmth Skin: Warm, Dry, Other (jaundice) Wound/Incisions: Other (triple lumen right upper chest with no erythema ) Psy/Mental Status: Alert, Normal Affect Sepsis Event Note - Evaluation Sepsis Screening Result: No Definite Risk - Focused Exam Vital Signs: Vital Signs Temp Pulse Resp BP Pulse Ox 03/26/20 08:00 35.9 C L 75 26 H 147/91 H 93 L 03/26/20 06:00 78 14 145/85 H 95 03/26/20 04:00 36.3 C 84 20 128/73 95 03/26/20 02:00 77 26 H 137/64 94 L 03/26/20 00:00 36.2 C 74 21 H 147/67 H 94 L 03/25/20 22:00 71 20 130/58 L 93 L - Problem List & Annotations (1) SBO (small bowel obstruction) SNOMED Code(s): 677612745 Code(s): K56.609 - UNSP INTESTNL OBST, UNSP TO PARTIAL VERSUS COMPLETE OBST Status: Acute Current Visit: Yes (2) Crohn's disease SNOMED Code(s): 68765439 Code(s): K50.90 - CROHN'S DISEASE, UNSPECIFIED, WITHOUT COMPLICATIONS Status: Chronic Current Visit: No Qualifiers: Gastrointestinal tract location: unspecified location Digestive disease complication type: other complication Qualified Code(s): K50.918 - Crohn's disease, unspecified, with other complication (3) Pancytopenia SNOMED Code(s): 887309538 Code(s): D61.818 - OTHER PANCYTOPENIA Status: Chronic Current Visit: No (4) CKD (chronic kidney disease), stage III SNOMED Code(s): 963507480 Code(s): N18.3 - CHRONIC KIDNEY DISEASE, STAGE 3 (MODERATE) * DO NOT USE * Status: Chronic Current Visit: No Qualifiers: Chronic kidney disease stage 3 subtype: stage 3a (GFR 45-59) Qualified Code(s): N18.31 - Chronic kidney disease, stage 3a (5) History of left nephrectomy SNOMED Code(s): 40536591269601 Code(s): Z90.5 - ACQUIRED ABSENCE OF KIDNEY Status: Chronic Current Visit: No - Problem List Review Problem List Initiated/Reviewed/Updated: Yes - My Orders Last 24 Hours: My Active Orders 03/25/20 09:21 HYDROmorphone [Dilaudid] 2 - 4 mg PO Q3H PRN 03/25/20 09:22 LORazepam [Ativan] 0.5 mg PO Q4H PRN 03/25/20 09:23 Up With Assistance [RC] ASDIRECTED 03/25/20 09:30 DULoxetine [Cymbalta] 60 mg PO DAILY 03/25/20 21:00 Famotidine [Pepcid] 20 mg PO BEDTIME 03/26/20 Breakfast Regular Diet [DIET] 03/26/20 09:04 Loperamide [Imodium] 4 mg PO Q4H PRN 03/26/20 09:07 Discontinue Telemetry Monitoring [Cardiac Monitoring Discontinue] [RC] Click to Edit 03/26/20 09:08 Transfer Patient (Change bed) [ADT] Routine PT Evaluation and Treatment [CONS] Routine 03/26/20 09:09 DC Law Catheter [Urinary Catheter Removal] [RC] PER UNIT ROUTINE 03/26/20 09:15 Atropine/Diphenoxylate [Lomotil 0.025-2.5 MG] 2 tab PO Q6H Lactobacillus Rhamnosus GG [Culturelle] 1 cap PO BID Psyllium Seed (With Sugar) [Metamucil Fiber Wafer] 2 each PO TID 03/26/20 10:00 Cholestyramine/Sucrose [Cholestyramine Packet] 4 gm PO QID 03/27/20 05:00 CBC W/O DIFF,HEMOGRAM [HEME] Timed (1) COMPREHENSIVE METABOLIC PN,CMP [CHEM] Timed - Plan Plan:: ASSESSMENT AND PLAN Bilateral pneumonia with septic shock-CT imaging gave appearance of septic emb loli. Successfully extubated 03/24. Respiratory status stable since extubation -Continue ampicillin/sulbactam -Follow-up repeat cultures Hypoxic respiratory failure-secondary to bilateral pulmonary infiltrates. Stable since extubation and off oxygen for the most part. -Supplement oxygen as indicated Mixed delirium-periods of agitation as well as somnolence following extubation. Ongoing improvement but not quite back to baseline. -Continue home medications -Lorazepam for significant agitation Small bowel obstruction-Long history of Crohn's disease with multiple abdominal surgeries and ileostomy. Increasing ostomy output. -Symptomatic management of pain and nausea Elevated bilirubin, probable shock liver-US 03/21 showed some sludge and stones but no obvious cholecystitis. CT scan did not show acute pathology or evidence for obstruction. Bilirubin has continued to improve. -Gastroenterology consultation if she does not continue to improve further -Recheck labs in a.m. Pancytopenia, hypersplenism?-chronic, stable. Stable so far. -Follow-up labs in a.m. -Transfuse hemoglobin less than 7 -Hold enoxaparin because of thrombocytopenia Stage III chronic kidney disease-history of left nephrectomy. Creatinine stable. Volume status appropriate. -Hold diuretic therapy today -Closely monitor urine output and renal function Maintenance issues - - DVT prophylaxis -SCDs - GI prophylaxis -Pepcid - Nutrition -regular diet - Law catheter -plan to remove today Disposition -anticipate discharge home after the hospital stay. She is stable and safe for transfer out of the intensive care unit today. Rad Pedersen MD
[2020-03-26] MEDS: Cholestyramine/Sucrose Powder 4 GM Packet PO SCH ×3 (10:13→21:08)
[2020-03-26] MEDS: Lactobacillus Rhamnosus GG (Probiotic) Cap PO SCH ×2 (10:14→21:09)
[2020-03-26] MEDS: Psyllium Seed (With Sugar) Wafer PO SCH ×3 (10:15→21:14)
[2020-03-26] MEDS: Atropine/Diphenoxylate 0.025-2.5 MG Tab PO SCH ×3 (10:25→21:10)
[2020-03-26] MEDS: Famotidine 20 MG Tab PO SCH (21:09)
[2020-03-27] MEDS: HYDROmorphone 2 MG Tab PO PRN ×2 (02:02→05:07)
[2020-03-27] MEDS: Ampicillin/Sulbactam Na 1.5 GM in Sodium Chloride 0.9% 50 ML IV SCH ×4 (05:00→22:02)
[2020-03-27] MEDS: Atropine/Diphenoxylate 0.025-2.5 MG Tab PO SCH ×4 (05:00→22:02)
[2020-03-27] MEDS: Cholestyramine/Sucrose Powder 4 GM Packet PO SCH ×4 (05:06→22:03)
[2020-03-27] MEDS: Lactobacillus Rhamnosus GG (Probiotic) Cap PO SCH ×2 (08:37→20:20)
[2020-03-27] MEDS: Psyllium Seed (With Sugar) Wafer PO SCH ×4 (08:37→22:02)
[2020-03-27] MEDS: DULoxetine 30 MG Cap PO SCH (08:37)
[2020-03-27] MEDS: OLANZapine 5 MG Tab PO SCH ×2 (08:38→20:20)
--- NOTE | 2020-03-27 09:42 | PCM.PN ---
- General Info Date of Service: 03/27/20 Subjective Update: There were no acute events overnight. Mental status has cleared further and she seems to be nearing her baseline. Intake has not been great but she has been doing better. Weak but seems to be a little bit stronger today. Bilirubin is down to 5. Vital signs have been stable. She has not required any supplemental oxygen. She has not had any fevers. Pancytopenia is stable. Functional Status: Reports: Pain Controlled, Tolerating Diet - Review of Systems General: Reports: Weakness. Denies: Fever - Patient Data Vitals - Most Recent: Last Vital Signs Temp 36.2 C 03/27/20 08:49 Pulse 61 03/27/20 08:49 Resp 16 03/27/20 08:49 BP 144/67 H 03/27/20 08:49 Pulse Ox 93 L 03/27/20 08:49 Weight - Most Recent: 74.9 kg I&O - Last 24 Hours: Intake & Output 03/26/20 03/27/20 03/27/20 22:59 06:59 14:59 Intake Total 1100 100 Output Total 550 1075 Balance 550 -975 Lab Results Last 24 Hours: Laboratory Results - last 24 hr 03/27/20 03/27/20 Range/Units 04:53 05:00 WBC 3.6 L (4.5-11.0) K/uL RBC 2.77 L (3.30-5.50) M/uL Hgb 8.0 L (12.0-15.0) g/dL Hct 26.8 L (36.0-48.0) % MCV 97 (80-98) fL MCH 29 (27-31) pg MCHC 30 L (32-36) % Plt Count 150 (150-400) K/uL Sodium 137 L (140-148) mmol/L Potassium 3.9 (3.6-5.2) mmol/L Chloride 104 (100-108) mmol/L Carbon Dioxide 21 (21-32) mmol/L Anion Gap 15.9 H (5.0-14.0) mmol/L BUN 24 H (7-18) mg/dL Creatinine 1.4 H (0.6-1.0) mg/dL Est Cr Clr Drug Dosing 41.45 mL/min Estimated GFR (MDRD) 38 L (>60) Glucose 96 (74-106) mg/dL Calcium 8.0 L (8.5-10.1) mg/dL Total Bilirubin 5.2 H (0.2-1.0) mg/dL AST 43 H (15-37) U/L ALT 30 (12-78) U/L Alkaline Phosphatase 183 H (46-116) U/L Total Protein 7.7 (6.4-8.2) g/dL Albumin 1.8 L (3.4-5.0) g/dL Globulin 5.9 H (2.3-3.5) g/dL Albumin/Globulin Ratio 0.3 L (1.2-2.2) Med Orders - Current: Current Medications Acetaminophen (Tylenol) 650 mg RECTAL Q4H PRN PRN Reason: Fever Cholestyramine Resin (Cholestyramine Packet) 4 gm PO QID [facility] Last Admin: 03/27/20 05:06 Dose: 4 gm Documented by: Diphenoxylate HCl/Atropine (Lomotil 0.025-2.5 Mg) 2 tab PO Q6H [facility] Last Admin: 03/27/20 05:00 Dose: 2 tab Documented by: Duloxetine HCl (Cymbalta) 60 mg PO DAILY [facility] Last Admin: 03/27/20 08:37 Dose: 60 mg Documented by: Famotidine (Pepcid) 20 mg PO BEDTIME [facility] Last Admin: 03/26/20 21:09 Dose: 20 mg Documented by: Heparin Sodium (Porcine) (Heparin Lock Flush 100 Units/Ml) 500 units FLUSH ASDIRECTED PRN PRN Reason: IV Use Last Admin: 03/26/20 09:05 Dose: 500 units Documented by: Hydromorphone HCl (Dilaudid) 1 mg IVPUSH Q2H PRN PRN Reason: Pain (severe 7-10) Last Admin: 03/25/20 21:25 Dose: 1 mg Documented by: Hydromorphone HCl (Dilaudid) 2 - 4 mg PO Q3H PRN PRN Reason: Pain Last Admin: 03/27/20 05:07 Dose: 4 mg Documented by: Multivitamins/Minerals 10 ml/Zinc 1 ml/ Amino Ac/Electrol/Dextrose/Calcium 1,011 mls @ 100 mls/hr IV .BY DURATION [facility] Last Admin: 03/21/20 11:19 Dose: 100 mls/hr Documented by: Amino Ac/Electrol/Dextrose/Calcium (Clinimix E 08/22) 1,000 mls @ 100 mls/hr IV .BY DURATION [facility] Last Admin: 03/22/20 06:03 Dose: 100 mls/hr Documented by: Ampicillin Sodium/Sulbactam (Sodium 1.5 gm/ Sodium Chloride) 50 mls @ 100 mls/hr IV Q6H [facility] Last Admin: 03/27/20 05:00 Dose: 100 mls/hr Documented by: Imipramine HCl (Imipramine Hcl) 200 mg PO BEDTIME [facility] Last Admin: 03/26/20 21:09 Dose: 200 mg Documented by: Lactobacillus Rhamnosus (Culturelle) 1 cap PO BID [facility] Last Admin: 03/27/20 08:37 Dose: 1 cap Documented by: Loperamide HCl (Imodium) 4 mg PO Q4H PRN PRN Reason: Diarrhea Lorazepam (Ativan) 0.5 mg IVPUSH Q2H PRN PRN Reason: Anxiety Last Admin: 03/24/20 09:36 Dose: 0.5 mg Documented by: Lorazepam (Ativan) 0.5 mg PO Q4H PRN PRN Reason: Anxiety Last Admin: 03/26/20 03:21 Dose: 0.5 mg Documented by: Olanzapine (Zyprexa) 5 mg PO BID [facility] Last Admin: 03/27/20 08:38 Dose: 5 mg Documented by: Ondansetron HCl (Zofran) 4 mg IV Q6H PRN PRN Reason: Nausea/Vomiting Last Admin: 03/23/20 01:58 Dose: 4 mg Documented by: Ondansetron HCl (Zofran Odt) 4 mg PO Q6H PRN PRN Reason: Nausea able to take PO Psyllium Husk (Metamucil Fiber Wafer) 2 each PO TID [facility] Last Admin: 03/27/20 08:37 Dose: 2 each Documented by: Discontinued Medications Acetaminophen (Tylenol Extra Strength) 1,000 mg PO ONETIME ONE Stop: 03/15/20 11:16 Last Admin: 03/15/20 11:26 Dose: 1,000 mg Documented by: Acetaminophen (Tylenol) 650 mg PO Q4H PRN PRN Reason: Pain (Mild 1-3)/fever Last Admin: 03/17/20 19:56 Dose: 650 mg Documented by: Bupivacaine HCl (Marcaine 0.5%) Confirm Administered Dose 50 ml .ROUTE .STK-MED ONE Stop: 03/17/20 10:55 Last Admin: 03/17/20 11:30 Dose: 3.5 ml Documented by: Duloxetine HCl (Cymbalta) 60 mg PO DAILY [facility] Last Admin: 03/26/20 07:07 Dose: Not Given Documented by: Enoxaparin Sodium (Lovenox) 40 mg SUBCUT Q24H [facility] Last Admin: 03/17/20 16:05 Dose: 40 mg Documented by: Famotidine (Pepcid) 20 mg IVPUSH Q24H [facility] Last Admin: 03/24/20 16:04 Dose: 20 mg Documented by: Fentanyl (Sublimaze) Confirm Administered Dose 100 mcg .ROUTE .STK-MED ONE Stop: 03/17/20 09:55 Furosemide (Lasix) 40 mg IVPUSH NOW ONE Stop: 03/19/20 13:01 Last Admin: 03/19/20 13:40 Dose: 40 mg Documented by: Furosemide (Lasix) 40 mg IVPUSH NOW ONE Stop: 03/20/20 08:21 Last Admin: 03/20/20 08:36 Dose: 40 mg Documented by: Furosemide (Lasix) 40 mg IVPUSH NOW ONE Stop: 03/20/20 21:01 Last Admin: 03/20/20 22:16 Dose: 40 mg Documented by: Furosemide (Lasix) 40 mg IVPUSH NOW ONE Stop: 03/22/20 09:01 Last Admin: 03/22/20 08:30 Dose: 40 mg Documented by: Heparin Sodium (Porcine) (Heparin Lock Flush 100 Units/Ml) Confirm Administered Dose 500 units .ROUTE .STK-MED ONE Stop: 03/17/20 10:55 Last Admin: 03/17/20 11:40 Dose: 500 units Documented by: Heparin Sodium (Porcine) (Heparin Sodium) Confirm Administered Dose 5,000 units .ROUTE .STK-MED ONE Stop: 03/18/20 10:59 Last Admin: 03/18/20 11:54 Dose: Not Given Documented by: Hydromorphone HCl (Dilaudid) 0.5 mg IVPUSH ONETIME ONE Stop: 03/15/20 10:00 Last Admin: 03/15/20 10:10 Dose: 0.5 mg Documented by: Hydromorphone HCl (Dilaudid) 0.5 mg IVPUSH ONETIME ONE Stop: 03/15/20 11:10 Last Admin: 03/15/20 11:15 Dose: 0.5 mg Documented by: Hydromorphone HCl (Dilaudid) 0.5 mg IVPUSH ONETIME ONE Stop: 03/15/20 13:39 Last Admin: 03/15/20 14:04 Dose: 0.5 mg Documented by: Hydromorphone HCl (Dilaudid) 1 mg IVPUSH Q2H PRN PRN Reason: Pain (severe 7-10) Last Admin: 03/16/20 09:43 Dose: 1 mg Documented by: Hydromorphone HCl (Dilaudid) 0.5 mg IVPUSH Q3H PRN PRN Reason: Pain Last Admin: 03/23/20 09:11 Dose: 0.5 mg Documented by: Hydromorphone HCl (Dilaudid) 0.5 mg IVPUSH Q2H PRN PRN Reason: Pain Last Admin: 03/24/20 08:37 Dose: 0.5 mg Documented by: Sodium Chloride (Normal Saline) 1,000 mls @ 500 mls/hr IV ASDIRECTED [facility] Last Admin: 03/15/20 11:13 Dose: 500 mls/hr Documented by: Magnesium Sulfate (Magnesium Sulfate In Water Premix) 2 gm in 50 mls @ 25 mls/hr IV ONETIME ONE Stop: 03/15/20 12:43 Last Admin: 03/15/20 11:14 Dose: 25 mls/hr Documented by: Sodium Chloride (Normal Saline) 74 mls @ 3 mls/sec IV ASDIRECTED [facility] Stop: 03/15/20 11:31 Lactated Ringer's (Ringers, Lactated) 1,000 mls @ 0 mls/hr IV ASDIRECTED [facility] Last Admin: 03/16/20 09:48 Dose: 100 mls/hr Documented by: Magnesium Sulfate (Magnesium Sulfate In Water Premix) 2 gm in 50 mls @ 12.5 mls/hr IV Q6H [facility] Stop: 03/16/20 05:59 Last Admin: 03/16/20 02:41 Dose: 12.5 mls/hr Documented by: Fat Emulsion Intravenous (Intralipid 20%) 100 mls @ 8.3 mls/hr IV Q24H [facility] Last Admin: 03/16/20 16:01 Dose: 8.3 mls/hr Documented by: Multivitamins/Minerals 10 ml/Zinc 1 ml/ Amino Ac/Electrol/Dextrose/Calcium 1,011 mls @ 100 mls/hr IV .BY DURATION [facility] Last Admin: 03/16/20 12:07 Dose: 100 mls/hr Documented by: Amino Ac/Electrol/Dextrose/Calcium (Clinimix E 08/22) 1,000 mls @ 100 mls/hr IV .BY DURATION [facility] Last Admin: 03/16/20 21:55 Dose: 100 mls/hr Documented by: Meropenem 1 gm/ Sodium (Chloride) 100 mls @ 200 mls/hr IV Q8H [facility] Last Admin: 03/18/20 09:56 Dose: 200 mls/hr Documented by: Levofloxacin/Dextrose 750 mg/ (Premix) 150 mls @ 100 mls/hr IV Q24H [facility] Last Admin: 03/17/20 19:06 Dose: 100 mls/hr Documented by: Sodium Chloride (Normal Saline) 100 mls @ 3 mls/sec IV ASDIRECTED [facility] Last Admin: 03/16/20 19:31 Dose: 3 mls/sec Documented by: Vancomycin HCl 2 gm/ Sodium (Chloride) 500 mls @ 250 mls/hr IV ONETIME ONE Stop: 03/16/20 21:59 Last Admin: 03/16/20 22:41 Dose: 250 mls/hr Documented by: Vancomycin HCl 1 gm/ Sodium (Chloride) 250 mls @ 166.667 mls/hr IV Q12H [facility] Vancomycin HCl 1 gm/ Sodium (Chloride) 250 mls @ 165 mls/hr IV Q12H [facility] Last Admin: 03/18/20 10:47 Dose: 165 mls/hr Documented by: Sodium Chloride (Normal Saline) 1,000 mls @ 100 mls/hr IV ASDIRECTED [facility] Last Admin: 03/18/20 00:39 Dose: 100 mls/hr Documented by: Sodium Chloride (Normal Saline) 500 mls @ 500 mls/hr IV .[facility]OL[facility] ONE Stop: 03/17/20 11:41 Last Admin: 03/17/20 10:56 Dose: 500 mls/hr Documented by: Lidocaine HCl (Xylocaine-Mpf 1%) Confirm Administered Dose 2 mls @ as directed .ROUTE .[facility]-MED ONE Stop: 03/17/20 11:04 Fat Emulsion Intravenous (Intralipid 20%) 100 mls @ 8.3 mls/hr IV Q24H [facility] Last Admin: 03/17/20 16:07 Dose: 8.3 mls/hr Documented by: Norepinephrine Bitartrate 4 mg (/ Dextrose/Water) 250 mls @ 7.5 mls/hr IV TITRATE [facility]; Protocol Last Titration: 03/19/20 22:00 Dose: 0 mcg/min, 0 mls/hr Documented by: Sodium Chloride (Normal Saline) 1,000 mls @ 500 mls/hr IV ASDIRECTED [facility] Stop: 03/17/20 18:46 Propofol (Diprivan 100 Ml) Confirm Administered Dose 100 mls @ as directed .ROUTE .[facility] ONE Stop: 03/18/20 10:45 Last Admin: 03/18/20 11:54 Dose: Not Given Documented by: Propofol (Diprivan 100 Ml) 100 mls @ 2.28 mls/hr IV TITRATE [facility]; Protocol Last Titration: 03/24/20 09:06 Dose: 0 mcg/kg/min, 0 mls/hr Documented by: Heparin Sodium (Porcine) 5,000 (units/ Sodium Chloride) 501 mls @ 1 mls/hr IV ASDIRECTED [facility] Last Admin: 03/21/20 12:04 Dose: 1 mls/hr Documented by: Levofloxacin/Dextrose 750 mg/ (Premix) 150 mls @ 100 mls/hr IV Q48H [facility] Last Admin: 03/21/20 17:42 Dose: 100 mls/hr Documented by: Meropenem 1 gm/ Sodium (Chloride) 100 mls @ 200 mls/hr IV Q12H [facility] Last Admin: 03/21/20 22:57 Dose: 200 mls/hr Documented by: Vancomycin HCl 1 gm/ Sodium (Chloride) 250 mls @ 167 mls/hr IV Q24H [facility] Last Admin: 03/19/20 11:27 Dose: 167 mls/hr Documented by: Acetaminophen 1,000 mg/ Premix 100 mls @ 400 mls/hr IV Q8H PRN PRN Reason: Fever Stop: 03/19/20 15:34 Last Admin: 03/19/20 07:48 Dose: 400 mls/hr Documented by: Acetaminophen 1,000 mg/ Premix 100 mls @ 400 mls/hr IV Q8H PRN PRN Reason: Fever Stop: 03/20/20 15:46 Magnesium Sulfate 2 gm/ Premix 50 mls @ 25 mls/hr IV Q6H [facility] Stop: 03/20/20 16:59 Last Admin: 03/20/20 14:35 Dose: 25 mls/hr Documented by: Vancomycin HCl 1 gm/ Sodium (Chloride) 250 mls @ 167 mls/hr IV Q18H [facility] Last Admin: 03/22/20 17:17 Dose: 167 mls/hr Documented by: Piperacillin/Tazobactam/ (Dextrose 2.25 gm/ Premix) 50 mls @ 100 mls/hr IV Q6H [facility] Last Admin: 03/24/20 04:36 Dose: 100 mls/hr Documented by: Vancomycin HCl 1 gm/ Sodium (Chloride) 250 mls @ 167 mls/hr IV Q18H [facility] Last Admin: 03/24/20 07:56 Dose: 167 mls/hr Documented by: Ibuprofen (Motrin) 400 mg PO ONETIME ONE Stop: 03/17/20 13:01 Last Admin: 03/17/20 12:59 Dose: 400 mg Documented by: Iopamidol (Isovue-300 (61%)) 112 ml IV ONETIME ONE Stop: 03/15/20 11:17 Last Admin: 03/15/20 19:33 Dose: Not Given Documented by: Iopamidol (Isovue-370 (76%)) 100 ml IV . DIRECTED [facility] Last Admin: 03/16/20 19:31 Dose: 100 ml Documented by: Lactobacillus Rhamnosus (Culturelle) 1 cap PO BID [facility] Last Admin: 03/18/20 08:56 Dose: 1 cap Documented by: Lidocaine/Epinephrine (Xylocaine 1% With Epinephrine 1:100,000) Confirm Administered Dose 50 ml .ROUTE .STK-MED ONE Stop: 03/17/20 10:55 Last Admin: 03/17/20 11:30 Dose: 3.5 ml Documented by: Lorazepam (Ativan) 1 mg IVPUSH ONETIME ONE Stop: 03/15/20 11:31 Last Admin: 03/15/20 11:40 Dose: 1 mg Documented by: Lorazepam (Ativan) 0.5 mg IVPUSH Q4H PRN PRN Reason: Nausea/Vomiting Lorazepam (Ativan) 0.5 mg IVPUSH ONETIME ONE Stop: 03/18/20 06:38 Last Admin: 03/18/20 07:04 Dose: 0.5 mg Documented by: Midazolam HCl (Versed 1 Mg/Ml) Confirm Administered Dose 2 mg .ROUTE .STK-MED ONE Stop: 03/17/20 09:56 Non-Formulary Medication (Total Parenteral Nutrition, Central) 1,000 ml .XX .Continue Order [facility] Stop: 03/17/20 08:01 Non-Formulary Medication (Total Parenteral Nutrition, Central) 0 ml IV ONETIME [facility] Stop: 03/20/20 12:01 Non-Formulary Medication (Total Parenteral Nutrition, Central) 0 ml IV ONETIME [facility] Stop: 03/21/20 12:00 Olanzapine (Zyprexa) 5 mg IM ONETIME ONE Stop: 03/24/20 11:01 Last Admin: 03/24/20 10:59 Dose: 5 mg Documented by: Oxycodone HCl (Oxycodone) 5 mg PO Q4H PRN PRN Reason: Pain Last Admin: 03/17/20 13:29 Dose: 5 mg Documented by: Pantoprazole Sodium (Protonix Iv) 40 mg IV Q12H [facility] Last Admin: 03/22/20 03:09 Dose: 40 mg Documented by: Propofol (Diprivan 20 Ml) Confirm Administered Dose 200 mg .ROUTE .STK-MED ONE Stop: 03/17/20 09:55 Propofol (Diprivan 20 Ml) Confirm Administered Dose 200 mg .ROUTE .STK-MED ONE Stop: 03/18/20 11:22 Sodium Chloride (Saline Flush) 10 ml FLUSH ASDIRECTED PRN PRN Reason: Keep Vein Open Last Admin: 03/15/20 10:11 Dose: 10 ml Documented by: Sodium Chloride (Saline Flush) 10 ml FLUSH ONETIME ONE Stop: 03/15/20 11:17 Last Admin: 03/16/20 19:31 Dose: 10 ml Documented by: Sodium Chloride (Normal Saline) 10 ml FLUSH ONETIME ONE Stop: 03/16/20 17:53 Last Admin: 03/16/20 20:53 Dose: Not Given Documented by: Succinylcholine Chloride (Quelicin) Confirm Administered Dose 200 mg .ROUTE .STK-MED ONE Stop: 03/18/20 11:22 Tizanidine HCl (Zanaflex) 4 mg PO Q6H PRN PRN Reason: muscle cramps Last Admin: 03/18/20 04:05 Dose: 4 mg Documented by: Vancomycin HCl (Vancomycin) 1 gm IV .PHARMACY TO DOSE [facility] Stop: 03/17/20 18:01 - Exam Quality Assessment: No: Supplemental Oxygen General: Alert, Oriented, Cooperative, No Acute Distress HEENT: Scleral Icterus Lungs: Clear to Auscultation, Normal Respiratory Effort Cardiovascular: Regular Rate, Regular Rhythm GI/Abdominal Exam: Normal Bowel Sounds, Soft, No Distention, Tender (moderate diffuse) Extremities: No Pedal Edema. No: Increased Warmth Skin: Warm, Dry Psy/Mental Status: Alert, Normal Affect Sepsis Event Note - Evaluation Sepsis Screening Result: Severe Sepsis Risk - Focused Exam Vital Signs: Vital Signs Temp Temp Pulse Pulse Resp BP Pulse Ox 03/27/20 08:49 36.2 C 61 16 144/67 H 93 L 03/27/20 08:42 36.2 C 61 16 144/67 H 93 L 03/27/20 05:00 36.2 C 78 16 146/71 H 98 03/27/20 01:00 36.5 C 80 14 130/72 92 L - Problem List & Annotations (1) SBO (small bowel obstruction) SNOMED Code(s): 713053234 Code(s): K56.609 - UNSP INTESTNL OBST, UNSP TO PARTIAL VERSUS COMPLETE OBST Status: Acute Current Visit: Yes (2) Crohn's disease SNOMED Code(s): 76187160 Code(s): K50.90 - CROHN'S DISEASE, UNSPECIFIED, WITHOUT COMPLICATIONS Status: Chronic Current Visit: No Qualifiers: Gastrointestinal tract location: unspecified location Digestive disease complication type: other complication Qualified Code(s): K50.918 - Crohn's disease, unspecified, with other complication (3) Pancytopenia SNOMED Code(s): 511349914 Code(s): D61.818 - OTHER PANCYTOPENIA Status: Chronic Current Visit: No (4) CKD (chronic kidney disease), stage III SNOMED Code(s): 796329282 Code(s): N18.3 - CHRONIC KIDNEY DISEASE, STAGE 3 (MODERATE) * DO NOT USE * Status: Chronic Current Visit: No Qualifiers: Chronic kidney disease stage 3 subtype: stage 3a (GFR 45-59) Qualified Code(s): N18.31 - Chronic kidney disease, stage 3a (5) History of left nephrectomy SNOMED Code(s): 49476441918170 Code(s): Z90.5 - ACQUIRED ABSENCE OF KIDNEY Status: Chronic Current Visit: No - Problem List Review Problem List Initiated/Reviewed/Updated: Yes - My Orders Last 24 Hours: My Active Orders 03/26/20 09:04 Loperamide [Imodium] 4 mg PO Q4H PRN 03/26/20 09:08 Transfer Patient (Change bed) [ADT] Routine PT Evaluation and Treatment [CONS] Routine 03/26/20 10:00 Atropine/Diphenoxylate [Lomotil 0.025-2.5 MG] 2 tab PO Q6H Cholestyramine/Sucrose [Cholestyramine Packet] 4 gm PO QID Lactobacillus Rhamnosus GG [Culturelle] 1 cap PO BID Psyllium Seed (With Sugar) [Metamucil Fiber Wafer] 2 each PO TID 03/28/20 05:00 CBC W/O DIFF,HEMOGRAM [HEME] Timed (1) COMPREHENSIVE METABOLIC PN,CMP [CHEM] Timed MAGNESIUM [CHEM] Timed - Plan Plan:: ASSESSMENT AND PLAN Bilateral pneumonia with septic shock-CT imaging gave appearance of septic emboli. Successfully extubated 03/24. Respiratory status stable and she has been doing well. -Continue ampicillin/sulbactam -Follow-up repeat cultures Hypoxic respiratory failure-secondary to bilateral pulmonary infiltrates. Stable since extubation and off oxygen. -Supplement oxygen if indicated Mixed delirium-periods of agitation as well as somnolence following extubation. Seems to be back to baseline. -Continue home medications -Lorazepam for significant agitation Small bowel obstruction-Long history of Crohn's disease with multiple abdominal surgeries and ileostomy. Ostomy output stable. -Symptomatic management of pain and nausea Elevated bilirubin, probable shock liver-US 03/21 showed some sludge and stones but no obvious cholecystitis. CT scan did not show acute pathology or evidence for obstruction. Bilirubin has steadily improved but does remain elevated. -Gastroenterology consultation if she does not continue to improve further -Recheck labs in a.m. Pancytopenia, hypersplenism?-chronic, stable. Stable so far. -Follow-up labs in a.m. -Transfuse hemoglobin less than 7 -Hold enoxaparin because of thrombocytopenia Stage III chronic kidney disease-history of left nephrectomy. Creatinine stable. Volume status appropriate. -Hold diuretic therapy today -Closely monitor urine output and renal function Maintenance issues - - DVT prophylaxis -SCDs - GI prophylaxis -Pepcid - Nutrition -regular diet Disposition -anticipate discharge home with home care after the hospital stay. Rad Pedersen MD
[2020-03-27] MEDS: HYDROmorphone 1 MG/ML Syringe IVPUSH PRN ×2 (19:56→23:27)
[2020-03-27] MEDS: Famotidine 20 MG Tab PO SCH (20:20)
[2020-03-28] MEDS: HYDROmorphone 2 MG Tab PO PRN ×5 (00:42→16:00)
[2020-03-28] MEDS: HYDROmorphone 1 MG/ML Syringe IVPUSH PRN ×2 (01:31→19:37)
[2020-03-28] MEDS: Ampicillin/Sulbactam Na 1.5 GM in Sodium Chloride 0.9% 50 ML IV SCH ×4 (03:47→21:54)
[2020-03-28] MEDS: Atropine/Diphenoxylate 0.025-2.5 MG Tab PO SCH ×4 (03:47→21:53)
[2020-03-28] MEDS: Cholestyramine/Sucrose Powder 4 GM Packet PO SCH ×4 (05:08→21:54)
--- NOTE | 2020-03-28 09:19 | PCM.PN ---
- General Info Date of Service: 03/28/20 Subjective Update: There were no acute events overnight. Patient is more clear and nearly back to baseline. Vital signs have been stable. She has not required supplemental oxygen. She does not feel short of breath and has not been coughing. Abdominal pain seems to be back to baseline. She has not had high output from her ileostomy so far. No nausea. Appetite and strength slowly improving. Bilirubin is down below 5 today. Functional Status: Reports: Pain Controlled, Tolerating Diet - Review of Systems General: Reports: Weakness. Denies: Fever - Patient Data Vitals - Most Recent: Last Vital Signs Temp 36.3 C 03/28/20 07:00 Pulse 87 03/28/20 07:00 Resp 18 03/28/20 07:00 BP 122/76 03/28/20 07:00 Pulse Ox 94 L 03/28/20 07:00 Weight - Most Recent: 74.9 kg I&O - Last 24 Hours: Intake & Output 03/27/20 03/28/20 03/28/20 22:59 06:59 14:59 Intake Total 1477 800 Output Total 960 300 Balance 517 500 Lab Results Last 24 Hours: Laboratory Results - last 24 hr 03/28/20 03/28/20 Range/Units 04:52 04:52 WBC 4.3 L (4.5-11.0) K/uL RBC 2.78 L (3.30-5.50) M/uL Hgb 7.9 L (12.0-15.0) g/dL Hct 26.9 L (36.0-48.0) % MCV 97 (80-98) fL MCH 28 (27-31) pg MCHC 29 L (32-36) % Plt Count 154 (150-400) K/uL Sodium 137 L (140-148) mmol/L Potassium 3.5 L (3.6-5.2) mmol/L Chloride 103 (100-108) mmol/L Carbon Dioxide 23 (21-32) mmol/L Anion Gap 14.5 H (5.0-14.0) mmol/L BUN 17 (7-18) mg/dL Creatinine 1.5 H (0.6-1.0) mg/dL Est Cr Clr Drug Dosing 38.68 mL/min Estimated GFR (MDRD) 35 L (>60) Glucose 119 H (74-106) mg/dL Calcium 7.8 L (8.5-10.1) mg/dL Magnesium 1.8 (1.8-2.4) mg/dL Total Bilirubin 4.6 H (0.2-1.0) mg/dL AST 43 H (15-37) U/L ALT 30 (12-78) U/L Alkaline Phosphatase 179 H (46-116) U/L Total Protein 8.1 (6.4-8.2) g/dL Albumin 1.8 L (3.4-5.0) g/dL Globulin 6.3 H (2.3-3.5) g/dL Albumin/Globulin Ratio 0.3 L (1.2-2.2) Med Orders - Current: Current Medications Acetaminophen (Tylenol) 650 mg RECTAL Q4H PRN PRN Reason: Fever Cholestyramine Resin (Cholestyramine Packet) 4 gm PO QID [facility] Last Admin: 03/28/20 05:08 Dose: Not Given Documented by: Diphenoxylate HCl/Atropine (Lomotil 0.025-2.5 Mg) 2 tab PO Q6H [facility] Last Admin: 03/28/20 03:47 Dose: 2 tab Documented by: Duloxetine HCl (Cymbalta) 60 mg PO DAILY [facility] Last Admin: 03/27/20 08:37 Dose: 60 mg Documented by: Famotidine (Pepcid) 20 mg PO BEDTIME [facility] Last Admin: 03/27/20 20:20 Dose: 20 mg Documented by: Heparin Sodium (Porcine) (Heparin Lock Flush 100 Units/Ml) 500 units FLUSH ASDIRECTED PRN PRN Reason: IV Use Last Admin: 03/26/20 09:05 Dose: 500 units Documented by: Hydromorphone HCl (Dilaudid) 1 mg IVPUSH Q2H PRN PRN Reason: Pain (severe 7-10) Last Admin: 03/28/20 01:31 Dose: 1 mg Documented by: Hydromorphone HCl (Dilaudid) 2 - 4 mg PO Q3H PRN PRN Reason: Pain Last Admin: 03/28/20 05:35 Dose: 4 mg Documented by: Multivitamins/Minerals 10 ml/Zinc 1 ml/ Amino Ac/Electrol/Dextrose/Calcium 1,011 mls @ 100 mls/hr IV .BY DURATION [facility] Last Admin: 03/21/20 11:19 Dose: 100 mls/hr Documented by: Amino Ac/Electrol/Dextrose/Calcium (Clinimix E 08/22) 1,000 mls @ 100 mls/hr IV .BY DURATION [facility] Last Admin: 03/22/20 06:03 Dose: 100 mls/hr Documented by: Ampicillin Sodium/Sulbactam (Sodium 1.5 gm/ Sodium Chloride) 50 mls @ 100 m ls/hr IV Q6H [facility] Last Admin: 03/28/20 03:47 Dose: 100 mls/hr Documented by: Magnesium Sulfate (Magnesium Sulfate In Water Premix) 2 gm in 50 mls @ 12.5 mls/hr IV ONETIME ONE Stop: 03/28/20 13:16 Imipramine HCl (Imipramine Hcl) 200 mg PO BEDTIME [facility] Last Admin: 03/27/20 20:20 Dose: 200 mg Documented by: Lactobacillus Rhamnosus (Culturelle) 1 cap PO BID [facility] Last Admin: 03/27/20 20:20 Dose: 1 cap Documented by: Loperamide HCl (Imodium) 4 mg PO Q4H PRN PRN Reason: Diarrhea Lorazepam (Ativan) 0.5 mg IVPUSH Q2H PRN PRN Reason: Anxiety Last Admin: 03/24/20 09:36 Dose: 0.5 mg Documented by: Lorazepam (Ativan) 0.5 mg PO Q4H PRN PRN Reason: Anxiety Last Admin: 03/26/20 03:21 Dose: 0.5 mg Documented by: Olanzapine (Zyprexa) 5 mg PO BID [facility] Last Admin: 03/27/20 20:20 Dose: 5 mg Documented by: Ondansetron HCl (Zofran) 4 mg IV Q6H PRN PRN Reason: Nausea/Vomiting Last Admin: 03/23/20 01:58 Dose: 4 mg Documented by: Ondansetron HCl (Zofran Odt) 4 mg PO Q6H PRN PRN Reason: Nausea able to take PO Psyllium Husk (Metamucil Fiber Wafer) 2 each PO TID [facility] Last Admin: 03/27/20 22:02 Dose: Not Given Documented by: Discontinued Medications Acetaminophen (Tylenol Extra Strength) 1,000 mg PO ONETIME ONE Stop: 03/15/20 11:16 Last Admin: 03/15/20 11:26 Dose: 1,000 mg Documented by: Acetaminophen (Tylenol) 650 mg PO Q4H PRN PRN Reason: Pain (Mild 1-3)/fever Last Admin: 03/17/20 19:56 Dose: 650 mg Documented by: Bupivacaine HCl (Marcaine 0.5%) Confirm Administered Dose 50 ml .ROUTE .STK-MED ONE Stop: 03/17/20 10:55 Last Admin: 03/17/20 11:30 Dose: 3.5 ml Documented by: Duloxetine HCl (Cymbalta) 60 mg PO DAILY [facility] Last Admin: 03/26/20 07:07 Dose: Not Given Documented by: Enoxaparin Sodium (Lovenox) 40 mg SUBCUT Q24H [facility] Last Admin: 03/17/20 16:05 Dose: 40 mg Documented by: Famotidine (Pepcid) 20 mg IVPUSH Q24H [facility] Last Admin: 03/24/20 16:04 Dose: 20 mg Documented by: Fentanyl (Sublimaze) Confirm Administered Dose 100 mcg .ROUTE .STK-MED ONE Stop: 03/17/20 09:55 Furosemide (Lasix) 40 mg IVPUSH NOW ONE Stop: 03/19/20 13:01 Last Admin: 03/19/20 13:40 Dose: 40 mg Documented by: Furosemide (Lasix) 40 mg IVPUSH NOW ONE Stop: 03/20/20 08:21 Last Admin: 03/20/20 08:36 Dose: 40 mg Documented by: Furosemide (Lasix) 40 mg IVPUSH NOW ONE Stop: 03/20/20 21:01 Last Admin: 03/20/20 22:16 Dose: 40 mg Documented by: Furosemide (Lasix) 40 mg IVPUSH NOW ONE Stop: 03/22/20 09:01 Last Admin: 03/22/20 08:30 Dose: 40 mg Documented by: Heparin Sodium (Porcine) (Heparin Lock Flush 100 Units/Ml) Confirm Administered Dose 500 units .ROUTE .STK-MED ONE Stop: 03/17/20 10:55 Last Admin: 03/17/20 11:40 Dose: 500 units Documented by: Heparin Sodium (Porcine) (Heparin Sodium) Confirm Administered Dose 5,000 units .ROUTE .STK-MED ONE Stop: 03/18/20 10:59 Last Admin: 03/18/20 11:54 Dose: Not Given Documented by: Hydromorphone HCl (Dilaudid) 0.5 mg IVPUSH ONETIME ONE Stop: 03/15/20 10:00 Last Admin: 03/15/20 10:10 Dose: 0.5 mg Documented by: Hydromorphone HCl (Dilaudid) 0.5 mg IVPUSH ONETIME ONE Stop: 03/15/20 11:10 Last Admin: 03/15/20 11:15 Dose: 0.5 mg Documented by: Hydromorphone HCl (Dilaudid) 0.5 mg IVPUSH ONETIME ONE Stop: 03/15/20 13:39 Last Admin: 03/15/20 14:04 Dose: 0.5 mg Documented by: Hydromorphone HCl (Dilaudid) 1 mg IVPUSH Q2H PRN PRN Reason: Pain (severe 7-10) Last Admin: 03/16/20 09:43 Dose: 1 mg Documented by: Hydromorphone HCl (Dilaudid) 0.5 mg IVPUSH Q3H PRN PRN Reason: Pain Last Admin: 03/23/20 09:11 Dose: 0.5 mg Documented by: Hydromorphone HCl (Dilaudid) 0.5 mg IVPUSH Q2H PRN PRN Reason: Pain Last Admin: 03/24/20 08:37 Dose: 0.5 mg Documented by: Sodium Chloride (Normal Saline) 1,000 mls @ 500 mls/hr IV ASDIRECTED [facility] Last Admin: 03/15/20 11:13 Dose: 500 mls/hr Documented by: Magnesium Sulfate (Magnesium Sulfate In Water Premix) 2 gm in 50 mls @ 25 mls/hr IV ONETIME ONE Stop: 03/15/20 12:43 Last Admin: 03/15/20 11:14 Dose: 25 mls/hr Documented by: Sodium Chloride (Normal Saline) 74 mls @ 3 mls/sec IV ASDIRECTED [facility] Stop: 03/15/20 11:31 Lactated Ringer's (Ringers, Lactated) 1,000 mls @ 0 mls/hr IV ASDIRECTED [facility] Last Admin: 03/16/20 09:48 Dose: 100 mls/hr Documented by: Magnesium Sulfate (Magnesium Sulfate In Water Premix) 2 gm in 50 mls @ 12.5 mls/hr IV Q6H [facility] Stop: 03/16/20 05:59 Last Admin: 03/16/20 02:41 Dose: 12.5 mls/hr Documented by: Fat Emulsion Intravenous (Intralipid 20%) 100 mls @ 8.3 mls/hr IV Q24H [facility] Last Admin: 03/16/20 16:01 Dose: 8.3 mls/hr Documented by: Multivitamins/Minerals 10 ml/Zinc 1 ml/ Amino Ac/Electrol/Dextrose/Calcium 1,011 mls @ 100 mls/hr IV .BY DURATION [facility] Last Admin: 03/16/20 12:07 Dose: 100 mls/hr Documented by: Amino Ac/Electrol/Dextrose/Calcium (Clinimix E 08/22) 1,000 mls @ 100 mls/hr IV .BY DURATION [facility] Last Admin: 03/16/20 21:55 Dose: 100 mls/hr Documented by: Meropenem 1 gm/ Sodium (Chloride) 100 mls @ 200 mls/hr IV Q8H [facility] Last Admin: 03/18/20 09:56 Dose: 200 mls/hr Documented by: Levofloxacin/Dextrose 750 mg/ (Premix) 150 mls @ 100 mls/hr IV Q24H [facility] Last Admin: 03/17/20 19:06 Dose: 100 mls/hr Documented by: Sodium Chloride (Normal Saline) 100 mls @ 3 mls/sec IV ASDIRECTED [facility] Last Admin: 03/16/20 19:31 Dose: 3 mls/sec Documented by: Vancomycin HCl 2 gm/ Sodium (Chloride) 500 mls @ 250 mls/hr IV ONETIME ONE Stop: 03/16/20 21:59 Last Admin: 03/16/20 22:41 Dose: 250 mls/hr Documented by: Vancomycin HCl 1 gm/ Sodium (Chloride) 250 mls @ 166.667 mls/hr IV Q12H [facility] Vancomycin HCl 1 gm/ Sodium (Chloride) 250 mls @ 165 mls/hr IV Q12H [facility] Last Admin: 03/18/20 10:47 Dose: 165 mls/hr Documented by: Sodium Chloride (Normal Saline) 1,000 mls @ 100 mls/hr IV ASDIRECTED [facility] Last Admin: 03/18/20 00:39 Dose: 100 mls/hr Documented by: Sodium Chloride (Normal Saline) 500 mls @ 500 mls/hr IV .BOLUS ONE Stop: 03/17/20 11:41 Last Admin: 03/17/20 10:56 Dose: 500 mls/hr Documented by: Lidocaine HCl (Xylocaine-Mpf 1%) Confirm Administered Dose 2 mls @ as directed .ROUTE .STK-MED ONE Stop: 03/17/20 11:04 Fat Emulsion Intravenous (Intralipid 20%) 100 mls @ 8.3 mls/hr IV Q24H [facility] Last Admin: 03/17/20 16:07 Dose: 8.3 mls/hr Documented by: Norepinephrine Bitartrate 4 mg (/ Dextrose/Water) 250 mls @ 7.5 mls/hr IV TITRATE [facility]; Protocol Last Titration: 03/19/20 22:00 Dose: 0 mcg/min, 0 mls/hr Documented by: Sodium Chloride (Normal Saline) 1,000 mls @ 500 mls/hr IV ASDIRECTED [facility] Stop: 03/17/20 18:46 Propofol (Diprivan 100 Ml) Confirm Administered Dose 100 mls @ as directed .ROUTE .STK-MED ONE Stop: 03/18/20 10:45 Last Admin: 03/18/20 11:54 Dose: Not Given Documented by: Propofol (Diprivan 100 Ml) 100 mls @ 2.28 mls/hr IV TITRATE [facility]; Protocol Last Titration: 03/24/20 09:06 Dose: 0 mcg/kg/min, 0 mls/hr Documented by: Heparin Sodium (Porcine) 5,000 (units/ Sodium Chloride) 501 mls @ 1 mls/hr IV ASDIRECTED [facility] Last Admin: 03/21/20 12:04 Dose: 1 mls/hr Documented by: Levofloxacin/Dextrose 750 mg/ (Premix) 150 mls @ 100 mls/hr IV Q48H [facility] Last Admin: 03/21/20 17:42 Dose: 100 mls/hr Documented by: Meropenem 1 gm/ Sodium (Chloride) 100 mls @ 200 mls/hr IV Q12H [facility] Last Admin: 03/21/20 22:57 Dose: 200 mls/hr Documented by: Vancomycin HCl 1 gm/ Sodium (Chloride) 250 mls @ 167 mls/hr IV Q24H [facility] Last Admin: 03/19/20 11:27 Dose: 167 mls/hr Documented by: Acetaminophen 1,000 mg/ Premix 100 mls @ 400 mls/hr IV Q8H PRN PRN Reason: Fever Stop: 03/19/20 15:34 Last Admin: 03/19/20 07:48 Dose: 400 mls/hr Documented by: Acetaminophen 1,000 mg/ Premix 100 mls @ 400 mls/hr IV Q8H PRN PRN Reason: Fever Stop: 03/20/20 15:46 Magnesium Sulfate 2 gm/ Premix 50 mls @ 25 mls/hr IV Q6H [facility] Stop: 03/20/20 16:59 Last Admin: 03/20/20 14:35 Dose: 25 mls/hr Documented by: Vancomycin HCl 1 gm/ Sodium (Chloride) 250 mls @ 167 mls/hr IV Q18H [facility] Last Admin: 03/22/20 17:17 Dose: 167 mls/hr Documented by: Piperacillin/Tazobactam/ (Dextrose 2.25 gm/ Premix) 50 mls @ 100 mls/hr IV Q6H [facility] Last Admin: 03/24/20 04:36 Dose: 100 mls/hr Documented by: Vancomycin HCl 1 gm/ Sodium (Chloride) 250 mls @ 167 mls/hr IV Q18H [facility] Last Admin: 03/24/20 07:56 Dose: 167 mls/hr Documented by: Ibuprofen (Motrin) 400 mg PO ONETIME ONE Stop: 03/17/20 13:01 Last Admin: 03/17/20 12:59 Dose: 400 mg Documented by: Iopamidol (Isovue-300 (61%)) 112 ml IV ONETIME ONE Stop: 03/15/20 11:17 Last Admin: 03/15/20 19:33 Dose: Not Given Documented by: Iopamidol (Isovue-370 (76%)) 100 ml IV . DIRECTED [facility] Last Admin: 03/16/20 19:31 Dose: 100 ml Documented by: Lactobacillus Rhamnosus (Culturelle) 1 cap PO BID [facility] Last Admin: 03/18/20 08:56 Dose: 1 cap Documented by: Lidocaine/Epinephrine (Xylocaine 1% With Epinephrine 1:100,000) Confirm Administered Dose 50 ml .ROUTE .STK-MED ONE Stop: 03/17/20 10:55 Last Admin: 03/17/20 11:30 Dose: 3.5 ml Documented by: Lorazepam (Ativan) 1 mg IVPUSH ONETIME ONE Stop: 03/15/20 11:31 Last Admin: 03/15/20 11:40 Dose: 1 mg Documented by: Lorazepam (Ativan) 0.5 mg IVPUSH Q4H PRN PRN Reason: Nausea/Vomiting Lorazepam (Ativan) 0.5 mg IVPUSH ONETIME ONE Stop: 03/18/20 06:38 Last Admin: 03/18/20 07:04 Dose: 0.5 mg Documented by: Midazolam HCl (Versed 1 Mg/Ml) Confirm Administered Dose 2 mg .ROUTE .STK-MED ONE Stop: 03/17/20 09:56 Non-Formulary Medication (Total Parenteral Nutrition, Central) 1,000 ml .XX .Continue Order [facility] Stop: 03/17/20 08:01 Non-Formulary Medication (Total Parenteral Nutrition, Central) 0 ml IV ONETIME [facility] Stop: 03/20/20 12:01 Non-Formulary Medication (Total Parenteral Nutrition, Central) 0 ml IV ONETIME [facility] Stop: 03/21/20 12:00 Olanzapine (Zyprexa) 5 mg IM ONETIME ONE Stop: 03/24/20 11:01 Last Admin: 03/24/20 10:59 Dose: 5 mg Documented by: Oxycodone HCl (Oxycodone) 5 mg PO Q4H PRN PRN Reason: Pain Last Admin: 03/17/20 13:29 Dose: 5 mg Documented by: Pantoprazole Sodium (Protonix Iv) 40 mg IV Q12H [facility] Last Admin: 03/22/20 03:09 Dose: 40 mg Documented by: Propofol (Diprivan 20 Ml) Confirm Administered Dose 200 mg .ROUTE .STK-MED ONE Stop: 03/17/20 09:55 Propofol (Diprivan 20 Ml) Confirm Administered Dose 200 mg .ROUTE .STK-MED ONE Stop: 03/18/20 11:22 Sodium Chloride (Saline Flush) 10 ml FLUSH ASDIRECTED PRN PRN Reason: Keep Vein Open Last Admin: 03/15/20 10:11 Dose: 10 ml Documented by: Sodium Chloride (Saline Flush) 10 ml FLUSH ONETIME ONE Stop: 03/15/20 11:17 Last Admin: 03/16/20 19:31 Dose: 10 ml Documented by: Sodium Chloride (Normal Saline) 10 ml FLUSH ONETIME ONE Stop: 03/16/20 17:53 Last Admin: 03/16/20 20:53 Dose: Not Given Documented by: Succinylcholine Chloride (Quelicin) Confirm Administered Dose 200 mg .ROUTE .STK-MED ONE Stop: 03/18/20 11:22 Tizanidine HCl (Zanaflex) 4 mg PO Q6H PRN PRN Reason: muscle cramps Last Admin: 03/18/20 04:05 Dose: 4 mg Documented by: Vancomycin HCl (Vancomycin) 1 gm IV .PHARMACY TO DOSE [facility] Stop: 03/17/20 18:01 - Exam Quality Assessment: No: Supplemental Oxygen General: Alert, Cooperative, No Acute Distress Lungs: Normal Respiratory Effort, Crackles (rare left side) Cardiovascular: Regular Rate, Regular Rhythm GI/Abdominal Exam: Normal Bowel Sounds, Soft, No Distention, Tender Extremities: No Pedal Edema. No: Increased Warmth Skin: Warm, Dry Psy/Mental Status: Alert, Normal Affect Sepsis Event Note - Evaluation Sepsis Screening Result: No Definite Risk - Focused Exam Vital Signs: Vital Signs Temp Temp Pulse Resp BP Pulse Ox 03/28/20 07:00 36.3 C 87 18 122/76 94 L 03/28/20 03:00 36.5 C 90 20 148/77 H 92 L 03/27/20 23:00 36.9 C 98 20 157/75 H 90 L - Problem List & Annotations (1) SBO (small bowel obstruction) SNOMED Code(s): 634093688 Code(s): K56.609 - UNSP INTESTNL OBST, UNSP TO PARTIAL VERSUS COMPLETE OBST Status: Acute Current Visit: Yes (2) Crohn's disease SNOMED Code(s): 84804915 Code(s): K50.90 - CROHN'S DISEASE, UNSPECIFIED, WITHOUT COMPLICATIONS Status: Chronic Current Visit: No Qualifiers: Gastrointestinal tract location: unspecified location Digestive disease complication type: other complication Qualified Code(s): K50.918 - Crohn's disease, unspecified, with other complication (3) Pancytopenia SNOMED Code(s): 249608902 Code(s): D61.818 - OTHER PANCYTOPENIA Status: Chronic Current Visit: No (4) CKD (chronic kidney disease), stage III SNOMED Code(s): 707543299 Code(s): N18.3 - CHRONIC KIDNEY DISEASE, STAGE 3 (MODERATE) * DO NOT USE * Status: Chronic Current Visit: No Qualifiers: Chronic kidney disease stage 3 subtype: stage 3a (GFR 45-59) Qualified Code(s): N18.31 - Chronic kidney disease, stage 3a (5) History of left nephrectomy SNOMED Code(s): 87267917412608 Code(s): Z90.5 - ACQUIRED ABSENCE OF KIDNEY Status: Chronic Current Visit: No - Problem List Review Problem List Initiated/Reviewed/Updated: Yes - My Orders Last 24 Hours: My Active Orders 03/28/20 09:17 Magnesium Sulfate 2 GM in Water @ 12.5 MLS/HR ONETIME (50ml) Magnesium Sulfate /Water [Magnesium Sulfate in Water Premix] 2 gm in 50 ml IV ONETIME 03/28/20 09:18 Vital Signs [RC] Q4H 03/29/20 05:00 CBC W/O DIFF,HEMOGRAM [HEME] Timed (1) COMPREHENSIVE METABOLIC PN,CMP [CHEM] Timed - Plan Plan:: ASSESSMENT AND PLAN Bilateral pneumonia with septic shock-CT imaging gave appearance of septic emboli. Successfully extubated 03/24. Respiratory status stable and she has been doing well. -Continue ampicillin/sulbactam -Follow-up repeat cultures Hypoxic respiratory failure-secondary to bilateral pulmonary infiltrates. Stable since extubation and off oxygen. -Supplement oxygen if indicated Mixed delirium-periods of agitation as well as somnolence following extubation but now doing well. -Continue home medications Small bowel obstruction (resolved)-Long history of Crohn's disease with multiple abdominal surgeries and ileostomy. Ostomy output stable. -Symptomatic management of pain and nausea Elevated bilirubin, probable shock liver-US 03/21 showed some sludge and stones but no obvious cholecystitis. CT scan did not show acute pathology or evidence for obstruction. Bilirubin has steadily improved but has not normalized. -Recheck labs in a.m. Pancytopenia, hypersplenism?-chronic, stable. Stable so far. -Follow-up labs in a.m. -Transfuse hemoglobin less than 7 -Hold enoxaparin because of thrombocytopenia Stage III chronic kidney disease-history of left nephrectomy. Creatinine stable. Volume status appropriate. -Hold diuretic therapy today -Closely monitor urine output and renal function Maintenance issues - - DVT prophylaxis -SCDs - GI prophylaxis -Pepcid - Nutrition -regular diet Disposition -anticipate discharge home with home care after the hospital stay. Rad Pedersen MD
[2020-03-28] MEDS: Psyllium Seed (With Sugar) Wafer PO SCH ×3 (09:28→21:53)
[2020-03-28] MEDS: Lactobacillus Rhamnosus GG (Probiotic) Cap PO SCH ×2 (09:28→21:53)
[2020-03-28] MEDS: DULoxetine 30 MG Cap PO SCH (09:28)
[2020-03-28] MEDS: OLANZapine 5 MG Tab PO SCH ×2 (09:29→21:54)
[2020-03-28] MEDS ORDERED: Magnesium Sulfate/Water 2 GM/50 ML BAG IV ONE (10:00)
[2020-03-28] MEDS: LORazepam 0.5 MG Tab PO PRN ×2 (15:44→19:38)
[2020-03-28] MEDS: Famotidine 20 MG Tab PO SCH (21:53)
[2020-03-29] MEDS: Ampicillin/Sulbactam Na 1.5 GM in Sodium Chloride 0.9% 50 ML IV SCH ×4 (04:31→21:45)
[2020-03-29] MEDS: Atropine/Diphenoxylate 0.025-2.5 MG Tab PO SCH ×4 (04:31→21:45)
[2020-03-29] MEDS: Cholestyramine/Sucrose Powder 4 GM Packet PO SCH ×4 (05:21→21:42)
[2020-03-29] MEDS: HYDROmorphone 2 MG Tab PO PRN ×5 (05:40→20:28)
[2020-03-29] MEDS: HYDROmorphone 1 MG/ML Syringe IVPUSH PRN (07:29)
[2020-03-29] MEDS: Psyllium Seed (With Sugar) Wafer PO SCH ×3 (09:17→20:31)
[2020-03-29] MEDS: Lactobacillus Rhamnosus GG (Probiotic) Cap PO SCH ×2 (09:17→20:30)
[2020-03-29] MEDS: DULoxetine 30 MG Cap PO SCH (09:17)
[2020-03-29] MEDS: OLANZapine 5 MG Tab PO SCH ×2 (09:23→20:29)
--- NOTE | 2020-03-29 10:40 | PCM.PN ---
- General Info Date of Service: 03/29/20 Subjective Update: No acute events overnight. No fevers. She did require 2 L of supplemental oxygen overnight. Abdominal pain is at baseline. Bilirubin continues to improve. Kidney function stable. She has been up and walking around. Appetite is slowly improving. Functional Status: Reports: Pain Controlled, Tolerating Diet - Review of Systems General: Denies: Fever Gastrointestinal: Reports: Abdominal Pain - Patient Data Vitals - Most Recent: Last Vital Signs Temp 36.4 C 03/29/20 07:00 Pulse 97 03/29/20 07:00 Resp 18 03/29/20 07:00 BP 134/61 03/29/20 07:00 Pulse Ox 90 L 03/29/20 07:00 Weight - Most Recent: 74.9 kg I&O - Last 24 Hours: Intake & Output 03/28/20 03/29/20 03/29/20 22:59 06:59 14:59 Intake Total 50 350 Output Total 450 200 Balance -400 350 -200 Lab Results Last 24 Hours: Laboratory Results - last 24 hr 03/29/20 03/29/20 Range/Units 04:15 04:15 WBC 4.6 (4.5-11.0) K/uL RBC 2.78 L (3.30-5.50) M/uL Hgb 7.9 L (12.0-15.0) g/dL Hct 27.3 L (36.0-48.0) % MCV 98 (80-98) fL MCH 28 (27-31) pg MCHC 29 L (32-36) % Plt Count 146 L (150-400) K/uL Sodium 136 L (140-148) mmol/L Potassium 3.8 (3.6-5.2) mmol/L Chloride 103 (100-108) mmol/L Carbon Dioxide 23 (21-32) mmol/L Anion Gap 13.8 (5.0-14.0) mmol/L BUN 17 (7-18) mg/dL Creatinine 1.5 H (0.6-1.0) mg/dL Est Cr Clr Drug Dosing 38.68 mL/min Estimated GFR (MDRD) 35 L (>60) Glucose 94 (74-106) mg/dL Calcium 8.0 L (8.5-10.1) mg/dL Total Bilirubin 4.0 H (0.2-1.0) mg/dL AST 41 H (15-37) U/L ALT 29 (12-78) U/L Alkaline Phosphatase 183 H (46-116) U/L Total Protein 8.2 (6.4-8.2) g/dL Albumin 1.8 L (3.4-5.0) g/dL Globulin 6.4 H (2.3-3.5) g/dL Albumin/Globulin Ratio 0.3 L (1.2-2.2) Med Orders - Current: Current Medications Acetaminophen (Tylenol) 650 mg RECTAL Q4H PRN PRN Reason: Fever Cholestyramine Resin (Cholestyramine Packet) 4 gm PO QID [facility] Last Admin: 03/29/20 09:18 Dose: 4 gm Documented by: Diphenoxylate HCl/Atropine (Lomotil 0.025-2.5 Mg) 2 tab PO Q6H [facility] Last Admin: 03/29/20 09:23 Dose: 2 tab Documented by: Duloxetine HCl (Cymbalta) 60 mg PO DAILY [facility] Last Admin: 03/29/20 09:17 Dose: 60 mg Documented by: Famotidine (Pepcid) 20 mg PO BEDTIME [facility] Last Admin: 03/28/20 21:53 Dose: 20 mg Documented by: Heparin Sodium (Porcine) (Heparin Lock Flush 100 Units/Ml) 500 units FLUSH ASDIRECTED PRN PRN Reason: IV Use Last Admin: 03/26/20 09:05 Dose: 500 units Documented by: Hydromorphone HCl (Dilaudid) 1 mg IVPUSH Q2H PRN PRN Reason: Pain (severe 7-10) Last Admin: 03/29/20 07:29 Dose: 1 mg Documented by: Hydromorphone HCl (Dilaudid) 2 - 4 mg PO Q3H PRN PRN Reason: Pain Last Admin: 03/29/20 05:40 Dose: 4 mg Documented by: Multivitamins/Minerals 10 ml/Zinc 1 ml/ Amino Ac/Electrol/Dextrose/Calcium 1,011 mls @ 100 mls/hr IV .BY DURATION [facility] Last Admin: 03/21/20 11:19 Dose: 100 mls/hr Documented by: Amino Ac/Electrol/Dextrose/Calcium (Clinimix E 08/22) 1,000 mls @ 100 mls/hr IV .BY DURATION [facility] Last Admin: 03/22/20 06:03 Dose: 100 mls/hr Documented by: Ampicillin Sodium/Sulbactam (Sodium 1.5 gm/ Sodium Chloride) 50 mls @ 100 mls/hr IV Q6H [facility] Last Admin: 03/29/20 04:31 Dose: 100 mls/hr Documented by: Imipramine HCl (Imipramine Hcl) 200 mg PO BEDTIME [facility] Last Admin: 03/28/20 21:53 Dose: 200 mg Documented by: Lactobacillus Rhamnosus (Culturelle) 1 cap PO BID [facility] Last Admin: 03/29/20 09:17 Dose: 1 cap Documented by: Loperamide HCl (Imodium) 4 mg PO Q4H PRN PRN Reason: Diarrhea Lorazepam (Ativan) 0.5 mg IVPUSH Q2H PRN PRN Reason: Anxiety Last Admin: 03/24/20 09:36 Dose: 0.5 mg Documented by: Lorazepam (Ativan) 0.5 mg PO Q4H PRN PRN Reason: Anxiety Last Admin: 03/28/20 19:38 Dose: 0.5 mg Documented by: Olanzapine (Zyprexa) 5 mg PO BID [facility] Last Admin: 03/29/20 09:23 Dose: 5 mg Documented by: Ondansetron HCl (Zofran) 4 mg IV Q6H PRN PRN Reason: Nausea/Vomiting Last Admin: 03/23/20 01:58 Dose: 4 mg Documented by: Ondansetron HCl (Zofran Odt) 4 mg PO Q6H PRN PRN Reason: Nausea able to take PO Psyllium Husk (Metamucil Fiber Wafer) 2 each PO TID [facility] Last Admin: 03/29/20 09:17 Dose: 2 each Documented by: Discontinued Medications Acetaminophen (Tylenol Extra Strength) 1,000 mg PO ONETIME ONE Stop: 03/15/20 11:16 Last Admin: 03/15/20 11:26 Dose: 1,000 mg Documented by: Acetaminophen (Tylenol) 650 mg PO Q4H PRN PRN Reason: Pain (Mild 1-3)/fever Last Admin: 03/17/20 19:56 Dose: 650 mg Documented by: Bupivacaine HCl (Marcaine 0.5%) Confirm Administered Dose 50 ml .ROUTE .STK-MED ONE Stop: 03/17/20 10:55 Last Admin: 03/17/20 11:30 Dose: 3.5 ml Documented by: Duloxetine HCl (Cymbalta) 60 mg PO DAILY [facility] Last Admin: 03/26/20 07:07 Dose: Not Given Documented by: Enoxaparin Sodium (Lovenox) 40 mg SUBCUT Q24H [facility] Last Admin: 03/17/20 16:05 Dose: 40 mg Documented by: Famotidine (Pepcid) 20 mg IVPUSH Q24H [facility] Last Admin: 03/24/20 16:04 Dose: 20 mg Documented by: Fentanyl (Sublimaze) Confirm Administered Dose 100 mcg .ROUTE .STK-MED ONE Stop: 03/17/20 09:55 Furosemide (Lasix) 40 mg IVPUSH NOW ONE Stop: 03/19/20 13:01 Last Admin: 03/19/20 13:40 Dose: 40 mg Documented by: Furosemide (Lasix) 40 mg IVPUSH NOW ONE Stop: 03/20/20 08:21 Last Admin: 03/20/20 08:36 Dose: 40 mg Documented by: Furosemide (Lasix) 40 mg IVPUSH NOW ONE Stop: 03/20/20 21:01 Last Admin: 03/20/20 22:16 Dose: 40 mg Documented by: Furosemide (Lasix) 40 mg IVPUSH NOW ONE Stop: 03/22/20 09:01 Last Admin: 03/22/20 08:30 Dose: 40 mg Documented by: Heparin Sodium (Porcine) (Heparin Lock Flush 100 Units/Ml) Confirm Administered Dose 500 units .ROUTE .STK-MED ONE Stop: 03/17/20 10:55 Last Admin: 03/17/20 11:40 Dose: 500 units Documented by: Heparin Sodium (Porcine) (Heparin Sodium) Confirm Administered Dose 5,000 units .ROUTE .STK-MED ONE Stop: 03/18/20 10:59 Last Admin: 03/18/20 11:54 Dose: Not Given Documented by: Hydromorphone HCl (Dilaudid) 0.5 mg IVPUSH ONETIME ONE Stop: 03/15/20 10:00 Last Admin: 03/15/20 10:10 Dose: 0.5 mg Documented by: Hydromorphone HCl (Dilaudid) 0.5 mg IVPUSH ONETIME ONE Stop: 03/15/20 11:10 Last Admin: 03/15/20 11:15 Dose: 0.5 mg Documented by: Hydromorphone HCl (Dilaudid) 0.5 mg IVPUSH ONETIME ONE Stop: 03/15/20 13:39 Last Admin: 03/15/20 14:04 Dose: 0.5 mg Documented by: Hydromorphone HCl (Dilaudid) 1 mg IVPUSH Q2H PRN PRN Reason: Pain (severe 7-10) Last Admin: 03/16/20 09:43 Dose: 1 mg Documented by: Hydromorphone HCl (Dilaudid) 0.5 mg IVPUSH Q3H PRN PRN Reason: Pain Last Admin: 03/23/20 09:11 Dose: 0.5 mg Documented by: Hydromorphone HCl (Dilaudid) 0.5 mg IVPUSH Q2H PRN PRN Reason: Pain Last Admin: 03/24/20 08:37 Dose: 0.5 mg Documented by: Sodium Chloride (Normal Saline) 1,000 mls @ 500 mls/hr IV ASDIRECTED [facility] Last Admin: 03/15/20 11:13 Dose: 500 mls/hr Documented by: Magnesium Sulfate (Magnesium Sulfate In Water Premix) 2 gm in 50 mls @ 25 mls/hr IV ONETIME ONE Stop: 03/15/20 12:43 Last Admin: 03/15/20 11:14 Dose: 25 mls/hr Documented by: Sodium Chloride (Normal Saline) 74 mls @ 3 mls/sec IV ASDIRECTED [facility] Stop: 03/15/20 11:31 Lactated Ringer's (Ringers, Lactated) 1,000 mls @ 0 mls/hr IV ASDIRECTED [facility] Last Admin: 03/16/20 09:48 Dose: 100 mls/hr Documented by: Magnesium Sulfate (Magnesium Sulfate In Water Premix) 2 gm in 50 mls @ 12.5 mls/hr IV Q6H [facility] Stop: 03/16/20 05:59 Last Admin: 03/16/20 02:41 Dose: 12.5 mls/hr Documented by: Fat Emulsion Intravenous (Intralipid 20%) 100 mls @ 8.3 mls/hr IV Q24H [facility] Last Admin: 03/16/20 16:01 Dose: 8.3 mls/hr Documented by: Multivitamins/Minerals 10 ml/Zinc 1 ml/ Amino Ac/Electrol/Dextrose/Calcium 1,011 mls @ 100 mls/hr IV .BY DURATION [facility] Last Admin: 03/16/20 12:07 Dose: 100 mls/hr Documented by: Amino Ac/Electrol/Dextrose/Calcium (Clinimix E 5/15) 1,000 mls @ 100 mls/hr IV .BY DURATION [facility] Last Admin: 03/16/20 21:55 Dose: 100 mls/hr Documented by: Meropenem 1 gm/ Sodium (Chloride) 100 mls @ 200 mls/hr IV Q8H [facility] Last Admin: 03/18/20 09:56 Dose: 200 mls/hr Documented by: Levofloxacin/Dextrose 750 mg/ (Premix) 150 mls @ 100 mls/hr IV Q24H [facility] Last Admin: 03/17/20 19:06 Dose: 100 mls/hr Documented by: Sodium Chloride (Normal Saline) 100 mls @ 3 mls/sec IV ASDIRECTED [facility] Last Admin: 03/16/20 19:31 Dose: 3 mls/sec Documented by: Vancomycin HCl 2 gm/ Sodium (Chloride) 500 mls @ 250 mls/hr IV ONETIME ONE Stop: 03/16/20 21:59 Last Admin: 03/16/20 22:41 Dose: 250 mls/hr Documented by: Vancomycin HCl 1 gm/ Sodium (Chloride) 250 mls @ 166.667 mls/hr IV Q12H [facility] Vancomycin HCl 1 gm/ Sodium (Chloride) 250 mls @ 165 mls/hr IV Q12H [facility] Last Admin: 03/18/20 10:47 Dose: 165 mls/hr Documented by: Sodium Chloride (Normal Saline) 1,000 mls @ 100 mls/hr IV ASDIRECTED [facility] Last Admin: 03/18/20 00:39 Dose: 100 mls/hr Documented by: Sodium Chloride (Normal Saline) 500 mls @ 500 mls/hr IV .BOLUS ONE Stop: 03/17/20 11:41 Last Admin: 03/17/20 10:56 Dose: 500 mls/hr Documented by: Lidocaine HCl (Xylocaine-Mpf 1%) Confirm Administered Dose 2 mls @ as directed .ROUTE .[facility]-MED ONE Stop: 03/17/20 11:04 Fat Emulsion Intravenous (Intralipid 20%) 100 mls @ 8.3 mls/hr IV Q24H [facility] Last Admin: 03/17/20 16:07 Dose: 8.3 mls/hr Documented by: Norepinephrine Bitartrate 4 mg (/ Dextrose/Water) 250 mls @ 7.5 mls/hr IV TITRATE [facility]; Protocol Last Titration: 03/19/20 22:00 Dose: 0 mcg/min, 0 mls/hr Documented by: Sodium Chloride (Normal Saline) 1,000 mls @ 500 mls/hr IV ASDIRECTED [facility] Stop: 03/17/20 18:46 Propofol (Diprivan 100 Ml) Confirm Administered Dose 100 mls @ as directed .ROUTE .STK-MED ONE Stop: 03/18/20 10:45 Last Admin: 03/18/20 11:54 Dose: Not Given Documented by: Propofol (Diprivan 100 Ml) 100 mls @ 2.28 mls/hr IV TITRATE [facility]; Protocol Last Titration: 03/24/20 09:06 Dose: 0 mcg/kg/min, 0 mls/hr Documented by: Heparin Sodium (Porcine) 5,000 (units/ Sodium Chloride) 501 mls @ 1 mls/hr IV ASDIRECTED [facility] Last Admin: 03/21/20 12:04 Dose: 1 mls/hr Documented by: Levofloxacin/Dextrose 750 mg/ (Premix) 150 mls @ 100 mls/hr IV Q48H [facility] Last Admin: 03/21/20 17:42 Dose: 100 mls/hr Documented by: Meropenem 1 gm/ Sodium (Chloride) 100 mls @ 200 mls/hr IV Q12H [facility] Last Admin: 03/21/20 22:57 Dose: 200 mls/hr Documented by: Vancomycin HCl 1 gm/ Sodium (Chloride) 250 mls @ 167 mls/hr IV Q24H [facility] Last Admin: 03/19/20 11:27 Dose: 167 mls/hr Documented by: Acetaminophen 1,000 mg/ Premix 100 mls @ 400 mls/hr IV Q8H PRN PRN Reason: Fever Stop: 03/19/20 15:34 Last Admin: 03/19/20 07:48 Dose: 400 mls/hr Documented by: Acetaminophen 1,000 mg/ Premix 100 mls @ 400 mls/hr IV Q8H PRN PRN Reason: Fever Stop: 03/20/20 15:46 Magnesium Sulfate 2 gm/ Premix 50 mls @ 25 mls/hr IV Q6H [facility] Stop: 03/20/20 16:59 Last Admin: 03/20/20 14:35 Dose: 25 mls/hr Documented by: Vancomycin HCl 1 gm/ Sodium (Chloride) 250 mls @ 167 mls/hr IV Q18H [facility] Last Admin: 03/22/20 17:17 Dose: 167 mls/hr Documented by: Piperacillin/Tazobactam/ (Dextrose 2.25 gm/ Premix) 50 mls @ 100 mls/hr IV Q6H [facility] Last Admin: 03/24/20 04:36 Dose: 100 mls/hr Documented by: Vancomycin HCl 1 gm/ Sodium (Chloride) 250 mls @ 167 mls/hr IV Q18H [facility] Last Admin: 03/24/20 07:56 Dose: 167 mls/hr Documented by: Magnesium Sulfate (Magnesium Sulfate In Water Premix) 2 gm in 50 mls @ 25 mls/hr IV ONETIME ONE Stop: 03/28/20 11:59 Last Admin: 03/28/20 10:19 Dose: 25 mls/hr Documented by: Ibuprofen (Motrin) 400 mg PO ONETIME ONE Stop: 03/17/20 13:01 Last Admin: 03/17/20 12:59 Dose: 400 mg Documented by: Iopamidol (Isovue-300 (61%)) 112 ml IV ONETIME ONE Stop: 03/15/20 11:17 Last Admin: 03/15/20 19:33 Dose: Not Given Documented by: Iopamidol (Isovue-370 (76%)) 100 ml IV . DIRECTED [facility] Last Admin: 03/16/20 19:31 Dose: 100 ml Documented by: Lactobacillus Rhamnosus (Culturelle) 1 cap PO BID [facility] Last Admin: 03/18/20 08:56 Dose: 1 cap Documented by: Lidocaine/Epinephrine (Xylocaine 1% With Epinephrine 1:100,000) Confirm Administered Dose 50 ml .ROUTE .STK-MED ONE Stop: 03/17/20 10:55 Last Admin: 03/17/20 11:30 Dose: 3.5 ml Documented by: Lorazepam (Ativan) 1 mg IVPUSH ONETIME ONE Stop: 03/15/20 11:31 Last Admin: 03/15/20 11:40 Dose: 1 mg Documented by: Lorazepam (Ativan) 0.5 mg IVPUSH Q4H PRN PRN Reason: Nausea/Vomiting Lorazepam (Ativan) 0.5 mg IVPUSH ONETIME ONE Stop: 03/18/20 06:38 Last Admin: 03/18/20 07:04 Dose: 0.5 mg Documented by: Midazolam HCl (Versed 1 Mg/Ml) Confirm Administered Dose 2 mg .ROUTE .STK-MED ONE Stop: 03/17/20 09:56 Non-Formulary Medication (Total Parenteral Nutrition, Central) 1,000 ml .XX .Continue Order [facility] Stop: 03/17/20 08:01 Non-Formulary Medication (Total Parenteral Nutrition, Central) 0 ml IV ONETIME [facility] Stop: 03/20/20 12:01 Non-Formulary Medication (Total Parenteral Nutrition, Central) 0 ml IV ONETIME [facility] Stop: 03/21/20 12:00 Olanzapine (Zyprexa) 5 mg IM ONETIME ONE Stop: 03/24/20 11:01 Last Admin: 03/24/20 10:59 Dose: 5 mg Documented by: Oxycodone HCl (Oxycodone) 5 mg PO Q4H PRN PRN Reason: Pain Last Admin: 03/17/20 13:29 Dose: 5 mg Documented by: Pantoprazole Sodium (Protonix Iv) 40 mg IV Q12H [facility] Last Admin: 03/22/20 03:09 Dose: 40 mg Documented by: Propofol (Diprivan 20 Ml) Confirm Administered Dose 200 mg .ROUTE .STK-MED ONE Stop: 03/17/20 09:55 Propofol (Diprivan 20 Ml) Confirm Administered Dose 200 mg .ROUTE .STK-MED ONE Stop: 03/18/20 11:22 Sodium Chloride (Saline Flush) 10 ml FLUSH ASDIRECTED PRN PRN Reason: Keep Vein Open Last Admin: 03/15/20 10:11 Dose: 10 ml Documented by: Sodium Chloride (Saline Flush) 10 ml FLUSH ONETIME ONE Stop: 03/15/20 11:17 Last Admin: 03/16/20 19:31 Dose: 10 ml Documented by: Sodium Chloride (Normal Saline) 10 ml FLUSH ONETIME ONE Stop: 03/16/20 17:53 Last Admin: 03/16/20 20:53 Dose: Not Given Documented by: Succinylcholine Chloride (Quelicin) Confirm Administered Dose 200 mg .ROUTE .STK-MED ONE Stop: 03/18/20 11:22 Tizanidine HCl (Zanaflex) 4 mg PO Q6H PRN PRN Reason: muscle cramps Last Admin: 03/18/20 04:05 Dose: 4 mg Documented by: Vancomycin HCl (Vancomycin) 1 gm IV .PHARMACY TO DOSE [facility] Stop: 03/17/20 18:01 - Exam Quality Assessment: Supplemental Oxygen General: Alert, Cooperative, No Acute Distress Lungs: Normal Respiratory Effort, Crackles (rare left side ) Cardiovascular: Regular Rate, Regular Rhythm GI/Abdominal Exam: Normal Bowel Sounds, Soft, No Distention Extremities: No Pedal Edema. No: Increased Warmth Skin: Warm, Dry Psy/Mental Status: Alert, Normal Affect Sepsis Event Note - Evaluation Sepsis Screening Result: No Definite Risk - Focused Exam Vital Signs: Vital Signs Temp Pulse Resp BP Pulse Ox 03/29/20 07:00 36.4 C 97 18 134/61 90 L 03/29/20 04:33 36.7 C 80 18 115/62 93 L - Problem List & Annotations (1) SBO (small bowel obstruction) SNOMED Code(s): 058187954 Code(s): K56.609 - UNSP INTESTNL OBST, UNSP TO PARTIAL VERSUS COMPLETE OBST Status: Acute Current Visit: Yes (2) Crohn's disease SNOMED Code(s): 76856055 Code(s): K50.90 - CROHN'S DISEASE, UNSPECIFIED, WITHOUT COMPLICATIONS Status: Chronic Current Visit: No Qualifiers: Gastrointestinal tract location: unspecified location Digestive disease complication type: other complication Qualified Code(s): K50.918 - Crohn's disease, unspecified, with other complication (3) Pancytopenia SNOMED Code(s): 970863562 Code(s): D61.818 - OTHER PANCYTOPENIA Status: Chronic Current Visit: No (4) CKD (chronic kidney disease), stage III SNOMED Code(s): 027270100 Code(s): N18.3 - CHRONIC KIDNEY DISEASE, STAGE 3 (MODERATE) * DO NOT USE * Status: Chronic Current Visit: No Qualifiers: Chronic kidney disease stage 3 subtype: stage 3a (GFR 45-59) Qualified Code(s): N18.31 - Chronic kidney disease, stage 3a (5) History of left nephrectomy SNOMED Code(s): 66633510555286 Code(s): Z90.5 - ACQUIRED ABSENCE OF KIDNEY Status: Chronic Current Visit: No - Problem List Review Problem List Initiated/Reviewed/Updated: Yes - My Orders Last 24 Hours: My Active Orders 03/29/20 Dinner NPO After Midnight [Nothing per Oral After Midnight Diet] [DIET] 03/30/20 05:00 CBC W/O DIFF,HEMOGRAM [HEME] Timed (1) COMPREHENSIVE METABOLIC PN,CMP [CHEM] Timed - Plan Plan:: ASSESSMENT AND PLAN Bilateral pneumonia with septic shock-CT imaging gave appearance of septic emboli. Successfully extubated 03/24. Respiratory status stable and she has been doing well. -Continue ampicillin/sulbactam (she has completed 2 weeks of therapy) -Follow-up repeat cultures Hypoxic respiratory failure-secondary to bilateral pulmonary infiltrates. Stable since extubation and off oxygen. -Supplement oxygen if indicated Mixed delirium-periods of agitation as well as somnolence following extubation but now doing well. -Continue home medications Small bowel obstruction (resolved)-Long history of Crohn's disease with multiple abdominal surgeries and ileostomy. Ostomy output stable. -Symptomatic management of pain and nausea Elevated bilirubin, probable shock liver-US 03/21 showed some sludge and stones but no obvious cholecystitis. CT scan did not show acute pathology or evidence for obstruction. Bilirubin has steadily improved but has not normalized. -Recheck labs in a.m. Pancytopenia, hypersplenism?-chronic, stable. Stable so far. -Follow-up labs in a.m. -Transfuse hemoglobin less than 7 -Hold enoxaparin because of thrombocytopenia Stage III chronic kidney disease-history of left nephrectomy. Creatinine stable. Volume status appropriate. -Hold diuretic therapy today -Closely monitor urine output and renal function IV access-currently has a triple-lumen in place. The plan is for her to get a James placed tomorrow morning. She will be n.p.o. after midnight. Maintenance issues - - DVT prophylaxis -SCDs - GI prophylaxis -Pepcid - Nutrition -regular diet Disposition -anticipate discharge home with home care after the hospital stay. Rad Pedersen MD
[2020-03-29] MEDS: Famotidine 20 MG Tab PO SCH (20:31)
[2020-03-29] MEDS: LORazepam 0.5 MG Tab PO PRN (21:49)
[2020-03-29] MEDS: tiZANidine 4 MG Tab PO PRN (22:48)
[2020-03-30] MEDS: HYDROmorphone 2 MG Tab PO PRN ×6 (01:02→21:57)
[2020-03-30] MEDS: Atropine/Diphenoxylate 0.025-2.5 MG Tab PO SCH ×4 (04:05→22:03)
[2020-03-30] MEDS: Ampicillin/Sulbactam Na 1.5 GM in Sodium Chloride 0.9% 50 ML IV SCH ×3 (04:05→15:59)
[2020-03-30] MEDS: Cholestyramine/Sucrose Powder 4 GM Packet PO SCH ×4 (06:25→21:56)
[2020-03-30] MEDS ORDERED: Bupivacaine 0.5% 50 ML MDV ONE (07:08)
[2020-03-30] MEDS ORDERED: Lidocaine 1% with EPINEPHrine 1:100,000 50 ML MDV ONE (07:09)
[2020-03-30] MEDS ORDERED: Propofol 200 MG/20 ML SDV ONE (07:48)
[2020-03-30] MEDS ORDERED: fentaNYL 100 MCG/2 ML SDV ONE (07:48)
[2020-03-30] MEDS ORDERED: Midazolam 1 MG/ML 2 ML SDV ONE (07:48)
--- NOTE | 2020-03-30 07:59 | PN ---
DATE OF SERVICE: 03/30/2020 SUBJECTIVE: Aline is n.p.o. She will be having a port placed and a triple-lumen removed. Her vital signs have been stable. She has no questions or concerns. OBJECTIVE: VITAL SIGNS: TPR; 98.4, 100, 16. Blood pressure 131/61. HEART: Regular rate and rhythm. LUNGS: Clear. ASSESSMENT: Inadequate vein access, need for long-term IV therapy. PLAN: After preoperative evaluation and discussion of possible risks and possible complications per Shamar Reno, the patient elected to proceed with surgical procedure. We will evaluate p.r.n. or in a.m. Postop orders will be written after procedure. Aline Landeros PA-C /[id number]
[2020-03-30] MEDS: OLANZapine 5 MG Tab PO SCH ×2 (09:53→21:58)
[2020-03-30] MEDS: Psyllium Seed (With Sugar) Wafer PO SCH ×3 (09:53→21:56)
[2020-03-30] MEDS: Lactobacillus Rhamnosus GG (Probiotic) Cap PO SCH ×2 (09:53→21:57)
[2020-03-30] MEDS: DULoxetine 30 MG Cap PO SCH (09:54)
[2020-03-30] MEDS ORDERED: LORazepam 0.5 MG Tab PO PRN (11:49)
--- NOTE | 2020-03-30 11:55 | PCM.PN ---
- General Info Date of Service: 03/30/20 Subjective Update: Ms. Foley has been stable over the last 24 hours. Respiratory status remains very good and she has been afebrile. New James catheter was placed today on the left and her triple-lumen central line on the right will be removed. Functional Status: Reports: Tolerating Diet, Ambulating, Urinating - Review of Systems General: Reports: Weakness, Fatigue. Denies: Fever, Chills Pulmonary: Reports: No Symptoms Cardiovascular: Reports: No Symptoms Gastrointestinal: Reports: No Symptoms Musculoskeletal: Reports: No Symptoms - Patient Data Vitals - Most Recent: Last Vital Signs Temp 97.3 F 03/30/20 09:54 Pulse 90 03/30/20 10:52 Resp 16 03/30/20 10:52 BP 111/55 L 03/30/20 10:52 Pulse Ox 94 L 03/30/20 10:52 Weight - Most Recent: 165 lb 2.02 oz I&O - Last 24 Hours: Intake & Output 03/29/20 03/30/20 03/30/20 22:59 06:59 14:59 Intake Total 790 50 50 Balance 790 50 50 Lab Results Last 24 Hours: Laboratory Results - last 24 hr 03/30/20 03/30/20 Range/Units 04:05 04:05 WBC 5.5 (4.5-11.0) K/uL RBC 2.83 L (3.30-5.50) M/uL Hgb 8.2 L (12.0-15.0) g/dL Hct 27.8 L (36.0-48.0) % MCV 98 (80-98) fL MCH 29 (27-31) pg MCHC 30 L (32-36) % Plt Count 165 (150-400) K/uL Sodium 133 L (140-148) mmol/L Potassium 4.2 (3.6-5.2) mmol/L Chloride 101 (100-108) mmol/L Carbon Dioxide 23 (21-32) mmol/L Anion Gap 13.2 (5.0-14.0) mmol/L BUN 21 H (7-18) mg/dL Creatinine 1.6 H (0.6-1.0) mg/dL Est Cr Clr Drug Dosing 36.26 mL/min Estimated GFR (MDRD) 33 L (>60) Glucose 109 H (74-106) mg/dL Calcium 8.1 L (8.5-10.1) mg/dL Total Bilirubin 3.6 H (0.2-1.0) mg/dL AST 37 (15-37) U/L ALT 30 (12-78) U/L Alkaline Phosphatase 184 H (46-116) U/L Total Protein 8.5 H (6.4-8.2) g/dL Albumin 1.9 L (3.4-5.0) g/dL Globulin 6.6 H (2.3-3.5) g/dL Albumin/Globulin Ratio 0.3 L (1.2-2.2) Med Orders - Current: Current Medications Acetaminophen (Tylenol) 650 mg RECTAL Q4H PRN PRN Reason: Fever Cholestyramine Resin (Cholestyramine Packet) 4 gm PO QID [facility] Last Admin: 03/30/20 09:54 Dose: Not Given Documented by: Diphenoxylate HCl/Atropine (Lomotil 0.025-2.5 Mg) 2 tab PO Q6H [facility] Last Admin: 03/30/20 10:01 Dose: 2 tab Documented by: Duloxetine HCl (Cymbalta) 60 mg PO DAILY [facility] Last Admin: 03/30/20 09:54 Dose: 60 mg Documented by: Famotidine (Pepcid) 20 mg PO BEDTIME [facility] Last Admin: 03/29/20 20:31 Dose: 20 mg Documented by: Heparin Sodium (Porcine) (Heparin Lock Flush 100 Units/Ml) 500 units FLUSH ASDIRECTED PRN PRN Reason: IV Use Last Admin: 03/26/20 09:05 Dose: 500 units Documented by: Hydromorphone HCl (Dilaudid) 2 mg PO Q4H PRN PRN Reason: Pain Multivitamins/Minerals 10 ml/Zinc 1 ml/ Amino Ac/Electrol/Dextrose/Calcium 1,011 mls @ 100 mls/hr IV .BY DURATION [facility] Last Admin: 03/21/20 11:19 Dose: 100 mls/hr Documented by: Amino Ac/Electrol/Dextrose/Calcium (Clinimix E 5/15) 1,000 mls @ 100 mls/hr IV .BY DURATION [facility] Last Admin: 03/22/20 06:03 Dose: 100 mls/hr Documented by: Ampicillin Sodium/Sulbactam (Sodium 1.5 gm/ Sodium Chloride) 50 mls @ 100 mls/hr IV Q6H [facility] Last Admin: 03/30/20 10:04 Dose: 100 mls/hr Documented by: Imipramine HCl (Imipramine Hcl) 200 mg PO BEDTIME [facility] Last Admin: 03/29/20 20:30 Dose: 200 mg Documented by: Lactobacillus Rhamnosus (Culturelle) 1 cap PO BID [facility] Last Admin: 03/30/20 09:53 Dose: 1 cap Documented by: Loperamide HCl (Imodium) 4 mg PO Q4H PRN PRN Reason: Diarrhea Lorazepam (Ativan) 0.5 mg PO Q6H PRN PRN Reason: Anxiety Olanzapine (Zyprexa) 5 mg PO BID [facility] Last Admin: 03/30/20 09:53 Dose: 5 mg Documented by: Ondansetron HCl (Zofran) 4 mg IV Q6H PRN PRN Reason: Nausea/Vomiting Last Admin: 03/23/20 01:58 Dose: 4 mg Documented by: Ondansetron HCl (Zofran Odt) 4 mg PO Q6H PRN PRN Reason: Nausea able to take PO Psyllium Husk (Metamucil Fiber Wafer) 2 each PO TID [facility] Last Admin: 03/30/20 09:53 Dose: 2 each Documented by: Tizanidine HCl (Zanaflex) 4 mg PO BID PRN PRN Reason: Spasms Last Admin: 03/29/20 22:48 Dose: 4 mg Documented by: Discontinued Medications Acetaminophen (Tylenol Extra Strength) 1,000 mg PO ONETIME ONE Stop: 03/15/20 11:16 Last Admin: 03/15/20 11:26 Dose: 1,000 mg Documented by: Acetaminophen (Tylenol) 650 mg PO Q4H PRN PRN Reason: Pain (Mild 1-3)/fever Last Admin: 03/17/20 19:56 Dose: 650 mg Documented by: Bupivacaine HCl (Marcaine 0.5%) Confirm Administered Dose 50 ml .ROUTE .STK-MED ONE Stop: 03/17/20 10:55 Last Admin: 03/17/20 11:30 Dose: 3.5 ml Documented by: Bupivacaine HCl (Marcaine 0.5%) Confirm Administered Dose 50 ml .ROUTE .STK-MED ONE Stop: 03/30/20 07:09 Last Admin: 03/30/20 09:56 Dose: 5 ml Documented by: Duloxetine HCl (Cymbalta) 60 mg PO DAILY [facility] Last Admin: 03/26/20 07:07 Dose: Not Given Documented by: Enoxaparin Sodium (Lovenox) 40 mg SUBCUT Q24H [facility] Last Admin: 03/17/20 16:05 Dose: 40 mg Documented by: Famotidine (Pepcid) 20 mg IVPUSH Q24H [facility] Last Admin: 03/24/20 16:04 Dose: 20 mg Documented by: Fentanyl (Sublimaze) Confirm Administered Dose 100 mcg .ROUTE .STK-MED ONE Stop: 03/17/20 09:55 Fentanyl (Sublimaze) Confirm Administered Dose 100 mcg .ROUTE .STK-MED ONE Stop: 03/30/20 07:49 Furosemide (Lasix) 40 mg IVPUSH NOW ONE Stop: 03/19/20 13:01 Last Admin: 03/19/20 13:40 Dose: 40 mg Documented by: Furosemide (Lasix) 40 mg IVPUSH NOW ONE Stop: 03/20/20 08:21 Last Admin: 03/20/20 08:36 Dose: 40 mg Documented by: Furosemide (Lasix) 40 mg IVPUSH NOW ONE Stop: 03/20/20 21:01 Last Admin: 03/20/20 22:16 Dose: 40 mg Documented by: Furosemide (Lasix) 40 mg IVPUSH NOW ONE Stop: 03/22/20 09:01 Last Admin: 03/22/20 08:30 Dose: 40 mg Documented by: Heparin Sodium (Porcine) (Heparin Lock Flush 100 Units/Ml) Confirm Administered Dose 500 units .ROUTE .STK-MED ONE Stop: 03/17/20 10:55 Last Admin: 03/17/20 11:40 Dose: 500 units Documented by: Heparin Sodium (Porcine) (Heparin Sodium) Confirm Administered Dose 5,000 units .ROUTE .STK-MED ONE Stop: 03/18/20 10:59 Last Admin: 03/18/20 11:54 Dose: Not Given Documented by: Heparin Sodium (Porcine) (Heparin Lock Flush 100 Units/Ml) Confirm Administered Dose 1,500 units .ROUTE .STK-MED ONE Stop: 03/30/20 07:10 Last Admin: 03/30/20 09:57 Dose: 1,500 units Documented by: Hydromorphone HCl (Dilaudid) 0.5 mg IVPUSH ONETIME ONE Stop: 03/15/20 10:00 Last Admin: 03/15/20 10:10 Dose: 0.5 mg Documented by: Hydromorphone HCl (Dilaudid) 0.5 mg IVPUSH ONETIME ONE Stop: 03/15/20 11:10 Last Admin: 03/15/20 11:15 Dose: 0.5 mg Documented by: Hydromorphone HCl (Dilaudid) 0.5 mg IVPUSH ONETIME ONE Stop: 03/15/20 13:39 Last Admin: 03/15/20 14:04 Dose: 0.5 mg Documented by: Hydromorphone HCl (Dilaudid) 1 mg IVPUSH Q2H PRN PRN Reason: Pain (severe 7-10) Last Admin: 03/16/20 09:43 Dose: 1 mg Documented by: Hydromorphone HCl (Dilaudid) 0.5 mg IVPUSH Q3H PRN PRN Reason: Pain Last Admin: 03/23/20 09:11 Dose: 0.5 mg Documented by: Hydromorphone HCl (Dilaudid) 0.5 mg IVPUSH Q2H PRN PRN Reason: Pain Last Admin: 03/24/20 08:37 Dose: 0.5 mg Documented by: Hydromorphone HCl (Dilaudid) 1 mg IVPUSH Q2H PRN PRN Reason: Pain (severe 7-10) Last Admin: 03/29/20 07:29 Dose: 1 mg Documented by: Hydromorphone HCl (Dilaudid) 2 - 4 mg PO Q3H PRN PRN Reason: Pain Last Admin: 03/30/20 07:07 Dose: 4 mg Documented by: Sodium Chloride (Normal Saline) 1,000 mls @ 500 mls/hr IV ASDIRECTED [facility] Last Admin: 03/15/20 11:13 Dose: 500 mls/hr Documented by: Magnesium Sulfate (Magnesium Sulfate In Water Premix) 2 gm in 50 mls @ 25 mls/hr IV ONETIME ONE Stop: 03/15/20 12:43 Last Admin: 03/15/20 11:14 Dose: 25 mls/hr Documented by: Sodium Chloride (Normal Saline) 74 mls @ 3 mls/sec IV ASDIRECTED [facility] Stop: 03/15/20 11:31 Lactated Ringer's (Ringers, Lactated) 1,000 mls @ 0 mls/hr IV ASDIRECTED [facility] Last Admin: 03/16/20 09:48 Dose: 100 mls/hr Documented by: Magnesium Sulfate (Magnesium Sulfate In Water Premix) 2 gm in 50 mls @ 12.5 mls/hr IV Q6H [facility] Stop: 03/16/20 05:59 Last Admin: 03/16/20 02:41 Dose: 12.5 mls/hr Documented by: Fat Emulsion Intravenous (Intralipid 20%) 100 mls @ 8.3 mls/hr IV Q24H [facility] Last Admin: 03/16/20 16:01 Dose: 8.3 mls/hr Documented by: Multivitamins/Minerals 10 ml/Zinc 1 ml/ Amino Ac/Electrol/Dextrose/Calcium 1,011 mls @ 100 mls/hr IV .BY DURATION [facility] Last Admin: 03/16/20 12:07 Dose: 100 mls/hr Documented by: Amino Ac/Electrol/Dextrose/Calcium (Clinimix E 5/15) 1,000 mls @ 100 mls/hr IV .BY DURATION [facility] Last Admin: 03/16/20 21:55 Dose: 100 mls/hr Documented by: Meropenem 1 gm/ Sodium (Chloride) 100 mls @ 200 mls/hr IV Q8H [facility] Last Admin: 03/18/20 09:56 Dose: 200 mls/hr Documented by: Levofloxacin/Dextrose 750 mg/ (Premix) 150 mls @ 100 mls/hr IV Q24H [facility] Last Admin: 03/17/20 19:06 Dose: 100 mls/hr Documented by: Sodium Chloride (Normal Saline) 100 mls @ 3 mls/sec IV ASDIRECTED [facility] Last Admin: 03/16/20 19:31 Dose: 3 mls/sec Documented by: Vancomycin HCl 2 gm/ Sodium (Chloride) 500 mls @ 250 mls/hr IV ONETIME ONE Stop: 03/16/20 21:59 Last Admin: 03/16/20 22:41 Dose: 250 mls/hr Documented by: Vancomycin HCl 1 gm/ Sodium (Chloride) 250 mls @ 166.667 mls/hr IV Q12H [facility] Vancomycin HCl 1 gm/ Sodium (Chloride) 250 mls @ 165 mls/hr IV Q12H [facility] Last Admin: 03/18/20 10:47 Dose: 165 mls/hr Documented by: Sodium Chloride (Normal Saline) 1,000 mls @ 100 mls/hr IV ASDIRECTED [facility] Last Admin: 03/18/20 00:39 Dose: 100 mls/hr Documented by: Sodium Chloride (Normal Saline) 500 mls @ 500 mls/hr IV .BOLUS ONE Stop: 03/17/20 11:41 Last Admin: 03/17/20 10:56 Dose: 500 mls/hr Documented by: Lidocaine HCl (Xylocaine-Mpf 1%) Confirm Administered Dose 2 mls @ as directed .ROUTE .STK-MED ONE Stop: 03/17/20 11:04 Fat Emulsion Intravenous (Intralipid 20%) 100 mls @ 8.3 mls/hr IV Q24H [facility] Last Admin: 03/17/20 16:07 Dose: 8.3 mls/hr Documented by: Norepinephrine Bitartrate 4 mg (/ Dextrose/Water) 250 mls @ 7.5 mls/hr IV TITRATE [facility]; Protocol Last Titration: 03/19/20 22:00 Dose: 0 mcg/min, 0 mls/hr Documented by: Sodium Chloride (Normal Saline) 1,000 mls @ 500 mls/hr IV ASDIRECTED [facility] Stop: 03/17/20 18:46 Propofol (Diprivan 100 Ml) Confirm Administered Dose 100 mls @ as directed .ROUTE .STK-MED ONE Stop: 03/18/20 10:45 Last Admin: 03/18/20 11:54 Dose: Not Given Documented by: Propofol (Diprivan 100 Ml) 100 mls @ 2.28 mls/hr IV TITRATE [facility]; Protocol Last Titration: 03/24/20 09:06 Dose: 0 mcg/kg/min, 0 mls/hr Documented by: Heparin Sodium (Porcine) 5,000 (units/ Sodium Chloride) 501 mls @ 1 mls/hr IV ASDIRECTED [facility] Last Admin: 03/21/20 12:04 Dose: 1 mls/hr Documented by: Levofloxacin/Dextrose 750 mg/ (Premix) 150 mls @ 100 mls/hr IV Q48H [facility] Last Admin: 03/21/20 17:42 Dose: 100 mls/hr Documented by: Meropenem 1 gm/ Sodium (Chloride) 100 mls @ 200 mls/hr IV Q12H [facility] Last Admin: 03/21/20 22:57 Dose: 200 mls/hr Documented by: Vancomycin HCl 1 gm/ Sodium (Chloride) 250 mls @ 167 mls/hr IV Q24H [facility] Last Admin: 03/19/20 11:27 Dose: 167 mls/hr Documented by: Acetaminophen 1,000 mg/ Premix 100 mls @ 400 mls/hr IV Q8H PRN PRN Reason: Fever Stop: 03/19/20 15:34 Last Admin: 03/19/20 07:48 Dose: 400 mls/hr Documented by: Acetaminophen 1,000 mg/ Premix 100 mls @ 400 mls/hr IV Q8H PRN PRN Reason: Fever Stop: 03/20/20 15:46 Magnesium Sulfate 2 gm/ Premix 50 mls @ 25 mls/hr IV Q6H [facility] Stop: 03/20/20 16:59 Last Admin: 03/20/20 14:35 Dose: 25 mls/hr Documented by: Vancomycin HCl 1 gm/ Sodium (Chloride) 250 mls @ 167 mls/hr IV Q18H [facility] Last Admin: 03/22/20 17:17 Dose: 167 mls/hr Documented by: Piperacillin/Tazobactam/ (Dextrose 2.25 gm/ Premix) 50 mls @ 100 mls/hr IV Q6H [facility] Last Admin: 03/24/20 04:36 Dose: 100 mls/hr Documented by: Vancomycin HCl 1 gm/ Sodium (Chloride) 250 mls @ 167 mls/hr IV Q18H [facility] Last Admin: 03/24/20 07:56 Dose: 167 mls/hr Documented by: Magnesium Sulfate (Magnesium Sulfate In Water Premix) 2 gm in 50 mls @ 25 mls/hr IV ONETIME ONE Stop: 03/28/20 11:59 Last Admin: 03/28/20 10:19 Dose: 25 mls/hr Documented by: Ibuprofen (Motrin) 400 mg PO ONETIME ONE Stop: 03/17/20 13:01 Last Admin: 03/17/20 12:59 Dose: 400 mg Documented by: Iopamidol (Isovue-300 (61%)) 112 ml IV ONETIME ONE Stop: 03/15/20 11:17 Last Admin: 03/15/20 19:33 Dose: Not Given Documented by: Iopamidol (Isovue-370 (76%)) 100 ml IV . DIRECTED [facility] Last Admin: 03/16/20 19:31 Dose: 100 ml Documented by: Lactobacillus Rhamnosus (Culturelle) 1 cap PO BID [facility] Last Admin: 03/18/20 08:56 Dose: 1 cap Documented by: Lidocaine/Epinephrine (Xylocaine 1% With Epinephrine 1:100,000) Confirm Administered Dose 50 ml .ROUTE .STK-MED ONE Stop: 03/17/20 10:55 Last Admin: 03/17/20 11:30 Dose: 3.5 ml Documented by: Lidocaine/Epinephrine (Xylocaine 1% With Epinephrine 1:100,000) Confirm Administered Dose 50 ml .ROUTE .STK-MED ONE Stop: 03/30/20 07:10 Last Admin: 03/30/20 09:57 Dose: 5 ml Documented by: Lorazepam (Ativan) 1 mg IVPUSH ONETIME ONE Stop: 03/15/20 11:31 Last Admin: 03/15/20 11:40 Dose: 1 mg Documented by: Lorazepam (Ativan) 0.5 mg IVPUSH Q4H PRN PRN Reason: Nausea/Vomiting Lorazepam (Ativan) 0.5 mg IVPUSH ONETIME ONE Stop: 03/18/20 06:38 Last Admin: 03/18/20 07:04 Dose: 0.5 mg Documented by: Lorazepam (Ativan) 0.5 mg IVPUSH Q2H PRN PRN Reason: Anxiety Last Admin: 03/24/20 09:36 Dose: 0.5 mg Documented by: Lorazepam (Ativan) 0.5 mg PO Q4H PRN PRN Reason: Anxiety Last Admin: 03/29/20 21:49 Dose: 0.5 mg Documented by: Midazolam HCl (Versed 1 Mg/Ml) Confirm Administered Dose 2 mg .ROUTE .STK-MED ONE Stop: 03/17/20 09:56 Midazolam HCl (Versed 1 Mg/Ml) Confirm Administered Dose 2 mg .ROUTE .STK-MED ONE Stop: 03/30/20 07:49 Non-Formulary Medication (Total Parenteral Nutrition, Central) 1,000 ml .XX .Continue Order [facility] Stop: 03/17/20 08:01 Non-Formulary Medication (Total Parenteral Nutrition, Central) 0 ml IV ONETIME [facility] Stop: 03/20/20 12:01 Non-Formulary Medication (Total Parenteral Nutrition, Central) 0 ml IV ONETIME [facility] Stop: 03/21/20 12:00 Olanzapine (Zyprexa) 5 mg IM ONETIME ONE Stop: 03/24/20 11:01 Last Admin: 03/24/20 10:59 Dose: 5 mg Documented by: Oxycodone HCl (Oxycodone) 5 mg PO Q4H PRN PRN Reason: Pain Last Admin: 03/17/20 13:29 Dose: 5 mg Documented by: Pantoprazole Sodium (Protonix Iv) 40 mg IV Q12H [facility] Last Admin: 03/22/20 03:09 Dose: 40 mg Documented by: Propofol (Diprivan 20 Ml) Confirm Administered Dose 200 mg .ROUTE .STK-MED ONE Stop: 03/17/20 09:55 Propofol (Diprivan 20 Ml) Confirm Administered Dose 200 mg .ROUTE .STK-MED ONE Stop: 03/18/20 11:22 Propofol (Diprivan 20 Ml) Confirm Administered Dose 200 mg .ROUTE .STK-MED ONE Stop: 03/30/20 07:49 Sodium Chloride (Saline Flush) 10 ml FLUSH ASDIRECTED PRN PRN Reason: Keep Vein Open Last Admin: 03/15/20 10:11 Dose: 10 ml Documented by: Sodium Chloride (Saline Flush) 10 ml FLUSH ONETIME ONE Stop: 03/15/20 11:17 Last Admin: 03/16/20 19:31 Dose: 10 ml Documented by: Sodium Chloride (Normal Saline) 10 ml FLUSH ONETIME ONE Stop: 03/16/20 17:53 Last Admin: 03/16/20 20:53 Dose: Not Given Documented by: Succinylcholine Chloride (Quelicin) Confirm Administered Dose 200 mg .ROUTE .STK-MED ONE Stop: 03/18/20 11:22 Tizanidine HCl (Zanaflex) 4 mg PO Q6H PRN PRN Reason: muscle cramps Last Admin: 03/18/20 04:05 Dose: 4 mg Documented by: Vancomycin HCl (Vancomycin) 1 gm IV .PHARMACY TO DOSE [facility] Stop: 03/17/20 18:01 - Exam Quality Assessment: Central Line/PICC, DVT Prophylaxis General: Alert, Oriented, Cooperative, No Acute Distress Lungs: Clear to Auscultation, Normal Respiratory Effort Cardiovascular: Regular Rate, Regular Rhythm, No Murmurs GI/Abdominal Exam: Soft, No Organomegaly, Tender. No: Guarding, Rigid, Rebound Extremities: Non-Tender, No Pedal Edema Sepsis Event Note - Evaluation Sepsis Screening Result: No Definite Risk - Focused Exam Vital Signs: Vital Signs Temp Pulse Resp BP Pulse Ox 03/30/20 10:52 90 16 111/55 L 94 L 03/30/20 10:36 94 16 117/56 L 94 L 03/30/20 10:06 87 16 103/62 92 L 03/30/20 09:54 97.3 F 89 16 115/56 L 92 L 03/30/20 09:35 16 109/58 L 93 L 03/30/20 09:30 98 15 113/61 93 L 03/30/20 09:25 94 16 96/57 L 98 03/30/20 09:20 15 101/56 L 97 03/30/20 09:15 98 F 15 100/59 L 98 03/30/20 07:00 98.2 F 100 16 122/57 L 91 L 03/30/20 03:00 98.4 F 100 16 131/61 90 L - Problem List Review Problem List Initiated/Reviewed/Updated: Yes - My Orders Last 24 Hours: My Active Orders 03/30/20 11:48 HYDROmorphone [Dilaudid] 2 mg PO Q4H PRN 03/30/20 11:49 LORazepam [Ativan] 0.5 mg PO Q6H PRN 03/31/20 05:00 CBC WITH AUTO DIFF [HEME] Timed COMPREHENSIVE METABOLIC PN,CMP [CHEM] Timed MAGNESIUM [CHEM] Timed - Plan Plan:: ASSESSMENT AND PLAN Bilateral pneumonia with septic shock-CT imaging gave appearance of septic emboli. Successfully extubated 03/24. Respiratory status stable and she has been doing well. -Continue ampicillin/sulbactam (she has completed 2 weeks of therapy) -Follow-up repeat cultures Hypoxic respiratory failure-secondary to bilateral pulmonary infiltrates. Stable since extubation and off oxygen. -Supplement oxygen if indicated Mixed delirium-periods of agitation as well as somnolence following extubation but now doing well. -Continue home medications Small bowel obstruction (resolved)-Long history of Crohn's disease with multiple abdominal surgeries and ileostomy. Ostomy output stable. -Symptomatic management of pain and nausea Elevated bilirubin, probable shock liver-US 03/21 showed some sludge and stones but no obvious cholecystitis. CT scan did not show acute pathology or evidence for obstruction. Bilirubin has steadily improved but has not normalized. -Recheck labs in a.m. Pancytopenia, hypersplenism?-chronic, stable. Stable so far. -Follow-up labs in a.m. -Transfuse hemoglobin less than 7 -Hold enoxaparin because of thrombocytopenia Stage III chronic kidney disease-history of left nephrectomy. Creatinine stable. Volume status appropriate. -Hold diuretic therapy today -Closely monitor urine output and renal function IV access-James catheter successfully placed this morning -Remove triple-lumen catheter Maintenance issues - - DVT prophylaxis -SCDs - GI prophylaxis -Pepcid - Nutrition -regular diet Disposition -anticipate discharge home with home care after the hospital stay.
[2020-03-30] MEDS: cefTRIAXone 2 GM in Sodium Chloride 0.9% 50 ML IV SCH (17:18)
[2020-03-30] MEDS: Ampicillin 2 GM in Sodium Chloride 0.9% 100 ML IV SCH (20:18)
[2020-03-30] MEDS: Famotidine 20 MG Tab PO SCH (21:58)
[2020-03-31] MEDS: Ampicillin 2 GM in Sodium Chloride 0.9% 100 ML IV SCH ×3 (00:23→07:23)
[2020-03-31] MEDS: HYDROmorphone 2 MG Tab PO PRN ×4 (01:55→18:46)
[2020-03-31] MEDS: tiZANidine 4 MG Tab PO PRN ×2 (03:29→18:22)
[2020-03-31] MEDS: Atropine/Diphenoxylate 0.025-2.5 MG Tab PO SCH ×3 (03:30→15:03)
[2020-03-31] MEDS: Cholestyramine/Sucrose Powder 4 GM Packet PO SCH ×3 (06:28→15:03)
--- NOTE | 2020-03-31 07:23 | PN ---
DATE OF SERVICE: 03/31/2020 SUBJECTIVE: Aline had double-lumen James catheter placed in her left subclavian vein yesterday. She does report some stiffness in that area. Remainder of review of system associated with the placement of James is negative. OBJECTIVE: GENERAL: Aline is a 59-year-old female, pale and weak. VITAL SIGNS: TPR is 97.3, 82, 16, and blood pressure 120/53. MUSCULOSKELETAL: On dressing where the triple-lumen was removed is dry and intact. She has a dressing over the left subclavian triple lumen. ASSESSMENT: Placement of double lumen James catheter, left subclavian vein, 03/30/2020. Surgeon: Shamar Reno MD. PLAN: 1. Remove dressing in right subclavian area. 2. We will evaluate p.r.n. or in the a.m. Aline Landeros PA-C /[id number]
[2020-03-31] MEDS: Psyllium Seed (With Sugar) Wafer PO SCH ×2 (08:10→13:57)
[2020-03-31] MEDS: OLANZapine 5 MG Tab PO SCH (08:58)
[2020-03-31] MEDS: DULoxetine 30 MG Cap PO SCH (08:58)
[2020-03-31] MEDS: Magnesium Sulfate/Water 2 GM in Premix Bag 1 BAG IV SCH ×2 (08:58→14:43)
[2020-03-31] MEDS: Lactobacillus Rhamnosus GG (Probiotic) Cap PO SCH (08:58)
[2020-03-31] MEDS ORDERED: Magnesium Oxide 400 MG Tab PO SCH (09:00)
[2020-03-31] MEDS ORDERED: Acetaminophen 325 MG Tab PO PRN (12:12)
[2020-03-31] MEDS ORDERED: Ampicillin 2 GM in Sodium Chloride 0.9% 100 ML IV SCH (14:00)
--- NOTE | 2020-03-31 14:25 | CT ---
Chest wo Cont CLINICAL HISTORY: Follow-up cavitary nodules TECHNIQUE: Transverse scans were obtained from the thoracic inlet to the lung bases without contrast. Auto dosage reduction in intervertebral reconstruction techniques were employed COMPARISONS: CT abdomen 03/23/[address] a chest 03/16/2020 FINDINGS: Patient has multiple irregular shaped masslike foci and pulmonary nodules in both lungs diffusely. A few these are cavitary. There has been an increase in size and number of these nodular foci. There are scattered nonspecific lymph nodes in the pericarinal region and aortopulmonic window. These are seen on prior study. Scans in the upper abdomen show significant hepatosplenomegaly. IMPRESSION: Increasing irregular shaped pulmonary nodules and masses in both lungs. A few of these show some cavitation. Considering chronology this is most likely an infectious process such as septic emboli. Metastatic disease is not excluded. Patient has significant splenomegaly. No etiology is able to be surmised from prior reports or prior histories. Clinical correlation necessary
--- NOTE | 2020-03-31 14:27 | PCM.PN ---
- General Info Date of Service: 03/31/20 Subjective Update: Ms. Foley has remained fairly stable over the last 24 hours. Discussed this recent hospitalization with infectious disease treasury management sales consultant at the [facility] in [place] yesterday. Because of 2 episodes with enterococcal infection, he recommended that we treat with antibiotics including ampicillin and ceftriaxone until were able to obtain a transesophageal echocardiogram to rule out endocarditis. If the echocardiogram is negative for valvular vegetations, antibiotic coverage could be discontinued. She continues to experience some pleuritic pain on the right lower chest wall. Functional Status: Reports: Tolerating Diet, Ambulating, Urinating - Review of Systems General: Reports: Weakness, Fatigue. Denies: Fever, Chills Pulmonary: Reports: Pleuritic Chest Pain. Denies: Shortness of Breath, Cough, Sputum, Hemoptysis, Wheezing Cardiovascular: Reports: No Symptoms Gastrointestinal: Reports: No Symptoms - Patient Data Vitals - Most Recent: Last Vital Signs Temp 98.1 F 03/31/20 11:00 Pulse 94 03/31/20 11:00 Resp 16 03/31/20 11:00 BP 129/64 03/31/20 11:00 Pulse Ox 92 L 03/31/20 11:00 Weight - Most Recent: 165 lb 2.02 oz I&O - Last 24 Hours: Intake & Output 03/30/20 03/31/20 03/31/20 22:59 06:59 14:59 Intake Total 2700 900 100 Balance 2700 900 100 Lab Results Last 24 Hours: Laboratory Results - last 24 hr 03/31/20 03/31/20 Range/Units 04:25 04:25 WBC 4.7 (4.5-11.0) K/uL RBC 2.62 L (3.30-5.50) M/uL Hgb 7.6 L (12.0-15.0) g/dL Hct 25.9 L (36.0-48.0) % MCV 99 H (80-98) fL MCH 29 (27-31) pg MCHC 29 L (32-36) % Plt Count 164 (150-400) K/uL Neut % (Auto) 67 H (36-66) % Lymph % (Auto) 21 L (24-44) % [place] % (Auto) 12 H (2-6) % Eos % (Auto) 0 L (2-4) % Baso % (Auto) 0 (0-1) % Sodium 134 L (140-148) mmol/L Potassium 4.2 (3.6-5.2) mmol/L Chloride 102 (100-108) mmol/L Carbon Dioxide 22 (21-32) mmol/L Anion Gap 14.2 H (5.0-14.0) mmol/L BUN 21 H (7-18) mg/dL Creatinine 1.5 H (0.6-1.0) mg/dL Est Cr Clr Drug Dosing 38.68 mL/min Estimated GFR (MDRD) 35 L (>60) Glucose 121 H (74-106) mg/dL Calcium 8.1 L (8.5-10.1) mg/dL Magnesium 1.6 L (1.8-2.4) mg/dL Total Bilirubin 2.8 H (0.2-1.0) mg/dL AST 28 (15-37) U/L ALT 34 (12-78) U/L Alkaline Phosphatase 172 H (46-116) U/L Total Protein 8.3 H (6.4-8.2) g/dL Albumin 1.9 L (3.4-5.0) g/dL Globulin 6.4 H (2.3-3.5) g/dL Albumin/Globulin Ratio 0.3 L (1.2-2.2) Med Orders - Current: Current Medications Acetaminophen (Tylenol) 650 mg PO Q4H PRN PRN Reason: Pain Last Admin: 03/31/20 12:36 Dose: 650 mg Documented by: Cholestyramine Resin (Cholestyramine Packet) 4 gm PO QID [facility] Last Admin: 03/31/20 08:59 Dose: Not Given Documented by: Diphenoxylate HCl/Atropine (Lomotil 0.025-2.5 Mg) 2 tab PO Q6H [facility] Last Admin: 03/31/20 08:59 Dose: Not Given Documented by: Duloxetine HCl (Cymbalta) 60 mg PO DAILY [facility] Last Admin: 03/31/20 08:58 Dose: 60 mg Documented by: Famotidine (Pepcid) 20 mg PO BEDTIME [facility] Last Admin: 03/30/20 21:58 Dose: Not Given Documented by: Heparin Sodium (Porcine) (Heparin Lock Flush 100 Units/Ml) 500 units FLUSH ASDIRECTED PRN PRN Reason: IV Use Last Admin: 03/26/20 09:05 Dose: 500 units Documented by: Hydromorphone HCl (Dilaudid) 2 mg PO Q4H PRN PRN Reason: Pain Last Admin: 03/31/20 07:23 Dose: 2 mg Documented by: Multivitamins/Minerals 10 ml/Zinc 1 ml/ Amino Ac/Electrol/Dextrose/Calcium 1,011 mls @ 100 mls/hr IV .BY DURATION [facility] Last Admin: 03/21/20 11:19 Dose: 100 mls/hr Documented by: Amino Ac/Electrol/Dextrose/Calcium (Clinimix E 08/22) 1,000 mls @ 100 mls/hr IV .BY DURATION [facility] Last Admin: 03/22/20 06:03 Dose: 100 mls/hr Documented by: Ceftriaxone Sodium 2 gm/ (Sodium Chloride) 50 mls @ 100 mls/hr IV Q24H [facility] Last Admin: 03/30/20 17:18 Dose: 100 mls/hr Documented by: Magnesium Sulfate 2 gm/ Premix 50 mls @ 25 mls/hr IV Q6H [facility] Stop: 03/31/20 16:59 Last Admin: 03/31/20 08:58 Dose: 25 mls/hr Documented by: Ampicillin Sodium 2 gm/ Sodium (Chloride) 100 mls @ 200 mls/hr IV Q6H [facility] Last Admin: 03/31/20 14:05 Dose: 200 mls/hr Documented by: Imipramine HCl (Imipramine Hcl) 200 mg PO BEDTIME [facility] Last Admin: 03/30/20 21:57 Dose: 200 mg Documented by: Lactobacillus Rhamnosus (Culturelle) 1 cap PO BID [facility] Last Admin: 03/31/20 08:58 Dose: 1 cap Documented by: Loperamide HCl (Imodium) 4 mg PO Q4H PRN PRN Reason: Diarrhea Lorazepam (Ativan) 0.5 mg PO Q6H PRN PRN Reason: Anxiety Magnesium Oxide (Magnesium Oxide) 400 mg PO BID [facility] Last Admin: 03/31/20 08:57 Dose: 400 mg Documented by: Olanzapine (Zyprexa) 5 mg PO BID [facility] Last Admin: 03/31/20 08:58 Dose: 5 mg Documented by: Ondansetron HCl (Zofran) 4 mg IV Q6H PRN PRN Reason: Nausea/Vomiting Last Admin: 03/23/20 01:58 Dose: 4 mg Documented by: Ondansetron HCl (Zofran Odt) 4 mg PO Q6H PRN PRN Reason: Nausea able to take PO Psyllium Husk (Metamucil Fiber Wafer) 2 each PO TID [facility] Last Admin: 03/31/20 13:57 Dose: Not Given Documented by: Tizanidine HCl (Zanaflex) 4 mg PO BID PRN PRN Reason: Spasms Last Admin: 03/31/20 03:29 Dose: 4 mg Documented by: Discontinued Medications Acetaminophen (Tylenol Extra Strength) 1,000 mg PO ONETIME ONE Stop: 03/15/20 11:16 Last Admin: 03/15/20 11:26 Dose: 1,000 mg Documented by: Acetaminophen (Tylenol) 650 mg PO Q4H PRN PRN Reason: Pain (Mild 1-3)/fever Last Admin: 03/17/20 19:56 Dose: 650 mg Documented by: Acetaminophen (Tylenol) 650 mg RECTAL Q4H PRN PRN Reason: Fever Bupivacaine HCl (Marcaine 0.5%) Confirm Administered Dose 50 ml .ROUTE .STK-MED ONE Stop: 03/17/20 10:55 Last Admin: 03/17/20 11:30 Dose: 3.5 ml Documented by: Bupivacaine HCl (Marcaine 0.5%) Confirm Administered Dose 50 ml .ROUTE .STK-MED ONE Stop: 03/30/20 07:09 Last Admin: 03/30/20 09:56 Dose: 5 ml Documented by: Duloxetine HCl (Cymbalta) 60 mg PO DAILY [facility] Last Admin: 03/26/20 07:07 Dose: Not Given Documented by: Enoxaparin Sodium (Lovenox) 40 mg SUBCUT Q24H [facility] Last Admin: 03/17/20 16:05 Dose: 40 mg Documented by: Famotidine (Pepcid) 20 mg IVPUSH Q24H [facility] Last Admin: 03/24/20 16:04 Dose: 20 mg Documented by: Fentanyl (Sublimaze) Confirm Administered Dose 100 mcg .ROUTE .STK-MED ONE Stop: 03/17/20 09:55 Fentanyl (Sublimaze) Confirm Administered Dose 100 mcg .ROUTE .STK-MED ONE Stop: 03/30/20 07:49 Furosemide (Lasix) 40 mg IVPUSH NOW ONE Stop: 03/19/20 13:01 Last Admin: 03/19/20 13:40 Dose: 40 mg Documented by: Furosemide (Lasix) 40 mg IVPUSH NOW ONE Stop: 03/20/20 08:21 Last Admin: 03/20/20 08:36 Dose: 40 mg Documented by: Furosemide (Lasix) 40 mg IVPUSH NOW ONE Stop: 03/20/20 21:01 Last Admin: 03/20/20 22:16 Dose: 40 mg Documented by: Furosemide (Lasix) 40 mg IVPUSH NOW ONE Stop: 03/22/20 09:01 Last Admin: 03/22/20 08:30 Dose: 40 mg Documented by: Heparin Sodium (Porcine) (Heparin Lock Flush 100 Units/Ml) Confirm Administered Dose 500 units .ROUTE .STK-MED ONE Stop: 03/17/20 10:55 Last Admin: 03/17/20 11:40 Dose: 500 units Documented by: Heparin Sodium (Porcine) (Heparin Sodium) Confirm Administered Dose 5,000 units .ROUTE .STK-MED ONE Stop: 03/18/20 10:59 Last Admin: 03/18/20 11:54 Dose: Not Given Documented by: Heparin Sodium (Porcine) (Heparin Lock Flush 100 Units/Ml) Confirm Administered Dose 1,500 units .ROUTE .STK-MED ONE Stop: 03/30/20 07:10 Last Admin: 03/30/20 09:57 Dose: 1,500 units Documented by: Hydromorphone HCl (Dilaudid) 0.5 mg IVPUSH ONETIME ONE Stop: 03/15/20 10:00 Last Admin: 03/15/20 10:10 Dose: 0.5 mg Documented by: Hydromorphone HCl (Dilaudid) 0.5 mg IVPUSH ONETIME ONE Stop: 03/15/20 11:10 Last Admin: 03/15/20 11:15 Dose: 0.5 mg Documented by: Hydromorphone HCl (Dilaudid) 0.5 mg IVPUSH ONETIME ONE Stop: 03/15/20 13:39 Last Admin: 03/15/20 14:04 Dose: 0.5 mg Documented by: Hydromorphone HCl (Dilaudid) 1 mg IVPUSH Q2H PRN PRN Reason: Pain (severe 7-10) Last Admin: 03/16/20 09:43 Dose: 1 mg Documented by: Hydromorphone HCl (Dilaudid) 0.5 mg IVPUSH Q3H PRN PRN Reason: Pain Last Admin: 03/23/20 09:11 Dose: 0.5 mg Documented by: Hydromorphone HCl (Dilaudid) 0.5 mg IVPUSH Q2H PRN PRN Reason: Pain Last Admin: 03/24/20 08:37 Dose: 0.5 mg Documented by: Hydromorphone HCl (Dilaudid) 1 mg IVPUSH Q2H PRN PRN Reason: Pain (severe 7-10) Last Admin: 03/29/20 07:29 Dose: 1 mg Documented by: Hydromorphone HCl (Dilaudid) 2 - 4 mg PO Q3H PRN PRN Reason: Pain Last Admin: 03/30/20 07:07 Dose: 4 mg Documented by: Sodium Chloride (Normal Saline) 1,000 mls @ 500 mls/hr IV ASDIRECTED [facility] Last Admin: 03/15/20 11:13 Dose: 500 mls/hr Documented by: Magnesium Sulfate (Magnesium Sulfate In Water Premix) 2 gm in 50 mls @ 25 mls/hr IV ONETIME ONE Stop: 03/15/20 12:43 Last Admin: 03/15/20 11:14 Dose: 25 mls/hr Documented by: Sodium Chloride (Normal Saline) 74 mls @ 3 mls/sec IV ASDIRECTED [facility] Stop: 03/15/20 11:31 Lactated Ringer's (Ringers, Lactated) 1,000 mls @ 0 mls/hr IV ASDIRECTED [facility] Last Admin: 03/16/20 09:48 Dose: 100 mls/hr Documented by: Magnesium Sulfate (Magnesium Sulfate In Water Premix) 2 gm in 50 mls @ 12.5 mls/hr IV Q6H [facility] Stop: 03/16/20 05:59 Last Admin: 03/16/20 02:41 Dose: 12.5 mls/hr Documented by: Fat Emulsion Intravenous (Intralipid 20%) 100 mls @ 8.3 mls/hr IV Q24H [facility] Last Admin: 03/16/20 16:01 Dose: 8.3 mls/hr Documented by: Multivitamins/Minerals 10 ml/Zinc 1 ml/ Amino Ac/Electrol/Dextrose/Calcium 1,011 mls @ 100 mls/hr IV .BY DURATION [facility] Last Admin: 03/16/20 12:07 Dose: 100 mls/hr Documented by: Amino Ac/Electrol/Dextrose/Calcium (Clinimix E 5/15) 1,000 mls @ 100 mls/hr IV .BY DURATION [facility] Last Admin: 03/16/20 21:55 Dose: 100 mls/hr Documented by: Meropenem 1 gm/ Sodium (Chloride) 100 mls @ 200 mls/hr IV Q8H [facility] Last Admin: 03/18/20 09:56 Dose: 200 mls/hr Documented by: Levofloxacin/Dextrose 750 mg/ (Premix) 150 mls @ 100 mls/hr IV Q24H [facility] Last Admin: 03/17/20 19:06 Dose: 100 mls/hr Documented by: Sodium Chloride (Normal Saline) 100 mls @ 3 mls/sec IV ASDIRECTED [facility] Last Admin: 03/16/20 19:31 Dose: 3 mls/sec Documented by: Vancomycin HCl 2 gm/ Sodium (Chloride) 500 mls @ 250 mls/hr IV ONETIME ONE Stop: 03/16/20 21:59 Last Admin: 03/16/20 22:41 Dose: 250 mls/hr Documented by: Vancomycin HCl 1 gm/ Sodium (Chloride) 250 mls @ 166.667 mls/hr IV Q12H [facility] Vancomycin HCl 1 gm/ Sodium (Chloride) 250 mls @ 165 mls/hr IV Q12H [facility] Last Admin: 03/18/20 10:47 Dose: 165 mls/hr Documented by: Sodium Chloride (Normal Saline) 1,000 mls @ 100 mls/hr IV ASDIRECTED [facility] Last Admin: 03/18/20 00:39 Dose: 100 mls/hr Documented by: Sodium Chloride (Normal Saline) 500 mls @ 500 mls/hr IV .BOLUS ONE Stop: 03/17/20 11:41 Last Admin: 03/17/20 10:56 Dose: 500 mls/hr Documented by: Lidocaine HCl (Xylocaine-Mpf 1%) Confirm Administered Dose 2 mls @ as directed .ROUTE .STK-MED ONE Stop: 03/17/20 11:04 Fat Emulsion Intravenous (Intralipid 20%) 100 mls @ 8.3 mls/hr IV Q24H [facility] Last Admin: 03/17/20 16:07 Dose: 8.3 mls/hr Documented by: Norepinephrine Bitartrate 4 mg (/ Dextrose/Water) 250 mls @ 7.5 mls/hr IV TITRATE [facility]; Protocol Last Titration: 03/19/20 22:00 Dose: 0 mcg/min, 0 mls/hr Documented by: Sodium Chloride (Normal Saline) 1,000 mls @ 500 mls/hr IV ASDIRECTED [facility] Stop: 03/17/20 18:46 Propofol (Diprivan 100 Ml) Confirm Administered Dose 100 mls @ as directed .ROUTE .STK-MED ONE Stop: 03/18/20 10:45 Last Admin: 03/18/20 11:54 Dose: Not Given Documented by: Propofol (Diprivan 100 Ml) 100 mls @ 2.28 mls/hr IV TITRATE [facility]; Protocol Last Titration: 03/24/20 09:06 Dose: 0 mcg/kg/min, 0 mls/hr Documented by: Heparin Sodium (Porcine) 5,000 (units/ Sodium Chloride) 501 mls @ 1 mls/hr IV ASDIRECTED [facility] Last Admin: 03/21/20 12:04 Dose: 1 mls/hr Documented by: Levofloxacin/Dextrose 750 mg/ (Premix) 150 mls @ 100 mls/hr IV Q48H [facility] Last Admin: 03/21/20 17:42 Dose: 100 mls/hr Documented by: Meropenem 1 gm/ Sodium (Chloride) 100 mls @ 200 mls/hr IV Q12H [facility] Last Admin: 03/21/20 22:57 Dose: 200 mls/hr Documented by: Vancomycin HCl 1 gm/ Sodium (Chloride) 250 mls @ 167 mls/hr IV Q24H [facility] Last Admin: 03/19/20 11:27 Dose: 167 mls/hr Documented by: Acetaminophen 1,000 mg/ Premix 100 mls @ 400 mls/hr IV Q8H PRN PRN Reason: Fever Stop: 03/19/20 15:34 Last Admin: 03/19/20 07:48 Dose: 400 mls/hr Documented by: Acetaminophen 1,000 mg/ Premix 100 mls @ 400 mls/hr IV Q8H PRN PRN Reason: Fever Stop: 03/20/20 15:46 Magnesium Sulfate 2 gm/ Premix 50 mls @ 25 mls/hr IV Q6H [facility] Stop: 03/20/20 16:59 Last Admin: 03/20/20 14:35 Dose: 25 mls/hr Documented by: Vancomycin HCl 1 gm/ Sodium (Chloride) 250 mls @ 167 mls/hr IV Q18H [facility] Last Admin: 03/22/20 17:17 Dose: 167 mls/hr Documented by: Piperacillin/Tazobactam/ (Dextrose 2.25 gm/ Premix) 50 mls @ 100 mls/hr IV Q6H [facility] Last Admin: 03/24/20 04:36 Dose: 100 mls/hr Documented by: Vancomycin HCl 1 gm/ Sodium (Chloride) 250 mls @ 167 mls/hr IV Q18H [facility] Last Admin: 03/24/20 07:56 Dose: 167 mls/hr Documented by: Ampicillin Sodium/Sulbactam (Sodium 1.5 gm/ Sodium Chloride) 50 mls @ 100 mls/hr IV Q6H [facility] Last Admin: 03/30/20 15:59 Dose: 100 mls/hr Documented by: Magnesium Sulfate (Magnesium Sulfate In Water Premix) 2 gm in 50 mls @ 25 mls/hr IV ONETIME ONE Stop: 03/28/20 11:59 Last Admin: 03/28/20 10:19 Dose: 25 mls/hr Documented by: Ampicillin Sodium 2 gm/ Sodium (Chloride) 100 mls @ 200 mls/hr IV Q4H [facility] Last Admin: 03/31/20 07:23 Dose: 200 mls/hr Documented by: Ibuprofen (Motrin) 400 mg PO ONETIME ONE Stop: 03/17/20 13:01 Last Admin: 03/17/20 12:59 Dose: 400 mg Documented by: Iopamidol (Isovue-300 (61%)) 112 ml IV ONETIME ONE Stop: 03/15/20 11:17 Last Admin: 03/15/20 19:33 Dose: Not Given Documented by: Iopamidol (Isovue-370 (76%)) 100 ml IV . DIRECTED [facility] Last Admin: 12/07/20 19:31 Dose: 100 ml Documented by: Lactobacillus Rhamnosus (Culturelle) 1 cap PO BID [facility] Last Admin: 03/18/20 08:56 Dose: 1 cap Documented by: Lidocaine/Epinephrine (Xylocaine 1% With Epinephrine 1:100,000) Confirm Administered Dose 50 ml .ROUTE .STK-MED ONE Stop: 03/17/20 10:55 Last Admin: 03/17/20 11:30 Dose: 3.5 ml Documented by: Lidocaine/Epinephrine (Xylocaine 1% With Epinephrine 1:100,000) Confirm Administered Dose 50 ml .ROUTE .STK-MED ONE Stop: 03/30/20 07:10 Last Admin: 03/30/20 09:57 Dose: 5 ml Documented by: Lorazepam (Ativan) 1 mg IVPUSH ONETIME ONE Stop: 03/15/20 11:31 Last Admin: 03/15/20 11:40 Dose: 1 mg Documented by: Lorazepam (Ativan) 0.5 mg IVPUSH Q4H PRN PRN Reason: Nausea/Vomiting Lorazepam (Ativan) 0.5 mg IVPUSH ONETIME ONE Stop: 03/18/20 06:38 Last Admin: 03/18/20 07:04 Dose: 0.5 mg Documented by: Lorazepam (Ativan) 0.5 mg IVPUSH Q2H PRN PRN Reason: Anxiety Last Admin: 03/24/20 09:36 Dose: 0.5 mg Documented by: Lorazepam (Ativan) 0.5 mg PO Q4H PRN PRN Reason: Anxiety Last Admin: 03/29/20 21:49 Dose: 0.5 mg Documented by: Midazolam HCl (Versed 1 Mg/Ml) Confirm Administered Dose 2 mg .ROUTE .STK-MED ONE Stop: 03/17/20 09:56 Midazolam HCl (Versed 1 Mg/Ml) Confirm Administered Dose 2 mg .ROUTE .STK-MED ONE Stop: 03/30/20 07:49 Non-Formulary Medication (Total Parenteral Nutrition, Central) 1,000 ml .XX .Continue Order [facility] Stop: 03/17/20 08:01 Non-Formulary Medication (Total Parenteral Nutrition, Central) 0 ml IV ONETIME [facility] Stop: 03/20/20 12:01 Non-Formulary Medication (Total Parenteral Nutrition, Central) 0 ml IV ONETIME [facility] Stop: 03/21/20 12:00 Olanzapine (Zyprexa) 5 mg IM ONETIME ONE Stop: 03/24/20 11:01 Last Admin: 03/24/20 10:59 Dose: 5 mg Documented by: Oxycodone HCl (Oxycodone) 5 mg PO Q4H PRN PRN Reason: Pain Last Admin: 03/17/20 13:29 Dose: 5 mg Documented by: Pantoprazole Sodium (Protonix Iv) 40 mg IV Q12H [facility] Last Admin: 03/22/20 03:09 Dose: 40 mg Documented by: Propofol (Diprivan 20 Ml) Confirm Administered Dose 200 mg .ROUTE .STK-MED ONE Stop: 03/17/20 09:55 Propofol (Diprivan 20 Ml) Confirm Administered Dose 200 mg .ROUTE .STK-MED ONE Stop: 03/18/20 11:22 Propofol (Diprivan 20 Ml) Confirm Administered Dose 200 mg .ROUTE .STK-MED ONE Stop: 03/30/20 07:49 Sodium Chloride (Saline Flush) 10 ml FLUSH ASDIRECTED PRN PRN Reason: Keep Vein Open Last Admin: 03/15/20 10:11 Dose: 10 ml Documented by: Sodium Chloride (Saline Flush) 10 ml FLUSH ONETIME ONE Stop: 03/15/20 11:17 Last Admin: 03/16/20 19:31 Dose: 10 ml Documented by: Sodium Chloride (Normal Saline) 10 ml FLUSH ONETIME ONE Stop: 03/16/20 17:53 Last Admin: 03/16/20 20:53 Dose: Not Given Documented by: Succinylcholine Chloride (Quelicin) Confirm Administered Dose 200 mg .ROUTE .STK-MED ONE Stop: 03/18/20 11:22 Tizanidine HCl (Zanaflex) 4 mg PO Q6H PRN PRN Reason: muscle cramps Last Admin: 03/18/20 04:05 Dose: 4 mg Documented by: Vancomycin HCl (Vancomycin) 1 gm IV .PHARMACY TO DOSE [facility] Stop: 03/17/20 18:01 - Exam Quality Assessment: Central Line/PICC, DVT Prophylaxis General: Alert, Oriented, Cooperative, Mild Distress Lungs: Clear to Auscultation, Normal Respiratory Effort Cardiovascular: Regular Rate, Regular Rhythm, No Murmurs GI/Abdominal Exam: Soft, Non-Tender, No Organomegaly, No Distention Extremities: Non-Tender, No Pedal Edema Sepsis Event Note - Evaluation Sepsis Screening Result: No Definite Risk - Focused Exam Vital Signs: Vital Signs Temp Pulse Resp BP Pulse Ox 03/31/20 11:00 98.1 F 94 16 129/64 92 L 03/31/20 07:00 96.8 F L 91 16 119/50 L 100 03/31/20 03:00 97.3 F 82 16 120/53 L 98 - Problem List Review Problem List Initiated/Reviewed/Updated: Yes - My Orders Last 24 Hours: My Active Orders 03/30/20 17:30 cefTRIAXone [Rocephin] 2 gm Sodium Chloride 0.9% [Normal Saline] 50 ml IV Q24H 03/31/20 09:00 Magnesium Oxide 400 mg PO BID Magnesium Sulfate/Water [Magnesium Sulfate in Water Premix] 2 gm Premix Bag 1 bag IV Q6H 03/31/20 12:12 Acetaminophen [TylenoL] 650 mg PO Q4H PRN 03/31/20 12:52 Chest wo Cont [CT] Stat 03/31/20 14:00 Ampicillin 2 gm Sodium Chloride 0.9% [Normal Saline] 100 ml IV Q6H 04/01/20 05:00 CBC WITH AUTO DIFF [HEME] Timed COMPREHENSIVE METABOLIC PN,CMP [CHEM] Timed - Plan Plan:: ASSESSMENT AND PLAN Bilateral pneumonia with septic shock-CT imaging gave appearance of septic emboli. Successfully extubated 03/24. Respiratory status stable and she has been doing well. She has experienced some right-sided pleuritic pain -CT scan of chest to follow-up cavitary lesions and evaluate pleuritic pain -Follow-up repeat cultures Hypoxic respiratory failure-secondary to bilateral pulmonary infiltrates. Stable since extubation and off oxygen. -Supplement oxygen if indicated Enterococcal infection-reviewed with infectious disease treasury management sales consultant at the [facility] in [place]. -Outpatient transesophageal echo -Continue IV ampicillin and ceftriaxone, pending echo results. Mixed delirium-resolved -Continue home medications Small bowel obstruction (resolved)-Long history of Crohn's disease with multiple abdominal surgeries and ileostomy. Ostomy output stable. -Symptomatic management of pain and nausea Elevated bilirubin, probable shock liver-US 03/21 showed some sludge and stones but no obvious cholecystitis. CT scan did not show acute pathology or evidence for obstruction. Bilirubin has steadily improved but has not normalized. -Recheck labs in a.m. Pancytopenia, hypersplenism?-chronic, stable. Stable so far. -Follow-up labs in a.m. -Transfuse hemoglobin less than 7 -Hold enoxaparin because of thrombocytopenia Stage III chronic kidney disease-history of left nephrectomy. Creatinine stable. Volume status appropriate. -Hold diuretic therapy today -Closely monitor urine output and renal function IV access-James catheter successfully placed this morning -Remove triple-lumen catheter Maintenance issues - - DVT prophylaxis -SCDs - GI prophylaxis -Pepcid - Nutrition -regular diet Disposition -anticipate discharge home with home care after the hospital stay.
--- NOTE | 2020-03-31 16:17 | PCM.DCSUM1 ---
Discharge Summary - Hospital Course Brief History: Ms. Foley is a 59-year-old woman who was admitted through the emergency department with increased abdominal pain, nausea, and vomiting, secondary to partial small bowel obstruction. - Discharge Data Discharge Date: 03/31/20 Discharge Disposition: DC/Tfer to Acute Hospital 02 Condition: Fair - Referral to [facility] Primary Care Physician: Lisa Gerber MD - Discharge Diagnosis/Problem(s) (1) Septic shock due to Enterococcus fecalis SNOMED Code(s): 50450754 ICD Code: A41.81 - SEPSIS DUE TO ENTEROCOCCUS; R65.21 - SEVERE SEPSIS WITH SEPTIC SHOCK Status: Acute Current Visit: Yes (2) Pneumonia SNOMED Code(s): 745872122 ICD Code: J18.9 - PNEUMONIA, UNSPECIFIED ORGANISM Status: Acute Current Visit: Yes Qualifiers: Pneumonia type: due to unspecified organism Laterality: bilateral (3) Acute respiratory failure with hypoxia SNOMED Code(s): 04832562, 667202162 ICD Code: J96.01 - ACUTE RESPIRATORY FAILURE WITH HYPOXIA Status: Acute Current Visit: Yes (4) SBO (small bowel obstruction) SNOMED Code(s): 991174700 ICD Code: K56.609 - UNSP INTESTNL OBST, UNSP TO PARTIAL VERSUS COMPLETE OBST Status: Acute Current Visit: Yes (5) Pancytopenia SNOMED Code(s): 787900065 ICD Code: D61.818 - OTHER PANCYTOPENIA Status: Chronic Current Visit: No (6) CKD (chronic kidney disease), stage III SNOMED Code(s): 870180910 ICD Code: N18.3 - CHRONIC KIDNEY DISEASE, STAGE 3 (MODERATE) * DO NOT USE * Status: Chronic Current Visit: No Qualifiers: Chronic kidney disease stage 3 subtype: stage 3a (GFR 45-59) Qualified Code(s): N18.31 - Chronic kidney disease, stage 3a (7) Chronic abdominal pain SNOMED Code(s): 893649843 ICD Code: R10.9 - UNSPECIFIED ABDOMINAL PAIN; G89.29 - OTHER CHRONIC PAIN Status: Chronic Current Visit: No (8) Crohn's disease SNOMED Code(s): 46053593 ICD Code: K50.90 - CROHN'S DISEASE, UNSPECIFIED, WITHOUT COMPLICATIONS Status: Chronic Current Visit: No Qualifiers: Gastrointestinal tract location: unspecified location Digestive disease complication type: other complication Qualified Code(s): K50.918 - Crohn's disease, unspecified, with other complication - Patient Summary/Data Consults: Consultations 03/15/20 15:16 Consult to Physician [CONS] Routine Consulting Provider: Shamar Reno Call Completed to Consulting Physician: Yes Reason for Consult: SBO Person Notified: CHAVEZ Date Notified: 03/15/20 Special Instructions: will see in the am 03/26/20 09:08 PT Evaluation and Treatment [CONS] Routine Please Evaluate and Treat. PT Reason for Consult: Strengthening This query below is only for informational purposes and is not editable. Admission Diagnosis/Problem: Small bowel obstruction due to adhesions Hospital Course: Ms. Foley presented to the emergency room with several days of progressive generalized abdominal pain. She describes this as a constant dull throbbing pain throughout her abdomen. This has progressed to moderately severe. She has some hydromorphone pills that she has been using and this does help temporarily. Moving seems to make the pain worse. Trying to eat makes the pain worse. This is different than her usual chronic abdominal pain and is steadily getting worse. She has had nausea but no vomiting. She has had very little stool passing into her ostomy bag but does get some gas. Work-up in the emergency room revealed stable chronic pancytopenia and stable kidney function. A CT scan of the abdomen and pelvis showed a small bowel obstruction with a probable transition point in the pelvis area. On admission she was kept n.p.o. and given IV fluids for hydration as well as pain medication and medication for nausea. By the following day there had been some improvement as she started passing stool into her ostomy bag. She does have a known longstanding history of Crohn's disease with several previous surgeries and a current ileostomy. She had recently been hospitalized at the [facility] in [place]. Cultures at that time grew out Enterococcus and Enterobacter. Positive cultures were felt to be secondary to urinary tract infection. She was discharged home on oral antibiotic therapy with ampicillin and levofloxacin. She has a James catheter in place on the left and she was also sent home with vancomycin and gentamicin flushes of her James catheter. She completed antibiotic therapy on 11 March. The day after admission to this facility she developed fever with respiratory compromise. Blood cultures were obtained and she was started on broad-spectrum IV antibiotic therapy with vancomycin, levofloxacin, and meropenem. She was felt to have developed septic shock with hypotension and did receive aggressive fluid replacement per sepsis protocol. Unfortunately she had persistent hypotension and was started on norepinephrine and required use of this for several days while in the intensive care unit. Transthoracic echocardiogram was obtained early in her hospital course and showed no evidence of obvious valvular vegetations. CT scan of the chest was obtained showing no evidence of pulmonary emboli but did document multiple small patchy areas of infiltrate in both lungs consistent with septic emboli. She developed progressive respiratory compromise and was placed on noninvasive positive pressure ventilation. After 1 day blood cultures did come back positive for Enterococcus. Suspected source was felt to be her James catheter. The James catheter was removed and a triple-lumen catheter was placed on the right. She also has a known and longstanding history of pancytopenia which is thought to be secondary to her splenomegaly. She had been seen and evaluated by hematology when she was in [place]. Typically when she becomes acutely ill she does become more anemic and requires transfusion. She was transfused a total of 3 units of red blood cells during this hospitalization. Platelet count dropped into the 40,000 range but had improved by the time of transfer. White blood cell count had also dropped but was normalized by the time of transfer. Despite use of BiPAP she developed further respiratory compromise requiring intubation and mechanical ventilation. She was on the ventilator for 6 days and then extubated. Following extubation she has had progressive improvement in her respiratory status, currently has good saturations while breathing on room air. Follow-up CT scan of the chest was obtained on the day of transfer and still showed multiple patchy infiltrates with a few areas of cavitation. She has had no further temperature elevations. After the initial set of blood cultures were positive a second set of blood cultures were obtained on 18 March and have remained negative. After extubation she was transitioned to antibiotic therapy intravenously with Unasyn. On the day prior to transfer her hospital course was reviewed with an infectious disease specialist from the [facility] in [place]. He recommended that she be placed on ampicillin and ceftriaxone intravenously and that a transesophageal echocardiogram be obtained to rule out valvular vegetations. Unfortunately that procedure is not available at our facility. Dr. Corral from the Department of cardiology at [facility] in [place] was contacted and has agreed to accept the patient in transfer so that this procedure can be obtained. Infectious disease recommendation was that antibiotics could be discontinued if there are no obvious valvular vegetations. She will be transferred to [facility] in [place] via [facility] ambulance. - Patient Instructions Diet: Usual Diet as Tolerated Activity: As Tolerated - Discharge Plan *PRESCRIPTION DRUG MONITORING PROGRAM REVIEWED*: No *COPY OF PRESCRIPTION DRUG MONITORING REPORT IN PATIENT MYLA: No Home Medications: Home Meds Acetaminophen [Acetaminophen Extra Strength] 1,000 mg PO Q4HR PRN 06/17/19 [History] Cyanocobalamin (Vitamin B-12) [Cyanocobalamin Injection] 1 ml IM ASDIRECTED 06/17/19 [History] Imipramine HCl 200 mg PO BEDTIME 06/17/19 [History] Nystatin [Nystatin Oint] 1 dose TOP BID PRN 06/17/19 [History] Ondansetron [Zofran ODT] 4 mg PO Q4HR PRN 06/17/19 [History] Pedi Multivit No.25/Folic Acid [Flintstones Multivit Chew Tab] 1 tab PO DAILY 06/17/19 [History] SUMAtriptan [Imitrex] 50 mg PO BTNUNITS PRN 06/17/19 [History] DULoxetine [Cymbalta] 60 mg PO DAILY cap 09/16/19 [Rx] Lactobacillus Rhamnosus GG [Culturelle] 1 cap PO BID #60 cap 09/16/19 [Rx] Melatonin 9 mg PO BEDTIME tablet 09/16/19 [Rx] Atropine/Diphenoxylate [Diphenoxylate-Atropine] 2 tab PO Q6H 10/22/19 [History] Magnesium Oxide 400 mg PO TID 10/22/19 [History] Potassium Chloride 20 meq PO BID 10/22/19 [History] Psyllium Seed (With Sugar) [Metamucil Fiber Wafer] 2 each PO TID #180 wafer 11/01/19 [Rx] Cholestyramine/Sucrose [Cholestyramine] 4 gm PO QID #120 packet 12/18/19 [Rx] Amylase/Lipase/Protease [Gus BEE 12,000 Units] 2 cap PO TID 01/19/20 [History] Magnesium Sulfate/D5W [Magnesium 2 Gram/50 ml-D5w] 2 gm IV ASDIRECTED 01/19/20 [History] OLANZapine [Olanzapine] 5 mg PO BID 03/10/20 [History] Loperamide [Imodium] 2 mg PO Q4H PRN 03/15/20 [History] Ampicillin 2 gm IV Q6H vial 03/31/20 [Rx] HYDROmorphone [Dilaudid] 2 mg PO Q4H PRN tablet 03/31/20 [Rx] LORazepam [Ativan] 0.5 mg PO Q6H PRN tablet 03/31/20 [Rx] cefTRIAXone [Rocephin] 2 gm IV Q24H vial 03/31/20 [Rx] tiZANidine [Zanaflex] 4 mg PO BID PRN tablet 03/31/20 [Rx] Referrals: Lisa Gerber MD [Primary Care Provider] - - Discharge Summary/Plan Comment DC Time >30 min.: Yes (1 hour of time was spent in preparing and arranging for this discharge) - Patient Data Vitals - Most Recent: Last Vital Signs Temp 96.4 F L 03/31/20 15:00 Pulse 98 03/31/20 15:00 Resp 16 03/31/20 15:00 BP 121/58 L 03/31/20 15:00 Pulse Ox 92 L 03/31/20 15:00 Weight - Most Recent: 165 lb 2.02 oz I&O - Last 24 hours: Intake & Output 03/31/20 03/31/20 03/31/20 06:59 14:59 22:59 Intake Total 900 1490 Balance 900 1490 Lab Results - Last 24 hrs: Laboratory Results - last 24 hr 03/31/20 03/31/20 Range/Units 04:25 04:25 WBC 4.7 (4.5-11.0) K/uL RBC 2.62 L (3.30-5.50) M/uL Hgb 7.6 L (12.0-15.0) g/dL Hct 25.9 L (36.0-48.0) % MCV 99 H (80-98) fL MCH 29 (27-31) pg MCHC 29 L (32-36) % Plt Count 164 (150-400) K/uL Neut % (Auto) 67 H (36-66) % Lymph % (Auto) 21 L (24-44) % [place] % (Auto) 12 H (2-6) % Eos % (Auto) 0 L (2-4) % Baso % (Auto) 0 (0-1) % Sodium 134 L (140-148) mmol/L Potassium 4.2 (3.6-5.2) mmol/L Chloride 102 (100-108) mmol/L Carbon Dioxide 22 (21-32) mmol/L Anion Gap 14.2 H (5.0-14.0) mmol/L BUN 21 H (7-18) mg/dL Creatinine 1.5 H (0.6-1.0) mg/dL Est Cr Clr Drug Dosing 38.68 mL/min Estimated GFR (MDRD) 35 L (>60) Glucose 121 H (74-106) mg/dL Calcium 8.1 L (8.5-10.1) mg/dL Magnesium 1.6 L (1.8-2.4) mg/dL Total Bilirubin 2.8 H (0.2-1.0) mg/dL AST 28 (15-37) U/L ALT 34 (12-78) U/L Alkaline Phosphatase 172 H (46-116) U/L Total Protein 8.3 H (6.4-8.2) g/dL Albumin 1.9 L (3.4-5.0) g/dL Globulin 6.4 H (2.3-3.5) g/dL Albumin/Globulin Ratio 0.3 L (1.2-2.2) Med Orders - Current: Current Medications Acetaminophen (Tylenol) 650 mg PO Q4H PRN PRN Reason: Pain Last Admin: 03/31/20 12:36 Dose: 650 mg Documented by: Cholestyramine Resin (Cholestyramine Packet) 4 gm PO QID [facility] Last Admin: 03/31/20 15:03 Dose: Not Given Documented by: Diphenoxylate HCl/Atropine (Lomotil 0.025-2.5 Mg) 2 tab PO Q6H [facility] Last Admin: 03/31/20 15:03 Dose: Not Given Documented by: Duloxetine HCl (Cymbalta) 60 mg PO DAILY [facility] Last Admin: 03/31/20 08:58 Dose: 60 mg Documented by: Famotidine (Pepcid) 20 mg PO BEDTIME [facility] Last Admin: 03/30/20 21:58 Dose: Not Given Documented by: Heparin Sodium (Porcine) (Heparin Lock Flush 100 Units/Ml) 500 units FLUSH ASDIRECTED PRN PRN Reason: IV Use Last Admin: 03/26/20 09:05 Dose: 500 units Documented by: Hydromorphone HCl (Dilaudid) 2 mg PO Q4H PRN PRN Reason: Pain Last Admin: 03/31/20 14:42 Dose: 2 mg Documented by: Multivitamins/Minerals 10 ml/Zinc 1 ml/ Amino Ac/Electrol/Dextrose/Calcium 1,011 mls @ 100 mls/hr IV .BY DURATION [facility] Last Admin: 03/21/20 11:19 Dose: 100 mls/hr Documented by: Amino Ac/Electrol/Dextrose/Calcium (Clinimix E 08/22) 1,000 mls @ 100 mls/hr IV .BY DURATION [facility] Last Admin: 03/22/20 06:03 Dose: 100 mls/hr Documented by: Ceftriaxone Sodium 2 gm/ (Sodium Chloride) 50 mls @ 100 mls/hr IV Q24H [facility] Last Admin: 03/30/20 17:18 Dose: 100 mls/hr Documented by: Magnesium Sulfate 2 gm/ Premix 50 mls @ 25 mls/hr IV Q6H [facility] Stop: 03/31/20 16:59 Last Admin: 03/31/20 14:43 Dose: 25 mls/hr Documented by: Ampicillin Sodium 2 gm/ Sodium (Chloride) 100 mls @ 200 mls/hr IV Q6H [facility] Last Admin: 03/31/20 14:05 Dose: 200 mls/hr Documented by: Imipramine HCl (Imipramine Hcl) 200 mg PO BEDTIME [facility] Last Admin: 03/30/20 21:57 Dose: 200 mg Documented by: Lactobacillus Rhamnosus (Culturelle) 1 cap PO BID [facility] Last Admin: 03/31/20 08:58 Dose: 1 cap Documented by: Loperamide HCl (Imodium) 4 mg PO Q4H PRN PRN Reason: Diarrhea Lorazepam (Ativan) 0.5 mg PO Q6H PRN PRN Reason: Anxiety Magnesium Oxide (Magnesium Oxide) 400 mg PO BID [facility] Last Admin: 03/31/20 08:57 Dose: 400 mg Documented by: Olanzapine (Zyprexa) 5 mg PO BID [facility] Last Admin: 03/31/20 08:58 Dose: 5 mg Documented by: Ondansetron HCl (Zofran) 4 mg IV Q6H PRN PRN Reason: Nausea/Vomiting Last Admin: 03/23/20 01:58 Dose: 4 mg Documented by: Ondansetron HCl (Zofran Odt) 4 mg PO Q6H PRN PRN Reason: Nausea able to take PO Psyllium Husk (Metamucil Fiber Wafer) 2 each PO TID [facility] Last Admin: 03/31/20 13:57 Dose: Not Given Documented by: Tizanidine HCl (Zanaflex) 4 mg PO BID PRN PRN Reason: Spasms Last Admin: 03/31/20 03:29 Dose: 4 mg Documented by: Discontinued Medications Acetaminophen (Tylenol Extra Strength) 1,000 mg PO ONETIME ONE Stop: 03/15/20 11:16 Last Admin: 03/15/20 11:26 Dose: 1,000 mg Documented by: Acetaminophen (Tylenol) 650 mg PO Q4H PRN PRN Reason: Pain (Mild 1-3)/fever Last Admin: 03/17/20 19:56 Dose: 650 mg Documented by: Acetaminophen (Tylenol) 650 mg RECTAL Q4H PRN PRN Reason: Fever Bupivacaine HCl (Marcaine 0.5%) Confirm Administered Dose 50 ml .ROUTE .STK-MED ONE Stop: 03/17/20 10:55 Last Admin: 03/17/20 11:30 Dose: 3.5 ml Documented by: Bupivacaine HCl (Marcaine 0.5%) Confirm Administered Dose 50 ml .ROUTE .STK-MED ONE Stop: 03/30/20 07:09 Last Admin: 03/30/20 09:56 Dose: 5 ml Documented by: Duloxetine HCl (Cymbalta) 60 mg PO DAILY [facility] Last Admin: 03/26/20 07:07 Dose: Not Given Documented by: Enoxaparin Sodium (Lovenox) 40 mg SUBCUT Q24H [facility] Last Admin: 03/17/20 16:05 Dose: 40 mg Documented by: Famotidine (Pepcid) 20 mg IVPUSH Q24H [facility] Last Admin: 03/24/20 16:04 Dose: 20 mg Documented by: Fentanyl (Sublimaze) Confirm Administered Dose 100 mcg .ROUTE .STK-MED ONE Stop: 03/17/20 09:55 Fentanyl (Sublimaze) Confirm Administered Dose 100 mcg .ROUTE .STK-MED ONE Stop: 03/30/20 07:49 Furosemide (Lasix) 40 mg IVPUSH NOW ONE Stop: 03/19/20 13:01 Last Admin: 03/19/20 13:40 Dose: 40 mg Documented by: Furosemide (Lasix) 40 mg IVPUSH NOW ONE Stop: 03/20/20 08:21 Last Admin: 03/20/20 08:36 Dose: 40 mg Documented by: Furosemide (Lasix) 40 mg IVPUSH NOW ONE Stop: 03/20/20 21:01 Last Admin: 03/20/20 22:16 Dose: 40 mg Documented by: Furosemide (Lasix) 40 mg IVPUSH NOW ONE Stop: 03/22/20 09:01 Last Admin: 03/22/20 08:30 Dose: 40 mg Documented by: Heparin Sodium (Porcine) (Heparin Lock Flush 100 Units/Ml) Confirm Administered Dose 500 units .ROUTE .STK-MED ONE Stop: 03/17/20 10:55 Last Admin: 03/17/20 11:40 Dose: 500 units Documented by: Heparin Sodium (Porcine) (Heparin Sodium) Confirm Administered Dose 5,000 units .ROUTE .STK-MED ONE Stop: 03/18/20 10:59 Last Admin: 03/18/20 11:54 Dose: Not Given Documented by: Heparin Sodium (Porcine) (Heparin Lock Flush 100 Units/Ml) Confirm Administered Dose 1,500 units .ROUTE .STK-MED ONE Stop: 03/30/20 07:10 Last Admin: 03/30/20 09:57 Dose: 1,500 units Documented by: Hydromorphone HCl (Dilaudid) 0.5 mg IVPUSH ONETIME ONE Stop: 03/15/20 10:00 Last Admin: 03/15/20 10:10 Dose: 0.5 mg Documented by: Hydromorphone HCl (Dilaudid) 0.5 mg IVPUSH ONETIME ONE Stop: 03/15/20 11:10 Last Admin: 03/15/20 11:15 Dose: 0.5 mg Documented by: Hydromorphone HCl (Dilaudid) 0.5 mg IVPUSH ONETIME ONE Stop: 03/15/20 13:39 Last Admin: 03/15/20 14:04 Dose: 0.5 mg Documented by: Hydromorphone HCl (Dilaudid) 1 mg IVPUSH Q2H PRN PRN Reason: Pain (severe 7-10) Last Admin: 03/16/20 09:43 Dose: 1 mg Documented by: Hydromorphone HCl (Dilaudid) 0.5 mg IVPUSH Q3H PRN PRN Reason: Pain Last Admin: 03/23/20 09:11 Dose: 0.5 mg Documented by: Hydromorphone HCl (Dilaudid) 0.5 mg IVPUSH Q2H PRN PRN Reason: Pain Last Admin: 03/24/20 08:37 Dose: 0.5 mg Documented by: Hydromorphone HCl (Dilaudid) 1 mg IVPUSH Q2H PRN PRN Reason: Pain (severe 7-10) Last Admin: 03/29/20 07:29 Dose: 1 mg Documented by: Hydromorphone HCl (Dilaudid) 2 - 4 mg PO Q3H PRN PRN Reason: Pain Last Admin: 03/30/20 07:07 Dose: 4 mg Documented by: Sodium Chloride (Normal Saline) 1,000 mls @ 500 mls/hr IV ASDIRECTED [facility] Last Admin: 03/15/20 11:13 Dose: 500 mls/hr Documented by: Magnesium Sulfate (Magnesium Sulfate In Water Premix) 2 gm in 50 mls @ 25 mls/hr IV ONETIME ONE Stop: 03/15/20 12:43 Last Admin: 03/15/20 11:14 Dose: 25 mls/hr Documented by: Sodium Chloride (Normal Saline) 74 mls @ 3 mls/sec IV ASDIRECTED [facility] Stop: 03/15/20 11:31 Lactated Ringer's (Ringers, Lactated) 1,000 mls @ 0 mls/hr IV ASDIRECTED [facility] Last Admin: 03/16/20 09:48 Dose: 100 mls/hr Documented by: Magnesium Sulfate (Magnesium Sulfate In Water Premix) 2 gm in 50 mls @ 12.5 mls/hr IV Q6H [facility] Stop: 03/16/20 05:59 Last Admin: 03/16/20 02:41 Dose: 12.5 mls/hr Documented by: Fat Emulsion Intravenous (Intralipid 20%) 100 mls @ 8.3 mls/hr IV Q24H [facility] Last Admin: 03/16/20 16:01 Dose: 8.3 mls/hr Documented by: Multivitamins/Minerals 10 ml/Zinc 1 ml/ Amino Ac/Electrol/Dextrose/Calcium 1,011 mls @ 100 mls/hr IV .BY DURATION [facility] Last Admin: 03/16/20 12:07 Dose: 100 mls/hr Documented by: Amino Ac/Electrol/Dextrose/Calcium (Clinimix E 5/15) 1,000 mls @ 100 mls/hr IV .BY DURATION [facility] Last Admin: 03/16/20 21:55 Dose: 100 mls/hr Documented by: Meropenem 1 gm/ Sodium (Chloride) 100 mls @ 200 mls/hr IV Q8H [facility] Last Admin: 03/18/20 09:56 Dose: 200 mls/hr Documented by: Levofloxacin/Dextrose 750 mg/ (Premix) 150 mls @ 100 mls/hr IV Q24H [facility] Last Admin: 03/17/20 19:06 Dose: 100 mls/hr Documented by: Sodium Chloride (Normal Saline) 100 mls @ 3 mls/sec IV ASDIRECTED [facility] Last Admin: 03/16/20 19:31 Dose: 3 mls/sec Documented by: Vancomycin HCl 2 gm/ Sodium (Chloride) 500 mls @ 250 mls/hr IV ONETIME ONE Stop: 03/16/20 21:59 Last Admin: 03/16/20 22:41 Dose: 250 mls/hr Documented by: Vancomycin HCl 1 gm/ Sodium (Chloride) 250 mls @ 166.667 mls/hr IV Q12H [facility] Vancomycin HCl 1 gm/ Sodium (Chloride) 250 mls @ 165 mls/hr IV Q12H [facility] Last Admin: 03/18/20 10:47 Dose: 165 mls/hr Documented by: Sodium Chloride (Normal Saline) 1,000 mls @ 100 mls/hr IV ASDIRECTED [facility] Last Admin: 03/18/20 00:39 Dose: 100 mls/hr Documented by: Sodium Chloride (Normal Saline) 500 mls @ 500 mls/hr IV .BOLUS ONE Stop: 03/17/20 11:41 Last Admin: 03/17/20 10:56 Dose: 500 mls/hr Documented by: Lidocaine HCl (Xylocaine-Mpf 1%) Confirm Administered Dose 2 mls @ as directed .ROUTE .STK-MED ONE Stop: 03/17/20 11:04 Fat Emulsion Intravenous (Intralipid 20%) 100 mls @ 8.3 mls/hr IV Q24H [facility] Last Admin: 03/17/20 16:07 Dose: 8.3 mls/hr Documented by: Norepinephrine Bitartrate 4 mg (/ Dextrose/Water) 250 mls @ 7.5 mls/hr IV TITRATE [facility]; Protocol Last Titration: 03/19/20 22:00 Dose: 0 mcg/min, 0 mls/hr Documented by: Sodium Chloride (Normal Saline) 1,000 mls @ 500 mls/hr IV ASDIRECTED [facility] Stop: 03/17/20 18:46 Propofol (Diprivan 100 Ml) Confirm Administered Dose 100 mls @ as directed .ROUTE .STK-MED ONE Stop: 03/18/20 10:45 Last Admin: 03/18/20 11:54 Dose: Not Given Documented by: Propofol (Diprivan 100 Ml) 100 mls @ 2.28 mls/hr IV TITRATE [facility]; Protocol Last Titration: 03/24/20 09:06 Dose: 0 mcg/kg/min, 0 mls/hr Documented by: Heparin Sodium (Porcine) 5,000 (units/ Sodium Chloride) 501 mls @ 1 mls/hr IV ASDIRECTED [facility] Last Admin: 03/21/20 12:04 Dose: 1 mls/hr Documented by: Levofloxacin/Dextrose 750 mg/ (Premix) 150 mls @ 100 mls/hr IV Q48H [facility] Last Admin: 03/21/20 17:42 Dose: 100 mls/hr Documented by: Meropenem 1 gm/ Sodium (Chloride) 100 mls @ 200 mls/hr IV Q12H [facility] Last Admin: 03/21/20 22:57 Dose: 200 mls/hr Documented by: Vancomycin HCl 1 gm/ Sodium (Chloride) 250 mls @ 167 mls/hr IV Q24H [facility] Last Admin: 03/19/20 11:27 Dose: 167 mls/hr Documented by: Acetaminophen 1,000 mg/ Premix 100 mls @ 400 mls/hr IV Q8H PRN PRN Reason: Fever Stop: 03/19/20 15:34 Last Admin: 03/19/20 07:48 Dose: 400 mls/hr Documented by: Acetaminophen 1,000 mg/ Premix 100 mls @ 400 mls/hr IV Q8H PRN PRN Reason: Fever Stop: 03/20/20 15:46 Magnesium Sulfate 2 gm/ Premix 50 mls @ 25 mls/hr IV Q6H [facility] Stop: 03/20/20 16:59 Last Admin: 03/20/20 14:35 Dose: 25 mls/hr Documented by: Vancomycin HCl 1 gm/ Sodium (Chloride) 250 mls @ 167 mls/hr IV Q18H [facility] Last Admin: 03/22/20 17:17 Dose: 167 mls/hr Documented by: Piperacillin/Tazobactam/ (Dextrose 2.25 gm/ Premix) 50 mls @ 100 mls/hr IV Q6H [facility] Last Admin: 03/24/20 04:36 Dose: 100 mls/hr Documented by: Vancomycin HCl 1 gm/ Sodium (Chloride) 250 mls @ 167 mls/hr IV Q18H [facility] Last Admin: 03/24/20 07:56 Dose: 167 mls/hr Documented by: Ampicillin Sodium/Sulbactam (Sodium 1.5 gm/ Sodium Chloride) 50 mls @ 100 mls/hr IV Q6H [facility] Last Admin: 03/30/20 15:59 Dose: 100 mls/hr Documented by: Magnesium Sulfate (Magnesium Sulfate In Water Premix) 2 gm in 50 mls @ 25 mls/hr IV ONETIME ONE Stop: 03/28/20 11:59 Last Admin: 03/28/20 10:19 Dose: 25 mls/hr Documented by: Ampicillin Sodium 2 gm/ Sodium (Chloride) 100 mls @ 200 mls/hr IV Q4H [facility] Last Admin: 03/31/20 07:23 Dose: 200 mls/hr Documented by: Ibuprofen (Motrin) 400 mg PO ONETIME ONE Stop: 03/17/20 13:01 Last Admin: 03/17/20 12:59 Dose: 400 mg Documented by: Iopamidol (Isovue-300 (61%)) 112 ml IV ONETIME ONE Stop: 03/15/20 11:17 Last Admin: 03/15/20 19:33 Dose: Not Given Documented by: Iopamidol (Isovue-370 (76%)) 100 ml IV . DIRECTED [facility] Last Admin: 12/07/20 19:31 Dose: 100 ml Documented by: Lactobacillus Rhamnosus (Culturelle) 1 cap PO BID [facility] Last Admin: 03/18/20 08:56 Dose: 1 cap Documented by: Lidocaine/Epinephrine (Xylocaine 1% With Epinephrine 1:100,000) Confirm Administered Dose 50 ml .ROUTE .STK-MED ONE Stop: 03/17/20 10:55 Last Admin: 03/17/20 11:30 Dose: 3.5 ml Documented by: Lidocaine/Epinephrine (Xylocaine 1% With Epinephrine 1:100,000) Confirm Administered Dose 50 ml .ROUTE .STK-MED ONE Stop: 03/30/20 07:10 Last Admin: 03/30/20 09:57 Dose: 5 ml Documented by: Lorazepam (Ativan) 1 mg IVPUSH ONETIME ONE Stop: 03/15/20 11:31 Last Admin: 03/15/20 11:40 Dose: 1 mg Documented by: Lorazepam (Ativan) 0.5 mg IVPUSH Q4H PRN PRN Reason: Nausea/Vomiting Lorazepam (Ativan) 0.5 mg IVPUSH ONETIME ONE Stop: 03/18/20 06:38 Last Admin: 03/18/20 07:04 Dose: 0.5 mg Documented by: Lorazepam (Ativan) 0.5 mg IVPUSH Q2H PRN PRN Reason: Anxiety Last Admin: 03/24/20 09:36 Dose: 0.5 mg Documented by: Lorazepam (Ativan) 0.5 mg PO Q4H PRN PRN Reason: Anxiety Last Admin: 03/29/20 21:49 Dose: 0.5 mg Documented by: Midazolam HCl (Versed 1 Mg/Ml) Confirm Administered Dose 2 mg .ROUTE .STK-MED ONE Stop: 03/17/20 09:56 Midazolam HCl (Versed 1 Mg/Ml) Confirm Administered Dose 2 mg .ROUTE .STK-MED ONE Stop: 03/30/20 07:49 Non-Formulary Medication (Total Parenteral Nutrition, Central) 1,000 ml .XX .Continue Order [facility] Stop: 03/17/20 08:01 Non-Formulary Medication (Total Parenteral Nutrition, Central) 0 ml IV ONETIME [facility] Stop: 03/20/20 12:01 Non-Formulary Medication (Total Parenteral Nutrition, Central) 0 ml IV ONETIME [facility] Stop: 03/21/20 12:00 Olanzapine (Zyprexa) 5 mg IM ONETIME ONE Stop: 03/24/20 11:01 Last Admin: 03/24/20 10:59 Dose: 5 mg Documented by: Oxycodone HCl (Oxycodone) 5 mg PO Q4H PRN PRN Reason: Pain Last Admin: 03/17/20 13:29 Dose: 5 mg Documented by: Pantoprazole Sodium (Protonix Iv) 40 mg IV Q12H CASSIE Last Admin: 03/22/20 03:09 Dose: 40 mg Documented by: Propofol (Diprivan 20 Ml) Confirm Administered Dose 200 mg .ROUTE .STK-MED ONE Stop: 03/17/20 09:55 Propofol (Diprivan 20 Ml) Confirm Administered Dose 200 mg .ROUTE .STK-MED ONE Stop: 03/18/20 11:22 Propofol (Diprivan 20 Ml) Confirm Administered Dose 200 mg .ROUTE .STK-MED ONE Stop: 03/30/20 07:49 Sodium Chloride (Saline Flush) 10 ml FLUSH ASDIRECTED PRN PRN Reason: Keep Vein Open Last Admin: 03/15/20 10:11 Dose: 10 ml Documented by: Sodium Chloride (Saline Flush) 10 ml FLUSH ONETIME ONE Stop: 03/15/20 11:17 Last Admin: 03/16/20 19:31 Dose: 10 ml Documented by: Sodium Chloride (Normal Saline) 10 ml FLUSH ONETIME ONE Stop: 03/16/20 17:53 Last Admin: 03/16/20 20:53 Dose: Not Given Documented by: Succinylcholine Chloride (Quelicin) Confirm Administered Dose 200 mg .ROUTE .STK-MED ONE Stop: 03/18/20 11:22 Tizanidine HCl (Zanaflex) 4 mg PO Q6H PRN PRN Reason: muscle cramps Last Admin: 03/18/20 04:05 Dose: 4 mg Documented by: Vancomycin HCl (Vancomycin) 1 gm IV .PHARMACY TO DOSE CASSIE Stop: 03/17/20 18:01 - Exam General: Reports: Alert, Oriented, Cooperative, Mild Distress Lungs: Reports: Clear to Auscultation, Normal Respiratory Effort Cardiovascular: Reports: Regular Rate, Regular Rhythm, No Murmurs GI/Abdominal Exam: Soft, Non-Tender, No Organomegaly, No Distention Extremities: Non-Tender, No Pedal Edema
[2020-03-31] MEDS: cefTRIAXone 2 GM in Sodium Chloride 0.9% 50 ML IV SCH (16:59)
--- NOTE | 2020-04-05 19:17 | OR ---
DATE OF PROCEDURE: 03/30/2020 SURGEON: Shamar Reno MD PREOPERATIVE DIAGNOSIS: Indications for central venous access. POSTOPERATIVE DIAGNOSIS: Indications for central venous access. OPERATIVE PROCEDURE: Placement of double-lumen James catheter via left subclavian vein approach ([id number]). ANESTHESIA: Local plus IV sedation. INDICATIONS FOR PROCEDURE: This is a 59-year-old female new to short bowel syndrome is dependent on frequent IV fluid infusions and has limited peripheral venous access and is chronically maintained with central line. She recently had her line infected and this was removed and replaced with a temporary line. At this point, she is far enough long with the antibiotics that the plan is to proceed with insertion of a new permanent or semi-permanent central line. Potential risks of the procedure including bleeding, infection, and pneumohemothorax, and vascular injury such were reviewed and the patient wishes to proceed. DETAILS OF PROCEDURE: The patient was taken to the operating room and placed in the supine position. After IV sedation was administered, the upper chest and neck areas were prepped and draped. The left subclavian vein area was anesthetized with 1% lidocaine mixed with Marcaine and then cannulated and the guidewire manipulated from there into the superior vena cava. Some additional local was injected in the infraclavicular area and a 4 fingerbreadths tunnel created where the James catheter was brought from the inferior aspect up to the original puncture site and was cut such that the tip would lie in the area of the right atrial superior vena cava junction, and using an introducer and peel-away catheter, it was deployed without difficulty. Good in and outflow were confirmed in the catheter and the ports were flushed with heparinized saline. The catheter was sutured at the external site with 3-0 nylon stitch and then the original puncture site closed with a 4-0 Vicryl subcuticular stitch and Steri-Strips applied. The patient was taken to the recovery room in satisfactory condition where the previous temporary triple lumen catheter will be removed. Shamar Reno MD /[id number]
== END 2020-03-31 19:01 | DRG 252 ==
LOC: JP.ED 09:01 → JP.2SS 14:32 → JP.ICU 03-17 12:00 → JP.MS 03-28 12:30
PROVIDERS: ADMIT Internal Medicine; ATTEND Hospitalist
PROC: 05PY03Z Removal of Infusion Device from Upper Vein, Open Approach (ICD-10-PCS; 2020-03-17)
PROC: 02HV33Z Insertion of Infusion Device into Superior Vena Cava, Percutaneous Approach (ICD-10-PCS; 2020-03-17)
PROC: 30233N1 Transfusion of Nonautologous Red Blood Cells into Peripheral Vein, Percutaneous Approach (ICD-10-PCS; principal; 2020-03-18)
PROC: 5A1955Z Respiratory Ventilation, Greater than 96 Consecutive Hours (ICD-10-PCS; 2020-03-18)
PROC: 0BH17EZ Insertion of Endotracheal Airway into Trachea, Via Natural or Artificial Opening (ICD-10-PCS; 2020-03-18)
DX: K56.609 Unspecified intestinal obstruction, unspecified as to partial versus complete obstruction (principal); T80.211A Bloodstream infection due to central venous catheter, initial encounter; A41.81 Sepsis due to Enterococcus; F32.9 Major depressive disorder, single episode, unspecified; R65.21 Severe sepsis with septic shock; J18.9 Pneumonia, unspecified organism; J96.01 Acute respiratory failure with hypoxia; D61.818 Other pancytopenia; K50.918 Crohn's disease, unspecified, with other complication; K56.51 Intestinal adhesions [bands], with partial obstruction; N18.31 Chronic kidney disease, stage 3a; G89.29 Other chronic pain; R10.9 Unspecified abdominal pain; R16.1 Splenomegaly, not elsewhere classified; D64.9 Anemia, unspecified; H54.7 Unspecified visual loss; K52.9 Noninfective gastroenteritis and colitis, unspecified; G43.909 Migraine, unspecified, not intractable, without status migrainosus; E53.8 Deficiency of other specified B group vitamins; Z87.442 Personal history of urinary calculi; Z90.89 Acquired absence of other organs; Z90.49 Acquired absence of other specified parts of digestive tract; Z79.899 Other long term (current) drug therapy; Z90.710 Acquired absence of both cervix and uterus; Z93.2 Ileostomy status; Z20.828 Contact with and (suspected) exposure to other viral communicable diseases
CPT/HCPCS: 36415; 74177; 80053; 83690; 83735; 85027; 86140; 96365; 96366; 96375; 96376; 99284; 99285; A9270; J1170 ×3; J2060; J3475; J7030; 36430; 36600; 51702; 71045; 71045-26; 71046; 71046-26; 71250; 71250-26; 71275; 74019; 74019-26; 74022; 74022-26; 74176; 74176-26; 76700; 76700-26; 80048; 80202; 81001; 82140; 82248; 82803; 83605; 84100; 84484; 85018; 85025; 86850; 86870; 86900; 86901; 86902; 86920; 86922; 87040; 87070; 87075; 87077; 87186; 87205; 93005; 93010; 93306; 94002; 94003; 94660; 94799; 97110-GP; 97116-GP; 97162-GP; 97530-GP; C9113; J0131; J0287; J0290; J0330; J0696; J1642; J1644; J1650; J1940; J1956; J2001; J2185; J2250; J2405; J2543; J2704; J3010; J3370; J3490; J7040; J7050; J7060; J7120; P9016; Q9967; U0002

== ENCOUNTER 2020-06-09 05:07 | Emergency (ER) | payer OTHER, MEDICARE ==
[2020-06-09] MEDS ORDERED: HYDROmorphone 0.5 MG/0.5 ML Syringe IVPUSH ONE ×2 (06:00→07:11)
--- NOTE | 2020-06-09 06:09 | EDM.PDOC ---
<Yair Sainz - Last Filed: 06/09/20 06:55> ED HPI GENERAL MEDICAL PROBLEM - General Chief Complaint: General Stated Complaint: NOT FEELING WELL Time Seen by Provider: 06/09/20 06:00 Source of Information: Reports: Patient, Family History Limitations: Reports: No Limitations - History of Present Illness INITIAL COMMENTS - FREE TEXT/NARRATIVE: 59-year-old female with chronic pain issues and chronic fatigue who has a history of sepsis and a GI fistula presents with intermittent fevers for the past week, weakness, increased pain in her abdomen and decreased output in her ileostomy. She has been seeing a physician down in [place], she has been receiving 2 L of normal saline daily infusions as well as several grams of magnesium several times a week. Her abdominal pain is worse in the left upper quadrant, a small amount of bloating or distention is present. She is passing her urine without difficulty. Onset: Gradual Duration: Week(s): (Weakness for 2 weeks) Location: Reports: Generalized Associated Symptoms: Reports: Fever/Chills, Loss of Appetite, Malaise, Weakness. Denies: Confusion, Chest Pain, Cough, Diaphoresis, Shortness of Breath - Related Data Allergies Allergy/AdvReac Type Severity Reaction Status Date / Time No Known Allergies Allergy Verified 06/09/20 05:13 Home Meds: Home Meds Acetaminophen [Acetaminophen Extra Strength] 1,000 mg PO Q4HR PRN 06/17/19 [History] Cyanocobalamin (Vitamin B-12) [Cyanocobalamin Injection] 1 ml IM ASDIRECTED 06/17/19 [History] Imipramine HCl 200 mg PO BEDTIME 06/17/19 [History] Nystatin [Nystatin Oint] 1 dose TOP BID PRN 06/17/19 [History] Ondansetron [Zofran ODT] 4 mg PO Q4HR PRN 06/17/19 [History] Pedi Multivit No.25/Folic Acid [Flintstones Multivit Chew Tab] 1 tab PO DAILY 06/17/19 [History] SUMAtriptan [Imitrex] 50 mg PO BTNUNITS PRN 06/17/19 [History] DULoxetine [Cymbalta] 60 mg PO DAILY cap 09/16/19 [Rx] Lactobacillus Rhamnosus GG [Culturelle] 1 cap PO BID #60 cap 09/16/19 [Rx] Melatonin 9 mg PO BEDTIME tablet 09/16/19 [Rx] Atropine/Diphenoxylate [Diphenoxylate-Atropine] 2 tab PO Q6H 10/22/19 [History] Magnesium Oxide 400 mg PO TID 10/22/19 [History] Psyllium Seed (With Sugar) [Metamucil Fiber Wafer] 2 each PO TID #180 wafer 11/01/19 [Rx] Cholestyramine/Sucrose [Cholestyramine] 4 gm PO QID #120 packet 12/18/19 [Rx] Amylase/Lipase/Protease [Gus BEE 12,000 Units] 2 cap PO TID 01/19/20 [History] Magnesium Sulfate/D5W [Magnesium 2 Gram/50 ml-D5w] 2 gm IV ASDIRECTED 01/19/20 [History] OLANZapine [Olanzapine] 5 mg PO BID 03/10/20 [History] Loperamide [Imodium] 2 mg PO Q4H PRN 03/15/20 [History] LORazepam [Ativan] 0.5 mg PO Q6H PRN tablet 03/31/20 [Rx] tiZANidine [Zanaflex] 4 mg PO BID PRN tablet 03/31/20 [Rx] traMADol [Ultram] 2 tab PO Q6H PRN 06/09/20 [History] Past Medical History HEENT History: Reports: Impaired Vision Cardiovascular History: Reports: Arrhythmia Gastrointestinal History: Reports: Bowel Obstruction, Chronic Diarrhea, Other (See Below) Other Gastrointestinal History: hernia, multiple bowel surgerys, short gut syndrome Genitourinary History: Reports: Renal Calculus 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: Neurological History: Reports: Migraines Psychiatric History: Reports: Anxiety Endocrine/Metabolic History: Reports: Hypomagnesemia Hematologic History: Reports: Anemia, B12 Deficiency, Blood Transfusion(s), Folic Acid, Iron Deficiency Other Hematologic History: magnesium deficiency Oncologic (Cancer) History: Reports: None - Infectious Disease History Infectious Disease History: Reports: Chicken Pox, Measles, Mumps - Past Surgical History Head Surgeries/Procedures: Reports: None HEENT Surgical History: Reports: Adenoidectomy, Tonsillectomy Cardiovascular Surgical History: Reports: Cardiac Ablation GI Surgical History: Reports: Appendectomy, Colonoscopy, EGD, Other (See Below) Other GI Surgeries/Procedures: hernia, has ileostomy. ileostomy Female Surgical History: Reports: Hysterectomy, Other (See Below) Other Female Surgeries/Procedures: nephrectomy left Neurological Surgical History: Reports: None Dermatological Surgical History: Reports: None Social & Family History - Family History Family Medical History: No Pertinent Family History - Tobacco Use Tobacco Use Status *Q: Never Tobacco User Second Hand Smoke Exposure: No - Caffeine Use Caffeine Use: Reports: Soda - Recreational Drug Use Recreational Drug Use: No ED ROS GENERAL - Review of Systems Review Of Systems: See Below Constitutional: Reports: Fever, Chills, Malaise, Decreased Appetite HEENT: Reports: Other (Developing fever blisters on her lips and mucous membranes) Respiratory: Denies: Shortness of Breath, Cough Cardiovascular: Denies: Chest Pain GI/Abdominal: Reports: Abdominal Pain, Other (Abdominal pain is chronic, she has had an ileostomy for years) : Reports: No Symptoms Musculoskeletal: Reports: Back Pain ED EXAM, GENERAL - Physical Exam Exam: See Below Exam Limited By: No Limitations General Appearance: Alert, No Apparent Distress (She is somewhat tearful but does not appear to be in distress) Eye Exam: Bilateral Eye: Normal Inspection (No jaundice, no dehydration) Throat/Mouth: Other (She does have a small dry lesions on the lower lip typical of small cold sores, and a few shallow ulcerations on the inside of the lip) Head: Atraumatic Neck: Supple, Non-Tender Respiratory/Chest: Lungs Clear Cardiovascular: Regular Rate, Rhythm GI/Abdominal: No Distention, Guarding (Diffuse guarding to any palpation), Other (Bowel sounds are mildly hypoactive) Extremities: Normal Inspection Neurological: Alert, Oriented Psychiatric: Depressed Mood, Flat Affect, Tearful Course - Re-Assessments/Exams Free Text/Narrative Re-Assessment/Exam: 06/09/20 06:09 Patient kept asking for something for pain because the "tramadol is not working". She was given 0.5 mg of IV Dilaudid. CBC, CMP, CRP, magnesium and blood cultures were drawn as well as a UA mini cath. 06/09/20 06:48 White count is 5000, hemoglobin 8.5. Magnesium 1.5, CRP is 2.7. She remained afebrile while in the emergency room. The 0.5 of Dilaudid gave her some significant pain relief. A CT of the abdomen and pelvis without contrast was ordered, unfortunately contrast was avoided because of her kidney function. Patient care was turned over to Dr. Glynn, UA is still pending as well as her 4 Plex viral study Departure - Departure Disposition: Home, Self-Care 01 Clinical Impression: Nonspecific abdominal pain - Discharge Information Instructions: Abdominal Pain, Adult, [id number] Referrals: Lisa Gerber MD [Primary Care Provider] - Forms: ED Department Discharge Additional Instructions: Continue your usual medications. Try taking simethicone per package instructions for gas build up. F/U with Dr. Gerber if symptoms persist. All of today's test came back looking good with no evidence on any of your tests for any ongoing infections. Sepsis Event Note (ED) - Evaluation Sepsis Screening Result: No Definite Risk <Damir Glynn - Last Filed: 06/09/20 07:55> Course - Vital Signs Last Recorded V/S: Last Vital Signs Temp 37.2 C 06/09/20 05:26 Pulse 91 06/09/20 05:26 Resp 18 06/09/20 05:26 BP 166/93 H 06/09/20 05:26 Pulse Ox 99 06/09/20 05:26 - Orders/Labs/Meds Orders: Active Orders 24 hr Category Date Time Status CULTURE BLOOD [BC] Urgent Lab 06/09/20 06:10 Received CULTURE BLOOD [BC] Urgent Lab 06/09/20 06:10 Received Simethicone Med 06/09/20 07:52 Once 160 mg PO ONETIME ONE Blood Culture x2 Reflex Set [OM.PC] Urgent Oth 06/09/20 05:59 Ordered Medication Orders Simethicone (Simethicone) 160 mg PO ONETIME ONE Stop: 06/09/20 07:53 Labs: Laboratory Tests 06/09/20 06/09/20 06/09/20 Range/Units 06:03 06:10 06:10 WBC 5.0 (4.5-11.0) K/uL RBC 2.77 L (3.30-5.50) M/uL Hgb 8.4 L (12.0-15.0) g/dL Hct 26.6 L (36.0-48.0) % MCV 96 (80-98) fL MCH 30 (27-31) pg MCHC 32 (32-36) % Plt Count 181 (150-400) K/uL Neut % (Auto) 81 H (36-66) % Lymph % (Auto) 15 L (24-44) % [place] % (Auto) 4 (2-6) % Eos % (Auto) 0 L (2-4) % Baso % (Auto) 0 (0-1) % Sodium 133 L (140-148) mmol/L Potassium 4.4 (3.6-5.2) mmol/L Chloride 98 L (100-108) mmol/L Carbon Dioxide 23 (21-32) mmol/L Anion Gap 16.4 H (5.0-14.0) mmol/L BUN 11 (7-18) mg/dL Creatinine 1.4 H (0.6-1.0) mg/dL Est Cr Clr Drug Dosing 41.55 mL/min Estimated GFR (MDRD) 38 L (>60) Glucose 102 (74-106) mg/dL Calcium 9.9 D (8.5-10.1) mg/dL Magnesium 1.5 L (1.8-2.4) mg/dL Total Bilirubin 0.7 D (0.2-1.0) mg/dL AST 17 (15-37) U/L ALT 16 (12-78) U/L Alkaline Phosphatase 192 H (46-116) U/L C-Reactive Protein 2.70 H (0.0-0.3) mg/dL Total Protein 9.6 H (6.4-8.2) g/dL Albumin 3.5 (3.4-5.0) g/dL Globulin 6.1 H (2.3-3.5) g/dL Albumin/Globulin Ratio 0.6 L (1.2-2.2) Amylase 66 (25-115) U/L Lipase 64 L (73-393) U/L Urine Color (YELLOW) Urine Appearance (CLEAR) Urine pH (5.0-8.0) Ur Specific [place] (1.008-1.030) Urine Protein (NEGATIVE) mg/dL Urine Glucose (UA) (NEGATIVE) mg/dL Urine Ketones (NEGATIVE) mg/dL Urine Occult Blood (NEGATIVE) Urine Nitrite (NEGATIVE) Urine Bilirubin (NEGATIVE) Urine Urobilinogen (0.2-1.0) EU/dL Ur Leukocyte Esterase (NEGATIVE) Urine RBC (0-5) Urine WBC (0-5) Ur Epithelial Cells Amorphous Sediment Urine Bacteria Urine Mucus Urine Other Influenza Type A RNA (NEGATIVE) RSV RNA (INAAT) (NEGATIVE) Influenza Type B RNA (NEGATIVE) SARS-CoV-2 RNA (BJ) (NEGATIVE) 06/09/20 06/09/20 Range/Units 06:37 06:37 WBC (4.5-11.0) K/uL RBC (3.30-5.50) M/uL Hgb (12.0-15.0) g/dL Hct (36.0-48.0) % MCV (80-98) fL MCH (27-31) pg MCHC (32-36) % Plt Count (150-400) K/uL Neut % (Auto) (36-66) % Lymph % (Auto) (24-44) % [place] % (Auto) (2-6) % Eos % (Auto) (2-4) % Baso % (Auto) (0-1) % Sodium (140-148) mmol/L Potassium (3.6-5.2) mmol/L Chloride (100-108) mmol/L Carbon Dioxide (21-32) mmol/L Anion Gap (5.0-14.0) mmol/L BUN (7-18) mg/dL Creatinine (0.6-1.0) mg/dL Est Cr Clr Drug Dosing mL/min Estimated GFR (MDRD) (>60) Glucose (74-106) mg/dL Calcium (8.5-10.1) mg/dL Magnesium (1.8-2.4) mg/dL Total Bilirubin (0.2-1.0) mg/dL AST (15-37) U/L ALT (12-78) U/L Alkaline Phosphatase (46-116) U/L C-Reactive Protein (0.0-0.3) mg/dL Total Protein (6.4-8.2) g/dL Albumin (3.4-5.0) g/dL Globulin (2.3-3.5) g/dL Albumin/Globulin Ratio (1.2-2.2) Amylase (25-115) U/L Lipase (73-393) U/L Urine Color Yellow (YELLOW) Urine Appearance Clear (CLEAR) Urine pH 8.5 H (5.0-8.0) Ur Specific [place] 1.020 (1.008-1.030) Urine Protein 30 H (NEGATIVE) mg/dL Urine Glucose (UA) Negative (NEGATIVE) mg/dL Urine Ketones Negative (NEGATIVE) mg/dL Urine Occult Blood Trace-intact H (NEGATIVE) Urine Nitrite Negative (NEGATIVE) Urine Bilirubin Negative (NEGATIVE) Urine Urobilinogen 0.2 (0.2-1.0) EU/dL Ur Leukocyte Esterase Negative (NEGATIVE) Urine RBC 0-5 (0-5) Urine WBC 0-5 (0-5) Ur Epithelial Cells Not seen Amorphous Sediment Rare Urine Bacteria Rare Urine Mucus Occasional Urine Other Influenza Type A RNA Negative (NEGATIVE) RSV RNA (INAAT) Negative (NEGATIVE) Influenza Type B RNA Negative (NEGATIVE) SARS-CoV-2 RNA (BJ) Negative (NEGATIVE) Meds: Medications Generic Name Dose Route Start Last Admin Trade Name Freq PRN Reason Stop Dose Admin Simethicone 160 mg 06/09/20 07:52 Simethicone PO 06/09/20 07:53 ONETIME ONE Discontinued Medications Generic Name Dose Route Start Last Admin Trade Name Freq PRN Reason Stop Dose Admin Hydromorphone HCl 0.5 mg 06/09/20 06:00 06/09/20 06:20 Dilaudid IVPUSH 06/09/20 06:01 0.5 mg ONETIME ONE Administration Hydromorphone HCl 0.5 mg 06/09/20 07:11 06/09/20 07:19 Dilaudid IVPUSH 06/09/20 07:12 0.5 mg ONETIME ONE Administration Departure - Departure Time of Disposition: 08:05 Condition: Fair - Discharge Information *PRESCRIPTION DRUG MONITORING PROGRAM REVIEWED*: No *COPY OF PRESCRIPTION DRUG MONITORING REPORT IN PATIENT MYLA: No Sepsis Event Note (ED) - Focused Exam Vital Signs: Vital Signs Temp Pulse Resp BP Pulse Ox 06/09/20 05:26 37.2 C 91 18 166/93 H 99 - My Orders Last 24 Hours: My Active Orders 06/09/20 07:52 Simethicone 160 mg PO ONETIME ONE - Assessment/Plan Last 24 Hours: My Active Orders 06/09/20 07:52 Simethicone 160 mg PO ONETIME ONE
[2020-06-09 07:17] LABS: CORONAVIRUS COVID-19 NAA NEGATIVE (NEGATIVE)
--- NOTE | 2020-06-09 07:51 | CRLCT ---
INDICATION: General abdominal pain. TECHNIQUE: CT of the abdomen and pelvis without intravenous contrast. Coronal and sagittal reconstructions. COMPARISON: CT of the abdomen and pelvis 03/23/2020. FINDINGS: Hepatomegaly has slightly decreased measuring 23.4 seemingly today compared to 27.5 cm previously. Splenomegaly has slightly decreased measuring 20.8 cm in length today compared to 23.6 cm previously. Previously seen irregular area of low attenuation in the inferior aspect of the spleen is also decreased in size (series 3, image 58). 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 Cholelithiasis. No biliary dilation. The adrenal glands are negative. Status post left nephrectomy. No right hydronephrosis or ureteral dilation. The unenhanced bladder is unremarkable. Postoperative changes of colectomy with right lower quadrant ostomy. There are a few mildly prominent fluid-filled loops of small bowel in the right pelvis without definite evidence of obstruction. Previously seen small bowel wall thickening and mesenteric edema has resolved. No intraperitoneal free air or fluid. No lymphadenopathy. Subcutaneous calcifications in the buttocks bilaterally. Mild degenerative changes of the lower lumbar spine. Near complete resolution of previously seen multiple pulmonary nodules and ground-glass opacities in both lung bases. There are a few residual small pulmonary nodules in the anterior right and left lower lobes. IMPRESSION: 1. No acute findings in the abdomen or pelvis on this noncontrast exam. 2. Previously seen small bowel wall thickening and mesenteric edema has resolved. There are a few mildly prominent fluid-filled loops of small bowel in the right pelvis without definite evidence of obstruction. 3. Persistent but improved hepatosplenomegaly. 4. 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 5. Near complete resolution of previously seen multiple pulmonary nodules and ground-glass opacities in the lung bases. Please note that all CT scans at this facility use dose modulation, iterative reconstruction, and/or weight-based dosing when appropriate to reduce radiation dose to as low as reasonably achievable. Dictated by Aline Valera MD @ Jun 09 2020 7:34AM Signed by Dr. Aline Valera @ Jun 09 2020 7:50AM
[2020-06-09] MEDS ORDERED: Simethicone 80 MG Tab.Chew PO ONE (07:52)
== END 2020-06-09 08:25 | disposition home or self-care (01) ==
LOC: JP.ED 05:07
DX: R10.12 Left upper quadrant pain (principal); Z20.822 Contact with and (suspected) exposure to COVID-19
CPT/HCPCS: 0241U; 36415; 74176; 80053; 81001; 82150; 83690; 83735; 85025; 86140; 87040; 87077; 87186; 96374; 96376; 99284; A9270; J1170; J1642

== ENCOUNTER 2020-06-09 18:05 | Inpatient (IN) | payer MEDICARE, OTHER ==
[2020-06-09] MEDS ORDERED: HYDROmorphone 1 MG/ML Syringe IM ONE (18:41)
--- NOTE | 2020-06-09 18:47 | EDM.PDOC ---
ED HPI GENERAL MEDICAL PROBLEM - General Chief Complaint: Fever Stated Complaint: FEVER Time Seen by Provider: 06/09/20 18:20 Source of Information: Reports: Patient, Family History Limitations: Reports: No Limitations - History of Present Illness INITIAL COMMENTS - FREE TEXT/NARRATIVE: 59-year-old female was worked up fairly extensively this morning for fever of unknown origin for the past week and a half. She was given 1 g of Rocephin and discharged. Her initial blood culture from her port grew some gram-positive cocci so she was called and told to come back in if she is still running fevers. She has no fever now but she claims it jumped to 101 this afternoon. No shortness of breath but is still having back pain and abdominal pain which is chronic. She is asking for Dilaudid. Onset: Unknown/Unsure Associated Symptoms: Reports: Fever/Chills, Other (Abdominal and back pain) - Related Data Allergies Allergy/AdvReac Type Severity Reaction Status Date / Time No Known Allergies Allergy Verified 06/09/20 18:30 Home Meds: Home Meds Acetaminophen [Acetaminophen Extra Strength] 1,000 mg PO Q4HR PRN 06/17/19 [History] Cyanocobalamin (Vitamin B-12) [Cyanocobalamin Injection] 1 ml IM ASDIRECTED 06/17/19 [History] Imipramine HCl 200 mg PO BEDTIME 06/17/19 [History] Nystatin [Nystatin Oint] 1 dose TOP BID PRN 06/17/19 [History] Ondansetron [Zofran ODT] 4 mg PO Q4HR PRN 06/17/19 [History] Pedi Multivit No.25/Folic Acid [Flintstones Multivit Chew Tab] 1 tab PO DAILY 06/17/19 [History] SUMAtriptan [Imitrex] 50 mg PO BTNUNITS PRN 06/17/19 [History] DULoxetine [Cymbalta] 60 mg PO DAILY cap 09/16/19 [Rx] Lactobacillus Rhamnosus GG [Culturelle] 1 cap PO BID #60 cap 09/16/19 [Rx] Melatonin 9 mg PO BEDTIME tablet 09/16/19 [Rx] Atropine/Diphenoxylate [Diphenoxylate-Atropine] 2 tab PO Q6H 10/22/19 [History] Magnesium Oxide 400 mg PO TID 10/22/19 [History] Psyllium Seed (With Sugar) [Metamucil Fiber Wafer] 2 each PO TID #180 wafer 11/01/19 [Rx] Cholestyramine/Sucrose [Cholestyramine] 4 gm PO QID #120 packet 12/18/19 [Rx] Amylase/Lipase/Protease [Gus BEE 12,000 Units] 2 cap PO TID 01/19/20 [History] Magnesium Sulfate/D5W [Magnesium 2 Gram/50 ml-D5w] 2 gm IV ASDIRECTED 01/19/20 [History] OLANZapine [Olanzapine] 5 mg PO BID 03/10/20 [History] Loperamide [Imodium] 2 mg PO Q4H PRN 03/15/20 [History] LORazepam [Ativan] 0.5 mg PO Q6H PRN tablet 03/31/20 [Rx] tiZANidine [Zanaflex] 4 mg PO BID PRN tablet 03/31/20 [Rx] traMADol [Ultram] 2 tab PO Q6H PRN 06/09/20 [History] Past Medical History HEENT History: Reports: Impaired Vision Cardiovascular History: Reports: Arrhythmia Gastrointestinal History: Reports: Bowel Obstruction, Chronic Diarrhea, Other (See Below) Other Gastrointestinal History: hernia, multiple bowel surgerys, short gut syndrome Genitourinary History: Reports: Renal Calculus [employer]UB W[employer]ER History: Reports: Neurological History: Reports: Migraines Psychiatric History: Reports: Anxiety Endocrine/Metabolic History: Reports: Hypomagnesemia Hematologic History: Reports: Anemia, B12 Deficiency, Blood Transfusion(s), Folic Acid, Iron Deficiency Other Hematologic History: magnesium deficiency Oncologic (Cancer) History: Reports: None - Infectious Disease History Infectious Disease History: Reports: Chicken Pox, Measles, Mumps - Past Surgical History Head Surgeries/Procedures: Reports: None HEENT Surgical History: Reports: Adenoidectomy, Tonsillectomy Cardiovascular Surgical History: Reports: Cardiac Ablation GI Surgical History: Reports: Appendectomy, Colonoscopy, EGD, Other (See Below) Other GI Surgeries/Procedures: hernia, has ileostomy. ileostomy Female Surgical History: Reports: Hysterectomy, Other (See Below) Other Female Surgeries/Procedures: nephrectomy left Neurological Surgical History: Reports: None Dermatological Surgical History: Reports: None Social & Family History - Family History Family Medical History: No Pertinent Family History - Tobacco Use Tobacco Use Status *Q: Never Tobacco User - Caffeine Use Caffeine Use: Reports: Soda - Recreational Drug Use Recreational Drug Use: No ED ROS GENERAL - Review of Systems Review Of Systems: See Below Constitutional: Reports: Fever, Chills, Malaise HEENT: Denies: Throat Pain, Vision Change Respiratory: Denies: Shortness of Breath, Cough Cardiovascular: Reports: Lightheadedness. Denies: Chest Pain GI/Abdominal: Reports: Abdominal Pain, Nausea. Denies: Vomiting : Reports: No Symptoms Musculoskeletal: Reports: Back Pain, Muscle Pain Skin: Reports: No Symptoms Neurological: Reports: Dizziness, Weakness. Denies: Headache ED EXAM, SEPSIS - Physical Exam Exam: See Below Exam Limited By: No Limitations General Appearance: Alert, No Apparent Distress Eye Exam: Bilateral Eye: Normal Inspection Throat/Mouth: Other (Small scabbed lesions on the lower lip and a few small ulcerative lesions on the inside mucosa) Head: Atraumatic Neck: Supple, Non-Tender Respiratory/Chest: Lungs Clear Cardiovascular: Regular Rate, Rhythm. No: Tachycardia GI/Abdominal Exam: Normal Bowel Sounds, Tender (Diffuse tenderness and guarding is present around the abdomen) Extremities: No: Pedal Edema Neurological: Alert, Oriented Psychiatric: Depressed Mood, Flat Affect Skin: Warm, Dry Course - Vital Signs Last Recorded V/S: Last Vital Signs Temp 97.1 F 06/09/20 20:00 Pulse 91 06/09/20 20:00 Resp 18 06/09/20 20:00 BP 191/82 H 06/09/20 20:02 Pulse Ox 100 06/09/20 20:00 - Orders/Labs/Meds Orders: Medication Orders Acetaminophen (Tylenol) 650 mg PO Q4H PRN PRN Reason: Pain (Mild 1-3)/fever Lipase/Protease/Amylase (Creon Dr 12,000 Units) 2 cap PO TID [facility] Cholestyramine Resin (Cholestyramine Packet) 4 gm PO QID [facility] Diphenoxylate HCl/Atropine (Lomotil 0.025-2.5 Mg) 2 tab PO Q6H [facility] Last Admin: 06/09/20 20:50 Dose: 2 tab Documented by: ANNA Duloxetine HCl (Cymbalta) 60 mg PO DAILY [facility] Enoxaparin Sodium (Lovenox) 40 mg SUBCUT DAILY [facility] Last Admin: 06/09/20 20:51 Dose: 40 mg Documented by: ANNA Vancomycin HCl 0.75 gm/ Sodium (Chloride) 250 mls @ 150 mls/hr IV ONETIME ONE Stop: 06/09/20 21:19 Last Admin: 06/09/20 20:32 Dose: 150 mls/hr Documented by: ANNA Sodium Chloride (Normal Saline) 1,000 mls @ 75 mls/hr IV ASDIRECTED [facility] Last Admin: 06/09/20 20:34 Dose: 75 mls/hr Documented by: ANNA Magnesium Sulfate (Magnesium Sulfate In Water 2 Gm/50 Ml) 2 gm in 50 mls @ 12.5 mls/hr IV Q6H [facility] Stop: 06/10/20 06:29 Last Admin: 06/09/20 20:49 Dose: 12.5 mls/hr Documented by: ANNA Vancomycin HCl 1.75 gm/ Sodium (Chloride) 500 mls @ 250 mls/hr IV ONETIME ONE Stop: 06/09/20 22:59 Vancomycin HCl 1 gm/ Sodium (Chloride) 250 mls @ 166.667 mls/hr IV Q24H [facility] Imipramine HCl (Imipramine Hcl) 200 mg PO BEDTIME [facility] Lactobacillus Rhamnosus (Culturelle) 1 cap PO BID [facility] Last Admin: 06/09/20 20:50 Dose: 1 cap Documented by: ANNA Loperamide HCl (Imodium) 2 mg PO Q4H PRN PRN Reason: Diarrhea Lorazepam (Ativan) 0.5 mg PO Q6H PRN PRN Reason: Anxiety Magnesium Oxide (Magnesium Oxide) 400 mg PO TID [facility] Melatonin (Melatonin) 9 mg PO BEDTIME [facility] Last Admin: 06/09/20 20:51 Dose: 9 mg Documented by: ANNA Non-Formulary Medication (Pedi Multivit No.25/Folic Acid [Flintstones Multivit Chew Tab]) 1 tab PO DAILY [facility] Olanzapine (Zyprexa) 5 mg PO BID [facility] Last Admin: 06/09/20 20:51 Dose: 5 mg Documented by: ANNA Ondansetron HCl (Zofran Odt) 4 mg PO Q6H PRN PRN Reason: Nausea able to take PO Psyllium Husk (Metamucil Fiber Wafer) 2 each PO TID [facility] Sodium Chloride (Saline Flush) 10 ml FLUSH ASDIRECTED PRN PRN Reason: Keep Vein Open Tizanidine HCl (Zanaflex) 4 mg PO BID PRN PRN Reason: Spasms Tramadol HCl (Ultram) 100 mg PO Q6H PRN PRN Reason: Pain Last Admin: 06/09/20 20:50 Dose: 100 mg Documented by: ANNA Vancomycin HCl (Vancomycin) 1 gm IV .PHARMACY TO DOSE [facility] Meds: Medications Generic Name Dose Route Start Last Admin Trade Name Freq PRN Reason Stop Dose Admin Acetaminophen 650 mg 06/09/20 20:03 Tylenol PO Q4H PRN Pain (Mild 1-3)/fever Lipase/Protease/Amylase 2 cap 06/09/20 21:[address] 12,000 Units PO TID [facility] Cholestyramine Resin 4 gm 06/09/20 22:00 Cholestyramine Packet PO QID [facility] Diphenoxylate HCl/Atropine 2 tab 06/09/20 21:00 06/09/20 20:50 Lomotil 0.025-2.5 Mg PO 2 tab Q6H [facility] Administration Duloxetine HCl 60 mg 06/10/20 09:00 Cymbalta PO DAILY [facility] Enoxaparin Sodium 40 mg 06/09/20 20:03 06/09/20 20:51 Lovenox SUBCUT 40 mg DAILY [facility] Administration Vancomycin HCl 0.75 gm/ Sodium 250 mls @ 150 mls/hr 06/09/20 19:40 06/09/20 20:32 Chloride IV 06/09/20 21:19 150 mls/hr ONETIME ONE Administration Sodium Chloride 1,000 mls @ 75 mls/hr 06/09/20 20:03 06/09/20 20:34 Normal Saline IV 75 mls/hr ASDIRECTED [facility] Administration Magnesium Sulfate 2 gm in 50 mls @ 12.5 mls/hr 06/09/20 20:30 06/09/20 20:49 Magnesium Sulfate In Water 2 Gm/50 Ml IV 06/10/20 06:29 12.5 mls/hr Q6H [facility] Administration Vancomycin HCl 1.75 gm/ Sodium 500 mls @ 250 mls/hr 06/09/20 21:00 Chloride IV 06/09/20 22:59 ONETIME ONE Vancomycin HCl 1 gm/ Sodium 250 mls @ 166.667 mls/hr 06/10/20 21:00 Chloride IV Q24H [facility] Imipramine HCl 200 mg 06/09/20 21:00 Imipramine Hcl PO BEDTIME [facility] Lactobacillus Rhamnosus 1 cap 06/09/20 21:00 06/09/20 20:50 Culturelle PO 1 cap BID [facility] Administration Loperamide HCl 2 mg 06/09/20 20:03 Imodium PO Q4H PRN Diarrhea Lorazepam 0.5 mg 06/09/20 20:03 Ativan PO Q6H PRN Anxiety Magnesium Oxide 400 mg 06/09/20 21:00 Magnesium Oxide PO TID [facility] Melatonin 9 mg 06/09/20 21:00 06/09/20 20:51 Melatonin PO 9 mg BEDTIME [facility] Administration Non-Formulary Medication 1 tab 06/10/20 09:00 Pedi Multivit No.25/Folic Acid [Flintstones Multivit Chew Tab] PO DAILY [facility] Olanzapine 5 mg 06/09/20 21:00 06/09/20 20:51 Zyprexa PO 5 mg BID [facility] Administration Ondansetron HCl 4 mg 06/09/20 20:03 Zofran Odt PO Q6H PRN Nausea able to take PO Psyllium Husk 2 each 06/09/20 21:00 Metamucil Fiber Wafer PO TID [facility] Sodium Chloride 10 ml 06/09/20 20:03 Saline Flush FLUSH ASDIRECTED PRN Keep Vein Open Tizanidine HCl 4 mg 06/09/20 20:03 Zanaflex PO BID PRN Spasms Tramadol HCl 100 mg 06/09/20 20:03 06/09/20 20:50 Ultram PO 100 mg Q6H PRN Administration Pain Vancomycin HCl 1 gm 06/09/20 20:03 Vancomycin IV .PHARMACY TO DOSE [facility] Discontinued Medications Generic Name Dose Route Start Last Admin Trade Name Freq PRN Reason Stop Dose Admin Cefuroxime Axetil 500 mg 06/09/20 18:35 06/09/20 18:52 Ceftin PO 06/09/20 18:36 500 mg ONETIME ONE Administration Hydromorphone HCl 1 mg 06/09/20 18:41 06/09/20 18:54 Dilaudid IM 06/09/20 18:42 1 mg ONETIME ONE Administration Vancomycin HCl 750 gm/ Sodium 250 mls @ 150 mls/hr 06/09/20 18:58 Chloride IV 06/09/20 20:37 ONETIME ONE - Re-Assessments/Exams Free Text/Narrative Re-Assessment/Exam: 06/09/20 18:58 Further work-up is not necessary at this time. We are preparing to treat the patient as an outpatient until the rest of the cultures returned, but we were informed that her second blood culture had gram-positive cocci as well. Dr. Dickerson asked for an IV dose of vancomycin and he will come in to put her in the hospital Departure - Departure Time of Disposition: 19:51 Disposition: Admitted As Inpatient 65 Clinical Impression: Gram-positive bacteremia Abdominal pain Qualifiers: Abdominal location: generalized Qualified Code(s): R10.84 - Generalized abdominal pain - Discharge Information Sepsis Event Note (ED) - Evaluation Sepsis Screening Result: No Definite Risk - Focused Exam Vital Signs: Vital Signs Temp Pulse Resp BP Pulse Ox 06/09/20 18:29 97.7 F 98 18 193/97 H 100 06/09/20 18:17 97.7 F 98 18 193/97 H 100
--- NOTE | 2020-06-09 19:21 | PCM.HP.2 ---
H&P History of Present Illness - General Date of Service: 06/09/20 Admit Problem/Dx: Admission Diagnosis/Problem Admission Diagnosis/Problem Fever Source of Information: Patient, Family, Old Records, Provider, RN Notes Reviewed History Limitations: Reports: No Limitations - History of Present Illness Initial Comments - Free Text/Narative: Ms. Foley is a 59-year-old woman who was admitted through the emergency department with recurrent fevers and gram-positive bacteremia. 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 She has had recurrent episodes of small bowel obstruction most of which have been managed conservatively. She has had longstanding pancytopenia which was thought to be secondary to hepato and splenomegaly. In the past with episodes of small bowel obstruction has become dehydrated with acute kidney injury. She is also had ongoing difficulty with dehydration and hypomagnesemia. She does have a James catheter in place and infuses 2 L of LR daily and 4 g of magnesium 3 times a week. Her most recent hospitalization was about 3 months ago with septic shock and respiratory failure. Blood cultures were positive at that time for Enterococcus and Enterobacter. This required a prolonged hospitalization with much of her time spent in the intensive care unit. At one point she was intubated and also treated with norepinephrine. Transesophageal echo was obtained after that hospital stay and was negative for any evidence of endocarditis. She did have septic emboli to both lungs. Infection was felt to be secondary to previous James catheter which had been removed and a new catheter placed prior to discharge. She had done relatively well over the past few months, but now over the past 10 days has noted recurrent fevers with progressive weakness and anorexia. She was seen and evaluated earlier today in the emergency department white blood cell count was normal and procalcitonin level was within normal range. Blood cultures were obtained and are now showing growth of gram-positive cocci. She was called to come back to the emergency department because of the positive cultures both from the catheter as well as peripheral venous draw. She has already been given a dose of vancomycin in the emergency department. - Related Data Allergies/Adverse Reactions: Allergies Allergy/AdvReac Type Severity Reaction Status Date / Time No Known Allergies Allergy Verified 06/09/20 18:30 Home Medications: Home Meds Acetaminophen [Acetaminophen Extra Strength] 1,000 mg PO Q4HR PRN 06/17/19 [History] Cyanocobalamin (Vitamin B-12) [Cyanocobalamin Injection] 1 ml IM ASDIRECTED 06/17/19 [History] Imipramine HCl 200 mg PO BEDTIME 06/17/19 [History] Nystatin [Nystatin Oint] 1 dose TOP BID PRN 06/17/19 [History] Ondansetron [Zofran ODT] 4 mg PO Q4HR PRN 06/17/19 [History] Pedi Multivit No.25/Folic Acid [Flintstones Multivit Chew Tab] 1 tab PO DAILY 06/17/19 [History] SUMAtriptan [Imitrex] 50 mg PO BTNUNITS PRN 06/17/19 [History] DULoxetine [Cymbalta] 60 mg PO DAILY cap 09/16/19 [Rx] Lactobacillus Rhamnosus GG [Culturelle] 1 cap PO BID #60 cap 09/16/19 [Rx] Melatonin 9 mg PO BEDTIME tablet 09/16/19 [Rx] Atropine/Diphenoxylate [Diphenoxylate-Atropine] 2 tab PO Q6H 10/22/19 [History] Magnesium Oxide 400 mg PO TID 10/22/19 [History] Psyllium Seed (With Sugar) [Metamucil Fiber Wafer] 2 each PO TID #180 wafer 11/01/19 [Rx] Cholestyramine/Sucrose [Cholestyramine] 4 gm PO QID #120 packet 12/18/19 [Rx] Amylase/Lipase/Protease [Creon DR 12,000 Units] 2 cap PO TID 01/19/20 [History] Magnesium Sulfate/D5W [Magnesium 2 Gram/50 ml-D5w] 2 gm IV ASDIRECTED 01/19/20 [History] OLANZapine [Olanzapine] 5 mg PO BID 03/10/20 [History] Loperamide [Imodium] 2 mg PO Q4H PRN 03/15/20 [History] LORazepam [Ativan] 0.5 mg PO Q6H PRN tablet 03/31/20 [Rx] tiZANidine [Zanaflex] 4 mg PO BID PRN tablet 03/31/20 [Rx] traMADol [Ultram] 2 tab PO Q6H PRN 06/09/20 [History] Past Medical History HEENT History: Reports: Impaired Vision Cardiovascular History: Reports: Arrhythmia Gastrointestinal History: Reports: Bowel Obstruction, Chronic Diarrhea, Other (See Below) Other Gastrointestinal History: hernia, multiple bowel surgerys, short gut syndrome Genitourinary History: Reports: Renal Calculus [employer] History: Reports: Neurological History: Reports: Migraines Psychiatric History: Reports: Anxiety Endocrine/Metabolic History: Reports: Hypomagnesemia Hematologic History: Reports: Anemia, B12 Deficiency, Blood Transfusion(s), Folic Acid, Iron Deficiency Other Hematologic History: magnesium deficiency Oncologic (Cancer) History: Reports: None - Infectious Disease History Infectious Disease History: Reports: Chicken Pox, Measles, Mumps - Past Surgical History Head Surgeries/Procedures: Reports: None HEENT Surgical History: Reports: Adenoidectomy, Tonsillectomy Cardiovascular Surgical History: Reports: Cardiac Ablation GI Surgical History: Reports: Appendectomy, Colonoscopy, EGD, Other (See Below) Other GI Surgeries/Procedures: hernia, has ileostomy. ileostomy Female Surgical History: Reports: Hysterectomy, Other (See Below) Other Female Surgeries/Procedures: nephrectomy left Neurological Surgical History: Reports: None Dermatological Surgical History: Reports: None Social & Family History - Family History Family Medical History: No Pertinent Family History - Tobacco Use Tobacco Use Status *Q: Never Tobacco User - Caffeine Use Caffeine Use: Reports: Soda - Recreational Drug Use Recreational Drug Use: No H&P Review of Systems - Review of Systems: Review Of Systems: See Below General: Reports: Fever, Chills, Weakness, Fatigue, Diaphoresis, Decreased Appetite HEENT: Reports: No Symptoms Pulmonary: Reports: No Symptoms Cardiovascular: Reports: No Symptoms Gastrointestinal: Reports: No Symptoms Genitourinary: Reports: No Symptoms Musculoskeletal: Reports: No Symptoms Skin: Reports: No Symptoms Psychiatric: Reports: No Symptoms Neurological: Reports: No Symptoms Hematologic/Lymphatic: Reports: No Symptoms Immunologic: Reports: No Symptoms Exam - Exam Exam: See Below - Vital Signs Vital Signs: Last Vital Signs Temp 97.7 F 06/09/20 18:29 Pulse 98 06/09/20 18:29 Resp 18 06/09/20 18:29 BP 193/97 H 06/09/20 18:29 Pulse Ox 100 06/09/20 18:29 Weight: 148 lb - Exam Quality Assessment: DVT Prophylaxis General: Alert, Oriented, Cooperative, Mild Distress HEENT: Conjunctiva Clear, Hearing Intact, Mucosa Moist & [place], Normal Nasal Se ptum, Posterior Pharynx Clear, Pupils Equal Neck: Supple, Trachea Midline, +2 Carotid Pulse wo Bruit Lungs: Clear to Auscultation, Normal Respiratory Effort Cardiovascular: Regular Rate, Regular Rhythm, Normal S1, Normal S2 GI/Abdominal Exam: Soft, Non-Tender, No Organomegaly, No Distention, Other ( Ileostomy) Back Exam: Normal Inspection, Full Range of Motion Extremities: Non-Tender, No Pedal Edema Skin: Warm, Dry, Intact Neurological: Cranial Nerves Intact, Strength Equal Bilateral, Normal Speech, Normal Tone, Sensation Intact. No: Focal Deficit Neuro Extensive - Mental Status: Alert, Oriented x3, Normal Mood/Affect, Normal Cognition, Memory Intact Sepsis Event Note - Evaluation Sepsis Screening Result: No Definite Risk - Focused Exam Vital Signs: Vital Signs Temp Pulse Resp BP Pulse Ox 06/09/20 18:29 97.7 F 98 18 193/97 H 100 06/09/20 18:17 97.7 F 98 18 193/97 H 100 *Q Meaningful Use (ADM) - VTE Risk Assess *Q Each Risk Factor Represents 1 Point: None Total Score 1 Point Risk Factors: 0 Each Risk Factor Represents 2 Points: Age 60 - 74 Years Total Score 2 Point Risk Factors: 2 Each Risk Factor Represents 3 Points: None Total Score 3 Point Risk Factors: 0 Each Risk Factor Represents 5 Points: None Total Score 5 Point Risk Factors: 0 Venous Thromboembolism Risk Factor Score *Q: 2 Problem List Initiated/Reviewed/Updated: Yes Orders Last 24hrs: Active Orders 24 hr Category Date Time Status Patient Status Manage Transfer [TRANSFER] Routine ADT 06/09/20 19:12 Ordered Vancomycin 750 gm Med 06/09/20 18:58 Active Sodium Chloride 0.9% [Normal Saline] 250 ml IV ONETIME Resuscitation Status Routine Resus Stat 06/09/20 19:16 Ordered Medication Orders Vancomycin HCl 750 gm/ Sodium (Chloride) 250 mls @ 150 mls/hr IV ONETIME ONE Stop: 06/09/20 20:37 Assessment/Plan Comment:: ASSESSMENT AND PLAN BACTEREMIA-recent history of recurrent fevers and weakness. Prior history of septic shock with positive blood cultures for Enterococcus and Enterobacter 3 months ago. Cultures obtained earlier today are showing growth of gram-positive cocci from both her central line as well as peripheral venous site. No evidence of sepsis at the present time. -IV vancomycin -IV fluids for hydration -Final blood culture results pending PANCYTOPENIA-history of significant anemia, thrombocytopenia, and leukopenia with acute illness. This is thought secondary to hepato and splenomegaly -Reassess blood counts in a.m. HYPOMAGNESEMIA -IV and oral magnesium replacement -Reassess magnesium level in a.m. MAINTENANCE ISSUES -DVT prophylaxis; Lovenox 40 mg subcu daily -GI prophylaxis; not indicated -Law catheter; not indicated -Nutrition; regular diet -Nicotine dependence; not required CODE STATUS-FULL CODE ADMISSION STATUS-patient will be admitted to inpatient status, expect at least a 2 night hospital stay for evaluation and management of problems as outlined above. At the time of this admission I do not reasonably expected evaluation and management of this problem will require more than a 96 hour hospital stay. DISPOSITION-anticipate discharge to home after the hospital stay. PRIMARY CARE PROVIDER-Dr. Gerber - Mortality Measure Prognosis:: Good
[2020-06-09] MEDS ORDERED: Vancomycin 1 GM SDV IV SCH (20:03)
[2020-06-09] MEDS ORDERED: tiZANidine 4 MG Tab PO PRN (20:03)
[2020-06-09] MEDS ORDERED: Enoxaparin 40 MG/0.4 ML Syringe SUBCUT SCH (20:03)
[2020-06-09] MEDS ORDERED: Sodium Chloride 0.9% 10 ML Syringe FLUSH PRN (20:03)
[2020-06-09] MEDS ORDERED: Loperamide 2 MG Cap PO PRN (20:03)
[2020-06-09] MEDS ORDERED: Ondansetron 4 MG Tab.DIS PO PRN (20:03)
[2020-06-09] MEDS: Sodium Chloride 0.9% 1,000 ML IV SCH (20:34)
[2020-06-09] MEDS: Magnesium Sulfate/Water 2 GM/50 ML BAG IV SCH (20:49)
[2020-06-09] MEDS: Lactobacillus Rhamnosus GG (Probiotic) Cap PO SCH (20:50)
[2020-06-09] MEDS: traMADol 50 MG Tab PO PRN (20:50)
[2020-06-09] MEDS: Atropine/Diphenoxylate 0.025-2.5 MG Tab PO SCH (20:50)
[2020-06-09] MEDS: Melatonin 3 MG Tab PO SCH (20:51)
[2020-06-09] MEDS: OLANZapine 5 MG Tab PO SCH (20:51)
[2020-06-09] MEDS ORDERED: Vancomycin 1.75 GM in Sodium Chloride 0.9% 500 ML IV ONE (21:00)
[2020-06-09] MEDS ORDERED: Amylase/Lipase/Protease 12,000 Unit Cap.CR PO SCH (21:00)
[2020-06-09] MEDS: Psyllium Seed (With Sugar) Wafer PO SCH (21:10)
[2020-06-09] MEDS: Magnesium Oxide 400 MG Tab PO SCH (21:11)
[2020-06-09] MEDS: Cholestyramine/Sucrose Powder 4 GM Packet PO SCH (22:09)
[2020-06-09] MEDS: Amylase/Lipase/Protease 12,000 Unit Cap.CR PO SCH (22:09)
[2020-06-10] MEDS: Atropine/Diphenoxylate 0.025-2.5 MG Tab PO SCH ×4 (02:44→22:42)
[2020-06-10] MEDS: Magnesium Sulfate/Water 2 GM/50 ML BAG IV SCH (02:44)
[2020-06-10] MEDS: traMADol 50 MG Tab PO PRN ×3 (04:17→18:27)
[2020-06-10] MEDS: Cholestyramine/Sucrose Powder 4 GM Packet PO SCH ×4 (07:39→21:29)
[2020-06-10] MEDS: Sodium Chloride 0.9% 1,000 ML IV SCH ×2 (07:40→21:42)
[2020-06-10] MEDS: DULoxetine 30 MG Cap PO SCH (08:42)
[2020-06-10] MEDS: Multivitamins with Iron Tab.Chew PO SCH (08:42)
[2020-06-10] MEDS: Lactobacillus Rhamnosus GG (Probiotic) Cap PO SCH ×2 (08:42→21:23)
[2020-06-10] MEDS: Amylase/Lipase/Protease 12,000 Unit Cap.CR PO SCH ×3 (08:42→16:46)
[2020-06-10] MEDS: Magnesium Oxide 400 MG Tab PO SCH ×3 (08:42→21:24)
[2020-06-10] MEDS: OLANZapine 5 MG Tab PO SCH ×2 (08:43→21:24)
[2020-06-10] MEDS: Psyllium Seed (With Sugar) Wafer PO SCH ×3 (08:43→21:28)
--- NOTE | 2020-06-10 12:56 | PCM.PN ---
- General Info Date of Service: 06/10/20 Subjective Update: Ms. Foley in stable since admission. She has had persistent symptoms of weakness and some lightheadedness. Vital signs have been good and she has remained afebrile, white blood cell count slightly low today. As seen previously she has experienced a drop in hemoglobin level, which this morning was 6.9. - Review of Systems General: Reports: Weakness, Fatigue. Denies: Fever, Chills, Night Sweats Pulmonary: Reports: No Symptoms Cardiovascular: Reports: No Symptoms Gastrointestinal: Reports: No Symptoms Genitourinary: Reports: No Symptoms - Patient Data Vitals - Most Recent: Last Vital Signs Temp 96.1 F L 06/10/20 10:55 Pulse 86 06/10/20 12:31 Resp 16 06/10/20 10:55 BP 145/65 H 06/10/20 10:55 Pulse Ox 100 06/10/20 10:55 Weight - Most Recent: 151 lb I&O - Last 24 Hours: Intake & Output 06/09/20 06/10/20 06/10/20 22:59 06:59 14:59 Intake Total 500 667 360 Output Total 550 200 Balance 500 117 160 Lab Results Last 24 Hours: Laboratory Results - last 24 hr 06/10/20 06/10/20 06/10/20 Range/Units 04:24 04:24 05:00 WBC 4.2 L (4.5-11.0) K/uL RBC 2.23 L (3.30-5.50) M/uL Hgb 6.9 L* (12.0-15.0) g/dL Hct 21.9 L (36.0-48.0) % MCV 98 (80-98) fL MCH 31 (27-31) pg MCHC 32 (32-36) % Plt Count 154 (150-400) K/uL Neut % (Auto) 79 H (36-66) % Lymph % (Auto) 13 L (24-44) % [place] % (Auto) 7 H (2-6) % Eos % (Auto) 0 L (2-4) % Baso % (Auto) 0 (0-1) % Sodium 138 L (140-148) mmol/L Potassium 3.9 (3.6-5.2) mmol/L Chloride 103 (100-108) mmol/L Carbon Dioxide 23 (21-32) mmol/L Anion Gap 15.9 H (5.0-14.0) mmol/L BUN 11 (7-18) mg/dL Creatinine 1.5 H (0.6-1.0) mg/dL Est Cr Clr Drug Dosing 38.78 mL/min Estimated GFR (MDRD) 35 L (>60) Glucose 102 (74-106) mg/dL Calcium 9.0 (8.5-10.1) mg/dL Magnesium 2.5 H D (1.8-2.4) mg/dL Total Bilirubin 0.7 (0.2-1.0) mg/dL AST 14 L (15-37) U/L ALT 14 (12-78) U/L Alkaline Phosphatase 146 H (46-116) U/L Total Protein 8.2 (6.4-8.2) g/dL Albumin 3.0 L (3.4-5.0) g/dL Globulin 5.2 H (2.3-3.5) g/dL Albumin/Globulin Ratio 0.6 L (1.2-2.2) Blood Type A POSITIVE Gel Antibody Screen Positive A* Antibody Identification Anti-K Crossmatch See Detail Med Orders - Current: Current Medications Acetaminophen (Tylenol) 650 mg PO Q4H PRN PRN Reason: Pain (Mild 1-3)/fever Lipase/Protease/Amylase (Creon Dr 12,000 Units) 2 cap PO TIDMEALS [facility] Last Admin: 06/10/20 11:27 Dose: 2 cap Documented by: Cholestyramine Resin (Cholestyramine Packet) 4 gm PO QID [facility] Last Admin: 06/10/20 09:45 Dose: Not Given Documented by: Diphenoxylate HCl/Atropine (Lomotil 0.025-2.5 Mg) 2 tab PO Q6H [facility] Last Admin: 06/10/20 08:49 Dose: 2 tab Documented by: Duloxetine HCl (Cymbalta) 60 mg PO DAILY [facility] Last Admin: 06/10/20 08:42 Dose: 60 mg Documented by: Enoxaparin Sodium (Lovenox) 40 mg SUBCUT QPM [facility] Heparin Sodium (Porcine) (Heparin Lock Flush 100 Units/Ml) 500 units FLUSH ASDIRECTED PRN PRN Reason: IV Use Last Admin: 06/10/20 05:33 Dose: 500 units Documented by: Sodium Chloride (Normal Saline) 1,000 mls @ 75 mls/hr IV ASDIRECTED [facility] Last Admin: 06/10/20 07:40 Dose: 75 mls/hr Documented by: Vancomycin HCl 1 gm/ Sodium (Chloride) 250 mls @ 166.667 mls/hr IV Q24H [facility] Imipramine HCl (Imipramine Hcl) 200 mg PO BEDTIME [facility] Last Admin: 06/09/20 22:08 Dose: 200 mg Documented by: Lactobacillus Rhamnosus (Culturelle) 1 cap PO BID [facility] Last Admin: 06/10/20 08:42 Dose: 1 cap Documented by: Loperamide HCl (Imodium) 2 mg PO Q4H PRN PRN Reason: Diarrhea Lorazepam (Ativan) 0.5 mg PO Q6H PRN PRN Reason: Anxiety Magnesium Oxide (Magnesium Oxide) 400 mg PO TID [facility] Last Admin: 06/10/20 08:42 Dose: 400 mg Documented by: Melatonin (Melatonin) 9 mg PO BEDTIME [facility] Last Admin: 06/09/20 20:51 Dose: 9 mg Documented by: Multivitamins/Iron (Child Chew Iron) 1 tab PO DAILY [facility] Last Admin: 06/10/20 08:42 Dose: 1 tab Documented by: Olanzapine (Zyprexa) 5 mg PO BID [facility] Last Admin: 06/10/20 08:43 Dose: 5 mg Documented by: Ondansetron HCl (Zofran Odt) 4 mg PO Q6H PRN PRN Reason: Nausea able to take PO Psyllium Husk (Metamucil Fiber Wafer) 2 each PO TID [facility] Last Admin: 06/10/20 08:43 Dose: 2 each Documented by: Sodium Chloride (Saline Flush) 10 ml FLUSH ASDIRECTED PRN PRN Reason: Keep Vein Open Tizanidine HCl (Zanaflex) 4 mg PO BID PRN PRN Reason: Spasms Tramadol HCl (Ultram) 100 mg PO Q6H PRN PRN Reason: Pain Last Admin: 06/10/20 11:28 Dose: 100 mg Documented by: Discontinued Medications Lipase/Protease/Amylase (Creon Dr 12,000 Units) 2 cap PO TID [facility] Last Admin: 06/09/20 22:24 Dose: Not Given Documented by: Cefuroxime Axetil (Ceftin) 500 mg PO ONETIME ONE Stop: 06/09/20 18:36 Last Admin: 06/09/20 18:52 Dose: 500 mg Documented by: Enoxaparin Sodium (Lovenox) 40 mg SUBCUT DAILY [facility] Last Admin: 06/09/20 20:51 Dose: 40 mg Documented by: Hydromorphone HCl (Dilaudid) 1 mg IM ONETIME ONE Stop: 06/09/20 18:42 Last Admin: 06/09/20 18:54 Dose: 1 mg Documented by: Vancomycin HCl 750 gm/ Sodium (Chloride) 250 mls @ 150 mls/hr IV ONETIME ONE Stop: 06/09/20 20:37 Last Admin: 06/09/20 22:24 Dose: Not Given Documented by: Vancomycin HCl 0.75 gm/ Sodium (Chloride) 250 mls @ 150 mls/hr IV ONETIME ONE Stop: 06/09/20 21:19 Last Admin: 06/09/20 20:32 Dose: 150 mls/hr Documented by: Magnesium Sulfate (Magnesium Sulfate In Water 2 Gm/50 Ml) 2 gm in 50 mls @ 12.5 mls/hr IV Q6H [facility] Stop: 06/10/20 06:29 Last Admin: 06/10/20 02:44 Dose: 12.5 mls/hr Documented by: Vancomycin HCl 1.75 gm/ Sodium (Chloride) 500 mls @ 250 mls/hr IV ONETIME ONE Stop: 06/09/20 22:59 Last Admin: 06/09/20 21:32 Dose: Not Given Documented by: Vancomycin HCl 1 gm/ Sodium (Chloride) 250 mls @ 166.667 mls/hr IV ONETIME ONE Stop: 06/09/20 23:29 Last Admin: 06/09/20 22:11 Dose: 166.667 mls/hr Documented by: Vancomycin HCl (Vancomycin) 1 gm IV .PHARMACY TO DOSE [facility] Stop: 06/10/20 09:00 - Exam Quality Assessment: DVT Prophylaxis General: Alert, Oriented, Cooperative, Mild Distress Lungs: Clear to Auscultation, Normal Respiratory Effort Cardiovascular: Regular Rate, Regular Rhythm, No Murmurs GI/Abdominal Exam: Soft, Non-Tender, No Organomegaly, No Distention Extremities: Non-Tender, No Pedal Edema - Patient Data Lab Results Last 24 hrs: Laboratory Results - last 24 hr 06/10/20 06/10/20 06/10/20 Range/Units 04:24 04:24 05:00 WBC 4.2 L (4.5-11.0) K/uL RBC 2.23 L (3.30-5.50) M/uL Hgb 6.9 L* (12.0-15.0) g/dL Hct 21.9 L (36.0-48.0) % MCV 98 (80-98) fL MCH 31 (27-31) pg MCHC 32 (32-36) % Plt Count 154 (150-400) K/uL Neut % (Auto) 79 H (36-66) % Lymph % (Auto) 13 L (24-44) % [place] % (Auto) 7 H (2-6) % Eos % (Auto) 0 L (2-4) % Baso % (Auto) 0 (0-1) % Sodium 138 L (140-148) mmol/L Potassium 3.9 (3.6-5.2) mmol/L Chloride 103 (100-108) mmol/L Carbon Dioxide 23 (21-32) mmol/L Anion Gap 15.9 H (5.0-14.0) mmol/L BUN 11 (7-18) mg/dL Creatinine 1.5 H (0.6-1.0) mg/dL Est Cr Clr Drug Dosing 38.78 mL/min Estimated GFR (MDRD) 35 L (>60) Glucose 102 (74-106) mg/dL Calcium 9.0 (8.5-10.1) mg/dL Magnesium 2.5 H D (1.8-2.4) mg/dL Total Bilirubin 0.7 (0.2-1.0) mg/dL AST 14 L (15-37) U/L ALT 14 (12-78) U/L Alkaline Phosphatase 146 H (46-116) U/L Total Protein 8.2 (6.4-8.2) g/dL Albumin 3.0 L (3.4-5.0) g/dL Globulin 5.2 H (2.3-3.5) g/dL Albumin/Globulin Ratio 0.6 L (1.2-2.2) Blood Type A POSITIVE Gel Antibody Screen Positive A* Antibody Identification Anti-K Crossmatch See Detail Result Diagrams: 06/10/20 04:24 06/10/20 04:24 Sepsis Event Note - Evaluation Sepsis Screening Result: No Definite Risk - Focused Exam Vital Signs: Vital Signs Temp Pulse Resp BP Pulse Ox 06/10/20 12:31 86 06/10/20 10:55 96.1 F L 94 16 145/65 H 100 06/10/20 07:25 95.6 F L 88 16 131/57 L 97 06/10/20 02:45 96.0 F L 98 18 137/72 100 - Problem List Review Problem List Initiated/Reviewed/Updated: Yes - My Orders Last 24 Hours: My Active Orders 06/09/20 Dinner Regular Diet [DIET] 06/09/20 19:16 Resuscitation Status Routine 06/09/20 20:03 Acetaminophen [TylenoL] 650 mg PO Q4H PRN LORazepam [Ativan] 0.5 mg PO Q6H PRN Loperamide [Imodium] 2 mg PO Q4H PRN Ondansetron [Zofran ODT] 4 mg PO Q6H PRN Sodium Chloride 0.9% [Normal Saline] 1,000 ml IV ASDIRECTED Sodium Chloride 0.9% [Saline Flush] 10 ml FLUSH ASDIRECTED PRN tiZANidine [Zanaflex] 4 mg PO BID PRN traMADol [Ultram] 100 mg PO Q6H PRN 06/09/20 20:03 Patient Status [ADT] Routine Ambulate [RC] QID Height and Weight [RC] 0500 Intake and Output [RC] QSHIFT Notify Provider Vital Signs [RC] ASDIRECTED Oxygen Therapy [RC] PRN Peripheral IV Care [RC] BID Up ad Faith [RC] ASDIRECTED Up to Chair [RC] QID Vital Signs [RC] Q4H Peripheral IV Insertion Adult [OM.PC] Routine 06/09/20 21:00 Atropine/Diphenoxylate [Lomotil 0.025-2.5 MG] 2 tab PO Q6H Imipramine HCl 200 mg PO BEDTIME Lactobacillus Rhamnosus GG [Culturelle] 1 cap PO BID Magnesium Oxide 400 mg PO TID Melatonin 9 mg PO BEDTIME OLANZapine [ZyPREXA] 5 mg PO BID Psyllium Seed (With Sugar) [Metamucil Fiber Wafer] 2 each PO TID 06/09/20 21:30 Amylase/Lipase/Protease [Gus BEE 12,000 Units] 2 cap PO TIDMEALS 06/09/20 22:00 Cholestyramine/Sucrose [Cholestyramine Packet] 4 gm PO QID 06/09/20 22:31 Heparin Sodium [Heparin Lock Flush 100 Units/ML] 500 units FLUSH ASDIRECTED PRN 06/10/20 05:00 ANTIBODY IDENTIFICATION [BBK] Routine RED BLOOD CELLS LP [BBK] Routine TYPE AND SCREEN [BBK] Routine Transfuse Red Blood Cells [COMM] Urgent 06/10/20 09:00 DULoxetine [Cymbalta] 60 mg PO DAILY Multivitamins with Iron [Child Chew Iron] 1 tab PO DAILY 06/10/20 17:00 HGB [HEMOGLOBIN] [HEME] Stat Enoxaparin [Lovenox] 40 mg SUBCUT QPM 06/10/20 21:00 Vancomycin 1 gm Sodium Chloride 0.9% [Normal Saline] 250 ml IV Q24H 06/11/20 05:00 BASIC METABOLIC PANEL,BMP [CHEM] Timed CBC WITH AUTO DIFF [HEME] Timed MAGNESIUM [CHEM] Timed 06/12/20 20:30 VANCOMYCIN TROUGH [CHEM] Timed - Plan Plan:: ASSESSMENT AND PLAN BACTEREMIA-recent history of recurrent fevers and weakness. Prior history of septic shock with positive blood cultures for Enterococcus and Enterobacter 3 m onths ago. Cultures obtained yesterday are showing growth of gram-positive cocci from both her central line as well as peripheral venous site. No evidence of sepsis at the present time. -IV vancomycin -IV fluids for hydration -Final blood culture results pending PANCYTOPENIA-history of significant anemia, thrombocytopenia, and leukopenia with acute illness. This is thought secondary to hepato and splenomegaly. Hemoglobin has dropped since admission and this morning was 6.9. -Transfuse 1 unit of red blood cells when available, she has antibodies so blood will need to come from [place] -Reassess hemoglobin later in the afternoon and in a.m. HYPOMAGNESEMIA-magnesium level has normalized since admission -Reassess magnesium level in a.m. MAINTENANCE ISSUES -DVT prophylaxis; Lovenox 40 mg subcu daily -GI prophylaxis; not indicated -Law catheter; not indicated -Nutrition; regular diet -Nicotine dependence; not required CODE STATUS-FULL CODE ADMISSION STATUS-patient will be admitted to inpatient status, expect at least a 2 night hospital stay for evaluation and management of problems as outlined above. At the time of this admission I do not reasonably expected evaluation and management of this problem will require more than a 96 hour hospital stay. DISPOSITION-anticipate discharge to home after the hospital stay. PRIMARY CARE PROVIDER-Dr. Gerber
[2020-06-10] MEDS: LORazepam 0.5 MG Tab PO PRN ×2 (14:46→21:22)
[2020-06-10] MEDS ORDERED: Acetaminophen 325 MG Tab PO ONE (15:17)
[2020-06-10] MEDS: Acetaminophen 325 MG Tab PO PRN ×2 (15:24→21:22)
[2020-06-10] MEDS ORDERED: diphenhydrAMINE 25 MG Cap PO ONE (15:30)
[2020-06-10] MEDS: Enoxaparin 40 MG/0.4 ML Syringe SUBCUT SCH (16:47)
[2020-06-10] MEDS: Melatonin 3 MG Tab PO SCH (21:24)
[2020-06-11] MEDS: traMADol 50 MG Tab PO PRN ×3 (00:57→19:54)
[2020-06-11] MEDS: Atropine/Diphenoxylate 0.025-2.5 MG Tab PO SCH ×4 (03:31→21:13)
[2020-06-11] MEDS: Cholestyramine/Sucrose Powder 4 GM Packet PO SCH ×4 (05:50→23:59)
[2020-06-11] MEDS: Amylase/Lipase/Protease 12,000 Unit Cap.CR PO SCH ×3 (09:06→16:41)
[2020-06-11] MEDS: OLANZapine 5 MG Tab PO SCH ×2 (09:07→21:16)
[2020-06-11] MEDS: Lactobacillus Rhamnosus GG (Probiotic) Cap PO SCH ×2 (09:07→21:15)
[2020-06-11] MEDS: Magnesium Oxide 400 MG Tab PO SCH ×3 (09:07→21:13)
[2020-06-11] MEDS: DULoxetine 30 MG Cap PO SCH (09:07)
[2020-06-11] MEDS: Multivitamins with Iron Tab.Chew PO SCH (09:07)
[2020-06-11] MEDS: Psyllium Seed (With Sugar) Wafer PO SCH ×3 (09:08→21:14)
[2020-06-11] MEDS: LORazepam 0.5 MG Tab PO PRN ×2 (09:14→19:54)
--- NOTE | 2020-06-11 09:53 | PCM.PN ---
- General Info Date of Service: 06/11/20 Subjective Update: Ms. Foley remained stable over the last 24 hours, vital signs have been within desired range and she has been afebrile. Following transfusion of 1 unit of red blood cells yesterday hemoglobin is now up to 7.2. Blood cultures obtained on Monday are both growing Enterococcus. Functional Status: Reports: Ambulating, Urinating - Review of Systems General: Reports: Weakness, Fatigue. Denies: Fever, Chills Pulmonary: Reports: No Symptoms Cardiovascular: Reports: No Symptoms Gastrointestinal: Reports: No Symptoms Genitourinary: Reports: No Symptoms - Patient Data Vitals - Most Recent: Last Vital Signs Temp 95.9 F L 06/11/20 07:00 Pulse 84 06/11/20 07:00 Resp 18 06/11/20 07:00 BP 111/55 L 06/11/20 07:00 Pulse Ox 97 06/11/20 07:00 Weight - Most Recent: 151 lb I&O - Last 24 Hours: Intake & Output 06/10/20 06/11/20 06/11/20 22:59 06:59 14:59 Intake Total 1753 801 240 Output Total 1550 800 650 Balance 203 1 -410 Lab Results Last 24 Hours: Laboratory Results - last 24 hr 06/10/20 06/10/20 06/11/20 Range/Units 05:00 17:00 05:29 WBC 3.4 L (4.5-11.0) K/uL RBC 2.39 L (3.30-5.50) M/uL Hgb 7.4 L 7.2 L (12.0-15.0) g/dL Hct 23.4 L (36.0-48.0) % MCV 98 (80-98) fL MCH 30 (27-31) pg MCHC 31 L (32-36) % Plt Count 119 L (150-400) K/uL Neut % (Auto) 73 H (36-66) % Lymph % (Auto) 18 L (24-44) % [place] % (Auto) 9 H (2-6) % Eos % (Auto) 0 L (2-4) % Baso % (Auto) 0 (0-1) % Sodium (140-148) mmol/L Potassium (3.6-5.2) mmol/L Chloride (100-108) mmol/L Carbon Dioxide (21-32) mmol/L Anion Gap (5.0-14.0) mmol/L BUN (7-18) mg/dL Creatinine (0.6-1.0) mg/dL Est Cr Clr Drug Dosing mL/min Estimated GFR (MDRD) (>60) Glucose (74-106) mg/dL Calcium (8.5-10.1) mg/dL Magnesium (1.8-2.4) mg/dL Blood Type A POSITIVE Gel Antibody Screen Positive A* Antibody Identification Anti-K Crossmatch See Detail 06/11/20 Range/Units 05:29 WBC (4.5-11.0) K/uL RBC (3.30-5.50) M/uL Hgb (12.0-15.0) g/dL Hct (36.0-48.0) % MCV (80-98) fL MCH (27-31) pg MCHC (32-36) % Plt Count (150-400) K/uL Neut % (Auto) (36-66) % Lymph % (Auto) (24-44) % [place] % (Auto) (2-6) % Eos % (Auto) (2-4) % Baso % (Auto) (0-1) % Sodium 135 L (140-148) mmol/L Potassium 4.1 (3.6-5.2) mmol/L Chloride 103 (100-108) mmol/L Carbon Dioxide 22 (21-32) mmol/L Anion Gap 14.1 H (5.0-14.0) mmol/L BUN 13 (7-18) mg/dL Creatinine 1.6 H (0.6-1.0) mg/dL Est Cr Clr Drug Dosing 36.36 mL/min Estimated GFR (MDRD) 33 L (>60) Glucose 102 (74-106) mg/dL Calcium 8.5 (8.5-10.1) mg/dL Magnesium 2.3 (1.8-2.4) mg/dL Blood Type Gel Antibody Screen Antibody Identification Crossmatch Med Orders - Current: Current Medications Acetaminophen (Tylenol) 650 mg PO Q4H PRN PRN Reason: Pain (Mild 1-3)/fever Last Admin: 06/10/20 21:22 Dose: 650 mg Documented by: Lipase/Protease/Amylase (Gus Greer 12,000 Units) 2 cap PO TIDMEALS [facility] Last Admin: 06/11/20 09:06 Dose: 2 cap Documented by: Cholestyramine Resin (Cholestyramine Packet) 4 gm PO QID [facility] Last Admin: 06/11/20 09:08 Dose: Not Given Documented by: Diphenoxylate HCl/Atropine (Lomotil 0.025-2.5 Mg) 2 tab PO Q6H [facility] Last Admin: 06/11/20 09:08 Dose: Not Given Documented by: Duloxetine HCl (Cymbalta) 60 mg PO DAILY [facility] Last Admin: 06/11/20 09:07 Dose: 60 mg Documented by: Enoxaparin Sodium (Lovenox) 40 mg SUBCUT QPM [facility] Last Admin: 06/10/20 16:47 Dose: 40 mg Documented by: Heparin Sodium (Porcine) (Heparin Lock Flush 100 Units/Ml) 500 units FLUSH ASDIRECTED PRN PRN Reason: IV Use Last Admin: 06/11/20 05:16 Dose: 500 units Documented by: Sodium Chloride (Normal Saline) 1,000 mls @ 75 mls/hr IV ASDIRECTED [facility] Last Admin: 06/10/20 21:42 Dose: 75 mls/hr Documented by: Vancomycin HCl 1 gm/ Sodium (Chloride) 250 mls @ 166.667 mls/hr IV Q24H [facility] Last Admin: 06/10/20 21:31 Dose: 166.667 mls/hr Documented by: Imipramine HCl (Imipramine Hcl) 200 mg PO BEDTIME [facility] Last Admin: 06/10/20 21:25 Dose: 200 mg Documented by: Lactobacillus Rhamnosus (Culturelle) 1 cap PO BID [facility] Last Admin: 06/11/20 09:07 Dose: 1 cap Documented by: Loperamide HCl (Imodium) 2 mg PO Q4H PRN PRN Reason: Diarrhea Lorazepam (Ativan) 0.5 mg PO Q6H PRN PRN Reason: Anxiety Last Admin: 06/11/20 09:14 Dose: 0.5 mg Documented by: Magnesium Oxide (Magnesium Oxide) 400 mg PO TID [facility] Last Admin: 06/11/20 09:07 Dose: 400 mg Documented by: Melatonin (Melatonin) 9 mg PO BEDTIME [facility] Last Admin: 06/10/20 21:24 Dose: 9 mg Documented by: Multivitamins/Iron (Child Chew Iron) 1 tab PO DAILY [facility] Last Admin: 06/11/20 09:07 Dose: 1 tab Documented by: Olanzapine (Zyprexa) 5 mg PO BID [facility] Last Admin: 06/11/20 09:07 Dose: 5 mg Documented by: Ondansetron HCl (Zofran Odt) 4 mg PO Q6H PRN PRN Reason: Nausea able to take PO Psyllium Husk (Metamucil Fiber Wafer) 2 each PO TID [facility] Last Admin: 06/11/20 09:08 Dose: 2 each Documented by: Sodium Chloride (Saline Flush) 10 ml FLUSH ASDIRECTED PRN PRN Reason: Keep Vein Open Tizanidine HCl (Zanaflex) 4 mg PO BID PRN PRN Reason: Spasms Last Admin: 06/10/20 19:05 Dose: 4 mg Documented by: Tramadol HCl (Ultram) 100 mg PO Q6H PRN PRN Reason: Pain Last Admin: 06/11/20 09:06 Dose: 100 mg Documented by: Discontinued Medications Acetaminophen (Tylenol) 650 mg PO NOW ONE Stop: 06/10/20 15:18 Last Admin: 06/10/20 17:22 Dose: Not Given Documented by: Lipase/Protease/Amylase (Gus Dr 12,000 Units) 2 cap PO TID [facility] Last Admin: 06/09/20 22:24 Dose: Not Given Documented by: Cefuroxime Axetil (Ceftin) 500 mg PO ONETIME ONE Stop: 06/09/20 18:36 Last Admin: 06/09/20 18:52 Dose: 500 mg Documented by: Diphenhydramine HCl (Benadryl) 25 mg PO ONETIME ONE Stop: 06/10/20 15:31 Last Admin: 06/10/20 15:48 Dose: 25 mg Documented by: Enoxaparin Sodium (Lovenox) 40 mg SUBCUT DAILY [facility] Last Admin: 06/09/20 20:51 Dose: 40 mg Documented by: Hydromorphone HCl (Dilaudid) 1 mg IM ONETIME ONE Stop: 06/09/20 18:42 Last Admin: 06/09/20 18:54 Dose: 1 mg Documented by: Vancomycin HCl 750 gm/ Sodium (Chloride) 250 mls @ 150 mls/hr IV ONETIME ONE Stop: 06/09/20 20:37 Last Admin: 06/09/20 22:24 Dose: Not Given Documented by: Vancomycin HCl 0.75 gm/ Sodium (Chloride) 250 mls @ 150 mls/hr IV ONETIME ONE Stop: 06/09/20 21:19 Last Admin: 06/09/20 20:32 Dose: 150 mls/hr Documented by: Magnesium Sulfate (Magnesium Sulfate In Water 2 Gm/50 Ml) 2 gm in 50 mls @ 12.5 mls/hr IV Q6H [facility] Stop: 06/10/20 06:29 Last Admin: 06/10/20 02:44 Dose: 12.5 mls/hr Documented by: Vancomycin HCl 1.75 gm/ Sodium (Chloride) 500 mls @ 250 mls/hr IV ONETIME ONE Stop: 06/09/20 22:59 Last Admin: 06/09/20 21:32 Dose: Not Given Documented by: Vancomycin HCl 1 gm/ Sodium (Chloride) 250 mls @ 166.667 mls/hr IV ONETIME ONE Stop: 06/09/20 23:29 Last Admin: 06/09/20 22:11 Dose: 166.667 mls/hr Documented by: Vancomycin HCl (Vancomycin) 1 gm IV .PHARMACY TO DOSE [facility] Stop: 06/10/20 09:00 - Exam Quality Assessment: Central Line/PICC, DVT Prophylaxis General: Alert, Oriented, Cooperative, Mild Distress Lungs: Clear to Auscultation, Normal Respiratory Effort Cardiovascular: Regular Rate, Regular Rhythm, No Murmurs GI/Abdominal Exam: Soft, Non-Tender, No Organomegaly, No Distention Extremities: Non-Tender, No Pedal Edema - Patient Data Lab Results Last 24 hrs: Laboratory Results - last 24 hr 06/10/20 06/10/20 06/11/20 Range/Units 05:00 17:00 05:29 WBC 3.4 L (4.5-11.0) K/uL RBC 2.39 L (3.30-5.50) M/uL Hgb 7.4 L 7.2 L (12.0-15.0) g/dL Hct 23.4 L (36.0-48.0) % MCV 98 (80-98) fL MCH 30 (27-31) pg MCHC 31 L (32-36) % Plt Count 119 L (150-400) K/uL Neut % (Auto) 73 H (36-66) % Lymph % (Auto) 18 L (24-44) % [place] % (Auto) 9 H (2-6) % Eos % (Auto) 0 L (2-4) % Baso % (Auto) 0 (0-1) % Sodium (140-148) mmol/L Potassium (3.6-5.2) mmol/L Chloride (100-108) mmol/L Carbon Dioxide (21-32) mmol/L Anion Gap (5.0-14.0) mmol/L BUN (7-18) mg/dL Creatinine (0.6-1.0) mg/dL Est Cr Clr Drug Dosing mL/min Estimated GFR (MDRD) (>60) Glucose (74-106) mg/dL Calcium (8.5-10.1) mg/dL Magnesium (1.8-2.4) mg/dL Blood Type A POSITIVE Gel Antibody Screen Positive A* Antibody Identification Anti-K Crossmatch See Detail 06/11/20 Range/Units 05:29 WBC (4.5-11.0) K/uL RBC (3.30-5.50) M/uL Hgb (12.0-15.0) g/dL Hct (36.0-48.0) % MCV (80-98) fL MCH (27-31) pg MCHC (32-36) % Plt Count (150-400) K/uL Neut % (Auto) (36-66) % Lymph % (Auto) (24-44) % [place] % (Auto) (2-6) % Eos % (Auto) (2-4) % Baso % (Auto) (0-1) % Sodium 135 L (140-148) mmol/L Potassium 4.1 (3.6-5.2) mmol/L Chloride 103 (100-108) mmol/L Carbon Dioxide 22 (21-32) mmol/L Anion Gap 14.1 H (5.0-14.0) mmol/L BUN 13 (7-18) mg/dL Creatinine 1.6 H (0.6-1.0) mg/dL Est Cr Clr Drug Dosing 36.36 mL/min Estimated GFR (MDRD) 33 L (>60) Glucose 102 (74-106) mg/dL Calcium 8.5 (8.5-10.1) mg/dL Magnesium 2.3 (1.8-2.4) mg/dL Blood Type Gel Antibody Screen Antibody Identification Crossmatch Result Diagrams: 06/11/20 05:29 06/11/20 05:29 Sepsis Event Note - Evaluation Sepsis Screening Result: No Definite Risk - Focused Exam Vital Signs: Vital Signs Temp Pulse Resp BP Pulse Ox 06/11/20 07:00 95.9 F L 84 18 111/55 L 97 06/11/20 03:30 96.6 F L 84 16 115/56 L 95 06/11/20 00:00 96.2 F L 79 16 118/59 L 92 L - Problem List Review Problem List Initiated/Reviewed/Updated: Yes - My Orders Last 24 Hours: My Active Orders 06/10/20 09:00 DULoxetine [Cymbalta] 60 mg PO DAILY Multivitamins with Iron [Child Chew Iron] 1 tab PO DAILY 06/10/20 17:00 Enoxaparin [Lovenox] 40 mg SUBCUT QPM 06/10/20 21:00 Vancomycin 1 gm Sodium Chloride 0.9% [Normal Saline] 250 ml IV Q24H 06/11/20 08:19 Transfuse Red Blood Cells [COMM] Urgent 06/11/20 09:45 CULTURE BLOOD [BC] Stat CULTURE BLOOD [BC] Stat Blood Culture x2 Reflex Set [OM.PC] Urgent 06/12/20 05:00 BASIC METABOLIC PANEL,BMP [CHEM] Timed CBC WITH AUTO DIFF [HEME] Timed MAGNESIUM [CHEM] Timed 06/12/20 20:30 VANCOMYCIN TROUGH [CHEM] Timed - Plan Plan:: ASSESSMENT AND PLAN ENTEROCOCCAL BACTEREMIA-recent history of recurrent fevers and weakness. Prior history of septic shock with positive blood cultures for Enterococcus and En terobacter 3 months ago. Cultures are now growing out Enterococcus sensitive to current vancomycin as well as ampicillin. -Review with infectious disease [facility] in [place] -IV vancomycin -IV fluids for hydration PANCYTOPENIA-history of significant anemia, thrombocytopenia, and leukopenia wi th acute illness. This is thought secondary to hepatosplenomegaly. Hemoglobin is now 7.2 after transfusion of 1 unit of red blood cells yesterday, no evidence of active bleeding. -Transfuse 1 unit of red blood cells the day -Reassess hemoglobin in a.m. HYPOMAGNESEMIA-magnesium level has normalized since admission -Reassess magnesium level in a.m. MAINTENANCE ISSUES -DVT prophylaxis; Lovenox 40 mg subcu daily -GI prophylaxis; not indicated -Law catheter; not indicated -Nutrition; regular diet -Nicotine dependence; not required CODE STATUS-FULL CODE ADMISSION STATUS-patient will be admitted to inpatient status, expect at least a 2 night hospital stay for evaluation and management of problems as outlined above. At the time of this admission I do not reasonably expected evaluation and management of this problem will require more than a 96 hour hospital stay. DISPOSITION-anticipate discharge to home after the hospital stay. PRIMARY CARE PROVIDER-Dr. Gerber
[2020-06-11] MEDS: Sodium Chloride 0.9% 1,000 ML IV SCH (12:26)
[2020-06-11] MEDS: Enoxaparin 40 MG/0.4 ML Syringe SUBCUT SCH (16:41)
[2020-06-11] MEDS: Melatonin 3 MG Tab PO SCH (21:13)
[2020-06-12] MEDS: traMADol 50 MG Tab PO PRN ×3 (01:49→14:31)
[2020-06-12] MEDS: Sodium Chloride 0.9% 1,000 ML IV SCH ×2 (01:50→14:34)
[2020-06-12] MEDS: Atropine/Diphenoxylate 0.025-2.5 MG Tab PO SCH ×2 (02:26→08:32)
[2020-06-12] MEDS: Cholestyramine/Sucrose Powder 4 GM Packet PO SCH ×2 (05:43→11:29)
[2020-06-12] MEDS: LORazepam 0.5 MG Tab PO PRN ×2 (08:22→14:31)
[2020-06-12] MEDS: Multivitamins with Iron Tab.Chew PO SCH (08:23)
[2020-06-12] MEDS: Lactobacillus Rhamnosus GG (Probiotic) Cap PO SCH (08:23)
[2020-06-12] MEDS: Amylase/Lipase/Protease 12,000 Unit Cap.CR PO SCH ×2 (08:23→13:04)
[2020-06-12] MEDS: Magnesium Oxide 400 MG Tab PO SCH ×2 (08:24→13:04)
[2020-06-12] MEDS: OLANZapine 5 MG Tab PO SCH (08:24)
[2020-06-12] MEDS: Psyllium Seed (With Sugar) Wafer PO SCH ×2 (08:24→14:32)
[2020-06-12] MEDS: DULoxetine 30 MG Cap PO SCH (08:31)
--- NOTE | 2020-06-12 14:54 | PCM.DCSUM1 ---
Discharge Summary - Hospital Course Brief History: Ms. Foley is a 59-year-old woman who was admitted through the emergency department with fever and progressive weakness secondary to repeat current gram-positive bacteremia. - Discharge Data Discharge Date: 06/12/20 Discharge Disposition: DC/Tfer to Acute Hospital 02 Condition: Serious - Referral to [facility] Primary Care Physician: Lisa Gerber MD - Discharge Diagnosis/Problem(s) (1) Enterococcal bacteremia SNOMED Code(s): 156618301540, 101570894629 ICD Code: R78.81 - BACTEREMIA; B95.2 - ENTEROCOCCUS THE CAUSE OF DISEASES CLASSIFIED ELSEWHERE Status: Acute Current Visit: Yes (2) Pancytopenia SNOMED Code(s): 596083544 ICD Code: D61.818 - OTHER PANCYTOPENIA Status: Chronic Current Visit: No (3) CKD (chronic kidney disease), stage III SNOMED Code(s): 356619935 ICD Code: N18.3 - CHRONIC KIDNEY DISEASE, STAGE 3 (MODERATE) * DO NOT USE * Status: Chronic Current Visit: No Qualifiers: Chronic kidney disease stage 3 subtype: stage 3a (GFR 45-59) Qualified Code(s): N18.31 - Chronic kidney disease, stage 3a (4) Chronic abdominal pain SNOMED Code(s): 613471040 ICD Code: R10.9 - UNSPECIFIED ABDOMINAL PAIN; G89.29 - OTHER CHRONIC PAIN Status: Chronic Current Visit: No (5) Narcotic addiction SNOMED Code(s): 719330549 ICD Code: F11.20 - OPIOID DEPENDENCE, UNCOMPLICATED Status: Chronic Current Visit: No (6) Crohn's disease SNOMED Code(s): 64482915 ICD Code: K50.90 - CROHN'S DISEASE, UNSPECIFIED, WITHOUT COMPLICATIONS Status: Chronic Current Visit: No Qualifiers: Gastrointestinal tract location: unspecified location Digestive disease complication type: other complication Qualified Code(s): K50.918 - Crohn's disease, unspecified, with other complication - Patient Summary/Data Hospital Course: Ms. Foley is a 59-year-old woman who was admitted through the emergency department with recurrent fevers and gram-positive bacteremia. 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 She has had recurrent episodes of small bowel obstruction most of which have been managed conservatively. She has had longstanding pancytopenia which was thought to be secondary to hepatosplenomegaly. In the past with episodes of small bowel obstruction has become dehydrated with acute kidney injury. She has also had ongoing difficulty with dehydration and hypomagnesemia. She does have a James catheter in place and infuses 2 L of LR daily and 4 g of magnesium 3 times a week. She had been hospitalized in February at the [facility] in [place]. At that time blood and urine cultures were positive for Enterococcus. She was discharged home on IV antibiotics and also received vancomycin and gentamicin flushes for her James catheter. She was admitted to this facility in late Feb with partial bowel obstruction. Within a few days after admission developed septic shock and progressive respiratory failure. Blood cultures were positive at that time for Enterococcus and Enterobacter. This required a prolonged hospitalization with much of her time spent in the intensive care unit. At one point she was intubated and also treated with norepinephrine. Transesophageal echo was obtained after that hospital stay and was negative for any evidence of endocarditis. She did have septic emboli to both lungs. Infection was felt to be secondary to previous James catheter which had been removed and a new catheter placed prior to discharge. She had done relatively well over the past few months, but now over the past 10 days has noted recurrent fevers with progressive weakness and anorexia. She was seen and evaluated earlier on the day of admission, in the emergency department white blood cell count was normal and procalcitonin level was within normal range. Blood cultures were obtained and are now showing growth of gram-positive cocci. She was called to come back to the emergency department because of the positive cultures both from the catheter as well as peripheral venous draw. She was given a dose of vancomycin in the emergency department. She was continued on IV fluids for hydration as well as the IV vancomycin. Final ID and sensitivities on blood cultures showed Enterococcus sensitive to ampicillin as well as the vancomycin. I reviewed these findings with infectious disease specialist at the [facility] in [place] who recommended that the patient be transferred to a tertiary care center for ID consultation and probable transesophageal echocardiogram. Second set of blood cultures have been drawn here on the day prior to transfer and had remained negative up until the time of transfer. I reviewed all of this with the hospitalist on-call at [facility] in [place] who is agreed to accept the patient in transfer. She will be transferred via [facility] for further subspecialty evaluation and management. - Patient Instructions Diet: Usual Diet as Tolerated Activity: As Tolerated Other/Special Instructions: Patient will be transferred to [facility] in [facility] via [facility] for further subspecialty evaluation and management - Discharge Plan *PRESCRIPTION DRUG MONITORING PROGRAM REVIEWED*: Not Applicable *COPY OF PRESCRIPTION DRUG MONITORING REPORT IN PATIENT MYLA: Not Applicable Home Medications: Home Meds Acetaminophen [Acetaminophen Extra Strength] 1,000 mg PO Q4HR PRN 06/17/19 [History] Cyanocobalamin (Vitamin B-12) [Cyanocobalamin Injection] 1 ml IM ASDIRECTED 06/17/19 [History] Imipramine HCl 200 mg PO BEDTIME 06/17/19 [History] Nystatin [Nystatin Oint] 1 dose TOP BID PRN 06/17/19 [History] Ondansetron [Zofran ODT] 4 mg PO Q4HR PRN 06/17/19 [History] Pedi Multivit No.25/Folic Acid [Flintstones Multivit Chew Tab] 1 tab PO DAILY 06/17/19 [History] SUMAtriptan [Imitrex] 50 mg PO BTNUNITS PRN 06/17/19 [History] DULoxetine [Cymbalta] 60 mg PO DAILY cap 09/16/19 [Rx] Lactobacillus Rhamnosus GG [Culturelle] 1 cap PO BID #60 cap 09/16/19 [Rx] Melatonin 9 mg PO BEDTIME tablet 09/16/19 [Rx] Atropine/Diphenoxylate [Diphenoxylate-Atropine] 2 tab PO Q6H 10/22/19 [History] Magnesium Oxide 400 mg PO TID 10/22/19 [History] Psyllium Seed (With Sugar) [Metamucil Fiber Wafer] 2 each PO TID #180 wafer 11/01/19 [Rx] Cholestyramine/Sucrose [Cholestyramine] 4 gm PO QID #120 packet 12/18/19 [Rx] Amylase/Lipase/Protease [Creon DR 12,000 Units] 2 cap PO TID 01/19/20 [History] Magnesium Sulfate/D5W [Magnesium 2 Gram/50 ml-D5w] 2 gm IV ASDIRECTED 01/19/20 [History] OLANZapine [Olanzapine] 5 mg PO BID 03/10/20 [History] Loperamide [Imodium] 2 mg PO Q4H PRN 03/15/20 [History] LORazepam [Ativan] 0.5 mg PO Q6H PRN tablet 03/31/20 [Rx] tiZANidine [Zanaflex] 4 mg PO BID PRN tablet 03/31/20 [Rx] traMADol [Ultram] 2 tab PO Q6H PRN 06/09/20 [History] Enoxaparin [Lovenox] 40 mg SUBCUT QPM syringe 06/12/20 [Rx] Vancomycin 1 gm IV Q24H sdv 06/12/20 [Rx] Referrals: Lisa Gerber MD [Primary Care Provider] - 06/16/20 10:20 am - Discharge Summary/Plan Comment DC Time >30 min.: No - Patient Data Vitals - Most Recent: Last Vital Signs Temp 95.3 F L 06/12/20 07:40 Pulse 83 06/12/20 07:40 Resp 16 06/12/20 13:34 BP 180/76 H 06/12/20 07:40 Pulse Ox 98 06/12/20 07:40 Weight - Most Recent: 152 lb 3.2 oz I&O - Last 24 hours: Intake & Output 06/11/20 06/12/20 06/12/20 22:59 06:59 14:59 Intake Total 1500 2434 2909 Output Total 1800 1475 Balance -300 2434 1434 Lab Results - Last 24 hrs: Laboratory Results - last 24 hr 06/12/20 06/12/20 Range/Units 05:18 05:18 WBC 3.8 L (4.5-11.0) K/uL RBC 2.71 L (3.30-5.50) M/uL Hgb 7.9 L (12.0-15.0) g/dL Hct 26.4 L (36.0-48.0) % MCV 97 (80-98) fL MCH 29 (27-31) pg MCHC 30 L (32-36) % Plt Count 120 L (150-400) K/uL Neut % (Auto) 67 H (36-66) % Lymph % (Auto) 24 (24-44) % [place] % (Auto) 9 H (2-6) % Eos % (Auto) 0 L (2-4) % Baso % (Auto) 0 (0-1) % Sodium 137 L (140-148) mmol/L Potassium 4.4 (3.6-5.2) mmol/L Chloride 105 (100-108) mmol/L Carbon Dioxide 22 (21-32) mmol/L Anion Gap 14.4 H (5.0-14.0) mmol/L BUN 15 (7-18) mg/dL Creatinine 1.5 H (0.6-1.0) mg/dL Est Cr Clr Drug Dosing 38.78 mL/min Estimated GFR (MDRD) 35 L (>60) Glucose 100 (74-106) mg/dL Calcium 8.5 (8.5-10.1) mg/dL Magnesium 1.8 (1.8-2.4) mg/dL YANNI Results - Last 24 hrs: Microbiology 06/11/20 10:13 Aerobic Blood Culture - Preliminary Blood - Venous - Lab Draw Anaerobic Blood Culture - Preliminary 06/11/20 10:09 Aerobic Blood Culture - Preliminary Blood - Venous Anaerobic Blood Culture - Preliminary Med Orders - Current: Current Medications Acetaminophen (Tylenol) 650 mg PO Q4H PRN PRN Reason: Pain (Mild 1-3)/fever Last Admin: 06/10/20 21:22 Dose: 650 mg Documented by: Lipase/Protease/Amylase (Gus Greer 12,000 Units) 2 cap PO TIDMEALS [facility] Last Admin: 06/12/20 13:04 Dose: 2 cap Documented by: Cholestyramine Resin (Cholestyramine Packet) 4 gm PO QID [facility] Last Admin: 06/12/20 11:29 Dose: Not Given Documented by: Diphenoxylate HCl/Atropine (Lomotil 0.025-2.5 Mg) 2 tab PO Q6H [facility] Last Admin: 06/12/20 08:32 Dose: Not Given Documented by: Duloxetine HCl (Cymbalta) 60 mg PO DAILY [facility] Last Admin: 06/12/20 08:31 Dose: 60 mg Documented by: Enoxaparin Sodium (Lovenox) 40 mg SUBCUT QPM [facility] Last Admin: 06/11/20 16:41 Dose: 40 mg Documented by: Heparin Sodium (Porcine) (Heparin Lock Flush 100 Units/Ml) 500 units FLUSH ASDIRECTED PRN PRN Reason: IV Use Last Admin: 06/11/20 05:16 Dose: 500 units Documented by: Sodium Chloride (Normal Saline) 1,000 mls @ 75 mls/hr IV ASDIRECTED [facility] Last Admin: 06/12/20 14:34 Dose: 75 mls/hr Documented by: Vancomycin HCl 1 gm/ Sodium (Chloride) 250 mls @ 166.667 mls/hr IV Q24H [facility] Last Admin: 06/11/20 21:14 Dose: 166.667 mls/hr Documented by: Imipramine HCl (Imipramine Hcl) 200 mg PO BEDTIME [facility] Last Admin: 06/11/20 21:13 Dose: 200 mg Documented by: Lactobacillus Rhamnosus (Culturelle) 1 cap PO BID [facility] Last Admin: 06/12/20 08:23 Dose: 1 cap Documented by: Loperamide HCl (Imodium) 2 mg PO Q4H PRN PRN Reason: Diarrhea Lorazepam (Ativan) 0.5 mg PO Q6H PRN PRN Reason: Anxiety Last Admin: 06/12/20 14:31 Dose: 0.5 mg Documented by: Magnesium Oxide (Magnesium Oxide) 400 mg PO TID [facility] Last Admin: 06/12/20 13:04 Dose: 400 mg Documented by: Melatonin (Melatonin) 9 mg PO BEDTIME [facility] Last Admin: 06/11/20 21:13 Dose: 9 mg Documented by: Multivitamins/Iron (Child Chew Iron) 1 tab PO DAILY [facility] Last Admin: 06/12/20 08:23 Dose: 1 tab Documented by: Olanzapine (Zyprexa) 5 mg PO BID [facility] Last Admin: 06/12/20 08:24 Dose: 5 mg Documented by: Ondansetron HCl (Zofran Odt) 4 mg PO Q6H PRN PRN Reason: Nausea able to take PO Psyllium Husk (Metamucil Fiber Wafer) 2 each PO TID [facility] Last Admin: 06/12/20 14:32 Dose: 2 each Documented by: Sodium Chloride (Saline Flush) 10 ml FLUSH ASDIRECTED PRN PRN Reason: Keep Vein Open Last Admin: 06/12/20 05:12 Dose: 10 ml Documented by: Tizanidine HCl (Zanaflex) 4 mg PO BID PRN PRN Reason: Spasms Last Admin: 06/10/20 19:05 Dose: 4 mg Documented by: Tramadol HCl (Ultram) 100 mg PO Q6H PRN PRN Reason: Pain Last Admin: 06/12/20 14:31 Dose: 100 mg Documented by: Discontinued Medications Acetaminophen (Tylenol) 650 mg PO NOW ONE Stop: 06/10/20 15:18 Last Admin: 06/10/20 17:22 Dose: Not Given Documented by: Lipase/Protease/Amylase (Gus Greer 12,000 Units) 2 cap PO TID [facility] Last Admin: 06/09/20 22:24 Dose: Not Given Documented by: Cefuroxime Axetil (Ceftin) 500 mg PO ONETIME ONE Stop: 06/09/20 18:36 Last Admin: 06/09/20 18:52 Dose: 500 mg Documented by: Diphenhydramine HCl (Benadryl) 25 mg PO ONETIME ONE Stop: 06/10/20 15:31 Last Admin: 06/10/20 15:48 Dose: 25 mg Documented by: Enoxaparin Sodium (Lovenox) 40 mg SUBCUT DAILY [facility] Last Admin: 06/09/20 20:51 Dose: 40 mg Documented by: Hydromorphone HCl (Dilaudid) 1 mg IM ONETIME ONE Stop: 06/09/20 18:42 Last Admin: 06/09/20 18:54 Dose: 1 mg Documented by: Vancomycin HCl 750 gm/ Sodium (Chloride) 250 mls @ 150 mls/hr IV ONETIME ONE Stop: 06/09/20 20:37 Last Admin: 06/09/20 22:24 Dose: Not Given Documented by: Vancomycin HCl 0.75 gm/ Sodium (Chloride) 250 mls @ 150 mls/hr IV ONETIME ONE Stop: 06/09/20 21:19 Last Admin: 06/09/20 20:32 Dose: 150 mls/hr Documented by: Magnesium Sulfate (Magnesium Sulfate In Water 2 Gm/50 Ml) 2 gm in 50 mls @ 12.5 mls/hr IV Q6H [facility] Stop: 06/10/20 06:29 Last Admin: 06/10/20 02:44 Dose: 12.5 mls/hr Documented by: Vancomycin HCl 1.75 gm/ Sodium (Chloride) 500 mls @ 250 mls/hr IV ONETIME ONE Stop: 06/09/20 22:59 Last Admin: 06/09/20 21:32 Dose: Not Given Documented by: Vancomycin HCl 1 gm/ Sodium (Chloride) 250 mls @ 166.667 mls/hr IV ONETIME ONE Stop: 06/09/20 23:29 Last Admin: 06/09/20 22:11 Dose: 166.667 mls/hr Documented by: Vancomycin HCl (Vancomycin) 1 gm IV .PHARMACY TO DOSE CASSIE Stop: 06/10/20 09:00 - Exam Quality Assessment: Reports: DVT Prophylaxis General: Reports: Alert, Oriented, Cooperative, Mild Distress Lungs: Reports: Clear to Auscultation, Normal Respiratory Effort Cardiovascular: Reports: Regular Rate, Regular Rhythm, No Murmurs GI/Abdominal Exam: Soft, Non-Tender, No Organomegaly, No Distention Extremities: Non-Tender, No Pedal Edema
[2020-06-12] MEDS ORDERED: LORazepam 2 MG/ML SDV IVPUSH ONE (17:00)
== END 2020-06-12 16:45 | DRG 315 ==
LOC: JP.ED 18:05 → JP.MS 19:12
PROVIDERS: ADMIT Hospitalist; ATTEND Hospitalist
PROC: 30233N1 Transfusion of Nonautologous Red Blood Cells into Peripheral Vein, Percutaneous Approach (ICD-10-PCS; principal; 2020-06-09)
DX: T80.211A Bloodstream infection due to central venous catheter, initial encounter (principal); D61.818 Other pancytopenia; F11.20 Opioid dependence, uncomplicated; K50.918 Crohn's disease, unspecified, with other complication; K56.609 Unspecified intestinal obstruction, unspecified as to partial versus complete obstruction; I76 Septic arterial embolism; N18.31 Chronic kidney disease, stage 3a; G89.29 Other chronic pain; R10.9 Unspecified abdominal pain; E86.0 Dehydration; E83.42 Hypomagnesemia; Z79.899 Other long term (current) drug therapy; Z93.2 Ileostomy status; R16.1 Splenomegaly, not elsewhere classified; H54.7 Unspecified visual loss; K52.9 Noninfective gastroenteritis and colitis, unspecified; Z87.442 Personal history of urinary calculi; G43.909 Migraine, unspecified, not intractable, without status migrainosus; F41.9 Anxiety disorder, unspecified; E53.8 Deficiency of other specified B group vitamins; Z90.89 Acquired absence of other organs; Z90.710 Acquired absence of both cervix and uterus; Z98.84 Bariatric surgery status; R16.2 Hepatomegaly with splenomegaly, not elsewhere classified; B95.2 Enterococcus as the cause of diseases classified elsewhere
CPT/HCPCS: 36415; 36430; 80048; 80053; 83735; 85018; 85025; 86850; 86870; 86900; 86901; 86902; 86920; 86922; 87040; 87077; 87186; 96372; 99284; A9270-GY; J1170; J1642; J1650; J2060; J3370; J3475; J7030; J7050; P9016

== ENCOUNTER 2020-07-28 19:55 | Emergency (ER) | payer MEDICARE, OTHER ==
--- NOTE | 2020-07-28 20:56 | EDM.PDOC ---
ED HPI GENERAL MEDICAL PROBLEM - General Chief Complaint: General Stated Complaint: WEAK,DIZZY Time Seen by Provider: 07/28/20 20:34 Source of Information: Reports: Patient, Family, Old Records, RN Notes Reviewed History Limitations: Reports: No Limitations - History of Present Illness INITIAL COMMENTS - FREE TEXT/NARRATIVE: 59-year-old female presents emergency department day complaint of weakness and dizziness, she has known history of autoimmune hemolytic anemia did have blood work yesterday today which was fairly unremarkable which included a CK and a CBC. She states over the last couple days she has been feeling more weak and very dizzy especially today she has not fallen she has not passed out. She has had fevers on and off for the last couple days the highest was up to 101, no one else is ill she denies any other symptoms chronic pain Pain Score (Numeric/FACES): 5 - Related Data Allergies Allergy/AdvReac Type Severity Reaction Status Date / Time No Known Allergies Allergy Verified 07/28/20 20:23 Home Meds: Home Meds Acetaminophen [Acetaminophen Extra Strength] 1,000 mg PO Q4HR PRN 06/17/19 [History] Cyanocobalamin (Vitamin B-12) [Cyanocobalamin Injection] 1 ml IM ASDIRECTED 06/17/19 [History] Imipramine HCl 200 mg PO BEDTIME 06/17/19 [History] Nystatin [Nystatin Oint] 1 dose TOP BID PRN 06/17/19 [History] Ondansetron [Zofran ODT] 4 mg PO Q4HR PRN 06/17/19 [History] Pedi Multivit No.25/Folic Acid [Flintstones Multivit Chew Tab] 1 tab PO DAILY 06/17/19 [History] SUMAtriptan [Imitrex] 50 mg PO BTNUNITS PRN 06/17/19 [History] DULoxetine [Cymbalta] 60 mg PO DAILY cap 09/16/19 [Rx] Lactobacillus Rhamnosus GG [Culturelle] 1 cap PO BID #60 cap 09/16/19 [Rx] Melatonin 9 mg PO BEDTIME tablet 09/16/19 [Rx] Atropine/Diphenoxylate [Diphenoxylate-Atropine] 2 tab PO Q6H 10/22/19 [History] Magnesium Oxide 400 mg PO TID 10/22/19 [History] Psyllium Seed (With Sugar) [Metamucil Fiber Wafer] 2 each PO TID #180 wafer 11/01/19 [Rx] Cholestyramine/Sucrose [Cholestyramine] 4 gm PO QID #120 packet 12/18/19 [Rx] Amylase/Lipase/Protease [Creon DR 12,000 Units] 2 cap PO TID 01/19/20 [History] Magnesium Sulfate/D5W [Magnesium 2 Gram/50 ml-D5w] 2 gm IV ASDIRECTED 01/19/20 [History] OLANZapine [Olanzapine] 5 mg PO BID 03/10/20 [History] Loperamide [Imodium] 2 mg PO Q4H PRN 03/15/20 [History] LORazepam [Ativan] 0.5 mg PO Q6H PRN tablet 03/31/20 [Rx] tiZANidine [Zanaflex] 4 mg PO BID PRN tablet 03/31/20 [Rx] traMADol [Ultram] 2 tab PO Q6H PRN 06/09/20 [History] Enoxaparin [Lovenox] 40 mg SUBCUT QPM syringe 06/12/20 [Rx] Vancomycin 1 gm IV Q24H sdv 06/12/20 [Rx] Folic Acid 0.4 mg PO DAILY 07/28/20 [History] Gabapentin [Neurontin] 900 mg PO TID 07/28/20 [History] predniSONE [Prednisone] 20 mg PO DAILY 07/28/20 [History] Past Medical History HEENT History: Reports: Impaired Vision Cardiovascular History: Reports: Arrhythmia Gastrointestinal History: Reports: Bowel Obstruction, Chronic Diarrhea, Other (See Below) Other Gastrointestinal History: hernia, multiple bowel surgerys, short gut syndrome Genitourinary History: Reports: 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: Neurological History: Reports: Migraines Psychiatric History: Reports: Anxiety Endocrine/Metabolic History: Reports: Hypomagnesemia Hematologic History: Reports: Anemia (Autoimmune hemolytic anemia), B12 Deficiency, Blood Transfusion(s), Folic Acid, Iron Deficiency Other Hematologic History: magnesium deficiency Oncologic (Cancer) History: Reports: None - Infectious Disease History Infectious Disease History: Reports: Chicken Pox, Measles, Mumps - Past Surgical History Head Surgeries/Procedures: Reports: None HEENT Surgical History: Reports: Adenoidectomy, Tonsillectomy Cardiovascular Surgical History: Reports: Cardiac Ablation GI Surgical History: Reports: Appendectomy, Colonoscopy, EGD, Other (See Below) Other GI Surgeries/Procedures: hernia, has ileostomy. ileostomy Female Surgical History: Reports: Hysterectomy, Other (See Below) Other Female Surgeries/Procedures: nephrectomy left Neurological Surgical History: Reports: None Dermatological Surgical History: Reports: None Social & Family History - Family History Family Medical History: No Pertinent Family History - Tobacco Use Tobacco Use Status *Q: Never Tobacco User - Caffeine Use Caffeine Use: Reports: None ED ROS GENERAL - Review of Systems Review Of Systems: See Below Constitutional: Reports: Weakness, Fatigue HEENT: Reports: No Symptoms Respiratory: Reports: No Symptoms Cardiovascular: Reports: No Symptoms GI/Abdominal: Reports: No Symptoms : Reports: No Symptoms ED EXAM, GENERAL - Physical Exam Exam: See Below Exam Limited By: No Limitations General Appearance: Alert, WD/WN, No Apparent Distress Respiratory/Chest: No Respiratory Distress, Lungs Clear, Normal Breath Sounds, No Accessory Muscle Use, Chest Non-Tender Cardiovascular: Regular Rate, Rhythm, No Murmur GI/Abdominal: Soft, Non-Tender Course - Vital Signs Last Recorded V/S: Last Vital Signs Temp 98.3 F 07/28/20 20:32 Pulse 97 07/28/20 22:47 Resp 16 07/28/20 22:47 BP 133/74 07/28/20 22:47 Pulse Ox 97 07/28/20 22:47 - Orders/Labs/Meds Orders: Active Orders 24 hr Category Date Time Status Peripheral IV Care [RC] . DIRECTED Care 07/28/20 23:33 Active CULTURE BLOOD [BC] Urgent Lab 07/28/20 21:00 Received CULTURE BLOOD [BC] Urgent Lab 07/28/20 23:45 Received Lactated Ringers [Ringers, Lactated] 1,000 ml Med 07/28/20 23:32 Active IV BOLUS Sodium Chloride 0.9% [Saline Flush] Med 07/28/20 23:32 Active 10 ml FLUSH ASDIRECTED PRN Blood Culture x2 Reflex Set [OM.PC] Urgent Oth 07/28/20 23:30 Ordered Isolation [COMM] Stat Oth 07/28/20 21:44 Ordered Peripheral IV Insertion Adult [OM.PC] Urgent Oth 07/28/20 23:32 Ordered Medication Orders Lactated Ringer's (Ringers, Lactated) 1,000 mls @ 999 mls/hr IV BOLUS ONE Stop: 07/29/20 00:32 Last Admin: 07/28/20 23:38 Dose: 999 mls/hr Documented by: AXEL Sodium Chloride (Sodium Chloride 0.9% 10 Ml Syringe) 10 ml FLUSH ASDIRECTED PRN PRN Reason: Keep Vein Open Labs: Laboratory Tests 07/28/20 07/28/20 07/28/20 Range/Units 21:00 21:10 21:10 WBC 3.3 L (4.5-11.0) K/uL RBC 2.74 L (3.30-5.50) M/uL Hgb 8.3 L (12.0-15.0) g/dL Hct 26.2 L (36.0-48.0) % MCV 96 (80-98) fL MCH 30 (27-31) pg MCHC 32 (32-36) % Plt Count 76 L (150-400) K/uL Neut % (Auto) 87 H (36-66) % Lymph % (Auto) 9 L (24-44) % [place] % (Auto) 5 (2-6) % Eos % (Auto) 0 L (2-4) % Baso % (Auto) 0 (0-1) % Sodium 133 L (140-148) mmol/L Potassium 4.5 (3.6-5.2) mmol/L Chloride 100 (100-108) mmol/L Carbon Dioxide 21 (21-32) mmol/L Anion Gap 16.5 H (5.0-14.0) mmol/L BUN 15 (7-18) mg/dL Creatinine 1.7 H (0.6-1.0) mg/dL Est Cr Clr Drug Dosing 34.22 mL/min Estimated GFR (MDRD) 31 L (>60) Glucose 118 H (74-106) mg/dL Lactic Acid (0.4-2.0) mmol/L Calcium 8.4 L (8.5-10.1) mg/dL Magnesium (1.8-2.4) mg/dL Total Bilirubin 0.6 (0.2-1.0) mg/dL AST 20 (15-37) U/L ALT 29 D (12-78) U/L Alkaline Phosphatase 95 (46-116) U/L C-Reactive Protein 2.17 H (0.0-0.3) mg/dL Total Protein 7.9 (6.4-8.2) g/dL Albumin 3.2 L (3.4-5.0) g/dL Globulin 4.7 H (2.3-3.5) g/dL Albumin/Globulin Ratio 0.7 L (1.2-2.2) Procalcitonin 4.88 H* ng/mL Influenza Type A RNA (NEGATIVE) RSV RNA (INAAT) (NEGATIVE) Influenza Type B RNA (NEGATIVE) SARS-CoV-2 RNA (BJ) (NEGATIVE) 07/28/20 07/28/20 07/28/20 Range/Units 21:10 21:10 21:44 WBC (4.5-11.0) K/uL RBC (3.30-5.50) M/uL Hgb (12.0-15.0) g/dL Hct (36.0-48.0) % MCV (80-98) fL MCH (27-31) pg MCHC (32-36) % Plt Count (150-400) K/uL Neut % (Auto) (36-66) % Lymph % (Auto) (24-44) % [place] % (Auto) (2-6) % Eos % (Auto) (2-4) % Baso % (Auto) (0-1) % Sodium (140-148) mmol/L Potassium (3.6-5.2) mmol/L Chloride (100-108) mmol/L Carbon Dioxide (21-32) mmol/L Anion Gap (5.0-14.0) mmol/L BUN (7-18) mg/dL Creatinine (0.6-1.0) mg/dL Est Cr Clr Drug Dosing mL/min Estimated GFR (MDRD) (>60) Glucose (74-106) mg/dL Lactic Acid 2.5 H (0.4-2.0) mmol/L Calcium (8.5-10.1) mg/dL Magnesium 1.9 (1.8-2.4) mg/dL Total Bilirubin (0.2-1.0) mg/dL AST (15-37) U/L ALT (12-78) U/L Alkaline Phosphatase (46-116) U/L C-Reactive Protein (0.0-0.3) mg/dL Total Protein (6.4-8.2) g/dL Albumin (3.4-5.0) g/dL Globulin (2.3-3.5) g/dL Albumin/Globulin Ratio (1.2-2.2) Procalcitonin ng/mL Influenza Type A RNA Negative (NEGATIVE) RSV RNA (INAAT) Negative (NEGATIVE) Influenza Type B RNA Negative (NEGATIVE) SARS-CoV-2 RNA (BJ) Negative (NEGATIVE) Meds: Medications Generic Name Dose Route Start Last Admin Trade Name Freq PRN Reason Stop Dose Admin Lactated Ringer's 1,000 mls @ 999 mls/hr 07/28/20 23:32 07/28/20 23:38 Ringers, Lactated IV 07/29/20 00:32 999 mls/hr BOLUS ONE Administration Sodium Chloride 10 ml 07/28/20 23:32 Sodium Chloride 0.9% 10 Ml Syringe FLUSH ASDIRECTED PRN Keep Vein Open Discontinued Medications Generic Name Dose Route Start Last Admin Trade Name Freq PRN Reason Stop Dose Admin Hydromorphone HCl 0.5 mg 07/28/20 22:51 07/28/20 22:58 Hydromorphone 0.5 Mg/0.5 Ml Syringe IVPUSH 07/28/20 22:52 0.5 mg ONETIME ONE Administration Departure - Departure Time of Disposition: 00:26 Disposition: Home, Self-Care 01 Condition: Fair Clinical Impression: Autoimmune hemolytic anemia - Discharge Information Referrals: Lisa Gerber MD [Primary Care Provider] - Forms: ED Department Discharge Additional Instructions: Please return to the lab tomorrow morning for recheck of your hemoglobin, contact your oncologist in the morning for further treatment plan, please return to the emergency department with any worsening of symptoms Sepsis Event Note (ED) - Evaluation Sepsis Screening Result: No Definite Risk - Focused Exam Vital Signs: Vital Signs Temp Pulse Resp BP Pulse Ox 07/28/20 22:47 97 16 133/74 97 07/28/20 20:32 98.3 F 114 H 16 169/85 H 96 07/28/20 20:17 98.3 F 114 H 16 169/85 H 96 - My Orders Last 24 Hours: My Active Orders 07/28/20 21:00 CULTURE BLOOD [BC] Urgent 07/28/20 21:44 Isolation [COMM] Stat 07/28/20 23:30 Blood Culture x2 Reflex Set [OM.PC] Urgent 07/28/20 23:32 Lactated Ringers [Ringers, Lactated] 1,000 ml IV BOLUS Sodium Chloride 0.9% [Saline Flush] 10 ml FLUSH ASDIRECTED PRN Peripheral IV Insertion Adult [OM.PC] Urgent 07/28/20 23:33 Peripheral IV Care [RC] . DIRECTED 07/28/20 23:45 CULTURE BLOOD [BC] Urgent - Assessment/Plan Last 24 Hours: My Active Orders 07/28/20 21:00 CULTURE BLOOD [BC] Urgent 07/28/20 21:44 Isolation [COMM] Stat 07/28/20 23:30 Blood Culture x2 Reflex Set [OM.PC] Urgent 07/28/20 23:32 Lactated Ringers [Ringers, Lactated] 1,000 ml IV BOLUS Sodium Chloride 0.9% [Saline Flush] 10 ml FLUSH ASDIRECTED PRN Peripheral IV Insertion Adult [OM.PC] Urgent 07/28/20 23:33 Peripheral IV Care [RC] . DIRECTED 07/28/20 23:45 CULTURE BLOOD [BC] Urgent Plan: Assessment Acuity = acute Site and laterality = autoimmune hemolytic anemia presenting with weakness Etiology = unknown Manifestations = none Location of injury = Home Lab values = WBC low at 3.3 consistent with leukopenia hemoglobin low at 8.3 normochromic anemia creatinine elevated 1.7 consistent chronic renal failure stage G3 B lactic acid slightly elevated 2.5 consistent lactic acidosis CRP elevated 2.17 Covid was negative procalcitonin elevated 4.88 concern for sepsis Plan Call discussed case with Dr. Adame emergency room physician [facility] at [phone] stated would gladly accept the patient in transfer for admission. Called and discussed case Dr. Luna hematology oncology at [phone] recommended watchful waiting recheck hemoglobin to help determine the cause whether this is stabilization of her hemolytic anemia or an exacerbation. I did offer them transfer to [place] they declined at this time plan is to recheck the hemoglobin in 12 hours at which time they will call their oncologist with comparison of the 3 numbers so the decision could be made if she needs transfusion and change in her steroid medications versus continue current course of medication This note was dictated using [employer] voice recognition software please call with any questions on syntax or grammar.
[2020-07-28 22:27] LABS: CORONAVIRUS COVID-19 NAA NEGATIVE (NEGATIVE)
[2020-07-28] MEDS ORDERED: HYDROmorphone 0.5 MG/0.5 ML Syringe IVPUSH ONE (22:51)
[2020-07-28] MEDS ORDERED: Sodium Chloride 0.9% 10 ML Syringe FLUSH PRN (23:32)
[2020-07-28] MEDS ORDERED: Lactated Ringers 1,000 ML IV ONE (23:32)
[2020-07-29] MEDS ORDERED: HYDROmorphone 0.5 MG/0.5 ML Syringe IVPUSH ONE (00:37)
== END 2020-07-29 01:02 | disposition home or self-care (01) ==
LOC: JP.ED 19:55
DX: R53.1 Weakness (principal)
CPT/HCPCS: 0241U; 36415; 80053; 83605; 83735; 84145; 85025; 86140; 87040; J1170; J7120

== ENCOUNTER 2020-07-29 09:54 | Emergency (ER) | payer MEDICARE, OTHER ==
[2020-07-29] MEDS ORDERED: Ondansetron 4 MG Tab.DIS PO ONE (12:21)
--- NOTE | 2020-07-29 12:22 | EDM.PDOC ---
ED HPI GENERAL MEDICAL PROBLEM - General Chief Complaint: General Stated Complaint: HEMOGLOBIN LOW Time Seen by Provider: 07/29/20 12:00 Source of Information: Reports: Patient, Old Records History Limitations: Reports: No Limitations - History of Present Illness INITIAL COMMENTS - FREE TEXT/NARRATIVE: 59 yo female with a pHx of colectomy(total) and hemolytic anemia was seen here yesterday evening for weakness and intermittent fevers. Has a port. Is followed by hematology in [place]. Labs yesterday were borderline abnormal with a slightly elevated lactic acid, a low WBC ct with a L shift. No fever in the ER. Got 2 blood cultures at that visit and a liter of IV fluids. 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 She decided instead to be seen right now in the ER. Is unaware of continued fever. Did have Extra Strength Tylenol 6.5 hrs ago. Has nausea. Reports low back pain and some rectal pressure today. Stool in her bad is looser than normal. One of the blood cultures from her central line is today growing a gram positive radha. Onset: Gradual Onset Date: 07/28/20 Duration: Day(s): (1), Waxing/Waning Location: Reports: Back, Pelvis (rectal aresa) Quality: Reports: Ache Severity: Moderate Improves with: Reports: None Worsens with: Reports: Other (? time) Context: Reports: Other (See HPI) Associated Symptoms: Reports: Nausea/Vomiting (no vomiting), Weakness (generalized). Denies: Fever/Chills (not ? 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: Acetaminophen (6.5 hrs ago) - Related Data Allergies Allergy/AdvReac Type Severity Reaction Status Date / Time No Known Allergies Allergy Verified 07/29/20 12:07 Home Meds: Home Meds Acetaminophen [Acetaminophen Extra Strength] 1,000 mg PO Q4HR PRN 06/17/19 [History] Cyanocobalamin (Vitamin B-12) [Cyanocobalamin Injection] 1 ml IM ASDIRECTED 06/17/19 [History] Imipramine HCl 200 mg PO BEDTIME 06/17/19 [History] Nystatin [Nystatin Oint] 1 dose TOP BID PRN 06/17/19 [History] Ondansetron [Zofran ODT] 4 mg PO Q4HR PRN 06/17/19 [History] Pedi Multivit No.25/Folic Acid [Flintstones Multivit Chew Tab] 1 tab PO DAILY 06/17/19 [History] SUMAtriptan [Imitrex] 50 mg PO BTNUNITS PRN 06/17/19 [History] DULoxetine [Cymbalta] 60 mg PO DAILY cap 09/16/19 [Rx] Lactobacillus Rhamnosus GG [Culturelle] 1 cap PO BID #60 cap 09/16/19 [Rx] Melatonin 9 mg PO BEDTIME tablet 09/16/19 [Rx] Atropine/Diphenoxylate [Diphenoxylate-Atropine] 2 tab PO Q6H 10/22/19 [History] Magnesium Oxide 400 mg PO TID 10/22/19 [History] Psyllium Seed (With Sugar) [Metamucil Fiber Wafer] 2 each PO TID #180 wafer 11/01/19 [Rx] Cholestyramine/Sucrose [Cholestyramine] 4 gm PO QID #120 packet 12/18/19 [Rx] Amylase/Lipase/Protease [Creon DR 12,000 Units] 2 cap PO TID 01/19/20 [History] Magnesium Sulfate/D5W [Magnesium 2 Gram/50 ml-D5w] 2 gm IV ASDIRECTED 01/19/20 [History] OLANZapine [Olanzapine] 5 mg PO BID 03/10/20 [History] Loperamide [Imodium] 2 mg PO Q4H PRN 03/15/20 [History] LORazepam [Ativan] 0.5 mg PO Q6H PRN tablet 03/31/20 [Rx] tiZANidine [Zanaflex] 4 mg PO BID PRN tablet 03/31/20 [Rx] traMADol [Ultram] 2 tab PO Q6H PRN 06/09/20 [History] Folic Acid 0.4 mg PO DAILY 07/28/20 [History] Gabapentin [Neurontin] 900 mg PO TID 07/28/20 [History] predniSONE [Prednisone] 20 mg PO DAILY 07/28/20 [History] Past Medical History HEENT History: Reports: Impaired Vision Cardiovascular History: Reports: Arrhythmia Gastrointestinal History: Reports: Bowel Obstruction, Chronic Diarrhea, Other (See Below) Other Gastrointestinal History: hernia, multiple bowel surgerys, short gut syndrome Genitourinary History: Reports: Renal Calculus 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: Neurological History: Reports: Migraines Psychiatric History: Reports: Anxiety Endocrine/Metabolic History: Reports: Hypomagnesemia Hematologic History: Reports: Anemia (Autoimmune hemolytic anemia), B12 Deficiency, Blood Transfusion(s), Folic Acid, Iron Deficiency Other Hematologic History: magnesium deficiency Oncologic (Cancer) History: Reports: None - Infectious Disease History Infectious Disease History: Reports: Chicken Pox, Measles, Mumps - Past Surgical History Head Surgeries/Procedures: Reports: None HEENT Surgical History: Reports: Adenoidectomy, Tonsillectomy Cardiovascular Surgical History: Reports: Cardiac Ablation GI Surgical History: Reports: Appendectomy, Colonoscopy, EGD, Other (See Below) Other GI Surgeries/Procedures: hernia, has ileostomy. ileostomy Female Surgical History: Reports: Hysterectomy, Other (See Below) Other Female Surgeries/Procedures: nephrectomy left Neurological Surgical History: Reports: None Dermatological Surgical History: Reports: None Social & Family History - Family History Family Medical History: No Pertinent Family History - Caffeine Use Caffeine Use: Reports: None ED ROS GENERAL - Review of Systems Review Of Systems: See Below Constitutional: Reports: Malaise, Weakness HEENT: Reports: No Symptoms Respiratory: Reports: No Symptoms Cardiovascular: Reports: No Symptoms Endocrine: Reports: No Symptoms GI/Abdominal: Reports: Diarrhea, Nausea. Denies: Vomiting : Reports: No Symptoms Musculoskeletal: Reports: Back Pain (low) Skin: Reports: No Symptoms Neurological: Reports: No Symptoms Psychiatric: Reports: No Symptoms ED EXAM, GENERAL - Physical Exam Exam: See Below Exam Limited By: No Limitations General Appearance: Alert, WD/WN, No Apparent Distress Eye Exam: Bilateral Eye: Normal Inspection Ears: Normal External Exam, Normal Canal, Hearing Grossly Normal, Normal TMs Ear Exam: Bilateral Ear: Auricle Normal, Canal Normal, TM normal Nose: Normal Inspection, No Blood Throat/Mouth: Normal Inspection, Normal Lips, Normal Oropharynx, Normal Voice, No Airway Compromise Head: Atraumatic, Normocephalic Neck: Normal Inspection Respiratory/Chest: No Respiratory Distress, Lungs Clear, Normal Breath Sounds, No Accessory Muscle Use Cardiovascular: Regular Rate, Rhythm, No Edema, Tachycardia (mild) GI/Abdominal: Normal Bowel Sounds, Soft, Tender (L sided abdominal pain). No: Non-Tender, Distended Back Exam: Normal Inspection. No: CVA Tenderness (R), CVA Tenderness (L) Extremities: Normal Inspection, Normal Range of Motion, Non-Tender, No Pedal Ed tong. No: Pedal Edema Neurological: Alert, Oriented, CN II-XII Intact, Normal Cognition, No Motor/Sensory Deficits Psychiatric: Normal Affect, Normal Mood Skin Exam: Warm, Dry, Intact, Normal Color, No Rash Course - Vital Signs Last Recorded V/S: Last Vital Signs Temp 36.6 C 07/29/20 12:18 Pulse 101 H 07/29/20 12:18 Resp 16 07/29/20 12:18 BP 148/73 H 07/29/20 12:18 Pulse Ox 99 07/29/20 12:18 - Orders/Labs/Meds Orders: Active Orders 24 hr Category Date Time Status UA W/MICROSCOPIC [URIN] Stat Lab 07/29/20 12:35 Ordered Piperacillin/Tazobactam/Dext [Zosyn in Dextrose Iso- Med 07/29/20 13:45 Active Osmotic 3.375 GM/50 ML] 3.375 gm Premix Bag 1 bag IV ONETIME Sodium Chloride 0.9% [Normal Saline] 1,000 ml Med 07/29/20 13:00 Active IV ASDIRECTED Vancomycin 1.5 gm Med 07/29/20 14:15 Active Sodium Chloride 0.9% [Normal Saline] 250 ml IV ONETIME Medication Orders Sodium Chloride (Normal Saline) 1,000 mls @ 1,000 mls/hr IV ASDIRECTED CASSIE Last Admin: 07/29/20 13:30 Dose: 1,000 mls/hr Documented by: JOSEE Piperacillin/Tazobactam/ (Dextrose 3.375 gm/ Premix) 50 mls @ 100 mls/hr IV ONETIME ONE Stop: 07/29/20 14:14 Last Admin: 07/29/20 13:41 Dose: 100 mls/hr Documented by: JOSEE Vancomycin HCl 1.5 gm/ Sodium (Chloride) 250 mls @ 167 mls/hr IV ONETIME ONE Stop: 07/29/20 15:44 Labs: Laboratory Tests 07/29/20 07/29/20 07/29/20 Range/Units 12:23 12:23 12:23 WBC 4.0 L (4.5-11.0) K/uL RBC 3.07 L (3.30-5.50) M/uL Hgb 9.1 L (12.0-15.0) g/dL Hct 29.4 L (36.0-48.0) % MCV 96 (80-98) fL MCH 30 (27-31) pg MCHC 31 L (32-36) % Plt Count 71 L (150-400) K/uL Sodium 133 L (140-148) mmol/L Potassium 4.4 (3.6-5.2) mmol/L Chloride 100 (100-108) mmol/L Carbon Dioxide 18 L (21-32) mmol/L Anion Gap 19.4 H (5.0-14.0) mmol/L BUN 13 (7-18) mg/dL Creatinine 1.7 H (0.6-1.0) mg/dL Est Cr Clr Drug Dosing 34.22 mL/min Estimated GFR (MDRD) 31 L (>60) Glucose 101 (74-106) mg/dL Lactic Acid 3.1 H (0.4-2.0) mmol/L Calcium 9.2 (8.5-10.1) mg/dL C-Reactive Protein 15.07 H (0.0-0.3) mg/dL Procalcitonin ng/mL 07/29/20 Range/Units 12:23 WBC (4.5-11.0) K/uL RBC (3.30-5.50) M/uL Hgb (12.0-15.0) g/dL Hct (36.0-48.0) % MCV (80-98) fL MCH (27-31) pg MCHC (32-36) % Plt Count (150-400) K/uL Sodium (140-148) mmol/L Potassium (3.6-5.2) mmol/L Chloride (100-108) mmol/L Carbon Dioxide (21-32) mmol/L Anion Gap (5.0-14.0) mmol/L BUN (7-18) mg/dL Creatinine (0.6-1.0) mg/dL Est Cr Clr Drug Dosing mL/min Estimated GFR (MDRD) (>60) Glucose (74-106) mg/dL Lactic Acid (0.4-2.0) mmol/L Calcium (8.5-10.1) mg/dL C-Reactive Protein (0.0-0.3) mg/dL Procalcitonin 17.73 H* ng/mL Meds: Medications Generic Name Dose Route Start Last Admin Trade Name Freq PRN Reason Stop Dose Admin Sodium Chloride 1,000 mls @ 1,000 mls/hr 07/29/20 13:00 07/29/20 13:30 Normal Saline IV 1,000 mls/hr ASDIRECTED CASSIE Administration Piperacillin/Tazobactam/ 50 mls @ 100 mls/hr 07/29/20 13:45 07/29/20 13:41 Dextrose 3.375 gm/ Premix IV 07/29/20 14:14 100 mls/hr ONETIME ONE Administration Vancomycin HCl 1.5 gm/ Sodium 250 mls @ 167 mls/hr 07/29/20 14:15 Chloride IV 07/29/20 15:44 ONETIME ONE Discontinued Medications Generic Name Dose Route Start Last Admin Trade Name Freq PRN Reason Stop Dose Admin Hydromorphone HCl 0.25 mg 07/29/20 12:23 07/29/20 12:43 Hydromorphone 0.5 Mg/0.5 Ml Syringe IVPUSH 07/29/20 12:24 0.25 mg ONETIME ONE Administration Ondansetron HCl 4 mg 07/29/20 12:21 07/29/20 12:43 Ondansetron 4 Mg Tab.Dis PO 07/29/20 12:22 4 mg ONETIME ONE Administration Departure - Departure Time of Disposition: 14:20 Disposition: DC/Tfer to Acute Hospital 02 Condition: Fair Clinical Impression: Septicemia - Discharge Information *PRESCRIPTION DRUG MONITORING PROGRAM REVIEWED*: Not Applicable *COPY OF PRESCRIPTION DRUG MONITORING REPORT IN PATIENT MYLA: Not Applicable Referrals: Lisa Gerber MD [Primary Care Provider] - Forms: ED Department Discharge Sepsis Event Note (ED) - Focused Exam Vital Signs: Vital Signs Temp Pulse Resp BP Pulse Ox 07/29/20 12:18 36.6 C 101 H 16 148/73 H 99 07/29/20 12:06 36.6 C 101 H 16 148/73 H 99 - My Orders Last 24 Hours: My Active Orders 07/29/20 12:35 UA W/MICROSCOPIC [URIN] Stat 07/29/20 13:00 Sodium Chloride 0.9% [Normal Saline] 1,000 ml IV ASDIRECTED 07/29/20 13:45 Piperacillin/Tazobactam/Dext [Zosyn in Dextrose Iso-Osmotic 3.375 GM/50 ML] 3.375 gm Premix Bag 1 bag IV ONETIME 07/29/20 14:15 Vancomycin 1.5 gm Sodium Chloride 0.9% [Normal Saline] 250 ml IV ONETIME - Assessment/Plan Last 24 Hours: My Active Orders 07/29/20 12:35 UA W/MICROSCOPIC [URIN] Stat 07/29/20 13:00 Sodium Chloride 0.9% [Normal Saline] 1,000 ml IV ASDIRECTED 07/29/20 13:45 Piperacillin/Tazobactam/Dext [Zosyn in Dextrose Iso-Osmotic 3.375 GM/50 ML] 3.375 gm Premix Bag 1 bag IV ONETIME 07/29/20 14:15 Vancomycin 1.5 gm Sodium Chloride 0.9% [Normal Saline] 250 ml IV ONETIME
[2020-07-29] MEDS ORDERED: HYDROmorphone 0.5 MG/0.5 ML Syringe IVPUSH ONE ×3 (12:23→17:27)
[2020-07-29] MEDS ORDERED: Piperacillin/Tazobactam 3.375 GM in Sodium Chloride 0.9% 50 ML IV SCH (13:00)
[2020-07-29] MEDS ORDERED: Sodium Chloride 0.9% 1,000 ML IV SCH ×2 (13:00→17:30)
[2020-07-29] MEDS ORDERED: Piperacillin/Tazobactam/Dext 3.375 GM in Premix Bag 1 BAG IV ONE (13:45)
== END 2020-07-29 18:20 ==
LOC: JP.ED 09:54
DX: A41.9 Sepsis, unspecified organism (principal); Z79.899 Other long term (current) drug therapy
CPT/HCPCS: 0241U; 36415; 80048; 80053; 81001; 83605; 83735; 84145; 85025; 85027; 86140; 87040; 96365; 96367; 96375; 96376; 99285; A9270; J1170; J2543; J3370; J7030; J7050; J7120

== ENCOUNTER 2020-08-28 13:37 | Emergency (ER) | payer MEDICARE, OTHER ==
[2020-08-28] MEDS ORDERED: HYDROmorphone 1 MG/ML Syringe IVPUSH ONE ×2 (14:24→16:45)
--- NOTE | 2020-08-28 14:25 | EDM.PDOC ---
ED HPI GENERAL MEDICAL PROBLEM - General Chief Complaint: General Stated Complaint: WEAKNESS/FATIGUE Time Seen by Provider: 08/28/20 14:11 Source of Information: Reports: Patient, Family, Old Records, RN Notes Reviewed History Limitations: Reports: No Limitations - History of Present Illness INITIAL COMMENTS - FREE TEXT/NARRATIVE: 59-year-old female presents emergency department day complaint of weakness, she states she has been progressively weak over the last 4 to 5 days. 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 She states she has received her infusions today but continues to feel weak she has not had any fevers no nausea vomiting no shortness of breath or chest pain Rectal Pain Score (Numeric/FACES): 8 - Related Data Allergies Allergy/AdvReac Type Severity Reaction Status Date / Time No Known Allergies Allergy Verified 08/28/20 13:55 Home Meds: Home Meds Acetaminophen [Acetaminophen Extra Strength] 1,000 mg PO Q4HR PRN 06/17/19 [History] Cyanocobalamin (Vitamin B-12) [Cyanocobalamin Injection] 1 ml IM ASDIRECTED 06/17/19 [History] Imipramine HCl 200 mg PO BEDTIME 06/17/19 [History] Nystatin [Nystatin Oint] 1 dose TOP BID PRN 06/17/19 [History] Ondansetron [Zofran ODT] 4 mg PO Q4HR PRN 06/17/19 [History] Pedi Multivit No.25/Folic Acid [Flintstones Multivit Chew Tab] 1 tab PO DAILY 06/17/19 [History] SUMAtriptan [Imitrex] 50 mg PO BTNUNITS PRN 06/17/19 [History] DULoxetine [Cymbalta] 60 mg PO DAILY cap 09/16/19 [Rx] Lactobacillus Rhamnosus GG [Culturelle] 1 cap PO BID #60 cap 09/16/19 [Rx] Melatonin 9 mg PO BEDTIME tablet 09/16/19 [Rx] Atropine/Diphenoxylate [Diphenoxylate-Atropine] 2 tab PO Q6H 10/22/19 [History] Magnesium Oxide 400 mg PO TID 10/22/19 [History] Psyllium Seed (With Sugar) [Metamucil Fiber Wafer] 2 each PO TID #180 wafer 11/01/19 [Rx] Cholestyramine/Sucrose [Cholestyramine] 4 gm PO QID #120 packet 12/18/19 [Rx] Amylase/Lipase/Protease [Gus BEE 12,000 Units] 2 cap PO TID 01/19/20 [History] Magnesium Sulfate/D5W [Magnesium 2 Gram/50 ml-D5w] 2 gm IV ASDIRECTED 01/19/20 [History] OLANZapine [Olanzapine] 5 mg PO BID 03/10/20 [History] Loperamide [Imodium] 2 mg PO Q4H PRN 03/15/20 [History] LORazepam [Ativan] 0.5 mg PO Q6H PRN tablet 03/31/20 [Rx] tiZANidine [Zanaflex] 4 mg PO BID PRN tablet 03/31/20 [Rx] traMADol [Ultram] 2 tab PO Q6H PRN 06/09/20 [History] Folic Acid 0.4 mg PO DAILY 07/28/20 [History] Gabapentin [Neurontin] 900 mg PO TID 07/28/20 [History] predniSONE [Prednisone] 20 mg PO DAILY 07/28/20 [History] Past Medical History HEENT History: Reports: Impaired Vision Cardiovascular History: Reports: Arrhythmia Gastrointestinal History: Reports: Bowel Obstruction, Chronic Diarrhea, Other (See Below) Other Gastrointestinal History: hernia, multiple bowel surgerys, short gut syndrome Genitourinary History: Reports: Renal Calculus TUBE BLOWER History: Reports: Neurological History: Reports: Migraines Psychiatric History: Reports: Anxiety Endocrine/Metabolic History: Reports: Hypomagnesemia Hematologic History: Reports: Anemia, B12 Deficiency, Blood Transfusion(s), Folic Acid, Iron Deficiency Other Hematologic History: magnesium deficiency Oncologic (Cancer) History: Reports: None - Infectious Disease History Infectious Disease History: Reports: Chicken Pox, Measles, Mumps - Past Surgical History Head Surgeries/Procedures: Reports: None HEENT Surgical History: Reports: Adenoidectomy, Tonsillectomy Cardiovascular Surgical History: Reports: Cardiac Ablation GI Surgical History: Reports: Appendectomy, Colonoscopy, EGD, Other (See Below) Other GI Surgeries/Procedures: hernia, has ileostomy. ileostomy Female Surgical History: Reports: Hysterectomy, Other (See Below) Other Female Surgeries/Procedures: nephrectomy left Endocrine Surgical History: Reports: None Neurological Surgical History: Reports: None Social & Family History - Family History Family Medical History: No Pertinent Family History - Tobacco Use Tobacco Use Status *Q: Never Tobacco User - Caffeine Use Caffeine Use: Reports: Soda - Recreational Drug Use Recreational Drug Use: No ED ROS GENERAL - Review of Systems Review Of Systems: See Below Constitutional: Reports: Weakness. Denies: Fever, Chills HEENT: Reports: No Symptoms Respiratory: Reports: No Symptoms Cardiovascular: Reports: No Symptoms GI/Abdominal: Reports: No Symptoms : Reports: No Symptoms ED EXAM, GENERAL - Physical Exam Exam: See Below Exam Limited By: No Limitations General Appearance: Alert, WD/WN, No Apparent Distress Respiratory/Chest: No Respiratory Distress, Lungs Clear, Normal Breath Sounds, No Accessory Muscle Use, Chest Non-Tender Cardiovascular: Regular Rate, Rhythm, No Murmur GI/Abdominal: Soft, Non-Tender Course - Vital Signs Last Recorded V/S: Last Vital Signs Temp 95.5 F L 08/28/20 14:00 Pulse 60 08/28/20 16:00 Resp 24 H 08/28/20 16:00 BP 182/86 H 08/28/20 16:00 Pulse Ox 100 08/28/20 16:00 - Orders/Labs/Meds Orders: Active Orders 24 hr Category Date Time Status Vital Signs [RC] Q1H Care 08/28/20 14:21 Active CULTURE BLOOD [BC] Urgent Lab 08/28/20 14:30 Received CULTURE BLOOD [BC] Urgent Lab 08/28/20 14:43 Received Heparin Sodium [Heparin Lock Flush 100 Units/ML] Med 08/28/20 14:41 Active 500 units FLUSH ASDIRECTED PRN Blood Culture x2 Reflex Set [OM.PC] Urgent Oth 08/28/20 14:21 Ordered Medication Orders Heparin Sodium (Porcine) (Heparin Sodium 100 Units/Ml 5 Ml Syringe) 500 units FLUSH ASDIRECTED PRN PRN Reason: Keep Vein Open Last Admin: 08/28/20 17:03 Dose: 500 units Documented by: Admin: 08/28/20 14:46 Dose: 500 units Documented by: MORRIS Labs: Laboratory Tests 08/28/20 08/28/20 08/28/20 Range/Units 14:40 14:40 14:40 WBC 2.9 L (4.5-11.0) K/uL RBC 2.93 L (3.30-5.50) M/uL Hgb 9.0 L (12.0-15.0) g/dL Hct 27.0 L (36.0-48.0) % MCV 92 (80-98) fL MCH 31 (27-31) pg MCHC 33 (32-36) % Plt Count 127 L (150-400) K/uL Neut % (Auto) 57.2 (36-66) % Lymph % (Auto) 34.6 (24-44) % [place]k % (Auto) 8.2 H (2-6) % Eos % (Auto) 0.0 L (2-4) % Baso % (Auto) 0.0 (0-1) % Sodium 139 L (140-148) mmol/L Potassium 4.1 (3.6-5.2) mmol/L Chloride 103 (100-108) mmol/L Carbon Dioxide 25 (21-32) mmol/L Anion Gap 15.1 H (5.0-14.0) mmol/L BUN 11 (7-18) mg/dL Creatinine 1.2 H (0.6-1.0) mg/dL Est Cr Clr Drug Dosing 48.48 mL/min Estimated GFR (MDRD) 46 L (>60) Glucose 71 L (74-106) mg/dL Lactic Acid (0.4-2.0) mmol/L Calcium 8.6 (8.5-10.1) mg/dL Magnesium (1.8-2.4) mg/dL Total Bilirubin 0.5 (0.2-1.0) mg/dL AST 11 L (15-37) U/L ALT 17 (12-78) U/L Alkaline Phosphatase 101 (46-116) U/L C-Reactive Protein 0.09 (0.0-0.3) mg/dL Total Protein 7.8 (6.4-8.2) g/dL Albumin 3.3 L (3.4-5.0) g/dL Globulin 4.5 H (2.3-3.5) g/dL Albumin/Globulin Ratio 0.7 L (1.2-2.2) Procalcitonin 0.07 ng/mL Urine Color (YELLOW) Urine Appearance (CLEAR) Urine pH (5.0-8.0) Ur Specific [place] (1.008-1.030) Urine Protein (NEGATIVE) mg/dL Urine Glucose (UA) (NEGATIVE) mg/dL Urine Ketones (NEGATIVE) mg/dL Urine Occult Blood (NEGATIVE) Urine Nitrite (NEGATIVE) Urine Bilirubin (NEGATIVE) Urine Urobilinogen (0.2-1.0) EU/dL Ur Leukocyte Esterase (NEGATIVE) Urine RBC (0-5) Urine WBC (0-5) Ur Epithelial Cells Amorphous Sediment Urine Bacteria Urine Mucus 08/28/20 08/28/20 08/28/20 Range/Units 14:40 14:40 16:44 WBC (4.5-11.0) K/uL RBC (3.30-5.50) M/uL Hgb (12.0-15.0) g/dL Hct (36.0-48.0) % MCV (80-98) fL MCH (27-31) pg MCHC (32-36) % Plt Count (150-400) K/uL Neut % (Auto) (36-66) % Lymph % (Auto) (24-44) % [place] % (Auto) (2-6) % Eos % (Auto) (2-4) % Baso % (Auto) (0-1) % Sodium (140-148) mmol/L Potassium (3.6-5.2) mmol/L Chloride (100-108) mmol/L Carbon Dioxide (21-32) mmol/L Anion Gap (5.0-14.0) mmol/L BUN (7-18) mg/dL Creatinine (0.6-1.0) mg/dL Est Cr Clr Drug Dosing mL/min Estimated GFR (MDRD) (>60) Glucose (74-106) mg/dL Lactic Acid 1.1 (0.4-2.0) mmol/L Calcium (8.5-10.1) mg/dL Magnesium 1.9 (1.8-2.4) mg/dL Total Bilirubin (0.2-1.0) mg/dL AST (15-37) U/L ALT (12-78) U/L Alkaline Phosphatase (46-116) U/L C-Reactive Protein (0.0-0.3) mg/dL Total Protein (6.4-8.2) g/dL Albumin (3.4-5.0) g/dL Globulin (2.3-3.5) g/dL Albumin/Globulin Ratio (1.2-2.2) Procalcitonin ng/mL Urine Color Yellow (YELLOW) Urine Appearance Clear (CLEAR) Urine pH 7.0 (5.0-8.0) Ur Specific [place] 1.015 (1.008-1.030) Urine Protein Negative (NEGATIVE) mg/dL Urine Glucose (UA) Negative (NEGATIVE) mg/dL Urine Ketones Negative (NEGATIVE) mg/dL Urine Occult Blood Trace-intact H (NEGATIVE) Urine Nitrite Negative (NEGATIVE) Urine Bilirubin Negative (NEGATIVE) Urine Urobilinogen 0.2 (0.2-1.0) EU/dL Ur Leukocyte Esterase Negative (NEGATIVE) Urine RBC 0-5 (0-5) Urine WBC 0-5 (0-5) Ur Epithelial Cells Rare Amorphous Sediment Not seen Urine Bacteria Rare Urine Mucus Not seen Meds: Medications Generic Name Dose Route Start Last Admin Trade Name Freq PRN Reason Stop Dose Admin Heparin Sodium (Porcine) 500 units 08/28/20 14:41 08/28/20 17:03 Heparin Sodium 100 Units/Ml 5 Ml Syringe FLUSH 500 units ASDIRECTED PRN Administration Keep Vein Open Discontinued Medications Generic Name Dose Route Start Last Admin Trade Name Freq PRN Reason Stop Dose Admin Hydromorphone HCl 1 mg 08/28/20 14:24 08/28/20 14:33 Hydromorphone 1 Mg/Ml Syringe IVPUSH 08/28/20 14:25 1 mg ONETIME ONE Administration Hydromorphone HCl 1 mg 08/28/20 16:45 08/28/20 16:58 Hydromorphone 1 Mg/Ml Syringe IVPUSH 08/28/20 16:46 1 mg ONETIME ONE Administration Lorazepam 1 mg 08/28/20 17:39 08/28/20 17:47 Lorazepam 2 Mg/Ml Sdv IVPUSH 08/28/20 17:40 1 mg ONETIME ONE Administration Departure - Departure Time of Disposition: 18:48 Disposition: Home, Self-Care 01 Condition: Poor Clinical Impression: Weakness - Discharge Information Instructions: Weakness, [id number] Referrals: Lisa Gerber MD [Primary Care Provider] - Forms: ED Department Discharge Additional Instructions: Use the Ativan as needed for anxiety symptoms, please keep your follow-up appointment with your primary care on Monday, call or return to the emergency department worsening of symptoms Sepsis Event Note (ED) - Evaluation Sepsis Screening Result: No Definite Risk - Focused Exam Vital Signs: Vital Signs Temp Pulse Resp BP Pulse Ox 08/28/20 16:00 60 24 H 182/86 H 100 08/28/20 15:00 56 L 172/81 H 100 08/28/20 14:21 52 L 146/66 H 99 08/28/20 14:00 95.5 F L 53 L 18 146/66 H 100 - My Orders Last 24 Hours: My Active Orders 08/28/20 14:21 Vital Signs [RC] Q1H Blood Culture x2 Reflex Set [OM.PC] Urgent 08/28/20 14:30 CULTURE BLOOD [BC] Urgent 08/28/20 14:41 Heparin Sodium [Heparin Lock Flush 100 Units/ML] 500 units FLUSH ASDIRECTED PRN 08/28/20 14:43 CULTURE BLOOD [BC] Urgent - Assessment/Plan Last 24 Hours: My Active Orders 08/28/20 14:21 Vital Signs [RC] Q1H Blood Culture x2 Reflex Set [OM.PC] Urgent 08/28/20 14:30 CULTURE BLOOD [BC] Urgent 08/28/20 14:41 Heparin Sodium [Heparin Lock Flush 100 Units/ML] 500 units FLUSH ASDIRECTED PRN 08/28/20 14:43 CULTURE BLOOD [BC] Urgent Plan: Assessment Acuity = acute Site and laterality = weakness complicated the patient with known history of autoimmune hemolytic anemia Etiology = unknown Manifestations = none Location of injury = Home Lab values = WBC low at 2.9 consistent leukopenia however this is her baseline, hemoglobin low 9.0 consistent with normochromic anemia creatinine elevated 1.2 consistent with chronic renal failure stage G3 a lactic acid normal 1.1 CRP normal 0.09 urinalysis unremarkable Plan I did review lab work with her blood cultures are pending she is going to continue to monitor her symptoms as she did become very upset when I was unable to find anything wrong with her she does have follow-up appointment with primary care on Monday I did provide her prescription Ativan 1 mg p.o. 3 times daily. Total #10 This note was dictated using [employer] voice recognition software please call with any questions on syntax or grammar.
[2020-08-28] MEDS ORDERED: LORazepam 2 MG/ML SDV IVPUSH ONE (17:39)
== END 2020-08-28 19:03 | disposition home or self-care (01) ==
LOC: JP.ED 13:37
DX: R53.1 Weakness (principal)
CPT/HCPCS: 36415; 80053; 81001; 83605; 83735; 84145; 85025; 86140; 87040; 96374; 96375; 96376; 99284; J1170; J1642; J2060

== ENCOUNTER 2020-08-30 22:15 | Emergency (ER) | payer MEDICARE, OTHER ==
[2020-08-30] MEDS ORDERED: Lactated Ringers 1,000 ML IV SCH (22:45)
[2020-08-30] MEDS ORDERED: HYDROmorphone 1 MG/ML Syringe IVPUSH ONE (22:59)
--- NOTE | 2020-08-30 23:17 | EDM.PDOC ---
ED HPI GENERAL MEDICAL PROBLEM - General Chief Complaint: General Stated Complaint: WEAKNESS Time Seen by Provider: 08/30/20 22:30 Source of Information: Reports: Patient, Family, Old Records History Limitations: Reports: No Limitations - History of Present Illness INITIAL COMMENTS - FREE TEXT/NARRATIVE: Aline is a 59-year-old female presenting to the ED for evaluation of increasing generalized weakness, worsening of her chronic pain syndrome, and generally feeling much more unwell. Patient has a very complicated past medical history including history of Crohn's disease complicated by a history of a colectomy with a colostomy and then having 17 inches of her small bowel removed leaving her with short gut syndrome and chronic hypomagnesemia. She now has an ileostomy. 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 She has had her left kidney removed due to recurrent nephrolithiasis with the most recent causing scarring of the proximal ureter and then dysfunction of the left kidney. She is on chronic pain medication for rectal and low back pain. She gets daily infusions through James catheter of lactated Ringer's and if her magnesium is found to be low she gets 4 g of magnesium through her James catheter. She is followed by home health who manages her James site and as well as the infusions of the lactated Ringer's and or magnesium. She does give herself dapsone 40 mg daily. The patient was recently hospitalized at [facility] for sepsis with cultures growing out Klebsiella from her central line. She underwent 4 different James placements and was discharged home on daptomycin and prednisone daily. Last week they started to taper her prednisone by 10 mg a day per week. Monday this week she was brought down to 10 mg twice daily at which time she started to feel marked increase in weakness and pain. She was seen in the ED on Monday (2 days ago and evaluated by one of my partners) for similar symptoms and was found to have no significant lab abnormalities and was discharged home. She has a follow-up with her primary care provider on Monday but was instructed that if she worsen to return to the ED for reevaluation. This is occurring and has prompted her to come in for evaluation today. It does appear that she recently concluded her daptomycin infusion therapy for the central line sepsis. Blood cultures were drawn 2 days ago and are currently negative. generalized Pain Score (Numeric/FACES): 10 - Related Data Allergies Allergy/AdvReac Type Severity Reaction Status Date / Time No Known Allergies Allergy Verified 08/30/20 22:35 Home Meds: Home Meds Acetaminophen [Acetaminophen Extra Strength] 1,000 mg PO Q4HR PRN 06/17/19 [History] Cyanocobalamin (Vitamin B-12) [Cyanocobalamin Injection] 1 ml IM ASDIRECTED 06/17/19 [History] Imipramine HCl 200 mg PO BEDTIME 06/17/19 [History] Nystatin [Nystatin Oint] 1 dose TOP BID PRN 06/17/19 [History] Ondansetron [Zofran ODT] 4 mg PO Q4HR PRN 06/17/19 [History] Pedi Multivit No.25/Folic Acid [Flintstones Multivit Chew Tab] 1 tab PO DAILY 06/17/19 [History] SUMAtriptan [Imitrex] 50 mg PO BTNUNITS PRN 06/17/19 [History] DULoxetine [Cymbalta] 60 mg PO DAILY cap 09/16/19 [Rx] Lactobacillus Rhamnosus GG [Culturelle] 1 cap PO BID #60 cap 09/16/19 [Rx] Melatonin 9 mg PO BEDTIME tablet 09/16/19 [Rx] Atropine/Diphenoxylate [Diphenoxylate-Atropine] 2 tab PO Q6H 10/22/19 [History] Magnesium Oxide 400 mg PO TID 10/22/19 [History] Psyllium Seed (With Sugar) [Metamucil Fiber Wafer] 2 each PO TID #180 wafer 11/01/19 [Rx] Cholestyramine/Sucrose [Cholestyramine] 4 gm PO QID #120 packet 12/18/19 [Rx] Amylase/Lipase/Protease [Creon DR 12,000 Units] 2 cap PO TID 01/19/20 [History] Magnesium Sulfate/D5W [Magnesium 2 Gram/50 ml-D5w] 2 gm IV ASDIRECTED 01/19/20 [History] OLANZapine [Olanzapine] 5 mg PO BID 03/10/20 [History] Loperamide [Imodium] 2 mg PO Q4H PRN 03/15/20 [History] LORazepam [Ativan] 0.5 mg PO Q6H PRN tablet 03/31/20 [Rx] tiZANidine [Zanaflex] 4 mg PO BID PRN tablet 03/31/20 [Rx] traMADol [Ultram] 2 tab PO Q6H PRN 06/09/20 [History] Folic Acid 0.4 mg PO DAILY 07/28/20 [History] Gabapentin [Neurontin] 900 mg PO TID 07/28/20 [History] predniSONE [Prednisone] 20 mg PO DAILY 07/28/20 [History] Past Medical History HEENT History: Reports: Impaired Vision Cardiovascular History: Reports: Arrhythmia Gastrointestinal History: Reports: Bowel Obstruction, Chronic Diarrhea, Other (See Below) Other Gastrointestinal History: hernia, multiple bowel surgerys, short gut syndr ome Genitourinary History: Reports: Renal Calculus GENERAL CLEANER History: Reports: Neurological History: Reports: Migraines Psychiatric History: Reports: Anxiety Endocrine/Metabolic History: Reports: Hypomagnesemia Hematologic History: Reports: Anemia, B12 Deficiency, Blood Transfusion(s), Folic Acid, Iron Deficiency Other Hematologic History: magnesium deficiency Oncologic (Cancer) History: Reports: None - Infectious Disease History Infectious Disease History: Reports: Chicken Pox, Measles, Mumps - Past Surgical History Head Surgeries/Procedures: Reports: None HEENT Surgical History: Reports: Adenoidectomy, Tonsillectomy Cardiovascular Surgical History: Reports: Cardiac Ablation GI Surgical History: Reports: Appendectomy, Colonoscopy, EGD, Other (See Below) Other GI Surgeries/Procedures: hernia, has ileostomy. ileostomy Female Surgical History: Reports: Hysterectomy, Other (See Below) Other Female Surgeries/Procedures: nephrectomy left Endocrine Surgical History: Reports: None Neurological Surgical History: Reports: None Social & Family History - Family History Family Medical History: No Pertinent Family History - Tobacco Use Tobacco Use Status *Q: Never Tobacco User Second Hand Smoke Exposure: No - Caffeine Use Caffeine Use: Reports: None - Recreational Drug Use Recreational Drug Use: No ED ROS GENERAL - Review of Systems Review Of Systems: See Below Constitutional: Reports: Weakness (Worsening generalized weakness), Fatigue HEENT: Reports: No Symptoms Respiratory: Reports: No Symptoms Cardiovascular: Reports: Edema (Patient reports intermittent forearm and ankle edema, currently none present now.) Endocrine: Reports: No Symptoms GI/Abdominal: Reports: Other (Worsening rectal pain. Ileostomy is functioning as before.) : Reports: No Symptoms Musculoskeletal: Reports: Back Pain (Worsening low back pain) Skin: Reports: No Symptoms Neurological: Reports: Difficulty Walking, Weakness Psychiatric: Reports: Anxiety Hematologic/Lymphatic: Reports: Anemia (Donath Landsteiner cold agglutinin anemia) Immunologic: Reports: No Symptoms ED EXAM, GENERAL - Physical Exam Exam: See Below Exam Limited By: No Limitations General Appearance: Alert, Anxious, Mild Distress, Other (Appearing ill) Eye Exam: Bilateral Eye: EOMI, PERRL Nose: Normal Inspection Throat/Mouth: Normal Inspection, Normal Oropharynx, Normal Voice, No Airway Compromise Head: Atraumatic, Normocephalic Neck: Normal Inspection, Supple. No: Carotid Bruit, Lymphadenopathy (R), Lymphadenopathy (L) Respiratory/Chest: No Respiratory Distress, Lungs Clear, Normal Breath Sounds Cardiovascular: Normal Peripheral Pulses, Regular Rate, Rhythm, No Murmur Peripheral Pulses: 2+: Radial (L), Radial (R), Posterior Tibial (L), Posterior Tibial (R) GI/Abdominal: Normal Bowel Sounds, Soft, Non-Tender Extremities: Normal Inspection, Normal Range of Motion, No Pedal Edema Neurological: Alert, Oriented, Normal Cognition, No Motor/Sensory Deficits Psychiatric: Normal Affect, Anxious Skin Exam: Warm, Dry, Intact, Normal Color Lymphatic: No Adenopathy Course - Vital Signs Last Recorded V/S: Last Vital Signs Temp 36.6 C 08/30/20 22:45 Pulse 60 08/30/20 22:45 Resp 20 08/30/20 22:45 BP 160/68 H 08/30/20 22:45 Pulse Ox 95 08/30/20 22:45 - Orders/Labs/Meds Orders: Active Orders 24 hr Category Date Time Status CULTURE BLOOD [BC] Urgent Lab 08/30/20 23:15 Received CULTURE BLOOD [BC] Urgent Lab 08/30/20 23:29 Received Lactated Ringers [Ringers, Lactated] 1,000 ml Med 08/30/20 22:45 Active IV ASDIRECTED Magnesium Sulfate/Water [Magnesium Sulfate in Water 2 Med 08/30/20 23:47 Active GM/50 ML] 2 gm Premix Bag 1 bag IV ONETIME Blood Culture x2 Reflex Set [OM.PC] Urgent Oth 08/30/20 22:59 Ordered Medication Orders Lactated Ringer's (Ringers, Lactated) 1,000 mls @ 999 mls/hr IV ASDIRECTED CASSIE Last Admin: 08/30/20 23:14 Dose: 999 mls/hr Documented by: YOAV Magnesium Sulfate 2 gm/ Premix 50 mls @ 25 mls/hr IV ONETIME ONE Stop: 08/31/20 01:46 Labs: Laboratory Tests 08/30/20 08/30/20 08/30/20 Range/Units 23:17 23:17 23:51 WBC 3.1 L (4.5-11.0) K/uL RBC 2.74 L (3.30-5.50) M/uL Hgb 8.6 L (12.0-15.0) g/dL Hct 26.0 L (36.0-48.0) % MCV 95 (80-98) fL MCH 31 (27-31) pg MCHC 33 (32-36) % Plt Count 129 L (150-400) K/uL Neut % (Auto) 55.1 (36-66) % Lymph % (Auto) 35.7 (24-44) % Emmet % (Auto) 9.2 H (2-6) % Eos % (Auto) 0.0 L (2-4) % Baso % (Auto) 0.0 (0-1) % Sodium 141 (140-148) mmol/L Potassium 3.7 (3.6-5.2) mmol/L Chloride 104 (100-108) mmol/L Carbon Dioxide 24 (21-32) mmol/L Anion Gap 13.2 (5.0-14.0) mmol/L BUN 15 (7-18) mg/dL Creatinine 1.4 H (0.6-1.0) mg/dL Est Cr Clr Drug Dosing 41.55 mL/min Estimated GFR (MDRD) 38 L (>60) Glucose 143 H (74-106) mg/dL Calcium 8.1 L (8.5-10.1) mg/dL Magnesium 1.7 L (1.8-2.4) mg/dL Total Bilirubin 0.4 (0.2-1.0) mg/dL AST 14 L (15-37) U/L ALT 18 (12-78) U/L Alkaline Phosphatase 101 (46-116) U/L C-Reactive Protein 0.06 (0.0-0.3) mg/dL Total Protein 7.6 (6.4-8.2) g/dL Albumin 3.2 L (3.4-5.0) g/dL Globulin 4.4 H (2.3-3.5) g/dL Albumin/Globulin Ratio 0.7 L (1.2-2.2) Urine Color Yellow (YELLOW) Urine Appearance Clear (CLEAR) Urine pH 8.0 (5.0-8.0) Ur Specific [place] 1.020 (1.008-1.030) Urine Protein 30 H (NEGATIVE) mg/dL Urine Glucose (UA) Negative (NEGATIVE) mg/dL Urine Ketones Negative (NEGATIVE) mg/dL Urine Occult Blood Trace-intact H (NEGATIVE) Urine Nitrite Negative (NEGATIVE) Urine Bilirubin Negative (NEGATIVE) Urine Urobilinogen 0.2 (0.2-1.0) EU/dL Ur Leukocyte Esterase Negative (NEGATIVE) Urine RBC 0-5 (0-5) Urine WBC 0-5 (0-5) Ur Epithelial Cells Few Amorphous Sediment Not seen Urine Bacteria Not seen Urine Mucus Not seen Meds: Medications Generic Name Dose Route Start Last Admin Trade Name Freq PRN Reason Stop Dose Admin Lactated Ringer's 1,000 mls @ 999 mls/hr 08/30/20 22:45 08/30/20 23:14 Ringers, Lactated IV 999 mls/hr ASDIRECTED CASSIE Administration Magnesium Sulfate 2 gm/ Premix 50 mls @ 25 mls/hr 08/30/20 23:47 IV 08/31/20 01:46 ONETIME ONE Discontinued Medications Generic Name Dose Route Start Last Admin Trade Name Freq PRN Reason Stop Dose Admin Hydromorphone HCl 1 mg 08/30/20 22:59 08/30/20 23:15 Hydromorphone 1 Mg/Ml Syringe IVPUSH 08/30/20 23:00 1 mg ONETIME ONE Administration - Re-Assessments/Exams Free Text/Narrative Re-Assessment/Exam: 08/30/20 23:48 I have reviewed the patient's labs showing a hemoglobin of 8.6 with a hematocrit of 26.0, leukocyte count of 3.1 with a platelet count of 129,000. The hemoglobin is down from her previous of 9.7 from 08/26/2020. The comprehensive metabolic panel is significant for sodium 141, potassium 3.7, chloride of 104, bicarbonate of 24, BUN of 15 with a creatinine of 1.4 and a glucose of 143. AST and ALT are normal at 14 and 18 respectively. C-reactive protein is normal at 0.06. Albumin is 3.2 with a calcium of 8.1. The corrected calcium is 8.3 which is still low. This is down from her previous office visit when her calcium was 9.4. We will give her calcium gluconate IV. Her magnesium is 1.7 so we will also give her magnesium sulfate 2 g IV. Her GFR is calculated at 38. 08/31/20 00:17 I discussed the results of the labs with the patient concerning the drop in her hemoglobin to 8.6, the slight worsening of her kidney function with a creatinine 1.2, and her low calcium at 8.1 and magnesium of 1.7. Patient does not understand why she is no longer able to stand or walk. She is also having episodes where she is just falling asleep. She feels horrible with her pain and is having difficulty with concentration. She is convinced that something is absolutely wrong with her body. I will discussed the case with the hospitalist service at [facility] to see if I can arrange for transfer of the patient for admission there as she likely will need more intensive work-up and intervention than what we have available here. 08/31/20 00:37 I discussed the case with Dr. Carreno from the emergency room at [facility] who accepts the patient in transfer and will arrange for direct admission to the medical service. Departure - Departure Time of Disposition: 00:37 Disposition: DC/Tfer to [facility] 02 Clinical Impression: Generalized muscle weakness, Hypomagnesemia, Hypocalcemia, Donath-Landsteiner hemolytic anemia, High output ileostomy, History of left nephrectomy, Chronic pain syndrome Crohn's disease Qualifiers: Gastrointestinal tract location: unspecified location Digestive disease complication type: other complication Qualified Code(s): K50.918 - Crohn's disease, unspecified, with other complication CKD (chronic kidney disease), stage III Qualifiers: Chronic kidney disease stage 3 subtype: stage 3a (GFR 45-59) Qualified Code(s): N18.31 - Chronic kidney disease, stage 3a - Discharge Information Referrals: PCP,None [Primary Care Provider] - Forms: ED Department Discharge Sepsis Event Note (ED) - Evaluation Sepsis Screening Result: No Definite Risk - Focused Exam Vital Signs: Vital Signs Temp Pulse Resp BP Pulse Ox 08/30/20 22:45 36.6 C 60 20 160/68 H 95 08/30/20 22:29 36.6 C 60 20 160/68 H 95 - Problem List & Annotations (1) Donath-Landsteiner hemolytic anemia SNOMED Code(s): 12711410 Code(s): D59.6 - HEMOGLOBINURIA DUE TO HEMOLYSIS FROM OTHER EXTERNAL CAUSES Status: Chronic Priority: High Current Visit: Yes (2) Generalized muscle weakness SNOMED Code(s): 12530866, 14448498 Code(s): M62.81 - MUSCLE WEAKNESS (GENERALIZED) Status: Acute Priority: High Current Visit: Yes (3) High output ileostomy SNOMED Code(s): 816078156 Code(s): R19.8 - OTH SYMPTOMS AND SIGNS INVOLVING THE DGSTV SYS AND ABDOMEN; Z93.2 - ILEOSTOMY STATUS Status: Chronic Priority: High Current Visit: Yes (4) Hypocalcemia SNOMED Code(s): 7504162 Code(s): E83.51 - HYPOCALCEMIA Status: Acute Priority: High Current Visit: Yes (5) Hypomagnesemia SNOMED Code(s): 755271802 Code(s): E83.42 - HYPOMAGNESEMIA Status: Acute Priority: High Current Visit: Yes (6) CKD (chronic kidney disease), stage III SNOMED Code(s): 498484889 Code(s): N18.3 - CHRONIC KIDNEY DISEASE, STAGE 3 (MODERATE) * DO NOT USE * Status: Chronic Priority: Medium Current Visit: Yes Qualifiers: Chronic kidney disease stage 3 subtype: stage 3b (GFR 30-44) Qualified Code(s): N18.32 - Chronic kidney disease, stage 3b (7) Chronic pain syndrome SNOMED Code(s): 381701926 Code(s): G89.4 - CHRONIC PAIN SYNDROME Status: Chronic Priority: Medium Current Visit: Yes (8) Crohn's disease SNOMED Code(s): 15940969 Code(s): K50.90 - CROHN'S DISEASE, UNSPECIFIED, WITHOUT COMPLICATIONS Status: Chronic Priority: High Current Visit: Yes Qualifiers: Gastrointestinal tract location: unspecified location Digestive disease complication type: other complication Qualified Code(s): K50.918 - Crohn's disease, unspecified, with other complication - Problem List Review Problem List Initiated/Reviewed/Updated: Yes - My Orders Last 24 Hours: My Active Orders 08/30/20 22:45 Lactated Ringers [Ringers, Lactated] 1,000 ml IV ASDIRECTED 08/30/20 22:59 Blood Culture x2 Reflex Set [OM.PC] Urgent 08/30/20 23:15 CULTURE BLOOD [BC] Urgent 08/30/20 23:29 CULTURE BLOOD [BC] Urgent 08/30/20 23:47 Magnesium Sulfate/Water [Magnesium Sulfate in Water 2 GM/50 ML] 2 gm Premix Bag 1 bag IV ONETIME - Assessment/Plan Last 24 Hours: My Active Orders 08/30/20 22:45 Lactated Ringers [Ringers, Lactated] 1,000 ml IV ASDIRECTED 08/30/20 22:59 Blood Culture x2 Reflex Set [OM.PC] Urgent 08/30/20 23:15 CULTURE BLOOD [BC] Urgent 08/30/20 23:29 CULTURE BLOOD [BC] Urgent 08/30/20 23:47 Magnesium Sulfate/Water [Magnesium Sulfate in Water 2 GM/50 ML] 2 gm Premix Bag 1 bag IV ONETIME
[2020-08-30] MEDS ORDERED: Magnesium Sulfate/Water 2 GM in Premix Bag 1 BAG IV ONE (23:47)
[2020-08-31] MEDS ORDERED: Calcium Gluconate 10% 1 GM/10 ML SDV IVPUSH ONE (00:17)
[2020-08-31] MEDS ORDERED: HYDROmorphone 1 MG/ML Syringe IVPUSH ONE (01:02)
== END 2020-08-31 01:36 ==
LOC: JP.ED 22:15
DX: E83.42 Hypomagnesemia (principal); K50.918 Crohn's disease, unspecified, with other complication; E83.51 Hypocalcemia; D58.9 Hereditary hemolytic anemia, unspecified; G89.4 Chronic pain syndrome; N18.31 Chronic kidney disease, stage 3a; Z79.899 Other long term (current) drug therapy; Z93.2 Ileostomy status; Z90.5 Acquired absence of kidney; Z20.822 Contact with and (suspected) exposure to COVID-19
CPT/HCPCS: 36415; 80053; 81001; 83735; 85025; 86140; 87040; 96365; 96366; 96374; 96375; 99285-25; J0610; J1170; J3475; J7120; U0002

== ENCOUNTER 2020-10-21 04:07 | Emergency (ER) | payer MEDICARE, OTHER ==
--- NOTE | 2020-10-21 05:00 | EDM.PDOC ---
ED HPI GENERAL MEDICAL PROBLEM - General Chief Complaint: General Stated Complaint: LOW HEMOGLOBIN Time Seen by Provider: 10/21/20 04:49 Source of Information: Reports: Patient, Family History Limitations: Reports: No Limitations - History of Present Illness INITIAL COMMENTS - FREE TEXT/NARRATIVE: Patient presents to the emergency room today secondary to a phone call that she received last evening from her infectious disease doctor in [place] due to reported low hemoglobin as well as low magnesium. It was recommended that she come into the emergency room to be admitted for transfusion. She has chronic blood count problems as well as chronic low magnesium secondary to multiple medical issues including short gut syndrome and dumping syndrome. She states that she is followed by infectious disease hematology as well as her PCM for monitoring of these levels currently she has home health home health that comes to her house weekly on Tuesdays for James care as well as chronic labs previous labs completed on 10 13 noted for an H/H10.2/30.1 labs that were completed on 20 October noted for an H/H--6.3/19.2 magnesium has been 1.7-1.3 respectively patient denies any symptoms of concern at this time she states that she called the ER yesterday evening to find out recommendations. Because of emergency room restrictions we were unable to provide her any advice and she decided to wait until we were less busy and come in at that point when she woke up during the night or the next morning. Now presents to the emergency room with her as instructed PMH/Meds--reviewed in the EMR as well as most recent clinic notes NKDA COVID immunization--pfiezer, second dose received approx 6 weeks ago thus fully immunizaed - Related Data Allergies Allergy/AdvReac Type Severity Reaction Status Date / Time No Known Allergies Allergy Verified 10/21/20 04:26 Home Meds: Home Meds Acetaminophen [Acetaminophen Extra Strength] 1,000 mg PO Q4HR PRN 06/17/19 [History] Cyanocobalamin (Vitamin B-12) [Cyanocobalamin Injection] 1 ml IM ASDIRECTED 06/17/19 [History] Imipramine HCl 200 mg PO BEDTIME 06/17/19 [History] Nystatin [Nystatin Oint] 1 dose TOP BID PRN 06/17/19 [History] Ondansetron [Zofran ODT] 4 mg PO Q4HR PRN 06/17/19 [History] Pedi Multivit No.25/Folic Acid [Flintstones Multivit Chew Tab] 1 tab PO DAILY 06/17/19 [History] SUMAtriptan [Imitrex] 50 mg PO BTNUNITS PRN 06/17/19 [History] DULoxetine [Cymbalta] 60 mg PO DAILY cap 09/16/19 [Rx] Lactobacillus Rhamnosus GG [Culturelle] 1 cap PO BID #60 cap 09/16/19 [Rx] Melatonin 9 mg PO BEDTIME tablet 09/16/19 [Rx] Atropine/Diphenoxylate [Diphenoxylate-Atropine] 2 tab PO QID PRN 10/22/19 [History] Psyllium Seed (With Sugar) [Metamucil Fiber Wafer] 2 each PO TID #180 wafer 11/01/19 [Rx] Magnesium Sulfate/D5W [Magnesium 2 Gram/50 ml-D5w] 2 gm IV ASDIRECTED 01/19/20 [History] Loperamide [Imodium] 2 mg PO Q4H PRN 03/15/20 [History] LORazepam [Ativan] 0.5 mg PO Q6H PRN tablet 03/31/20 [Rx] tiZANidine [Zanaflex] 4 mg PO BID PRN tablet 03/31/20 [Rx] traMADol [Ultram] 2 tab PO Q6H PRN 06/09/20 [History] Folic Acid 1 mg PO DAILY 07/28/20 [History] Gabapentin [Neurontin] 900 mg PO TID 07/28/20 [History] Amylase/Lipase/Protease 10,000 [[address] 10,000 Unit] 2 each PO TID 10/21/20 [History] Cholestyramine/Sucrose [Cholestyramine] 4 gm PO QID PRN 10/21/20 [History] Magnesium Chloride [Magnesium] 64 mg PO Q12H 10/21/20 [History] Metoprolol Tartrate 25 mg PO BID 10/21/20 [History] Past Medical History HEENT History: Reports: Impaired Vision Cardiovascular History: Reports: Arrhythmia Gastrointestinal History: Reports: Bowel Obstruction, Chronic Diarrhea, Other (See Below) Other Gastrointestinal History: hernia, multiple bowel surgerys, short gut syndrome Genitourinary History: Reports: Renal Calculus [employer] History: Reports: Neurological History: Reports: Migraines Psychiatric History: Reports: Anxiety Endocrine/Metabolic History: Reports: Hypomagnesemia Hematologic History: Reports: Anemia, B12 Deficiency, Blood Transfusion(s), Folic Acid, Iron Deficiency Other Hematologic History: magnesium deficiency Oncologic (Cancer) History: Reports: None - Infectious Disease History Infectious Disease History: Reports: Chicken Pox, Measles, Mumps - Past Surgical History Head Surgeries/Procedures: Reports: None HEENT Surgical History: Reports: Adenoidectomy, Tonsillectomy Cardiovascular Surgical History: Reports: Cardiac Ablation GI Surgical History: Reports: Appendectomy, Cholecystectomy, Colonoscopy, EGD, Other (See Below) Other GI Surgeries/Procedures: hernia, has ileostomy. ileostomy Female Surgical History: Reports: Hysterectomy, Other (See Below) Other Female Surgeries/Procedures: nephrectomy left Endocrine Surgical History: Reports: None Neurological Surgical History: Reports: None Dermatological Surgical History: Reports: None Social & Family History - Family History Family Medical History: No Pertinent Family History - Tobacco Use Tobacco Use Status *Q: Never Tobacco User - Caffeine Use Caffeine Use: Reports: None ED ROS GENERAL - Review of Systems Review Of Systems: Comprehensive ROS is negative, except as noted in HPI. ED EXAM, GENERAL - Physical Exam Exam: See Below Exam Limited By: No Limitations General Appearance: Alert, WD/WN, No Apparent Distress Eye Exam: Bilateral Eye: Normal Inspection Ears: Normal External Exam Nose: Normal Inspection Throat/Mouth: Normal Inspection, Normal Voice, No Airway Compromise Head: Atraumatic, Normocephalic Neck: Normal Inspection, Supple, Full Range of Motion Respiratory/Chest: No Respiratory Distress, Lungs Clear, Normal Breath Sounds Cardiovascular: Normal Peripheral Pulses, Regular Rate, Rhythm, No Edema, No Murmur Peripheral Pulses: 2+: Radial (L), Radial (R) GI/Abdominal: Normal Bowel Sounds, Soft (Female) Exam: Deferred Rectal (Female) Exam: Deferred Back Exam: Normal Inspection Extremities: Normal Inspection, No Pedal Edema, Normal Capillary Refill Neurological: Alert, Oriented, Normal Cognition, No Motor/Sensory Deficits Psychiatric: Normal Affect, Normal Mood Skin Exam: Warm, Dry, Intact, Normal Color Course - Vital Signs Text/Narrative:: 0530--Labs have returned and been reviewed magnesium2.2 she does have slightly decreased sodium as well as mildly increased creatinine1.5. CBC is reviewed noted to have significant anemia as well as significant thrombocytopenia. No signs or symptoms of bleeding have been reported by patient thus platelet transfusion is not indicated at this time blood has been ordered for 2 units to transfuse secondary to patient antibodies it will take several hours to get crossmatch blood from [place]. Call placed to Dr. RodarteHospitalist awaiting callback at this time for admission 0538--received call back from Dr. Rodarte Hospitalist. This was discussed he will arrange outpatient transfusion through outpatient services when they open a t 6:37 AM it was discussed and he is aware that should admission as an outpatient be required that there is a bed available patient and are updated as well as nursing Last Recorded V/S: Last Vital Signs Temp 97.4 F 10/21/20 04:24 Pulse 93 10/21/20 04:24 Resp 16 10/21/20 04:24 BP 136/51 L 10/21/20 04:24 Pulse Ox 93 L 10/21/20 04:24 - Orders/Labs/Meds Orders: Active Orders 24 hr Category Date Time Status RED BLOOD CELLS LP [BBK] Stat Lab 10/21/20 05:12 Ordered TYPE AND SCREEN [BBK] Stat Lab 10/21/20 05:12 Ordered Sodium Chloride 0.9% @ 50 MLS/HR(1000ml) Med 10/21/20 05:30 Ordered Sodium Chloride 0.9% [Normal Saline] 1,000 ml IV ASDIRECTED Blood Transfusion Reflex Set [OM.PC] Per Unit Routine Oth 10/21/20 05:13 Ordered Medication Orders Sodium Chloride (Normal Saline) 1,000 mls @ 50 mls/hr IV ASDIRECTED CASSIE Labs: Laboratory Tests 10/21/20 10/21/20 Range/Units 05:10 05:10 WBC 2.5 L (4.5-11.0) K/uL RBC 1.73 L (3.30-5.50) M/uL Hgb 5.7 L* D (12.0-15.0) g/dL Hct 18.1 L (36.0-48.0) % MCV 105 H (80-98) fL MCH 33 H (27-31) pg MCHC 32 (32-36) % Plt Count 75 L (150-400) K/uL Sodium 137 L (140-148) mmol/L Potassium 4.0 (3.6-5.2) mmol/L Chloride 102 (100-108) mmol/L Carbon Dioxide 25 (21-32) mmol/L Anion Gap 14.0 (5.0-14.0) mmol/L BUN 16 (7-18) mg/dL Creatinine 1.5 H (0.6-1.0) mg/dL Est Cr Clr Drug Dosing 38.78 mL/min Estimated GFR (MDRD) 35 L (>60) Glucose 96 (74-106) mg/dL Calcium 8.2 L (8.5-10.1) mg/dL Magnesium 2.2 (1.8-2.4) mg/dL Meds: Medications Generic Name Dose Route Start Last Admin Trade Name Freq PRN Reason Stop Dose Admin Sodium Chloride 1,000 mls @ 50 mls/hr 10/21/20 05:30 Normal Saline IV ASDIRECTED CASSIE Departure - Departure Time of Disposition: 05:40 Disposition: Still A Patient 30 Condition: Good Clinical Impression: Severe anemia, Thrombocytopenia, Chronic renal insufficiency, Donath- Landsteiner hemolytic anemia - Discharge Information *PRESCRIPTION DRUG MONITORING PROGRAM REVIEWED*: Not Applicable *COPY OF PRESCRIPTION DRUG MONITORING REPORT IN PATIENT MYLA: Not Applicable Referrals: Lisa Gerber MD [Primary Care Provider] - Forms: ED Department Discharge Sepsis Event Note (ED) - Evaluation Sepsis Screening Result: No Definite Risk - Focused Exam Vital Signs: Vital Signs Temp Pulse Resp BP Pulse Ox 10/21/20 04:24 97.4 F 93 16 136/51 L 93 L - My Orders Last 24 Hours: My Active Orders 10/21/20 05:12 RED BLOOD CELLS LP [BBK] Stat TYPE AND SCREEN [BBK] Stat 10/21/20 05:13 Blood Transfusion Reflex Set [OM.PC] Per Unit Routine 10/21/20 05:30 Sodium Chloride 0.9% @ 50 MLS/HR(1000ml) Sodium Chloride 0.9% [Normal Saline] 1,000 ml IV ASDIRECTED - Assessment/Plan Last 24 Hours: My Active Orders 10/21/20 05:12 RED BLOOD CELLS LP [BBK] Stat TYPE AND SCREEN [BBK] Stat 10/21/20 05:13 Blood Transfusion Reflex Set [OM.PC] Per Unit Routine 10/21/20 05:30 Sodium Chloride 0.9% @ 50 MLS/HR(1000ml) Sodium Chloride 0.9% [Normal Saline] 1,000 ml IV ASDIRECTED
[2020-10-21] MEDS ORDERED: Sodium Chloride 0.9% 1,000 ML IV SCH (05:30)
== END 2020-10-21 06:48 | disposition home or self-care (01) ==
LOC: JP.ED 04:07
DX: D58.9 Hereditary hemolytic anemia, unspecified (principal); N18.9 Chronic kidney disease, unspecified; G43.909 Migraine, unspecified, not intractable, without status migrainosus; Z79.899 Other long term (current) drug therapy
CPT/HCPCS: 36415; 80048; 83735; 85027; 99284; J7030

== ENCOUNTER 2020-10-27 06:04 | Emergency (ER) | payer MEDICARE, OTHER ==
[2020-10-27] MEDS ORDERED: Lactated Ringers 1,000 ML IV ONE (07:10)
[2020-10-27] MEDS ORDERED: HYDROmorphone 0.5 MG/0.5 ML Syringe IVPUSH ONE ×4 (07:11→11:39)
--- NOTE | 2020-10-27 07:16 | EDM.PDOC ---
ED HPI GENERAL MEDICAL PROBLEM - General Chief Complaint: General Stated Complaint: SOB Time Seen by Provider: 10/27/20 07:00 Source of Information: Reports: Patient, Family, Old Records, RN History Limitations: Reports: No Limitations - History of Present Illness INITIAL COMMENTS - FREE TEXT/NARRATIVE: 59 yo female with a complicated hx of hemolytic anemia with recent transfusions, a recent blood infection for which she just finished IV antibiotics just over a week ago, an ileostomy, etc. presents with diaphoresis, weakness, subjective light-headedness, and anorexia for a few days. She has not had a fever. She tried acetaminophen last night without relief. Is here with her now. She gets IV magnesium 3 times/week and a couple liters of LR daily IV. Onset: Gradual Onset Date: 10/23/20 Duration: Day(s):, Getting Worse Location: Reports: Generalized Quality: Reports: Ache Severity: Moderate Improves with: Reports: None Worsens with: Reports: Other (time) Context: Reports: Other (See HPI) Associated Symptoms: Reports: Diaphoresis, Fever/Chills (no fever, just chills), Loss of Appetite, Malaise, Nausea/Vomiting (no vomiting, intermittent nausea), Shortness of Breath, Weakness (generalized). Denies: Confusion, Chest Pain, Rash, Syncope Treatments SR. 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: Other (see below) (none) Left Abdomen Pain Score (Numeric/FACES): 7 - Related Data Allergies Allergy/AdvReac Type Severity Reaction Status Date / Time No Known Allergies Allergy Verified 10/27/20 06:24 Home Meds: Home Meds Acetaminophen [Acetaminophen Extra Strength] 1,000 mg PO Q4HR PRN 06/17/19 [History] Cyanocobalamin (Vitamin B-12) [Cyanocobalamin Injection] 1 ml IM ASDIRECTED 06/17/19 [History] Imipramine HCl 200 mg PO BEDTIME 06/17/19 [History] Nystatin [Nystatin Oint] 1 dose TOP BID PRN 06/17/19 [History] Ondansetron [Zofran ODT] 4 mg PO Q4HR PRN 06/17/19 [History] Pedi Multivit No.25/Folic Acid [Flintstones Multivit Chew Tab] 1 tab PO DAILY 06/17/19 [History] SUMAtriptan [Imitrex] 50 mg PO BTNUNITS PRN 06/17/19 [History] DULoxetine [Cymbalta] 60 mg PO DAILY cap 09/16/19 [Rx] Lactobacillus Rhamnosus GG [Culturelle] 1 cap PO BID #60 cap 09/16/19 [Rx] Melatonin 9 mg PO BEDTIME tablet 09/16/19 [Rx] Atropine/Diphenoxylate [Diphenoxylate-Atropine] 2 tab PO QID PRN 10/22/19 [History] Psyllium Seed (With Sugar) [Metamucil Fiber Wafer] 2 each PO TID #180 wafer 11/01/19 [Rx] Magnesium Sulfate/D5W [Magnesium 2 Gram/50 ml-D5w] 2 gm IV ASDIRECTED 01/19/20 [History] Loperamide [Imodium] 2 mg PO Q4H PRN 03/15/20 [History] LORazepam [Ativan] 0.5 mg PO Q6H PRN tablet 03/31/20 [Rx] tiZANidine [Zanaflex] 4 mg PO BID PRN tablet 03/31/20 [Rx] traMADol [Ultram] 2 tab PO Q6H PRN 06/09/20 [History] Folic Acid 1 mg PO DAILY 07/28/20 [History] Gabapentin [Neurontin] 900 mg PO TID 07/28/20 [History] Amylase/Lipase/Protease 10,000 [[address] 10,000 Unit] 2 each PO TID 10/21/20 [History] Magnesium Chloride [Magnesium] 64 mg PO Q12H 10/21/20 [History] Metoprolol Tartrate 25 mg PO BID 10/21/20 [History] Past Medical History HEENT History: Reports: Impaired Vision Cardiovascular History: Reports: Arrhythmia Gastrointestinal History: Reports: Bowel Obstruction, Chronic Diarrhea, Other (See Below) Other Gastrointestinal History: hernia, multiple bowel surgerys, short gut syndrome Genitourinary History: Reports: Renal Calculus 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: Neurological History: Reports: Migraines Psychiatric History: Reports: Anxiety Endocrine/Metabolic History: Reports: Hypomagnesemia Hematologic History: Reports: Anemia, B12 Deficiency, Blood Transfusion(s), Folic Acid, Iron Deficiency Other Hematologic History: magnesium deficiency Oncologic (Cancer) History: Reports: None - Infectious Disease History Infectious Disease History: Reports: Chicken Pox, Measles, Mumps - Past Surgical History Head Surgeries/Procedures: Reports: None HEENT Surgical History: Reports: Adenoidectomy, Tonsillectomy Cardiovascular Surgical History: Reports: Cardiac Ablation GI Surgical History: Reports: Appendectomy, Cholecystectomy, Colonoscopy, EGD, Other (See Below) Other GI Surgeries/Procedures: hernia, has ileostomy. ileostomy Female Surgical History: Reports: Hysterectomy, Other (See Below) Other Female Surgeries/Procedures: nephrectomy left Endocrine Surgical History: Reports: None Neurological Surgical History: Reports: None Dermatological Surgical History: Reports: None Social & Family History - Family History Family Medical History: No Pertinent Family History - Tobacco Use Tobacco Use Status *Q: Never Tobacco User - Caffeine Use Caffeine Use: Reports: Soda - Recreational Drug Use Recreational Drug Use: No ED ROS GENERAL - Review of Systems Review Of Systems: See Below Constitutional: Reports: Chills, Malaise, Weakness, Diaphoresis, Decreased Appetite HEENT: Reports: No Symptoms Respiratory: Reports: Shortness of Breath Cardiovascular: Reports: No Symptoms Endocrine: Reports: No Symptoms GI/Abdominal: Reports: Nausea. Denies: Black Stool, Diarrhea, Distension, Hematemesis, Hematochezia, Vomiting : Reports: No Symptoms Musculoskeletal: Reports: No Symptoms Skin: Reports: Diaphoresis Neurological: Reports: No Symptoms Psychiatric: Reports: No Symptoms ED EXAM, GENERAL - Physical Exam Exam: See Below Exam Limited By: No Limitations General Appearance: Alert, WD/WN, Anxious, Mild Distress Eye Exam: Bilateral Eye: Normal Inspection Ears: Normal External Exam, Normal Canal, Hearing Grossly Normal Ear Exam: Bilateral Ear: Auricle Normal, Canal Normal Nose: Normal Inspection, No Blood Throat/Mouth: Normal Inspection, Normal Lips, Normal Oropharynx, Normal Voice, No Airway Compromise Head: Atraumatic, Normocephalic Neck: Normal Inspection Respiratory/Chest: No Respiratory Distress, Lungs Clear, Normal Breath Sounds, No Accessory Muscle Use Cardiovascular: Regular Rate, Rhythm, No Edema, Tachycardia GI/Abdominal: Normal Bowel Sounds, Soft, No Distention, Tender (diffusely). No: Distended Back Exam: Normal Inspection. No: CVA Tenderness (R), CVA Tenderness (L) Extremities: Normal Inspection, Normal Range of Motion, Non-Tender, No Pedal Edema Neurological: Alert, Oriented, CN II-XII Intact, Normal Cognition, No Motor/Sensory Deficits Psychiatric: Normal Affect, Normal Mood Skin Exam: Warm, Dry, Intact, Normal Color, No Rash, Diaphoretic #1 Interpretation EKG Date: 10/27/20 Time: 08:00 Rhythm: NSR Rate (Beats/Min): 97 Curtice: Normal P-Wave: Present QRS: Normal ST-T: Normal QT: Normal Comparison: Change From Previous EKG (deep T wave inversions in multiple leads) Course - Vital Signs Text/Narrative:: Discussed case with Dr. Chairez @ [facility] @ [facility], accepts in transfer. Last Recorded V/S: Last Vital Signs Temp 36.4 C 10/27/20 06:17 Pulse 100 10/27/20 11:02 Resp 22 H 10/27/20 06:17 BP 153/87 H 10/27/20 11:02 Pulse Ox 100 10/27/20 11:02 - Orders/Labs/Meds Orders: Active Orders 24 hr Category Date Time Status CULTURE BLOOD [BC] Stat Lab 10/27/20 07:20 Received CULTURE BLOOD [BC] Stat Lab 10/27/20 08:30 Received EKG 12 Lead [EK] Routine Ther 10/27/20 07:57 Ordered Labs: Laboratory Tests 10/27/20 10/27/20 10/27/20 Range/Units 07:17 07:20 07:20 WBC 3.5 L (4.5-11.0) K/uL RBC 3.09 L (3.30-5.50) M/uL Hgb 10.0 L D (12.0-15.0) g/dL Hct 30.1 L (36.0-48.0) % MCV 97 (80-98) fL MCH 32 H (27-31) pg MCHC 33 (32-36) % Plt Count 161 (150-400) K/uL Sodium 135 L (140-148) mmol/L Potassium 4.0 (3.6-5.2) mmol/L Chloride 98 L (100-108) mmol/L Carbon Dioxide 20 L (21-32) mmol/L Anion Gap 21.0 H (5.0-14.0) mmol/L BUN 19 H (7-18) mg/dL Creatinine 1.6 H (0.6-1.0) mg/dL Est Cr Clr Drug Dosing 35.00 mL/min Estimated GFR (MDRD) 33 L (>60) Glucose 108 H (74-106) mg/dL Lactic Acid (0.4-2.0) mmol/L Calcium 9.4 (8.5-10.1) mg/dL Magnesium (1.8-2.4) mg/dL Total Bilirubin 2.1 H D (0.2-1.0) mg/dL AST 34 D (15-37) U/L ALT 16 (12-78) U/L Alkaline Phosphatase 132 H (46-116) U/L Troponin I 0.070 H* (0.000-0.056) ng/mL Total Protein 8.7 H (6.4-8.2) g/dL Albumin 3.5 (3.4-5.0) g/dL Globulin 5.2 H (2.3-3.5) g/dL Albumin/Globulin Ratio 0.7 L (1.2-2.2) Urine Color Yellow (YELLOW) Urine Appearance Clear (CLEAR) Urine pH >= 9.0 H (5.0-8.0) Ur Specific Ingram 1.020 (1.008-1.030) Urine Protein 100 H (NEGATIVE) mg/dL Urine Glucose (UA) Negative (NEGATIVE) mg/dL Urine Ketones 15 H (NEGATIVE) mg/dL Urine Occult Blood Moderate H (NEGATIVE) Urine Nitrite Negative (NEGATIVE) Urine Bilirubin Small H (NEGATIVE) Urine Urobilinogen 0.2 (0.2-1.0) EU/dL Ur Leukocyte Esterase Negative (NEGATIVE) Urine RBC 5-10 H (0-5) Urine WBC 0-5 (0-5) Ur Epithelial Cells Rare Amorphous Sediment Few Urine Bacteria Rare Urine Mucus Rare SARS CoV-2 RNA Rapid BJ 10/27/20 10/27/20 10/27/20 Range/Units 07:20 07:45 09:24 WBC (4.5-11.0) K/uL RBC (3.30-5.50) M/uL Hgb (12.0-15.0) g/dL Hct (36.0-48.0) % MCV (80-98) fL MCH (27-31) pg MCHC (32-36) % Plt Count (150-400) K/uL Sodium (140-148) mmol/L Potassium (3.6-5.2) mmol/L Chloride (100-108) mmol/L Carbon Dioxide (21-32) mmol/L Anion Gap (5.0-14.0) mmol/L BUN (7-18) mg/dL Creatinine (0.6-1.0) mg/dL Est Cr Clr Drug Dosing mL/min Estimated GFR (MDRD) (>60) Glucose (74-106) mg/dL Lactic Acid 2.6 H (0.4-2.0) mmol/L Calcium (8.5-10.1) mg/dL Magnesium 1.6 L D (1.8-2.4) mg/dL Total Bilirubin (0.2-1.0) mg/dL AST (15-37) U/L ALT (12-78) U/L Alkaline Phosphatase (46-116) U/L Troponin I (0.000-0.056) ng/mL Total Protein (6.4-8.2) g/dL Albumin (3.4-5.0) g/dL Globulin (2.3-3.5) g/dL Albumin/Globulin Ratio (1.2-2.2) Urine Color (YELLOW) Urine Appearance (CLEAR) Urine pH (5.0-8.0) Ur Specific Ingram (1.008-1.030) Urine Protein (NEGATIVE) mg/dL Urine Glucose (UA) (NEGATIVE) mg/dL Urine Ketones (NEGATIVE) mg/dL Urine Occult Blood (NEGATIVE) Urine Nitrite (NEGATIVE) Urine Bilirubin (NEGATIVE) Urine Urobilinogen (0.2-1.0) EU/dL Ur Leukocyte Esterase (NEGATIVE) Urine RBC (0-5) Urine WBC (0-5) Ur Epithelial Cells Amorphous Sediment Urine Bacteria Urine Mucus SARS CoV-2 RNA Rapid BJ Negative 10/27/20 Range/Units 11:04 WBC (4.5-11.0) K/uL RBC (3.30-5.50) M/uL Hgb (12.0-15.0) g/dL Hct (36.0-48.0) % MCV (80-98) fL MCH (27-31) pg MCHC (32-36) % Plt Count (150-400) K/uL Sodium (140-148) mmol/L Potassium (3.6-5.2) mmol/L Chloride (100-108) mmol/L Carbon Dioxide (21-32) mmol/L Anion Gap (5.0-14.0) mmol/L BUN (7-18) mg/dL Creatinine (0.6-1.0) mg/dL Est Cr Clr Drug Dosing mL/min Estimated GFR (MDRD) (>60) Glucose (74-106) mg/dL Lactic Acid 1.1 (0.4-2.0) mmol/L Calcium (8.5-10.1) mg/dL Magnesium (1.8-2.4) mg/dL Total Bilirubin (0.2-1.0) mg/dL AST (15-37) U/L ALT (12-78) U/L Alkaline Phosphatase (46-116) U/L Troponin I (0.000-0.056) ng/mL Total Protein (6.4-8.2) g/dL Albumin (3.4-5.0) g/dL Globulin (2.3-3.5) g/dL Albumin/Globulin Ratio (1.2-2.2) Urine Color (YELLOW) Urine Appearance (CLEAR) Urine pH (5.0-8.0) Ur Specific Ingram (1.008-1.030) Urine Protein (NEGATIVE) mg/dL Urine Glucose (UA) (NEGATIVE) mg/dL Urine Ketones (NEGATIVE) mg/dL Urine Occult Blood (NEGATIVE) Urine Nitrite (NEGATIVE) Urine Bilirubin (NEGATIVE) Urine Urobilinogen (0.2-1.0) EU/dL Ur Leukocyte Esterase (NEGATIVE) Urine RBC (0-5) Urine WBC (0-5) Ur Epithelial Cells Amorphous Sediment Urine Bacteria Urine Mucus SARS CoV-2 RNA Rapid BJ Meds: Medications Discontinued Medications Generic Name Dose Route Start Last Admin Trade Name Freq PRN Reason Stop Dose Admin Acetaminophen 1,000 mg 10/27/20 11:05 10/27/20 11:43 Acetaminophen 500 Mg Tab PO 10/27/20 11:06 Not Given ONETIME ONE Aspirin 324 mg 10/27/20 08:36 10/27/20 08:49 Aspirin 81 Mg Tab.Chew PO 10/27/20 08:37 324 mg ONETIME ONE Administration Aspirin Confirm 10/27/20 08:46 Aspirin 81 Mg Tab.Chew Administered 10/27/20 08:47 Dose 81 mg .ROUTE .STK-MED ONE Hydromorphone HCl 0.5 mg 10/27/20 07:11 10/27/20 07:35 Hydromorphone 0.5 Mg/0.5 Ml Syringe IVPUSH 10/27/20 07:12 0.5 mg ONETIME ONE Administration Hydromorphone HCl 0.5 mg 10/27/20 08:22 10/27/20 08:51 Hydromorphone 0.5 Mg/0.5 Ml Syringe IVPUSH 10/27/20 08:23 0.5 mg ONETIME ONE Administration Hydromorphone HCl 0.5 mg 10/27/20 08:43 10/27/20 09:01 Hydromorphone 0.5 Mg/0.5 Ml Syringe IVPUSH 10/27/20 08:44 0.5 mg ONETIME ONE Administration Hydromorphone HCl 0.5 mg 10/27/20 11:39 10/27/20 11:47 Hydromorphone 0.5 Mg/0.5 Ml Syringe IVPUSH 10/27/20 11:40 0.5 mg ONETIME ONE Administration Lactated Ringer's 1,000 mls @ 1,000 mls/hr 10/27/20 07:10 10/27/20 07:33 Ringers, Lactated IV 10/27/20 08:09 1,000 mls/hr BOLUS ONE Administration Magnesium Sulfate 2 gm/ Premix 50 mls @ 25 mls/hr 10/27/20 07:58 10/27/20 08:19 IV 10/27/20 09:57 25 mls/hr ONETIME ONE Administration Piperacillin Sod/Tazobactam 100 mls @ 100 mls/hr 10/27/20 08:18 10/27/20 08:54 Sod 4.5 gm/ Sodium Chloride IV 10/27/20 09:17 100 mls/hr ONETIME ONE Administration Vancomycin HCl 1.5 gm/ Sodium 250 mls @ 150 mls/hr 10/27/20 08:18 10/27/20 09:11 Chloride IV 10/27/20 09:57 150 mls/hr NOW STA Administration Lactated Ringer's 1,000 mls @ 500 mls/hr 10/27/20 08:45 10/27/20 09:38 Ringers, Lactated IV 500 mls/hr ASDIRECTED CASSIE Administration Lorazepam 1 mg 10/27/20 07:47 10/27/20 07:54 Lorazepam 2 Mg/Ml Sdv IVPUSH 10/27/20 07:48 1 mg ONETIME ONE Administration Lorazepam 1 mg 10/27/20 11:52 10/27/20 12:20 Lorazepam 2 Mg/Ml Sdv IVPUSH 10/27/20 11:53 1 mg ONETIME ONE Administration - Radiology Interpretation Free Text/Narrative:: CXR-RUL infiltrate Departure - Departure Time of Disposition: 11:10 Disposition: DC/Tfer to Acute Hospital 02 Condition: Poor Clinical Impression: Hypomagnesemia, Elevated troponin, Mild dehydration Sepsis Qualifiers: Sepsis type: sepsis due to unspecified organism Sepsis acute organ dysfunction status: without acute organ dysfunction Qualified Code(s): A41.9 - Sepsis, unsp ecified organism Pneumonia Qualifiers: Pneumonia type: due to unspecified organism Laterality: right Lung location: upper lobe of lung Qualified Code(s): J18.9 - Pneumonia, unspecified organism - Discharge Information *PRESCRIPTION DRUG MONITORING PROGRAM REVIEWED*: Not Applicable *COPY OF PRESCRIPTION DRUG MONITORING REPORT IN PATIENT MYLA: Not Applicable Referrals: PCP,None [Primary Care Provider] - Forms: ED Department Discharge Sepsis Event Note (ED) - Evaluation Sepsis Screening Result: No Definite Risk - Focused Exam Vital Signs: Vital Signs Temp Pulse Resp BP Pulse Ox 10/27/20 11:02 100 153/87 H 100 10/27/20 10:32 150/83 H 10/27/20 10:02 107 H 132/88 97 10/27/20 09:32 104 H 144/80 H 100 10/27/20 09:02 107 H 153/96 H 97 10/27/20 08:32 111 H 164/88 H 99 10/27/20 08:02 101 H 143/88 H 99 10/27/20 06:17 36.4 C 100 22 H 155/86 H 100 - My Orders Last 24 Hours: My Active Orders 10/27/20 07:20 CULTURE BLOOD [BC] Stat 10/27/20 07:57 EKG 12 Lead [EK] Routine 10/27/20 08:30 CULTURE BLOOD [BC] Stat - Assessment/Plan Last 24 Hours: My Active Orders 10/27/20 07:20 CULTURE BLOOD [BC] Stat 10/27/20 07:57 EKG 12 Lead [EK] Routine 10/27/20 08:30 CULTURE BLOOD [BC] Stat
[2020-10-27] MEDS ORDERED: LORazepam 2 MG/ML SDV IVPUSH ONE ×2 (07:47→11:52)
[2020-10-27] MEDS ORDERED: Magnesium Sulfate/Water 2 GM in Premix Bag 1 BAG IV ONE (07:58)
[2020-10-27] MEDS ORDERED: Piperacillin/Tazobactam 4.5 GM in Sodium Chloride 0.9% 100 ML IV ONE (08:18)
[2020-10-27] MEDS ORDERED: Aspirin 81 MG Tab.Chew PO ONE (08:36)
[2020-10-27] MEDS ORDERED: Lactated Ringers 1,000 ML IV SCH (08:45)
[2020-10-27] MEDS ORDERED: Aspirin 81 MG Tab.Chew ONE (08:46)
--- NOTE | 2020-10-27 09:18 | CR ---
CHEST: Portable 10/27/2020 at 8:53 AM CLINICAL HISTORY:SOB COMPARISON:CT chest 03/31/2020 FINDINGS: There is patchy infiltrate in the right suprahilar region. Patient has a left subclavian catheter in place. Tip is in the superior vena cava atrial junction. No effusion is seen. Impression: Right upper lobe pneumonic infiltrate
[2020-10-27] MEDS ORDERED: Acetaminophen 500 MG Tab PO ONE (11:05)
== END 2020-10-27 12:27 ==
LOC: JP.ED 06:04
DX: A41.9 Sepsis, unspecified organism (principal); J18.9 Pneumonia, unspecified organism; E86.0 Dehydration; E83.42 Hypomagnesemia; R79.89 Other specified abnormal findings of blood chemistry; Z79.899 Other long term (current) drug therapy
CPT/HCPCS: 36415; 71045; 80053; 81001; 83605; 83735; 84484; 85027; 87040; 87077; 87186; 93005; 96365; 96366; 96368; 96375; 96376; 99285; A9270; J1170; J2060; J2543; J3370; J3475; J7050; J7120; U0002

== ENCOUNTER 2020-12-15 10:48 | Emergency (ER) | payer MEDICARE, OTHER ==
[2020-12-15] MEDS ORDERED: Sodium Chloride 0.9% 10 ML Syringe FLUSH PRN (11:11)
[2020-12-15] MEDS ORDERED: HYDROmorphone 1 MG/ML Syringe IVPUSH ONE ×4 (11:11→14:55)
[2020-12-15] MEDS ORDERED: LORazepam 2 MG/ML SDV IVPUSH ONE (11:11)
--- NOTE | 2020-12-15 11:15 | EDM.PDOC ---
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 Does have splenomegaly. Recently completed course of antibiotics per hematology department has been off antibiotics for about 6 weeks. This particular bout of abdominal pain started for 5 days ago has progressively gotten worse., She is very anxious difficult to obtain history from her the majority of this is taken from her . Left Abdomen Pain Score (Numeric/FACES): 10 - Related Data Allergies Allergy/AdvReac Type Severity Reaction Status Date / Time No Known Allergies Allergy Verified 10/27/20 06:24 Home Meds: Home Meds Acetaminophen [Acetaminophen Extra Strength] 1,000 mg PO Q4HR PRN 06/17/19 [History] Cyanocobalamin (Vitamin B-12) [Cyanocobalamin Injection] 1 ml IM ASDIRECTED 06/17/19 [History] Imipramine HCl 200 mg PO BEDTIME 06/17/19 [History] Nystatin [Nystatin Oint] 1 dose TOP BID PRN 06/17/19 [History] Ondansetron [Zofran ODT] 4 mg PO Q4HR PRN 06/17/19 [History] Pedi Multivit No.25/Folic Acid [Flintstones Multivit Chew Tab] 1 tab PO DAILY 06/17/19 [History] SUMAtriptan [Imitrex] 50 mg PO BTNUNITS PRN 06/17/19 [History] DULoxetine [Cymbalta] 60 mg PO DAILY cap 09/16/19 [Rx] Lactobacillus Rhamnosus GG [Culturelle] 1 cap PO BID #60 cap 09/16/19 [Rx] Melatonin 9 mg PO BEDTIME tablet 09/16/19 [Rx] Atropine/Diphenoxylate [Diphenoxylate-Atropine] 2 tab PO QID PRN 10/22/19 [History] Psyllium Seed (With Sugar) [Metamucil Fiber Wafer] 2 each PO TID #180 wafer 11/01/19 [Rx] Magnesium Sulfate/D5W [Magnesium 2 Gram/50 ml-D5w] 2 gm IV ASDIRECTED 01/19/20 [History] Loperamide [Imodium] 2 mg PO Q4H PRN 03/15/20 [History] LORazepam [Ativan] 0.5 mg PO Q6H PRN tablet 03/31/20 [Rx] tiZANidine [Zanaflex] 4 mg PO BID PRN tablet 03/31/20 [Rx] traMADol [Ultram] 2 tab PO Q6H PRN 06/09/20 [History] Folic Acid 1 mg PO DAILY 07/28/20 [History] Gabapentin [Neurontin] 900 mg PO TID 07/28/20 [History] Amylase/Lipase/Protease 10,000 [Z[address]pep [address] 10,000 Unit] 2 each PO TID 10/21/20 [History] Magnesium Chloride [Magnesium] 64 mg PO Q12H 10/21/20 [History] Metoprolol Tartrate 25 mg PO BID 10/21/20 [History] HYDROmorphone [Dilaudid 1 MG/ML U/D] 1 mg PO Q4H PRN #10 ml 12/15/20 [Rx] Past Medical History HEENT History: Reports: Impaired Vision Cardiovascular History: Reports: Arrhythmia Gastrointestinal History: Reports: Bowel Obstruction, Chronic Diarrhea, Other (See Below) Other Gastrointestinal History: hernia, multiple bowel surgerys, short gut synd [place] Genitourinary History: Reports: Renal Calculus 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: Neurological History: Reports: Migraines Psychiatric History: Reports: Anxiety Endocrine/Metabolic History: Reports: Hypomagnesemia Hematologic History: Reports: Anemia, B12 Deficiency, Blood Transfusion(s), Folic Acid, Iron Deficiency Other Hematologic History: magnesium deficiency Oncologic (Cancer) History: Reports: None - Infectious Disease History Infectious Disease History: Reports: Chicken Pox, Measles, Mumps - Past Surgical History Head Surgeries/Procedures: Reports: None HEENT Surgical History: Reports: Adenoidectomy, Tonsillectomy Cardiovascular Surgical History: Reports: Cardiac Ablation GI Surgical History: Reports: Appendectomy, Cholecystectomy, Colonoscopy, EGD, Other (See Below) Other GI Surgeries/Procedures: hernia, has ileostomy. ileostomy Female Surgical History: Reports: Hysterectomy, Other (See Below) Other Female Surgeries/Procedures: nephrectomy left Endocrine Surgical History: Reports: None Neurological Surgical History: Reports: None Dermatological Surgical History: Reports: None Social & Family History - Family History Family Medical History: No Pertinent Family History - Tobacco Use Tobacco Use Status *Q: Never Tobacco User - Caffeine Use Caffeine Use: Reports: Coffee, Soda - Recreational Drug Use Recreational Drug Use: No ED ROS GENERAL - Review of Systems Review Of Systems: Unable To Obtain Reason Not Obtained: Anxiousness difficult to obtain review of systems due to mental s ED EXAM, GI/ABD - Physical Exam Exam: See Below Exam Limited By: Physical Impairment General Appearance: Alert, Anxious, Moderate Distress Respiratory/Chest: No Respiratory Distress, Lungs Clear, Normal Breath Sounds, No Accessory Muscle Use, Chest Non-Tender Cardiovascular: Regular Rate, Rhythm, No Murmur GI/Abdominal Exam: Soft, Tender (Left lower quadrant) Course - Vital Signs Last Recorded V/S: Last Vital Signs Temp Pulse 71 12/15/20 10:53 Resp 18 12/15/20 10:53 BP 142/78 H 12/15/20 10:53 Pulse Ox 99 12/15/20 10:53 - Orders/Labs/Meds Orders: Active Orders 24 hr Category Date Time Status Peripheral IV Care [RC] . DIRECTED Care 12/15/20 11:11 Active Sodium Chloride 0.9% [Saline Flush] Med 12/15/20 11:11 Active 10 ml FLUSH ASDIRECTED PRN Peripheral IV Insertion Adult [OM.PC] Urgent Oth 12/15/20 11:11 Ordered Medication Orders Sodium Chloride (Sodium Chloride 0.9% 10 Ml Syringe) 10 ml FLUSH ASDIRECTED PRN PRN Reason: Keep Vein Open Last Admin: 12/15/20 11:25 Dose: 10 ml Documented by: NEENA Labs: Laboratory Tests 12/15/20 12/15/20 12/15/20 Range/Units 11:26 11:26 11:26 WBC 4.0 L (4.5-11.0) K/uL RBC 2.31 L (3.30-5.50) M/uL Hgb 7.8 L D (12.0-15.0) g/dL Hct 22.9 L (36.0-48.0) % MCV 99 H (80-98) fL MCH 34 H (27-31) pg MCHC 34 (32-36) % Plt Count 142 L (150-400) K/uL Neut % (Auto) 69.7 H (36-66) % Lymph % (Auto) 23.3 L (24-44) % [place] % (Auto) 7.0 H (2-6) % Eos % (Auto) 0.0 L (2-4) % Baso % (Auto) 0.0 (0-1) % Sodium 133 L (140-148) mmol/L Potassium 4.2 (3.6-5.2) mmol/L Chloride 100 (100-108) mmol/L Carbon Dioxide 15 L (21-32) mmol/L Anion Gap 22.2 H (5.0-14.0) mmol/L BUN 13 (7-18) mg/dL Creatinine 1.6 H (0.6-1.0) mg/dL Est Cr Clr Drug Dosing 1.42 mL/min Estimated GFR (MDRD) 33 L (>60) Glucose 107 H (74-106) mg/dL Lactic Acid 3.2 H (0.4-2.0) mmol/L Calcium 9.2 (8.5-10.1) mg/dL Magnesium 1.6 L (1.8-2.4) mg/dL Total Bilirubin 0.8 D (0.2-1.0) mg/dL AST 23 (15-37) U/L ALT 20 (12-78) U/L Alkaline Phosphatase 106 (46-116) U/L Total Protein 8.0 (6.4-8.2) g/dL Albumin 3.4 (3.4-5.0) g/dL Globulin 4.6 H (2.3-3.5) g/dL Albumin/Globulin Ratio 0.7 L (1.2-2.2) Procalcitonin ng/mL 12/15/20 Range/Units 11:26 WBC (4.5-11.0) K/uL RBC (3.30-5.50) M/uL Hgb (12.0-15.0) g/dL Hct (36.0-48.0) % MCV (80-98) fL MCH (27-31) pg MCHC (32-36) % Plt Count (150-400) K/uL Neut % (Auto) (36-66) % Lymph % (Auto) (24-44) % [place] % (Auto) (2-6) % Eos % (Auto) (2-4) % Baso % (Auto) (0-1) % Sodium (140-148) mmol/L Potassium (3.6-5.2) mmol/L Chloride (100-108) mmol/L Carbon Dioxide (21-32) mmol/L Anion Gap (5.0-14.0) mmol/L BUN (7-18) mg/dL Creatinine (0.6-1.0) mg/dL Est Cr Clr Drug Dosing mL/min Estimated GFR (MDRD) (>60) Glucose (74-106) mg/dL Lactic Acid (0.4-2.0) mmol/L Calcium (8.5-10.1) mg/dL Magnesium (1.8-2.4) mg/dL Total Bilirubin (0.2-1.0) mg/dL AST (15-37) U/L ALT (12-78) U/L Alkaline Phosphatase (46-116) U/L Total Protein (6.4-8.2) g/dL Albumin (3.4-5.0) g/dL Globulin (2.3-3.5) g/dL Albumin/Globulin Ratio (1.2-2.2) Procalcitonin 0.14 ng/mL Meds: Medications Generic Name Dose Route Start Last Admin Trade Name Tierra PRN Reason Stop Dose Admin Sodium Chloride 10 ml 12/15/20 11:11 12/15/20 11:25 Sodium Chloride 0.9% 10 Ml Syringe FLUSH 10 ml ASDIRECTED PRN Administration Keep Vein Open Discontinued Medications Generic Name Dose Route Start Last Admin Trade Name Tierra PRN Reason Stop Dose Admin Hydromorphone HCl 1 mg 12/15/20 11:11 12/15/20 11:25 Hydromorphone 1 Mg/Ml Syringe IVPUSH 12/15/20 11:12 1 mg ONETIME ONE Administration Hydromorphone HCl 1 mg 12/15/20 12:21 12/15/20 12:49 Hydromorphone 1 Mg/Ml Syringe IVPUSH 12/15/20 12:22 1 mg ONETIME ONE Administration Hydromorphone HCl 1 mg 12/15/20 13:27 12/15/20 13:45 Hydromorphone 1 Mg/Ml Syringe IVPUSH 12/15/20 13:28 1 mg ONETIME ONE Administration Hydromorphone HCl 1 mg 12/15/20 14:55 Hydromorphone 1 Mg/Ml Syringe IVPUSH 12/15/20 14:56 ONETIME ONE Lorazepam 1 mg 12/15/20 11:11 12/15/20 11:25 Lorazepam 2 Mg/Ml Sdv IVPUSH 12/15/20 11:12 1 mg ONETIME ONE Administration Departure - Departure Time of Disposition: 15:03 Disposition: Home, Self-Care 01 Condition: Fair Clinical Impression: Ileus - Discharge Information Prescriptions: HYDROmorphone [Dilaudid 1 MG/ML U/D] 1 mg PO Q4H PRN #10 ml PRN Reason: Pain Instructions: Abdominal Pain, Adult, [id number] Referrals: Lisa Gerber MD [Primary Care Provider] - Forms: ED Department Discharge Additional Instructions: Please followup with your primary care provider in 3-5 days if not better, please call return to the emergency department with worsening of symptoms. Sepsis Event Note (ED) - Focused Exam Vital Signs: Vital Signs Pulse Resp BP Pulse Ox 12/15/20 10:53 71 18 142/78 H 99 - My Orders Last 24 Hours: My Active Orders 12/15/20 11:11 Peripheral IV Care [RC] . DIRECTED Sodium Chloride 0.9% [Saline Flush] 10 ml FLUSH ASDIRECTED PRN Peripheral IV Insertion Adult [OM.PC] Urgent - Assessment/Plan Last 24 Hours: My Active Orders 12/15/20 11:11 Peripheral IV Care [RC] . DIRECTED Sodium Chloride 0.9% [Saline Flush] 10 ml FLUSH ASDIRECTED PRN Peripheral IV Insertion Adult [OM.PC] Urgent Plan: Assessment Abdominal pain probably related to ileus Plan She is provided multiple milligrams of Dilaudid while in the emergency department prescription written for 1 mg per mill total of [address] [facility] pharmacy keep follow-up appoint with primary care This note was dictated using [employer] voice recognition software please call with any questions on syntax or grammar.
--- NOTE | 2020-12-15 12:53 | CR ---
Abdomen 1V Upright CLINICAL HISTORY: Pain FINDINGS: No free air is identified. There is multiple surgical clips and sutures. There are some scattered air-filled loops of small bowel was mild dilatation. There are a few scattered air-fluid levels. There is an ostomy site in the right lower quadrant. Moderate splenomegaly IMPRESSION: Small bowel distention. This may represent ileus versus early SBO Moderate splenomegaly Right lower quadrant ostomy site
--- NOTE | 2020-12-15 14:20 | CT ---
Abdomen Pelvis wo Cont CLINICAL HISTORY: Abdominal pain COMPARISON: 06/09/2020. TECHNIQUE: Axial tomographic images are obtained from the dome of the diaphragm to the pubic symphysis without IV contrast enhancement. No oral contrast was used. The dosage reduction and iterative reconstruction techniques employed. FINDINGS: The lung bases show some pleural parenchymal scarring. There are 3 nodular densities in the left lower lobe. The largest measures 7 mm. These are not seen on prior study.. The liver shows no mass or biliary dilatation. The gallbladder has been removed in the interval since last study. The spleen is enlarged. It may be slightly smaller than seen on prior study The pancreas shows no mass or inflammatory change. The adrenal glands are normal bilaterally. The left kidney has been removed. Right kidney shows no mass stones or hydronephrosis. The aorta has a normal contour. There is no suspicious retroperitoneal adenopathy. There has been extensive pelvic surgery and colectomy. There is a persistent stable fluid collection in the mid pelvis to the right of midline there is also a fluid collection at the midline posteriorly. These are both likely related to low AP resection. There is a right lower quadrant ostomy site. IMPRESSION: Previous colectomy with a right lower quadrant ostomy site. There are some fluid collections in the pelvis which are well demarcated and stable since June 2020 Previous cholecystectomy and left nephrectomy Moderate splenomegaly. This is stable or slightly decreased when compared to prior study. There are some small pulmonary nodules in the left lower lobe which are new since prior study. Metastatic nodules are not excluded. CT chest should be considered on a nonemergent basis.
== END 2020-12-15 15:40 | disposition home or self-care (01) ==
LOC: JP.ED 10:48
DX: K56.7 Ileus, unspecified (principal)
CPT/HCPCS: 36415; 74018; 74176; 80053; 83605; 83735; 84145; 85025; 96374; 96375; 96376; 99284; J1170; J2060

== ENCOUNTER 2020-12-16 02:27 | Emergency (ER) | payer MEDICARE, OTHER ==
[2020-12-16] MEDS ORDERED: LORazepam 2 MG/ML SDV IVPUSH ONE (02:45)
[2020-12-16] MEDS ORDERED: HYDROmorphone 1 MG/ML Syringe IVPUSH ONE (02:45)
--- NOTE | 2020-12-16 02:52 | EDM.PDOC ---
ED HPI GENERAL MEDICAL PROBLEM - General Chief Complaint: Abdominal Pain Stated Complaint: RIGHT SIDE PAIN Time Seen by Provider: 12/16/20 02:30 Source of Information: Reports: Patient, Family History Limitations: Reports: No Limitations - History of Present Illness INITIAL COMMENTS - FREE TEXT/NARRATIVE: 60-year-old female with chronic abdominal pain that has been worked up ex tensively at [facility] and [facility], she takes a large amount of narcotic medications for pain control. She was in earlier today, no acute findings were found and she was given 10 mL of Dilaudid use for pain control for the next 24 to 48 hours. She was unable to fill this, began to develop more pain tonight and comes in now hyperventilating and significant discomfort. This is her typical presentation. No fevers or chills. No nausea or vomiting. Onset: Unknown/Unsure Location: Reports: Abdomen Associated Symptoms: Reports: Other (Her arm was sore earlier tonight from laying on it wrong but that is resolved) right lower quadrant Pain Score (Numeric/FACES): 9 - Related Data Allergies Allergy/AdvReac Type Severity Reaction Status Date / Time No Known Allergies Allergy Verified 12/16/20 13:56 Home Meds: Home Meds Acetaminophen [Acetaminophen Extra Strength] 1,000 mg PO Q4HR PRN 06/17/19 [History] Cyanocobalamin (Vitamin B-12) [Cyanocobalamin Injection] 1 ml IM ASDIRECTED 06/17/19 [History] Imipramine HCl 200 mg PO BEDTIME 06/17/19 [History] Nystatin [Nystatin Oint] 1 dose TOP BID PRN 06/17/19 [History] Ondansetron [Zofran ODT] 4 mg PO Q4HR PRN 06/17/19 [History] Pedi Multivit No.25/Folic Acid [Flintstones Multivit Chew Tab] 1 tab PO DAILY 06/17/19 [History] SUMAtriptan [Imitrex] 50 mg PO BTNUNITS PRN 06/17/19 [History] DULoxetine [Cymbalta] 60 mg PO DAILY cap 09/16/19 [Rx] Lactobacillus Rhamnosus GG [Culturelle] 1 cap PO BID #60 cap 09/16/19 [Rx] Melatonin 9 mg PO BEDTIME tablet 09/16/19 [Rx] Atropine/Diphenoxylate [Diphenoxylate-Atropine] 2 tab PO QID PRN 10/22/19 [History] Psyllium Seed (With Sugar) [Metamucil Fiber Wafer] 2 each PO TID #180 wafer 11/01/19 [Rx] Magnesium Sulfate/D5W [Magnesium 2 Gram/50 ml-D5w] 2 gm IV ASDIRECTED 01/19/20 [History] Loperamide [Imodium] 2 mg PO Q4H PRN 03/15/20 [History] LORazepam [Ativan] 0.5 mg PO Q6H PRN tablet 03/31/20 [Rx] tiZANidine [Zanaflex] 4 mg PO BID PRN tablet 03/31/20 [Rx] traMADol [Ultram] 2 tab PO Q6H PRN 06/09/20 [History] Folic Acid 1 mg PO DAILY 07/28/20 [History] Gabapentin [Neurontin] 900 mg PO TID 07/28/20 [History] Amylase/Lipase/Protease 10,000 [Zenpep DR 10,000 Unit] 2 each PO TID 10/21/20 [History] Magnesium Chloride [Magnesium] 64 mg PO Q12H 10/21/20 [History] Metoprolol Tartrate 25 mg PO BID 10/21/20 [History] HYDROmorphone [Dilaudid 1 MG/ML U/D] 1 mg PO Q4H PRN #10 ml 12/15/20 [Rx] Past Medical History HEENT History: Reports: Impaired Vision Cardiovascular History: Reports: Arrhythmia Gastrointestinal History: Reports: Bowel Obstruction, Chronic Diarrhea, Other (See Below) Other Gastrointestinal History: hernia, multiple bowel surgerys, short gut syndrome Genitourinary History: Reports: Renal Calculus 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: Neurological History: Reports: Migraines Psychiatric History: Reports: Anxiety Endocrine/Metabolic History: Reports: Hypomagnesemia Hematologic History: Reports: Anemia, B12 Deficiency, Blood Transfusion(s), Folic Acid, Iron Deficiency Other Hematologic History: magnesium deficiency Oncologic (Cancer) History: Reports: None - Infectious Disease History Infectious Disease History: Reports: Chicken Pox, Measles, Mumps - Past Surgical History Head Surgeries/Procedures: Reports: None HEENT Surgical History: Reports: Adenoidectomy, Tonsillectomy Cardiovascular Surgical History: Reports: Cardiac Ablation GI Surgical History: Reports: Appendectomy, Cholecystectomy, Colonoscopy, EGD, Other (See Below) Other GI Surgeries/Procedures: hernia, has ileostomy. ileostomy Female Surgical History: Reports: Hysterectomy, Other (See Below) Other Female Surgeries/Procedures: nephrectomy left Endocrine Surgical History: Reports: None Neurological Surgical History: Reports: None Dermatological Surgical History: Reports: None Social & Family History - Family History Family Medical History: No Pertinent Family History - Caffeine Use Caffeine Use: Reports: Coffee, Soda ED ROS GENERAL - Review of Systems Review Of Systems: See Below Constitutional: Reports: Malaise. Denies: Fever, Chills HEENT: Reports: No Symptoms Respiratory: Denies: Shortness of Breath Cardiovascular: Denies: Chest Pain GI/Abdominal: Reports: Abdominal Pain. Denies: Vomiting Musculoskeletal: Reports: Arm Pain Neurological: Denies: Headache Psychiatric: Reports: Anxiety ED EXAM, GI/ABD - Physical Exam Exam: See Below Exam Limited By: Physical Impairment (Patient is extremely anxious and not very cooperative with the exam) General Appearance: Alert, Anxious Eyes: Bilateral: Normal Appearance (Somewhat pale, no jaundice) Head: Atraumatic Respiratory/Chest: No Respiratory Distress, Lungs Clear Cardiovascular: Regular Rate, Rhythm GI/Abdominal Exam: Other (Any palpation of the abdomen causes her to writhe in pain) Neurological: Alert Psychiatric: Anxious Skin Exam: Warm, Dry Course - Vital Signs Last Recorded V/S: Last Vital Signs Temp 97.2 F 12/16/20 02:38 Pulse 100 12/16/20 02:38 Resp 32 H 12/16/20 02:38 BP 159/64 H 12/16/20 02:38 Pulse Ox 100 12/16/20 02:38 - Orders/Labs/Meds Meds: Medications Discontinued Medications Generic Name Dose Route Start Last Admin Trade Name Freq PRN Reason Stop Dose Admin Heparin Sodium (Porcine) 500 units 12/16/20 02:45 12/16/20 02:55 Heparin Sodium 100 Units/Ml 5 Ml Syringe FLUSH 500 units ASDIRECTED PRN Administration Pain (severe 7-10) Hydromorphone HCl 2 mg 12/16/20 02:45 12/16/20 02:54 Hydromorphone 1 Mg/Ml Syringe IVPUSH 12/16/20 02:46 2 mg ONETIME ONE Administration Lorazepam 1 mg 12/16/20 02:45 12/16/20 02:54 Lorazepam 2 Mg/Ml Sdv IVPUSH 12/16/20 02:46 1 mg ONETIME ONE Administration Lorazepam 1 mg 12/16/20 03:33 12/16/20 03:38 Lorazepam 1 Mg Tab PO 12/16/20 03:34 1 mg ONETIME ONE Administration - Re-Assessments/Exams Free Text/Narrative Re-Assessment/Exam: 12/16/20 02:50 Patient was given 2 mg of Dilaudid and 1 mg of IV Ativan. This should give her relief from the withdrawal until she can fill the rest of her medication in the morning. 12/16/20 03:34 Patient did calm down for a while but started getting anxious again and wanted to be transferred to [place] for more medication. I explained to her that she had a complete work-up today including CT scan, there is no reason for her to be transferred to [place] but they were welcome to go to [place] on their own if they wanted. She began to hyperventilate again so was given 1 mg of oral Ativan and her is going to take her home and have her recheck tomorrow if not improving. 12/16/20 04:16 A FIELD SALES EXECUTIVE search was done on the patient at discharge, it appears she has been prescribed upwards of 450 mg of Dilaudid over the past month and that does not include any pain control given in the hospital, these are just prescriptions filled. Departure - Departure Time of Disposition: 03:43 Disposition: Home, Self-Care 01 Clinical Impression: Chronic abdominal pain, Hyperventilation syndrome, Narcotic dependence - Discharge Information Instructions: Abdominal Pain, Adult, [id number] Referrals: PCP,None [Primary Care Provider] - Forms: ED Department Discharge Care Plan Goals: Fill the pain medication in the morning and follow-up with your primary physician in the next 2 or 3 days if not improving. Sepsis Event Note (ED) - Evaluation Sepsis Screening Result: No Definite Risk
[2020-12-16] MEDS ORDERED: LORazepam 1 MG Tab PO ONE (03:33)
== END 2020-12-16 03:45 | disposition home or self-care (01) ==
LOC: JP.ED 02:27
DX: R10.9 Unspecified abdominal pain (principal); G89.29 Other chronic pain; Z79.899 Other long term (current) drug therapy
CPT/HCPCS: 96374; 96375; 99283-25; A9270-GY; J1170; J1642; J2060

== ENCOUNTER 2020-12-16 13:13 | Emergency (ER) | payer MEDICARE, OTHER ==
[2020-12-16] MEDS ORDERED: LORazepam 2 MG/ML SDV IVPUSH ONE (14:06)
[2020-12-16] MEDS ORDERED: fentaNYL 100 MCG/2 ML SDV IVPUSH ONE (14:06)
[2020-12-16] MEDS ORDERED: Ketamine 500 MG/5 ML MDV IV ONE ×4 (14:06→18:49)
--- NOTE | 2020-12-16 14:20 | EDM.PDOC ---
ED HPI GENERAL MEDICAL PROBLEM - General Chief Complaint: Abdominal Pain Stated Complaint: LOWER L ABDOMINAL PAIN Time Seen by Provider: 12/16/20 14:00 Source of Information: Reports: Patient, Family, Old Records, RN Notes Reviewed History Limitations: Reports: Physical Impairment - History of Present Illness INITIAL COMMENTS - FREE TEXT/NARRATIVE: 60-year-old female presents emergency department today complaint about chronic pain control she has a known history of hemolytic anemia with cold agglutinin however over the last month or so she has had problems with abdominal pain has rapidly accelerated her use of Dilaudid review of old records and prescription drug monitoring program revealed 450 mg Dilaudid in the last 30 days. Was evaluated in the emergency department last night extensive work-up clinic CT scan blood work was unrevealing was given 10 mg grams of Dilaudid for pain control and hoarseness medications not failed return to the emergency department for pain control at 2 in the morning. It went home and then medication was filled this morning did receive about 2 mg of Dilaudid this morning she feels her pain is out of control she is very anxious to the point of being psychotic with her behavior. Typical for narcotic abuse and dependence with withdrawal. Abdominal Pain Score (Numeric/FACES): 10 - Related Data Allergies Allergy/AdvReac Type Severity Reaction Status Date / Time No Known Allergies Allergy Verified 12/16/20 13:56 Home Meds: Home Meds Acetaminophen [Acetaminophen Extra Strength] 1,000 mg PO Q4HR PRN 06/17/19 [History] Cyanocobalamin (Vitamin B-12) [Cyanocobalamin Injection] 1 ml IM ASDIRECTED 06/17/19 [History] Imipramine HCl 200 mg PO BEDTIME 06/17/19 [History] Nystatin [Nystatin Oint] 1 dose TOP BID PRN 06/17/19 [History] Ondansetron [Zofran ODT] 4 mg PO Q4HR PRN 06/17/19 [History] Pedi Multivit No.25/Folic Acid [Flintstones Multivit Chew Tab] 1 tab PO DAILY 06/17/19 [History] SUMAtriptan [Imitrex] 50 mg PO BTNUNITS PRN 06/17/19 [History] DULoxetine [Cymbalta] 60 mg PO DAILY cap 09/16/19 [Rx] Lactobacillus Rhamnosus GG [Culturelle] 1 cap PO BID #60 cap 09/16/19 [Rx] Melatonin 9 mg PO BEDTIME tablet 09/16/19 [Rx] Atropine/Diphenoxylate [Diphenoxylate-Atropine] 2 tab PO QID PRN 10/22/19 [History] Psyllium Seed (With Sugar) [Metamucil Fiber Wafer] 2 each PO TID #180 wafer 11/01/19 [Rx] Magnesium Sulfate/D5W [Magnesium 2 Gram/50 ml-D5w] 2 gm IV ASDIRECTED 01/19/20 [History] Loperamide [Imodium] 2 mg PO Q4H PRN 03/15/20 [History] LORazepam [Ativan] 0.5 mg PO Q6H PRN tablet 03/31/20 [Rx] tiZANidine [Zanaflex] 4 mg PO BID PRN tablet 03/31/20 [Rx] traMADol [Ultram] 2 tab PO Q6H PRN 06/09/20 [History] Folic Acid 1 mg PO DAILY 07/28/20 [History] Gabapentin [Neurontin] 900 mg PO TID 07/28/20 [History] Amylase/Lipase/Protease 10,[address] [[address] 10,000 Unit] 2 each PO TID 10/21/20 [History] Magnesium Chloride [Magnesium] 64 mg PO Q12H 10/21/20 [History] Metoprolol Tartrate 25 mg PO BID 10/21/20 [History] HYDROmorphone [Dilaudid 1 MG/ML U/D] 1 mg PO Q4H PRN #10 ml 12/15/20 [Rx] Past Medical History HEENT History: Reports: Impaired Vision Cardiovascular History: Reports: Arrhythmia Gastrointestinal History: Reports: Bowel Obstruction, Chronic Diarrhea, Other (See Below) Other Gastrointestinal History: hernia, multiple bowel surgerys, short gut syndrome Genitourinary History: Reports: Renal Calculus 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: Neurological History: Reports: Migraines Psychiatric History: Reports: Anxiety Endocrine/Metabolic History: Reports: Hypomagnesemia Hematologic History: Reports: Anemia, B12 Deficiency, Blood Transfusion(s), Folic Acid, Iron Deficiency Other Hematologic History: magnesium deficiency Oncologic (Cancer) History: Reports: None - Infectious Disease History Infectious Disease History: Reports: Chicken Pox, Measles, Mumps - Past Surgical History Head Surgeries/Procedures: Reports: None HEENT Surgical History: Reports: Adenoidectomy, Tonsillectomy Cardiovascular Surgical History: Reports: Cardiac Ablation GI Surgical History: Reports: Appendectomy, Cholecystectomy, Colonoscopy, EGD, Other (See Below) Other GI Surgeries/Procedures: hernia, has ileostomy. ileostomy Female Surgical History: Reports: Hysterectomy, Other (See Below) Other Female Surgeries/Procedures: nephrectomy left Endocrine Surgical History: Reports: None Neurological Surgical History: Reports: None Dermatological Surgical History: Reports: None Social & Family History - Family History Family Medical History: No Pertinent Family History - Tobacco Use Tobacco Use Status *Q: Never Tobacco User - Caffeine Use Caffeine Use: Reports: Coffee, Soda ED ROS GENERAL - Review of Systems Review Of Systems: See Below Constitutional: Reports: No Symptoms Respiratory: Reports: No Symptoms Cardiovascular: Reports: No Symptoms GI/Abdominal: Reports: Abdominal Pain ED EXAM, GENERAL - Physical Exam Exam: See Below Exam Limited By: Physical Impairment General Appearance: Anxious, Severe Distress Throat/Mouth: No Airway Compromise Respiratory/Chest: No Respiratory Distress Psychiatric: Anxious, Tearful, Other (Histrionic) Course - Vital Signs Last Recorded V/S: Last Vital Signs Temp 98.0 F 12/16/20 13:51 Pulse 94 12/16/20 17:52 Resp 26 H 12/16/20 13:51 BP 185/104 H 12/16/20 17:52 Pulse Ox 99 12/16/20 17:52 - Orders/Labs/Meds Meds: Medications Discontinued Medications Generic Name Dose Route Start Last Admin Trade Name Freq PRN Reason Stop Dose Admin Buprenorphine/Naloxone 2 tab 12/16/20 16:49 12/16/20 16:59 Buprenorphine/Naloxone 2-0.5 Mg Tab.[facility] 12/16/20 16:50 2 tab ONETIME ONE Administration Buprenorphine/Naloxone 1 tab 12/16/20 18:00 12/16/20 17:44 Buprenorphine/Naloxone 8-2 Mg Tab.[facility] 12/16/20 18:01 1 tab ONETIME ONE Administration Buprenorphine/Naloxone 2 tab 12/16/20 18:49 Buprenorphine/Naloxone 2-0.5 Mg Tab.[facility] 12/16/20 18:50 ONETIME ONE Fentanyl 50 mcg 12/16/20 14:06 12/16/20 14:22 Fentanyl 100 Mcg/2 Ml Sdv IVPUSH 12/16/20 14:07 50 mcg ONETIME ONE Administration Ketamine HCl 20 mg 12/16/20 14:45 12/16/20 14:33 Ketamine 500 Mg/5 Ml Mdv IV 12/16/20 14:46 20 mg ONETIME ONE Administration Ketamine HCl 20 mg 12/16/20 18:49 Ketamine 500 Mg/5 Ml Mdv IV 12/16/20 18:50 ONETIME ONE Lorazepam 1 mg 12/16/20 14:06 12/16/20 14:21 Lorazepam 2 Mg/Ml Sdv IVPUSH 12/16/20 14:07 1 mg ONETIME ONE Administration Midazolam HCl 2 mg 12/16/20 17:32 12/16/20 17:47 Midazolam 1 Mg/Ml 2 Ml Sdv IVPUSH 12/16/20 17:33 2 mg ONETIME ONE Administration Departure - Departure Time of Disposition: 18:52 Disposition: Home, Self-Care 01 Condition: Poor Clinical Impression: Narcotic dependence - Discharge Information Instructions: Warning Signs of Opioid Misuse Referrals: PCP,None [Primary Care Provider] - Forms: ED Department Discharge Additional Instructions: Please call the [facility] in the morning for an appointment time with Cassie Guevara she will continue the prescribing of the Suboxone which will help your pain. Sepsis Event Note (ED) - Focused Exam Vital Signs: Vital Signs Temp Pulse Resp BP Pulse Ox 12/16/20 17:52 94 185/104 H 99 12/16/20 17:07 100 173/113 H 100 12/16/20 16:43 98 187/106 H 100 12/16/20 15:55 98 168/102 H 100 12/16/20 13:51 98.0 F 100 26 H 193/99 H 100 - Assessment/Plan Plan: Assessment Acuity = acute Site and laterality = narcotic abuse and dependence with withdrawal Etiology = Dilaudid Manifestations = none Location of injury = Home Lab values = none Plan Did consult the Suboxone providers at the [facility] recommend starting Suboxone she has received a total of 12 mg was able to get her pain under control she was resting comfortably in the bed did provide Ativan 1 mg p.o. 3 times daily as needed for home consult has been set up for the Suboxone clinic which she will contact tomorrow for an appointment time, provider is aware This note was dictated using [employer] voice recognition software please call with any questions on syntax or grammar.
[2020-12-16] MEDS ORDERED: Buprenorphine/Naloxone 2-0.5 MG Tab.SL SL ONE ×2 (16:49→18:49)
[2020-12-16] MEDS ORDERED: Midazolam 1 MG/ML 2 ML SDV IVPUSH ONE (17:32)
[2020-12-16] MEDS ORDERED: Buprenorphine/Naloxone 8-2 MG Tab.SL SL ONE (18:00)
== END 2020-12-16 19:26 | disposition home or self-care (01) ==
LOC: JP.ED 13:13
DX: F11.20 Opioid dependence, uncomplicated (principal); F41.9 Anxiety disorder, unspecified; Z79.899 Other long term (current) drug therapy
CPT/HCPCS: 96374; 96375; 96376; 99283; A9270; J0574; J1170; J1642; J2060; J2250; J3010

== ENCOUNTER 2021-02-11 09:24 | Emergency (ER) | payer MEDICARE, OTHER | END 2021-02-11 11:19 | disposition left against medical advice (07) | LOC: JP.ED 09:24 | DX: Z53.21 Procedure and treatment not carried out due to patient leaving prior to being seen by health care provider (principal) ==

== ENCOUNTER 2021-02-15 13:13 | Emergency (ER) | payer MEDICARE, OTHER ==
[2021-02-15] MEDS ORDERED: Metoprolol Tartrate 25 MG Tab PO ONE (15:15)
[2021-02-15] MEDS ORDERED: Ondansetron 4 MG/2 ML SDV IVPUSH ONE (15:35)
[2021-02-15] MEDS ORDERED: Prochlorperazine 10 MG/2 ML SDV IVPUSH ONE (15:49)
--- NOTE | 2021-02-15 15:56 | EDM.PDOC ---
<Damir Glynn Satya - Last Filed: 02/15/21 19:34> ED HPI GENERAL MEDICAL PROBLEM - General Chief Complaint: Abdominal Pain Stated Complaint: ABDOMINAL PAIN,HIGH BLOOD PRESSURE, Time Seen by Provider: 02/15/21 15:35 Source of Information: Reports: Family, Old Records, Provider, RN. 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 She gets LR 1000 ml IV twice daily and IV magnesium. Sx's for about a week. Was seen here early on in the course, but left before she had a work up due to long wait and a busy ER. She has not improved since then and was seen in the clinic today and routine labs looked pretty good, but she was more uncomfortable and not interacting with the clinic provider like normal so was sent to the ER. Her pain that she has been having for the past week is like a flair of her Inflammatory bowel dz she has had in the past. Pain is worse with eating or drinking and is associated with nausea. No fever. Has been having bad GRIJALVA's lately. Onset: Gradual Duration: Week(s): (1), Constant Location: Reports: Abdomen Quality: Reports: Ache Severity: Severe Improves with: Reports: None Worsens with: Reports: Eating Context: Reports: Other (See HPI) Associated Symptoms: Reports: Loss of Appetite, Nausea/Vomiting (no vomiting), Weakness. Denies: Fever/Chills Treatments IN STORE REPRESENTATIVE: Reports: Other (see below) (none) - Related Data Allergies Allergy/AdvReac Type Severity Reaction Status Date / Time No Known Allergies Allergy Verified 12/16/20 13:56 Home Meds: Home Meds Acetaminophen [Acetaminophen Extra Strength] 1,000 mg PO Q4HR PRN 06/17/19 [History] Cyanocobalamin (Vitamin B-12) [Cyanocobalamin Injection] 1 ml IM ASDIRECTED 06/17/19 [History] Imipramine HCl 200 mg PO BEDTIME 06/17/19 [History] Nystatin [Nystatin Oint] 1 dose TOP BID PRN 06/17/19 [History] Ondansetron [Zofran ODT] 4 mg PO Q4HR PRN 06/17/19 [History] SUMAtriptan [Imitrex] 50 mg PO BTNUNITS PRN 06/17/19 [History] DULoxetine [Cymbalta] 60 mg PO DAILY cap 09/16/19 [Rx] Lactobacillus Rhamnosus GG [Culturelle] 1 cap PO BID #60 cap 09/16/19 [Rx] Melatonin 9 mg PO BEDTIME tablet 09/16/19 [Rx] Atropine/Diphenoxylate [Diphenoxylate-Atropine] 2 tab PO QID PRN 10/22/19 [History] Psyllium Seed (With Sugar) [Metamucil Fiber Wafer] 2 each PO TID #180 wafer 0 11/01/19 [Rx] Magnesium Sulfate/D5W [Magnesium 2 Gram/50 ml-D5w] 2 gm IV ASDIRECTED 01/19/20 [History] Loperamide [Imodium] 2 mg PO Q4H PRN 03/15/20 [History] LORazepam [Ativan] 0.5 mg PO Q6H PRN tablet 03/31/20 [Rx] tiZANidine [Zanaflex] 4 mg PO BID PRN tablet 03/31/20 [Rx] Folic Acid 1 mg PO DAILY 07/28/20 [History] Metoprolol Tartrate 25 mg PO BID 10/21/20 [History] Buprenorphine HCl/Naloxone HCl [Buprenor-Nalox 12-3 mg Sl Film] 1 each SL DAILY 02/15/21 [History] Gabapentin [Neurontin] 600 mg PO TID 02/15/21 [History] Lactobacillus Rhamnosus GG [Culturelle] 1 cap PO BID 02/15/21 [History] Multivit with Iron,Minerals [Flintstones Complete] 1 each PO DAILY 02/15/21 [History] OLANZapine [ZyPREXA] 2.5 mg PO DAILY 02/15/21 [History] Past Medical History HEENT History: Reports: Impaired Vision Cardiovascular History: Reports: Arrhythmia Gastrointestinal History: Reports: Bowel Obstruction, Chronic Diarrhea, Other (See Below) Other Gastrointestinal History: hernia, multiple bowel surgerys, short gut syndrome Genitourinary History: Reports: Renal Calculus 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: Neurological History: Reports: Migraines Psychiatric History: Reports: Anxiety Endocrine/Metabolic History: Reports: Hypomagnesemia Hematologic History: Reports: Anemia, B12 Deficiency, Blood Transfusion(s), Folic Acid, Iron Deficiency Other Hematologic History: magnesium deficiency Oncologic (Cancer) History: Reports: None - Infectious Disease History Infectious Disease History: Reports: Chicken Pox, Measles, Mumps - Past Surgical History Head Surgeries/Procedures: Reports: None HEENT Surgical History: Reports: Adenoidectomy, Tonsillectomy Cardiovascular Surgical History: Reports: Cardiac Ablation GI Surgical History: Reports: Appendectomy, Cholecystectomy, Colonoscopy, EGD, Other (See Below) Other GI Surgeries/Procedures: hernia, has ileostomy. ileostomy Female Surgical History: Reports: Hysterectomy, Other (See Below) Other Female Surgeries/Procedures: nephrectomy left Endocrine Surgical History: Reports: None Neurological Surgical History: Reports: None Dermatological Surgical History: Reports: None Social & Family History - Family History Family Medical History: No Pertinent Family History - Tobacco Use Tobacco Use Status *Q: Never Tobacco User - Caffeine Use Caffeine Use: Reports: Coffee, Soda - Recreational Drug Use Recreational Drug Use: No ED ROS GENERAL - Review of Systems Review Of Systems: See Below Constitutional: Reports: Malaise, Weakness, Decreased Appetite HEENT: Reports: No Symptoms Respiratory: Reports: No Symptoms Cardiovascular: Reports: No Symptoms Endocrine: Reports: No Symptoms GI/Abdominal: Reports: Abdominal Pain, Decreased Appetite, Nausea. Denies: Black Stool, Bloody Stool, Hematemesis, Vomiting : Reports: No Symptoms Musculoskeletal: Reports: No Symptoms Skin: Reports: No Symptoms Neurological: Reports: No Symptoms Psychiatric: Reports: Agitation (when disturbed) ED EXAM, GI/ABD - Physical Exam Exam: See Below Exam Limited By: No Limitations General Appearance: WD/WN, No Apparent Distress, Lethargic Eyes: Bilateral: Normal Appearance Ears: Normal External Exam, Normal Canal, Hearing Grossly Normal, Normal TMs Nose: Normal Inspection, No Blood Throat/Mouth: Normal Inspection, Normal Lips, Normal Oropharynx, Normal Voice, No Airway Compromise Head: Atraumatic, Normocephalic Neck: Normal Inspection Respiratory/Chest: No Respiratory Distress, Lungs Clear, Normal Breath Sounds, No Accessory Muscle Use Cardiovascular: Regular Rate, Rhythm, No Edema GI/Abdominal Exam: Soft, Tender (epigastrium is worse, tenderness is diffuse). No: Non-Tender, Distended Back Exam: Normal Inspection. No: CVA Tenderness (R), CVA Tenderness (L) Extremities: Normal Inspection, Normal Range of Motion, Non-Tender, No Pedal Edema Neurological: CN II-XII Intact, No Motor/Sensory Deficits, Inattentive, Slow to Respond. No: Alert, Oriented, Normal Cognition Psychiatric: Flat Affect, Other (agitated when disturbed) Skin Exam: Warm, Dry, Intact, Normal Color, No Rash Course - Vital Signs Text/Narrative:: [facility] called @ 1830h for placement. It is likely we are going to find placement tonight anywhere in [place]. - Radiology Interpretation Free Text/Narrative:: CT abd/pelvis with IV contrast-nothing acute Head CT scan-IMPRESSION: There are 2 small parenchymal hemorrhages in the right parietal and temporal lobes respectively with a small amount of subarachnoid hemorrhage adjacent to the right parietal lesion. Remainder of the exam is unremarkable. Results discussed with Dr. Glynn at 1840 hours. Please note that all CT scans at this facility use dose modulation, iterative reconstruction, and/or weight-based dosing when appropriate to reduce radiation dose to as low as reasonably achievable. Dictated by Jani Wise MD @ 02/15/2021 6:41:[address] Results Date: 02/15/21 CT Results Time: 19:00 - Re-Assessments/Exams Free Text/Narrative Re-Assessment/Exam: 02/15/21 17:26 Had a self-limited seizure here in the ER. No hx of epilepsy. Will give Keppra IV and get a head CT scan. Departure - Departure Disposition: DC/Tfer to Acute Hospital 02 Condition: Serious Clinical Impression: Intraparenchymal hemorrhage of brain, Donath-Landsteiner hemolytic anemia, History of left nephrectomy HTN (hypertension) Qualifiers: Hypertension type: unspecified Qualified Code(s): I10 - Essential (primary) hypertension Abdominal pain Qualifiers: Abdominal location: generalized Qualified Code(s): R10.84 - Generalized abdominal pain CKD (chronic kidney disease), stage III Qualifiers: Chronic kidney disease stage 3 subtype: stage 3b (GFR 30-44) Qualified Code(s): N18.32 - Chronic kidney disease, stage 3b - Discharge Information Referrals: Lisa Gerber MD [Primary Care Provider] - Forms: ED Department Discharge <Jose Hernandez - Last Filed: 02/15/21 21:07> Course - Vital Signs Last Recorded V/S: Last Vital Signs Temp 35.7 C L 02/15/21 14:39 Pulse 76 02/15/21 19:52 Resp 20 02/15/21 20:54 BP 137/59 L 02/15/21 20:54 Pulse Ox 100 02/15/21 20:54 - Orders/Labs/Meds Orders: Active Orders 24 hr Category Date Time Status Law Catheter Insertion [Insert Urinary Catheter] [OM. Care 02/15/21 19:00 Ordered PC] Q24H Urinary Catheter Assessment [RC] ASDIRECTED Care 02/15/21 18:50 Active UA W/MICROSCOPIC [URIN] Stat Lab 02/15/21 18:51 Ordered Iopamidol [Isovue-300 (61%)] Med 02/15/21 16:29 Active 75 ml IV . DIRECTED PRN NS + KCl 20mEq/L [Normal Saline with 20 mEq KCl] 1,000 Med 02/15/21 19:00 Active ml IV ASDIRECTED levETIRAcetam [Keppra] 1,000 mg Med 02/15/21 19:15 Active Sodium Chloride 0.9% [Normal Saline] 100 ml IV Q12H niCARdipine HCl [Nicardipine HCl] 25 mg Med 02/15/21 20:00 Active Sodium Chloride 0.9% [Normal Saline] 240 ml IV TITRATE Medication Orders Potassium Chloride/Sodium Chloride (Normal Saline With 20 Meq Kcl) 1,000 mls @ 100 mls/hr IV ASDIRECTED CASSIE Last Admin: 02/15/21 19:28 Dose: 100 mls/hr Documented by: VERITO Levetiracetam 1,000 mg/ Sodium (Chloride) 110 mls @ 400 mls/hr IV Q12H CASSIE Last Admin: 02/15/21 19:59 Dose: 400 mls/hr Documented by: VERITO Nicardipine HCl 25 mg/ Sodium (Chloride) 250 mls @ 50 mls/hr IV TITRATE CASSIE; Protocol Last Admin: 02/15/21 20:13 Dose: 5 mg/hr, 50 mls/hr Documented by: VERITO Iopamidol (Iopamidol 612 Mg/Ml 100 Ml Bottle) 75 ml IV . DIRECTED PRN PRN Reason: RADIOLOGY EXAM Stop: 02/16/21 16:30 Last Admin: 02/15/21 18:32 Dose: 75 ml Documented by: PUMA Labs: Laboratory Tests 02/15/21 Range/Units 18:57 Lipase 57 L (73-393) U/L Meds: Medications Generic Name Dose Route Start Last Admin Trade Name Tierra PRN Reason Stop Dose Admin Potassium Chloride/Sodium Chloride 1,000 mls @ 100 mls/hr 02/15/21 19:00 02/15/21 19:28 Normal Saline With 20 Meq Kcl IV 100 mls/hr ASDIRECTED CASSIE Administration Levetiracetam 1,000 mg/ Sodium 110 mls @ 400 mls/hr 02/15/21 19:15 02/15/21 19:59 Chloride IV 400 mls/hr Q12H CASSIE Administration Nicardipine HCl 25 mg/ Sodium 250 mls @ 50 mls/hr 02/15/21 20:00 02/15/21 20:13 Chloride IV 5 mg/hr TITRATE CASSIE 50 mls/hr Administration Protocol 5 MG/HR Iopamidol 75 ml 02/15/21 16:29 02/15/21 18:32 Iopamidol 612 Mg/Ml 100 Ml Bottle IV 02/16/21 16:30 75 ml . DIRECTED PRN Administration RADIOLOGY EXAM Discontinued Medications Generic Name Dose Route Start Last Admin Trade Name Tierra PRN Reason Stop Dose Admin Sodium Chloride 70 mls @ 3 mls/sec 02/15/21 16:30 02/15/21 18:32 Normal Saline IV 02/15/21 16:31 3 mls/sec ASDIRECTED CASSIE Administration Levetiracetam 750 mg/ Sodium 107.5 mls @ 400 mls/hr 02/15/21 17:22 Chloride IV 02/15/21 17:36 ONETIME ONE Levetiracetam 1,000 mg/ Sodium 110 mls @ 400 mls/hr 02/15/21 17:24 02/15/21 17:34 Chloride IV 02/15/21 17:38 400 mls/hr ONETIME ONE Administration Esmolol HCl 250 mls @ 21.9 mls/hr 02/15/21 18:15 02/15/21 19:15 Esmolol Hcl In Sterile Water 2,500 Mg/250 Ml IV 54.79 mcg/kg/min TITRATE CASSIE 24 mls/hr Titration Protocol 50 MCG/KG/MIN Sodium Chloride Confirm 02/15/21 19:52 02/15/21 20:07 Normal Saline Administered 02/15/21 19:53 Not Given Dose 100 mls @ as directed .ROUTE .STK-MED ONE Levetiracetam 500 mg/ Sodium 105 mls @ 400 mls/hr 02/15/21 20:02 02/15/21 20:32 Chloride IV 02/15/21 20:16 400 mls/hr ONETIME ONE Administration Sodium Chloride Confirm 02/15/21 20:10 02/15/21 20:36 Normal Saline Administered 02/15/21 20:11 Not Given Dose 100 mls @ as directed .ROUTE .STK-MED ONE Metoprolol Tartrate 25 mg 02/15/21 15:15 02/15/21 15:32 Metoprolol Tartrate 25 Mg Tab PO 02/15/21 15:16 Not Given ONETIME ONE Midazolam HCl 3 mg 02/15/21 16:58 02/15/21 17:31 Midazolam 1 Mg/Ml 2 Ml Sdv IVPUSH 02/15/21 16:59 3 mg ONETIME ONE Administration Midazolam HCl 3 mg 02/15/21 20:34 02/15/21 20:38 Midazolam 1 Mg/Ml 2 Ml Sdv IVPUSH 02/15/21 20:35 3 mg ONETIME ONE Administration Ondansetron HCl 4 mg 02/15/21 15:35 02/15/21 15:52 Ondansetron 4 Mg/2 Ml Sdv IVPUSH 02/15/21 15:36 4 mg ONETIME ONE Administration Prochlorperazine Edisylate 5 mg 02/15/21 15:49 02/15/21 15:58 Prochlorperazine 10 Mg/2 Ml Sdv IVPUSH 02/15/21 15:50 5 mg ONETIME ONE Administration Sodium Chloride 10 ml 02/15/21 16:29 02/15/21 18:31 Sodium Chloride 0.9% 10 Ml Syringe FLUSH 02/15/21 16:30 10 ml ONETIME PRN Administration per radiology protocol - Re-Assessments/Exams Free Text/Narrative Re-Assessment/Exam: 02/15/21 19:58[Dr. Hernandez] I am assuming care of the patient from Dr. Glynn at 1945 hrs. reviewing everything it appears the patient has a hypertensive intracranial hemorrhage in the right parietal occipital region measuring approximately 1 cm. There does appear to be some extension into the sulci. She was initially on esmolol per my recommendation until we found out she had a bleed for her hypertension control. This is now been changed over to nicardipine with a goal of systolic blood pressure less than 140. Patient needs critical neurosurgical care and I discussed the case with Dr. Sullivan at [facility] who accepts the patient for admission to the neuro ICU. The patient has been loaded with Keppra 1000 mg and we will do an additional 500 load. We will get air care to provide transportation of the patient to [facility]. Current GCS is 15 although she is a little lethargic likely secondary to the Versed she received for sedation as she is quite combative. 02/15/21 20:00 patient was given Versed 3 mg IV push for sedation as she became combative. We did get a second line established in her right ankle. 20-gauge Departure - Departure Time of Disposition: 20:05 Sepsis Event Note (ED) - Focused Exam Vital Signs: Vital Signs Temp Pulse Resp BP Pulse Ox 02/15/21 20:54 20 137/59 L 100 02/15/21 20:50 18 144/64 H 98 02/15/21 19:52 76 18 166/79 H 99 02/15/21 19:37 76 17 169/79 H 97 02/15/21 19:22 70 176/90 H 02/15/21 19:17 75 17 181/83 H 98 02/15/21 18:38 91 18 180/81 H 99 02/15/21 18:36 91 13 184/84 H 99 02/15/21 18:08 97 16 165/69 H 99 02/15/21 17:22 94 226/101 H 100 02/15/21 15:15 67 16 208/102 H 100 02/15/21 14:39 35.7 C L 58 L 18 214/103 H 100 02/15/21 14:34 35.7 C L 58 L 18 214/103 H 100 - My Orders Last 24 Hours: My Active Orders 02/15/21 20:00 niCARdipine HCl [Nicardipine HCl] 25 mg Sodium Chloride 0.9% [Normal Saline] 240 ml IV TITRATE - Assessment/Plan Last 24 Hours: My Active Orders 02/15/21 20:00 niCARdipine HCl [Nicardipine HCl] 25 mg Sodium Chloride 0.9% [Normal Saline] 240 ml IV TITRATE
[2021-02-15] MEDS ORDERED: Sodium Chloride 0.9% 10 ML Syringe FLUSH PRN (16:29)
[2021-02-15] MEDS ORDERED: Iopamidol 612 MG/ML 100 ML Bottle IV PRN (16:29)
[2021-02-15] MEDS ORDERED: Midazolam 1 MG/ML 2 ML SDV IVPUSH ONE ×2 (16:58→20:34)
[2021-02-15] MEDS ORDERED: levETIRAcetam 1,000 MG in Sodium Chloride 0.9% 100 ML IV ONE (17:24)
--- NOTE | 2021-02-15 18:42 | CRLCT ---
For Patients: As a result of the Century Cures Act, medical imaging exams and procedure reports are released immediately into your electronic medical record. You may view this report before your referring provider. If you have questions, please contact your health care provider. INDICATION: Seizure. TECHNIQUE: CT head without contrast. COMPARISON: None. FINDINGS: CSF spaces: Within normal limits for age. Brain parenchyma and extra-axial spaces: There is a 7 mm parenchymal hemorrhage in the posterior right parietal lobe visualized on series 3, image 50. Small amount of subarachnoid hemorrhage is present in the adjacent sulci. A smaller 4 mm parenchymal hemorrhage is in the posterior right temporal lobe on series 3, image 27. No hemorrhage elsewhere. No extra-axial fluid collection. No mass effect or midline shift. Skull base and calvarium: The visualized paranasal sinuses and mastoid air cells demonstrate no acute or significant findings. The visualized orbits are grossly unremarkable. No skull fractures. IMPRESSION: There are 2 small parenchymal hemorrhages in the right parietal and temporal lobes respectively with a small amount of subarachnoid hemorrhage adjacent to the right parietal lesion. Remainder of the exam is unremarkable. Results discussed with Dr. Glynn at 1840 hours. Please note that all CT scans at this facility use dose modulation, iterative reconstruction, and/or weight-based dosing when appropriate to reduce radiation dose to as low as reasonably achievable. Dictated by Jani Wise MD @ 02/15/2021 6:41:06 PM (Electronically Signed)
--- NOTE | 2021-02-15 18:57 | CRLCT ---
For Patients: As a result of the Century Cures Act, medical imaging exams and procedure reports are released immediately into your electronic medical record. You may view this report before your referring provider. If you have questions, please contact your health care provider. INDICATION: Abdominal pain, worse with eating. TECHNIQUE: CT abdomen and pelvis acquired with 75 cc Isovue-300 IV contrast. COMPARISON: 12/15/2020. FINDINGS: Lower chest: Unremarkable. Liver: Unremarkable. Normal in size and attenuation. No suspicious masses. Gallbladder and bile ducts: Post cholecystectomy. No biliary dilatation. Pancreas: Unremarkable. No mass or inflammation. Spleen: Stable marked splenomegaly. Adrenal glands: Unremarkable. No nodules. Kidneys: Normal right kidney. Left kidney is absent. GI tract: There are postsurgical changes including a right ventral ileostomy. GI tract otherwise appears within normal limits in caliber in appearance. No obstructive changes. Vasculature: Splenic vein is engorged but patent. Portal vein is patent. Abdominal aorta normal in caliber. Mesenteric arteries are patent. Lymph nodes: No lymphadenopathy. Omentum/Peritoneum/Abdominal Wall: Unremarkable. No sign of mass or infiltration. No free air or significant free fluid. Pelvis: Postsurgical changes present in the pelvis. Urinary bladder demonstrates no acute findings or changes. Bones: Unremarkable for age. IMPRESSION: 1. No acute findings and no changes from the prior exam. 2. Stable marked splenomegaly. Please note that all CT scans at this facility use dose modulation, iterative reconstruction, and/or weight-based dosing when appropriate to reduce radiation dose to as low as reasonably achievable. Dictated by Jani Wise MD @ 02/15/2021 6:56:28 PM (Electronically Signed)
[2021-02-15] MEDS ORDERED: NS + KCl 20mEq/L 1,000 ML IV SCH (19:00)
[2021-02-15] MEDS ORDERED: levETIRAcetam 1,000 MG in Sodium Chloride 0.9% 100 ML IV SCH (19:15)
[2021-02-15] MEDS ORDERED: Sodium Chloride 0.9% 100 ML ONE ×2 (19:52→20:10)
[2021-02-15] MEDS ORDERED: niCARdipine HCl 25 MG in Sodium Chloride 0.9% 240 ML IV SCH (20:00)
[2021-02-15] MEDS ORDERED: levETIRAcetam 500 MG in Sodium Chloride 0.9% 100 ML IV ONE (20:02)
== END 2021-02-15 21:30 ==
LOC: JP.ED 13:13
DX: R10.84 Generalized abdominal pain (principal); I61.9 Nontraumatic intracerebral hemorrhage, unspecified; D58.9 Hereditary hemolytic anemia, unspecified; I12.9 Hypertensive chronic kidney disease with stage 1 through stage 4 chronic kidney disease, or unspecified chronic kidney disease; N18.32 Chronic kidney disease, stage 3b; D63.1 Anemia in chronic kidney disease; Z79.899 Other long term (current) drug therapy
CPT/HCPCS: 36415; 70450; 74177; 83690; 96365; 96367; 96375; 96376; 99285; J0780; J1953; J2250; J2405; J3480; J3490; J7050; Q9967

== ENCOUNTER 2021-03-12 08:13 | Emergency (ER) | payer MEDICARE, OTHER ==
[2021-03-12] MEDS ORDERED: Sodium Chloride 0.9% 10 ML Syringe FLUSH PRN (09:32)
--- NOTE | 2021-03-12 09:35 | EDM.PDOC ---
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 It was felt that this was due to hypertensive disease. She was also found to have a posterior reversible encephalopathy. She was transferred to [facility] where she underwent evaluation from neurology and was hospitalized at their facility for just over 2 weeks. She was initiated on Keppra for seizure control and hydralazine for blood pressure control in addition to her numerous other medications. The patient reports that since being discharged she is continue to have ongoing issues with headaches and is now having visual hallucinations and auditory hallucinations that at times are quite troubling. She reports that today while riding in the car to come to the emergency room she repeatedly side kids darting into the street in front of their car causing her to startle. She reports that she has had several episodes where she has a conversation with the television but her notes that nothing is on the TV at the time. She has had a persistent left-sided headache and has had repeated episodes of lightheadedness and dizziness most recently being today while going to the bathroom. She does have a history of chronic dehydration and receives several liters of lactated Ringer's IV daily. She has not had her lactated Ringer's today so we will check orthostatic blood pressures. noted that yesterday he did have to give her hydralazine because her pressures were 183/100 and it seemed to resolve the hypertension. He says normally she is not that hypertensive. She did recently see Dr. Tapia at the [facility] for a post hospitalization follow-up. The patient does have a past medic al history significant for chronic pain syndrome, anxiety, chronic kidney disease stage III with a solitary kidney status post nephrectomy, migraine headaches, Crohn's disease, hypomagnesemia, chronic normocytic anemia, chronic thrombocytopenia, ileostomy, vitamin D deficiency, iron deficiency due to chronic blood loss, GERD with esophagitis, previous HI, metabolic acidosis, medical cannabis use, recurrent nephrolithiasis, endocarditis, and small bowel obstruction. She denies having any significant fever but has had chills. This has been ongoing for the last 2 to 3 weeks. Over the last 2 to 3 days she is just felt more unwell. Treatments BROKER: Reports: Acetaminophen Head Pain Score (Numeric/FACES): 9 - Related Data Allergies Allergy/AdvReac Type Severity Reaction Status Date / Time diltiazem Allergy Hives Verified 03/12/21 09:04 hydrocodone Allergy Itching Verified 03/12/21 09:05 morphine Allergy Nausea and Verified 03/12/21 09:05 Vomiting promethazine Allergy Other Verified 03/12/21 09:04 Home Meds: Home Meds Acetaminophen [Acetaminophen Extra Strength] 1,000 mg PO Q4HR PRN 06/17/19 [History] Cyanocobalamin (Vitamin B-12) [Cyanocobalamin Injection] 1 ml IM ASDIRECTED 06/17/19 [History] Nystatin [Nystatin Oint] 1 dose TOP BID PRN 06/17/19 [History] Ondansetron [Zofran ODT] 4 mg PO Q4HR PRN 06/17/19 [History] Lactobacillus Rhamnosus GG [Culturelle] 1 cap PO BID #60 cap 09/16/19 [Rx] Melatonin 9 mg PO BEDTIME tablet 09/16/19 [Rx] Psyllium Seed (With Sugar) [Metamucil Fiber Wafer] 2 each PO TID #180 wafer 11/01/19 [Rx] Magnesium Sulfate/D5W [Magnesium 2 Gram/50 ml-D5w] 2 gm IV ASDIRECTED 01/19/20 [History] Loperamide [Imodium] 2 mg PO Q4H PRN 03/15/20 [History] tiZANidine [Zanaflex] 4 mg PO BID PRN tablet 03/31/20 [Rx] Buprenorphine HCl/Naloxone HCl [Buprenor-Nalox 12-3 mg Sl Film] 1 each SL DAILY 02/15/21 [History] Gabapentin [Neurontin] 600 mg PO TID 02/15/21 [History] Lactobacillus Rhamnosus GG [Culturelle] 1 cap PO BID 02/15/21 [History] Multivit with Iron,Minerals [Flintstones Complete] 1 each PO DAILY 02/15/21 [History] OLANZapine [ZyPREXA] 2.5 mg PO DAILY 02/15/21 [History] Divalproex Sodium [Depakote ER] 500 mg PO BEDTIME #30 tab.sr.24h 03/12/21 [Rx] amLODIPine [Norvasc] 10 mg .ROUTE DAILY 03/12/21 [History] Past Medical History HEENT History: Reports: Impaired Vision Cardiovascular History: Reports: Arrhythmia Gastrointestinal History: Reports: Bowel Obstruction, Chronic Diarrhea, Other (See Below) Other Gastrointestinal History: hernia, multiple bowel surgerys, short gut syndrome Genitourinary History: Reports: Renal Calculus 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 History: Reports: Neurological History: Reports: CVA, Migraines, Seizure Psychiatric History: Reports: Anxiety Endocrine/Metabolic History: Reports: Hypomagnesemia Hematologic History: Reports: Anemia, B12 Deficiency, Blood Transfusion(s), Folic Acid, Iron Deficiency Other Hematologic History: magnesium deficiency Oncologic (Cancer) History: Reports: None - Infectious Disease History Infectious Disease History: Reports: Chicken Pox, Measles, Mumps - Past Surgical History Head Surgeries/Procedures: Reports: None HEENT Surgical History: Reports: Adenoidectomy, Tonsillectomy Cardiovascular Surgical History: Reports: Cardiac Ablation GI Surgical History: Reports: Appendectomy, Cholecystectomy, Colonoscopy, EGD, Other (See Below) Other GI Surgeries/Procedures: hernia, has ileostomy. ileostomy Female Surgical History: Reports: Hysterectomy, Other (See Below) Other Female Surgeries/Procedures: nephrectomy left Endocrine Surgical History: Reports: None Neurological Surgical History: Reports: None Dermatological Surgical History: Reports: None Social & Family History - Family History Family Medical History: No Pertinent Family History - Tobacco Use Tobacco Use Status *Q: Never Tobacco User Second Hand Smoke Exposure: No - Caffeine Use Caffeine Use: Reports: Soda - Recreational Drug Use Recreational Drug Use: No ED ROS GENERAL - Review of Systems Review Of Systems: See Below Constitutional: Reports: Chills, Malaise, Weakness HEENT: Reports: No Symptoms Respiratory: Reports: No Symptoms Cardiovascular: Reports: Lightheadedness Endocrine: Reports: No Symptoms GI/Abdominal: Reports: Abdominal Pain (Chronic abdominal pain), Other (Ileostomy) : Reports: No Symptoms Musculoskeletal: Reports: No Symptoms Skin: Reports: No Symptoms Neurological: Reports: Confusion, Dizziness, Seizure (Currently on Keppra), Other (Difficulty with sleep) Psychiatric: Reports: Agitation ( reports the patient has been more agitated since last night), Anxiety (Chronic anxiety issues), Hallucinations (Visual and auditory hallucinations since having her stroke) Hematologic/Lymphatic: Reports: Anemia Immunologic: Reports: No Symptoms - Physical Exam Exam: See Below Exam Limited By: No Limitations General Appearance: Alert, Anxious, Mild Distress (Due to ongoing issue with headache) Eye Exam: Bilateral Eye: Abnormal EOM (Diplopia when looking towards the left), PERRL Throat/Mouth: Normal Inspection, Normal Oropharynx, Normal Voice, No Airway Compromise Head Exam: Atraumatic, Normocephalic Neck: Normal Inspection, Supple, Non-Tender, Full Range of Motion. No: Carotid Bruit Respiratory/Chest: No Respiratory Distress, Lungs Clear, Normal Breath Sounds Cardiovascular: Normal Peripheral Pulses, Regular Rate, Rhythm, No Murmur GI/Abdominal: Normal Bowel Sounds, Soft Neuro Exam (Abbreviated): Alert, Oriented, Normal Cognition, No Motor/Sensory Deficits Extremities: Normal Inspection, No Pedal Edema Psychiatric: Anxious Skin Exam: Warm, Dry, Intact, Normal Color Course - Vital Signs Last Recorded V/S: Last Vital Signs Temp Pulse 47 L 03/12/21 11:27 Resp 16 03/12/21 08:18 BP 130/60 03/12/21 11:27 Pulse Ox 99 03/12/21 11:27 Orthostatic Blood Pressure [ 65/41 Standing] Orthostatic Blood Pressure [ 81/47 Sitting] Orthostatic Blood Pressure [ 98/55 Supine] - Orders/Labs/Meds Orders: Active Orders 24 hr Category Date Time Status Orthostatic Vital Signs [RC] ASDIRECTED Care 03/12/21 09:25 Active Lactated Ringers [Ringers, Lactated] 1,000 ml Med 03/12/21 09:45 Active IV ASDIRECTED Lactated Ringers [Ringers, Lactated] 1,000 ml Med 03/12/21 11:30 Active IV ASDIRECTED Sodium Chloride 0.9% [Saline Flush] Med 03/12/21 09:32 Active 10 ml FLUSH ASDIRECTED PRN Saline Lock Insert [OM.PC] Routine Oth 03/12/21 09:32 Ordered Medication Orders Lactated Ringer's (Ringers, Lactated) 1,000 mls @ 999 mls/hr IV ASDIRECTED CASSIE Last Admin: 03/12/21 09:38 Dose: 999 mls/hr Documented by: BADEALL Lactated Ringer's (Ringers, Lactated) 1,000 mls @ 999 mls/hr IV ASDIRECTED CASSIE Sodium Chloride (Sodium Chloride 0.9% 10 Ml Syringe) 10 ml FLUSH ASDIRECTED PRN PRN Reason: Keep Vein Open Labs: Laboratory Tests 03/12/21 03/12/21 Range/Units 10:46 11:32 Urine Color Yellow (YELLOW) Urine Appearance Slightly cloudy A (CLEAR) Urine pH 5.5 (5.0-8.0) Ur Specific [place] >= 1.030 (1.008-1.030) Urine Protein 100 H (NEGATIVE) mg/dL Urine Glucose (UA) Negative (NEGATIVE) mg/dL Urine Ketones Negative (NEGATIVE) mg/dL Urine Occult Blood Negative (NEGATIVE) Urine Nitrite Negative (NEGATIVE) Urine Bilirubin Moderate H (NEGATIVE) Urine Urobilinogen 0.2 (0.2-1.0) EU/dL Ur Leukocyte Esterase Negative (NEGATIVE) Urine RBC 0-5 (0-5) Urine WBC 5-10 H (0-5) Ur Epithelial Cells Few Amorphous Sediment Not seen Urine Bacteria Few Urine Mucus Many Urine Other SARS CoV-2 RNA Rapid BJ Negative Meds: Medications Generic Name Dose Route Start Last Admin Trade Name Tierra PRN Reason Stop Dose Admin Lactated Ringer's 1,000 mls @ 999 mls/hr 03/12/21 09:45 03/12/21 09:38 Ringers, Lactated IV 999 mls/hr ASDIRECTED CASSIE Administration Lactated Ringer's 1,000 mls @ 999 mls/hr 03/12/21 11:30 Ringers, Lactated IV ASDIRECTED CASSIE Sodium Chloride 10 ml 03/12/21 09:32 Sodium Chloride 0.9% 10 Ml Syringe FLUSH ASDIRECTED PRN Keep Vein Open Discontinued Medications Generic Name Dose Route Start Last Admin Trade Name Tierra PRN Reason Stop Dose Admin Dexamethasone 4 mg 03/12/21 11:38 03/12/21 11:50 Dexamethasone 4 Mg/Ml Sdv IVPUSH 03/12/21 11:39 4 mg ONETIME ONE Administration - Re-Assessments/Exams Free Text/Narrative Re-Assessment/Exam: 03/12/21 10:24 I reviewed the images of the CT of the head without contrast as well as the report. The report is as follows: Previously seen and described parenchymal hemorrhage in the posterior right calin etal lobe is significantly involuted. There is some minimal residual increased density. Small foci of hemorrhage in the posterior right temporal lobe seen on previous study has also significantly involuted. Reviewed previous study shows some loss of the salas-white matter junction in the parietal occipital junction region. This is less obvious and on the current exam. The basal cisterns and sulci over the convexities are prominent, especially over the frontal lobes. The ventricles are normal for age. Impression significant involution of parenchymal and subarachnoid hemorrhages seen on the 02/15/2021 study. Previous study showed some loss of delineation of the salas-white matter junction in the right occipital lobe. The this appearance has resolved. If clinically relevant MRI brain is a consideration. 03/12/21 11:21 I reviewed the patient's labs from the [facility] done on 03/09/2021. She had a leukocyte count of 3.1 with a hemoglobin of 9.9 and a platelet count of 95,000. Her comprehensive metabolic panel was significant for sodium of 136, potassium of 4.4, chloride of 105, bicarbonate of 22, glucose of 83 with a BUN of 20 and a creatinine of 1.37. Her GFR has dropped from 44-39 and her magnesium is 1.5. Her liver enzymes are normal. Her iron is 839 with a TIBC of 483 and an iron saturation of 100%. Her Keppra level is 30.6. Because of the hallucinations and her persistent headache, we proceeded with a CT of the head without contrast to evaluate for any acute changes. She has had involution of both the subarachnoid bleeds as well as resolution of the loss of salas-white matter differentiation in the occipital lobe. There is no acute changes other than what was described above. We did check a urinalysis which showed 5-10 WBCs with no RBCs but negative nitrites and leukocyte esterase so this is unlikely to be indicative of a UTI. She was very significantly orthostatic with her blood pressure dropping from 120s over 70 to a systolic pressure of 65 from lying to sitting. She did become quite dizzy with this and was subsequently given 2 L of lactated Ringer's IV. Departure - Departure Time of Disposition: 12:15 Disposition: Home, Self-Care 01 Clinical Impression: Orthostatic hypotension, Dehydration, Visual hallucinations, Auditory hallucinations, History of recent stroke - Discharge Information Prescriptions: Divalproex Sodium [Depakote ER] 500 mg PO BEDTIME #30 tab.sr.24h Instructions: Dehydration, Adult, Rhpy-pi-Mrvv, Orthostatic Hypotension Referrals: PCP,None [Primary Care Provider] - Forms: ED Department Discharge Care Plan Goals: I discussed the case with Dr. Keane from neurology at [facility] who recommended that we start Depakote ER 500 mg at bedtime. This should help both with sleep and your headache. It may also help with the audio and visual hallucinations. She did review that your MRI showed extensive damage to the bilateral occipital lobes which are responsible for vision. She recommended that you contact Dr. Osiris Flowers at [facility] for a follow-up sooner than May. The phone number for her office is [phone]. Continue to hydrate with the intravenous lactated Ringer's. You do need an additional liter of fluid today. I hope that things get better for you but please feel free to reach out to us if you have any additional questions or concerns. Have a wonderful day. Sepsis Event Note (ED) - Focused Exam Vital Signs: Vital Signs Pulse Resp BP Pulse Ox 03/12/21 11:27 47 L 130/60 99 03/12/21 08:18 48 L 16 90/56 L 99 - Problem List & Annotations (1) Auditory hallucinations SNOMED Code(s): 18521613 Code(s): R44.0 - AUDITORY HALLUCINATIONS Status: Acute Priority: High Current Visit: Yes (2) Dehydration SNOMED Code(s): 55495611 Code(s): E86.0 - DEHYDRATION Status: Acute Priority: High Current Visit: Yes (3) History of recent stroke SNOMED Code(s): 124884256 Code(s): Z86.73 - PRSNL HX OF TIA (TIA), AND CEREB INFRC W/O RESID DEFICITS Status: Acute Priority: High Current Visit: Yes (4) Orthostatic hypotension SNOMED Code(s): 29865845 Code(s): I95.1 - ORTHOSTATIC HYPOTENSION Status: Acute Priority: High Current Visit: Yes (5) Visual hallucinations SNOMED Code(s): 69071423 Code(s): R44.1 - VISUAL HALLUCINATIONS Status: Acute Priority: High Current Visit: Yes - Problem List Review Problem List Initiated/Reviewed/Updated: Yes - My Orders Last 24 Hours: My Active Orders 03/12/21 09:25 Orthostatic Vital Signs [RC] ASDIRECTED 03/12/21 09:32 Sodium Chloride 0.9% [Saline Flush] 10 ml FLUSH ASDIRECTED PRN Saline Lock Insert [OM.PC] Routine 03/12/21 09:45 Lactated Ringers [Ringers, Lactated] 1,000 ml IV ASDIRECTED 03/12/21 11:30 Lactated Ringers [Ringers, Lactated] 1,000 ml IV ASDIRECTED - Assessment/Plan Last 24 Hours: My Active Orders 03/12/21 09:25 Orthostatic Vital Signs [RC] ASDIRECTED 03/12/21 09:32 Sodium Chloride 0.9% [Saline Flush] 10 ml FLUSH ASDIRECTED PRN Saline Lock Insert [OM.PC] Routine 03/12/21 09:45 Lactated Ringers [Ringers, Lactated] 1,000 ml IV ASDIRECTED 03/12/21 11:30 Lactated Ringers [Ringers, Lactated] 1,000 ml IV ASDIRECTED
[2021-03-12] MEDS ORDERED: Lactated Ringers 1,000 ML IV SCH ×2 (09:45→11:30)
--- NOTE | 2021-03-12 10:14 | CT ---
Head wo Cont CLINICAL HISTORY: Trach, status post stroke, hallucinations COMPARISON: 02/15/2021 TECHNIQUE: Transverse scans were obtained from the base of the skull through the vertex without IV contrast on a multislice, multidetector CT scanner. Auto dosage reduction and iterative reconstruction techniques employed. FINDINGS: Previously seen and described parenchymal hemorrhage in the posterior right parietal lobe has significantly involuted. There is some minimal residual increased density. Small focus of hemorrhage in the posterior right temporal lobe seen on previous study has also significantly involuted Review previous study shows some loss of salas-white matter junction in the parietal-occipital junction region. This is less obvious on the current exam. The basal cisterns and sulci over the convexities are prominent, especially over the frontal lobes. The ventricles are normal for age. IMPRESSION: Significant involution of parenchymal and subarachnoid hemorrhage is seen on the 02/15/2021 study Previous study showed some loss of delineation of the salas-white matter junction in the right occipital lobe. This appearance has resolved. If clinically relevant MR brain is a consideration
[2021-03-12] MEDS ORDERED: Dexamethasone 4 MG/ML SDV IVPUSH ONE (11:38)
== END 2021-03-12 12:44 | disposition home or self-care (01) ==
LOC: JP.ED 08:13
DX: I95.1 Orthostatic hypotension (principal); R44.0 Auditory hallucinations; R44.1 Visual hallucinations; E86.0 Dehydration; E83.42 Hypomagnesemia; Z86.73 Personal history of transient ischemic attack (TIA), and cerebral infarction without residual deficits; Z88.5 Allergy status to narcotic agent; Z88.1 Allergy status to other antibiotic agents; Z88.8 Allergy status to other drugs, medicaments and biological substances; Z20.822 Contact with and (suspected) exposure to COVID-19; Z79.899 Other long term (current) drug therapy
CPT/HCPCS: 70450; 81001; 96374; 99285; J1100; J7120; U0002

== ENCOUNTER 2021-05-17 06:52 | Emergency (ER) | payer MEDICARE, OTHER ==
[2021-05-17] MEDS ORDERED: HYDROmorphone 1 MG/ML Syringe IVPUSH ONE ×5 (07:25→16:43)
[2021-05-17] MEDS: Sodium Chloride 0.9% 10 ML Syringe FLUSH PRN ×2 (07:37→08:24)
[2021-05-17] MEDS ORDERED: Sodium Chloride 0.9% 1,000 ML IV ONE (08:05)
[2021-05-17] MEDS ORDERED: fentaNYL 100 MCG/2 ML SDV IVPUSH ONE (09:27)
[2021-05-17] MEDS ORDERED: Vancomycin 1.1 GM in Sodium Chloride 0.9% 250 ML IV ONE ×2 (10:07→10:30)
[2021-05-17] MEDS ORDERED: Piperacillin/Tazobactam 3.375 GM in Sodium Chloride 0.9% 50 ML IV SCH (10:15)
[2021-05-17] MEDS ORDERED: HYDROmorphone 0.5 MG/0.5 ML Syringe IVPUSH ONE ×3 (10:18→22:40)
[2021-05-17] MEDS ORDERED: Piperacillin/Tazobactam/Dext 3.375 GM in Premix Bag 1 BAG IV ONE (10:30)
[2021-05-17] MEDS ORDERED: Gadoteridol 279.3 MG/ML 15 ML SDV IV SCH (13:00)
[2021-05-17 14:39] LABS: CORONAVIRUS COVID-19 NAA NEGATIVE (NEGATIVE)
[2021-05-17] MEDS ORDERED: Piperacillin/Tazobactam 2.25 GM in Sodium Chloride 0.9% 50 ML IV ONE (17:31)
== END 2021-05-17 23:36 | disposition critical access hospital (66) ==
LOC: JP.ED 06:52
DX: N17.9 Acute kidney failure, unspecified (principal); S00.03XA Contusion of scalp, initial encounter; G89.29 Other chronic pain; M54.50 Low back pain, unspecified; E83.41 Hypermagnesemia; E87.1 Hypo-osmolality and hyponatremia; E87.8 Other disorders of electrolyte and fluid balance, not elsewhere classified; E87.2 Acidosis; Z88.5 Allergy status to narcotic agent; Z88.8 Allergy status to other drugs, medicaments and biological substances; Z79.899 Other long term (current) drug therapy; Z20.822 Contact with and (suspected) exposure to COVID-19; Z86.73 Personal history of transient ischemic attack (TIA), and cerebral infarction without residual deficits
CPT/HCPCS: 0241U; 36415; 70450; 72148; 80048; 81001; 82803; 83605; 83735; 84145; 85025; 85610; 85730; 86140; 87040; 87186; 93005; 96365; 96366; 96367; 96375; 96376; 99285; A9579; J1170; J2543; J3010; J3370; J7030; J7050; 93010

== ENCOUNTER 2021-07-13 13:30 | Emergency (ER) | payer MEDICARE, OTHER ==
[2021-07-13] MEDS ORDERED: HYDROmorphone 1 MG/ML Syringe IVPUSH ONE ×2 (14:15→15:20)
== END 2021-07-13 16:45 | disposition home or self-care (01) ==
LOC: JP.ED 13:30
DX: Z45.2 Encounter for adjustment and management of vascular access device (principal); Z88.5 Allergy status to narcotic agent; Z86.73 Personal history of transient ischemic attack (TIA), and cerebral infarction without residual deficits
CPT/HCPCS: 36415; 36569; 80048; 83605; 84145; 85025; 85379; 87040; 87077; 87186; 93971-LT; 96374; 96376; 99283; 99284-25; J1170

== ENCOUNTER 2021-07-15 17:36 | Emergency (ER) | payer MEDICARE, OTHER ==
[2021-07-15] MEDS ORDERED: HYDROmorphone 0.5 MG/0.5 ML Syringe IVPUSH ONE ×2 (18:22→19:26)
[2021-07-15] MEDS ORDERED: Sodium Chloride 0.9% 10 ML Syringe FLUSH PRN (18:22)
[2021-07-15] MEDS ORDERED: Lactated Ringers 1,000 ML IV SCH (19:00)
== END 2021-07-15 20:30 | disposition home or self-care (01) ==
LOC: JP.ED 17:36
DX: S00.12XA Contusion of left eyelid and periocular area, initial encounter (principal); S80.01XA Contusion of right knee, initial encounter; S60.011A Contusion of right thumb without damage to nail, initial encounter; S80.02XA Contusion of left knee, initial encounter; R55 Syncope and collapse; H53.2 Diplopia; N18.4 Chronic kidney disease, stage 4 (severe); Z88.5 Allergy status to narcotic agent; Z88.8 Allergy status to other drugs, medicaments and biological substances; Z86.73 Personal history of transient ischemic attack (TIA), and cerebral infarction without residual deficits; W18.09XA Striking against other object with subsequent fall, initial encounter
CPT/HCPCS: 36415; 70450; 70486; 72125; 73130-26-RT; 73130-RT; 735622650; 73562-50; 80053; 83605; 84145; 85025; 86140; 96374; 96376; 99284; 99284-25; J1170; J3490; J7120

== ENCOUNTER 2021-07-26 19:06 | Emergency (ER) | payer MEDICARE, OTHER ==
[2021-07-26] MEDS ORDERED: Lactated Ringers 1,000 ML IV SCH (19:15)
[2021-07-26] MEDS ORDERED: HYDROmorphone 0.5 MG/0.5 ML Syringe IVPUSH ONE ×2 (19:43→22:11)
== END 2021-07-26 22:47 ==
LOC: JP.ED 19:06
DX: S00.83XA Contusion of other part of head, initial encounter (principal); G06.1 Intraspinal abscess and granuloma; M46.26 Osteomyelitis of vertebra, lumbar region; R53.1 Weakness; N18.4 Chronic kidney disease, stage 4 (severe); Z20.822 Contact with and (suspected) exposure to COVID-19; R29.6 Repeated falls; Z86.73 Personal history of transient ischemic attack (TIA), and cerebral infarction without residual deficits; W19.XXXA Unspecified fall, initial encounter
CPT/HCPCS: 36415; 70450; 70486; 80053; 81001; 82550; 83605; 83735; 85025; 96374; 96376; 99284; 99285-25; J1170; J7120; U0002

== ENCOUNTER 2021-08-01 08:02 | Emergency (ER) | payer MEDICARE, OTHER ==
[2021-08-01] MEDS ORDERED: HYDROmorphone 0.5 MG/0.5 ML Syringe IVPUSH ONE (09:04)
[2021-08-01] MEDS ORDERED: Magnesium Sulfate/Water 2 GM in Premix Bag 1 BAG IV ONE (09:46)
== END 2021-08-01 12:04 | disposition home or self-care (01) ==
LOC: JP.ED 08:02
DX: I67.83 Posterior reversible encephalopathy syndrome (principal); I95.1 Orthostatic hypotension; G89.29 Other chronic pain; M54.50 Low back pain, unspecified; I50.9 Heart failure, unspecified; E83.42 Hypomagnesemia; Z88.5 Allergy status to narcotic agent; Z88.8 Allergy status to other drugs, medicaments and biological substances; Z86.73 Personal history of transient ischemic attack (TIA), and cerebral infarction without residual deficits; Z79.899 Other long term (current) drug therapy
CPT/HCPCS: 36415; 80048; 81001; 82533; 83735; 85025; 96365; 96366; 96375; 99284; 99284-25; J1170; J3475

== ENCOUNTER 2021-09-20 19:29 | Emergency (ER) | payer MEDICARE, OTHER ==
[2021-09-20] MEDS ORDERED: fentaNYL 50 MCG/ML SDV IVPUSH ONE (20:00)
[2021-09-20] MEDS ORDERED: HYDROmorphone 0.5 MG/0.5 ML Syringe IVPUSH ONE ×4 (20:39→23:54)
[2021-09-20] MEDS ORDERED: Ketorolac 30 MG/ML SDV IM ONE (23:55)
== END 2021-09-21 00:22 | disposition home or self-care (01) ==
LOC: JP.ED 19:29
DX: R51.9 Headache, unspecified (principal); M54.2 Cervicalgia; M25.512 Pain in left shoulder; I10 Essential (primary) hypertension; Z88.5 Allergy status to narcotic agent; Z88.8 Allergy status to other drugs, medicaments and biological substances; Z79.899 Other long term (current) drug therapy; Z86.73 Personal history of transient ischemic attack (TIA), and cerebral infarction without residual deficits
CPT/HCPCS: 36415; 70450; 80048; 84484; 85025; 85610; 85730; 93005; 96372; 96374; 96375; 96376; 99283; 99284-25; J1170; J1885; J3010

== ENCOUNTER 2021-11-09 12:27 | Emergency (ER) | payer OTHER, MEDICARE ==
[2021-11-09] MEDS: Ketorolac 10 MG Tab PO ONE (13:29)
== END 2021-11-09 14:21 | disposition home or self-care (01) ==
LOC: JP.ED 12:27
DX: R09.1 Pleurisy (principal); Z88.5 Allergy status to narcotic agent; Z88.8 Allergy status to other drugs, medicaments and biological substances; Z86.73 Personal history of transient ischemic attack (TIA), and cerebral infarction without residual deficits; Z20.822 Contact with and (suspected) exposure to COVID-19
CPT/HCPCS: 71046; 87635; 99285; A9270; U0002

== ENCOUNTER 2021-11-19 13:00 | Inpatient (IN) | payer OTHER, MEDICARE ==
[2021-11-19] MEDS ORDERED: HYDROmorphone 1 MG/ML Syringe IVPUSH ONE (15:51)
[2021-11-19] MEDS ORDERED: Ketorolac 30 MG/ML SDV IVPUSH ONE (15:51)
[2021-11-19] MEDS ORDERED: HYDROmorphone 1 MG/ML Syringe IVPUSH PRN (16:58)
[2021-11-19] MEDS ORDERED: diphenhydrAMINE 50 MG/ML SDV IVPUSH PRN (16:59)
[2021-11-19] MEDS ORDERED: Acetaminophen 500 MG Tab PO PRN (17:01)
[2021-11-19] MEDS ORDERED: HYDROmorphone 2 MG Tab PO PRN (19:13)
[2021-11-19] MEDS ORDERED: Acetaminophen 1,000 MG in Premix Bag 1 BAG IV ONE (21:11)
== END 2021-11-20 00:10 | disposition home or self-care (01) | DRG 810 ==
LOC: JP.ED 13:00 → JP.MS 17:22
PROVIDERS: ADMIT Family Medicine; ATTEND Family Medicine
PROC: 30233N1 Transfusion of Nonautologous Red Blood Cells into Peripheral Vein, Percutaneous Approach (ICD-10-PCS; principal; 2021-11-19)
DX: D59.10 Autoimmune hemolytic anemia, unspecified (principal); H54.7 Unspecified visual loss; K52.9 Noninfective gastroenteritis and colitis, unspecified; G89.29 Other chronic pain; M54.9 Dorsalgia, unspecified; G43.909 Migraine, unspecified, not intractable, without status migrainosus; F41.9 Anxiety disorder, unspecified; E83.42 Hypomagnesemia; E53.8 Deficiency of other specified B group vitamins; E61.2 Magnesium deficiency; Z86.19 Personal history of other infectious and parasitic diseases; Z88.8 Allergy status to other drugs, medicaments and biological substances; Z88.5 Allergy status to narcotic agent; Z88.6 Allergy status to analgesic agent; Z79.899 Other long term (current) drug therapy; Z86.73 Personal history of transient ischemic attack (TIA), and cerebral infarction without residual deficits; Z90.89 Acquired absence of other organs; Z90.49 Acquired absence of other specified parts of digestive tract; Z90.710 Acquired absence of both cervix and uterus
CPT/HCPCS: 36415; 80048; 85025; 86902; 96374; 96375; 99284-25; A9270-GY; J0131; J1170; J1200; J1885

== ENCOUNTER 2021-11-23 16:21 | Emergency (ER) | payer OTHER, MEDICARE ==
[2021-11-23] MEDS ORDERED: Ketorolac 30 MG/ML SDV IVPUSH ONE (17:15)
[2021-11-23] MEDS ORDERED: Buprenorphine/Naloxone 8-2 MG Tab.SL SL ONE (17:59)
== END 2021-11-23 18:23 | disposition home or self-care (01) ==
LOC: JP.ED 16:21
DX: G89.29 Other chronic pain (principal); R53.1 Weakness; R11.0 Nausea; Z88.5 Allergy status to narcotic agent; Z88.8 Allergy status to other drugs, medicaments and biological substances; Z86.73 Personal history of transient ischemic attack (TIA), and cerebral infarction without residual deficits
CPT/HCPCS: 36415; 80048; 85025; 96374; 99284; J0574; J1885

== ENCOUNTER 2022-02-09 09:01 | Observation (INO) | payer MEDICARE, OTHER ==
[2022-02-09] MEDS ORDERED: Ketorolac 30 MG/ML SDV IVPUSH ONE ×2 (10:25→15:05)
[2022-02-09] MEDS ORDERED: HYDROmorphone 1 MG/ML Syringe IVPUSH ONE (13:50)
[2022-02-09] MEDS ORDERED: tiZANidine 2 MG Tab PO ONE (15:36)
[2022-02-09] MEDS ORDERED: Ondansetron 4 MG/2 ML SDV IV PRN (19:12)
[2022-02-09] MEDS ORDERED: Magnesium Hydroxide 400 MG/5 ML Susp 30 ML Cup PO PRN (19:12)
[2022-02-09] MEDS ORDERED: Melatonin 3 MG Tab PO PRN (19:12)
[2022-02-09] MEDS ORDERED: Ondansetron 4 MG Tab.DIS PO PRN (19:12)
[2022-02-09] MEDS: tiZANidine 2 MG Tab PO PRN (19:45)
[2022-02-09] MEDS: Acetaminophen 325 MG Tab PO SCH (19:45)
[2022-02-09] MEDS: Lactated Ringers 1,000 ML IV SCH (19:46)
[2022-02-09] MEDS: Ketorolac 30 MG/ML SDV IVPUSH SCH (20:01)
[2022-02-09] MEDS ORDERED: Non-Formulary Medication 1 Each (Buprenorphine Hcl/Naloxone Hcl [Buprenorphine-Nalox 12-3m SL SCH (21:00)
[2022-02-09] MEDS ORDERED: Buprenorphine/Naloxone 2-0.5 MG Tab.SL SL ONE (21:00)
[2022-02-09] MEDS ORDERED: Non-Formulary Medication 1 Each (Levetiracetam [Keppra] 1,000 MG Tablet) PO SCH (21:00)
[2022-02-09] MEDS ORDERED: Venlafaxine 75 MG Tab PO ONE (21:00)
[2022-02-09] MEDS ORDERED: levETIRAcetam 250 MG Tab PO ONE (21:00)
[2022-02-09] MEDS ORDERED: Buprenorphine/Naloxone 8-2 MG Tab.SL SL ONE (21:00)
[2022-02-09] MEDS: levETIRAcetam 250 MG Tab PO SCH (22:04)
[2022-02-10] MEDS: Acetaminophen 325 MG Tab PO SCH ×7 (01:30→23:59)
[2022-02-10] MEDS: tiZANidine 2 MG Tab PO PRN ×4 (02:23→22:03)
[2022-02-10] MEDS: Ketorolac 30 MG/ML SDV IVPUSH SCH ×4 (02:23→20:00)
[2022-02-10] MEDS: Lactated Ringers 1,000 ML IV SCH (02:23)
[2022-02-10] MEDS: Buprenorphine/Naloxone 2-0.5 MG Tab.SL SL SCH ×2 (07:37→19:56)
[2022-02-10] MEDS: Buprenorphine/Naloxone 8-2 MG Tab.SL SL SCH ×2 (07:37→19:56)
[2022-02-10] MEDS ORDERED: Buprenorphine/Naloxone 2-0.5 MG Tab.SL SL SCH (09:00)
[2022-02-10] MEDS ORDERED: MULTIVIT WITH IRON MINERALS PO SCH (09:00)
[2022-02-10] MEDS ORDERED: Buprenorphine/Naloxone 8-2 MG Tab.SL SL SCH (09:00)
[2022-02-10] MEDS ORDERED: [UNRECOGNIZED DRUG - OTHER] PO SCH (09:00)
[2022-02-10] MEDS ORDERED: methylPREDNISolone Acetate 80 MG/ML SDV ONE (11:02)
[2022-02-10] MEDS ORDERED: Bupivacaine 0.25% 10 ML SDV ONE (11:03)
[2022-02-10] MEDS ORDERED: Sodium Chloride 0.9% 10 ML ONE (11:03)
[2022-02-10] MEDS: levETIRAcetam 250 MG Tab PO SCH ×2 (11:42→20:00)
[2022-02-10] MEDS: Cholecalciferol (Vitamin D3) 25 MCG Tab PO SCH (11:43)
[2022-02-10] MEDS: Venlafaxine 75 MG Tab PO SCH ×2 (11:43→20:00)
[2022-02-10] MEDS: Folic Acid 1 MG Tab PO SCH (11:44)
[2022-02-10] MEDS: Lisinopril 10 MG Tab PO SCH (11:44)
[2022-02-10] MEDS: Spironolactone 25 MG Tab PO SCH (11:44)
[2022-02-10] MEDS: Multivitamins with Iron/Calcium/Folic Acid/Minerals Tab PO SCH (11:45)
[2022-02-11] MEDS: Ketorolac 30 MG/ML SDV IVPUSH SCH ×3 (03:01→15:13)
[2022-02-11] MEDS: Acetaminophen 325 MG Tab PO SCH ×5 (03:01→20:55)
[2022-02-11] MEDS: tiZANidine 2 MG Tab PO PRN ×3 (05:49→19:31)
[2022-02-11] MEDS: Buprenorphine/Naloxone 8-2 MG Tab.SL SL SCH ×2 (08:22→19:32)
[2022-02-11] MEDS: Spironolactone 25 MG Tab PO SCH (08:23)
[2022-02-11] MEDS: Buprenorphine/Naloxone 2-0.5 MG Tab.SL SL SCH ×2 (08:23→19:33)
[2022-02-11] MEDS: Cholecalciferol (Vitamin D3) 25 MCG Tab PO SCH (08:23)
[2022-02-11] MEDS: Folic Acid 1 MG Tab PO SCH (08:24)
[2022-02-11] MEDS: levETIRAcetam 250 MG Tab PO SCH ×2 (08:24→20:57)
[2022-02-11] MEDS: Lisinopril 10 MG Tab PO SCH (08:24)
[2022-02-11] MEDS: Multivitamins with Iron/Calcium/Folic Acid/Minerals Tab PO SCH (08:25)
[2022-02-11] MEDS: Venlafaxine 75 MG Tab PO SCH (08:26)
[2022-02-11] MEDS ORDERED: Sodium Chloride 0.9% 1,000 ML IV SCH (11:30)
[2022-02-11] MEDS ORDERED: Magnesium Sulfate/Water 2 GM in Premix Bag 1 BAG IV ONE (12:00)
[2022-02-11] MEDS: VENLAFAXINE 75 MG PO SCH (20:56)
[2022-02-11] MEDS ORDERED: Rosuvastatin 5 MG Tab PO SCH (21:00)
[2022-02-11] MEDS ORDERED: ROSUVASTATIN 5 MG PO SCH (21:00)
[2022-02-12] MEDS: Acetaminophen 325 MG Tab PO SCH ×4 (00:49→11:44)
[2022-02-12] MEDS: tiZANidine 2 MG Tab PO PRN ×3 (01:32→14:04)
[2022-02-12] MEDS ORDERED: Lidocaine 5% 700 MG Patch TRDERM ONE (02:01)
[2022-02-12] MEDS ORDERED: LORazepam 2 MG/ML SDV IVPUSH ONE (03:19)
[2022-02-12] MEDS: Buprenorphine/Naloxone 8-2 MG Tab.SL SL SCH (08:08)
[2022-02-12] MEDS: Buprenorphine/Naloxone 2-0.5 MG Tab.SL SL SCH (08:08)
[2022-02-12] MEDS: VENLAFAXINE 75 MG PO SCH (08:10)
[2022-02-12] MEDS: Cholecalciferol (Vitamin D3) 25 MCG Tab PO SCH (08:11)
[2022-02-12] MEDS: Multivitamins with Iron/Calcium/Folic Acid/Minerals Tab PO SCH (08:11)
[2022-02-12] MEDS: levETIRAcetam 250 MG Tab PO SCH (08:11)
[2022-02-12] MEDS ORDERED: Lisinopril 10 MG Tab (PTOM) PO SCH (09:00)
[2022-02-12] MEDS ORDERED: SPIRONOLACTONE 25 MG PO SCH (09:00)
[2022-02-12] MEDS ORDERED: Folic Acid 1 MG Tab (PTOM) PO SCH (09:00)
[2022-02-12] MEDS ORDERED: Lactated Ringers 1,000 ML IV ONE (11:33)
== END 2022-02-12 14:22 | disposition home or self-care (01) ==
LOC: JP.ED 09:01 → JP.MS 18:40
PROVIDERS: ADMIT Internal Medicine; ATTEND Internal Medicine
DX: G89.4 Chronic pain syndrome (principal); M54.50 Low back pain, unspecified; K50.90 Crohn's disease, unspecified, without complications; D61.818 Other pancytopenia; I12.9 Hypertensive chronic kidney disease with stage 1 through stage 4 chronic kidney disease, or unspecified chronic kidney disease; N18.30 Chronic kidney disease, stage 3 unspecified; E83.42 Hypomagnesemia; G40.909 Epilepsy, unspecified, not intractable, without status epilepticus; G43.909 Migraine, unspecified, not intractable, without status migrainosus; F41.9 Anxiety disorder, unspecified; D64.9 Anemia, unspecified; F32.A Depression, unspecified; S70.02XA Contusion of left hip, initial encounter; W19.XXXA Unspecified fall, initial encounter; Z88.6 Allergy status to analgesic agent; Z88.8 Allergy status to other drugs, medicaments and biological substances; Z86.73 Personal history of transient ischemic attack (TIA), and cerebral infarction without residual deficits; Z90.49 Acquired absence of other specified parts of digestive tract; Z90.09 Acquired absence of other part of head and neck; Z98.890 Other specified postprocedural states; Z20.822 Contact with and (suspected) exposure to COVID-19; Z79.899 Other long term (current) drug therapy
CPT/HCPCS: 36415; 62323; 72131; 72192; 80048; 85025; 85027; 96361; 96374; 96375; 96376; 97140; 97162; 97530; 97535; 99285; A9270; G0378; J0574; J1040; J1170; J1885; J2060; J3475; J3490; J7030; J7120; U0002